=== PATIENT | male | born 1955 | race Caucasian/White ===

== ENCOUNTER → 2017-08-10 09:45 | Outpatient (CLI) | payer BC, SELFPAY ==
[2017-07-10 15:40] VITALS: BP 128/74; BMI 29.9
[2017-08-10 10:30] LABS: Hematocrit 27.5 % (40-54); Hemoglobin 8.9 g/dl (13.0-16.5); Mean Corp Hgb Conc 32.4 g/gl (32-36); Mean Corpuscular Hgb 30.7 pg (27.0-32.0); Mean Corpuscular Volume 94.8 fL (80-94); Mean Platelet Vol. 10.3 fl (6.2-12.0); Platelet Count 256 K/mm3 (150-450); RBC Distribution Width CV 14.3 % (11.6-14.6); RBC Distribution Width SD 46.4 fl (35.1-43.9); White Blood Count 8.4 K/mm3 (4.4-11.0)
[2017-08-10 10:49] LABS: Scan Indicated on CBC? Y/N NO
[2017-08-10 10:56] LABS: Albumin, Serum 3.2 g/dL (3.2-5.0); BUN 73 mg/dL (7-18); BUN/Creat Ratio 10.7 RATIO (10-20); Calcium,Total 8.2 mg/dL (8.5-10.1); Chloride 115 mmol/L (98-107); Creatinine, Serum 6.81 mg/dL (0.70-1.30); EST Glomerular Filtration Rate 9 mL/min (>60); Est Glom Filt Rate - Afr Amer 11 mL/min (>60); Ferritin 62 ng/mL (26-388); Glucose 170 mg/dL (74-106); Iron 33 ug/dL (65-175); Iron Binding Capacity,Total 285 ug/dL (250-450); Phosphorus 4.8 mg/dL (2.5-4.9); Potassium 4.5 mmol/L (3.5-5.1); Sodium Level 145 mmol/L (136-145)
[2017-08-12 09:55] LABS: PTHIN 173.5 pg/mL (18.4-80.1); Vitamin D,25 Hydroxy 30.8 ng/mL (19.95-100.01)
== END ==
PROVIDERS: Family Provider Family Medicine; PCP Family Medicine; Visit Provider Internal Medicine Nephrology
DX: N18.5 Chronic kidney disease, stage 5 (principal); E55.9 Vitamin D deficiency, unspecified; N25.81 Secondary hyperparathyroidism of renal origin; D63.8 Anemia in other chronic diseases classified elsewhere; E87.5 Hyperkalemia
CPT/HCPCS: 36415; 80069; 82306; 82728; 83540; 83550; 83970; 85027

== ENCOUNTER → 2017-08-19 08:47 | Outpatient (CLI) | payer BC, SELFPAY ==
[2017-08-19 08:54] VITALS: BP 178/83; PULSE 67; RESP 16; TEMP 36.7; O2SAT 97; BMI 30.8
== END ==
PROVIDERS: Family Provider Family Medicine; PCP Family Medicine; Visit Provider Internal Medicine Nephrology
DX: N18.5 Chronic kidney disease, stage 5 (principal); D50.9 Iron deficiency anemia, unspecified
CPT/HCPCS: 96365; J1756; J7050; A4216

== ENCOUNTER → 2017-08-26 07:48 | Outpatient (CLI) | payer BC, SELFPAY ==
[2017-08-26 08:04] VITALS: BP 187/85; PULSE 60; RESP 18; TEMP 36.8; O2SAT 97; BMI 31.2
== END ==
PROVIDERS: Family Provider Family Medicine; PCP Family Medicine; Visit Provider Internal Medicine Nephrology
DX: N18.5 Chronic kidney disease, stage 5 (principal); D50.9 Iron deficiency anemia, unspecified; D63.8 Anemia in other chronic diseases classified elsewhere
CPT/HCPCS: 96365; J1756; J7050; A4216

== ENCOUNTER → 2017-09-02 07:53 | Outpatient (CLI) | payer BC, SELFPAY ==
[2017-09-02 08:05] VITALS: BP 194/85; PULSE 59; RESP 18; TEMP 36.4; O2SAT 98; BMI 31.1
== END ==
PROVIDERS: Family Provider Family Medicine; PCP Family Medicine; Visit Provider Internal Medicine Nephrology
DX: N18.5 Chronic kidney disease, stage 5 (principal); D50.9 Iron deficiency anemia, unspecified; D63.8 Anemia in other chronic diseases classified elsewhere
CPT/HCPCS: 96365; J1756; J7050; A4216

== ENCOUNTER → 2017-09-09 07:52 | Outpatient (CLI) | payer BC, SELFPAY ==
[2017-09-09 08:20] VITALS: BP 153/70; PULSE 62; RESP 18; TEMP 36.6; O2SAT 98
== END ==
PROVIDERS: Family Provider Family Medicine; PCP Family Medicine; Visit Provider Internal Medicine Nephrology
DX: N18.5 Chronic kidney disease, stage 5 (principal); D50.9 Iron deficiency anemia, unspecified; D63.8 Anemia in other chronic diseases classified elsewhere
CPT/HCPCS: 96365; J1756; J7050; A4216

== ENCOUNTER 2017-09-10 05:46 | Outpatient (RCR) | payer BC, SELFPAY ==
[2017-09-10 07:54] LABS: Albumin, Serum 3.3 g/dL (3.2-5.0); BUN 88 mg/dL (7-18); BUN/Creat Ratio 11.7 RATIO (10-20); Calcium,Total 7.8 mg/dL (8.5-10.1); Chloride 112 mmol/L (98-107); Creatinine, Serum 7.54 mg/dL (0.70-1.30); EST Glomerular Filtration Rate 8 mL/min (>60); Est Glom Filt Rate - Afr Amer 10 mL/min (>60); Ferritin 303 ng/mL (26-388); Glucose 138 mg/dL (74-106); Iron 219 ug/dL (65-175); Iron Binding Capacity,Total 273 ug/dL (250-450); Phosphorus 5.9 mg/dL (2.5-4.9); Potassium 3.9 mmol/L (3.5-5.1); Sodium Level 144 mmol/L (136-145)
[2017-09-11 10:12] LABS: PTHIN 261.5 pg/mL (18.4-80.1)
== END 2017-09-10 06:00 | disposition home or self-care (01) ==
LOC: LAB 05:46
PROVIDERS: Family Provider Family Medicine; PCP Family Medicine; Visit Provider Internal Medicine Nephrology
DX: N18.5 Chronic kidney disease, stage 5 (principal); N25.81 Secondary hyperparathyroidism of renal origin; D63.8 Anemia in other chronic diseases classified elsewhere
CPT/HCPCS: 36415; 80069; 82728; 83540; 83550; 83970; J3010

== ENCOUNTER 2017-09-11 09:59 | Day surgery (SDC) | payer BC, SELFPAY ==
--- NOTE | 2017-09-09 13:30 | EKG12_ITS ---
Test Reason : PREOP Blood Pressure : / mmHG Vent. Rate : 068 BPM Atrial Rate : 068 BPM P-R Int : 162 ms QRS Dur : 098 ms QT Int : 464 ms P-R-T Axes : 057 030 056 degrees QTc Int : 493 ms Normal sinus rhythm Nonspecific T wave abnormality Prolonged QT Abnormal ECG Confirmed by LEONARDO LYNCH, AMPARO ([id number]), digital editor LEDY SAMPSON ([id number]) on 09/10/2017 2:23:47 PM Referred By: Benjamín Espino Confirmed By:AMPARO PATTERSON MD
[2017-09-09 15:07] LABS: Hematocrit 27.7 % (40-54); Hemoglobin 9.1 g/dl (13.0-16.5); Mean Corp Hgb Conc 32.9 g/gl (32-36); Mean Corpuscular Hgb 30.6 pg (27.0-32.0); Mean Corpuscular Volume 93.3 fL (80-94); Mean Platelet Vol. 10.9 fl (6.2-12.0); Platelet Count 220 K/mm3 (150-450); RBC Distribution Width CV 13.1 % (11.6-14.6); RBC Distribution Width SD 43.8 fl (35.1-43.9); Red Blood Count 2.97 M/mm3 (4.6-6.2); White Blood Count 7.5 K/mm3 (4.4-11.0)
[2017-09-09 15:11] LABS: Scan Indicated on CBC? Y/N NO
[2017-09-09 15:30] LABS: Anion Gap 15 (5-15); BUN 90 mg/dL (7-18); BUN/Creat Ratio 11.9 RATIO (10-20); Calcium,Total 7.8 mg/dL (8.5-10.1); Chloride 111 mmol/L (98-107); Creatinine, Serum 7.55 mg/dL (0.70-1.30); EST Glomerular Filtration Rate 8 mL/min (>60); Est Glom Filt Rate - Afr Amer 9 mL/min (>60); Glucose 147 mg/dL (74-106); Potassium 3.9 mmol/L (3.5-5.1); Sodium Level 145 mmol/L (136-145)
[2017-09-11] VITALS (7 sets, daily range): BP systolic 148–168; BP diastolic 66–80; PULSE 63; RESP 16; TEMP 36.4–37.2; O2SAT 95–100; BMI 30.3
[2017-09-11 10:51] LABS: Bedside Glucose 125 mg/dL (70-110)
--- NOTE | 2017-09-11 11:55 | PCM.DC.FIST ---
Discharge Diet: Renal Diet Discharge Activity: May Not Drive - for 2-3 days or while taking narcotic pain medications., May Shower, May Take a Tub Bath - in 5 days. Lifting Restrictions: 5 pounds Keep extremity elevated above heart level: - - Keep arm elevated above the heart level for 3 days. Additional Activity Instructions:: Exercise hand vigorously with a stress ball. Call your doctor if your incision/area has: Continuous Slow Oozing, Sudden Increased Bleeding - apply pressure and call your doctor., Increased Pain/ Swelling, Increased Redness, Foul Smelling Discharge Call your doctor if you observe: Fever of 101 or Higher Suture Line Care: Avoid Pulling/Pushing, Avoid Pinching/Bending Cleanse incision/area with: Keep Dressing Clean & Dry Additional Dressing/Incision Instructions:: Change or remove dressing in two day. May protect with a gauze bandaid. Allergies/Adverse Reactions: Allergies metformin Allergy (Verified 09/09/17 11:45) Itching Sulfa (Sulfonamide Antibiotics) Allergy (Verified 09/09/17 11:45) Swelling Medications to take at Discharge Insulin Glargine [Lantus SoloStar Pen] 28 units SC DAILY 04/07/13 calcitriol 0.25 mcg capsule 0.25 mcg PO QDAY 07/10/17 finasteride 5 mg tablet 5 mg PO QDAY 07/10/17 furosemide 20 mg tablet 40 mg PO BID 07/10/17 labetalol 100 mg tablet 400 mg PO BID 07/10/17 losartan 50 mg tablet 100 mg PO QDAY 07/10/17 rosuvastatin 10 mg tablet 10 mg PO QDAY 07/10/17 Ergocalciferol [Vitamin D] 50,000 unit PO X1 08/19/17 Insulin Lispro [Humalog] 10 - 12 unit SC BID 08/19/17 Iron Polysaccharide Complex [Ferrex 150] 150 mg PO DAILYCM 08/19/17 Iron Sucrose Complex [Venofer] 100 mg IV X1 09/09/17 Nifedipine [Nifedipine ER] 60 mg PO DAILY 09/09/17 Primary Care Physician: Roman Espino III, MD [Primary Care Provider] - Please Follow Up With: Benjamín Espino MD - [phone] When: Call to make an appointment for suture removal and follow up in 10 days.
[2017-09-11] MEDS: Cefazolin 2 GM in 0.9% Normal Saline 100 ML IV (11:56)
[2017-09-11] MEDS: Bupivacaine Mpf 0.5% 30 ML VIAL (12:21)
--- NOTE | 2017-09-11 13:45 | OP.PCM_ITS ---
Problem List (1) Renal failure Status: Acute Qualifiers: Renal failure chronicity: chronic Chronic kidney disease stage: stage 4 ( severe) Qualified Code(s): N18.4 - Chronic kidney disease, stage 4 (severe) Report of Operation Date of Procedure: 09/11/17 Pre-Operative Diagnosis: Stage IV renal insufficiency Post-Operative Diagnosis: Same Surgery/Procedure Performed:: Left forearm radiocephalic arteriovenous fistula creation Description of Surgical Findings:: Timeout and informed consent was obtained. A 62-year-old gent was taken out from. He was placed on the table. He initially underwent monitored anesthesia care. Due to restlessness that was eventually converted to a general anesthesia. Left upper extremity was sterilely prepped and draped. Ancef 2 g given intravenous preoperatively. 1% lidocaine mixed 50-50 with 0.5% Marcaine was used as local anesthetic. Total 10 cc was used. Ultrasound was used to map the course of the left forearm cephalic vein. Local was instilled. A transverse oblique incision was created. Sharp blunt dissection was used to dissect free the cephalic vein. It was partially mobilized to allow for more superficial elevation. Then sharp and blunt dissection was used to identify the radial artery. Circumferential control was obtained. The patient received also needs of heparin IV. After adequate circling time peripheral vascular clamps are placed on the radial artery and 11 blade was used to make an arteriotomy which was extended with Dugan scissors. The vein was secured distally with a Hemoclip and then it was spatulated to length. A end-to-side anastomosis was created with a running 7-0 Prolene. Prior to completion there appear to be good antegrade and retrograde flow. The anastomosis was completed with good positional lie. There was a good pulse thrill and bruit. Hemostasis was intact. The wound was closed with deep layer of interrupted 4-0 Vicryl. Skin edges approximately running septic or 4-0 Monocryl. Steri-Strips Telfa tape dressings applied. Sponge instrument and needle counts were reported to the surgeon to be correct. Blood loss minimal. No apparent complications. The hand was viable at the completion. He was taken to the recovery area in satisfactory condition without apparent complication. Progress and prognosis are felt to be good. Benjamín Espino M.D., F.A.C.S. Type of Anesthesia:: General Anesthesiologist: Nikolas Morales
[2017-09-11 14:20] LABS: Bedside Glucose 109 mg/dL (70-110)
== END 2017-09-11 15:44 | disposition home or self-care (01) ==
LOC: SDC 09:59 → AC 10:00
PROVIDERS: Family Provider Family Medicine; PCP Family Medicine; Visit Provider Surgery
PROC: (CPT 36818; principal; 2017-09-11 11:45)
DX: I12.0 Hypertensive chronic kidney disease with stage 5 chronic kidney disease or end stage renal disease (principal); E11.22 Type 2 diabetes mellitus with diabetic chronic kidney disease; N18.6 End stage renal disease; D64.9 Anemia, unspecified; R45.1 Restlessness and agitation; Z99.2 Dependence on renal dialysis; Z79.4 Long term (current) use of insulin; Z79.899 Other long term (current) drug therapy; Z87.891 Personal history of nicotine dependence
CPT/HCPCS: 01780; 36818; 36415; 80048; 82962; 85027; 93005; J7120

== ENCOUNTER → 2017-09-16 07:55 | Outpatient (CLI) | payer BC, SELFPAY ==
[2017-09-16 08:08] VITALS: BP 160/73; PULSE 58; RESP 18; TEMP 36.6; O2SAT 97
== END ==
PROVIDERS: Family Provider Family Medicine; PCP Family Medicine; Visit Provider Internal Medicine Nephrology
DX: N18.5 Chronic kidney disease, stage 5 (principal); D50.9 Iron deficiency anemia, unspecified; D63.8 Anemia in other chronic diseases classified elsewhere
CPT/HCPCS: 96365; J1756; J7050; A4216

== ENCOUNTER 2017-09-30 06:07 | Day surgery (SDC) | payer BC, SELFPAY ==
--- NOTE | 2017-09-30 | COLBX_PTH ---
PATIENT: RODRI HECK LOC: EN U#:[id number] AGE/SX: 62/M ROOM: RE09/30/[address]: Dr. Benjamín Epsino MD : [id number] BED: DIS: 09/30/2017 SPEC #: [id number] RECD: 09/30/17 11:41 STATUS: JOSIE RAYMOND #: [id number] MOE: 09/30/17 00:[address]: Benjamín Espino DEPT: SURGICAL PATHOLOGY RECD BY: Juan Major ENTERED: 09/30/17 11:42 SP TYPE: COLON BX RAFY DR: Dr. Roman Espino III, MD Tissues: A - Transverse colon B - SPLENIC FLEXURE Procedures: Surgery Specimen Level IV HEADER OPERATION: Colonoscopy with biopsy and polypectomy PRE-OP DIAGNOSIS: Screening TISSUE SUBMITTED: A ? Proximal transverse polyp biopsy, B ? Splenic flexure polyp MICROSCOPIC DIAGNOSIS A. Proximal transverse polyp, biopsy: Consistent with inflammatory polyp. B. Splenic flexure polyp, biopsy: Tubular adenoma. BRI:ignacia 10/01/17 MICROSCOPIC DESCRIPTION Slides are reviewed. GROSS DESCRIPTION A - Received in fixative is one container labeled with the patient's name and designated proximal transverse polyp biopsy. The specimen consists of two irregular fragments of light gamble soft tissue that in aggregate measure 0.4 x 0.3 x 0.1 cm. The specimen is totally submitted in one cassette. B - Received in fixative is one container labeled with the patient's name and designated splenic flexure polyp. The specimen consists of two irregular fragments of light gamble soft tissue that in aggregate measure 0.7 x 0.3 x 0.1 cm. The specimen is totally submitted in one cassette. / BRI:ignacia 09/30/17 TC:1 CPT: 24459 x2
[2017-09-30 06:27] VITALS: BP 156/66; PULSE 57; RESP 16; TEMP 36.9; O2SAT 100; BMI 30.7
[2017-09-30 06:35] LABS: Bedside Glucose 111 mg/dL (70-110)
--- NOTE | 2017-09-30 07:57 | PCM.OPRPT ---
Problem List (1) Screening for intestinal cancer Status: Acute Report of Operation Date of Procedure: 09/30/17 Pre-Operative Diagnosis: Screening for intestinal cancer Post-Operative Diagnosis: Small sessile polyp of the proximal transverse colon. 9 mm sessile polyp of the splenic flexure. Scattered sigmoid diverticulosis Surgery/Procedure Performed:: Colonoscopy with cold forcep and hot snare polypectomy Description of Surgical Findings:: Timeout and informed consent was obtained. 62-year-old gent was taken to the endoscopy suite. He has never had a previous colonoscopy. He was placed in left lateral decubitus position. Because of his renal failure monitored anesthesia care was provided. Digital rectal exam demonstrated a moderate grade 2 internal hemorrhoids. 2+ smooth prostate. No mass lesions. Normal anal tone. Flexible colonoscope inserted in the rectum advanced with tortuous sigmoid colon was then advanced through the transverse colon with some transabdominal pressure was advanced to the cecum. Bowel prep was good. The cecum ileocecal valve area was nicely achieved. The scope was carefully withdrawn from the cecum ascending colon. In the proximal transverse colon there is a small 6 mm diameter polyp. This was sampled and eradicated with cold forceps. The scope was advanced and back through the remainder of the transverse colon and what was felt to be the splenic flexure a 9 mm sessile polyp was identified. A hot snare was used to resect this polyp. The base was treated with a hemostatic clip. The scope was further withdrawn. Scattered diverticulosis of the sigmoid colon noted. No evidence of acute pathology. The scope was withdrawn to the rectum retroflex the anorectal verge inspected grade 2 hemorrhoids noted no active bleeding. The scope was placed back in antegrade viewing position and excess fluid and air was aspirated free. The procedure was pleased with patient tolerating it well. Impression Sessile polyp of the proximal transverse colon Sessile polyp of the splenic flexure Scattered sigmoid diverticulosis Grade 2 internal hemorrhoids The patient will be notified of pathology results as they become available.. Follow-up colonoscopy anticipated in 3 years. Cc: Dr. Roman Espino, III The procedure started 0733. The cecum was reached at 0741.51. Procedure was completed at 0752.59 Benjamín Espino M.D., F.A.C.S. Type of Anesthesia:: MAC Anesthesiologist: Sadia Kathleen
[2017-09-30 08:00] VITALS: BP 125/62; BP 156/66; PULSE 61; RESP 16; TEMP 36.9; O2SAT 97
[2017-09-30 08:04] VITALS: BP 130/55; BP 156/66; PULSE 61; RESP 16; O2SAT 98
[2017-09-30 08:10] VITALS: BP 148/72; BP 156/66; PULSE 61; RESP 16; O2SAT 99
[2017-09-30 08:15] VITALS: BP 147/72; BP 156/66; PULSE 61; RESP 16; TEMP 37.3; O2SAT 98
[2017-09-30 08:40] VITALS: BP 156/66
== END 2017-09-30 08:52 | disposition home or self-care (01) ==
LOC: EN 06:08 → AC 06:09
PROVIDERS: Family Provider Family Medicine; PCP Family Medicine; Visit Provider Surgery
PROC: 0DJD8ZZ Inspection of Lower Intestinal Tract, Via Natural or Artificial Opening Endoscopic (ICD-10-PCS; CPT 45378; principal; 2017-09-30 07:10)
DX: Z12.11 Encounter for screening for malignant neoplasm of colon (principal); D12.3 Benign neoplasm of transverse colon; K63.5 Polyp of colon; K57.30 Diverticulosis of large intestine without perforation or abscess without bleeding; K64.1 Second degree hemorrhoids; I12.9 Hypertensive chronic kidney disease with stage 1 through stage 4 chronic kidney disease, or unspecified chronic kidney disease; E10.22 Type 1 diabetes mellitus with diabetic chronic kidney disease; N18.4 Chronic kidney disease, stage 4 (severe); Z99.2 Dependence on renal dialysis; E10.65 Type 1 diabetes mellitus with hyperglycemia; E78.00 Pure hypercholesterolemia, unspecified; Z79.4 Long term (current) use of insulin; Z79.899 Other long term (current) drug therapy
CPT/HCPCS: 45380; 45385; 82962; 88305; J7120

== ENCOUNTER → 2017-10-07 05:48 | Outpatient (CLI) | payer OTHER, SELFPAY ==
[2017-10-07 08:07] LABS: AST(SGOT) 17 U/L (15-37); Alanine Aminotransfer ALT/SGPT 15 U/L (16-61); Albumin, Serum 3.5 g/dL (3.2-5.0); Alkaline Phosphatase 72 U/L (45-117); Anion Gap 11 (5-15); BUN 75 mg/dL (7-18); BUN/Creat Ratio 9.7 RATIO (10-20); Calcium,Total 8.5 mg/dL (8.5-10.1); Chloride 111 mmol/L (98-107); Cholesterol 126 mg/dL (200); Creatinine, Serum 7.77 mg/dL (0.70-1.30); EST Glomerular Filtration Rate 8 mL/min (>60); Est Glom Filt Rate - Afr Amer 9 mL/min (>60); Globulin 3.5 g/dL (2.2-4.2); Glucose 113 mg/dL (74-106); High Density Lipoprotein 41 mg/dL; Potassium 4.6 mmol/L (3.5-5.1); Sodium Level 145 mmol/L (136-145); Triglycerides 84 mg/dL; Very Low Density Lipoprotein 17 mg/dL (5-40)
[2017-10-07 09:00] LABS: Vitamin D,25 Hydroxy 49.4 ng/mL (29.95-100.01)
[2017-10-07 10:02] LABS: Hemoglobin A1c 6.3 % (4.2-6.3)
== END ==
PROVIDERS: Family Provider Family Medicine; PCP Family Medicine; Visit Provider Internal Medicine Endocrinology, Diabetes & Metabolism
DX: E11.39 Type 2 diabetes mellitus with other diabetic ophthalmic complication (principal); E11.65 Type 2 diabetes mellitus with hyperglycemia
CPT/HCPCS: 36415; 80053; 80061; 82306; 83036

== ENCOUNTER 2017-10-30 08:23 | Day surgery (SDC) | payer OTHER, SELFPAY ==
[2017-10-23 07:42] LABS: Hematocrit 29.7 % (40-54); Hemoglobin 9.6 g/dl (13.0-16.5); Mean Corp Hgb Conc 32.3 g/gl (32-36); Mean Corpuscular Hgb 30.2 pg (27.0-32.0); Mean Corpuscular Volume 93.4 fL (80-94); Platelet Count 213 K/mm3 (150-450); RBC Distribution Width CV 13.5 % (11.6-14.6); RBC Distribution Width SD 44.5 fl (35.1-43.9); Red Blood Count 3.18 M/mm3 (4.6-6.2); White Blood Count 8.6 K/mm3 (4.4-11.0)
[2017-10-23 07:45] LABS: Scan Indicated on CBC? Y/N NO
[2017-10-23 08:29] LABS: Albumin, Serum 3.2 g/dL (3.2-5.0); BUN 104 mg/dL (7-18); BUN/Creat Ratio 11.1 RATIO (10-20); Calcium,Total 8.3 mg/dL (8.5-10.1); Chloride 110 mmol/L (98-107); Creatinine, Serum 9.37 mg/dL (0.70-1.30); EST Glomerular Filtration Rate 6 mL/min (>60); Est Glom Filt Rate - Afr Amer 7 mL/min (>60); Glucose 109 mg/dL (74-106); Phosphorus 6.7 mg/dL (2.5-4.9); Potassium 4.5 mmol/L (3.5-5.1); Sodium Level 145 mmol/L (136-145)
[2017-10-23 09:08] LABS: PTHIN 164.7 pg/mL (18.4-80.1)
[2017-10-30 08:36] VITALS: BMI 32.3
--- NOTE | 2017-10-30 10:39 | OP.PCM_ITS ---
Problem List (1) Problem with dialysis access Status: Acute Qualifiers: Encounter type: subsequent encounter Qualified Code(s): T82.898D - Other specified complication of vascular prosthetic devices, implants and grafts, subsequent encounter Report of Operation Date of Procedure: 10/30/17 Pre-Operative Diagnosis: Failure to mature left forearm radiocephalic arteriovenous hemodialysis fistula Post-Operative Diagnosis: Left forearm radiocephalic arteriovenous fistula with proximal fistula venous stenosis Surgery/Procedure Performed:: Left upper extremity fistulogram with 5 x 80 mm drug coated balloon Lutonix proximal fistula venous angioplasty Description of Surgical Findings:: Timeout and informed consent was obtained. 62-year-old gentleman was taken to the special procedures lab placed on the table. The left upper extremity was sterilely prepped and draped. Ultrasound was used to identify the cephalic vein in the proximal forearm. Under ultrasound guidance 2% lidocaine was instilled. Micropuncture needle inserted retrograde with flow. Micropuncture wire inserted. 6 Maltese short sheath was inserted. Then using an 035 angled Glidewire and a 4 Maltese angled glide cath tediously [place] was gained to the radial artery proximal to the fistula. Using carbon dioxide 50 g was obtained. This demonstrated moderate to proximal arterial stenosis at the anastomosis and diffuse diminutive vein in the proximal 3-4 cm of the fistula. So then I replaced the Glidewire and removed the glide cath. I placed a 5 x 80 mm blue tonics drug-coated balloon and perform balloon angioplasty for 3 minutes. Subsequently removed the balloon and replaced a glide cath. Final fistulogram was obtained with carbon dioxide now demonstrated dramatic improvement in the arterial anastomosis and in the proximal portion of the fistula with wide open flow. Using carbon dioxide the fistulogram was pursued for the upper arm and chest area. He tired procedure well catheters wires were removed the sheath was removed and a U suture of 4-0 nylon was placed. Hemostasis was intact there were no apparent complications and he tolerated it well. Images demonstrate a left forearm radiocephalic arteriovenous fistula. There is arterial stenosis and proximal venous diminutive vein. There is good outflow mostly in the upper arm through the basilic vein with good central venous outflow. Subsequent to the angioplasty there is improvement in the arterial anastomosis and diameter of the proximal portion of the cephalic vein/ fistula. Impression Successfully treated left forearm radiocephalic arteriovenous fistula with improved inflow and proximal fistula diameter Benjamín Espino M.D., F.A.C.S. Type of Anesthesia:: IV Sedation
== END 2017-10-30 23:59 | disposition home or self-care (01) ==
LOC: CLSP 08:23
PROVIDERS: Family Provider Family Medicine; PCP Family Medicine; Visit Provider Surgery
DX: T82.898A Other specified complication of vascular prosthetic devices, implants and grafts, initial encounter (principal); Y82.8 Other medical devices associated with adverse incidents; Z79.899 Other long term (current) drug therapy; Z79.4 Long term (current) use of insulin; E78.00 Pure hypercholesterolemia, unspecified; E11.9 Type 2 diabetes mellitus without complications; I10 Essential (primary) hypertension
CPT/HCPCS: 36415; 36902; 76937; 80069; 83970; 85027; 99152; 99153; Q9967; C1725; C1769

== ENCOUNTER → 2017-10-31 09:46 | Outpatient (CLI) | payer OTHER, SELFPAY ==
[2017-11-01 11:29] LABS: HEPATITIS B SURFACE AG Negative (Negative); Hep B Surface Antibodies Non Reactive (.)
== END ==
PROVIDERS: Family Provider Family Medicine; PCP Family Medicine; Visit Provider Internal Medicine Nephrology
DX: N18.6 End stage renal disease (principal)
CPT/HCPCS: 36415; 86706; 87340

== ENCOUNTER 2017-10-31 15:05 | Inpatient (IN) | payer OTHER, SELFPAY ==
[2017-10-31] VITALS (8 sets, daily range): BP systolic 97–155; BP diastolic 45–73; PULSE 41–70; RESP 12–18; TEMP 36.2–36.8; O2SAT 94–97; BMI 32.8; BMI 32.9
--- NOTE | 2017-10-31 15:22 | RAD_ITS ---
STUDY: X-RAY CHEST REASON FOR EXAM: Male, 62 years old. HYPOTENSION, WEAKNESS, STAGE 4 KIDNEY DISEASE, JUST HAD A BALLOON AND FISTULA PLACED YESTERDAY PER TECHNIQUE: Single frontal view of the chest. COMPARISON: 06.06.15 FINDINGS: Chronic appearing increased interstitial lung markings. There is no demonstrated pleural abnormality. Enlarged heart size. Normal mediastinum and nader. Normal visualized pulmonary arteries. There is atherosclerotic calcification of the aortic arch with tortuosity. There are diffuse degenerative changes of the visualized thoracic spine. There is degenerative osteoarthritis of the bilateral shoulders. There is no demonstrated abnormality of the visualized soft tissue structures of the upper abdomen. RAD/Chest 1 View (Portable) IMPRESSION: There are no acute findings. Electronically Signed: Corky Buckley MD at 16:53 EDT , Service support ,
--- NOTE | 2017-10-31 15:22 | EKG12_ITS ---
Test Reason : BRADYCARIDA Blood Pressure : / mmHG Vent. Rate : 039 BPM Atrial Rate : 039 BPM P-R Int : 144 ms QRS Dur : 096 ms QT Int : 534 ms P-R-T Axes : -71 031 024 degrees QTc Int : 429 ms Unusual P axis, possible ectopic atrial bradycardia Abnormal ECG Confirmed by SHARMAINE MENDEZ ([id number]), content editor LEDY SAMPSON ([id number]) on 11/05/2017 2:46:05 PM Referred By: FEDE Confirmed By:SHARMAINE MENDEZ
--- NOTE | 2017-10-31 15:25 | ED.VISSUMM ---
- ER Visit Summary Date of Service: 10/31/17 Chief Complaint: Low blood pressure History of Present Illness: The patient is a 62 M sent as an outpatient from both nephrology and PCP office for low blood pressure. Patient history of chronic kidney disease, and preparations for dialysis. History of diabetes and hypertension, anemia, chronic kidney disease. Fistula left arm placed September 11. Yesterday had a balloon placed by Dr. Espino. Patient states had a referral seen by cardiology, Dr. Nation at 8 days ago for planned clearance for eventual renal transplant. States his blood pressure was systolic 170s. Had his nifedipine increased from 60-90 mg a week ago. Last dose taken this morning. While at the office, blood pressures in the 90s. They did state heart rate was low but unclear what the number was. He complains of lightheaded symptoms. No syncopal episodes. No chest pains. Complains of mild dyspnea. No recent vomiting or diarrhea. Denies any dizzy sensations. Normal urine output per patient. Physical Examination: General: Alert and oriented ?3, no acute distress HEENT: Normocephalic, atraumatic. Moist mucosa membranes. Mild pale conjunctiva Neck: supple, nontender. Cardiovascular: Regular bradycardic rate and rhythm, no murmurs Respiratory: Normal breath sounds, symmetric, no distress Abdomen: Soft, nontender, nondistended Extremities: Nontender, 1+ symmetric lower extremity edema, pulses intact ?4 Neuro: no focal neurological deficits. Test Results: EKG: Sinus rate of 39, no ST changes. T-wave flattening at 3 and aVF. No AV blocks noted. Hemoglobin 9.3. Creatinine 9.39, BUN 104. Hemolyzed potassium 5.6, recheck 5.2. Chest x-ray negative. Emergency Department Course and Treatment: Patient with sinus bradycardia on EKG. Recently placed on the monitor, no interventions, steady increase in heart rate and blood pressure increase on his nifedipine which is renally excreted. Also on labetalol.. Concerns for likely nifedipine. Chronic anemia along with chronic elevation of creatinine and BUN. Symptomatic bradycardia, I do feel the benefit from admission and monitoring. I did speak with his storyboard artist, Dr. Rodriguez, updated, she is more concerned of possible labetalol. She did request I speak with Dr. Espino, the surgeon if you be available to place a Vas-Cath for dialysis with his history and plans. I did speak with him, he will like patient n.p.o. at midnight, he will check surgery scheduled tomorrow for placement if able. This was relayed to hospitalist, Dr. Vail who will evaluate for admission. Treatment Plan: [] Disposition: Admission Impression: 1. Symptomatic bradycardia 2. Chronic anemia 3. Chronic kidney disease This note was generated with Flowboard dictation software. It may contain incorrect words, spelling, and punctuation that were not noted in review of the chart prior to signing ED Disposition - Plan for ED Patient: Disposition: Acute Care Hospital [facility] Chief Complaint: Hypotension Diagnosis: Symptomatic bradycardia, Chronic anemia, Chronic kidney disease
--- NOTE | 2017-10-31 15:28 | ED.DCSUM_ITS ---
- ER Visit Summary Date of Service: 10/31/17 Chief Complaint: Low blood pressure History of Present Illness: The patient is a 62 M sent as an outpatient from both nephrology and PCP office for low blood pressure. Patient history of chronic kidney disease, and preparations for dialysis. History of diabetes and hypertension, anemia, chronic kidney disease. Fistula left arm placed September 11. Yesterday had a balloon placed by Dr. Espino. Patient states had a referral seen by cardiology, Dr. Nation at 8 days ago for planned clearance for eventual renal transplant. States his blood pressure was systolic 170s. Had his nifedipine increased from 60-90 mg a week ago. Last dose taken this morning. While at the office, blood pressures in the 90s. They did state heart rate was low but unclear what the number was. He complains of lightheaded symptoms. No syncopal episodes. No chest pains. Complains of mild dyspnea. No recent vomiting or diarrhea. Denies any dizzy sensations. Normal urine output per patient. Physical Examination: General: Alert and oriented ?3, no acute distress HEENT: Normocephalic, atraumatic. Moist mucosa membranes. Mild pale conjunctiva Neck: supple, nontender. Cardiovascular: Regular bradycardic rate and rhythm, no murmurs Respiratory: Normal breath sounds, symmetric, no distress Abdomen: Soft, nontender, nondistended Extremities: Nontender, 1+ symmetric lower extremity edema, pulses intact ?4 Neuro: no focal neurological deficits. Test Results: EKG: Sinus rate of 39, no ST changes. T-wave flattening at 3 and aVF. No AV blocks noted. Hemoglobin 9.3. Creatinine 9.39, BUN 104. Hemolyzed potassium 5.6, recheck 5.2. Chest x-ray negative. Emergency Department Course and Treatment: Patient with sinus bradycardia on EKG. Recently placed on the monitor, no interventions, steady increase in heart rate and blood pressure increase on his nifedipine which is renally excreted. Also on labetalol.. Concerns for likely nifedipine. Chronic anemia along with chronic elevation of creatinine and BUN. Symptomatic bradycardia, I do feel the benefit from admission and monitoring. I did speak with his electronics lead, Dr. Rodriguez, updated, she is more concerned of possible labetalol. She did request I speak with Dr. Espino, the surgeon if you be available to place a Vas-Cath for dialysis with his history and plans. I did speak with him , he will like patient n.p.o. at midnight, he will check surgery scheduled tomorrow for placement if able. This was relayed to hospitalist, Dr. Vail who will evaluate for admission. Treatment Plan: [] Disposition: Admission Impression: 1. Symptomatic bradycardia 2. Chronic anemia 3. Chronic kidney disease This note was generated with Ed[employer]ourage dictation software. It may contain incorrect words, spelling, and punctuation that were not noted in review of the chart prior to signing ED Disposition - Plan for ED Patient: Disposition: Acute Care Hospital [facility] Chief Complaint: Hypotension Diagnosis: Symptomatic bradycardia, Chronic anemia, Chronic kidney disease
[2017-10-31 15:56] LABS: Hematocrit 30.3 % (40-54); Hemoglobin 9.3 g/dl (13.0-16.5); Mean Corp Hgb Conc 30.7 g/gl (32-36); Mean Corpuscular Hgb 29.4 pg (27.0-32.0); Mean Corpuscular Volume 95.9 fL (80-94); Red Blood Count 3.16 M/mm3 (4.6-6.2); White Blood Count 8.9 K/mm3 (4.4-11.0)
[2017-10-31 15:57] LABS: Mean Platelet Vol. 9.9 fl (6.2-12.0); Platelet Count 222 K/mm3 (150-450); RBC Distribution Width CV 13.9 % (11.6-14.6); RBC Distribution Width SD 48.1 fl (35.1-43.9)
[2017-10-31 15:59] LABS: Basophil% 0.2 % (0-1); Differential Indicated SCAN CRITERIA MET; Eosinophils% 2.4 % (0-5); Lymphocyte % 11.3 % (19-41); Monocyte% 8.4 % (0-10); Neutrophil % 77.5 % (47-70); POSITIVE COUNT NO; POSITIVE DIFFERENTIAL NO; POSITIVE MORPHOLOGY YES
[2017-10-31 16:00] LABS: Absolute Lymphocyte Count 1.01 X10^3/ul (0.83-4.51); Absolute Neutrophil Count 6.9 X10^3/uL (2.0-7.7); Basophil# 0.02 X10^3/uL; Eosinophil# 0.21 X10^3/uL; Lymphocyte # 1.01 X10^3/ul (4.0); Monocyte# 0.75 X10^3/uL; Neutrophil # 6.91 X10^3/uL (2.7-7.7)
[2017-10-31 16:25] LABS: Anisocytosis RARE; Macrocytosis RARE; Platelet Estimate ADEQUATE (ADEQ)
[2017-10-31 16:44] LABS: Anion Gap 12 (5-15); BUN 104 mg/dL (7-18); BUN/Creat Ratio 11.1 RATIO (10-20); Chloride 106 mmol/L (98-107); Creatinine, Serum 9.39 mg/dL (0.70-1.30); EST Glomerular Filtration Rate 6 mL/min (>60); Est Glom Filt Rate - Afr Amer 7 mL/min (>60); Estimated Creatinine Clearance 11.77 ml/min; Glucose 214 mg/dL (74-106); Magnesium 1.8 mg/dL (1.6-2.6); Potassium 5.6 mmol/L (3.5-5.1); Sodium Level 140 mmol/L (136-145)
--- NOTE | 2017-10-31 16:49 | ED.RN ---
notified Dr. Molina of critical labs results.
[2017-10-31 17:13] LABS: Potassium 5.2 mmol/L (3.5-5.1)
--- NOTE | 2017-10-31 17:20 | PCM.HP.STD ---
Problem List (1) Problem with dialysis access Status: Chronic Qualifiers: (2) Screening for intestinal cancer Status: Resolved (3) History of angioplasty of peripheral vessel Status: Chronic (4) Renal failure Status: Chronic Qualifiers: Chronic kidney disease stage: stage 4 (severe) (5) Essential hypertension Status: Chronic (6) Type II diabetes mellitus Status: Chronic (7) Hypercholesterolemia Status: Chronic (8) Anemia Status: Chronic Qualifiers: Anemia type: due to chronic kidney disease (9) Open fracture at right wrist or hand level Status: Resolved History of Present Illness Date of Admission: 10/31/17 Chief Complaint: Hypotension, bradycardia, dizziness, weakness. The patient is a 62 year old M who presents to the emergency room due to low blood pressure which was noted during office visit today with patient's hotel housekeeper, Dr. Rodriguez. Patient states he has not felt well today and complains of dizziness, lightheadedness, generalized weakness. Patient has chronic kidney disease stage IV and is currently undergoing evaluation for renal transplant. Patient had a left forearm AV fistula placed 09/11/[address] Espino. He then had left upper extremity fistulogram with balloon angioplasty again, with Dr. Espino 10/30/17. Patient states his blood pressure is usually elevated and his nifedipine was increased approximately a week ago from 60-90 mg. A waiter/waitress cabin class, Dr. Nation at made this adjustment who patient is seeing for pre-transplant evaluation/clearance. His blood pressure during office visit today was noted to be in the 90s systolically. Patient's other chronic medical history includes hypertension, hyperlipidemia, type 2 diabetes mellitus, anemia of chronic disease, BPH status post TURP. Past Medical History Past Medical History (Chronic Problems): Chronic Problems (Last Reviewed 10/31/17 @ 14:38 by Ira Yusuf) Problem with dialysis access (Chronic) History of angioplasty of peripheral vessel (Chronic) Renal failure (Chronic) Essential hypertension (Chronic) Type II diabetes mellitus (Chronic) Hypercholesterolemia (Chronic) Anemia (Chronic) Allergies metformin Allergy (Verified 10/31/17 14:40) Itching Sulfa (Sulfonamide Antibiotics) Allergy (Verified 10/31/17 14:40) Swelling Home Medications: Ambulatory Orders Medication Instructions Recorded Insulin Glargine [Lantus SoloStar 26 units SC DAILY 04/07/13 Pen] calcitriol 0.25 mcg capsule 0.5 mcg PO DAILY 07/10/17 finasteride 5 mg tablet 5 mg PO DAILY 07/10/17 furosemide 20 mg tablet 40 mg PO BID 07/10/17 labetalol 100 mg tablet 400 mg PO BID 07/10/17 losartan 50 mg tablet 100 mg PO DAILY 07/10/17 rosuvastatin 10 mg tablet 10 mg PO DAILY 07/10/17 Ergocalciferol [Vitamin D] 50,000 unit PO QMONTH 08/19/17 Insulin Lispro [Humalog] 10 - 12 unit SC BID 08/19/17 Iron Polysaccharide Complex 150 mg PO DAILYCM 08/19/17 [Ferrex 150] Nifedipine [Nifedipine ER] 60 mg PO DAILY 09/09/17 Calcium Acetate [Phoslo Gel Cap] 1,334 mg PO TIDCM 09/16/17 Surgical History: - - TURP, ORIF right radius/ulna, 09/11/17 L AV fistula, 10/30/17 LUE fistulagram w/ balloon angioplasty. Psychiatric History: No pertinent psych hx Lives: Spouse/ Significant Other Smoking Status: Never smoker Alcohol: Rare Drugs: None - *Family History Maternal History Items: Cancer - Lung, Diabetes, Heart Disease, Hypertension Paternal History Items: Cancer - Pancreatic, Diabetes Review of Systems Constitutional: Reports: Fatigue. Denies: Chills, Fever, Weight Change HEENT: Denies: Head Aches, Sinus Congestion, Sinus Drainage Cardiovascular: Reports: Edema - BLLE, Light Headedness. Denies: Chest Pain, Palpitations, Syncope Respiratory: Denies: Cough, Shortness of breath at rest, Sputum production Gastrointestinal: Denies: Abdominal Pain, Nausea, Vomiting Genitourinary: Denies: Dysuria Musculoskeletal: Denies: Joint Pain, Joint Tenderness Skin: Denies: Rash, Wounds Neurological: Denies: Numbness, Tingling, Focal weakness Psychiatric: Denies: Anxiety, Depression, Homicidal Ideations, Suicidal Ideations Hematologic/ Lymphatic: Denies: Easy Bruising, Easy Bleeding VTE Information - Inpt Only VTE Present on Admission: No VTE Mechan Device Prophylaxis: None VTE Pharm Prophylaxis ordered?: Yes - Physical Exam General: Alert, Oriented x3, Cooperative, No apparent distress HEENT: Atraumatic, PERRLA, EOMI, Normocephalic Neck: Supple, No JVD, Negative Carotid Bruits Lungs: Clear to auscultation, Diminished Cardiovascular: Regular Rhythm, Normal S1, Normal S2, No murmurs, Bradycardic Abdomen: Bowel Sounds Present, Soft, Non Tender, Non-Distended, Obese Extremities: No clubbing, No cyanosis, Capillary Refill Less than 3 Seconds, Edema - +2 bilateral lower extremities, - - Left forearm AV fistula. Skin: No rashes, No breakdown, - - Left forearm incision with sutures intact. No drainage or redness noted. Musculoskeletal: No Tenderness to Palpation of Joints or Extremities Neurological: Cranial nerves II-XII grossly intact, Neuro grossly intact Psych/Mental Status: Normal Affect, Appropriate Vital Signs Temp Pulse Resp BP Pulse Ox 97.2 F L 53 L 16 143/67 H 97 10/31/17 15:06 10/31/17 17:10 10/31/17 17:10 10/31/17 17:10 10/31/17 17:10 Oxygen Delivery Method Room Air Weight: 102.058 kg Body Mass Index (BMI) 0.2 Finger Stick Blood Glucose 141 Laboratory Tests Past 24 Hrs 10/31/17 10/31/17 10/31/17 15:29 15:29 16:59 WBC 8.9 RBC 3.16 L Hgb 9.3 L Hct 30.3 L MCV 95.9 H MCH 29.4 MCHC 30.7 L RDW 13.9 RDW Differential 48.1 H Plt Count 222 MPV 9.9 Immature Gran % (Auto) 0.200 Neut % (Auto) 77.5 H Lymph % (Auto) 11.3 L Edmunds % (Auto) 8.4 Eos % (Auto) 2.4 Baso % (Auto) 0.2 Absolute Neuts (auto) 6.9 Absolute Lymphs (auto) 1.01 Total Counted Not Reportable Platelet Estimate ADEQUATE Anisocytosis RARE Macrocytosis RARE Sodium 140 Potassium 5.6 H 5.2 H Chloride 106 Carbon Dioxide 22.0 Anion Gap 12 BUN 104 H* Creatinine 9.39 H* Estim Creat Clear Calc 11.77 Est GFR (MDRD) Af Amer 7 L Est GFR (MDRD) Non-Af 6 L BUN/Creatinine Ratio 11.1 Glucose 214 H Calcium 9.0 Magnesium 1.8 Troponin I < 0.02 Assessment/Plan 1. Symptomatic hypotension/bradycardia-suspect secondary to medication regimen. Blood pressure 97/45 on admission. Improved to 149/66. Heart rate 55. Continue to monitor. Home labetalol regimen decreased to 300 mg twice daily. 2. Chronic kidney disease stage IV- Follows with Dr. Rodriguez who is consulted. 09/11/17 L AV fistula, 10/30/17 LUE fistulagram w/ balloon angioplasty, both with Dr. Espino. Dr. Espino consulted for possible temporary dialysis catheter placement tomorrow. N.p.o. after midnight. Continue home calcitriol and calcium acetate regimen. 3. Hyperkalemia-secondary to #2. Monitor BMP. 4. Type 2 diabetes [id number] before meals at bedtime. Continue home insulin regimen. 5. Hypertension-stable. Continue to monitor. Labetalol regimen decreased to 300 mg twice daily as noted above due to hypotension. Continue losartan, nifedipine and Lasix regimen. 6. Hyperlipidemia-continue statin. 7. Anemia of chronic disease-stable. Baseline hemoglobin 8-9. Continue iron supplementation. 8. BPH status post TURP-continue finasteride regimen. DVT prophylaxis-Lovenox subcu. This patient was seen by DEANDRE Chávez under the supervision of Dr. Vail.
[2017-10-31] MEDS: Furosemide 40 MG Tablet PO (18:24)
[2017-10-31] MEDS: Atorvastatin Calcium 20 MG Tablet PO (22:20)
[2017-10-31] MEDS: Heparin Injection 5,000 UNITS/ML Syringe 5000 UNITS SC (22:20)
[2017-10-31] MEDS: Labetalol 100 MG Tablet 300 MG PO (22:23)
[2017-10-31 22:26] LABS: Bedside Glucose 233 mg/dL (70-110)
[2017-11-01] VITALS (20 sets, daily range): BP systolic 160–189; BP diastolic 69–80; PULSE 63–75; RESP 14–18; TEMP 35.9–36.9; O2SAT 95–98; BMI 32.8; BMI 32.9
[2017-11-01 05:30] LABS: Absolute Lymphocyte Count 1.19 X10^3/ul (0.83-4.51); Absolute Neutrophil Count 7.3 X10^3/uL (2.0-7.7); Basophil# 0.02 X10^3/uL; Basophil% 0.2 % (0-1); Eosinophil# 0.23 X10^3/uL; Eosinophils% 2.4 % (0-5); Hematocrit 28.7 % (40-54); Hemoglobin 9.2 g/dl (13.0-16.5); Lymphocyte # 1.19 X10^3/ul (4.0); Lymphocyte % 12.4 % (19-41); Mean Corp Hgb Conc 32.1 g/gl (32-36); Mean Corpuscular Hgb 29.4 pg (27.0-32.0); Mean Corpuscular Volume 91.7 fL (80-94); Mean Platelet Vol. 9.4 fl (6.2-12.0); Monocyte# 0.83 X10^3/uL; Monocyte% 8.7 % (0-10); Neutrophil # 7.31 X10^3/uL (2.7-7.7); Neutrophil % 76.3 % (47-70); POSITIVE COUNT NO; POSITIVE DIFFERENTIAL NO; POSITIVE MORPHOLOGY NO; Platelet Count 235 K/mm3 (150-450); RBC Distribution Width CV 13.9 % (11.6-14.6); Red Blood Count 3.13 M/mm3 (4.6-6.2); White Blood Count 9.6 K/mm3 (4.4-11.0)
[2017-11-01 05:37] LABS: International Normalized Ratio 1.3; Prothrombin Time (Protime)PT. 16.2 SECONDS (11.7-14.9)
[2017-11-01 05:38] LABS: Partial Thromboplast Time 37.9 Seconds (24.1-36.2)
--- NOTE | 2017-11-01 05:45 | PCM.PN.BLA ---
Progress Note 62-year-old gentleman who is 2 days status post balloon maturation angioplasty of the left forearm radiocephalic arteriovenous fistula. That was performed with a 5 x 80 mm drug-coated balloon. On today's evaluation the left forearm AV fistula has a improved pulse, thrill, bruit. It is still rather diminutive in size. I do not believe that it should be utilized immediately at this setting. Requesting physician placed by Dr. Abbie Rodriguez then for placement of tunneled dialysis catheters. With the patient's present I have described the plan for placement of a right internal jugular tunneled dialysis catheter. He has had an opportunity to ask and have questions answered. He is aware of the technique, benefits, risks, alternatives. As the fistula is already established and well progressing toward maturation hopefully these catheters will be in for a much shorter duration. Unfortunately the patient has an EKG pad directly overlying the surgery area placing him at increased risk for operative infection related to the EKG pad skin trauma and adhesives. These will need to be immediately removed. We will proceed as add on surgery scheduling permits today. Benjamín Espino M.D., F.A.C.S.
[2017-11-01] MEDS: 0.9% NaCl Peripheral Flush Adult/Peds IV ×2 (05:49→06:29)
[2017-11-01 05:51] LABS: Anion Gap 10 (5-15); BUN 101 mg/dL (7-18); BUN/Creat Ratio 10.7 RATIO (10-20); Calcium,Total 9.2 mg/dL (8.5-10.1); Chloride 108 mmol/L (98-107); Creatinine, Serum 9.46 mg/dL (0.70-1.30); EST Glomerular Filtration Rate 6 mL/min (>60); Est Glom Filt Rate - Afr Amer 7 mL/min (>60); Estimated Creatinine Clearance 8.36 ml/min; Glucose 116 mg/dL (74-106); Potassium 4.2 mmol/L (3.5-5.1); Sodium Level 144 mmol/L (136-145)
[2017-11-01] MEDS: hydrALAZINE 25 MG Tablet PO ×3 (05:51→23:02)
--- NOTE | 2017-11-01 05:55 | EKG12_ITS ---
Test Reason : AM EKG Blood Pressure : / mmHG Vent. Rate : 069 BPM Atrial Rate : 069 BPM P-R Int : 164 ms QRS Dur : 102 ms QT Int : 452 ms P-R-T Axes : 042 015 031 degrees QTc Int : 484 ms Normal sinus rhythm Prolonged QT Abnormal ECG When compared with ECG of 31-OCT-2017 15:16, MANUAL COMPARISON REQUIRED, DATA IS UNCONFIRMED Confirmed by SHARMAINE MENDEZ ([id number]), medical transcription editor LEDY SAMPSON ([id number]) on 11/06/2017 8:52:39 AM Referred By: HEIKE Confirmed By:SHARMAINE MENDEZ
[2017-11-01 07:01] LABS: Bedside Glucose 130 mg/dL (70-110)
--- NOTE | 2017-11-01 07:02 | NURSING ---
Charting completed by Sarwat Garcia, nursing program director checked by this RN. RN agrees with charting
[2017-11-01 07:21] LABS: Hemoglobin A1c 6.2 % (4.2-6.3)
--- NOTE | 2017-11-01 09:19 | NURSING ---
report given to vera tenorio in surgery
[2017-11-01] MEDS: Losartan Potassium 100 MG Tablet PO (09:28)
[2017-11-01] MEDS: NIFEdipine 60 MG Tablet PO (09:28)
[2017-11-01] MEDS: Finasteride 5 MG Tablet PO (09:29)
[2017-11-01] MEDS: Labetalol 100 MG Tablet 300 MG PO ×2 (09:30→23:04)
[2017-11-01] MEDS: hydrALAZINE 20 MG/ML Vial 10 MG IV (09:30)
[2017-11-01] MEDS: Cefazolin 2 GM in 0.9% Normal Saline 100 ML IV (10:42)
--- NOTE | 2017-11-01 10:44 | PCM.DC.POR ---
Discharge Diet: Renal Diet Discharge Activity: Return to Normal Activity, May Not Shower Additional Activity Instructions:: Please keep your dialysis catheter site clean and dry. The dialysis center will assist with dressing changes Additional Dressing/Incision Instructions:: Leave the bandage on for 2-3 days. When you remove the bandage, leave the steri-strips intact until they fall off. Allergies/Adverse Reactions: Allergies metformin Allergy (Verified 10/31/17 14:40) Itching Sulfa (Sulfonamide Antibiotics) Allergy (Verified 10/31/17 14:40) Swelling Medications to take at Discharge Insulin Glargine [Lantus SoloStar Pen] 26 units SC DAILY 04/07/13 calcitriol 0.25 mcg capsule 0.5 mcg PO DAILY 07/10/17 finasteride 5 mg tablet 5 mg PO DAILY 07/10/17 furosemide 20 mg tablet 40 mg PO BID 07/10/17 labetalol 100 mg tablet 400 mg PO BID 07/10/17 losartan 50 mg tablet 100 mg PO DAILY 07/10/17 rosuvastatin 10 mg tablet 10 mg PO DAILY 07/10/17 Ergocalciferol [Vitamin D] 50,000 unit PO QMONTH 08/19/17 Insulin Lispro [Humalog] 10 - 12 unit SC BID 08/19/17 Iron Polysaccharide Complex [Ferrex 150] 150 mg PO DAILYCM 08/19/17 Nifedipine [Nifedipine ER] 60 mg PO DAILY 09/09/17 Calcium Acetate [Phoslo Gel Cap] 1,334 mg PO TIDCM 09/16/17 Primary Care Physician: Roman Espino III, MD [Primary Care Provider] - Please Follow Up With: Benjamín Espino MD - [phone] When: Please plan to follow up in 7 days in the office.
--- NOTE | 2017-11-01 10:46 | RAD_ITS ---
STUDY: X-RAY CHEST REASON FOR EXAM: Male, 62 years old. Line placement. TECHNIQUE: Single AP portable view of the chest. COMPARISON: October 31, 2017 FINDINGS: Central catheter on the right extending to the mid superior vena cava. The lungs are clear and expanded. There is no demonstrated pleural abnormality. Normal size heart. Normal mediastinum and nader. Normal visualized pulmonary arteries. Normal visualized aortic arch and descending thoracic aorta. Normal visualized thoracic spine. Normal visualized ribs, clavicles, and shoulders. There is no demonstrated abnormality of the visualized soft tissue structures of the upper abdomen. RAD/Chest 1 View (Portable) IMPRESSION: Central catheter placement. No pneumothorax. No focal infiltrate. Electronically Signed: Sarmad Hutton MD at 12:11 EDT , Service support ,
--- NOTE | 2017-11-01 10:55 | CASEMGMT ---
This RN CM to room to complete CM assessment at this time and pt is out of the dept for temp dialysis cath placement at this time. Will attempt again later. Brooklyn ATKINSON CM
[2017-11-01] MEDS: Bupivacaine Mpf 0.5% 30 ML VIAL (11:00)
[2017-11-01] MEDS: Heparin 10,000 UNITS/10 ML Vial 10000 UNITS (11:15)
--- NOTE | 2017-11-01 11:24 | PCM.OPRPT ---
Problem List (1) Chronic kidney disease Status: Acute Qualifiers: Chronic kidney disease stage: stage 5, not on chronic dialysis Qualified Code(s): N18.5 - Chronic kidney disease, stage 5 Report of Operation Date of Procedure: 11/01/17 Pre-Operative Diagnosis: Stage V chronic renal failure in need of urgent hemodialysis Post-Operative Diagnosis: Same Surgery/Procedure Performed:: Right internal jugular tunneled dialysis catheter placement Description of Surgical Findings:: Timeout and informed consent was obtained. 62-year-old gentleman was taken to the operating. He was placed on the table. The right neck and chest were sterilely prepped and draped. Ancef 2 g were given intravenously preoperatively. He underwent monitored anesthesia care. Under ultrasound guidance 1% lidocaine mixed 50-50 with 0.5% Marcaine was used as a local anesthetic. Throughout the procedure total 20 cc was used. Local was instilled. Micropuncture needle was inserted. Micropuncture wire inserted. Local was instilled down upon the chest wall. Small incision was created. The 19 cm pre-curved palindrome catheter was tunneled from the chest to the neck site. Fluoroscopy demonstrated good positioning the micropuncture wire. Micropuncture sheath was placed. No 3 5 J-wire was placed. Serial dilatation was performed. The sheath dilator was inserted. The dilator and wire were removed. The catheter was advanced through the sheath. The sheath was split and the catheter was positioned. Fluoroscopy demonstrated good positioning. The neck site was closed with interrupted 5-0 Vicryl subdermal stitch. The catheter was secured to the skin with interrupted 3-0 nylon. Telfa and OpSite dressing was applied to the neck. Silver impregnated dressing was applied at the exit site. Sponge instrument and needle counts were reported to the surgeon to be correct. Blood loss was minimal. No apparent complication. Specimens none. Drains none. Blood loss minimal. Stat portable chest x-ray is pending in the recovery area. Benjamín Espino M.D., F.A.C.S. Type of Anesthesia:: MAC Anesthesiologist: Alfa Ribera
--- NOTE | 2017-11-01 12:17 | PCM.CONS.R ---
Consultation - Renal 11/01/17 PCP/ Referring MD: Requesting physician: [] Primary care physician: Roman Espino Reason for Consultation:: RENAL FAILURE - History of Present Illness History of Present Illness: The patient is a 62 year old M with end stage renal failure from diabetes, seen in my office yesterday for follow up. He complained of lightheadedness, dizziness with low BP after his nifedipine was increased by cardiology in [place] for elevated BP. Nifedipine was 90mg daily. He was seen in Dr. Espino's office yesterday to schedule TDC placement as an outpt next week but his symptoms worsened needing a wheelchair and went to ER. He was found to be bradycardic with HR in the 40-50 in ER yesterday afternoon. He had an AVF placed with fistulogram 2 days ago to help improve maturation. He has chronic nausea, fatigue. He is on aranesp for anemia managed by DR. Sifuentes. He has been referred to [facility] for kidney transplant evaluation and is scheduled for stress test. His is a potential live donor. Discussed with primary care service to initiate dialysis today after line placement and reduce labetalol dose for bradycardia. Arrangements initiated to continue chronic dialysis at [facility] unit. He will receive JILLIAN, iv iron, calcitriol on dialysis so can discontinue on discharge to home. - Allergies Allergies: Allergies metformin Allergy (Verified 10/31/17 14:40) Itching Sulfa (Sulfonamide Antibiotics) Allergy (Verified 10/31/17 14:40) Swelling - Current Medications Current Medications: Current Medications Hydrocodone Bitart/Acetaminophen ([place] 5mg-325mg) 1 tablet PO Q6H PRN PRN PRN Reason: PAIN Atorvastatin Calcium (Lipitor) 20 mg PO QHS [facility] Last Admin: 10/31/17 22:20 Dose: 20 mg Calcitriol (Rocaltrol) 0.5 mcg PO DAILY [facility] Calcium Acetate (Phoslo Gel Cap) 1,334 mg PO TIDCM [facility] Last Admin: 11/01/17 11:23 Dose: Not Given Dextrose (D50w Syringe) 0 gm IV X1 PRN; Protocol PRN Reason: Hypoglycemia Finasteride (Proscar) 5 mg PO DAILY [facility] Last Admin: 11/01/17 09:29 Dose: 5 mg Furosemide (Lasix) 40 mg PO BIDLX [facility] Last Admin: 10/31/17 18:24 Dose: 40 mg Glucagon () 1 mg IM .X1 PRN PRN Reason: Hypoglycemia Heparin Sodium (Porcine) () 5,000 units SC Q8 [facility] Last Admin: 11/01/17 06:09 Dose: Not Given Hydralazine HCl (Apresoline) 25 mg PO TID [facility] Last Admin: 11/01/17 05:51 Dose: 25 mg Hydralazine HCl (Apresoline Iv) 10 mg IV Q4H PRN PRN PRN Reason: SBP>180 Last Admin: 11/01/17 09:30 Dose: 10 mg Insulin Aspart (Novolog Flexpen (Bkc)) 0 units SC ACHS [facility] PRN Reason: Protocol Last Admin: 11/01/17 07:47 Dose: Not Given Insulin Aspart (Novolog Flexpen (Bkc)) 10 units SC TIDAC [facility] Last Admin: 11/01/17 11:23 Dose: Not Given Insulin Detemir (Levemir (Bkc)) 26 units SC DAILY [facility] Labetalol HCl (Trandate) 300 mg PO BID [facility] Last Admin: 11/01/17 09:30 Dose: 300 mg Losartan Potassium (Cozaar) 100 mg PO DAILY [facility] Last Admin: 11/01/17 09:28 Dose: 100 mg Magnesium Hydroxide (Milk Of Magnesia) 30 ml PO DAILY PRN PRN Reason: Constipation Nifedipine (Procardia Xl) 60 mg PO DAILY [facility] Last Admin: 11/01/17 09:28 Dose: 60 mg Polysaccharide Iron Complex (Ferrex 150) [facility] Sodium Chloride () 5 - 30 ml IV UD PRN PRN Reason: SALINE FLUSH Last Admin: 11/01/17 06:29 Dose: 10 ml - Past Medical History Past Medical History (Chronic Problems): Chronic Problems (Last Reviewed 10/31/17 @ 14:38 by Ira Yusuf) Problem with dialysis access (Chronic) History of angioplasty of peripheral vessel (Chronic) Renal failure (Chronic) Essential hypertension (Chronic) Type II diabetes mellitus (Chronic) Hypercholesterolemia (Chronic) Anemia (Chronic) - Past Surgical History Surgical History: - - TURP, ORIF right radius/ulna, 09/11/17 L AV fistula, 10/30/17 LUE fistulagram w/ balloon angioplasty. - Social History Marital Status: Smoking Status: Former smoker Alcohol: Rare Drugs: None - Family History Maternal Family History: Family History (Last Reviewed 10/31/17 @ 14:38 by Ira Yusuf) Mother Diabetes Hypertension Heart disease Cancer Brother Diabetes Father Diabetes Cancer History Items: Cancer - Lung, Diabetes, Heart Disease, Hypertension Paternal Family History: Family History (Last Reviewed 10/31/17 @ 14:38 by Ira Yusuf) Mother Diabetes Hypertension Heart disease Cancer Brother Diabetes Father Diabetes Cancer History Items: Cancer - Pancreatic, Diabetes Review of Systems Constitutional: Reports: Anorexia, Chills, Weakness, Fatigue. Denies: Fever Eyes: Denies: Vision Change Cardiovascular: Reports: Edema, - - near syncope. Denies: Chest Pain Respiratory: Denies: Shortness of Breath Gastrointestinal: Reports: Nausea. Denies: Abdominal Pain, Vomiting Genitourinary: Denies: Dysuria Musculoskeletal: Reports: - - leg swelling Neurological: Reports: Balance problems, Tremor Psychiatric: Reports: Anxiety, Depression Hematologic/ Lymphatic: Reports: Anemia Patient Problems: Active and Suspected Problems (Last Reviewed 10/31/17 @ 14:38 by Ira Yusuf) Symptomatic bradycardia (Acute) Chronic anemia (Acute) Chronic kidney disease (Acute) - Physical Exam General: Alert, Oriented x3, Cooperative, No apparent distress Neck: Supple Lungs: Clear to auscultation Cardiovascular: Regular rate, Murmur, No rub noted Abdomen: Bowel Sounds Present, Soft, Non Tender, Non-Distended Extremities: Edema - chronic Skin: No rashes Musculoskeletal: No Muscle Wasting, - - AVF left forearm with thrill and bruit. Neurological: - - twitching intermittently Psych/Mental Status: Normal Affect, Alert and oriented to time, place, person, mood and affect Vital Signs Temp Pulse Resp BP Pulse Ox 98.2 F 64 14 175/72 H 95 11/01/17 11:45 11/01/17 11:45 11/01/17 11:45 11/01/17 11:45 11/01/17 11:45 Oxygen Delivery Method Room Air Weight: 104 kg Body Mass Index (BMI) 32.8 Intake and Output for Last 24 Hours 10/30/17 10/31/17 11/01/17 23:59 23:59 23:59 Intake Total 580 / 580 Balance 580 / 580 Laboratory Tests Past 24 Hrs 11/01/17 11/01/1711/01/18 05:10 05:10 05:10 WBC 9.6 RBC 3.13 L Hgb 9.2 L Hct 28.7 L MCV 91.7 MCH 29.4 MCHC 32.1 RDW 13.9 RDW Differential 45.0 H Plt Count 235 MPV 9.4 Immature Gran % (Auto) 0.000 Neut % (Auto) 76.3 H Lymph % (Auto) 12.[address] [place] % (Auto) 8.7 Eos % (Auto) 2.4 Baso % (Auto) 0.2 Absolute Neuts (auto) 7.3 Absolute Lymphs (auto) 1.19 Total Counted Not Reportable PT 16.2 H INR 1.3 APTT 37.9 H Sodium 144 Potassium 4.2 Chloride 108 H Carbon Dioxide 26.0 Anion Gap 10 BUN 101 H* Creatinine 9.46 H* Estim Creat Clear Calc 8.36 Est GFR (MDRD) Af Amer 7 L Est GFR (MDRD) Non-Af 6 L BUN/Creatinine Ratio 10.7 Glucose 116 H Hemoglobin A1c Calcium 9.2 Blood Type Antibody Screen 11/01/17 11/01/17 05:10 05:10 WBC RBC Hgb Hct MCV MCH MCHC RDW RDW Differential Plt Count MPV Immature Gran % (Auto) Neut % (Auto) Lymph % (Auto) [place] % (Auto) Eos % (Auto) Baso % (Auto) Absolute Neuts (auto) Absolute Lymphs (auto) Total Counted PT INR APTT Sodium Potassium Chloride Carbon Dioxide Anion Gap BUN Creatinine Estim Creat Clear Calc Est GFR (MDRD) Af Amer Est GFR (MDRD) Non-Af BUN/Creatinine Ratio Glucose Hemoglobin A1c 6.2 Calcium Blood Type A POSITIVE Antibody Screen NEGATIVE POC Glucose 11/01/17 10/31/17 06:50 22:17 POC Glucose 130 H 233 H Clinical Impression(s) from Imaging Studies Chest X-Ray 10/31/17 15:22 IMPRESSION: There are no acute findings. Electronically Signed: Corky Buckley MD at 16:53 EDT , Service support , Chest X-Ray 11/01/17 10:46 IMPRESSION: Central catheter placement. No pneumothorax. No focal infiltrate. Electronically Signed: Sarmad Hutton MD at 12:11 EDT , Service support , Assessment/Plan Active and Suspected Problems (Last Reviewed 10/31/17 @ 14:38 by Ira Yusuf) Symptomatic bradycardia (Acute) Chronic anemia (Acute) Chronic kidney disease (Acute) 1. ESRD HD today with TDC first tx and repeat tx tomorrow. OK to discharge to home after dialysis tomorrow if medically stable. Hep panel ordered yesterday 2. DM type 2 with low cpeptide, possible type 1. 3. AVF recent fistulogram, not ready for use. TDC catheter today. 4. Bradycardia, labetalol decreased 5. Resistent hypertension continue current regimen 6. LE edema chronic. Fluid removal on dialysis as tolerated 7. Iron def Anemia start iv iron, JILLIAN on dialysis. 8. dizziness, lightheadedness with hypotension improved. Spoke with pt and pt spouse at bedside, CM. Schedule for outpt dialysis TTS 12:10pm.
--- NOTE | 2017-11-01 12:20 | CASEMGMT ---
Referral faxed to [facility] at this time to set up pt dialysis. Per Dr. Rodriguez, pt will have a chair time at the [facility] T, , Sat at 12:10 and she did notify pt. Brooklyn ATKINSON CM
--- NOTE | 2017-11-01 12:28 | CON.PCM_ITS ---
Consultation - Renal 11/01/17 PCP/ Referring MD: Requesting physician: [] Primary care physician: Roman Espino Reason for Consultation:: RENAL FAILURE - History of Present Illness History of Present Illness: The patient is a 62 year old M with end stage renal failure from diabetes, seen in my office yesterday for follow up. He complained of lightheadedness, dizziness with low BP after his nifedipine was increased by cardiology in [place] for elevated BP. Nifedipine was 90mg daily. He was seen in Dr. Espino' s office yesterday to schedule TDC placement as an outpt next week but his symptoms worsened needing a wheelchair and went to ER. He was found to be bradycardic with HR in the 40-50 in ER yesterday afternoon. He had an AVF placed with fistulogram 2 days ago to help improve maturation. He has chronic nausea, fatigue. He is on aranesp for anemia managed by DR. Sifuentes. He has been referred to [facility] for kidney transplant evaluation and is scheduled for stress test. His is a potential live donor. Discussed with primary care service to initiate dialysis today after line placement and reduce labetalol dose for bradycardia. Arrangements initiated to continue chronic dialysis at [facility]. He will receive JILLIAN, iv iron, calcitriol on dialysis so can discontinue on discharge to home. - Allergies Allergies: Allergies metformin Allergy (Verified 10/31/17 14:40) Itching Sulfa (Sulfonamide Antibiotics) Allergy (Verified 10/31/17 14:40) Swelling - Current Medications Current Medications: Current Medications Hydrocodone Bitart/Acetaminophen ([place] 5mg-325mg) 1 tablet PO Q6H PRN PRN PRN Reason: PAIN Atorvastatin Calcium (Lipitor) 20 mg PO QHS [facility] Last Admin: 10/31/17 22:20 Dose: 20 mg Calcitriol (Rocaltrol) 0.5 mcg PO DAILY [facility] Calcium Acetate (Phoslo Gel Cap) 1,334 mg PO TIDCM [facility] Last Admin: 11/01/17 11:23 Dose: Not Given Dextrose (D50w Syringe) 0 gm IV X1 PRN; Protocol PRN Reason: Hypoglycemia Finasteride (Proscar) 5 mg PO DAILY [facility] Last Admin: 11/01/17 09:29 Dose: 5 mg Furosemide (Lasix) 40 mg PO BIDLX [facility] Last Admin: 10/31/17 18:24 Dose: 40 mg Glucagon () 1 mg IM .X1 PRN PRN Reason: Hypoglycemia Heparin Sodium (Porcine) () 5,000 units SC Q8 [facility] Last Admin: 11/01/17 06:09 Dose: Not Given Hydralazine HCl (Apresoline) 25 mg PO TID [facility] Last Admin: 11/01/17 05:51 Dose: 25 mg Hydralazine HCl (Apresoline Iv) 10 mg IV Q4H PRN PRN PRN Reason: SBP>180 Last Admin: 11/01/17 09:30 Dose: 10 mg Insulin Aspart (Novolog Flexpen (Bkc)) 0 units SC ACHS [facility] PRN Reason: Protocol Last Admin: 11/01/17 07:47 Dose: Not Given Insulin Aspart (Novolog Flexpen (Bkc)) 10 units SC TIDAC [facility] Last Admin: 11/01/17 11:23 Dose: Not Given Insulin Detemir (Levemir (Bkc)) 26 units SC DAILY [facility] Labetalol HCl (Trandate) 300 mg PO BID [facility] Last Admin: 11/01/17 09:30 Dose: 300 mg Losartan Potassium (Cozaar) 100 mg PO DAILY [facility] Last Admin: 11/01/17 09:28 Dose: 100 mg Magnesium Hydroxide (Milk Of Magnesia) 30 ml PO DAILY PRN PRN Reason: Constipation Nifedipine (Procardia Xl) 60 mg PO DAILY [facility] Last Admin: 11/01/17 09:28 Dose: 60 mg Polysaccharide Iron [facility] ([facility]rex 150) [facility] Sodium Chloride () 5 - 30 ml IV UD PRN PRN Reason: SALINE FLUSH Last Admin: 11/01/17 06:29 Dose: 10 ml - Past Medical History Past Medical History (Chronic Problems): Chronic Problems (Last Reviewed 10/31/17 @ 14:38 by Ira Yusuf) Problem with dialysis access (Chronic) History of angioplasty of peripheral vessel (Chronic) Renal failure (Chronic) Essential hypertension (Chronic) Type II diabetes mellitus (Chronic) Hypercholesterolemia (Chronic) Anemia (Chronic) - Past Surgical History Surgical History: - - TURP, ORIF right radius/ulna, 09/11/17 L AV fistula, LUE fistulagram w/ balloon angioplasty. - Social History Marital Status: Smoking Status: Former smoker Alcohol: Rare Drugs: None - Family History Maternal Family History: Family History (Last Reviewed 10/31/17 @ 14:38 by Ira Yusuf) Mother Diabetes Hypertension Heart disease Cancer Brother Diabetes Father Diabetes Cancer History Items: Cancer - Lung, Diabetes, Heart Disease, Hypertension Paternal Family History: Family History (Last Reviewed 10/31/17 @ 14:38 by Ira Yusuf) Mother Diabetes Hypertension Heart disease Cancer Brother Diabetes Father Diabetes Cancer History Items: Cancer - Pancreatic, Diabetes Review of Systems Constitutional: Reports: Anorexia, Chills, Weakness, Fatigue. Denies: Fever Eyes: Denies: Vision Change Cardiovascular: Reports: Edema, - - near syncope. Denies: Chest Pain Respiratory: Denies: Shortness of Breath Gastrointestinal: Reports: Nausea. Denies: Abdominal Pain, Vomiting Genitourinary: Denies: Dysuria Musculoskeletal: Reports: - - leg swelling Neurological: Reports: Balance problems, Tremor Psychiatric: Reports: Anxiety, Depression Hematologic/ Lymphatic: Reports: Anemia Patient Problems: Active and Suspected Problems (Last Reviewed 10/31/17 @ 14:38 by Ira Yusuf) Symptomatic bradycardia (Acute) Chronic anemia (Acute) Chronic kidney disease (Acute) - Physical Exam General: Alert, Oriented x3, Cooperative, No apparent distress Neck: Supple Lungs: Clear to auscultation Cardiovascular: Regular rate, Murmur, No rub noted Abdomen: Bowel Sounds Present, Soft, Non Tender, Non-Distended Extremities: Edema - chronic Skin: No rashes Musculoskeletal: No Muscle Wasting, - - AVF left forearm with thrill and bruit. Neurological: - - twitching intermittently Psych/Mental Status: Normal Affect, Alert and oriented to time, place, person, mood and affect Vital Signs Temp Pulse Resp BP Pulse Ox 98.2 F 64 14 175/72 H 95 11/01/17 11:45 11/01/17 11:45 11/01/17 11:45 11/01/17 11:45 11/01/17 11:45 Oxygen Delivery Method Room Air Weight: 104 kg Body Mass Index (BMI) 32.8 Intake and Output for Last 24 Hours 10/30/17 10/31/17 11/01/17 23:59 23:59 23:59 Intake Total 580 / 580 Balance 580 / 580 Laboratory Tests Past 24 Hrs 11/01/17 11/01/1711/01/18 05:10 05:10 05:10 WBC 9.6 RBC 3.13 L Hgb 9.2 L Hct 28.7 L MCV 91.7 MCH 29.4 MCHC 32.1 RDW 13.9 RDW Differential 45.0 H Plt Count 235 MPV 9.4 Immature Gran % (Auto) 0.000 Neut % (Auto) 76.3 H Lymph % (Auto) 12.4 L [place] % (Auto) 8.7 Eos % (Auto) 2.4 Baso % (Auto) 0.2 Absolute Neuts (auto) 7.3 Absolute Lymphs (auto) 1.19 Total Counted Not Reportable PT 16.2 H INR 1.3 APTT 37.9 H Sodium 144 Potassium 4.2 Chloride 108 H Carbon Dioxide 26.0 Anion Gap 10 BUN 101 H* Creatinine 9.46 H* Estim Creat Clear Calc 8.36 Est GFR (MDRD) Af Amer 7 L Est GFR (MDRD) Non-Af 6 L BUN/Creatinine Ratio 10.7 Glucose 116 H Hemoglobin A1c Calcium 9.2 Blood Type Antibody Screen 11/01/17 11/01/17 05:10 05:10 WBC RBC Hgb Hct MCV MCH MCHC RDW RDW Differential Plt Count MPV Immature Gran % (Auto) Neut % (Auto) Lymph % (Auto) [place] % (Auto) Eos % (Auto) Baso % (Auto) Absolute Neuts (auto) Absolute Lymphs (auto) Total Counted PT INR APTT Sodium Potassium Chloride Carbon Dioxide Anion Gap BUN Creatinine Estim Creat Clear Calc Est GFR (MDRD) Af Amer Est GFR (MDRD) Non-Af BUN/Creatinine Ratio Glucose Hemoglobin A1c 6.2 Calcium Blood Type A POSITIVE Antibody Screen NEGATIVE POC Glucose 11/01/17 10/31/17 06:50 22:17 POC Glucose 130 H 233 H Clinical Impression(s) from Imaging Studies Chest X-Ray 10/31/17 15:22 IMPRESSION: There are no acute findings. Electronically Signed: Corky Buckley MD at 16:53 EDT , Service support , Chest X-Ray 11/01/17 10:46 IMPRESSION: Central catheter placement. No pneumothorax. No focal infiltrate. Electronically Signed: Sarmad Hutton MD at 12:11 EDT , Service support , Assessment/Plan Active and Suspected Problems (Last Reviewed 10/31/17 @ 14:38 by Ira Yusuf) Symptomatic bradycardia (Acute) Chronic anemia (Acute) Chronic kidney disease (Acute) 1. ESRD HD today with TDC first tx and repeat tx tomorrow. OK to discharge to home after dialysis tomorrow if medically stable. Hep panel ordered yesterday 2. DM type 2 with low cpeptide, possible type 1. 3. AVF recent fistulogram, not ready for use. TDC catheter today. 4. Bradycardia, labetalol decreased 5. Resistent hypertension continue current regimen 6. LE edema chronic. Fluid removal on dialysis as tolerated 7. Iron def Anemia start iv iron, JILLIAN on dialysis. 8. dizziness, lightheadedness with hypotension improved. Spoke with pt and pt spouse at bedside, CM. Schedule for outpt dialysis TTS 12: 10pm.
--- NOTE | 2017-11-01 12:32 | PN_ITS ---
<Rosio Gamez - Last Filed: 11/01/17 12:32> Patient Problems: Active and Suspected Problems (Last Reviewed 10/31/17 @ 14:38 by Ira Yusuf) Symptomatic bradycardia (Acute) Chronic anemia (Acute) Chronic kidney disease (Acute) Subjective: Patient seen and examined. Denies further dizziness, weakness. No acute events overnight. Patient is scheduled to undergo a temporary dialysis catheter placement later this morning. Denies current complaints. - Physical Exam General: Alert, Oriented x3, Cooperative HEENT: Atraumatic, PERRLA, EOMI, Normocephalic Neck: Supple, No JVD, Negative Carotid Bruits Lungs: Clear to auscultation, Diminished Cardiovascular: Regular rate, Regular Rhythm, Normal S1, Normal S2, No murmurs Abdomen: Bowel Sounds Present, Soft, Non Tender, Non-Distended, Obese Extremities: No clubbing, No cyanosis, Edema - Nonpitting bilateral lower extremities, - - Left forearm AV fistula Skin: No rashes, No breakdown, - - Left forearm incisions with sutures intact. No drainage or redness noted. Musculoskeletal: No Tenderness to Palpation of Joints or Extremities Neurological: Cranial nerves II-XII grossly intact, Neuro grossly intact Psych/Mental Status: Normal Affect, Appropriate Vital Signs Temp Pulse Resp BP Pulse Ox 98.1 F 64 16 160/73 H 95 11/01/17 12:15 11/01/17 12:15 11/01/17 12:15 11/01/17 12:15 11/01/17 12:15 Oxygen Delivery Method Room Air Weight: 104 kg Body Mass Index (BMI) 32.8 Intake and Output for Last 24 Hours 10/30/17 10/31/17 11/01/17 23:59 23:59 23:59 Intake Total 580 / 580 Balance 580 / 580 Laboratory Tests Past 24 Hrs 11/01/17 11/01/17 11/01/17 05:10 05:10 05:10 WBC 9.6 RBC 3.13 L Hgb 9.2 L Hct 28.7 L MCV 91.7 MCH 29.4 MCHC 32.1 RDW 13.9 RDW Differential 45.0 H Plt Count 235 MPV 9.4 Immature Gran % (Auto) 0.000 Neut % (Auto) 76.3 H Lymph % (Auto) 12.4 L [place] % (Auto) 8.7 Eos % (Auto) 2.4 Baso % (Auto) 0.2 Absolute Neuts (auto) 7.3 Absolute Lymphs (auto) 1.19 Total Counted Not Reportable PT 16.2 H INR 1.3 APTT 37.9 H Sodium 144 Potassium 4.2 Chloride 108 H Carbon Dioxide 26.0 Anion Gap 10 BUN 101 H* Creatinine 9.46 H* Estim Creat Clear Calc 8.36 Est GFR (MDRD) Af Amer 7 L Est GFR (MDRD) Non-Af 6 L BUN/Creatinine Ratio 10.7 Glucose 116 H Hemoglobin A1c Calcium 9.2 Blood Type Antibody Screen 11/01/17 11/01/17 05:10 05:10 WBC RBC Hgb Hct MCV MCH MCHC RDW RDW Differential Plt Count MPV Immature Gran % (Auto) Neut % (Auto) Lymph % (Auto) [place] % (Auto) Eos % (Auto) Baso % (Auto) Absolute Neuts (auto) Absolute Lymphs (auto) Total Counted PT INR APTT Sodium Potassium Chloride Carbon Dioxide Anion Gap BUN Creatinine Estim Creat Clear Calc Est GFR (MDRD) Af Amer Est GFR (MDRD) Non-Af BUN/Creatinine Ratio Glucose Hemoglobin A1c 6.2 Calcium Blood Type A POSITIVE Antibody Screen NEGATIVE POC Glucose 11/01/17 10/31/17 06:50 22:17 POC Glucose 130 H 233 H Medical Necessity - Tobacco Use Smoking Status: Former smoker Tobacco Use: Cigarettes Assessment/Plan Active and Suspected Problems (Last Reviewed 10/31/17 @ 14:38 by Ira Yusuf) Symptomatic bradycardia (Acute) Chronic anemia (Acute) Chronic kidney disease (Acute) Patient is a 62-year-old male admitted 10/31/17 due to hypotension, bradycardia, dizziness, weakness. Patient's chronic medical history includes ESRD, hypertension, hyperlipidemia, type 2 diabetes mellitus, anemia of chronic disease, BPH status post TURP. 1. Symptomatic hypotension/bradycardia-Resolved. Suspect secondary to medication regimen. Blood pressure now stable. Heart rate 55. Continue to monitor. Home labetalol regimen decreased to 300 mg twice daily. 2. ESRD- Follows with Dr. Rodriguez who is consulted. 09/11/17 L AV fistula, 10/30/17 LUE fistulagram w/ balloon angioplasty, both with Dr. Espino. Dr. Espion consulted who placed right internal jugular tunneled dialysis catheter 11/01/17. Continue home calcitriol and calcium acetate regimen. Patient to undergo dialysis this afternoon. 3. Hyperkalemia-resolved. Monitor BMP. 4. Type 2 diabetes [id number] before meals at bedtime. Continue home insulin regimen. 5. Hypertension-elevated today, systolically 160-170. Patient to receive dialysis this afternoon. Continue to monitor. Labetalol regimen decreased to 300 mg twice daily as noted above due to hypotension. Continue losartan, nifedipine and Lasix regimen. 6. Hyperlipidemia-continue statin. 7. Anemia of chronic disease-stable. Baseline hemoglobin 8-9. Continue iron supplementation. 8. BPH status post TURP-continue finasteride regimen. DVT prophylaxis-Lovenox subcu. This patient was seen by DEANDRE Chávez under the supervision of Dr. Bundy. <Gin Bundy - Last Filed: 11/01/17 16:06> - Physical Exam Vital Signs Temp Pulse Resp BP Pulse Ox 98.1 F 65 16 160/73 H 95 11/01/17 12:15 11/01/17 15:18 11/01/17 12:15 11/01/17 12:15 11/01/17 12:15 Oxygen Delivery Method Room Air Weight: 104 kg Body Mass Index (BMI) 32.8 Intake and Output for Last 24 Hours 10/30/17 10/31/17 11/01/17 23:59 23:59 23:59 Intake Total 580 / 580 Balance 580 / 580 Laboratory Tests Past 24 Hrs 11/01/17 11/01/17 11/01/17 05:10 05:10 05:10 WBC 9.6 RBC 3.13 L Hgb 9.2 L Hct 28.7 L MCV 91.7 MCH 29.4 MCHC 32.1 RDW 13.9 RDW Differential 45.0 H Plt Count 235 MPV 9.4 Immature Gran % (Auto) 0.000 Neut % (Auto) 76.3 H Lymph % (Auto) 12.4 L [place] % (Auto) 8.7 Eos % (Auto) 2.4 Baso % (Auto) 0.2 Absolute Neuts (auto) 7.3 Absolute Lymphs (auto) 1.19 Total Counted Not Reportable PT 16.2 H INR 1.3 APTT 37.9 H Sodium 144 Potassium 4.2 Chloride 108 H Carbon Dioxide 26.0 Anion Gap 10 BUN 101 H* Creatinine 9.46 H* Estim Creat Clear Calc 8.36 Est GFR (MDRD) Af Amer 7 L Est GFR (MDRD) Non-Af 6 L BUN/Creatinine Ratio 10.7 Glucose 116 H Hemoglobin A1c Calcium 9.2 Blood Type Antibody Screen 11/01/17 11/01/17 05:10 05:10 WBC RBC Hgb Hct MCV MCH MCHC RDW RDW Differential Plt Count MPV Immature Gran % (Auto) Neut % (Auto) Lymph % (Auto) [place] % (Auto) Eos % (Auto) Baso % (Auto) Absolute Neuts (auto) Absolute Lymphs (auto) Total Counted PT INR APTT Sodium Potassium Chloride Carbon Dioxide Anion Gap BUN Creatinine Estim Creat Clear Calc Est GFR (MDRD) Af Amer Est GFR (MDRD) Non-Af BUN/Creatinine Ratio Glucose Hemoglobin A1c 6.2 Calcium Blood Type A POSITIVE Antibody Screen NEGATIVE POC Glucose 11/01/17 11/01/17 10/31/17 12:23 06:50 22:17 POC Glucose 107 130 H 233 H Assessment/Plan Patient was seen and examined independently. Agree with interval history and physical exam as documented by nurse practitioner Rosio Gamez. Patient had surgery this morning for right IJ tunneled dialysis catheter. Patient will be started on dialysis. No new complaints. Vitals reviewed. Stable. Meds reviewed will continue to monitor patient closely. Code Visit Inpatient E&M: 32168 Subs Hosp L3
[2017-11-01 12:35] LABS: Bedside Glucose 107 mg/dL (70-110)
--- NOTE | 2017-11-01 13:10 | CASEMGMT ---
Face to Face with patient for initial transition planning/care coordination assessment. DEMETRIO LEON introduced self and role at [facility], pt voices understanding and consents to assessment at this time. Pt is sitting up in bed in no distress at this time. Pt is A/O x4 at this time and answers all questions appropriately at this time. Care providers, pharmacy, and demographics verified. See attached link. Pt voices no further concerns/needs at this time. Advised pt to ask for CM if any further questions/concerns/needs arise, voices understanding. Awaiting [employer] confirmation of chair time and fax with info for pt. Per Dr. Rodriguez, pt will have dialysis today and tomorrow and then may possibly be discharged. PLAN: Home w/ new dialysis set up [place] DEMETRIO LEON
--- NOTE | 2017-11-01 13:40 | CASEMGMT ---
Call to [facility] to make sure fax received and they state that they are unsure if fax is there yet and request that fax be resent at this time, just in case. Referral re-faxed to [facility] at this time. Brooklyn ATKINSON CM
--- NOTE | 2017-11-01 13:54 | CHAPLAIN ---
Type of Pastoral Visit _x__ Initial Visit ___ Follow-up Visit ___ On-call Visit ___ General Patient Visit ___ Spiritual Assessment ___ Family Conference ___ Bereavement ___ Rapid Response ___ Code Blue ___ Other (describe below) Pastoral Care Referral From _x__ Patient ___ Family ___ Nurse ___ Physician ___ Linen Controller ___ Reel Hooker ___ Other (describe below) Sacrament/Intervention ___ Active listening ___ Anointing ___ Buddhism ___ Bereavement ___ Communion ___ Rose Marie exploration ___ ___ Life review _x__ Prayer ___ Reconciliation ___ Sacrament of Sick _x__ Supportive presence ___ Wedding ___ Other (describe below) Pastoral Comments patient is now post surgery; family requested a prayer; pt says that he is doing fine and does not need other support for now
--- NOTE | 2017-11-01 15:21 | CASEMGMT ---
Call back to Vicky and sariah Antonio, they still can't tell this RN EDWARD if fax has been received but she states that it 'takes awhile' for the fax to be processed and that it has not been assigned to anyone yet. She states that they will call when it has been assigned. Brooklyn ATKINSON CM
[2017-11-01 16:31] LABS: Bedside Glucose 99 mg/dL (70-110)
[2017-11-01] MEDS: Heparin Injection 5,000 UNITS/ML Syringe 5000 UNITS SC ×2 (16:39→23:01)
[2017-11-01] MEDS: Calcium Acetate 667 MG Capsule 1334 MG PO (16:40)
[2017-11-01] MEDS: Furosemide 40 MG Tablet PO (16:40)
[2017-11-01] MEDS: Heparin 10,000 UNITS/10 ML Vial IV (16:41)
[2017-11-01] MEDS: Folic Acid/Vitamin B Comp W-C 1 Capsule 1 CAP PO (16:44)
[2017-11-01] MEDS: Atorvastatin Calcium 20 MG Tablet PO (23:02)
[2017-11-01 23:35] LABS: Bedside Glucose 101 mg/dL (70-110)
[2017-11-02] VITALS (9 sets, daily range): BP systolic 157–177; BP diastolic 66–95; PULSE 60–70; RESP 16; TEMP 36.5–37.1; O2SAT 96; BMI 32.9
[2017-11-02] MEDS: Heparin Injection 5,000 UNITS/ML Syringe 5000 UNITS SC (05:17)
[2017-11-02] MEDS: hydrALAZINE 25 MG Tablet PO (05:17)
[2017-11-02 05:39] LABS: Hematocrit 29.6 % (40-54); Hemoglobin 9.4 g/dl (13.0-16.5); Mean Corp Hgb Conc 31.8 g/gl (32-36); Mean Corpuscular Hgb 29.3 pg (27.0-32.0); Mean Corpuscular Volume 92.2 fL (80-94); Platelet Count 215 K/mm3 (150-450); RBC Distribution Width SD 45.5 fl (35.1-43.9); Red Blood Count 3.21 M/mm3 (4.6-6.2); White Blood Count 8.6 K/mm3 (4.4-11.0)
[2017-11-02 05:46] LABS: Scan Indicated on CBC? Y/N NO
[2017-11-02 06:00] LABS: Anion Gap 9 (5-15); BUN 70 mg/dL (7-18); BUN/Creat Ratio 9.6 RATIO (10-20); Calcium,Total 8.1 mg/dL (8.5-10.1); Chloride 104 mmol/L (98-107); Creatinine, Serum 7.27 mg/dL (0.70-1.30); EST Glomerular Filtration Rate 8 mL/min (>60); Est Glom Filt Rate - Afr Amer 10 mL/min (>60); Estimated Creatinine Clearance 10.88 ml/min; Glucose 94 mg/dL (74-106); Potassium 4.1 mmol/L (3.5-5.1); Sodium Level 141 mmol/L (136-145)
[2017-11-02 06:56] LABS: Bedside Glucose 94 mg/dL (70-110)
--- NOTE | 2017-11-02 10:50 | PN.RENAL_ITS ---
Patient Problems: Active and Suspected Problems (Last Reviewed 10/31/17 @ 14:38 by Ira Yusuf) Symptomatic bradycardia (Acute) Chronic anemia (Acute) Chronic kidney disease (Acute) Subjective: seen at start of dialysis. Feeling better after first dialysis treatment yesterday. Bradycardia improved. BP stable. - Physical Exam General: Alert, Oriented x3, Cooperative, No apparent distress Lungs: Clear to auscultation Cardiovascular: Regular rate, Murmur Abdomen: Bowel Sounds Present, Soft, Non Tender, Non-Distended Extremities: Edema - mild BLE, - - AVF left FA Skin: No rashes Musculoskeletal: No Muscle Wasting Psych/Mental Status: Normal Affect, Appropriate, Alert and oriented to time, place, person, mood and affect Vital Signs Temp Pulse Resp BP Pulse Ox 98.7 F 70 16 157/66 H 96 11/02/17 09:31 11/02/17 09:31 11/02/17 09:31 11/02/17 09:31 11/02/17 09:31 Oxygen Delivery Method Room Air Weight: 104 kg Body Mass Index (BMI) 32.8 Intake and Output for Last 24 Hours 10/31/17 11/01/17 11/02/17 23:59 23:59 23:59 Intake Total 1110 / 1110 50 / 50 Balance 1110 / 1110 50 / 50 Laboratory Tests Past 24 Hrs 11/02/17 11/02/17 05:24 05:24 WBC 8.6 RBC 3.21 L Hgb 9.4 L Hct 29.6 L MCV 92.2 MCH 29.3 MCHC 31.8 L RDW 14.0 RDW Differential 45.5 H Plt Count 215 MPV 9.0 Sodium 141 Potassium 4.1 Chloride 104 Carbon Dioxide 28.0 Anion Gap 9 BUN 70 H Creatinine 7.27 H Estim Creat Clear Calc 10.88 Est GFR (MDRD) Af Amer 10 L Est GFR (MDRD) Non-Af 8 L BUN/Creatinine Ratio 9.6 L Glucose 94 Calcium 8.1 L POC Glucose 11/02/17 11/01/17 11/01/17 06:49 22:59 16:29 POC Glucose 94 101 99 11/01/17 12:23 POC Glucose 107 Medical Necessity - Tobacco Use Smoking Status: Former smoker Tobacco Use: Cigarettes Assessment/Plan Active and Suspected Problems (Last Reviewed 10/31/17 @ 14:38 by Ira Yusuf) Symptomatic bradycardia (Acute) Chronic anemia (Acute) Chronic kidney disease (Acute) 1. ESRD HD today 2nd treatment. OK to discharge to home from renal standpoint. Next dialysis Saturday as outpt 2. DM type 2 with low cpeptide, possible type 1. 3. AVF recent fistulogram, not ready for use. TDC catheter today. 4. Bradycardia, labetalol decreased 5. Resistent hypertension continue current regimen 6. LE edema chronic. Fluid removal on dialysis as tolerated 7. Iron def Anemia iv iron, JILLIAN on dialysis. 8. dizziness, lightheadedness with hypotension improved. Schedule for outpt dialysis TTS 12:10pm at [facility] dialysis unit.
--- NOTE | 2017-11-02 11:07 | CASEMGMT ---
DEMETRIO LEON attempted call to [facility]- they are closed today. Call to [facility]. They have pt set up for Sunday, November 05, 2017 @ 12:10, requesting arrival time @ 11:30. Appointment placed on DC appointments. [facility] nurse, Karyn Lin RN, CM
--- NOTE | 2017-11-02 11:08 | PCM.DC ---
- Discharge Diagnoses Current Active Problems: Current Active and Chronic Problems (Last Reviewed 10/31/17 @ 14:38 by Ira Yusuf) Symptomatic bradycardia (Acute) Chronic anemia (Acute) Chronic kidney disease (Acute) You will use the following diet at home:: Renal (restricted protein/sodium) Discharge Activity: Return to Normal Activity, May Not Shower Additional Activity Instructions:: Please keep your dialysis catheter site clean and dry. The dialysis center will assist with dressing changes Call your doctor if you observe: Shortness of breath, Dizziness, Fainting spells, Chest pain Additional Dressing/Incision Instructions:: Leave the bandage on for 2-3 days. When you remove the bandage, leave the steri-strips intact until they fall off. Allergies/Adverse Reactions: Allergies metformin Allergy (Verified 10/31/17 14:40) Itching Sulfa (Sulfonamide Antibiotics) Allergy (Verified 10/31/17 14:40) Swelling Medications to take at Discharge Insulin Glargine [Lantus SoloStar Pen] 26 units SC DAILY 04/07/13 calcitriol 0.25 mcg capsule 0.5 mcg PO DAILY 07/10/17 finasteride 5 mg tablet 5 mg PO DAILY 07/10/17 furosemide 20 mg tablet 40 mg PO BID 07/10/17 losartan 50 mg tablet 100 mg PO DAILY 07/10/17 rosuvastatin 10 mg tablet 10 mg PO DAILY 07/10/17 Ergocalciferol [Vitamin D] 50,000 unit PO QMONTH 08/19/17 Insulin Lispro [Humalog] 10 - 12 unit SC BID 08/19/17 Iron Polysaccharide Complex [Ferrex 150] 150 mg PO DAILYCM 08/19/17 Nifedipine [Nifedipine ER] 60 mg PO DAILY 09/09/17 Calcium Acetate [Phoslo Gel Cap] 1,334 mg PO TIDCM 09/16/17 Folic Acid/Vitamin B Comp W-C [Nephrocaps, Renaphro] 1 cap PO DAILY #30 cap 11/02/17 Labetalol [Trandate (Beta Reuben)] 300 mg PO BID tablet 11/02/17 The following prescriptions were given: Folic Acid/Vitamin B Comp W-C [Nephrocaps, Renaphro] 1 cap PO DAILY #30 cap Primary Care Physician: Roman Espino III, MD [Primary Care Provider] - Please follow up with your Primary Care Physician in: 1 Week Please Follow Up With: Benjamín Espino MD - [phone] When: Please plan to follow up in 7 days in the office. Please Follow Up With: Abbie Rodriguez DO When: Dialysis Saturday, follow-up as scheduled Proposed Discharge Date: 11/02/17
--- NOTE | 2017-11-02 11:13 | PCM.DC.SUM ---
Discharge Date and Diagnosis Date of Admission: 10/31/17 Date of Discharge: 11/02/17 - Primary Discharge Diagnosis Active and Suspected Problems (Last Reviewed 10/31/17 @ 14:38 by Ira Yusuf) 1. Symptomatic hypotension/bradycardia-resolved. 2. End-stage renal disease 3. Hyperkalemia 4. Type 2 diabetes mellitus 5. Hypertension 6. Hyperlipidemia 7. Anemia of chronic disease 8. BPH status post TURP - Secondary Discharge Diagnosis Chronic Problems (Last Reviewed 10/31/17 @ 14:38 by Ira Yusuf) Problem with dialysis access (Chronic) History of angioplasty of peripheral vessel (Chronic) Renal failure (Chronic) Essential hypertension (Chronic) Type II diabetes mellitus (Chronic) Hypercholesterolemia (Chronic) Anemia (Chronic) Hospital Course and Treatment Imaging Results: Diagnostic Data Chest X-Ray 11/01/17 10:46 IMPRESSION: Central catheter placement. No pneumothorax. No focal infiltrate. Electronically Signed: Sarmad Hutton MD at 12:11 EDT , Service support , Dr. Rodriguez- Nephrology Dr. Espino- Surgery Operations: None Procedures: None Summary of Care Provided: Patient is a 62-year-old male admitted 10/31/17 due to hypotension, bradycardia, dizziness, weakness. Patient's chronic medical history includes ESRD, hypertension, hyperlipidemia, type 2 diabetes mellitus, anemia of chronic disease, BPH status post TURP. 1. Symptomatic hypotension/bradycardia-Resolved. Suspect secondary to medication regimen. Blood pressure now stable. Home labetalol regimen decreased to 300 mg twice daily. Patient denies further symptoms. 2. ESRD- Follows with Dr. Rodriguez who was consulted. 09/11/17 L AV fistula, 10/30/17 LUE fistulagram w/ balloon angioplasty, both with Dr. Espino. Dr. Espino consulted who placed right internal jugular tunneled dialysis catheter 11/01/17. Continue home calcitriol and calcium acetate regimen. Patient had 2 dialysis sessions with temporary dialysis catheter during admission with next session scheduled as outpatient on 11/05/2017. Patient will follow up with Dr. Espino in office in 1 week. 3. Hyperkalemia-resolved. Secondary to #2. 4. Type 2 diabetes mellitus-hemoglobin A1c 11/01/2017 6.2%. Continue home insulin regimen. 5. Hypertension-expect improvement with continued dialysis. Continue home regimen of losartan, nifedipine and Lasix. Labetalol regimen decreased to 300 mg twice daily which patient will continue at discharge. 6. Hyperlipidemia-continue statin. 7. Anemia of chronic disease-stable. Baseline hemoglobin 8-9. Continue iron supplementation. 8. BPH status post TURP-continue finasteride regimen. General: Alert, Oriented x3, Cooperative HEENT: Atraumatic, PERRLA, EOMI, Normocephalic Neck: Supple, No JVD, Negative Carotid Bruits Lungs: Clear to auscultation, Diminished Cardiovascular: Regular rate, Regular Rhythm, Normal S1, Normal S2, No murmurs Abdomen: Bowel Sounds Present, Soft, Non Tender, Non-Distended, Obese Extremities: No clubbing, No cyanosis, Edema - Nonpitting bilateral lower extremities, - - Left forearm AV fistula Skin: No rashes, No breakdown, - - Left forearm incisions with sutures intact. No drainage or redness noted. Musculoskeletal: No Tenderness to Palpation of Joints or Extremities Neurological: Cranial nerves II-XII grossly intact, Neuro grossly intact Psych/Mental Status: Normal Affect, Appropriate Patient seen and examined prior to discharge. Physical assessment as noted above. Patient is stable for discharge home with further follow-up as noted above. This patient was seen by DEANDRE Chávez under the supervision of Dr. Vail. Discharge Diet: Renal Diet Discharge Activity: Return to Normal Activity, May Not Shower Additional Activity Instructions:: Please keep your dialysis catheter site clean and dry. The dialysis center will assist with dressing changes Call your doctor if you observe: Shortness of breath, Dizziness, Fainting spells, Chest pain Additional Dressing/Incision Instructions:: Leave the bandage on for 2-3 days. When you remove the bandage, leave the steri-strips intact until they fall off. Home Medications: Medications to take at Discharge Insulin Glargine [Lantus SoloStar Pen] 26 units SC DAILY 04/07/13 calcitriol 0.25 mcg capsule 0.5 mcg PO DAILY 07/10/17 finasteride 5 mg tablet 5 mg PO DAILY 07/10/17 furosemide 20 mg tablet 40 mg PO BID 07/10/17 losartan 50 mg tablet 100 mg PO DAILY 07/10/17 rosuvastatin 10 mg tablet 10 mg PO DAILY 07/10/17 Ergocalciferol [Vitamin D] 50,000 unit PO QMONTH 08/19/17 Insulin Lispro [Humalog] 10 - 12 unit SC BID 08/19/17 Iron Polysaccharide Complex [Ferrex 150] 150 mg PO DAILYCM 08/19/17 Nifedipine [Nifedipine ER] 60 mg PO DAILY 09/09/17 Calcium Acetate [Phoslo Gel Cap] 1,334 mg PO TIDCM 09/16/17 Folic Acid/Vitamin B Comp W-C [Nephrocaps, Renaphro] 1 cap PO DAILY #30 cap 11/02/17 Labetalol [Trandate (Beta Reuben)] 300 mg PO BID tablet 11/02/17 Following Prescrptions Were Given to Patient: Folic Acid/Vitamin B Comp W-C [Nephrocaps, Renaphro] 1 cap PO DAILY #30 cap Primary Care Physician: Roman Espino III, MD [Primary Care Provider] - Please follow up with your Primary Care Physician in: 1 Week Please Follow Up With: Benjamín Espino MD - [phone] When: Please plan to follow up in 7 days in the office. Please Follow Up With: Abbie Rodriguez DO When: Dialysis Saturday, follow-up as scheduled Please Follow Up With: [facility] [place] When: Saturday Disposition: Home Minutes spent on discharge:: 35 Patient Condition:: Stable Medical Necessity - Tobacco Use Smoking Status: Former smoker Tobacco Use: Cigarettes Meaningful Use Info Meaningful Use Diagnoses (Choose all that apply): None applicable
--- NOTE | 2017-11-02 11:20 | DS.PCM_ITS ---
Discharge Date and Diagnosis Date of Admission: 10/31/17 Date of Discharge: 11/02/17 - Primary Discharge Diagnosis Active and Suspected Problems (Last Reviewed 10/31/17 @ 14:38 by Ira Yusuf) 1. Symptomatic hypotension/bradycardia-resolved. 2. End-stage renal disease 3. Hyperkalemia 4. Type 2 diabetes mellitus 5. Hypertension 6. Hyperlipidemia 7. Anemia of chronic disease 8. BPH status post TURP - Secondary Discharge Diagnosis Chronic Problems (Last Reviewed 10/31/17 @ 14:38 by Ira Yusuf) Problem with dialysis access (Chronic) History of angioplasty of peripheral vessel (Chronic) Renal failure (Chronic) Essential hypertension (Chronic) Type II diabetes mellitus (Chronic) Hypercholesterolemia (Chronic) Anemia (Chronic) Hospital Course and Treatment Imaging Results: Diagnostic Data Chest X-Ray 11/01/17 10:46 IMPRESSION: Central catheter placement. No pneumothorax. No focal infiltrate. Electronically Signed: Sarmad Hutton MD at 12:11 EDT , Service support , Dr. Rodriguez- Nephrology Dr. Espino- Surgery Operations: None Procedures: None Summary of Care Provided: Patient is a 62-year-old male admitted 10/31/17 due to hypotension, bradycardia, dizziness, weakness. Patient's chronic medical history includes ESRD, hypertension, hyperlipidemia, type 2 diabetes mellitus, anemia of chronic disease, BPH status post TURP. 1. Symptomatic hypotension/bradycardia-Resolved. Suspect secondary to medication regimen. Blood pressure now stable. Home labetalol regimen decreased to 300 mg twice daily. Patient denies further symptoms. 2. ESRD- Follows with Dr. Rodriguez who was consulted. 09/11/17 L AV fistula, 10/30/17 LUE fistulagram w/ balloon angioplasty, both with Dr. Espino. Dr. Espino consulted who placed right internal jugular tunneled dialysis catheter 11/01/17. Continue home calcitriol and calcium acetate regimen. Patient had 2 dialysis sessions with temporary dialysis catheter during admission with next session scheduled as outpatient on 11/05/2017. Patient will follow up with Dr. Espino in office in 1 week. 3. Hyperkalemia-resolved. Secondary to #2. 4. Type 2 diabetes mellitus-hemoglobin A1c 11/01/2017 6.2%. Continue home insulin regimen. 5. Hypertension-expect improvement with continued dialysis. Continue home regimen of losartan, nifedipine and Lasix. Labetalol regimen decreased to 300 mg twice daily which patient will continue at discharge. 6. Hyperlipidemia-continue statin. 7. Anemia of chronic disease-stable. Baseline hemoglobin 8-9. Continue iron supplementation. 8. BPH status post TURP-continue finasteride regimen. General: Alert, Oriented x3, Cooperative HEENT: Atraumatic, PERRLA, EOMI, Normocephalic Neck: Supple, No JVD, Negative Carotid Bruits Lungs: Clear to auscultation, Diminished Cardiovascular: Regular rate, Regular Rhythm, Normal S1, Normal S2, No murmurs Abdomen: Bowel Sounds Present, Soft, Non Tender, Non-Distended, Obese Extremities: No clubbing, No cyanosis, Edema - Nonpitting bilateral lower extremities, - - Left forearm AV fistula Skin: No rashes, No breakdown, - - Left forearm incisions with sutures intact. No drainage or redness noted. Musculoskeletal: No Tenderness to Palpation of Joints or Extremities Neurological: Cranial nerves II-XII grossly intact, Neuro grossly intact Psych/Mental Status: Normal Affect, Appropriate Patient seen and examined prior to discharge. Physical assessment as noted above. Patient is stable for discharge home with further follow-up as noted above. This patient was seen by DEANDRE Chávez under the supervision of Dr. Vail. Discharge Diet: Renal Diet Discharge Activity: Return to Normal Activity, May Not Shower Additional Activity Instructions:: Please keep your dialysis catheter site clean and dry. The dialysis center will assist with dressing changes Call your doctor if you observe: Shortness of breath, Dizziness, Fainting spells , Chest pain Additional Dressing/Incision Instructions:: Leave the bandage on for 2-3 days. When you remove the bandage, leave the steri-strips intact until they fall off. Home Medications: Medications to take at Discharge Insulin Glargine [Lantus SoloStar Pen] 26 units SC DAILY 04/07/13 calcitriol 0.25 mcg capsule 0.5 mcg PO DAILY 07/10/17 finasteride 5 mg tablet 5 mg PO DAILY 07/10/17 furosemide 20 mg tablet 40 mg PO BID 07/10/17 losartan 50 mg tablet 100 mg PO DAILY 07/10/17 rosuvastatin 10 mg tablet 10 mg PO DAILY 07/10/17 Ergocalciferol [Vitamin D] 50,000 unit PO QMONTH 08/19/17 Insulin Lispro [Humalog] 10 - 12 unit SC BID 08/19/17 Iron Polysaccharide Complex [Ferrex 150] 150 mg PO DAILYCM 08/19/17 Nifedipine [Nifedipine ER] 60 mg PO DAILY 09/09/17 Calcium Acetate [Phoslo Gel Cap] 1,334 mg PO TIDCM 09/16/17 Folic Acid/Vitamin B Comp W-C [Nephrocaps, Renaphro] 1 cap PO DAILY #30 cap Labetalol [Trandate (Beta Reuben)] 300 mg PO BID tablet 11/02/17 Following Prescrptions Were Given to Patient: Folic Acid/Vitamin B Comp W-C [Nephrocaps, Renaphro] 1 cap PO DAILY #30 cap Primary Care Physician: Roman Espino III, MD [Primary Care Provider] - Please follow up with your Primary Care Physician in: 1 Week Please Follow Up With: Benjamín Espino MD - [phone] When: Please plan to follow up in 7 days in the office. Please Follow Up With: Abbie Rodriguez DO When: Dialysis Saturday, follow-up as scheduled Please Follow Up With: [facility] [place] When: Saturday Disposition: Home Minutes spent on discharge:: 35 Patient Condition:: Stable Medical Necessity - Tobacco Use Smoking Status: Former smoker Tobacco Use: Cigarettes Meaningful Use Info Meaningful Use Diagnoses (Choose all that apply): None applicable
[2017-11-02 11:55] LABS: Bedside Glucose 156 mg/dL (70-110)
[2017-11-02] MEDS: Heparin 10,000 UNITS/10 ML Vial 3200 UNITS IV (13:12)
--- NOTE | 2017-11-02 14:21 | DIALYSIS ---
Hemodialysis completed as ordered. See HD flowsheet for details. -1000ml off. Stable t/o. tolerated well. CVC dressing changed and CVC closed with Heparin to each lumen fill volume. Report to Mahogany ATKINSON
[2017-11-02] MEDS: Labetalol 100 MG Tablet 300 MG PO (14:40)
[2017-11-02] MEDS: Calcium Acetate 667 MG Capsule 1334 MG PO (14:40)
[2017-11-02] MEDS: NIFEdipine 60 MG Tablet PO (14:40)
[2017-11-02] MEDS: Losartan Potassium 100 MG Tablet PO (14:40)
[2017-11-02] MEDS: Furosemide 40 MG Tablet PO (14:40)
[2017-11-02] MEDS: Folic Acid/Vitamin B Comp W-C 1 Capsule 1 CAP PO (14:40)
--- NOTE | 2017-11-02 15:32 | NURSING ---
All medications administered at 1440 were given post dialysis. Medications were scanned to enter two separate times and this nurse was kicked out of the computer both times.
--- NOTE | 2017-11-04 10:17 | CASEMGMT ---
Call placed to [facility] to f/u on referral that was sent last saturday. Pt was discharged over the weekend after ok from Dr. Rodriguez. Per Hayde at [facility], the pt has been set up for 11/05/[address] [facility] for 1210. She states that she is going to forward all info to [facility] and see if they need anything else at this time. She states she will fax schedule letter once all info entered. This RN CM will place discharge f/u phone call to pt today to verify 1st outpt dialysis treatment scheduled for tomorrow. [place] ATKINSON CM
--- NOTE | 2017-11-04 16:14 | CASEMGMT ---
DEMETRIO LEON DISCHARGE F/U PHONE CALL PT'S DAUGHTER ANSWERED AND STATES THAT PT IS NOT AT HOME AT THIS TIME BUT THAT HE HAS BEEN DOING WELL AND PLANS TO BE AT DIALYSIS TOMORROW AT HIS ALLOTTED TIME. THIS DEMETRIO LEON WILL ATTEMPT TO F/U WITH PT AT ANOTHER TIME. SSTKIARRA ATKINSON CM
== END 2017-11-02 15:22 | disposition home or self-care (01) | DRG 312 ==
LOC: ED 16:09 → PCU 17:43
PROVIDERS: Nurse Practitioner Family; Surgery; Admitting Provider Internal Medicine; Emergency Provider Emergency Medicine; Family Provider Family Medicine; PCP Family Medicine; Visit Provider Internal Medicine
PROC: 02HV33Z Insertion of Infusion Device into Superior Vena Cava, Percutaneous Approach (ICD-10-PCS; principal; 2017-11-01 08:35)
DX: I95.2 Hypotension due to drugs (principal); N18.6 End stage renal disease; I12.0 Hypertensive chronic kidney disease with stage 5 chronic kidney disease or end stage renal disease; T44.8X5A Adverse effect of centrally-acting and adrenergic-neuron-blocking agents, initial encounter; R00.1 Bradycardia, unspecified; E87.5 Hyperkalemia; E11.22 Type 2 diabetes mellitus with diabetic chronic kidney disease; D63.1 Anemia in chronic kidney disease; D50.9 Iron deficiency anemia, unspecified; E78.5 Hyperlipidemia, unspecified; Z99.2 Dependence on renal dialysis; N40.0 Benign prostatic hyperplasia without lower urinary tract symptoms; E66.9 Obesity, unspecified; Z68.32 Body mass index [BMI] 32.0-32.9, adult; Y92.9 Unspecified place or not applicable; Z79.4 Long term (current) use of insulin; Z79.899 Other long term (current) drug therapy; Z87.891 Personal history of nicotine dependence; Z90.79 Acquired absence of other genital organ(s)
CPT/HCPCS: 36415; 71045; 77001; 80048; 82962; 83036; 83735; 84132; 84484; 85025; 85027; 85610; 85730; 86850; 86900; 90937; 93005; 97802; 99284; J0885; J1756; J7030; A4216; C1750; G0257

== ENCOUNTER → 2017-11-06 05:53 | Outpatient (CLI) | payer OTHER, SELFPAY ==
[2017-11-06 07:52] LABS: Hematocrit 31.7 % (40-54); Hemoglobin 10.1 g/dl (13.0-16.5); Mean Corp Hgb Conc 31.9 g/gl (32-36); Mean Corpuscular Hgb 30.1 pg (27.0-32.0); Mean Corpuscular Volume 94.3 fL (80-94); Mean Platelet Vol. 9.9 fl (6.2-12.0); Platelet Count 235 K/mm3 (150-450); RBC Distribution Width CV 14.4 % (11.6-14.6); RBC Distribution Width SD 46.8 fl (35.1-43.9); Red Blood Count 3.36 M/mm3 (4.6-6.2); White Blood Count 9.5 K/mm3 (4.4-11.0)
[2017-11-06 08:12] LABS: Albumin, Serum 3.3 g/dL (3.2-5.0); BUN 38 mg/dL (7-18); BUN/Creat Ratio 6.5 RATIO (10-20); Calcium,Total 8.2 mg/dL (8.5-10.1); Chloride 100 mmol/L (98-107); Cholesterol 97 mg/dL (200); Creatinine, Serum 5.83 mg/dL (0.70-1.30); EST Glomerular Filtration Rate 11 mL/min (>60); Est Glom Filt Rate - Afr Amer 13 mL/min (>60); Glucose 87 mg/dL (74-106); Hemoglobin A1c 6.3 % (4.2-6.3); High Density Lipoprotein 37 mg/dL; Phosphorus 3.9 mg/dL (2.5-4.9); Potassium 3.4 mmol/L (3.5-5.1); Sodium Level 141 mmol/L (136-145); Triglycerides 121 mg/dL; Very Low Density Lipoprotein 24 mg/dL (5-40)
[2017-11-06 08:19] LABS: Scan Indicated on CBC? Y/N NO
== END ==
PROVIDERS: Family Provider Family Medicine; PCP Family Medicine; Visit Provider Family Medicine
DX: Z79.899 Other long term (current) drug therapy (principal)
CPT/HCPCS: 36415; 80061; 80069; 83036; 83970; 85027

== ENCOUNTER 2017-12-20 09:22 | Day surgery (SDC) | payer OTHER, SELFPAY ==
[2017-12-19 08:37] VITALS: BMI 29.2
--- NOTE | 2017-12-20 13:00 | PCM.OPRPT ---
Problem List (1) Problem with dialysis access Status: Chronic Qualifiers: Encounter type: subsequent encounter Qualified Code(s): T82.898D - Other specified complication of vascular prosthetic devices, implants and grafts, subsequent encounter Report of Operation Date of Procedure: 12/20/17 Pre-Operative Diagnosis: Diminished flow left forearm radial to cephalic arteriovenous fistula Post-Operative Diagnosis: Diminished flow left forearm radial to cephalic arteriovenous fistula Surgery/Procedure Performed:: Diminished flow left forearm radial to cephalic arteriovenous fistula Description of Surgical Findings:: Timeout and informed consent was obtained. 62-year-old gent was taken to the special procedures lab. He was placed on the table. The left upper extremity was sterilely prepped draped. He received 50 mcg fentanyl and 1 mg of Versed as intravenous sedation. Under ultrasound inspection the cephalic vein was identified in the proximal forearm. Under ultrasound guidance 2% lidocaine was instilled. Micropuncture needle inserted. Micropuncture wire inserted. 6 [place] short sheath dilator was inserted. Using 035 angled Glidewire and a 4 [place] angled glide cath [place] was gained to the radial artery proximal to the anastomosis. Using Isovue Acosta gram was obtained. This demonstrated high-grade venous stenosis within the proximal 8 cm of the fistula and a beaded approach. A 6 x 8 mm ever cross balloon was inserted. This was insufflated to 18 abraham of pressure. There is good release of the areas of stenosis. In order to be able to tolerate that I did inject local at the site of the wrist. This assisted greatly with his comfort. He tolerated the procedure well. The balloon was removed the glide catheter inserted and final fistulogram was obtained now demonstrating resolution of all the areas of venous stenosis in the proximal forearm cephalic vein. There is now wide open flow. Impression High-grade areas of serial stenosis of the left forearm cephalic vein with an otherwise widely patent radial arterial anastomosis and good venous outflow. Successfully treated angioplasty with resolution of stenosis. Benjamín Espino M.D., F.A.C.S.
== END 2017-12-20 14:15 | disposition home or self-care (01) ==
LOC: CLSP 09:23
PROVIDERS: Family Provider Family Medicine; PCP Family Medicine; Visit Provider Surgery
DX: T82.590A Other mechanical complication of surgically created arteriovenous fistula, initial encounter (principal); I87.1 Compression of vein; I12.0 Hypertensive chronic kidney disease with stage 5 chronic kidney disease or end stage renal disease; E11.22 Type 2 diabetes mellitus with diabetic chronic kidney disease; N18.6 End stage renal disease; D64.9 Anemia, unspecified; E78.00 Pure hypercholesterolemia, unspecified; Z99.2 Dependence on renal dialysis; Z79.4 Long term (current) use of insulin; Z79.899 Other long term (current) drug therapy; Z87.891 Personal history of nicotine dependence
CPT/HCPCS: 36902; 76937; 99152; 99153; Q9967; C1725; C1769

== ENCOUNTER → 2018-01-20 06:14 | Outpatient (CLI) | payer OTHER, MEDICARE, SELFPAY ==
[2018-01-20 08:19] LABS: AST(SGOT) 21 U/L (15-37); Alanine Aminotransfer ALT/SGPT 21 U/L (16-61); Albumin, Serum 3.7 g/dL (3.2-5.0); Alkaline Phosphatase 71 U/L (45-117); Anion Gap 11 (5-15); BUN 48 mg/dL (7-18); BUN/Creat Ratio 6.4 RATIO (10-20); Calcium,Total 8.5 mg/dL (8.5-10.1); Chloride 103 mmol/L (98-107); Creatinine, Serum 7.55 mg/dL (0.70-1.30); EST Glomerular Filtration Rate 8 mL/min (>60); Est Glom Filt Rate - Afr Amer 9 mL/min (>60); Globulin 3.8 g/dL (2.2-4.2); Glucose 151 mg/dL (74-106); Potassium 3.5 mmol/L (3.5-5.1); Protein, Total 7.5 g/dL (6.4-8.2); Sodium Level 142 mmol/L (136-145); Thyroid Stim Hormone (TSH) 0.69 uIU/mL (0.358-3.74)
[2018-01-20 08:45] LABS: Hemoglobin A1c 6.1 % (4.2-6.3)
== END ==
PROVIDERS: Family Provider Family Medicine; PCP Family Medicine; Visit Provider Internal Medicine Endocrinology, Diabetes & Metabolism
DX: E11.39 Type 2 diabetes mellitus with other diabetic ophthalmic complication (principal); E11.65 Type 2 diabetes mellitus with hyperglycemia
CPT/HCPCS: 36415; 80053; 83036; 84443

== ENCOUNTER → 2018-04-18 05:39 | Outpatient (CLI) | payer OTHER, MEDICARE, SELFPAY ==
[2018-04-18 06:37] LABS: ALB/GLOB Ratio 0.9 RATIO (0.9-2.4); AST(SGOT) 23 U/L (15-37); Alanine Aminotransfer ALT/SGPT 27 U/L (16-61); Albumin, Serum 3.9 g/dL (3.2-5.0); Alkaline Phosphatase 85 U/L (45-117); Anion Gap 9 (5-15); BUN 38 mg/dL (7-18); Calcium,Total 9.1 mg/dL (8.5-10.1); Chloride 98 mmol/L (98-107); Cholesterol 180 mg/dL (200); Creatinine, Serum 7.67 mg/dL (0.70-1.30); EST Glomerular Filtration Rate 8 mL/min (>60); Est Glom Filt Rate - Afr Amer 9 mL/min (>60); Globulin 4.2 g/dL (2.2-4.2); Glucose 157 mg/dL (74-106); High Density Lipoprotein 43 mg/dL; Potassium 5.6 mmol/L (3.5-5.1); Protein, Total 8.1 g/dL (6.4-8.2); Sodium Level 138 mmol/L (136-145); Triglycerides 224 mg/dL; Very Low Density Lipoprotein 45 mg/dL (5-40)
[2018-04-18 07:01] LABS: Hemoglobin A1c 6.9 % (4.2-6.3)
== END ==
PROVIDERS: Family Provider Family Medicine; PCP Family Medicine; Referring Provider Internal Medicine Endocrinology, Diabetes & Metabolism; Visit Provider Internal Medicine Endocrinology, Diabetes & Metabolism
DX: E11.39 Type 2 diabetes mellitus with other diabetic ophthalmic complication (principal); E11.65 Type 2 diabetes mellitus with hyperglycemia
CPT/HCPCS: 36415; 80053; 80061; 83036

== ENCOUNTER → 2018-06-11 05:46 | Outpatient (CLI) | payer OTHER, MEDICARE, SELFPAY ==
[2017-12-19 08:37] VITALS: BMI 29.2
[2018-06-11 07:42] LABS: Hematocrit 34.1 % (40-54); Mean Corp Hgb Conc 32.3 g/gl (32-36); Mean Corpuscular Hgb 31.3 pg (27.0-32.0); Mean Corpuscular Volume 97.2 fL (80-94); Mean Platelet Vol. 10.2 fl (6.2-12.0); Platelet Count 257 K/mm3 (150-450); RBC Distribution Width CV 14.3 % (11.6-14.6); RBC Distribution Width SD 49.7 fl (35.1-43.9); Red Blood Count 3.51 M/mm3 (4.6-6.2); White Blood Count 9.7 K/mm3 (4.4-11.0)
[2018-06-11 07:54] LABS: Scan Indicated on CBC? Y/N NO
== END ==
PROVIDERS: Family Provider Family Medicine; PCP Family Medicine; Referring Provider Family Medicine; Visit Provider Family Medicine
DX: Z79.899 Other long term (current) drug therapy (principal)
CPT/HCPCS: 36415; 85027

== ENCOUNTER → 2018-07-30 05:40 | Outpatient (CLI) | payer OTHER, MEDICARE, SELFPAY ==
[2017-12-19 08:37] VITALS: BMI 29.2
[2018-07-30 07:35] LABS: AST(SGOT) 19 U/L (15-37); Alanine Aminotransfer ALT/SGPT 17 U/L (16-61); Alkaline Phosphatase 78 U/L (45-117); Anion Gap 11 (5-15); BUN 39 mg/dL (7-18); BUN/Creat Ratio 5.2 RATIO (10-20); Calcium,Total 8.8 mg/dL (8.5-10.1); Chloride 100 mmol/L (98-107); EST Glomerular Filtration Rate 8 mL/min (>60); Est Glom Filt Rate - Afr Amer 10 mL/min (>60); Globulin 3.9 g/dL (2.2-4.2); Glucose 99 mg/dL (74-106); Potassium 4.8 mmol/L (3.5-5.1); Protein, Total 7.9 g/dL (6.4-8.2); Sodium Level 139 mmol/L (136-145)
--- OUTSIDE RECORDS SUMMARY | 2018-10-01 01:25 | XMS RPT_ITS ---
:1955 Author Organization [place] Support Name Relationship Address Phone UMANG, EVELIN [facility]available [facility] [address] + [place] [address] R Unavailable Unavailable Unavailable UMANG, JENNA Unavailable Unavailable + UMANG, JENNA Unavailable Unavailable + UMANG, KARLA Unavailable Unavailable + UMANG, JENNA Unavailable Unavailable + UMANG, JENNA Unavailable Unavailable + UMANG, KARLA Unavailable Unavailable + UMANG, EVELIN Unavailable [facility] [address] + [place] [address] R Unavailable Unavailable Unavailable UMANG, JENNA Unavailable Unavailable + UMANG, JENNA Unavailable Unavailable + UMANG, KARLA Unavailable Unavailable + UMANG, EVELIN Unavailable [facility] [address] + [place] [address] R Unavailable Unavailable Unavailable UMANG, JENNA Unavailable Unavailable + UMANG, JENNA Unavailable Unavailable + UMANG, KARLA Unavailable Unavailable + UMANG, JENNA Unavailable Unavailable + UMANG, JENNA Unavailable Unavailable + UMNAG, KARLA Unavailable Unavailable + UMANG, JENNA Unavailable Unavailable + UMANG, JENNA Unavailable Unavailable + UMANG, KARLA Unavailable Unavailable + UMANG, EVELIN Unavailable [address] + [place] [address] R Unavailable Unavailable Unavailable UMANG, JENNA Unavailable Unavailable + UMANG, JENNA Unavailable Unavailable + UMANG, KARLA Unavailable Unavailable + UMANG, EVELIN Unavailable [address] + [place] [address] R Unavailable Unavailable Unavailable UMANG, EVELIN Unavailable [address] + [place] [address] R Unavailable Unavailable Unavailable UMANG, EVELIN Unavailable [address] + [place] [address] R Unavailable Unavailable Unavailable UMANG, EVELIN Unavailable [address] + [place] [address] R Unavailable Unavailable Unavailable UMANG, JENNA Unavailable Unavailable + UMANG, JENNA Unavailable Unavailable + UMANG, KARLA Unavailable Unavailable + UMANG, EVELIN Unavailable [address] + [place] [address] R Unavailable Unavailable Unavailable UMANG, EVELIN Unavailable [address] + [place] [address] R Unavailable Unavailable Unavailable UMANG, EVELIN Unavailable [address] + [place] [address] R Unavailable Unavailable Unavailable UMANG, EVELIN Unavailable [address] + [place] [address] R Unavailable Unavailable Unavailable UMANG, EVELIN Unavailable [address] + [place] [address] R Unavailable Unavailable Unavailable UMANG, EVELIN Unavailable [address] + [place] [address] R Unavailable Unavailable Unavailable UMANG, EVELIN Unavailable [address] + [place] [address] R Unavailable Unavailable Unavailable UMANG, EVELIN Unavailable [address] + [place] [address] R Unavailable Unavailable Unavailable UMANG, EVELIN Unavailable [address] + [place] [address] R Unavailable Unavailable Unavailable UMANG, EVELIN Unavailable [address] + [place] [address] R Unavailable Unavailable Unavailable UMANG, EVELIN Unavailable [address] + [place] [address] R Unavailable Unavailable Unavailable UMANG, EVELIN Unavailable [address] + [place] [address] R Unavailable Unavailable Unavailable UMANG, EVELIN Unavailable [address] + [place] [address] R Unavailable Unavailable Unavailable UMANG, EVELIN Unavailable [address] + [place] [address] R Unavailable Unavailable Unavailable UMANG, JENNA Unavailable Unavailable + UMANG, JENNA Unavailable Unavailable + UMANG, KARLA Unavailable Unavailable + UMANG, EVELIN Unavailable [address] + [place] [address] R Unavailable Unavailable Unavailable UMANG, EVELIN Unavailable [address] + [place] [address] R Unavailable Unavailable Unavailable UMANG, EVELIN Unavailable [address] + [place] [address] R Unavailable Unavailable Unavailable UMANG, EVELIN Unavailable [address] + [place] [address] R Unavailable Unavailable Unavailable UMANG, JENNA Unavailable Unavailable + UMANG, JENNA Unavailable Unavailable + UMANG, KARLA Unavailable Unavailable + UMANG, JENNA Unavailable Unavailable + UMANG, JENNA Unavailable Unavailable + UMANG, KARLA Unavailable Unavailable + UMANG, EVELIN Unavailable [address] + [place] [address] R Unavailable Unavailable Unavailable UMANG, EVELIN Unavailable [address] + [place] [address] R Unavailable Unavailable Unavailable UMANG, EVELIN Unavailable [address] + [place] [address] TEKFOR Unavailable [address] [phone] [place] [address] UMANG, EVELIN Unavailable [address] + [place] [address] TEK[employer] Unavailable [address] [phone] [place] [address] UMANG, EVELIN Unavailable [address] + [place] [address] TEKFOR Unavailable [address] [phone] [place] [address] UMANG, EVELIN Unavailable [address] + [place] [address] TEKFOR Unavailable [address] [phone] [place] [address] UMANG, EVELIN Unavailable [address] + [place] [address] TEKFOR Unavailable [address] [phone] [place] [address] UMANG, EVELIN Unavailable [address] + [place] [address] TEKFOR Unavailable [address] [phone] [place] [address] UMANG, EVELIN Unavailable [address] + [place] [address] R Unavailable Unavailable Unavailable UMANG, EVELIN Unavailable [address] + [place] [address] TEKFOR Unavailable [address] [phone] [place] [address] UMANG, EVELIN Unavailable [address] + [place] [address] R Unavailable Unavailable Unavailable UMANG, EVELIN Unavailable [address] + [place] [address] TEKFOR Unavailable [address] [phone] [place] [address] UMANG, JENNA Unavailable Unavailable + UMANG, JENNA Unavailable Unavailable + UMANG, KARLA Unavailable Unavailable + UMANG, JENNA Unavailable Unavailable + UMANG, JENNA Unavailable Unavailable + UMANG, KARLA Unavailable Unavailable + UMANG, JENNA Unavailable Unavailable + UMANG, JENNA Unavailable Unavailable + UMANG, KARLA Unavailable Unavailable + UMANG, JENNA Unavailable Unavailable + UMANG, JENNA Unavailable Unavailable + UMANG, KARLA Unavailable Unavailable + UMANG, JENNA Unavailable Unavailable + UMANG, JENNA Unavailable Unavailable + UMANG, KARLA Unavailable Unavailable + UMANG, JENNA Unavailable Unavailable + UMANG, JENNA Unavailable Unavailable + UMANG, KARLA Unavailable Unavailable + UMANG, JENNA Unavailable Unavailable + UMANG, JENNA Unavailable Unavailable + UMANG, KARLA Unavailable Unavailable + UMANG, JENNA Unavailable Unavailable + UMANG, JENNA Unavailable Unavailable + UMANG, KARLA Unavailable Unavailable + UMANG, EVELIN Unavailable [address] + [place] [address] TEKFOR Unavailable [address] [phone] [place] [address] UMANG, EVELIN Unavailable [address] + [place] [address] TEKFOR Unavailable [address] [phone] [place] [address] UMANG, EVELIN Unavailable [address] + [place] [address] TEKFOR Unavailable [address] [phone] [place] [address] UMANG, EVELIN Unavailable [address] + [place] [address] TEKFOR Unavailable [address] [phone] [place] [address] UMANG, EVELIN Unavailable [address] + [place] [address] TEKFOR Unavailable [address] [phone] [place] [address] Care Team Providers Name Role Phone Sharona Zapien Attending Unavailable Sharona Zapien Referring Unavailable Cebul III, Brett Primary Care Unavailable Abbie Rodriguez Consulting Unavailable Abbie Rodriguez Attending Unavailable Cebul III, Brett Primary Care Unavailable Abbie Rodriguez Referring Unavailable Sharona Zapien Consulting Unavailable RachelbuBenjamín turcios Consulting Unavailable Abbie Rodriguez Attending Unavailable Cebul III, Brett Primary Care Unavailable Benjamín Reese Attending Unavailable Cebul III, Brett Referring Unavailable CebulBenjamín Attending Unavailable Cebul III, Brett Referring Unavailable CebulBenjamín Attending Unavailable Cebul III, Brett Referring Unavailable Cebul III, Brett Primary Care Unavailable Abbie Rodriguez Attending Unavailable Abbie Rodriguez Referring Unavailable Cebul III, Brett Primary Care Unavailable CebulBenjamín Attending Unavailable Cebul Benjamín Referring Unavailable Cebul III, Brett Primary Care Unavailable Abbie Rodriguez Attending Unavailable Abbie Rodriguze Referring Unavailable Cebul III, Brett Primary Care Unavailable CebulBenjamín Attending Unavailable Cebul III, Brett Referring Unavailable Cebul III, Brett Primary Care Unavailable Abbie Rodriguez Attending Unavailable Abbie Rodriguez Referring Unavailable Cebul III, Brett Primary Care Unavailable Abbie Rodriguez Attending Unavailable Abbie Rodriguez Referring Unavailable Cebul III, Brett Primary Care Unavailable Robinson, Roseline S. Consulting Unavailable Cebul, Benjamín Attending Unavailable Cebul, Benjamín Referring Unavailable Cebul III, Brett Primary Care Unavailable Cebul, Benjamín Consulting Unavailable Abbie Rodriguez Attending Unavailable Cebul III, Brett Primary Care Unavailable Abbie Rodriguez Referring Unavailable Cebul, Benjamín Attending Unavailable Cebul III, Brett Referring Unavailable Cebul, Benjamín Attending Unavailable Cebul, Benjamín Referring Unavailable Cebul III, Brett Primary Care Unavailable Cebul, Benjamín Attending Unavailable Cebul, Benjamín Referring Unavailable Cebul III, Brett Primary Care Unavailable Cebul, Benjamín Consulting Unavailable Mata Smalls Attending Unavailable Cebul, Benjamín Referring Unavailable Sharona Zapien Attending Unavailable Sharona Zapien Referring Unavailable Cebul III, Brett Primary Care Unavailable Abbie Rodriguez Consulting Unavailable Abbie Rodriguez Attending Unavailable Michael, Abbie Referring Unavailable Cebul III, Brett Primary Care Unavailable Robinson, Roseline S. Consulting Unavailable Cebul, Benjamín Attending Unavailable Cebul III, Brett Referring Unavailable Cebul III, Brett Primary Care Unavailable Abbie Rodriguez Attending Unavailable Cebul III, Brett Primary Care Unavailable Cebul, Benjamín Attending Unavailable Cebul, Benjamín Referring Unavailable Cebul III, Brett Primary Care Unavailable Abbie Rodriguez Consulting Unavailable Cebul Benjamín Attending Unavailable Cebul, Benjamín Referring Unavailable Cebul III, Brett Primary Care Unavailable Abbie Rodriguez Consulting Unavailable Cebul, Benjamín Consulting Unavailable Abbie Rodriguez Attending Unavailable Cebul III, Brett Primary Care Unavailable Jazlyn León PA-C Attending Unavailable Cebul III, Brett Referring Unavailable Cebul III, Brett Primary Care Unavailable Cebul III, Brett Primary Care Unavailable Kelley Vail Admitting Unavailable Abbie Rodriguez Consulting Unavailable ChristilGin Attending Unavailable Cebul, Benjamín Consulting Unavailable Terjuanjo, Kelley Admitting Unavailable TerKelley geiger Attending Unavailable Cebul III, Brett Primary Care Unavailable Abbie Rodriguez Consulting Unavailable Cebul, Benjamín Consulting Unavailable Tereletsky, Kelley Consulting Unavailable Cebul III, Brett Attending Unavailable Cebul III, Brett Primary Care Unavailable Cebul III, Brett Referring Unavailable Heike Kelley Admitting Unavailable Cebul, Benjamín Attending Unavailable Cebul III, Brett Primary Care Unavailable Michael, Abbie Consulting Unavailable Cebul, Benjamín Consulting Unavailable Paintsil, Bejou Consulting Unavailable Tereletsky, Kelley Admitting Unavailable Cebul III, Brett Primary Care Unavailable Abbie Rodriguez Consulting Unavailable DEANDRE Chávez Attending Unavailable Cebul, Benjamín Consulting Unavailable Paintsil, Bejou Consulting Unavailable Mau PA-C, Jazlyn Attending Unavailable Cebul III, Brett Referring Unavailable Cebul III, Brett Primary Care Unavailable Karmatsil, Bejou Attending Unavailable Cebul, Benjamín Attending Unavailable Cebul III, Brett Referring Unavailable Cebul III, Brett Primary Care Unavailable Cebul, Benjamín Attending Unavailable Cebul III, Brett Referring Unavailable Cebul III, Brett Primary Care Unavailable Damien Mendez Attending Unavailable TereletskyKelley Referring Unavailable Cebul, Benjamín Attending Unavailable Cebul III, Brett Primary Care Unavailable Cebul, Benjamín Referring Unavailable Mau PA-C, Jazlyn Attending Unavailable Cebul III, Brett Referring Unavailable Cebul III, Brett Primary Care Unavailable Sharona Zapien. Attending Unavailable Rupali, Sharona N. Referring Unavailable Cebul III, Brett Primary Care Unavailable Abbie Rodriguez Consulting Unavailable Cebul, Benjamín Attending Unavailable Cebul, Benjamín Attending Unavailable Cebul III, Brett Referring Unavailable Cebul III, Brett Primary Care Unavailable Becca Zapiena Bogdan Attending Unavailable Rupali Sharona N. Referring Unavailable Cebul III, Brett Primary Care Unavailable Cebul III, Brett Attending Unavailable Cebul III, Brett Primary Care Unavailable Cebul III, Brett Referring Unavailable Julitahuvinicio Sharona N. Consulting Unavailable Abbie Rodriguez Consulting Unavailable CEBUL III, BRETT A Referring Unavailable CAROLA, LAPMAN Referring Unavailable CAROLA, LAPMAN Referring Unavailable CAROLA, LAPMAN Referring Unavailable CEBUL III, BRETT A Attending Unavailable CAROLA, LAPMAN Referring Unavailable CAROLA, LAPMAN Referring Unavailable CEBUL III, BRETT A Referring Unavailable CEBUL III, BRETT A Referring Unavailable CAROLA, LAPMAN Referring Unavailable CAROLA, LAPMAN Attending Unavailable CAROLA, LAPMAN Referring Unavailable CAROLA, LAPMAN Referring Unavailable CAROLA, LAPMAN Referring Unavailable CAROLA, LAPMAN Referring Unavailable CAROLA, LAPMAN Referring Unavailable CAROLA, LAPMAN Referring Unavailable CEBUL III, BRETT A Attending Unavailable CAROLA, LAPMAN Referring Unavailable CAROLA, LAPMAN Referring Unavailable CEBUL III, BRETT A Attending Unavailable CEBUL III, BRETT A Attending Unavailable CEBUL III, BRETT Wetzel Attending Unavailable CEBUL III, BRETT Wetzel Referring Unavailable Sarabu, Dr. Darby Attending Unavailable Cebul III, Dr. Brett Macdonald Primary Care Unavailable Sarabu, Dr. Darby Attending Unavailable Sarabu, Dr. Darby Referring Unavailable Cebul III, Dr. Brett Macdonald Primary Care Unavailable Padiyar, Dr. Gaspar Attending Unavailable Padiyar, Dr. Gaspar Referring Unavailable Cebul III, Dr. Brett Macdonald Primary Care Unavailable Da, Dr. Tali Restrepo Attending Unavailable UNKNOWN, PCP Referring Unavailable Cebul III, Dr. Brett Macdonald Primary Care Unavailable Padiyar, Dr. Gaspar Attending Unavailable Padiyar, Dr. Gaspar Referring Unavailable Cebul III, Dr. Brett Macdonald Primary Care Unavailable Padiyar, Dr. Gaspar Attending Unavailable UNKNOWN, PCP Referring Unavailable Cebul III, Dr. Brett Macdonald Primary Care Unavailable Padiyar, Dr. Gaspar Attending Unavailable Padiyar, Dr. Gaspar Referring Unavailable Cebul III, Dr. Brett Macdonald Primary Care Unavailable Da, Dr. Tali Restrepo Attending Unavailable Cebul III, Dr. Brett Macdonald Primary Care Unavailable Da, Dr. Tali Restrepo Attending Unavailable Cebul III, Dr. Brett Macdonald Primary Care Unavailable DEBROY, ELIRicardo Attending Unavailable DEBROY, MEELIE Referring Unavailable Cebul III, Dr. Brett Macdonald Primary Care Unavailable CRAFT Admitting Unavailable CRAFT Attending Unavailable DEBROY, MEELIE Referring Unavailable Cebul III, Dr. Brett Macdonald Primary Care Unavailable CRAFT Attending Unavailable Cebul III, Dr. Brett Macdonald Primary Care Unavailable Da, Dr. Tali Restrepo Attending Unavailable Cebul III, Dr. Brett Macdonald Primary Care Unavailable Da, Dr. Tali Restrepo Attending Unavailable Cebul III, Dr. Brett Macdonald Primary Care Unavailable Da, Dr. Tali Restrepo Attending Unavailable Cebul III, Dr. Brett Macdonald Primary Care Unavailable Da, Dr. Tali Restrepo Attending Unavailable Cebul III, Dr. Brett Macdonald Primary Care Unavailable Da, Dr. Tali Restrepo Attending Unavailable Cebul III, Dr. Brett Macdonald Primary Care Unavailable Da, Dr. Tali Restrepo Attending Unavailable Cebul III, Dr. Brett Macdonald Primary Care Unavailable Da, Dr. Tali Restrepo Attending Unavailable Cebul III, . Brett Torres Primary Care Unavailable PROBLEMS PROBLEMS DATE TYPE CONDITION / CODE ATTENDING STATUS SOURCE Unknown E11.39 - Type 2 diabetes Julitagurutoro Active Eduardo 9 mellitus with other Sharona N. [facility] diabetic ophthalmic Hospital complication / Repository E11.39(ICD-10) Unknown E11.65 - Type 2 diabetes Julitagurutoro Active Eduardo 9 mellitus with Sharona N. [facility] hyperglycemia / Hospital E11.65(ICD-10) Repository Admitting End stage renal disease Dr. Da Active Dawn 9 diagnosis / N18.6(ICD-10) [facility] Repository Final End stage renal disease Dr. Da Active Dawn 9 diagnosis / N18.6(ICD-10) [facility] (discharge) Repository Unknown T82.898D - Other Mau PRAJAPATI Active [facility] 8 specified complication Jazlyn [facility] vascular prosthetic Hospital devices, implants and Repository grafts, subsequent encounter / T82.898D(ICD-10) Unknown T82.590A - Other Benjamín Reese Active [facility] 8 mechanical complication Community of surgically created Hospital arteriovenous fistula, Repository initial encounter / T82.590A(ICD-10) Admitting Encounter for other [place] [address] diagnosis preprocedural Hospitals examination / Repository Z01.818(ICD-10) Final Encounter for other [place] [address] diagnosis preprocedural Hospitals (discharge) examination / Repository Z01.818(ICD-10) Final Essential (primary) [place] [address] diagnosis hypertension / Hospitals (discharge) I10(ICD-10) Repository Unknown R94.31 - Abnormal Daimen Mendez Active [facility] 8 electrocardiogram [ECG] Community [EKG] / R94.31(ICD-10) Hospital Repository Unknown R00.1 - Bradycardia, Damien Mendez Active [facility] 8 unspecified / Community R00.1(ICD-10) Hospital Repository Unknown N18.6 - End stage renal Abbie Rodriguez Active [facility] 8 disease / N18.6(ICD-10) [facility] Hospital Repository Unknown T82.898A - Other Benjamín Reese Andres [facility] 8 specified complication Community of vascular prosthetic Hospital devices, implants and Repository grafts, initial encounter / T82.898A(ICD-10) Final Personal history of LUANA [place] [address] diagnosis other diseases of male Hospitals (discharge) genital organs / Repository Z87.438(ICD-10) Final Iron deficiency anemia, CRAFT [place] [address] diagnosis unspecified / Hospitals (discharge) D50.9(ICD-10) Repository Final Type 2 diabetes mellitus [place] [address] diagnosis without complications / Hospitals (discharge) E11.9(ICD-10) Repository Final Hyperlipidemia, [place] [address] diagnosis unspecified / Hospitals (discharge) E78.5(ICD-10) Repository Final Family history of stroke CRAFT [place] [address] diagnosis / Z82.3(ICD-10) Hospitals (discharge) Repository Unknown Z12.10 - Encounter for Benjamín Reese Andres [facility] 8 screening for malignant Community neoplasm of intestinal Hospital tract, unspecified / Repository Z12.10(ICD-10) Unknown N18.5 - Chronic kidney Abbie Rodriguez [facility] 8 disease, stage 5 / Community N18.5(ICD-10) Hospital Repository Unknown N25.81 - Secondary Michael Abbie [facility] 8 hyperparathyroidism of Community renal origin / Hospital N25.81(ICD-10) Repository Unknown D63.8 - Anemia in other Abbie Rodriguez [facility] 8 chronic diseases Community classified elsewhere / Hospital D63.8(ICD-10) Repository Unknown N18.4 - Chronic kidney Benjamín Reese [facility] 8 disease, stage 4 Community (severe) / N18.4(ICD-10) Hospital Repository Final Personal history of Dr. Da [facility] 8 diagnosis endo, nutritional and [place] [facility] (discharge) metabolic disease / Repository Z86.39(ICD-10) Active Chronic kidney disease, NA Active [place] 8 stage 5 / N18.5(ICD-10) [facility] [place] Repository Active Anemia in chronic kidney NA Active [place] 8 disease / D63.1(ICD-10) [facility] [place] Repository PROCEDURES PROCEDURES No Procedure Records FoundRESULTS RESULTS HEMOGLOBIN A1C Collected: 07/30/2018 Status: F Source: [place] 5:58 AM [facility] REPOSITORY TYPE CODE TESTS RESULT OUT OF RANGE REFERENCE UNITS LAB L501.9985 4.2-6.3 % High HGB A1C 7.0 Performed By: #### L501.9985 #### [facility] [place], [address] COMPREHENSIVE METABOLIC Collected: 07/30/2018 Status: F Source: [place] VALENZUELA 5:58 AM [facility] REPOSITORY TYPE CODE TESTS RESULT OUT OF RANGE REFERENCE UNITS LAB L501.0100 74-106 mg/dL Normal GLU 99 Result Comment: Please note revised GLUCOSE reference range effective 2017. LAB L501.1000 7-18 mg/dL High BUN 39 LAB L501.1100 0.70-1.30 mg/dL High alert CREAT,SERUM 7.50 Result Comment: The validity of the calculated GFR AND GFRAA in patients over 70 years has not been determined. Clinical correlation is essential. LAB L501.1110 >60 mL/min Low EST GFR 8 Result Comment: Non- GFR Calc LAB L501.1115 >60 mL/min Low EST GFR - AA 10 Result Comment: GFR Calc LAB L501.1300 10-20 RATIO Low BUN/CRE 5.2 LAB L501.1500 6.4-8.2 g/dL Normal T PROT 7.9 LAB L501.1800 3.2-5.0 g/dL Normal ALB 4.0 LAB L501.1950 2.2-4.2 g/dL Normal GLOB 3.9 LAB L501.2000 0.9-2.4 RATIO Normal A/G 1.0 LAB L501.2200 8.5-10.1 mg/dL Normal CA 8.8 LAB L501.4100 15-37 U/L Normal AST 19 LAB L501.4305 45-117 U/L Normal ALK P 78 LAB L501.4405 16-61 U/L Normal ALT 17 LAB L501.4600 0.20-1.00 mg/dL Normal T BILI 0.40 LAB L501.5300 136-145 mmol/L Normal NA 139 LAB L501.5600 3.5-5.1 mmol/L Normal K 4.8 LAB L501.5900 98-107 mmol/L Normal CL 100 LAB L501.6100 21.0-32.0 mmol/L Normal CO2 28.0 LAB L501.6200 5-15 Normal GAP 11 Performed By: #### L500.4050 #### [facility] [address] [place], [address] HLA CLASS I SP AB Collected: 07/23/2018 Status: F Source: [facility] ID,HD 1:21 PM [facility] REPOSITORY TYPE CODE TESTS RESULT OUT OF REFERENCE UNITS RANGE LAB HL1HD(LOINC ) HLA CLASS SEE COMMENT I SP AB ID,HD Result Comment: HLA-CLASS I SP ANTIBODY IDENTIFICATION, HIGH DEFINITION SEE SEPARATE REPORT. Performed By: #### HL1HD #### [facility] [address] [place] [address] PROGRESS Observed: 06/19/2018 Status: COMPLETED Source: [place] 2:56 PM [facility] [place] REPOSITORY HNO ID: [id number] Author: Brett Reese III Service: (none) Author Type: Physician Type: Progress Notes Filed: 06/19/2018 6:48 PM Note Text: SUBJECTIVE: This is a 62 year old male that is here today for Chronic Medical Conditions. 1. hypertension 2. end stage renal dis. on dialysis. He gets orthostatic hypotension after dialysis. Dr Rodriguez managing him. 3. asks about referral to [facility] for renal transplant PAST MEDICAL HISTORY Diagnosis Date - Adult-onset obesity - Anemia in stage 5 chronic kidney disease, not on chronic dialysis (HCC) 07/12/2017 - BMI 32.0-32.9,adult - BPH (benign prostatic hyperplasia) 03/06/2012 - Diabetes mellitus type 2 with neurological manifestations ([facility]) 02/13/2013 - 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 ([facility]) 08/31/2014 - Encounter for long-term (current) use of insulin ([facility]) - Enlarged prostate - Essential hypertension, benign - Fistula 12/20/2017 left forearm radial to cephalic ateriovenous - Hearing loss 09/10/2012 - Hypocalcemia 07/31/2017 - Hypoglycemia unawareness associated with type 2 diabetes mellitus (HCC) - Kidney disease - Osteoarthritis of left knee 02/16/2011 - Other and unspecified hyperlipidemia - Pedal edema - Personal history of nicotine dependence - Retinopathy, bilateral 03/21/2018 - Tinnitus 09/10/2012 - Type 2 diabetes mellitus with stage 4 chronic kidney disease, with long-term current use of insulin (HCC) 09/20/2016 - Vitamin D deficiency 07/31/2017 - White coat hypertension 02/09/2014 Current Outpatient Prescriptions on File Prior to Visit: blood sugar diagnostic (ONE TOUCH ULTRA TEST) test strip Test blood sugar(s) two times daily. Dx: 250.02. Insulin: No calcitriol (ROCALTROL) 0.5 mcg capsule Take 0.5 mcg by mouth once daily. calcium acetate (CALPHRON) 667 mg tablet Take 667 mg by mouth three times daily with meals. Cholecalciferol, Vitamin D3, 2,000 unit cap Take 1 capsule by mouth once daily. ergocalciferol, vitamin D2, (VITAMIN D) 50,000 unit capsule Take 50,000 Units by mouth q 3 WEEKS. finasteride (PROSCAR) 5 mg tablet Take 1 tablet by mouth once daily. furosemide (LASIX) 40 mg tablet Take 1 tablet by mouth twice daily. insulin glargine (LANTUS SOLOSTAR) 100 unit/mL (3 mL) inpn INJECT 28 (unless active then 21 unit) UNITS UNDER THE SKIN DAILY insulin lispro (HUMALOG KWIKPEN INSULIN) 100 unit/mL inpn Inject 14 Units subcutaneously twice daily with meals. Lancets (ONE TOUCH DELICA) lancets Test blood sugar(s) 4 daily. Dx: 250.02 Insulin: Yes losartan (COZAAR) 100 mg tablet Take 1 tablet by mouth once daily. NIFEdipine ER (PROCARDIA XL) 60 mg 24 hr tablet Take 1 tablet by mouth once daily. rosuvastatin (CRESTOR) 10 mg tablet Take 1 tablet by mouth once daily. triamcinolone acetonide (KENALOG) 0.1 % cream Apply 1 application to affected area once daily. Apply to affected area as needed for itching. Location: lower legs calcitriol (ROCALTROL) 0.25 mcg capsule Take 1 capsule by mouth once daily. Insulin [place], Disposable, (BD ULTRAFINE III MINI PEN) 31 gauge x 3/16 ndle use four times/day iron polysaccharide complex (FERREX-150) 150 mg iron capsule Take 1 capsule by mouth twice daily. labetalol (TRANDATE) 300 mg tablet Take 1 tablet by mouth twice daily. No current facility-administered medications on file prior to visit. FAMILY HISTORY Problem Relation Age of Onset - Diabetes Mother - Hypertension Mother - Heart Mother NM - other (lung cancer) Mother bone metastasis - Diabetes Father - other (BPH) Father - other (pancreatic cancer) Father - Diabetes Brother - Diabetes Brother Social History Substance Use Topics - Smoking status: Former Smoker Packs/day: 1.00 Years: 6.00 Types: Cigarettes - Smokeless tobacco: Never Used Comment: quit - Alcohol use Yes Comment: RARE BP 118/70 (BP Site: Right Arm, BP Position: Sitting, BP Cuff Size: Regular Adult) Pulse 75 Resp 16 Wt 92.5 kg (204 lb) BMI 29.06 kg/m? . OBJECTIVE: APPEARANCE Well appearing, alert, in no acute distress, well-hydrated, well nourished. HEART RRR with normal S1 and S2, no murmurs, no gallops, no JVD appreciated LUNG clear to auscultation EXTREMITIES Extremities normal, No deformities, No skin discoloration, No edema, Normal pulses bilaterally. and Feet: Shoes and socks removed, No deformities, ulcers, calluses, normal distal pulses and sensitive to 10 gm monofilament Lab on 06/11/18 Hemoglobin 11.0 hematocrit 34.1 ASSESSMENT: diabetes mellitus with end stage renal disease on dialysis?stable Hypertension?variable especially during/after dialysis PLAN: same medications refer for kidney transplant follow up with senior internal auditor as appointed FLASH Mcleod MD, III MD CNOV Observed: 06/19/2018 Status: COMPLETED Source: [place] 2:40 PM [facility] REPOSITORY Office Visit (FAMPWS) RODRI GALE ([id number]) 1955 M Date Time Provider Department 06/19/18 2:40 PM BRETT REESE IIIPKAROLINA During your visit today, we recorded the following information about you: Pulse Respiration Blood pressure Weight 75/minute 16/minute 118/70 92.5 kg Brett Reese III MD 06/19/2018 6:48 PM Addendum SUBJECTIVE: This is a 62 year old male that is here today for Chronic Medical Conditions. 1. hypertension 2. end stage renal dis. on dialysis. He gets orthostatic hypotension after dialysis. Dr Rodriguez managing him. 3. asks about referral to [facility] for renal transplant PAST MEDICAL HISTORY Diagnosis Date - Adult-onset obesity - Anemia in stage 5 chronic kidney disease, not on chronic dialysis ([facility]) 07/12/2017 - BMI 32.0-32.9,adult - BPH (benign prostatic hyperplasia) 03/06/2012 - Diabetes mellitus type 2 with neurological manifestations ([facility]) 02/13/2013 - 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 ([facility]) 08/31/2014 - Encounter for long-term (current) use of insulin ([facility]) - Enlarged prostate - Essential hypertension, benign - Fistula 12/20/2017 left forearm radial to cephalic ateriovenous - Hearing loss 09/10/2012 - Hypocalcemia 07/31/2017 - Hypoglycemia unawareness associated with type 2 diabetes mellitus ([facility]) - Kidney disease - Osteoarthritis of left knee 02/16/2011 - Other and unspecified hyperlipidemia - Pedal edema - Personal history of nicotine dependence - Retinopathy, bilateral 03/21/2018 - Tinnitus 09/10/2012 - Type 2 diabetes mellitus with stage 4 chronic kidney disease, with long-term current use of insulin ([facility]) 09/20/2016 - Vitamin D deficiency 07/31/2017 - White coat hypertension 02/09/2014 Current Outpatient Prescriptions on File Prior to Visit: blood sugar diagnostic (ONE TOUCH ULTRA TEST) test strip Test blood sugar(s) two times daily. Dx: 250.02. Insulin: No calcitriol (ROCALTROL) 0.5 mcg capsule Take 0.5 mcg by mouth once daily. calcium acetate (CALPHRON) 667 mg tablet Take 667 mg by mouth three times daily with meals. Cholecalciferol, Vitamin D3, 2,000 unit cap Take 1 capsule by mouth once daily. ergocalciferol, vitamin D2, (VITAMIN D) 50,000 unit capsule Take 50,000 Units by mouth q 3 WEEKS. finasteride (PROSCAR) 5 mg tablet Take 1 tablet by mouth once daily. furosemide (LASIX) 40 mg tablet Take 1 tablet by mouth twice daily. insulin glargine (LANTUS SOLOSTAR) 100 unit/mL (3 mL) inpn INJECT 28 (unless active then 21 unit) UNITS UNDER THE SKIN DAILY insulin lispro (HUMALOG KWIKPEN INSULIN) 100 unit/mL inpn Inject 14 Units subcutaneously twice daily with meals. Lancets (ONE TOUCH DELICA) lancets Test blood sugar(s) 4 daily. Dx: 250.02 Insulin: Yes losartan (COZAAR) 100 mg tablet Take 1 tablet by mouth once daily. NIFEdipine ER (PROCARDIA XL) 60 mg 24 hr tablet Take 1 tablet by mouth once daily. rosuvastatin (CRESTOR) 10 mg tablet Take 1 tablet by mouth once daily. triamcinolone acetonide (KENALOG) 0.1 % cream Apply 1 application to affected area once daily. Apply to affected area as needed for itching. Location: lower legs calcitriol (ROCALTROL) 0.25 mcg capsule Take 1 capsule by mouth once daily. Insulin [place], Disposable, (BD ULTRAFINE III MINI PEN) 31 gauge x 3/16 ndle use four times/day iron polysaccharide complex (FERREX-150) 150 mg iron capsule Take 1 capsule by mouth twice daily. labetalol (TRANDATE) 300 mg tablet Take 1 tablet by mouth twice daily. No current facility-administered medications on file prior to visit. FAMILY HISTORY Problem Relation Age of Onset - Diabetes Mother - Hypertension Mother - Heart Mother NM - other (lung cancer) Mother bone metastasis - Diabetes Father - other (BPH) Father - other (pancreatic cancer) Father - Diabetes Brother - Diabetes Brother Social History Substance Use Topics - Smoking status: Former Smoker Packs/day: 1.00 Years: 6.00 Types: Cigarettes - Smokeless tobacco: Never Used Comment: quit - Alcohol use Yes Comment: RARE BP 118/70 (BP Site: Right Arm, BP Position: Sitting, BP Cuff Size: Regular Adult) Pulse 75 Resp 16 Wt 92.5 kg (204 lb) BMI 29.06 kg/m? . OBJECTIVE: APPEARANCE Well appearing, alert, in no acute distress, well- hydrated, well nourished. HEART RRR with normal S1 and S2, no murmurs, no gallops, no JVD appreciated LUNG clear to auscultation EXTREMITIES Extremities normal, No deformities, No skin discoloration, No edema, Normal pulses bilaterally. and Feet: Shoes and socks removed, No deformities, ulcers, calluses, normal distal pulses and sensitive to 10 gm monofilament Lab on 06/11/18 Hemoglobin 11.0 hematocrit 34.1 ASSESSMENT: diabetes mellitus with end stage renal disease on dialysis?stable Hypertension?variable especially during/after dialysis PLAN: same medications refer for kidney transplant follow up with senior internal auditor as appointed FLASH Mcleod MD, III MD Frank A Cebul, III MD 06/19/2018 3:19 PM Signed PLAN: same medications refer for kidney transplant follow up with senior internal auditor as appointed Brett Reese III MD Referring Provider: BRETT REESE III [[id number]] Allergies As of Date: 06/19/2018 Noted Allergy Reaction BACTRIM (SULFAMETHOXAZOLE) 02/13/2013 4 - Hives LIPITOR (ATORVASTATIN CALCIUM) 10/10/2011 14 - Other: See Comments Comments: myalgia METFORMIN 01/02/2008 2 - Rash NORVASC (AMLODIPINE BESYLATE) 08/31/2014 7 - Swelling Date Reviewed: 06/19/2018 Reviewed by: Opal Hector - Fully Assessed Reason for Visit: Recheck [92] Cmt: BP Primary Visit Diagnosis:Chronic 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 ([facility]) [N18.6, Z99.2] Other Visit Diagnoses:Type 2 diabetes mellitus with stage 4 chronic kidney disease, with long-term current use of insulin ([facility]) [E11.22, N18.4, Z79.4] CKD (chronic kidney disease) stage 5, GFR less than 15 ml/min ([facility]) [N18.5] Essential hypertension, benign [I10] Order(s):losartan (COZAAR) 100 mg tabletTake 1 tablet by mouth once daily.Disp: 30 tabletRfl: 11 Cholecalciferol, Vitamin D3, 2,000 unit capTake 1 capsule by mouth once daily.Disp: 30 capsuleRfl: 12 CONSULT TO TRANSPLANT CENTER [[id number]] Order #: [id number]: [id number] Prescriptions as of 06/19/2018 Sig: * BLOOD SUGAR DIAGNOSTIC STRIPS Test blood sugar(s) two times* CALCITRIOL 0.5 MCG CAPSULE Take 0.5 mcg by mouth once da* CALCIUM ACETATE 667 MG TABLET Take 667 mg by mouth three ti* CHOLECALCIFEROL (VITAMIN D3) * Take 1 capsule by mouth once * ERGOCALCIFEROL (VITAMIN D2) 5* Take 50,000 Units by mouth q * FINASTERIDE 5 MG TABLET Take 1 tablet by mouth once d* FUROSEMIDE 40 MG TABLET Take 1 tablet by mouth twice * INSULIN GLARGINE (U-100) 100 * INJECT 28 (unless active then* INSULIN LISPRO (U-100) 100 UN* Inject 14 Units subcutaneousl* LANCETS Test blood sugar(s) 4 daily. * LOSARTAN 100 MG TABLET Take 1 tablet by mouth once d* NIFEDIPINE ER 60 MG TABLET,EX* Take 1 tablet by mouth once d* ROSUVASTATIN 10 MG TABLET Take 1 tablet by mouth once d* TRIAMCINOLONE ACETONIDE 0.1 %* Apply 1 application to affect* CALCITRIOL 0.25 MCG CAPSULE Take 1 capsule by mouth once * PEN NEEDLE, DIABETIC 31 GAUGE* use four times/day POLYSACCHARIDE IRON COMPLEX 1* Take 1 capsule by mouth twice* LABETALOL 300 MG TABLET Take 1 tablet by mouth twice * Medication notes this encounter LOSARTAN 100 MG TABLET >> Opal Hector 06/19/2018 2:30 PM >> OPAL HECTOR Windy Jun 19, 2018 2:30 PM Patient does not take on dialysis days Problem List As Of Date 06/19/2018 Noted Resolved BENIGN HYPERTENSION [I10] Hyperlipidemia LDL goal <100 [E78.5] Sebaceous cyst [L72.3] INVALID FOR*09/20/2016 Erectile Dysfunction [N52.9] INVALID FOR* Osteoarthritis of left knee [M17.12] INVALID FOR* BPH (benign prostatic hyperplasia) [N40.0] INVALID FOR* Tinnitus [H93.19] INVALID FOR* Hearing loss [H91.90] INVALID FOR* 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*INVALID FOR* DM (diabetes mellitus) type II uncontrolled wit*INVALID FOR* Chronic 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 (HCC*INVALID FOR* Fracture of forearm, closed [S52.90XA] INVALID FOR*09/20/2016 Type 2 diabetes mellitus with stage 4 chronic k*INVALID FOR* Essential tremor [G25.0] INVALID FOR* Anemia in stage 5 chronic kidney disease, not o*INVALID FOR* Hypocalcemia [E83.51] INVALID FOR*03/07/2018 Vitamin D deficiency [E55.9] INVALID FOR* End stage kidney disease (HCC) [N18.6] INVALID FOR* More... Other instructions from your clinician: PLAN: same medications refer for kidney transplant follow up with senior internal auditor as appointed Brett Reese III MD Prescriptions ordered this encounter Disp Refills Start End LOSARTAN 100 MG TABLET 30 t* 11 06/19/2018 Route: ORAL Sig: Take 1 tablet by mouth once daily. CHOLECALCIFEROL (VITAMIN D3) 2,000 U* 30 c* 12 06/19/2018 Route: ORAL Sig: Take 1 capsule by mouth once daily. Medications Discontinued During This Encounter losartan (COZAAR) 100 mg tablet 30 t* 11 07/31/2017 06/19/2018 Route: ORAL Sig: Take 1 tablet by mouth once daily. Disc: Reason for discontinue is not on file. Cholecalciferol, Vitamin D3, 2,000 u* 30 c* 12 07/31/2017 06/19/2018 Class: Med Update Route: ORAL Sig: Take 1 capsule by mouth once daily. Disc: Reason for discontinue is not on file. Encounter Status:Closed by BRETT REESE III, MD on 06/19/18 HLA CLASS II AB Collected: 06/13/2018 Status: F Source: UNIVERSITY SCREEN, 12:08 PM [facility] REPOSITORY TYPE CODE TESTS RESULT OUT OF REFERENCE UNITS RANGE LAB HLA2S(LOINC ) HLA CLASS SEE COMMENT II AB SCREEN,FC Result Comment: HLA CLASS II AB SCREEN,FLOW CYTOMETRY SEE SEPARATE REPORT. Performed By: #### HLAS2 #### [facility] [address] [place] [address] CBC-COMPLETE BLOOD CNT Collected: 06/11/2018 Status: F Source: [place] NO DIFF 6:01 AM [facility] REPOSITORY TYPE CODE TESTS RESULT OUT OF RANGE REFERENCE UNITS LAB L100.1000 4.4-11.0 K/mm3 Normal WBC 9.7 LAB L100.1200 4.6-6.2 M/mm3 Low RBC 3.51 LAB L100.1300 13.0-16.5 g/dl Low HGB 11.0 LAB L100.1400 40-54 % Low HCT 34.1 LAB L100.1500 80-94 fL High MCV 97.2 LAB L100.1600 27.0-32.0 pg Normal MCH 31.3 LAB L100.1700 32-36 g/gl Normal MCHC 32.3 LAB L100.1810 11.6-14.6 % Normal RDW CV 14.3 LAB L100.1820 35.1-43.9 fl High RDW SD 49.7 LAB L100.1900 150-450 K/mm3 Normal PLT 257 LAB L100.2000 6.2-12.0 fl Normal MPV 10.2 Performed By: #### L100.0500 #### [facility] [place], [address] CNPTOUTREACH Observed: 06/03/2018 Status: COMPLETED Source: [place] 12:00 AM [facility] REPOSITORY Patient Outreach (FAMPST) RODRI GALE ([id number]) 1955 M Date Time Provider Department 06/03/18 [facility] During your visit today, we recorded the following information about you: Allergies As of Date: 06/03/2018 Noted Allergy Reaction BACTRIM (SULFAMETHOXAZOLE) 02/13/2013 4 - Hives LIPITOR (ATORVASTATIN CALCIUM) 10/10/2011 14 - Other: See Comments Comments: myalgia METFORMIN 01/02/2008 2 - Rash NORVASC (AMLODIPINE BESYLATE) 08/31/2014 7 - Swelling Date Reviewed: 03/07/2018 Reviewed by: Linda Foster Ma - Fully Assessed Visit Diagnosis:Medication management [Z79.899] Order(s):CBC [SQCBC] Order #: [id number] FUTURE Prescriptions as of 06/03/2018 Sig: * BLOOD SUGAR DIAGNOSTIC STRIPS Test blood sugar(s) two times* CALCITRIOL 0.25 MCG CAPSULE Take 1 capsule by mouth once * CALCITRIOL 0.5 MCG CAPSULE Take 0.5 mcg by mouth once da* CALCIUM ACETATE 667 MG TABLET Take 667 mg by mouth three ti* ERGOCALCIFEROL (VITAMIN D2) 5* Take 50,000 Units by mouth q * FUROSEMIDE 40 MG TABLET Take 1 tablet by mouth twice * INSULIN GLARGINE (U-100) 100 * INJECT 28 (unless active then* INSULIN LISPRO (U-100) 100 UN* Inject 14 Units subcutaneousl* PEN NEEDLE, DIABETIC 31 GAUGE* use four times/day POLYSACCHARIDE IRON COMPLEX 1* Take 1 capsule by mouth twice* LABETALOL 300 MG TABLET Take 1 tablet by mouth twice * LANCETS Test blood sugar(s) 4 daily. * NIFEDIPINE ER 60 MG TABLET,EX* Take 1 tablet by mouth once d* ROSUVASTATIN 10 MG TABLET Take 1 tablet by mouth once d* X CHOLECALCIFEROL (VITAMIN D3) * Take 1 capsule by mouth once * X FINASTERIDE 5 MG TABLET Take 1 tablet by mouth once d* X LOSARTAN 100 MG TABLET Take 1 tablet by mouth once d* X TRIAMCINOLONE ACETONIDE 0.1 %* Apply 1 application to affect* Problem List As Of Date 06/03/2018 Noted Resolved BENIGN HYPERTENSION [I10] Hyperlipidemia LDL goal <100 [E78.5] Sebaceous cyst [L72.3] INVALID FOR*09/20/2016 Erectile Dysfunction [N52.9] INVALID FOR* Osteoarthritis of left knee [M17.12] INVALID FOR* BPH (benign prostatic hyperplasia) [N40.0] INVALID FOR* Tinnitus [H93.19] INVALID FOR* Hearing loss [H91.90] INVALID FOR* 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*INVALID FOR* DM (diabetes mellitus) type II uncontrolled wit*INVALID FOR* Chronic kidney disease, stage IV (severe) (HCC)*INVALID FOR* Fracture of forearm, closed [S52.90XA] INVALID FOR*09/20/2016 Type 2 diabetes mellitus with stage 4 chronic k*INVALID FOR* Essential tremor [G25.0] INVALID FOR* Anemia in stage 5 chronic kidney disease, not o*INVALID FOR* Hypocalcemia [E83.51] INVALID FOR*03/07/2018 Vitamin D deficiency [E55.9] INVALID FOR* End stage kidney disease (HCC) [N18.6] INVALID FOR* More... Encounter Status:Closed by NOAM, PRODUSER on 07/03/18 CROSSMATCH, FREEZE Collected: 04/30/2018 Status: F [facility] [place] [facility] TYPE CODE TESTS RESULT OUT OF REFERENCE UNITS RANGE LAB HLFXM(LOINC ) CROSSMATCH, COMMENT FREEZE Result Comment: SEE SEPARATE REPORT. Performed By: #### HLFXM #### [facility] [address] [place] [address] COMPREHENSIVE METABOLIC Collected: 04/18/2018 Status: F Source: [place] 5:46 AM [facility] REPOSITORY Order Comment: PT REQUEST DR BRETT REESE IS TO RECEIVE COPIES WELL ON LABS. TYPE CODE TESTS RESULT OUT OF RANGE REFERENCE UNITS LAB L501.0100 74-106 mg/dL High GLU 157 Result Comment: Fasting Glucose result greater than or equal to 126 mg/dL suggests DIABETES MELLITUS per A.D.A. criteria. Please note revised GLUCOSE reference range effective 2017. LAB L501.1000 7-18 mg/dL High BUN 38 LAB L501.1100 0.70-1.30 mg/dL High alert CREAT,SERUM 7.67 Result Comment: The validity of the calculated GFR AND GFRAA in patients over 70 years has not been determined. Clinical correlation is essential. LAB L501.1110 >60 mL/min Low EST GFR 8 Result Comment: Non- GFR Calc LAB L501.1115 >60 mL/min Low EST GFR - AA 9 Result Comment: GFR Calc LAB L501.1300 10-20 RATIO Low BUN/CRE 5.0 LAB L501.1500 6.4-8.2 g/dL Normal T PROT 8.1 LAB L501.1800 3.2-5.0 g/dL Normal ALB 3.9 LAB L501.1950 2.2-4.2 g/dL Normal GLOB 4.2 LAB L501.2000 0.9-2.4 RATIO Normal A/G 0.9 LAB L501.2200 8.5-10.1 mg/dL Normal CA 9.1 LAB L501.4100 15-37 U/L Normal AST 23 LAB L501.4305 45-117 U/L Normal ALK P 85 LAB L501.4405 16-61 U/L Normal ALT 27 LAB L501.4600 0.20-1.00 mg/dL Normal T BILI 0.50 LAB L501.5300 136-145 mmol/L Normal NA 138 LAB L501.5600 3.5-5.1 mmol/L High K 5.6 LAB L501.5900 98-107 mmol/L Normal CL 98 LAB L501.6100 21.0-32.0 mmol/L Normal CO2 31.0 LAB L501.6200 5-15 Normal GAP 9 Performed By: #### L500.4050, L500.4100 #### [facility] [address] [place], [place], [address] LIPID PROFILE Collected: 04/18/2018 Status: F Source: [place] 5:46 AM [facility] REPOSITORY Order Comment: PT REQUEST DR BRETT REESE IS TO RECEIVE COPIES WELL ON LABS. TYPE CODE TESTS RESULT OUT OF RANGE REFERENCE UNITS LAB L501.4900 200 mg/dL Normal CHOL 180 Result Comment: <200 mg/dL Desirable 200-240 mg/dL Borderline >240 mg/dL High Risk LAB L501.5000 mg/dL High TRIG 224 Result Comment: The drugs N-Acetylcysteine and Metamizole may falsely depress this assay. Serum Triglycerides Reference Interval Normal <150 mg/dL Borderline high 150 - 199 mg/dL High 200 - 499 mg/dL Very High > or = 500 mg/dL LAB L501.6400 mg/dL Normal HDL 43 Result Comment: The drugs N-Acetylcysteine and Metamizole may falsely depress this assay. Reference Range HDL <40 mg/dL Low HDL Cholesterol HDL >or= 60 mg/dL High HDL Cholesterol LAB L501.6500 0-130 mg/dL Normal LDL 92 LAB L501.6600 5-40 mg/dL High VLDL 45 Performed By: #### L500.4050, L500.4100 #### [facility] [address] [place], [place], [id number] HEMOGLOBIN A1C Collected: 04/18/2018 Status: F Source: [place] 5:46 AM [facility] REPOSITORY Order Comment: PT REQUEST DR BRETT REESE IS TO RECEIVE COPIES WELL ON LABS. TYPE CODE TESTS RESULT OUT OF RANGE REFERENCE UNITS LAB L501.9985 4.2-6.3 % High HGB A1C 6.9 Performed By: #### L501.9985 #### [facility] [address] [place], [address] CROSSMATCH, FREEZE Collected: 04/04/2018 Status: F Source: [place] 11:38 AM [facility] REPOSITORY TYPE CODE TESTS RESULT OUT OF REFERENCE UNITS RANGE LAB HLFXM(LOINC ) CROSSMATCH, COMMENT FREEZE Result Comment: SEE SEPARATE REPORT. Performed By: #### HLFXM #### [facility] [address] [place] [address] PROGRESS Observed: 03/07/2018 Status: COMPLETED Source: [place] 10:11 AM [facility] REPOSIT[facility] HNO ID: [id number] Author: Brett Reese III Service: (none) Author Type: Physician Type: Progress Notes Filed: 03/07/2018 6:07 PM Note Text: SUBJECTIVE: This is a 62 year old male that is here today for Chronic Medical Conditions. 1. 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 HbA1c 6.1 Rare hypoglycemia. 2. hypertension 3. hyperlipidemia. PAST MEDICAL HISTORY Diagnosis Date - Adult-onset obesity - Anemia in stage 5 chronic kidney disease, not on chronic dialysis ([facility]) 07/12/2017 - BMI 32.0-32.9,adult - BPH (benign prostatic hyperplasia) 03/06/2012 - Diabetes mellitus type 2 with neurological manifestations ([facility]) 02/13/2013 - 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 ([facility]) 08/31/2014 - Encounter for long-term (current) use of insulin ([facility]) - Enlarged prostate - Essential hypertension, benign - Fistula 12/20/2017 left forearm radial to cephalic ateriovenous - Hearing loss 09/10/2012 - Hypocalcemia 07/31/2017 - Hypoglycemia unawareness associated with type 2 diabetes mellitus (HCC) - Kidney disease - Osteoarthritis of left knee 02/16/2011 - Other and unspecified hyperlipidemia - Pedal edema - Personal history of nicotine dependence - Tinnitus 09/10/2012 - Type 2 diabetes mellitus with stage 4 chronic kidney disease, with long-term current use of insulin ([facility]) 09/20/2016 - Vitamin D deficiency 07/31/2017 - White coat hypertension 02/09/2014 Current Outpatient Prescriptions on File Prior to Visit: furosemide (LASIX) 40 mg tablet Take 1 tablet by mouth twice daily. rosuvastatin (CRESTOR) 10 mg tablet Take 1 tablet by mouth once daily. finasteride (PROSCAR) 5 mg tablet Take 1 tablet by mouth once daily. labetalol (TRANDATE) 300 mg tablet Take 1 tablet by mouth twice daily. NIFEdipine ER (PROCARDIA XL) 60 mg 24 hr tablet Take 1 tablet by mouth once daily. metOLAzone (ZAROXOLYN) 5 mg tablet Take 1 tablet by mouth once daily. UNIFINE PENTIPS 31 gauge x 5/16 ndle USE 3 NEEDLES PER DAY INSTRUCTED calcitriol (ROCALTROL) 0.5 mcg capsule Take 0.5 mcg by mouth once daily. calcium acetate (CALPHRON) 667 mg tablet Take 667 mg by mouth three times daily with meals. ergocalciferol, vitamin D2, (VITAMIN D) 50,000 unit capsule Take 50,000 Units by mouth q 3 WEEKS. losartan (COZAAR) 100 mg tablet Take 1 tablet by mouth once daily. insulin glargine (LANTUS SOLOSTAR) 100 unit/mL (3 mL) inpn INJECT 28 (unless active then 21 unit) UNITS UNDER THE SKIN DAILY insulin lispro (HUMALOG KWIKPEN) 100 unit/mL inpn Inject 14 Units subcutaneously twice daily with meals. iron polysaccharide complex (FERREX-150) 150 mg iron capsule Take 1 capsule by mouth twice daily. triamcinolone acetonide (KENALOG) 0.1 % cream Apply 1 application to affected area once daily. Apply to affected area as needed for itching. Location: lower legs BD ULTRAFINE III MINI PEN 31 gauge x 3/16 ndle USE ONCE DAILY Lancets (ONE TOUCH DELICA) lancets Test blood sugar(s) 4 daily. Dx: 250.02 Insulin: Yes blood sugar diagnostic (ONE TOUCH ULTRA TEST) test strip Test blood sugar(s) two times daily. Dx: 250.02. Insulin: No calcitriol (ROCALTROL) 0.25 mcg capsule Take 1 capsule by mouth once daily. Cholecalciferol, Vitamin D3, 2,000 unit cap Take 1 capsule by mouth once daily. No current facility-administered medications on file prior to visit. FAMILY HISTORY Problem Relation Age of Onset - Diabetes Mother - Hypertension Mother - Heart Mother NM - other (lung cancer) Mother bone metastasis - Diabetes Father - other (BPH) Father - other (pancreatic cancer) Father - Diabetes Brother - Diabetes Brother Social History Substance Use Topics - Smoking status: Former Smoker Packs/day: 1.00 Years: 6.00 Types: Cigarettes - Smokeless tobacco: Never Used Comment: quit 1969's - Alcohol use Yes Comment: RARE BP 110/56 Pulse 64 Resp 16 Wt 93.8 kg (206 lb 12.8 oz) SpO2 98% BMI 29.46 kg/m? OBJECTIVE: APPEARANCE Well appearing, alert, in no acute distress, well-hydrated, well nourished. NECK Supple, no adenopathy; thyroid symmetric, normal size, no bruits HEART RRR with normal S1 and S2, no murmurs, no gallops, no JVD appreciated LUNG clear to auscultation EXTREMITIES , No deformities, No skin discoloration, No edema, trace DP pulses bilaterally, 3 sec cap filling. and Feet: Shoes and socks removed, No deformities, ulcers, calluses, trace DP distal pulses and decreased monofilament sensitivity distal 1/3 of the foot/toes Lab Results for RODRI GALE ( ) as of 03/07/2018 10:13 Ref. Range 01/20/2018 00:00 NA Latest Ref Range: 136 - 145 mmol/L 142 K Latest Ref Range: 3.5 - 5.1 mmol/L 3.5 Chloride Latest Ref Range: 98 - 107 MEQ/L 103 CO2 Latest Ref Range: 21 - 32 MEQ/L 28.0 BUN Latest Ref Range: 7 - 18 MG/DL 48 (A) Creatinine Latest Ref Range: 0.6 - 1.3 MG/DL 7.55 (A) Glucose Latest Ref Range: 74 - 106 MG/DL 151 (A) Albumin Latest Ref Range: 3.2 - 4.6 gm/dL 3.7 AST Latest Ref Range: 8 - 37 U/L 21 Hemoglobin A1C Latest Ref Range: 4.8 - 5.9 % 6.1 (A) Alk Phos Total Latest Ref Range: 45 - 117 U/L 71 ALT (SGPT) Latest Ref Range: 12 - 78 U/L 21 Bili Total Latest Ref Range: 0.2 - 1 mg/dL 0.50 Calcium Latest Ref Range: 8.5 - 10.1 mg/dL 8.5 GFR Latest Units: mL/MIN 8 GFR AFR AMER Latest Units: mL/MIN 9 Total Protein Latest Ref Range: 6.4 - 8.2 gm/dL 7.5 ASSESSMENT: 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 ?If sugar in the morning before breakfast is below 100, drop the Lantus by 2 units. ?If sugars go below 100 any time during the day, drop all Humalog doses by 1 unit. ?The HbA1c is not a good measure of sugar control in renal failure or with anemia, and he has both. ?The krishnamurthy to this approach is that he needs to check sugars 4 times a day for now, and make the insulin adjustments as the sugars demand it. EMILEE Observed: 03/07/2018 Status: COMPLETED Source: [place]ON[place]D 9:20 AM [facility] REPOSITORY [facility] RODRI GALE ([id number]) 1955 M Date Time Provider Department 03/07/18 9:20 AM BRETT REESE III During your visit today, we recorded the following information about you: Pulse Respiration Blood pressure Weight 64/minute 16/minute 110/56 93.8 kg Brett Reese III MD 03/07/2018 6:07 PM Signed SUBJECTIVE: This is a 62 year old male that is here today for Chronic Medical Conditions. 1. 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 HbA1c 6.1 Rare hypoglycemia. 2. hypertension 3. hyperlipidemia. PAST MEDICAL HISTORY Diagnosis Date - Adult-onset obesity - Anemia in stage 5 chronic kidney disease, not on chronic dialysis (HCC) 07/12/2017 - BMI 32.0-32.9,adult - BPH (benign prostatic hyperplasia) 03/06/2012 - Diabetes mellitus type 2 with neurological manifestations ([facility]) 02/13/2013 - 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 ([facility]) 08/31/2014 - Encounter for long-term (current) use of insulin ([facility]) - Enlarged prostate - Essential hypertension, benign - Fistula 12/20/2017 left forearm radial to cephalic ateriovenous - Hearing loss 09/10/2012 - Hypocalcemia 07/31/2017 - Hypoglycemia unawareness associated with type 2 diabetes mellitus ([facility]) - Kidney disease - Osteoarthritis of left knee 02/16/2011 - Other and unspecified hyperlipidemia - Pedal edema - Personal history of nicotine dependence - Tinnitus 09/10/2012 - Type 2 diabetes mellitus with stage 4 chronic kidney disease, with long-term current use of insulin ([facility]) 09/20/2016 - Vitamin D deficiency 07/31/2017 - White coat hypertension 02/09/2014 Current Outpatient Prescriptions on File Prior to Visit: furosemide (LASIX) 40 mg tablet Take 1 tablet by mouth twice daily. rosuvastatin (CRESTOR) 10 mg tablet Take 1 tablet by mouth once daily. finasteride (PROSCAR) 5 mg tablet Take 1 tablet by mouth once daily. labetalol (TRANDATE) 300 mg tablet Take 1 tablet by mouth twice daily. NIFEdipine ER (PROCARDIA XL) 60 mg 24 hr tablet Take 1 tablet by mouth once daily. metOLAzone (ZAROXOLYN) 5 mg tablet Take 1 tablet by mouth once daily. UNIFINE PENTIPS 31 gauge x 16 ndle USE 3 NEEDLES PER DAY INSTRUCTED calcitriol (ROCALTROL) 0.5 mcg capsule Take 0.5 mcg by mouth once daily. calcium acetate (CALPHRON) 667 mg tablet Take 667 mg by mouth three times daily with meals. ergocalciferol, vitamin D2, (VITAMIN D) 50,000 unit capsule Take 50,000 Units by mouth q 3 WEEKS. losartan (COZAAR) 100 mg tablet Take 1 tablet by mouth once daily. insulin glargine (LANTUS SOLOSTAR) 100 unit/mL (3 mL) inpn INJECT 28 (unless active then 21 unit) UNITS UNDER THE SKIN DAILY insulin lispro (HUMALOG KWIKPEN) 100 unit/mL inpn Inject 14 Units subcutaneously twice daily with meals. iron polysaccharide complex (FERREX-150) 150 mg iron capsule Take 1 capsule by mouth twice daily. triamcinolone acetonide (KENALOG) 0.1 % cream Apply 1 application to affected area once daily. Apply to affected area as needed for itching. Location: lower legs BD ULTRAFINE III MINI PEN 31 gauge x 3/16 ndle USE ONCE DAILY Lancets (ONE TOUCH DELICA) lancets Test blood sugar(s) 4 daily. Dx: 250.02 Insulin: Yes blood sugar diagnostic (ONE TOUCH ULTRA TEST) test strip Test blood sugar(s) two times daily. Dx: 250.02. Insulin: No calcitriol (ROCALTROL) 0.25 mcg capsule Take 1 capsule by mouth once daily. Cholecalciferol, Vitamin D3, 2,000 unit cap Take 1 capsule by mouth once daily. No current facility-administered medications on file prior to visit. FAMILY HISTORY Problem Relation Age of Onset - Diabetes Mother - Hypertension Mother - Heart Mother NM - other (lung cancer) Mother bone metastasis - Diabetes Father - other (BPH) Father - other (pancreatic cancer) Father - Diabetes Brother - Diabetes Brother Social History Substance Use Topics - Smoking status: Former Smoker Packs/day: 1.00 Years: 6.00 Types: Cigarettes - Smokeless tobacco: Never Used Comment: quit - Alcohol use Yes Comment: RARE BP 110/56 Pulse 64 Resp 16 Wt 93.8 kg (206 lb 12.8 oz) SpO2 98% BMI 29.46 kg/m? OBJECTIVE: APPEARANCE Well appearing, alert, in no acute distress, well- hydrated, well nourished. NECK Supple, no adenopathy; thyroid symmetric, normal size, no bruits HEART RRR with normal S1 and S2, no murmurs, no gallops, no JVD appreciated LUNG clear to auscultation EXTREMITIES , No deformities, No skin discoloration, No edema, trace DP pulses bilaterally, 3 sec cap filling. and Feet: Shoes and socks removed, No deformities, ulcers, calluses, trace DP distal pulses and decreased monofilament sensitivity distal 1/3 of the foot/toes Lab Results for RODRI GALE ( ) as of 03/07/2018 10:13 Ref. Range 01/20/2018 00:00 NA Latest Ref Range: 136 - 145 mmol/L 142 K Latest Ref Range: 3.5 - 5.1 mmol/L 3.5 Chloride Latest Ref Range: 98 - 107 MEQ/L 103 CO2 Latest Ref Range: 21 - 32 MEQ/L 28.0 BUN Latest Ref Range: 7 - 18 MG/DL 48 (A) Creatinine Latest Ref Range: 0.6 - 1.3 MG/DL 7.55 (A) Glucose Latest Ref Range: 74 - 106 MG/DL 151 (A) Albumin Latest Ref Range: 3.2 - 4.6 gm/dL 3.7 AST Latest Ref Range: 8 - 37 U/L 21 Hemoglobin A1C Latest Ref Range: 4.8 - 5.9 % 6.1 (A) Alk Phos Total Latest Ref Range: 45 - 117 U/L 71 ALT (SGPT) Latest Ref Range: 12 - 78 U/L 21 Bili Total Latest Ref Range: 0.2 - 1 mg/dL 0.50 Calcium Latest Ref Range: 8.5 - 10.1 mg/dL 8.5 GFR Latest Units: mL/MIN 8 GFR AFR AMER Latest Units: mL/MIN 9 Total Protein Latest Ref Range: 6.4 - 8.2 gm/dL 7.5 ASSESSMENT: 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 ?If sugar in the morning before breakfast is below 100, drop the Lantus by 2 units. ?If sugars go below 100 any time during the day, drop all Humalog doses by 1 unit. ?The HbA1c is not a good measure of sugar control in renal failure or with anemia, and he has both. ?The krishnamurthy to this approach is that he needs to check sugars 4 times a day for now, and make the insulin adjustments as the sugars demand it. Brett Reese III MD 03/07/2018 10:33 AM Signed PLAN: healthy diet and exercise as able same medications Brett Reese III MD Referring Provider: SELF [[id number]] Allergies As of Date: 03/07/2018 Noted Allergy Reaction BACTRIM (SULFAMETHOXAZOLE) 02/13/2013 4 - Hives LIPITOR (ATORVASTATIN CALCIUM) 10/10/2011 14 - Other: See Comments Comments: myalgia METFORMIN 01/02/2008 2 - Rash NORVASC (AMLODIPINE BESYLATE) 08/31/2014 7 - Swelling Date Reviewed: 03/07/2018 Reviewed by: Linda Foster Ma - Fully Assessed Reason for Visit: F/U 3 Month [443] Primary Visit Diagnosis:Essential hypertension, benign [I10] Other Visit Diagnoses:Hyperlipidemia LDL goal <100 [E78.5] Diabetes mellitus type 2 with neurological manifestations (HCC) [E11.49] 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 (HCC) [E11.39, E11.65] Type 2 diabetes mellitus with stage 4 chronic kidney disease, with long-term current use of insulin (HCC) [E11.22, N18.4, Z79.4] Chronic kidney disease, stage IV (severe) (HCC) [N18.4] End stage kidney disease (HCC) [N18.6] Order(s):Insulin [place], Disposable, (BD ULTRAFINE III MINI PEN) 31 gauge x 3/16 ndleuse four times/dayDisp: 100 EachRfl: 11 insulin lispro (HUMALOG KWIKPEN INSULIN) 100 unit/mL inpnInject 14 Units subcutaneously twice daily with meals.Disp: 45 mLRfl: 3 Prescriptions as of 03/07/2018 Sig: PEN NEEDLE, DIABETIC 31 GAUGE* use four times/day INSULIN LISPRO (U-100) 100 UN* Inject 14 Units subcutaneousl* FUROSEMIDE 40 MG TABLET Take 1 tablet by mouth twice * ROSUVASTATIN 10 MG TABLET Take 1 tablet by mouth once d* FINASTERIDE 5 MG TABLET Take 1 tablet by mouth once d* LABETALOL 300 MG TABLET Take 1 tablet by mouth twice * NIFEDIPINE ER 60 MG TABLET,EX* Take 1 tablet by mouth once d* CALCITRIOL 0.5 MCG CAPSULE Take 0.5 mcg by mouth once da* CALCIUM ACETATE 667 MG TABLET Take 667 mg by mouth three ti* ERGOCALCIFEROL (VITAMIN D2) 5* Take 50,000 Units by mouth q * LOSARTAN 100 MG TABLET Take 1 tablet by mouth once d* INSULIN GLARGINE (U-100) 100 * INJECT 28 (unless active then* POLYSACCHARIDE IRON COMPLEX 1* Take 1 capsule by mouth twice* TRIAMCINOLONE ACETONIDE 0.1 %* Apply 1 application to affect* LANCETS Test blood sugar(s) 4 daily. * * BLOOD SUGAR DIAGNOSTIC STRIPS Test blood sugar(s) two times* CALCITRIOL 0.25 MCG CAPSULE Take 1 capsule by mouth once * CHOLECALCIFEROL (VITAMIN D3) * Take 1 capsule by mouth once * Problem List As Of Date 03/07/2018 Noted Resolved BENIGN HYPERTENSION [I10] Hyperlipidemia LDL goal <100 [E78.5] Sebaceous cyst [L72.3] INVALID FOR*09/20/2016 Erectile Dysfunction [N52.9] INVALID FOR* Osteoarthritis of left knee [M17.12] INVALID FOR* BPH (benign prostatic hyperplasia) [N40.0] INVALID FOR* Tinnitus [H93.19] INVALID FOR* Hearing loss [H91.90] INVALID FOR* 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*INVALID FOR* DM (diabetes mellitus) type II uncontrolled wit*INVALID FOR* Chronic kidney disease, stage IV (severe) (HCC)*INVALID FOR* Fracture of forearm, closed [S52.90XA] INVALID FOR*09/20/2016 Type 2 diabetes mellitus with stage 4 chronic k*INVALID FOR* Essential tremor [G25.0] INVALID FOR* Anemia in stage 5 chronic kidney disease, not o*INVALID FOR* Hypocalcemia [E83.51] INVALID FOR*03/07/2018 Vitamin D deficiency [E55.9] INVALID FOR* End stage kidney disease (HCC) [N18.6] INVALID FOR* More... Other instructions from your clinician: PLAN: healthy diet and exercise as able same medications Brett Reese III MD Prescriptions ordered this encounter Disp Refills Start End PEN NEEDLE, DIABETIC 31 GAUGE X 09/20 100 * 11 03/07/2018 Sig: use four times/day INSULIN LISPRO (U-100) 100 UNIT/ML S* 45 mL 3 03/07/2018 Route: SUBCUTANEOUS Sig: Inject 14 Units subcutaneously twice daily with meals. Medications Discontinued During This Encounter metOLAzone (ZAROXOLYN) 5 mg tablet 30 t* 11 10/16/2017 03/07/2018 Route: ORAL Sig: Take 1 tablet by mouth once daily. Disc: Course of therapy completed UNIFINE PENTIPS 31 gauge x 16 ndle 300 * 3 09/19/2017 03/07/2018 Sig: USE 3 NEEDLES PER DAY INSTRUCTED Disc: Patient chooses alternative therapy BD ULTRAFINE III MINI PEN 31 gauge x* 100 * 3 09/03/2016 03/07/2018 Sig: USE ONCE DAILY Disc: Patient chooses alternative therapy insulin lispro (HUMALOG KWIKPEN) 100* 45 mL 3 07/12/2017 03/07/2018 Class: Med Update Route: SUBCUTANEOUS Sig: Inject 14 Units subcutaneously twice daily with meals. Disc: Reason for discontinue is not on file. Encounter Status:Closed by BRETT REESE III, MD on 03/07/18 HLA CLASS II AB Collected: 02/28/2018 Status: F Source: [facility] SCREEN,FC 3:[facility] TYPE CODE TESTS RESULT OUT OF REFERENCE UNITS RANGE LAB HLA2S(LOINC ) HLA CLASS SEE COMMENT II AB SCREEN,FC Result Comment: HLA CLASS II AB SCREEN,FLOW CYTOMETRY SEE SEPARATE REPORT. Performed By: #### HLAS2 #### [facility] [address] [place] [address] SURGERY VISIT REPORT Observed: 02/05/2018 Status: F Source: [place] 8:12 AM [facility] REPOSITORY [facility] [address] [place] [address] OFFICE VISIT Date of Service: 02/05/18 MR#: [id number] Acct: [id number] Name: RODRI GALE Rep #: [id number] : 1955 Provider: Benjamín Reese MD Age/Sex: 62/M Location: [facility] Status: Signed Intake Intake Visit Reasons: dialysis cath removal Chief Complaint: dialysis cath removal and branch ligation Missionary Coordinator Required: No Is patient in pain?: No Allergies metformin Allergy (Verified 02/05/18 07:28) Itching Sulfa (Sulfonamide Antibiotics) Allergy (Verified 02/05/18 07:28) Swelling Medications Insulin Glargine [Lantus SoloStar Pen] 26 units SC DAILY 04/07/13 [History Confirmed 02/05/18] calcitriol 0.25 mcg capsule 0.5 mcg PO DAILY 07/10/17 [History Confirmed 02/05/18] finasteride 5 mg tablet 5 mg PO DAILY 07/10/17 [History Confirmed 02/05/18] furosemide 20 mg tablet 40 mg PO BID 07/10/17 [History Confirmed 02/05/18] losartan 50 mg tablet 100 mg PO DAILY 07/10/17 [History Confirmed 02/05/18] rosuvastatin 10 mg tablet 10 mg PO DAILY 07/10/17 [History Confirmed 02/05/18] Ergocalciferol [Vitamin D] 50,000 unit PO QMONTH 08/19/17 [History Confirmed 02/05/18] Insulin Lispro [Humalog] 10 - 12 unit SC BID 08/19/17 [History Confirmed 02/05/18] Iron Polysaccharide Complex [Ferrex 150] 150 mg PO DAILYCM 08/19/17 [History Confirmed 02/05/18] Nifedipine [Nifedipine ER] 60 mg PO DAILY 09/09/17 [History Confirmed 02/05/18] Calcium Acetate [Phoslo Gel Cap] 1,334 mg PO TIDCM 09/16/17 [History Confirmed 02/05/18] Folic Acid/Vitamin B Comp W-C [Nephrocaps, Renaphro] 1 cap PO DAILY #30 cap 11/02/17 [Rx Confirmed 02/05/18] Labetalol [Trandate (Beta Reuben)] 300 mg PO BID tab 11/02/17 [Rx Confirmed 02/05/18] [facility] Medical History Renal failure (Chronic) Essential hypertension (Chronic) Type II diabetes mellitus (Chronic) Hypercholesterolemia (Chronic) Anemia (Chronic) Presence of surgically created primary arteriovenous shunt for hemodialysis (Acute) Open fracture at right wrist or hand level (Resolved) Screening for intestinal cancer (Resolved) Surgical History Presence of surgically created arteriovenous shunt for hemodialysis (Acute) S/P colonoscopy (Acute) Family History Mother Diabetes Hypertension Heart disease Cancer lung Brother Diabetes Father Diabetes Cancer pancreas Social History Smoking Status: Former smoker HPI HPI HPI: RODRI GALE, is a 62 M who presents to the office today for surgical removal of his right internal jugular tunneled dialysis catheter. Exam Extrem Other: Left forearm radiocephalic arteriovenous fistula has a strong pulse, thrill, bruit. Office Procedures [facility] Procedure Procedure Performed By: Procedure performed by: bernarda reese Details Removal of right internal jugular tunneled dialysis catheter Timeout and informed consent was obtained. 62-year-old gentleman was taken to procedure room placed on the table. The right neck and chest were sterilely prepped and draped. 1% lidocaine mixed 50-50 with 0.5% Marcaine was used as local anesthetic. A total of 3 cc was used. A transverse incision was created directly over the cuff. Sharp blunt dissection was used to remove the cuff. The catheter was removed to continuous direct pressure held upon the tunnel site. The counterincision was closed with interrupted 3-0 chromic subdermal stitches. Steri-Strips Telfa OpSite dressings applied. He was given activity and wound care instructions. There were no apparent complications. No blood loss. He tolerated the procedure well. Benjamín Reese M.D., CharCuArelioS. Assessment AND Plan Problems 1. Problem with dialysis access, subsequent encounter T82.898D Plan The patient is been effectively dialyzed via his left forearm radiocephalic arteriovenous fistula. There successful removal of a right internal jugular dialysis catheters. Further surgical follow-up can be as needed. Benjamín Reese M.D., F.A.C.S. Orders Orders: Coding Level of Care Code No Charge Diagnoses Problem with dialysis access, subsequent encounter T82.898D Encounter type: subsequent encounter Comment [id number] 02/05/18 0812 <Electronically signed by Benjamín Reese MD> Date Benjamín Reese MD Cosigner Signature: Date (if applicable) CC: Brett Reese III, MD HLA CLASS II AB Collected: 02/03/2018 Status: F Source: UNIVERSITY SCREEN,FC 11:01 [facility] REPOSITORY TYPE CODE TESTS RESULT OUT OF REFERENCE UNITS RANGE LAB HLA2S(LOINC ) HLA CLASS SEE COMMENT II AB SCREEN,FC Result Comment: HLA CLASS II AB SCREEN,FLOW CYTOMETRY SEE SEPARATE REPORT. Performed By: #### HLAS2 #### [facility] [address] [place] [address] HLA CLASS I SP AB Collected: 02/03/2018 Status: F Source: [facility]ERSITY ID,HD 11:01 [facility] TYPE CODE TESTS RESULT OUT OF REFERENCE UNITS RANGE LAB HL1HD(LOINC ) HLA CLASS SEE COMMENT I SP AB ID,HD Result Comment: HLA-CLASS I SP ANTIBODY IDENTIFICATION, HIGH DEFINITION SEE SEPARATE REPORT. Performed By: #### HL1HD #### [facility] [address] [place] [address] COMPREHENSIVE METABOLIC Collected: 01/20/2018 Status: F Source: [place]UARDO VALENZUELA 6:22 AM [facility] REPOSITORY TYPE CODE TESTS RESULT OUT OF RANGE REFERENCE UNITS LAB L501.0100 74-106 mg/dL High GLU 151 Result Comment: Fasting Glucose result greater than or equal to 126 mg/dL suggests DIABETES MELLITUS per A.D.A. criteria. Please note revised GLUCOSE reference range effective 2017. LAB L501.1000 7-18 mg/dL High BUN 48 LAB L501.1100 0.70-1.30 mg/dL High alert CREAT,SERUM 7.55 Result Comment: Critical Result(s) Called at: 08:18:52 01/20/2018 by: Adrianna Moeller to [facility] The validity of the calculated GFR AND GFRAA in patients over 70 years has not been determined. Clinical correlation is essential. LAB L501.1110 >60 mL/min Low EST GFR 8 Result Comment: Non- GFR Calc LAB L501.1115 >60 mL/min Low EST GFR - AA 9 Result Comment: GFR Calc LAB L501.1300 10-20 RATIO Low BUN/CRE 6.4 LAB L501.1500 6.4-8.2 g/dL Normal T PROT 7.5 LAB L501.1800 3.2-5.0 g/dL Normal ALB 3.7 LAB L501.1950 2.2-4.2 g/dL Normal GLOB 3.8 LAB L501.2000 0.9-2.4 RATIO Normal A/G 1.0 LAB L501.2200 8.5-10.1 mg/dL Normal CA 8.5 LAB L501.4100 15-37 U/L Normal AST 21 LAB L501.4305 45-117 U/L Normal ALK P 71 LAB L501.4405 16-61 U/L Normal ALT 21 LAB L501.4600 0.20-1.00 mg/dL Normal T BILI 0.50 LAB L501.5300 136-145 mmol/L Normal NA 142 LAB L501.5600 3.5-5.1 mmol/L Normal K 3.5 LAB L501.5900 98-107 mmol/L Normal CL 103 LAB L501.6100 21.0-32.0 mmol/L Normal CO2 28.0 LAB L501.6200 5-15 Normal GAP 11 Performed By: #### L500.4050, L501.9520 #### [facility] [address] [place], [address] THYROID STIM HORMONE Collected: 01/20/2018 Status: F Source: EDUARDO (TSH) 6:22 AM [facility] REPOSITORY TYPE CODE TESTS RESULT OUT OF RANGE REFERENCE UNITS LAB L501.9520 0.358-3.74 uIU/mL Normal TSH 0.69 Performed By: #### L500.4050, L501.9520 #### [facility] [address] [place], [address] HEMOGLOBIN A1C Collected: 01/20/2018 Status: F Source: [place] 6:22 AM [facility] REPOSITORY TYPE CODE TESTS RESULT OUT OF RANGE REFERENCE UNITS LAB L501.9985 4.2-6.3 % Normal HGB A1C 6.1 Performed By: #### L501.9985 #### [facility] [address] [place], [address] SURGERY VISIT REPORT Observed: 01/09/2018 Status: F Source: EDU[place]O 12:16 PM [facility] REPOSITORY [facility] [address] [place] [address] OFFICE VISIT Date of Service: 01/07/18 MR#: [id number] Acct: [id number] Name: RODRI GALE Rep #: [id number] : 1955 Provider: Jazlyn León PA-C Age/Sex: 62/M Location: [facility] Status: Signed with Addenda ADDENDUM by Jazlyn León PA-C on 01/09/18 at 1216 Addendum entered and electronically signed by Jazlyn León PA-C 01/09/18 12:16: Dr. Reese does not believe another fistulogram is warranted at this time. Follow-up for catheter removal once fistula has been continuously accessed without any issues. Intake Chief Complaint: dialysis cath removal and branch ligation Allergies metformin Allergy (Verified 01/07/18 14:08) Itching Sulfa (Sulfonamide Antibiotics) Allergy (Verified 01/07/18 14:08) Swelling Medications Insulin Glargine [Lantus SoloStar Pen] 26 units SC DAILY 04/07/13 [History Confirmed 01/07/18] calcitriol 0.25 mcg capsule 0.5 mcg PO DAILY 07/10/17 [History Confirmed 01/07/18] finasteride 5 mg tablet 5 mg PO DAILY 07/10/17 [History Confirmed 01/07/18] furosemide 20 mg tablet 40 mg PO BID 07/10/17 [History Confirmed 01/07/18] losartan 50 mg tablet 100 mg PO DAILY 07/10/17 [History Confirmed 01/07/18] rosuvastatin 10 mg tablet 10 mg PO DAILY 07/10/17 [History Confirmed 01/07/18] Ergocalciferol [Vitamin D] 50,000 unit PO QMONTH 08/19/17 [History Confirmed 01/07/18] Insulin Lispro [Humalog] 10 - 12 unit SC BID 08/19/17 [History Confirmed 01/07/18] Iron Polysaccharide Complex [Ferrex 150] 150 mg PO DAILYCM 08/19/17 [History Confirmed 01/07/18] Nifedipine [Nifedipine ER] 60 mg PO DAILY 09/09/17 [History Confirmed 01/07/18] Calcium Acetate [Phoslo Gel Cap] 1,334 mg PO TIDCM 09/16/17 [History Confirmed 01/07/18] Folic Acid/Vitamin B Comp W-C [Nephrocaps, Renaphro] 1 cap PO DAILY #30 cap 11/02/17 [Rx Confirmed 01/07/18] Labetalol [Trandate (Beta Reuben)] 300 mg PO BID tab 11/02/17 [Rx Confirmed 01/07/18] Assessment AND Plan Problems 1. Problem with dialysis access, subsequent encounter T82.898D Plan - VICTORINA Rob Dr. also evaluated this patient. At this time, we are not recommending a repeat fistulogram. I spoke with Rony from the dialysis center to recommend utilizing the ultrasound machine for access. They will attempt on to use the u/s machine. Patient has had the opportunity to ask and have questions answered. Patient verbally understands and agrees with the plan. 01/09/18 1216 <Electronically signed by Jazlyn León PA-C> Date Jazlyn León PA-C cc: * Signed Intake Intake Visit Reasons: difficulty cannulating Chief Complaint: dialysis cath removal and branch ligation Missionary Coordinator Required: No Is patient in pain?: No Allergies metformin Allergy (Verified 01/07/18 14:08) Itching Sulfa (Sulfonamide Antibiotics) Allergy (Verified 01/07/18 14:08) Swelling Medications Insulin Glargine [Lantus SoloStar Pen] 26 units SC DAILY 04/07/13 [History Confirmed 01/07/18] calcitriol 0.25 mcg capsule 0.5 mcg PO DAILY 07/10/17 [History Confirmed 01/07/18] finasteride 5 mg tablet 5 mg PO DAILY 07/10/17 [History Confirmed 01/07/18] furosemide 20 mg tablet 40 mg PO BID 07/10/17 [History Confirmed 01/07/18] losartan 50 mg tablet 100 mg PO DAILY 07/10/17 [History Confirmed 01/07/18] rosuvastatin 10 mg tablet 10 mg PO DAILY 07/10/17 [History Confirmed 01/07/18] Ergocalciferol [Vitamin D] 50,000 unit PO QMONTH 08/19/17 [History Confirmed 01/07/18] Insulin Lispro [Humalog] 10 - 12 unit SC BID 08/19/17 [History Confirmed 01/07/18] Iron Polysaccharide Complex [Ferrex 150] 150 mg PO DAILYCM 08/19/17 [History Confirmed 01/07/18] Nifedipine [Nifedipine ER] 60 mg PO DAILY 09/09/17 [History Confirmed 01/07/18] Calcium Acetate [Phoslo Gel Cap] 1,334 mg PO TIDCM 09/16/17 [History Confirmed 01/07/18] Folic Acid/Vitamin B Comp W-C [Nephrocaps, Renaphro] 1 cap PO DAILY #30 cap 11/02/17 [Rx Confirmed 01/07/18] Labetalol [Trandate (Beta Reuben)] 300 mg PO BID tab 11/02/17 [Rx Confirmed 01/07/18] PFSH Medical History Renal failure (Chronic) Essential hypertension (Chronic) Type II diabetes mellitus (Chronic) Hypercholesterolemia (Chronic) Anemia (Chronic) Presence of surgically created primary arteriovenous shunt for hemodialysis (Acute) Open fracture at right wrist or hand level (Resolved) Screening for intestinal cancer (Resolved) Surgical History Presence of surgically created arteriovenous shunt for hemodialysis (Acute) S/P colonoscopy (Acute) Family History Mother Diabetes Hypertension Heart disease Cancer lung Brother Diabetes Father Diabetes Cancer pancreas Social History Smoking Status: Former smoker HPI HPI HPI: RODRI GALE, is a 62 M I am following for chronic renal failure. Patient has a left forearm radiocephalic AV fistula. Patient was released in November to have dialysis utilize his fistula. Dialysis has been having difficultly with cannulating at the superior aspect of the fistula. Dr. Reese performed a fistulogram on 12/20/17. Findings included high-grade areas of serial stenosis of the left forearm cephalic vein. This was treated with a 6 x 8 mm ever cross angioplasty. Patient continues to have chest catheters. Patient notes when he dialyzes it is uncomfortable. He notes the second access site near the anastomosis cannulates well. He stated his last dialysis treatment, they tried 4 separate times with the superior access site and was unable to successfully access. He noted they had to use the chest catheters. Dialysis center was contacted and noted they heard a decreased bruit and thrill. They do not have ultrasound in the building at this time. Exam Const General: cooperative, healthy appearing, comfortable, no acute distress Extrem Other: Left forearm AV fistula- good pulse, bruit and thrill. Dr. Reese performed an ultrasound exam in the office which demonstrated good depth from the skin surface. Non-significant narrowing mid forearm approximately 1 cm in length. Assessment AND Plan Problems 1. Problem with dialysis access, subsequent encounter T82.206D Plan Dr. Reese also evaluated this patient. At this time, we are not recommending a repeat fistulogram. I spoke with Rony from the dialysis center to recommend utilizing the ultrasound machine for access. They will attempt on to use the u/s machine. Patient has had the opportunity to ask and have questions answered. Patient verbally understands and agrees with the plan. Coding Level of Care Code Off vis,est,level 3 Diagnoses Problem with dialysis access, subsequent encounter T82.898D Encounter type: subsequent encounter 01/09/18 1214 <Electronically signed by Jazlyn León PA-C> Date Jazlyn León PA-C Cosigner Signature: Date (if applicable) CC: OPERATIVE REPORT Observed: 12/21/2017 Status: F Source: [place] 6:05 [facility] REPOSITORY [facility] Medical Records Department [address] [place] [id number] Operative Report 12/20/17 1300 MR#: [id number] Acct: [id number] Name: RODRI GALE Rep #: [id number] : 1955 62 From: Benjamín Reese MD PCP: Brett Reese III, MD Status: REG [facility] Location: [facility] Problem List (1) Problem with dialysis access Status: Chronic Qualifiers: Encounter type: subsequent encounter Qualified Code(s): T82.898D - Other specified complication of vascular prosthetic devices, implants and grafts, subsequent encounter Report of Operation Date of Procedure: 12/20/17 Pre-Operative Diagnosis: Diminished flow left forearm radial to cephalic arteriovenous fistula Post-Operative Diagnosis: Diminished flow left forearm radial to cephalic arteriovenous fistula Surgery/Procedure Performed:: Diminished flow left forearm radial to cephalic arteriovenous fistula Description of Surgical Findings:: Timeout and informed consent was obtained. 62-year-old gent was taken to the special procedures lab. He was placed on the table. The left upper extremity was sterilely prepped draped. He received 50 mcg fentanyl and 1 mg of Versed as intravenous sedation. Under ultrasound inspection the cephalic vein was identified in the proximal forearm. Under ultrasound guidance 2% lidocaine was instilled. Micropuncture needle inserted. Micropuncture wire inserted. 6 [place] short sheath dilator was inserted. Using 035 angled Glidewire and a 4 [place] angled glide cath [place] was gained to the radial artery proximal to the anastomosis. Using Isovue Acosta gram was obtained. This demonstrated high-grade venous stenosis within the proximal 8 cm of the fistula and a beaded approach. A 6 x 8 mm ever cross balloon was inserted. This was insufflated to 18 abraham of pressure. There is good release of the areas of stenosis. In order to be able to tolerate that I did inject local at the site of the wrist. This assisted greatly with his comfort. He tolerated the procedure well. The balloon was removed the glide catheter inserted and final fistulogram was obtained now demonstrating resolution of all the areas of venous stenosis in the proximal forearm cephalic vein. There is now wide open flow. Impression High-grade areas of serial stenosis of the left forearm cephalic vein with an otherwise widely patent radial arterial anastomosis and good venous outflow. Successfully treated angioplasty with resolution of stenosis. Benjamín Reese M.D., F.A.C.S. 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 He has been refrred for Cardiac risk stratification pre kidney transplantation. He has several potential living donors. He is known pro have ESRD x 17 years and produces normal amounts of urine. He recently had diuretic schedule escalated with the addition of metolazone last week He is NOT ON DIALYSIS but is being planne d for this intervention. He is s/p AVF surgery in September 2017 and is awaiting AVF revision. . 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 He has iron deficiency anaemia s/p EPO injection and iron infusions. He has been HTNsive for 40 years and does not think he has veer had good BP control. No personal history or admissions with heart disease Symptomatically his most pressing symptom is leg swelling with the quynh of kidney disease in spite of diuresis. (See also RoS). Functionally, he limited by anasarca but was recently able to work. 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 His exercise tolerance is described as unlimited . Occasionally he gets SOBOE but he attributes this to hypoglycemia. No exertional chest pain or syncope. He c/o palpitations that occur constantly with - no associated symptoms. No history of falls PSurg Hx: Right wrist surgery SocHx Ex smoker and stopped 1976, prev 1 PPD for 5-7 years ETOH- 1 beer once a week/month. No heavy drinking in past No illicit drug use SFMHX children all healthy, son had collapsed lung x 3 times at age 19 years Sister- 4 CVAs at age 39 years Parents - HTN Mother- NM first at mid 60s Father- DM, HL Father- pancreatic cancer Brother- CABG at 62 years Brother - CABG in his early 50s Ix: TTE 10/03/2017 The left ventricular systolic function is normal. 2. Spectral Doppler shows an abnormal pattern of left ventricular diastolic filling. 3. The left atrium is moderately dilated. QUANTITATIVE DATA SUMMARY: 2D MEASUREMENTS: Normal Ranges: IVSd: 1.50 cm (0.6-1.1cm) LVPWd: 1.20 cm (0.6-1.1cm) LVIDd: 4.60 cm (3.9-5.9cm) LVIDs: 3.40 cm LV Mass Index: 111.3 g/m2 LV % FS 26.1 % Physician portal has been reviewed by me for salient history. All cardiovascular imaging and testing available in Physician portal, and [facility] has been reviewed. ECG done in office today has been reviewed independently by me. Active Problems Anemia, iron deficiency (280.9) (D50.9) Benign essential hypertension (401.1) (I10) Diabetes mellitus (250.00) (E11.9) Hyperlipidemia (272.4) (E78.5) Pre-transplant evaluation for ESRD (end stage renal disease) (V72.83) (Z01.818) Surgical History History of Transurethral Resection Of Prostate (TURP) History of Wrist Surgery Past Medical History History of BPH (V13.89) (Z87.438) Current Meds Calcitriol 0.25 MCG Oral Capsule; TAKE 2 CAPSULE Daily; Therapy: 02Aug2016 to (Evaluate:10Iyd9693) Recorded Rx By: MICHAEL; Dispense: 90 Days ; #: Sufficient Capsule; Refill: 0; GUANAKO = N; Record; Last Updated By: Citlali Lane; 10/24/2017 9:55:00 AM Calcium Acetate (Phos Binder) 667 MG Oral Capsule; TAKE 2 CAPSULES 3 TIMES DAILY WITH MEALS; Therapy: (Recorded:24Oct2017) to Recorded Dispense: 0 Days ; #: Sufficient Capsule; Refill: 0; GUANAKO = N; Record; Last Updated By: Citlali Lane; 10/24/2017 9:55:00 AM Ferrex 150 CAPS; TAKE 1 CAPSULE Daily; Therapy: (Recorded:24Oct2017) to Recorded Dispense: 0 Days ; #: Sufficient Capsule; Refill: 0; GUANAKO = N; Record; Last Updated By: Citlali Lane; 10/24/2017 9:55:00 AM Finasteride 5 MG Oral Tablet; TAKE 1 TABLET DAILY; Therapy: [id number] to Recorded Rx By: LEIDY; Dispense: 0 Days ; #: Sufficient Tablet; Refill: 0; GUANAKO = N; Record; Last Updated By: Citlali Lane; 10/24/2017 9:55:00 AM Furosemide 40 MG Oral Tablet; Take 1 tablet twice daily; Therapy: 15Aug2017 to (Evaluate:53Drg8518) Recorded Rx By: MICHAEL; Dispense: 90 Days ; #:180 Tablet; Refill: 0; GUANAKO = N; Record; Last Updated By: Citlali Lane; 10/24/2017 9:55:00 AM HumaLOG KwikPen 100 UNIT/ML Subcutaneous Solution Pen-injector; Therapy: 20Sep2016 to Recorded Rx By: HUGH; Dispense: 90 Days ; #:30 SOPN; Refill: 0; GUANAKO = N; Record; Last Updated By: Tanika Lenz; 08/23/2017 12:34:20 PM Labetalol HCl - 100 MG Oral Tablet; TAKE 4 TABLET Twice daily; Therapy: 94Ait5024 to (Evaluate:02Jan2017) Recorded Rx By: HUGH; Dispense: 90 Days ; #:720 Tablet; Refill: 0; GUANAKO = N; Record; Last Updated By: Citlali Lane; 10/24/2017 9:55:00 AM Labetalol HCl - 200 MG Oral Tablet; Therapy: 15Aug2017 to Recorded Rx By: MICHAEL; Dispense: 30 Days ; #:90 TABS; Refill: 0; GUANAKO = N; Record; Last Updated By: Misty Silverio; 10/24/2017 9:55:00 AM Lantus SoloStar 100 UNIT/ML Subcutaneous Solution Pen-injector; Therapy: 06Apr2016 to Recorded Rx By: VINICIUS; Dispense: 90 Days ; #:45 SOPN; Refill: 0; GUANAKO = N; Record; Last Updated By: Tanika Lenz; 08/23/2017 12:34:20 PM Losartan Potassium 100 MG Oral Tablet; Take 1 tablet daily; Therapy: 31Jul2017 to (Evaluate:48Rbl1968) Recorded Rx By: HUGH; Dispense: 30 Days ; #:30 Tablet; Refill: 0; GUANAKO = N; Record; Last Updated By: Citlali Lane; 10/24/2017 9:55:00 AM MetOLazone 5 MG Oral Tablet; Take 1 tablet daily; Therapy: (Recorded:24Oct2017) to Recorded Dispense: 0 Days ; #: Sufficient Tablet; Refill: 0; GUANAKO = N; Record; Last Updated By: Citlali Lane; 10/24/2017 9:55:00 AM Rosuvastatin Calcium 10 MG Oral Tablet; TAKE 1 TABLET DAILY; Therapy: 28Jul2016 to Recorded Rx By: HUGH; Dispense: 0 Days ; #: Sufficient Tablet; Refill: 0; GUANAKO = N; Record; Last Updated By: Citlali Lane; 10/24/2017 9:55:00 AM Vitamin D (Ergocalciferol) 12658 UNIT Oral Capsule; 1 csapssule every 3 weeks; Therapy: 46Dmd4052 to Recorded Rx By: RUPALI; Dispense: 90 Days ; #:13 Capsule; Refill: 0; GUANAKO = N; Record; Last Updated By: Citlali Lane; 10/24/2017 9:55:00 AM Allergies No Known Allergies Recorded By: Tali Roberson; 08/23/2017 4:36:23 PM Family History Family history of cerebrovascular accident (CVA) (V17.1) (Z82.3) Family history of diabetes mellitus (V18.0) (Z83.3) Family history of S/P CABG (coronary artery bypass graft) Family history of chronic kidney disease (V18.69) (Z84.1) Family history of chronic kidney disease (V18.69) (Z84.1) Social History Activities of daily living (ADL's), independent Does not use illicit drugs (V49.89) (Z78.9) Does not use tobacco (V49.89) (Z78.9) Ex-smoker for more than 1 year (V15.82) (Z87.891) Lives with family Minimum alcohol consumption Never smoker Retired Review of Systems Constitutional: recent fluid weight lb weight gain, but not feeling poorly, not feeling tired and no recent weight loss. Eyes: eyesight problems. ENT: no hearing loss. Cardiovascular: palpitations and lower extremity edema, but no chest pain, no tightness or heavy pressure, no shortness of breath, the heart rate was not slow and the heart rate was not fast. Respiratory: shortness of breath during exertion, but not coughing up sputum, no shortness of breath, no orthopnea and no postural nocturnal dyspnea. Gastrointestinal: no change in bowel habits and no blood in stools. Genitourinary: no burning sensation during urination and no hematuria. Musculoskeletal: joint swelling. Skin: no skin lesions. Neurological: no headaches and no dizziness. Psychiatric: no confusion. Endocrine: diabetes mellitus. Hematologic/Lymphatic: does not bleed easily and does not bruise easily. Vitals Vital Signs Recorded: 24Oct2017 09:31AMRecorded: 24Oct2017 08:45AM Heart Rate62 Rwslfpax289, HEO816 Qikqzizcv90, RUE77 Height5 ft 10.5 in Czknul967 lb 4.8 oz BMI Fylenlkenx99.29 BSA Calculated2.22 Physical Exam Constitutional: Very pleasant middle aged man in no CP or painful distress. clinically euthyroid. He said he felt his heart thumping during examination but clinically no apical increase in h eart rate and on ECG no e/o tachycardia today. Eyes: no erythema, swelling or discharge from the eye . Neck: no thyromegaly . Pulmonary: no increased work of breathing or signs of respiratory distress , normal percussion of chest , chest palpation normal and lungs clear to auscultation. Cardiovascular: carotid pulses 2+ bilaterally with no bruit , Hs 1,2- prominent S2. No extra cardiac tones, and 2-3+ to the knees bilaterally. Abdomen: Distended with ascites ++, SNT, BS wnl. Musculoskeletal: Grossly normal. Skin: skin warm and dry, normal skin turgor . Neurologic: Grossly normal. Psychiatric judgment and insight is normal , oriented to person, place and time , recent and remote memory intact and normal mood and affect . Left wrist AVF with good thrill Results/Data 10/24/2017: NSR, no ischaemic changes Hqnlleihhikmxt75Mvv2473 07:35AMSTali sanchez [Oct 16, 2017 2:59PM Tali Roberson] need cardiology as part of transplant work up Test NameResultFlagReference Echocardiogram(Report) [id number] [facility] [[email or web address]], [address] [place] [address], [address], [place] [address] and TRANSTHORACIC ECHOCARDIOGRA M REPORT Patient Name: RODRI GALE Reading [address] Beverley Huertas Physician: Study Date: 10/03/2017 Referring Tali Roberson MD Physician: MRN/PID: [id number] PCP: Accession/Order#: [id number] Department [facility] Location: Date of : 1955 Fellow: Gender: M Nurse: Admit Date: S onographer: Lisa Kern [facility] Admission Status: Outpatient Additional Staff: Height: 177.80 cm CC Report to: Weight: 101.15 kg Study Type: Echocardiogram BSA: 2.19 m2 Blood Pressur e: 151 /68 mmHg Diagnosis/ICD: Z01.818 Encounter for other preprocedural examination Indication: Kidney transplant evaluation Procedure/CPT: Echo Complete w/Full Doppler (75826) Patient History: Pertin ent History: Kidney disease. Study Detail: The following Echo studies were performed: 2D, M-Mode, Doppler and color flow. PHYSICIAN INTERPRETATION: Left Ventricle: The left ventricular systolic function is normal. The left ventricular cavity size is normal. There is mild left ventricular hypertrophy. Spectral Doppler shows an abnormal pattern of left ventricular diastolic filling. Left Atrium : The left atrium is moderately dilated. Right Ventricle: The right ventricle is normal in size. There is normal right ventricular global systolic function. Right Atrium: The right atrium is normal in s ize. Aortic Valve: The aortic valve is trileaflet. There is no evidence of aortic valve regurgitation. The peak instantaneous gradient of the aortic valve is 8.1 mmHg. Mitral Valve: The mitral valve is normal in structure. There is mild mitral annular calcification. There is mild mitral valve regurgitation. Tricuspid Valve: The tricuspid valve is structurally normal. No evidence of tricuspid regurgita tion. Pulmonic Valve: The pulmonic valve is structurally normal. There is trace pulmonic valve regurgitation. Pericardium: There is no pericardial effusion noted. Aorta: The aortic root is normal. CON CLUSIONS: 1. The left ventricular systolic function is normal. 2. Spectral Doppler shows an abnormal pattern of left ventricular diastolic filling. 3. The left atrium is moderately dilated. QUANTITAT KELLY DATA SUMMARY: 2D MEASUREMENTS: Normal Ranges: IVSd: 1.50 cm (0.6-1.1cm) LVPWd: 1.20 cm (0.6-1.1cm) LVIDd: 4.60 cm (3.9-5.9cm) LVIDs: 3.40 cm LV Mass Index: 111.3 g/m2 LV % FS 26.1 % LA VOLUME: Normal Ranges: LA Vol A4C: 83.3 ml (22+/-6mL/m2) LA Vol A2C: 87.4 ml LA Vol BP: 86.9 ml LA Vol Index A4C: 38.1ml/m2 LA Vol Index A2C: 40.0 ml/m2 L A Vol Index BP: 39.7 ml/m2 LA Area A4C: 23.0 cm2 LA Area A2C: 24.0 cm2 LA Major [place] A4C: 5.4 cm LA Major [place] A2C: 5.6 cm LA Volume Index: 39.0 ml/m2 M-MODE MEASUREMENTS: Normal Ranges : Ao Root: 3.60 cm (2.0-3.7cm) LAs: 4.80 cm (2.7-4.0cm) AORTA MEASUREMENTS: Normal Ranges: Asc Ao, d: 2.90 cm (2.1-3.4cm) Ao Arch: 3.00 cm (2.0- 3.6cm) LV SYSTOLIC FUNCTION BY 2D PLANIMETRY (MOD): Normal Ranges: EF-A4C View: 57.4 % (>55%) EF-A2C View: 55.3 % EF- Biplane: 57.4 % LV DIASTOLIC FUNCTION: Normal Ranges: MV Peak E: 0.86 m/s (0.7-1.2 m/s) MV Peak A: 0.76 m/s (0.42-0.7 m/s) E/A Ratio: 1.13 (1.0-2.2) MV lateral e' 0.13 m/s MV medial e' 0.07 m/s MV A Dur: 169.00 msec E/e' Ratio: 6.60 (<8.0) PulmV Sys Femi: 68.60 cm/s PulmV Austin Femi: 52.40 cm/s PulmV S/D Femi: 1.30 PulmV A Revs Femi: 22.60 cm/s PulmV A Revs Dur: 137.00 msec MITRAL VALVE: Normal Ranges: MV DT: 261 msec (150- 240msec) AORTIC VALVE: Normal Ranges: AoV Vmax: 1.42 m/s (<1.7m/s) AoV Peak P.1 mmHg (<20mmHg) LVOT Max Femi: 1.02 m/s (<1.1m/s) LVOT VTI: 26.20 cm LVOT Diameter: 2.20 cm (1.8-2.4cm) AoV Area,Vmax: 2.73 cm2 (2.5-4.5 cm2) RIGHT VENTRICLE: TAPSE: 19.0 mm RV s' 0.12 m/s TRICUSPID VALVE/RVSP: Normal Ranges: TV Vmax 2.31 m/s TV Peak P.3 mmHg PULMONIC VALVE: Normal Ranges: PV Accel Time: 201 msec (>120ms) PV Max Femi: 1.0 m/s (0.6-0.9m/s) PV Max P.8 mmHg Pulmonary Veins: PulmV A Revs Dur: 137.00 msec PulmV A Revs Femi: 22.60 cm/s PulmV Austin Femi: 52.40 cm/s PulmV S/D Femi: 1.30 Pul mV Sys Femi: 68.60 cm/s [id number] Beverley Huertas MD Electronically signed on 10/03/2017 at 9:46:13 AM Final Diagnoses/Problems Benign essential hypertension (401.1) (I10) Anemia, iron deficiency (280.9) (D50.9) Diabetes mellitus (250.00) (E11.9) Hyperlipidemia (272.4) (E78.5) Pre-transplant evaluation for ESRD (end stage renal disease) (V72.83) (Z01.818) ESRD (end stage renal disease) (585.6) (N18.6) History of Wrist Surgery History of BPH (V13.89) (Z87.438) Family history of cerebrovascular accident (CVA) (V17.1) (Z82.3) : Mother Family history of S/P CABG (coronary artery bypass graft) : Sibling Activities of daily living (ADL's), independent Does not use illicit drugs (V49.89) (Z78.9) Does not use tobacco (V49.89) (Z78.9) Ex-smoker for more than 1 year (V15.82) (Z87.891) Lives with family Minimum alcohol consumption Retired Impressions 62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 He has been refrred for Cardiac risk stratification pre kidney transplantation. He has several potential living donors. He is known pro have ESRD x 17 years and produces normal amounts of urine. He recently had diuretic schedule escalated with the addition of metolazone last week He is NOT ON DIALYSIS but is being planne d for this intervention. He is s/p AVF surgery in September 2017 and is awaiting AVF revision. . 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 He has iron deficiency anaemia s/p EPO injection and iron infusions. He has been HTNsive for 40 years and does not think he has ever had good BP control. No personal history or admissions with heart disease Plan: - Lipids done recently with PMD and was told that these are wnl. We will get these from Dr Reese. In interim he should continue high potency statin. - He has NOT yet commenced HD and will start with nuclear pharmacological stress testing. We discussed that if the stress test is abnormal, we need to consider getting LHC done despite potential nepohro toxic effects of contras and we will discuss in more detail if needed. - His BP control is suboptimal and we have changed Nifedipine to 90 mg once daily. Continued titration by Alfredito Rodriguez and Hugh His RCRI is ( high risk surgery, SCr > 2, insulin dependent DM) with an 11% risk of cardiac perioperative events. Once his stress test has been reviewed, will plan to append these notes with final cardiac risk stratification and recommendations. I spent 50 minutes with this patient. Greater than 50% of this time was spent in counseling and/or coordination of care. All Qs answered. Fide Padgett, kidney logistics coordinator Addendum, 12/13/2017: Mr Gale has now undergone non-invasive stress testing which did not show any inducible ischaemia. he should be considered a low- intermediate risk for kidney transplantation from a cardiac perspective and I will update the Nephrology team. I will plan to see him in 11/2018 with a stress test and TTE before than appointment. If he is transplanted in the interim, he will need to see us in [facility] 3 months following transplantation.1 1 Amended By: Elinor Nation; Dec 13 2017 1:26 PM EST Orders Benign essential hypertension Start: NIFEdipine ER 90 MG Oral Tablet Extended Release 24 Hour; Take 1 tablet daily Rx By: Elinor Nation; Dispense: 30 Days ; #:30 Tablet Extended Release 24 Hour; Refill: 11;For: Benign essential hypertension; GUANAKO = N; Verified Transmission to [facility]; Last Updated By: Ruslan Conn; 10/24/2017 9:49:47 AM Health Maintenance, Pre-transplant evaluation for ESRD (end stage renal disease) IO EKG Electrocardiogram- 12 Lead; Status:Complete - Retrospective Authorization; Done: 24Oct2017 Perform:In Office; Due:31Eif1203; Last Updated By:Paola Gama; 10/24/2017 8:47:30 AM;Ordered; For:Health Maintenance, Pre-transplant evaluation for ESRD (end stage renal disease); Ordered By:Elinor Nation; Pre-transplant evaluation for ESRD (end stage renal disease) NM Cardiac Stress/Rest Nuclear Med Order Part 1; Status:Hold For - Scheduling,Retrospective Authorization; Requested for:24Oct2017; Perform:[facility]; Due:03Nov2017; Last Updated By:Citlali Lane; 10/24/2017 9:56:08 AM;Ordered; For:Pre- transplant evaluation for ESRD (end stage renal disease); Ordered By:Elinor Nation; Radiologist to Determine Optimal Study : Y What are the patient's signs and symptoms? : pre-kidney transplant evaluation Unlinked Stop: Labetalol HCl - 200 MG Oral Tablet Rx By: MICHAEL; Dispense: 30 Days ; #:90 TABS; Refill: 0; GUANAKO = N; Record; Last Updated By: Citlali Lane; 10/24/2017 9:55:00 AM Patient Instructions 1. Increase Nifedipine to 90 mg daily 2. Radiology will call you with the appointment for the stress test, call [phone] if you dont hear from them to schedule it.1 . 1 Amended By: Citlali Lane; Oct 24 2017 10:07 AM EST End of Encounter Meds Calcitriol 0.25 MCG Oral Capsule; TAKE 2 CAPSULE Daily; Therapy: 02Aug2016 to (Evaluate:72Nnz2354) Recorded Calcium Acetate (Phos Binder) 667 MG Oral Capsule; TAKE 2 CAPSULES 3 TIMES DAILY WITH MEALS; Therapy: (Recorded:24Oct2017) to Recorded Ferrex 150 CAPS; TAKE 1 CAPSULE Daily; Therapy: (Recorded:24Oct2017) to Recorded Finasteride 5 MG Oral Tablet; TAKE 1 TABLET DAILY; Therapy: 28Aug2016 to Recorded Furosemide 40 MG Oral Tablet; Take 1 tablet twice daily; Therapy: 02Nji2947 to (Evaluate:25Nfa0739) Recorded HumaLOG KwikPen 100 UNIT/ML Subcutaneous Solution Pen-injector; Therapy: 20Sep2016 to Recorded Labetalol HCl - 100 MG Oral Tablet; TAKE 4 TABLET Twice daily; Therapy: 60Mkn5437 to (Evaluate:02Jan2017) Recorded Lantus SoloStar 100 UNIT/ML Subcutaneous Solution Pen-injector; Therapy: 48Knk4407 to Recorded Losartan Potassium 100 MG Oral Tablet; Take 1 tablet daily; Therapy: 31Jul2017 to (Evaluate:64Ezx2414) Recorded MetOLazone 5 MG Oral Tablet; Take 1 tablet daily; Therapy: (Recorded:63Ale4357) to Recorded NIFEdipine ER 90 MG Oral Tablet Extended Release 24 Hour; Take 1 tablet daily; Therapy: 24Oct2017 to (Evaluate:61Lad9280) Requested for: 24Oct2017; Last Rx:24Oct2017 Ordered Rosuvastatin Calcium 10 MG Oral Tablet; TAKE 1 TABLET DAILY; Therapy: 28Jul2016 to Recorded Vitamin D (Ergocalciferol) 96084 UNIT Oral Capsule; 1 csapssule every 3 weeks; Therapy: 04Sep2016 to Recorded Signatures Electronically signed by : Elinor Nation MD; Dec 13 2017 1:29PM EST (Author) Reviewed by : Chasity Kelly MD; Dec 15 2017 10:12PM EST CARDIAC STRESS/REST Observed: 12/05/2017 Status: F Source: [facility]06 AM [facility] REPOSITORY Patient Name: RODRI GALE STUDY: CARDIAC STRESS/REST INJECTION; 12/05/2017 11:06 am INDICATION: Signs/Symptoms: pre-kidney transplant evaluation. COMPARISON: None. ACCESSION NUMBER(S): [id number] ORDERING CLINICIAN: ELINOR NATION TECHNIQUE: DIVISION OF NUCLEAR MEDICINE PHARMACOLOGIC STRESS MYOCARDIAL PERFUSION SCAN, ONE DAY PROTOCOL The patient received an intravenous dose of 10.5 mCi of Tc-99m Myoview and resting emission tomographic (SPECT) images of the myocardium were acquired. The patient then received an intravenous infusion of 0.4 mg regadenoson (Lexiscan) followed by an additional dose of 33.1 mCi of Tc-99m Myoview. Stress phase SPECT images of the myocardium were then acquired. These included ECG-gated images to assess and quantify ventricular function. FINDINGS: Stress and rest images both demonstrate a normal distribution of perfusion throughout all LV segments with no sign of ischemia. ECG-gated images demonstrate normal LV size and myocardial contractility with an LV ejection fraction of 57 % (normal above 45 percent). IMPRESSION: 1. Normal stress myocardial perfusion imaging in response to pharmacologic stress. 2. Well-maintained left ventricular function. I personally reviewed the images/study and I agree with the findings as stated. This study was interpreted at [facility], [place], [place]. Electronically signed by: RODRI PLUNKETT MD SYNGO NUCLEAR ORDER Observed: 12/05/2017 Status: F Source: [place] 9:29 AM [facility], [address] [place] [address], [address], [place], [place] [address] and Nuclear Pharmacologic Stress Test Patient Name: RODRI GALE Ordering Physician: Rios Study Date: 12/05/2017 Reading Physician: [id number] Jamarcus Trejo MD MRN/PID: [id number] Referring Physician: Elinor Nation MD Accession/Order#: [id number] PCP: FLASH Reese MD Date of : 1955 Fellow: Gender: M Fellow: Admit Date: 12/05/2017 Patient Location: [facility] Admission Status: Outpatient Welcome Center Attendant: Height: 180.34 cm Nurse: Zoë Mendez RN, CVRN-BC Weight: 91.63 kg Internet Designer: N/A BSA: 2.12 m2 Technologist: Falguni CASTRO BMI: 28.17 kg/m2 Additional Staff: Age: 62 years cc report to: cc report to: Rios Study Type: Syngo Nuclear Order Diagnosis/ICD: I10 Essential (primary) hypertension Indication: Pre-Op Evaluation Procedure/CPT: [id number] REGADENOSON ([id number]);51-34382-7 NUCLEAR PHARMACOLOGIC STRESS TEST (62149) Study Details: Correct procedure and correct patient verified verbally and with ID Band checked. Patient History: Sedentary life style, hypertension, family history of coronary artery disease, renal failure, on dialysis and hyperlipidemia. Allergies: Metformin and Sulfa. Smoker: Former. Diabetes: Yes. Medications: The patient's prescribed medication is Insulin, Lantus, Labetalol, Lasix, Losartan, Nifedipine, and Rosuvastatin. The patient took medications as prescribed. Patient Performance: Patient received a total of 0.4 mg of Regadenoson at 9:55:44 AM. Patient received a total of 33.1 mCi of Myoview at 9:56:27 AM. The patient did not exercise during infusion. The pea k heart rate achieved was 65 bpm, which was 41 % of the age predicted target heart rate of 158 bpm. The resting blood pressure was 134/65 mmHg with a heart rate of 60 bpm. The patient developed no sympt oms during the stress exam. The blood pressure response was normal. The test was terminated due to: completed lab protocol. Patient has met the discharge criteria and is discharged to home. Baseline ECG: Resting ECG showed normal sinus rhythm with normal tracing. Stress ECG: Stress ECG showed normal sinus rhythm, with no abnormal findings. No ST changes. Stress Stage Data: +--+------+-------+ + HRSys BPDias BPComments +--+------+-------+ + 70057 65 +--+------+-------+ + 97082 59 0100 minute +--+------+-------+ + 41154 55 0200 minutes +--+------+-------+ + Recovery ECG: Recovery ECG showed normal sinus rhythm, with no abnormal findings. The heart rate recovery was normal. + +--+------+-------+ + HRSys BPDias BPComments + +--+------+-------+ + Recovery I 48698 53 0100 minute + +--+------+-------+ + [place] [address] 55 0200 minutes + +--+------+-------+ + Recovery [id number] 57 0400 minutes + +--+------+-------+ + [place] [address] 59 0600 minutes + +--+------+-------+ + Summary: 1. No clinical or electrocardiographic evidence for ischemia at a maximal infusion. 2. Normal ECG. 3. Normal Stress Test. 4. Nuclear image results are reported separately. 5. The adequate level of stress was achieved. [id number] Jamarcus rTejo MD Electronically signed on 12/05/2017 at 4:57:54 PM Final ABO/RH GROUP TEST Collected: 12/05/2017 Status: F Source: [place] 7:39 [facility] REPOSITORY TYPE CODE TESTS RESULT OUT OF RANGE REFERENCE UNITS LAB ABORH(LOINC ) ABO TYPE A LAB RH(LOINC) RH TYPE POS Performed By: #### ABORG #### [facility] [address] [place] [address] PATIENT PHENOTYPE Collected: 12/05/2017 Status: F Source: [place] 7:39 [facility] REPOSITORY TYPE CODE TESTS RESULT OUT OF REFERENCE UNITS RANGE LAB PTPHN(LOIN C) PATIENT SEE COMMENT PHENOTYPE Result Comment: A1 NEGATIVE Performed By: #### PTPHN #### [facility] [address] [place] [address] SURGERY VISIT REPORT Observed: 12/04/2017 Status: F Source: [place] 6:10 PM [facility] REPOSITORY [facility] [address] [place] [address] OFFICE VISIT Date of Service: 12/04/17 MR#: [id number] Acct: [id number] Name: RODRI GALE Rep #: [id number] : 1955 Provider: Benjamín Reese MD Age/Sex: 62/M Location: [facility] Status: Signed Intake Intake Visit Reasons: branch ligation L and cath removal Chief Complaint: dialysis cath removal and branch ligation Missionary Coordinator Required: No Is patient in pain?: No Allergies metformin Allergy (Verified 12/04/17 15:06) Itching Sulfa (Sulfonamide Antibiotics) Allergy (Verified 12/04/17 15:06) Swelling Medications Insulin Glargine [Lantus SoloStar Pen] 26 units SC DAILY 04/07/13 [History Confirmed 11/07/17] calcitriol 0.25 mcg capsule 0.5 mcg PO DAILY 07/10/17 [History Confirmed 11/07/17] finasteride 5 mg tablet 5 mg PO DAILY 07/10/17 [History Confirmed 11/07/17] furosemide 20 mg tablet 40 mg PO BID 07/10/17 [History Confirmed 11/07/17] losartan 50 mg tablet 100 mg PO DAILY 07/10/17 [History Confirmed 11/07/17] rosuvastatin 10 mg tablet 10 mg PO DAILY 07/10/17 [History Confirmed 11/07/17] Ergocalciferol [Vitamin D] 50,000 unit PO QMONTH 08/19/17 [History Confirmed 11/07/17] Insulin Lispro [Humalog] 10 - 12 unit SC BID 08/19/17 [History Confirmed 11/07/17] Iron Polysaccharide Complex [Ferrex 150] 150 mg PO DAILYCM 08/19/17 [History Confirmed 11/07/17] Nifedipine [Nifedipine ER] 60 mg PO DAILY 09/09/17 [History Confirmed 11/07/17] Calcium Acetate [Phoslo Gel Cap] 1,334 mg PO TIDCM 09/16/17 [History Confirmed 11/07/17] Folic Acid/Vitamin B Comp W-C [Nephrocaps, Renaphro] 1 cap PO DAILY #30 cap 11/02/17 [Rx Confirmed 11/07/17] Labetalol [Trandate (Beta Reuben)] 300 mg PO BID tab 11/02/17 [Rx Confirmed 11/07/17] PFSH Medical History Renal failure (Chronic) Essential hypertension (Chronic) Type II diabetes mellitus (Chronic) Hypercholesterolemia (Chronic) Anemia (Chronic) Presence of surgically created primary arteriovenous shunt for hemodialysis (Acute) Open fracture at right wrist or hand level (Resolved) Screening for intestinal cancer (Resolved) Surgical History Presence of surgically created arteriovenous shunt for hemodialysis (Acute) S/P colonoscopy (Acute) Family History Mother Diabetes Hypertension Heart disease Cancer lung Brother Diabetes Father Diabetes Cancer pancreas Social History Smoking Status: Former smoker HPI HPI HPI: RODRI HALLPPS, is a 62 M who presents to the office today for RODRI GALE, is a 62 M who presents to the office today for surgical follow-up regarding a left forearm radiocephalic arteriovenous fistula I created for him on September 11, 2017. Most recently on October 30, 2017 I performed a left upper extremity fistulogram. He had failed to mature left forearm radiocephalic AV fistula. There is moderate proximal left facial venous stenosis. I placed a 5 x 80 mm Lutonix drug-coated balloon. The patient still has tunneled right internal jugular dialysis catheters. He was scheduled today to return to have a side branch ligated for his left forearm fistula and removal of his dialysis catheters. Only for the first time this week he did have an attempt made at dialysis fistula. Apparently after 10 minutes it filled the support flow. Exam Const General: cooperative, healthy appearing Nutritional Appearance: average body habitus [facility] Head: normal to inspection Eyes General: appearance normal, both eyes and all related structures Neck Neck: normal visual inspection Chest Chest palpation AND inspection: normal inspection of the chest Resp Effort AND Inspection: normal respiratory effort Cardio Rate: regular rate Rhythm: regular rhythm GI Inspection: normal to inspection Palpation: soft, no hepatosplenomegaly Neuro General: CN's II-XI intact bilaterally Extrem General: no calf tenderness Other: Left forearm radiocephalic AV fistula with a pulse, thrill, bruit. Slightly deeper in position. Ultrasound inspection detects 2 small side branches. The fistula otherwise appears generally patent though small Office Procedures Procedure Time Out Time Out Informed consent given: Yes Consent signed: Yes Time out checklist: patient, procedure, site marked/identified, positioning of patient, supplies available, allergies confirmed, team agrees on procedure Time out staff in room: Yes Time out verified: Yes Time out date: 12/04/17 Time out time: 15:11 Vein Procedure Provider Documentation Details:: Left forearm radiocephalic arteriovenous hemodialysis fistula side branch ligation 2 Timeout and informed consent was obtained. The patient was taken to the procedure room placed on the table. The left forearm was inspected with ultrasound. 2 side branches were identified and marked. Subsequently left forearm was sterilely prepped and draped. 1% lidocaine mixed 50-50 with 0.5% Marcaine was used as a local anesthetic. Small transverse incisions were created. Blunt dissection was used to identify the side branches. The more distal forearm side branch was slightly larger. It was doubly ligated with 3-0 chromic and then divided. In the more proximal left forearm the branch was quite diminutive and fragile and I simply ligated it with the chromic. The wound edges were then approximated with interrupted 3-0 chromic subdermal stitches. Steri-Strips Telfa OpSite dressings applied. He will continue his arm exercises. Because the fistula is not ready support flow the hemodialysis catheters could not be removed today. Benjamín Reese M.D., F.A.C.S. Assessment AND Plan 1. Problem with dialysis access, subsequent encounter T82.898D Plan At this point we will need to leave the tunneled hemodialysis catheters in the right neck. The patient will resume attempts of hemodialysis through his left forearm radiocephalic arteriovenous fistula. If that is not successful then we will proceed with a repeat left upper extremity fistulogram. Again I would anticipate accessing closer to the antecubital space retrograde with flow. I would anticipate likely a balloon maturation angioplasty. The patient previously tolerated 5 mm and I would likely anticipate utilizing a 6 mm device. If the left forearm fistula supports flow then further intervention will not be required and the patient can return to the office for removal of his tunneled dialysis catheters. Benjamín Reese M.D., F.A.C.S. Plan Detail Other Orders Orders: Coding Level of Care Code No Charge Diagnoses Problem with dialysis access, subsequent encounter T82.898D Encounter type: subsequent encounter 12/04/171809 <Electronically signed by Benjamín Reese MD> Date Benjamín Reese MD [facility] Signature: Date (if applicable) CC: Abbie Rodriguez DO; Brett Reese III, MD SURGERY VISIT REPORT Observed: 11/12/2017 Status: F Source: [place] 8:10 AM [facility] REPOSITORY [facility] [address] [place] [address] OFFICE VISIT Date of Service: 11/12/17 MR#: [id number] Acct: [id number] Name: RODRI GALE Rep #: [id number] : 1955 Provider: Benjamín Reese MD Age/Sex: 62/M Location: [facility] Status: Signed Intake Intake Visit Reasons: f/u fistula rc Chief Complaint: recheck fistula Allergies metformin Allergy (Verified 11/07/17 08:24) Itching Sulfa (Sulfonamide Antibiotics) Allergy (Verified 11/07/17 08:24) Swelling Medications Insulin Glargine [Lantus SoloStar Pen] 26 units SC DAILY 04/07/13 [History Confirmed 11/07/17] calcitriol 0.25 mcg capsule 0.5 mcg PO DAILY 07/10/17 [History Confirmed 11/07/17] finasteride 5 mg tablet 5 mg PO DAILY 07/10/17 [History Confirmed 11/07/17] furosemide 20 mg tablet 40 mg PO BID 07/10/17 [History Confirmed 11/07/17] losartan 50 mg tablet 100 mg PO DAILY 07/10/17 [History Confirmed 11/07/17] rosuvastatin 10 mg tablet 10 mg PO DAILY 07/10/17 [History Confirmed 11/07/17] Ergocalciferol [Vitamin D] 50,000 unit PO QMONTH 08/19/17 [History Confirmed 11/07/17] Insulin Lispro [Humalog] 10 - 12 unit SC BID 08/19/17 [History Confirmed 11/07/17] Iron Polysaccharide Complex [Ferrex 150] 150 mg PO DAILYCM 08/19/17 [History Confirmed 11/07/17] Nifedipine [Nifedipine ER] 60 mg PO DAILY 09/09/17 [History Confirmed 11/07/17] Calcium Acetate [Phoslo Gel Cap] 1,334 mg PO TIDCM 09/16/17 [History Confirmed 11/07/17] Folic Acid/Vitamin B Comp W-C [Nephrocaps, Renaphro] 1 cap PO DAILY #30 cap 11/02/17 [Rx Confirmed 11/07/17] Labetalol [Trandate (Beta Reuben)] 300 mg PO BID tab 11/02/17 [Rx Confirmed 11/07/17] PFSH Medical History Renal failure (Chronic) Essential hypertension (Chronic) Type II diabetes mellitus (Chronic) Hypercholesterolemia (Chronic) Anemia (Chronic) Presence of surgically created primary arteriovenous shunt for hemodialysis (Acute) Open fracture at right wrist or hand level (Resolved) Screening for intestinal cancer (Resolved) Surgical History Presence of surgically created arteriovenous shunt for hemodialysis (Acute) S/P colonoscopy (Acute) Family History Mother Diabetes Hypertension Heart disease Cancer lung Brother Diabetes Father Diabetes Cancer pancreas Social History Smoking Status: Former smoker HPI HPI HPI: RODRI GALE, is a 62 M who presents to the office today for surgical follow-up status post left forearm radiocephalic arteriovenous fistula creation which occurred on September 11, 2017. I felt that the image fistula was not maturing well. On October 30, 2017 I performed a left upper extremity fistulogram with 5 x 80 mm drug-coated balloon angioplasty. He returns today now for follow-up. On his most recent visit he was hypotensive. That was 1 week ago and he was sent to the emergency room. It was revealed that his antihypertensive medication changes had caused that problem. The patient is feeling much improved today. He has no specific complaints. Exam Extrem Other: Left forearm radiocephalic arteriovenous fistula has a strong pulse, thrill, bruit. I inspected the area with ultrasound. Close to the anastomosis the fistula measures approximately between 4 and 6 mm in diameter. It otherwise appears to be nicely patent. Approximately 10 cm from the arterial anastomosis there appears to be a side branch exiting medially. The remainder of the fistula looks good Assessment AND Plan 1. Problem with dialysis access, subsequent encounter T82.898D Plan I am recommending the patient that he may initiate hemodialysis via his fistula next week. He still has indwelling dialysis catheters. I am recommending a future sidebranch ligation attempt. It might be reasonable at that setting to hopefully be able to combine a catheter removal and sidebranch ligation in an office procedure. We will schedule and proceed pending his ongoing progress. Benjamín Reese M.D., F.A.C.S. Coding Level of Care Code Global Post Op Diagnoses Problem with dialysis access, subsequent encounter T82.898D Encounter type: subsequent encounter 11/12/17 08 <Electronically signed by Benjamín Reese MD> Date Benjamín Reese MD Cosigner Signature: Date (if applicable) CC: SURGERY VISIT REPORT Observed: 11/07/2017 Status: F Source: [place] 10:17 AM [facility] REPOSITORY [facility] [address] [place] [address]. [address] [place] [address] OFFICE VISIT Date of Service: 11/07/17 MR#: [id number] Acct: [id number] Name: RODRI GALE Rep #: [id number] : 1955 Provider: Jazlyn León PA-C Age/Sex: 62/M Location: [facility] Status: Signed Intake Vital Signs11/07/17 Blood Pressure 146/60 Intake Visit Reasons: Fistula/ Suture Removal Chief Complaint: recheck fistula Missionary Coordinator Required: No Is patient in pain?: No Allergies metformin Allergy (Verified 11/07/17 08:24) Itching Sulfa (Sulfonamide Antibiotics) Allergy (Verified 11/07/17 08:24) Swelling Medications Insulin Glargine [Lantus SoloStar Pen] 26 units SC DAILY 04/07/13 [History Confirmed 11/07/17] calcitriol 0.25 mcg capsule 0.5 mcg PO DAILY 07/10/17 [History Confirmed 11/07/17] finasteride 5 mg tablet 5 mg PO DAILY 07/10/17 [History Confirmed 11/07/17] furosemide 20 mg tablet 40 mg PO BID 07/10/17 [History Confirmed 11/07/17] losartan 50 mg tablet 100 mg PO DAILY 07/10/17 [History Confirmed 11/07/17] rosuvastatin 10 mg tablet 10 mg PO DAILY 07/10/17 [History Confirmed 11/07/17] Ergocalciferol [Vitamin D] 50,000 unit PO QMONTH 08/19/17 [History Confirmed 11/07/17] Insulin Lispro [Humalog] 10 - 12 unit SC BID 08/19/17 [History Confirmed 11/07/17] Iron Polysaccharide Complex [Ferrex 150] 150 mg PO DAILYCM 08/19/17 [History Confirmed 11/07/17] Nifedipine [Nifedipine ER] 60 mg PO DAILY 09/09/17 [History Confirmed 11/07/17] Calcium Acetate [Phoslo Gel Cap] 1,334 mg PO TIDCM 09/16/17 [History Confirmed 11/07/17] Folic Acid/Vitamin B Comp W-C [Nephrocaps, Renaphro] 1 cap PO DAILY #30 cap 11/02/17 [Rx Confirmed 11/07/17] Labetalol [Trandate (Beta Reuben)] 300 mg PO BID tab 11/02/17 [Rx Confirmed 11/07/17] PFSH Medical History Renal failure (Chronic) Essential hypertension (Chronic) Type II diabetes mellitus (Chronic) Hypercholesterolemia (Chronic) Anemia (Chronic) Presence of surgically created primary arteriovenous shunt for hemodialysis (Acute) Open fracture at right wrist or hand level (Resolved) Screening for intestinal cancer (Resolved) Surgical History Presence of surgically created arteriovenous shunt for hemodialysis (Acute) S/P colonoscopy (Acute) Family History Mother Diabetes Hypertension Heart disease Cancer lung Brother Diabetes Father Diabetes Cancer pancreas Social History Smoking Status: Former smoker HPI HPI HPI: RODRI GALE, is a 62 M I am following for chronic renal failure. Patient recently was hospitalized with urgent tunneled dialysis catheters placement by Dr. Reese on 11/01/2017. Patient tolerated the procedure well. Patient is now on dialysis T, Th, Sat. Patient recently had a fistulogram on 10/30/2017 which demonstrated moderate proximal arterial stenosis at the anastomosis and diffuse diminutive vein in the proximal 3- 4 cm of the fistula. A 5 x 80 mm drug coated balloon Lutonix angioplasty was performed. Patient originally had his fistula created on September 11, 2017. Patient denies complications with tunneled dialysis catheters. He denies fistula pain/discomfort. He denies numbness/tingling. He notes his blood pressure is better controlled. Exam Const General: cooperative, healthy appearing, comfortable, no acute distress Chest Other: Right chest catheters- site c/d/i. No active drainage. Extrem Other: Left forearm AV fistula- good pulse, bruit and thrill. Incision nicely healed. Single suture removed and two steri-strips placed. Assessment AND Plan Problems 1. Stage 5 chronic 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 N18.6; Z99.2 Plan - Follow-up in 1 week for re-evaluation with Dr. Reese - Possible Release of fistula Coding Level of Care Code Global Post Op Diagnoses Stage 5 chronic 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 N18.6; Z99.2 Renal failure chronicity: chronic Chronic kidney disease stage: on chronic dialysis 11/07/17 1017 <Electronically signed by Jazlyn León PA-C> Date Jazlyn León PA-C Cosigner Signature: Date (if applicable) CC: Brett Reese III, MD 12 LEAD ELECTROCARDIOGRAM Observed: 11/06/2017 Status: F Source: [place] 6:10 PM [facility] REPOSITORY [facility] Cardiovascular Services [address] [place] [address] 12 Lead EKG 11/01/17 0505 MR#: [id number] Acct: [id number] Name: UMANGRODRI Stafford Rashard Rep #: [id number] : 1955 62 From: Damien Mendez MD Attending Dr: Gin Bundy MD Status: DIS IN Ordering Dr: Kelley Vail DO Date: 11/01/17 Location: U Sex: M C Admitted: 10/31/17 Test Reason : AM EKG Blood Pressure : / mmHG Vent. Rate : 069 BPM Atrial Rate : 069 BPM P-R Int : 164 ms QRS Dur : 102 ms QT Int : 452 ms P-R-T Axes : 042 015 031 degrees QTc Int : 484 ms Normal sinus rhythm Prolonged QT Abnormal ECG When compared with ECG of 31-OCT-2017 15:16, MANUAL COMPARISON REQUIRED, DATA IS UNCONFIRMED Confirmed by DAMIEN MENDEZ ([id number]), manuscript editor LEDY SAMPSON ([id number]) on 11/06/2017 8:52:39 AM Referred By: HEIKE Confirmed By:DAMIEN MENDEZ 11/06/17 0852 Date Damien Mendez MD CC: Gin Bundy MD; Brett Reese III, MD; Kelley Vail DO Signed 12 LEAD ELECTROCARDIOGRAM Observed: 11/06/2017 Status: F Source: [place] 6:09 PM [facility] REPOSITORY [facility] Cardiovascular Services [address] [place] [id number] 12 Lead EKG 10/31/17 1516 MR#: [id number] Acct: [id number] Name: RODRI GALE Rep #: [id number] : 1955 62 From: Damien Mendez MD Attending Dr: Gin Bundy MD Status: DIS IN Ordering Dr: Dave Molina DO Date: 10/31/17 Location: U Sex: M C Admitted: 10/31/17 Test Reason : BRADYCARIDA Blood Pressure : / mmHG Vent. Rate : 039 BPM Atrial Rate : 039 BPM P-R Int : 144 ms QRS Dur : 096 ms QT Int : 534 ms P-R-T Axes : -71 031 024 degrees QTc Int : 429 ms Unusual P axis, possible ectopic atrial bradycardia Abnormal ECG Confirmed by DAMIEN MENDEZ ([id number]), manuscript editor LEDY SAMPSON ([id number]) on 11/05/2017 2:46:05 PM Referred By: MICHAEL Confirmed By:DAMIEN MENDEZ 11/05/17 1446 Date Damien Mendez MD CC: Gin Bundy MD; Brett Reese III, MD; Dave Molina Signed PROGRESS Observed: 11/06/2017 Status: COMPLETED Source: [place] 11:19 AM [facility] REPOSITORY HNO ID: [id number] Author: Brett Reese III Service: (none) Author Type: Physician Type: Progress Notes Filed: 11/06/2017 12:45 PM Note Text: SUBJECTIVE: This is a 62 year old male that is here today for Hospital Discharge Follow up. Formerly [facility] hosp 10/24-. Reports reviewed. 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 3 sibs have ASHD. Pt has not had angina. he has had 3 dialyses with 20 lb wt loss. He feels much better with less KOHLI. Notes bilat knee pain . ---- 11/06/17: Hemoglobin A1c 6.3 Cholesterol 97 TG 97 HDL 37 LDL 36 WBC 9.5 hemoglobin 10.1 creatinine 5.83 GFR 11 phosphorus 3.9 Calcium 8.2 glucose 87 PAST MEDICAL HISTORY Diagnosis Date - Adult-onset obesity - Anemia in stage 5 chronic kidney disease, not on chronic dialysis ([facility]) 07/12/2017 - BMI 32.0-32.9,adult - BPH (benign prostatic hyperplasia) 03/06/2012 - Diabetes mellitus type 2 with neurological manifestations ([facility]) 02/13/2013 - 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 ([facility]) 08/31/2014 - Encounter for long-term (current) use of insulin ([facility]) - Enlarged prostate - Essential hypertension, benign - Hearing loss 09/10/2012 - Hypocalcemia 07/31/2017 - Hypoglycemia unawareness associated with type 2 diabetes mellitus ([facility]) - Kidney disease - Osteoarthritis of left knee 02/16/2011 - Other and unspecified hyperlipidemia - Pedal edema - Personal history of nicotine dependence - Tinnitus 09/10/2012 - Type 2 diabetes mellitus with stage 4 chronic kidney disease, with long-term current use of insulin ([facility]) 09/20/2016 - Vitamin D deficiency 07/31/2017 - White coat hypertension 02/09/2014 Current Outpatient Prescriptions on File Prior to Visit: labetalol (TRANDATE) 100 mg tablet Take 4 tablets by mouth twice daily. furosemide (LASIX) 40 mg tablet Take 1 tablet by mouth twice daily. UNIFINE PENTIPS 31 gauge x 5/16 ndle USE 3 NEEDLES PER DAY INSTRUCTED calcitriol (ROCALTROL) 0.5 mcg capsule Take 0.5 mcg by mouth once daily. calcium acetate (CALPHRON) 667 mg tablet Take 667 mg by mouth three times daily with meals. ergocalciferol, vitamin D2, (VITAMIN D) 50,000 unit capsule Take 50,000 Units by mouth q 3 WEEKS. losartan (COZAAR) 100 mg tablet Take 1 tablet by mouth once daily. insulin glargine (LANTUS SOLOSTAR) 100 unit/mL (3 mL) inpn INJECT 28 (unless active then 21 unit) UNITS UNDER THE SKIN DAILY insulin lispro (HUMALOG KWIKPEN) 100 unit/mL inpn Inject 14 Units subcutaneously twice daily with meals. iron polysaccharide complex (FERREX-150) 150 mg iron capsule Take 1 capsule by mouth twice daily. rosuvastatin (CRESTOR) 10 mg tablet TAKE 1 TABLET DAILY triamcinolone acetonide (KENALOG) 0.1 % cream Apply 1 application to affected area once daily. Apply to affected area as needed for itching. Location: lower legs BD ULTRAFINE III MINI PEN 31 gauge x 3/16 ndle USE ONCE DAILY finasteride (PROSCAR) 5 mg tablet Take 5 mg by mouth once daily. Lancets (ONE TOUCH DELICA) lancets Test blood sugar(s) 4 daily. Dx: 250.02 Insulin: Yes blood sugar diagnostic (ONE TOUCH ULTRA TEST) test strip Test blood sugar(s) two times daily. Dx: 250.02. Insulin: No metOLAzone (ZAROXOLYN) 5 mg tablet Take 1 tablet by mouth once daily. NIFEdipine ER (PROCARDIA XL) 90 mg 24 hr tablet Take 1 tablet by mouth once daily. calcitriol (ROCALTROL) 0.25 mcg capsule Take 1 capsule by mouth once daily. Cholecalciferol, Vitamin D3, 2,000 unit cap Take 1 capsule by mouth once daily. No current facility-administered medications on file prior to visit. FAMILY HISTORY Problem Relation Age of Onset - Diabetes Mother - Hypertension Mother - Heart Mother NM - lung cancer [OTHER] Mother bone metastasis - Diabetes Father - BPH [OTHER] Father - pancreatic cancer [OTHER] Father - Diabetes Brother - Diabetes Brother Social History Substance Use Topics - Smoking status: Former Smoker Packs/day: 1.00 Years: 6.00 Types: Cigarettes - Smokeless tobacco: Never Used Comment: quit - Alcohol use Yes Comment: RARE BP 144/62 Pulse 62 Resp 20 Wt 95.3 kg (210 lb) BMI 29.92 kg/m? . OBJECTIVE: APPEARANCE Well appearing, alert, in no acute distress, well-hydrated, well nourished., pale NECK Supple, no adenopathy; thyroid symmetric, normal size, no bruits HEART RRR with normal S1 and S2, no murmurs, no gallops, no JVD appreciated LUNG clear to auscultation EXTREMITIES Extremities normal, No deformities, No skin discoloration, No edema, Normal pulses bilaterally. and much less lower leg edema with no calf tenderness. 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?at goal Hypertension?acceptable Hyperlipidemia?at goal Recent hospitalization for symptomatic hypotension/bradycardia?resolved PLAN: same medications follow up with roll machine operator and senior internal auditor as appointed 40 minute visit?answering all questions and reviewing reports FLASH Mcleod MD, III MD CNOV Observed: 11/06/2017 Status: COMPLETED Source: [place] 10:40 AM [facility] REPOSITORY [facility] UMANGRODRI Stafford ([id number]) 1955 M Date Time Provider Department 11/06/17 10:40 AM BRETT REESE III During your visit today, we recorded the following information about you: Pulse Respiration Blood pressure Weight 62/minute 20/minute 144/62 95.3 kg Brett Reese III MD 11/06/2017 12:45 PM Signed SUBJECTIVE: This is a 62 year old male that is here today for Hospital Discharge Follow up. Formerly [facility] hosp 10/24-. Reports reviewed. 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 3 sibs have ASHD. Pt has not had angina. he has had 3 dialyses with 20 lb wt loss. He feels much better with less KOHLI. Notes bilat knee pain . 11/06/17: Hemoglobin A1c 6.3 Cholesterol 97 TG 97 HDL 37 LDL 36 WBC 9.5 hemoglobin 10.1 creatinine 5.83 GFR 11 phosphorus 3.9 Calcium 8.2 glucose 87 PAST MEDICAL HISTORY Diagnosis Date - Adult-onset obesity - Anemia in stage 5 chronic kidney disease, not on chronic dialysis (HCC) 07/12/2017 - BMI 32.0-32.9,adult - BPH (benign prostatic hyperplasia) 03/06/2012 - Diabetes mellitus type 2 with neurological manifestations ([facility]) 02/13/2013 - 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 ([facility]) 08/31/2014 - Encounter for long-term (current) use of insulin ([facility]) - Enlarged prostate - Essential hypertension, benign - Hearing loss 09/10/2012 - Hypocalcemia 07/31/2017 - Hypoglycemia unawareness associated with type 2 diabetes mellitus ([facility]) - Kidney disease - Osteoarthritis of left knee 02/16/2011 - Other and unspecified hyperlipidemia - Pedal edema - Personal history of nicotine dependence - Tinnitus 09/10/2012 - Type 2 diabetes mellitus with stage 4 chronic kidney disease, with long-term current use of insulin (HCC) 09/20/2016 - Vitamin D deficiency 07/31/2017 - White coat hypertension 02/09/2014 Current Outpatient Prescriptions on File Prior to Visit: labetalol (TRANDATE) 100 mg tablet Take 4 tablets by mouth twice daily. furosemide (LASIX) 40 mg tablet Take 1 tablet by mouth twice daily. UNIFINE PENTIPS 31 gauge x 11/20 ndle USE 3 NEEDLES PER DAY INSTRUCTED calcitriol (ROCALTROL) 0.5 mcg capsule Take 0.5 mcg by mouth once daily. calcium acetate (CALPHRON) 667 mg tablet Take 667 mg by mouth three times daily with meals. ergocalciferol, vitamin D2, (VITAMIN D) 50,000 unit capsule Take 50,000 Units by mouth q 3 WEEKS. losartan (COZAAR) 100 mg tablet Take 1 tablet by mouth once daily. insulin glargine (LANTUS SOLOSTAR) 100 unit/mL (3 mL) inpn INJECT 28 (unless active then 21 unit) UNITS UNDER THE SKIN DAILY insulin lispro (HUMALOG KWIKPEN) 100 unit/mL inpn Inject 14 Units subcutaneously twice daily with meals. iron polysaccharide complex (FERREX-150) 150 mg iron capsule Take 1 capsule by mouth twice daily. rosuvastatin (CRESTOR) 10 mg tablet TAKE 1 TABLET DAILY triamcinolone acetonide (KENALOG) 0.1 % cream Apply 1 application to affected area once daily. Apply to affected area as needed for itching. Location: lower legs BD ULTRAFINE III MINI PEN 31 gauge x 316 ndle USE ONCE DAILY finasteride (PROSCAR) 5 mg tablet Take 5 mg by mouth once daily. Lancets (ONE TOUCH DELICA) lancets Test blood sugar(s) 4 daily. Dx: 250.02 Insulin: Yes blood sugar diagnostic (ONE TOUCH ULTRA TEST) test strip Test blood sugar(s) two times daily. Dx: 250.02. Insulin: No metOLAzone (ZAROXOLYN) 5 mg tablet Take 1 tablet by mouth once daily. NIFEdipine ER (PROCARDIA XL) 90 mg 24 hr tablet Take 1 tablet by mouth once daily. calcitriol (ROCALTROL) 0.25 mcg capsule Take 1 capsule by mouth once daily. Cholecalciferol, Vitamin D3, 2,000 unit cap Take 1 capsule by mouth once daily. No current facility-administered medications on file prior to visit. FAMILY HISTORY Problem Relation Age of Onset - Diabetes Mother - Hypertension Mother - Heart Mother NM - lung cancer [OTHER] Mother bone metastasis - Diabetes Father - BPH [OTHER] Father - pancreatic cancer [OTHER] Father - Diabetes Brother - Diabetes Brother Social History Substance Use Topics - Smoking status: Former Smoker Packs/day: 1.00 Years: 6.00 Types: Cigarettes - Smokeless tobacco: Never Used Comment: quit - Alcohol use Yes Comment: RARE BP 144/62 Pulse 62 Resp 20 Wt 95.3 kg (210 lb) BMI 29.92 kg/m? . OBJECTIVE: APPEARANCE Well appearing, alert, in no acute distress, well- hydrated, well nourished., pale NECK Supple, no adenopathy; thyroid symmetric, normal size, no bruits HEART RRR with normal S1 and S2, no murmurs, no gallops, no JVD appreciated LUNG clear to auscultation EXTREMITIES Extremities normal, No deformities, No skin discoloration, No edema, Normal pulses bilaterally. and much less lower leg edema with no calf tenderness. 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?at goal Hypertension?acceptable Hyperlipidemia?at goal Recent hospitalization for symptomatic hypotension/bradycardia?resolved PLAN: same medications follow up with roll machine operator and senior internal auditor as appointed 40 minute visit?answering all questions and reviewing reports FLASH Mcleod MD, III MD Frank A Cebul, III MD 11/06/2017 11:37 AM Signed PLAN: same medications follow up with roll machine operator and senior internal auditor as appointed Brett Reese III MD Referring Provider: SELF [[id number]] Allergies As of Date: 11/06/2017 Noted Allergy Reaction BACTRIM (SULFAMETHOXAZOLE) 02/13/2013 4 - Hives LIPITOR (ATORVASTATIN CALCIUM) 10/10/2011 14 - Other: See Comments Comments: myalgia METFORMIN 01/02/2008 2 - Rash NORVASC (AMLODIPINE BESYLATE) 08/31/2014 7 - Swelling Date Reviewed: 11/06/2017 Reviewed by: Shari Yu LPN - Fully Assessed Reason for Visit: Recheck [92] Hospital Follow Up [177] Primary Visit Diagnosis:Essential hypertension, benign [I10] Other Visit Diagnoses:Hyperlipidemia LDL goal <100 [E78.5] Hypocalcemia [E83.51] Hospital discharge follow-up [Z09] End stage kidney disease (HCC) [N18.6] Order(s):LIPID PANEL (OUTSIDE) [3116976] Order #: [id number] HBA1C (OUTSIDE) [7004092] Order #: [id number] Prescriptions as of 11/06/2017 Sig: FUROSEMIDE 40 MG TABLET Take 1 tablet by mouth twice * UNIFINE PENTIPS 31 GAUGE X 5/* USE 3 NEEDLES PER DAY INST* CALCITRIOL 0.5 MCG CAPSULE Take 0.5 mcg by mouth once da* CALCIUM ACETATE 667 MG TABLET Take 667 mg by mouth three ti* ERGOCALCIFEROL (VITAMIN D2) 5* Take 50,000 Units by mouth q * LOSARTAN 100 MG TABLET Take 1 tablet by mouth once d* INSULIN GLARGINE (U-100) 100 * INJECT 28 (unless active then* INSULIN LISPRO (U-100) 100 UN* Inject 14 Units subcutaneousl* POLYSACCHARIDE IRON COMPLEX 1* Take 1 capsule by mouth twice* ROSUVASTATIN 10 MG TABLET TAKE 1 TABLET DAILY TRIAMCINOLONE ACETONIDE 0.1 %* Apply 1 application to affect* BD ULTRA-FINE MINI PEN NEEDLE* USE ONCE DAILY FINASTERIDE 5 MG TABLET Take 5 mg by mouth once daily. LANCETS Test blood sugar(s) 4 daily. * * BLOOD SUGAR DIAGNOSTIC STRIPS Test blood sugar(s) two times* LABETALOL 300 MG TABLET Take 1 tablet by mouth twice * NIFEDIPINE ER 60 MG TABLET,EX* Take 1 tablet by mouth once d* METOLAZONE 5 MG TABLET Take 1 tablet by mouth once d* CALCITRIOL 0.25 MCG CAPSULE Take 1 capsule by mouth once * CHOLECALCIFEROL (VITAMIN D3) * Take 1 capsule by mouth once * Problem List As Of Date 11/06/2017 Noted Resolved BENIGN HYPERTENSION [I10] Hyperlipidemia LDL goal <100 [E78.5] Sebaceous cyst [L72.3] INVALID FOR*09/20/2016 Erectile Dysfunction [N52.9] INVALID FOR* Osteoarthritis of left knee [M17.12] INVALID FOR* BPH (benign prostatic hyperplasia) [N40.0] INVALID FOR* Tinnitus [H93.19] INVALID FOR* Hearing loss [H91.90] INVALID FOR* 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*INVALID FOR* DM (diabetes mellitus) type II uncontrolled wit*INVALID FOR* Chronic kidney disease, stage IV (severe) (HCC)*INVALID FOR* Fracture of forearm, closed [S52.90XA] INVALID FOR*09/20/2016 Type 2 diabetes mellitus with stage 4 chronic k*INVALID FOR* Essential tremor [G25.0] INVALID FOR* Anemia in stage 5 chronic kidney disease, not o*INVALID FOR* Hypocalcemia [E83.51] INVALID FOR* Vitamin D deficiency [E55.9] INVALID FOR* End stage kidney disease (HCC) [N18.6] INVALID FOR* Other instructions from your clinician: PLAN: same medications follow up with roll machine operator and senior internal auditor as appointed Brett Reese III MD Medications Discontinued During This Encounter labetalol (TRANDATE) 100 mg tablet 10/16/2017 11/06/2017 Class: Med Update Route: ORAL Sig: Take 4 tablets by mouth twice daily. Disc: Reason for discontinue is not on file. NIFEdipine ER (PROCARDIA XL) 90 mg 2* 90 t* 0 10/11/2017 11/06/2017 Route: ORAL Sig: Take 1 tablet by mouth once daily. Disc: Reason for discontinue is not on file. Encounter Status:Closed by BRETT REESE III, MD on 11/06/17 RENAL PROFILE Collected: 11/06/2017 Status: F Source: [place] 6:02 AM [facility] REPOSITORY Order Comment: RENAL,CBC,PTH FOR DR RODRIGUEZ LIPID,A1C,BMP FOR DR REESE TYPE CODE TESTS RESULT OUT OF RANGE REFERENCE UNITS LAB L501.0100 74-106 mg/dL Normal GLU 87 Result Comment: Please note revised GLUCOSE reference range effective 2017. LAB L501.1000 7-18 mg/dL High BUN 38 LAB L501.1100 0.70-1.30 mg/dL High CREAT,SERUM 5.83 Result Comment: The validity of the calculated GFR AND GFRAA in patients over 70 years has not been determined. Clinical correlation is essential. LAB L501.1110 >60 mL/min Low EST GFR 11 Result Comment: Non- GFR Calc LAB L501.1115 >60 mL/min Low EST GFR - AA 13 Result Comment: GFR Calc LAB L501.1300 10-20 RATIO Low BUN/CRE 6.5 LAB L501.1800 3.2-5.0 g/dL Normal ALB 3.3 LAB L501.2200 8.5-10.1 mg/dL Low CA 8.2 LAB L501.2300 2.5-4.9 mg/dL Normal PHOS 3.9 LAB L501.5300 136-145 mmol/L Normal NA 141 LAB L501.5600 3.5-5.1 mmol/L Low K 3.4 LAB L501.5900 98-107 mmol/L Normal CL 100 LAB L501.6100 21.0-32.0 mmol/L Normal CO2 32.0 Performed By: #### L500.3600, L500.4100 #### [facility] [address] [place], [address] LIPID PROFILE Collected: 11/06/2017 Status: F Source: [place] 6:02 AM [facility] REPOSITORY Order Comment: RENAL,CBC,PTH FOR DR RODRIGUEZ LIPID,A1C,BMP FOR DR REESE TYPE CODE TESTS RESULT OUT OF RANGE REFERENCE UNITS LAB L501.4900 200 mg/dL Normal CHOL 97 Result Comment: <200 mg/dL Desirable 200-240 mg/dL Borderline >240 mg/dL High Risk LAB L501.5000 mg/dL Normal TRIG 121 Result Comment: The drugs N-Acetylcysteine and Metamizole may falsely depress this assay. Serum Triglycerides Reference Interval Normal <150 mg/dL Borderline high 150 - 199 mg/dL High 200 - 499 mg/dL Very High > or = 500 mg/dL LAB L501.6400 mg/dL Low HDL 37 Result Comment: The drugs N-Acetylcysteine and Metamizole may falsely depress this assay. Reference Range HDL <40 mg/dL Low HDL Cholesterol HDL >or= 60 mg/dL High HDL Cholesterol LAB L501.6500 0-130 mg/dL Normal LDL 36 LAB L501.6600 5-40 mg/dL Normal VLDL 24 Performed By: #### L500.3600, L500.4100 #### [facility] [address] [place], [place], [address] HEMOGLOBIN A1C Collected: 11/06/2017 Status: F Source: [place] 6:02 AM [facility] REPOSITORY Order Comment: RENAL,CBC,PTH FOR DR RODRIGUEZ LIPID,A1C,BMP FOR DR REESE TYPE CODE TESTS RESULT OUT OF RANGE REFERENCE UNITS LAB L501.9985 4.2-6.3 % Normal HGB A1C 6.3 Performed By: #### L501.9985 #### [facility] [address] [place], [place], [address] CBC-COMPLETE BLOOD CNT Collected: 11/06/2017 Status: F Source: EDU[place]O NO DIFF 6:02 [facility] REPOSITORY Order Comment: RENAL,CBC,PTH FOR DR RODRIGUEZ LIPID,A1C,BMP FOR DR REESE TYPE CODE TESTS RESULT OUT OF RANGE REFERENCE UNITS LAB L100.1000 4.4-11.0 K/mm3 Normal WBC 9.5 LAB L100.1200 4.6-6.2 M/mm3 Low RBC 3.36 LAB L100.1300 13.0-16.5 g/dl Low HGB 10.1 LAB L100.1400 40-54 % Low HCT 31.7 LAB L100.1500 80-94 fL High MCV 94.3 LAB L100.1600 27.0-32.0 pg Normal MCH 30.1 LAB L100.1700 32-36 g/gl Low MCHC 31.9 LAB L100.1810 11.6-14.6 % Normal RDW CV 14.4 LAB L100.1820 35.1-43.9 fl High RDW SD 46.8 LAB L100.1900 150-450 K/mm3 Normal PLT 235 LAB L100.2000 6.2-12.0 fl Normal MPV 9.9 Performed By: #### L100.0500 #### [facility] [address] [place], [place], [address] PTHIN Collected: 11/06/2017 Status: F Source: [place] 6:02 [facility] REPOSITORY Order Comment: RENAL,CBC,PTH FOR DR RODRIGUEZ LIPID,A1C,BMP FOR DR REESE TYPE CODE TESTS RESULT OUT OF RANGE REFERENCE UNITS LAB L509.1000 18.4-80.1 pg/mL High PTHIN 119.0 Result Comment: Please Note: PTH INTACT METHOD AND REFERENCE RANGE CHANGE Effective 06/26/2017. Performed By: #### L509.1000 #### [facility] [address] [place], [address] CONSULTATION Observed: 11/05/2017 Status: F Source: [place] 1:13 PM [facility] REPOSITORY [facility] Medical Records Department [address] [address] Consultation 11/01/17 1217 MR#: [id number] Acct: [id number] Name: RODRI GALE Rep #: [id number] : 1955 62 From: Abbie Rodriguez DO PCP: Brett Reese III, MD Status: DIS IN Y Location: [place] [address] Consultation - Renal 11/01/17 PCP/ Referring MD: Requesting physician: [] Primary care physician: Brett Reese Reason for Consultation:: RENAL FAILURE - History of Present Illness History of Present Illness: The patient is a 62 year old M with end stage renal failure from diabetes, seen in my office yesterday for follow up. He complained of lightheadedness, dizziness with low BP after his nifedipine was increased by cardiology in [place] for elevated BP. Nifedipine was 90mg daily. He was seen in Dr. Reese's office yesterday to schedule TDC placement as an outpt next week but his symptoms worsened needing a wheelchair and went to ER. He was found to be bradycardic with HR in the 40-50 in ER yesterday afternoon. He had an AVF placed with fistulogram 2 days ago to help improve maturation. He has chronic nausea, fatigue. He is on aranesp for anemia managed by DR. Srivastava. He has been referred to [facility] for kidney transplant evaluation and is scheduled for stress test. His is a potential live donor. Discussed with primary care service to initiate dialysis today after line placement and reduce labetalol dose for bradycardia. Arrangements initiated to continue chronic dialysis at [facility]. He will receive JILLIAN, iv iron, calcitriol on dialysis so can discontinue on discharge to home. - Allergies Allergies: Allergies metformin Allergy (Verified 10/31/17 14:40) Itching Sulfa (Sulfonamide Antibiotics) Allergy (Verified 10/31/17 14:40) Swelling - Current Medications Current Medications: Current Medications Hydrocodone Bitart/Acetaminophen ([place]rock 5mg-325mg) 1 tablet PO Q6H PRN PRN PRN Reason: PAIN Atorvastatin Calcium (Lipitor) 20 mg PO QHS [facility] Last Admin: 10/31/17 22:20 Dose: 20 mg Calcitriol (Rocaltrol) 0.5 mcg PO DAILY [facility] Calcium Acetate (Phoslo Gel Cap) 1,334 mg PO TIDCM [facility] Last Admin: 11/01/17 11:23 Dose: Not Given Dextrose (D50w Syringe) 0 gm IV X1 PRN; Protocol PRN Reason: Hypoglycemia Finasteride (Proscar) 5 mg PO DAILY [facility] Last Admin: 11/01/17 09:29 Dose: 5 mg Furosemide (Lasix) 40 mg PO BIDLX [facility] Last Admin: 10/31/17 18:24 Dose: 40 mg Glucagon () 1 mg IM .X1 PRN PRN Reason: Hypoglycemia Heparin Sodium (Porcine) () 5,000 units SC Q8 [facility] Last Admin: 11/01/17 06:09 Dose: Not Given Hydralazine HCl (Apresoline) 25 mg PO TID [facility] Last Admin: 11/01/17 05:51 Dose: 25 mg Hydralazine HCl (Apresoline Iv) 10 mg IV Q4H PRN PRN PRN Reason: SBP>180 Last Admin: 11/01/17 09:30 Dose: 10 mg Insulin Aspart (Novolog Flexpen (Bkc)) 0 units SC ACHS [facility] PRN Reason: Protocol Last Admin: 11/01/17 07:47 Dose: Not Given Insulin Aspart (Novolog Flexpen (Bkc)) 10 units SC TIDAC [facility] Last Admin: 11/01/17 11:23 Dose: Not Given Insulin Detemir (Levemir (Bkc)) 26 units SC DAILY [facility] Labetalol HCl (Trandate) 300 mg PO BID [facility] Last Admin: 11/01/17 09:30 Dose: 300 mg Losartan Potassium (Cozaar) 100 mg PO DAILY [facility] Last Admin: 11/01/17 09:28 Dose: 100 mg Magnesium Hydroxide (Milk Of Magnesia) 30 ml PO DAILY PRN PRN Reason: Constipation Nifedipine (Procardia Xl) 60 mg PO DAILY [facility] Last Admin: 11/01/17 09:28 Dose: 60 mg Polysaccharide Iron Complex ([facility]rex 150) [facility] Sodium Chloride () 5 - 30 ml IV UD PRN PRN Reason: SALINE FLUSH Last Admin: 11/01/17 06:29 Dose: 10 ml - Past Medical History Past Medical History (Chronic Problems): Chronic Problems (Last Reviewed 10/31/17 @ 14:38 by Ira Yusuf) Problem with dialysis access (Chronic) History of angioplasty of peripheral vessel (Chronic) Renal failure (Chronic) Essential hypertension (Chronic) Type II diabetes mellitus (Chronic) Hypercholesterolemia (Chronic) Anemia (Chronic) - Past Surgical History Surgical History: - - TURP, ORIF right radius/ulna, 09/11/17 L AV fistula, 10/30/17 LUE fistulagram w/ balloon angioplasty. - Social History Marital Status: Smoking Status: Former smoker Alcohol: Rare Drugs: None - Family History Maternal Family History: Family History (Last Reviewed 10/31/17 @ 14:38 by Ira Yusuf) Mother Diabetes Hypertension Heart disease Cancer Brother Diabetes Father Diabetes Cancer History Items: Cancer - Lung, Diabetes, Heart Disease, Hypertension Paternal Family History: Family History (Last Reviewed 10/31/17 @ 14:38 by Ira Yusuf) Mother Diabetes Hypertension Heart disease Cancer Brother Diabetes Father Diabetes Cancer History Items: Cancer - Pancreatic, Diabetes Review of Systems Constitutional: Reports: Anorexia, Chills, Weakness, Fatigue. Denies: Fever Eyes: Denies: Vision Change Cardiovascular: Reports: Edema, - - near syncope. Denies: Chest Pain Respiratory: Denies: Shortness of Breath Gastrointestinal: Reports: Nausea. Denies: Abdominal Pain, Vomiting Genitourinary: Denies: Dysuria Musculoskeletal: Reports: - - leg swelling Neurological: Reports: Balance problems, Tremor Psychiatric: Reports: Anxiety, Depression Hematologic/ Lymphatic: Reports: Anemia Patient Problems: Active and Suspected Problems (Last Reviewed 10/31/17 @ 14:38 by Ira Yusuf) Symptomatic bradycardia (Acute) Chronic anemia (Acute) Chronic kidney disease (Acute) - Physical Exam General: Alert, Oriented x3, Cooperative, No apparent distress Neck: Supple Lungs: Clear to auscultation Cardiovascular: Regular rate, Murmur, No rub noted Abdomen: Bowel Sounds Present, Soft, Non Tender, Non-Distended Extremities: Edema - chronic Skin: No rashes Musculoskeletal: No Muscle Wasting, - - AVF left forearm with thrill and bruit. Neurological: - - twitching intermittently Psych/Mental Status: Normal Affect, Alert and oriented to time, place, person, mood and affect Vital Signs Temp Pulse Resp BP Pulse Ox 98.2 F 64 14 175/72 H 95 11/01/17 11:45 11/01/17 11:45 11/01/17 11:45 11/01/17 11:45 11/01/17 11:45 Oxygen Delivery Method Room Air Weight: 104 kg Body Mass Index (BMI) 32.8 Intake and Output for Last 24 Hours Intake Total 580 / 580 Balance 580 / 580 Laboratory Tests Past 24 Hrs WBC 9.6 RBC 3.13 L Hgb 9.2 L WBC RBC Hgb POC Glucose POC Glucose 130 H 233 H Clinical Impression(s) from Imaging Studies Chest X-Ray 10/31/17 15:22 IMPRESSION: There are no acute findings. Electronically Signed: Corky Buckley MD at 16:53 EDT , Service support , Chest X-Ray 11/01/17 10:46 IMPRESSION: Central catheter placement. No pneumothorax. No focal infiltrate. Electronically Signed: Sarmad Hutton MD at 12:11 EDT , Service support , Assessment/Plan Active and Suspected Problems (Last Reviewed 10/31/17 @ 14:38 by Ira Yusuf) Symptomatic bradycardia (Acute) Chronic anemia (Acute) Chronic kidney disease (Acute) 1. ESRD HD today with TDC first tx and repeat tx tomorrow. OK to discharge to home after dialysis tomorrow if medically stable. Hep panel ordered yesterday 2. DM type 2 with low cpeptide, possible type 1. 3. AVF recent fistulogram, not ready for use. TDC catheter today. 4. Bradycardia, labetalol decreased 5. Resistent hypertension continue current regimen 6. LE edema chronic. Fluid removal on dialysis as tolerated 7. Iron def Anemia start iv iron, JILLIAN on dialysis. 8. dizziness, lightheadedness with hypotension improved. Spoke with pt and pt spouse at bedside, CM. Schedule for outpt dialysis TTS 12:10pm. 11/05/17 1313 <Electronically signed by Abbie Rodriguez DO> Date Abbie Rodriguez DO Cosigner Signature (if applicable): Date CC: Abbie Rodriguez DO; Brett Reese III, MD; Benjamín Reese MD Signed DISCHARGE INSTRUCTION Observed: 11/04/2017 Status: F Source: [place] 7:08 AM [facility] REPOSITORY [facility] Medical Records Department [address] [place] [address] Instructions for Home/Discharge Instructions 11/01/17 1044 MR#: [id number] Acct: [id number] Name: RODRI GALE Rep #: [id number] : 1955 62 From: Benjamín Reese MD PCP: Brett Reese III, MD Status: DIS IN Discharge Diet: Renal Diet Discharge Activity: Return to Normal Activity, May Not Shower Additional Activity Instructions:: Please keep your dialysis catheter site clean and dry. The dialysis center will assist with dressing changes Additional Dressing/Incision Instructions:: Leave the bandage on for 2-3 days. When you remove the bandage, leave the steri-strips intact until they fall off. Allergies/Adverse Reactions: Allergies metformin Allergy (Verified 10/31/17 14:40) Itching Sulfa (Sulfonamide Antibiotics) Allergy (Verified 10/31/17 14:40) Swelling Medications to take at Discharge Insulin Glargine [Lantus SoloStar Pen] 26 units SC DAILY 04/07/13 calcitriol 0.25 mcg capsule 0.5 mcg PO DAILY 07/10/17 finasteride 5 mg tablet 5 mg PO DAILY 07/10/17 furosemide 20 mg tablet 40 mg PO BID 07/10/17 labetalol 100 mg tablet 400 mg PO BID 07/10/17 losartan 50 mg tablet 100 mg PO DAILY 07/10/17 rosuvastatin 10 mg tablet 10 mg PO DAILY 07/10/17 Ergocalciferol [Vitamin D] 50,000 unit PO QMONTH 08/19/17 Insulin Lispro [Humalog] 10 - 12 unit SC BID 08/19/17 Iron Polysaccharide Complex [Ferrex 150] 150 mg PO DAILYCM 08/19/17 Nifedipine [Nifedipine ER] 60 mg PO DAILY 09/09/17 Calcium Acetate [Phoslo Gel Cap] 1,334 mg PO TIDCM 09/16/17 Primary Care Physician: Brett Reese III, MD [Primary Care Provider] - Please Follow Up With: Benjamín Reese MD - [phone] When: Please plan to follow up in 7 days in the office. 11/04/17 0708 <Electronically signed by Benjamín Reese MD> Date Benjamín Reese MD CC: Abbie Rodriguez DO; Brett Reese III, MD; Benjamín Reese MD DISCHARGE SUMMARY Observed: 11/03/2017 Status: F Source: [place] 7:41 AM [facility]POS[facility]ORY [facility] Medical Records Department [address] [place] [address] Discharge Summary 11/02/17 1113 MR#: [id number] Acct: [id number] Name: RODRI GALE Rep #: [id number] : 1955 62 From: Rosio Gamez NP-C PCP: Brett Reese III, MD Status: DIS IN Y Location: [place] [id number] ADDENDUM by Kelley Vail DO on 11/03/17 at 0741 Code Visit Inpatient E AND M: [id number] Disch Hosp 11/03/17 0741 <Electronically signed by Kelley Vail DO> Date Kelley Vail DO cc: DEANDRE Gamez; Brett Reese III, MD; Kelley Vail DO * Signed Discharge Date and Diagnosis Date of Admission: 10/31/17 Date of Discharge: 11/02/17 - Primary Discharge Diagnosis Active and Suspected Problems (Last Reviewed 10/31/17 @ 14:38 by Ira Yusuf) 1. Symptomatic hypotension/bradycardia-resolved. 2. End-stage renal disease 3. Hyperkalemia 4. Type 2 diabetes mellitus 5. Hypertension 6. Hyperlipidemia 7. Anemia of chronic disease 8. BPH status post TURP - Secondary Discharge Diagnosis Chronic Problems (Last Reviewed 10/31/17 @ 14:38 by Ira Yusuf) Problem with dialysis access (Chronic) History of angioplasty of peripheral vessel (Chronic) Renal failure (Chronic) Essential hypertension (Chronic) Type II diabetes mellitus (Chronic) Hypercholesterolemia (Chronic) Anemia (Chronic) Hospital Course and Treatment Imaging Results: Diagnostic Data Chest X-Ray 11/01/17 10:46 IMPRESSION: Central catheter placement. No pneumothorax. No focal infiltrate. Electronically Signed: Sarmad Hutton MD at 12:11 EDT , Service support , Dr. Rodriguez- Nephrology Dr. Reese- Surgery Operations: None Procedures: None Summary of Care Provided: Patient is a 62-year-old male admitted 10/31/17 due to hypotension, bradycardia, dizziness, weakness. Patient's chronic medical history includes ESRD, hypertension, hyperlipidemia, type 2 diabetes mellitus, anemia of chronic disease, BPH status post TURP. 1. Symptomatic hypotension/bradycardia-Resolved. Suspect secondary to medication regimen. Blood pressure now stable. Home labetalol regimen decreased to 300 mg twice daily. Patient denies further symptoms. 2. ESRD- Follows with Dr. Rodriguez who was consulted. 09/11/17 L AV fistula, 10/30/17 LUE fistulagram w/ balloon angioplasty, both with Dr. Reese. Dr. Reese consulted who placed right internal jugular tunneled dialysis catheter 11/01/17. Continue home calcitriol and calcium acetate regimen. Patient had 2 dialysis sessions with temporary dialysis catheter during admission with next session scheduled as outpatient on 11/05/2017. Patient will follow up with Dr. Reese in office in 1 week. 3. Hyperkalemia-resolved. Secondary to #2. 4. Type 2 diabetes mellitus-hemoglobin A1c 11/01/2017 6.2%. Continue home insulin regimen. 5. Hypertension-expect improvement with continued dialysis. Continue home regimen of losartan, nifedipine and Lasix. Labetalol regimen decreased to 300 mg twice daily which patient will continue at discharge. 6. Hyperlipidemia-continue statin. 7. Anemia of chronic disease-stable. Baseline hemoglobin 8-9. Continue iron supplementation. 8. BPH status post TURP-continue finasteride regimen. General: Alert, Oriented x3, Cooperative HEENT: Atraumatic, PERRLA, EOMI, Normocephalic Neck: Supple, No JVD, Negative Carotid Bruits Lungs: Clear to auscultation, Diminished Cardiovascular: Regular rate, Regular Rhythm, Normal S1, Normal S2, No murmurs Abdomen: Bowel Sounds Present, Soft, Non Tender, Non-Distended, Obese Extremities: No clubbing, No cyanosis, Edema - Nonpitting bilateral lower extremities, - - Left forearm AV fistula Skin: No rashes, No breakdown, - - Left forearm incisions with sutures intact. No drainage or redness noted. Musculoskeletal: No Tenderness to Palpation of Joints or Extremities Neurological: Cranial nerves II-XII grossly intact, Neuro grossly intact Psych/Mental Status: Normal Affect, Appropriate Patient seen and examined prior to discharge. Physical assessment as noted above. Patient is stable for discharge home with further follow-up as noted above. This patient was seen by DEANDRE Chávez under the supervision of Dr. Vail. Discharge Diet: Renal Diet Discharge Activity: Return to Normal Activity, May Not Shower Additional Activity Instructions:: Please keep your dialysis catheter site clean and dry. The dialysis center will assist with dressing changes Call your doctor if you observe: Shortness of breath, Dizziness, Fainting spells, Chest pain Additional Dressing/Incision Instructions:: Leave the bandage on for 2-3 days. When you remove the bandage, leave the steri-strips intact until they fall off. Home Medications: Medications to take at Discharge Insulin Glargine [Lantus SoloStar Pen] 26 units SC DAILY 04/07/13 calcitriol 0.25 mcg capsule 0.5 mcg PO DAILY 07/10/17 finasteride 5 mg tablet 5 mg PO DAILY 07/10/17 furosemide 20 mg tablet 40 mg PO BID 07/10/17 losartan 50 mg tablet 100 mg PO DAILY 07/10/17 rosuvastatin 10 mg tablet 10 mg PO DAILY 07/10/17 Ergocalciferol [Vitamin D] 50,000 unit PO QMONTH 08/19/17 Insulin Lispro [Humalog] 10 - 12 unit SC BID 08/19/17 Iron Polysaccharide Complex [Ferrex 150] 150 mg PO DAILYCM 08/19/17 Nifedipine [Nifedipine ER] 60 mg PO DAILY 09/09/17 Calcium Acetate [Phoslo Gel Cap] 1,334 mg PO TIDCM 09/16/17 Folic Acid/Vitamin B Comp W-C [Nephrocaps, Renaphro] 1 cap PO DAILY #30 cap 11/02/17 Labetalol [Trandate (Beta Reuben)] 300 mg PO BID tablet 11/02/17 Following Prescrptions Were Given to Patient: Folic Acid/Vitamin B Comp W-C [Nephrocaps, Renaphro] 1 cap PO DAILY #30 cap Primary Care Physician: Brett Reese III, MD [Primary Care Provider] - Please follow up with your Primary Care Physician in: 1 Week Please Follow Up With: Benjamín Reese MD - [phone] When: Please plan to follow up in 7 days in the office. Please Follow Up With: Abbie Rodriguez DO When: Dialysis Saturday, follow-up as scheduled Please Follow Up With: [facility] When: Saturday Disposition: Home Minutes spent on discharge:: 35 Patient Condition:: Stable Medical Necessity - Tobacco Use Smoking Status: Former smoker Tobacco Use: Cigarettes Meaningful Use Info Meaningful Use Diagnoses (Choose all that apply): None applicable 11/02/17 1121 <Electronically signed by Rosio VELIZC> Date Rosio CARRERA 11/03/17 0740<Electronically signed by Kelley Vail DO> Cosigner Signature (if applicable): Date Kelley Vail DO CC: KERENC Rosio aGmez; Brett Reese III, MD; Kelley Vail DO Signed BEDSIDE GLUCOSE Collected: 11/02/2017 Status: F Source: [place] 11:50 AM [facility] REPOSITORY TYPE CODE TESTS RESULT OUT OF REFERENCE UNITS RANGE LAB L501.080 70-110 mg/dL High BEDSIDE GLU 156 Result Comment: MANAGEMENT OF PATIENT CARE PER NURSING PROTOCOL Performed By: #### L501.080 #### [facility] Point of Care [address] [place] [address] DISCHARGE INSTRUCTION Observed: 11/02/2017 Status: F Source: [place] 11:13 AM [facility] REPOSITORY [facility] Medical Records Department [address] [place] [address] Instructions for Home/Discharge Instructions 11/02/17 1108 MR#: [id number] Acct: [id number] Name: RODRI GALE Rep #: [id number] : 1955 62 From: Rosio CARRERA PCP: Brett Reese III, MD Status: ADM IN - Discharge Diagnoses Current Active Problems: Current Active and Chronic Problems (Last Reviewed 10/31/17 @ 14:38 by Ira Yusuf) Symptomatic bradycardia (Acute) Chronic anemia (Acute) Chronic kidney disease (Acute) You will use the following diet at home:: Renal (restricted protein/sodium) Discharge Activity: Return to Normal Activity, May Not Shower Additional Activity Instructions:: Please keep your dialysis catheter site clean and dry. The dialysis center will assist with dressing changes Call your doctor if you observe: Shortness of breath, Dizziness, Fainting spells, Chest pain Additional Dressing/Incision Instructions:: Leave the bandage on for 2-3 days. When you remove the bandage, leave the steri-strips intact until they fall off. Allergies/Adverse Reactions: Allergies metformin Allergy (Verified 10/31/17 14:40) Itching Sulfa (Sulfonamide Antibiotics) Allergy (Verified 10/31/17 14:40) Swelling Medications to take at Discharge Insulin Glargine [Lantus SoloStar Pen] 26 units SC DAILY 04/07/13 calcitriol 0.25 mcg capsule 0.5 mcg PO DAILY 07/10/17 finasteride 5 mg tablet 5 mg PO DAILY 07/10/17 furosemide 20 mg tablet 40 mg PO BID 07/10/17 losartan 50 mg tablet 100 mg PO DAILY 07/10/17 rosuvastatin 10 mg tablet 10 mg PO DAILY 07/10/17 Ergocalciferol [Vitamin D] 50,000 unit PO QMONTH 08/19/17 Insulin Lispro [Humalog] 10 - 12 unit SC BID 08/19/17 Iron Polysaccharide Complex [Ferrex 150] 150 mg PO DAILYCM 08/19/17 Nifedipine [Nifedipine ER] 60 mg PO DAILY 09/09/17 Calcium Acetate [Phoslo Gel Cap] 1,334 mg PO TIDCM 09/16/17 Folic Acid/Vitamin B Comp W-C [Nephrocaps, Renaphro] 1 cap PO DAILY #30 cap 11/02/17 Labetalol [Trandate (Beta Reuben)] 300 mg PO BID tablet 11/02/17 The following prescriptions were given: Folic Acid/Vitamin B Comp W-C [Nephrocaps, Renaphro] 1 cap PO DAILY #30 cap Primary Care Physician: Brett Reese III, MD [Primary Care Provider] - Please follow up with your Primary Care Physician in: 1 Week Please Follow Up With: Benjamín Reese MD - [phone] When: Please plan to follow up in 7 days in the office. Please Follow Up With: Abbie Rodriguez DO When: Dialysis Saturday, follow-up as scheduled Proposed Discharge Date: 11/02/17 11/02/17 1113 <Electronically signed by Rosio CARRERA> Date Rosio CARRERA CC: Abbie Rodriguez DO; Brett Reese III, MD; Benjamín Reese MD BEDSIDE GLUCOSE Collected: 11/02/2017 Status: F Source: [place] 6:49 AM [facility] REPOSITORY TYPE CODE TESTS RESULT OUT OF RANGE REFERENCE UNITS LAB L501.080 70-110 mg/dL Normal BEDSIDE GLU 94 Result Comment: MANAGEMENT OF PATIENT CARE PER NURSING PROTOCOL Performed By: #### L501.080 #### [facility] Point of Care [address] [place] [address] CBC-COMPLETE BLOOD CNT Collected: 11/02/2017 Status: F Source: [place] NO DIFF 5:24 AM [facility] REPOSITORY TYPE CODE TESTS RESULT OUT OF RANGE REFERENCE UNITS LAB L100.1000 4.4-11.0 K/mm3 Normal WBC 8.6 LAB L100.1200 4.6-6.2 M/mm3 Low RBC 3.21 LAB L100.1300 13.0-16.5 g/dl Low HGB 9.4 LAB L100.1400 40-54 % Low HCT 29.6 LAB L100.1500 80-94 fL Normal MCV 92.2 LAB L100.1600 27.0-32.0 pg Normal MCH 29.3 LAB L100.1700 32-36 g/gl Low MCHC 31.8 LAB L100.1810 11.6-14.6 % Normal RDW CV 14.0 LAB L100.1820 35.1-43.9 fl High RDW SD 45.5 LAB L100.1900 150-450 K/mm3 Normal PLT 215 LAB L100.2000 6.2-12.0 fl Normal MPV 9.0 Performed By: #### L100.0500 #### [facility] [address] [place], [place], [address] BASIC METABOLIC Collected: 11/02/2017 Status: F Source: [place] PROFILE (BMP) 5:24 AM [facility] REPOSITORY TYPE CODE TESTS RESULT OUT OF RANGE REFERENCE UNITS LAB L501.0100 74-106 mg/dL Normal GLU 94 Result Comment: Please note revised GLUCOSE reference range effective 2017. LAB L501.1000 7-18 mg/dL High BUN 70 LAB L501.1100 0.70-1.30 mg/dL High CREAT,SERUM 7.27 Result Comment: The validity of the calculated GFR AND GFRAA in patients over 70 years has not been determined. Clinical correlation is essential. LAB L501.1110 >60 mL/min Low EST GFR 8 Result Comment: Non- GFR Calc LAB L501.1115 >60 mL/min Low EST GFR - AA 10 Result Comment: GFR Calc LAB L501.1255 ml/min Normal Estimated CRCL 10.88 LAB L501.1300 10-20 RATIO Low BUN/CRE 9.6 LAB L501.2200 8.5-10 mg/dL Low .1 CA 8.1 LAB L501.5300 136-14 mmol/L Normal 5 NA 141 LAB L501.5600 3.5-5. mmol/L Normal 1 K 4.1 LAB L501.5900 98-107 mmol/L Normal CL 104 LAB L501.6100 21.0-3 mmol/L Normal 2.0 CO2 28.0 LAB L501.6200 5-15 Normal GAP 9 Performed By: #### L500.2500 #### [facility] [address] [facility] [address] BEDSIDE GLUCOSE Collected: 11/01/2017 Status: F Source: [place] 10:59 PM [facility] REPOSITORY TYPE CODE TESTS RESULT OUT OF RANGE REFERENCE UNITS LAB L501.080 70-110 mg/dL Normal BEDSIDE GLU 101 Result Comment: MANAGEMENT OF PATIENT CARE PER NURSING PROTOCOL Performed By: #### L501.080 #### [facility] Point of Care [address] [place] [address] BEDSIDE GLUCOSE Collected: 11/01/2017 Status: F Source: [place] 4:29 PM [facility] REPOSITORY TYPE CODE TESTS RESULT OUT OF RANGE REFERENCE UNITS LAB L501.080 70-110 mg/dL Normal BEDSIDE GLU 99 Result Comment: MANAGEMENT OF PATIENT CARE PER NURSING PROTOCOL Performed By: #### L501.080 #### [facility] Point of Care [address] [place] [address] BEDSIDE GLUCOSE Collected: 11/01/2017 Status: F Source: [place] 12:23 PM [facility] REPOSITORY TYPE CODE TESTS RESULT OUT OF RANGE REFERENCE UNITS LAB L501.080 70-110 mg/dL Normal BEDSIDE GLU 107 Result Comment: MANAGEMENT OF PATIENT CARE PER NURSING PROTOCOL Performed By: #### L501.080 #### [facility] Point of Care [address] [place] [address] OPERATIVE REPORT Observed: 11/01/2017 Status: F Source: [place] 11:27 AM [facility] REPOSITORY [facility] Medical Records Department [address] [place] [address] Operative Report 11/01/17 1124 MR#: [id number] Acct: [id number] Name: RODRI GALE Rep #: [id number] : 1955 62 From: Benjamín Reese MD PCP: Brett Reese III, MD Status: ADM IN Y Location: [place] [address] Problem List (1) Chronic kidney disease Status: Acute Qualifiers: Chronic kidney disease stage: stage 5, not on chronic dialysis Qualified Code(s): N18.5 - Chronic kidney disease, stage 5 Report of Operation Date of Procedure: 11/01/17 Pre-Operative Diagnosis: Stage V chronic renal failure in need of urgent hemodialysis Post-Operative Diagnosis: Same Surgery/Procedure Performed:: Right internal jugular tunneled dialysis catheter placement Description of Surgical Findings:: Timeout and informed consent was obtained. 62-year-old gentleman was taken to the operating. He was placed on the table. The right neck and chest were sterilely prepped and draped. Ancef 2 g were given intravenously preoperatively. He underwent monitored anesthesia care. Under ultrasound guidance 1% lidocaine mixed 50-50 with 0.5% Marcaine was used as a local anesthetic. Throughout the procedure total 20 cc was used. Local was instilled. Micropuncture needle was inserted. Micropuncture wire inserted. Local was instilled down upon the chest wall. Small incision was created. The 19 cm pre-curved palindrome catheter was tunneled from the chest to the neck site. Fluoroscopy demonstrated good positioning the micropuncture wire. Micropuncture sheath was placed. No 3 5 J-wire was placed. Serial dilatation was performed. The sheath dilator was inserted. The dilator and wire were removed. The catheter was advanced through the sheath. The sheath was split and the catheter was positioned. Fluoroscopy demonstrated good positioning. The neck site was closed with interrupted 5-0 Vicryl subdermal stitch. The catheter was secured to the skin with interrupted 3-0 nylon. Telfa and OpSite dressing was applied to the neck. Silver impregnated dressing was applied at the exit site. Sponge instrument and needle counts were reported to the surgeon to be correct. Blood loss was minimal. No apparent complication. Specimens none. Drains none. Blood loss minimal. Stat portable chest x-ray is pending in the recovery area. Benjamín Reese M.D., F.A.C.S. Type of Anesthesia:: MAC Anesthesiologist: Alfa Ribera 11/01/17 1127 <Electronically signed by Benjamín Reese MD> Date Benjamín Reese MD CC: Abbie Rodriguez DO; Brett Reese III, MD; Benjamín Reese MD Signed CHEST 1 VIEW Observed: 11/01/2017 Status: F Source: [place] (PORTABLE) 10:46 AM [facility] REPOSITORY [facility] Imaging Services [address] [place] [address] Chest 1 View (Portable) MR#: [id number] Acct: [id number] Name: RODRI GALE Rep #: [id number] : 1955 62 From: Sarmad Hutton MD PCP: Brett Reese III, MD Status: ADM IN Study: Chest 1 View (Portable) Date of Exam: 11/01/17 Exam# [id number] Ordering Dr: Benjamín Reese MD STUDY: X-RAY CHEST REASON FOR EXAM: Male, 62 years old. Line placement. TECHNIQUE: Single AP portable view of the chest. COMPARISON: October 31, 2017 FINDINGS: Central catheter on the right extending to the mid superior vena cava. The lungs are clear and expanded. There is no demonstrated pleural abnormality. Normal size heart. Normal mediastinum and nader. Normal visualized pulmonary arteries. Normal visualized aortic arch and descending thoracic aorta. Normal visualized thoracic spine. Normal visualized ribs, clavicles, and shoulders. There is no demonstrated abnormality of the visualized soft tissue structures of the upper abdomen. RAD/Chest 1 View (Portable) IMPRESSION: Central catheter placement. No pneumothorax. No focal infiltrate. Electronically Signed: Sarmad Hutton MD at 12:11 EDT , Service support , CC: Brett Reese III, MD; Benjamín Reese MD Talent Buyer: Signed BEDSIDE GLUCOSE Collected: 11/01/2017 Status: F Source: [place] 6:50 AM [facility] REPOSITORY TYPE CODE TESTS RESULT OUT OF REFERENCE UNITS RANGE LAB L501.080 70-110 mg/dL High BEDSIDE GLU 130 Result Comment: MANAGEMENT OF PATIENT CARE PER NURSING PROTOCOL Performed By: #### L501.080 #### [facility] Point [place] [address] CBC W/DIFF, AUTOMATED Collected: 11/01/2017 Status: F Source: [place] 5:10 AM [facility] REPOSITORY TYPE CODE TESTS RESULT OUT OF RANGE REFERENCE UNITS LAB L100.1000 4.4-11.0 K/mm3 Normal WBC 9.6 LAB L100.1200 4.6-6.2 M/mm3 Low RBC 3.13 LAB L100.1300 13.0-16.5 g/dl Low HGB 9.2 LAB L100.1400 40-54 % Low HCT 28.7 LAB L100.1500 80-94 fL Normal MCV 91.7 LAB L100.1600 27.0-32.0 pg Normal MCH 29.4 LAB L100.1700 32-36 g/gl Normal MCHC 32.1 LAB L100.1810 11.6-14.6 % Normal RDW CV 13.9 LAB L100.1820 35.1-43.9 fl High RDW SD 45.0 LAB L100.1900 150-450 K/mm3 Normal PLT 235 LAB L100.2000 6.2-12.0 fl Normal MPV 9.4 LAB L100.2100 47-70 % High NEUT% 76.3 LAB L100.2200 19-41 % Low LY% 12.4 LAB L100.2300 0-10 % Normal MONO% 8.7 LAB L100.2400 0-5 % Normal EO% 2.4 LAB L100.2500 0-1 % Normal BASO% 0.2 LAB L100.2550 0.0-0.9 % Normal IM GRAN % 0.000 Result Comment: IG% - Immature Granulocytes (promyelocytes, myelocytes and metamyelocytes) > 1% indicates that a LEFT SHIFT is Present. LAB L100.2620 2.0-7.7 X10 3/uL Normal Absolute Neut 7.3 LAB L100.2720 0.83-4.51 X10 3/ul Normal Absolute Lymph 1.19 Performed By: #### L100.0100 #### [facility] Laboratory [address] [place], [address] PROTHROMBIN TIME W/INR Collected: 11/01/2017 Status: F Source: [place] 5:10 AM [facility] REPOSITORY TYPE CODE TESTS RESULT OUT OF RANGE REFERENCE UNITS LAB L300.4150 11.7-14.9 SECONDS High PROTIME 16.2 LAB L300.4200 Normal INR 1.3 Performed By: #### L300.3900, L300.4310 #### [facility] [address] [facility] [address] PARTIAL THROMBOPLAST Collected: 11/01/2017 Status: F Source: [place] TIME 5:10 AM [facility] REPOSITORY TYPE CODE TESTS RESULT OUT OF REFERENCE UNITS RANGE LAB L300.4310 24.1-36.2 Seconds High PTT 37.9 Performed By: #### L300.3900, L300.4310 #### [facility] [address] [place], [address] BASIC METABOLIC Collected: 11/01/2017 Status: F Source: [place] PROFILE (BMP) 5:10 AM [facility] REPOSITORY TYPE CODE TESTS RESULT OUT OF RANGE REFERENCE UNITS LAB L501.0100 74-106 mg/dL High GLU 116 Result Comment: Fasting Glucose result from 100 to 125 mg/dL suggests IMPAIRED HOMEOSTASIS per A.D.A. criteria. Please note revised GLUCOSE reference range effective 2017. LAB L501.1000 7-18 mg/dL High alert BUN 101 Result Comment: Critical Result(s) Called at: 05:49:51 11/01/2017 by: SABRINA Gomez LAB L501.1100 0.70-1.30 mg/dL CREAT,SERUM High alert 9.46 Result Comment: Critical Result(s) Called at: 05:49:51 11/01/2017 by: SABRINA Gomez The validity of the calculated GFR AND GFRAA in patients over 70 years has not been determined. Clinical correlation is essential. LAB L501.1110 >60 mL/min Low EST GFR 6 Result Comment: Non- GFR Calc LAB L501.1115 >60 mL/min Low EST GFR - AA 7 Result Comment: GFR Calc LAB L501.1255 ml/min Normal Estimated CRCL 8.36 LAB L501.1300 10-20 RATIO Normal BUN/CRE 10.7 LAB L501.2200 8.5-10. mg/dL Normal 1 CA 9.2 LAB L501.5300 136-145 mmol/L Normal NA 144 LAB L501.5600 3.5-5.1 mmol/L Normal K 4.2 LAB L501.5900 98-107 mmol/L High CL 108 LAB L501.6100 21.0-32 mmol/L Normal .0 CO2 26.0 LAB L501.6200 5-15 Normal GAP 10 Performed By: #### L500.2500 #### [facility] [address] [place], [place], [id number] TYPE AND SCREEN Collected: 11/01/2017 Status: F Source: [place] 5:10 AM [facility] REPOSITORY Order Comment: Reason for Type AND Screen/Red Cells: SURGERY TYPE CODE TESTS RESULT OUT OF RANGE REFERENCE UNITS LAB B10.0800 A Normal BLOOD TYPE GEL POSITIVE LAB B100.4000 Normal Antibody NEGATIVE Screen Performed By: #### B101.7450 #### [facility] [address] [place], [place], [id number] HEMOGLOBIN A1C Collected: 11/01/2017 Status: F Source: [place] 5:10 AM [facility] REPOSITORY TYPE CODE TESTS RESULT OUT OF RANGE REFERENCE UNITS LAB L501.9985 4.2-6.3 % Normal HGB A1C 6.2 Performed By: #### L501.9985 #### [facility] [address] [place], [address] EMERGENCY DEPARTMENT Observed: 11/01/2017 Status: F Source: [place] SUMMARY 12:19 AM [facility] REPOSITORY [facility] Medical Records Department [address] [place] [address] Emergency Department Summary 10/31/17 1525 MR#: [id number] Acct: [id number] Name: RODRI GALE Rep #: [id number] : 1955 62 From: Dave Castro PCP: Brett Reese III, MD Status: ADM IN - ER Visit Summary Date of Service: 10/31/17 Chief Complaint: Low blood pressure History of Present Illness: The patient is a 62 M sent as an outpatient from both nephrology and PCP office for low blood pressure. Patient history of chronic kidney disease, and preparations for dialysis. History of diabetes and hypertension, anemia, chronic kidney disease. Fistula left arm placed September 11. Yesterday had a balloon placed by Dr. Reese. Patient states had a referral seen by cardiology, Dr. Nation at 8 days ago for planned clearance for eventual renal transplant. States his blood pressure was systolic 170s. Had his nifedipine increased from 60-90 mg a week ago. Last dose taken this morning. While at the office, blood pressures in the 90s. They did state heart rate was low but unclear what the number was. He complains of lightheaded symptoms. No syncopal episodes. No chest pains. Complains of mild dyspnea. No recent vomiting or diarrhea. Denies any dizzy sensations. Normal urine output per patient. Physical Examination: General: Alert and oriented 3, no acute distress HEENT: Normocephalic, atraumatic. Moist mucosa membranes. Mild pale conjunctiva Neck: supple, nontender. Cardiovascular: Regular bradycardic rate and rhythm, no murmurs Respiratory: Normal breath sounds, symmetric, no distress Abdomen: Soft, nontender, nondistended Extremities: Nontender, 1+ symmetric lower extremity edema, pulses intact 4 Neuro: no focal neurological deficits. Test Results: EKG: Sinus rate of 39, no ST changes. T-wave flattening at 3 and aVF. No AV blocks noted. Hemoglobin 9.3. Creatinine 9.39, BUN 104. Hemolyzed potassium 5.6, recheck 5.2. Chest x-ray negative. Emergency Department Course and Treatment: Patient with sinus bradycardia on EKG. Recently placed on the monitor, no interventions, steady increase in heart rate and blood pressure increase on his nifedipine which is renally excreted. Also on labetalol.. Concerns for likely nifedipine. Chronic anemia along with chronic elevation of creatinine and BUN. Symptomatic bradycardia, I do feel the benefit from admission and monitoring. I did speak with his senior internal auditor, Dr. Rodriguez, updated, she is more concerned of possible labetalol. She did request I speak with Dr. Reese, the surgeon if you be available to place a Vas-Cath for dialysis with his history and plans. I did speak with him, he will like patient n.p.o. at midnight, he will check surgery scheduled tomorrow for placement if able. This was relayed to hospitalist, Dr. Vail who will evaluate for admission. Treatment Plan: [] Disposition: Admission Impression: 1. Symptomatic bradycardia 2. Chronic anemia 3. Chronic kidney disease This note was generated with [employer] dictation software. It may contain incorrect words, spelling, and punctuation that were not noted in review of the chart prior to signing ED Disposition - Plan for ED Patient: Disposition: Acute Care Hospital [facility] Chief Complaint: Hypotension Diagnosis: Symptomatic bradycardia, Chronic anemia, Chronic kidney disease What to do if you have Problems For any increased pain, shortness of breath, bleeding, nausea or vomiting, chest pain, or any unexpected problems, contact your Primary Care Provider. Call [facility] ([phone]) or report to the closest Emergency Room. Call 911 if necessary. 11/01/17 0019 <Electronically signed by Dave Castro> Date Dave Castro Cosigner Signature (If Indicated): Date CC: Brett Reese III, MD BEDSIDE GLUCOSE Collected: 10/31/2017 Status: F Source: [place] 10:17 PM [facility] REPOSITORY TYPE CODE TESTS RESULT OUT OF REFERENCE UNITS RANGE LAB L501.080 70-110 mg/dL High BEDSIDE GLU 233 Result Comment: MANAGEMENT OF PATIENT CARE PER NURSING PROTOCOL Performed By: #### L501.080 #### [facility] Point of Care [address] [place] [address] HISTORY AND PHYSICAL Observed: 10/31/2017 Status: F Source: [place] EXAM 8:08 PM [facility] REPOSITORY [facility] Medical Records Department [address] [place] [address] History and Physical 10/31/17 1720 MR#: [id number] Acct: [id number] Name: RODRI GALE Rep #: [id number] : 1955 62 From: Rosio Gamez COLLATERAL CLERKFidelinaC PCP: Brett Reese III, MD Status: ADM IN Y Location: [place] [address] ADDENDUM by Kelley Vail DO on 10/31/17 at 2006 Code Visit Patient was seen and examined independently today of Rosio Gamez, he was sent to the emergency room for evaluation of low blood pressure, patient was found to be bradycardic with a systolic blood pressure in the upper 90s. Patient has a history of chronic kidney disease and a fistula was recently put on the patient but he will not be ready for dialysis for several weeks. Patient had a creatinine drawn last week, the creatinine today in the emergency room was not much different than the one last week. While in the ER, patient was observed and his heart rate initially was in the 30s, after a time it corrected and went into the 50s with recovery of his blood pressure from a systolic of 97 to a systolic of 147. General surgery Dr. Billy Reese) was contacted by the emergency room physician regarding placement of a tunneled dialysis catheter possibly tomorrow, it could not be determined whether this could be arranged but it was felt that the patient should be admitted for his hypotension and bradycardia and perhaps the tunneled dialysis catheter could be placed either tomorrow or Saturday. I contacted nephrology went over this plan with them and they were okay with it, they suggested that the patient's Trandate be reduced because of his bradycardia. Patient was admitted for hypotension, bradycardia, and renal failure. Patient was slightly hyperkalemic, labs will be rechecked tomorrow. On examination, patient was alert, he was in no acute distress, heart rate and rhythm was regular with occasional PVCs noted on the monitor, heart rate was 58, systolic blood pressure was 147. I have reviewed Rosio Gamez's history and physical and medical plan of care and endorse both Inpatient E AND M: 80992 Init Hosp L3 10/31/172007 <Electronically signed by Kelley Vail DO> Date Kelley Vail DO cc: COLLATERAL CLERK-C Rosio Gamez; Brett Reese III, MD; Kelley Vail DO * Signed Problem List (1) Problem with dialysis access Status: Chronic Qualifiers: (2) Screening for intestinal cancer Status: Resolved (3) History of angioplasty of peripheral vessel Status: Chronic (4) Renal failure Status: Chronic Qualifiers: Chronic kidney disease stage: stage 4 (severe) (5) Essential hypertension Status: Chronic (6) Type II diabetes mellitus Status: Chronic (7) Hypercholesterolemia Status: Chronic (8) Anemia Status: Chronic Qualifiers: Anemia type: due to chronic kidney disease (9) Open fracture at right wrist or hand level Status: Resolved History of Present Illness Date of Admission: 10/31/17 Chief Complaint: Hypotension, bradycardia, dizziness, weakness. The patient is a 62 year old M who presents to the emergency room due to low blood pressure which was noted during office visit today with patient's senior internal auditor, Dr. Rodriguez. Patient states he has not felt well today and complains of dizziness, lightheadedness, generalized weakness. Patient has chronic kidney disease stage IV and is currently undergoing evaluation for renal transplant. Patient had a left forearm AV fistula placed 09/11/[address] Reese. He then had left upper extremity fistulogram with balloon angioplasty again, with Dr. Reese 10/30/17. Patient states his blood pressure is usually elevated and his nifedipine was increased approximately a week ago from 60-90 mg. A roll machine operator, Dr. Nation at made this adjustment who patient is seeing for pre-transplant evaluation/clearance. His blood pressure during office visit today was noted to be in the 90s systolically. Patient's other chronic medical history includes hypertension, hyperlipidemia, type 2 diabetes mellitus, anemia of chronic disease, BPH status post TURP. Past Medical History Past Medical History (Chronic Problems): Chronic Problems (Last Reviewed 10/31/17 @ 14:38 by Ira Yusuf) Problem with dialysis access (Chronic) History of angioplasty of peripheral vessel (Chronic) Renal failure (Chronic) Essential hypertension (Chronic) Type II diabetes mellitus (Chronic) Hypercholesterolemia (Chronic) Anemia (Chronic) Allergies metformin Allergy (Verified 10/31/17 14:40) Itching Sulfa (Sulfonamide Antibiotics) Allergy (Verified 10/31/17 14:40) Swelling Home Medications: Ambulatory Orders Medication Instructions Recorded Insulin Glargine [Lantus SoloStar 26 units SC DAILY 04/07/13 Pen] calcitriol 0.25 mcg capsule 0.5 mcg PO DAILY 07/10/17 Surgical History: - - TURP, ORIF right radius/ulna, 09/11/17 L AV fistula, 10/30/17 LUE fistulagram w/ balloon angioplasty. Psychiatric History: No pertinent psych hx Lives: Spouse/ Significant Other Smoking Status: Never smoker Alcohol: Rare Drugs: None - *Family History Maternal History Items: Cancer - Lung, Diabetes, Heart Disease, Hypertension Paternal History Items: Cancer - Pancreatic, Diabetes Review of Systems Constitutional: Reports: Fatigue. Denies: Chills, Fever, Weight Change HEENT: Denies: Head Aches, Sinus Congestion, Sinus Drainage Cardiovascular: Reports: Edema - BLLE, Light Headedness. Denies: Chest Pain, Palpitations, Syncope Respiratory: Denies: Cough, Shortness of breath at rest, Sputum production Gastrointestinal: Denies: Abdominal Pain, Nausea, Vomiting Genitourinary: Denies: Dysuria Musculoskeletal: Denies: Joint Pain, Joint Tenderness Skin: Denies: Rash, Wounds Neurological: Denies: Numbness, Tingling, Focal weakness Psychiatric: Denies: Anxiety, Depression, Homicidal Ideations, Suicidal Ideations Hematologic/ Lymphatic: Denies: Easy Bruising, Easy Bleeding VTE Information - Inpt Only VTE Present on Admission: No VTE Mechan Device Prophylaxis: None VTE Pharm Prophylaxis ordered?: Yes - Physical Exam General: Alert, Oriented x3, Cooperative, No apparent distress HEENT: Atraumatic, PERRLA, EOMI, Normocephalic Neck: Supple, No JVD, Negative Carotid Bruits Lungs: Clear to auscultation, Diminished Cardiovascular: Regular Rhythm, Normal S1, Normal S2, No murmurs, Bradycardic Abdomen: Bowel Sounds Present, Soft, Non Tender, Non-Distended, Obese Extremities: No clubbing, No cyanosis, Capillary Refill Less than 3 Seconds, Edema - +2 bilateral lower extremities, - - Left forearm AV fistula. Skin: No rashes, No breakdown, - - Left forearm incision with sutures intact. No drainage or redness noted. Musculoskeletal: No Tenderness to Palpation of Joints or Extremities Neurological: Cranial nerves II-XII grossly intact, Neuro grossly intact Psych/Mental Status: Normal Affect, Appropriate Vital Signs Temp Pulse Resp BP Pulse Ox 97.2 F L 53 L 16 143/67 H 97 10/31/17 15:06 10/31/17 17:10 10/31/17 17:10 10/31/17 17:10 10/31/17 17:10 Oxygen Delivery Method Room Air Weight: 102.058 kg Body Mass Index (BMI) 0.2 Finger Stick Blood Glucose 141 Laboratory Tests Past 24 Hrs WBC 8.9 RBC 3.16 L Hgb 9.3 L Hct 30.3 L MCV 95.9 H Assessment/Plan 1. Symptomatic hypotension/bradycardia-suspect secondary to medication regimen. Blood pressure 97/45 on admission. Improved to 149/66. Heart rate 55. Continue to monitor. Home labetalol regimen decreased to 300 mg twice daily. 2. Chronic kidney disease stage IV- Follows with Dr. Rodriguez who is consulted. 09/11/17 L AV fistula, 10/30/17 LUE fistulagram w/ balloon angioplasty, both with Dr. Reese. Dr. Reese consulted for possible temporary dialysis catheter placement tomorrow. N.p.o. after midnight. Continue home calcitriol and calcium acetate regimen. 3. Hyperkalemia-secondary to #2. Monitor BMP. 4. Type 2 diabetes dqttbvee-Qeia-Tmlvo before meals at bedtime. Continue home insulin regimen. 5. Hypertension-stable. Continue to monitor. Labetalol regimen decreased to 300 mg twice daily as noted above due to hypotension. Continue losartan, nifedipine and Lasix regimen. 6. Hyperlipidemia-continue statin. 7. Anemia of chronic disease-stable. Baseline hemoglobin 8-9. Continue iron supplementation. 8. BPH status post TURP-continue finasteride regimen. DVT prophylaxis-Lovenox subcu. This patient was seen by DEANDRE Chávez under the supervision of Dr. Vail. 10/31/17 1800 <Electronically signed by Rosio CARRERA> Date Rosio CARRERA 10/31/172002<Electronically signed by Kelley Vail DO> Cosigner Signature: Date (if applicable) Kelley Vail DO CC: KERENC Rosio Gamez; Brett Reese III, MD; Kelley Vail DO Signed POTASSIUM Collected: 10/31/2017 Status: F Source: [place] 4:59 PM [facility] REPOSITORY TYPE CODE TESTS RESULT OUT OF RANGE REFERENCE UNITS LAB L501.5600 3.5-5.1 mmol/L High K 5.2 Performed By: #### L501.5600 #### [facility] [address] [place] [address], [address] SURGERY VISIT REPORT Observed: 10/31/2017 Status: F Source: [place] 4:15 PM [facility] REPOSITORY [facility] [address] [place] [address]. [address] [place] [address] OFFICE VISIT Date of Service: 10/31/17 MR#: [id number] Acct: [id number] Name: RODRI GALE Rep #: [id number] : 1955 Provider: Jazlyn León PA-C Age/Sex: 62/M Location: [facility] Status: Signed Intake Vital Signs10/31/17 Height 5 ft 10 in 10/31/17 Weight: 225 lb 10/31/17 Body Mass Index (BMI) 32.3 10/31/17 Blood Pressure 93/53 10/31/17 Blood Pressure Location Rt brachial Intake Visit Reasons: F/U FISTULA 09/11/2017 Chief Complaint: recheck fistula Missionary Coordinator Required: No Is patient in pain?: No Allergies metformin Allergy (Verified 10/31/17 14:40) Itching Sulfa (Sulfonamide Antibiotics) Allergy (Verified 10/31/17 14:40) Swelling Medications Insulin Glargine [Lantus SoloStar Pen] 28 units SC DAILY 04/07/13 [History Confirmed 10/31/17] calcitriol 0.25 mcg capsule 0.25 mcg PO QDAY 07/10/17 [History Confirmed 10/31/17] finasteride 5 mg tablet 5 mg PO QDAY 07/10/17 [History Confirmed 10/31/17] furosemide 20 mg tablet 40 mg PO BID 07/10/17 [History Confirmed 10/31/17] labetalol 100 mg tablet 400 mg PO BID 07/10/17 [History Confirmed 10/31/17] losartan 50 mg tablet 100 mg PO QDAY 07/10/17 [History Confirmed 10/31/17] rosuvastatin 10 mg tablet 10 mg PO QDAY 07/10/17 [History Confirmed 10/31/17] Ergocalciferol [Vitamin D] 50,000 unit PO X1 08/19/17 [History Confirmed 10/31/17] Insulin Lispro [Humalog] 10 - 12 unit SC BID 08/19/17 [History Confirmed 10/31/17] Iron Polysaccharide Complex [Ferrex 150] 150 mg PO DAILYCM 08/19/17 [History Confirmed 10/31/17] Iron Sucrose Complex [Venofer] 100 mg IV X1 09/09/17 [History Confirmed 10/31/17] Nifedipine [Nifedipine ER] 60 mg PO DAILY 09/09/17 [History Confirmed 10/31/17] Calcium Acetate [Phoslo Gel Cap] 1,334 mg PO TIDCM 09/16/17 [History Confirmed 10/31/17] [facility] Medical History Screening for intestinal cancer (Acute) Renal failure (Acute) Essential hypertension (Acute) Type II diabetes mellitus (Acute) Hypercholesterolemia (Acute) Hyperglycemia due to type 1 diabetes mellitus (Acute) Anemia (Acute) Open fracture at right wrist or hand level (Acute) Presence of surgically created primary arteriovenous shunt for hemodialysis (Acute) Surgical History Presence of surgically created arteriovenous shunt for hemodialysis (Acute) S/P colonoscopy (Acute) Family History Mother Diabetes Hypertension Heart disease Cancer lung Brother Diabetes Father Diabetes Cancer pancreas Social History Smoking Status: Never smoker HPI HPI HPI: RODRI GALE, is a 62 M I am following for chronic renal failure. Patient has a left forearm radiocephalic arteriovenous fistula which was placed on 09/11/17. Dr. Reese performed a fistulogram of the left forearm radiocephalic AV fistula on 10/30/17 demonstrating arterial stenosis at the anastomosis and diffuse diminutive vein in the proximal 3-4 cm of the fistula. 5 x 80 mm drug coated angioplasty was performed. Patient tolerated the procedure well. Our office received a phone call from Dr. Rodriguez's office today noting the patient needs tunneled dialysis catheters urgently to start dialysis. Patient presented to our office lethargic, shaking and hypotensive. Per patients , cardiology has been adjusting his blood pressure medication. Patient took the increased dose and patient has felt light headedness and overall ill feeling. Patient is not currently on blood thinners. He denies previous myocardial infarction, stroke. Patient denies being on dialysis previously. He denies central lines. ROS General General: No weight change, appetite, fatigue, colon cancer, breast cancer or weakness HEENT HEENT: No difficulty swallowing, eye injury, eye surgery, swollen glands or hoarseness Endo Endocrine: Yes diabetes mellitus; no thyroid disease, thyroid cancer, Hair loss, heat intolerance or cold intolerance Skin Skin: No rash or changing moles Musc Musculoskeletal: No back problems, rheumatoid arthritis, gout or joint pain Cardio Cardiovascular: Yes high blood pressure; no murmur, pacemaker, heart disease, atrial fibrillation, heart attack, heart stent, palpitations, shortness of breat with exertion or chest pain Psych Psychiatric: No depression, anxiety or hearing voices Resp Respiratory: No shortness of breath, No sleep apnea, No cough, No COPD, No asthma, No emphysema, No wheezing Gastro Gastrointestinal: No abdominal pain, No nausea or vomiting, No diarrhea, Yes constipation, No blood in stool, No acid reflux, No hemorrhoids, No ulcers, No gallbladder problem, No black,tarry stools [place] Hematologic: No blood thinners, No blood disorders, No bleeding, Yes anemia, No blood clots Neuro Neurologic: No system reviewed and no additional complaints, except as docu, No as per HPI, No abnormal walking, No abnormal hearing, No abnormal movements, No abnormal speech, No behavioral changes, No burning sensations, No confusion, No seizure-like activity, No unsteadiness, No dizziness, No localized weakness, No frequent falls, No headache(s), No lack of coordination, No loss of vision, No memory loss, No other visual disturbances, No radiating pain, No restless legs, No sensory deficit, No fainting, No tremor(s), No weakness, No other Exam Const General: ill appearing Limitations: altered mental status HENMT Head: normal to inspection Eyes General: appearance normal, both eyes and all related structures Neck Neck mass: No Resp Effort AND Inspection: decreased respiratory effort Cardio Rate: bradycardic Heart Sounds: no murmurs GI Inspection: normal to inspection Palpation: soft Auscultation: normal bowel sounds Skin General: no rashes or lesions noted Extrem Other: Left forearm AV fistula- notable pulse, bruit and thrill. Radial pulse was thready. Minimal amount of swelling. Psych Affect: normal affect Assessment AND Plan Problems 1. Stage 4 chronic kidney disease N18.4 Plan Patient presented hypotensive and bradycardiac. Patient was evaluated and sent to the ED for further evaluation. Patient's fistula is not ready use at this point. Dr. Reese will plan at some point to place right tunneled dialysis chest catheters. Procedure was explained, risks and benefits. We will need to coordinate with the patient a date to have this completed. Dr. Reese has been updated on patient's condition and Dr. Rodriguez's office was contacted. Coding Level of Care Code Off vis,est,level 4 Diagnoses Stage 4 chronic kidney disease N18.4 Renal failure chronicity: chronic Chronic kidney disease stage: stage 4 (severe) 10/31/17 5375 <Electronically signed by Jazlyn León PA-C> Date Jazlyn León PA-C Cosigner Signature: Date (if applicable) CC: Abbie Rodriguez DO CBC W/DIFF, AUTOMATED Collected: 10/31/2017 Status: F Source: [place] 3:29 PM [facility] REPOSITORY TYPE CODE TESTS RESULT OUT OF RANGE REFERENCE UNITS LAB L100.1000 4.4-11.0 K/mm3 Normal WBC 8.9 LAB L100.1200 4.6-6.2 M/mm3 Low RBC 3.16 LAB L100.1300 13.0-16.5 g/dl Low HGB 9.3 LAB L100.1400 40-54 % Low HCT 30.3 LAB L100.1500 80-94 fL High MCV 95.9 LAB L100.1600 27.0-32.0 pg Normal MCH 29.4 LAB L100.1700 32-36 g/gl Low MCHC 30.7 LAB L100.1810 11.6-14.6 % Normal RDW CV 13.9 LAB L100.1820 35.1-43.9 fl High RDW SD 48.1 LAB L100.1900 150-450 K/mm3 Normal PLT 222 LAB L100.2000 6.2-12.0 fl Normal MPV 9.9 LAB L100.2100 47-70 % High NEUT% 77.5 LAB L100.2200 19-41 % Low LY% 11.3 LAB L100.2300 0-10 % Normal MONO% 8.4 LAB L100.2400 0-5 % Normal EO% 2.4 LAB L100.2500 0-1 % Normal BASO% 0.2 LAB L100.2550 0.0-0.9 % Normal IM GRAN % 0.200 Result Comment: IG% - Immature Granulocytes (promyelocytes, myelocytes and metamyelocytes) > 1% indicates that a LEFT SHIFT is Present. LAB L100.2620 2.0-7.7 X10 3/uL Normal Absolute Neut 6.9 LAB L100.2720 0.83-4.51 X10 3/ul Normal Absolute Lymph 1.01 LAB L100.5500 ADEQ PLT Normal EST ADEQUATE LAB L100.7300 ANISO Normal RARE LAB L100.7800 Normal MACROCYTE RARE Performed By: #### L100.0100 #### [facility] [address] [place], [place], [id number] BASIC METABOLIC Collected: 10/31/2017 Status: F Source: EDU[place]O PROFILE (BMP) 3:29 PM [facility] REPOSITORY Order Comment: 'TROP' Serial specimen #1, #2, #3, or #4: 1 TYPE CODE TESTS RESULT OUT OF RANGE REFERENCE UNITS LAB L501.0100 74-106 mg/dL High GLU 214 Result Comment: Glucose result greater than or equal to 200 mg/dL suggests DIABETES MELLITUS per A.D.A. criteria. Please note revised GLUCOSE reference range effective 2017. LAB L501.1000 7-18 mg/dL High alert BUN 104 Result Comment: Critical Result(s) Called Lars OLSEN at: 16:39:48 10/31/2017 by: DIEGO GODDARD LAB L501.1100 0.70-1.30 mg/dL CREAT,SERUM High alert 9.39 Result Comment: Critical Result(s) Called Lars OLSEN at: 16:39:48 10/31/2017 by: DIEGO GODDARD The validity of the calculated GFR AND GFRAA in patients over 70 years has not been determined. Clinical correlation is essential. LAB L501.1110 >60 mL/min Low EST GFR 6 Result Comment: Non- GFR Calc LAB L501.1115 >60 mL/min Low EST GFR - AA 7 Result Comment: GFR Calc LAB L501.1255 ml/min Normal Estimated CRCL 11.77 LAB L501.1300 10-20 RATIO Normal BUN/CRE 11.1 LAB L501.2200 8.5-10 mg/dL Normal .1 CA 9.0 LAB L501.5300 136-14 mmol/L Normal 5 NA 140 LAB L501.5600 3.5-5. mmol/L High 1 K 5.6 Result Comment: Slight Hemolysis, Result may be falsely increased. LAB L501.5900 98-107 mmol/L Normal CL 106 LAB L501.6100 21.0-32.0 mmol/L Normal CO2 22.0 LAB L501.6200 5-15 Normal GAP 12 Performed By: #### L500.2500, L501.4010, L501.5200 #### [facility] [address] [place], [address] TROPONIN-I Collected: 10/31/2017 Status: F Source: [place] 3:29 PM [facility] REPOSITORY Order Comment: 'TROP' Serial specimen #1, #2, #3, or #4: 1 TYPE CODE TESTS RESULT OUT OF RANGE REFERENCE UNITS LAB L501.4010 <0.06 ng/mL Normal < 0.02 TROPONIN-I Result Comment: TROPONIN-I EXPECTED VALUES <0.05 NEGATIVE 0.06 - 0.59 AT RISK OF NM > OR = 0.60 SUGGEST NM Performed By: #### L500.2500, L501.4010, L501.5200 #### [facility] [address] [place], [address] MAGNESIUM Collected: 10/31/2017 Status: F Source: [place] 3:29 PM [facility] REPOSITORY Order Comment: 'TROP' Serial specimen #1, #2, #3, or #4: 1 TYPE CODE TESTS RESULT OUT OF RANGE REFERENCE UNITS LAB L501.5200 1.6-2.6 mg/dL Normal MG 1.8 Result Comment: Slight Hemolysis, Result may be falsely increased. Performed By: #### L500.2500, L501.4010, L501.5200 #### [facility] [address] [place], [address] CHEST 1 VIEW Observed: 10/31/2017 Status: F Source: [place] (PORTABLE) 3:24 PM [facility] REPOSITORY [facility] Imaging Services [address] [place] [address] Chest 1 View (Portable) MR#: [id number] Acct: [id number] Name: RODRI GALE Rep #: [id number] : 1955 M 62 From: Corky Buckley MD PCP: Brett Reese III, MD Status: REG ER Study: Chest 1 View (Portable) Date of Exam: 10/31/17 Exam# [id number] Ordering Dr: Dave Molina DO STUDY: X-RAY CHEST REASON FOR EXAM: Male, 62 years old. HYPOTENSION, WEAKNESS, STAGE 4 KIDNEY DISEASE, JUST HAD A BALLOON AND FISTULA PLACED YESTERDAY PER TECHNIQUE: Single frontal view of the chest. COMPARISON: 06.06.15 FINDINGS: Chronic appearing increased interstitial lung markings. There is no demonstrated pleural abnormality. Enlarged heart size. Normal mediastinum and nader. Normal visualized pulmonary arteries. There is atherosclerotic calcification of the aortic arch with tortuosity. There are diffuse degenerative changes of the visualized thoracic spine. There is degenerative osteoarthritis of the bilateral shoulders. There is no demonstrated abnormality of the visualized soft tissue structures of the upper abdomen. RAD/Chest 1 View (Portable) IMPRESSION: There are no acute findings. Electronically Signed: Corky Buckley MD at 16:53 EDT , Service support , CC: Brett Reese III, MD; Dave Molina Talent Buyer: Signed HEPATITIS B SURFACE Collected: 10/31/2017 Status: F Source: EDUARDO AG 9:47 AM [facility] REPOSITORY TYPE CODE TESTS RESULT OUT OF RANGE REFERENCE UNITS LAB L3100.0400 Negative Normal HB Negative SURF AG Result Comment: Performed at: [facility] [address] [id number] Supervisor White Sugar: Brad Berkowitz PhD, Phone: [phone] Performed By: #### L3100.0390, L3100.0528 #### [facility] (refer to report for specific site) refer to report for address and phone number HEP B SURFACE Collected: 10/31/2017 Status: F Source: EDU[place]O ANTIBODIES 9:47 AM [facility] REPOSITORY TYPE CODE TESTS RESULT OUT OF RANGE REFERENCE UNITS LAB L3100.0528 . Normal Hep B Non Reactive Rimma AB Result Comment: Non Reactive: Inconsistent with immunity, less than 10 mIU/mL Reactive: Consistent with immunity, greater than 9.9 mIU/mL Performed By: #### L3100.0390, L3100.0528 #### [facility] (refer to report for specific site) refer to report for address and phone number OPERATIVE REPORT Observed: 10/30/2017 Status: F Source: EDUARDO 10:39 AM [facility] REPOSITORY [facility] Medical Records Department [address] [place] [address] Operative Report 10/30/17 1034 MR#: [id number] Acct: [id number] Name: RODRI GALE Rep #: [id number] : 1955 62 From: Benjamín Reese MD PCP: Brett Reese III, MD Status: REG SDC Y Location: [facility] Problem List (1) Problem with dialysis access Status: Acute Qualifiers: Encounter type: subsequent encounter Qualified Code(s): T82.898D - Other specified complication of vascular prosthetic devices, implants and grafts, subsequent encounter Report of Operation Date of Procedure: 10/30/17 Pre-Operative Diagnosis: Failure to mature left forearm radiocephalic arteriovenous hemodialysis fistula Post-Operative Diagnosis: Left forearm radiocephalic arteriovenous fistula with proximal fistula venous stenosis Surgery/Procedure Performed:: Left upper extremity fistulogram with 5 x 80 mm drug coated balloon Lutonix proximal fistula venous angioplasty Description of Surgical Findings:: Timeout and informed consent was obtained. 62-year-old gentleman was taken to the special procedures lab placed on the table. The left upper extremity was sterilely prepped and draped. Ultrasound was used to identify the cephalic vein in the proximal forearm. Under ultrasound guidance 2% lidocaine was instilled. Micropuncture needle inserted retrograde with flow. Micropuncture wire inserted. 6 [place] short sheath was inserted. Then using an 035 angled Glidewire and a 4 [place] angled glide cath tediously [place] was gained to the radial artery proximal to the fistula. Using carbon dioxide 50 g was obtained. This demonstrated moderate to proximal arterial stenosis at the anastomosis and diffuse diminutive vein in the proximal 3-4 cm of the fistula. So then I replaced the Glidewire and removed the glide cath. I placed a 5 x 80 mm blue tonics drug-coated balloon and perform balloon angioplasty for 3 minutes. Subsequently removed the balloon and replaced a glide cath. Final fistulogram was obtained with carbon dioxide now demonstrated dramatic improvement in the arterial anastomosis and in the proximal portion of the fistula with wide open flow. Using carbon dioxide the fistulogram was pursued for the upper arm and chest area. He tired procedure well catheters wires were removed the sheath was removed and a U suture of 4-0 nylon was placed. Hemostasis was intact there were no apparent complications and he tolerated it well. Images demonstrate a left forearm radiocephalic arteriovenous fistula. There is arterial stenosis and proximal venous diminutive vein. There is good outflow mostly in the upper arm through the basilic vein with good central venous outflow. Subsequent to the angioplasty there is improvement in the arterial anastomosis and diameter of the proximal portion of the cephalic vein/fistula. Impression Successfully treated left forearm radiocephalic arteriovenous fistula with improved inflow and proximal fistula diameter Benjamín Reese M.D., F.A.C.S. Type of Anesthesia:: IV Sedation 10/30/17 1039 <Electronically signed by Benjamín Reese MD> Date Benjamín Reese MD CC: Abbie Rodriguez DO; Brett Reese III, MD; Benjamín Reese MD Signed EDUARDO HEMATOCRIT Collected: 10/25/2017 Status: F Source: RON[place]D 8:50 AM [facility] REPOSITORY TYPE CODE TESTS RESULT OUT OF REFERENCE UNITS RANGE LAB WHCT 39.0-51.0 % Low Eduardo Hematocrit 28.8 Result Comment: Test performed at: [facility], [address] [place] [address]., [place] [address]. EDUARDO HEMOGLOBIN Collected: 10/25/2017 Status: F Source: RON[place]D 8:50 AM [facility] REPOSITORY TYPE CODE TESTS RESULT OUT OF REFERENCE UNITS RANGE LAB WHGB 13.0-17.0 g/dL Low [place] Hemoglobin 9.3 Result Comment: Test performed at: [facility], [address] [place] [address]., [place] [address]. CBC-COMPLETE BLOOD CNT Collected: 10/23/2017 Status: F Source: EDUARDO NO DIFF 6:07 AM [facility] REPOSITORY Order Comment: CBC AND BMP FOR [facility] 10/30/17 PTH,CBC,RENAL FOR DR RODRIGUEZ TYPE CODE TESTS RESULT OUT OF RANGE REFERENCE UNITS LAB L100.1000 4.4-11.0 K/mm3 Normal WBC 8.6 LAB L100.1200 4.6-6.2 M/mm3 Low RBC 3.18 LAB L100.1300 13.0-16.5 g/dl Low HGB 9.6 LAB L100.1400 40-54 % Low HCT 29.7 LAB L100.1500 80-94 fL Normal MCV 93.4 LAB L100.1600 27.0-32.0 pg Normal MCH 30.2 LAB L100.1700 32-36 g/gl Normal MCHC 32.3 LAB L100.1810 11.6-14.6 % Normal RDW CV 13.5 LAB L100.1820 35.1-43.9 fl High RDW SD 44.5 LAB L100.1900 150-450 K/mm3 Normal PLT 213 LAB L100.2000 6.2-12.0 fl Normal MPV 11.0 Performed By: #### L100.0500 #### [facility] [address] [place], [address] RENAL PROFILE Collected: 10/23/2017 Status: F Source: [place] 6:07 AM [facility] REPOSITORY Order Comment: CBC AND BMP FOR [facility] 10/30/17 PTH,CBC,RENAL FOR DR RODRIGUEZ TYPE CODE TESTS RESULT OUT OF RANGE REFERENCE UNITS LAB L501.0100 74-106 mg/dL High GLU 109 Result Comment: Fasting Glucose result from 100 to 125 mg/dL suggests IMPAIRED HOMEOSTASIS per A.D.A. criteria. Please note revised GLUCOSE reference range effective 2017. LAB L501.1000 7-18 mg/dL High alert BUN 104 Result Comment: Critical Result(s) Called at: 08:29:33 10/23/2017 by: Adrianna Velasco LAB L501.1100 0.70-1.30 mg/dL CREAT,SERUM High alert 9.37 Result Comment: Critical Result(s) Called at: 08:29:42 10/23/2017 by: Adrianna Velasco The validity of the calculated GFR AND GFRAA in patients over 70 years has not been determined. Clinical correlation is essential. LAB L501.1110 >60 mL/min Low EST GFR 6 Result Comment: Non- GFR Calc LAB L501.1115 >60 mL/min Low EST GFR - AA 7 Result Comment: GFR Calc LAB L501.1300 10-20 RATIO Normal BUN/CRE 11.1 LAB L501.1800 3.2-5.0 g/dL Normal ALB 3.2 LAB L501.2200 8.5-10.1 mg/dL Low CA 8.3 LAB L501.2300 2.5-4.9 mg/dL High PHOS 6.7 LAB L501.5300 136-145 mmol/L NA Normal 145 LAB L501.5600 3.5-5.1 mmol/L K Normal 4.5 LAB L501.5900 98-107 mmol/L High CL 110 LAB L501.6100 21.0-32.0 mmol/L Normal CO2 21.0 Performed By: #### L500.3600 #### [facility] [address] [place], [place], [address] PTHIN Collected: 10/23/2017 Status: F Source: [place] 6:07 AM [facility] REPOSITORY Order Comment: CBC AND BMP FOR [facility] 10/30/17 PTH,CBC,RENAL FOR DR RODRIGUEZ TYPE CODE TESTS RESULT OUT OF RANGE REFERENCE UNITS LAB L509.1000 18.4-80.1 pg/mL High PTHIN 164.7 Result Comment: Please Note: PTH INTACT METHOD AND REFERENCE RANGE CHANGE Effective 06/26/2017. Performed By: #### L509.1000 #### [facility] [address] [place], [place], [address] CNPTOUTREACH Observed: 10/22/2017 Status: COMPLETED Source: MONTE 12:00 AM [facility] REPOSITORY Patient Outreach (FAMPST) RODRI GALE ([id number]) 1955 M Date Time Provider Department 10/22/17 BRETT REESE III FAMPST During your visit today, we recorded the following information about you: Allergies As of Date: 10/22/2017 Noted Allergy Reaction BACTRIM (SULFAMETHOXAZOLE) 02/13/2013 4 - Hives LIPITOR (ATORVASTATIN CALCIUM) 10/10/2011 14 - Other: See Comments Comments: myalgia METFORMIN 01/02/2008 2 - Rash NORVASC (AMLODIPINE BESYLATE) 08/31/2014 7 - Swelling Date Reviewed: 10/16/2017 Reviewed by: Shari Yu LPN - Fully Assessed Visit Diagnosis:Medication management [Z79.899] Order(s):BASIC METABOLIC PNL [SQBMP] Order #: [id number] FUTURE HGB A1C [GKYFV0A] Order #: [id number] FUTURE LIPID PANEL BASIC [SQLIPB] Order #: [id number] FUTURE Prescriptions as of 10/22/2017 Sig: X LABETALOL 100 MG TABLET Take 4 tablets by mouth twice* X METOLAZONE 5 MG TABLET Take 1 tablet by mouth once d* X FUROSEMIDE 40 MG TABLET Take 1 tablet by mouth twice * X NIFEDIPINE ER 90 MG TABLET,EX* Take 1 tablet by mouth once d* X UNIFINE PENTIPS 31 GAUGE X 5/* USE 3 NEEDLES PER DAY INST* CALCITRIOL 0.5 MCG CAPSULE Take 0.5 mcg by mouth once da* CALCIUM ACETATE 667 MG TABLET Take 667 mg by mouth three ti* ERGOCALCIFEROL (VITAMIN D2) 5* Take 50,000 Units by mouth q * LOSARTAN 100 MG TABLET Take 1 tablet by mouth once d* CHOLECALCIFEROL (VITAMIN D3) * Take 1 capsule by mouth once * INSULIN GLARGINE (U-100) 100 * INJECT 28 (unless active then* POLYSACCHARIDE IRON COMPLEX 1* Take 1 capsule by mouth twice* X INSULIN LISPRO (U-100) 100 UN* Inject 14 Units subcutaneousl* X ROSUVASTATIN 10 MG TABLET TAKE 1 TABLET DAILY TRIAMCINOLONE ACETONIDE 0.1 %* Apply 1 application to affect* X BD ULTRA-FINE MINI PEN NEEDLE* USE ONCE DAILY X FINASTERIDE 5 MG TABLET Take 5 mg by mouth once daily. LANCETS Test blood sugar(s) 4 daily. * * BLOOD SUGAR DIAGNOSTIC STRIPS Test blood sugar(s) two times* Problem List As Of Date 10/22/2017 Noted Resolved BENIGN HYPERTENSION [I10] Hyperlipidemia LDL goal <100 [E78.5] Sebaceous cyst [L72.3] INVALID FOR*09/20/2016 Erectile Dysfunction [N52.9] INVALID FOR* Osteoarthritis of left knee [M17.12] INVALID FOR* BPH (benign prostatic hyperplasia) [N40.0] INVALID FOR* Tinnitus [H93.19] INVALID FOR* Hearing loss [H91.90] INVALID FOR* 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*INVALID FOR* DM (diabetes mellitus) type II uncontrolled wit*INVALID FOR* Chronic kidney disease, stage IV (severe) (HCC)*INVALID FOR* Fracture of forearm, closed [S52.90XA] INVALID FOR*09/20/2016 Type 2 diabetes mellitus with stage 4 chronic k*INVALID FOR* Essential tremor [G25.0] INVALID FOR* Anemia in stage 5 chronic kidney disease, not o*INVALID FOR* Hypocalcemia [E83.51] INVALID FOR* Vitamin D deficiency [E55.9] INVALID FOR* Encounter Status:Closed by NOAM PRODUSER on 04/18/18 SURGERY VISIT REPORT Observed: 10/18/2017 Status: F Source: [place] 1:52 PM [facility] REPOSITORY [facility] [address] [place] [address]. [address] [place] [address] OFFICE VISIT Date of Service: 10/18/17 MR#: [id number] Acct: [id number] Name: RODRI GALE Rep #: [id number] : 1955 Provider: Benjamín Reese MD Age/Sex: 62/M Location: [facility] Status: Signed Intake Intake Visit Reasons: f/u fistula 09/11/2017 Chief Complaint: recheck fistula Missionary Coordinator Required: No Is patient in pain?: No Allergies metformin Allergy (Verified 10/18/17 12:59) Itching Sulfa (Sulfonamide Antibiotics) Allergy (Verified 10/18/17 12:59) Swelling Medications Insulin Glargine [Lantus SoloStar Pen] 28 units SC DAILY 04/07/13 [History Confirmed 10/18/17] calcitriol 0.25 mcg capsule 0.25 mcg PO QDAY 07/10/17 [History Confirmed 10/18/17] finasteride 5 mg tablet 5 mg PO QDAY 07/10/17 [History Confirmed 10/18/17] furosemide 20 mg tablet 40 mg PO BID 07/10/17 [History Confirmed 10/18/17] labetalol 100 mg tablet 400 mg PO BID 07/10/17 [History Confirmed 10/18/17] losartan 50 mg tablet 100 mg PO QDAY 07/10/17 [History Confirmed 10/18/17] rosuvastatin 10 mg tablet 10 mg PO QDAY 07/10/17 [History Confirmed 10/18/17] Ergocalciferol [Vitamin D] 50,000 unit PO X1 08/19/17 [History Confirmed 10/18/17] Insulin Lispro [Humalog] 10 - 12 unit SC BID 08/19/17 [History Confirmed 10/18/17] Iron Polysaccharide Complex [Ferrex 150] 150 mg PO DAILYCM 08/19/17 [History Confirmed 10/18/17] Iron Sucrose Complex [Venofer] 100 mg IV X1 09/09/17 [History Confirmed 10/18/17] Nifedipine [Nifedipine ER] 60 mg PO DAILY 09/09/17 [History Confirmed 10/18/17] Calcium Acetate [Phoslo Gel Cap] 1,334 mg PO TIDCM 09/16/17 [History Confirmed 10/18/17] PFSH Medical History Screening for intestinal cancer (Acute) Renal failure (Acute) Essential hypertension (Acute) Type II diabetes mellitus (Acute) Hypercholesterolemia (Acute) Hyperglycemia due to type 1 diabetes mellitus (Acute) Anemia (Acute) Open fracture at right wrist or hand level (Acute) Presence of surgically created primary arteriovenous shunt for hemodialysis (Acute) Surgical History Presence of surgically created arteriovenous shunt for hemodialysis (Acute) S/P colonoscopy (Acute) Family History Mother Diabetes Hypertension Heart disease Cancer lung Brother Diabetes Father Diabetes Cancer pancreas Social History Smoking Status: Never smoker HPI HPI HPI: RODRI GALE, is a 62 M who presents to the office today for surgical follow-up regarding a left forearm radiocephalic arteriovenous fistula I created for him on September 11, 2017. It is of note that the patient also on September 30, 2017 had a screening colonoscopy. That colposcopy detected inflammatory polyp of the proximal transverse colon and a tubular adenoma of the splenic flexure it is recommended to him that he have follow- up colonoscopy at 3 years. The patient complains of intermittent cramping of his left hand. Exam Const General: cooperative Nutritional Appearance: overweight Orientation: alert, awake, oriented x3 HENMT Head: normal to inspection Cardio Rate: regular rate Rhythm: regular rhythm GI Palpation: soft, no hepatosplenomegaly Neuro Cranial Nerves: CN's II-XI intact bilaterally Extrem Other: Left forearm radiocephalic arteriovenous fistula. There is a pulse, thrill, bruit Psych Affect: normal affect Assessment AND Plan 1. Problem with dialysis access, initial encounter T82.898A Plan I am recommending to the patient a carbon dioxide left upper extremity interventional fistulogram with balloon maturation angioplasty. I discussed the technique, benefits, risks, alternatives. I anticipate accessing closer to the antecubital space retrograde with flow. This is a rather small fistula. I would need to track it with ultrasound from the wrist to more proximally in the forearm for accessing. He has had an opportunity to ask and have questions answered and is comfortable Benjamín Reese M.D., F.A.C.S. Coding Level of Care Code Global Post Op Diagnoses Problem with dialysis access, initial encounter T82.898A Encounter type: initial encounter 10/18/17 1352 <Electronically signed by Benjamín Reese MD> Date Benjamín Reese MD Cosigner Signature: Date (if applicable) CC: PROGRESS Observed: 10/16/2017 Status: COMPLETED Source: RON[place]D 3:45 PM [facility] REPOSITORY O ID: [id number] Author: Brett Reese III Service: (none) Author Type: Physician Type: Progress Notes Filed: 10/16/2017 6:03 PM Note Text: SUBJECTIVE: This is a 62 year old male that is here today for 1. SIGNIFICANT swelling both lower legs and feet since colonoscopy prep 3rd wk in September. On lasix 40mg BID. 2. CKD IV: Has fistula L forearm per R Cebul. 10/07: creat 7.7 GFR 8 (unchanged from 09/10/17. Still makes urine. no chest pain, cough, KOHLI PAST MEDICAL HISTORY Diagnosis Date - Anemia in stage 5 chronic kidney disease, not on chronic dialysis ([facility]) 07/12/2017 - BPH (benign prostatic hyperplasia) 03/06/2012 - Diabetes mellitus type 2 with neurological manifestations ([facility]) 02/13/2013 - 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 ([facility]) 08/31/2014 - Enlarged prostate - Essential hypertension, benign - Hearing loss 09/10/2012 - Hypocalcemia 07/31/2017 - Kidney disease - Osteoarthritis of left knee 02/16/2011 - Other and unspecified hyperlipidemia - Tinnitus 09/10/2012 - Type 2 diabetes mellitus with stage 4 chronic kidney disease, with long-term current use of insulin ([facility]) 09/20/2016 - Vitamin D deficiency 07/31/2017 - White coat hypertension 02/09/2014 Current Outpatient Prescriptions on File Prior to Visit: furosemide (LASIX) 40 mg tablet Take 1 tablet by mouth twice daily. NIFEdipine ER (PROCARDIA XL) 90 mg 24 hr tablet Take 1 tablet by mouth once daily. UNIFINE PENTIPS 31 gauge x 5/16 ndle USE 3 NEEDLES PER DAY INSTRUCTED labetalol (TRANDATE) 100 mg tablet Take 2 tablets by mouth twice daily. calcitriol (ROCALTROL) 0.5 mcg capsule Take 0.5 mcg by mouth once daily. calcium acetate (CALPHRON) 667 mg tablet Take 667 mg by mouth three times daily with meals. losartan (COZAAR) 100 mg tablet Take 1 tablet by mouth once daily. insulin glargine (LANTUS SOLOSTAR) 100 unit/mL (3 mL) inpn INJECT 28 (unless active then 21 unit) UNITS UNDER THE SKIN DAILY insulin lispro (HUMALOG KWIKPEN) 100 unit/mL inpn Inject 14 Units subcutaneously twice daily with meals. iron polysaccharide complex (FERREX-150) 150 mg iron capsule Take 1 capsule by mouth twice daily. rosuvastatin (CRESTOR) 10 mg tablet TAKE 1 TABLET DAILY triamcinolone acetonide (KENALOG) 0.1 % cream Apply 1 application to affected area once daily. Apply to affected area as needed for itching. Location: lower legs BD ULTRAFINE III MINI PEN 31 gauge x 3/16 ndle USE ONCE DAILY finasteride (PROSCAR) 5 mg tablet Take 5 mg by mouth once daily. Lancets (ONE TOUCH DELICA) lancets Test blood sugar(s) 4 daily. Dx: 250.02 Insulin: Yes blood sugar diagnostic (ONE TOUCH ULTRA TEST) test strip Test blood sugar(s) two times daily. Dx: 250.02. Insulin: No ergocalciferol, vitamin D2, (VITAMIN D) 50,000 unit capsule Take 50,000 Units by mouth q 3 WEEKS. calcitriol (ROCALTROL) 0.25 mcg capsule Take 1 capsule by mouth once daily. Cholecalciferol, Vitamin D3, 2,000 unit cap Take 1 capsule by mouth once daily. No current facility-administered medications on file prior to visit. FAMILY HISTORY Problem Relation Age of Onset - Diabetes Mother - Hypertension Mother - Heart Mother NM - lung cancer [OTHER] Mother bone metastasis - Diabetes Father - BPH [OTHER] Father - pancreatic cancer [OTHER] Father - Diabetes Brother - Diabetes Brother Social History Substance Use Topics - Smoking status: Former Smoker Packs/day: 1.00 Years: 6.00 Types: Cigarettes - Smokeless tobacco: Never Used Comment: quit 1969's - Alcohol use Yes Comment: RARE BP 158/73 Pulse 66 Resp 20 Wt 103.4 kg (228 lb) BMI 32.48 kg/m2 . OBJECTIVE: APPEARANCE Well appearing, alert, in no acute distress, well-hydrated, well nourished., pale, anxious HEART RRR with normal S1 and S2, no murmurs, no gallops, no JVD appreciated LUNG clear to auscultation EXTREMITIES lower extremities are swollen, firm, shiny without pitting edema or tenderness. Some erythema distal left lower leg NEURO Awake, alert and oriented x 3 and positive findings: hand tremors bilat. ASSESSMENT: CKD V with peripheral edema hypertension-acceptable raise bilaterally calling lab cordially asking about results are PLAN: add zaroxyln 5mg every day continue lasix 40mg twice/day hepatitis B vaccine #1 given follow up with specialists as appointed same other medications FLASH Mcleod MD, III MD CNOV Observed: 10/16/2017 Status: COMPLETED Source: RON[place] 3:00 PM [facility] REPOSITORY Office Visit (FAMPWS) UMANGRODRI Stafford ([id number]) 1955 M Date Time Provider Department 10/16/17 3:00 PM BRETT REESE III During your visit today, we recorded the following information about you: Pulse Respiration Blood pressure Weight 66/minute 20/minute 158/73 103.4 kg Brett Reese III MD 10/16/2017 6:03 PM Signed SUBJECTIVE: This is a 62 year old male that is here today for 1. SIGNIFICANT swelling both lower legs and feet since colonoscopy prep 3rd wk in September. On lasix 40mg BID. 2. CKD IV: Has fistula L forearm per R Hugh. 10/07: creat 7.7 GFR 8 (unchanged from 09/10/17. Still makes urine. no chest pain, cough, KOHLI PAST MEDICAL HISTORY Diagnosis Date - Anemia in stage 5 chronic kidney disease, not on chronic dialysis ([facility]) 07/12/2017 - BPH (benign prostatic hyperplasia) 03/06/2012 - Diabetes mellitus type 2 with neurological manifestations ([facility]) 02/13/2013 - 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 ([facility]) 08/31/2014 - Enlarged prostate - Essential hypertension, benign - Hearing loss 09/10/2012 - Hypocalcemia 07/31/2017 - Kidney disease - Osteoarthritis of left knee 02/16/2011 - Other and unspecified hyperlipidemia - Tinnitus 09/10/2012 - Type 2 diabetes mellitus with stage 4 chronic kidney disease, with long-term current use of insulin ([facility]) 09/20/2016 - Vitamin D deficiency 07/31/2017 - White coat hypertension 02/09/2014 Current Outpatient Prescriptions on File Prior to Visit: furosemide (LASIX) 40 mg tablet Take 1 tablet by mouth twice daily. NIFEdipine ER (PROCARDIA XL) 90 mg 24 hr tablet Take 1 tablet by mouth once daily. UNIFINE PENTIPS 31 gauge x 5/16ANDquot; ndle USE 3 NEEDLES PER DAY INSTRUCTED labetalol (TRANDATE) 100 mg tablet Take 2 tablets by mouth twice daily. calcitriol (ROCALTROL) 0.5 mcg capsule Take 0.5 mcg by mouth once daily. calcium acetate (CALPHRON) 667 mg tablet Take 667 mg by mouth three times daily with meals. losartan (COZAAR) 100 mg tablet Take 1 tablet by mouth once daily. insulin glargine (LANTUS SOLOSTAR) 100 unit/mL (3 mL) inpn INJECT 28 (unless active then 21 unit) UNITS UNDER THE SKIN DAILY insulin lispro (HUMALOG KWIKPEN) 100 unit/mL inpn Inject 14 Units subcutaneously twice daily with meals. iron polysaccharide complex (FERREX-150) 150 mg iron capsule Take 1 capsule by mouth twice daily. rosuvastatin (CRESTOR) 10 mg tablet TAKE 1 TABLET DAILY triamcinolone acetonide (KENALOG) 0.1 % cream Apply 1 application to affected area once daily. Apply to affected area as needed for itching. Location: lower legs BD ULTRAFINE III MINI PEN 31 gauge x 3/16ANDquot; ndle USE ONCE DAILY finasteride (PROSCAR) 5 mg tablet Take 5 mg by mouth once daily. Lancets (ONE TOUCH DELICA) lancets Test blood sugar(s) 4 daily. Dx: 250.02 Insulin: Yes blood sugar diagnostic (ONE TOUCH ULTRA TEST) test strip Test blood sugar(s) two times daily. Dx: 250.02. Insulin: No ergocalciferol, vitamin D2, (VITAMIN D) 50,000 unit capsule Take 50,000 Units by mouth q 3 WEEKS. calcitriol (ROCALTROL) 0.25 mcg capsule Take 1 capsule by mouth once daily. Cholecalciferol, Vitamin D3, 2,000 unit cap Take 1 capsule by mouth once daily. No current facility-administered medications on file prior to visit. FAMILY HISTORY Problem Relation Age of Onset - Diabetes Mother - Hypertension Mother - Heart Mother NM - lung cancer [OTHER] Mother bone metastasis - Diabetes Father - BPH [OTHER] Father - pancreatic cancer [OTHER] Father - Diabetes Brother - Diabetes Brother Social History Substance Use Topics - Smoking status: Former Smoker Packs/day: 1.00 Years: 6.00 Types: Cigarettes - Smokeless tobacco: Never Used Comment: quit - Alcohol use Yes Comment: RARE BP 158/73 Pulse 66 Resp 20 Wt 103.4 kg (228 lb) BMI 32.48 kg/m2 . OBJECTIVE: APPEARANCE Well appearing, alert, in no acute distress, well- hydrated, well nourished., pale, anxious HEART RRR with normal S1 and S2, no murmurs, no gallops, no JVD appreciated LUNG clear to auscultation EXTREMITIES lower extremities are swollen, firm, shiny without pitting edema or tenderness. Some erythema distal left lower leg NEURO Awake, alert and oriented x 3 and positive findings: hand tremors bilat. ASSESSMENT: CKD V with peripheral edema hypertension-acceptable raise bilaterally calling lab cordially asking about results are PLAN: add zaroxyln 5mg every day continue lasix 40mg twice/day hepatitis B vaccine #1 given follow up with specialists as appointed same other medications FLASH Mcleod MD, III MD Frank A Cebul, III MD 10/16/2017 4:13 PM Signed PLAN: add zaroxyln 5mg every day continue lasix 40mg twice/day hepatitis B vaccine #1 given follow up with specialists as appointed return to office 3 wks Brett Reese III MD Referring Provider: SELF [200] Allergies As of Date: 10/16/2017 Noted Allergy Reaction BACTRIM (SULFAMETHOXAZOLE) 02/13/2013 4 - Hives LIPITOR (ATORVASTATIN CALCIUM) 10/10/2011 14 - Other: See Comments Comments: myalgia METFORMIN 01/02/2008 2 - Rash NORVASC (AMLODIPINE BESYLATE) 08/31/2014 7 - Swelling Date Reviewed: 10/16/2017 Reviewed by: Shari Yu LPN - Fully Assessed Reason for Visit: Edema [39] Primary Visit Diagnosis:Essential hypertension, benign [I10] Other Visit Diagnoses:Chronic kidney disease, stage IV (severe) (HCC) [N18.4] Peripheral edema [R60.9] Need for vaccination [Z23] Order(s):labetalol (TRANDATE) 100 mg tabletTake 4 tablets by mouth twice daily.Disp: Rfl: metOLAzone (ZAROXOLYN) 5 mg tabletTake 1 tablet by mouth once daily.Disp: 30 tabletRfl: 11 HEPATITIS B VACC ADULT DOSAGE (3 DOSE SCHED) IM USE [[id number]] Order #: [id number] Prescriptions as of 10/16/2017 Sig: LABETALOL 100 MG TABLET Take 4 tablets by mouth twice* FUROSEMIDE 40 MG TABLET Take 1 tablet by mouth twice * NIFEDIPINE ER 90 MG TABLET,EX* Take 1 tablet by mouth once d* UNIFINE PENTIPS 31 GAUGE X 5/* USE 3 NEEDLES PER DAY INST* CALCITRIOL 0.5 MCG CAPSULE Take 0.5 mcg by mouth once da* CALCIUM ACETATE 667 MG TABLET Take 667 mg by mouth three ti* LOSARTAN 100 MG TABLET Take 1 tablet by mouth once d* INSULIN GLARGINE (U-100) 100 * INJECT 28 (unless active then* INSULIN LISPRO (U-100) 100 UN* Inject 14 Units subcutaneousl* POLYSACCHARIDE IRON COMPLEX 1* Take 1 capsule by mouth twice* ROSUVASTATIN 10 MG TABLET TAKE 1 TABLET DAILY TRIAMCINOLONE ACETONIDE 0.1 %* Apply 1 application to affect* BD INSULIN PEN NEEDLE UF MINI* USE ONCE DAILY FINASTERIDE 5 MG TABLET Take 5 mg by mouth once daily. LANCETS Test blood sugar(s) 4 daily. * * BLOOD SUGAR DIAGNOSTIC STRIPS Test blood sugar(s) two times* METOLAZONE 5 MG TABLET Take 1 tablet by mouth once d* ERGOCALCIFEROL (VITAMIN D2) 5* Take 50,000 Units by mouth q * CALCITRIOL 0.25 MCG CAPSULE Take 1 capsule by mouth once * CHOLECALCIFEROL (VITAMIN D3) * Take 1 capsule by mouth once * Problem List As Of Date 10/16/2017 Noted Resolved BENIGN HYPERTENSION [I10] Hyperlipidemia LDL goal <100 [E78.5] Sebaceous cyst [L72.3] INVALID FOR*09/20/2016 Erectile Dysfunction [N52.9] INVALID FOR* Osteoarthritis of left knee [M17.12] INVALID FOR* BPH (benign prostatic hyperplasia) [N40.0] INVALID FOR* Tinnitus [H93.19] INVALID FOR* Hearing loss [H91.90] INVALID FOR* 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*INVALID FOR* DM (diabetes mellitus) type II uncontrolled wit*INVALID FOR* Chronic kidney disease, stage IV (severe) (HCC)*INVALID FOR* Fracture of forearm, closed [S52.90XA] INVALID FOR*09/20/2016 Type 2 diabetes mellitus with stage 4 chronic k*INVALID FOR* Essential tremor [G25.0] INVALID FOR* Anemia in stage 5 chronic kidney disease, not o*INVALID FOR* Hypocalcemia [E83.51] INVALID FOR* Vitamin D deficiency [E55.9] INVALID FOR* Other instructions from your clinician: PLAN: add zaroxyln 5mg every day continue lasix 40mg twice/day hepatitis B vaccine #1 given follow up with specialists as appointed return to office 3 wks Brett Reese III MD Prescriptions ordered this encounter Disp Refills Start End LABETALOL 100 MG TABLET 10/16/2017 Class: Med Update Route: ORAL Sig: Take 4 tablets by mouth twice daily. METOLAZONE 5 MG TABLET 30 t* 11 10/16/2017 Route: ORAL Sig: Take 1 tablet by mouth once daily. Medications Discontinued During This Encounter labetalol (TRANDATE) 100 mg tablet 09/17/2017 10/16/2017 Class: Med Update Route: ORAL Sig: Take 2 tablets by mouth twice daily. Disc: Reason for discontinue is not on file. Encounter Status:Closed by BRETT REESE III, MD on 10/16/17 EDUARDO HEMATOCRIT Collected: 10/11/2017 Status: F Source: [place] 11:21 AM [facility] REPOSITORY TYPE CODE TESTS RESULT OUT OF REFERENCE UNITS RANGE LAB WHCT 39.0-51.0 % Low [place] Hematocrit 31.6 Result Comment: Test performed at: [address], [place] [address]. EDUARDO HEMOGLOBIN Collected: 10/11/2017 Status: F Source: [place] 11:21 AM [facility] REPOSITORY TYPE CODE TESTS RESULT OUT OF REFERENCE UNITS RANGE LAB WHGB 13.0-17.0 g/dL Low [place] Hemoglobin 10.1 Result Comment: Test performed at: [address] [place] [address]. COMPREHENSIVE METABOLIC Collected: 10/07/2017 Status: F Source: [facility] 6:00 AM [facility] REPOSITORY TYPE CODE TESTS RESULT OUT OF RANGE REFERENCE UNITS LAB L501.0100 74-106 mg/dL High GLU 113 Result Comment: Fasting Glucose result from 100 to 125 mg/dL suggests IMPAIRED HOMEOSTASIS per A.D.A. criteria. Please note revised GLUCOSE reference range effective 2017. LAB L501.1000 7-18 mg/dL High BUN 75 LAB L501.1100 0.70-1.30 mg/dL High alert CREAT,SERUM 7.77 Result Comment: Critical Result(s) Called at: 08:07:37 10/07/2017 by: Adrianna Moeller to Ronald The validity of the calculated GFR AND GFRAA in patients over 70 years has not been determined. Clinical correlation is essential. LAB L501.1110 >60 mL/min Low EST GFR 8 Result Comment: Non- GFR Calc LAB L501.1115 >60 mL/min Low EST GFR - AA 9 Result Comment: GFR Calc LAB L501.1300 10-20 RATIO Low BUN/CRE 9.7 LAB L501.1500 6.4-8.2 g/dL Normal T PROT 7.0 LAB L501.1800 3.2-5.0 g/dL Normal ALB 3.5 LAB L501.1950 2.2-4.2 g/dL Normal GLOB 3.5 LAB L501.2000 0.9-2.4 RATIO Normal A/G 1.0 LAB L501.2200 8.5-10.1 mg/dL Normal CA 8.5 LAB L501.4100 15-37 U/L Normal AST 17 LAB L501.4305 45-117 U/L Normal ALK P 72 LAB L501.4405 16-61 U/L Low ALT 15 Result Comment: Please note revised ALT reference range effective 2017. LAB L501.4600 0.20-1.00 mg/dL Normal T BILI 0.30 LAB L501.5300 136-145 mmol/L Normal NA 145 LAB L501.5600 3.5-5.1 mmol/L Normal K 4.6 LAB L501.5900 98-107 mmol/L High CL 111 LAB L501.6100 21.0-32.0 mmol/L Normal CO2 23.0 LAB L501.6200 5-15 Normal GAP 11 Performed By: #### L500.4050, L500.4100 #### [facility] [address] [place], [address] LIPID PROFILE Collected: 10/07/2017 Status: F Source: [place] 6:00 AM [facility] REPOSITORY TYPE CODE TESTS RESULT OUT OF RANGE REFERENCE UNITS LAB L501.4900 200 mg/dL Normal CHOL 126 Result Comment: <200 mg/dL Desirable 200-240 mg/dL Borderline >240 mg/dL High Risk LAB L501.5000 mg/dL Normal TRIG 84 Result Comment: The drugs N-Acetylcysteine and Metamizole may falsely depress this assay. Serum Triglycerides Reference Interval Normal <150 mg/dL Borderline high 150 - 199 mg/dL High 200 - 499 mg/dL Very High > or = 500 mg/dL LAB L501.6400 mg/dL Normal HDL 41 Result Comment: The drugs N-Acetylcysteine and Metamizole may falsely depress this assay. Reference Range HDL <40 mg/dL Low HDL Cholesterol HDL >or= 60 mg/dL High HDL Cholesterol LAB L501.6500 0-130 mg/dL Normal LDL 68 LAB L501.6600 5-40 mg/dL Normal VLDL 17 Performed By: #### L500.4050, L500.4100 #### [facility] [address] [place], [address] VITAMIN D,25 HYDROXY Collected: 10/07/2017 Status: F Source: [place] 6:00 AM [facility] REPOSITORY TYPE CODE TESTS RESULT OUT OF RANGE REFERENCE UNITS LAB L506.1000 29.95-100.01 ng/mL Normal Vitamin D 49.4 25-OH Result Comment: Vitamin D 25(OH) Status Range Deficiency <20 ng/mL (50nmol/L) Insuffciency 20 - 30 ng/mL (50 - 75 nmol/L) Sufficiency 30 - 100 ng/mL (75 - 250 nmol/L) Toxicity >100 ng/mL (>250 nmol/L) Performed By: #### L506.1000 #### [facility] [address] [place], [address] HEMOGLOBIN A1C Collected: 10/07/2017 Status: F Source: [place] 6:00 AM [facility] REPOSITORY TYPE CODE TESTS RESULT OUT OF RANGE REFERENCE UNITS LAB L501.9985 4.2-6.3 % Normal HGB A1C 6.3 Performed By: #### L501.9985 #### [facility] [address] [place], [address] ECHOCARDIOGRAM Observed: 10/03/2017 Status: F Source: [place] 7:35 AM [facility], [address], [address], [place], [place] [address] and TRANSTHORACIC ECHOCARDIOGRAM REPORT Patient Name: [place]RI [place] [address] [address] Aleksandar Physician: Study Date: 10/03/2017 Referring Tali Roberson MD Physician: MRN/PID: [id number] PCP: Accession/Order#: [id number] Department [facility] Location: Date of : 1955 Fellow: Gender: M Nurse: Admit Date: Internet Designer: Lisa Kern [facility] Admission Status: Outpatient Additional Staff: Height: 177.80 cm CC Report to: Weight: 101.15 kg Study Type: Echocardiogram BSA: 2.19 m2 Blood Pressure: 151 /68 mmHg Diagnosis/ICD: Z01.818 Encounter for other preprocedural examination Indication: Kidney transplant evaluation Procedure/CPT: Echo Complete w/Full Doppler (17056) Patient History: Pertinent History: Kidney disease. Study Detail: The following Echo studies were performed: 2D, M-Mode, Doppler and color flow. PHYSICIAN INTERPRETATION: Left Ventricle: The left ventricular systolic function is normal. The left ventricular cavity size is normal. There is mild left ventricular hypertrophy. Spectral Doppler shows an abnormal pattern of le ft ventricular diastolic filling. Left Atrium: The left atrium is moderately dilated. Right Ventricle: The right ventricle is normal in size. There is normal right ventricular global systolic function. Right Atrium: The right atrium is normal in size. Aortic Valve: The aortic valve is trileaflet. There is no evidence of aortic valve regurgitation. The peak instantaneous gradient of the aortic valve is 8.1 mmHg. Mitral Valve: The mitral valve is normal in structure. There is mild mitral annular calcification. There is mild mitral valve regurgitation. Tricuspid Valve: The tricuspid valve is structurally normal. No evidence of tricuspid regurgitation. Pulmonic Valve: The pulmonic valve is structurally normal. There is trace pulmonic valve regurgitation. Pericardium: There is no pericardial effusion noted. Aorta: The aortic root is normal. CONCLUSIONS: 1. The left ventricular systolic function is normal. 2. Spectral Doppler shows an abnormal pattern of left ventricular diastolic filling. 3. The left atrium is moderately dilated. QUANTITATIVE DATA SUMMARY: 2D MEASUREMENTS: Normal Ranges: IVSd: 1.50 cm (0.6-1.1cm) LVPWd: 1.20 cm (0.6-1.1cm) LVIDd: 4.60 cm (3.9-5.9cm) LVIDs: 3.40 cm LV Mass Index: 111.3 g/m2 LV % FS 26.1 % LA VOLUME: Normal Ranges: LA Vol A4C: 83.3 ml (22+/-6mL/m2) LA Vol A2C: 87.4 ml LA Vol BP: 86.9 ml LA Vol Index A4C: 38.1ml/m2 LA Vol Index A2C: 40.0 ml/m2 LA Vol Index BP: 39.7 ml/m2 LA Area A4C: 23.0 cm2 LA Area A2C: 24.0 cm2 LA Major [place] A4C: 5.4 cm LA [place] A2C: 5.6 cm LA Volume Index: 39.0 ml/m2 M-MODE MEASUREMENTS: Normal Ranges: Ao Root: 3.60 cm (2.0-3.7cm) LAs: 4.80 cm (2.7-4.0cm) AORTA MEASUREMENTS: Normal Ranges: Asc Ao, d: 2.90 cm (2.1-3.4cm) Ao Arch: 3.00 cm (2.0-3.6cm) LV SYSTOLIC FUNCTION BY 2D PLANIMETRY (MOD): Normal Ranges: EF-A4C View: 57.4 % (>55%) EF-A2C View: 55.3 % EF-Biplane: 57.4 % LV DIASTOLIC FUNCTION: Normal Ranges: MV Peak E: 0.86 m/s (0.7-1.2 m/s) MV Peak A: 0.76 m/s (0.42-0.7 m/s) E/A Ratio: 1.13 (1.0-2.2) MV lateral e' 0.13 m/s MV medial e' 0.07 m/s MV A Dur: 169.00 msec E/e' Ratio: 6.60 (<8.0) PulmV Sys Femi: 68.60 cm/s PulmV Austin Femi: 52.40 cm/s PulmV S/D Femi: 1.30 PulmV A Revs Femi: 22.60 cm/s PulmV A Revs Dur: 137.00 msec MITRAL VALVE: Normal Ranges: MV DT: 261 msec (150-240msec) AORTIC VALVE: Normal Ranges: AoV Vmax: 1.42 m/s (<1.7m/s) AoV Peak P.1 mmHg (<20mmHg) LVOT Max Femi: 1.02 m/s (<1.1m/s) LVOT VTI: 26.20 cm LVOT Diameter: 2.20 cm (1.8-2.4cm) AoV Area,Vmax: 2.73 cm2 (2.5-4.5cm2) RIGHT VENTRICLE: TAPSE: 19.0 mm RV s' 0.12 m/s TRICUSPID VALVE/RVSP: Normal Ranges: TV Vmax 2.31 m/s TV Peak P.3 mmHg PULMONIC VALVE: Normal Ranges: PV Accel Time: 201 msec (>120ms) PV Max Femi: 1.0 m/s (0.6-0.9m/s) PV Max P.8 mmHg Pulmonary Veins: PulmV A Revs Dur: 137.00 msec PulmV A Revs Femi: 22.60 cm/s PulmV Austin Femi: 52.40 cm/s PulmV S/D Femi: 1.30 PulmV Sys Femi: 68.60 cm/s [id number] Beverley Huertas MD Electronically signed on 10/03/2017 at 9:46:[address] ABDOMEN AND PELVIS Observed: 10/02/2017 Status: F Source: [place] WO CONTRAST 8:[facility] AM [facility]POS[facility] Patient Name: RODRI GALE STUDY: BD CT ABDOMEN AND PELVIS WO CONTRAST; 10/02/2017 8:35 am INDICATION: Signs/Symptoms: pre-kidney transplant-evaluation for vascular calcifications Z01.818 Encounter for other preprocedural examination. COMPARISON: None. ACCESSION NUMBER(S): [id number] ORDERING CLINICIAN: TALI ROBERSON TECHNIQUE: CT of the abdomen and pelvis from the lung bases through the symphysis pubis without oral or IV contrast FINDINGS: LOWER CHEST: No acute airspace disease. BONES: No acute skeletal findings. VASCULATURE: No abdominal aortic or iliac artery aneurysm Moderate to extensive calcified atherosclerotic plaque throughout the infrarenal abdominal aorta Essentially at and 1 cm distal to the bifurcation of the right common iliac artery, there is a short segment of calcified plaque along the right external iliac artery that faces the iliac fossa. More distally, a longer segment of atherosclerotic plaque faces the iliac fossa throughout the distal intrapelvic portion of the right external iliac artery. The distal left common iliac artery has abundant calcified plaque facing the left iliac fossa. Only the most distal portion of the intrapelvic left iliac artery has calcified plaque facing the left iliac fossa. The vast majority of the intrapelvic left external iliac artery has no calcified plaque. LIVER: Normal. No enlargement or evidence of cirrhosis or fatty change. No gross evidence of a mass, noting low sensitivity and specificity without IV contrast. SPLEEN: Normal. No enlargement. PANCREAS: Normal. No CT evidence of acute or chronic pancreatitis. No obvious duct dilation. No gross evidence of a mass, noting low sensitivity and specificity without IV contrast. GALLBLADDER: Normal CT appearance. No dilation, calcified, or gas-containing stones. Other types of gallstones could be occult on CT and detectable only by ultrasound. BILE DUCTS: Normal. No biliary duct dilation. ADRENAL GLANDS: Normal. No nodule or mass. KIDNEYS AND URETERS: Normal. No hydronephrosis on either side. No radiodense stone. Radiolucent stones could be occult on CT. No gross evidence of a solid mass, noting low sensitivity and specificity without IV contrast. LYMPH NODES: There is mild bilateral inguinal and intrapelvic iliac chain adenopathy. Etiology uncertain. Increased number of nonenlarged retroperitoneal and mesenteric lymph nodes. APPENDIX: Normal. Not dilated, thick walled or in any other way inflamed in appearance. No inflammatory change about the appendix. COLON: Normal. No sign of acute diverticulitis or other colitis. No annular constricting mass. SMALL BOWEL: Normal. No small bowel dilation or any other sign of small bowel obstruction. STOMACH / DUODENUM: Grossly normal by CT which has limited sensitivity and specificity for the stomach and duodenum. RETROPERITONEUM: Normal. No acute hemorrhage or inflammatory change. Lymph nodes in a separate dedicated section. OMENTUM, MESENTERY AND PERITONEAL SPACES: Free intraperitoneal air: Negative Free intraperitoneal fluid: Trace but abnormal free pelvic, far too small for paracentesis. Abscess: Negative Other: n/a. (Lymph nodes in a separate dedicated section.) URINARY BLADDER: Normal. No wall thickening, large diverticula, radiodense stone or surrounding inflammatory change. PELVIS: The prostate is not significantly enlarged. No pelvic mass, adenopathy or free fluid. ABDOMINAL WALL: Hernia: Negative Other: No acute or contributory abnormality. IMPRESSION: FURTHER DETAILS ARE GIVEN ABOVE IN THE VASCULATURE SECTION OF THIS REPORT. BRIEFLY, THE MAJORITY OF THE LEFT EXTERNAL ILIAC ARTERY IS FREE OF ATHEROSCLEROTIC CALCIFICATIONS FACING THE LEFT ILIAC FOSSA. INCIDENTAL AT LEAST MILD BILATERAL ILIAC CHAIN ADENOPATHY, GREATEST IN THE GROIN BUT ALSO ALONG THE INTRAPELVIC EXTERNAL ILIAC CHAINS. INCIDENTAL TRACE ABNORMAL FREE PELVIC FLUID OF UNCERTAIN ETIOLOGY. Electronically signed by: KELLEY LOVE MD OPERATIVE REPORT Observed: 09/30/2017 Status: F Source: [place] 8:01 AM [facility] REPOSITORY [facility] Medical Records Department [address] [place] [address] Operative Report 09/30/17 0757 MR#: [id number] Acct: [id number] Name: RODRI GALE Rep #: [id number] : 1955 62 From: Benjamín Reese MD PCP: Bertt Reese III, MD Status: REG [facility] Y Location: [place] [address] Problem List (1) Screening for intestinal cancer Status: Acute Report of Operation Date of Procedure: 09/30/17 Pre-Operative Diagnosis: Screening for intestinal cancer Post-Operative Diagnosis: Small sessile polyp of the proximal transverse colon. 9 mm sessile polyp of the splenic flexure. Scattered sigmoid diverticulosis Surgery/Procedure Performed:: Colonoscopy with cold forcep and hot snare polypectomy Description of Surgical Findings:: Timeout and informed consent was obtained. 62-year-old gent was taken to the endoscopy suite. He has never had a previous colonoscopy. He was placed in left lateral decubitus position. Because of his renal failure monitored anesthesia care was provided. Digital rectal exam demonstrated a moderate grade 2 internal hemorrhoids. 2+ smooth prostate. No mass lesions. Normal anal tone. Flexible colonoscope inserted in the rectum advanced with tortuous sigmoid colon was then advanced through the transverse colon with some transabdominal pressure was advanced to the cecum. Bowel prep was good. The cecum ileocecal valve area was nicely achieved. The scope was carefully withdrawn from the cecum ascending colon. In the proximal transverse colon there is a small 6 mm diameter polyp. This was sampled and eradicated with cold forceps. The scope was advanced and back through the remainder of the transverse colon and what was felt to be the splenic flexure a 9 mm sessile polyp was identified. A hot snare was used to resect this polyp. The base was treated with a hemostatic clip. The scope was further withdrawn. Scattered diverticulosis of the sigmoid colon noted. No evidence of acute pathology. The scope was withdrawn to the rectum retroflex the anorectal verge inspected grade 2 hemorrhoids noted no active bleeding. The scope was placed back in antegrade viewing position and excess fluid and air was aspirated free. The procedure was pleased with patient tolerating it well. Impression Sessile polyp of the proximal transverse colon Sessile polyp of the splenic flexure Scattered sigmoid diverticulosis Grade 2 internal hemorrhoids The patient will be notified of pathology results as they become available.. Follow-up colonoscopy anticipated in 3 years. Cc: Dr. Brett Reese III The procedure started 0733. The cecum was reached at 0741.51. Procedure was completed at 0752.59 Benjamín Reese M.D., F.A.C.S. Type of Anesthesia:: MAC Anesthesiologist: Sadia Kathleen 09/30/17 0801 <Electronically signed by Benjamín Reese MD> Date Benjamín Reese MD CC: Brett Reese III, MD; Benjamín Reese MD Signed BEDSIDE GLUCOSE Collected: 09/30/2017 Status: F Source: [place] 6:25 AM [facility] REPOSITORY TYPE CODE TESTS RESULT OUT OF REFERENCE UNITS RANGE LAB L501.080 70-110 mg/dL High BEDSIDE GLU 111 Result Comment: MANAGEMENT OF PATIENT CARE PER NURSING PROTOCOL Performed By: #### L501.080 #### [facility] Point of Care [address] [place], [place] [address] COLON BIOPSY (CHOOSE Observed: 09/30/2017 Status: F Source: [place] SITE) 12:00 AM [facility] REPOSITORY Patient: RODRI GALE : 1955 (62/M) Acct Num: [id number] Phys: Hugh LYNCH,Benjamín Unit Num: [id number] Loc: EN Specimen: [id number] Received: 09/30/17 - 1141 Spec Type: COLON BX TISSUES TISSUES: A. Transverse colon B. SPLENIC FLEXURE GROSS DESCRIPTION A - Received in fixative is one container labeled with the patient's name and designated proximal transverse polyp biopsy. The specimen consists of two irregular fragments of light gamble soft tissue that in aggregate measure 0.4 x 0.3 x 0.1 cm. The specimen is totally submitted in one cassette. B - Received in fixative is one container labeled with the patient's name and designated splenic flexure polyp. The specimen consists of two irregular fragments of light gamble soft tissue that in aggregate measure 0.7 x 0.3 x 0.1 cm. The specimen is totally submitted in one cassette. / BRI:ignacia 09/30/17 TC:1 CPT: 40632 x2 HEADER OPERATION: Colonoscopy with biopsy and polypectomy PRE-OP DIAGNOSIS: Screening TISSUE SUBMITTED: A Proximal transverse polyp biopsy, B Splenic flexure polyp MICROSCOPIC DESCRIPTION Slides are reviewed. MICROSCOPIC DIAGNOSIS A. Proximal transverse polyp, biopsy: Consistent with inflammatory polyp. B. Splenic flexure polyp, biopsy: Tubular adenoma. BRI:ignacia 10/01/17 Signed Riley Marshall 10/01/17 <signature on file> Performed By: #### PCOLBX #### [facility] [address] [place], [place] [address], [address] EDUARDO HEMATOCRIT Collected: 09/27/2017 Status: F Source: [place] 8:20 AM [facility] REPOSITORY TYPE CODE TESTS RESULT OUT OF REFERENCE UNITS RANGE LAB WHCT 39.0-51.0 % Low [place] Hematocrit 30.3 Result Comment: Test performed at: [address] [place] [address]. EDUARDO HEMOGLOBIN Collected: 09/27/2017 Status: F Source: [place] 8:20 AM [facility] REPOSITORY TYPE CODE TESTS RESULT OUT OF REFERENCE UNITS RANGE LAB WHGB 13.0-17.0 g/dL Low Mary Alice Hemoglobin 9.7 Result Comment: Test performed at: [address] [place] [address]. SURGERY VISIT REPORT Observed: 09/20/2017 Status: F Source: [place] 2:09 PM [facility] REPOSITORY [facility] [address] [place] [address] OFFICE VISIT Date of Service: 09/20/17 MR#: [id number] Acct: [id number] Name: RODRI GALE Rep #: [id number] : 1955 Provider: Benjamín Reese MD Age/Sex: 62/M Location: [facility] Status: Signed Intake Intake Visit Reasons: Fistula RC 09/11/2017 Chief Complaint: recheck fistula Missionary Coordinator Required: No Is patient in pain?: No Allergies metformin Allergy (Verified 09/20/17 13:56) Itching Sulfa (Sulfonamide Antibiotics) Allergy (Verified 09/20/17 13:56) Swelling Medications Insulin Glargine [Lantus SoloStar Pen] 28 units SC DAILY 04/07/13 [History Confirmed 09/20/17] calcitriol 0.25 mcg capsule 0.25 mcg PO QDAY 07/10/17 [History Confirmed 09/20/17] finasteride 5 mg tablet 5 mg PO QDAY 07/10/17 [History Confirmed 09/20/17] furosemide 20 mg tablet 40 mg PO BID 07/10/17 [History Confirmed 09/20/17] labetalol 100 mg tablet 400 mg PO BID 07/10/17 [History Confirmed 09/20/17] losartan 50 mg tablet 100 mg PO QDAY 07/10/17 [History Confirmed 09/20/17] rosuvastatin 10 mg tablet 10 mg PO QDAY 07/10/17 [History Confirmed 09/20/17] Ergocalciferol [Vitamin D] 50,000 unit PO X1 08/19/17 [History Confirmed 09/20/17] Insulin Lispro [Humalog] 10 - 12 unit SC BID 08/19/17 [History Confirmed 09/20/17] Iron Polysaccharide Complex [Ferrex 150] 150 mg PO DAILYCM 08/19/17 [History Confirmed 09/20/17] Iron Sucrose Complex [Venofer] 100 mg IV X1 09/09/17 [History Confirmed 09/20/17] Nifedipine [Nifedipine ER] 60 mg PO DAILY 09/09/17 [History Confirmed 09/20/17] Calcium Acetate [Phoslo Gel Cap] 1,334 mg PO TIDCM 09/16/17 [History Confirmed 09/20/17] [facility] Medical History Screening for intestinal cancer (Acute) Renal failure (Acute) Essential hypertension (Acute) Type II diabetes mellitus (Acute) Hypercholesterolemia (Acute) Hyperglycemia due to type 1 diabetes mellitus (Acute) Anemia (Acute) Open fracture at right wrist or hand level (Acute) 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 He is status post left forearm radial to cephalic arteriovenous fistula creation on September 11, 2017. He has no particular complaints regarding that. He also is in need of a screening colonoscopy recommended by both his primary care physician Dr. Brett Reese, III and his renal transplant team. He is progressing well from his recent surgery. He is exercising his hand nicely. He has no abdominal complaints. No history of previous colonoscopy. Exam Const Nutritional Appearance: average body habitus Orientation: alert HENGA Head: normal to inspection Eyes General: appearance normal, both eyes and all related structures Neck Neck: normal visual inspection Resp Effort AND Inspection: normal respiratory effort Auscultation: clear to auscultation bilaterally Cardio Rate: regular rate Rhythm: regular rhythm GI Palpation: soft, no hepatosplenomegaly Neuro Cranial Nerves: CN's II-XI intact bilaterally Extrem General: calf tenderness Other: Left forearm has a radiocephalic AV fistula with a newly healing incision. There is a strong pulse, thrill, bruit for 1 week into this procedure. Psych Affect: normal affect Assessment AND Plan 1. Stage 4 chronic kidney disease N18.4 2. Screening for intestinal cancer Z12.10 Plan This patient is doing well status post creation of a left forearm AV fistula. He has been given wound care and activity instructions. He will return to see me in 4 weeks time for ongoing follow-up. A request has been made to proceed with a screening colonoscopy. I have discussed the technique, benefits, risks, alternatives. He has had an opportunity to ask and have questions answered. We will try to schedule that his care. Cc: FLASH Calderon M.D., F.A.C.S. Coding Level of Care Code Global Post Op Diagnoses Stage 4 chronic kidney disease N18.4 Renal failure chronicity: chronic Chronic kidney disease stage: stage 4 (severe) Screening for intestinal cancer Z12.10 09/20/17 1409 <Electronically signed by Benjamín Reese MD> Date Benjamín Reese MD Cosigner Signature: Date (if applicable) CC: Brett Resee III, MD PROGRESS Observed: 09/13/2017 Status: COMPLETED Source: [place] 12:23 PM [facility] [place] REPOSITORY HNO ID: [id number] Author: Opal Zambrano (Sw) Service: (none) Author Type: Commutator Repairer Type: Progress Notes Filed: 09/13/2017 12:23 PM Note Text: SOCIAL WORK Date of Service: September 13, 2017 Rodri Gale is a 62 year old male being seen for initial social work assessment. At this time, social work service is declined/deferred based on: he is not interested. PLAN: Provider assessed patient need and declined SW assessment JANNETH Bah PROGRESS Observed: 09/13/2017 Status: COMPLETED Source: [place] 10:05 AM [facility] [place] REPOSITORY HNO ID: [id number] Author: Kamille Srivastava Service: (none) Author Type: Physician Type: Progress Notes Filed: 09/16/2017 8:28 AM Note Text: PATIENT NAME: Rodri Gale. CLINIC NO: [id number]. ATTENDING PHYSICIAN: Kamille Srivastava MD. DATE OF SERVICE: . ? DIAGNOSIS: Anemia secondary to chronic/ end-stage renal failure. ? HPI: 62-year-old gentleman with history of hypertension and insulin-dependent type 2 diabetic with retinopathy and chronic renal failure, stage V,not on hemodialysis. He has diabetes mellitus with CKD IV on renal transplant list and retinopathy. ?HbA1c 7.7 on 03/01/17 with subsequent increase Lantus 28 u. /day and Humalog 12 units BID at brkt and supper. ??Rare hypoglycemia Essential hypertension--was normal per patient at Dr Rodriguez's office 2 wks ago. ?No missed doses. Hx of hyperkaliemia. -improved since eating less citrus, history of hyperlipidemia. He also has a history of chronic anemia on FeSO4 once/day. ?Some nausea if med not taken with food. he has no nausea, gastritis, or change in her bowel habit. Denied blood per rectum or melena. ? The patient was seen by Dr. Rodriguez last month for follow-up of his chronic renal failure. He complain of increased fatigue and his hemoglobin was 8.5, hematocrit 25.9. he has been feeling more tired for the last 2 months. Increased shortness of breath and dyspnea exertion. He had trouble sleeping especially night because of sinus congestion versus orthopnea. She has no chest pain or palpitation. He has occasional lightheadedness in the morning. No dizziness or headaches. Increased lethargy and cold intolerance noted. He is taking iron once daily for anemia. Patient had an AV fistula for hemodialysis with Dr. Benjamín Reese last week. No history of previous blood transfusion or family history of anemia or bleeding disorder. He gained over 5 -10 lb in the last 2 months with increased edema. current treatment: Aranesp 60mcg every 14 days Interim history: Patient is doing well with Aranesp injection, he had no blood transfusions. His blood pressure was elevated but today is normal. Patient did well after his AV fistula placement for dialysis last week. He has no headache, chest pain, or shortness of breath.his weight is stable. He recently retired and is somewhat worried about his future. Patient denied symptom of depression. All medications AND allergies updated and KP Score reviewed by me. REVIEW OF SYSTEMS: ? CONSTITUTIONAL: No fevers, chills, nightsweats, unintended weight loss HEENT: Denies frequent or severe heaches, nasal congestion/sinus symptoms, problematic allergy problems. EYES: No diplopia or blurry vision. CARDIOVASCULAR: No chest pain, dyspnea, palpitations, orthopnea, PND, ankle edema. PULM: No dyspnea, unexplained cough. GI: No dysphagia/odynophagia, problematic reflux, constipation, diarrhea, changes in stool habits, hematochezia, melena. : No new urinary complaints, including dysuria, gross hematuria or pyuria. NEURO: No new balance problems, peripheral weakness/paresthesias or numbness of concern. MUSC-SKEL: No new joint pain, swelling, or erythema. PSY: No concerns regarding depression, anxiety or panic. INTEGUMENTARY: No new skin changes (rash, new or changing mole, new growth) ? PHYSICAL EXAMINATION: 62-year-old gentleman moderately obese in no acute distress. BP 152/78 Pulse 64 Temp (Src) 98.4 (Oral) Wt 224 lb (101.6kg) SpO2 98% HEENT: Head is normocephalic, atraumatic. Sclerae white, conjunctivae pink. PEERL. EOMs are intact. Oropharynx is benign. Complexion pale. LYMPHATICS: There is no palpable adenopathy in the neck, supraclavicular region, axillae, or groin. LUNGS: Lungs are clear to percussion and auscultation. diminished breath sounds at bases HEART: Heart is normal without murmurs, + S4 gallops, no rubs. ABDOMEN: Soft and nontender without organomegaly. No masses can be palpated. EXTREMITIES: Are +1 edema. NEUROLOGIC: Exam is physiologic ? LABORATORY DATA: Component Latest Ref Rng AND Units 08/16/2017 08/30/2017 09/13/2017 Hemoglobin, Eduardo 13.0 - 17.0 g/dL 8.8 (L) 9.2 (L) 8.7 (L) Hematocrit, Eduardo 39.0 - 51.0 % 27.2 (L) 28.3 (L) 27.2 (L) BUN 70, Cr 5.66; eGFR 11 ? ? ASSESSMENT: 62-year-old gentleman with chronic anemia secondary to stage V renal failure. patient is tolerating Aranesp injection; his anemia and symptom is improvement.? PLAN: - continue FERREX 150mg twice daily for anemia. - increased Aranesp 100mcg sq every 14 days for anemia of chronic stage V renal failure. monitor HANDH every 14 days and give him Aranesp if hemoglobin is less than 10 gm/dl - follow-up with PCP or hypertension in nephrology for dialysis in the near future. - repeat CBC and iron study OV in 3 months. - refer to Social serviceOpal for distress management. Kamille Srivastava MD Cc: Dr. Abbie Rodriguez CNOVSP Observed: 09/13/2017 Status: COMPLETED Source: [place] 9:40 AM [facility] REPOSITORY Visit (SP) Office (FABI) RODRI GALE ([id number]) 1955 M Date Time Provider Department 09/13/17 9:40 AM KAMILLE SRIVASTAVA During your visit today, we recorded the following information about you: Temperature Pulse Blood pressure Weight 98.4 degrees 64/minute 152/78 101.6 kg Kamille Srivastava MD 09/16/2017 8:28 AM Signed PATIENT NAME: Rodri Gale. CLINIC NO: [id number]. ATTENDING PHYSICIAN: Kamille Srivastava MD. DATE OF SERVICE: . ? DIAGNOSIS: Anemia secondary to chronic/ end-stage renal failure. ? HPI: 62-year-old gentleman with history of hypertension and insulin-dependent type 2 diabetic with retinopathy and chronic renal failure, stage V,not on hemodialysis. He has diabetes mellitus with CKD IV on renal transplant list and retinopathy. ?HbA1c 7.7 on 03/01/17 with subsequent increase Lantus 28 u. /day and Humalog 12 units BID at brkt and supper. ??Rare hypoglycemia Essential hypertension--was normal per patient at Dr Rodriguez's office 2 wks ago. ?No missed doses. Hx of hyperkaliemia. -improved since eating less citrus, history of hyperlipidemia. He also has a history of chronic anemia on FeSO4 once/day. ?Some nausea if med not taken with food. he has no nausea, gastritis, or change in her bowel habit. Denied blood per rectum or melena. ? The patient was seen by Dr. Rodriguez last month for follow-up of his chronic renal failure. He complain of increased fatigue and his hemoglobin was 8.5, hematocrit 25.9. he has been feeling more tired for the last 2 months. Increased shortness of breath and dyspnea exertion. He had trouble sleeping especially night because of sinus congestion versus orthopnea. She has no chest pain or palpitation. He has occasional lightheadedness in the morning. No dizziness or headaches. Increased lethargy and cold intolerance noted. He is taking iron once daily for anemia. Patient had an AV fistula for hemodialysis with Dr. Benjamín Reese last week. No history of previous blood transfusion or family history of anemia or bleeding disorder. He gained over 5 -10 lb in the last 2 months with increased edema. current treatment: Aranesp 60mcg every 14 days Interim history: Patient is doing well with Aranesp injection, he had no blood transfusions. His blood pressure was elevated but today is normal. Patient did well after his AV fistula placement for dialysis last week. He has no headache, chest pain, or shortness of breath.his weight is stable. He recently retired and is somewhat worried about his future. Patient denied symptom of depression. All medications ANDamp; allergies updated and KP Score reviewed by me. REVIEW OF SYSTEMS: ? CONSTITUTIONAL: No fevers, chills, nightsweats, unintended weight loss HEENT: Denies frequent or severe heaches, nasal congestion/sinus symptoms, problematic allergy problems. EYES: No diplopia or blurry vision. CARDIOVASCULAR: No chest pain, dyspnea, palpitations, orthopnea, PND, ankle edema. PULM: No dyspnea, unexplained cough. GI: No dysphagia/odynophagia, problematic reflux, constipation, diarrhea, changes in stool habits, hematochezia, melena. : No new urinary complaints, including dysuria, gross hematuria or pyuria. NEURO: No new balance problems, peripheral weakness/paresthesias or numbness of concern. MUSC-SKEL: No new joint pain, swelling, or erythema. PSY: No concerns regarding depression, anxiety or panic. INTEGUMENTARY: No new skin changes (rash, new or changing mole, new growth) ? PHYSICAL EXAMINATION: 62-year-old gentleman moderately obese in no acute distress. BP 152/78 Pulse 64 Temp (Src) 98.4 (Oral) Wt 224 lb (101.6kg) SpO2 98% HEENT: Head is normocephalic, atraumatic. Sclerae white, conjunctivae pink. PEERL. EOMs are intact. Oropharynx is benign. Complexion pale. LYMPHATICS: There is no palpable adenopathy in the neck, supraclavicular region, axillae, or groin. LUNGS: Lungs are clear to percussion and auscultation. diminished breath sounds at bases HEART: Heart is normal without murmurs, + S4 gallops, no rubs. ABDOMEN: Soft and nontender without organomegaly. No masses can be palpated. EXTREMITIES: Are +1 edema. NEUROLOGIC: Exam is physiologic ? LABORATORY DATA: Component Latest Ref Rng ANDamp; Units 08/16/2017 08/30/2017 09/13/2017 Hemoglobin, Eduardo 13.0 - 17.0 g/dL 8.8 (L) 9.2 (L) 8.7 (L) Hematocrit, Mary Alice 39.0 - 51.0 % 27.2 (L) 28.3 (L) 27.2 (L) BUN 70, Cr 5.66; eGFR 11 ? ? ASSESSMENT: 62-year-old gentleman with chronic anemia secondary to stage V renal failure. patient is tolerating Aranesp injection; his anemia and symptom is improvement.? PLAN: - continue FERREX 150mg twice daily for anemia. - increased Aranesp 100mcg sq every 14 days for anemia of chronic stage V renal failure. monitor HANDamp;H every 14 days and give him Aranesp if hemoglobin is less than 10 gm/dl - follow-up with PCP or hypertension in nephrology for dialysis in the near future. - repeat CBC and iron study OV in 3 months. - refer to Social service Opal for distress management. Kamille Srivastava MD Cc: Dr. Abbie Hutton LPN 09/13/2017 10:20 AM Signed Aranesp injection administered right arm, tolerated well, no immediate adverse reactions noted. Monse Hutton LPN Referring Provider: KAMILLE SRIVASTAVA [[id number]] Allergies As of Date: 09/13/2017 Noted Allergy Reaction BACTRIM (SULFAMETHOXAZOLE) 02/13/2013 4 - Hives LIPITOR (ATORVASTATIN CALCIUM) 10/10/2011 14 - Other: See Comments Comments: myalgia METFORMIN 01/02/2008 2 - Rash NORVASC (AMLODIPINE BESYLATE) 08/31/2014 7 - Swelling Date Reviewed: 09/13/2017 Reviewed by: Marisabel Farrell - Fully Assessed Reason for Visit: Established Patient [[id number]] Primary Visit Diagnosis:Anemia in stage 5 chronic kidney disease, not on chronic dialysis (HCC) [N18.5, D63.1] Other Visit Diagnoses:Type 2 diabetes mellitus with stage 4 chronic kidney disease, with long-term current use of insulin (HCC) [E11.22, N18.4, Z79.4] Chronic kidney disease, stage IV (severe) (HCC) [N18.4] Order(s):[] darbepoetin brain in polysorbat 100 mcg injection (ARANESP)Disp: Rfl: TREATMENT PARAMETERS [[id number]] Order #: [id number]: 1 HEMONC NURSING COMMUNICATION [[id number]] Order #: [id number]: 1 STANDING HEMONC NURSING COMMUNICATION [[id number]] Order #: [id number]: 1 STANDING NaCl 0.9% iv infusionDisp: Rfl: diphenhydrAMINE 50 mg injection (BENADRYL)Disp: Rfl: EPINEPHrine 1 mg/mL (1 mL) 0.3 mg injectionDisp: Rfl: hydrocortisone sodium succinate (PF) 100 mg injection (Solu-CORTEF)Disp: Rfl: Level of Service: EST PATIENT VISIT LEVEL 3 [[id number]] Disposition: Return in about 3 months (around 12/14/2017). Follow-up and Disposition History Recorded Prescriptions as of 09/13/2017 Sig: CALCITRIOL 0.5 MCG CAPSULE Take 0.5 mcg by mouth once da* CALCIUM ACETATE 667 MG TABLET Take 667 mg by mouth three ti* LABETALOL 100 MG TABLET Take 4 tablets by mouth twice* NIFEDIPINE ER 60 MG TABLET,EX* Take 1 tablet by mouth once d* FUROSEMIDE 40 MG TABLET Take 1 tablet by mouth twice * ERGOCALCIFEROL (VITAMIN D2) 5* Take 50,000 Units by mouth q * LOSARTAN 100 MG TABLET Take 1 tablet by mouth once d* INSULIN GLARGINE (U-100) 100 * INJECT 28 (unless active then* INSULIN LISPRO (U-100) 100 UN* Inject 14 Units subcutaneousl* POLYSACCHARIDE IRON COMPLEX 1* Take 1 capsule by mouth twice* ROSUVASTATIN 10 MG TABLET TAKE 1 TABLET DAILY TRIAMCINOLONE ACETONIDE 0.1 %* Apply 1 application to affect* PEN NEEDLE, DIABETIC 31 GAUGE* USE 3 NEEDLES PER DAY INST* BD INSULIN PEN NEEDLE UF MINI* USE ONCE DAILY FINASTERIDE 5 MG TABLET Take 5 mg by mouth once daily. LANCETS Test blood sugar(s) 4 daily. * * BLOOD SUGAR DIAGNOSTIC STRIPS Test blood sugar(s) two times* CALCITRIOL 0.25 MCG CAPSULE Take 1 capsule by mouth once * CHOLECALCIFEROL (VITAMIN D3) * Take 1 capsule by mouth once * Medication notes this encounter INSULIN LISPRO (U-100) 100 UNIT/ML SUBCUTANEOUS PEN >> Marisabel Farrell MA 09/13/2017 9:38 AM >> MARISABEL FARRELL MA SatSep 13, 2017 9:38 AM 12-14 units twice daily. CALCITRIOL 0.25 MCG CAPSULE >> Marisabel Farrell MA 09/13/2017 9:38 AM >> MARISABEL FARRELL MA SatSep 13, 2017 9:38 AM No longer taking this strength. Problem List As Of Date 09/13/2017 Noted Resolved BENIGN HYPERTENSION [I10] Hyperlipidemia LDL goal <100 [E78.5] Sebaceous cyst [L72.3] INVALID FOR*09/20/2016 Erectile Dysfunction [N52.9] INVALID FOR* Osteoarthritis of left knee [M17.12] INVALID FOR* BPH (benign prostatic hyperplasia) [N40.0] INVALID FOR* Tinnitus [H93.19] INVALID FOR* Hearing loss [H91.90] INVALID FOR* 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*INVALID FOR* DM (diabetes mellitus) type II uncontrolled wit*INVALID FOR* Chronic kidney disease, stage IV (severe) ([facility])*INVALID FOR* Fracture of forearm, closed [S52.90XA] INVALID FOR*09/20/2016 Type 2 diabetes mellitus with stage 4 chronic k*INVALID FOR* Essential tremor [G25.0] INVALID FOR* Anemia in stage 5 chronic kidney disease, not o*INVALID FOR* Hypocalcemia [E83.51] INVALID FOR* Vitamin D deficiency [E55.9] INVALID FOR* Visit Notes: >> Monse Hutton LPN SatSep 13, 2017 10:12 AM Status: Signed Aranesp injection administered right arm, tolerated well, no immediate adverse reactions noted. Monse Hutton LPN Encounter Status:Closed by KAMILLE SRIVASTAVA MD on 09/16/17 EDUARDO HEMATOCRIT Collected: 09/13/2017 Status: F Source: [place] 9:28 AM [facility] REPOSITORY TYPE CODE TESTS RESULT OUT OF REFERENCE UNITS RANGE LAB WHCT 39.0-51.0 % Low Eduardo Hematocrit 27.2 Result Comment: Test performed at: [facility], [address] [place] [address]. EDUARDO HEMOGLOBIN Collected: 09/13/2017 Status: F Source: [place] 9:28 AM [facility] REPOSITORY TYPE CODE TESTS RESULT OUT OF REFERENCE UNITS RANGE LAB WHGB 13.0-17.0 g/dL Low Mary Alice Hemoglobin 8.7 Result Comment: Test performed at: [facility], [address] [place] [address]. CNSW Observed: 09/13/2017 Status: COMPLETED Source: [place] 12:00 AM [facility] REPOSITORY Social Work (HEMAWS) RODRI GALE ([id number]) 1955 M Date Time Provider Department 09/13/17 OPAL ZAMBRANO (YAMILET) FABI During your visit today, we recorded the following information about you: JANNETH Bah 09/13/2017 12:23 PM Signed SOCIAL WORK Date of Service: September 13, 2017 Rodri Gale is a 62 year old male being seen for initial social work assessment. At this time, social work service is declined/deferred based on: he is not interested. PLAN: Provider assessed patient need and declined assessment JANNETH Bah Allergies As of Date: 09/13/2017 Noted Allergy Reaction BACTRIM (SULFAMETHOXAZOLE) 02/13/2013 4 - Hives LIPITOR (ATORVASTATIN CALCIUM) 10/10/2011 14 - Other: See Comments Comments: myalgia METFORMIN 01/02/2008 2 - Rash NORVASC (AMLODIPINE BESYLATE) 08/31/2014 7 - Swelling Date Reviewed: 09/13/2017 Reviewed by: Marisabel Farrell - Fully Assessed Reason for Visit: Social Work Services [507] Cmt: decline distress assessment Prescriptions as of 09/13/2017 Sig: CALCITRIOL 0.5 MCG CAPSULE Take 0.5 mcg by mouth once da* CALCIUM ACETATE 667 MG TABLET Take 667 mg by mouth three ti* LABETALOL 100 MG TABLET Take 4 tablets by mouth twice* NIFEDIPINE ER 60 MG TABLET,EX* Take 1 tablet by mouth once d* FUROSEMIDE 40 MG TABLET Take 1 tablet by mouth twice * ERGOCALCIFEROL (VITAMIN D2) 5* Take 50,000 Units by mouth q * LOSARTAN 100 MG TABLET Take 1 tablet by mouth once d* CALCITRIOL 0.25 MCG CAPSULE Take 1 capsule by mouth once * CHOLECALCIFEROL (VITAMIN D3) * Take 1 capsule by mouth once * INSULIN GLARGINE (U-100) 100 * INJECT 28 (unless active then* INSULIN LISPRO (U-100) 100 UN* Inject 14 Units subcutaneousl* POLYSACCHARIDE IRON COMPLEX 1* Take 1 capsule by mouth twice* ROSUVASTATIN 10 MG TABLET TAKE 1 TABLET DAILY TRIAMCINOLONE ACETONIDE 0.1 %* Apply 1 application to affect* PEN NEEDLE, DIABETIC 31 GAUGE* USE 3 NEEDLES PER DAY INST* BD INSULIN PEN NEEDLE UF MINI* USE ONCE DAILY FINASTERIDE 5 MG TABLET Take 5 mg by mouth once daily. LANCETS Test blood sugar(s) 4 daily. * * BLOOD SUGAR DIAGNOSTIC STRIPS Test blood sugar(s) two times* Problem List As Of Date 09/13/2017 Noted Resolved BENIGN HYPERTENSION [I10] Hyperlipidemia LDL goal <100 [E78.5] Sebaceous cyst [L72.3] INVALID FOR*09/20/2016 Erectile Dysfunction [N52.9] INVALID FOR* Osteoarthritis of left knee [M17.12] INVALID FOR* BPH (benign prostatic hyperplasia) [N40.0] INVALID FOR* Tinnitus [H93.19] INVALID FOR* Hearing loss [H91.90] INVALID FOR* 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*INVALID FOR* DM (diabetes mellitus) type II uncontrolled wit*INVALID FOR* Chronic kidney disease, stage IV (severe) (HCC)*INVALID FOR* Fracture of forearm, closed [S52.90XA] INVALID FOR*09/20/2016 Type 2 diabetes mellitus with stage 4 chronic k*INVALID FOR* Essential tremor [G25.0] INVALID FOR* Anemia in stage 5 chronic kidney disease, not o*INVALID FOR* Hypocalcemia [E83.51] INVALID FOR* Vitamin D deficiency [E55.9] INVALID FOR* Encounter Status:Closed by OPAL ZAMBRANO on 09/13/17 DISCHARGE INSTRUCTION Observed: 09/12/2017 Status: F Source: [place] 6:10 AM [facility] REPOSITORY [facility] Medical Records Department [address] [place] [address] Instructions for Home/Discharge Instructions 09/11/17 1155 MR#: [id number] Acct: [id number] Name: RODRI GALE Rep #: [id number] : 1955 62 From: Benjamín Reese MD PCP: Brett Reese III, MD Status: DEP [facility] Discharge Diet: Renal Diet Discharge Activity: May Not Drive - for 2-3 days or while taking narcotic pain medications., May Shower, May Take a Tub Bath - in 5 days. Lifting Restrictions: 5 pounds Keep extremity elevated above heart level: - - Keep arm elevated above the heart level for 3 days. Additional Activity Instructions:: Exercise hand vigorously with a stress ball. Call your doctor if your incision/area has: Continuous Slow Oozing, Sudden Increased Bleeding - apply pressure and call your doctor., Increased Pain/ Swelling, Increased Redness, Foul Smelling Discharge Call your doctor if you observe: Fever of 101 or Higher Suture Line Care: Avoid Pulling/Pushing, Avoid Pinching/Bending Cleanse incision/area with: Keep Dressing Clean AND Dry Additional Dressing/Incision Instructions:: Change or remove dressing in two day. May protect with a gauze bandaid. Allergies/Adverse Reactions: Allergies metformin Allergy (Verified 09/09/17 11:45) Itching Sulfa (Sulfonamide Antibiotics) Allergy (Verified 09/09/17 11:45) Swelling Medications to take at Discharge Insulin Glargine [Lantus SoloStar Pen] 28 units SC DAILY 04/07/13 calcitriol 0.25 mcg capsule 0.25 mcg PO QDAY 07/10/17 finasteride 5 mg tablet 5 mg PO QDAY 07/10/17 furosemide 20 mg tablet 40 mg PO BID 07/10/17 labetalol 100 mg tablet 400 mg PO BID 07/10/17 losartan 50 mg tablet 100 mg PO QDAY 07/10/17 rosuvastatin 10 mg tablet 10 mg PO QDAY 07/10/17 Ergocalciferol [Vitamin D] 50,000 unit PO X1 08/19/17 Insulin Lispro [Humalog] 10 - 12 unit SC BID 08/19/17 Iron Polysaccharide Complex [Ferrex 150] 150 mg PO DAILYCM 08/19/17 Iron Sucrose Complex [Venofer] 100 mg IV X1 09/09/17 Nifedipine [Nifedipine ER] 60 mg PO DAILY 09/09/17 Primary Care Physician: Brett Reese III, MD [Primary Care Provider] - Please Follow Up With: Benjamín Reese MD - [phone] When: Call to make an appointment for suture removal and follow up in 10 days. 09/12/17 0610 <Electronically signed by Benjamín Reese MD> Date Benjamín Reese MD CC: Brett Reese III, MD BEDSIDE GLUCOSE Collected: 09/11/2017 Status: F Source: [place] 2:15 PM [facility] REPOSITORY TYPE CODE TESTS RESULT OUT OF RANGE REFERENCE UNITS LAB L501.080 70-110 mg/dL Normal BEDSIDE GLU 109 Result Comment: MANAGEMENT OF PATIENT CARE PER NURSING PROTOCOL Performed By: #### L501.080 #### [facility] Point of Care [address] [place] [address] OPERATIVE REPORT Observed: 09/11/2017 Status: F Source: [place] 1:45 PM [facility] REPOSITORY [facility] Medical Records Department [address] [place] [address] Operative Report 09/11/17 1341 MR#: [id number] Acct: [id number] Name: RODRI GALE Rep #: [id number] : 1955 62 From: Benjamín Reese MD PCP: Brett Reese III, MD Status: REG SDC Y Location: [address] Problem List (1) Renal failure Status: Acute Qualifiers: Renal failure chronicity: chronic Chronic kidney disease stage: stage 4 (severe) Qualified Code(s): N18.4 - Chronic kidney disease, stage 4 (severe) Report of Operation Date of Procedure: 09/11/17 Pre-Operative Diagnosis: Stage IV renal insufficiency Post-Operative Diagnosis: Same Surgery/Procedure Performed:: Left forearm radiocephalic arteriovenous fistula creation Description of Surgical Findings:: Timeout and informed consent was obtained. A 62-year-old gent was taken out from. He was placed on the table. He initially underwent monitored anesthesia care. Due to restlessness that was eventually converted to a general anesthesia. Left upper extremity was sterilely prepped and draped. Ancef 2 g given intravenous preoperatively. 1% lidocaine mixed 50-50 with 0.5% Marcaine was used as local anesthetic. Total 10 cc was used. Ultrasound was used to map the course of the left forearm cephalic vein. Local was instilled. A transverse oblique incision was created. Sharp blunt dissection was used to dissect free the cephalic vein. It was partially mobilized to allow for more superficial elevation. Then sharp and blunt dissection was used to identify the radial artery. Circumferential control was obtained. The patient received also needs of heparin IV. After adequate circling time peripheral vascular clamps are placed on the radial artery and 11 blade was used to make an arteriotomy which was extended with Dugan scissors. The vein was secured distally with a Hemoclip and then it was spatulated to length. A end-to-side anastomosis was created with a running 7-0 Prolene. Prior to completion there appear to be good antegrade and retrograde flow. The anastomosis was completed with good positional lie. There was a good pulse thrill and bruit. Hemostasis was intact. The wound was closed with deep layer of interrupted 4-0 Vicryl. Skin edges approximately running septic or 4-0 Monocryl. Steri-Strips Telfa tape dressings applied. Sponge instrument and needle counts were reported to the surgeon to be correct. Blood loss minimal. No apparent complications. The hand was viable at the completion. He was taken to the recovery area in satisfactory condition without apparent complication. Progress and prognosis are felt to be good. Benjamín Reese M.D., F.A.C.S. Type of Anesthesia:: General Anesthesiologist: Nikolas Morales 09/11/17 3928 <Electronically signed by Benjamín Reese MD> Date Benjamín Reese MD CC: Brett Reese III, MD; Benjamín Reese MD Signed BEDSIDE GLUCOSE Collected: 09/11/2017 Status: F Source: [place] 10:31 AM [facility] REPOSITORY TYPE CODE TESTS RESULT OUT OF REFERENCE UNITS RANGE LAB L501.080 70-110 mg/dL High BEDSIDE GLU 125 Result Comment: MANAGEMENT OF PATIENT CARE PER NURSING PROTOCOL Performed By: #### L501.080 #### [facility] Point of Care [address] [place] [address] 12 LEAD ELECTROCARDIOGRAM Observed: 09/10/2017 Status: F Source: [place] 2:24 PM [facility] REPOSITORY [facility] Cardiovascular Services [address] [place] [address] 12 Lead EKG 09/09/17 1334 MR#: [id number] Acct: [id number] Name: RODRI GALE Rep #: [id number] : 1955 62 From: Mata Smalls MD Attending Dr: Benjamín Reese MD Status: PRE [facility] Ordering Dr: Benjamín Reese MD Date: 09/09/17 Location: [facility] Sex: M C Admitted: Test Reason : PREOP Blood Pressure : / mmHG Vent. Rate : 068 BPM Atrial Rate : 068 BPM P-R Int : 162 ms QRS Dur : 098 ms QT Int : 464 ms P-R-T Axes : 057 030 056 degrees QTc Int : 493 ms Normal sinus rhythm Nonspecific T wave abnormality Prolonged QT Abnormal ECG Confirmed by MATA SMALLS MD ([id number]), manuscript editor LEDY SAMPSON ([id number]) on 09/10/2017 2:23:47 PM Referred By: Benjamín Reese Confirmed By:MATA SMALLS MD 09/10/17 1423 Date Mata Smalls MD CC: Brett Reese III, MD; Benjamín Reese MD Signed RENAL PROFILE Collected: 09/10/2017 Status: F Source: [place] 6:00 AM [facility] REPOSITORY TYPE CODE TESTS RESULT OUT OF RANGE REFERENCE UNITS LAB L501.0100 74-106 mg/dL High GLU 138 Result Comment: Fasting Glucose result greater than or equal to 126 mg/dL suggests DIABETES MELLITUS per A.D.A. criteria. Please note revised GLUCOSE reference range effective 2017. LAB L501.1000 7-18 mg/dL High BUN 88 LAB L501.1100 0.70-1.30 mg/dL High alert CREAT,SERUM 7.54 Result Comment: The validity of the calculated GFR AND GFRAA in patients over 70 years has not been determined. Clinical correlation is essential. LAB L501.1110 >60 mL/min Low EST GFR 8 Result Comment: Non- GFR Calc LAB L501.1115 >60 mL/min Low EST GFR - AA 10 Result Comment: GFR Calc LAB L501.1300 10-20 RATIO Normal BUN/CRE 11.7 LAB L501.1800 3.2-5.0 g/dL Normal ALB 3.3 LAB L501.2200 8.5-10.1 mg/dL Low CA 7.8 LAB L501.2300 2.5-4.9 mg/dL High PHOS 5.9 LAB L501.5300 136-145 mmol/L NA Normal 144 LAB L501.5600 3.5-5.1 mmol/L K Normal 3.9 LAB L501.5900 98-107 mmol/L High CL 112 LAB L501.6100 21.0-32.0 mmol/L Low CO2 19.0 Performed By: #### L500.3600, L503.6075, L503.6150, L503.6550 #### [facility] [address] [place], [place], [id number] IRON BINDING Collected: 09/10/2017 Status: F Source: [place] CAPACITY,TOTAL 6:00 AM [facility] REPOSITORY TYPE CODE TESTS RESULT OUT OF RANGE REFERENCE UNITS LAB L503.6075 250-450 ug/dL Normal TIBC 273 Performed By: #### L500.3600, L503.6075, L503.6150, L503.6550 #### [facility] [address] [place], [address] IRON Collected: 09/10/2017 Status: F Source: [place] 6:00 AM [facility] REPOSITORY TYPE CODE TESTS RESULT OUT OF RANGE REFERENCE UNITS LAB L503.6150 65-175 ug/dL High IRON 219 Performed By: #### L500.3600, L503.6075, L503.6150, L503.6550 #### [facility] [address] [place], [address] FERRITIN Collected: 09/10/2017 Status: F Source: [place] 6:00 AM [facility] REPOSITORY TYPE CODE TESTS RESULT OUT OF RANGE REFERENCE UNITS LAB L503.6550 26-388 ng/mL Normal FERRITIN 303 Performed By: #### L500.3600, L503.6075, L503.6150, L503.6550 #### [facility] [address] [place], [address] PTHIN Collected: 09/10/2017 Status: F Source: [place] 6:00 AM [facility] REPOSITORY TYPE CODE TESTS RESULT OUT OF RANGE REFERENCE UNITS LAB L509.1000 18.4-80.1 pg/mL High PTHIN 261.5 Result Comment: Please Note: PTH INTACT METHOD AND REFERENCE RANGE CHANGE Effective 06/26/2017. Performed By: #### L509.1000 #### [facility] [address] [place], [address] CBC-COMPLETE BLOOD CNT Collected: 09/09/2017 Status: F Source: [place] NO DIFF 1:19 PM [facility] REPOSITORY TYPE CODE TESTS RESULT OUT OF RANGE REFERENCE UNITS LAB L100.1000 4.4-11.0 K/mm3 Normal WBC 7.5 LAB L100.1200 4.6-6.2 M/mm3 Low RBC 2.97 LAB L100.1300 13.0-16.5 g/dl Low HGB 9.1 LAB L100.1400 40-54 % Low HCT 27.7 LAB L100.1500 80-94 fL Normal MCV 93.3 LAB L100.1600 27.0-32.0 pg Normal MCH 30.6 LAB L100.1700 32-36 g/gl Normal MCHC 32.9 LAB L100.1810 11.6-14.6 % Normal RDW CV 13.1 LAB L100.1820 35.1-43.9 fl Normal RDW SD 43.8 LAB L100.1900 150-450 K/mm3 Normal PLT 220 LAB L100.2000 6.2-12.0 fl Normal MPV 10.9 Performed By: #### L100.0500 #### [facility] [address] [place], [address] BASIC METABOLIC Collected: 09/09/2017 Status: F Source: [place] PROFILE (BMP) 1:19 PM [facility] REPOSITORY TYPE CODE TESTS RESULT OUT OF RANGE REFERENCE UNITS LAB L501.0100 74-106 mg/dL High GLU 147 Result Comment: Fasting Glucose result greater than or equal to 126 mg/dL suggests DIABETES MELLITUS per A.D.A. criteria. Please note revised GLUCOSE reference range effective 2017. LAB L501.1000 7-18 mg/dL High BUN 90 LAB L501.1100 0.70-1.30 mg/dL High alert CREAT,SERUM 7.55 Result Comment: Critical Result(s) Called Sarath PALMA at: 15:30:15 09/09/2017 by: DIEGO GODDARD The validity of the calculated GFR AND GFRAA in patients over 70 years has not been determined. Clinical correlation is essential. LAB L501.1110 >60 mL/min Low EST GFR 8 Result Comment: Non- GFR Calc LAB L501.1115 >60 mL/min Low EST GFR - AA 9 Result Comment: GFR Calc LAB L501.1300 10-20 RATIO Normal BUN/CRE 11.9 LAB L501.2200 8.5-10.1 mg/dL Low CA 7.8 LAB L501.5300 136-145 mmol/L NA Normal 145 LAB L501.5600 3.5-5.1 mmol/L K Normal 3.9 LAB L501.5900 98-107 mmol/L High CL 111 LAB L501.6100 21.0-32.0 mmol/L Low CO2 19.0 LAB L501.6200 5-15 Normal GAP 15 Performed By: #### L500.2500 #### [facility] [address] [place], [address] PROGRESS Observed: 09/03/2017 Status: COMPLETED Source: [place] 1:13 PM [facility] REPOSITORY HNO ID: [id number] Author: Lisbet Monk LPN Service: (none) Author Type: (none) Type: Progress Notes Filed: 09/03/2017 1:38 PM Note Text: Manual Readin/86 Pulse: 64 BP Kenrick average: 219/90 P: 60 Reason for blood pressure check - Last BP elevated and Medication adjustment Patient is: Taking medication as prescribed Yes Took medication today Yes If no, date medication last taken N/A Experiencing side effects No BP continued to be elevated at nurse visit 08/30/17. Labetalol was increased to 500mg twice daily. Tolerating medication change well. Denies any chest pain, unusual shortness of breath, or headaches. Has noted dizziness with medication change. Weaning caffeine use; only iced tea now. Past personal history of tobacco use; no current exposure. Alert and oriented. Pt has been identified by name and birthdate: Yes Allergies reviewed: Yes Latex allergy: no. Medication - prescribed and OTC reviewed and updated: Yes Do you need any prescription refills prior to your next visit: No Health Maintenance: Reviewed and not up to date and provider notified Patient advised that he would be contacted after review by PCP. 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: No Is patient in pain?: No Allergies metformin Allergy (Verified 08/30/17 15:45) Itching Sulfa (Sulfonamide Antibiotics) Allergy (Verified 08/30/17 15:45) Swelling Medications Insulin Glargine [Lantus SoloStar Pen] 28 units SC DAILY 04/07/13 [History Confirmed 08/30/17] calcitriol 0.25 mcg capsule 0.25 mcg PO QDAY 07/10/17 [History Confirmed 08/30/17] finasteride 5 mg tablet 5 mg PO QDAY 07/10/17 [History Confirmed 08/30/17] furosemide 20 mg tablet 80 mg PO DAILY 07/10/17 [History Confirmed 08/30/17] labetalol 100 mg tablet 400 mg PO BID 07/10/17 [History Confirmed 08/30/17] losartan 50 mg tablet 100 mg PO QDAY 07/10/17 [History Confirmed 08/30/17] rosuvastatin 10 mg tablet 10 mg PO QDAY 07/10/17 [History Confirmed 08/30/17] Ergocalciferol [Vitamin D] 50,000 unit PO 08/19/17 [History Confirmed 08/30/17] Insulin Lispro [Humalog] 10 - 12 unit SC 08/19/17 [History Confirmed 08/30/17] Iron Polysaccharide Complex [Ferrex 150] 150 mg PO DAILYCM 08/19/17 [History Confirmed 08/30/17] PFSH Medical History Renal failure (Acute) Essential hypertension (Acute) Type II diabetes mellitus (Acute) Hypercholesterolemia (Acute) Hyperglycemia due to type 1 diabetes mellitus (Acute) Anemia (Acute) Open fracture at right wrist or hand level (Acute) Family History Mother Diabetes Hypertension Heart disease Cancer lung Brother Diabetes Father Diabetes Cancer pancreas Social History Smoking Status: Never smoker HPI HPI HPI: RODRI GALE, is a 62 M who presents to the office today for repeat preoperative surgical evaluation. The patient returns at my request. His previous notes are as follows. I was contemplating a transposition left upper extremity basilic vein to brachial artery AV fistula creation. This was based upon preoperative vein mapping suggesting a very diminutive cephalic vein. I did ask the patient to return today so I could further inspect the left forearm cephalic vein. His previous notes are as follows. I anticipate changing the surgical approach Intake Vital Signs 08/21/17 Height 5 ft 10 in 08/21/17 Weight: 224 lb 08/21/17 Body Mass Index (BMI) 32.1 08/21/17 Blood Pressure 218/93 08/21/17 Blood Pressure Location Lt brachial 08/21/17 Blood Pressure Position Sitting 08/21/17 Respiratory Rate 18 08/21/17 Pulse Rate 66 Intake Visit Reasons: F/U VEIN MAPPING Chief Complaint: VENOFER Missionary Coordinator Required: No Is patient in pain?: No Allergies metformin Allergy (Verified 08/21/17 14:46) Itching Sulfa (Sulfonamide Antibiotics) Allergy (Verified 08/21/17 14:46) Swelling Medications Insulin Glargine [Lantus SoloStar Pen] 28 units SC DAILY 04/07/13 [History Confirmed 08/21/17] Nifedipine [Nifedipine ER] 60 mg PO DAILY 06/16/14 [History Confirmed 08/21/17] calcitriol 0.25 mcg capsule 0.25 mcg PO QDAY 07/10/17 [History Confirmed 08/21/17] finasteride 5 mg tablet 5 mg PO QDAY 07/10/17 [History Confirmed 08/21/17] furosemide 20 mg tablet 40 mg PO DAILY 07/10/17 [History Confirmed 08/21/17] labetalol 100 mg tablet 300 mg PO BID 07/10/17 [History Confirmed 08/21/17] losartan 50 mg tablet 100 mg PO QDAY 07/10/17 [History Confirmed 08/21/17] rosuvastatin 10 mg tablet 10 mg PO QDAY 07/10/17 [History Confirmed 08/21/17] Ergocalciferol [Vitamin D] 50,000 unit PO 08/19/17 [History Confirmed 08/21/17] Insulin Lispro [Humalog] 10 - 12 unit SC 08/19/17 [History Confirmed 08/21/17] Iron Polysaccharide Complex [Ferrex 150] 150 mg PO DAILYCM 08/19/17 [History Confirmed 08/21/17] [facility] Medical History Renal failure (Acute) Essential hypertension (Acute) Type II diabetes mellitus (Acute) Hypercholesterolemia (Acute) Hyperglycemia due to type 1 diabetes mellitus (Acute) Anemia (Acute) Open fracture at right wrist or hand level (Acute) Family History Mother Diabetes Hypertension Heart disease Cancer lung Brother Diabetes Father Diabetes Cancer pancreas Social History Smoking Status: Never smoker HPI HPI HPI: RODRI GALE, is a 62 M who presents to the office today for ongoing surgical consultation regarding dialysis access. My previous notes as listed below demonstrated initial request for peritoneal dialysis catheters. 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 That might make him a better future candidate. The patient is going to [facility] soon for initial consultation regarding renal transplant. The patient currently is having troubles with malignant hypertension for which Dr. Abbie Rodriguez and Dr. Brett Reese III are addressing. The patient also is having problems with apparently anemia of undetermined etiology. He has been treated with IV infusion. The patient has had a traumatic injury to his right upper extremity precluding it for AV access. The patient had left upper extremity vein mapping as noted below. He is a candidate for left upper extremity AV fistula creation MR#: [id number]:[id number] Name: RODRI GALE ARep #:[id number] : 1955 62From: Benjamín Reese MD Attending Dr: Hugh LYNCH,[facility]: [place] [address] Ordering Dr: Benjamín Reese MDDate: 07/16/17 [facility]: Reason For Study: N17.9, N18.4 Left Arm Left cephalic vein is compressible. Left Cephalic Vein at the shoulder measures .348 x .355 cm. Left Cephalic Vein at mid bicep measures .190 x .189 cm. Left Cephalic Vein above antecub measures .194 x .179 cm. Left Cephalic Vein below antecub measures .154 x .145 cm. Left Cephalic Vein in the forearm measures .194 x .185 cm. Left Cephalic Vein at the wrist measures .269 x .279 cm. Left basilic vein is compressible. Basilic vein at origin measures .348 x .374 cm. Basilic vein above antecub measures .424 x .448 cm. Basilic vein below antecub measures .235 x .234 cm. Basilic vein in the forearm measures .254 x .235 cm. Basilic vein at the wrist measures .209 x .229 cm. Brachial artery 99.0 cm/s. Brachial artery .459 x .498 cm. Radial artery 105 cm/s. Radial artery .239 x .249 cm. < Interpretation Summary Small left upper extremity cephalic vein. Adequate left upper arm basilic vein. Normal flow left radial and brachial arteries. Ordering Physician: Benjamín Reese Performed By: Chance Damon RVT 07/16/17 1723 Date Benjamín Reese MD Intake Visit Reasons: NEEDS PD CATHETER Chief Complaint: PD cath Missionary Coordinator Required: No Is patient in pain?: No Allergies metformin Allergy (Verified 07/10/17 15:44) Itching Sulfa (Sulfonamide Antibiotics) Allergy (Verified 07/10/17 15:44) Swelling Medications Insulin Glargine [Lantus SoloStar Pen] 54 units SC QHS 04/07/13 [History Confirmed 07/10/17] Insulin Aspart [Novolog Flexpen] 5 units SC BREAKFAST 06/16/14 [History Confirmed 07/10/17] Nifedipine [Nifedipine ER] 60 mg PO DAILY 06/16/14 [History Confirmed 07/10/17] Insulin Aspart [Novolog Flexpen ([facility]KC)] 10 units SC DINNER 06/07/15 [History Confirmed 07/10/17] calcitriol 0.25 mcg capsule 0.25 mcg PO QDAY 07/10/17 [History Confirmed 07/10/17] finasteride 5 mg tablet 5 mg PO QDAY 07/10/17 [History Confirmed 07/10/17] furosemide 20 mg tablet 20 mg PO QDAY 07/10/17 [History Confirmed 07/10/17] labetalol 100 mg tablet 100 mg PO BID 07/10/17 [History Confirmed 07/10/17] losartan 50 mg tablet 50 mg PO QDAY 07/10/17 [History Confirmed 07/10/17] rosuvastatin 10 mg tablet 10 mg PO QDAY 07/10/17 [History Confirmed 07/10/17] PFSH Medical History Renal failure (Acute) Essential hypertension (Acute) Type II diabetes mellitus (Acute) Hypercholesterolemia (Acute) Hyperglycemia due to type 1 diabetes mellitus (Acute) Anemia (Acute) Open fracture at right wrist or hand level (Acute) Family History Mother Diabetes Hypertension Heart disease Cancer lung Brother Diabetes Father Diabetes Cancer pancreas Social History Smoking Status: Never smoker HPI HPI HPI: RODRI AGLE, is a 62 M who presents to the office today for consideration of peritoneal dialysis catheters. He is referred by Dr. Abbie Rodriguez for surgical consultation regarding PD catheters and a written copy of my surgical consult recommendations will be returned to her. The patient's been diabetic for at least 20 years. Current problems include a rather rapidly progressing renal insufficiency. As of June 06, 2017 BUN was 16 creatinine 5.33 with an estimated GFR of 12. It is also of note that he has a hemoglobin of 9.2 hematocrit of 28.3 and a platelet count of 205,000. More recently on June 21 his BUN was 7 and creatinine 5.66 with a estimated GFR of 11 His right arm dominant but he had a significant injury to his right hand requiring 2 separate operations. He has indwelling orthopedic devices. ROS General General: Yes weight change and fatigue; no appetite, colon cancer, breast cancer or weakness HEENT HEENT: No difficulty swallowing, eye injury, eye surgery, swollen glands or hoarseness Endo Endocrine: Yes diabetes mellitus; no thyroid disease, thyroid cancer, Hair loss, heat intolerance or cold intolerance Skin Skin: No rash or changing moles Breast Breast: No left breast lump, right breast lump, nipple discharge, breast pain, abnormal mammogram, abnormal US or breast enlargement Musc Musculoskeletal: Yes back problems and arthritis; no rheumatoid arthritis, gout or joint pain Cardio Cardiovascular: Yes high blood pressure; no murmur, pacemaker, heart disease, atrial fibrillation, heart attack, heart stent, palpitations, shortness of breat with exertion or chest pain Psych Psychiatric: No depression, anxiety or hearing voices Resp Respiratory: No shortness of breath, No sleep apnea, Yes cough, No COPD, No asthma, No emphysema, No wheezing Gastro Gastrointestinal: No abdominal pain, No nausea or vomiting, No diarrhea, No constipation, No blood in stool, No acid reflux, No hemorrhoids, No ulcers, No gallbladder problem, No black,tarry stools Ryder Hematologic: No blood thinners, No blood disorders, No bleeding, Yes anemia, No blood clots Neuro Neurologic: No system reviewed and no additional complaints, except as docu, No as per HPI, No abnormal walking, No abnormal hearing, No abnormal movements, No abnormal speech, No behavioral changes, No burning sensations, No confusion, No seizure-like activity, No unsteadiness, No dizziness, No localized weakness, No frequent falls, No headache(s), No lack of coordination, No loss of vision, No memory loss, No numbness, No other visual disturbances, No radiating pain, No restless legs, No sensory deficit, No fainting, No tingling, No tremor(s), No weakness, No other Exam Const General: cooperative, no acute distress Nutritional Appearance: average body habitus Orientation: alert, awake, oriented x3 HENMT Head: normal to inspection Eyes General: appearance normal, both eyes and all related structures Neck Neck: normal visual inspection Chest Chest palpation AND inspection: normal inspection of the chest Breast Palpation: No nipple discharge Resp Auscultation: clear to auscultation bilaterally Cardio Rate: regular rate Rhythm: regular rhythm Heart Sounds: no murmurs GI Palpation: soft, no hepatosplenomegaly Auscultation: normal bowel sounds Skin General: dry skin Neuro General: CN's II-XI intact bilaterally Extrem Other: 3+ nonpitting edema bilateral lower extremities Vertical incisions right forearm with soft tissue loss 3+ left radial pulse. Psych Affect: normal affect Assessment AND Plan Problems 1. Renal failure N19 Plan 62-year-old gentleman with stage IV renal failure. Unfortunately he still is working in a dirty environment. His shirt and slacks demonstrate evidence of a work environment. He is referred for consideration of peritoneal dialysis catheter placement. The patient is hoping to work still for 2 more months. I do not feel comfortable placing the peritoneal dialysis catheters while he is still working in such an environment. It would appear however that his renal function is to the degree that waiting an additional 2 months prior to placing the peritoneal dialysis catheters may not be in his best interest either. His right arm has had extensive orthopedic intervention and is not a candidate for a fistula. He is right arm dominant. At this point I would recommend obtaining venous duplex imaging of his left upper extremity. If a good cephalic vein and radial arteries identified then I would recommend proceeding directly with a left forearm radial to cephalic arteriovenous fistula creation. That could possibly be used to temporize dialysis needs depending upon his ongoing renal function. If then the patient were to retire we could then in the future consider converting and placing a laparoscopic peritoneal dialysis catheter when he would no longer be exposed to his work environment. He is well aware as is his that he is at risk at any point for requiring more urgent dialysis and for that tunneled dialysis catheters would need to be placed. He and his have had an opportunity to extensively ask and have questions answered. The patient is very much interested if possible in being able to continue to work for the next couple months. With that in mind we will urgently pursue duplex imaging of his left arm and then possible fistula creation if it that seems feasible. In the future we certainly could convert to peritoneal dialysis when appropriate. The patient is very much aware of the critical nature of good hygiene particularly for the peritoneal catheters I very much appreciate the kind opportunity of assisting with his surgical care Patient will be seeing this week yet to address his iron deficiency Cc Dr. Abbie Rodriguez, Dr. Srivastava, Dr. Brett Reese M.D., F.A.C.S. Orders ROS General General: Yes weight change and fatigue; no appetite, colon cancer, breast cancer or weakness HEENT HEENT: No difficulty swallowing, eye injury, eye surgery, swollen glands or hoarseness Endo Endocrine: Yes diabetes mellitus; no thyroid disease, thyroid cancer, Hair loss, heat intolerance or cold intolerance Skin Skin: No rash or changing moles Breast Breast: No left breast lump, right breast lump, nipple discharge, breast pain, abnormal mammogram, abnormal US or breast enlargement Musc Musculoskeletal: Yes back problems and arthritis; no rheumatoid arthritis, gout or joint pain Cardio Cardiovascular: Yes high blood pressure; no murmur, pacemaker, heart disease, atrial fibrillation, heart attack, heart stent, palpitations, shortness of breat with exertion or chest pain Psych Psychiatric: No depression, anxiety or hearing voices Resp Respiratory: No shortness of breath, No sleep apnea, Yes cough, No COPD, No asthma, No emphysema, No wheezing Gastro Gastrointestinal: No abdominal pain, No nausea or vomiting, No diarrhea, No constipation, No blood in stool, No acid reflux, No hemorrhoids, No ulcers, No gallbladder problem, No black,tarry stools Ryder Hematologic: No blood thinners, No blood disorders, No bleeding, Yes anemia, No blood clots Neuro Neurologic: No weakness Exam Chest Breast Palpation: No nipple discharge Cardio Heart Sounds: no murmurs Assessment AND Plan 1. Stage 4 chronic kidney disease N18.4 Plan I am proposing for the patient a transposed left upper extremity basilic vein to brachial artery arteriovenous fistula creation. I have personally performed ultrasound of the left upper extremity and the basilic vein actually remains quite generous past the antecubital crease onto the ulnar for her arm. The patient has quite muscular arms. I believe that a stepwise incision bridging the antecubital space gaining more length from the basilic vein would then allow for a very generous transposed upper arm basilic vein to brachial artery AV fistula creation. I have discussed the technique, benefits, risks, alternatives. The patient is aware that his iron deficiency and hypertension continue to need maximum treatment. We will tentatively schedule his surgical procedure in approximately 3 weeks allowing for improved medical status. He has had an opportunity to ask and have questions answered. I believe that an AV fistula would place him in a good future situation to receive dialysis. Pending his ongoing progress and care could still consider a future peritoneal dialysis catheter placement at his discretion. Due to the complexity of the AV fistula I would prefer not try to combine both these procedures at once. Cc: Dr. Abbie Rodriguez and Dr. Brett Reese, III Benjamín Reese M.D., F.A.C.S. Coding Level of Care Code Off vis,est,level 2 Diagnoses Stage 4 chronic kidney disease N18.4 Renal failure chronicity: chronic Chronic kidney disease stage: stage 4 (severe) 08/21/17 1523<Electronically signed by Benjamín Reese MD> Date Benjamín Hernandezigner Signature:Date (if applicable) CC: Abbie Rodriguez DO; Brett Reese III, MD Assessment AND Plan 1. Stage 4 chronic kidney disease N18.4 Plan On repeat review today I inspected the left forearm cephalic vein. It tends to take a curvature slightly on to the dorsal aspect at the wrist but then it appears to be rather superficial and travel nicely to the antecubital space where it does seem to cross fill to the basilic vein. It appears that the upper arm cephalic vein is more diminutive. As the patient has had previous orthopedic injury to his right forearm is not a excellent candidate for a right upper extremity fistula I am proposing for him initiating attempt creation of the fistula with a left forearm radiocephalic arteriovenous fistula creation. I have discussed with him the technique, benefits, risks, alternatives. He is aware that this is less surgery than previously proposed. He is agreeable to this approach. Also on today's visit the patient discussed future need for colonoscopy secondary to the iron deficiency. The patient is already scheduled for the AV fistula. Once he is sufficiently healed we will proceed with a colonoscopy to assist with the iron deficiency problems. He may also require an upper endoscopy at that same setting. Benjamín Reese M.D., F.A.C.S. Coding Level of Care Code Off vis,est,level 2 Diagnoses Stage 4 chronic kidney disease N18.4 Renal failure chronicity: chronic Chronic kidney disease stage: stage 4 (severe) 08/30/17 1616 <Electronically signed by Benjamín Reese MD> Date Benjamín Reese MD Cosigner Signature: Date (if applicable) CC: PROGRESS Observed: 08/30/2017 Status: COMPLETED Source: [place] 1:39 PM [facility] REPOSITORY HNO ID: [id number] Author: Lisbet Monk LPN Service: (none) Author Type: (none) Type: Progress Notes Filed: 08/30/2017 2:11 PM Note Text: Manual Readin/88 Pulse: 70 BP Kenrick average: 220/85 P: 63 Reason for blood pressure check - Last BP elevated and Medication adjustment Patient is: Taking medication as prescribed Yes Took medication today Yes If no, date medication last taken N/A Experiencing side effects No BP was elevated at last appt 08/22/17. Lasix was increased to 40mg twice daily and Labetalol was increased to 400mg twice daily. Tolerating medication changes well. Swelling has improved per pt. Denies any chest pain, unusual shortness of breath, dizziness, or headaches. Weaning caffeine use. Past personal history of tobacco use; no current exposure. Alert and oriented. Pt has been identified by name and birthdate: Yes Allergies reviewed: Yes Latex allergy: no. Medication - prescribed and OTC reviewed and updated: Yes Do you need any prescription refills prior to your next visit: No Health Maintenance: Reviewed and not up to date and provider notified Spoke with Dr Reese and patient to increase Labetalol to 500mg twice daily. Lisbet Monk LPN EDUARDO HEMATOCRIT Collected: 08/30/2017 Status: F Source: [place] 7:53 AM [facility] REPOSITORY TYPE CODE TESTS RESULT OUT OF REFERENCE UNITS RANGE LAB WHCT 39.0-51.0 % Low Mary Alice Hematocrit 28.3 Result Comment: Test performed at: [address] [place] [address]. EDUARDO HEMOGLOBIN Collected: 08/30/2017 Status: F Source: [place] 7:53 AM [facility] REPOSITORY TYPE CODE TESTS RESULT OUT OF REFERENCE UNITS RANGE LAB WHGB 13.0-17.0 g/dL Low Eduardo Hemoglobin 9.2 Result Comment: Test performed at: [address] [place] [address]. HLA-DRB1/3/4/5 AND DQB1 Collected: 08/23/2017 Status: F Source: [facility] LR TYPING 4:11 PM [facility] REPOSITORY TYPE CODE TESTS RESULT OUT OF REFERENCE UNITS RANGE LAB DN2LR(LOINC ) HLA-DRB1/3/4/ SEE COMMENT 5 & DQB1 LR TYPING Result Comment: HLA-DRB1/3/4/5 AND DQB1 LOW RESOLUTION TYPING SEE SEPARATE REPORT. Performed By: #### DN2LR #### [facility] [address] [place] [address] HLA-DQB1 HR TYPING Collected: 08/23/2017 Status: F Source: [place] [address] [place] [address] REPOSITORY TYPE CODE TESTS RESULT OUT OF REFERENCE UNITS RANGE LAB DQBHR(LOINC ) HLA-DQB1 HR SEE COMMENT TYPING Result Comment: HLA-DQB1 HIGH RESOLUTION TYPING SEE SEPARATE REPORT. Performed By: #### DQBHR #### [facility] [address] [place] [address] HLA-DPB1 HR TYPING Collected: 08/23/2017 Status: F Source: [address] REPOSITORY TYPE CODE TESTS RESULT OUT OF REFERENCE UNITS RANGE LAB DPBHR(LOINC ) HLA-DPB1 HR SEE COMMENT TYPING Result Comment: HLA-DPB1 HIGH RESOLUTION TYPING SEE SEPARATE REPORT. Performed By: #### DPBHR #### [facility] [address] [place] [address] HLA-A,B,C LR Collected: 08/23/2017 Status: F Source: [place] [address]:[id number] [place] [address] REPOSITORY TYPE CODE TESTS RESULT OUT OF REFERENCE UNITS RANGE LAB DN1LA(LOINC ) HLA-A SEE COMMENT LOCUS LR TYPE Result Comment: HLA-A LOCUS, LOW RESOLUTION TYPE SEE SEPARATE REPORT. LAB DN1LB(LOINC) SEE HLA-B LOCUS COMMENT LR TYPE Result Comment: HLA-B LOCUS, LOW RESOLUTION TYPE SEE SEPARATE REPORT. LAB DN1LC(LOINC) SEE HLA-C LOCUS COMMENT LR TYPE Result Comment: HLA-C LOCUS, LOW RESOLUTION TYPE SEE SEPARATE REPORT. Performed By: #### DN1LR #### [facility] [address] [place] [address] AUTOCROSSMATCH, FLOW Collected: 08/23/2017 Status: F Source: [place] [address]:[id number] [place] [address] REPOSITORY TYPE CODE TESTS RESULT OUT OF REFERENCE UNITS RANGE LAB FLAUT(LOINC ) COMMENT AUTOCROSSMAT CH, FLOW Result Comment: SEE SEPARATE REPORT. Performed By: #### FLAUT #### [facility] [address] [place] [address] ABO/RH GROUP TEST Collected: 08/23/2017 Status: CANCELLED Source: [facility] 12:12 PM [facility] Order Comment: TEST ABO/RH GROUP TEST WAS CANCELLED, 08/23/2017 12:47 DUPLICATE ORDER. TYPE CODE TESTS RESULT OUT OF REFERENCE UNITS RANGE LAB ABORH(LOINC ) ABO TYPE Canceled LAB RH(LOINC) RH TYPE Canceled Performed By: #### ABORG #### [facility] [address] [place] [address] HLA-A,B,C LR Collected: 08/23/2017 Status: CANCELLED Source: [facility] [place] 12:12 PM [facility] Order Comment: TEST HLA-A,B,C LR WAS CANCELLED, 08/23/2017 14:29 DUPLICATE ORDER. TYPE CODE TESTS RESULT OUT OF REFERENCE UNITS RANGE LAB DN1LA(LOINC ) HLA-A Canceled LOCUS LR TYPE LAB DN1LB(LOINC ) HLA-B Canceled LOCUS LR TYPE LAB DN1LC(LOINC ) HLA-C Canceled LOCUS LR TYPE Performed By: #### DN1LR #### [facility] [address] [place] [address] HLA-DRB1/3/4/5 AND DQB1 Collected: 08/23/2017 Status: CANCELLED Source: [facility] [place] LR TYPING 12:12 PM [facility]IT[facility] Order Comment: TEST HLA-DRB1/3/4/5 AND DQB1 LR TYPING WAS CANCELLED, 08/23/2017 14:29 DUPLICATE ORDER. TYPE CODE TESTS RESULT OUT OF REFERENCE UNITS RANGE LAB DN2LR(LOINC ) Canceled HLA-DRB1/3/4 /5 & DQB1 LR TYPING Performed By: #### DN2LR #### [facility] [address] [place] [address] HLA CLASS I AB Collected: 08/23/2017 Status: CANCELLED Source: [facility] [place] SCREEN,FC 12:12 PM [facility]POSIT[facility] Order Comment: TEST HLA CLASS I AB SCREEN,FC WAS CANCELLED, 08/23/2017 14:29 DUPLICATE ORDER. TYPE CODE TESTS RESULT OUT OF REFERENCE UNITS RANGE LAB HLA1S(LOINC ) HLA CLASS Canceled I AB SCREEN,FC Performed By: #### HLA1S #### [facility] [address] [place] [address] AUTOCROSSMATCH, FLOW Collected: Status: CANCELLED Source: [facility] [place] 08/23/2017 12:12 PM [facility] REPOSIT[facility] Order Comment: TEST AUTOCROSSMATCH, FLOW WAS CANCELLED, 08/23/2017 14:29 DUPLICATE ORDER. TYPE CODE TESTS RESULT OUT OF REFERENCE UNITS RANGE LAB FLAUT(LOINC ) Canceled AUTOCROSSMAT CH, FLOW Performed By: #### FLAUT #### [facility] [address] [place] [address] HLA CLASS II AB Collected: 08/23/2017 Status: CANCELLED Source: [facility] [place] SCREEN,FC 12:12 PM [facility]POSIT[facility] Order Comment: TEST HLA CLASS II AB SCREEN,FC WAS CANCELLED, 08/23/2017 14:29 DUPLICATE ORDER. TYPE CODE TESTS RESULT OUT OF REFERENCE UNITS RANGE LAB HLA2S(LOINC ) HLA CLASS Canceled II AB SCREEN,FC Performed By: #### HLA2S #### [facility] [address] [place] [address] ALBUMIN Collected: 08/23/2017 Status: F Source: [facility] [place] 12:12 PM [facility] REPOSITORY TYPE CODE TESTS RESULT OUT OF REFERENCE UNITS RANGE LAB ALB(LOINC) 3.4 - 5.0 g/dL ALBUMIN 4.0 Performed By: #### ALB #### [facility] [address] [place] [address] TH CHEST 2 VIEW PA Observed: 08/23/2017 Status: F Source: [facility] 11:15 AM [facility] Patient Name: RODRI GALE STUDY: CHEST 2 VIEW PA AND LAT; 08/23/2017 11:15 am INDICATION: Pre transplant evaluation. COMPARISON: None. ACCESSION NUMBER(S): [id number] ORDERING CLINICIAN: ERIKA DUDLEY FINDINGS: The cardiomediastinal silhouette is borderline enlarged. There is no focal airspace consolidation, pleural effusion, or pneumothorax. There are no acute thoracic osseous abnormalities. IMPRESSION: Unremarkable chest radiographs. I personally reviewed the image(s)/study and resident interpretation. I agree with the findings as stated. Data analyzed and images interpreted at [facility], [place], [place]. Electronically signed by: MAX RUSS MD HLA CLASS II AB Collected: 08/23/2017 Status: F Source: [facility] S[facility], 8:22 AM [facility] REPOSITORY TYPE CODE TESTS RESULT OUT OF REFERENCE UNITS RANGE LAB HLA2S(LOINC ) HLA CLASS SEE COMMENT II AB SCREEN,FC Result Comment: HLA CLASS II AB SCREEN,FLOW CYTOMETRY SEE SEPARATE REPORT. Performed By: #### HLA2S #### [facility] [address] [place] [address] HLA CLASS I AB Collected: 08/23/2017 Status: F Source: [facility] S[facility], 8:22 AM [facility] REPOSITORY TYPE CODE TESTS RESULT OUT OF REFERENCE UNITS RANGE LAB HLA1S(LOINC ) HLA CLASS SEE COMMENT I AB SCREEN,FC Result Comment: HLA CLASS I AB SCREEN,FLOW CYTOMETRY SEE SEPARATE REPORT. Performed By: #### HLA1S #### [facility] [address] [place] [address] HLA CLASS I SP AB Collected: 08/23/2017 Status: F Source: [facility] ID, 8:22 AM [facility] REPOSITORY TYPE CODE TESTS RESULT OUT OF REFERENCE UNITS RANGE LAB HL1HD(LOINC ) HLA CLASS SEE COMMENT I SP AB ID,HD Result Comment: HLA-CLASS I SP ANTIBODY IDENTIFICATION, HIGH DEFINITION SEE SEPARATE REPORT. Performed By: #### HL1HD #### [facility] [address] [place] [address] HLA CLASS II SP AB Collected: 08/23/2017 Status: F Source: [facility] ID, 8:22 AM [facility] REPOSITORY TYPE CODE TESTS RESULT OUT OF REFERENCE UNITS RANGE LAB HL2HD(LOINC ) HLA CLASS SEE COMMENT II SP AB ID,HD Result Comment: HLA-CLASS II SP ANTIBODY IDENTIFICATION, HIGH DEFINITION SEE SEPARATE REPORT. Performed By: #### HL2HD #### [facility] [address] [place] [address] COAGULATION SCREEN Collected: 08/23/2017 Status: F Source: [facility] [place] 8:00 AM [facility] REPOSITORY TYPE CODE TESTS RESULT OUT OF REFERENCE UNITS RANGE LAB PT(LOINC) 9.8 - 12.7 sec PROTHROMBIN TIME 12.0 LAB INR(LOINC) 0.9 - 1.1 PT, INR 1.1 LAB APTT(LOINC 25 - 36 sec ) APTT 28 Result Comment: THE APTT IS NO LONGER USED FOR MONITORING UNFRACTIONATED HEPARIN THERAPY. FOR MONITORING HEPARIN THERAPY, USE THE HEPARIN ASSAY. Performed By: #### COAGS #### [facility] [address] [place] [address] HEPATITIS B SURF AB Collected: 08/23/2017 Status: F Source: [place] 8:00 [facility] REPOSITORY TYPE CODE TESTS RESULT OUT OF RANGE REFERENCE UNITS LAB HABF2(LOINC <10 mIU/mL ) HEP B < 3.1 SURF AB Result Comment: INTERPRETIVE CRITERIA: <10 mIU/mL....NONREACTIVE >=10 mIU/mL...REACTIVE . Patients receiving more than 5 mg/day of biotin may have interference in test results. A sample should be taken no sooner than eight hours after previous dose. Contact [phone] for additional information. LAB SOURCE(LOINC) Lab Specimen Source Performed By: #### HBAB3 #### [place] [id number] [place] [address] CBC Collected: 08/23/2017 Status: F Source: [facility] [address] [place] [address] REPOSITORY TYPE CODE TESTS RESULT OUT OF REFERENCE UNITS RANGE LAB WBCR(LOINC 4.4 - 11.3 x10E9/L ) WBC 9.2 LAB NRBC(LOINC 0.0-0.0 /100 WBC ) NUCLEATED RBC 0.0 LAB RBCCT(LOIN 4.50 - 5.90 x10E12/L C) Low RBC 2.89 LAB HGB(LOINC) 13.5 - 17.5 g/dL Low HGB 9.7 LAB HCT(LOINC) 41.0 - 52.0 % Low HCT 28.3 LAB MCV(LOINC) 80 - 100 fL MCV 98 LAB MCHC2(LOIN 32.0 - 36.0 g/dL C) MCHC 34.3 LAB PLTCT(LOIN 150 - 450 x10E9/L C) PLT 276 LAB RDWCV(LOIN 11.5 - 14.5 % C) RDW-CV 14.5 Performed By: #### CBC #### [facility] [address] [place] [address] HEPATITIS B SURFACE AG Collected: 08/23/2017 Status: F Source: [place] [address] [place] [address] REPOSITORY TYPE CODE TESTS RESULT OUT OF REFERENCE UNITS RANGE LAB HAGFN(LOIN NONREACTIVE C) HEP.B SURFACE NONREACTIVE AG Result Comment: Patients receiving more than 5 mg/day of biotin may have interference in test results. A sample should be taken no sooner than eight hours after previous dose. Contact [phone] for additional information. LAB SOURCE([facility]) Lab Specimen Source Performed By: #### HBSAG #### [facility] [address] [facility] [place] [address] PROSTATE SPECIFIC AG Collected: 08/23/2017 Status: F Source: [place] 8:00 [facility] REPOSITORY TYPE CODE TESTS RESULT OUT OF REFERENCE UNITS RANGE LAB PSA(LOINC) 0.00 - 4.00 ng/mL PROSTATE 2.27 SPECIFIC AG Result Comment: The FDA requires that the method used for PSA assay be reported to the physician. Values obtained with different assay methods must not be used interchangeably. uses the ADVIA Centaur PSA method, which is a sandwich immunoassay using chemiluminescence for quantitation. The assay is approved for measurement of prostate-specific antigen (PSA) in serum and may be used in conjunction with a digital rectal examination in men 50 years and older as an aid in detection of prostate cancer. LAB SOURCE(LOINC) Lab Specimen Source Performed By: #### PSA #### [facility] [address] [facility] [place] [address] AMYLASE Collected: 08/23/2017 Status: F Source: [facility] [address] [place] [address] REPOSITORY TYPE CODE TESTS RESULT OUT OF REFERENCE UNITS RANGE LAB PHUONG(LOINC) 29 - 103 U/L AMYLASE 35 LAB SOURCE(LOIN C) Lab Specimen Source Performed By: #### PHUONG #### [facility] [address] [place] [id number] CREATININE Collected: 08/23/2017 Status: F Source: [place] 8:00 [facility] REPOSITORY TYPE CODE TESTS RESULT OUT OF RANGE REFERENCE UNITS LAB CREA(LOINC 0.50 - 1.30 mg/dL ) High CREATININE 5.98 LAB GFRFN(LOIN >60 mL/min/1.7 C) 3m2 GFR-NON Abnormal AM. 10 LAB GFRAA(LOIN >60 mL/min/1.7 C) 3m2 Abnormal GFR- AM. 12 Result Comment: CALCULATIONS OF ESTIMATED GFR ARE PERFORMED USING THE MDRD STUDY EQUATION FOR THE IDMS-TRACEABLE CREATININE METHODS. CLIN CHEM 2007;53:766-72 LAB SOURCE(LOINC) Lab Specimen Source Performed By: #### CREAT #### [facility] [address] [facility] [address] UREA NITROGEN Collected: 08/23/2017 Status: F Source: [place] 8:00 [facility] REPOSITORY TYPE CODE TESTS RESULT OUT OF REFERENCE UNITS RANGE LAB UREA(LOINC) 6 - 23 mg/dL High UREA NITROGEN 69 LAB SOURCE(LOIN C) Lab Specimen Source Performed By: #### UREA #### [facility] [address] [place] [address] PHOSPHORUS Collected: 08/23/2017 Status: F Source: [place] 8:00 [facility] REPOSITORY TYPE CODE TESTS RESULT OUT OF REFERENCE UNITS RANGE LAB PHOS(LOINC 2.5 - 4.9 mg/dL ) PHOSPHORUS 4.8 Result Comment: The performance characteristics of phosphorus testing in heparinized plasma have been validated by the individual laboratory site where testing is performed. Testing on heparinized plasma is not approved by the FDA; however, such approval is not necessary. LAB SOURCE([facility]) Lab Specimen Source Performed By: #### PHOS #### [facility] [address] [place] [address] HEPATIC FUNCTION Collected: 08/23/2017 Status: F Source: [facility] 8:00 [facility] REPOSITORY TYPE CODE TESTS RESULT OUT OF REFERENCE UNITS RANGE LAB ALB(LOINC) 3.4 - 5.0 g/dL ALBUMIN 3.7 LAB TBILI(LOIN 0.0 - 1.2 mg/dL C) BILIRUBIN,TOTAL 0.4 LAB DBILI(LOIN 0.0 - 0.3 mg/dL C) BILIRUBIN,DIRECT 0.1 LAB AP(LOINC) 33 - 136 U/L ALKALINE PHOSPHATASE 56 LAB ALT(LOINC) 10 - 52 U/L Low ALT 9 Result Comment: Patients treated with Sulfasalazine may generate falsely decreased results for ALT. LAB AST(LOINC) 9 - 39 U/L AST 17 LAB TP(LOINC) 6.4 - 8.2 g/dL Low TOTAL PROTEIN 6.0 LAB SOURCE(LOINC) Lab Specimen Source Performed By: #### HEPFP #### [facility] [address] [place], [place] [address] SYPHILIS IGG Collected: 08/23/2017 Status: F Source: [place] 8:00 [facility] REPOSITORY TYPE CODE TESTS RESULT OUT OF REFERENCE UNITS RANGE LAB SYPHG(LOIN NONREACTIVE C) SYPHILIS IGG NON REACTIVE Result Comment: Patients receiving more than 5 mg/day of biotin may have interference in test results. A sample should be taken no sooner than eight hours after previous dose. Contact [phone] for additional information. LAB SOURCE([facility]) Lab Specimen Source Performed By: #### SYPH #### [facility] [address] [place] [id number] HEPATITIS C AB Collected: 08/23/2017 Status: F Source: [place] 8:00 [facility] REPOSITORY TYPE CODE TESTS RESULT OUT OF REFERENCE UNITS RANGE LAB HCVFN(LOIN NONREACTIVE C) HEPATITIS C AB NON-REACTIVE Result Comment: Patients receiving more than 5 mg/day of biotin may have interference in test results. A sample should be taken no sooner than eight hours after previous dose. Contact [phone] for additional information. LAB SOURCE([facility]) Lab Specimen Source Performed By: #### HCVAB #### [facility] [address] [place] [id number] HEPATITIS B CORE Collected: 08/23/2017 Status: F Source: [place] AB-TOTAL 8:00 [facility] REPOSITORY TYPE CODE TESTS RESULT OUT OF REFERENCE UNITS RANGE LAB HCTFN(LOIN NONREACTIVE C) NONREACTIVE HEP. B CORE AB-TOTAL Result Comment: Patients receiving more than 5 mg/day of biotin may have interference in test results. A sample should be taken no sooner than eight hours after previous dose. Contact [phone] for additional information. LAB SOURCE([facility]) Lab Specimen Source Performed By: #### HBCRT #### [facility] [address] [place] [id number] ABO/RH GROUP TEST Collected: 08/23/2017 Status: F Source: [place] 8:00 [facility] REPOSITORY TYPE CODE TESTS RESULT OUT OF RANGE REFERENCE UNITS LAB ABORH([facility] ) ABO TYPE A LAB RH([facility]) RH TYPE POS Performed By: #### ABORG #### [facility] [address] [place] [id number] EBV PANEL Collected: 08/23/2017 Status: F Source: [place] 8:00 [facility] REPOSITORY TYPE CODE TESTS RESULT OUT OF RANGE REFERENCE UNITS LAB VCAGI(SUSSY NEGATIVE NC) VCA IGG ANTIBODY Abnormal POSITIVE LAB EAGI(LOIN NEGATIVE C) EBV EA-D IGG ANTIBODY Negative LAB JESSICA(LOIN NEGATIVE C) EBV NA-1 IGG Abnormal ANTIBODY POSITIVE LAB VCAMI([place]US[place] NEGATIVE NC) VCA IGM ANTIBODY Negative LAB EBVIN(SUSSY NC) EBV INTERPRETATION SEE BELOW Result Comment: . EBV INTERPRETATION CHART . VCA-IGG VCA-IGM NA-IGG EA-IGG . PRIMARY ACUTE +/- +/- - +/- LATE ACUTE + +/- +/- +/- RECOVERING + - - + PREVIOUS INFECTION + - +/- - Performed By: #### EBVP1 #### [place] [address] [place] [id number] VARICELLA ZOSTER IGG Collected: 08/23/2017 Status: F Source: [facility] 8:00 [facility] REPOSITORY TYPE CODE TESTS RESULT OUT OF REFERENCE UNITS RANGE LAB VARZG(LOIN NEGATIVE C) VARICELLA POSITIVE ZOSTER IGG AB Result Comment: INTERPRETATIVE COMMENT NEGATIVE: No IgG antibodies specific to VZV detected. It is likely that the patient has not had a previous exposure to VZV through infection or vaccination. Alternatively, the patient may have been exposed to VZV but a failure to respond may indicate immunodeficiency. EQUIVOCAL:Equivocal results; obtain additional sample for retesting. POSITIVE: IgG antibody to VZV detected. This may indicate that the patient was exposed to VZV through infection or vaccination. The interpretation of serological tests should take into account the immunological status of the patient. Test results for patients, including immunocompromised patients, neonates, and pediatric patients, reflect their capacity to respond immunologically to the virus as well as their exposure to the pathogen. Patients treated with IVIG may demonstrate altered results in serological assays. Performed By: #### VARZG #### [facility] [address] [place] [address] CMV IGG Collected: 08/23/2017 Status: F Source: [place] 8:00 [facility] REPOSITORY TYPE CODE TESTS RESULT OUT OF RANGE REFERENCE UNITS LAB CMVGF(LOINC INDEX ) Abnormal CMV 15.4 IGG AB Result Comment: RESULTS WERE OBTAINED WITH THE IMMULITE CMV IGG CHEMILUMINESCENT METHOD. THE MAGNITUDE OF THE MEASURED RESULT, ABOVE THE CUT-OFF, IS NOT INDICATIVE OF THE TOTAL AMOUNT OF ANTIBODY PRESENT. NEGATIVE: < 0.9 EQUIVOCAL: 0.9 - 1.0 POSITIVE: >=1.1 Performed By: #### CMVG2 #### [facility] [address] [place] [address] HEMOGLOBIN A1C Collected: 08/23/2017 Status: F Source: [place] 8:00 [facility] REPOSITORY TYPE CODE TESTS RESULT OUT OF RANGE REFERENCE UNITS LAB HBA1C(LOINC % ) HGB A1C 6.3 Result Comment: Diagnosis of Diabetes-Adults Non-Diabetic: < or = 5.6% Increased risk for developing diabetes: 5.7-6.4% Diagnostic of diabetes: > or = 6.5% . Monitoring of Diabetes Age (y) Therapeutic Goal (%) Adults: >18 <7.0 Pediatrics: 13-18 <7.5 7-12 <8.0 0- 6 7.5-8.5 [place] [employer]. Diabetes Care 33(S1), Jul 2009. LAB ESAVG(LOINC) MG/DL EST.AVG.GLUCOSE 134 Performed By: #### HBA1E #### [facility] [address] [facility] [address] C PEPTIDE Collected: 08/23/2017 Status: F Source: [place] 8:00 AM [facility] REPOSITORY TYPE CODE TESTS RESULT OUT OF REFERENCE UNITS RANGE LAB CPEPT(LOINC 1.1 - 5.0 ng/mL ) C High PEPTIDE 6.3 Performed By: #### CPEPT #### [facility] [address] [place] [address] DRUG-PROFILE 9,BLOOD Collected: 08/23/2017 Status: F Source: [place] WITH REFLEX TO 8:00 [facility] REPOSITORY CONFIRMATION TYPE CODE TESTS RESULT OUT OF REFERENCE UNITS RANGE LAB AMPB0([place] Cutoff 30 ng/mL NC) AMPHETAMINES SCREEN Negative LAB MAMB0([place] Cutoff 30 ng/mL NC) METHAMPHETAMINES SCREEN Negative LAB BARC0(SUSSY Cutoff 75 ng/mL NC) BARBITURATES SCREEN Negative LAB BENC0(SUSSY Cutoff 75 ng/mL NC) BENZODIAZEPINES SCREEN Negative LAB BUPB0(SUSSY Cutoff 1 ng/mL NC) BUPRENORPHINE SCREEN Negative LAB CANB0(SUSSY Cutoff 30 ng/mL NC) CANNABINOID SCREEN Negative LAB COCB0(SUSSY Cutoff 30 ng/mL NC) COCAINE SCREEN Negative LAB METB0(SUSSY Cutoff 40 ng/mL NC) METHADONE SCREEN Negative LAB OPIB0(SUSSY Cutoff 30 ng/mL NC) OPIATE SCREEN Negative LAB OXYB0(SUSSY Cutoff 30 ng/mL NC) OXYCODONE SCREEN Negative LAB PCPB0(SUSSY Cutoff 15 ng/mL NC) PCP SCREEN Negative LAB DRBSC(SUSSY NC) DRUG SCREEN COMMENT See Note Result Comment: INTERPRETIVE INFORMATION: Drug Screen 9 Panel, Serum or Plasma - Immunoassay Screen with Reflex to Mass Spectrometry Confirmation/Quantitation 1. Methodology: Qualitative Immunoassay Screen 2. Drugs/Drug classes reported as Positive are automatically reflexed to mass spectrometry confirmation/quantitation testing. An immunoassay unconfirmed positive screen result may be useful for medical purposes but does not meet forensic standards. 3. The absence of expected drug(s) and/or drug metabolite(s) may indicate non-compliance, inappropriate timing of specimen collection relative to drug administration, poor drug absorption, or limitations of testing. The concentration at which the screening test can detect a drug or metabolite varies within a drug class. Specimens for which drugs or drug classes are detected by the screen are automatically reflexed to a second, more specific technology (mass spectrometry). The concentration value must be greater than or equal to the cutoff to be reported as positive. Interpretive questions should be directed to the laboratory. 4. For medical purposes only; not valid for forensic use. Test developed and characteristics determined by [employer] See Compliance Statement B: [employer]form[employer]/ Performed by [employer], [facility] [place] [address] www.[employer]form[employer], Moisés Ness MD - Lab. Director Performed By: #### [id number] #### [employer] [facility] [place] [address] QUANTIFERON TB GOLD Collected: 08/23/2017 Status: F Source: [place] [facility]:00 [facility] REPOSITORY TYPE CODE TESTS RESULT OUT OF REFERENCE UNITS RANGE LAB QUAFE(LOIN Negative C) QUANTIFERON TB GOLD NEGATIVE Result Comment: Negative test result. M. tuberculosis complex infection unlikely. LAB QUNIL(LOINC) IU/mL NIL 0.05 LAB QUMIN(LOINC) IU/mL MITOGEN NIL 8.34 LAB QUTBN(LOINC) IU/mL TB ANTIGEN NIL <0.00 Result Comment: The Nil tube value is used to determine if the patient has a preexisting immune response which could cause a false-positive reading on the test. In order for a test to be valid, the Nil tube must have a value of <=8.0 IU/mL. The Mitogen control tube is used to assure the patient has a healthy immune status and also serves as a control for correct blood handling and incubation. It is used to detect false-negative readings. The mitogen tube must have a gamma interferon value >= 0.5 IU/mL higher than the value of the Nil tube. The TB Antigen tube is coated with the M tuberculosis specific antigens. For a test to be considered positive the TB antigen tube value minus the Nil tube value must be >=0.35 IU/mL. Data on the performance of the test in children younger than 5 years of age are limited, and the CDC advises that caution is warranted when using the assay in children aged <5 years (MMWR 2010; 59 (RR-05):1-25). For additional information, please refer to: http://education.[employer].Flukle/faq/QFT (This link is being provided for informational/ educational purposes only). Performed By: #### [email or web address] #### [facility] [address] [address] PROGRESS Observed: 08/22/2017 Status: COMPLETED Source: [place] 11:19 AM [facility] REPOSITORY [facility] ID: [id number] Author: Brett Reese III Service: (none) Author Type: Physician Type: Progress Notes Filed: 08/22/2017 12:21 PM Note Text: SUBJECTIVE: This is a 62 year old male that is here today for Chronic Medical Conditions. 1. hypertension --labile blood pressure. He states his blood pressure yesterday at Dr. Benjamín Reese's office was 223/96. 2. anemia: 3. Patient has severe stage V renal failure and is scheduled to have a fistula placed in the left upper extremity by Dr. Benjamín Reese on 09/11/17. Prior that time the patient needs to have diagnosis of the etiology of his anemia and also have controlled blood pressure. My impression is that the anemia is secondary to renal failure but GI bleeding has not been ruled out. Recent stool test for blood was negative. His last hemoglobin was 8.8 on 08/16/16. He is getting infusion of iron every week by Dr Srivastava. Patient has recently seen a senior internal auditor, Dr. Rodriguez, without change in medication. PAST MEDICAL HISTORY Diagnosis Date - Anemia in stage 5 chronic kidney disease, not on chronic dialysis ([facility]) 07/12/2017 - BPH (benign prostatic hyperplasia) 03/06/2012 - Diabetes mellitus type 2 with neurological manifestations ([facility]) 02/13/2013 - 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 ([facility]) 08/31/2014 - Enlarged prostate - Essential hypertension, benign - Hearing loss 09/10/2012 - Hypocalcemia 07/31/2017 - Kidney disease - Osteoarthritis of left knee 02/16/2011 - Other and unspecified hyperlipidemia - Tinnitus 09/10/2012 - Type 2 diabetes mellitus with stage 4 chronic kidney disease, with long-term current use of insulin ([facility]) 09/20/2016 - Vitamin D deficiency 07/31/2017 - White coat hypertension 02/09/2014 Current Outpatient Prescriptions on File Prior to Visit: ergocalciferol, vitamin D2, (VITAMIN D) 50,000 unit capsule Take 50,000 Units by mouth q 3 WEEKS. labetalol (TRANDATE) 100 mg tablet Take 3 tablets by mouth twice daily. (Patient taking differently: Take 100 mg by mouth twice daily. ) NIFEdipine ER (PROCARDIA XL) 60 mg 24 hr tablet TAKE 1 TABLET ONCE DAILY losartan (COZAAR) 100 mg tablet Take 1 tablet by mouth once daily. calcitriol (ROCALTROL) 0.25 mcg capsule Take 1 capsule by mouth once daily. Cholecalciferol, Vitamin D3, 2,000 unit cap Take 1 capsule by mouth once daily. insulin glargine (LANTUS SOLOSTAR) 100 unit/mL (3 mL) inpn INJECT 28 (unless active then 21 unit) UNITS UNDER THE SKIN DAILY insulin lispro (HUMALOG KWIKPEN) 100 unit/mL inpn Inject 14 Units subcutaneously twice daily with meals. furosemide (LASIX) 20 mg tablet Take 1 tablet by mouth twice daily. iron polysaccharide complex (FERREX-150) 150 mg iron capsule Take 1 capsule by mouth twice daily. rosuvastatin (CRESTOR) 10 mg tablet TAKE 1 TABLET DAILY triamcinolone acetonide (KENALOG) 0.1 % cream Apply 1 application to affected area once daily. Apply to affected area as needed for itching. Location: lower legs insulin needles, DISPOSABLE, (UNIFINE PENTIPS) 31 gauge x 5/16 ndle USE 3 NEEDLES PER DAY INSTRUCTED BD ULTRAFINE III MINI PEN 31 gauge x 3/16 ndle USE ONCE DAILY finasteride (PROSCAR) 5 mg tablet Take 5 mg by mouth once daily. Lancets (ONE TOUCH DELICA) lancets Test blood sugar(s) 4 daily. Dx: 250.02 Insulin: Yes blood sugar diagnostic (ONE TOUCH ULTRA TEST) test strip Test blood sugar(s) two times daily. Dx: 250.02. Insulin: No No current facility-administered medications on file prior to visit. FAMILY HISTORY Problem Relation Age of Onset - Diabetes Mother - Hypertension Mother - Heart Mother NM - lung cancer [OTHER] Mother bone metastasis - Diabetes Father - BPH [OTHER] Father - pancreatic cancer [OTHER] Father - Diabetes Brother - Diabetes Brother Social History Substance Use Topics - Smoking status: Former Smoker Packs/day: 1.00 Years: 6.00 Types: Cigarettes - Smokeless tobacco: Never Used Comment: quit - Alcohol use Yes Comment: RARE BP 162/74 Pulse 65 Resp 16 Wt 101.6 kg (224 lb) BMI 31.91 kg/m2 . OBJECTIVE: APPEARANCE Well appearing, alert, in no acute distress, well-hydrated, well nourished. EXTREMITIES swelling of lower legs bilaterally ASSESSMENT: Diabetes mellitus with stage V renal failure Hypertension, labile Anemia?in part due to chronic renal failure,? Iron deficiency from GI blood loss PLAN: discontinue nifedipine increase lasix 40mg twice/day increase labetalol 400mg twice/day refer for EGD/colonoscopy to evaluate anemia nurse BP check in 1 wk FLASH Mcleod MD, III MD SURGERY VISIT REPORT Observed: 08/21/2017 Status: F Source: [place] 3:23 PM [facility] REPOSITORY [facility] [address] [facility] [address] [facility] [address] [place] [address] OFFICE VISIT Date of Service: 08/21/17 MR#: [id number] Acct: [id number] Name: RODRI GALE Rep #: [id number] : 1955 Provider: Benjamín Reese MD Age/Sex: 62/M Location: [facility] Status: Signed Intake Vital Signs08/21/17 Height 5 ft 10 in 08/21/17 Weight: 224 lb 08/21/17 Body Mass Index (BMI) 32.1 Intake Visit Reasons: F/U VEIN MAPPING Chief Complaint: VENOFER Missionary Coordinator Required: No Is patient in pain?: No Allergies metformin Allergy (Verified 08/21/17 14:46) Itching Sulfa (Sulfonamide Antibiotics) Allergy (Verified 08/21/17 14:46) Swelling Medications Insulin Glargine [Lantus SoloStar Pen] 28 units SC DAILY 04/07/13 [History Confirmed 08/21/17] Nifedipine [Nifedipine ER] 60 mg PO DAILY 06/16/14 [History Confirmed 08/21/17] calcitriol 0.25 mcg capsule 0.25 mcg PO QDAY 07/10/17 [History Confirmed 08/21/17] finasteride 5 mg tablet 5 mg PO QDAY 07/10/17 [History Confirmed 08/21/17] furosemide 20 mg tablet 40 mg PO DAILY 07/10/17 [History Confirmed 08/21/17] labetalol 100 mg tablet 300 mg PO BID 07/10/17 [History Confirmed 08/21/17] losartan 50 mg tablet 100 mg PO QDAY 07/10/17 [History Confirmed 08/21/17] rosuvastatin 10 mg tablet 10 mg PO QDAY 07/10/17 [History Confirmed 08/21/17] Ergocalciferol [Vitamin D] 50,000 unit PO 08/19/17 [History Confirmed 08/21/17] Insulin Lispro [Humalog] 10 - 12 unit SC 08/19/17 [History Confirmed 08/21/17] Iron Polysaccharide Complex [Ferrex 150] 150 mg PO DAILYCM 08/19/17 [History Confirmed 08/21/17] PFS Medical History Renal failure (Acute) Essential hypertension (Acute) Type II diabetes mellitus (Acute) Hypercholesterolemia (Acute) Hyperglycemia due to type 1 diabetes mellitus (Acute) Anemia (Acute) Open fracture at right wrist or hand level (Acute) Family History Mother Diabetes Hypertension Heart disease Cancer lung Brother Diabetes Father Diabetes Cancer pancreas Social History Smoking Status: Never smoker HPI HPI HPI: RODRI GALE, is a 62 M who presents to the office today for ongoing surgical consultation regarding dialysis access. My previous notes as listed below demonstrated initial request for peritoneal dialysis catheters. 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 That might make him a better future candidate. The patient is going to [facility] soon for initial consultation regarding renal transplant. The patient currently is having troubles with malignant hypertension for which Dr. Abbie Rodriguez and Dr. Brett Reese III are addressing. The patient also is having problems with apparently anemia of undetermined etiology. He has been treated with IV infusion. The patient has had a traumatic injury to his right upper extremity precluding it for AV access. The patient had left upper extremity vein mapping as noted below. He is a candidate for left upper extremity AV fistula creation MR#: [id number]:[id number] Name: RODRI GALE ARep #:[id number] : 1955 62From: Benjamín Reese MD Attending Dr: Hugh LYNCH,[facility]: [facility] Ordering Dr: Benjamín Reese MDDate: 07/16/17 Location:[facility]: Admitted: Reason For Study: N17.9, N18.4 Left Arm Left cephalic vein is compressible. Left Cephalic Vein at the shoulder measures .348 x .355 cm. Left Cephalic Vein at mid bicep measures .190 x .189 cm. Left Cephalic Vein above antecub measures .194 x .179 cm. Left Cephalic Vein below antecub measures .154 x .145 cm. Left Cephalic Vein in the forearm measures .194 x .185 cm. Left Cephalic Vein at the wrist measures .269 x .279 cm. Left basilic vein is compressible. Basilic vein at origin measures .348 x .374 cm. Basilic vein above antecub measures .424 x .448 cm. Basilic vein below antecub measures .235 x .234 cm. Basilic vein in the forearm measures .254 x .235 cm. Basilic vein at the wrist measures .209 x .229 cm. Brachial artery 99.0 cm/s. Brachial artery .459 x .498 cm. Radial artery 105 cm/s. Radial artery .239 x .249 cm. < Interpretation Summary Small left upper extremity cephalic vein. Adequate left upper arm basilic vein. Normal flow left radial and brachial arteries. Ordering Physician: Benjamín Reese Performed By: Chance Damon RVT 07/16/17 1723 Date Benjamín Reese MD Intake Visit Reasons: NEEDS PD CATHETER Chief Complaint: PD cath Missionary Coordinator Required: No Is patient in pain?: No Allergies metformin Allergy (Verified 07/10/17 15:44) Itching Sulfa (Sulfonamide Antibiotics) Allergy (Verified 07/10/17 15:44) Swelling Medications Insulin Glargine [Lantus SoloStar Pen] 54 units SC QHS 04/07/13 [History Confirmed 07/10/17] Insulin Aspart [Novolog Flexpen] 5 units SC BREAKFAST 06/16/14 [History Confirmed 07/10/17] Nifedipine [Nifedipine ER] 60 mg PO DAILY 06/16/14 [History Confirmed 07/10/17] Insulin Aspart [Novolog Flexpen (BKC)] 10 units SC DINNER 06/07/15 [History Confirmed 07/10/17] calcitriol 0.25 mcg capsule 0.25 mcg PO QDAY 07/10/17 [History Confirmed 07/10/17] finasteride 5 mg tablet 5 mg PO QDAY 07/10/17 [History Confirmed 07/10/17] furosemide 20 mg tablet 20 mg PO QDAY 07/10/17 [History Confirmed 07/10/17] labetalol 100 mg tablet 100 mg PO BID 07/10/17 [History Confirmed 07/10/17] losartan 50 mg tablet 50 mg PO QDAY 07/10/17 [History Confirmed 07/10/17] rosuvastatin 10 mg tablet 10 mg PO QDAY 07/10/17 [History Confirmed 07/10/17] PFSH Medical History Renal failure (Acute) Essential hypertension (Acute) Type II diabetes mellitus (Acute) Hypercholesterolemia (Acute) Hyperglycemia due to type 1 diabetes mellitus (Acute) Anemia (Acute) Open fracture at right wrist or hand level (Acute) Family History Mother Diabetes Hypertension Heart disease Cancer lung Brother Diabetes Father Diabetes Cancer pancreas Social History Smoking Status: Never smoker HPI HPI HPI: RODRI GALE, is a 62 M who presents to the office today for consideration of peritoneal dialysis catheters. He is referred by Dr. Abbie Rodriguez for surgical consultation regarding PD catheters and a written copy of my surgical consult recommendations will be returned to her. The patient's been diabetic for at least 20 years. Current problems include a rather rapidly progressing renal insufficiency. As of June 06, 2017 BUN was 16 creatinine 5.33 with an estimated GFR of 12. It is also of note that he has a hemoglobin of 9.2 hematocrit of 28.3 and a platelet count of 205,000. More recently on June 21 his BUN was 7 and creatinine 5.66 with a estimated GFR of 11 His right arm dominant but he had a significant injury to his right hand requiring 2 separate operations. He has indwelling orthopedic devices. ROS General General: Yes weight change and fatigue; no appetite, colon cancer, breast cancer or weakness HEENT HEENT: No difficulty swallowing, eye injury, eye surgery, swollen glands or hoarseness Endo Endocrine: Yes diabetes mellitus; no thyroid disease, thyroid cancer, Hair loss, heat intolerance or cold intolerance Skin Skin: No rash or changing moles Breast Breast: No left breast lump, right breast lump, nipple discharge, breast pain, abnormal mammogram, abnormal US or breast enlargement Musc Musculoskeletal: Yes back problems and arthritis; no rheumatoid arthritis, gout or joint pain Cardio Cardiovascular: Yes high blood pressure; no murmur, pacemaker, heart disease, atrial fibrillation, heart attack, heart stent, palpitations, shortness of breat with exertion or chest pain Psych Psychiatric: No depression, anxiety or hearing voices Resp Respiratory: No shortness of breath, No sleep apnea, Yes cough, No COPD, No asthma, No emphysema, No wheezing Gastro Gastrointestinal: No abdominal pain, No nausea or vomiting, No diarrhea, No constipation, No blood in stool, No acid reflux, No hemorrhoids, No ulcers, No gallbladder problem, No black,tarry stools [place] Hematologic: No blood thinners, No blood disorders, No bleeding, Yes anemia, No blood clots Neuro Neurologic: No system reviewed and no additional complaints, except as docu, No as per HPI, No abnormal walking, No abnormal hearing, No abnormal movements, No abnormal speech, No behavioral changes, No burning sensations, No confusion, No seizure-like activity, No unsteadiness, No dizziness, No localized weakness, No frequent falls, No headache(s), No lack of coordination, No loss of vision, No memory loss, No numbness, No other visual disturbances, No radiating pain, No restless legs, No sensory deficit, No fainting, No tingling, No tremor(s), No weakness, No other Exam Const General: cooperative, no acute distress Nutritional Appearance: average body habitus Orientation: alert, awake, oriented x3 HENMT Head: normal to inspection Eyes General: appearance normal, both eyes and all related structures Neck Neck: normal visual inspection Chest Chest palpation AND inspection: normal inspection of the chest Breast Palpation: No nipple discharge Resp Auscultation: clear to auscultation bilaterally Cardio Rate: regular rate Rhythm: regular rhythm Heart Sounds: no murmurs GI Palpation: soft, no hepatosplenomegaly Auscultation: normal bowel sounds Skin General: dry skin Neuro General: CN's II-XI intact bilaterally Extrem Other: 3+ nonpitting edema bilateral lower extremities Vertical incisions right forearm with soft tissue loss 3+ left radial pulse. Psych Affect: normal affect Assessment AND Plan Problems 1. Renal failure N19 Plan 62-year-old gentleman with stage IV renal failure. Unfortunately he still is working in a dirty environment. His shirt and slacks demonstrate evidence of a work environment. He is referred for consideration of peritoneal dialysis catheter placement. The patient is hoping to work still for 2 more months. I do not feel comfortable placing the peritoneal dialysis catheters while he is still working in such an environment. It would appear however that his renal function is to the degree that waiting an additional 2 months prior to placing the peritoneal dialysis catheters may not be in his best interest either. His right arm has had extensive orthopedic intervention and is not a candidate for a fistula. He is right arm dominant. At this point I would recommend obtaining venous duplex imaging of his left upper extremity. If a good cephalic vein and radial arteries identified then I would recommend proceeding directly with a left forearm radial to cephalic arteriovenous fistula creation. That could possibly be used to temporize dialysis needs depending upon his ongoing renal function. If then the patient were to retire we could then in the future consider converting and placing a laparoscopic peritoneal dialysis catheter when he would no longer be exposed to his work environment. He is well aware as is his that he is at risk at any point for requiring more urgent dialysis and for that tunneled dialysis catheters would need to be placed. He and his have had an opportunity to extensively ask and have questions answered. The patient is very much interested if possible in being able to continue to work for the next couple months. With that in mind we will urgently pursue duplex imaging of his left arm and then possible fistula creation if it that seems feasible. In the future we certainly could convert to peritoneal dialysis when appropriate. The patient is very much aware of the critical nature of good hygiene particularly for the peritoneal catheters I very much appreciate the kind opportunity of assisting with his surgical care Patient will be seeing this week yet to address his iron deficiency Cc Dr. Abbie Rodriguez, Dr. Srivastava, Dr. Brett Reese M.D., F.A.C.S. Orders ROS General General: Yes weight change and fatigue; no appetite, colon cancer, breast cancer or weakness HEENT HEENT: No difficulty swallowing, eye injury, eye surgery, swollen glands or hoarseness Endo Endocrine: Yes diabetes mellitus; no thyroid disease, thyroid cancer, Hair loss, heat intolerance or cold intolerance Skin Skin: No rash or changing moles Breast Breast: No left breast lump, right breast lump, nipple discharge, breast pain, abnormal mammogram, abnormal US or breast enlargement Musc Musculoskeletal: Yes back problems and arthritis; no rheumatoid arthritis, gout or joint pain Cardio Cardiovascular: Yes high blood pressure; no murmur, pacemaker, heart disease, atrial fibrillation, heart attack, heart stent, palpitations, shortness of breat with exertion or chest pain Psych Psychiatric: No depression, anxiety or hearing voices Resp Respiratory: No shortness of breath, No sleep apnea, Yes cough, No COPD, No asthma, No emphysema, No wheezing Gastro Gastrointestinal: No abdominal pain, No nausea or vomiting, No diarrhea, No constipation, No blood in stool, No acid reflux, No hemorrhoids, No ulcers, No gallbladder problem, No black,tarry stools Ryder Hematologic: No blood thinners, No blood disorders, No bleeding, Yes anemia, No blood clots Neuro Neurologic: No weakness Exam Chest Breast Palpation: No nipple discharge Cardio Heart Sounds: no murmurs Assessment AND Plan 1. Stage 4 chronic kidney disease N18.4 Plan I am proposing for the patient a transposed left upper extremity basilic vein to brachial artery arteriovenous fistula creation. I have personally performed ultrasound of the left upper extremity and the basilic vein actually remains quite generous past the antecubital crease onto the ulnar for her arm. The patient has quite muscular arms. I believe that a stepwise incision bridging the antecubital space gaining more length from the basilic vein would then allow for a very generous transposed upper arm basilic vein to brachial artery AV fistula creation. I have discussed the technique, benefits, risks, alternatives. The patient is aware that his iron deficiency and hypertension continue to need maximum treatment. We will tentatively schedule his surgical procedure in approximately 3 weeks allowing for improved medical status. He has had an opportunity to ask and have questions answered. I believe that an AV fistula would place him in a good future situation to receive dialysis. Pending his ongoing progress and care could still consider a future peritoneal dialysis catheter placement at his discretion. Due to the complexity of the AV fistula I would prefer not try to combine both these procedures at once. Cc: Dr. Abbie Rodriguez and Dr. Brett Reese, III Benjamín Reese M.D., F.A.C.S. Coding Level of Care Code Off vis,est,level 2 Diagnoses Stage 4 chronic kidney disease N18.4 Renal failure chronicity: chronic Chronic kidney disease stage: stage 4 (severe) 08/21/17 1523 <Electronically signed by Benjamín Reese MD> Date Benjamín Reese MD [facility] Signature: Date (if applicable) CC: Abbie Rodriguez DO; Brett Reese III, MD [place] HEMATOCRIT Collected: 08/16/2017 Status: F Source: RONALD 8:13 AM [facility] REPOSITORY TYPE CODE TESTS RESULT OUT OF REFERENCE UNITS RANGE LAB WHCT 39.0-51.0 % Low [place] Hematocrit 27.2 Result Comment: Test performed at: [facility], [address] [place] [address]., [place] [address]. [place] HEMOGLOBIN Collected: 08/16/2017 Status: F Source: RONALD 8:13 AM [facility] REPOSITORY TYPE CODE TESTS RESULT OUT OF REFERENCE UNITS RANGE LAB WHGB 13.0-17.0 g/dL Low [place] Hemoglobin 8.8 Result Comment: Test performed at: [facility], [address] [place] [address]., [place] [address]. CBC-COMPLETE BLOOD CNT Collected: 08/10/2017 Status: F Source: EDUARDO NO DIFF 9:52 AM [facility] REPOSITORY TYPE CODE TESTS RESULT OUT OF RANGE REFERENCE UNITS LAB L100.1000 4.4-11.0 K/mm3 Normal WBC 8.4 LAB L100.1200 4.6-6.2 M/mm3 Low RBC 2.90 LAB L100.1300 13.0-16.5 g/dl Low HGB 8.9 LAB L100.1400 40-54 % Low HCT 27.5 LAB L100.1500 80-94 fL High MCV 94.8 LAB L100.1600 27.0-32.0 pg Normal MCH 30.7 LAB L100.1700 32-36 g/gl Normal MCHC 32.4 LAB L100.1810 11.6-14.6 % Normal RDW CV 14.3 LAB L100.1820 35.1-43.9 fl High RDW SD 46.4 LAB L100.1900 150-450 K/mm3 Normal PLT 256 LAB L100.2000 6.2-12.0 fl Normal MPV 10.3 Performed By: #### L100.0500 #### [facility] [address], [address] RENAL PROFILE Collected: 08/10/2017 Status: F Source: EDUARDO 9:52 AM [facility] REPOSITORY TYPE CODE TESTS RESULT OUT OF RANGE REFERENCE UNITS LAB L501.0100 74-106 mg/dL High GLU 170 Result Comment: Fasting Glucose result greater than or equal to 126 mg/dL suggests DIABETES MELLITUS per A.D.A. criteria. LAB L501.1000 7-18 mg/dL High BUN 73 LAB L501.1100 0.70-1.30 mg/dL High CREAT,SERUM 6.81 Result Comment: The validity of the calculated GFR AND GFRAA in patients over 70 years has not been determined. Clinical correlation is essential. LAB L501.1110 >60 mL/min Low EST GFR 9 Result Comment: Non- GFR Calc LAB L501.1115 >60 mL/min Low EST GFR - AA 11 Result Comment: GFR Calc LAB L501.1300 10-20 RATIO Normal BUN/CRE 10.7 LAB L501.1800 3.2-5.0 g/dL Normal ALB 3.2 LAB L501.2200 8.5-10.1 mg/dL Low CA 8.2 LAB L501.2300 2.5-4.9 mg/dL Normal PHOS 4.8 LAB L501.5300 136-145 mmol/L NA Normal 145 LAB L501.5600 3.5-5.1 mmol/L K Normal 4.5 LAB L501.5900 98-107 mmol/L High CL 115 LAB L501.6100 21.0-32.0 mmol/L Low CO2 20.0 Performed By: #### L500.3600, L503.6075, L503.6150, L503.6550 #### [facility] [address] [place], [place], [address] IRON BINDING Collected: 08/10/2017 Status: F Source: EDUARDO FOFANA,TOTAL 9:52 AM [facility] REPOSITORY TYPE CODE TESTS RESULT OUT OF RANGE REFERENCE UNITS LAB L503.6075 250-450 ug/dL Normal TIBC 285 Performed By: #### L500.3600, L503.6075, L503.6150, L503.6550 #### [facility] [address] [place], [address] IRON Collected: 08/10/2017 Status: F Source: MONT[place]O 9:52 AM [facility] REPOSITORY TYPE CODE TESTS RESULT OUT OF RANGE REFERENCE UNITS LAB L503.6150 65-175 ug/dL Low IRON 33 Performed By: #### L500.3600, L503.6075, L503.6150, L503.6550 #### [facility] [address] [place], [address] FERRITIN Collected: 08/10/2017 Status: F Source: [place] 9:52 AM [facility] REPOSITORY TYPE CODE TESTS RESULT OUT OF RANGE REFERENCE UNITS LAB L503.6550 26-388 ng/mL Normal FERRITIN 62 Performed By: #### L500.3600, L503.6075, L503.6150, L503.6550 #### [facility] [address] [place], [address] VITAMIN D,25 HYDROXY Collected: 08/10/2017 Status: F Source: MONT[place]O 9:52 AM [facility] REPOSITORY TYPE CODE TESTS RESULT OUT OF RANGE REFERENCE UNITS LAB L506.1000 19.95-100.01 ng/mL Normal Vitamin D 30.8 25-OH Result Comment: Vitamin D 25(OH) Status Range Deficiency <20 ng/mL (50nmol/L) Insuffciency 20 - 30 ng/mL (50 - 75 nmol/L) Sufficiency 30 - 100 ng/mL (75 - 250 nmol/L) Toxicity >100 ng/mL (>250 nmol/L) Performed By: #### L506.1000 #### [facility] [address] [place], [address] PTHIN Collected: 08/10/2017 Status: F Source: MONT[place]O 9:52 AM [facility] REPOSITORY TYPE CODE TESTS RESULT OUT OF RANGE REFERENCE UNITS LAB L509.1000 18.4-80.1 pg/mL High PTHIN 173.5 Result Comment: Please Note: PTH INTACT METHOD AND REFERENCE RANGE CHANGE Effective 06/26/2017. Performed By: #### L509.1000 #### [facility] [address] [place], [address] PROGRESS Observed: 08/07/2017 Status: COMPLETED Source: RONALD 9:25 AM [facility] REPOSITORY HNO ID: [id number] Author: Lisbet Monk LPN Service: (none) Author Type: (none) Type: Progress Notes Filed: 08/09/2017 2:35 PM Note Text: Manual Readin/68 Pulse: 68 Reason for blood pressure check - Last BP elevated and Medication adjustment Patient is: Taking medication as prescribed Yes Took medication today Yes If no, date medication last taken N/A Experiencing side effects No BP was elevated at last appt 07/31/17. Losartan was increased to 100mg daily and Labetalol was increased to 300mg twice daily. Tolerating medication changes well. Denies any chest pain, unusual shortness of breath, or headaches. Does report some dizziness with position changes. No caffeine use. Past personal history of tobacco use; no current exposure. Alert and oriented. Pt has been identified by name and birthdate: Yes Allergies reviewed: Yes Latex allergy: no. Medication - prescribed and OTC reviewed and updated: Yes Do you need any prescription refills prior to your next visit: No Health Maintenance: Reviewed and not up to date and provider notified Patient advised to continue with current medications and would be contacted with any further instructions after review by PCP. Lisbet Monk LPN ALLERGIES ALLERGIES DATE TYPE / NAME / CODE REACTION SEVERITY SOURCE CODE 02/05/2018 Drug Sulfa (Sulfonamide Swelling Unknown [place] Allergy/41 Antibiotics)/[id number] [facility] [id number]( 1(RXNORM) [facility]) Repository 02/05/2018 Drug metformin/[id number](R Itching Unknown [place] Allergy/41 XNORM) Community [id number]([facility]) Repository 08/31/2014 DRUG AMLODIPINE BESYLATE SWELLING [facility]/[address] [place] [address] Main [id number]([facility]) Repository 02/13/2013 DRUG SULFAMETHOXAZOLE HIVES [address] Main [id number]([facility]) Repository 10/10/2011 DRUG ATORVASTATIN CALCIUM OTHER: SEE C [address] Main [id number](SN [place] OMED CT) Repository 01/02/2008 DRUG METFORMIN RASH [place] INGREDI/41 Clinic Main [id number]([facility] OMED [facility]) Repository ENCOUNTERS ENCOUNTERS ADMIT/DISCHARGE ACCOUNT ADMITTING ENCOUNTER LOCATION SOURCE NUMBER CLASS 07/30/2018 [id number] Ambulatory [facility] Hospital ing:LAB Repository 07/23/2018 [id number] Ambulatory [facility] Repository 06/19/2018/06/20/20 [id number] Ambulatory [address] [place] Repository 06/13/2018 [id number] Ambulatory [facility] Repository 06/11/2018 [id number] Ambulatory [facility] Hospital ing:LAB.FUTUR Repository E 04/30/2018 [id number] Ambulatory [facility] Repository 04/18/2018 [id number] Ambulatory [facility] Hospital ing:LAB Repository 04/04/2018 [id number] Ambulatory [facility] Repository 03/07/2018/03/11/20 [id number] Ambulatory [address] Repository 02/28/2018 [id number] Ambulatory [facility] Repository 02/26/2018 [id number] Ambulatory [facility] Repository 02/05/2018/02/06/20 [id number] Ambulatory BMSBuilding:B [place] 18 MS.[facility] Repository 02/03/2018 [id number] Ambulatory [facility] Repository 01/20/2018 [id number] Ambulatory [facility] Hospital ing:LAB Repository 01/07/2018/01/08/20 [id number] Ambulatory BMSBuilding:B [place] 18 MS.[facility] Repository 12/20/2017/12/21/19 [id number] Ambulatory [address] Hospital ing:CLSP Repository 12/20/2017 [id number] Ambulatory BMSBuilding:B [place] MS.CF.[facility] Repository 12/05/2017 [id number] Ambulatory [facility] Repository 12/04/2017/12/05/19 [id number] Ambulatory BMSBuilding:B [place] 18 MS.[facility] Repository 11/12/2017/11/13/19 [id number] Ambulatory BMSBuilding:B [place] 18 MS.[facility] Repository 11/07/2017/11/08/19 [id number] Ambulatory BMSBuilding:B [place] 18 [facility] Repository 11/06/2017/11/08/19 [id number] Ambulatory [address] Repository 11/06/2017 [id number] Ambulatory [facility] Hospital ing:LAB.VITA Repository E 11/01/2017/11/03/19 [id number] Ambulatory BMSBuilding:W [place] 18 [facility] Repository 10/31/2017/11/03/19 [id number] Heike, Inpatient [place] 18 [facility] ing:PCURoom: Repository [id number]: 1 10/31/2017 [id number] Gerardoeletsjohn, Ambulatory BMSBuilding:Chang Crain MS.[facility] Repository 10/31/2017 [id number] Gerardoeletsjohn, Ambulatory BMSBuilding:Chang Crain MS.CF.[facility] Repository 10/31/2017 [id number] Gerardoeletsky, Ambulatory BMSBuilding:Chang Crain MS.[facility] Repository 10/31/2017/11/03/19 [id number] Ambulatory BMSBuilding:W [place] 18 [facility] Repository 10/31/2017/11/01/19 [id number] Ambulatory BMSBuilding:Chang Smalls MS.[facility] Repository 10/31/2017 [id number] Ambulatory [facility] Hospital ing:POLAB3 Repository 10/30/2017/10/31/19 [id number] Ambulatory [address] Hospital ing:CLSP Repository 10/30/2017 [id number] Ambulatory BMSBuilding:Chang Clark MS.CF.[facility] Repository 10/25/2017/10/29/19 [id number] Ambulatory [address] Repository 10/25/2017/10/26/19 [id number] Ambulatory [address] Repository 10/24/2017 [id number] [facility] Repository 10/21/2017 [id number] Ambulatory [facility] ing:LAB.FUTUR Repository E 10/18/2017/10/19/19 [id number] Ambulatory BMSBuilding:B [place] 18 [facility] Repository 10/16/2017/10/18/19 [id number] Ambulatory [address] Repository 10/11/2017/10/12/19 [id number] Ambulatory [address] Repository 10/11/2017/10/12/19 [id number] Ambulatory [address] Repository 10/07/2017 [id number] Ambulatory [facility] Hospital ing:LAB Repository 10/07/2017 [id number] Ambulatory [facility] Hospital ing:LAB Repository 10/03/2017 [id number] Ambulatory [facility] Repository 10/02/2017 [id number] Ambulatory [facility] Repository 09/30/2017/10/01/19 [id number] Ambulatory [address] Hospital ing:EN Repository 09/30/2017 [id number] Ambulatory BMSBuilding:Chang Clark MS.CF.[facility] Repository 09/27/2017/10/01/19 [id number] Ambulatory [address] Repository 09/27/2017/09/28/19 [id number] Ambulatory [address] Repository 09/20/2017/09/21/19 [id number] Ambulatory BMSBuilding:B [place] [address] [facility] Repository 09/16/2017 [id number] [facility]P Repository 09/13/2017/09/14/19 [id number] Ambulatory [address] Repository 09/13/2017/09/14/19 [id number] Ambulatory [address] Repository 09/13/2017/09/17/19 [id number] Ambulatory [address] Repository 09/11/2017/09/12/19 [id number] Ambulatory [address] Hospital ing:SDC Repository 09/11/2017 [id number] Ambulatory BMSBuilding:B [place] MS.CF.[facility] Repository 09/10/2017/09/11/19 [id number] Ambulatory [address] HospitalBuild Hospital ing:LAB Repository 09/09/2017 [id number] [facility]ulatory [facility] Hospital ing:MEDOUTP Repository 09/09/2017 [id number] [facility] 09/03/2017/09/04/19 [id number] Ambulatory [address] Repository 09/02/2017 [id number] Ambulatory [facility] Hospital ing:MEDOUTP Repository 08/30/2017/08/30/19 [id number] Ambulatory BMSBuilding:B [place] 18 MS.[facility] Repository 08/30/2017/09/03/19 [id number] Ambulatory [address] Repository 08/30/2017/08/30/19 [id number] Ambulatory [address] Repository 08/30/2017/08/30/19 [id number] Ambulatory [address] Repository 08/26/2017 [id number] Ambulatory [facility] Hospital ing:MEDOUTP Repository 08/23/2017 [id number] Ambulatory [facility] Repository 08/23/2017 [id number] Ambulatory [facility] Repository 08/23/2017 [id number] Ambulatory [facility] Repository 08/23/2017 [id number] Ambulatory [facility] Repository 08/23/2017 [id number] Ambulatory [facility] Repository 08/23/2017 [id number] Ambulatory [facility] Repository 08/23/2017 [id number] Ambulatory [facility] Repository 08/23/2017 [id number] Ambulatory [facility] Repository 08/22/2017/08/22/19 [id number] Ambulatory [address] Repository 08/21/2017/08/21/19 [id number] Ambulatory BMSBuilding:B [place] 18 [facility] Repository 08/20/2017 [id number] Ambulatory BMSBuilding:B [place] MS.[facility] Repository 08/20/2017 [id number] Ambulatory BMSBuilding:B [place] MS.[facility] Repository 08/19/2017 [id number] [facility] [place] [facility] Repository 08/16/2017/08/19/19 [id number] Ambulatory [address] Repository 08/16/2017/08/16/19 [id number] Ambulatory [address] Repository 08/16/2017/08/16/19 [id number] Ambulatory [address] Repository 08/10/2017 [id number] [facility] [place] [facility]ITA Repository E 08/07/2017/08/07/19 [id number] Ambulatory [address] Repository PAYERS PAYERS ENCOUNTER GUARANTOR PAYER SUBSCRIBER SOURCE 07/30/2018 RODRI Wetzel Primary Insurance:[facility] Rashard [place] [id number] [facility] PHIPPSDOB: [facility] [id number] Number: Repository [address]Qpz: [phone]) [id number] [phone] () Date:1056-73-26[address], [place] [address]EE: CHECK WEBSITE 07/30/2018 Secondary RODRI Rashard [place] Insurance:MEDICARE PHIPPSDOB: [facility] PART A [facility] [id number] [facility] Number: Repository [id number] Date:2018-07-30 07/30/2018 Tertiary NOT GIVENUNK [place] Insurance:SELF PAY [facility] Number: Effective Repository Date:2018-07-30 07/23/2018 RODRI PHIPPSDOB: Primary RODRI PHIPPSDOB: Dawn [id number] Insurance:[facility] [id number] [place] [address] [address] [place], [place] Number: [place], [place] [address]Vvx: [phone]) [id number]: () Date:Plan Name:[facility] [phone] () 07/23/2018 Secondary RODRI PHIPPSDOB: University Insurance:MedicarePol [id number] Hospitals icy Number: 2 [facility] [id number] [place] Date:Plan Name:[facility] [id number]: [phone]) A [phone] () 07/23/2018 Tertiary RODRI PHIPPSDOB: Dawn Insurance:MedicarePol [id number] Hospitals icy Number: [address] [place] Repository [id number] [facility], [place] Date:Plan Name:[facility] [id number]: [phone] () 06/13/2018 RODRI PHIPPSDOB: Primary RODRI PHIPPSDOB: Dawn Insurance:[facility] [id number] [place] Repository [facility], [place] Number: [place], [place] [address]Mlj: 330 [id number] [phone]: () Date:Plan Name:[place] [phone] () 06/13/2018 Secondary RODRI PHIPPSDOB: Dawn Insurance:MedicarePol [id number] Hospitals icy Number: [address] [place] Repository [id number] [facility], [place] Date:Plan Name:[facility] [id number]: [phone] () 06/13/2018 Tertiary RODRI PHIPPSDOB: Dawn Insurance:MedicarePol [id number] Hospitals icy Number: [address] [place] Repository [id number] [facility], [place] Date:Plan Name:[facility] [address]Qpf: [phone] () 06/11/2018 RODRI [place] Primary Insurance:[facility] A [place] [id number] [facility] PHIPPSDOB: [facility] [id number] Number: Repository [address]Mgu: 330 [id number] [phone] () Date:6168-35-77DZ [address], [place] [address]TF: CHECK WEBSITE 06/11/2018 Secondary RODRI [place] Insurance:MEDICARE PHIPPSDOB: [facility] PART A [facility] [id number] Hospital Number: Repository [id number] Date:2018-06-09 06/11/2018 Tertiary NOT GIVENUNK [place] Insurance:SELF PAY [facility] Number: Effective Repository Date:2018-06-09 04/30/2018 RODRI PHIPPSDOB: Primary [facility] [id number] Insurance:Medical phippsDOB: [facility] [id number] Repository [place] Number: [address] [id number]: [phone]) [id number] [place], [place] [id number] () Date:Plan Name:Health [id number] 04/30/2018 Secondary RODRI PHIPPSDOB: University Insurance:[facility] [id number] [place] [address] Repository Number: [place], [place] [id number]: ([phone]) Date:Plan Name:[place] [phone] () 04/30/2018 Tertiary RODRI PHIPPSDOB: University Insurance:MedicarePol [id number] Hospitals icy Number: [address] [place] Repository [id number] [place] Date:Plan Name:[facility] 60100Rta: [phone] () 04/30/2018 Tertiary RODRI PHIPPSDOB: [place] Insurance:MedicarePol [id number] Hospitals icy Number: [address] [place] Repository [id number] Date:Plan Name:[facility] [address]Ubu: [phone] () 04/18/2018 RODRI [place] Primary Insurance:[facility] Jenna [place] [id number] [facility] PhippsDOB: [facility] 9601-74-40[place] Number: Repository [address]Wqb: 330 [id number] [phone] () Date:9028-00-26[address] [address]UYOVBMKVU, [place] [address]NE: CHECK WEBSITE 04/18/2018 Secondary RODRI Wetzel Mary Alice Insurance:MEDICARE PHIPPSDOB: [facility] PART A [facility] [id number] Hospital Number: Repository [id number] Date:2018-04-18 04/18/2018 Tertiary NOT GIVENUNK Eduardo Insurance:SELF PAY [facility] Number: Effective Repository Date:2018-04-18 04/04/2018 RODRI PHIPPSDOB: Primary [facility] [id number] Insurance:Medical phippsDOB: [facility] [id number] [address] [place] Number: [address] [address]Ycw: (330) [id number] [place], [place] [phone] (HP) Date:Plan Name:[facility] [address] 04/04/2018 Secondary RODRI PHIPPSDOB: University Insurance:Transplants [id number] [facility] [address] Repository Number: [place], [place] [id number] [address]Cjr: (330) Date:Plan Name:[address]7396 () 04/04/2018 Tertiary RODRI PHIPPSDOB: University Insurance:MedicarePol [id number] Hospitals icy Number: [id number] Date:Plan Name:[facility] 13984Blv: (330) A [phone] () 04/04/2018 Tertiary RODRI PHIPPSDOB: University Insurance:MedicarePol [id number] [facility] icy Number: [id number] [place] Date:Plan Name:[facility] 11119Ccg: (330) B [phone] () 02/28/2018 RODRI PHIPPSDOB: Primary [facility] [id number] Insurance:Medical phippsDOB: [facility] [id number] [address] Number: [address] [address]Nmt: [id number], [place] [phone] () Date:Plan Name:[facility] [address] 02/28/2018 Secondary RODRI PHIPPSDOB: University Insurance:Transplants [id number] [facility] RecipientPolicy [address] Repository Number: [place] [id number] [address]13[address]Lmm: (330) Date:Plan Name:[address]7396 () 02/28/2018 Tertiary RODRI PHIPPSDOB: Dawn Insurance:MedicarePol [id number] Hospitals icy Number: [address] Repository [id number] [facility], [place] Date:Plan Name:[facility] 696[address]Slj: (330) A [phone] () 02/28/2018 Tertiary RODRI PHIPPSDOB: Dawn Insurance:MedicarePol [id number] Hospitals icy Number: [address] Repository [id number] [facility], [place] Date:Plan Name:[facility] 16861Vya: (330) B [phone] () 02/26/2018 RODRI PHIPPSDOB: Primary RODRI PHIPPSDOB: Dawn Insurance:[facility] [id number] [place] [address], [place] Number: [place] [address]Bsd: 330 [id number] [address]Nzk: () Date:Plan Name:[address]396 () 02/26/2018 Secondary [facility] Insurance:Medical phippsDOB: [facility] [id number] Repository Number: [address] [id number] [facility], [place] Date:Plan Name:[facility] [address] 02/05/2018 RODRI Wetzel Primary Insurance:[facility] Jenna Clark [id number] [facility] PhippsDOB: [facility] 1840-76-15[place]NG[place] Number: Repository [address]Mfl: 330 [id number] [phone] () Date:1269-57-53HQ [address] [address]IMDHROOQI, [place] [address]NK: CHECK WEBSITE 02/05/2018 Secondary RODRI Clark Insurance:MEDICARE PHIPPSDOB: [facility] PART A [facility] [id number] Hospital Number: Repository [id number] Date:2018-01-28 02/05/2018 Tertiary NOT GIVENUNK Mary Alice Insurance:SELF PAY [facility] Number: Effective Repository Date:2018-02-04 02/03/2018 RODRI PHIPPSDOB: Primary [facility] [id number] Insurance:Medical phippsDOB: [facility] [id number] Repository [place], [place] Number: [address] [address]Aua: 330 [id number] [place], [place] [phone] () Date:Plan Name:[facility] [address] 02/03/2018 Secondary RODRI PHIPPSDOB: University Insurance:[facility] [id number] [place] [address] Repository Number: [place], [place] [id number] 932[address]Ndl: (330) Date:Plan Name:[place] [address] () 01/20/2018 RODRI A Primary Insurance:[facility] Jenna Mary Alice [id number] [facility] PhippsDOB: [facility] 5758-42-90SJQ[place] Number: Repository [address]Qke: 330 [id number] [phone] () Date:6730-43-78VH [address] [address]KMPZSIQKF, [place] [address]IG: CHECK WEBSITE 01/20/2018 Secondary RODRI A Mary Alice Insurance:MEDICARE PHIPPSDOB: Community PART A [facility] [id number] Hospital Number: Repository [id number] Date:2018-01-20 01/20/2018 Tertiary NOT GIVENUNK Mary Alice Insurance:SELF PAY [facility] Number: Effective Repository Date:2018-01-20 01/07/2018 RODRI A Primary Insurance:[facility] Jenna Eduardo [id number] [facility] PhippsDOB: [facility] 3507-29-33ULPGold [place], [place] Number: Repository [address]Oao: 330 [id number] [phone] (HP) Date:7871-07-88WV [address] [address]LMWA[place], [place] [address]RM: CHECK WEBSITE 01/07/2018 Secondary RODRI Rashard Clark Insurance:MEDICARE PHIPPSDOB: [facility] PART A [facility] [id number] Hospital Number: Repository [id number] Date:2018-01-07 01/07/2018 Tertiary NOT GIVENUNK Eduardo Insurance:SELF PAY [facility] Number: Effective Repository Date:2018-01-07 12/20/2017 RODRI A Primary Insurance:[facility] Jenna Mary Alice [id number] [facility] PhippsDOB: [facility] 3502-41-58EQX[place] Number: Repository [address]Wgq: 330 [id number] [phone] () Date:7431-67-60JB [address] [address], [place] [address]DB: CHECK WEBSITE 12/20/2017 Secondary NOT GIVENUNK Mary Alice Insurance:SELF PAY [facility] Number: Effective Repository Date:2017-12-06 12/20/2017 RODRI A Primary [facility] [id number] [facility] PhippsDOB: [facility] 5780-56-99CZL[place] Number: Repository [address]Jdo: 330 [id number] [phone] () Date:9530-42-70LS [address] [address]YVCIJJILF, [place] [address]UZ: CHECK WEBSITE 12/20/2017 Secondary NOT GIVENUNK Eduardo Insurance:SELF PAY [facility] Number: Effective Repository Date:2017-12-20 12/05/2017 RODRI PHIPPSDOB: Primary [facility] [id number] Insurance:Medical phippsDOB: [facility] [id number] Number: [address] [address]Lht: 330 [id number] [place], [place] [phone] () Date:Plan Name:[facility] [address] 12/04/2017 RODRI A Primary Insurance:[facility] Jenna Eduardo [id number] [facility] PhippsDOB: [facility] 2217-98-76HBS[place] Number: Repository [address]Ftb: 330 [id number] [phone] () Date:3515-24-01TL [address] [address]UFGSIQQDU, [place] [address]XW: CHECK WEBSITE 12/04/2017 Secondary NOT GIVENUNK Mary Alice Insurance:SELF PAY [facility] Number: Effective Repository Date:2017-12-04 11/12/2017 RODRI A Primary Insurance:[facility] Jenna Mary Alice [id number] [facility] PhippsDOB: [facility] 8118-87-59IRX[place] Number: Repository [address]Zln: 330 [id number] [phone] () Date:2468-70-05MW [address] [address]ITYKHOJNY, [place] [address]AO: CHECK WEBSITE 11/12/2017 Secondary NOT GIVENUNK Eduardo Insurance:SELF PAY [facility] Number: Effective Repository Date:2017-11-12 11/07/2017 RODRI A Primary Insurance:[facility] Jenna Mary Alice [id number] [facility] PhippsDOB: [facility] 8827-58-52DQX[place], [place] Number: Repository 67[address]Oyp: 330 [id number] [phone] () Date:0681-72-85IV [address] [address]AFCKGULCE, [place] [address]XG: CHECK WEBSITE 11/07/2017 Secondary NOT GIVENUNK Mary Alice Insurance:SELF PAY [facility] Number: Effective Repository Date:2017-11-07 11/06/2017 RODRI A Primary Insurance:[facility] Jenna Eduardo [id number] [facility] PhippsDOB: [facility] 9792-45-96YCV[place], [place] Number: Repository [address]Bgf: 330 [id number] [phone] () Date:0033-23-76SA [address] [address]EPWLESXFL, [place] [address]CH: CHECK WEBSITE 11/06/2017 Secondary NOT GIVENUNK Eduardo Insurance:SELF PAY [facility] Number: Effective Repository Date:2017-11-01 11/01/2017 RODRI A Primary Insurance:[facility] Jenna Eduardo [id number] [facility] PhippsDOB: [facility] 5321-58-91NZDGold [place] Number: Repository [address]Myr: 330 [id number] [phone] () Date:5110-94-42CS [address] [address]DHEXPKZWC, [place] [address]II: CHECK WEBSITE 11/01/2017 Secondary NOT GIVENUNK Mary Alice Insurance:SELF PAY [facility] Number: Effective Repository Date:2017-11-01 10/31/2017 RODRI A Primary Insurance:[facility] Jenna Eduardo [id number] [facility] PhippsDOB: [facility] 2980-57-37VQX[place] Number: Repository 179[address]Aqs: 330 [id number] [phone] () Date:8390-00-97ZW [address] [address]QQEXTAVWU, [place] [address]MH: CHECK WEBSITE 10/31/2017 Secondary NOT GIVENUNK Eduardo Insurance:SELF PAY [facility] Number: Effective Repository Date:2017-10-31 10/31/2017 RODRI A Primary Insurance:[facility] Jenna Mary Alice [id number] [facility] PhippsDOB: [facility] 8078-28-32AXY[place] Number: Repository [address]Bhh: 330 [id number] [phone] () Date:9601-17-59GS [address] [address]VJTDZWKSR, [place] [address]KW: CHECK WEBSITE 10/31/2017 Secondary NOT GIVENUNK Eduardo Insurance:SELF PAY [facility] Number: Effective Repository Date:2017-10-31 10/31/2017 RODRI A Primary Insurance:[facility] Jenna Eduardo [id number] [facility] PhippsDOB: [facility] 3830-01-49OXNGold [place] Number: Repository [address]Hvc: 330 [id number] [phone] (HP) Date:3245-37-58BB [address] [address]ZLCOBNAHD, [place] [address]JK: CHECK WEBSITE 10/31/2017 Secondary NOT GIVENUNK Eduardo Insurance:SELF PAY [facility] Number: Effective Repository Date:2017-10-31 10/31/2017 RODRI A Primary Insurance:[facility] Jenna Eduardo [id number] [facility] PhippsDOB: [facility] 7962-07-66DEAGold [place] Number: Repository [address]25[address]Bkv: 330 [id number] [phone] () Date:3450-39-90CJ [address] [address]ZDPBRFUGM, [place] [address]ZU: CHECK WEBSITE 10/31/2017 Secondary NOT GIVENUNK Eduardo Insurance:SELF PAY [facility] Number: Effective Repository Date:2017-10-31 10/31/2017 RODRI A Primary Insurance:[facility] Jenna Eduardo [id number] [facility] PhippsDOB: [facility] 6328-93-83HSVGold [place] Number: Repository 118[address]Fot: 330 [id number] [phone] () Date:5446-82-57KD [address] [address]MCLWXOJCA, [place] [address]KN: CHECK WEBSITE 10/31/2017 Secondary NOT GIVENUNK Mary Alice Insurance:SELF PAY [facility] Number: Effective Repository Date:2017-10-31 10/31/2017 RODRI A Primary Insurance:[facility] Jenna Eduardo [id number] [facility] PhippsDOB: [facility] 3213-84-76VLL[place] Number: Repository 04[address]Pbx: 330 [id number] [phone] () Date:5867-44-43LM [address] [address]VTZOTOHHR, [place] [address]SI: CHECK WEBSITE 10/31/2017 Secondary NOT GIVENUNK Mary Alice Insurance:SELF PAY [facility] Number: Effective Repository Date:2017-10-31 10/31/2017 RODRI Rashard Primary Insurance:[facility] Jenna Eduardo [id number] [facility] PhippsDOB: [facility] 1713-33-34VONGold [place] Number: Repository 75[address]Kmg: 330 [id number] [phone] () Date:7616-41-90EX [address] [address]YHCPLQXMO, [place] [address]HN: CHECK WEBSITE 10/31/2017 Secondary NOT GIVENUNK Mary Alice Insurance:SELF PAY [facility] Number: Effective Repository Date:2017-10-31 10/30/2017 RODRI Wetzel Primary Insurance:[facility] Jenna Eduardo [id number] [facility] PhippsDOB: [facility] 7928-48-16MFS[place] Number: Repository 86[address]Vzi: 330 [id number] [phone] () Date:8645-41-98WC [address] [address]JJZHKGAXX, [place] [address]KX: CHECK WEBSITE 10/30/2017 Secondary NOT GIVENUNK Eduardo Insurance:SELF PAY [facility] Number: Effective Repository Date:2017-10-18 10/30/2017 RODRI Wetzel Primary Insurance:[facility] Jenna Eduardo [id number] [facility] PhippsDOB: [facility] 4881-51-08CDY[place] Number: Repository 64[address]Xdi: 330 [id number] [phone] () Date:7365-10-30KR [address] [address]LBVTHDZLE, [place] [address]SV: CHECK WEBSITE 10/30/2017 Secondary NOT GIVENUNK Mary Alice Insurance:SELF PAY [facility] Number: Effective Repository Date:2017-10-30 10/24/2017 RODRI PHIPPSDOB: Primary RODRI PHIPPSDOB: Dawn [id number] Insurance:Medical [id number] [place] [address] Number: [place], [place] [address]Yfk: (422) [id number] [address]Biq: () Date:Plan Name:[address]7396 () 10/21/2017 RODRI A Primary Insurance:[facility] Jenna Mary Alice [id number] [facility] PhippsDOB: [facility] 5425-56-87CAGGold [place] Number: Repository [address]Voq: 330 [id number] [phone] () Date:9007-99-41XN [address] [address]SKYPYEKUR, [place] [address]XE: CHECK WEBSITE 10/21/2017 Secondary NOT GIVENUNK Eduardo Insurance:SELF PAY [facility] Number: Effective Repository Date:2017-10-21 10/18/2017 RODRI A Primary Insurance:[facility] Jenna Mary Alice [id number] [facility] PhippsDOB: [facility] 2125-33-40SSDGold [place] Number: Repository 89[address]Vak: 330 [id number] [phone] () Date:5620-53-29IK [address] [address]LAOXITFRW, [place] [address]OO: CHECK WEBSITE 10/18/2017 Secondary NOT GIVENUNK Eduardo Insurance:SELF PAY [facility] Number: Effective Repository Date:2017-10-18 10/07/2017 RODRI A Primary Insurance:[facility] Jenna Eduardo [id number] [facility] PhippsDOB: [facility] 6705-55-77CDD[place] Number: Repository 45[address]Vzi: 330 [id number] [phone] () Date:5821-50-46PM [address] [address]LQJIGJHFF, [place] [address]LI: CHECK WEBSITE 10/07/2017 Secondary NOT GIVENUNK Eduardo Insurance:SELF PAY [facility] Number: Effective Repository Date:2017-10-07 10/07/2017 RODRI A Primary Insurance:[facility] Jenna Mary Alice [id number] [facility] PhippsDOB: [address]11-26[place], [place] Number: Repository [address]Lqn: ([phone]) [id number] [phone] () Date:9981-05-97BF [address] [address]URTIIZPLF, [place] [address]GA: CHECK WEBSITE 10/07/2017 Secondary NOT GIVENUNK Eduardo Insurance:SELF PAY [facility] Number: Effective Repository Date:2017-10-07 10/03/2017 RODRI PHIPPSDOB: Primary RODRI PHIPPSDOB: Dawn Insurance:AnthemPolic [id number] y Number: [address] [place], [place] [id number] [place], [place] [address]Kvb: (330) Date:Plan Name:Health [address]Ise: () [phone] () 10/02/2017 RODRI PHIPPSDOB: Primary RODRI PHIPPSDOB: Dawn [facility] [id number] y Number: [address] [place], [place] [id number] [place], [place] [address]Xny: (008) Date:Plan Name:[place] [address]Tel: () [phone] () 09/30/2017 RODRI A Primary RODRI A Eduardo [id number] Insurance:ANTHEMPolic PHIPPSDOB: [facility] y Number: [id number] [place], [place] [id number] [facility] [address]Rot: (064) Date:2005-83-37FM [phone] () 955115IJMPJUG, [place] [address]ZJ: 09/30/2017 Secondary NOT GIVENUNK Mary Alice Insurance:SELF PAY [facility] Number: Effective Repository Date:2017-09-20 09/30/2017 RODRI A Primary RODRI A Mary Alice [id number] Insurance:ANTHEMPolic PHIPPSDOB: [facility] y Number: [id number] [place], [place] [id number] Repository [address]Rbc: (330) Date:1642-40-71SG [phone] () 324696EBDCOOO, [place] [address]OT: 09/30/2017 Secondary NOT GIVENUNK Eduardo Insurance:SELF PAY [facility] Number: Effective Repository Date:2017-09-30 09/20/2017 RODRI A Primary RODRI A Mary Alice [id number] Insurance:ANTHEMPolic PHIPPSDOB: Community [place] y Number: [id number] [place], [place] [id number] Repository [address]Qha: (330) Date:2228-00-82HE [phone] () 779294AKSATDF, [place] [address]AU: 09/20/2017 Secondary NOT GIVENUNK Mary Alice Insurance:SELF PAY [facility] Number: Effective Repository Date:2017-09-12 09/16/2017 RODRI A Primary RODRI A Mary Alice [id number] Insurance:ANTHEMPolic PHIPPSDOB: Community [place] y Number: [id number] [place], [place] [id number] Repository [address]Lud: (330) Date:6709-78-65DK [phone] () 644288WGFSHDI, [place] [address]TR: 09/16/2017 Secondary NOT GIVENUNK Mary Alice Insurance:SELF PAY [facility] Number: Effective Repository Date:2017-08-19 09/11/2017 RODRI A Primary RODRI A Mary Alice [id number] Insurance:ANTHEMPolic PHIPPSDOB: Community [place] y Number: [id number] [place], [place] [id number] Repository [address]Mtq: (330) Date:0918-78-41AL [phone] () 131003NQODJKY, [place] [address]RK: 09/11/2017 Secondary NOT GIVENUNK Mary Alice Insurance:SELF PAY [facility] Number: Effective Repository Date:2017-08-27 09/11/2017 RODRI A Primary RODRI A Mary Alice [id number] Insurance:ANTHEMPolic PHIPPSDOB: Community [place] y Number: [id number] [place], [place] [id number] Repository [address]Gry: (330) Date:0734-14-76UT [phone] () 999455NCIGNAO [place] [address]LG: 09/11/2017 Secondary NOT GIVENUNK Mary Alice Insurance:SELF PAY [facility] Number: Effective Repository Date:2017-09-11 09/10/2017 RODRI A Primary RODRI A Mary Alice [id number] Insurance:ANTHEMPolic PHIPPSDOB: [facility] SANTA y Number: [id number] [place] [id number] Repository [address]Wyw: (330) Date:7183-71-08CW [phone] () 868255GBXKYRC [place] [address]EV: 09/10/2017 Secondary NOT GIVENUNK Mary Alice Insurance:SELF PAY [facility] Number: Effective Repository Date:2017-09-10 09/09/2017 RODRI A Primary RODRI A Eduardo [id number] Insurance:ANTHEMPolic PHIPPSDOB: Community [place] y Number: [id number] [place], [place] [id number] Repository [address]16[address]Zid: (330) Date:3783-36-95PX [phone] () 400075ZDDQQUP [place] [address]LF: 09/09/2017 Secondary NOT GIVENUNK Eduardo Insurance:SELF PAY [facility] Number: Effective Repository Date:2017-08-19 09/09/2017 RODRI A Primary RODRI A Mary Alice [id number] Insurance:ANTHEMPolic PHIPPSDOB: Community [place] y Number: [id number] [place], [place] [id number] Repository 114[address]Iac: (330) Date:8995-87-55UK [phone] () 594390MUZXDQDCHINYERE VANESSA [address]KZ: 09/09/2017 Secondary NOT GIVENUNK Eduardo Insurance:SELF PAY [facility] Number: Effective Repository Date:2017-09-09 09/02/2017 RODRI A Primary RODRI A Eduardo [id number] Insurance:ANTHEMPolic PHIPPSDOB: [facility] SANTA y Number: [id number] [place], [place] [id number] Repository 826[address]Mgc: (330) Date:7086-48-08UO [phone] () 575120SBONQMH, [place] [address]GV: 09/02/2017 Secondary NOT GIVENUNK Eduardo Insurance:SELF PAY [facility] Number: Effective Repository Date:2017-08-19 08/30/2017 RODRI A Primary RODRI A Mary Alice [id number] Insurance:ANTHEMPolic PHIPPSDOB: [facility] SANTA y Number: [id number] [place], [place] [id number] Repository 80[address]Qvf: (330) Date:8000-05-54TD [phone] () 883017SMKJBPV, [place] [address]RA: 08/30/2017 Secondary NOT GIVENUNK Eduardo Insurance:SELF PAY [facility] Number: Effective Repository Date:2017-08-30 08/26/2017 RODRI A Primary RODRI A Eduardo [id number] Insurance:ANTHEMPolic PHIPPSDOB: [facility] SANTA y Number: [id number] [place], [place] [id number] Repository 43517Qol: (330) Date:9595-70-40TT [phone] () 406358KTMABLU, [place] [address]RQ: 08/26/2017 Secondary NOT GIVENUNK Deuardo Insurance:SELF PAY [facility] Number: Effective Repository Date:2017-08-16 08/23/2017 RODRI PHIPPSDOB: Primary RODRI PHIPPSDOB: University Insurance:AnthemPolic [id number] [place] [address] y Number: [address], [place] [id number] [address], [place] [address]Imt: (330) Date:Plan Name:[place] [id number]: (HP) [phone] (HP) 08/23/2017 RODRI PHIPPSDOB: Primary RODRI PHIPPSDOB: Dawn Insurance:[facility] [id number] [place] [address] y Number: [address], [place] [id number] [place], [place] [address]Ysy: (330) Date:Plan Name:[place] [id number]: (HP) [phone] (HP) 08/23/2017 RODRI PHIPPSDOB: Primary RODRI PHIPPSDOB: Dawn Insurance:[facility] [id number] [place] [address] [facility] [address], [place] Number: 195[address], [place] [address]Fpx: (330) Date:Plan Name:[place] [id number]: (HP) [phone] (HP) 08/23/2017 RODRI PHIPPSDOB: Primary RODRI PHIPPSDOB: Dawn Insurance:[facility] [id number] [place] [address] Number: [address] Effective Date:[facility] [address]Suf: (330) Name:Health [address]Wsb: (HP) [phone] (HP) 08/23/2017 RODRI PHIPPSDOB: Primary RODRI PHIPPSDOB: Dawn Insurance:[facility] [id number] [place] [address] y Number: [address], [place] [id number] [address], [place] [address]Hta: (330) Date:Plan Name:Health [address]35[address]Yib: (HP) [phone] (HP) 08/23/2017 RODRI PHIPPSDOB: Primary RODRI PHIPPSDOB: Dawn Insurance:[facility] [id number] [place] [address] y Number: 2 [place] Repository [facility], [place] [id number] [facility], [place] [address]Glp: (330) Date:Plan Name:Health [address]Byy: (HP) [phone] (HP) 08/23/2017 RODRI PHIPPSDOB: Primary RODRI PHIPPSDOB: Dawn Insurance:Self [id number] [facility] Number: 2 [place] Repository [facility], [place] Effective Date:Plan [place], [place] [address]Bas: ([phone]) Name:Health [id number]: (HP) [phone] () 08/23/2017 RODRI PHIPPSDOB: Primary RODRI PHIPPSDOB: Dawn Insurance:[facility] [id number] [place] [address] y Number: 2 [facility], [place] [id number] [facility], [place] [address]Xnm: (330) Date:Plan Name:Health [id number]: (HP) [phone] (HP) 08/21/2017 RODRI A Primary RODRI A Eduardo [id number] Insurance:ANTHEMPolic PHIPPSDOB: [facility] [place]: [id number] [id number] Repository [address]Jky: (330) Date:[phone] (HP) [id number] [id number]: 08/21/2017 Secondary NOT GIVENUNK Mary Alice Insurance:SELF PAY [facility] Number: Effective Repository Date:2017-08-19 08/20/2017 RODRI A Primary RODRI A Mary Alice [id number] Insurance:ANTHEMPolic PHIPPSDOB: Community [place] y Number: [id number] [id number] Repository [address]Vlr: (330) Date:[phone] () [id number], [place] [address]WD: 08/20/2017 Secondary NOT GIVENUNK Eduardo Insurance:SELF PAY [facility] Hospital Number: Effective Repository Date:2017-08-19 08/20/2017 RODRI A Primary RODRI A Eduardo [id number] Insurance:ANTHEMPolic PHIPPSDOB: Community [place] [id number] [id number] Repository [address]Vae: [phone]) Date:7649-01-15[phone] () [id number], [place] [address]JB: 08/20/2017 Secondary NOT GIVENUNK Mary Alice Insurance:SELF PAY [facility] Number: Effective Repository Date:2017-08-19 08/19/2017 RODRI A Primary RODRI A Eduardo [id number] Insurance:ANTHEMPolic PHIPPSDOB: Community [place] Number: [id number] [id number] Repository [address]Hji: [phone]) Date:7356-06-45[phone] () [id number], [place] [address]VR: 08/19/2017 Secondary NOT GIVENUNK Eduardo Insurance:SELF PAY [facility] Number: Effective Repository Date:2017-08-16 08/10/2017 RODRI A Primary RODRI A Eduardo [id number] Insurance:ANTHEMPolic PHIPPSDOB: Community [place] Number: [id number] [id number] Repository [address]Zac: [phone]) Date:0001-73-55[phone] () [id number], [place] [address]FE: 08/10/2017 Secondary NOT GIVENUNK Eduardo Insurance[facility]LF [facility] Effective Repository Date:2017-06-13
== END ==
PROVIDERS: Family Provider Family Medicine; PCP Family Medicine; Referring Provider Internal Medicine Endocrinology, Diabetes & Metabolism; Visit Provider Internal Medicine Endocrinology, Diabetes & Metabolism
DX: E11.39 Type 2 diabetes mellitus with other diabetic ophthalmic complication (principal); E11.65 Type 2 diabetes mellitus with hyperglycemia
CPT/HCPCS: 36415; 80053; 83036

== ENCOUNTER → 2018-09-12 05:39 | Outpatient (CLI) | payer OTHER, MEDICARE, SELFPAY ==
[2017-12-19 08:37] VITALS: BMI 29.2
[2018-09-12 07:28] LABS: Hematocrit 33.4 % (40-54); Hemoglobin 10.8 g/dl (13.0-16.5); Mean Corp Hgb Conc 32.3 g/gl (32-36); Mean Corpuscular Hgb 31.7 pg (27.0-32.0); Mean Corpuscular Volume 97.9 fL (80-94); Mean Platelet Vol. 9.9 fl (6.2-12.0); Platelet Count 236 K/mm3 (150-450); RBC Distribution Width CV 13.9 % (11.6-14.6); RBC Distribution Width SD 49.4 fl (35.1-43.9); Red Blood Count 3.41 M/mm3 (4.6-6.2); White Blood Count 7.5 K/mm3 (4.4-11.0)
[2018-09-12 07:30] LABS: Scan Indicated on CBC? Y/N NO
[2018-09-12 07:42] LABS: AST(SGOT) 23 U/L (15-37); Alanine Aminotransfer ALT/SGPT 19 U/L (16-61); Albumin, Serum 3.7 g/dL (3.2-5.0); Alkaline Phosphatase 85 U/L (45-117); Anion Gap 8 (5-15); BUN 26 mg/dL (7-18); BUN/Creat Ratio 4.5 RATIO (10-20); Calcium,Total 8.4 mg/dL (8.5-10.1); Chloride 102 mmol/L (98-107); Creatinine, Serum 5.77 mg/dL (0.70-1.30); EST Glomerular Filtration Rate 11 mL/min (>60); Est Glom Filt Rate - Afr Amer 13 mL/min (>60); Globulin 3.8 g/dL (2.2-4.2); Glucose 103 mg/dL (74-106); Potassium 4.1 mmol/L (3.5-5.1); Protein, Total 7.5 g/dL (6.4-8.2); Sodium Level 140 mmol/L (136-145)
== END ==
PROVIDERS: Family Provider Family Medicine; PCP Family Medicine; Referring Provider Family Medicine; Visit Provider Family Medicine
DX: E11.22 Type 2 diabetes mellitus with diabetic chronic kidney disease (principal); I12.9 Hypertensive chronic kidney disease with stage 1 through stage 4 chronic kidney disease, or unspecified chronic kidney disease; N18.4 Chronic kidney disease, stage 4 (severe); E78.5 Hyperlipidemia, unspecified
CPT/HCPCS: 36415; 80053; 85027

== ENCOUNTER 2018-10-15 06:38 | Day surgery (SDC) | payer OTHER, MEDICARE, SELFPAY ==
[2018-09-16 14:18] VITALS: BMI 28.9
[2018-10-08 06:18] LABS: Hematocrit 37.1 % (40-54); Hemoglobin 11.9 g/dl (13.0-16.5); Mean Corp Hgb Conc 32.1 g/gl (32-36); Mean Corpuscular Hgb 31.6 pg (27.0-32.0); Mean Corpuscular Volume 98.7 fL (80-94); Mean Platelet Vol. 9.8 fl (6.2-12.0); Platelet Count 218 K/mm3 (150-450); RBC Distribution Width CV 14.9 % (11.6-14.6); RBC Distribution Width SD 53.3 fl (35.1-43.9); Red Blood Count 3.76 M/mm3 (4.6-6.2); White Blood Count 8.6 K/mm3 (4.4-11.0)
[2018-10-08 06:35] LABS: Anion Gap 9 (5-15); BUN 41 mg/dL (7-18); BUN/Creat Ratio 5.5 RATIO (10-20); Calcium,Total 9.3 mg/dL (8.5-10.1); Chloride 102 mmol/L (98-107); Creatinine, Serum 7.48 mg/dL (0.70-1.30); EST Glomerular Filtration Rate 8 mL/min (>60); Est Glom Filt Rate - Afr Amer 10 mL/min (>60); Glucose 124 mg/dL (74-106); Potassium 5.1 mmol/L (3.5-5.1); Scan Indicated on CBC? Y/N NO; Sodium Level 141 mmol/L (136-145)
[2018-10-14 10:28] VITALS: BMI 28.8
[2018-10-14 10:44] VITALS: BMI 28.8
--- NOTE | 2018-10-15 08:42 | PCM.OPRPT ---
Problem List (1) Problem with dialysis access Status: Chronic Qualifiers: Encounter type: initial encounter Qualified Code(s): T82.898A - Other specified complication of vascular prosthetic devices, implants and grafts, initial encounter Report of Operation Date of Procedure: 10/15/18 Pre-Operative Diagnosis: Diminished flow left forearm radiocephalic arteriovenous hemodialysis fistula Post-Operative Diagnosis: 2 areas of proximal to mid fistula high-grade venous stenosis Surgery/Procedure Performed:: Left upper extremity fistulogram with 6 x 40 mm conquest angioplasty Description of Surgical Findings:: Timeout and informed consent was obtained. 63-year-old gent was taken to the special procedures lab placed on the table. He received 50 mcg fentanyl 1 mg of Versed as intravenous sedation. The left arm was sterilely prepped draped. Ultrasound was used to identify the cephalic vein in the more proximal forearm volar surface. 2% lidocaine was instilled under ultrasound guidance. Micropuncture needle inserted into the cephalic vein retrograde with flow. Micropuncture wire inserted. 6 Serbian short sheath dilator was inserted. Using 035 angled Glidewire a 4 Serbian angled glide cath was advanced into the radial artery proximal to the anastomosis. Using a total of 30 cc of Isovue contrast a fistulogram was obtained. This demonstrated 2 areas of a high-grade venous stenosis 1 with an approximately 3 cm from the fistula origin and one approximately 7 cm. These were treated with a 6 x 40 mm conquest balloon. The balloon was insufflated several times all the way up to 30 abraham of pressure. Then exchanged out over a Glidewire 4 Serbian glide cath was reinserted completion views now demonstrated dramatic improvement and resolution of the areas of venous stenosis. Fistulogram was proceeded for the remainder of the upper arm. This demonstrated good left upper arm basilic vein outflow and good central venous outflow. The sheath was removed and a U suture of 4 gallons placed. There is a strong pulse thrill and bruit at the completion Histogram demonstrates a left forearm radiocephalic arterial venous fistula. There are 2 areas within the proximal 10 cm of the fistula that have high-grade 90% venous stenosis. Adjacent to these areas of there are 2 areas of relative aneurysmal change. There is some spasm of the cephalic vein of the proximal forearm. There is good basilic vein outflow. There is no cephalic vein outflow seen of the upper arm. There is good central venous outflow. Impression Successfully treated fistula proximal stenosis with 6 x 40 mm conquest balloon. Benjamín Espino M.D., F.A.C.S. Type of Anesthesia:: IV Sedation, Local
--- NOTE | 2018-10-15 08:48 | OP.PCM_ITS ---
Problem List (1) Problem with dialysis access Status: Chronic Qualifiers: Encounter type: initial encounter Qualified Code(s): T82.898A - Other specified complication of vascular prosthetic devices, implants and grafts, initial encounter Report of Operation Date of Procedure: 10/15/18 Pre-Operative Diagnosis: Diminished flow left forearm radiocephalic arteriovenous hemodialysis fistula Post-Operative Diagnosis: 2 areas of proximal to mid fistula high-grade venous stenosis Surgery/Procedure Performed:: Left upper extremity fistulogram with 6 x 40 mm co nquest angioplasty Description of Surgical Findings:: Timeout and informed consent was obtained. 63-year-old gent was taken to the special procedures lab placed on the table. He received 50 mcg fentanyl 1 mg of Versed as intravenous sedation. The left arm was sterilely prepped draped. Ultrasound was used to identify the cephalic vein in the more proximal forearm volar surface. 2% lidocaine was instilled under ultrasound guidance. Micropuncture needle inserted into the cephalic vein retrograde with flow. Micropuncture wire inserted. 6 [place] short sheath dilator was inserted. Using 035 angled Glidewire a 4 [place] angled glide cath was advanced into the radial artery proximal to the anastomosis. Using a total of 30 cc of Isovue contrast a fistulogram was obtained. This demonstrated 2 areas of a high-grade venous stenosis 1 with an approximately 3 cm from the fistula origin and one approximately 7 cm. These were treated with a 6 x 40 mm conquest balloon. The balloon was insufflated several times all the way up to 30 abraham of pressure. Then exchanged out over a Glidewire 4 [place] glide cath was reinserted completion views now demonstrated dramatic improvement and resolution of the areas of venous stenosis. Fistulogram was proceeded for the remainder of the upper arm. This demonstrated good left upper arm basilic vein outflow and good central venous outflow. The sheath was removed and a U suture of 4 gallons placed. There is a strong pulse thrill and bruit at the completion Histogram demonstrates a left forearm radiocephalic arterial venous fistula. There are 2 areas within the proximal 10 cm of the fistula that have high-grade 90% venous stenosis. Adjacent to these areas of there are 2 areas of relative aneurysmal change. There is some spasm of the cephalic vein of the proximal forearm. There is good basilic vein outflow. There is no cephalic vein outflow seen of the upper arm. There is good central venous outflow. Impression Successfully treated fistula proximal stenosis with 6 x 40 mm conquest balloon. Benjamín Espino M.D., F.A.C.S. Type of Anesthesia:: IV Sedation, Local
== END 2018-10-15 09:50 | disposition home or self-care (01) ==
PROVIDERS: Family Provider Family Medicine; PCP Family Medicine; Referring Provider Surgery; Visit Provider Surgery
DX: T82.858A Stenosis of other vascular prosthetic devices, implants and grafts, initial encounter (principal); I12.0 Hypertensive chronic kidney disease with stage 5 chronic kidney disease or end stage renal disease; E11.22 Type 2 diabetes mellitus with diabetic chronic kidney disease; N18.6 End stage renal disease; Z99.2 Dependence on renal dialysis; D64.9 Anemia, unspecified; E78.00 Pure hypercholesterolemia, unspecified; Z79.4 Long term (current) use of insulin; Z79.899 Other long term (current) drug therapy; Z87.891 Personal history of nicotine dependence
CPT/HCPCS: 36415; 36902; 76937; 80048; 85027; 99152; 99153; Q9967; C1725; C1769

== ENCOUNTER → 2018-10-24 05:52 | Outpatient (CLI) | payer OTHER, MEDICARE, SELFPAY ==
[2018-10-14 10:44] VITALS: BMI 28.8
[2018-10-24 07:50] LABS: AST(SGOT) 22 U/L (15-37); Alanine Aminotransfer ALT/SGPT 18 U/L (16-61); Albumin, Serum 3.9 g/dL (3.2-5.0); Alkaline Phosphatase 78 U/L (45-117); Anion Gap 7 (5-15); BUN 35 mg/dL (7-18); BUN/Creat Ratio 5.3 RATIO (10-20); Calcium,Total 9.1 mg/dL (8.5-10.1); Chloride 102 mmol/L (98-107); Cholesterol 156 mg/dL (200); Creatinine, Serum 6.57 mg/dL (0.70-1.30); EST Glomerular Filtration Rate 9 mL/min (>60); Est Glom Filt Rate - Afr Amer 11 mL/min (>60); Globulin 3.8 g/dL (2.2-4.2); Glucose 97 mg/dL (74-106); High Density Lipoprotein 44 mg/dL; Potassium 4.1 mmol/L (3.5-5.1); Protein, Total 7.7 g/dL (6.4-8.2); Sodium Level 141 mmol/L (136-145); Triglycerides 166 mg/dL; Very Low Density Lipoprotein 33 mg/dL (5-40)
== END ==
PROVIDERS: Family Provider Family Medicine; PCP Family Medicine; Referring Provider Internal Medicine Endocrinology, Diabetes & Metabolism; Visit Provider Internal Medicine Endocrinology, Diabetes & Metabolism
DX: E11.39 Type 2 diabetes mellitus with other diabetic ophthalmic complication (principal); E11.65 Type 2 diabetes mellitus with hyperglycemia
CPT/HCPCS: 36415; 80053; 80061; 83036

== ENCOUNTER → 2018-12-05 17:03 | Outpatient (CLI) | payer OTHER, MEDICARE, SELFPAY ==
[2018-10-14 10:44] VITALS: BMI 28.8
--- NOTE | 2018-12-05 17:10 | RAD_ITS ---
HISTORY:Knee pain for past year. Knee pain for past year. COMPARISON: None FINDINGS: # of images incl. paperwork: 4 XR Knee Complete 4 Views or More: Right BONE AND JOINTS: No acute fracture or subluxation. Borderline patella nury SOFT TISSUES: Unremarkable. No radiopaque foreign body. RAD/Knee 4 or More Views IMPRESSION: No acute pathology at 2229 Reported and signed by: Mechelle Marsh DO Electronically Signed: Mechelle Marsh DO at 22:28 EDT Tel , Service support ,
== END ==
PROVIDERS: Family Provider Family Medicine; PCP Family Medicine; Referring Provider Family Medicine; Visit Provider Family Medicine
DX: M25.561 Pain in right knee (principal)
CPT/HCPCS: 73564

== ENCOUNTER → 2018-12-10 05:56 | Outpatient (CLI) | payer OTHER, MEDICARE, SELFPAY ==
[2018-10-14 10:44] VITALS: BMI 28.8
[2018-12-10 07:36] LABS: Hematocrit 31.5 % (40-54); Hemoglobin 10.2 g/dl (13.0-16.5); Mean Corp Hgb Conc 32.4 g/gl (32-36); Mean Corpuscular Hgb 31.3 pg (27.0-32.0); Mean Corpuscular Volume 96.6 fL (80-94); Mean Platelet Vol. 9.8 fl (6.2-12.0); Platelet Count 307 K/mm3 (150-450); RBC Distribution Width CV 13.7 % (11.6-14.6); RBC Distribution Width SD 46.1 fl (35.1-43.9); Red Blood Count 3.26 M/mm3 (4.6-6.2); White Blood Count 10.1 K/mm3 (4.4-11.0)
[2018-12-10 07:46] LABS: ALB/GLOB Ratio 0.9 RATIO (0.9-2.4); AST(SGOT) 16 U/L (15-37); Alanine Aminotransfer ALT/SGPT 15 U/L (16-61); Albumin, Serum 3.6 g/dL (3.2-5.0); Alkaline Phosphatase 68 U/L (45-117); Anion Gap 10 (5-15); BUN 37 mg/dL (7-18); BUN/Creat Ratio 5.1 RATIO (10-20); Calcium,Total 8.7 mg/dL (8.5-10.1); Chloride 101 mmol/L (98-107); EST Glomerular Filtration Rate 8 mL/min (>60); Est Glom Filt Rate - Afr Amer 10 mL/min (>60); Glucose 112 mg/dL (74-106); Potassium 3.9 mmol/L (3.5-5.1); Protein, Total 7.6 g/dL (6.4-8.2); Sodium Level 140 mmol/L (136-145)
[2018-12-10 07:47] LABS: Scan Indicated on CBC? Y/N NO
[2018-12-10 09:16] LABS: Hemoglobin A1c 6.9 % (4.2-6.3)
== END ==
PROVIDERS: Family Provider Family Medicine; PCP Family Medicine; Referring Provider Family Medicine; Visit Provider Family Medicine
DX: E11.22 Type 2 diabetes mellitus with diabetic chronic kidney disease (principal); N18.6 End stage renal disease
CPT/HCPCS: 36415; 80053; 83036; 85027

== ENCOUNTER → 2018-12-22 09:12 | Outpatient (CLI) | payer OTHER, MEDICARE, SELFPAY ==
[2018-12-19 08:29] VITALS: BMI 30.1
[2018-12-22 11:13] LABS: Rubella IgG < 0.2 IU/mL
[2018-12-24 15:09] LABS: Mumps Antibody,IgG > 300.0 AU/mL (Immune >10.9); Rubeola IgG Ab > 300.0 AU/mL (Immune >29.9)
== END ==
PROVIDERS: Family Provider Family Medicine; PCP Family Medicine; Referring Provider Family Medicine; Visit Provider Family Medicine
DX: Z01.84 Encounter for antibody response examination (principal)
CPT/HCPCS: 36415; 86735; 86762; 86765

== ENCOUNTER 2019-01-02 08:30 | Outpatient (RCR) | payer OTHER, MEDICARE, SELFPAY ==
[2018-10-14 10:44] VITALS: BMI 28.8
[2018-12-12 12:19] VITALS: BP 150/70; PULSE 76; RESP 18; TEMP 36.6; BMI 30.1
--- NOTE | 2018-12-12 13:45 | PCM.WC.HP ---
(1) Blister (nonthermal), right great toe, initial encounter Status: Acute Current Visit: Yes Code(s): S90.421A - Blister (nonthermal), right great toe, initial encounter (2) Chronic kidney disease Status: Acute Current Visit: No Qualifiers: Code(s): N18.9 - Chronic kidney disease, unspecified (3) Renal failure Status: Chronic Current Visit: No Qualifiers: Code(s): N19 - Unspecified kidney failure (4) Type II diabetes mellitus Status: Chronic Current Visit: No Code(s): E11.9 - Type 2 diabetes mellitus without complications (5) Diabetic foot ulcer associated with type 2 diabetes mellitus Status: Acute Current Visit: Yes Code(s): E11.621 - Type 2 diabetes mellitus with foot ulcer; L97.509 - Non-pressure chronic ulcer of other part of unspecified foot with unspecified severity (6) Pressure ulcer, stage II Status: Acute Current Visit: Yes Code(s): L89.92 - Pressure ulcer of unspecified site, stage 2 History of Present Illness Date of Service: 12/12/18 Chief Complaint: Follow-up recurrent right great toe ulcer History of Wound: This is a 63-year-old white male diabetic with recurrent decubitus ulcer of the right great toe from blistering from his shoes then opens. 2 weeks ago this started was seen by his family doctor Dr. Bowie and was debrided started on antibiotics and given Bactroban to put on it. Patient was referred to us by his family doctor for the wound center Past Medical History Past Medical History: Chronic Problems (Last Reviewed 02/05/18 @ 07:28 by Argelia Cody) Problem with dialysis access (Chronic) History of angioplasty of peripheral vessel (Chronic) Renal failure (Chronic) Essential hypertension (Chronic) Type II diabetes mellitus (Chronic) Hypercholesterolemia (Chronic) Anemia (Chronic) Past Medical History: Diabetic foot ulcer of the right great toe stage II. Renal failure on dialysis Surgical History: - - TURP, ORIF right radius/ulna, 09/11/17 L AV fistula, 10/30/17 LUE fistulagram w/ balloon angioplasty. Allergies/Adverse Reactions: Allergies metformin Allergy (Verified 02/05/18 07:28) Itching Sulfa (Sulfonamide Antibiotics) Allergy (Verified 02/05/18 07:28) Swelling Home Medications: Ambulatory Orders Medication Instructions Recorded Insulin Glargine [Lantus SoloStar 26 units SC DAILY 04/07/13 Pen] calcitriol 0.25 mcg capsule 0.5 mcg PO DAILY 07/10/17 finasteride 5 mg tablet 5 mg PO DAILY 07/10/17 furosemide 20 mg tablet 40 mg PO BID 07/10/17 losartan 50 mg tablet 100 mg PO DAILY 07/10/17 rosuvastatin 10 mg tablet 10 mg PO DAILY 07/10/17 Ergocalciferol [Vitamin D] 50,000 unit PO QMONTH 08/19/17 Insulin Lispro [Humalog] 10 - 12 unit SC BID 08/19/17 Iron Polysaccharide Complex 150 mg PO DAILYCM 08/19/17 [Ferrex 150] Nifedipine [Nifedipine ER] 60 mg PO DAILY 09/09/17 Calcium Acetate [Phoslo Gel Cap] 1,334 mg PO TIDCM 09/16/17 Folic Acid/Vitamin B Comp W-C 1 cap PO DAILY #30 cap 11/02/17 [Nephrocaps, Renaphro] Labetalol [Trandate (Beta Reuben)] 300 mg PO BID tab 11/02/17 - Family History Maternal Family History: Family History (Last Reviewed 02/05/18 @ 07:28 by Argelia Cody) Mother Diabetes Hypertension Heart disease Cancer Brother Diabetes Father Diabetes Cancer Cancer - Lung, Diabetes, Heart Disease, Hypertension Paternal Family History: Family History (Last Reviewed 02/05/18 @ 07:28 by Argelia Cody) Mother Diabetes Hypertension Heart disease Cancer Brother Diabetes Father Diabetes Cancer Cancer - Pancreatic, Diabetes Smoking Status: Former smoker Review of Systems Constitutional: Denies: Chills, Fever Eyes: Denies: Blurred vision, Drainage, Pain HEENT: Denies: Difficulty Hearing, Difficulty Swallowing, Sore Throat, Visual Changes Cardiovascular: Denies: Chest Pain, Palpitations, Syncope Respiratory: Denies: Cough, Shortness of Breath Gastrointestinal: Denies: Abdominal Pain, Nausea, Vomiting Genitourinary: Denies: Dysuria, Frequency Musculoskeletal: Denies: Joint Pain, Muscle pain Skin: Reports: - - Right great toe ulcer. Denies: Jaundice, Rash Neurological: Denies: Balance problems, Change in Speech, Difficulty swallowing, Focal weakness Psychiatric: Denies: Anxiety, Depression Endocrine: Denies: Change in Body Habitus Hematologic/ Lymphatic: Denies: Adenopathy - Physical Exam Vital Signs Temp Pulse Resp BP 97.8 F 76 18 150/70 H 12/12/18 12:19 12/12/18 12:19 12/12/18 12:19 12/12/18 12:19 General: Oriented x3, Cooperative, Well developed HEENT: Atraumatic, PERRLA Oral: Moist Mucosa Neck: Supple, No JVD Lungs: Clear to auscultation, Normal air movement Cardiovascular: Regular rate, Regular Rhythm Abdomen: Bowel Sounds Present, Soft, Non Tender, No Hepato-splenomegaly Extremities: No clubbing, No edema, - - Great toe ulcer stage II Wound Measurements and Assessment WC - Nurse 1 - General Ulcer Measurement Start: 12/12/18 12:19 Freq: Status: Active Protocol: Activity Type Activity Date Activity User E-Sign Co-Sign Detail Recorded Client Recorded Date Recorded By Document 12/12/18 12:19 AN [id number] 12/12/18 12:58 AN 12/12/18 12:19 Wound Center Nurse 1 [Ulcer Assessment] #3 right great toe -Current Size (cm) - Length 14.5 -Current Size (cm) - Width 1.5 -Current Size (cm) - Depth 0.1 -Total Square Cm 21.75 -Classification - Thickness Full Thickness without Exposed Support Structure -Exudate Amt Medium -Exudate Type Serosanguineous -Wound Margin Distinct, Outline Attached -Granulation Amt Large (67-100%) -Granulation Quality Red -Slough/Fibrin Yes -Necrosis Amt Small (1-33%) -Necrotic Tissue Type Adherent Slough -Structure Exposed None/Limited to Skin Breakdown -Texture (Mila-wound Skin Appearance) Assessed Callus -Moisture (Mila-wound Skin Appearance Assessed ) -Color (Mila-wound Skin Appearance) Assessed -Temperature (Mila-wound Skin No Abnormality Appearance) (Pt Warm) -Tenderness on Palpation (Mila-wound No Skin Appearance) -Ulcer Cleansing Rinsed/ Irrigated with Saline -Foul Odor after Cleansing No -Anesthetic Used 4% Lidocaine Solution [Edema Assessment] -Right Calf (cm) 38 -Right Ankle (cm) 22.7 -Left Calf (cm) 39.8 -Left Ankle (cm) 23.2 Musculoskeletal: No Tenderness to Palpation of Joints or Extremities Lymphatic: No Cervical, Supraclavicular, or Inguinal Adenopathy Neurological: Cranial nerves II-XII grossly intact, Neuro grossly intact Psych/Mental Status: Normal Affect, Appropriate Debridement Note Wound debrided: Right great lateral toe Type of Debridement: Excisional debridement Anesthesia Used: 5% Lidocaine Gel Depth: Down to and including healthy tissue Percentage of wound debrided: 100 Instrument Used: 7mm curette, - - Nippers iris scissors Tissue Removed: Callus devitalized tissue and fibrin Severity: Limited To Skin Breakdown Amount of bleeding with debridement: Moderate Bleeding Controlled with: Compression and gauze Patient tolerated procedure well Assessment/Plan Active Problems (Last Reviewed 02/05/18 @ 07:28 by Argelia Cody) Blister (nonthermal), right great toe, initial encounter (Acute) Diabetic foot ulcer associated with type 2 diabetes mellitus (Acute) Pressure ulcer, stage II (Acute) Assessment: Right great toe ulcer from diabetes stage II. Renal failure dialysis Plan: Wash foot with Hibiclens or antibacterial soap apply Promogran to the wound base cover with Adaptic gauze tape. Follow-up in 1 week
[2018-12-19 08:29] VITALS: BP 136/64; PULSE 78; RESP 18; TEMP 36.3; BMI 30.1
--- NOTE | 2018-12-19 09:16 | PN.PCM_ITS ---
(1) Blister (nonthermal), right great toe, initial encounter Status: Acute Current Visit: Yes Code(s): S90.421A - Blister (nonthermal), right great toe, initial encounter (2) Chronic kidney disease Status: Acute Current Visit: Yes Qualifiers: Code(s): N18.9 - Chronic kidney disease, unspecified (3) Renal failure Status: Chronic Current Visit: Yes Qualifiers: Code(s): N19 - Unspecified kidney failure (4) Type II diabetes mellitus Status: Chronic Current Visit: Yes Code(s): E11.9 - Type 2 diabetes mellitus without complications (5) Diabetic foot ulcer associated with type 2 diabetes mellitus Status: Acute Current Visit: Yes Code(s): E11.621 - Type 2 diabetes mellitus with foot ulcer; L97.509 - Non-pressure chronic ulcer of other part of unspecified foot with unspecified severity (6) Pressure ulcer, stage II Status: Acute Current Visit: Yes Code(s): L89.92 - Pressure ulcer of unspecified site, stage 2 (7) Type 2 diabetes mellitus with stage 2 decubitus ulcer of toe Status: Acute Current Visit: Yes Code(s): E11.621 - Type 2 diabetes mellitus with foot ulcer; L89.892 - Pressure ulcer of other site, stage 2 Type of Wound Chief Complaint: Follow-up recurrent right great toe ulcer History of Wound: This is a 63-year-old white male diabetic with recurrent decubitus ulcer of the right great toe from blistering from his shoes then opens. 2 weeks ago this started was seen by his family doctor Dr. Bowie and was debrided started on antibiotics and given Bactroban to put on it. Patient was referred to us by his family doctor for the wound center Progress of Wound: Today the right great toe is smaller extremely flat just needs to get new skin on top debrided a lot of callus around the edge. Tolerated treatment well. Doing well on Promogran. Applying for skin subs. - Physical Exam Vital Signs Temp Pulse Resp BP 97.4 F L 78 18 136/64 H 12/19/18 08:29 12/19/18 08:29 12/19/18 08:29 12/19/18 08:29 General: Oriented x3, Cooperative, Well developed HEENT: Atraumatic, PERRLA Oral: Moist Mucosa Neck: Supple, No JVD Lungs: Clear to auscultation, Normal air movement Cardiovascular: Regular rate, Regular Rhythm Abdomen: Bowel Sounds Present, Soft, Non Tender, No Hepato-splenomegaly Extremities: No clubbing, No edema Skin: Ulcer/ Wound - Right great lateral toe Wound Measurements and Assessment WC - Nurse 1 - General Ulcer Measurement Start: 12/12/18 12:19 Freq: Status: Active Protocol: Activity Type Activity Date Activity User E-Sign Co-Sign Detail Recorded Client Recorded Date Recorded By Document 12/19/18 08:29 [id number] 12/19/18 08:30 JF 12/19/18 08:29 Wound Center Nurse 1 [Ulcer Assessment] #3 right great toe -Combined with other wound No -Current Size (cm) - Length 1.5 -Current Size (cm) - Width 1.6 -Current Size (cm) - Depth 0.1 -Total Square Cm 2.40 -Photo Taken No -Epithelialization Small 1-33% -Tunneling No -Undermining/Tunneling No -Circular Undermining No -Exudate Amt Small -Exudate Type Serosanguineous -Wound Margin Flat & Intact -Granulation Amt Large (67-100%) -Granulation Quality [place] -Slough/Fibrin Yes -Necrosis Amt Small (1-33%) -Necrotic Tissue Type Adherent Slough -Structure Exposed N/A -Texture (Mila-wound Skin Appearance) Assessed Callus -Moisture (Mila-wound Skin Appearance Assessed ) Dry/Scaly -Color (Mila-wound Skin Appearance) Assessed -Temperature (Mila-wound Skin No Abnormality Appearance) (Pt Warm) -Tenderness on Palpation (Mila-wound No Skin Appearance) -Ulcer Cleansing Rinsed/ Irrigated with Saline -Foul Odor after Cleansing No -Anesthetic Used 4% Lidocaine Solution [Edema Assessment] -Lower Limb Edema Present NA WC - Nurse 2 - General Ulcer CM Notes Start: 12/12/18 12:19 Freq: Status: Active Protocol: Activity Type Activity Date Activity User E-Sign Co-Sign Detail Recorded Client Recorded Date Recorded By Document 12/19/18 08:50 MW [id number] 12/19/18 08:55 MW 12/19/18 08:50 Wound Center Nurse 2 [Procedure/Treatment] #3 right great toe -Time 08:51 -Correct Patient Yes -Correct Side, Site, Position Yes -Correct Procedure Yes -Procedure Performed Yes -Type of Procedure Debridement -Clinical Debridement Subcutaneous -Post Debridement Size (cm) - Length 1.5 -Post Debridement Size (cm) - Width 1.7 -Post Debridement Size (cm) - Depth 0.2 -Total Square Cm 2.55 -Wound/Ulcer Outcome Not Healed -Ulcer Cleansing Rinsed/ Irrigated with Saline -Foul Odor after Cleansing No -Bioengineered Tissue No -Bleeding Controlled with Pressure -Offloading No -Treatment Response Procedure Tolerated Well [See Physician Procedure note for Specifics] Pain Scale: 0-10 Numeric [Pain] -Is Patient Pain Free? Yes Musculoskeletal: No Tenderness to Palpation of Joints or Extremities Lymphatic: No Cervical, Supraclavicular, or Inguinal Adenopathy Neurological: Cranial nerves II-XII grossly intact, Neuro grossly intact Psych/Mental Status: Normal Affect, Appropriate Debridement Note Post-Debridement Measurements/Treatment WC - Nurse 2 - General Ulcer CM Notes Start: 12/12/18 12:19 Freq: Status: Active Protocol: Activity Type Activity Date Activity User E-Sign Co-Sign Detail Recorded Client Recorded Date Recorded By Document 12/12/18 13:34 MW [id number] 12/12/18 13:47 MW Document 12/19/18 08:50 MW [id number] 12/19/18 08:55 MW 12/12/18 12/19/18 13:34 08:50 Wound Center Nurse 2 #3 right great toe -Time 13:34 08:51 -Correct Patient Yes Yes -Correct Side, Site, Position Yes Yes -Correct Procedure Yes Yes -Procedure Performed Yes Yes -Type of Procedure Debridement Debridement -Clinical Debridement Subcutaneous Subcutaneous -Post Debridement Size (cm) - Length 2.0 1.5 -Post Debridement Size (cm) - Width 2.0 1.7 -Post Debridement Size (cm) - Depth 0.2 0.2 -Total Square Cm 4.00 2.55 -Wound/Ulcer Outcome Not Healed Not Healed -Ulcer Cleansing Rinsed/ Rinsed/ Irrigated with Irrigated with Saline Saline -Foul Odor after Cleansing No No -Bioengineered Tissue No No -Bleeding Controlled with Pressure Pressure -Offloading No No -Treatment Response Procedure Procedure Tolerated Well Tolerated Well Pain Scale: 0-10 Numeric Is Patient Pain Free? Yes Yes Wound debrided: Right great lateral toe Wound Grade/Stage: Decubitus ulcer stage II Type of Debridement: Excisional debridement Anesthesia Used: 5% Lidocaine Gel Depth: Down to and including healthy tissue, in the subcutaneous layer Percentage of wound debrided: 100 Instrument Used: 5mm curette Tissue Removed: Fibrin and callus Severity: Limited To Skin Breakdown Amount of bleeding with debridement: Mild Bleeding Controlled with: Compression and gauze Patient tolerated procedure well Assessment/Plan Active Problems (Last Reviewed 02/05/18 @ 07:28 by Argelia Cody) Blister (nonthermal), right great toe, initial encounter (Acute) Diabetic foot ulcer associated with type 2 diabetes mellitus (Acute) Pressure ulcer, stage II (Acute) Type 2 diabetes mellitus with stage 2 decubitus ulcer of toe (Acute) Chronic kidney disease (Acute) Renal failure (Chronic) Type II diabetes mellitus (Chronic) Assessment: Right great toe ulcer from diabetes stage II. Renal failure dialysis. Diabetes type 2 Plan: Wash foot with Hibiclens or antibacterial soap apply Promogran to the wound base cover with Adaptic gauze tape. Follow-up in 2 week
[2019-01-02 08:38] VITALS: BP 156/69; PULSE 79; RESP 18; TEMP 36.6; BMI 30.1
--- NOTE | 2019-01-02 10:02 | PN.PCM_ITS ---
(1) Chronic kidney disease Status: Acute Current Visit: Yes Qualifiers: Chronic kidney disease stage: on chronic dialysis Qualified Code(s): N18.6 - End stage renal disease; Z99.2 - Dependence on renal dialysis Code(s): N18.9 - Chronic kidney disease, unspecified (2) Renal failure Status: Chronic Current Visit: Yes Qualifiers: Code(s): N19 - Unspecified kidney failure (3) Type II diabetes mellitus Status: Chronic Current Visit: Yes Code(s): E11.9 - Type 2 diabetes mellitus without complications (4) Diabetic foot ulcer associated with type 2 diabetes mellitus Status: Acute Current Visit: Yes Code(s): E11.621 - Type 2 diabetes mellitus with foot ulcer; L97.509 - Non-pressure chronic ulcer of other part of unspecified foot with unspecified severity (5) Pressure ulcer, stage II Status: Acute Current Visit: Yes Code(s): L89.92 - Pressure ulcer of unspecified site, stage 2 (6) Type 2 diabetes mellitus with stage 2 decubitus ulcer of toe Status: Acute Current Visit: Yes Code(s): E11.621 - Type 2 diabetes mellitus with foot ulcer; L89.892 - Pressure ulcer of other site, stage 2 Type of Wound Date of Service: 01/02/19 Chief Complaint: Follow-up recurrent right great toe ulcer History of Wound: This is a 63-year-old white male diabetic with recurrent decubitus ulcer of the right great toe from blistering from his shoes then opens. 2 weeks ago this started was seen by his family doctor Dr. Bowie and was debrided started on antibiotics and given Bactroban to put on it. Patient was referred to us by his family doctor for the wound center Progress of Wound: Today the right great toe is smaller extremely flat just nee ds to get new skin on top debrided a lot of callus around the edge. Use nippers to debride the tight band around the wound itself also tolerated treatment well. Will use puraply #1 to the toe follow-up in 1 week - Physical Exam Vital Signs Temp Pulse Resp BP 97.8 F 79 18 156/69 H 01/02/19 08:38 01/02/19 08:38 01/02/19 08:38 01/02/19 08:38 General: Oriented x3, Cooperative, Well developed HEENT: Atraumatic, PERRLA Oral: Moist Mucosa Neck: Supple, No JVD Lungs: Clear to auscultation, Normal air movement Cardiovascular: Regular rate, Regular Rhythm Abdomen: Bowel Sounds Present, Soft, Non Tender, No Hepato-splenomegaly Extremities: No clubbing, No edema, - - Right great toe DFU stage II Wound Measurements and Assessment WC - Nurse 1 - General Ulcer Measurement Start: 12/12/18 12:19 Freq: Status: Active Protocol: Activity Type Activity Date Activity User E-Sign Co-Sign Detail Recorded Client Recorded Date Recorded By Document 01/02/19 08:38 RB [id number] 01/02/19 08:45 RB 01/02/19 08:38 Wound Center Nurse 1 [Ulcer Assessment] #3 right great toe -Combined with other wound No -Current Size (cm) - Length 1.2 -Current Size (cm) - Width 1.5 -Current Size (cm) - Depth 0.1 -Total Square Cm 1.80 -Tunneling No -Undermining/Tunneling No -Circular Undermining No -Exudate Amt Small -Exudate Type Serosanguineous -Wound Margin Distinct, Outline Attached -Granulation Amt Large (67-100%) -Granulation Quality Red -Slough/Fibrin Yes -Necrosis Amt Small (1-33%) -Necrotic Tissue Type Adherent Slough -Structure Exposed N/A -Texture (Mila-wound Skin Appearance) Callus -Moisture (Mila-wound Skin Appearance Assessed ) -Color (Mila-wound Skin Appearance) Assessed -Temperature (Mila-wound Skin No Abnormality Appearance) (Pt Warm) -Tenderness on Palpation (Mila-wound No Skin Appearance) -Ulcer Cleansing Rinsed/ Irrigated with Saline -Foul Odor after Cleansing No -Anesthetic Used 5% Lidocaine Gel WC - Nurse 2 - General Ulcer CM Notes Start: 12/12/18 12:19 Freq: Status: Active Protocol: Activity Type Activity Date Activity User E-Sign Co-Sign Detail Recorded Client Recorded Date Recorded By Document 01/02/19 08:57 MW [id number] 01/02/19 09:10 MW 01/02/19 08:57 Wound Center Nurse 2 [Procedure/Treatment] -Time 08:57 -Correct Patient Yes -Correct Side, Site, Position Yes -Correct Procedure Yes -Procedure Performed Yes -Type of Procedure Debridement -Clinical Debridement Subcutaneous -Post Debridement Size (cm) - Length 1.5 -Post Debridement Size (cm) - Width 1.7 -Post Debridement Size (cm) - Depth 0.1 -Total Square Cm 2.55 -Wound/Ulcer Outcome Not Healed -Ulcer Cleansing Rinsed/ Irrigated with Saline -Foul Odor after Cleansing No -Bioengineered Tissue Yes -Type of bioengineered Tissue [id number] -Expiration Date 02/16/21 -Product Lot Number [id number] -Percent Used 100 -Saline Lot Number [id number] -Bleeding Controlled with Pressure -Offloading No -Treatment Response Procedure Tolerated Well [See Physician Procedure note for Specifics] Pain Scale: 0-10 Numeric [Pain] -Is Patient Pain Free? Yes Musculoskeletal: No Tenderness to Palpation of Joints or Extremities Lymphatic: No Cervical, Supraclavicular, or Inguinal Adenopathy Neurological: Cranial nerves II-XII grossly intact, Neuro grossly intact Psych/Mental Status: Normal Affect, Appropriate Debridement Note Post-Debridement Measurements/Treatment WC - Nurse 2 - General Ulcer CM Notes Start: 12/12/18 12:19 Freq: Status: Active Protocol: Activity Type Activity Date Activity User E-Sign Co-Sign Detail Recorded Client Recorded Date Recorded By Document 12/12/18 13:34 MW [id number] 12/12/18 13:47 MW Document 12/19/18 08:50 MW [id number] 12/19/18 08:55 MW Document 01/02/19 08:57 MW [id number] 01/02/19 09:10 MW 12/12/18 12/19/18 01/02/19 13:34 08:50 08:57 Wound Center Nurse 2 #3 right great toe -Time 13:34 08:51 08:57 -Correct Patient Yes Yes Yes -Correct Side, Site, Position Yes Yes Yes -Correct Procedure Yes Yes Yes -Procedure Performed Yes Yes Yes -Type of Procedure Debridement Debridement Debridement -Clinical Debridement Subcutaneous Subcutaneous Subcutaneous -Post Debridement Size (cm) - Length 2.0 1.5 1.5 -Post Debridement Size (cm) - Width 2.0 1.7 1.7 -Post Debridement Size (cm) - Depth 0.2 0.2 0.1 -Total Square Cm 4.00 2.55 2.55 -Wound/Ulcer Outcome Not Healed Not Healed Not Healed -Ulcer Cleansing Rinsed/ Rinsed/ Rinsed/ Irrigated with Irrigated with Irrigated with Saline Saline Saline -Foul Odor after Cleansing No No No -Bioengineered Tissue No No Yes -Type of bioengineered Tissue [id number] -Expiration Date 02/16/21 -Product Lot Number [id number] -Percent Used 100 -Saline Lot Number [id number] -Bleeding Controlled with Pressure Pressure Pressure -Offloading No No No -Treatment Response Procedure Procedure Procedure Tolerated Well Tolerated Well Tolerated Well Pain Scale: 0-10 Numeric Is Patient Pain Free? Yes Yes Yes Wound debrided: Great toe Laterality: Right Wound Grade/Stage: Stage II Type of Debridement: Excisional debridement Anesthesia Used: 5% Lidocaine Gel Depth: Down to and including healthy tissue, in the subcutaneous layer Percentage of wound debrided: 100 Instrument Used: 7mm curette, - - nippers Tissue Removed: Devitalized tissue callus fibrin Amount of bleeding with debridement: Mild Bleeding Controlled with: Compression and gauze Patient tolerated procedure well Assessment/Plan Active Problems (Last Reviewed 02/05/18 @ 07:28 by Argelia Cody) Blister (nonthermal), right great toe, initial encounter (Acute) Diabetic foot ulcer associated with type 2 diabetes mellitus (Acute) Pressure ulcer, stage II (Acute) Type 2 diabetes mellitus with stage 2 decubitus ulcer of toe (Acute) Chronic kidney disease (Acute) Renal failure (Chronic) Type II diabetes mellitus (Chronic) Assessment: Right great toe ulcer from diabetes stage II. Renal failure dialysis. Diabetes type 2 Plan: Applied puraply #1 to right great toe keep it covered only change the outside dressing if necessary. Wear the postop shoe to keep it nonpressurized. Follow-up in 1 week
== END 2019-01-04 23:59 ==
LOC: WC 08:30
PROVIDERS: Family Provider Family Medicine; PCP Family Medicine; Visit Provider Nurse Practitioner
DX: E11.621 Type 2 diabetes mellitus with foot ulcer (principal); L89.892 Pressure ulcer of other site, stage 2; E11.22 Type 2 diabetes mellitus with diabetic chronic kidney disease; N18.9 Chronic kidney disease, unspecified; I12.9 Hypertensive chronic kidney disease with stage 1 through stage 4 chronic kidney disease, or unspecified chronic kidney disease; E78.00 Pure hypercholesterolemia, unspecified; Z79.899 Other long term (current) drug therapy; Z79.4 Long term (current) use of insulin; Z87.891 Personal history of nicotine dependence
CPT/HCPCS: 11042; 15275; 99213; Q4196; G0463

== ENCOUNTER 2019-01-30 08:00 | Outpatient (RCR) | payer OTHER, MEDICARE, SELFPAY ==
[2019-01-05 01:04] VITALS: BP 156/69; PULSE 79; RESP 18; TEMP 36.6
[2019-01-09 08:57] VITALS: BP 125/82; PULSE 74; RESP 18; TEMP 36.3; BMI 30.1
--- NOTE | 2019-01-09 09:45 | PN.PCM_ITS ---
(1) Diabetic foot ulcer associated with type 2 diabetes mellitus Status: Acute Current Visit: Yes Qualifiers: Diabetic foot ulcer location: toe Code(s): E11.621 - Type 2 diabetes mellitus with foot ulcer; L97.509 - Non- pressure chronic ulcer of other part of unspecified foot with unspecified severity (2) Type 2 diabetes mellitus with stage 2 decubitus ulcer of toe Status: Acute Current Visit: Yes Code(s): E11.621 - Type 2 diabetes mellitus with foot ulcer; L89.892 - Pressure ulcer of other site, stage 2 (3) Blister (nonthermal), right great toe, subsequent encounter Status: Acute Current Visit: Yes Code(s): S90.421D - Blister (nonthermal), right great toe, subsequent encounter Type of Wound Date of Service: 01/09/19 Chief Complaint: Follow-up recurrent right great toe ulcer History of Wound: This is a 63-year-old white male diabetic with recurrent decubitus ulcer of the right great toe from blistering from his shoes then opens. 2 weeks ago this started was seen by his family doctor Dr. Bowie and was debrided started on antibiotics and given Bactroban to put on it. Patient was referred to us by his family doctor for the wound center Progress of Wound: Today the right great toe is smaller extremely flat just needs to get new skin on top debrided a lot of callus around the edge. Use nippers to debride the tight band around the wound itself also tolerated treatment well. Will use puraply #2 to the toe follow-up in 1 week - Physical Exam Vital Signs Temp Pulse Resp BP 97.3 F L 74 18 125/82 H 01/09/19 08:57 01/09/19 08:57 01/09/19 08:57 01/09/19 08:57 General: Oriented x3, Cooperative, Well developed HEENT: Atraumatic, PERRLA Oral: Moist Mucosa Neck: Supple, No JVD Lungs: Clear to auscultation, Normal air movement Cardiovascular: Regular rate, Regular Rhythm Abdomen: Bowel Sounds Present, Soft, Non Tender, No Hepato-splenomegaly Extremities: No clubbing, No edema, - - Right great toe diabetic foot ulcer Wound Measurements and Assessment WC - Nurse 1 - General Ulcer Measurement Start: 01/09/19 08:57 Freq: Status: Active Protocol: Activity Type Activity Date Activity User E-Sign Co-Sign Detail Recorded Client Recorded Date Recorded By Document 01/09/19 08:57 RB [id number] 01/09/19 09:00 RB 01/09/19 08:57 Wound Center Nurse 1 [Ulcer Assessment] #3 right great toe -Combined with other wound No -Current Size (cm) - Length 1.1 -Current Size (cm) - Width 1.7 -Current Size (cm) - Depth 0.1 -Total Square Cm 1.87 -Tunneling No -Undermining/Tunneling No -Circular Undermining No -Exudate Amt Medium -Exudate Type Serosanguineous -Wound Margin Thickened -Granulation Amt Medium (34-66%) -Granulation Quality [place] -Slough/Fibrin Yes -Necrosis Amt Small (1-33%) -Necrotic Tissue Type Adherent Slough -Structure Exposed N/A -Texture (Mila-wound Skin Appearance) Assessed,Callus -Moisture (Mila-wound Skin Appearance Assessed ) -Color (Mila-wound Skin Appearance) Assessed -Temperature (Mila-wound Skin No Abnormality Appearance) (Pt Warm) -Tenderness on Palpation (Mila-wound No Skin Appearance) -Ulcer Cleansing Wound Cleanser -Anesthetic Used 5% Lidocaine Gel WC - Nurse 2 - General Ulcer CM Notes Start: 01/09/19 08:57 Freq: Status: Active Protocol: Activity Type Activity Date Activity User E-Sign Co-Sign Detail Recorded Client Recorded Date Recorded By Document 01/09/19 09:11 MW [id number] 01/09/19 09:21 MW 01/09/19 09:11 Wound Center Nurse 2 [Procedure/Treatment] -Time 09:12 -Correct Patient Yes -Correct Side, Site, Position Yes -Correct Procedure Yes -Procedure Performed Yes -Type of Procedure Debridement -Clinical Debridement Subcutaneous -Post Debridement Size (cm) - Length 1.1 -Post Debridement Size (cm) - Width 1.5 -Post Debridement Size (cm) - Depth 0.1 -Total Square Cm 1.65 -Wound/Ulcer Outcome Not Healed -Ulcer Cleansing Rinsed/ Irrigated with Saline -Foul Odor after Cleansing No -Bioengineered Tissue Yes -Type of bioengineered Tissue [id number] -Expiration Date 04/24/21 -Product Lot Number [id number] -Percent Used 100 -Saline Lot Number [id number] -Bleeding Controlled with Pressure -Offloading No -Treatment Response Procedure Tolerated Well [See Physician Procedure note for Specifics] Pain Scale: 0-10 Numeric [Pain] -Is Patient Pain Free? Yes Musculoskeletal: No Tenderness to Palpation of Joints or Extremities Lymphatic: No Cervical, Supraclavicular, or Inguinal Adenopathy Neurological: Cranial nerves II-XII grossly intact, Neuro grossly intact Psych/Mental Status: Normal Affect, Appropriate Debridement Note Post-Debridement Measurements/Treatment WC - Nurse 2 - General Ulcer CM Notes Start: 01/09/19 08:57 Freq: Status: Active Protocol: Activity Type Activity Date Activity User E-Sign Co-Sign Detail Recorded Client Recorded Date Recorded By Document 01/09/19 09:11 MW [id number] 01/09/19 09:21 MW 01/09/19 09:11 Wound Center Nurse 2 #3 right great toe -Time 09:12 -Correct Patient Yes -Correct Side, Site, Position Yes -Correct Procedure Yes -Procedure Performed Yes -Type of Procedure Debridement -Clinical Debridement Subcutaneous -Post Debridement Size (cm) - Length 1.1 -Post Debridement Size (cm) - Width 1.5 -Post Debridement Size (cm) - Depth 0.1 -Total Square Cm 1.65 -Wound/Ulcer Outcome Not Healed -Ulcer Cleansing Rinsed/ Irrigated with Saline -Foul Odor after Cleansing No -Bioengineered Tissue Yes -Type of bioengineered Tissue [id number] -Expiration Date 04/24/21 -Product Lot Number [id number] -Percent Used 100 -Saline Lot Number [id number] -Bleeding Controlled with Pressure -Offloading No -Treatment Response Procedure Tolerated Well Pain Scale: 0-10 Numeric Is Patient Pain Free? Yes Wound debrided: Right great toe Type of Debridement: Excisional debridement Anesthesia Used: 5% Lidocaine Gel Depth: Down to and including healthy tissue, in the subcutaneous layer Percentage of wound debrided: 100 Instrument Used: 7mm curette, - - Nippers Tissue Removed: Callus and fibrin Severity: Limited To Skin Breakdown Amount of bleeding with debridement: Mild Bleeding Controlled with: Compression and gauze Patient tolerated procedure well Assessment/Plan Active Problems (Last Reviewed 02/05/18 @ 07:28 by Argelia Cody) Diabetic foot ulcer associated with type 2 diabetes mellitus (Acute) Type 2 diabetes mellitus with stage 2 decubitus ulcer of toe (Acute) Blister (nonthermal), right great toe, subsequent encounter (Acute) Assessment: Right great toe ulcer from diabetes stage II. Renal failure dialysis. Diabetes type 2 Plan: Applied puraply #2 to right great toe keep it covered only change the outside dressing if necessary. Wear the postop shoe to keep it nonpressurized. Follow-up in 1 week
[2019-01-16 08:22] VITALS: BP 138/74; PULSE 80; RESP 18; TEMP 36.6; BMI 30.1
--- NOTE | 2019-01-16 09:49 | PCM.WC.PN ---
(1) Diabetic foot ulcer associated with type 2 diabetes mellitus Status: Acute Current Visit: Yes Qualifiers: Diabetic foot ulcer location: toe Code(s): E11.621 - Type 2 diabetes mellitus with foot ulcer; L97.509 - Non-pressure chronic ulcer of other part of unspecified foot with unspecified severity (2) Type 2 diabetes mellitus with stage 2 decubitus ulcer of toe Status: Acute Current Visit: Yes Code(s): E11.621 - Type 2 diabetes mellitus with foot ulcer; L89.892 - Pressure ulcer of other site, stage 2 (3) Blister (nonthermal), right great toe, subsequent encounter Status: Acute Current Visit: Yes Code(s): S90.421D - Blister (nonthermal), right great toe, subsequent encounter Type of Wound Date of Service: 01/16/19 Chief Complaint: Follow-up recurrent right great toe ulcer History of Wound: This is a 63-year-old white male diabetic with recurrent decubitus ulcer of the right great toe from blistering from his shoes then opens. 2 weeks ago this started was seen by his family doctor Dr. Bowie and was debrided started on antibiotics and given Bactroban to put on it. Patient was referred to us by his family doctor for the wound center Progress of Wound: Today the right great toe is smaller extremely flat starting to develop new skin on the lateral side of the wound still gets a band around the perimeter that has to be nipped and debrided. Will use new shield today to the toe follow-up in 1 week another provider - Physical Exam Vital Signs Temp Pulse Resp BP 97.8 F 80 18 138/74 H 01/16/19 08:22 01/16/19 08:22 01/16/19 08:22 01/16/19 08:22 General: Oriented x3, Cooperative, Well developed HEENT: Atraumatic, PERRLA Oral: Moist Mucosa Neck: Supple, No JVD Lungs: Clear to auscultation, Normal air movement Cardiovascular: Regular rate, Regular Rhythm Abdomen: Bowel Sounds Present, Soft, Non Tender, No Hepato-splenomegaly Extremities: No clubbing, No edema Wound Measurements and Assessment WC - Nurse 1 - General Ulcer Measurement Start: 01/09/19 08:57 Freq: Status: Active Protocol: Activity Type Activity Date Activity User E-Sign Co-Sign Detail Recorded Client Recorded Date Recorded By Document 01/16/19 08:22 [id number] 01/16/19 08:31 01/16/19 08:22 Wound Center Nurse 1 [Ulcer Assessment] #3 right great toe -Combined with other wound No -Current Size (cm) - Length 1 -Current Size (cm) - Width 1.3 -Current Size (cm) - Depth 0.1 -Total Square Cm 1.3 -Tunneling No -Undermining/Tunneling No -Circular Undermining No -Exudate Amt Small -Exudate Type Serosanguineous -Wound Margin Distinct, Outline Attached -Granulation Amt Large (67-100%) -Granulation Quality [place],Red -Slough/Fibrin Yes -Necrosis Amt Small (1-33%) -Necrotic Tissue Type Adherent Slough -Structure Exposed N/A -Texture (Mila-wound Skin Appearance) Assessed,Callus -Moisture (Mila-wound Skin Appearance Assessed ) -Color (Mila-wound Skin Appearance) Assessed -Temperature (Mila-wound Skin No Abnormality Appearance) (Pt Warm) -Tenderness on Palpation (Mila-wound No Skin Appearance) -Ulcer Cleansing Wound Cleanser -Foul Odor after Cleansing No -Anesthetic Used 5% Lidocaine Gel WC - Nurse 2 - General Ulcer CM Notes Start: 01/09/19 08:57 Freq: Status: Active Protocol: Activity Type Activity Date Activity User E-Sign Co-Sign Detail Recorded Client Recorded Date Recorded By Document 01/16/19 08:51 MW [id number] 01/16/19 08:59 MW 01/16/19 08:51 Wound Center Nurse 2 [Procedure/Treatment] -Time 08:52 -Correct Patient Yes -Correct Side, Site, Position Yes -Correct Procedure Yes -Procedure Performed Yes -Type of Procedure Debridement -Clinical Debridement Subcutaneous -Post Debridement Size (cm) - Length 1.1 -Post Debridement Size (cm) - Width 1.5 -Post Debridement Size (cm) - Depth 0.1 -Total Square Cm 1.65 -Wound/Ulcer Outcome Not Healed -Ulcer Cleansing Rinsed/ Irrigated with Saline -Foul Odor after Cleansing No -Bioengineered Tissue Yes -Type of bioengineered Tissue [id number] -Expiration Date 11/14/23 -Product Lot Number [id number] -Percent Used 100 -Saline Lot Number [id number] -Bleeding Controlled with Pressure -Other DONOR #[id number] -Offloading No -Treatment Response Procedure Tolerated Well [See Physician Procedure note for Specifics] Pain Scale: 0-10 Numeric [Pain] -Is Patient Pain Free? Yes Musculoskeletal: No Tenderness to Palpation of Joints or Extremities Lymphatic: No Cervical, Supraclavicular, or Inguinal Adenopathy Neurological: Cranial nerves II-XII grossly intact, Neuro grossly intact Psych/Mental Status: Normal Affect, Appropriate, Alert and oriented to time, place, person, mood and affect Debridement Note Post-Debridement Measurements/Treatment WC - Nurse 2 - General Ulcer CM Notes Start: 01/09/19 08:57 Freq: Status: Active Protocol: Activity Type Activity Date Activity User E-Sign Co-Sign Detail Recorded Client Recorded Date Recorded By Document 01/09/19 09:11 MW [id number] 01/09/19 09:21 MW Document 01/16/19 08:51 MW [id number] 01/16/19 08:59 MW 01/09/19 01/16/19 09:11 08:51 Wound Center Nurse 2 #3 right great toe -Time 09:12 08:52 -Correct Patient Yes Yes -Correct Side, Site, Position Yes Yes -Correct Procedure Yes Yes -Procedure Performed Yes Yes -Type of Procedure Debridement Debridement -Clinical Debridement Subcutaneous Subcutaneous -Post Debridement Size (cm) - Length 1.1 1.1 -Post Debridement Size (cm) - Width 1.5 1.5 -Post Debridement Size (cm) - Depth 0.1 0.1 -Total Square Cm 1.65 1.65 -Wound/Ulcer Outcome Not Healed Not Healed -Ulcer Cleansing Rinsed/ Rinsed/ Irrigated with Irrigated with Saline Saline -Foul Odor after Cleansing No No -Bioengineered Tissue Yes Yes -Type of bioengineered Tissue [id number] NU-SHIELD -Expiration Date 04/24/21 11/14/23 -Product Lot Number [id number] -Percent Used 100 100 -Saline Lot Number [id number] -Bleeding Controlled with Pressure Pressure -Other DONOR #[id number] -Offloading No No -Treatment Response Procedure Procedure Tolerated Well Tolerated Well Pain Scale: 0-10 Numeric Is Patient Pain Free? Yes Yes Wound debrided: Right great toe Type of Debridement: Excisional debridement Anesthesia Used: 5% Lidocaine Gel Depth: Down to and including healthy tissue Instrument Used: 5mm curette, 7mm curette, - - Nippers Tissue Removed: Fibrin and devitalized tissue Severity: Limited To Skin Breakdown Amount of bleeding with debridement: Mild Bleeding Controlled with: Compression and gauze Patient tolerated procedure well Assessment/Plan Active Problems (Last Reviewed 02/05/18 @ 07:28 by Argelia Cody) Diabetic foot ulcer associated with type 2 diabetes mellitus (Acute) Type 2 diabetes mellitus with stage 2 decubitus ulcer of toe (Acute) Blister (nonthermal), right great toe, subsequent encounter (Acute) Assessment: Right great toe ulcer from diabetes stage II. Renal failure dialysis. Diabetes type 2 Plan: Applied #3 nu- shield to right great toe keep it covered only change the outside dressing if necessary. To new wearing diabetic tennis shoes. Wear the postop shoe to keep it nonpressurized. Follow-up in 1 week
[2019-01-21 08:20] VITALS: BP 136/62; PULSE 98; RESP 18; TEMP 36.6; BMI 30.1
--- NOTE | 2019-01-21 08:58 | PN.PCM_ITS ---
(1) Ulcer of right second toe with fat layer exposed Status: Chronic Code(s): L97.512 - Non-pressure chronic ulcer of other part of right foot with fat layer exposed (2) Type 2 diabetes mellitus with diabetic polyneuropathy Status: Chronic Code(s): E11.42 - Type 2 diabetes mellitus with diabetic polyneuropathy (3) Hallux limitus of right foot Status: Chronic Code(s): M20.5X1 - Other deformities of toe(s) (acquired), right foot (4) Malnutrition Status: Chronic Code(s): E46 - Unspecified protein-calorie malnutrition Type of Wound Date of Service: 01/21/19 Chief Complaint: Follow-up recurrent right great toe ulcer History of Wound: This is a 63-year-old white male diabetic with recurrent decubitus ulcer of the right great toe from blistering from his shoes then opens.He completed antibiotics. He denies fever, chill, nausea, vomiting. He wears a diabetic shoe. He has a surgical shoe at home and wears this occasionally. He relates he walks around barefoot in a sock most of the time at home. Progress of Wound: Stable - Physical Exam Vital Signs Temp Pulse Resp BP 98 F 98 18 136/62 H 01/21/19 08:20 01/21/19 08:20 01/21/19 08:20 01/21/19 08:20 General: Alert, Oriented x3, Cooperative, No apparent distress Extremities: No cyanosis, No edema, Capillary Refill Less than 3 Seconds, No Calf Tenderness, Diminished Peripheral Pulses Skin: Ulcer/ Wound - No purulence, erythema hamstring, odor, infection. Skin discontinuity is noted with peripherally atrophic and hairless skin. No deep tissue exposure noted Wound Measurements and Assessment WC - Nurse 1 - General Ulcer Measurement Start: 01/09/19 08:57 Freq: Status: Active Protocol: Activity Type Activity Date Activity User E-Sign Co-Sign Detail Recorded Client Recorded Date Recorded By Document 01/21/19 08:20 [id number] 01/21/19 08:23 01/21/19 08:20 Wound Center Nurse 1 [Ulcer Assessment] #3 right great toe -Combined with other wound No -Photo Taken No [Edema Assessment] -Lower Limb Edema Present No WC - Nurse 2 - General Ulcer CM Notes Start: 01/09/19 08:57 Freq: Status: Active Protocol: Activity Type Activity Date Activity User E-Sign Co-Sign Detail Recorded Client Recorded Date Recorded By Document 01/21/19 08:47 AN [id number] 01/21/19 08:57 AN 01/21/19 08:47 Wound Center Nurse 2 [Procedure/Treatment] #3 right great toe -Time 08:51 -Correct Patient Yes -Correct Side, Site, Position Yes -Correct Procedure Yes -Procedure Performed Yes -Type of Procedure Debridement -Clinical Debridement Subcutaneous -Post Debridement Size (cm) - Length 1.1 -Post Debridement Size (cm) - Width 1.4 -Post Debridement Size (cm) - Depth 0.1 -Total Square Cm 1.54 -Wound/Ulcer Outcome Not Healed -Ulcer Cleansing Rinsed/ Irrigated with Saline -Foul Odor after Cleansing No -Bioengineered Tissue No -Type of bioengineered Tissue NU-SHIELD -Expiration Date 12/04/23 -Product Lot Number [id number] -Percent Used 100 -Offloading Yes -Type of Offloading Surgical Shoe -Treatment Response Procedure Tolerated Well [See Physician Procedure note for Specifics] Pain Scale: 0-10 Numeric [Pain] -Is Patient Pain Free? Yes Musculoskeletal: No Tenderness to Palpation of Joints or Extremities, Muscle Wasting, - - Decrease noted first metatarsophalangeal joint range of motion consistent with hallux limitus Neurological: - - Lack of epicritic sensation light touch consistent with neuropathy Psych/Mental Status: Normal Affect, Appropriate Debridement Note Post-Debridement Measurements/Treatment WC - Nurse 2 - General Ulcer CM Notes Start: 01/09/19 08:57 Freq: Status: Active Protocol: Activity Type Activity Date Activity User E-Sign Co-Sign Detail Recorded Client Recorded Date Recorded By Document 01/09/19 09:11 MW [id number] 01/09/19 09:21 MW Document 01/16/19 08:51 MW [id number] 01/16/19 08:59 MW Document 01/21/19 08:47 AN [id number] 01/21/19 08:57 AN 01/09/19 01/16/19 01/21/19 09:11 08:51 08:47 Wound Center Nurse 2 #3 right great toe -Time 09:12 08:52 08:51 -Correct Patient Yes Yes Yes -Correct Side, Site, Position Yes Yes Yes -Correct Procedure Yes Yes Yes -Procedure Performed Yes Yes Yes -Type of Procedure Debridement Debridement Debridement -Clinical Debridement Subcutaneous Subcutaneous Subcutaneous -Post Debridement Size (cm) - Length 1.1 1.1 1.1 -Post Debridement Size (cm) - Width 1.5 1.5 1.4 -Post Debridement Size (cm) - Depth 0.1 0.1 0.1 -Total Square Cm 1.65 1.65 1.54 -Wound/Ulcer Outcome Not Healed Not Healed Not Healed -Ulcer Cleansing Rinsed/ Rinsed/ Rinsed/ Irrigated with Irrigated with Irrigated with Saline Saline Saline -Foul Odor after Cleansing No No No -Bioengineered Tissue Yes Yes No -Type of bioengineered Tissue [id number] NU-SHIELD NU-SHIELD -Expiration Date 04/24/21 11/14/23 12/04/23 -Product Lot Number [id number] -Percent Used 100 100 100 -Saline Lot Number [id number] -Bleeding Controlled with Pressure Pressure -Other DONOR #[id number] -Offloading No No Yes -Type of Offloading Surgical Shoe -Treatment Response Procedure Procedure Procedure Tolerated Well Tolerated Well Tolerated Well Pain Scale: 0-10 Numeric Is Patient Pain Free? Yes Yes Yes Wound debrided: Plantar medial hallux Laterality: Right Wound Grade/Stage: Grade 1 Type of Debridement: Excisional debridement Anesthesia Used: 5% Lidocaine Gel Depth: in the subcutaneous layer Percentage of wound debrided: 100 Instrument Used: #15 blade Tissue Removed: Fibrous, devitalized subcutaneous, biofilm, slough Severity: Fat Layer Exposed Amount of bleeding with debridement: Mild Bleeding Controlled with: Pressure Patient tolerated procedure well Assessment/Plan Active Problems (Last Reviewed 02/05/18 @ 07:28 by Argelia Cody) Diabetic foot ulcer associated with type 2 diabetes mellitus (Acute) Type 2 diabetes mellitus with stage 2 decubitus ulcer of toe (Acute) Blister (nonthermal), right great toe, subsequent encounter (Acute) Type 2 diabetes mellitus with diabetic polyneuropathy (Chronic) Ulcer of right second toe with fat layer exposed (Chronic) Hallux limitus of right foot (Chronic) Malnutrition (Chronic) Assessment: Right great toe ulcer with fat layer exposed today, rodgers grade 1. Renal failure dialysis. Diabetes type 2 diabetes with neuropathy. Hallux limitus right. Malnutrition. Healing delayed Plan: I performed a chart review and discuss this case. I applied #4 nu- shield to right great toe keep it covered only change the outside dressing if nece ssary. Verbal consent was obtained and this was applied according to standard protocol. He tolerated this well. This was secured in place of the wound veil and Steri-Strips. This is medically necessary for limb salvage. The ulcer was debrided with a 15 blade scalpel as noted in the nursing panel prior to application of this advanced wound healing chronic. Wear the postop shoe to keep it nonpressurized. Provided an order to schedule density Plastizote liners and to the surgical shoe with offloading pocket to reduce additional pressure from the site. To avoid walking on it at home. To optimize healing by taking a nutritional supplement and controlling blood sugars. A prescription for tubing was provided. He was reassured no signs of infection noted today; to monitor. Follow-up in 1 week
[2019-01-30 08:17] VITALS: BP 145/62; PULSE 78; RESP 18; TEMP 36.8; BMI 30.1
--- NOTE | 2019-01-30 09:19 | PN.PCM_ITS ---
(1) Diabetic foot ulcer associated with type 2 diabetes mellitus Status: Acute Current Visit: Yes Qualifiers: Diabetic foot ulcer location: toe Code(s): E11.621 - Type 2 diabetes mellitus with foot ulcer; L97.509 - Non- pressure chronic ulcer of other part of unspecified foot with unspecified severity (2) Type 2 diabetes mellitus with stage 2 decubitus ulcer of toe Status: Acute Current Visit: Yes Code(s): E11.621 - Type 2 diabetes mellitus with foot ulcer; L89.892 - Pressure ulcer of other site, stage 2 (3) Blister (nonthermal), right great toe, subsequent encounter Status: Acute Current Visit: Yes Code(s): S90.421D - Blister (nonthermal), right great toe, subsequent encounter Type of Wound Date of Service: 01/30/19 Chief Complaint: Follow-up recurrent right great toe ulcer History of Wound: This is a 63-year-old white male diabetic with recurrent decubitus ulcer of the right great toe from blistering from his shoes then opens.He completed antibiotics. He denies fever, chill, nausea, vomiting. He wears a diabetic shoe. He has a surgical shoe at home and wears this occasionally. He relates he walks around barefoot in a sock most of the time at home. Progress of Wound: The wound on the right great toe from a blister to opening is still slightly smaller than it was he is currently on new shield #5 applied today. No signs of infection or redness or swelling. Patient does develop a band of callus that needs to be nipped every week. The wound is stable just needs to close - Physical Exam Vital Signs Temp Pulse Resp BP 98.2 F 78 18 145/62 H 01/30/19 08:17 01/30/19 08:17 01/30/19 08:17 01/30/19 08:17 General: Oriented x3, Cooperative, Well developed HEENT: Atraumatic, PERRLA Oral: Moist Mucosa Neck: Supple, No JVD Lungs: Clear to auscultation, Normal air movement Cardiovascular: Regular rate, Regular Rhythm Abdomen: Bowel Sounds Present, Soft, Non Tender, No Hepato-splenomegaly Extremities: No clubbing, No edema, - - Right great toe diabetic ulcer Skin: Ulcer/ Wound Wound Measurements and Assessment WC - Nurse 1 - General Ulcer Measurement Start: 01/09/19 08:57 Freq: Status: Active Protocol: Activity Type Activity Date Activity User E-Sign Co-Sign Detail Recorded Client Recorded Date Recorded By Document 01/30/19 08:17 DL [id number] 01/30/19 08:23 DL 01/30/19 08:17 Wound Center Nurse 1 [Ulcer Assessment] #3 right great toe -Current Size (cm) - Length 0.6 -Current Size (cm) - Width 0.8 -Current Size (cm) - Depth 0.1 -Total Square Cm 0.48 -Photo Taken No -Exudate Amt Small -Exudate Type Serosanguineous -Wound Margin Distinct, Outline Attached -Granulation Amt Large (67-100%) -Granulation Quality [place] -Necrosis Amt Small (1-33%) -Necrotic Tissue Type Adherent Slough -Structure Exposed N/A -Texture (Mila-wound Skin Appearance) Scarring -Moisture (Mila-wound Skin Appearance Maceration ) -Color (Mila-wound Skin Appearance) No Abnormality -Temperature (Mila-wound Skin No Abnormality Appearance) (Pt Warm) -Tenderness on Palpation (Mila-wound No Skin Appearance) -Ulcer Cleansing Wound Cleanser -Foul Odor after Cleansing No -Anesthetic Used 5% Lidocaine Gel WC - Nurse 2 - General Ulcer CM Notes Start: 01/09/19 08:57 Freq: Status: Active Protocol: Activity Type Activity Date Activity User E-Sign Co-Sign Detail Recorded Client Recorded Date Recorded By Document 01/30/19 08:47 MW [id number] 01/30/19 08:55 MW 01/30/19 08:47 Wound Center Nurse 2 [Procedure/Treatment] -Time 08:47 -Correct Patient Yes -Correct Side, Site, Position Yes -Correct Procedure Yes -Procedure Performed Yes -Type of Procedure Debridement -Clinical Debridement Subcutaneous -Post Debridement Size (cm) - Length 0.8 -Post Debridement Size (cm) - Width 1.5 -Post Debridement Size (cm) - Depth 0.1 -Total Square Cm 1.20 -Wound/Ulcer Outcome Not Healed -Ulcer Cleansing Rinsed/ Irrigated with Saline -Bioengineered Tissue No -Type of bioengineered Tissue NU-SHIELD -Expiration Date 11/20/23 -Product Lot Number [id number] -Percent Used 100 -Saline Lot Number [id number] -Bleeding Controlled with Pressure -Offloading No -Treatment Response Procedure Tolerated Well [See Physician Procedure note for Specifics] Pain Scale: 0-10 Numeric [Pain] -Is Patient Pain Free? Yes Musculoskeletal: No Tenderness to Palpation of Joints or Extremities Lymphatic: No Cervical, Supraclavicular, or Inguinal Adenopathy Neurological: Cranial nerves II-XII grossly intact, Neuro grossly intact Psych/Mental Status: Normal Affect, Appropriate, Alert and oriented to time, place, person, mood and affect Debridement Note Post-Debridement Measurements/Treatment WC - Nurse 2 - General Ulcer CM Notes Start: 01/09/19 08:57 Freq: Status: Active Protocol: Activity Type Activity Date Activity User E-Sign Co-Sign Detail Recorded Client Recorded Date Recorded By Document 01/09/19 09:11 MW [id number] 01/09/19 09:21 MW Document 01/16/19 08:51 MW [id number] 01/16/19 08:59 MW Document 01/21/19 08:47 AN [id number] 01/21/19 08:57 AN Document 01/30/19 08:47 MW [id number] 01/30/19 08:55 MW 01/09/19 01/16/19 01/21/19 09:11 08:51 08:47 Wound Center Nurse 2 #3 right great toe -Time 09:12 08:52 08:51 -Correct Patient Yes Yes Yes -Correct Side, Site, Position Yes Yes Yes -Correct Procedure Yes Yes Yes -Procedure Performed Yes Yes Yes -Type of Procedure Debridement Debridement Debridement -Clinical Debridement Subcutaneous Subcutaneous Subcutaneous -Post Debridement Size (cm) - Length 1.1 1.1 1.1 -Post Debridement Size (cm) - Width 1.5 1.5 1.4 -Post Debridement Size (cm) - Depth 0.1 0.1 0.1 -Total Square Cm 1.65 1.65 1.54 -Wound/Ulcer Outcome Not Healed Not Healed Not Healed -Ulcer Cleansing Rinsed/ Rinsed/ Rinsed/ Irrigated with Irrigated with Irrigated with Saline Saline Saline -Foul Odor after Cleansing No No No -Bioengineered Tissue Yes Yes No -Type of bioengineered Tissue [id number] NU-SHIELD NU-SHIELD -Expiration Date 04/24/21 11/14/23 12/04/23 -Product Lot Number [id number] -Percent Used 100 100 100 -Saline Lot Number [id number] -Bleeding Controlled with Pressure Pressure -Other DONOR #[id number] -Offloading No No Yes -Type of Offloading Surgical Shoe -Treatment Response Procedure Procedure Procedure Tolerated Well Tolerated Well Tolerated Well Pain Scale: 0-10 Numeric Is Patient Pain Free? Yes Yes Yes 01/30/19 08:47 Wound Center Nurse 2 #3 right great toe -Time 08:47 -Correct Patient Yes -Correct Side, Site, Position Yes -Correct Procedure Yes -Procedure Performed Yes -Type of Procedure Debridement -Clinical Debridement Subcutaneous -Post Debridement Size (cm) - Length 0.8 -Post Debridement Size (cm) - Width 1.5 -Post Debridement Size (cm) - Depth 0.1 -Total Square Cm 1.20 -Wound/Ulcer Outcome Not Healed -Ulcer Cleansing Rinsed/ Irrigated with Saline -Foul Odor after Cleansing -Bioengineered Tissue No -Type of bioengineered Tissue NU-SHIELD -Expiration Date 11/20/23 -Product Lot Number [id number] -Percent Used 100 -Saline Lot Number [id number] -Bleeding Controlled with Pressure -Other -Offloading No -Type of Offloading -Treatment Response Procedure Tolerated Well Pain Scale: 0-10 Numeric Is Patient Pain Free? Yes Wound debrided: Right great toe ulcer Type of Debridement: Excisional debridement Anesthesia Used: 5% Lidocaine Gel Depth: in the subcutaneous layer Percentage of wound debrided: 100 Instrument Used: 7mm curette, - - Nippers Tissue Removed: Fibrin Severity: Limited To Skin Breakdown Amount of bleeding with debridement: Mild Bleeding Controlled with: Compression and gauze Assessment/Plan Active Problems (Last Reviewed 02/05/18 @ 07:28 by Argelia Cody) Diabetic foot ulcer associated with type 2 diabetes mellitus (Acute) Type 2 diabetes mellitus with stage 2 decubitus ulcer of toe (Acute) Blister (nonthermal), right great toe, subsequent encounter (Acute) Type 2 diabetes mellitus with diabetic polyneuropathy (Chronic) Ulcer of right second toe with fat layer exposed (Chronic) Hallux limitus of right foot (Chronic) Malnutrition (Chronic) Assessment: Right great toe ulcer with fat layer exposed today, rodgers grade 1. Renal failure dialysis. Diabetes type 2 diabetes with neuropathy. Hallux limitus right. Malnutrition. Healing delayed Plan: I performed a chart review and discuss this case. I applied #5 nu- shield to right great toe keep it covered only change the outside dressing if necessary. Verbal consent was obtained and this was applied according to standard protocol. He tolerated this well. This was secured in place of the wound veil and Steri-Strips. This is medically necessary for limb salvage. The ulcer was debrided with a nippers and #7 curette as noted in the nursing panel prior to application of this advanced wound healing chronic. Wear the postop shoe to keep it nonpressurized. Provided an order to schedule density Plastizote liners and to the surgical shoe with offloading pocket to reduce additional pressure from the site. To avoid walking on it at home. To optimize healing by taking a nutritional supplement and controlling blood sugars. A prescription for tubing was provided. He was reassured no signs of infection noted today; to monitor. Follow-up in 1 week
[2019-02-06 08:12] VITALS: BP 140/64; PULSE 76; RESP 16; TEMP 35.5; BMI 30.1
== END 2019-02-04 23:59 ==
LOC: WC 08:00
PROVIDERS: Family Provider Family Medicine; PCP Family Medicine; Visit Provider Nurse Practitioner
DX: E11.621 Type 2 diabetes mellitus with foot ulcer (principal); L89.892 Pressure ulcer of other site, stage 2; S90.421D Blister (nonthermal), right great toe, subsequent encounter; X58.XXXD Exposure to other specified factors, subsequent encounter; M20.5X1 Other deformities of toe(s) (acquired), right foot
CPT/HCPCS: 15275; Q4160; Q4196

== ENCOUNTER 2019-02-13 08:00 | Outpatient (RCR) | payer OTHER, MEDICARE, SELFPAY ==
[2019-02-05 00:59] VITALS: BP 145/62; PULSE 78; RESP 18; TEMP 36.8
--- NOTE | 2019-02-06 09:04 | PN.PCM_ITS ---
(1) Blister (nonthermal), right great toe, subsequent encounter Status: Acute Current Visit: Yes Code(s): S90.421D - Blister (nonthermal), right great toe, subsequent encounter (2) Chronic anemia Status: Chronic Current Visit: Yes Code(s): D64.9 - Anemia, unspecified (3) Chronic kidney disease Status: Chronic Current Visit: Yes Qualifiers: Code(s): N18.9 - Chronic kidney disease, unspecified (4) Diabetic foot ulcer associated with type 2 diabetes mellitus Status: Acute Current Visit: Yes Qualifiers: Diabetic foot ulcer location: toe Code(s): E11.621 - Type 2 diabetes mellitus with foot ulcer; L97.509 - Non- pressure chronic ulcer of other part of unspecified foot with unspecified severity (5) Pressure ulcer, stage II Status: Acute Current Visit: Yes Qualifiers: Pressure injury location: toe Laterality: right Qualified Code(s): L89.892 - Pressure ulcer of other site, stage 2 Code(s): L89.92 - Pressure ulcer of unspecified site, stage 2 (6) Type 2 diabetes mellitus with stage 2 decubitus ulcer of toe Status: Acute Current Visit: Yes Code(s): E11.621 - Type 2 diabetes mellitus with foot ulcer; L89.892 - Pressure ulcer of other site, stage 2 Type of Wound Date of Service: 02/06/19 Chief Complaint: Follow-up recurrent right great toe ulcer History of Wound: This is a 63-year-old white male diabetic with recurrent decubitus ulcer of the right great toe from blistering from his shoes then opens.He completed antibiotics. He denies fever, chill, nausea, vomiting. He wears a diabetic shoe. He has a surgical shoe at home and wears this occasionally. He relates he walks around barefoot in a sock most of the time at home. Progress of Wound: The wound on the right great toe from a blister to opening is one half the size it was last week with a thin layer of new tissue over top. Not quite healed one more week with new shield #6 applying should do it. Still no signs of infection swelling redness pus or pain. Patient does develop a band of callus that needs to be nipped every week. Week the band of callus was very small and thin. The wound is stable just needs to close - Physical Exam Vital Signs Temp Pulse Resp BP 98.2 F 78 18 145/62 H 02/05/19 00:59 02/05/19 00:59 02/05/19 00:59 02/05/19 00:59 General: Oriented x3, Cooperative, Well developed HEENT: Atraumatic, PERRLA Oral: Moist Mucosa Neck: Supple, No JVD Lungs: Clear to auscultation, Normal air movement Cardiovascular: Regular rate, Regular Rhythm Abdomen: Bowel Sounds Present, Soft, Non Tender, No Hepato-splenomegaly Extremities: No clubbing, No edema, - - Right great toe ulcer Skin: Ulcer/ Wound Wound Measurements and Assessment WC - Nurse 2 - General Ulcer CM Notes Start: 02/06/19 08:33 Freq: Status: Active Protocol: Activity Type Activity Date Activity User E-Sign Co-Sign Detail Recorded Client Recorded Date Recorded By Document 02/06/19 08:34 MW [id number] 02/06/19 08:38 MW 02/06/19 08:34 Wound Center Nurse 2 [Procedure/Treatment] #3 right great toe -Time 08:37 -Correct Patient Yes -Correct Side, Site, Position Yes -Correct Procedure Yes -Procedure Performed Yes -Type of Procedure Debridement -Clinical Debridement Subcutaneous -Post Debridement Size (cm) - Length 0.4 -Post Debridement Size (cm) - Width 0.7 -Post Debridement Size (cm) - Depth 0.1 -Total Square Cm 0.28 -Wound/Ulcer Outcome Not Healed -Ulcer Cleansing Rinsed/ Irrigated with Saline -Foul Odor after Cleansing No -Bioengineered Tissue Yes -Type of bioengineered Tissue NU-SHIELD -Expiration Date 11/26/23 -Product Lot Number [id number] -Percent Used 100 -Saline Lot Number [id number] -Bleeding Controlled with Pressure -Other donor #[id number] -Offloading No -Treatment Response Procedure Tolerated Well [See Physician Procedure note for Specifics] Pain Scale: 0-10 Numeric [Pain] -Is Patient Pain Free? Yes Musculoskeletal: No Tenderness to Palpation of Joints or Extremities Lymphatic: No Cervical, Supraclavicular, or Inguinal Adenopathy Neurological: Cranial nerves II-XII grossly intact, Neuro grossly intact Psych/Mental Status: Normal Affect, Appropriate, Alert and oriented to time, place, person, mood and affect Debridement Note Post-Debridement Measurements/Treatment WC - Nurse 2 - General Ulcer CM Notes Start: 02/06/19 08:33 Freq: Status: Active Protocol: Activity Type Activity Date Activity User E-Sign Co-Sign Detail Recorded Client Recorded Date Recorded By Document 02/06/19 08:34 MW [id number] 02/06/19 08:38 MW 02/06/19 08:34 Wound Center Nurse 2 #3 right great toe -Time 08:37 -Correct Patient Yes -Correct Side, Site, Position Yes -Correct Procedure Yes -Procedure Performed Yes -Type of Procedure Debridement -Clinical Debridement Subcutaneous -Post Debridement Size (cm) - Length 0.4 -Post Debridement Size (cm) - Width 0.7 -Post Debridement Size (cm) - Depth 0.1 -Total Square Cm 0.28 -Wound/Ulcer Outcome Not Healed -Ulcer Cleansing Rinsed/ Irrigated with Saline -Foul Odor after Cleansing No -Bioengineered Tissue Yes -Type of bioengineered Tissue NU-SHIELD -Expiration Date 11/26/23 -Product Lot Number [id number] -Percent Used 100 -Saline Lot Number [id number] -Bleeding Controlled with Pressure -Other donor #[id number] -Offloading No -Treatment Response Procedure Tolerated Well Pain Scale: 0-10 Numeric Is Patient Pain Free? Yes Wound debrided: Right great toe Type of Debridement: Excisional debridement Anesthesia Used: 5% Lidocaine Gel Depth: Down to and including healthy tissue, in the subcutaneous layer Percentage of wound debrided: 100 Instrument Used: 3mm curette Tissue Removed: Callus and fibrin Severity: Limited To Skin Breakdown Amount of bleeding with debridement: Mild Bleeding Controlled with: Compression and gauze Patient tolerated procedure well Assessment/Plan Active Problems (Last Reviewed 02/05/18 @ 07:28 by Argelia Cody) Diabetic foot ulcer associated with type 2 diabetes mellitus (Acute) Pressure ulcer, stage II (Acute) Type 2 diabetes mellitus with stage 2 decubitus ulcer of toe (Acute) Blister (nonthermal), right great toe, subsequent encounter (Acute) Chronic anemia (Chronic) Chronic kidney disease (Chronic) Assessment: Right great toe ulcer with fat layer exposed today, rodgers grade 1. Renal failure dialysis. Diabetes type 2 diabetes with neuropathy. Hallux limitus right. Malnutrition. Healing delayed Plan: I performed a chart review and discuss this case. I applied #6 nu- shield to right great toe keep it covered only change the outside dressing if necessary. Verbal consent was obtained and this was applied according to standard protocol. He tolerated this well. This was secured in place of the wound veil and Steri-Strips. This is medically necessary for limb salvage. Follow-up in 1 week
[2019-02-13 08:08] VITALS: BP 152/68; PULSE 75; RESP 18; TEMP 36.4; BMI 30.1
--- NOTE | 2019-02-13 08:40 | WC ---
gauze to right great toe healed photo taken
--- NOTE | 2019-02-13 09:05 | PN.PCM_ITS ---
(1) Blister (nonthermal), right great toe, subsequent encounter Status: Acute Current Visit: Yes Code(s): S90.421D - Blister (nonthermal), right great toe, subsequent encounter (2) Chronic anemia Status: Chronic Current Visit: Yes Code(s): D64.9 - Anemia, unspecified (3) Chronic kidney disease Status: Chronic Current Visit: Yes Qualifiers: Code(s): N18.9 - Chronic kidney disease, unspecified (4) Diabetic foot ulcer associated with type 2 diabetes mellitus Status: Acute Current Visit: Yes Qualifiers: Diabetic foot ulcer location: toe Code(s): E11.621 - Type 2 diabetes mellitus with foot ulcer; L97.509 - Non- pressure chronic ulcer of other part of unspecified foot with unspecified severity (5) Pressure ulcer, stage II Status: Acute Current Visit: Yes Qualifiers: Pressure injury location: toe Laterality: right Qualified Code(s): L89.892 - Pressure ulcer of other site, stage 2 Code(s): L89.92 - Pressure ulcer of unspecified site, stage 2 (6) Type 2 diabetes mellitus with stage 2 decubitus ulcer of toe Status: Acute Current Visit: Yes Code(s): E11.621 - Type 2 diabetes mellitus with foot ulcer; L89.892 - Pressure ulcer of other site, stage 2 Type of Wound Date of Service: 02/13/19 Chief Complaint: Follow-up recurrent right great toe ulcer History of Wound: This is a 63-year-old white male diabetic with recurrent decubitus ulcer of the right great toe from blistering from his shoes then opens.He completed antibiotics. He denies fever, chill, nausea, vomiting. He wears a diabetic shoe. He has a surgical shoe at home and wears this occasionally. He relates he walks around barefoot in a sock most of the time at home. Progress of Wound: The ulcer on the right great toe from a blister has resolved. Patient will be discharged from the wound center follow-up as needed - Physical Exam Vital Signs Temp Pulse Resp BP 97.5 F L 75 18 152/68 H 02/13/19 08:08 02/13/19 08:08 02/13/19 08:08 02/13/19 08:08 General: Oriented x3, Cooperative, Well developed HEENT: Atraumatic, PERRLA Oral: Moist Mucosa Neck: Supple, No JVD Lungs: Clear to auscultation, Normal air movement Cardiovascular: Regular rate, Regular Rhythm Abdomen: Bowel Sounds Present, Soft, Non Tender, No Hepato-splenomegaly Extremities: No clubbing, No edema Skin: Ulcer/ Wound - Right great toe ulcer Wound Measurements and Assessment WC - Nurse 1 - General Ulcer Measurement Start: 02/06/19 08:33 Freq: Status: Active Protocol: Activity Type Activity Date Activity User E-Sign Co-Sign Detail Recorded Client Recorded Date Recorded By Document 02/13/19 08:08 DL [id number] 02/13/19 08:15 DL 02/13/19 08:08 Wound Center Nurse 1 [Ulcer Assessment] #3 right great toe -Current Size (cm) - Length 0.2 -Current Size (cm) - Width 0.4 -Current Size (cm) - Depth 0.1 -Total Square Cm 0.08 -Photo Taken No -Exudate Amt None Present -Wound Margin Flat & Intact -Granulation Amt Small (1-33%) -Granulation Quality [place] -Necrosis Amt None Present (0 %) -Structure Exposed N/A -Texture (Mila-wound Skin Appearance) Scarring -Moisture (Mila-wound Skin Appearance No Abnormality ) -Color (Mila-wound Skin Appearance) No Abnormality -Temperature (Mila-wound Skin No Abnormality Appearance) (Pt Warm) -Tenderness on Palpation (Mila-wound No Skin Appearance) -Ulcer Cleansing Rinsed/ Irrigated with Saline -Foul Odor after Cleansing No -Anesthetic Used 5% Lidocaine Gel - Nurse 2 - General Ulcer CM Notes Start: 02/06/19 08:33 Freq: Status: Active Protocol: Activity Type Activity Date Activity User E-Sign Co-Sign Detail Recorded Client Recorded Date Recorded By Document 02/13/19 08:33 MW [id number] 02/13/19 08:34 MW 02/13/19 08:33 Wound Center Nurse 2 [Procedure/Treatment] -Time 08:33 -Correct Patient Yes -Correct Side, Site, Position Yes -Correct Procedure Yes -Procedure Performed No -Post Debridement Size (cm) - Length 0 -Post Debridement Size (cm) - Width 0 -Post Debridement Size (cm) - Depth 0 -Total Square Cm 0 -Wound/Ulcer Outcome Healed- Epithelialized [See Physician Procedure note for Specifics] Pain Scale: 0-10 Numeric [Pain] -Is Patient Pain Free? Yes Musculoskeletal: No Tenderness to Palpation of Joints or Extremities Lymphatic: No Cervical, Supraclavicular, or Inguinal Adenopathy Neurological: Cranial nerves II-XII grossly intact, Neuro grossly intact Psych/Mental Status: Normal Affect, Appropriate Debridement Note Post-Debridement Measurements/Treatment WC - Nurse 2 - General Ulcer CM Notes Start: 02/06/19 08:33 Freq: Status: Active Protocol: Activity Type Activity Date Activity User E-Sign Co-Sign Detail Recorded Client Recorded Date Recorded By Document 02/06/19 08:34 MW [id number] 02/06/19 08:38 MW Document 02/13/19 08:33 MW [id number] 02/13/19 08:34 MW 02/06/19 02/13/19 08:34 08:33 Wound Center Nurse 2 #3 right great toe -Time 08:37 08:33 -Correct Patient Yes Yes -Correct Side, Site, Position Yes Yes -Correct Procedure Yes Yes -Procedure Performed Yes No -Type of Procedure Debridement -Clinical Debridement Subcutaneous -Post Debridement Size (cm) - Length 0.4 0 -Post Debridement Size (cm) - Width 0.7 0 -Post Debridement Size (cm) - Depth 0.1 0 -Total Square Cm 0.28 0 -Wound/Ulcer Outcome Not Healed Healed- Epithelialized -Ulcer Cleansing Rinsed/ Irrigated with Saline -Foul Odor after Cleansing No -Bioengineered Tissue Yes -Type of bioengineered Tissue NU-SHIELD -Expiration Date 11/26/23 -Product Lot Number [id number] -Percent Used 100 -Saline Lot Number [id number] -Bleeding Controlled with Pressure -Other donor #[id number] -Offloading No -Treatment Response Procedure Tolerated Well Pain Scale: 0-10 Numeric Is Patient Pain Free? Yes Yes No debridement was completed today Assessment/Plan Active Problems (Last Reviewed 02/05/18 @ 07:28 by Argelia Cody) Diabetic foot ulcer associated with type 2 diabetes mellitus (Acute) Pressure ulcer, stage II (Acute) Type 2 diabetes mellitus with stage 2 decubitus ulcer of toe (Acute) Blister (nonthermal), right great toe, subsequent encounter (Acute) Chronic anemia (Chronic) Chronic kidney disease (Chronic) Assessment: Right great toe ulcer with fat layer exposed today, rodgers grade 2 resolved. Renal failure dialysis. Diabetes type 2 diabetes with neuropathy. Hallux limitus right. Malnutrition. Healing delayed resolved Plan: Discharge from the wound center follow-up as needed keep right great toe covered for 1 week to protect new skin.
== END 2019-03-07 23:59 ==
LOC: WC 08:00
PROVIDERS: Family Provider Family Medicine; PCP Family Medicine; Visit Provider Nurse Practitioner
DX: E11.621 Type 2 diabetes mellitus with foot ulcer (principal); L89.892 Pressure ulcer of other site, stage 2; E11.22 Type 2 diabetes mellitus with diabetic chronic kidney disease; N18.9 Chronic kidney disease, unspecified; M20.5X1 Other deformities of toe(s) (acquired), right foot; S90.421D Blister (nonthermal), right great toe, subsequent encounter; X58.XXXD Exposure to other specified factors, subsequent encounter; E11.40 Type 2 diabetes mellitus with diabetic neuropathy, unspecified
CPT/HCPCS: 15275; 99212; Q4160; G0463

== ENCOUNTER → 2019-03-05 10:10 | Outpatient (CLI) | payer OTHER, MEDICARE, SELFPAY ==
[2019-02-13 08:08] VITALS: BMI 30.1
[2019-03-05 11:04] LABS: Cholesterol 150 mg/dL (200); High Density Lipoprotein 50 mg/dL; Triglycerides 192 mg/dL; Very Low Density Lipoprotein 38 mg/dL (5-40)
== END ==
PROVIDERS: Family Provider Family Medicine; PCP Family Medicine; Referring Provider Family Medicine; Visit Provider Family Medicine
DX: E78.5 Hyperlipidemia, unspecified (principal)
CPT/HCPCS: 36415; 80061

== ENCOUNTER → 2019-03-30 05:43 | Outpatient (CLI) | payer OTHER, MEDICARE, SELFPAY ==
[2019-03-30 08:03] LABS: ALB/GLOB Ratio 0.9 RATIO (0.9-2.4); AST(SGOT) 33 U/L (15-37); Alanine Aminotransfer ALT/SGPT 26 U/L (16-61); Albumin, Serum 3.7 g/dL (3.2-5.0); Alkaline Phosphatase 64 U/L (45-117); Anion Gap 14 (5-15); BUN 57 mg/dL (7-18); BUN/Creat Ratio 5.7 RATIO (10-20); Chloride 101 mmol/L (98-107); Creatinine, Serum 9.95 mg/dL (0.70-1.30); EST Glomerular Filtration Rate 6 mL/min (>60); Glucose 126 mg/dL (74-106); Potassium 4.7 mmol/L (3.5-5.1); Protein, Total 7.7 g/dL (6.4-8.2); Sodium Level 142 mmol/L (136-145)
[2019-03-30 08:04] LABS: Est Glom Filt Rate - Afr Amer 7 mL/min (>60)
[2019-03-30 09:31] LABS: Hemoglobin A1c 7.5 % (4.2-6.3)
== END ==
PROVIDERS: Family Provider Family Medicine; PCP Family Medicine; Referring Provider Internal Medicine Endocrinology, Diabetes & Metabolism; Visit Provider Internal Medicine Endocrinology, Diabetes & Metabolism
DX: E11.39 Type 2 diabetes mellitus with other diabetic ophthalmic complication (principal); E11.65 Type 2 diabetes mellitus with hyperglycemia
CPT/HCPCS: 36415; 80053; 83036; 84443

== ENCOUNTER 2019-04-22 06:09 | Day surgery (SDC) | payer OTHER, MEDICARE, SELFPAY ==
[2019-04-01 08:05] VITALS: BMI 30.1
--- NOTE | 2019-04-01 09:43 | HP_ITS ---
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 Is patient in pain?: No Allergies metformin Allergy (Verified 04/01/19 08:04) Itching Sulfa (Sulfonamide Antibiotics) Allergy (Verified 04/01/19 08:04) Swelling Medications Insulin Glargine [Lantus SoloStar Pen] 26 units SC DAILY 04/07/13 [History Confirmed 04/01/19] calcitriol 0.25 mcg capsule 0.5 mcg PO DAILY 07/10/17 [History Confirmed 04/01/19] finasteride 5 mg tablet 5 mg PO DAILY 07/10/17 [History Confirmed 04/01/19] furosemide 20 mg tablet 40 mg PO BID 07/10/17 [History Confirmed 04/01/19] losartan 50 mg tablet 100 mg PO DAILY 07/10/17 [History Confirmed 04/01/19] rosuvastatin 10 mg tablet 10 mg PO DAILY 07/10/17 [History Confirmed 04/01/19] Ergocalciferol [Vitamin D] 50,000 unit PO QMONTH 08/19/17 [History Confirmed 04/01/19] Insulin Lispro [Humalog] 10 - 12 unit SC BID 08/19/17 [History Confirmed 04/01/19] Iron Polysaccharide Complex [Ferrex 150] 150 mg PO DAILYCM 08/19/17 [History Confirmed 04/01/19] Nifedipine [Nifedipine ER] 60 mg PO DAILY 09/09/17 [History Confirmed 04/01/19] Calcium Acetate [Phoslo Gel Cap] 1,334 mg PO TIDCM 09/16/17 [History Confirmed 04/01/19] Folic Acid/Vitamin B Comp W-C [Nephrocaps, Renaphro] 1 cap PO DAILY #30 cap 11/02/17 [Rx Confirmed 04/01/19] Labetalol [Trandate (Beta Reuben)] 300 mg PO BID tab 11/02/17 [Rx Confirmed 04/01/19] ropinirole 1 mg tablet 1 mg PO QHS 04/01/19 [History Confirmed 04/01/19] PFSH Medical History Renal failure (Chronic) Essential hypertension (Chronic) Type II diabetes mellitus (Chronic) Hypercholesterolemia (Chronic) Anemia (Chronic) Presence of surgically created primary arteriovenous shunt for hemodialysis (Acute) Open fracture at right wrist or hand level (Resolved) Screening for intestinal cancer (Resolved) Surgical History Presence of surgically created arteriovenous shunt for hemodialysis (Acute) S/P colonoscopy (Acute) Family History Mother Diabetes Hypertension Heart disease Cancer lung Brother Diabetes Father Diabetes Cancer pancreas Social History (Updated 04/01/19 @ 09:43 by Jazlyn León PA-C) Smoking Status: Former smoker HPI HPI HPI: RODRI HECK, is a 63 M who presents to the office today for HPI HPI Surgical H&P: Yes HPI: RODRI HECK, is a 63 M who presents to the office today for decrease flow rate. Patient has a left forearm AV fistula. Patient's last intervention was on 10/15/18 which demonstrated 2 areas of proximal to mid fistula high-grade venous stenosis. A 6 x 40 mm conquest angioplasty was performed. Patient notes intermittent prolonged bleeding. Patient denies pain at the fistula site. He dialyzes on T, Th and Sat. He is on the transplant list at and also at [facility]. Patient is interested in a kidney and pancreas transplant. ROS General General: No weight change, appetite, fatigue, colon cancer, breast cancer or weakness HEENT HEENT: No difficulty swallowing, eye injury, eye surgery, swollen glands or hoarseness Endo Endocrine: Yes diabetes mellitus; no thyroid disease, thyroid cancer, Hair loss, heat intolerance or cold intolerance Skin Skin: No rash or changing moles Musc Musculoskeletal: No back problems, rheumatoid arthritis, gout or joint pain Cardio Cardiovascular: Yes high blood pressure; no murmur, pacemaker, heart disease, atrial fibrillation, heart attack, heart stent, palpitations, shortness of breat with exertion or chest pain Psych Psychiatric: No depression, anxiety or hearing voices Resp Respiratory: No shortness of breath, No sleep apnea, No cough, No COPD, No asthma, No emphysema, No wheezing Gastro Gastrointestinal: No abdominal pain, No nausea or vomiting, No diarrhea, Yes constipation, No blood in stool, No acid reflux, No hemorrhoids, No ulcers, No gallbladder problem, No black,tarry stools Ryder Hematologic: No blood thinners, No blood disorders, No bleeding, Yes anemia, No blood clots Neuro Neurologic: No weakness Exam Const General: cooperative, healthy appearing, comfortable, no acute distress [facility] Head: normal to inspection Eyes General: appearance normal, both eyes and all related structures Neck Neck: normal visual inspection Neck mass: No Resp Effort & Inspection: normal respiratory effort Auscultation: clear to auscultation bilaterally Cardio Rate: regular rate Rhythm: regular rhythm Heart Sounds: no murmurs GI Inspection: normal to inspection Palpation: soft Auscultation: normal bowel sounds Skin General: no rashes or lesions noted Neuro General: no focal motor deficits, CN's II-XI intact bilaterally Extrem Other: Left forearm AV fistula- good pulse, diminished bruit and thrill Psych Appearance: grossly normal Affect: normal affect Assessment & Plan Problems 1. Problem with dialysis access, initial encounter T82.841A Plan Dr. Espino will plan to perform a left forearm fistulogram. Procedure details, risks and benefits have been explained to the patient and his . Patient has had the opportunity to ask and have questions answered. Patient verbally understands and agrees with the plan. Coding Level of Care Code Off vis,est,level 3 Diagnoses Problem with dialysis access, initial encounter T82.462M ??Encounter type: initial encounter 04/01/19 0943 <Electronically signed by Jazlyn manley PA-C> Date _ Jazlyn León PA-C
[2019-04-15 08:50] LABS: Absolute Lymphocyte Count 1.61 X10^3/uL (0.83-4.51); Basophil# 0.05 X10^3/uL; Basophil% 0.5 % (0-1); Eosinophils% 2.1 % (0-5); Hematocrit 35.2 % (40-54); Hemoglobin 11.4 g/dL (13.0-16.5); Lymphocyte # 1.61 X10^3/ul (4.0); Lymphocyte % 16.6 % (19-41); Mean Corp Hgb Conc 32.4 g/dL (32-36); Mean Corpuscular Hgb 32.8 pg (27.0-32.0); Mean Corpuscular Volume 101.1 fL (80-94); Mean Platelet Vol. 9.9 fl (6.2-12.0); Monocyte# 0.78 X10^3/uL; NRBC Flagged by Analyzer 0 % (0-5); Neutrophil # 7.01 X10^3/uL (2.7-7.7); Neutrophil % 72.2 % (47-70); Platelet Count 222 K/mm3 (150-450); RBC Distribution Width CV 15.7 % (11.6-14.6); Red Blood Count 3.48 M/mm3 (4.6-6.2); White Blood Count 9.7 K/mm3 (4.4-11.0)
[2019-04-15 09:35] LABS: Anion Gap 12 (5-15); BUN 39 mg/dL (7-18); BUN/Creat Ratio 4.9 RATIO (10-20); Calcium,Total 9.1 mg/dL (8.5-10.1); Chloride 100 mmol/L (98-107); Creatinine, Serum 7.94 mg/dL (0.70-1.30); EST Glomerular Filtration Rate 7 mL/min (>60); Est Glom Filt Rate - Afr Amer 9 mL/min (>60); Glucose 105 mg/dL (74-106); Potassium 4.8 mmol/L (3.5-5.1); Sodium Level 142 mmol/L (136-145)
[2019-04-21 08:40] VITALS: BMI 29.5
[2019-04-22 07:10] LABS: Bedside Glucose 149 mg/dL (70-110)
--- NOTE | 2019-04-22 07:19 | HP.PCM_ITS ---
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 Required: No Is patient in pain?: No Allergies metformin Allergy (Verified 04/01/19 08:04) Itching Sulfa (Sulfonamide Antibiotics) Allergy (Verified 04/01/19 08:04) Swelling Medications Insulin Glargine [Lantus SoloStar Pen] 26 units SC DAILY 04/07/13 [History Confirmed 04/01/19] calcitriol 0.25 mcg capsule 0.5 mcg PO DAILY 07/10/17 [History Confirmed 04/01/19] finasteride 5 mg tablet 5 mg PO DAILY 07/10/17 [History Confirmed 04/01/19] furosemide 20 mg tablet 40 mg PO BID 07/10/17 [History Confirmed 04/01/19] losartan 50 mg tablet 100 mg PO DAILY 07/10/17 [History Confirmed 04/01/19] rosuvastatin 10 mg tablet 10 mg PO DAILY 07/10/17 [History Confirmed 04/01/19] Ergocalciferol [Vitamin D] 50,000 unit PO QMONTH 08/19/17 [History Confirmed 04/01/19] Insulin Lispro [Humalog] 10 - 12 unit SC BID 08/19/17 [History Confirmed 04/01/19] Iron Polysaccharide Complex [Ferrex 150] 150 mg PO DAILYCM 08/19/17 [History Confirmed 04/01/19] Nifedipine [Nifedipine ER] 60 mg PO DAILY 09/09/17 [History Confirmed 04/01/19] Calcium Acetate [Phoslo Gel Cap] 1,334 mg PO TIDCM 09/16/17 [History Confirmed 04/01/19] Folic Acid/Vitamin B Comp W-C [Nephrocaps, Renaphro] 1 cap PO DAILY #30 cap 11/02/17 [Rx Confirmed 04/01/19] Labetalol [Trandate (Beta Reuben)] 300 mg PO BID tab 11/02/17 [Rx Confirmed 04/01/19] ropinirole 1 mg tablet 1 mg PO QHS 04/01/19 [History Confirmed 04/01/19] PFSH Medical History Renal failure (Chronic) Essential hypertension (Chronic) Type II diabetes mellitus (Chronic) Hypercholesterolemia (Chronic) Anemia (Chronic) Presence of surgically created primary arteriovenous shunt for hemodialysis (Acute) Open fracture at right wrist or hand level (Resolved) Screening for intestinal cancer (Resolved) Surgical History Presence of surgically created arteriovenous shunt for hemodialysis (Acute) S/P colonoscopy (Acute) Family History Mother Diabetes Hypertension Heart disease Cancer lung Brother Diabetes Father Diabetes Cancer pancreas Social History (Updated 04/01/19 @ 09:43 by Jazlyn León PA-C) Smoking Status: Former smoker HPI HPI HPI: RODRI HECK, is a 63 M who presents to the office today for HPI HPI Surgical H&P: Yes HPI: RODRI HECK, is a 63 M who presents to the office today for decrease flow rate. Patient has a left forearm AV fistula. Patient's last intervention was on 10/15/18 which demonstrated 2 areas of proximal to mid fistula high-grade venous stenosis. A 6 x 40 mm conquest angioplasty was performed. Patient notes intermittent prolonged bleeding. Patient denies pain at the fistula site. He dialyzes on T, Th and Sat. He is on the transplant list at and also at [facility]. Patient is interested in a kidney and pancreas transplant. ROS General General: No weight change, appetite, fatigue, colon cancer, breast cancer or weakness HEENT HEENT: No difficulty swallowing, eye injury, eye surgery, swollen glands or hoarseness Endo Endocrine: Yes diabetes mellitus; no thyroid disease, thyroid cancer, Hair loss, heat intolerance or cold intolerance Skin Skin: No rash or changing moles Musc Musculoskeletal: No back problems, rheumatoid arthritis, gout or joint pain Cardio Cardiovascular: Yes high blood pressure; no murmur, pacemaker, heart disease, atrial fibrillation, heart attack, heart stent, palpitations, shortness of breat with exertion or chest pain Psych Psychiatric: No depression, anxiety or hearing voices Resp Respiratory: No shortness of breath, No sleep apnea, No cough, No COPD, No asthma, No emphysema, No wheezing Gastro Gastrointestinal: No abdominal pain, No nausea or vomiting, No diarrhea, Yes constipation, No blood in stool, No acid reflux, No hemorrhoids, No ulcers, No gallbladder problem, No black,tarry stools Ryder Hematologic: No blood thinners, No blood disorders, No bleeding, Yes anemia, No blood clots Neuro Neurologic: No weakness Exam Const General: cooperative, healthy appearing, comfortable, no acute distress HENOR Head: normal to inspection Eyes General: appearance normal, both eyes and all related structures Neck Neck: normal visual inspection Neck mass: No Resp Effort & Inspection: normal respiratory effort Auscultation: clear to auscultation bilaterally Cardio Rate: regular rate Rhythm: regular rhythm Heart Sounds: no murmurs GI Inspection: normal to inspection Palpation: soft Auscultation: normal bowel sounds Skin General: no rashes or lesions noted Neuro General: no focal motor deficits, CN's II-XI intact bilaterally Extrem Other: Left forearm AV fistula- good pulse, diminished bruit and thrill Psych Appearance: grossly normal Affect: normal affect Assessment & Plan Problems 1. Problem with dialysis access, initial encounter T82.575Z Plan Dr. Espino will plan to perform a left forearm fistulogram. Procedure details, risks and benefits have been explained to the patient and his . Patient has had the opportunity to ask and have questions answered. Patient verbally understands and agrees with the plan. Coding Level of Care Code Off vis,est,level 3 Diagnoses Problem with dialysis access, initial encounter T82.501R ??Encounter type: initial encounter 04/01/19 0943 <Electronically signed by Jazlyn manley PA-C> Date _ Jazlyn León PA-C Cosigner Signature: Date (if applicable) CC: Benjamín Espino MD ~ I have re-examined the patient. There are no clinical changes since date of exam.
--- NOTE | 2019-04-22 08:47 | OP.PCM_ITS ---
Problem List (1) Problem with dialysis access Status: Chronic Qualifiers: Encounter type: initial encounter Report of Operation Date of Procedure: 04/22/19 Pre-Operative Diagnosis: Increased bleeding left forearm radial to cephalic jos riovenous hemodialysis fistula Post-Operative Diagnosis: Proximal fistula venous inflow stenosis. Antecubital space venous outflow stenosis and venous spasm Surgery/Procedure Performed:: Left upper extremity fistulogram double access with 6 x 40 mm ConQuest angioplasty of the proximal portion of the fistula in the antecubital portion of the basilic vein outflow Description of Surgical Findings:: Timeout and informed consent was obtained. 63-year-old gentleman was taken to suite special procedures lab placed upon the table. The left upper extremity sterilely prepped and draped. Under ultrasound guidance 2% lidocaine was instilled close to the antecubital space retrograde with flow into the cephalic vein. Micropuncture wire inserted 6 Iranian short sheath was inserted. Using an 035 angled Glidewire and a 4 Iranian glide cath access was gained to the radial artery proximal to the arterial anastomosis. Isovue was used as a contrast material. Images that demonstrated erratic change of the very proximal 3 cm of the fistula with some stenosis up to 60%. I then placed a Glidewire and performed 6 x 40 mm ConQuest angioplasty up to 20 abraham of pressure. Completion view now demonstrated significant improvement in that area of stenosis. There appeared to be a combination of venous outflow spasm at the antecubital space. The majority outflow was provided via the basilic vein. So then I utilized ultrasound again closer to the wrist antegrade with flow 2% lidocaine was instilled. Micropuncture needle inserted antegrade with flow micropuncture wire inserted 6 Iranian short sheath guide was inserted. I then placed an angled Glidewire was able to get into the basilic vein outflow and performed 6 x 40 mm angioplasty of the basilic vein outflow. This appeared to be a combination of stenosis and spasm. Completion views were obtained of the upper arm and chest area demonstrating no additional central venous issues. He tolerated the procedure well. The sheaths were removed. U sutures of 4-0 nylon was placed. Hemostasis was intact. Blood loss was minimal. There is no apparent complication and he was taken to the recovery area in satisfactory condition. Images demonstrate a left forearm radial to cephalic arteriovenous fistula. There is aneurysmal change with stenosis in the proximal 3 cm of the fistula. There are then 2 additional areas of aneurysmal change in the proximal portion of the fistula in the midportion of the fistula. As the fistula approaches the antecubital space at the area of aneurysmal change and at the site of clinical suspicion of access is where the vein branches. It may be that that access point is placing the access needle up against a branching portion of the outflow basilic vein. The patient also has a degree of venous spasm. He will be able to re-utilized to use the fistula. Specimens none. Drains none. Blood loss minimal. Benjamín Espino M.D., F.A.C.S. Type of Anesthesia:: Local
== END 2019-04-22 09:55 | disposition home or self-care (01) ==
LOC: CLSP 06:10
PROVIDERS: Family Provider Family Medicine; PCP Family Medicine; Referring Provider Surgery; Visit Provider Surgery
DX: T82.858A Stenosis of other vascular prosthetic devices, implants and grafts, initial encounter (principal); T82.838A Hemorrhage due to vascular prosthetic devices, implants and grafts, initial encounter; I87.1 Compression of vein; I12.0 Hypertensive chronic kidney disease with stage 5 chronic kidney disease or end stage renal disease; E11.22 Type 2 diabetes mellitus with diabetic chronic kidney disease; N18.6 End stage renal disease; Z99.2 Dependence on renal dialysis; E78.00 Pure hypercholesterolemia, unspecified; D64.9 Anemia, unspecified; Z79.4 Long term (current) use of insulin; Z79.899 Other long term (current) drug therapy; Z88.2 Allergy status to sulfonamides; Z87.891 Personal history of nicotine dependence
CPT/HCPCS: 36415; 36902; 76937; 80048; 82962; 85025; Q9967; C1725; C1769

== ENCOUNTER → 2019-04-29 11:25 | Outpatient (CLI) | payer OTHER, MEDICARE, SELFPAY ==
[2019-04-29 08:09] VITALS: BMI 30.8
--- NOTE | 2019-04-29 11:35 | RAD_ITS ---
HISTORY: NO CHEST COMPLAINTS PER PT- HAVING HEART CATH DONE ON SATURDAY. NEEDS CXR TO GET ON TRANSPLANT WAITING LIST FOR NEW KIDNEY EXAM: XR Chest 2 Views: COMPARISON: November 01, 2017 FINDINGS: # of images incl. paperwork: 2 Lungs are clear. Heart is not enlarged. Bones are normal. Pulmonary vascularity is distinct. No effusions. RAD/Chest PA and Lateral IMPRESSION: Normal. at 0342 Reported and signed by: Bairon Pereyra MD Electronically Signed: Bairon Pereyra MD at 3:40 EDT Tel , Service support ,
[2019-04-29 12:15] LABS: Absolute Lymphocyte Count 1.84 X10^3/uL (0.83-4.51); Absolute Neutrophil Count 6.4 X10^3/uL (2.0-7.7); Basophil# 0.05 X10^3/uL; Basophil% 0.5 % (0-1); Eosinophil# 0.21 X10^3/uL; Eosinophils% 2.2 % (0-5); Hematocrit 32.1 % (40-54); Hemoglobin 10.3 g/dL (13.0-16.5); Lymphocyte # 1.84 X10^3/ul (4.0); Lymphocyte % 19.6 % (19-41); Mean Corp Hgb Conc 32.1 g/dL (32-36); Mean Corpuscular Hgb 32.2 pg (27.0-32.0); Mean Corpuscular Volume 100.3 fL (80-94); Mean Platelet Vol. 10.2 fl (6.2-12.0); Monocyte# 0.85 X10^3/uL; Monocyte% 9.1 % (0-10); NRBC Flagged by Analyzer 0 % (0-5); Neutrophil # 6.38 X10^3/uL (2.7-7.7); Neutrophil % 68.2 % (47-70); Platelet Count 239 K/mm3 (150-450); RBC Distribution Width CV 14.7 % (11.6-14.6); RBC Distribution Width SD 54.8 fl (35.1-43.9); White Blood Count 9.4 K/mm3 (4.4-11.0)
[2019-04-29 13:26] LABS: Anion Gap 7 (5-15); BUN 51 mg/dL (7-18); BUN/Creat Ratio 5.9 RATIO (10-20); Calcium,Total 9.4 mg/dL (8.5-10.1); Chloride 103 mmol/L (98-107); Creatinine, Serum 8.58 mg/dL (0.70-1.30); EST Glomerular Filtration Rate 7 mL/min (>60); Est Glom Filt Rate - Afr Amer 8 mL/min (>60); Glucose 119 mg/dL (74-106); Potassium 4.4 mmol/L (3.5-5.1); Sodium Level 139 mmol/L (136-145)
== END ==
PROVIDERS: Family Provider Family Medicine; PCP Family Medicine; Referring Provider Internal Medicine Cardiovascular Disease; Visit Provider Internal Medicine Cardiovascular Disease
DX: Z01.818 Encounter for other preprocedural examination (principal); Z76.82 Awaiting organ transplant status; I12.0 Hypertensive chronic kidney disease with stage 5 chronic kidney disease or end stage renal disease; N18.6 End stage renal disease; E78.00 Pure hypercholesterolemia, unspecified; R00.1 Bradycardia, unspecified; R06.02 Shortness of breath; D64.9 Anemia, unspecified; Z94.0 Kidney transplant status; Z99.2 Dependence on renal dialysis
CPT/HCPCS: 71046; 80048; 85025

== ENCOUNTER 2019-05-01 08:08 | Day surgery (SDC) | payer OTHER, MEDICARE, SELFPAY ==
[2019-04-29 08:09] VITALS: BMI 30.8
[2019-04-30 09:04] VITALS: BMI 30.8
--- NOTE | 2019-05-01 09:37 | CL.D_ITS ---
Patient Name: RODRI HECK Study Date: 05/01/2019 Performing: Mata Smalls MD Ht: 70.86 inches 180 cm : 1955 Wt: 220.46 lbs 100 kg Age: 63 Gender: male BSA: 2.2 PROCEDURE(S) PERFORMED FT19-[id number]/COR CLINICAL PROFILE AND INDICATIONS Indications: Suspected CAD Heart Failure: None Stress/Imaging Stress/Image Study Performed: No CAD Presentations: No Sxs, no angina. CONCLUSIONS MILD CAD with No high grade stenosis RECOMMENDATIONS Medical therapy Dialysis in am. 45cc contrast only DESCRIPTION OF PROCEDURE The patient arrived to the procedure lab. The risks and benefits of the procedure as well as a full d escription of our services here and current unavailability of surgical backup were fully explained to the patient and/or their significant other prior to the catheterization. The Timeout was completed, verifying the correct patient and procedure. The patient's procedural site was prepped and draped in the usual fashion. Local anesthetic was given subcutaneously to right groin region with Lidocaine 2%. Using a modified Seldinger technique, arterial access was obtained via the right femoral artery, a 5 Fr sheath was inserted. Left Coronary Artery selective angiography was performed in multiple views u sing a 5 Fr. JL4 catheter. Right Coronary Artery selective angiography was then performed in multiple views using a 5 Fr. 3DRC (Sony) catheter.Contrast was injected through the sheath and the Right Iliac and Femoral artery were assessed for possible closure device.The arterial sheath was pulled and a Mynx closure device was deployed for hemostasis CORONARY ANGIOGRAPHY DOMINANCE: Right Dominant LEFT HEART ASSESSMENT Left Ventricular Ejection Fraction: by Echo 60 % Normal LV wall motion Normal Left Ventricular systolic function LEFT MAIN: Mild calcification LEFT ANTERIOR DESCENDING ARTERY: Mild luminal irregularities CIRCUMFLEX ARTERY: Mild luminal irregularities RIGHT CORONARY ARTERY: Mild luminal irregularities less than 30% COMPLICATIONS No Complications PROCEDURE MEDICATIONS Versed 1 mg IV Oxygen: 2 L/min via nasal cannula SUMMARY OF HEMODYNAMIC DATA Time AIR REST ECG 08:34:28 AO 144/61 (95) SA 09:15:33 AO 155/57 (91) 09:21:53 Signed By Mata Smalls MD On 05/01/2019 9:57:13 AM Signed By Mata Smalls MD On 05/01/2019 9:36:23 AM Mata Smalls MD
== END 2019-05-01 12:10 | disposition home or self-care (01) ==
LOC: CLSP 08:08
PROVIDERS: Family Provider Family Medicine; PCP Family Medicine; Referring Provider Internal Medicine Cardiovascular Disease; Visit Provider Internal Medicine Cardiovascular Disease
DX: I25.10 Atherosclerotic heart disease of native coronary artery without angina pectoris (principal); I12.0 Hypertensive chronic kidney disease with stage 5 chronic kidney disease or end stage renal disease; E11.22 Type 2 diabetes mellitus with diabetic chronic kidney disease; N18.6 End stage renal disease; Z99.2 Dependence on renal dialysis; D64.9 Anemia, unspecified; E78.00 Pure hypercholesterolemia, unspecified; N40.0 Benign prostatic hyperplasia without lower urinary tract symptoms; Z79.4 Long term (current) use of insulin; Z79.899 Other long term (current) drug therapy; Z87.891 Personal history of nicotine dependence
CPT/HCPCS: 93454; 99152; 99153; C1760; J7040; C1769; Q9967

== ENCOUNTER → 2019-06-17 05:47 | Outpatient (CLI) | payer OTHER, MEDICARE, SELFPAY ==
[2019-04-30 09:04] VITALS: BMI 30.8
[2019-06-17 08:08] LABS: AST(SGOT) 31 U/L (15-37); Alanine Aminotransfer ALT/SGPT 25 U/L (16-61); Albumin, Serum 4.2 g/dL (3.2-5.0); Alkaline Phosphatase 74 U/L (45-117); Anion Gap 7 (5-15); BUN 38 mg/dL (7-18); Calcium,Total 9.4 mg/dL (8.5-10.1); Chloride 101 mmol/L (98-107); Creatinine, Serum 7.61 mg/dL (0.70-1.30); EST Glomerular Filtration Rate 8 mL/min (>60); Est Glom Filt Rate - Afr Amer 9 mL/min (>60); Glucose 125 mg/dL (74-106); Potassium 5.6 mmol/L (3.5-5.1); Protein, Total 8.2 g/dL (6.4-8.2); Sodium Level 139 mmol/L (136-145)
[2019-06-17 08:27] LABS: Hemoglobin A1c 6.7 % (4.2-6.3)
== END ==
PROVIDERS: Family Provider Family Medicine; PCP Family Medicine; Referring Provider Family Medicine; Visit Provider Family Medicine
DX: I12.0 Hypertensive chronic kidney disease with stage 5 chronic kidney disease or end stage renal disease (principal); E11.22 Type 2 diabetes mellitus with diabetic chronic kidney disease; N18.6 End stage renal disease; E11.49 Type 2 diabetes mellitus with other diabetic neurological complication
CPT/HCPCS: 36415; 80053; 83036

== ENCOUNTER → 2019-07-15 05:45 | Outpatient (CLI) | payer OTHER, MEDICARE, SELFPAY ==
[2019-04-30 09:04] VITALS: BMI 30.8
[2019-07-15 08:25] LABS: ALB/GLOB Ratio 0.9 RATIO (0.9-2.4); AST(SGOT) 23 U/L (15-37); Alanine Aminotransfer ALT/SGPT 26 U/L (16-61); Albumin, Serum 3.8 g/dL (3.2-5.0); Alkaline Phosphatase 73 U/L (45-117); Anion Gap 8 (5-15); BUN 48 mg/dL (7-18); Chloride 100 mmol/L (98-107); Creatinine, Serum 8.06 mg/dL (0.70-1.30); EST Glomerular Filtration Rate 7 mL/min (>60); Est Glom Filt Rate - Afr Amer 9 mL/min (>60); Globulin 4.1 g/dL (2.2-4.2); Glucose 127 mg/dL (74-106); Potassium 4.6 mmol/L (3.5-5.1); Protein, Total 7.9 g/dL (6.4-8.2); Sodium Level 139 mmol/L (136-145)
[2019-07-15 08:49] LABS: Vitamin D,25 Hydroxy 39.6 ng/mL (29.95-100.01)
== END ==
PROVIDERS: Family Provider Family Medicine; PCP Family Medicine; Referring Provider Internal Medicine Endocrinology, Diabetes & Metabolism; Visit Provider Internal Medicine Endocrinology, Diabetes & Metabolism
DX: E11.39 Type 2 diabetes mellitus with other diabetic ophthalmic complication (principal); E11.65 Type 2 diabetes mellitus with hyperglycemia
CPT/HCPCS: 36415; 80053; 82306; 83036

== ENCOUNTER → 2019-09-18 05:50 | Outpatient (CLI) | payer OTHER, MEDICARE, SELFPAY ==
[2019-09-03 10:12] VITALS: BMI 30.8
[2019-09-18 07:41] LABS: ALB/GLOB Ratio 0.9 RATIO (0.9-2.4); AST(SGOT) 26 U/L (15-37); Alanine Aminotransfer ALT/SGPT 26 U/L (16-61); Albumin, Serum 3.9 g/dL (3.2-5.0); Alkaline Phosphatase 65 U/L (45-117); Anion Gap 10 (5-15); BUN 43 mg/dL (7-18); Chloride 98 mmol/L (98-107); Cholesterol 174 mg/dL (200); Creatinine, Serum 7.15 mg/dL (0.70-1.30); EST Glomerular Filtration Rate 8 mL/min (>60); Est Glom Filt Rate - Afr Amer 10 mL/min (>60); Globulin 4.3 g/dL (2.2-4.2); Glucose 103 mg/dL (74-106); High Density Lipoprotein 46 mg/dL; Potassium 4.5 mmol/L (3.5-5.1); Protein, Total 8.2 g/dL (6.4-8.2); Sodium Level 138 mmol/L (136-145); Triglycerides 179 mg/dL; Very Low Density Lipoprotein 36 mg/dL (5-40)
== END ==
PROVIDERS: PCP Family Medicine; Referring Provider Family Medicine; Visit Provider Family Medicine
DX: E11.22 Type 2 diabetes mellitus with diabetic chronic kidney disease (principal); N18.6 End stage renal disease; E78.5 Hyperlipidemia, unspecified
CPT/HCPCS: 36415; 80053; 80061; 83036

== ENCOUNTER 2019-11-05 07:51 | Outpatient (RCR) | payer OTHER, MEDICARE, SELFPAY ==
[2019-09-03 10:12] VITALS: BMI 30.8
[2019-10-29 08:53] LABS: Absolute Lymphocyte Count 1.21 X10^3/uL (0.83-4.51); Absolute Neutrophil Count 8.8 X10^3/uL (2.0-7.7); Basophil# 0.04 X10^3/uL; Basophil% 0.3 % (0-1); Eosinophil# 0.39 X10^3/uL; Eosinophils% 3.3 % (0-5); Hematocrit 28.1 % (40-54); Hemoglobin 9.2 g/dL (13.0-16.5); Lymphocyte # 1.21 X10^3/ul (4.0); Lymphocyte % 10.4 % (19-41); Mean Corp Hgb Conc 32.7 g/dL (32-36); Mean Corpuscular Volume 100.7 fL (80-94); Mean Platelet Vol. 9.6 fl (6.2-12.0); Monocyte# 1.01 X10^3/uL; Monocyte% 8.6 % (0-10); NRBC Flagged by Analyzer 0 % (0-5); Neutrophil # 8.81 X10^3/uL (2.7-7.7); Neutrophil % 75.4 % (47-70); Platelet Count 236 K/mm3 (150-450); RBC Distribution Width CV 16.4 % (11.6-14.6); RBC Distribution Width SD 60.4 fl (35.1-43.9); Red Blood Count 2.79 M/mm3 (4.6-6.2); White Blood Count 11.7 K/mm3 (4.4-11.0)
[2019-10-29 09:21] LABS: AST(SGOT) 23 U/L (15-37); Alanine Aminotransfer ALT/SGPT 27 U/L (16-61); Albumin, Serum 3.3 g/dL (3.2-5.0); Alkaline Phosphatase 54 U/L (45-117); Anion Gap 6 (5-15); BUN 48 mg/dL (7-18); BUN/Creat Ratio 27.3 RATIO (10-20); Calcium,Total 8.7 mg/dL (8.5-10.1); Chloride 106 mmol/L (98-107); Cholesterol 145 mg/dL (200); Creatinine, Serum 1.76 mg/dL (0.70-1.30); EST Glomerular Filtration Rate 42 mL/min (>60); Est Glom Filt Rate - Afr Amer 50 mL/min (>60); Glucose 137 mg/dL (74-106); High Density Lipoprotein 39 mg/dL; Iron 42 ug/dL (65-175); Iron Binding Capacity,Total 196 ug/dL (250-450); Magnesium 2.6 mg/dL (1.6-2.6); PERCENT IRON SATURATION 21.4 % (15.0-55.0); Phosphorus 2.2 mg/dL (2.5-4.9); Sodium Level 139 mmol/L (136-145); Triglycerides 227 mg/dL; Uric Acid 9.2 mg/dL (3.5-7.2); Very Low Density Lipoprotein 45 mg/dL (5-40)
[2019-10-30 08:26] LABS: Ferritin 1042 ng/mL (26-388)
[2019-11-02 08:16] LABS: Absolute Lymphocyte Count 1.15 X10^3/uL (0.83-4.51); Absolute Neutrophil Count 6.6 X10^3/uL (2.0-7.7); Basophil# 0.06 X10^3/uL; Basophil% 0.7 % (0-1); Eosinophils% 2.2 % (0-5); Hematocrit 27.5 % (40-54); Hemoglobin 8.9 g/dL (13.0-16.5); Lymphocyte # 1.15 X10^3/ul (4.0); Lymphocyte % 12.8 % (19-41); Mean Corp Hgb Conc 32.4 g/dL (32-36); Mean Corpuscular Hgb 32.1 pg (27.0-32.0); Mean Corpuscular Volume 99.3 fL (80-94); Mean Platelet Vol. 9.6 fl (6.2-12.0); Monocyte# 0.87 X10^3/uL; Monocyte% 9.7 % (0-10); NRBC Flagged by Analyzer 0 % (0-5); Neutrophil # 6.57 X10^3/uL (2.7-7.7); Neutrophil % 73.5 % (47-70); Platelet Count 292 K/mm3 (150-450); RBC Distribution Width CV 16.1 % (11.6-14.6); RBC Distribution Width SD 58.7 fl (35.1-43.9); Red Blood Count 2.77 M/mm3 (4.6-6.2)
[2019-11-02 08:18] LABS: Albumin, Serum 3.3 g/dL (3.2-5.0); Anion Gap 6 (5-15); BUN 20 mg/dL (7-18); Calcium,Total 8.9 mg/dL (8.5-10.1); Chloride 112 mmol/L (98-107); Creatinine, Serum 1.27 mg/dL (0.70-1.30); EST Glomerular Filtration Rate 61 mL/min (>60); Est Glom Filt Rate - Afr Amer 73 mL/min (>60); Glucose 127 mg/dL (74-106); Magnesium 1.9 mg/dL (1.6-2.6); Phosphorus 2.1 mg/dL (2.5-4.9); Potassium 4.4 mmol/L (3.5-5.1); Sodium Level 142 mmol/L (136-145)
[2019-11-03 05:56] LABS: CMV by PCR Negative (Negative); Tacrolimus (FK506) 6.4 ng/mL (2.0-20.0); Transferrin 150 mg/dL (177-329)
[2019-11-05 08:22] LABS: Absolute Lymphocyte Count 1.17 X10^3/uL (0.83-4.51); Absolute Neutrophil Count 10.1 X10^3/uL (2.0-7.7); Basophil# 0.09 X10^3/uL; Basophil% 0.7 % (0-1); Eosinophil# 0.19 X10^3/uL; Eosinophils% 1.5 % (0-5); Hematocrit 26.6 % (40-54); Hemoglobin 8.7 g/dL (13.0-16.5); Lymphocyte # 1.17 X10^3/ul (4.0); Lymphocyte % 9.3 % (19-41); Mean Corp Hgb Conc 32.7 g/dL (32-36); Mean Corpuscular Hgb 32.3 pg (27.0-32.0); Mean Corpuscular Volume 98.9 fL (80-94); Mean Platelet Vol. 9.5 fl (6.2-12.0); Monocyte# 0.96 X10^3/uL; Monocyte% 7.6 % (0-10); NRBC Flagged by Analyzer 0 % (0-5); Neutrophil # 10.07 X10^3/uL (2.7-7.7); Neutrophil % 80.3 % (47-70); Platelet Count 311 K/mm3 (150-450); RBC Distribution Width CV 15.9 % (11.6-14.6); RBC Distribution Width SD 57.5 fl (35.1-43.9); Red Blood Count 2.69 M/mm3 (4.6-6.2); White Blood Count 12.6 K/mm3 (4.4-11.0)
[2019-11-05 08:45] LABS: Anion Gap 7 (5-15); BUN 20 mg/dL (7-18); Chloride 111 mmol/L (98-107); Creatinine, Serum 1.32 mg/dL (0.70-1.30); EST Glomerular Filtration Rate 58 mL/min (>60); Est Glom Filt Rate - Afr Amer 70 mL/min (>60); Glucose 134 mg/dL (74-106); Potassium 4.5 mmol/L (3.5-5.1); Sodium Level 140 mmol/L (136-145)
[2019-11-05 17:01] LABS: CMV by PCR Negative (Negative); Tacrolimus (FK506) 6.6 ng/mL (2.0-20.0)
[2019-11-08 14:07] LABS: Tacrolimus (FK506) 6.7 ng/mL (2.0-20.0)
== END 2019-11-05 18:00 | disposition home or self-care (01) ==
LOC: LAB 07:51
PROVIDERS: PCP Family Medicine
DX: Z94.0 Kidney transplant status (principal); R79.9 Abnormal finding of blood chemistry, unspecified; Z48.298 Encounter for aftercare following other organ transplant; D89.9 Disorder involving the immune mechanism, unspecified; Z79.899 Other long term (current) drug therapy; D50.8 Other iron deficiency anemias
CPT/HCPCS: 36415; 80048; 80051; 80061; 80197; 82040; 82247; 82310; 82565; 82728; 82947; 83540; 83550; 83735; 84075; 84100; 84450; 84460; 84466; 84520; 84550; 85025; 87496

== ENCOUNTER 2019-12-03 07:45 | Outpatient (RCR) | payer OTHER, MEDICARE, SELFPAY ==
[2019-09-03 10:12] VITALS: BMI 30.8
[2019-11-09 08:19] LABS: Absolute Neutrophil Count 5.1 X10^3/uL (2.0-7.7); Basophil# 0.09 X10^3/uL; Basophil% 1.2 % (0-1); Eosinophil# 0.17 X10^3/uL; Eosinophils% 2.3 % (0-5); Hematocrit 29.2 % (40-54); Hemoglobin 9.1 g/dL (13.0-16.5); Lymphocyte % 15.2 % (19-41); Mean Corp Hgb Conc 31.2 g/dL (32-36); Mean Corpuscular Hgb 31.4 pg (27.0-32.0); Mean Corpuscular Volume 100.7 fL (80-94); Mean Platelet Vol. 9.5 fl (6.2-12.0); Monocyte# 0.79 X10^3/uL; Monocyte% 10.9 % (0-10); NRBC Flagged by Analyzer 0 % (0-5); Neutrophil # 5.08 X10^3/uL (2.7-7.7); Neutrophil % 70.1 % (47-70); Platelet Count 288 K/mm3 (150-450); RBC Distribution Width CV 15.2 % (11.6-14.6); RBC Distribution Width SD 56.4 fl (35.1-43.9); White Blood Count 7.3 K/mm3 (4.4-11.0)
[2019-11-09 08:44] LABS: Albumin, Serum 3.4 g/dL (3.2-5.0); Anion Gap 5 (5-15); BUN 21 mg/dL (7-18); Calcium,Total 9.1 mg/dL (8.5-10.1); Chloride 112 mmol/L (98-107); EST Glomerular Filtration Rate 54 mL/min (>60); Est Glom Filt Rate - Afr Amer 66 mL/min (>60); Glucose 127 mg/dL (74-106); Phosphorus 2.5 mg/dL (2.5-4.9); Potassium 4.8 mmol/L (3.5-5.1); Sodium Level 139 mmol/L (136-145)
[2019-11-12 08:06] LABS: Absolute Lymphocyte Count 1.15 X10^3/uL (0.83-4.51); Absolute Neutrophil Count 5.3 X10^3/uL (2.0-7.7); Basophil# 0.09 X10^3/uL; Basophil% 1.2 % (0-1); Eosinophil# 0.17 X10^3/uL; Eosinophils% 2.3 % (0-5); Hemoglobin 9.1 g/dL (13.0-16.5); Lymphocyte # 1.15 X10^3/ul (4.0); Lymphocyte % 15.5 % (19-41); Mean Corp Hgb Conc 32.5 g/dL (32-36); Mean Corpuscular Hgb 31.7 pg (27.0-32.0); Mean Corpuscular Volume 97.6 fL (80-94); Mean Platelet Vol. 9.3 fl (6.2-12.0); Monocyte# 0.68 X10^3/uL; Monocyte% 9.2 % (0-10); NRBC Flagged by Analyzer 0 % (0-5); Neutrophil % 71.5 % (47-70); Platelet Count 274 K/mm3 (150-450); RBC Distribution Width CV 14.6 % (11.6-14.6); Red Blood Count 2.87 M/mm3 (4.6-6.2); White Blood Count 7.4 K/mm3 (4.4-11.0)
[2019-11-12 08:46] LABS: AST(SGOT) 13 U/L (15-37); Alanine Aminotransfer ALT/SGPT 20 U/L (16-61); Albumin, Serum 3.4 g/dL (3.2-5.0); Alkaline Phosphatase 99 U/L (45-117); Anion Gap 7 (5-15); BUN 17 mg/dL (7-18); Bilirubin, Direct 0.11 mg/dL (0.00-0.30); Chloride 109 mmol/L (98-107); Creatinine, Serum 1.22 mg/dL (0.70-1.30); EST Glomerular Filtration Rate 64 mL/min (>60); Est Glom Filt Rate - Afr Amer 77 mL/min (>60); Globulin 3.9 g/dL (2.2-4.2); Glucose 117 mg/dL (74-106); Potassium 4.6 mmol/L (3.5-5.1); Protein, Total 7.3 g/dL (6.4-8.2); Sodium Level 139 mmol/L (136-145)
[2019-11-12 15:22] LABS: CMV by PCR Negative (Negative); Tacrolimus (FK506) 7.2 ng/mL (2.0-20.0)
[2019-11-15 09:22] LABS: Tacrolimus (FK506) 7.4 ng/mL (2.0-20.0)
[2019-11-16 08:15] LABS: Absolute Lymphocyte Count 1.17 X10^3/uL (0.83-4.51); Absolute Neutrophil Count 3.9 X10^3/uL (2.0-7.7); Basophil# 0.06 X10^3/uL; Eosinophil# 0.15 X10^3/uL; Eosinophils% 2.5 % (0-5); Hemoglobin 9.2 g/dL (13.0-16.5); Lymphocyte # 1.17 X10^3/ul (4.0); Lymphocyte % 19.6 % (19-41); Mean Corp Hgb Conc 32.9 g/dL (32-36); Mean Corpuscular Hgb 32.3 pg (27.0-32.0); Mean Corpuscular Volume 98.2 fL (80-94); Mean Platelet Vol. 9.6 fl (6.2-12.0); Monocyte# 0.65 X10^3/uL; Monocyte% 10.9 % (0-10); NRBC Flagged by Analyzer 0 % (0-5); Neutrophil # 3.92 X10^3/uL (2.7-7.7); Neutrophil % 65.8 % (47-70); Platelet Count 304 K/mm3 (150-450); RBC Distribution Width CV 14.2 % (11.6-14.6); RBC Distribution Width SD 51.1 fl (35.1-43.9); Red Blood Count 2.85 M/mm3 (4.6-6.2)
[2019-11-16 08:46] LABS: Albumin, Serum 3.7 g/dL (3.2-5.0); Anion Gap 6 (5-15); BUN 22 mg/dL (7-18); Calcium,Total 9.4 mg/dL (8.5-10.1); Chloride 112 mmol/L (98-107); EST Glomerular Filtration Rate 59 mL/min (>60); Est Glom Filt Rate - Afr Amer 71 mL/min (>60); Glucose 147 mg/dL (74-106); Magnesium 1.9 mg/dL (1.6-2.6); Phosphorus 2.5 mg/dL (2.5-4.9); Potassium 4.7 mmol/L (3.5-5.1); Sodium Level 140 mmol/L (136-145)
[2019-11-19 08:38] LABS: Absolute Lymphocyte Count 1.43 X10^3/uL (0.83-4.51); Absolute Neutrophil Count 4.6 X10^3/uL (2.0-7.7); Basophil# 0.08 X10^3/uL; Basophil% 1.1 % (0-1); Eosinophils% 2.8 % (0-5); Hematocrit 28.9 % (40-54); Hemoglobin 9.3 g/dL (13.0-16.5); Lymphocyte # 1.43 X10^3/ul (4.0); Lymphocyte % 19.9 % (19-41); Mean Corp Hgb Conc 32.2 g/dL (32-36); Mean Corpuscular Hgb 31.7 pg (27.0-32.0); Mean Corpuscular Volume 98.6 fL (80-94); Mean Platelet Vol. 9.8 fl (6.2-12.0); Monocyte# 0.82 X10^3/uL; Monocyte% 11.4 % (0-10); NRBC Flagged by Analyzer 0 % (0-5); Neutrophil # 4.61 X10^3/uL (2.7-7.7); Neutrophil % 64.2 % (47-70); Platelet Count 343 K/mm3 (150-450); RBC Distribution Width CV 14.1 % (11.6-14.6); RBC Distribution Width SD 50.4 fl (35.1-43.9); Red Blood Count 2.93 M/mm3 (4.6-6.2); White Blood Count 7.2 K/mm3 (4.4-11.0)
[2019-11-19 09:18] LABS: Anion Gap 9 (5-15); BUN 25 mg/dL (7-18); Chloride 110 mmol/L (98-107); Creatinine, Serum 1.51 mg/dL (0.70-1.30); EST Glomerular Filtration Rate 50 mL/min (>60); Est Glom Filt Rate - Afr Amer 60 mL/min (>60); Glucose 120 mg/dL (74-106); Potassium 4.9 mmol/L (3.5-5.1); Sodium Level 141 mmol/L (136-145)
[2019-11-21 14:59] LABS: Tacrolimus (FK506) 10.5 ng/mL (2.0-20.0)
[2019-11-23 08:55] LABS: Basophil# 0.07 X10^3/uL; Basophil% 0.8 % (0-1); Eosinophil# 0.26 X10^3/uL; Hematocrit 27.1 % (40-54); Hemoglobin 8.7 g/dL (13.0-16.5); Mean Corp Hgb Conc 32.1 g/dL (32-36); Mean Corpuscular Hgb 31.4 pg (27.0-32.0); Mean Corpuscular Volume 97.8 fL (80-94); Mean Platelet Vol. 9.9 fl (6.2-12.0); Monocyte# 0.97 X10^3/uL; Monocyte% 11.1 % (0-10); NRBC Flagged by Analyzer 0 % (0-5); Neutrophil # 5.97 X10^3/uL (2.7-7.7); Neutrophil % 68.3 % (47-70); Platelet Count 318 K/mm3 (150-450); RBC Distribution Width CV 13.6 % (11.6-14.6); RBC Distribution Width SD 48.6 fl (35.1-43.9); Red Blood Count 2.77 M/mm3 (4.6-6.2); White Blood Count 8.7 K/mm3 (4.4-11.0)
[2019-11-23 09:29] LABS: AST(SGOT) 18 U/L (15-37); Alanine Aminotransfer ALT/SGPT 20 U/L (16-61); Anion Gap 7 (5-15); BUN 29 mg/dL (7-18); Chloride 109 mmol/L (98-107); Cholesterol 178 mg/dL (200); Creatinine, Serum 1.52 mg/dL (0.70-1.30); EST Glomerular Filtration Rate 49 mL/min (>60); Est Glom Filt Rate - Afr Amer 60 mL/min (>60); Ferritin 1187 ng/mL (26-388); Glucose 164 mg/dL (74-106); High Density Lipoprotein 42 mg/dL; Iron Binding Capacity,Total 228 ug/dL (250-450); Potassium 4.9 mmol/L (3.5-5.1); Sodium Level 138 mmol/L (136-145); Triglycerides 248 mg/dL; Uric Acid 8.6 mg/dL (3.5-7.2); Very Low Density Lipoprotein 50 mg/dL (5-40)
[2019-11-24 16:45] LABS: CMV by PCR Negative (Negative); Tacrolimus (FK506) 10.4 ng/mL (2.0-20.0)
[2019-11-30 08:48] LABS: Absolute Lymphocyte Count 1.08 X10^3/uL (0.83-4.51); Absolute Neutrophil Count 5.9 X10^3/uL (2.0-7.7); Basophil# 0.03 X10^3/uL; Basophil% 0.4 % (0-1); Eosinophil# 0.08 X10^3/uL; Hematocrit 28.2 % (40-54); Hemoglobin 8.8 g/dL (13.0-16.5); Lymphocyte # 1.08 X10^3/ul (4.0); Lymphocyte % 13.4 % (19-41); Mean Corp Hgb Conc 31.2 g/dL (32-36); Mean Corpuscular Hgb 31.1 pg (27.0-32.0); Mean Corpuscular Volume 99.6 fL (80-94); Mean Platelet Vol. 9.8 fl (6.2-12.0); Monocyte# 0.96 X10^3/uL; Monocyte% 11.9 % (0-10); NRBC Flagged by Analyzer 0 % (0-5); Neutrophil # 5.86 X10^3/uL (2.7-7.7); Neutrophil % 72.8 % (47-70); Platelet Count 286 K/mm3 (150-450); RBC Distribution Width CV 13.3 % (11.6-14.6); RBC Distribution Width SD 48.3 fl (35.1-43.9); Red Blood Count 2.83 M/mm3 (4.6-6.2); White Blood Count 8.1 K/mm3 (4.4-11.0)
[2019-11-30 09:12] LABS: AST(SGOT) 19 U/L (15-37); Alanine Aminotransfer ALT/SGPT 22 U/L (16-61); Albumin, Serum 3.7 g/dL (3.2-5.0); Alkaline Phosphatase 97 U/L (45-117); Anion Gap 5 (5-15); BUN 23 mg/dL (7-18); BUN/Creat Ratio 16.2 RATIO (10-20); Calcium,Total 9.1 mg/dL (8.5-10.1); Chloride 114 mmol/L (98-107); Creatinine, Serum 1.42 mg/dL (0.70-1.30); EST Glomerular Filtration Rate 53 mL/min (>60); Est Glom Filt Rate - Afr Amer 65 mL/min (>60); Globulin 3.7 g/dL (2.2-4.2); Glucose 148 mg/dL (74-106); Magnesium 1.9 mg/dL (1.6-2.6); Phosphorus 2.7 mg/dL (2.5-4.9); Potassium 4.9 mmol/L (3.5-5.1); Protein, Total 7.4 g/dL (6.4-8.2); Sodium Level 141 mmol/L (136-145)
[2019-12-02 06:51] LABS: CMV by PCR Negative (Negative); Tacrolimus (FK506) 13.7 ng/mL (2.0-20.0); Transferrin 169 mg/dL (177-329)
[2019-12-02 16:50] LABS: Tacrolimus (FK506) 9.4 ng/mL (2.0-20.0)
[2019-12-03 08:13] LABS: Absolute Lymphocyte Count 1.13 X10^3/uL (0.83-4.51); Absolute Neutrophil Count 5.5 X10^3/uL (2.0-7.7); Basophil# 0.04 X10^3/uL; Basophil% 0.5 % (0-1); Eosinophil# 0.11 X10^3/uL; Eosinophils% 1.5 % (0-5); Hematocrit 28.1 % (40-54); Hemoglobin 8.8 g/dL (13.0-16.5); Lymphocyte # 1.13 X10^3/ul (4.0); Mean Corp Hgb Conc 31.3 g/dL (32-36); Mean Corpuscular Hgb 31.1 pg (27.0-32.0); Mean Corpuscular Volume 99.3 fL (80-94); Mean Platelet Vol. 10.2 fl (6.2-12.0); Monocyte# 0.74 X10^3/uL; Monocyte% 9.8 % (0-10); NRBC Flagged by Analyzer 0 % (0-5); Neutrophil # 5.48 X10^3/uL (2.7-7.7); Neutrophil % 72.8 % (47-70); Platelet Count 273 K/mm3 (150-450); RBC Distribution Width CV 13.2 % (11.6-14.6); RBC Distribution Width SD 47.8 fl (35.1-43.9); Red Blood Count 2.83 M/mm3 (4.6-6.2); White Blood Count 7.5 K/mm3 (4.4-11.0)
[2019-12-03 08:39] LABS: Anion Gap 5 (5-15); BUN 22 mg/dL (7-18); Chloride 114 mmol/L (98-107); EST Glomerular Filtration Rate 54 mL/min (>60); Est Glom Filt Rate - Afr Amer 66 mL/min (>60); Glucose 167 mg/dL (74-106); Potassium 4.9 mmol/L (3.5-5.1); Sodium Level 142 mmol/L (136-145)
[2019-12-12 13:11] LABS: CMV by PCR Negative (Negative); Tacrolimus (FK506) 12.1 ng/mL (2.0-20.0)
== END 2019-12-03 18:00 | disposition home or self-care (01) ==
LOC: LAB 07:45
PROVIDERS: PCP Family Medicine
DX: Z94.0 Kidney transplant status (principal); R79.9 Abnormal finding of blood chemistry, unspecified; Z48.298 Encounter for aftercare following other organ transplant; D89.9 Disorder involving the immune mechanism, unspecified; Z79.899 Other long term (current) drug therapy; D50.8 Other iron deficiency anemias
CPT/HCPCS: 36415; 80051; 80053; 80061; 80076; 80197; 82040; 82247; 82310; 82565; 82728; 82947; 83550; 83735; 84100; 84450; 84460; 84466; 84520; 84550; 85025; 87496

== ENCOUNTER 2020-01-04 07:14 | Outpatient (RCR) | payer OTHER, MEDICARE, SELFPAY ==
[2019-09-03 10:12] VITALS: BMI 30.8
[2019-12-07 08:32] LABS: Absolute Lymphocyte Count 0.91 X10^3/uL (0.83-4.51); Basophil# 0.04 X10^3/uL; Basophil% 0.6 % (0-1); Eosinophils% 1.5 % (0-5); Hematocrit 30.1 % (40-54); Hemoglobin 9.2 g/dL (13.0-16.5); Lymphocyte # 0.91 X10^3/ul (4.0); Lymphocyte % 13.4 % (19-41); Mean Corp Hgb Conc 30.6 g/dL (32-36); Mean Corpuscular Hgb 30.4 pg (27.0-32.0); Mean Corpuscular Volume 99.3 fL (80-94); Mean Platelet Vol. 10.2 fl (6.2-12.0); Monocyte# 0.73 X10^3/uL; Monocyte% 10.8 % (0-10); NRBC Flagged by Analyzer 0 % (0-5); Neutrophil # 4.98 X10^3/uL (2.7-7.7); Neutrophil % 73.3 % (47-70); Platelet Count 281 K/mm3 (150-450); RBC Distribution Width CV 13.5 % (11.6-14.6); RBC Distribution Width SD 48.8 fl (35.1-43.9); Red Blood Count 3.03 M/mm3 (4.6-6.2); White Blood Count 6.8 K/mm3 (4.4-11.0)
[2019-12-07 09:14] LABS: Albumin, Serum 3.9 g/dL (3.2-5.0); Anion Gap 7 (5-15); BUN 22 mg/dL (7-18); Calcium,Total 9.5 mg/dL (8.5-10.1); Chloride 110 mmol/L (98-107); Creatinine, Serum 1.42 mg/dL (0.70-1.30); EST Glomerular Filtration Rate 53 mL/min (>60); Est Glom Filt Rate - Afr Amer 65 mL/min (>60); Glucose 167 mg/dL (74-106); Magnesium 1.9 mg/dL (1.6-2.6); Phosphorus 2.6 mg/dL (2.5-4.9); Potassium 4.7 mmol/L (3.5-5.1); Sodium Level 139 mmol/L (136-145)
[2019-12-10 08:11] LABS: Absolute Lymphocyte Count 1.02 X10^3/uL (0.83-4.51); Absolute Neutrophil Count 4.3 X10^3/uL (2.0-7.7); Basophil# 0.03 X10^3/uL; Basophil% 0.5 % (0-1); Eosinophil# 0.14 X10^3/uL; Eosinophils% 2.3 % (0-5); Hematocrit 30.1 % (40-54); Hemoglobin 9.4 g/dL (13.0-16.5); Lymphocyte # 1.02 X10^3/ul (4.0); Lymphocyte % 16.5 % (19-41); Mean Corp Hgb Conc 31.2 g/dL (32-36); Mean Corpuscular Hgb 31.3 pg (27.0-32.0); Mean Corpuscular Volume 100.3 fL (80-94); Monocyte# 0.67 X10^3/uL; Monocyte% 10.9 % (0-10); NRBC Flagged by Analyzer 0 % (0-5); Neutrophil # 4.28 X10^3/uL (2.7-7.7); Neutrophil % 69.3 % (47-70); Platelet Count 261 K/mm3 (150-450); RBC Distribution Width CV 13.4 % (11.6-14.6); White Blood Count 6.2 K/mm3 (4.4-11.0)
[2019-12-10 08:29] LABS: AST(SGOT) 17 U/L (15-37); Alanine Aminotransfer ALT/SGPT 26 U/L (16-61); Anion Gap 7 (5-15); BUN 20 mg/dL (7-18); Chloride 111 mmol/L (98-107); Cholesterol 172 mg/dL (200); EST Glomerular Filtration Rate 50 mL/min (>60); Est Glom Filt Rate - Afr Amer 61 mL/min (>60); Glucose 125 mg/dL (74-106); Potassium 4.7 mmol/L (3.5-5.1); Sodium Level 141 mmol/L (136-145); Triglycerides 242 mg/dL
[2019-12-12 14:27] LABS: Tacrolimus (FK506) 10.5 ng/mL (2.0-20.0)
[2019-12-14 07:50] LABS: Absolute Lymphocyte Count 0.86 X10^3/uL (0.83-4.51); Absolute Neutrophil Count 4.1 X10^3/uL (2.0-7.7); Basophil# 0.04 X10^3/uL; Basophil% 0.7 % (0-1); Eosinophil# 0.13 X10^3/uL; Eosinophils% 2.3 % (0-5); Hematocrit 30.5 % (40-54); Hemoglobin 9.3 g/dL (13.0-16.5); Lymphocyte # 0.86 X10^3/ul (4.0); Lymphocyte % 14.9 % (19-41); Mean Corp Hgb Conc 30.5 g/dL (32-36); Mean Corpuscular Hgb 30.4 pg (27.0-32.0); Mean Corpuscular Volume 99.7 fL (80-94); Monocyte# 0.63 X10^3/uL; Monocyte% 10.9 % (0-10); NRBC Flagged by Analyzer 0 % (0-5); Neutrophil # 4.09 X10^3/uL (2.7-7.7); Neutrophil % 70.9 % (47-70); Platelet Count 258 K/mm3 (150-450); RBC Distribution Width CV 13.4 % (11.6-14.6); RBC Distribution Width SD 49.1 fl (35.1-43.9); Red Blood Count 3.06 M/mm3 (4.6-6.2); White Blood Count 5.8 K/mm3 (4.4-11.0)
[2019-12-14 08:10] LABS: Anion Gap 8 (5-15); BUN 21 mg/dL (7-18); Chloride 111 mmol/L (98-107); Creatinine, Serum 1.48 mg/dL (0.70-1.30); EST Glomerular Filtration Rate 51 mL/min (>60); Est Glom Filt Rate - Afr Amer 62 mL/min (>60); Glucose 206 mg/dL (74-106); Phosphorus 2.2 mg/dL (2.5-4.9); Potassium 4.6 mmol/L (3.5-5.1); Sodium Level 142 mmol/L (136-145)
[2019-12-15 12:29] LABS: CMV by PCR Positive (Negative); Tacrolimus (FK506) 8.3 ng/mL (2.0-20.0)
[2019-12-17 07:32] LABS: Absolute Neutrophil Count 4.1 X10^3/uL (2.0-7.7); Basophil# 0.03 X10^3/uL; Basophil% 0.5 % (0-1); Eosinophil# 0.16 X10^3/uL; Eosinophils% 2.6 % (0-5); Hematocrit 29.5 % (40-54); Hemoglobin 9.1 g/dL (13.0-16.5); Lymphocyte % 16.5 % (19-41); Mean Corp Hgb Conc 30.8 g/dL (32-36); Mean Corpuscular Hgb 30.5 pg (27.0-32.0); Mean Platelet Vol. 9.8 fl (6.2-12.0); Monocyte# 0.73 X10^3/uL; Monocyte% 12.1 % (0-10); NRBC Flagged by Analyzer 0 % (0-5); Neutrophil # 4.12 X10^3/uL (2.7-7.7); Neutrophil % 68.1 % (47-70); Platelet Count 252 K/mm3 (150-450); RBC Distribution Width CV 13.4 % (11.6-14.6); RBC Distribution Width SD 47.6 fl (35.1-43.9); Red Blood Count 2.98 M/mm3 (4.6-6.2); White Blood Count 6.1 K/mm3 (4.4-11.0)
[2019-12-17 07:52] LABS: Anion Gap 8 (5-15); BUN 26 mg/dL (7-18); Chloride 109 mmol/L (98-107); Creatinine, Serum 1.52 mg/dL (0.70-1.30); EST Glomerular Filtration Rate 49 mL/min (>60); Est Glom Filt Rate - Afr Amer 60 mL/min (>60); Glucose 246 mg/dL (74-106); Potassium 4.5 mmol/L (3.5-5.1); Sodium Level 139 mmol/L (136-145)
[2019-12-21 07:44] LABS: Absolute Lymphocyte Count 0.94 X10^3/uL (0.83-4.51); Absolute Neutrophil Count 4.2 X10^3/uL (2.0-7.7); Basophil# 0.03 X10^3/uL; Basophil% 0.5 % (0-1); Eosinophil# 0.16 X10^3/uL; Eosinophils% 2.7 % (0-5); Hematocrit 29.6 % (40-54); Hemoglobin 9.1 g/dL (13.0-16.5); Lymphocyte # 0.94 X10^3/ul (4.0); Mean Corp Hgb Conc 30.7 g/dL (32-36); Mean Corpuscular Hgb 30.3 pg (27.0-32.0); Mean Corpuscular Volume 98.7 fL (80-94); Monocyte# 0.54 X10^3/uL; Monocyte% 9.2 % (0-10); NRBC Flagged by Analyzer 0 % (0-5); Neutrophil # 4.18 X10^3/uL (2.7-7.7); Neutrophil % 71.3 % (47-70); Platelet Count 258 K/mm3 (150-450); RBC Distribution Width CV 13.3 % (11.6-14.6); RBC Distribution Width SD 47.6 fl (35.1-43.9); White Blood Count 5.9 K/mm3 (4.4-11.0)
[2019-12-21 07:53] LABS: Albumin, Serum 3.9 g/dL (3.2-5.0)
[2019-12-22 09:51] LABS: CMV by PCR Positive (Negative); Tacrolimus (FK506) 9.4 ng/mL (2.0-20.0)
[2019-12-24 08:01] LABS: Absolute Lymphocyte Count 0.86 X10^3/uL (0.83-4.51); Absolute Neutrophil Count 3.9 X10^3/uL (2.0-7.7); Basophil# 0.04 X10^3/uL; Basophil% 0.7 % (0-1); Eosinophil# 0.19 X10^3/uL; Eosinophils% 3.4 % (0-5); Hematocrit 30.5 % (40-54); Hemoglobin 8.9 g/dL (13.0-16.5); Lymphocyte # 0.86 X10^3/ul (4.0); Lymphocyte % 15.3 % (19-41); Mean Corp Hgb Conc 29.2 g/dL (32-36); Mean Corpuscular Hgb 28.9 pg (27.0-32.0); Monocyte# 0.64 X10^3/uL; Monocyte% 11.4 % (0-10); NRBC Flagged by Analyzer 0 % (0-5); Neutrophil # 3.88 X10^3/uL (2.7-7.7); Neutrophil % 68.8 % (47-70); Platelet Count 252 K/mm3 (150-450); RBC Distribution Width CV 13.5 % (11.6-14.6); RBC Distribution Width SD 48.5 fl (35.1-43.9); Red Blood Count 3.08 M/mm3 (4.6-6.2); White Blood Count 5.6 K/mm3 (4.4-11.0)
[2019-12-24 08:38] LABS: AST(SGOT) 15 U/L (15-37); Alanine Aminotransfer ALT/SGPT 23 U/L (16-61); Alkaline Phosphatase 89 U/L (45-117); Anion Gap 9 (5-15); BUN 22 mg/dL (7-18); Chloride 111 mmol/L (98-107); Cholesterol 163 mg/dL (200); Creatinine, Serum 1.41 mg/dL (0.70-1.30); EST Glomerular Filtration Rate 54 mL/min (>60); Est Glom Filt Rate - Afr Amer 65 mL/min (>60); Ferritin 1238 ng/mL (26-388); Glucose 235 mg/dL (74-106); High Density Lipoprotein 33 mg/dL; Iron 91 ug/dL (65-175); Iron Binding Capacity,Total 222 ug/dL (250-450); Potassium 4.2 mmol/L (3.5-5.1); Sodium Level 141 mmol/L (136-145); Triglycerides 267 mg/dL; Uric Acid 9.2 mg/dL (3.5-7.2); Very Low Density Lipoprotein 53 mg/dL (5-40)
[2019-12-28 05:18] LABS: Tacrolimus (FK506) 11.3 ng/mL (2.0-20.0); Transferrin 175 mg/dL (177-329)
[2019-12-28 07:49] LABS: Absolute Lymphocyte Count 0.94 X10^3/uL (0.83-4.51); Absolute Neutrophil Count 4.4 X10^3/uL (2.0-7.7); Basophil# 0.03 X10^3/uL; Basophil% 0.5 % (0-1); Eosinophil# 0.19 X10^3/uL; Eosinophils% 3.1 % (0-5); Hematocrit 31.5 % (40-54); Hemoglobin 9.7 g/dL (13.0-16.5); Lymphocyte # 0.94 X10^3/ul (4.0); Lymphocyte % 15.2 % (19-41); Mean Corp Hgb Conc 30.8 g/dL (32-36); Mean Corpuscular Volume 97.5 fL (80-94); Mean Platelet Vol. 9.9 fl (6.2-12.0); Monocyte# 0.62 X10^3/uL; NRBC Flagged by Analyzer 0 % (0-5); Neutrophil % 70.9 % (47-70); Platelet Count 232 K/mm3 (150-450); RBC Distribution Width CV 13.2 % (11.6-14.6); RBC Distribution Width SD 47.5 fl (35.1-43.9); Red Blood Count 3.23 M/mm3 (4.6-6.2); White Blood Count 6.2 K/mm3 (4.4-11.0)
[2019-12-28 08:20] LABS: Albumin, Serum 3.7 g/dL (3.2-5.0); Anion Gap 8 (5-15); BUN 26 mg/dL (7-18); Chloride 110 mmol/L (98-107); Creatinine, Serum 1.63 mg/dL (0.70-1.30); EST Glomerular Filtration Rate 45 mL/min (>60); Est Glom Filt Rate - Afr Amer 55 mL/min (>60); Glucose 265 mg/dL (74-106); Magnesium 1.8 mg/dL (1.6-2.6); Phosphorus 2.7 mg/dL (2.5-4.9); Potassium 4.2 mmol/L (3.5-5.1); Sodium Level 138 mmol/L (136-145)
[2019-12-30 03:19] LABS: CMV by PCR Positive (Negative)
[2019-12-31 08:34] LABS: Absolute Lymphocyte Count 0.86 X10^3/uL (0.83-4.51); Absolute Neutrophil Count 4.2 X10^3/uL (2.0-7.7); Basophil# 0.04 X10^3/uL; Basophil% 0.7 % (0-1); Eosinophil# 0.19 X10^3/uL; Eosinophils% 3.1 % (0-5); Hematocrit 31.6 % (40-54); Hemoglobin 9.5 g/dL (13.0-16.5); Lymphocyte # 0.86 X10^3/ul (4.0); Lymphocyte % 14.2 % (19-41); Mean Corp Hgb Conc 30.1 g/dL (32-36); Mean Corpuscular Hgb 29.5 pg (27.0-32.0); Mean Corpuscular Volume 98.1 fL (80-94); Mean Platelet Vol. 10.3 fl (6.2-12.0); Monocyte# 0.72 X10^3/uL; Monocyte% 11.9 % (0-10); NRBC Flagged by Analyzer 0 % (0-5); Neutrophil # 4.24 X10^3/uL (2.7-7.7); Neutrophil % 69.8 % (47-70); Platelet Count 232 K/mm3 (150-450); RBC Distribution Width CV 13.3 % (11.6-14.6); RBC Distribution Width SD 47.7 fl (35.1-43.9); Red Blood Count 3.22 M/mm3 (4.6-6.2); White Blood Count 6.1 K/mm3 (4.4-11.0)
[2019-12-31 08:41] LABS: Anion Gap 7 (5-15); BUN 19 mg/dL (7-18); Chloride 108 mmol/L (98-107); Creatinine, Serum 1.45 mg/dL (0.70-1.30); EST Glomerular Filtration Rate 52 mL/min (>60); Est Glom Filt Rate - Afr Amer 63 mL/min (>60); Glucose 286 mg/dL (74-106); Potassium 4.3 mmol/L (3.5-5.1); Sodium Level 138 mmol/L (136-145)
[2020-01-03 11:38] LABS: Tacrolimus (FK506) 11.2 ng/mL (2.0-20.0)
[2020-01-04 07:57] LABS: Absolute Lymphocyte Count 0.97 X10^3/uL (0.83-4.51); Absolute Neutrophil Count 3.6 X10^3/uL (2.0-7.7); Basophil# 0.04 X10^3/uL; Basophil% 0.7 % (0-1); Eosinophil# 0.19 X10^3/uL; Eosinophils% 3.5 % (0-5); Hemoglobin 9.2 g/dL (13.0-16.5); Lymphocyte # 0.97 X10^3/ul (4.0); Lymphocyte % 17.7 % (19-41); Mean Corp Hgb Conc 29.7 g/dL (32-36); Mean Corpuscular Hgb 28.8 pg (27.0-32.0); Mean Corpuscular Volume 97.2 fL (80-94); Mean Platelet Vol. 10.3 fl (6.2-12.0); Monocyte# 0.66 X10^3/uL; Monocyte% 12.1 % (0-10); NRBC Flagged by Analyzer 0 % (0-5); Neutrophil # 3.59 X10^3/uL (2.7-7.7); Neutrophil % 65.6 % (47-70); Platelet Count 250 K/mm3 (150-450); RBC Distribution Width CV 13.2 % (11.6-14.6); RBC Distribution Width SD 46.5 fl (35.1-43.9); Red Blood Count 3.19 M/mm3 (4.6-6.2); White Blood Count 5.5 K/mm3 (4.4-11.0)
[2020-01-04 08:27] LABS: Albumin, Serum 3.7 g/dL (3.2-5.0); Anion Gap 7 (5-15); Calcium,Total 8.8 mg/dL (8.5-10.1); Chloride 109 mmol/L (98-107); Magnesium 1.9 mg/dL (1.6-2.6); Potassium 4.2 mmol/L (3.5-5.1); Sodium Level 137 mmol/L (136-145)
[2020-01-09 07:58] LABS: CMV by PCR Positive (Negative); Tacrolimus (FK506) 14.2 ng/mL (2.0-20.0)
[2020-01-10 05:19] LABS: CMV by PCR Positive (Negative)
== END 2020-01-04 18:00 | disposition home or self-care (01) ==
LOC: LAB 07:14
PROVIDERS: PCP Family Medicine; Referring Provider Nurse Practitioner Acute Care; Visit Provider Nurse Practitioner Acute Care
DX: Z94.0 Kidney transplant status (principal); Z48.298 Encounter for aftercare following other organ transplant; R79.9 Abnormal finding of blood chemistry, unspecified; D89.9 Disorder involving the immune mechanism, unspecified; D50.8 Other iron deficiency anemias; Z79.899 Other long term (current) drug therapy
CPT/HCPCS: 36415; 80051; 80061; 80197; 82040; 82247; 82310; 82465; 82565; 82728; 82947; 83540; 83550; 83735; 84075; 84100; 84450; 84460; 84466; 84478; 84520; 84550; 85025; 87496

== ENCOUNTER 2020-01-21 07:12 | Outpatient (RCR) | payer OTHER, MEDICARE, SELFPAY ==
[2019-09-03 10:12] VITALS: BMI 30.8
[2020-01-07 08:20] LABS: Absolute Lymphocyte Count 1.03 X10^3/uL (0.83-4.51); Absolute Neutrophil Count 3.5 X10^3/uL (2.0-7.7); Basophil# 0.03 X10^3/uL; Basophil% 0.6 % (0-1); Eosinophil# 0.18 X10^3/uL; Eosinophils% 3.3 % (0-5); Hematocrit 31.1 % (40-54); Hemoglobin 9.3 g/dL (13.0-16.5); Lymphocyte # 1.03 X10^3/ul (4.0); Lymphocyte % 18.9 % (19-41); Mean Corp Hgb Conc 29.9 g/dL (32-36); Mean Corpuscular Volume 96.9 fL (80-94); Mean Platelet Vol. 10.4 fl (6.2-12.0); Monocyte# 0.69 X10^3/uL; Monocyte% 12.7 % (0-10); NRBC Flagged by Analyzer 0 % (0-5); Neutrophil # 3.49 X10^3/uL (2.7-7.7); Neutrophil % 63.9 % (47-70); Platelet Count 246 K/mm3 (150-450); RBC Distribution Width CV 13.2 % (11.6-14.6); RBC Distribution Width SD 47.4 fl (35.1-43.9); Red Blood Count 3.21 M/mm3 (4.6-6.2); White Blood Count 5.5 K/mm3 (4.4-11.0)
[2020-01-07 09:08] LABS: AST(SGOT) 20 U/L (15-37); Alanine Aminotransfer ALT/SGPT 22 U/L (16-61); Alkaline Phosphatase 86 U/L (45-117); Anion Gap 9 (5-15); BUN 26 mg/dL (7-18); Chloride 110 mmol/L (98-107); EST Glomerular Filtration Rate 54 mL/min (>60); Est Glom Filt Rate - Afr Amer 66 mL/min (>60); Glucose 254 mg/dL (74-106); Potassium 4.3 mmol/L (3.5-5.1); Sodium Level 139 mmol/L (136-145)
[2020-01-11 07:49] LABS: Absolute Neutrophil Count 3.9 X10^3/uL (2.0-7.7); Basophil# 0.03 X10^3/uL; Basophil% 0.5 % (0-1); Eosinophil# 0.21 X10^3/uL; Eosinophils% 3.7 % (0-5); Hematocrit 31.5 % (40-54); Hemoglobin 9.4 g/dL (13.0-16.5); Lymphocyte % 15.7 % (19-41); Mean Corp Hgb Conc 29.8 g/dL (32-36); Mean Corpuscular Volume 97.2 fL (80-94); Mean Platelet Vol. 10.1 fl (6.2-12.0); Monocyte# 0.67 X10^3/uL; Monocyte% 11.7 % (0-10); NRBC Flagged by Analyzer 0 % (0-5); Neutrophil # 3.92 X10^3/uL (2.7-7.7); Neutrophil % 68.1 % (47-70); Platelet Count 247 K/mm3 (150-450); RBC Distribution Width CV 13.3 % (11.6-14.6); RBC Distribution Width SD 47.1 fl (35.1-43.9); Red Blood Count 3.24 M/mm3 (4.6-6.2); White Blood Count 5.8 K/mm3 (4.4-11.0)
[2020-01-11 08:00] LABS: Albumin, Serum 3.5 g/dL (3.2-5.0); Anion Gap 8 (5-15); BUN 17 mg/dL (7-18); Calcium,Total 8.5 mg/dL (8.5-10.1); Chloride 111 mmol/L (98-107); Creatinine, Serum 1.54 mg/dL (0.70-1.30); EST Glomerular Filtration Rate 49 mL/min (>60); Est Glom Filt Rate - Afr Amer 59 mL/min (>60); Glucose 274 mg/dL (74-106); Magnesium 1.9 mg/dL (1.6-2.6); Phosphorus 1.8 mg/dL (2.5-4.9); Potassium 4.3 mmol/L (3.5-5.1); Sodium Level 139 mmol/L (136-145)
[2020-01-14 07:51] LABS: Absolute Lymphocyte Count 1.03 X10^3/uL (0.83-4.51); Absolute Neutrophil Count 3.9 X10^3/uL (2.0-7.7); Basophil# 0.04 X10^3/uL; Basophil% 0.7 % (0-1); Eosinophils% 3.5 % (0-5); Hematocrit 30.8 % (40-54); Hemoglobin 9.2 g/dL (13.0-16.5); Lymphocyte # 1.03 X10^3/ul (4.0); Lymphocyte % 17.9 % (19-41); Mean Corp Hgb Conc 29.9 g/dL (32-36); Mean Corpuscular Hgb 29.2 pg (27.0-32.0); Mean Corpuscular Volume 97.8 fL (80-94); Mean Platelet Vol. 10.2 fl (6.2-12.0); Monocyte# 0.62 X10^3/uL; Monocyte% 10.7 % (0-10); NRBC Flagged by Analyzer 0 % (0-5); Neutrophil # 3.86 X10^3/uL (2.7-7.7); Neutrophil % 66.9 % (47-70); Platelet Count 255 K/mm3 (150-450); RBC Distribution Width CV 13.2 % (11.6-14.6); Red Blood Count 3.15 M/mm3 (4.6-6.2); White Blood Count 5.8 K/mm3 (4.4-11.0)
[2020-01-14 08:17] LABS: Anion Gap 6 (5-15); BUN 22 mg/dL (7-18); Chloride 110 mmol/L (98-107); Creatinine, Serum 1.42 mg/dL (0.70-1.30); EST Glomerular Filtration Rate 53 mL/min (>60); Est Glom Filt Rate - Afr Amer 64 mL/min (>60); Glucose 288 mg/dL (74-106); Potassium 4.6 mmol/L (3.5-5.1); Sodium Level 138 mmol/L (136-145)
[2020-01-17 08:46] LABS: Tacrolimus (FK506) 13.4 ng/mL (2.0-20.0)
[2020-01-18 07:37] LABS: Absolute Lymphocyte Count 0.84 X10^3/uL (0.83-4.51); Absolute Neutrophil Count 3.8 X10^3/uL (2.0-7.7); Basophil# 0.03 X10^3/uL; Basophil% 0.5 % (0-1); Eosinophil# 0.22 X10^3/uL; Eosinophils% 3.9 % (0-5); Hemoglobin 9.6 g/dL (13.0-16.5); Lymphocyte # 0.84 X10^3/ul (4.0); Lymphocyte % 14.9 % (19-41); Mean Corpuscular Hgb 28.9 pg (27.0-32.0); Mean Corpuscular Volume 96.4 fL (80-94); Monocyte% 12.4 % (0-10); NRBC Flagged by Analyzer 0 % (0-5); Neutrophil # 3.84 X10^3/uL (2.7-7.7); Neutrophil % 67.9 % (47-70); Platelet Count 240 K/mm3 (150-450); RBC Distribution Width CV 13.1 % (11.6-14.6); RBC Distribution Width SD 45.5 fl (35.1-43.9); Red Blood Count 3.32 M/mm3 (4.6-6.2); White Blood Count 5.7 K/mm3 (4.4-11.0)
[2020-01-18 08:09] LABS: Albumin, Serum 3.6 g/dL (3.2-5.0); Anion Gap 8 (5-15); BUN 17 mg/dL (7-18); Calcium,Total 8.3 mg/dL (8.5-10.1); Chloride 109 mmol/L (98-107); Creatinine, Serum 1.37 mg/dL (0.70-1.30); EST Glomerular Filtration Rate 56 mL/min (>60); Est Glom Filt Rate - Afr Amer 67 mL/min (>60); Glucose 163 mg/dL (74-106); Magnesium 1.9 mg/dL (1.6-2.6); Phosphorus 2.7 mg/dL (2.5-4.9); Potassium 4.4 mmol/L (3.5-5.1); Sodium Level 138 mmol/L (136-145)
[2020-01-21 04:17] LABS: CMV by PCR Positive (Negative); Tacrolimus (FK506) 10.2 ng/mL (2.0-20.0)
[2020-01-21 07:32] LABS: Absolute Lymphocyte Count 0.86 X10^3/uL (0.83-4.51); Absolute Neutrophil Count 3.6 X10^3/uL (2.0-7.7); Basophil# 0.04 X10^3/uL; Basophil% 0.7 % (0-1); Eosinophil# 0.21 X10^3/uL; Eosinophils% 3.9 % (0-5); Hematocrit 31.5 % (40-54); Hemoglobin 9.7 g/dL (13.0-16.5); Lymphocyte # 0.86 X10^3/ul (4.0); Lymphocyte % 15.9 % (19-41); Mean Corp Hgb Conc 30.8 g/dL (32-36); Mean Corpuscular Hgb 29.1 pg (27.0-32.0); Mean Corpuscular Volume 94.6 fL (80-94); Mean Platelet Vol. 9.9 fl (6.2-12.0); Monocyte# 0.69 X10^3/uL; Monocyte% 12.8 % (0-10); NRBC Flagged by Analyzer 0 % (0-5); Neutrophil # 3.57 X10^3/uL (2.7-7.7); Neutrophil % 66.1 % (47-70); Platelet Count 244 K/mm3 (150-450); RBC Distribution Width SD 44.2 fl (35.1-43.9); Red Blood Count 3.33 M/mm3 (4.6-6.2); White Blood Count 5.4 K/mm3 (4.4-11.0)
[2020-01-21 08:12] LABS: AST(SGOT) 18 U/L (15-37); Alanine Aminotransfer ALT/SGPT 20 U/L (16-61); Alkaline Phosphatase 89 U/L (45-117); Anion Gap 6 (5-15); BUN 14 mg/dL (7-18); Chloride 111 mmol/L (98-107); Cholesterol 145 mg/dL (200); Creatinine, Serum 1.26 mg/dL (0.70-1.30); EST Glomerular Filtration Rate 61 mL/min (>60); Est Glom Filt Rate - Afr Amer 74 mL/min (>60); Ferritin 1178 ng/mL (26-388); Glucose 197 mg/dL (74-106); High Density Lipoprotein 27 mg/dL; Iron 67 ug/dL (65-175); Iron Binding Capacity,Total 222 ug/dL (250-450); Potassium 4.4 mmol/L (3.5-5.1); Sodium Level 141 mmol/L (136-145); Triglycerides 290 mg/dL; Uric Acid 8.6 mg/dL (3.5-7.2); Very Low Density Lipoprotein 58 mg/dL (5-40)
[2020-01-23 12:13] LABS: Tacrolimus (FK506) 11.2 ng/mL (2.0-20.0); Transferrin 179 mg/dL (177-329)
[2020-02-01 20:42] LABS: CMV by PCR Positive (Negative); Tacrolimus (FK506) 9.9 ng/mL (2.0-20.0)
== END 2020-01-21 18:00 | disposition home or self-care (01) ==
LOC: LAB 07:12
PROVIDERS: PCP Family Medicine; Referring Provider Nurse Practitioner Acute Care; Visit Provider Nurse Practitioner Acute Care
DX: Z94.0 Kidney transplant status (principal); Z48.298 Encounter for aftercare following other organ transplant; R79.9 Abnormal finding of blood chemistry, unspecified; D89.9 Disorder involving the immune mechanism, unspecified; D50.8 Other iron deficiency anemias; Z79.899 Other long term (current) drug therapy
CPT/HCPCS: 36415; 80051; 80061; 80197; 82040; 82247; 82310; 82565; 82728; 82947; 83540; 83550; 83735; 84075; 84100; 84450; 84460; 84466; 84520; 84550; 85025; 87496

== ENCOUNTER 2020-02-04 07:10 | Outpatient (RCR) | payer OTHER, MEDICARE, SELFPAY ==
[2019-09-03 10:12] VITALS: BMI 30.8
[2020-01-25 08:22] LABS: Absolute Lymphocyte Count 1.06 X10^3/uL (0.83-4.51); Absolute Neutrophil Count 4.3 X10^3/uL (2.0-7.7); Basophil# 0.05 X10^3/uL; Basophil% 0.8 % (0-1); Eosinophil# 0.21 X10^3/uL; Eosinophils% 3.3 % (0-5); Hematocrit 31.9 % (40-54); Hemoglobin 9.7 g/dL (13.0-16.5); Lymphocyte # 1.06 X10^3/ul (4.0); Lymphocyte % 16.6 % (19-41); Mean Corp Hgb Conc 30.4 g/dL (32-36); Mean Corpuscular Hgb 28.9 pg (27.0-32.0); Mean Corpuscular Volume 94.9 fL (80-94); Mean Platelet Vol. 10.4 fl (6.2-12.0); Monocyte# 0.73 X10^3/uL; Monocyte% 11.4 % (0-10); NRBC Flagged by Analyzer 0 % (0-5); Neutrophil % 67.3 % (47-70); Platelet Count 247 K/mm3 (150-450); RBC Distribution Width CV 12.7 % (11.6-14.6); RBC Distribution Width SD 43.6 fl (35.1-43.9); Red Blood Count 3.36 M/mm3 (4.6-6.2); White Blood Count 6.4 K/mm3 (4.4-11.0)
[2020-01-25 08:54] LABS: Anion Gap 7 (5-15); BUN 23 mg/dL (7-18); Chloride 109 mmol/L (98-107); Creatinine, Serum 1.47 mg/dL (0.70-1.30); EST Glomerular Filtration Rate 51 mL/min (>60); Est Glom Filt Rate - Afr Amer 62 mL/min (>60); Glucose 173 mg/dL (74-106); Potassium 4.4 mmol/L (3.5-5.1); Sodium Level 138 mmol/L (136-145)
[2020-01-29 12:56] LABS: CMV by PCR Positive (Negative)
[2020-02-04 07:48] LABS: Absolute Lymphocyte Count 0.94 X10^3/uL (0.83-4.51); Absolute Neutrophil Count 3.5 X10^3/uL (2.0-7.7); Basophil# 0.03 X10^3/uL; Basophil% 0.5 % (0-1); Eosinophil# 0.29 X10^3/uL; Eosinophils% 5.2 % (0-5); Hematocrit 32.4 % (40-54); Hemoglobin 9.7 g/dL (13.0-16.5); Lymphocyte # 0.94 X10^3/ul (4.0); Mean Corp Hgb Conc 29.9 g/dL (32-36); Mean Corpuscular Hgb 28.4 pg (27.0-32.0); Mean Corpuscular Volume 94.7 fL (80-94); Mean Platelet Vol. 9.9 fl (6.2-12.0); Monocyte# 0.68 X10^3/uL; Monocyte% 12.3 % (0-10); NRBC Flagged by Analyzer 0 % (0-5); Neutrophil # 3.53 X10^3/uL (2.7-7.7); Neutrophil % 63.9 % (47-70); Platelet Count 244 K/mm3 (150-450); RBC Distribution Width CV 12.8 % (11.6-14.6); RBC Distribution Width SD 44.1 fl (35.1-43.9); Red Blood Count 3.42 M/mm3 (4.6-6.2); White Blood Count 5.5 K/mm3 (4.4-11.0)
[2020-02-04 08:30] LABS: Anion Gap 5 (5-15); BUN 17 mg/dL (7-18); Chloride 109 mmol/L (98-107); Creatinine, Serum 1.37 mg/dL (0.70-1.30); EST Glomerular Filtration Rate 56 mL/min (>60); Est Glom Filt Rate - Afr Amer 67 mL/min (>60); Glucose 166 mg/dL (74-106); Potassium 4.4 mmol/L (3.5-5.1); Sodium Level 137 mmol/L (136-145)
[2020-02-13 17:36] LABS: CMV by PCR Positive (Negative); Tacrolimus (FK506) 7.9 ng/mL (2.0-20.0)
== END 2020-02-04 18:00 | disposition home or self-care (01) ==
LOC: LAB 07:10
PROVIDERS: PCP Family Medicine; Referring Provider Internal Medicine Nephrology; Visit Provider Internal Medicine Nephrology
DX: Z94.0 Kidney transplant status (principal); D89.9 Disorder involving the immune mechanism, unspecified; Z79.899 Other long term (current) drug therapy; D50.9 Iron deficiency anemia, unspecified
CPT/HCPCS: 36415; 80051; 80197; 82565; 82947; 84520; 85025; 87496

== ENCOUNTER 2020-02-08 08:13 | Outpatient (RCR) | payer OTHER, MEDICARE, SELFPAY ==
[2019-09-03 10:12] VITALS: BMI 30.8
== END 2020-02-08 08:14 | disposition home or self-care (01) ==
LOC: LAB 08:13
PROVIDERS: PCP Family Medicine; Referring Provider Nurse Practitioner Acute Care; Visit Provider Nurse Practitioner Acute Care
DX: Z94.0 Kidney transplant status (principal); Z48.298 Encounter for aftercare following other organ transplant; R79.9 Abnormal finding of blood chemistry, unspecified; D89.9 Disorder involving the immune mechanism, unspecified; D50.8 Other iron deficiency anemias; Z79.899 Other long term (current) drug therapy

== ENCOUNTER 2020-03-07 07:09 | Outpatient (RCR) | payer OTHER, MEDICARE, SELFPAY ==
[2019-09-03 10:12] VITALS: BMI 30.8
[2020-02-08 08:12] LABS: Absolute Lymphocyte Count 1.05 X10^3/uL (0.83-4.51); Absolute Neutrophil Count 3.4 X10^3/uL (2.0-7.7); Basophil# 0.04 X10^3/uL; Basophil% 0.7 % (0-1); Eosinophil# 0.32 X10^3/uL; Eosinophils% 5.8 % (0-5); Hematocrit 33.8 % (40-54); Hemoglobin 10.1 g/dL (13.0-16.5); Lymphocyte # 1.05 X10^3/ul (4.0); Lymphocyte % 19.1 % (19-41); Mean Corp Hgb Conc 29.9 g/dL (32-36); Mean Corpuscular Hgb 28.1 pg (27.0-32.0); Mean Corpuscular Volume 94.2 fL (80-94); Mean Platelet Vol. 10.1 fl (6.2-12.0); Monocyte# 0.67 X10^3/uL; Monocyte% 12.2 % (0-10); NRBC Flagged by Analyzer 0 % (0-5); Neutrophil # 3.38 X10^3/uL (2.7-7.7); Neutrophil % 61.3 % (47-70); Platelet Count 259 K/mm3 (150-450); RBC Distribution Width CV 12.8 % (11.6-14.6); RBC Distribution Width SD 44.2 fl (35.1-43.9); Red Blood Count 3.59 M/mm3 (4.6-6.2); White Blood Count 5.5 K/mm3 (4.4-11.0)
[2020-02-08 08:38] LABS: AST(SGOT) 24 U/L (15-37); Alanine Aminotransfer ALT/SGPT 30 U/L (16-61); Albumin, Serum 3.4 g/dL (3.2-5.0); Alkaline Phosphatase 103 U/L (45-117); Anion Gap 6 (5-15); BUN 14 mg/dL (7-18); Chloride 110 mmol/L (98-107); Creatinine, Serum 1.24 mg/dL (0.70-1.30); EST Glomerular Filtration Rate 62 mL/min (>60); Est Glom Filt Rate - Afr Amer 75 mL/min (>60); Glucose 192 mg/dL (74-106); Potassium 4.2 mmol/L (3.5-5.1); Sodium Level 139 mmol/L (136-145)
[2020-02-15 07:21] LABS: Absolute Lymphocyte Count 1.22 X10^3/uL (0.83-4.51); Absolute Neutrophil Count 3.7 X10^3/uL (2.0-7.7); Basophil# 0.06 X10^3/uL; Eosinophil# 0.37 X10^3/uL; Eosinophils% 6.1 % (0-5); Hematocrit 34.3 % (40-54); Hemoglobin 10.4 g/dL (13.0-16.5); Lymphocyte # 1.22 X10^3/ul (4.0); Lymphocyte % 20.2 % (19-41); Mean Corp Hgb Conc 30.3 g/dL (32-36); Mean Corpuscular Hgb 28.5 pg (27.0-32.0); Mean Platelet Vol. 9.6 fl (6.2-12.0); Monocyte# 0.69 X10^3/uL; Monocyte% 11.4 % (0-10); NRBC Flagged by Analyzer 0 % (0-5); Neutrophil # 3.67 X10^3/uL (2.7-7.7); Neutrophil % 60.8 % (47-70); Platelet Count 253 K/mm3 (150-450); RBC Distribution Width CV 13.2 % (11.6-14.6); RBC Distribution Width SD 45.1 fl (35.1-43.9); Red Blood Count 3.65 M/mm3 (4.6-6.2)
[2020-02-15 07:34] LABS: Anion Gap 10 (5-15); BUN 15 mg/dL (7-18); Chloride 108 mmol/L (98-107); Creatinine, Serum 1.44 mg/dL (0.70-1.30); EST Glomerular Filtration Rate 52 mL/min (>60); Est Glom Filt Rate - Afr Amer 63 mL/min (>60); Glucose 173 mg/dL (74-106); Potassium 4.3 mmol/L (3.5-5.1); Sodium Level 141 mmol/L (136-145)
[2020-02-16 14:47] LABS: CMV by PCR Positive (Negative); Tacrolimus (FK506) 8.3 ng/mL (2.0-20.0)
[2020-02-22 07:53] LABS: Absolute Lymphocyte Count 1.13 X10^3/uL (0.83-4.51); Absolute Neutrophil Count 3.4 X10^3/uL (2.0-7.7); Basophil# 0.06 X10^3/uL; Eosinophil# 0.45 X10^3/uL; Eosinophils% 7.8 % (0-5); Hematocrit 34.8 % (40-54); Hemoglobin 10.6 g/dL (13.0-16.5); Lymphocyte # 1.13 X10^3/ul (4.0); Lymphocyte % 19.6 % (19-41); Mean Corp Hgb Conc 30.5 g/dL (32-36); Mean Corpuscular Hgb 28.3 pg (27.0-32.0); Mean Platelet Vol. 10.1 fl (6.2-12.0); Monocyte# 0.69 X10^3/uL; Monocyte% 11.9 % (0-10); NRBC Flagged by Analyzer 0 % (0-5); Neutrophil # 3.44 X10^3/uL (2.7-7.7); Neutrophil % 59.5 % (47-70); Platelet Count 260 K/mm3 (150-450); RBC Distribution Width SD 44.5 fl (35.1-43.9); Red Blood Count 3.74 M/mm3 (4.6-6.2); White Blood Count 5.8 K/mm3 (4.4-11.0)
[2020-02-22 08:10] LABS: Microalbumin,Random Urine 16.5 mg/L (NO RANGE EST.); Microalbumin:Creatinine Ratio 14.6 mg/g CRE (<30 mg/g CRE)
[2020-02-22 08:29] LABS: ALB/GLOB Ratio 1.2 RATIO (0.9-2.4); AST(SGOT) 29 U/L (15-37); Alanine Aminotransfer ALT/SGPT 33 U/L (16-61); Albumin, Serum 3.8 g/dL (3.2-5.0); Alkaline Phosphatase 110 U/L (45-117); Anion Gap 9 (5-15); BUN 19 mg/dL (7-18); Bilirubin, Direct 0.16 mg/dL (0.00-0.30); Calcium,Total 8.6 mg/dL (8.5-10.1); Chloride 106 mmol/L (98-107); Cholesterol 150 mg/dL (200); Creatinine, Serum 1.27 mg/dL (0.70-1.30); EST Glomerular Filtration Rate 61 mL/min (>60); Est Glom Filt Rate - Afr Amer 73 mL/min (>60); Globulin 3.1 g/dL (2.2-4.2); Glucose 146 mg/dL (74-106); High Density Lipoprotein 30 mg/dL; Magnesium 1.9 mg/dL (1.6-2.6); Potassium 4.4 mmol/L (3.5-5.1); Protein, Total 6.9 g/dL (6.4-8.2); Sodium Level 137 mmol/L (136-145); Triglycerides 232 mg/dL; Uric Acid 8.9 mg/dL (3.5-7.2); Very Low Density Lipoprotein 46 mg/dL (5-40)
[2020-02-23 20:54] LABS: CMV by PCR Positive (Negative); Tacrolimus (FK506) 10.5 ng/mL (2.0-20.0)
[2020-02-27 14:22] LABS: CMV by PCR Positive (Negative); Tacrolimus (FK506) 10.6 ng/mL (2.0-20.0)
[2020-02-29 08:15] LABS: Absolute Neutrophil Count 3.3 X10^3/uL (2.0-7.7); Basophil# 0.05 X10^3/uL; Basophil% 0.8 % (0-1); Eosinophil# 0.56 X10^3/uL; Eosinophils% 9.2 % (0-5); Hematocrit 34.8 % (40-54); Hemoglobin 10.8 g/dL (13.0-16.5); Lymphocyte % 21.4 % (19-41); Mean Corpuscular Hgb 29.3 pg (27.0-32.0); Mean Corpuscular Volume 94.3 fL (80-94); Mean Platelet Vol. 10.3 fl (6.2-12.0); Monocyte% 13.2 % (0-10); NRBC Flagged by Analyzer 0 % (0-5); Neutrophil # 3.34 X10^3/uL (2.7-7.7); Neutrophil % 54.9 % (47-70); Platelet Count 238 K/mm3 (150-450); RBC Distribution Width CV 13.2 % (11.6-14.6); RBC Distribution Width SD 45.2 fl (35.1-43.9); Red Blood Count 3.69 M/mm3 (4.6-6.2); White Blood Count 6.1 K/mm3 (4.4-11.0)
[2020-02-29 08:46] LABS: Anion Gap 8 (5-15); BUN 20 mg/dL (7-18); Chloride 109 mmol/L (98-107); Creatinine, Serum 1.26 mg/dL (0.70-1.30); EST Glomerular Filtration Rate 61 mL/min (>60); Est Glom Filt Rate - Afr Amer 74 mL/min (>60); Glucose 175 mg/dL (74-106); Potassium 4.4 mmol/L (3.5-5.1); Sodium Level 140 mmol/L (136-145)
[2020-03-05 14:47] LABS: CMV by PCR Positive (Negative)
[2020-03-07 08:14] LABS: Absolute Lymphocyte Count 1.23 X10^3/uL (0.83-4.51); Basophil# 0.05 X10^3/uL; Basophil% 0.9 % (0-1); Eosinophil# 0.55 X10^3/uL; Hemoglobin 10.7 g/dL (13.0-16.5); Lymphocyte # 1.23 X10^3/ul (4.0); Lymphocyte % 22.4 % (19-41); Mean Corp Hgb Conc 30.6 g/dL (32-36); Mean Corpuscular Hgb 28.2 pg (27.0-32.0); Mean Corpuscular Volume 92.3 fL (80-94); Mean Platelet Vol. 10.1 fl (6.2-12.0); Monocyte# 0.66 X10^3/uL; NRBC Flagged by Analyzer 0 % (0-5); Neutrophil # 2.99 X10^3/uL (2.7-7.7); Neutrophil % 54.3 % (47-70); Platelet Count 232 K/mm3 (150-450); RBC Distribution Width CV 13.2 % (11.6-14.6); Red Blood Count 3.79 M/mm3 (4.6-6.2); White Blood Count 5.5 K/mm3 (4.4-11.0)
[2020-03-07 08:43] LABS: ALB/GLOB Ratio 1.2 RATIO (0.9-2.4); AST(SGOT) 27 U/L (15-37); Alanine Aminotransfer ALT/SGPT 34 U/L (16-61); Albumin, Serum 3.6 g/dL (3.2-5.0); Alkaline Phosphatase 111 U/L (45-117); Anion Gap 6 (5-15); BUN 16 mg/dL (7-18); BUN/Creat Ratio 13.3 RATIO (10-20); Calcium,Total 8.7 mg/dL (8.5-10.1); Chloride 111 mmol/L (98-107); EST Glomerular Filtration Rate 65 mL/min (>60); Est Glom Filt Rate - Afr Amer 78 mL/min (>60); Globulin 3.1 g/dL (2.2-4.2); Glucose 150 mg/dL (74-106); Potassium 3.9 mmol/L (3.5-5.1); Protein, Total 6.7 g/dL (6.4-8.2); Sodium Level 140 mmol/L (136-145)
[2020-03-15 18:16] LABS: CMV by PCR Positive (Negative); Tacrolimus (FK506) 8.8 ng/mL (2.0-20.0)
== END 2020-03-07 18:00 | disposition home or self-care (01) ==
LOC: LAB 07:09
PROVIDERS: PCP Family Medicine; Referring Provider Internal Medicine Nephrology; Visit Provider Internal Medicine Nephrology
DX: Z94.0 Kidney transplant status (principal); D89.9 Disorder involving the immune mechanism, unspecified; Z79.899 Other long term (current) drug therapy; D50.9 Iron deficiency anemia, unspecified
CPT/HCPCS: 36415; 80051; 80053; 80061; 80197; 82040; 82043; 82247; 82248; 82565; 82570; 82947; 83036; 83735; 84075; 84450; 84460; 84520; 84550; 85025; 87496

== ENCOUNTER 2020-04-04 07:10 | Outpatient (RCR) | payer OTHER, MEDICARE, SELFPAY ==
[2019-09-03 10:12] VITALS: BMI 30.8
[2020-03-15 08:15] LABS: Absolute Lymphocyte Count 1.47 X10^3/uL (0.83-4.51); Absolute Neutrophil Count 2.9 X10^3/uL (2.0-7.7); Basophil# 0.04 X10^3/uL; Basophil% 0.7 % (0-1); Eosinophil# 0.46 X10^3/uL; Eosinophils% 8.3 % (0-5); Hematocrit 35.3 % (40-54); Hemoglobin 10.7 g/dL (13.0-16.5); Lymphocyte # 1.47 X10^3/ul (4.0); Lymphocyte % 26.7 % (19-41); Mean Corp Hgb Conc 30.3 g/dL (32-36); Mean Corpuscular Hgb 28.2 pg (27.0-32.0); Mean Corpuscular Volume 92.9 fL (80-94); Mean Platelet Vol. 10.1 fl (6.2-12.0); Monocyte# 0.66 X10^3/uL; NRBC Flagged by Analyzer 0 % (0-5); Neutrophil # 2.86 X10^3/uL (2.7-7.7); Neutrophil % 51.9 % (47-70); Platelet Count 237 K/mm3 (150-450); RBC Distribution Width CV 13.6 % (11.6-14.6); RBC Distribution Width SD 46.4 fl (35.1-43.9); White Blood Count 5.5 K/mm3 (4.4-11.0)
[2020-03-15 08:58] LABS: Anion Gap 8 (5-15); BUN 15 mg/dL (7-18); Chloride 113 mmol/L (98-107); Creatinine, Serum 1.11 mg/dL (0.70-1.30); EST Glomerular Filtration Rate 71 mL/min (>60); Est Glom Filt Rate - Afr Amer 86 mL/min (>60); Glucose 146 mg/dL (74-106); Potassium 4.1 mmol/L (3.5-5.1); Sodium Level 143 mmol/L (136-145)
[2020-03-20 07:41] LABS: CMV by PCR Negative (Negative); Tacrolimus (FK506) 10.4 ng/mL (2.0-20.0)
[2020-03-21 08:26] LABS: ALB/GLOB Ratio 1.3 RATIO (0.9-2.4); AST(SGOT) 29 U/L (15-37); Alanine Aminotransfer ALT/SGPT 35 U/L (16-61); Albumin, Serum 3.9 g/dL (3.2-5.0); Alkaline Phosphatase 107 U/L (45-117); Anion Gap 7 (5-15); BUN 23 mg/dL (7-18); BUN/Creat Ratio 17.4 RATIO (10-20); Bilirubin, Direct 0.13 mg/dL (0.00-0.30); Calcium,Total 8.9 mg/dL (8.5-10.1); Chloride 112 mmol/L (98-107); Cholesterol 162 mg/dL (200); Creatinine, Serum 1.32 mg/dL (0.70-1.30); EST Glomerular Filtration Rate 58 mL/min (>60); Est Glom Filt Rate - Afr Amer 70 mL/min (>60); Globulin 2.9 g/dL (2.2-4.2); Glucose 131 mg/dL (74-106); Phosphorus 2.5 mg/dL (2.5-4.9); Potassium 4.1 mmol/L (3.5-5.1); Protein, Total 6.8 g/dL (6.4-8.2); Sodium Level 141 mmol/L (136-145); Triglycerides 164 mg/dL
[2020-03-21 08:50] LABS: Absolute Lymphocyte Count 1.54 X10^3/uL (0.83-4.51); Absolute Neutrophil Count 2.7 X10^3/uL (2.0-7.7); Basophil# 0.05 X10^3/uL; Basophil% 0.9 % (0-1); Eosinophil# 0.36 X10^3/uL; Eosinophils% 6.8 % (0-5); Hematocrit 36.2 % (40-54); Lymphocyte # 1.54 X10^3/ul (4.0); Lymphocyte % 28.9 % (19-41); Mean Corp Hgb Conc 30.4 g/dL (32-36); Mean Corpuscular Hgb 28.2 pg (27.0-32.0); Mean Corpuscular Volume 92.8 fL (80-94); Mean Platelet Vol. 10.1 fl (6.2-12.0); Monocyte# 0.63 X10^3/uL; Monocyte% 11.8 % (0-10); NRBC Flagged by Analyzer 0 % (0-5); Neutrophil # 2.72 X10^3/uL (2.7-7.7); Neutrophil % 51.2 % (47-70); Platelet Count 244 K/mm3 (150-450); RBC Distribution Width CV 13.7 % (11.6-14.6); RBC Distribution Width SD 46.3 fl (35.1-43.9); White Blood Count 5.3 K/mm3 (4.4-11.0)
[2020-03-25 12:54] LABS: CMV by PCR Negative (Negative); Tacrolimus (FK506) 7.7 ng/mL (2.0-20.0)
[2020-03-28 08:31] LABS: Anion Gap 5 (5-15); BUN 14 mg/dL (7-18); Chloride 110 mmol/L (98-107); Creatinine, Serum 1.23 mg/dL (0.70-1.30); EST Glomerular Filtration Rate 63 mL/min (>60); Est Glom Filt Rate - Afr Amer 76 mL/min (>60); Glucose 155 mg/dL (74-106); Potassium 4.3 mmol/L (3.5-5.1); Sodium Level 139 mmol/L (136-145)
[2020-03-30 05:13] LABS: Tacrolimus (FK506) 5.1 ng/mL (2.0-20.0)
[2020-04-04 07:30] LABS: Absolute Lymphocyte Count 1.29 X10^3/uL (0.83-4.51); Absolute Neutrophil Count 2.5 X10^3/uL (2.0-7.7); Basophil# 0.05 X10^3/uL; Basophil% 1.1 % (0-1); Eosinophil# 0.22 X10^3/uL; Eosinophils% 4.7 % (0-5); Hematocrit 35.8 % (40-54); Hemoglobin 10.9 g/dL (13.0-16.5); Lymphocyte # 1.29 X10^3/ul (4.0); Lymphocyte % 27.6 % (19-41); Mean Corp Hgb Conc 30.4 g/dL (32-36); Mean Corpuscular Hgb 27.9 pg (27.0-32.0); Mean Corpuscular Volume 91.6 fL (80-94); Mean Platelet Vol. 9.3 fl (6.2-12.0); Monocyte# 0.62 X10^3/uL; Monocyte% 13.2 % (0-10); NRBC Flagged by Analyzer 0 % (0-5); Neutrophil # 2.49 X10^3/uL (2.7-7.7); Neutrophil % 53.2 % (47-70); Platelet Count 220 K/mm3 (150-450); RBC Distribution Width CV 13.6 % (11.6-14.6); RBC Distribution Width SD 46.2 fl (35.1-43.9); Red Blood Count 3.91 M/mm3 (4.6-6.2); White Blood Count 4.7 K/mm3 (4.4-11.0)
[2020-04-04 07:46] LABS: AST(SGOT) 29 U/L (15-37); Alanine Aminotransfer ALT/SGPT 34 U/L (16-61); Albumin, Serum 3.8 g/dL (3.2-5.0); Alkaline Phosphatase 99 U/L (45-117); Anion Gap 5 (5-15); BUN 13 mg/dL (7-18); Chloride 111 mmol/L (98-107); Creatinine, Serum 1.18 mg/dL (0.70-1.30); EST Glomerular Filtration Rate 66 mL/min (>60); Est Glom Filt Rate - Afr Amer 80 mL/min (>60); Glucose 128 mg/dL (74-106); Potassium 4.2 mmol/L (3.5-5.1); Sodium Level 140 mmol/L (136-145)
[2020-04-06 09:36] LABS: CMV by PCR Negative (Negative); Tacrolimus (FK506) 6.7 ng/mL (2.0-20.0)
== END 2020-04-04 18:00 | disposition home or self-care (01) ==
LOC: LAB 07:10
PROVIDERS: PCP Family Medicine; Referring Provider Internal Medicine Nephrology; Visit Provider Internal Medicine Nephrology
DX: Z94.0 Kidney transplant status (principal); D89.9 Disorder involving the immune mechanism, unspecified; D50.9 Iron deficiency anemia, unspecified; Z79.899 Other long term (current) drug therapy
CPT/HCPCS: 36415; 80051; 80053; 80197; 82040; 82247; 82248; 82465; 82565; 82947; 83735; 84075; 84100; 84450; 84460; 84478; 84520; 84550; 85025; 87496

== ENCOUNTER 2020-04-27 07:08 | Outpatient (RCR) | payer OTHER, MEDICARE, SELFPAY ==
[2019-09-03 10:12] VITALS: BMI 30.8
[2020-04-12 07:45] LABS: Absolute Lymphocyte Count 1.41 X10^3/uL (0.83-4.51); Absolute Neutrophil Count 2.9 X10^3/uL (2.0-7.7); Basophil# 0.04 X10^3/uL; Basophil% 0.8 % (0-1); Eosinophil# 0.18 X10^3/uL; Eosinophils% 3.4 % (0-5); Hematocrit 35.5 % (40-54); Hemoglobin 10.8 g/dL (13.0-16.5); Lymphocyte # 1.41 X10^3/ul (4.0); Mean Corp Hgb Conc 30.4 g/dL (32-36); Mean Corpuscular Hgb 28.2 pg (27.0-32.0); Mean Corpuscular Volume 92.7 fL (80-94); Mean Platelet Vol. 9.7 fl (6.2-12.0); Monocyte# 0.65 X10^3/uL; Monocyte% 12.4 % (0-10); NRBC Flagged by Analyzer 0 % (0-5); Neutrophil # 2.94 X10^3/uL (2.7-7.7); Neutrophil % 56.2 % (47-70); Platelet Count 234 K/mm3 (150-450); RBC Distribution Width CV 13.7 % (11.6-14.6); RBC Distribution Width SD 46.1 fl (35.1-43.9); Red Blood Count 3.83 M/mm3 (4.6-6.2); White Blood Count 5.2 K/mm3 (4.4-11.0)
[2020-04-12 07:59] LABS: Hemoglobin A1c 5.6 % (3.8-5.6)
[2020-04-12 08:26] LABS: ALB/GLOB Ratio 1.4 RATIO (0.9-2.4); AST(SGOT) 31 U/L (15-37); Alanine Aminotransfer ALT/SGPT 35 U/L (16-61); Alkaline Phosphatase 90 U/L (45-117); Anion Gap 6 (5-15); BUN 15 mg/dL (7-18); Bilirubin, Direct 0.14 mg/dL (0.00-0.30); Calcium,Total 8.7 mg/dL (8.5-10.1); Chloride 108 mmol/L (98-107); Cholesterol 160 mg/dL (200); Creatinine, Serum 1.25 mg/dL (0.70-1.30); EST Glomerular Filtration Rate 62 mL/min (>60); Est Glom Filt Rate - Afr Amer 75 mL/min (>60); Ferritin 1166 ng/mL (26-388); Globulin 2.9 g/dL (2.2-4.2); Glucose 134 mg/dL (74-106); High Density Lipoprotein 41 mg/dL; Iron 86 ug/dL (65-175); Iron Binding Capacity,Total 252 ug/dL (250-450); Phosphorus 2.6 mg/dL (2.5-4.9); Potassium 4.4 mmol/L (3.5-5.1); Protein, Total 6.9 g/dL (6.4-8.2); Sodium Level 138 mmol/L (136-145); Triglycerides 204 mg/dL; Uric Acid 8.4 mg/dL (3.5-7.2); Very Low Density Lipoprotein 41 mg/dL (5-40)
[2020-04-15 13:52] LABS: CMV by PCR Negative (Negative); Transferrin 191 mg/dL (177-329)
[2020-04-27 08:15] LABS: Absolute Lymphocyte Count 1.32 X10^3/uL (0.83-4.51); Absolute Neutrophil Count 3.2 X10^3/uL (2.0-7.7); Basophil# 0.05 X10^3/uL; Basophil% 0.9 % (0-1); Eosinophil# 0.26 X10^3/uL; Eosinophils% 4.7 % (0-5); Hematocrit 37.9 % (40-54); Hemoglobin 11.5 g/dL (13.0-16.5); Lymphocyte # 1.32 X10^3/ul (4.0); Lymphocyte % 24.1 % (19-41); Mean Corp Hgb Conc 30.3 g/dL (32-36); Mean Corpuscular Hgb 28.4 pg (27.0-32.0); Mean Corpuscular Volume 93.6 fL (80-94); Mean Platelet Vol. 9.8 fl (6.2-12.0); Monocyte# 0.63 X10^3/uL; Monocyte% 11.5 % (0-10); NRBC Flagged by Analyzer 0 % (0-5); Neutrophil # 3.21 X10^3/uL (2.7-7.7); Neutrophil % 58.6 % (47-70); Platelet Count 252 K/mm3 (150-450); RBC Distribution Width CV 13.5 % (11.6-14.6); Red Blood Count 4.05 M/mm3 (4.6-6.2); White Blood Count 5.5 K/mm3 (4.4-11.0)
[2020-04-27 08:43] LABS: Anion Gap 6 (5-15); BUN 14 mg/dL (7-18); Chloride 112 mmol/L (98-107); Creatinine, Serum 1.13 mg/dL (0.70-1.30); EST Glomerular Filtration Rate 69 mL/min (>60); Est Glom Filt Rate - Afr Amer 84 mL/min (>60); Glucose 118 mg/dL (74-106); Potassium 4.1 mmol/L (3.5-5.1); Sodium Level 141 mmol/L (136-145)
[2020-04-29 15:45] LABS: Tacrolimus (FK506) 6.2 ng/mL (2.0-20.0)
== END 2020-04-27 18:00 | disposition home or self-care (01) ==
LOC: LAB 07:08
PROVIDERS: PCP Family Medicine; Referring Provider Internal Medicine Nephrology; Visit Provider Internal Medicine Nephrology
DX: Z94.0 Kidney transplant status (principal); D89.9 Disorder involving the immune mechanism, unspecified; D50.9 Iron deficiency anemia, unspecified; Z79.899 Other long term (current) drug therapy
CPT/HCPCS: 36415; 80051; 80053; 80061; 80197; 82248; 82565; 82728; 82947; 83036; 83540; 83550; 83735; 84100; 84466; 84520; 84550; 85025; 87496

== ENCOUNTER 2020-05-25 07:09 | Outpatient (RCR) | payer OTHER, MEDICARE, SELFPAY ==
[2019-09-03 10:12] VITALS: BMI 30.8
[2020-05-11 08:28] LABS: Absolute Neutrophil Count 3.5 X10^3/uL (2.0-7.7); Basophil# 0.05 X10^3/uL; Basophil% 0.8 % (0-1); Eosinophil# 0.25 X10^3/uL; Eosinophils% 4.1 % (0-5); Hematocrit 36.4 % (40-54); Lymphocyte % 24.5 % (19-41); Mean Corp Hgb Conc 30.2 g/dL (32-36); Mean Corpuscular Hgb 28.2 pg (27.0-32.0); Mean Corpuscular Volume 93.3 fL (80-94); Mean Platelet Vol. 9.9 fl (6.2-12.0); Monocyte# 0.75 X10^3/uL; Monocyte% 12.3 % (0-10); NRBC Flagged by Analyzer 0 % (0-5); Neutrophil # 3.54 X10^3/uL (2.7-7.7); Platelet Count 231 K/mm3 (150-450); RBC Distribution Width CV 13.2 % (11.6-14.6); RBC Distribution Width SD 45.2 fl (35.1-43.9); White Blood Count 6.1 K/mm3 (4.4-11.0)
[2020-05-11 09:17] LABS: ALB/GLOB Ratio 1.4 RATIO (0.9-2.4); AST(SGOT) 23 U/L (15-37); Alanine Aminotransfer ALT/SGPT 32 U/L (16-61); Alkaline Phosphatase 93 U/L (45-117); Anion Gap 5 (5-15); BUN 20 mg/dL (7-18); BUN/Creat Ratio 15.9 RATIO (10-20); Calcium,Total 8.9 mg/dL (8.5-10.1); Chloride 111 mmol/L (98-107); Creatinine, Serum 1.26 mg/dL (0.70-1.30); EST Glomerular Filtration Rate 61 mL/min (>60); Est Glom Filt Rate - Afr Amer 74 mL/min (>60); Globulin 2.9 g/dL (2.2-4.2); Glucose 147 mg/dL (74-106); Magnesium 1.9 mg/dL (1.6-2.6); Phosphorus 2.8 mg/dL (2.5-4.9); Potassium 4.3 mmol/L (3.5-5.1); Protein, Total 6.9 g/dL (6.4-8.2); Sodium Level 140 mmol/L (136-145); Uric Acid 8.1 mg/dL (3.5-7.2)
[2020-05-15 07:54] LABS: CMV by PCR Negative (Negative); Tacrolimus (FK506) 7.6 ng/mL (2.0-20.0)
[2020-05-25 07:54] LABS: Absolute Lymphocyte Count 1.53 X10^3/uL (0.83-4.51); Absolute Neutrophil Count 3.2 X10^3/uL (2.0-7.7); Basophil# 0.04 X10^3/uL; Basophil% 0.7 % (0-1); Eosinophil# 0.22 X10^3/uL; Eosinophils% 3.9 % (0-5); Hematocrit 36.6 % (40-54); Hemoglobin 11.1 g/dL (13.0-16.5); Lymphocyte # 1.53 X10^3/ul (4.0); Mean Corp Hgb Conc 30.3 g/dL (32-36); Mean Corpuscular Hgb 28.5 pg (27.0-32.0); Mean Corpuscular Volume 93.8 fL (80-94); Mean Platelet Vol. 9.7 fl (6.2-12.0); Monocyte# 0.65 X10^3/uL; Monocyte% 11.5 % (0-10); NRBC Flagged by Analyzer 0 % (0-5); Neutrophil # 3.19 X10^3/uL (2.7-7.7); Neutrophil % 56.4 % (47-70); Platelet Count 245 K/mm3 (150-450); RBC Distribution Width CV 13.5 % (11.6-14.6); RBC Distribution Width SD 46.4 fl (35.1-43.9); White Blood Count 5.7 K/mm3 (4.4-11.0)
[2020-05-25 08:12] LABS: Hemoglobin A1c 5.6 % (3.8-5.6)
[2020-05-25 08:27] LABS: ALB/GLOB Ratio 1.4 RATIO (0.9-2.4); AST(SGOT) 22 U/L (15-37); Alanine Aminotransfer ALT/SGPT 31 U/L (16-61); Albumin, Serum 4.1 g/dL (3.2-5.0); Alkaline Phosphatase 91 U/L (45-117); Anion Gap 4 (5-15); BUN 15 mg/dL (7-18); BUN/Creat Ratio 12.3 RATIO (10-20); Calcium,Total 8.9 mg/dL (8.5-10.1); Chloride 113 mmol/L (98-107); Creatinine, Serum 1.22 mg/dL (0.70-1.30); EST Glomerular Filtration Rate 63 mL/min (>60); Est Glom Filt Rate - Afr Amer 77 mL/min (>60); Glucose 126 mg/dL (74-106); Potassium 4.1 mmol/L (3.5-5.1); Protein, Total 7.1 g/dL (6.4-8.2); Sodium Level 140 mmol/L (136-145)
[2020-05-27 16:45] LABS: Tacrolimus (FK506) 6.5 ng/mL (2.0-20.0)
== END 2020-05-25 18:00 | disposition home or self-care (01) ==
LOC: LAB 07:09
PROVIDERS: PCP Family Medicine; Referring Provider Internal Medicine Nephrology; Visit Provider Internal Medicine Nephrology
DX: Z94.0 Kidney transplant status (principal); D89.9 Disorder involving the immune mechanism, unspecified; D50.9 Iron deficiency anemia, unspecified; Z79.899 Other long term (current) drug therapy
CPT/HCPCS: 36415; 80053; 80197; 83036; 83735; 84100; 84550; 85025; 87496

== ENCOUNTER 2020-07-06 07:08 | Outpatient (RCR) | payer OTHER, MEDICARE, SELFPAY ==
[2019-09-03 10:12] VITALS: BMI 30.8
[2020-06-08 07:27] LABS: Absolute Lymphocyte Count 1.44 X10^3/uL (0.83-4.51); Absolute Neutrophil Count 2.3 X10^3/uL (2.0-7.7); Basophil# 0.02 X10^3/uL; Basophil% 0.4 % (0-1); Eosinophil# 0.16 X10^3/uL; Eosinophils% 3.5 % (0-5); Hematocrit 36.6 % (40-54); Hemoglobin 11.4 g/dL (13.0-16.5); Lymphocyte # 1.44 X10^3/ul (4.0); Lymphocyte % 31.5 % (19-41); Mean Corp Hgb Conc 31.1 g/dL (32-36); Mean Corpuscular Hgb 29.1 pg (27.0-32.0); Mean Corpuscular Volume 93.4 fL (80-94); Mean Platelet Vol. 9.3 fl (6.2-12.0); Monocyte% 13.1 % (0-10); NRBC Flagged by Analyzer 0 % (0-5); Neutrophil # 2.34 X10^3/uL (2.7-7.7); Neutrophil % 51.3 % (47-70); Platelet Count 232 K/mm3 (150-450); RBC Distribution Width CV 13.2 % (11.6-14.6); RBC Distribution Width SD 44.8 fl (35.1-43.9); Red Blood Count 3.92 M/mm3 (4.6-6.2); White Blood Count 4.6 K/mm3 (4.4-11.0)
[2020-06-08 08:05] LABS: ALB/GLOB Ratio 1.4 RATIO (0.9-2.4); AST(SGOT) 21 U/L (15-37); Alanine Aminotransfer ALT/SGPT 28 U/L (16-61); Albumin, Serum 4.1 g/dL (3.2-5.0); Alkaline Phosphatase 86 U/L (45-117); Anion Gap 4 (5-15); BUN 14 mg/dL (7-18); Calcium,Total 8.8 mg/dL (8.5-10.1); Chloride 112 mmol/L (98-107); Creatinine, Serum 1.08 mg/dL (0.70-1.30); EST Glomerular Filtration Rate 73 mL/min (>60); Est Glom Filt Rate - Afr Amer 88 mL/min (>60); Globulin 2.9 g/dL (2.2-4.2); Glucose 50 mg/dL (74-106); Magnesium 2.3 mg/dL (1.6-2.6); Phosphorus 2.2 mg/dL (2.5-4.9); Potassium 3.9 mmol/L (3.5-5.1); Sodium Level 142 mmol/L (136-145); Uric Acid 7.4 mg/dL (3.5-7.2)
[2020-06-17 10:29] LABS: CMV by PCR Negative (Negative); Tacrolimus (FK506) 6.2 ng/mL (2.0-20.0)
[2020-06-22 07:50] LABS: Absolute Lymphocyte Count 1.29 X10^3/uL (0.83-4.51); Absolute Neutrophil Count 3.2 X10^3/uL (2.0-7.7); Basophil# 0.04 X10^3/uL; Basophil% 0.8 % (0-1); Eosinophil# 0.14 X10^3/uL; Eosinophils% 2.7 % (0-5); Hemoglobin 11.2 g/dL (13.0-16.5); Lymphocyte # 1.29 X10^3/ul (4.0); Lymphocyte % 24.6 % (19-41); Mean Corp Hgb Conc 30.3 g/dL (32-36); Mean Corpuscular Volume 92.5 fL (80-94); Monocyte# 0.56 X10^3/uL; Monocyte% 10.7 % (0-10); NRBC Flagged by Analyzer 0 % (0-5); Neutrophil % 60.8 % (47-70); Platelet Count 255 K/mm3 (150-450); RBC Distribution Width CV 13.3 % (11.6-14.6); RBC Distribution Width SD 44.9 fl (35.1-43.9); White Blood Count 5.3 K/mm3 (4.4-11.0)
[2020-06-22 08:06] LABS: Anion Gap 5 (5-15); BUN 14 mg/dL (7-18); BUN/Creat Ratio 11.2 RATIO (10-20); Chloride 111 mmol/L (98-107); Creatinine, Serum 1.25 mg/dL (0.70-1.30); EST Glomerular Filtration Rate 62 mL/min (>60); Est Glom Filt Rate - Afr Amer 75 mL/min (>60); Glucose 120 mg/dL (74-106); Potassium 4.3 mmol/L (3.5-5.1); Sodium Level 141 mmol/L (136-145)
[2020-07-06 07:30] LABS: Absolute Lymphocyte Count 1.55 X10^3/uL (0.83-4.51); Absolute Neutrophil Count 3.6 X10^3/uL (2.0-7.7); Basophil# 0.04 X10^3/uL; Basophil% 0.7 % (0-1); Eosinophils% 3.3 % (0-5); Hematocrit 37.3 % (40-54); Hemoglobin 11.3 g/dL (13.0-16.5); Lymphocyte # 1.55 X10^3/ul (4.0); Lymphocyte % 25.5 % (19-41); Mean Corp Hgb Conc 30.3 g/dL (32-36); Mean Corpuscular Hgb 28.4 pg (27.0-32.0); Mean Corpuscular Volume 93.7 fL (80-94); Mean Platelet Vol. 9.9 fl (6.2-12.0); Monocyte% 11.5 % (0-10); NRBC Flagged by Analyzer 0 % (0-5); Neutrophil # 3.58 X10^3/uL (2.7-7.7); Neutrophil % 58.7 % (47-70); Platelet Count 250 K/mm3 (150-450); RBC Distribution Width CV 13.6 % (11.6-14.6); RBC Distribution Width SD 45.9 fl (35.1-43.9); Red Blood Count 3.98 M/mm3 (4.6-6.2); White Blood Count 6.1 K/mm3 (4.4-11.0)
[2020-07-06 07:54] LABS: ALB/GLOB Ratio 1.5 RATIO (0.9-2.4); AST(SGOT) 22 U/L (15-37); Alanine Aminotransfer ALT/SGPT 28 U/L (16-61); Albumin, Serum 4.1 g/dL (3.2-5.0); Alkaline Phosphatase 82 U/L (45-117); Anion Gap 5 (5-15); BUN 11 mg/dL (7-18); BUN/Creat Ratio 9.9 RATIO (10-20); Calcium,Total 8.6 mg/dL (8.5-10.1); Chloride 112 mmol/L (98-107); Creatinine, Serum 1.11 mg/dL (0.70-1.30); EST Glomerular Filtration Rate 71 mL/min (>60); Est Glom Filt Rate - Afr Amer 86 mL/min (>60); Globulin 2.7 g/dL (2.2-4.2); Glucose 53 mg/dL (74-106); Magnesium 2.2 mg/dL (1.6-2.6); Potassium 3.8 mmol/L (3.5-5.1); Protein, Total 6.8 g/dL (6.4-8.2); Sodium Level 143 mmol/L (136-145); Uric Acid 7.5 mg/dL (3.5-7.2)
[2020-07-12 14:03] LABS: CMV by PCR Negative (Negative); Tacrolimus (FK506) 5.4 ng/mL (2.0-20.0)
== END 2020-07-06 18:00 | disposition home or self-care (01) ==
LOC: LAB 07:08
PROVIDERS: PCP Family Medicine; Referring Provider Internal Medicine Nephrology; Visit Provider Internal Medicine Nephrology
DX: D89.9 Disorder involving the immune mechanism, unspecified (principal); Z94.0 Kidney transplant status; D50.9 Iron deficiency anemia, unspecified; Z79.899 Other long term (current) drug therapy
CPT/HCPCS: 36415; 80048; 80053; 80197; 83735; 84100; 84550; 85025; 87496

== ENCOUNTER 2020-08-03 07:12 | Outpatient (RCR) | payer MEDICARE, OTHER, SELFPAY ==
[2019-09-03 10:12] VITALS: BMI 30.8
[2020-07-20 08:28] LABS: Absolute Lymphocyte Count 1.39 X10^3/uL (0.83-4.51); Absolute Neutrophil Count 4.2 X10^3/uL (2.0-7.7); Basophil# 0.04 X10^3/uL; Basophil% 0.6 % (0-1); Eosinophil# 0.17 X10^3/uL; Eosinophils% 2.6 % (0-5); Hematocrit 37.1 % (40-54); Hemoglobin 11.4 g/dL (13.0-16.5); Lymphocyte # 1.39 X10^3/ul (4.0); Lymphocyte % 21.7 % (19-41); Mean Corp Hgb Conc 30.7 g/dL (32-36); Mean Corpuscular Hgb 28.5 pg (27.0-32.0); Mean Corpuscular Volume 92.8 fL (80-94); Monocyte# 0.57 X10^3/uL; Monocyte% 8.9 % (0-10); NRBC Flagged by Analyzer 0 % (0-5); Neutrophil # 4.23 X10^3/uL (2.7-7.7); Neutrophil % 65.9 % (47-70); Platelet Count 267 K/mm3 (150-450); RBC Distribution Width CV 13.5 % (11.6-14.6); White Blood Count 6.4 K/mm3 (4.4-11.0)
[2020-07-20 08:57] LABS: Anion Gap 7 (5-15); BUN 14 mg/dL (7-18); Chloride 110 mmol/L (98-107); Creatinine, Serum 1.28 mg/dL (0.70-1.30); EST Glomerular Filtration Rate 60 mL/min (>60); Est Glom Filt Rate - Afr Amer 73 mL/min (>60); Glucose 151 mg/dL (74-106); Potassium 4.2 mmol/L (3.5-5.1); Sodium Level 141 mmol/L (136-145)
[2020-07-24 07:22] LABS: Tacrolimus (FK506) 6.7 ng/mL (2.0-20.0)
[2020-08-03 07:47] LABS: Absolute Lymphocyte Count 1.34 X10^3/uL (0.83-4.51); Absolute Neutrophil Count 3.3 X10^3/uL (2.0-7.7); Basophil# 0.04 X10^3/uL; Basophil% 0.7 % (0-1); Eosinophil# 0.16 X10^3/uL; Eosinophils% 2.9 % (0-5); Hematocrit 37.8 % (40-54); Hemoglobin 11.9 g/dL (13.0-16.5); Lymphocyte # 1.34 X10^3/ul (4.0); Lymphocyte % 24.2 % (19-41); Mean Corp Hgb Conc 31.5 g/dL (32-36); Mean Platelet Vol. 9.9 fl (6.2-12.0); Monocyte# 0.62 X10^3/uL; Monocyte% 11.2 % (0-10); NRBC Flagged by Analyzer 0 % (0-5); Neutrophil # 3.34 X10^3/uL (2.7-7.7); Neutrophil % 60.5 % (47-70); Platelet Count 227 K/mm3 (150-450); RBC Distribution Width CV 13.2 % (11.6-14.6); RBC Distribution Width SD 45.1 fl (35.1-43.9); Red Blood Count 4.11 M/mm3 (4.6-6.2); White Blood Count 5.5 K/mm3 (4.4-11.0)
[2020-08-03 08:11] LABS: Hemoglobin A1c 5.7 % (3.8-5.6)
[2020-08-03 08:29] LABS: ALB/GLOB Ratio 1.4 RATIO (0.9-2.4); AST(SGOT) 23 U/L (15-37); Alanine Aminotransfer ALT/SGPT 28 U/L (16-61); Alkaline Phosphatase 77 U/L (45-117); Anion Gap 6 (5-15); BUN 14 mg/dL (7-18); BUN/Creat Ratio 12.1 RATIO (10-20); Calcium,Total 8.7 mg/dL (8.5-10.1); Chloride 111 mmol/L (98-107); Cholesterol 161 mg/dL (200); Creatinine, Serum 1.16 mg/dL (0.70-1.30); EST Glomerular Filtration Rate 67 mL/min (>60); Est Glom Filt Rate - Afr Amer 81 mL/min (>60); Ferritin 848 ng/mL (26-388); Globulin 2.8 g/dL (2.2-4.2); Glucose 97 mg/dL (74-106); High Density Lipoprotein 41 mg/dL; Iron 90 ug/dL (65-175); Iron Binding Capacity,Total 251 ug/dL (250-450); Protein, Total 6.8 g/dL (6.4-8.2); Sodium Level 141 mmol/L (136-145); Triglycerides 176 mg/dL; Uric Acid 7.2 mg/dL (3.5-7.2); Very Low Density Lipoprotein 35 mg/dL (5-40)
[2020-08-08 13:20] LABS: CMV by PCR Negative (Negative); Tacrolimus (FK506) 6.9 ng/mL (2.0-20.0); Transferrin 186 mg/dL (177-329)
== END 2020-08-03 18:00 | disposition home or self-care (01) ==
LOC: LAB 07:12
PROVIDERS: PCP Family Medicine; Referring Provider Internal Medicine Nephrology; Visit Provider Internal Medicine Nephrology
DX: Z79.899 Other long term (current) drug therapy (principal); D89.9 Disorder involving the immune mechanism, unspecified; D50.9 Iron deficiency anemia, unspecified; Z94.0 Kidney transplant status
CPT/HCPCS: 36415; 80051; 80053; 80061; 80197; 82565; 82728; 82947; 83036; 83540; 83550; 83735; 84100; 84466; 84520; 84550; 85025; 87496

== ENCOUNTER 2020-08-31 07:01 | Outpatient (RCR) | payer MEDICARE, OTHER, SELFPAY ==
[2019-09-03 10:12] VITALS: BMI 30.8
[2020-08-17 07:20] LABS: Absolute Lymphocyte Count 1.52 X10^3/uL (0.83-4.51); Absolute Neutrophil Count 3.5 X10^3/uL (2.0-7.7); Basophil# 0.05 X10^3/uL; Basophil% 0.8 % (0-1); Eosinophil# 0.18 X10^3/uL; Hemoglobin 11.7 g/dL (13.0-16.5); Lymphocyte # 1.52 X10^3/ul (4.0); Lymphocyte % 25.5 % (19-41); Mean Corp Hgb Conc 30.8 g/dL (32-36); Mean Corpuscular Hgb 28.5 pg (27.0-32.0); Mean Corpuscular Volume 92.5 fL (80-94); Mean Platelet Vol. 9.7 fl (6.2-12.0); Monocyte# 0.64 X10^3/uL; Monocyte% 10.8 % (0-10); NRBC Flagged by Analyzer 0 % (0-5); Neutrophil # 3.54 X10^3/uL (2.7-7.7); Neutrophil % 59.6 % (47-70); Platelet Count 242 K/mm3 (150-450); RBC Distribution Width CV 13.2 % (11.6-14.6); RBC Distribution Width SD 44.8 fl (35.1-43.9); Red Blood Count 4.11 M/mm3 (4.6-6.2)
[2020-08-17 07:45] LABS: Anion Gap 3 (5-15); BUN 18 mg/dL (7-18); Chloride 115 mmol/L (98-107); EST Glomerular Filtration Rate 65 mL/min (>60); Est Glom Filt Rate - Afr Amer 78 mL/min (>60); Glucose 79 mg/dL (74-106); Potassium 3.9 mmol/L (3.5-5.1); Sodium Level 144 mmol/L (136-145)
[2020-08-20 21:09] LABS: Tacrolimus (FK506) 6.1 ng/mL (2.0-20.0)
[2020-08-31 07:31] LABS: Absolute Lymphocyte Count 1.42 X10^3/uL (0.83-4.51); Absolute Neutrophil Count 3.4 X10^3/uL (2.0-7.7); Basophil# 0.04 X10^3/uL; Basophil% 0.7 % (0-1); Eosinophil# 0.15 X10^3/uL; Eosinophils% 2.7 % (0-5); Hematocrit 37.1 % (40-54); Hemoglobin 11.6 g/dL (13.0-16.5); Lymphocyte # 1.42 X10^3/ul (4.0); Lymphocyte % 25.4 % (19-41); Mean Corp Hgb Conc 31.3 g/dL (32-36); Mean Corpuscular Volume 92.8 fL (80-94); Mean Platelet Vol. 10.1 fl (6.2-12.0); Monocyte# 0.59 X10^3/uL; Monocyte% 10.6 % (0-10); NRBC Flagged by Analyzer 0 % (0-5); Neutrophil # 3.35 X10^3/uL (2.7-7.7); Neutrophil % 60.1 % (47-70); Platelet Count 244 K/mm3 (150-450); RBC Distribution Width CV 13.3 % (11.6-14.6); RBC Distribution Width SD 45.3 fl (35.1-43.9); White Blood Count 5.6 K/mm3 (4.4-11.0)
[2020-08-31 08:03] LABS: ALB/GLOB Ratio 1.5 RATIO (0.9-2.4); AST(SGOT) 20 U/L (15-37); Alanine Aminotransfer ALT/SGPT 25 U/L (16-61); Albumin, Serum 4.1 g/dL (3.2-5.0); Alkaline Phosphatase 79 U/L (45-117); Anion Gap 8 (5-15); BUN 18 mg/dL (7-18); BUN/Creat Ratio 16.7 RATIO (10-20); Chloride 110 mmol/L (98-107); Creatinine, Serum 1.08 mg/dL (0.70-1.30); EST Glomerular Filtration Rate 73 mL/min (>60); Est Glom Filt Rate - Afr Amer 88 mL/min (>60); Globulin 2.8 g/dL (2.2-4.2); Glucose 96 mg/dL (74-106); Phosphorus 2.6 mg/dL (2.5-4.9); Potassium 3.9 mmol/L (3.5-5.1); Protein, Total 6.9 g/dL (6.4-8.2); Sodium Level 142 mmol/L (136-145); Uric Acid 6.5 mg/dL (3.5-7.2)
[2020-09-03 09:19] LABS: Tacrolimus (FK506) 5.5 ng/mL (2.0-20.0)
== END 2020-08-31 18:00 | disposition home or self-care (01) ==
LOC: LAB 07:01
PROVIDERS: PCP Family Medicine; Referring Provider Internal Medicine Nephrology; Visit Provider Internal Medicine Nephrology
DX: Z94.0 Kidney transplant status (principal); D89.9 Disorder involving the immune mechanism, unspecified; D50.9 Iron deficiency anemia, unspecified; Z79.899 Other long term (current) drug therapy
CPT/HCPCS: 36415; 80051; 80053; 80197; 82565; 82947; 83735; 84100; 84520; 84550; 85025

== ENCOUNTER 2020-09-12 16:40 | Outpatient (RCR) | payer MEDICARE, OTHER, SELFPAY ==
[2019-09-03 10:12] VITALS: BMI 30.8
[2020-09-12] MEDS: COVID-19 VACC, MRNA(PFIZER)/PF 30 MCG/0.3 ML SYRINGE IM (12:55)
[2020-10-04] MEDS: COVID-19 VACC, MRNA(PFIZER)/PF 30 MCG/0.3 ML SYRINGE IM (10:18)
== END 2020-12-13 23:59 ==
LOC: IMMUN 16:40
PROVIDERS: PCP Family Medicine; Referring Provider Family Medicine; Visit Provider Family Medicine
DX: Z23 Encounter for immunization (principal)
CPT/HCPCS: 0001A; 0002A; 91300

== ENCOUNTER 2020-09-28 07:03 | Outpatient (RCR) | payer MEDICARE, OTHER, SELFPAY ==
[2019-09-03 10:12] VITALS: BMI 30.8
[2020-09-14 07:23] LABS: Absolute Lymphocyte Count 1.39 X10^3/uL (0.83-4.51); Absolute Neutrophil Count 3.4 X10^3/uL (2.0-7.7); Basophil# 0.03 X10^3/uL; Basophil% 0.5 % (0-1); Eosinophil# 0.14 X10^3/uL; Eosinophils% 2.5 % (0-5); Hematocrit 37.4 % (40-54); Hemoglobin 11.2 g/dL (13.0-16.5); Lymphocyte # 1.39 X10^3/ul (4.0); Mean Corp Hgb Conc 29.9 g/dL (32-36); Mean Corpuscular Hgb 28.4 pg (27.0-32.0); Mean Corpuscular Volume 94.7 fL (80-94); Mean Platelet Vol. 9.9 fl (6.2-12.0); Monocyte# 0.59 X10^3/uL; Monocyte% 10.6 % (0-10); NRBC Flagged by Analyzer 0 % (0-5); Neutrophil # 3.39 X10^3/uL (2.7-7.7); Platelet Count 241 K/mm3 (150-450); RBC Distribution Width CV 13.4 % (11.6-14.6); RBC Distribution Width SD 46.9 fl (35.1-43.9); Red Blood Count 3.95 M/mm3 (4.6-6.2); White Blood Count 5.6 K/mm3 (4.4-11.0)
[2020-09-14 08:15] LABS: Anion Gap 6 (5-15); BUN 15 mg/dL (7-18); Chloride 110 mmol/L (98-107); Creatinine, Serum 1.18 mg/dL (0.70-1.30); EST Glomerular Filtration Rate 66 mL/min (>60); Est Glom Filt Rate - Afr Amer 80 mL/min (>60); Glucose 154 mg/dL (74-106); Potassium 4.1 mmol/L (3.5-5.1); Sodium Level 142 mmol/L (136-145)
[2020-09-28 07:29] LABS: Absolute Lymphocyte Count 1.56 X10^3/uL (0.83-4.51); Absolute Neutrophil Count 3.8 X10^3/uL (2.0-7.7); Basophil# 0.04 X10^3/uL; Basophil% 0.6 % (0-1); Eosinophil# 0.15 X10^3/uL; Eosinophils% 2.4 % (0-5); Hematocrit 35.6 % (40-54); Hemoglobin 11.3 g/dL (13.0-16.5); Lymphocyte # 1.56 X10^3/ul (4.0); Lymphocyte % 25.1 % (19-41); Mean Corp Hgb Conc 31.7 g/dL (32-36); Mean Corpuscular Volume 94.4 fL (80-94); Monocyte# 0.62 X10^3/uL; NRBC Flagged by Analyzer 0 % (0-5); Neutrophil # 3.83 X10^3/uL (2.7-7.7); Neutrophil % 61.6 % (47-70); Platelet Count 234 K/mm3 (150-450); RBC Distribution Width CV 13.5 % (11.6-14.6); RBC Distribution Width SD 46.3 fl (35.1-43.9); Red Blood Count 3.77 M/mm3 (4.6-6.2); White Blood Count 6.2 K/mm3 (4.4-11.0)
[2020-09-28 08:10] LABS: Anion Gap 6 (5-15); BUN 19 mg/dL (7-18); Chloride 109 mmol/L (98-107); Creatinine, Serum 1.23 mg/dL (0.70-1.30); EST Glomerular Filtration Rate 63 mL/min (>60); Est Glom Filt Rate - Afr Amer 76 mL/min (>60); Glucose 166 mg/dL (74-106); Potassium 4.1 mmol/L (3.5-5.1); Sodium Level 138 mmol/L (136-145)
[2020-09-30 20:36] LABS: Tacrolimus (FK506) 6.8 ng/mL (2.0-20.0)
== END 2020-09-28 18:00 | disposition home or self-care (01) ==
LOC: LAB 07:03
PROVIDERS: PCP Family Medicine; Referring Provider Internal Medicine Nephrology; Visit Provider Internal Medicine Nephrology
DX: D89.9 Disorder involving the immune mechanism, unspecified (principal); D50.9 Iron deficiency anemia, unspecified; Z94.0 Kidney transplant status; Z79.899 Other long term (current) drug therapy
CPT/HCPCS: 36415; 80051; 80197; 82565; 82947; 84520; 85025

== ENCOUNTER 2020-10-12 07:01 | Outpatient (RCR) | payer MEDICARE, OTHER, SELFPAY ==
[2019-09-03 10:12] VITALS: BMI 30.8
[2020-10-12 08:04] LABS: Absolute Lymphocyte Count 1.64 X10^3/uL (0.83-4.51); Absolute Neutrophil Count 4.7 X10^3/uL (2.0-7.7); Basophil# 0.04 X10^3/uL; Basophil% 0.6 % (0-1); Eosinophil# 0.15 X10^3/uL; Eosinophils% 2.1 % (0-5); Hematocrit 38.4 % (40-54); Hemoglobin 11.7 g/dL (13.0-16.5); Lymphocyte # 1.64 X10^3/ul (4.0); Lymphocyte % 22.6 % (19-41); Mean Corp Hgb Conc 30.5 g/dL (32-36); Mean Corpuscular Hgb 29.1 pg (27.0-32.0); Mean Corpuscular Volume 95.5 fL (80-94); Mean Platelet Vol. 10.3 fl (6.2-12.0); Monocyte# 0.68 X10^3/uL; Monocyte% 9.4 % (0-10); NRBC Flagged by Analyzer 0 % (0-5); Neutrophil # 4.74 X10^3/uL (2.7-7.7); Platelet Count 255 K/mm3 (150-450); RBC Distribution Width CV 13.2 % (11.6-14.6); RBC Distribution Width SD 46.5 fl (35.1-43.9); Red Blood Count 4.02 M/mm3 (4.6-6.2); White Blood Count 7.3 K/mm3 (4.4-11.0)
[2020-10-12 08:22] LABS: Anion Gap 5 (5-15); BUN 15 mg/dL (7-18); Chloride 110 mmol/L (98-107); Creatinine, Serum 1.13 mg/dL (0.70-1.30); EST Glomerular Filtration Rate 69 mL/min (>60); Est Glom Filt Rate - Afr Amer 84 mL/min (>60); Glucose 98 mg/dL (74-106); Potassium 3.9 mmol/L (3.5-5.1); Sodium Level 141 mmol/L (136-145)
[2020-10-15 13:27] LABS: Tacrolimus (FK506) 6.4 ng/mL (2.0-20.0)
== END 2020-10-12 18:00 | disposition home or self-care (01) ==
LOC: LAB 07:01
PROVIDERS: PCP Family Medicine; Referring Provider Internal Medicine Nephrology; Visit Provider Internal Medicine Nephrology
DX: D89.9 Disorder involving the immune mechanism, unspecified (principal); D50.9 Iron deficiency anemia, unspecified; Z94.0 Kidney transplant status; Z79.899 Other long term (current) drug therapy
CPT/HCPCS: 36415; 80051; 80197; 82565; 82947; 84520; 85025

== ENCOUNTER → 2020-11-01 07:10 | Outpatient (CLI) | payer MEDICARE, OTHER, SELFPAY ==
[2019-09-03 10:12] VITALS: BMI 30.8
[2020-11-01 08:15] LABS: Hematocrit 37.9 % (40-54); Hemoglobin 11.7 g/dL (13.0-16.5); Mean Corp Hgb Conc 30.9 g/dL (32-36); Mean Corpuscular Hgb 29.3 pg (27.0-32.0); Mean Platelet Vol. 9.8 fl (6.2-12.0); Platelet Count 245 K/mm3 (150-450); RBC Distribution Width CV 13.2 % (11.6-14.6); RBC Distribution Width SD 45.9 fl (35.1-43.9); Red Blood Count 3.99 M/mm3 (4.6-6.2); White Blood Count 6.3 K/mm3 (4.4-11.0)
[2020-11-01 08:40] LABS: Microalbumin,Random Urine 43.2 mg/L (NO RANGE EST.); Microalbumin:Creatinine Ratio 31.5 mg/g CRE (<30 mg/g CRE)
[2020-11-01 08:47] LABS: ALB/GLOB Ratio 1.4 RATIO (0.9-2.4); AST(SGOT) 24 U/L (15-37); Alanine Aminotransfer ALT/SGPT 24 U/L (16-61); Albumin, Serum 4.2 g/dL (3.2-5.0); Alkaline Phosphatase 75 U/L (45-117); Anion Gap 6 (5-15); BUN 15 mg/dL (7-18); Chloride 110 mmol/L (98-107); Cholesterol 163 mg/dL (200); Creatinine, Serum 1.15 mg/dL (0.70-1.30); EST Glomerular Filtration Rate 68 mL/min (>60); Est Glom Filt Rate - Afr Amer 82 mL/min (>60); Glucose 119 mg/dL (74-106); High Density Lipoprotein 41 mg/dL; Potassium 4.1 mmol/L (3.5-5.1); Protein, Total 7.2 g/dL (6.4-8.2); Sodium Level 141 mmol/L (136-145); Triglycerides 154 mg/dL; Very Low Density Lipoprotein 31 mg/dL (5-40)
[2020-11-01 09:48] LABS: Hemoglobin A1c 5.5 % (3.8-5.6)
== END ==
PROVIDERS: PCP Family Medicine; Referring Provider Family Medicine; Visit Provider Family Medicine
DX: E11.22 Type 2 diabetes mellitus with diabetic chronic kidney disease (principal); N18.6 End stage renal disease; E78.5 Hyperlipidemia, unspecified; Z94.0 Kidney transplant status
CPT/HCPCS: 36415; 80053; 80061; 82043; 82570; 83036; 85027

== ENCOUNTER 2020-11-09 07:00 | Outpatient (RCR) | payer MEDICARE, OTHER, SELFPAY ==
[2019-09-03 10:12] VITALS: BMI 30.8
[2020-11-09 07:55] LABS: Absolute Neutrophil Count 3.9 X10^3/uL (2.0-7.7); Basophil# 0.05 X10^3/uL; Basophil% 0.8 % (0-1); Eosinophil# 0.13 X10^3/uL; Eosinophils% 2.1 % (0-5); Hematocrit 37.4 % (40-54); Hemoglobin 11.2 g/dL (13.0-16.5); Lymphocyte % 22.8 % (19-41); Mean Corp Hgb Conc 29.9 g/dL (32-36); Mean Corpuscular Hgb 28.2 pg (27.0-32.0); Mean Corpuscular Volume 94.2 fL (80-94); Monocyte# 0.61 X10^3/uL; Monocyte% 9.9 % (0-10); NRBC Flagged by Analyzer 0 % (0-5); Neutrophil # 3.94 X10^3/uL (2.7-7.7); Neutrophil % 64.1 % (47-70); Platelet Count 253 K/mm3 (150-450); RBC Distribution Width CV 13.1 % (11.6-14.6); RBC Distribution Width SD 44.9 fl (35.1-43.9); Red Blood Count 3.97 M/mm3 (4.6-6.2); White Blood Count 6.2 K/mm3 (4.4-11.0)
[2020-11-09 08:04] LABS: Protein:Creat Ratio 121 mg/g CRE (0-200)
[2020-11-09 08:37] LABS: ALB/GLOB Ratio 1.5 RATIO (0.9-2.4); AST(SGOT) 19 U/L (15-37); Alanine Aminotransfer ALT/SGPT 21 U/L (16-61); Albumin, Serum 4.1 g/dL (3.2-5.0); Alkaline Phosphatase 76 U/L (45-117); Anion Gap 9 (5-15); BUN 15 mg/dL (7-18); BUN/Creat Ratio 12.7 RATIO (10-20); Calcium,Total 8.7 mg/dL (8.5-10.1); Chloride 108 mmol/L (98-107); Cholesterol 158 mg/dL (200); Creatinine, Serum 1.18 mg/dL (0.70-1.30); EST Glomerular Filtration Rate 66 mL/min (>60); Est Glom Filt Rate - Afr Amer 80 mL/min (>60); Ferritin 869 ng/mL (26-388); Globulin 2.7 g/dL (2.2-4.2); Glucose 148 mg/dL (74-106); High Density Lipoprotein 38 mg/dL; Iron 96 ug/dL (65-175); Iron Binding Capacity,Total 248 ug/dL (250-450); Phosphorus 2.5 mg/dL (2.5-4.9); Potassium 4.2 mmol/L (3.5-5.1); Protein, Total 6.8 g/dL (6.4-8.2); Sodium Level 140 mmol/L (136-145); Triglycerides 145 mg/dL; Uric Acid 7.3 mg/dL (3.5-7.2); Very Low Density Lipoprotein 29 mg/dL (5-40)
[2020-11-12 10:56] LABS: Transferrin 195 mg/dL (177-329)
== END 2020-11-09 18:00 | disposition home or self-care (01) ==
LOC: LAB 07:00
PROVIDERS: PCP Family Medicine; Referring Provider Internal Medicine Nephrology; Visit Provider Internal Medicine Nephrology
DX: D84.9 Immunodeficiency, unspecified (principal); D50.9 Iron deficiency anemia, unspecified; Z94.0 Kidney transplant status; Z79.899 Other long term (current) drug therapy
CPT/HCPCS: 36415; 80053; 80061; 80197; 82570; 82728; 83540; 83550; 83735; 84100; 84156; 84466; 84550; 85025

== ENCOUNTER 2020-12-07 06:59 | Outpatient (RCR) | payer MEDICARE, OTHER, SELFPAY ==
[2019-09-03 10:12] VITALS: BMI 30.8
[2020-12-07 07:33] LABS: Absolute Lymphocyte Count 1.31 X10^3/uL (0.83-4.51); Absolute Neutrophil Count 3.8 X10^3/uL (2.0-7.7); Basophil# 0.05 X10^3/uL; Basophil% 0.8 % (0-1); Eosinophil# 0.16 X10^3/uL; Eosinophils% 2.7 % (0-5); Hematocrit 40.4 % (40-54); Hemoglobin 12.9 g/dL (13.0-16.5); Lymphocyte # 1.31 X10^3/ul (0.83-4.51); Mean Corp Hgb Conc 31.9 g/dL (32-36); Mean Corpuscular Volume 90.8 fL (80-94); Monocyte# 0.65 X10^3/uL; Monocyte% 10.9 % (0-10); NRBC Flagged by Analyzer 0 % (0-5); Neutrophil # 3.77 X10^3/uL (2.7-7.7); Neutrophil % 63.4 % (47-70); Platelet Count 233 K/mm3 (150-450); RBC Distribution Width CV 12.4 % (11.6-14.6); Red Blood Count 4.45 M/mm3 (4.6-6.2)
[2020-12-07 07:42] LABS: Anion Gap 3 (5-15); BUN 16 mg/dL (7-18); Chloride 112 mmol/L (98-107); Creatinine, Serum 1.11 mg/dL (0.70-1.30); EST Glomerular Filtration Rate 71 mL/min (>60); Est Glom Filt Rate - Afr Amer 85 mL/min (>60); Glucose 133 mg/dL (74-106); Potassium 3.9 mmol/L (3.5-5.1); Sodium Level 141 mmol/L (136-145)
[2020-12-09 20:32] LABS: Tacrolimus (FK506) 6.1 ng/mL (2.0-20.0)
== END 2020-12-07 18:00 | disposition home or self-care (01) ==
LOC: LAB 06:59
PROVIDERS: PCP Family Medicine; Referring Provider Internal Medicine Nephrology; Visit Provider Internal Medicine Nephrology
DX: D84.9 Immunodeficiency, unspecified (principal); D50.9 Iron deficiency anemia, unspecified; Z94.0 Kidney transplant status; Z79.899 Other long term (current) drug therapy
CPT/HCPCS: 36415; 80051; 80197; 82565; 82947; 84520; 85025

== ENCOUNTER 2021-01-11 07:07 | Outpatient (RCR) | payer MEDICARE, OTHER, SELFPAY ==
[2019-09-03 10:12] VITALS: BMI 30.8
[2021-01-11 07:56] LABS: Absolute Lymphocyte Count 1.21 X10^3/uL (0.83-4.51); Absolute Neutrophil Count 3.9 X10^3/uL (2.0-7.7); Basophil# 0.04 X10^3/uL; Basophil% 0.7 % (0-1); Eosinophil# 0.15 X10^3/uL; Eosinophils% 2.6 % (0-5); Hematocrit 41.2 % (40-54); Hemoglobin 13.5 g/dL (13.0-16.5); Lymphocyte # 1.21 X10^3/ul (0.83-4.51); Lymphocyte % 20.6 % (19-41); Mean Corp Hgb Conc 32.8 g/dL (32-36); Mean Corpuscular Hgb 28.4 pg (27.0-32.0); Mean Corpuscular Volume 86.7 fL (80-94); Mean Platelet Vol. 9.8 fl (6.2-12.0); Monocyte% 10.2 % (0-10); NRBC Flagged by Analyzer 0 % (0-5); Neutrophil # 3.85 X10^3/uL (2.7-7.7); Neutrophil % 65.6 % (47-70); Platelet Count 238 K/mm3 (150-450); RBC Distribution Width CV 12.3 % (11.6-14.6); RBC Distribution Width SD 39.1 fl (35.1-43.9); Red Blood Count 4.75 M/mm3 (4.6-6.2); White Blood Count 5.9 K/mm3 (4.4-11.0)
[2021-01-11 08:22] LABS: Anion Gap 7 (5-15); BUN 16 mg/dL (7-18); Chloride 111 mmol/L (98-107); Glucose 120 mg/dL (74-106); Sodium Level 142 mmol/L (136-145)
[2021-01-12 08:58] LABS: EST Glomerular Filtration Rate 71 mL/min (>60); Est Glom Filt Rate - Afr Amer 86 mL/min (>60)
[2021-01-16 18:21] LABS: Tacrolimus (FK506) 7.9 ng/mL (2.0-20.0)
== END 2021-01-11 18:00 | disposition home or self-care (01) ==
LOC: LAB 07:07
PROVIDERS: PCP Family Medicine; Referring Provider Internal Medicine Nephrology; Visit Provider Internal Medicine Nephrology
DX: D84.9 Immunodeficiency, unspecified (principal); D50.9 Iron deficiency anemia, unspecified; Z94.0 Kidney transplant status; Z79.899 Other long term (current) drug therapy
CPT/HCPCS: 36415; 80051; 80197; 82565; 82947; 84520; 85025

== ENCOUNTER 2021-02-08 06:58 | Outpatient (RCR) | payer MEDICARE, OTHER, SELFPAY ==
[2019-09-03 10:12] VITALS: BMI 30.8
[2021-02-08 08:01] LABS: Absolute Lymphocyte Count 1.41 X10^3/uL (0.83-4.51); Absolute Neutrophil Count 4.5 X10^3/uL (2.0-7.7); Basophil# 0.04 X10^3/uL; Basophil% 0.6 % (0-1); Eosinophil# 0.19 X10^3/uL; Eosinophils% 2.8 % (0-5); Hematocrit 41.8 % (40-54); Hemoglobin 13.5 g/dL (13.0-16.5); Lymphocyte # 1.41 X10^3/ul (0.83-4.51); Lymphocyte % 20.6 % (19-41); Mean Corp Hgb Conc 32.3 g/dL (32-36); Mean Corpuscular Volume 86.7 fL (80-94); Monocyte# 0.75 X10^3/uL; Monocyte% 10.9 % (0-10); NRBC Flagged by Analyzer 0 % (0-5); Neutrophil # 4.45 X10^3/uL (2.7-7.7); Neutrophil % 64.8 % (47-70); Platelet Count 256 K/mm3 (150-450); RBC Distribution Width CV 12.8 % (11.6-14.6); RBC Distribution Width SD 40.1 fl (35.1-43.9); Red Blood Count 4.82 M/mm3 (4.6-6.2); White Blood Count 6.9 K/mm3 (4.4-11.0)
[2021-02-08 08:21] LABS: ALB/GLOB Ratio 1.3 RATIO (0.9-2.4); AST(SGOT) 20 U/L (15-37); Alanine Aminotransfer ALT/SGPT 27 U/L (16-61); Alkaline Phosphatase 75 U/L (45-117); Anion Gap 6 (5-15); BUN 16 mg/dL (7-18); BUN/Creat Ratio 15.1 RATIO (10-20); Calcium,Total 9.2 mg/dL (8.5-10.1); Chloride 111 mmol/L (98-107); Creatinine, Serum 1.06 mg/dL (0.70-1.30); EST Glomerular Filtration Rate 74 mL/min (>60); Est Glom Filt Rate - Afr Amer 90 mL/min (>60); Globulin 3.1 g/dL (2.2-4.2); Glucose 120 mg/dL (74-106); Magnesium 1.9 mg/dL (1.6-2.6); Phosphorus 1.9 mg/dL (2.5-4.9); Potassium 3.8 mmol/L (3.5-5.1); Protein, Total 7.1 g/dL (6.4-8.2); Sodium Level 143 mmol/L (136-145)
[2021-02-10 20:33] LABS: Tacrolimus (FK506) 7.9 ng/mL (2.0-20.0)
== END 2021-02-08 18:00 | disposition home or self-care (01) ==
LOC: LAB 06:58
PROVIDERS: PCP Family Medicine; Referring Provider Internal Medicine Nephrology; Visit Provider Internal Medicine Nephrology
DX: D84.9 Immunodeficiency, unspecified (principal); D50.9 Iron deficiency anemia, unspecified; Z94.0 Kidney transplant status; Z79.899 Other long term (current) drug therapy
CPT/HCPCS: 36415; 80053; 80197; 83735; 84100; 85025

== ENCOUNTER 2021-03-15 07:01 | Outpatient (RCR) | payer MEDICARE, OTHER, SELFPAY ==
[2021-03-08 00:23] VITALS: BMI 30.8
[2021-03-15 08:13] LABS: Absolute Lymphocyte Count 1.27 X10^3/uL (0.83-4.51); Absolute Neutrophil Count 4.1 X10^3/uL (2.0-7.7); Basophil# 0.03 X10^3/uL; Basophil% 0.5 % (0-1); Eosinophil# 0.14 X10^3/uL; Eosinophils% 2.2 % (0-5); Hematocrit 39.9 % (40-54); Lymphocyte # 1.27 X10^3/ul (0.83-4.51); Lymphocyte % 20.4 % (19-41); Mean Corp Hgb Conc 32.6 g/dL (32-36); Mean Corpuscular Hgb 28.3 pg (27.0-32.0); Mean Corpuscular Volume 86.7 fL (80-94); Mean Platelet Vol. 9.9 fl (6.2-12.0); Monocyte# 0.68 X10^3/uL; Monocyte% 10.9 % (0-10); NRBC Flagged by Analyzer 0 % (0-5); Neutrophil # 4.09 X10^3/uL (2.7-7.7); Neutrophil % 65.7 % (47-70); Platelet Count 254 K/mm3 (150-450); RBC Distribution Width CV 13.2 % (11.6-14.6); RBC Distribution Width SD 41.2 fl (35.1-43.9); White Blood Count 6.2 K/mm3 (4.4-11.0)
[2021-03-15 08:36] LABS: Anion Gap 6 (5-15); BUN 16 mg/dL (7-18); Chloride 111 mmol/L (98-107); Creatinine, Serum 1.01 mg/dL (0.70-1.30); EST Glomerular Filtration Rate 79 mL/min (>60); Est Glom Filt Rate - Afr Amer 95 mL/min (>60); Glucose 107 mg/dL (74-106); Potassium 3.8 mmol/L (3.5-5.1); Sodium Level 141 mmol/L (136-145)
[2021-03-18 16:40] LABS: Tacrolimus (FK506) 4.5 ng/mL (2.0-20.0)
== END 2021-03-15 18:00 | disposition home or self-care (01) ==
LOC: LAB 07:01
PROVIDERS: PCP Family Medicine; Referring Provider Internal Medicine Nephrology; Visit Provider Internal Medicine Nephrology
DX: Z94.0 Kidney transplant status (principal); D84.9 Immunodeficiency, unspecified; D50.9 Iron deficiency anemia, unspecified; Z79.899 Other long term (current) drug therapy
CPT/HCPCS: 36415; 80051; 80197; 82565; 82947; 84520; 85025

== ENCOUNTER 2021-04-12 07:01 | Outpatient (RCR) | payer MEDICARE, OTHER, SELFPAY ==
[2021-04-06 22:04] VITALS: BMI 30.8
[2021-04-12 07:16] LABS: Absolute Neutrophil Count 4.2 X10^3/uL (2.0-7.7); Basophil# 0.04 X10^3/uL; Basophil% 0.6 % (0-1); Eosinophil# 0.18 X10^3/uL; Eosinophils% 2.8 % (0-5); Hemoglobin 13.2 g/dL (13.0-16.5); Lymphocyte % 20.2 % (19-41); Mean Corp Hgb Conc 32.2 g/dL (32-36); Mean Corpuscular Hgb 28.3 pg (27.0-32.0); Mean Platelet Vol. 9.7 fl (6.2-12.0); Monocyte# 0.66 X10^3/uL; Monocyte% 10.2 % (0-10); NRBC Flagged by Analyzer 0 % (0-5); Neutrophil # 4.24 X10^3/uL (2.7-7.7); Neutrophil % 65.9 % (47-70); Platelet Count 255 K/mm3 (150-450); RBC Distribution Width CV 13.2 % (11.6-14.6); RBC Distribution Width SD 42.3 fl (35.1-43.9); Red Blood Count 4.66 M/mm3 (4.6-6.2); White Blood Count 6.4 K/mm3 (4.4-11.0)
[2021-04-12 07:55] LABS: Anion Gap 6 (5-15); BUN 16 mg/dL (7-18); Chloride 109 mmol/L (98-107); Creatinine, Serum 1.29 mg/dL (0.70-1.30); EST Glomerular Filtration Rate 59 mL/min (>60); Est Glom Filt Rate - Afr Amer 72 mL/min (>60); Glucose 135 mg/dL (74-106); Potassium 4.1 mmol/L (3.5-5.1); Sodium Level 140 mmol/L (136-145)
[2021-04-14 21:13] LABS: Tacrolimus (FK506) 2.2 ng/mL (2.0-20.0)
== END 2021-05-07 18:00 | disposition home or self-care (01) ==
LOC: LAB 07:01
PROVIDERS: PCP Family Medicine; Referring Provider Internal Medicine Nephrology; Visit Provider Internal Medicine Nephrology
DX: D84.9 Immunodeficiency, unspecified (principal); Z94.0 Kidney transplant status; D50.9 Iron deficiency anemia, unspecified; Z79.899 Other long term (current) drug therapy
CPT/HCPCS: 36415; 80051; 80197; 82565; 82947; 84520; 85025

== ENCOUNTER → 2021-05-18 07:01 | Outpatient (CLI) | payer MEDICARE, OTHER, SELFPAY ==
[2021-05-18 09:56] LABS: Microalbumin,Random Urine 26.6 mg/L (NO RANGE EST.); Microalbumin:Creatinine Ratio 16.6 mg/g CRE (<30 mg/g CRE)
[2021-05-18 10:07] LABS: Vitamin D,25 Hydroxy 16.7 ng/mL
[2021-05-18 10:09] LABS: Hemoglobin A1c 8.3 % (3.8-5.6)
== END ==
PROVIDERS: PCP Family Medicine; Referring Provider Family Medicine; Visit Provider Family Medicine
DX: E11.49 Type 2 diabetes mellitus with other diabetic neurological complication (principal); E55.9 Vitamin D deficiency, unspecified
CPT/HCPCS: 36415; 82043; 82306; 82570; 83036

== ENCOUNTER 2021-05-22 06:07 | Outpatient (RCR) | payer MEDICARE, OTHER, SELFPAY ==
[2021-05-07 20:20] VITALS: BMI 30.8
[2021-05-10 07:59] LABS: Absolute Lymphocyte Count 1.32 X10^3/uL (0.83-4.51); Absolute Neutrophil Count 4.1 X10^3/uL (2.0-7.7); Basophil# 0.04 X10^3/uL; Basophil% 0.6 % (0-1); Eosinophil# 0.11 X10^3/uL; Eosinophils% 1.8 % (0-5); Hemoglobin 13.6 g/dL (13.0-16.5); Lymphocyte # 1.32 X10^3/ul (0.83-4.51); Lymphocyte % 21.4 % (19-41); Mean Corp Hgb Conc 33.2 g/dL (32-36); Mean Corpuscular Hgb 28.8 pg (27.0-32.0); Mean Corpuscular Volume 86.7 fL (80-94); Monocyte# 0.59 X10^3/uL; Monocyte% 9.6 % (0-10); NRBC Flagged by Analyzer 0 % (0-5); Neutrophil % 66.4 % (47-70); Platelet Count 241 K/mm3 (150-450); RBC Distribution Width CV 12.8 % (11.6-14.6); RBC Distribution Width SD 40.3 fl (35.1-43.9); Red Blood Count 4.73 M/mm3 (4.6-6.2); White Blood Count 6.2 K/mm3 (4.4-11.0)
[2021-05-10 08:03] LABS: Protein, Urine (Random) 23.6 mg/dL (<11.9); Protein:Creat Ratio 124 mg/g CRE (0-200)
[2021-05-10 08:37] LABS: AST(SGOT) 22 U/L (15-37); Alanine Aminotransfer ALT/SGPT 23 U/L (16-61); Albumin, Serum 3.8 g/dL (3.2-5.0); Anion Gap 7 (5-15); BUN 14 mg/dL (7-18); Calcium,Total 9.3 mg/dL (8.5-10.1); Chloride 110 mmol/L (98-107); Cholesterol 175 mg/dL (200); Creatinine, Serum 1.08 mg/dL (0.70-1.30); EST Glomerular Filtration Rate 73 mL/min (>60); Est Glom Filt Rate - Afr Amer 88 mL/min (>60); Ferritin 705 ng/mL (26-388); Glucose 115 mg/dL (74-106); High Density Lipoprotein 42 mg/dL; Iron 95 ug/dL (65-175); Iron Binding Capacity,Total 237 ug/dL (250-450); Potassium 3.8 mmol/L (3.5-5.1); Sodium Level 142 mmol/L (136-145); Triglycerides 172 mg/dL; Uric Acid 6.4 mg/dL (3.5-7.2); Very Low Density Lipoprotein 34 mg/dL (5-40)
[2021-05-11 11:54] LABS: Alkaline Phosphatase 76 U/L (45-117)
[2021-05-12 22:57] LABS: Tacrolimus (FK506) 5.4 ng/mL (2.0-20.0); Transferrin 215 mg/dL (177-329)
[2021-05-22 09:03] LABS: Creatinine, Serum 1.19 mg/dL (0.70-1.30); EST Glomerular Filtration Rate 65 mL/min (>60); Est Glom Filt Rate - Afr Amer 79 mL/min (>60)
[2021-05-22 09:44] LABS: Creat.Clear Total Volume 1775 mL; Creatinine Clearance 110 ml/min (100-200); Creatinine Serum Creat 1.2 mg/dL (0.8-1.3); EST Glomerular Filtration Rate 65 mL/min (>60); Est Glom Filt Rate - Afr Amer 79 mL/min (>60)
[2021-05-22 09:46] LABS: 24 Hour Urine Protein 216.6 mg/24HR (<150 MG/24HR); 24HR. UA Prot. Total Volume 1775 mL; Urine Protein (24 Hour) 12.2 mg/dL (<11.9)
== END 2021-06-06 18:00 | disposition home or self-care (01) ==
LOC: LAB 06:07
PROVIDERS: PCP Family Medicine; Referring Provider Internal Medicine Nephrology; Visit Provider Internal Medicine Nephrology
DX: D50.9 Iron deficiency anemia, unspecified (principal); Z94.0 Kidney transplant status; D84.9 Immunodeficiency, unspecified; Z79.899 Other long term (current) drug therapy
CPT/HCPCS: 36415; 80051; 80061; 80197; 81050; 82040; 82247; 82310; 82565; 82570; 82575; 82728; 82947; 83540; 83550; 83735; 84075; 84156; 84450; 84460; 84466; 84520; 84550; 85025

== ENCOUNTER 2021-06-07 07:00 | Outpatient (RCR) | payer MEDICARE, OTHER, SELFPAY ==
[2021-06-07 03:39] VITALS: BMI 30.8
[2021-06-07 07:50] LABS: Absolute Lymphocyte Count 1.24 X10^3/uL (0.83-4.51); Absolute Neutrophil Count 4.1 X10^3/uL (2.0-7.7); Basophil# 0.05 X10^3/uL; Basophil% 0.8 % (0-1); Eosinophils% 1.6 % (0-5); Hematocrit 41.2 % (40-54); Hemoglobin 13.3 g/dL (13.0-16.5); Lymphocyte # 1.24 X10^3/ul (0.83-4.51); Lymphocyte % 20.4 % (19-41); Mean Corp Hgb Conc 32.3 g/dL (32-36); Mean Corpuscular Volume 86.7 fL (80-94); Mean Platelet Vol. 9.9 fl (6.2-12.0); Monocyte# 0.58 X10^3/uL; Monocyte% 9.5 % (0-10); NRBC Flagged by Analyzer 0 % (0-5); Neutrophil % 67.5 % (47-70); Platelet Count 258 K/mm3 (150-450); RBC Distribution Width CV 12.6 % (11.6-14.6); Red Blood Count 4.75 M/mm3 (4.6-6.2); White Blood Count 6.1 K/mm3 (4.4-11.0)
[2021-06-07 08:11] LABS: Anion Gap 6 (5-15); BUN 16 mg/dL (7-18); Chloride 110 mmol/L (98-107); EST Glomerular Filtration Rate 71 mL/min (>60); Est Glom Filt Rate - Afr Amer 86 mL/min (>60); Glucose 143 mg/dL (74-106); Potassium 4.1 mmol/L (3.5-5.1); Sodium Level 141 mmol/L (136-145)
[2021-06-12 11:24] LABS: Tacrolimus (FK506) 3.9 ng/mL (2.0-20.0)
== END 2021-07-08 18:00 | disposition home or self-care (01) ==
LOC: LAB 07:00
PROVIDERS: PCP Family Medicine; Referring Provider Internal Medicine Nephrology; Visit Provider Internal Medicine Nephrology
DX: D50.9 Iron deficiency anemia, unspecified (principal); Z94.0 Kidney transplant status; D84.9 Immunodeficiency, unspecified; Z79.899 Other long term (current) drug therapy
CPT/HCPCS: 36415; 80051; 80197; 82565; 82947; 84520; 85025

== ENCOUNTER 2021-07-11 06:57 | Outpatient (RCR) | payer MEDICARE, OTHER, SELFPAY ==
[2021-07-09 04:52] VITALS: BMI 30.8
[2021-07-11 07:30] LABS: Absolute Lymphocyte Count 1.23 X10^3/uL (0.83-4.51); Absolute Neutrophil Count 5.2 X10^3/uL (2.0-7.7); Basophil# 0.05 X10^3/uL; Basophil% 0.7 % (0-1); Eosinophil# 0.14 X10^3/uL; Eosinophils% 1.9 % (0-5); Hematocrit 40.5 % (40-54); Hemoglobin 13.1 g/dL (13.0-16.5); Lymphocyte # 1.23 X10^3/ul (0.83-4.51); Lymphocyte % 16.7 % (19-41); Mean Corp Hgb Conc 32.3 g/dL (32-36); Mean Corpuscular Hgb 28.1 pg (27.0-32.0); Mean Corpuscular Volume 86.9 fL (80-94); Mean Platelet Vol. 9.7 fl (6.2-12.0); Monocyte# 0.74 X10^3/uL; Monocyte% 10.1 % (0-10); NRBC Flagged by Analyzer 0 % (0-5); Neutrophil # 5.16 X10^3/uL (2.7-7.7); Neutrophil % 70.2 % (47-70); Platelet Count 237 K/mm3 (150-450); RBC Distribution Width CV 12.8 % (11.6-14.6); RBC Distribution Width SD 40.1 fl (35.1-43.9); Red Blood Count 4.66 M/mm3 (4.6-6.2); White Blood Count 7.4 K/mm3 (4.4-11.0)
[2021-07-11 07:58] LABS: AST(SGOT) 15 U/L (15-37); Alanine Aminotransfer ALT/SGPT 24 U/L (16-61); Albumin, Serum 3.8 g/dL (3.2-5.0); Anion Gap 6 (5-15); BUN 18 mg/dL (7-18); Calcium,Total 9.3 mg/dL (8.5-10.1); Chloride 111 mmol/L (98-107); Creatinine, Serum 1.08 mg/dL (0.70-1.30); EST Glomerular Filtration Rate 73 mL/min (>60); Est Glom Filt Rate - Afr Amer 88 mL/min (>60); Glucose 148 mg/dL (74-106); Potassium 4.1 mmol/L (3.5-5.1); Sodium Level 143 mmol/L (136-145)
[2021-07-14 15:30] LABS: Tacrolimus (FK506) 4.8 ng/mL (2.0-20.0)
== END 2021-08-07 18:00 | disposition home or self-care (01) ==
LOC: LAB 06:57
PROVIDERS: PCP Family Medicine; Referring Provider Internal Medicine Nephrology; Visit Provider Internal Medicine Nephrology
DX: D50.9 Iron deficiency anemia, unspecified (principal); D84.9 Immunodeficiency, unspecified; Z79.4 Long term (current) use of insulin; Z79.899 Other long term (current) drug therapy
CPT/HCPCS: 36415; 80051; 80197; 82040; 82247; 82310; 82565; 82947; 83735; 84450; 84460; 84520; 85025

== ENCOUNTER 2021-08-09 06:56 | Outpatient (RCR) | payer MEDICARE, OTHER, SELFPAY ==
[2021-08-08 01:30] VITALS: BMI 30.8
[2021-08-09 07:21] LABS: Absolute Lymphocyte Count 1.44 X10^3/uL (0.83-4.51); Absolute Neutrophil Count 4.3 X10^3/uL (2.0-7.7); Basophil# 0.04 X10^3/uL; Basophil% 0.6 % (0-1); Eosinophil# 0.12 X10^3/uL; Eosinophils% 1.8 % (0-5); Hematocrit 41.6 % (40-54); Hemoglobin 13.8 g/dL (13.0-16.5); Lymphocyte # 1.44 X10^3/ul (0.83-4.51); Lymphocyte % 21.6 % (19-41); Mean Corp Hgb Conc 33.2 g/dL (32-36); Mean Corpuscular Hgb 28.6 pg (27.0-32.0); Mean Corpuscular Volume 86.1 fL (80-94); Mean Platelet Vol. 10.3 fl (6.2-12.0); Monocyte# 0.72 X10^3/uL; Monocyte% 10.8 % (0-10); NRBC Flagged by Analyzer 0 % (0-5); Neutrophil # 4.32 X10^3/uL (2.7-7.7); Neutrophil % 64.8 % (47-70); Platelet Count 232 K/mm3 (150-450); RBC Distribution Width CV 12.9 % (11.6-14.6); RBC Distribution Width SD 40.3 fl (35.1-43.9); Red Blood Count 4.83 M/mm3 (4.6-6.2); White Blood Count 6.7 K/mm3 (4.4-11.0)
[2021-08-09 07:45] LABS: Anion Gap 8 (5-15); BUN 19 mg/dL (7-18); Chloride 109 mmol/L (98-107); Creatinine, Serum 1.08 mg/dL (0.70-1.30); EST Glomerular Filtration Rate 73 mL/min (>60); Est Glom Filt Rate - Afr Amer 88 mL/min (>60); Glucose 135 mg/dL (74-106); Potassium 4.1 mmol/L (3.5-5.1); Sodium Level 143 mmol/L (136-145)
[2021-08-13 14:32] LABS: Tacrolimus (FK506) 5.6 ng/mL (2.0-20.0)
== END 2021-08-09 23:59 | disposition home or self-care (01) ==
LOC: LAB 06:56
PROVIDERS: PCP Family Medicine; Referring Provider Internal Medicine Nephrology; Visit Provider Internal Medicine Nephrology
DX: D84.9 Immunodeficiency, unspecified (principal); D50.9 Iron deficiency anemia, unspecified; Z94.0 Kidney transplant status; Z79.899 Other long term (current) drug therapy
CPT/HCPCS: 36415; 80051; 80197; 82565; 82947; 84520; 85025

== ENCOUNTER 2021-09-06 06:50 | Outpatient (RCR) | payer MEDICARE, OTHER, SELFPAY ==
[2021-09-05 09:53] VITALS: BMI 30.8
[2021-09-06 07:05] LABS: Absolute Lymphocyte Count 1.33 X10^3/uL (0.83-4.51); Absolute Neutrophil Count 4.4 X10^3/uL (2.0-7.7); Basophil# 0.04 X10^3/uL; Basophil% 0.6 % (0-1); Eosinophil# 0.11 X10^3/uL; Eosinophils% 1.7 % (0-5); Hemoglobin 13.9 g/dL (13.0-16.5); Lymphocyte # 1.33 X10^3/ul (0.83-4.51); Lymphocyte % 20.5 % (19-41); Mean Corp Hgb Conc 33.9 g/dL (32-36); Mean Corpuscular Hgb 28.7 pg (27.0-32.0); Mean Corpuscular Volume 84.5 fL (80-94); Mean Platelet Vol. 9.6 fl (6.2-12.0); Monocyte# 0.64 X10^3/uL; Monocyte% 9.8 % (0-10); NRBC Flagged by Analyzer 0 % (0-5); Neutrophil # 4.35 X10^3/uL (2.7-7.7); Neutrophil % 66.9 % (47-70); Platelet Count 235 K/mm3 (150-450); RBC Distribution Width CV 12.7 % (11.6-14.6); RBC Distribution Width SD 38.7 fl (35.1-43.9); Red Blood Count 4.85 M/mm3 (4.6-6.2); White Blood Count 6.5 K/mm3 (4.4-11.0)
[2021-09-06 07:34] LABS: Anion Gap 5 (5-15); BUN 16 mg/dL (7-18); Chloride 110 mmol/L (98-107); Creatinine, Serum 1.17 mg/dL (0.70-1.30); EST Glomerular Filtration Rate 66 mL/min (>60); Est Glom Filt Rate - Afr Amer 80 mL/min (>60); Glucose 100 mg/dL (74-106); Potassium 3.9 mmol/L (3.5-5.1); Sodium Level 142 mmol/L (136-145)
[2021-09-11 12:10] LABS: Tacrolimus (FK506) 6.2 ng/mL (2.0-20.0)
== END 2021-10-05 18:00 | disposition home or self-care (01) ==
LOC: LAB 06:50
PROVIDERS: PCP Family Medicine; Referring Provider Internal Medicine Nephrology; Visit Provider Internal Medicine Nephrology
DX: Z94.0 Kidney transplant status (principal); D84.9 Immunodeficiency, unspecified; D50.9 Iron deficiency anemia, unspecified; Z79.899 Other long term (current) drug therapy
CPT/HCPCS: 36415; 80051; 80197; 82565; 82947; 84520; 85025

== ENCOUNTER 2021-10-11 06:47 | Outpatient (RCR) | payer MEDICARE, OTHER, SELFPAY ==
[2021-10-06 03:27] VITALS: BMI 30.8
[2021-10-11 07:33] LABS: Absolute Lymphocyte Count 1.27 X10^3/uL (0.83-4.51); Absolute Neutrophil Count 4.7 X10^3/uL (2.0-7.7); Basophil# 0.05 X10^3/uL; Basophil% 0.7 % (0-1); Eosinophil# 0.13 X10^3/uL; Eosinophils% 1.9 % (0-5); Hematocrit 41.1 % (40-54); Hemoglobin 13.7 g/dL (13.0-16.5); Lymphocyte # 1.27 X10^3/ul (0.83-4.51); Lymphocyte % 18.8 % (19-41); Mean Corp Hgb Conc 33.3 g/dL (32-36); Mean Corpuscular Hgb 28.1 pg (27.0-32.0); Mean Corpuscular Volume 84.4 fL (80-94); Mean Platelet Vol. 10.2 fl (6.2-12.0); Monocyte# 0.62 X10^3/uL; Monocyte% 9.2 % (0-10); NRBC Flagged by Analyzer 0 % (0-5); Neutrophil # 4.66 X10^3/uL (2.7-7.7); Platelet Count 242 K/mm3 (150-450); RBC Distribution Width CV 12.8 % (11.6-14.6); RBC Distribution Width SD 38.8 fl (35.1-43.9); Red Blood Count 4.87 M/mm3 (4.6-6.2); White Blood Count 6.8 K/mm3 (4.4-11.0)
[2021-10-11 07:50] LABS: Protein, Urine (Random) 15.8 mg/dL (<11.9); Protein:Creat Ratio 159 mg/g CRE (0-200)
[2021-10-11 08:06] LABS: ALB/GLOB Ratio 1.2 RATIO (0.9-2.4); AST(SGOT) 18 U/L (15-37); Alanine Aminotransfer ALT/SGPT 24 U/L (16-61); Albumin, Serum 3.9 g/dL (3.2-5.0); Alkaline Phosphatase 71 U/L (45-117); Anion Gap 5 (5-15); BUN 16 mg/dL (7-18); BUN/Creat Ratio 14.8 RATIO (10-20); Chloride 109 mmol/L (98-107); Cholesterol 175 mg/dL (200); Creatinine, Serum 1.08 mg/dL (0.70-1.30); EST Glomerular Filtration Rate 73 mL/min (>60); Est Glom Filt Rate - Afr Amer 88 mL/min (>60); Ferritin 597 ng/mL (26-388); Globulin 3.3 g/dL (2.2-4.2); Glucose 176 mg/dL (74-106); High Density Lipoprotein 43 mg/dL; Iron 100 ug/dL (65-175); Iron Binding Capacity,Total 263 ug/dL (250-450); Magnesium 1.7 mg/dL (1.6-2.6); Phosphorus 2.8 mg/dL (2.5-4.9); Protein, Total 7.2 g/dL (6.4-8.2); Sodium Level 139 mmol/L (136-145); Triglycerides 153 mg/dL; Uric Acid 5.9 mg/dL (3.5-7.2); Very Low Density Lipoprotein 31 mg/dL (5-40)
[2021-10-17 16:36] LABS: Tacrolimus (FK506) 5.6 ng/mL (2.0-20.0); Transferrin 200 mg/dL (177-329)
== END 2021-10-11 18:00 | disposition home or self-care (01) ==
LOC: LAB 06:47
PROVIDERS: PCP Family Medicine; Referring Provider Internal Medicine Nephrology; Visit Provider Internal Medicine Nephrology
DX: Z94.0 Kidney transplant status (principal); D84.9 Immunodeficiency, unspecified; R79.9 Abnormal finding of blood chemistry, unspecified; Z79.899 Other long term (current) drug therapy
CPT/HCPCS: 36415; 80053; 80061; 80197; 82570; 82728; 83540; 83550; 83735; 84100; 84156; 84466; 84550; 85025

== ENCOUNTER 2021-11-08 06:54 | Outpatient (RCR) | payer MEDICARE, OTHER, SELFPAY ==
[2021-11-05 03:52] VITALS: BMI 30.8
[2021-11-08 07:03] LABS: Bacteria 0 SEEN /hpf (None Seen); Mucous, Urine 0 SEEN /hpf (<or=2+); Red Blood Cells-Urine 0 SEEN /hpf (0-5); Squamous Epithelial Cells - UA 0 SEEN /hpf (0-5)
[2021-11-08 07:29] LABS: Absolute Neutrophil Count 4.9 X10^3/uL (2.0-7.7); Basophil# 0.05 X10^3/uL; Basophil% 0.7 % (0-1); Eosinophil# 0.16 X10^3/uL; Eosinophils% 2.2 % (0-5); Hematocrit 41.8 % (40-54); Hemoglobin 14.1 g/dL (13.0-16.5); Lymphocyte % 19.4 % (19-41); Mean Corp Hgb Conc 33.7 g/dL (32-36); Mean Corpuscular Hgb 28.8 pg (27.0-32.0); Mean Corpuscular Volume 85.5 fL (80-94); Mean Platelet Vol. 10.2 fl (6.2-12.0); Monocyte# 0.64 X10^3/uL; Monocyte% 8.9 % (0-10); NRBC Flagged by Analyzer 0 % (0-5); Neutrophil # 4.92 X10^3/uL (2.7-7.7); Neutrophil % 68.2 % (47-70); Platelet Count 240 K/mm3 (150-450); RBC Distribution Width CV 12.8 % (11.6-14.6); RBC Distribution Width SD 39.5 fl (35.1-43.9); Red Blood Count 4.89 M/mm3 (4.6-6.2); White Blood Count 7.2 K/mm3 (4.4-11.0)
[2021-11-08 07:51] LABS: Microalbumin,Random Urine 33.3 mg/L (NO RANGE EST.); Microalbumin:Creatinine Ratio 24.1 mg/g CRE (<30 mg/g CRE)
[2021-11-08 08:02] LABS: ALB/GLOB Ratio 1.3 RATIO (0.9-2.4); AST(SGOT) 21 U/L (15-37); Alanine Aminotransfer ALT/SGPT 25 U/L (16-61); Albumin, Serum 3.9 g/dL (3.2-5.0); Alkaline Phosphatase 71 U/L (45-117); Anion Gap 8 (5-15); BUN 14 mg/dL (7-18); BUN/Creat Ratio 12.6 RATIO (10-20); Calcium,Total 8.8 mg/dL (8.5-10.1); Chloride 109 mmol/L (98-107); Cholesterol 197 mg/dL (200); Creatinine, Serum 1.11 mg/dL (0.70-1.30); EST Glomerular Filtration Rate 70 mL/min (>60); Est Glom Filt Rate - Afr Amer 85 mL/min (>60); Glucose 171 mg/dL (74-106); High Density Lipoprotein 43 mg/dL; PSA,Total- Diagnostic 2.01 ng/mL (0.0-4.0); Potassium 4.1 mmol/L (3.5-5.1); Protein, Total 6.9 g/dL (6.4-8.2); Sodium Level 140 mmol/L (136-145); Triglycerides 188 mg/dL; Very Low Density Lipoprotein 38 mg/dL (5-40)
[2021-11-08 08:14] LABS: Color, Urine Yellow (Yellow); Glucose, Dipstick Normal (Normal); Ketone-Dipstick Negative (Negative); Leukocyte Esterase-Dipstick 25 /ul (Negative); Nitrite-Dipstick Negative (Negative); Occult Blood-Urine Negative /ul (Negative); Protein-Dipstick 15 mg/dl (Negative); Specific Gravity, Urine 1.015 (1.002-1.030); Urine Bilirubin Dipstick Negative (Negative); Urine Clarity Clear (Clear); Urine Urobilinogen Normal (Normal); Vitamin D,25 Hydroxy 36.2 ng/mL
[2021-11-08 08:47] LABS: White Blood Cells 0-5 SEEN /hpf (0-5)
[2021-11-13 13:15] LABS: Tacrolimus (FK506) 6.8 ng/mL (2.0-20.0)
== END 2021-11-08 18:00 | disposition home or self-care (01) ==
LOC: LAB 06:54
PROVIDERS: PCP Family Medicine; Referring Provider Internal Medicine Nephrology; Visit Provider Internal Medicine Nephrology
DX: Z94.0 Kidney transplant status (principal); D84.9 Immunodeficiency, unspecified; R79.9 Abnormal finding of blood chemistry, unspecified; Z79.899 Other long term (current) drug therapy; E55.9 Vitamin D deficiency, unspecified; E11.22 Type 2 diabetes mellitus with diabetic chronic kidney disease; N18.2 Chronic kidney disease, stage 2 (mild); Z79.4 Long term (current) use of insulin; E11.3391 Type 2 diabetes mellitus with moderate nonproliferative diabetic retinopathy without macular edema, right eye; E11.3392 Type 2 diabetes mellitus with moderate nonproliferative diabetic retinopathy without macular edema, left eye; I12.9 Hypertensive chronic kidney disease with stage 1 through stage 4 chronic kidney disease, or unspecified chronic kidney disease; E78.2 Mixed hyperlipidemia; E11.49 Type 2 diabetes mellitus with other diabetic neurological complication; N42.9 Disorder of prostate, unspecified; D63.1 Anemia in chronic kidney disease
CPT/HCPCS: 36415; 80053; 80061; 80197; 81001; 82043; 82306; 82570; 83036; 84153; 85025

== ENCOUNTER 2022-01-10 06:34 | Outpatient (RCR) | payer MEDICARE, SELFPAY ==
[2021-12-05 21:09] VITALS: BMI 30.8
[2022-01-10 07:14] LABS: Absolute Lymphocyte Count 1.45 X10^3/uL (0.83-4.51); Absolute Neutrophil Count 6.7 X10^3/uL (2.0-7.7); Basophil# 0.06 X10^3/uL; Basophil% 0.6 % (0-1); Eosinophil# 0.23 X10^3/uL; Eosinophils% 2.5 % (0-5); Hematocrit 40.6 % (40-54); Hemoglobin 13.5 g/dL (13.0-16.5); Lymphocyte # 1.45 X10^3/ul (0.83-4.51); Lymphocyte % 15.7 % (19-41); Mean Corp Hgb Conc 33.3 g/dL (32-36); Mean Corpuscular Hgb 28.6 pg (27.0-32.0); Mean Platelet Vol. 9.8 fl (6.2-12.0); Monocyte# 0.75 X10^3/uL; Monocyte% 8.1 % (0-10); NRBC Flagged by Analyzer 0 % (0-5); Neutrophil # 6.73 X10^3/uL (2.7-7.7); Neutrophil % 72.8 % (47-70); Platelet Count 277 K/mm3 (150-450); RBC Distribution Width CV 12.8 % (11.6-14.6); RBC Distribution Width SD 39.8 fl (35.1-43.9); Red Blood Count 4.72 M/mm3 (4.6-6.2); White Blood Count 9.3 K/mm3 (4.4-11.0)
[2022-01-10 08:07] LABS: Anion Gap 6 (5-15); BUN 13 mg/dL (7-18); Calcium,Total 9.6 mg/dL (8.5-10.1); Chloride 112 mmol/L (98-107); Creatinine, Serum 1.11 mg/dL (0.70-1.30); EST Glomerular Filtration Rate 70 mL/min (>60); Est Glom Filt Rate - Afr Amer 85 mL/min (>60); Glucose 129 mg/dL (74-106); Magnesium 2.1 mg/dL (1.6-2.6); Phosphorus 2.4 mg/dL (2.5-4.9); Potassium 3.8 mmol/L (3.5-5.1); Sodium Level 142 mmol/L (136-145)
== END 2022-02-04 02:51 | disposition home or self-care (01) ==
LOC: LAB 06:34
PROVIDERS: PCP Family Medicine; Referring Provider Internal Medicine Nephrology; Visit Provider Internal Medicine Nephrology
DX: D84.9 Immunodeficiency, unspecified (principal); R79.9 Abnormal finding of blood chemistry, unspecified; Z79.899 Other long term (current) drug therapy; Z94.0 Kidney transplant status; Z48.298 Encounter for aftercare following other organ transplant
CPT/HCPCS: 36415; 80051; 80197; 82310; 82565; 82947; 83735; 84100; 84520; 85025

== ENCOUNTER 2022-03-09 06:01 | Outpatient (RCR) | payer MEDICARE, SELFPAY ==
[2022-02-04 02:52] VITALS: BMI 30.8
[2022-03-09 07:08] LABS: Absolute Lymphocyte Count 1.42 X10^3/uL (0.83-4.51); Absolute Neutrophil Count 4.5 X10^3/uL (2.0-7.7); Basophil# 0.05 X10^3/uL; Basophil% 0.7 % (0-1); Eosinophil# 0.17 X10^3/uL; Eosinophils% 2.5 % (0-5); Hematocrit 40.3 % (40-54); Lymphocyte # 1.42 X10^3/ul (0.83-4.51); Lymphocyte % 20.6 % (19-41); Mean Corp Hgb Conc 32.3 g/dL (32-36); Mean Corpuscular Hgb 28.3 pg (27.0-32.0); Mean Corpuscular Volume 87.8 fL (80-94); Mean Platelet Vol. 10.5 fl (6.2-12.0); Monocyte% 10.2 % (0-10); NRBC Flagged by Analyzer 0 % (0-5); Neutrophil # 4.51 X10^3/uL (2.7-7.7); Neutrophil % 65.6 % (47-70); Platelet Count 259 K/mm3 (150-450); RBC Distribution Width CV 12.9 % (11.6-14.6); RBC Distribution Width SD 41.4 fl (35.1-43.9); Red Blood Count 4.59 M/mm3 (4.6-6.2); White Blood Count 6.9 K/mm3 (4.4-11.0)
[2022-03-09 07:36] LABS: Anion Gap 6 (5-15); BUN 17 mg/dL (7-18); Calcium,Total 9.4 mg/dL (8.5-10.1); Chloride 111 mmol/L (98-107); Creatinine, Serum 1.23 mg/dL (0.70-1.30); EST Glomerular Filtration Rate 62 mL/min (>60); Est Glom Filt Rate - Afr Amer 76 mL/min (>60); Glucose 138 mg/dL (74-106); Phosphorus 3.1 mg/dL (2.5-4.9); Sodium Level 143 mmol/L (136-145)
[2022-03-14 08:21] LABS: Tacrolimus (FK506) 6.7 ng/mL (2.0-20.0)
== END 2022-03-09 18:00 | disposition home or self-care (01) ==
LOC: LAB 06:01
PROVIDERS: PCP Family Medicine; Referring Provider Internal Medicine Nephrology; Visit Provider Internal Medicine Nephrology
DX: D84.9 Immunodeficiency, unspecified (principal); R79.9 Abnormal finding of blood chemistry, unspecified; Z79.899 Other long term (current) drug therapy; Z94.0 Kidney transplant status; Z48.298 Encounter for aftercare following other organ transplant
CPT/HCPCS: 36415; 80051; 80197; 82310; 82565; 82947; 83735; 84100; 84520; 85025

== ENCOUNTER 2022-05-16 05:58 | Outpatient (RCR) | payer MEDICARE, SELFPAY ==
[2022-04-06 22:03] VITALS: BMI 30.8
[2022-05-16 07:28] LABS: Absolute Lymphocyte Count 1.48 X10^3/uL (0.83-4.51); Absolute Neutrophil Count 5.7 X10^3/uL (2.0-7.7); Basophil# 0.05 X10^3/uL; Basophil% 0.6 % (0-1); Eosinophil# 0.13 X10^3/uL; Eosinophils% 1.6 % (0-5); Hematocrit 40.9 % (40-54); Hemoglobin 13.9 g/dL (13.0-16.5); Lymphocyte # 1.48 X10^3/ul (0.83-4.51); Lymphocyte % 18.4 % (19-41); Mean Corpuscular Hgb 28.8 pg (27.0-32.0); Mean Corpuscular Volume 84.7 fL (80-94); Mean Platelet Vol. 10.3 fl (6.2-12.0); Monocyte# 0.71 X10^3/uL; Monocyte% 8.8 % (0-10); NRBC Flagged by Analyzer 0 % (0-5); Neutrophil # 5.65 X10^3/uL (2.7-7.7); Neutrophil % 70.4 % (47-70); Platelet Count 229 K/mm3 (150-450); RBC Distribution Width CV 12.4 % (11.6-14.6); RBC Distribution Width SD 37.5 fl (35.1-43.9); Red Blood Count 4.83 M/mm3 (4.6-6.2)
[2022-05-16 07:56] LABS: Hemoglobin A1c 8.7 % (3.8-5.6)
[2022-05-16 08:01] LABS: Anion Gap 7 (5-15); BUN 14 mg/dL (7-18); Calcium,Total 9.1 mg/dL (8.5-10.1); Chloride 108 mmol/L (98-107); Cholesterol 173 mg/dL (200); Creatinine, Serum 1.02 mg/dL (0.70-1.30); EST Glomerular Filtration Rate 78 mL/min (>60); Est Glom Filt Rate - Afr Amer 94 mL/min (>60); Glucose 115 mg/dL (74-106); High Density Lipoprotein 44 mg/dL; Magnesium 1.7 mg/dL (1.6-2.6); Phosphorus 3.7 mg/dL (2.5-4.9); Potassium 3.7 mmol/L (3.5-5.1); Sodium Level 141 mmol/L (136-145); Triglycerides 142 mg/dL; Very Low Density Lipoprotein 28 mg/dL (5-40)
[2022-05-20 10:28] LABS: Tacrolimus (FK506) 5.9 ng/mL (2.0-20.0)
== END 2022-06-06 18:00 | disposition home or self-care (01) ==
LOC: LAB 05:58
PROVIDERS: PCP Family Medicine; Referring Provider Internal Medicine Nephrology; Visit Provider Internal Medicine Nephrology
DX: D84.9 Immunodeficiency, unspecified (principal); R79.9 Abnormal finding of blood chemistry, unspecified; Z79.899 Other long term (current) drug therapy; Z94.0 Kidney transplant status; Z48.298 Encounter for aftercare following other organ transplant
CPT/HCPCS: 36415; 80051; 80061; 80197; 82310; 82565; 82947; 83036; 83735; 84100; 84520; 85025

== ENCOUNTER 2022-07-18 06:02 | Outpatient (RCR) | payer MEDICARE, SELFPAY ==
[2022-06-07 00:40] VITALS: BMI 30.8
[2022-07-18 06:27] LABS: Absolute Neutrophil Count 5.4 X10^3/uL (2.0-7.7); Basophil# 0.05 X10^3/uL; Basophil% 0.6 % (0-1); Eosinophil# 0.13 X10^3/uL; Eosinophils% 1.6 % (0-5); Hemoglobin 14.2 g/dL (13.0-16.5); Lymphocyte % 19.9 % (19-41); Mean Corpuscular Hgb 28.5 pg (27.0-32.0); Mean Corpuscular Volume 86.2 fL (80-94); Mean Platelet Vol. 9.8 fl (6.2-12.0); Monocyte# 0.79 X10^3/uL; Monocyte% 9.8 % (0-10); NRBC Flagged by Analyzer 0 % (0-5); Neutrophil # 5.42 X10^3/uL (2.7-7.7); Neutrophil % 67.6 % (47-70); Platelet Count 277 K/mm3 (150-450); RBC Distribution Width CV 12.8 % (11.6-14.6); RBC Distribution Width SD 39.6 fl (35.1-43.9); Red Blood Count 4.99 M/mm3 (4.6-6.2)
[2022-07-18 06:50] LABS: Anion Gap 6 (5-15); BUN 20 mg/dL (7-18); Calcium,Total 9.4 mg/dL (8.5-10.1); Chloride 111 mmol/L (98-107); Creatinine, Serum 1.32 mg/dL (0.70-1.30); EST Glomerular Filtration Rate 58 mL/min (>60); Est Glom Filt Rate - Afr Amer 70 mL/min (>60); Glucose 125 mg/dL (74-106); Phosphorus 3.8 mg/dL (2.5-4.9); Potassium 3.9 mmol/L (3.5-5.1); Sodium Level 142 mmol/L (136-145)
[2022-07-22 11:26] LABS: Tacrolimus (FK506) 6.7 ng/mL (2.0-20.0)
== END 2022-07-18 18:00 | disposition home or self-care (01) ==
LOC: LAB 06:02
PROVIDERS: PCP Family Medicine; Referring Provider Internal Medicine Nephrology; Visit Provider Internal Medicine Nephrology
DX: D84.9 Immunodeficiency, unspecified (principal); R79.9 Abnormal finding of blood chemistry, unspecified; Z79.899 Other long term (current) drug therapy; Z94.0 Kidney transplant status; Z48.298 Encounter for aftercare following other organ transplant
CPT/HCPCS: 36415; 80051; 80197; 82310; 82565; 82947; 83735; 84100; 84520; 85025

== ENCOUNTER 2022-09-05 05:57 | Outpatient (RCR) | payer MEDICARE, SELFPAY ==
[2022-08-08 08:39] VITALS: BMI 30.8
[2022-09-05 07:37] LABS: Absolute Lymphocyte Count 1.49 X10^3/uL (0.83-4.51); Basophil# 0.06 X10^3/uL; Basophil% 0.8 % (0-1); Eosinophil# 0.15 X10^3/uL; Hematocrit 41.3 % (40-54); Hemoglobin 13.4 g/dL (13.0-16.5); Lymphocyte # 1.49 X10^3/ul (0.83-4.51); Lymphocyte % 19.9 % (19-41); Mean Corp Hgb Conc 32.4 g/dL (32-36); Mean Corpuscular Volume 86.4 fL (80-94); Mean Platelet Vol. 10.4 fl (6.2-12.0); Monocyte% 10.7 % (0-10); NRBC Flagged by Analyzer 0 % (0-5); Neutrophil # 4.95 X10^3/uL (2.7-7.7); Neutrophil % 66.1 % (47-70); Platelet Count 236 K/mm3 (150-450); RBC Distribution Width CV 12.9 % (11.6-14.6); RBC Distribution Width SD 40.4 fl (35.1-43.9); Red Blood Count 4.78 M/mm3 (4.6-6.2); White Blood Count 7.5 K/mm3 (4.4-11.0)
[2022-09-05 08:31] LABS: Anion Gap 7 (5-15); BUN 17 mg/dL (7-18); Calcium,Total 9.3 mg/dL (8.5-10.1); Chloride 110 mmol/L (98-107); EST Glomerular Filtration Rate 64 mL/min (>60); Est Glom Filt Rate - Afr Amer 78 mL/min (>60); Glucose 138 mg/dL (74-106); Magnesium 1.7 mg/dL (1.6-2.6); Phosphorus 3.7 mg/dL (2.5-4.9); Potassium 3.8 mmol/L (3.5-5.1); Sodium Level 142 mmol/L (136-145)
[2022-09-08 12:21] LABS: Tacrolimus (FK506) 5.6 ng/mL (2.0-20.0)
== END 2022-10-05 23:17 | disposition home or self-care (01) ==
LOC: LAB 05:57
PROVIDERS: PCP Family Medicine; Referring Provider Internal Medicine Nephrology; Visit Provider Internal Medicine Nephrology
DX: D84.9 Immunodeficiency, unspecified (principal); R79.9 Abnormal finding of blood chemistry, unspecified; Z79.899 Other long term (current) drug therapy; Z94.0 Kidney transplant status; Z48.298 Encounter for aftercare following other organ transplant; E11.49 Type 2 diabetes mellitus with other diabetic neurological complication; E11.3391 Type 2 diabetes mellitus with moderate nonproliferative diabetic retinopathy without macular edema, right eye; Z79.4 Long term (current) use of insulin; E78.5 Hyperlipidemia, unspecified; D50.9 Iron deficiency anemia, unspecified
CPT/HCPCS: 36415; 80051; 80197; 82310; 82565; 82947; 83735; 84100; 84520; 85025

== ENCOUNTER 2022-11-02 05:25 | Day surgery (SDC) | payer MEDICARE, SELFPAY ==
[2022-11-02 05:54] VITALS: BP 141/59; PULSE 58; RESP 18; TEMP 36.1; O2SAT 100; BMI 27.2
[2022-11-02] MEDS: Lactated Ringers 1,000 ML 15 ML IV (06:04)
[2022-11-02 06:10] LABS: Bedside Glucose 125 mg/dL (74-106)
--- NOTE | 2022-11-02 06:12 | HP.PCM_ITS ---
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: No Accompanied by: Is patient in pain?: No Allergies metformin Allergy (Verified 09/27/22 14:10) ItchingSulfa (Sulfonamide Antibiotics) Allergy (Verified 09/27/22 14:10) Swelling Medications finasteride 5 mg tablet (Proscar) 5 mg PO DAILY PROSTATE 07/10/17 [History Confirmed 09/27/22] rosuvastatin 10 mg tablet (Crestor) 10 mg PO DAILY CHOLESTEROL 07/10/17 [History Confirmed 09/27/22] ergocalciferol (vitamin D2) 1,250 mcg (50,000 unit) capsule 50,000 unit PO QMONTH VITAMIN 08/19/17 [History Confirmed 09/27/22] aspirin 81 mg tablet,delayed release (Enteric Coated Aspirin) 81 mg PO DAILY 09/27/22 [History Confirmed 09/27/22] insulin glargine 100 unit/mL (3 mL) subcutaneous pen (Lantus Solostar U-100 Insulin) 30 unit subcut QPM 09/27/22 [History Confirmed 09/27/22] insulin lispro 100 unit/mL subcutaneous pen (Humalog KwikPen (U-100) Insulin) 16 unit subcut BID 09/27/22 [History Confirmed 09/27/22] labetalol 100 mg tablet 150 mg PO BID 09/27/22 [History Confirmed 09/27/22] mycophenolate sodium 360 mg tablet,delayed release 720 mg PO Q12H 09/27/22 [History Confirmed 09/27/22] nifedipine 60 mg tablet,extended release 24 hr 30 mg PO DAILY 09/27/22 [History Confirmed 09/27/22] tacrolimus 1 mg tablet,extended release 24 hr (Envarsus XR) 1 mg PO DAILY 09/27/22 [History Confirmed 09/27/22] Current gender identity: male [facility] Medical History?(Updated 09/27/22 @ 14:[address] Benjamín Espino MD) Anemia AV fistula stenosis Blister (nonthermal), right great toe, initial encounter BPH (benign prostatic hyperplasia) Chronic anemia Diabetic foot ulcer associated with type 2 diabetes mellitus End-stage renal disease on hemodialysis Essential hypertension Hallux limitus of right foot Hypercholesterolemia Malnutrition Open fracture at right wrist or hand level Pressure ulcer, stage II Problem with dialysis access Screening for intestinal cancer Symptomatic bradycardia Type 2 diabetes mellitus with diabetic polyneuropathy Ulcer of right second toe with fat layer exposed Surgical History? History of angioplasty of peripheral vessel History of colonoscopy History of left heart catheterization (05/01/19) Presence of surgically created arteriovenous shunt for hemodialysis Family History? Mother Diabetes Hypertension Heart disease Cancer ?? ? lungBrother DiabetesFather Diabetes Cancer ?? ? pancreasOther CAD (coronary artery disease) CVA (cerebral vascular accident) Kidney disease Social History?(Updated 09/03/19 @ 11:15 by Jazlyn REICH PAYash) current gender identity:? male Smoking Status:? Former smoker HPI HPI HPI: 67-year-old gentleman with chronic renal disease who we have helped extensively in the past with fistula creation and maintenance.? He now has a renal transplant.? He presents now because of a recall letter for colonoscopy. September 30, 2017 I performed a colonoscopy for him as screening.? I removed a sessile polyp in the proximal transverse colon.? He also had sigmoid diverticulosis.? Patient did have a tortuous left colon.? In addition had a small polyp at the splenic flexure.? The proximal transverse colon was an inflammatory polyp in the splenic flexure polyp with tubular adenoma. He was on hemodialysis at that time since that time he has had a renal transplant in the right lower quadrant.? He is on rejection medication. He is intentionally lost weight.? No bright red blood per rectum or melena.? He does try to walk routinely ROS General General: No weight change, appetite, fatigue, colon cancer, breast cancer or weakness HEENT HEENT: No difficulty swallowing, eye injury, eye surgery, swollen glands or hoarseness Endo Endocrine: Yes diabetes mellitus; No thyroid disease, thyroid cancer, Hair loss, heat intolerance or cold intoler ance Skin Skin: No rash or changing moles Breast Breast: No left breast lump, right breast lump, nipple discharge, breast pain, abnormal mammogram, abnormal US or breast enlargement Musc Musculoskeletal: Yes arthritis; No back problems, rheumatoid arthritis, gout or joint pain Cardio Cardiovascular: Yes high blood pressure; No murmur, pacemaker, heart disease, atrial fibrillation, heart attack, heart stent, palpitations, shortness of breat with exertion or chest pain Gastro Gastrointestinal: No abdominal pain, No nausea or vomiting, No diarrhea, No constipation, No blood in stool, No acid reflux, No hemorrhoids, No ulcers, No gallbladder problem and No black,tarry stools Ryder Hematologic: No blood thinners, No blood disorders, No bleeding, No anemia and No blood clots Neuro Neurologic: No system reviewed and no additional complaints, except as documented, No as per HPI, No abnormal gait, No abnormal hearing, No abnormal movements, No abnormal speech, No behavioral changes, No burning sensations, No confusion, No convulsions, No disequilibrium, No dizziness, No localized weakness, No frequent falls, No headache(s), No lack of coordination, No loss of vision, No memory loss, No numbness, No other visual disturbances, No radicular pain, No restless legs, No sensory deficit, No syncope, No tingling, No tremor(s), No weakness and No other Exam Const General: cooperative, comfortable and no acute distress Nutritional Appearance: average body habitus Other: Diffuse gross tremors noted [facility] Head: normal to inspection Eyes General: appearance normal, both eyes and all related structures Neck Neck: normal visual inspection Chest Chest palpation & inspection: normal inspection of the chest Resp Effort & Inspection: normal respiratory effort Auscultation: clear to auscultation bilaterally Cardio Rate: regular rate Rhythm: regular rhythm GI Palpation: soft and no hepatosplenomegaly Auscultation: normal bowel sounds Other: Healed oblique incision right lower quadrant with palpable transplanted kidney.? Nontender Musc Cervical Spine: normal cervical lordosis Skin General: no rashes or lesions noted Neuro General: patient alert, patient awake and patient oriented x3 Extrem General: no calf tenderness Psych Appearance: grossly normal Assessment and Plan Assessment and Plan (1) Personal history of colonic polyps: ?Status:?Acute ?Plan: I recommended the patient a colonoscopy with possible biopsy or polypectomy as indicated.? We will arrange this to be first case of the day so he does not miss his rejection medications.? We will be very cautious with abdominal support and palpation and respecting the kidney and the right lower quadrant.? Because of his medical comorbidities we will use monitored anesthesia care. He has had an opportunity to ask and have questions answered.? We will schedule and proceed at his discretion. Copy: Dr. Alo Espino M.D., F.Fide.S \I have examined the patient and the H&P has been reviewed. There are no cl inical changes since date of exam. Benjamín Espino M.D., [email or web address].S.
--- NOTE | 2022-11-02 06:30 | COLBX_PTH ---
PATIENT: RODRI HECK LOC: EN U#:[id number] AGE/SX: 67/M ROOM: RE11/02/[address]: Dr. Benjamín Espino MD : 1955 BED: DIS: 11/02/2022 SPEC #: [id number] RECD: 11/02/22 13:57 STATUS: JOSIE ANDRADE #: [id number] MOE: 11/02/22 06:[address]: Benjamín Espino DEPT: SURGICAL PATHOLOGY RECD BY: Dara Foreman ENTERED: 11/02/22 13:58 SP TYPE: COLON BX OTHR DR: Dr. Alo Goddard MD Tissues: Transverse colon Procedures: Surgery Specimen Level IV HEADER OPERATION: Colonoscopy (MAC) PRE-OP DIAGNOSIS: History of colonic polyps TISSUE SUBMITTED: Biopsy polyp mid transverse MICROSCOPIC DIAGNOSIS Mid transverse colon polyp, biopsy: Polypoid fragment of benign colonic mucosa. See comment. AM:ignacia 11/05/2022 COMMENT Neither hyperplastic nor adenomatous change is identified. Clinical correlation is suggested. MICROSCOPIC DESCRIPTION Slides are reviewed. GROSS DESCRIPTION Received in fixative is one container labeled with the patient's name and designated biopsy polyp mid transverse. The specimen consists of one irregular fragment of light gamble soft tissue that measures 0.4 x 0.3 x 0.1 cm. The specimen is totally submitted in one cassette. / SJ:ignacia 11/02/2022 TC:5 CPT: 54970
[2022-11-02 06:51] VITALS: BP 111/45; BP 145/59; PULSE 52; RESP 16; TEMP 36.2; O2SAT 98
--- NOTE | 2022-11-02 06:53 | OP.COLON_ITS ---
Patient Name: Bola Gale Procedure Date: 11/02/2022 6:20 AM Date of : 1955 Age: 67 Procedure: Colonoscopy Indications: High risk colon cancer surveillance: Personal history of colonic polyps Providers: Benjamín Espino MD Referring MD: Benjamín Espino MD Medicines: See the Anesthesia note for documentation of the administered medications Patient Profile: Last Colonoscopy: September 2017. Complications: No immediate complications. Procedure: Pre-Anesthesia Assessment: - Prior to the procedure, a History and Physical was performed, and patient medications and allergies were reviewed. The patient's tolerance of previous anesthesia was also reviewed. The risks and benefits of the procedure and the sedation options and risks were discussed with the patient. All questions were answered, and informed consent was obtained. Prior Anticoagulants: The patient has taken no previous anticoagulant or antiplatelet agents. ASA Grade Assessment: III - A patient with severe systemic disease. After reviewing the risks and benefits, the patient was deemed in satisfactory condition to undergo the procedure. After I obtained informed consent, the scope was passed under direct vision. Throughout the procedure, the patient's blood pressure, pulse, and oxygen saturations were monitored continuously. The adult colonoscope was introduced through the anus and advanced to the cecum, identified by appendiceal orifice and ileocecal valve. The colonoscopy was performed without difficulty. The patient tolerated the procedure well. The quality of the bowel preparation was adequate to identify polyps 6 mm and larger in size. The ileocecal valve and the appendiceal orifice were photographed. Scope In: 6:29:33 AM Scope Withdrawal Time 0 hours 12 minutes 33 seconds Scope Out: 6:47:34 AM Total Procedure Duration Time 0 hours 18 minutes 1 second Findings: The digital rectal exam findings include non-thrombosed internal hemorrhoids and internal hemorrhoids that prolapse with straining, but spontaneously regress to the resting position (Grade II). Pertinent negatives include normal prostate (size, shape, and consistency). A 3 mm polyp was found in the mid transverse colon. The polyp was sessile. The polyp was removed with a cold biopsy forceps. Resection and retrieval were complete. Scattered diverticula were found in the sigmoid colon. Impression: - Non-thrombosed internal hemorrhoids and internal hemorrhoids that prolapse with straining, but spontaneously regress to the resting position (Grade II) found on digital rectal exam. - One 3 mm polyp in the mid transverse colon, removed with a cold biopsy forceps. Resected and retrieved. - Diverticulosis in the sigmoid colon. Recommendation: - Discharge patient to home. - Resume previous diet. - Continue present medications. - Repeat colonoscopy in 5 years for surveillance based on pathology results. - Telephone my office for pathology results in 1 week. Procedure Code(s): --- Professional --- 59032, Colonoscopy, flexible; with biopsy, single or multiple Diagnosis Code(s): --- Professional --- Z86.010, Personal history of colonic polyps K64.1, Second degree hemorrhoids D12.3, Benign neoplasm of transverse colon (hepatic flexure or splenic flexure) K57.30, Diverticulosis of large intestine without perforation or abscess without bleeding CPT copyright 2017 [employer]. All rights reserved. The codes documented in this report are preliminary and upon recovery rn review may be revised to meet current compliance requirements. Benjamín Espino MD 11/02/2022 6:52:17 AM This report has been signed electronically. Number of Addenda: 0 Note Initiated On: 11/02/2022 6:20 AM
--- NOTE | 2022-11-02 06:53 | OP.CCLET_ITS ---
11/02/2022 Alo Goddard MD Re : Colonoscopy procedure for Bola Gale Dear Dr. Goddard This procedure was performed on Wednesday, November 02, 2022. My impressions and recommendations are as follows: Impressions : - Non-thrombosed internal hemorrhoids and internal hemorrhoids that prolapse with straining, but spontaneously regress to the resting position (Grade II) found on digital rectal exam. - One 3 mm polyp in the mid transverse colon, removed with a cold biopsy forceps. Resected and retrieved. - Diverticulosis in the sigmoid colon. Recommendations : - Discharge patient to home. - Resume previous diet. - Continue present medications. - Repeat colonoscopy in 5 years for surveillance based on pathology results. - Telephone my office for pathology results in 1 week. My findings are described in the full procedure note, which is enclosed. If I can be of further assistance, please feel free to contact me at Doctor phone number(s): Work: . Sincerely, Benjamín Espino MD 11/02/2022 6:52:17 AM This report has been signed electronically.
[2022-11-02 06:55] VITALS: BP 109/46; BP 145/59; PULSE 51; RESP 16; O2SAT 97
[2022-11-02 07:01] VITALS: BP 117/61; BP 145/59; PULSE 64; RESP 16; O2SAT 96
[2022-11-02 07:05] VITALS: BP 120/59; BP 145/59; PULSE 53; RESP 16; TEMP 36.9; O2SAT 99
[2022-11-02 07:07] VITALS: BP 145/59
== END 2022-11-02 07:24 | disposition home or self-care (01) ==
LOC: EN 05:25 → AC 05:26
PROVIDERS: PCP Family Medicine; Referring Provider Surgery; Visit Provider Surgery
PROC: 0DJD8ZZ Inspection of Lower Intestinal Tract, Via Natural or Artificial Opening Endoscopic (ICD-10-PCS; CPT 45378; principal; 2022-11-02 06:25)
DX: Z12.11 Encounter for screening for malignant neoplasm of colon (principal); Z99.2 Dependence on renal dialysis; E11.42 Type 2 diabetes mellitus with diabetic polyneuropathy; E11.22 Type 2 diabetes mellitus with diabetic chronic kidney disease; N18.6 End stage renal disease; I12.0 Hypertensive chronic kidney disease with stage 5 chronic kidney disease or end stage renal disease; K57.30 Diverticulosis of large intestine without perforation or abscess without bleeding; Z86.010 Personal history of colon polyps; Z87.891 Personal history of nicotine dependence; K64.1 Second degree hemorrhoids; E78.00 Pure hypercholesterolemia, unspecified; Z79.899 Other long term (current) drug therapy
CPT/HCPCS: 45380; 82962; 88305; J7120; J2405

== ENCOUNTER 2022-11-07 05:59 | Outpatient (RCR) | payer MEDICARE, SELFPAY ==
[2022-10-05 23:18] VITALS: BMI 30.8
[2022-11-07 07:13] LABS: Absolute Lymphocyte Count 1.47 X10^3/uL (0.83-4.51); Absolute Neutrophil Count 4.6 X10^3/uL (2.0-7.7); Basophil# 0.06 X10^3/uL; Basophil% 0.8 % (0-1); Eosinophil# 0.14 X10^3/uL; Hematocrit 40.3 % (40-54); Hemoglobin 13.1 g/dL (13.0-16.5); Lymphocyte # 1.47 X10^3/ul (0.83-4.51); Lymphocyte % 20.8 % (19-41); Mean Corp Hgb Conc 32.5 g/dL (32-36); Mean Corpuscular Hgb 28.4 pg (27.0-32.0); Mean Corpuscular Volume 87.2 fL (80-94); Mean Platelet Vol. 10.4 fl (6.2-12.0); Monocyte# 0.81 X10^3/uL; Monocyte% 11.5 % (0-10); NRBC Flagged by Analyzer 0 % (0-5); Neutrophil # 4.57 X10^3/uL (2.7-7.7); Neutrophil % 64.6 % (47-70); Platelet Count 248 K/mm3 (150-450); RBC Distribution Width CV 12.8 % (11.6-14.6); RBC Distribution Width SD 40.2 fl (35.1-43.9); Red Blood Count 4.62 M/mm3 (4.6-6.2); White Blood Count 7.1 K/mm3 (4.4-11.0)
[2022-11-07 07:31] LABS: Anion Gap 7 (5-15); BUN 15 mg/dL (7-18); Calcium,Total 9.3 mg/dL (8.5-10.1); Chloride 112 mmol/L (98-107); Creatinine, Serum 1.22 mg/dL (0.70-1.30); EST Glomerular Filtration Rate 63 mL/min (>60); Est Glom Filt Rate - Afr Amer 76 mL/min (>60); Glucose 87 mg/dL (74-106); Magnesium 1.9 mg/dL (1.6-2.6); Phosphorus 3.3 mg/dL (2.5-4.9); Potassium 3.8 mmol/L (3.5-5.1); Sodium Level 143 mmol/L (136-145)
== END 2022-11-07 07:00 | disposition home or self-care (01) ==
LOC: LAB 05:59
PROVIDERS: PCP Family Medicine; Referring Provider Internal Medicine Nephrology; Visit Provider Internal Medicine Nephrology
DX: D84.9 Immunodeficiency, unspecified (principal); R79.9 Abnormal finding of blood chemistry, unspecified; Z79.899 Other long term (current) drug therapy; Z94.0 Kidney transplant status; Z48.298 Encounter for aftercare following other organ transplant; Z79.4 Long term (current) use of insulin; E78.5 Hyperlipidemia, unspecified; D50.9 Iron deficiency anemia, unspecified
CPT/HCPCS: 36415; 80051; 80197; 82310; 82565; 82947; 83735; 84100; 84520; 85025

== ENCOUNTER → 2022-11-28 | Outpatient (CLI) | payer MEDICARE, SELFPAY ==
[2022-11-28 06:14] LABS: Mucous, Urine 0 SEEN /hpf (<or=2+); Red Blood Cells-Urine 0 SEEN /hpf (0-5)
[2022-11-28 07:20] LABS: Color, Urine Yellow (Yellow); Glucose, Dipstick Normal (Normal); Ketone-Dipstick Negative (Negative); Leukocyte Esterase-Dipstick 25 /ul (Negative); Nitrite-Dipstick Negative (Negative); Occult Blood-Urine Negative /ul (Negative); Protein-Dipstick 30 mg/dl (Negative); Specific Gravity, Urine 1.015 (1.002-1.030); Urine Bilirubin Dipstick Negative (Negative); Urine Clarity Clear (Clear); Urine Urobilinogen Normal (Normal)
[2022-11-28 07:21] LABS: Absolute Lymphocyte Count 1.49 X10^3/uL (0.83-4.51); Absolute Neutrophil Count 5.8 X10^3/uL (2.0-7.7); Basophil# 0.06 X10^3/uL; Basophil% 0.7 % (0-1); Eosinophil# 0.12 X10^3/uL; Eosinophils% 1.4 % (0-5); Hematocrit 41.1 % (40-54); Lymphocyte # 1.49 X10^3/ul (0.83-4.51); Lymphocyte % 17.9 % (19-41); Mean Corp Hgb Conc 31.6 g/dL (32-36); Mean Corpuscular Volume 88.4 fL (80-94); Mean Platelet Vol. 10.5 fl (6.2-12.0); Monocyte% 9.6 % (0-10); NRBC Flagged by Analyzer 0 % (0-5); Neutrophil # 5.84 X10^3/uL (2.7-7.7); Neutrophil % 70.2 % (47-70); Platelet Count 272 K/mm3 (150-450); RBC Distribution Width CV 12.8 % (11.6-14.6); RBC Distribution Width SD 41.5 fl (35.1-43.9); Red Blood Count 4.65 M/mm3 (4.6-6.2); White Blood Count 8.3 K/mm3 (4.4-11.0)
[2022-11-28 07:28] LABS: Bacteria 1+ /hpf (None Seen); Squamous Epithelial Cells - UA 0-5 SEEN /hpf (0-5); White Blood Cells 0-5 SEEN /hpf (0-5)
[2022-11-28 07:47] LABS: Microalbumin:Creatinine Ratio 47.8 mg/g CRE (<30 mg/g CRE)
[2022-11-28 08:24] LABS: Vitamin D,25 Hydroxy 48.8 ng/mL
[2022-11-28 08:25] LABS: ALB/GLOB Ratio 1.2 RATIO (0.9-2.4); AST(SGOT) 19 U/L (15-37); Alanine Aminotransfer ALT/SGPT 19 U/L (16-61); Albumin, Serum 3.8 g/dL (3.2-5.0); Alkaline Phosphatase 55 U/L (45-117); Anion Gap 9 (5-15); BUN 14 mg/dL (7-18); BUN/Creat Ratio 13.1 RATIO (10-20); Calcium,Total 8.9 mg/dL (8.5-10.1); Chloride 114 mmol/L (98-107); Cholesterol 174 mg/dL (200); Creatinine, Serum 1.07 mg/dL (0.70-1.30); EST Glomerular Filtration Rate 73 mL/min (>60); Est Glom Filt Rate - Afr Amer 89 mL/min (>60); Globulin 3.2 g/dL (2.2-4.2); Glucose 111 mg/dL (74-106); High Density Lipoprotein 43 mg/dL; PSA,Total - Annual Screen 2.37 ng/mL (0.00-4.00); Potassium 4.1 mmol/L (3.5-5.1); Sodium Level 145 mmol/L (136-145); Triglycerides 116 mg/dL; Very Low Density Lipoprotein 23 mg/dL (5-40)
== END | disposition home or self-care (01) ==
LOC: LAB 05:56
PROVIDERS: Physician Assistant; PCP Family Medicine; Referring Provider Family Medicine; Visit Provider Family Medicine
DX: E11.22 Type 2 diabetes mellitus with diabetic chronic kidney disease (principal); Z79.4 Long term (current) use of insulin; I12.9 Hypertensive chronic kidney disease with stage 1 through stage 4 chronic kidney disease, or unspecified chronic kidney disease; N18.2 Chronic kidney disease, stage 2 (mild); E78.2 Mixed hyperlipidemia; E55.9 Vitamin D deficiency, unspecified; N29 Other disorders of kidney and ureter in diseases classified elsewhere
CPT/HCPCS: 36415; 80053; 80061; 81001; 82043; 82306; 82570; 83036; 84153; 85025; G0103

== ENCOUNTER 2023-01-03 11:01 | Inpatient (IN) | payer MEDICARE, SELFPAY ==
[2023-01-03] VITALS (8 sets, daily range): BP systolic 144–164; BP diastolic 56–105; PULSE 67–75; RESP 16–27; TEMP 36.6–38.2; O2SAT 94–100; BMI 27.8; BMI 27.5
--- NOTE | 2023-01-03 11:19 | EKG12_ITS ---
Test Reason : GENERAL Blood Pressure : / mmHG Vent. Rate : 075 BPM Atrial Rate : 075 BPM P-R Int : 174 ms QRS Dur : 090 ms QT Int : 376 ms P-R-T Axes : 061 025 014 degrees QTc Int : 419 ms Normal sinus rhythm Nonspecific T wave abnormality Abnormal ECG Confirmed by LEONARDO LYNCH, AMPARO ([id number]), makeup editor MARTHA MERAZ ([id number]) on 01/07/2023 12:51:04 PM Referred By: Confirmed By:AMPARO PATTERSON MD
--- NOTE | 2023-01-03 11:19 | RAD_ITS ---
STUDY: X-RAY CHEST REASON FOR EXAM: Male, 67 years old. Cough TECHNIQUE: Single AP portable view of the chest. COMPARISON: Comparison is made with prior study dated April 29, 2019. FINDINGS: EKG electrodes are seen. The lungs are clear and expanded. There is no demonstrated pleural abnormality. There is borderline cardiomegaly. Normal mediastinum and nader. Normal visualized pulmonary arteries. There is atherosclerotic tortuosity of the aortic arch and descending thoracic aorta. There are diffuse degenerative changes of the visualized thoracic spine. Normal visualized ribs, clavicles, and shoulders. There is no demonstrated abnormality of the visualized soft tissue structures of the upper abdomen. RAD/Chest 1 View (Portable) IMPRESSION: Borderline cardiomegaly. The lungs are clear. Electronically Signed: Yamil Hsu MD at 12:27 EDT ,
--- NOTE | 2023-01-03 11:23 | RAD_ITS ---
STUDY: X-RAY - RIGHT FOOT CLINICAL: Male, 67 years old. Wound to the bottom of the fifth toe at the level of the fifth metatarsal joint. TECHNIQUE: 3 view(s) of the foot. COMPARISON: None. FINDINGS: Normal talus, calcaneus, and tarsal bones. Normal visualized subtalar, talonavicular, calcaneocuboid, tarsal and tarsometatarsal articulations. Normal metatarsi. Normal metatarsophalangeal joint of the great toe. There is a bipartite tibial sesamoid. Normal interphalangeal joint of the great toe. Well-defined lytic abnormality at the base of the possible findings of the great toe suggestive of possible gouty arthritis. Normal second through fifth metatarsophalangeal joints. Soft tissue swelling overlying the fifth metatarsophalangeal joint with mild degree of periarticular osteophyte P . Air is seen within the soft tissues suggestive of ulceration. RAD/Foot min 3 Views IMPRESSION: Findings suggestive of possible osteomyelitis of the fifth metatarsophalangeal joint with overlying soft tissue swelling. Small amount of air is seen within the soft tissues. Electronically Signed: Yamil Hsu MD at 12:28 EDT ,
[2023-01-03 11:35] LABS: Absolute Lymphocyte Count 0.89 X10^3/uL (0.83-4.51); Absolute Neutrophil Count 13.8 X10^3/uL (2.0-7.7); Basophil# 0.05 X10^3/uL; Basophil% 0.3 % (0-1); Differential Indicated SCAN CRITERIA MET; Eosinophil# 0.02 X10^3/uL; Eosinophils% 0.1 % (0-5); Hematocrit 35.9 % (40-54); Hemoglobin 11.8 g/dL (13.0-16.5); Lymphocyte # 0.89 X10^3/ul (0.83-4.51); Lymphocyte % 5.3 % (19-41); Mean Corp Hgb Conc 32.9 g/dL (32-36); Mean Corpuscular Hgb 28.4 pg (27.0-32.0); Mean Corpuscular Volume 86.3 fL (80-94); Monocyte# 1.82 X10^3/uL; Monocyte% 10.9 % (0-10); NRBC Flagged by Analyzer 0 % (0-5); Neutrophil # 13.78 X10^3/uL (2.7-7.7); Neutrophil % 82.9 % (47-70); POSITIVE DIFFERENTIAL YES; Platelet Count 251 K/mm3 (150-450); RBC Distribution Width CV 12.6 % (11.6-14.6); RBC Distribution Width SD 39.6 fl (35.1-43.9); Red Blood Count 4.16 M/mm3 (4.6-6.2); White Blood Count 16.7 K/mm3 (4.4-11.0)
[2023-01-03 11:44] LABS: International Normalized Ratio 1.1; Partial Thromboplast Time 27.6 Seconds (24.1-36.2); Prothrombin Time (Protime)PT. 14.1 SECONDS (11.7-14.9)
[2023-01-03 11:51] LABS: ALB/GLOB Ratio 1.1 RATIO (0.9-2.4); AST(SGOT) 13 U/L (15-37); Alanine Aminotransfer ALT/SGPT 14 U/L (16-61); Albumin, Serum 3.8 g/dL (3.2-5.0); Alkaline Phosphatase 58 U/L (45-117); Anion Gap 9 (5-15); BUN 20 mg/dL (7-18); BUN/Creat Ratio 14.6 RATIO (10-20); Calcium,Total 9.1 mg/dL (8.5-10.1); Chloride 104 mmol/L (98-107); Creatinine, Serum 1.37 mg/dL (0.70-1.30); EST Glomerular Filtration Rate 55 mL/min (>60); Est Glom Filt Rate - Afr Amer 67 mL/min (>60); Estimated Creatinine Clearance 54.02 ml/min; Globulin 3.6 g/dL (2.2-4.2); Glucose 185 mg/dL (74-106); Protein, Total 7.4 g/dL (6.4-8.2); Sodium Level 137 mmol/L (136-145)
--- NOTE | 2023-01-03 11:52 | EDS_ITS ---
HPI History of Present Illness Chief Complaint: Lower Extremity Injury [facility] Medical History (Updated 01/03/23 @ 14:48 by Ratna Pena) Alcohol use Anemia Arthritis AV fistula stenosis Back pain Blister (nonthermal), right great toe, initial encounter BPH (benign prostatic hyperplasia) Cardiology follow-up encounter Chronic anemia Diabetes Diabetic foot ulcer associated with type 2 diabetes mellitus Dialysis patient Dietary restriction End-stage renal disease on hemodialysis Essential hypertension Hallux limitus of right foot High cholesterol History of echocardiogram History of edema History of pain when walking History of rheumatic fever History of stress test Hypercholesterolemia Insulin dependent diabetes mellitus Kidney disease Leg cramps Loss of hearing Malnutrition Open fracture at right wrist or hand level Restless legs Rheumatoid arthritis Screening for intestinal cancer Symptomatic bradycardia Type 2 diabetes mellitus with diabetic polyneuropathy Ulcer of right second toe with fat layer exposed Wears glasses Home Medications finasteride 5 mg tablet (Proscar) 5 mg PO DAILY PROSTATE 07/10/17 [History Last Taken 01/03/23] rosuvastatin 10 mg tablet (Crestor) 10 mg PO DAILY CHOLESTEROL 07/10/17 [History Last Taken 01/03/23] aspirin 81 mg tablet,delayed release (Enteric Coated Aspirin) 81 mg PO DAILY 09/27/22 [History Last Taken 01/03/23] insulin glargine 100 unit/mL (3 mL) subcutaneous pen (Lantus Solostar U-100 Insulin) 25 unit subcut QPM 09/27/22 [History Last Taken 01/02/23] labetalol 100 mg tablet 150 mg PO BID 09/27/22 [History Last Taken 01/03/23] mycophenolate sodium 360 mg tablet,delayed release 720 mg PO Q12H 09/27/22 [History Last Taken 01/03/23] tacrolimus 1 mg tablet,extended release 24 hr (Envarsus XR) 1 mg PO DAILY 09/27/22 [History Last Taken 01/03/23] cholecalciferol (vitamin D3) 50 mcg (2,000 unit) tablet (Vitamin D3) 50 mcg PO DAILY 10/29/22 [History Last Taken 01/03/23] insulin aspart U-100 100 unit/mL (3 mL) subcutaneous pen (Novolog FlexPen U-100 Insulin aspart) 8 unit subcut TIDCM DM 10/29/22 [History Last Taken 01/03/23] nifedipine 30 mg tablet,extended release 24 hr 30 mg PO DAILY HEART 01/03/23 [History Last Taken 01/03/23] Allergy/AdvReac Type Severity Reaction Status Date / Time metformin Allergy Itching Verified 01/03/23 14:11 Sulfa (Sulfonamide Allergy Swelling Verified 01/03/23 14:11 Antibiotics) Family History Mother Diabetes Hypertension Heart disease Cancer lung Brother Diabetes Father Diabetes Cancer pancreas Other CAD (coronary artery disease) CVA (cerebral vascular accident) Kidney disease Surgical History (Updated 11/02/22 @ 05:56 by Jeanne León) History of angioplasty of peripheral vessel History of colonoscopy History of left heart catheterization (05/01/19) Hx of kidney transplant Presence of surgically created arteriovenous shunt for hemodialysis Social History (Updated 09/03/19 @ 11:15 by Jazlyn REICH, PA-C) Smoking Status: Former smoker EXAM Physical Exam Const Vital Signs: 01/03/23 11:02 01/03/23 11:14 01/03/23 11:18 Temperature 100.5 F H 100.7 F H Temperature Source Temporal Oral Pulse Rate 73 75 Respiratory Rate 16 17 17 Blood Pressure 154/105 H 164/64 H Blood Pressure Mean 121 97 Pulse Ox 97 99 Oxygen Delivery Method Room Air Room Air Room Air 01/03/23 11:29 01/03/23 12:30 Temperature 99.0 F Temperature Source Oral Pulse Rate 72 Respiratory Rate 27 H Blood Pressure 152/62 H Blood Pressure Mean 92 Pulse Ox Oxygen Delivery Method Room Air Room Air MDM MDM Lab Data Labs: Laboratory Results - last 24 hr 01/03/23 01/03/23 11:26 12:29 WBC 16.7 H RBC 4.16 L Hgb 11.8 L Hct 35.9 L MCV 86.3 MCH 28.4 MCHC 32.9 RDW Std Deviation 39.6 RDW Coeff of Yung 12.6 Plt Count 251 MPV 10.0 Immature Gran % (Auto) 0.500 Neut % (Auto) 82.9 H Lymph % (Auto) 5.3 L Morrill % (Auto) 10.9 H Eos % (Auto) 0.1 Baso % (Auto) 0.3 Absolute Neuts (auto) 13.8 H Absolute Lymphs (auto) 0.89 Nucleated RBC % 0 Differential Comment COMMENT Diff Path Review May foll PT 14.1 INR 1.1 APTT 27.6 Sodium 137 Potassium 4.0 Chloride 104 Carbon Dioxide 24.0 Anion Gap 9 BUN 20 H Creatinine 1.37 H Estim Creat Clear Calc 54.02 Est GFR (MDRD) Af Amer 67 Est GFR (MDRD) Non-Af 55 L BUN/Creatinine Ratio 14.6 Glucose 185 H Lactic Acid 1.3 Calcium 9.1 Total Bilirubin 0.50 AST 13 L ALT 14 L Alkaline Phosphatase 58 Total Protein 7.4 Albumin 3.8 Globulin 3.6 Albumin/Globulin Ratio 1.1 Urine Color Yellow Urine Clarity Clear Urine pH 5.0 Ur Specific [place] 1.020 Urine Protein 30 H Urine Glucose (UA) Normal Urine Ketones 5 H Urine Occult Blood Negative Urine Nitrite Negative Urine Bilirubin Negative Urine Urobilinogen Normal Ur Leukocyte Esterase 25 H Urine RBC 0 SEEN Urine WBC 0-5 SEEN Ur Squamous Epith Cells 0-5 SEEN Urine Bacteria 0 SEEN Urine Mucus 0 SEEN Radiography Diagnostic Testing: Clinical Impression(s) from Imaging Studies Chest X-Ray 01/03/23 11:19 IMPRESSION: Borderline cardiomegaly. The lungs are clear. Electronically Signed: Yamil Hsu MD at 12:27 EDT , Foot X-Ray 01/03/23 11:23 IMPRESSION: Findings suggestive of possible osteomyelitis of the fifth metatarsophalangeal joint with overlying soft tissue swelling. Small amount of air is seen within the soft tissues. Electronically Signed: Yamil Hsu MD at 12:28 EDT , Treatment and Re-Evaluation Narrative: I have personally performed a face to face assessment of the patient and have reviewed the KAROLINA Note. I performed a substantive portion of the visit including all aspects of the following. My krishnamurthy findings include: History: Patient comes in with fevers chills nausea he vomited once and he has redness of his right foot. This is a diabetic is also on immunosuppression due to a kidney transplant. He does not have any sensation in his feet. He did not notice that there is a small open blister on the bottom of the right. He does not know when this started. But he did note that the redness started here over this past day. He has had sense of fevers and malaise. He also may have had so me mild nasal drainage and nonspecific cough. They are not sure if this is the recent [place] wildfire whether or pulmonary issues. Exam: Patient looks tired but not toxic. He is not confused. He does feel warm to the touch consistent with his fever. His lungs sound clear to me. His saturations are normal at 99% on room air showing no hypoxia. Heart is regular. Abdomen is soft and nontender. Pertinent exam of his right lower extremity shows erythema of the distal lateral aspect of the his foot. It is warm red and swollen. It is not tender but that is because he has no sensation of s ignificance. On the lateral aspect near the fifth MTP, there is some swelling but its not fluctuant. On the underside of the foot in the same area is an open area about 1 cm round that looks like a blister that opened. There is no active drainage. Medical Decision Making: This is a complex patient with multiple medical problems including significant immunosuppression. Comprehensive work-up will be pursued including cultures and x-rays of the foot. We will add an x-ray of the chest with a slight cough also. Discharge Plan Dx/Rx/DC Orders Clinical Impression: Cellulitis of foot, right, Osteomyelitis Disposition Disposition: Acute Care Hospital [facility] Discharge Date/Time: 01/03/23 14:24
[2023-01-03 11:55] LABS: Lactic Acid 1.3 mmol/L (0.4-1.9)
[2023-01-03] MEDS: Acetaminophen 325 MG Tablet 650 MG PO (11:56)
--- NOTE | 2023-01-03 12:37 | EX.ED.DYSGE1 ---
HPI History of Present Illness Chief Complaint: Lower Extremity Injury Narrative Narrative: Patient is a 67-year-old male with history of diabetes, hypertension, kidney failure with a kidney transplant in October 2019. Patient presents to the emergency department for fever, chills as well as right foot redness. Patient developed a fever yesterday around 99, he states that is high for him. Today, he noticed some pain and swelling to the right foot with some redness. Patient's fever was greater than 100 today. Patient states he is shaking more than normal. Patient did have 1 episode of nausea and vomiting. Patient also states to feel that he has been having worsening congestion. He is here with his . [facility] Medical History (Updated 01/03/23 @ 13:09 by DEANDRE Carson) Alcohol use Anemia Arthritis AV fistula stenosis Back pain Blister (nonthermal), right great toe, initial encounter BPH (benign prostatic hyperplasia) Cardiology follow-up encounter Chronic anemia Diabetic foot ulcer associated with type 2 diabetes mellitus Dietary restriction End-stage renal disease on hemodialysis Essential hypertension Hallux limitus of right foot High cholesterol History of echocardiogram History of edema History of pain when walking History of rheumatic fever History of stress test Hypercholesterolemia Insulin dependent diabetes mellitus Leg cramps Loss of hearing Malnutrition Open fracture at right wrist or hand level Restless legs Screening for intestinal cancer Symptomatic bradycardia Type 2 diabetes mellitus with diabetic polyneuropathy Ulcer of right second toe with fat layer exposed Wears glasses Home Medications finasteride 5 mg tablet (Proscar) 5 mg PO DAILY PROSTATE 07/10/17 [History Last Taken 05/01/19] rosuvastatin 10 mg tablet (Crestor) 10 mg PO DAILY CHOLESTEROL 07/10/17 [History Last Taken 10/31/17] aspirin 81 mg tablet,delayed release (Enteric Coated Aspirin) 81 mg PO DAILY 09/27/22 [History Last Taken Unknown] insulin glargine 100 unit/mL (3 mL) subcutaneous pen (Lantus Solostar U-100 Insulin) 30 unit subcut QPM 09/27/22 [History Last Taken Unknown] labetalol 100 mg tablet 150 mg PO BID 09/27/22 [History Last Taken 11/02/22 05:00] mycophenolate sodium 360 mg tablet,delayed release 720 mg PO Q12H 09/27/22 [History Last Taken Unknown] nifedipine 60 mg tablet,extended release 24 hr 30 mg PO DAILY 09/27/22 [History Last Taken 11/02/22 05:00] tacrolimus 1 mg tablet,extended release 24 hr (Envarsus XR) 1 mg PO DAILY 09/27/22 [History Last Taken Unknown] cholecalciferol (vitamin D3) 50 mcg (2,000 unit) tablet (Vitamin D3) 50 mcg PO DAILY 10/29/22 [History Last Taken Unknown] insulin aspart U-100 100 unit/mL (3 mL) subcutaneous pen (Novolog FlexPen U-100 Insulin aspart) 16 unit subcut BID 10/29/22 [History Last Taken Unknown] Allergy/AdvReac Type Severity Reaction Status Date / Time metformin Allergy Itching Verified 01/03/23 11:04 Sulfa (Sulfonamide Allergy Swelling Verified 01/03/23 11:04 Antibiotics) Family History Mother Diabetes Hypertension Heart disease Cancer lung Brother Diabetes Father Diabetes Cancer pancreas Other CAD (coronary artery disease) CVA (cerebral vascular accident) Kidney disease Surgical History (Updated 11/02/22 @ 05:56 by Jeanne León) History of angioplasty of peripheral vessel History of colonoscopy History of left heart catheterization (05/01/19) Hx of kidney transplant Presence of surgically created arteriovenous shunt for hemodialysis Social History (Updated 09/03/19 @ 11:15 by Jazlyn REICH, PA-C) Smoking Status: Former smoker ROS ROS ED ROS Narrative Constitutional: Negative for weight loss, weakness. Positive for fever and chills Eyes: Negative for vision loss, vision change, double vision ENT: Negative for any sore throat, ear pain, congestion Cardiovascular: Negative for any chest pain, tightness, palpitations Respiratory: Negative for any cough, sputum production, hemoptysis, dyspnea, dyspnea on exertion, orthopnea Gastrointestinal: Negative for any abdominal pain, nausea, vomiting, diarrhea, constipation, blood in stool, blood in vomit : Negative for any urinary frequency, dysuria, retention, blood in urine Muscle skeletal: Negative for any muscle joint pain, stiffness, myalgias, arthralgias, neck pain, back pain. Positive for right foot redness swelling and pain Neurological: Negative for any headache, syncope, numbness or tingling, dizziness Skin: Negative for any rashes, lumps, itching, abrasions, lacerations Psychiatric: Negative for any depression, anxiety, stress, suicidal ideation, homicidal ideation Hematologic: Negative for any easy bruising, excessive bruising, easy bleeding Allergies: Negative for any eczema, hives, rash EXAM Physical Exam Narrative Exam Narrative: Vital signs reviewed. Patient was febrile here and 100.7, patient is alert and orient x4. HEET: Head normocephalic atraumatic, TMs clear bilaterally. Posterior pharynx is clear, moist mucous membranes. Positive for rhinorrhea Neck: Supple with no lymphadenopathy or tenderness. No signs of meningismus, negative jolt sign. Cardiac: Regular rate and rhythm no murmurs gallops or rubs, equal peripheral pulses bilaterally. Respiratory: Lungs clear to auscultation bilaterally. No chest tenderness. Abdomen: Soft, nontender, nondistended. No abdominal bruit or pulsatile masses. No hepatosplenomegaly Extremities: Patient's dorsal aspect of the right foot from the great toe to the entire top of the foot is bright red, warm to the touch. This is consistent with cellulitis. There is slight edema, +2 pedal pulse. Patient does have discomfort on palpation.. Active full range of motion of all extremities. Neuro: Cranial nerves II through XII intact, no focal neurological deficits. Skin: Clean dry and intact with no rash, purpura, petechiae, vesicles or pustules. Backs/flank: No CVA tenderness, no midline spinal tenderness, no deformity. Psych: Normal mood and affect. No SI, HI or acute psychosis. Const Vital Signs: 01/03/23 11:02 01/03/23 11:14 01/03/23 11:18 Temperature 100.5 F H 100.7 F H Temperature Source Temporal Oral Pulse Rate 73 75 Respiratory Rate 16 17 17 Blood Pressure 154/105 H 164/64 H Blood Pressure Mean 121 97 Pulse Ox 97 99 Oxygen Delivery Method Room Air Room Air Room Air 01/03/23 11:29 01/03/23 12:30 Temperature 99.0 F Temperature Source Oral Pulse Rate 72 Respiratory Rate 27 H Blood Pressure 152/62 H Blood Pressure Mean 92 Pulse Ox Oxygen Delivery Method Room Air Room Air Positive well nourished and well developed General Appearance ED: well developed MDM MDM Lab Data Attestation: I reviewed the patient's lab results. Labs: Laboratory Results - last 24 hr 01/03/23 01/03/23 11:26 12:29 WBC 16.7 H RBC 4.16 L Hgb 11.8 L Hct 35.9 L MCV 86.3 MCH 28.4 MCHC 32.9 RDW Std Deviation 39.6 RDW Coeff of Yung 12.6 Plt Count 251 MPV 10.0 Immature Gran % (Auto) 0.500 Neut % (Auto) 82.9 H Lymph % (Auto) 5.3 L [place] % (Auto) 10.9 H Eos % (Auto) 0.1 Baso % (Auto) 0.3 Absolute Neuts (auto) 13.8 H Absolute Lymphs (auto) 0.89 Nucleated RBC % 0 Differential Comment COMMENT Diff Path Review November foll PT 14.1 INR 1.1 APTT 27.6 Sodium 137 Potassium 4.0 Chloride 104 Carbon Dioxide 24.0 Anion Gap 9 BUN 20 H Creatinine 1.37 H Estim Creat Clear Calc 54.02 Est GFR (MDRD) Af Amer 67 Est GFR (MDRD) Non-Af 55 L BUN/Creatinine Ratio 14.6 Glucose 185 H Lactic Acid 1.3 Calcium 9.1 Total Bilirubin 0.50 AST 13 L ALT 14 L Alkaline Phosphatase 58 Total Protein 7.4 Albumin 3.8 Globulin 3.6 Albumin/Globulin Ratio 1.1 Urine Color Yellow Urine Clarity Clear Urine pH 5.0 Ur Specific [place] 1.020 Urine Protein 30 H Urine Glucose (UA) Normal Urine Ketones 5 H Urine Occult Blood Negative Urine Nitrite Negative Urine Bilirubin Negative Urine Urobilinogen Normal Ur Leukocyte Esterase 25 H Urine RBC 0 SEEN Urine WBC 0-5 SEEN Ur Squamous Epith Cells 0-5 SEEN Urine Bacteria 0 SEEN Urine Mucus 0 SEEN Radiography Diagnostic Testing: Clinical Impression(s) from Imaging Studies Chest X-Ray 01/03/23 11:19 IMPRESSION: Borderline cardiomegaly. The lungs are clear. Electronically Signed: Yamil Hsu MD at 12:27 EDT , Foot X-Ray 01/03/23 11:23 IMPRESSION: Findings suggestive of possible osteomyelitis of the fifth metatarsophalangeal joint with overlying soft tissue swelling. Small amount of air is seen within the soft tissues. Electronically Signed: Yamil Hsu MD at 12:28 EDT , EKG Normal sinus rhythm: Attestation: I personally reviewed and interpreted this EKG as follows: Comments: Normal sinus rhythm with a rate of 75 bpm, TX 174 ms, QRS duration 90 ms, no acute ST elevation, no acute infarct noted Treatment and Re-Evaluation :: All radiologic examinations were read, reviewed by the emergency department attending. From these reads, a plan of care will be put in place. Patient appears ill, patient is febrile, presents to the emergency department for fever, chills, redness to the right foot. Secondary the patient's history of renal failure, kidney transplant, diabetes, patient did receive a full septic work-up with 2 sets of blood cultures. Patient's laboratory values show a leukocytosis with a white blood count of 16.7 patient's creatinine is 1.37, patient is around 1.2-1.3 respectively. Blood glucose is 185. 2 sets of blood cultures taken, IV vancomycin given. Patient's x-ray of the chest showed no acute process. Patient's x-ray of the right foot shows findings suggestive of possible osteomyelitis of the fifth metaphalangeal joint with overlying soft tissue swelling. Small amount of air seen within the tissues. I spoke with the patient at length, the patient will be admitted to the hospital. Patient was started on IV vancomycin. I spoke with hospitalist, he will accept the patient. I will reach out to podiatry regarding this patient. Patient placed on IV vancomycin, admitted to [facility] full Discharge Plan Triage Chief Complaint: Lower Extremity Injury ED Midlevel Provider: Julius Camp ED Provider: Oscar Rodarte Dx/Rx/DC Orders Clinical Impression: Cellulitis of foot, right, Osteomyelitis Prescriptions: No Action rosuvastatin [Crestor] 10 mg tablet 10 mg PO DAILY finasteride [Proscar] 5 mg tablet 5 mg PO DAILY Lantus Solostar U-100 Insulin 100 unit/mL (3 mL) insulin pen 30 unit SC QPM labetalol 100 mg tablet 150 mg PO BID aspirin [Enteric Coated Aspirin] 81 mg tablet,delayed release (DR/EC) 81 mg PO DAILY mycophenolate sodium 360 mg tablet,delayed release (DR/EC) 720 mg PO Q12H Envarsus XR 1 mg tablet extended release 24 hr 1 mg PO DAILY Rx Instructions: must be taken on empty stomach nifedipine 60 mg tablet extended release 24hr 30 mg PO DAILY Patient Comments: was reduced to 60mg today... was on and took 90mg today. insulin aspart U-100 [Novolog FlexPen U-100 Insulin] 100 unit/mL (3 mL) Insulin Pen 16 unit SUBCUT BID cholecalciferol (vitamin D3) [Vitamin D3] 50 mcg (2,000 unit) Tablet 50 mcg PO DAILY Primary Care Provider: Alo Goddard Referrals: Alo Goddard MD [Primary Care Provider] - Disposition Disposition: Acute Care Hospital [facility]
[2023-01-03 12:38] LABS: Bacteria 0 SEEN /hpf (None Seen); Mucous, Urine 0 SEEN /hpf (<or=2+); Red Blood Cells-Urine 0 SEEN /hpf (0-5)
[2023-01-03 12:45] LABS: Color, Urine Yellow (Yellow); Glucose, Dipstick Normal (Normal); Ketone-Dipstick 5 mg/dl (Negative); Leukocyte Esterase-Dipstick 25 /ul (Negative); Nitrite-Dipstick Negative (Negative); Occult Blood-Urine Negative /ul (Negative); Protein-Dipstick 30 mg/dl (Negative); Urine Bilirubin Dipstick Negative (Negative); Urine Clarity Clear (Clear); Urine Urobilinogen Normal (Normal)
[2023-01-03 12:51] LABS: Squamous Epithelial Cells - UA 0-5 SEEN /hpf (0-5); White Blood Cells 0-5 SEEN /hpf (0-5)
--- NOTE | 2023-01-03 13:14 | MRI_ITS ---
INDICATION: Osteomyelitis EXAMINATION: MRI - MR Forefoot W/O Contrast TECHNIQUE: Multiplanar and multisequence MR images were performed of the right forefoot. IV Contrast Dosage and Agent: None. COMPARISON: 08/09/2013 and 01/03/2023 left foot x-rays FINDINGS: JOINTS: No joint effusion. Third and perhaps fourth proximal interphalangeal joint inferior subluxation. MUSCLES: No edema or myositis. BONE: Fifth metatarsal head and questionable second middle phalanx STIR hyperintensity and T1 hypointensity. Multiple tarsal and metatarsal lytic lesions. OTHER SOFT TISSUES: Plantar skin defect at the level of the fifth metatarsal head. MRI/Lower Ext/No Jt/w/o IMPRESSION: 1. Plantar skin defect to the level of the fifth metatarsal head with at the fifth metatarsal head and second middle phalanx suspicious for osteomyelitis. 2. Multiple lytic tarsal and metatarsal bones lesions are new compared to 08/09/2013. Electronically Signed: Julius Hoff MD at 18:53 EDT ,
--- NOTE | 2023-01-03 13:48 | PCM.HP.STD ---
HPI - General General Date of Admission: 01/03/23 HPI Narrative RODRI HECK, is a 67 M who presents to the hospital with right lower extremity redness. He does not have any sensation due to neuropathy but he does have what appears to be a puncture wound at the ball of his foot by his fifth metatarsal. He felt a little bit feverish yesterday but then this morning had a temperature of 101.2 at home. We took his shoes and socks off this morning he saw redness on the top aspect of his foot so he presented to the ER. He does have a history of kidney transplant. In the ER a foot x-ray was obtained that shows possible osteomyelitis of the fifth metatarsal head. White count is elevated but vital signs are otherwise normal. [facility] Medical History (Updated 01/03/23 @ 14:48 by Ratna Pena) Alcohol use Anemia Arthritis AV fistula stenosis Back pain Blister (nonthermal), right great toe, initial encounter BPH (benign prostatic hyperplasia) Cardiology follow-up encounter Chronic anemia Diabetes Diabetic foot ulcer associated with type 2 diabetes mellitus Dialysis patient Dietary restriction End-stage renal disease on hemodialysis Essential hypertension Hallux limitus of right foot High cholesterol History of echocardiogram History of edema History of pain when walking History of rheumatic fever History of stress test Hypercholesterolemia Insulin dependent diabetes mellitus Kidney disease Leg cramps Loss of hearing Malnutrition Open fracture at right wrist or hand level Restless legs Rheumatoid arthritis Screening for intestinal cancer Symptomatic bradycardia Type 2 diabetes mellitus with diabetic polyneuropathy Ulcer of right second toe with fat layer exposed Wears glasses Home Medications finasteride 5 mg tablet (Proscar) 5 mg PO DAILY PROSTATE 07/10/17 [History Last Taken 01/03/23] rosuvastatin 10 mg tablet (Crestor) 10 mg PO DAILY CHOLESTEROL 07/10/17 [History Last Taken 01/03/23] aspirin 81 mg tablet,delayed release (Enteric Coated Aspirin) 81 mg PO DAILY 09/27/22 [History Last Taken 01/03/23] insulin glargine 100 unit/mL (3 mL) subcutaneous pen (Lantus Solostar U-100 Insulin) 25 unit subcut QPM 09/27/22 [History Last Taken 01/02/23] labetalol 100 mg tablet 150 mg PO BID 09/27/22 [History Last Taken 01/03/23] mycophenolate sodium 360 mg tablet,delayed release 720 mg PO Q12H 09/27/22 [History Last Taken 01/03/23] tacrolimus 1 mg tablet,extended release 24 hr (Envarsus XR) 1 mg PO DAILY 09/27/22 [History Last Taken 01/03/23] cholecalciferol (vitamin D3) 50 mcg (2,000 unit) tablet (Vitamin D3) 50 mcg PO DAILY 10/29/22 [History Last Taken 01/03/23] insulin aspart U-100 100 unit/mL (3 mL) subcutaneous pen (Novolog FlexPen U-100 Insulin aspart) 8 unit subcut TIDCM DM 10/29/22 [History Last Taken 01/03/23] nifedipine 30 mg tablet,extended release 24 hr 30 mg PO DAILY HEART 01/03/23 [History Last Taken 01/03/23] Allergy/AdvReac Type Severity Reaction Status Date / Time metformin Allergy Itching Verified 01/03/23 14:11 Sulfa (Sulfonamide Allergy Swelling Verified 01/03/23 14:11 Antibiotics) Family History Mother Diabetes Hypertension Heart disease Cancer lung Brother Diabetes Father Diabetes Cancer pancreas Other CAD (coronary artery disease) CVA (cerebral vascular accident) Kidney disease Surgical History (Updated 11/02/22 @ 05:56 by Jeanne León) History of angioplasty of peripheral vessel History of colonoscopy History of left heart catheterization (05/01/19) Hx of kidney transplant Presence of surgically created arteriovenous shunt for hemodialysis Social History (Updated 09/03/19 @ 11:15 by Jazlyn REICH, PA-C) Smoking Status: Former smoker ROS Constitutional Constitutional: Denies chills, fatigue, fever(s) or malaise Eyes Eyes: Denies blurry vision ENT HEENT: Denies headache(s) or nasal discharge Cardiovascular Cardiovascular: Denies chest pain, dyspnea on exertion or syncope Respiratory/Chest Respiratory/Chest: Denies cough, shortness of breath at rest or shortness of breath with exertion Gastrointestinal Gastrointestinal: Denies constipation, diarrhea, nausea or vomiting Genitourinary Genitourinary: Denies dysuria Integumentary Integumentary: Reports new lesions Neurologic Neurologic: Denies focal weakness, numbness or tremor(s) Psychiatric Psychiatric: Denies anxiety or depression Vital Signs Vital Signs Vital Signs: 01/03/23 11:02 01/03/23 11:14 01/03/23 11:18 Temperature 100.5 F H 100.7 F H Temperature Source Temporal Oral Pulse Rate 73 75 Respiratory Rate 16 17 17 Blood Pressure 154/105 H 164/64 H Blood Pressure Mean 121 97 Pulse Ox 97 99 Oxygen Delivery Method Room Air Room Air Room Air 01/03/23 11:29 01/03/23 12:30 01/03/23 13:32 Temperature 99.0 F 98.6 F Temperature Source Oral Oral Pulse Rate 72 67 Respiratory Rate 27 H 16 Blood Pressure 152/62 H 146/65 H Blood Pressure Mean 92 92 Pulse Ox 94 Oxygen Delivery Method Room Air Room Air Room Air 01/03/23 13:32 Temperature Temperature Source Pulse Rate 67 Respiratory Rate 16 Blood Pressure 146/65 H Blood Pressure Mean 92 Pulse Ox 94 Oxygen Delivery Method Room Air Weight Weight: 194 lb Body Mass Index (BMI) 27.8 Physical Exam Narrative General: Alert, Oriented x3, Cooperative, No apparent distress HEENT: Atraumatic, PERRLA, EOMI, Normocephalic Oral: Moist Mucosa Neck: Supple, No JVD Lungs: Diminished, Normal air movement, No rhonchi, No wheeze, No rales Cardiovascular: Regular rate, Regular Rhythm, Normal S1, Normal S2, No murmurs Abdomen: Soft, Non Tender, Non-Distended, No Hepato-splenomegaly Extremities: No edema, Capillary Refill Less than 3 Seconds Skin: He does have an open wound at the head of his fifth metatarsal on the ball of his foot on the right with redness on the top of his foot Musculoskeletal: No Tenderness to Palpation of Joints or Extremities Neurological: Motor Exam 5/5 strength throughout, diminished sensation in bilateral legs Psych/Mental Status: Normal Affect, Appropriate Results Lab / Micro Data 01/03/23 11:26 01/03/23 11:26 Labs: Laboratory Results - last 24 hr 01/03/23 11:26: WBC 16.7 H, RBC 4.16 L, Hgb 11.8 L, Hct 35.9 L, MCV 86.3, MCH 28.4, MCHC 32.9, RDW Std Deviation 39.6, RDW Coeff of Yung 12.6, Plt Count 251, MPV 10.0, Immature Gran % (Auto) 0.500, Neut % (Auto) 82.9 H, Lymph % (Auto) 5.3 L, [place] % (Auto) 10.9 H, Eos % (Auto) 0.1, Baso % (Auto) 0.3, Absolute Neuts (auto) 13.8 H, Absolute Lymphs (auto) 0.89, Nucleated RBC % 0, Differential Comment COMMENT, Diff Path Review November foll, PT 14.1, INR 1.1, APTT 27.6, Sodium 137, Potassium 4.0, Chloride 104, Carbon Dioxide 24.0, Anion Gap 9, BUN 20 H, Creatinine 1.37 H, Estim Creat Clear Calc 54.02, Est GFR (MDRD) Af Amer 67, Est GFR (MDRD) Non-Af 55 L, BUN/Creatinine Ratio 14.6, Glucose 185 H, Lactic Acid 1.3, Calcium 9.1, Total Bilirubin 0.50, AST 13 L, ALT 14 L, Alkaline Phosphatase 58, Total Protein 7.4, Albumin 3.8, Globulin 3.6, Albumin/Globulin Ratio 1.1 01/03/23 12:29: Urine Color Yellow, Urine Clarity Clear, Urine pH 5.0, Ur Specific [place] 1.020, Urine Protein 30 H, Urine Glucose (UA) Normal, Urine Ketones 5 H, Urine Occult Blood Negative, Urine Nitrite Negative, Urine Bilirubin Negative, Urine Urobilinogen Normal, Ur Leukocyte Esterase 25 H, Urine RBC 0 SEEN, Urine WBC 0-5 SEEN, Ur Squamous Epith Cells 0-5 SEEN, Urine Bacteria 0 SEEN, Urine Mucus 0 SEEN Radiology Impression Chest X-Ray 01/03/23 11:19 IMPRESSION: Borderline cardiomegaly. The lungs are clear. Electronically Signed: Yamil Hsu MD at 12:27 EDT , Foot X-Ray 01/03/23 11:23 IMPRESSION: Findings suggestive of possible osteomyelitis of the fifth metatarsophalangeal joint with overlying soft tissue swelling. Small amount of air is seen within the soft tissues. Electronically Signed: Yamil Hsu MD at 12:28 EDT , Assessment & Plan Assessment/Plan (1) Cellulitis of foot, right: (2) Right foot infection: PLAN: Plan 1. Diabetic foot ulcer with possible osteomyelitis/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/status post renal transplant ? We will continue with his diabetic monitoring and make adjustments as necessary to his insulin ? Continue vancomycin and Zosyn ? We will consult podiatry ? MRI is pending for better characterization of possible osteomyelitis ? We will resume his home antirejection medications ? His creatinine is a little bit elevated to 1.3 today will start him on IV fluids 2. HTN/HLD ? Blood stable ? Can resume his home blood pressure medications ? Resume his home cholesterol medications DVT: Lovenox 75 minutes was spent on direct patient care as well as chart review and collaboration with colleagues Charges/Coding Visit Charges Inpatient E&M: 00870 Init Hosp L3
--- NOTE | 2023-01-03 14:18 | PCM.RX.CS ---
Consult Antibiotic Management Pharmacy has been consulted to manage selected antiobiotic: Vancomycin Type of Intervention Type of Consult: New start Suspected Infection Suspected Infection: Osteomyelitis Labs Labs: Sodium 137 mmol/L (136-145) 01/03/23 11:26 Potassium 4.0 mmol/L (3.5-5.1) 01/03/23 11:26 Chloride 104 mmol/L (98-107) 01/03/23 11:26 Carbon Dioxide 24.0 mmol/L (21.0-32.0) 01/03/23 11:26 Anion Gap 9 (5-15) 01/03/23 11:26 BUN 20 mg/dL (7-18) H 01/03/23 11:26 Creatinine 1.37 mg/dL (0.70-1.30) H 01/03/23 11:26 Est GFR (MDRD) Af Amer 67 mL/min (>60) 01/03/23 11:26 Est GFR (MDRD) Non-Af 55 mL/min (>60) L 01/03/23 11:26 BUN/Creatinine Ratio 14.6 RATIO (10-20) 01/03/23 11:26 Glucose 185 mg/dL (74-106) H 01/03/23 11:26 Goal Trough Goal Trough: 15-20 mcg/mL Pharmacy Plan for Drug Dosing Pharmacy Plan for Drug Dosing: NEW START IV VANCOMYCIN Consulting Physician: Dr. Rahman Indication: Diabetic foot ulcer, possible osteomyelitis Goal Trough: 15-20 SrCr: 1.37 mg/dL CrCl: 58.5 mL/min (AdjBW 79kg) Comments: Vancomycin 1250mg x1 dose given @ 1243 01/03/23 Vancomycin Dose: Vancomycin 750mg Q12H, next dose scheduled for 9901/04/23 Pending Level: Vancomycin trough @ 2901/05/23 Pharmacy Service will continue to monitor and adjust dosing as required. Follow-Up Labs Follow-Up Labs: Trough: Vancomycin Date/Time Labs Ordered Labs to be done on [date and time ordered]: 2901/05/23
[2023-01-03] MEDS: 0.9% Saline Lock 10 ML Syringe IV (15:02)
[2023-01-03] MEDS: 0.9% Normal Saline 1,000 ML 100 ML IV (16:26)
[2023-01-03] MEDS: Insulin Lispro 100 UNIT/ML INSULN.PEN SC ×2 (16:32→20:50)
[2023-01-03 16:33] LABS: Bedside Glucose 214 mg/dL (74-106)
--- NOTE | 2023-01-03 17:36 | PCM.CONS.GEN ---
Assessment & Plan Assessment/Plan (1) Osteomyelitis: (2) Cellulitis of foot, right: (3) Right foot infection: (4) 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 layer exposed: (5) Diabetes mellitus with diabetic polyneuropathy: (6) Type 2 diabetes mellitus with foot ulcer: PLAN: Plan Patient seen and evaluated Right foot: There is erythema of the dorsal lateral foot with some darkened/purplish appearance dorsal lateral fifth metatarsal head. There is an ulceration Sub fifth metatarsal head with surrounding hyperkeratosis. There is some darkened appearing necrotic tissue at the base of the ulcer with some malodor noted. No erythema about the ulcerative site. No purulent drainage, no palpable fluctuance/bogginess noted, no visible abscess formation, no lymphangitic streaking. Ulceration does probe close to bone. Ulceration measures 2 cm x 1.5 cm x 0.4 cm Following verbal permission ulceration did undergo sharp excisional debridement to the level of subcutaneous tissue utilizing forceps and a #15 blade. 100% of the ulcerative site was debrided. Debridement consisted of fibrous, devitalized subcutaneous, biofilm, slough. No local anesthetic required secondary to patient's peripheral diabetic polyneuropathy. During debridement tissue sample was obtained of necrotic tissue and sent to microbiology for culture. Healthy bleeding tissue was noted. Hemostasis was achieved with pressure and gauze. Patient tolerated procedure well. Following debridement site was dressed with Dakin's wet to dry, ABD, Kerlix, [place] wrap rolled onto the foot. Dressing to be changed daily. Wound care nurse to assist in dressing changes. WBC 16.7 upon admission, lactic acid 1.3, glucose 185, albumin 3.8, creatinine 1.3, last hemoglobin A1c 11/28/2022 was 8%. Currently on IV Vanco/Zosyn Imaging: Radiographs obtained of the right foot on 01/03/2023 demonstrate possible osteomyelitis of the fifth metatarsal head with some soft tissue air secondary to ulcer. MRI was obtained 01/03/2023, findings: Fifth metatarsal head and questionable second middle phalanx STIR hyperintensity and T1 hypointensity. Multiple tarsal and metatarsal lytic lesions. Impression: 1. Plantar skin defect to the level of the fifth metatarsal head with at the fifth metatarsal head and second middle phalanx suspicious for osteomyelitis. 2. Multiple lytic tarsal and metatarsal bone lesions are new compared to 08/09/2013. I have independently reviewed radiographic imaging and MRI and do concur with likely diagnosis of osteomyelitis of the fifth metatarsal head. I discussed with the patient the results of the MRI and radiographic imaging that is suggestive of osteomyelitis of the fifth metatarsal head and middle phalanx. I discussed performing a partial fifth ray amputation of the right foot. I discussed with patient and that this is not an elective procedure and this is a limb salvage procedure necessary to prevent spread of further infection of tissue and bone and to prevent further loss of tissue/bone or more proximal amputation. I discussed the procedure in great detail. Discussed the rationale of the procedure in detail. Discussed the risk and complications of the procedure in detail. I discussed the risks include but are not limited to the following: Pain, continued pain, phantom pain, complex regional pain syndrome, neuritis/numbness, poor cosmetic result, scarring, dehiscence, infection, swelling, delayed healing, nonhealing, deformity, continued deformity, difficulty wearing shoe gear, difficulty with ambulation, transfer lesion, digital deformity, hematoma, blood clot, stroke, loss of function, loss of limb, loss of life. Patient was able to voice understanding of these and repeat these back. Patient is in agreement with the surgical plan and intervention. Patient willing to proceed forward with surgical intervention as he understands the necessity of the procedure. Consent to be obtained by nursing for a partial fifth ray amputation of the right foot. All questions were answered to patient and satisfaction Podiatry planning partial fifth ray amputation of the right foot for tomorrow, 01/04/2023. Patient to be n.p.o. overnight. Patient to remain nonweightbearing to the right foot. Medicine team currently following for medical management, they are greatly appreciated Infectious disease will be consulted for antibiotic management Wound care nurse following for assisting dressing changes Podiatry will continue to follow Please do not hesitate to call for any questions or concerns Lane Rojas Jr. Derek.P.M. [facility] [place] [phone] HPI Consult Data Date of Consult: 01/03/23 HPI Narrative Reason for Consultation: Right plantar foot wound HPI Narrative: RODRI HECK, is a 67 M who presents to [facility] ED with right lower extremity redness about the fifth metatarsal of the right foot. He has PMHx of DM type II with peripheral polyneuropathy, HTN, kidney failure with transplant in October 2019. He did present to the ED with fever, chills, as well as right foot erythema. states patient developed a fever yesterday and that today he did have pain with swelling to the right foot with redness which prompted to bring him to the ED. Patient admits to nausea with one episode of vomiting earlier this morning. Work-up initiated in ED demonstrating WBC 16.7, lactic acid 1.3, radiographs which demonstrate possible osteomyelitis of the fifth metatarsal head. Patient does have a history of renal transplant and is on immunosuppressive agent. Patient was consulted to podiatry for evaluation of right foot plantar ulceration Sub fifth metatarsal head. Patient states he is unsure of how long this ulceration has been present as he just noticed the redness this morning after taking socks and shoes off. Patient does admit to ambulating barefoot and socks within the house but states he always wear shoes outdoors. Upon initial evaluation there does appear to be a punched out puncture wound at the ball of the foot Sub fifth metatarsal head with some surrounding hyperkeratosis. [facility] Medical History (Updated 01/03/23 @ 19:[address] Rojas, DPM) Alcohol use Anemia Arthritis AV fistula stenosis Back pain Blister (nonthermal), right great toe, initial encounter BPH (benign prostatic hyperplasia) Cardiology follow-up encounter Chronic anemia Diabetes Diabetic foot ulcer associated with type 2 diabetes mellitus Dialysis patient Dietary restriction End-stage renal disease on hemodialysis Essential hypertension Hallux limitus of right foot High cholesterol History of echocardiogram History of edema History of pain when walking History of rheumatic fever History of stress test Hypercholesterolemia Insulin dependent diabetes mellitus Kidney disease Leg cramps Loss of hearing Malnutrition Open fracture at right wrist or hand level Restless legs Rheumatoid arthritis Screening for intestinal cancer Symptomatic bradycardia Type 2 diabetes mellitus with diabetic polyneuropathy Ulcer of right second toe with fat layer exposed Wears glasses Home Medications finasteride 5 mg tablet (Proscar) 5 mg PO DAILY PROSTATE 07/10/17 [History Last Taken 01/03/23] rosuvastatin 10 mg tablet (Crestor) 10 mg PO DAILY CHOLESTEROL 07/10/17 [History Last Taken 01/03/23] aspirin 81 mg tablet,delayed release (Enteric Coated Aspirin) 81 mg PO DAILY 09/27/22 [History Last Taken 01/03/23] insulin glargine 100 unit/mL (3 mL) subcutaneous pen (Lantus Solostar U-100 Insulin) 25 unit subcut QPM 09/27/22 [History Last Taken 01/02/23] labetalol 100 mg tablet 150 mg PO BID 09/27/22 [History Last Taken 01/03/23] mycophenolate sodium 360 mg tablet,delayed release 720 mg PO Q12H 09/27/22 [History Last Taken 01/03/23] tacrolimus 1 mg tablet,extended release 24 hr (Envarsus XR) 1 mg PO DAILY 09/27/22 [History Last Taken 01/03/23] cholecalciferol (vitamin D3) 50 mcg (2,000 unit) tablet (Vitamin D3) 50 mcg PO DAILY 10/29/22 [History Last Taken 01/03/23] insulin aspart U-100 100 unit/mL (3 mL) subcutaneous pen (Novolog FlexPen U-100 Insulin aspart) 8 unit subcut TIDCM DM 10/29/22 [History Last Taken 01/03/23] nifedipine 30 mg tablet,extended release 24 hr 30 mg PO DAILY HEART 01/03/23 [History Last Taken 01/03/23] Allergy/AdvReac Type Severity Reaction Status Date / Time metformin Allergy Itching Verified 01/03/23 14:11 Sulfa (Sulfonamide Allergy Swelling Verified 01/03/23 14:11 Antibiotics) Family History Mother Diabetes Hypertension Heart disease Cancer lung Brother Diabetes Father Diabetes Cancer pancreas Other CAD (coronary artery disease) CVA (cerebral vascular accident) Kidney disease Surgical History (Updated 11/02/22 @ 05:56 by Jeanne León) History of angioplasty of peripheral vessel History of colonoscopy History of left heart catheterization (05/01/19) Hx of kidney transplant Presence of surgically created arteriovenous shunt for hemodialysis Social History (Updated 09/03/19 @ 11:15 by Jazlyn REICH, PA-C) Smoking Status: Former smoker ROS Constitutional Constitutional: Reports chills and fever(s); Denies malaise or weakness Eyes Eyes: Denies diplopia, eye pain or loss of vision ENT HEENT: Denies dysphagia, mouth pain or sore throat Cardiovascular Cardiovascular: Denies chest pain, claudication or palpitations Respiratory/Chest Respiratory/Chest: Denies cough, dyspnea or shortness of breath at rest Gastrointestinal Gastrointestinal: Denies abdominal pain, constipation, diarrhea, nausea or vomiting Genitourinary Genitourinary: Denies dysuria, urinary frequency, urinary hesitancy, urinary incontinence or urinary urgency Musculoskeletal Musculoskeletal: Denies joint pain, joint stiffness or joint swelling Integumentary Integumentary: Denies jaundice, lesions, pruritus or rash Neurologic Neurologic: Denies dizziness, numbness or seizures Endocrine Endocrinology: Denies cold intolerance or heat intolerance Hematologic/Lymphatic Hematologic/Lymphatic: Denies easy bleeding or easy bruising Allergic/Immunologic Allergic/Immunologic: Denies wheezing Physical Exam Const alert, oriented x3 and no apparent distress General Appearance: cooperative HEENT normocephalic Eyes General Eye: normal appearance of both eyes Neck General: normal visual inspection Lymph Lymphatic: no lymphadenopathy noted and no lymphedema noted Resp normal respiratory effort Cardio regular rate and regular rhythm Extremity normal capillary refill, no joint enlargement, no calf tenderness and no pedal edema Extremity Narrative: DP and PT pulses palpable with adequate capillary fill time to the right foot. Dermatological: There is erythema of the dorsal lateral foot with some darkened/purplish appearance dorsal lateral fifth metatarsal head. There is an ulceration Sub fifth metatarsal head with surrounding hyperkeratosis. There is some darkened appearing necrotic tissue at the base of the ulcer with some malodor noted. No erythema about the ulcerative site. No purulent drainage, no palpable fluctuance/bogginess noted, no visible abscess formation, no lymphangitic streaking. Ulceration does probe close to bone. Musculoskeletal: Muscle strength 5 of 5 age-appropriate. Decreased range of motion of the ankle joint in dorsiflexion with the knee extended without pain or crepitus. There is decreased range of motion of the first metatarsophalangeal joint. Skin no rashes or lesions noted, skin turgor normal and no jaundice Neuro moves all extremities Neuro Narrative: Decreased protective sensation to the plantar aspect of the foot consistent with diabetic peripheral polyneuropathy Decreased light sensation to the foot Lab / Micro Data 01/03/23 11:26 01/03/23 11:26 Labs: Laboratory Results - last 24 hr 01/03/23 11:26: WBC 16.7 H, RBC 4.16 L, Hgb 11.8 L, Hct 35.9 L, MCV 86.3, MCH 28.4, MCHC 32.9, RDW Std Deviation 39.6, RDW Coeff of Yung 12.6, Plt Count 251, MPV 10.0, Immature Gran % (Auto) 0.500, Neut % (Auto) 82.9 H, Lymph % (Auto) 5.3 L, [place] % (Auto) 10.9 H, Eos % (Auto) 0.1, Baso % (Auto) 0.3, Absolute Neuts (auto) 13.8 H, Absolute Lymphs (auto) 0.89, Nucleated RBC % 0, Differential Comment COMMENT, Diff Path Review November, PT 14.1, INR 1.1, APTT 27.6, Sodium 137, Potassium 4.0, Chloride 104, Carbon Dioxide 24.0, Anion Gap 9, BUN 20 H, Creatinine 1.37 H, Estim Creat Clear Calc 54.02, Est GFR (MDRD) Af Amer 67, Est GFR (MDRD) Non-Af 55 L, BUN/Creatinine Ratio 14.6, Glucose 185 H, Lactic Acid 1.3, Calcium 9.1, Total Bilirubin 0.50, AST 13 L, ALT 14 L, Alkaline Phosphatase 58, Total Protein 7.4, Albumin 3.8, Globulin 3.6, Albumin/Globulin Ratio 1.1 01/03/23 12:29: Urine Color Yellow, Urine Clarity Clear, Urine pH 5.0, Ur Specific [place] 1.020, Urine Protein 30 H, Urine Glucose (UA) Normal, Urine Ketones 5 H, Urine Occult Blood Negative, Urine Nitrite Negative, Urine Bilirubin Negative, Urine Urobilinogen Normal, Ur Leukocyte Esterase 25 H, Urine RBC 0 SEEN, Urine WBC 0-5 SEEN, Ur Squamous Epith Cells 0-5 SEEN, Urine Bacteria 0 SEEN, Urine Mucus 0 SEEN 01/03/23 16:15: POC Glucose 214 H Micro: Microbiology 01/03/23 12:05 Mucosa - Nasopharyngeal Respiratory Panel (PCR) - Final Radiology Impression Chest X-Ray 01/03/23 11:19 IMPRESSION: Borderline cardiomegaly. The lungs are clear. Electronically Signed: Yamil Hsu MD at 12:27 EDT , Foot X-Ray 01/03/23 11:23 IMPRESSION: Findings suggestive of possible osteomyelitis of the fifth metatarsophalangeal joint with overlying soft tissue swelling. Small amount of air is seen within the soft tissues. Electronically Signed: Yamil Hsu MD at 12:28 EDT ,
[2023-01-03] MEDS: MYCOPHENOLATE SODIUM 360 MG TABLET.DR 720 MG PO (20:43)
[2023-01-03] MEDS: Insulin Glargine-YFGN 100 UNIT/ML Pen 25 UNIT SC (20:51)
[2023-01-03] MEDS: Labetalol 100 MG Tablet 150 MG PO (20:56)
[2023-01-03 21:18] LABS: Bedside Glucose 186 mg/dL (74-106)
[2023-01-04] VITALS (20 sets, daily range): BP systolic 124–155; BP diastolic 53–68; PULSE 64–77; RESP 16–20; TEMP 36.2–38.4; O2SAT 92–99; BMI 27.5
--- NOTE | 2023-01-04 | BON_PTH ---
PATIENT: RODRI HECK LOC: MS3 U#:[id number] AGE/SX: 67/M ROOM: [facility] [place] RE01/03/[address]: Dr. Lindsay Meza MD : 1955 BED: 1 DIS: 01/07/2023 SPEC #: [id number] RECD: 01/07/23 12:51 STATUS: JOSIE REQ #: [id number] MOE: 01/04/23 00:[address]: Lane Rojas DEPT: SURGICAL PATHOLOGY RECD BY: Juan Major ENTERED: 01/07/23 12:52 SP TYPE: Bone OTHR DR: MD Dr. Lane Leblanc, DPM MD Dr. Lindsay Friend MD Dr. Robert Leininger, MD Tissues: A - Bone of foot, NOS B - Bone of foot, NOS C - Bone of foot, NOS Procedures: Decalcification bone/plaque Surgery Specimen Level III Surgery Specimen Level IV Comments: @ Ordering doctor for DEC edited from to DR.MMARS Gato REDDY at 01/07/23 1505 @ Ordering doctor for SUIII edited from to DR.MMARS Gato REDDY at 01/07/23 1505 @ Submitting doctor edited from to DR.MMARS Gato REDDY at 01/07/23 1505 HEADER OPERATION: Amputation partial right ray foot PRE-OP DIAGNOSIS: Cellulitis of right foot and infection TISSUE SUBMITTED: A - Fifth toe right foot, B - Fifth metatarsal bone right foot, C - Right foot clearance fragment MICROSCOPIC DIAGNOSIS A. Fifth toe, right foot, amputation: Acute osteomyelitis. See comment. B. Fifth metatarsal bone, right foot, excision: Acute osteomyelitis. C. Right foot clearance fragment: Pieces of bone and soft tissue, negative for acute osteomyelitis. SJ:ignacia 01/11/2023 COMMENT A. Acute osteomyelitis is noted at the resection margin of the bone (toe). MICROSCOPIC DESCRIPTION Slides are reviewed. GROSS DESCRIPTION A - Received in fixative is one container labeled with the patient's name and designated fifth toe right foot. The specimen consists of a portion of toe measuring 4.5 x 1.5 x 1.5 cm. No obvious area of ulceration is noted. The nail appears atrophic. [employer] sections are submitted in three cassettes as follows: 1 - skin, 2 - longitudinal section of bone, 3 - resection margin. Cassettes 2 & 3 are submitted after decalcification. B - Received in fixative is one container labeled with the patient's name and designated fifth metatarsal bone right foot. The specimen consists of a piece of bone measuring 1.5 x 1.5 x 1.0 cm. The entire specimen is submitted in two cassettes after decalcification. C - Received in fixative is one container labeled with the patient's name and designated right foot clearance fragment. The specimen consists of three pieces of bone and soft tissue measuring in aggregate 2.5 x 1.5 x 0.3 cm. The entire specimen is submitted in one cassette after decalcification. / SJ:rg 01/07/2023 TC:2 CPT: 09882, 06302 x2, 48040 x3
[2023-01-04] MEDS: 0.9% Normal Saline 1,000 ML 100 ML IV ×3 (01:42→17:02)
--- NOTE | 2023-01-04 05:00 | EKG12_ITS ---
Test Reason : PRE OP Blood Pressure : / mmHG Vent. Rate : 070 BPM Atrial Rate : 070 BPM P-R Int : 168 ms QRS Dur : 090 ms QT Int : 410 ms P-R-T Axes : 050 024 -01 degrees QTc Int : 442 ms Normal sinus rhythm Normal ECG When compared with ECG of 03-JAN-2023 11:36, MANUAL COMPARISON REQUIRED, DATA IS UNCONFIRMED Confirmed by LEONARDO LYNCH, AMPARO ([id number]), technical writer and editor MARTHA MERAZ ([id number]) on 01/07/2023 1:00:01 PM Referred By: AALIYAH Confirmed By:AMPARO PATTERSON MD
[2023-01-04 06:11] LABS: Absolute Lymphocyte Count 1.16 X10^3/uL (0.83-4.51); Absolute Neutrophil Count 9.7 X10^3/uL (2.0-7.7); Basophil# 0.05 X10^3/uL; Basophil% 0.4 % (0-1); Eosinophil# 0.05 X10^3/uL; Eosinophils% 0.4 % (0-5); Hemoglobin 10.7 g/dL (13.0-16.5); Lymphocyte # 1.16 X10^3/ul (0.83-4.51); Lymphocyte % 9.4 % (19-41); Mean Corp Hgb Conc 33.4 g/dL (32-36); Mean Corpuscular Hgb 29.1 pg (27.0-32.0); Mean Platelet Vol. 10.1 fl (6.2-12.0); Monocyte# 1.39 X10^3/uL; Monocyte% 11.3 % (0-10); NRBC Flagged by Analyzer 0 % (0-5); Neutrophil # 9.65 X10^3/uL (2.7-7.7); Neutrophil % 78.2 % (47-70); Platelet Count 230 K/mm3 (150-450); RBC Distribution Width CV 12.7 % (11.6-14.6); RBC Distribution Width SD 40.2 fl (35.1-43.9); Red Blood Count 3.68 M/mm3 (4.6-6.2); White Blood Count 12.3 K/mm3 (4.4-11.0)
[2023-01-04] MEDS: Insulin Lispro 100 UNIT/ML INSULN.PEN SC ×3 (06:28→20:34)
[2023-01-04 06:37] LABS: Anion Gap 6 (5-15); BUN 15 mg/dL (7-18); BUN/Creat Ratio 13.8 RATIO (10-20); Calcium,Total 8.3 mg/dL (8.5-10.1); Chloride 113 mmol/L (98-107); Creatinine, Serum 1.09 mg/dL (0.70-1.30); EST Glomerular Filtration Rate 72 mL/min (>60); Est Glom Filt Rate - Afr Amer 87 mL/min (>60); Glucose 154 mg/dL (74-106); Potassium 3.8 mmol/L (3.5-5.1); Sodium Level 141 mmol/L (136-145)
[2023-01-04 06:51] LABS: Bedside Glucose 165 mg/dL (74-106)
[2023-01-04 07:39] LABS: Hemoglobin A1c 7.6 % (3.8-5.6)
[2023-01-04] MEDS: MYCOPHENOLATE SODIUM 360 MG TABLET.DR 720 MG PO ×2 (08:27→20:36)
[2023-01-04] MEDS: Labetalol 100 MG Tablet 150 MG PO ×2 (08:28→20:37)
[2023-01-04] MEDS: NIFEdipine 30 MG Tablet PO (08:43)
--- NOTE | 2023-01-04 08:50 | WOUNDNOTE ---
wound photo: right foot
--- NOTE | 2023-01-04 08:51 | WOUNDNOTE ---
wound photo: right foot
--- NOTE | 2023-01-04 09:42 | CASEMGMT ---
DEMETRIO LEON Assessment: Face to Face with pt for initial transition planning/care coordination assessment. DEMETRIO LEON introduced self and role at [facility], pt voices understanding and consents to assessment. Pt is A/O x4 and answers all questions appropriately at this time. Pt lying in bed with and dtr at bedside. Pt agreeable to assessment with visitors present. Care providers, pharmacy, and demographics verified/updated. Admitting Dx: cellulitis, right foot, possible osteomyelitis PCP:Rupesh Specialists:Gianna, eye; Elvi, nephro; [place], endo Preferred Pharmacy: [facility] Retail Insurance: [employer] Prescription Benefit: yes LNOK: [place], Living Arrangements: Pt lives with and dtr Ira in a two story home with no steps to enter. Pt has 9 steps to get to the livingroom and 7 steps to get to the bathroom and bedroom. Pt reports he is typically I in ADL's and denies concerns at home. Transportation: Pt drives self and denies concerns with transportation. Pt is able to transport him as needed. DME/HHC/SNF: Pt has a BGM and checks his blood sugars before meals. Pt reports he has sufficient supplies for his BGM and has insulin and needles. Pt does not have AD at home. Pt denies hx of HHC or SNF stays. Pt states no concerns with going home at time of dc. Provided pt with a verbal local in network list of DME companies, pt chose [employer]. Pt to have surgery today. ID is c/s. Pt states no further concerns/needs. CM to follow. Advised pt to ask CM if any further question/concerns/needs arise, voices understanding. Pt Goal: Home Plan: TBD pending surgery, follow for AD and need for atb
[2023-01-04] MEDS: DAKIN'S SOL HALF STRENGTH (=0.25%) 1 APPLIC TOPICAL (10:12)
[2023-01-04 10:19] LABS: Pathologist Review Reviewed
[2023-01-04 11:05] LABS: Bedside Glucose 150 mg/dL (74-106)
--- NOTE | 2023-01-04 11:06 | PCM.PN.HOSP ---
Subjective Subjective Doing well, no issues overnight. Right lower extremity is dressed Objective Data Objective Data Vital Signs: Vital Signs Temp Pulse Resp BP Pulse Ox O2 Del Method 99.4 F H 68 16 135/58 H 95 Room Air 01/04/23 11:02 01/04/23 11:02 01/04/23 11:02 01/04/23 11:02 01/04/23 11:02 01/04/23 11:02 Oxygen Delivery Method Room Air Weight: 192 lb 0.362 oz Body Mass Index (BMI) 27.5 Intake & Output: Intake and Output for Last 24 Hours 01/03/23 01/04/23 01/05/23 03:59 03:59 03:59 Intake Total 2766.67 / 2766.67 900 / 900 Output Total 300 / 300 Balance 2766.67 / 2766.67 600 / 600 Lab / Micro Data 01/04/23 05:30 01/04/23 05:30 Labs: Laboratory Results - last 24 hr 01/03/23 11:26: WBC 16.7 H, RBC 4.16 L, Hgb 11.8 L, Hct 35.9 L, MCV 86.3, MCH 28.4, MCHC 32.9, RDW Std Deviation 39.6, RDW Coeff of Yung 12.6, Plt Count 251, MPV 10.0, Immature Gran % (Auto) 0.500, Neut % (Auto) 82.9 H, Lymph % (Auto) 5.3 L, [place] % (Auto) 10.9 H, Eos % (Auto) 0.1, Baso % (Auto) 0.3, Absolute Neuts (auto) 13.8 H, Absolute Lymphs (auto) 0.89, Nucleated RBC % 0, Differential Comment COMMENT, Diff Path Review Reviewed, PT 14.1, INR 1.1, APTT 27.6, Sodium 137, Potassium 4.0, Chloride 104, Carbon Dioxide 24.0, Anion Gap 9, BUN 20 H, Creatinine 1.37 H, Estim Creat Clear Calc 54.02, Est GFR (MDRD) Af Amer 67, Est GFR (MDRD) Non-Af 55 L, BUN/Creatinine Ratio 14.6, Glucose 185 H, Lactic Acid 1.3, Calcium 9.1, Total Bilirubin 0.50, AST 13 L, ALT 14 L, Alkaline Phosphatase 58, Total Protein 7.4, Albumin 3.8, Globulin 3.6, Albumin/Globulin Ratio 1.1 01/03/23 12:29: Urine Color Yellow, Urine Clarity Clear, Urine pH 5.0, Ur Specific [place] 1.020, Urine Protein 30 H, Urine Glucose (UA) Normal, Urine Ketones 5 H, Urine Occult Blood Negative, Urine Nitrite Negative, Urine Bilirubin Negative, Urine Urobilinogen Normal, Ur Leukocyte Esterase 25 H, Urine RBC 0 SEEN, Urine WBC 0-5 SEEN, Ur Squamous Epith Cells 0-5 SEEN, Urine Bacteria 0 SEEN, Urine Mucus 0 SEEN 01/03/23 16:15: POC Glucose 214 H 01/03/23 20:50: POC Glucose 186 H 01/04/23 05:30: WBC 12.3 H, RBC 3.68 L, Hgb 10.7 L, Hct 32.0 L, MCV 87.0, MCH 29.1, MCHC 33.4, RDW Std Deviation 40.2, RDW Coeff of Yung 12.7, Plt Count 230, MPV 10.1, Immature Gran % (Auto) 0.300, Neut % (Auto) 78.2 H, Lymph % (Auto) 9.4 L, [place] % (Auto) 11.3 H, Eos % (Auto) 0.4, Baso % (Auto) 0.4, Absolute Neuts (auto) 9.7 H, Absolute Lymphs (auto) 1.16, Nucleated RBC % 0, Sodium 141, Potassium 3.8, Chloride 113 H, Carbon Dioxide 22.0, Anion Gap 6, BUN 15, Creatinine 1.09, Estim Creat Clear Calc 67.90, Est GFR (MDRD) Af Amer 87, Est GFR (MDRD) Non-Af 72, BUN/Creatinine Ratio 13.8, Glucose 154 H, Hemoglobin A1c 7.6 H, Calcium 8.3 L 01/04/23 06:26: POC Glucose 165 H 01/04/23 10:47: POC Glucose 150 H Micro: Microbiology 01/03/23 17:10 Tissue Ulcer - Plantar Tissue Culture - Preliminary Mixed Gram Pos & Gram Neg Org 01/03/23 12:29 Urine, Clean Catch Urine Culture - Preliminary Culture exhibits no growth. 01/03/23 12:05 Mucosa - Nasopharyngeal Respiratory Panel (PCR) - Final Radiography Diagnostic Testing: Radiology Impression Chest X-Ray 01/03/23 11:19 IMPRESSION: Borderline cardiomegaly. The lungs are clear. Electronically Signed: Yamil Hsu MD at 12:27 EDT , Foot X-Ray 01/03/23 11:23 IMPRESSION: Findings suggestive of possible osteomyelitis of the fifth metatarsophalangeal joint with overlying soft tissue swelling. Small amount of air is seen within the soft tissues. Electronically Signed: Yamil Hsu MD at 12:28 EDT , Lower Extremity MRI 01/03/23 13:14 IMPRESSION: 1. Plantar skin defect to the level of the fifth metatarsal head with at the fifth metatarsal head and second middle phalanx suspicious for osteomyelitis. 2. Multiple lytic tarsal and metatarsal bones lesions are new compared to 08/09/2013. Electronically Signed: Julius Hoff MD at 18:53 EDT , Physical Exam Narrative General: Alert, Oriented x3, Cooperative, No apparent distress HEENT: Atraumatic, PERRLA, EOMI, Normocephalic Oral: Moist Mucosa Neck: Supple, No JVD Lungs: Diminished, Normal air movement, No rhonchi, No wheeze, No rales Cardiovascular: Regular rate, Regular Rhythm, Normal S1, Normal S2, No murmurs Abdomen: Soft, Non Tender, Non-Distended, No Hepato-splenomegaly Extremities: No edema, Capillary Refill Less than 3 Seconds Skin: He does have an open wound at the head of his fifth metatarsal on the ball of his foot on the right with redness on the top of his foot, currently dressed Musculoskeletal: No Tenderness to Palpation of Joints or Extremities Neurological: Motor Exam 5/5 strength throughout, diminished sensation in bilateral legs Psych/Mental Status: Normal Affect, Appropriate Assessment & Plan Assessment/Plan (1) Cellulitis of foot, right: (2) Right foot infection: PLAN: Plan 1. Diabetic foot ulcer with osteomyelitis/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/status post renal transplant ? We will continue with his diabetic monitoring and make adjustments as necessary to his insulin ? Continue vancomycin and Zosyn ? We will consult podiatry ? MRI with osteomyelitis, will consult ID ? We will resume his home antirejection medications 2. HTN/HLD ? Blood stable ? Can resume his home blood pressure medications ? Resume his home cholesterol medications DVT: Lovenox Charges/Coding Visit Charges Inpatient E&M: 51613 Subs Hosp L2
--- NOTE | 2023-01-04 11:17 | NURSING ---
pt to surgery
--- NOTE | 2023-01-04 12:28 | RAD_ITS ---
STUDY: X-RAY - RIGHT FOOT CLINICAL: Male, 67 years old. PAIN TECHNIQUE: 11 C-arm view(s) of the foot. 13 seconds fluoroscopy time COMPARISON: None. FINDINGS: Several limited [id number] images of the forefoot for fluoroscopic guidance. Correlate with procedure note. Electronically Signed: Tavo Dye MD at 16:10 EDT , RAD/Foot 2 Views IMPRESSION: undefined
--- NOTE | 2023-01-04 13:44 | PCM.PN.ID ---
ID ID: Route of nutrition/ use of supplements: [] Nutritional Intake: [] IV Site: [] Morrissey Catheter: [] Assessment & Plan Assessment/Plan (1) Osteomyelitis: PLAN: Pt in OR, agree with current empiric abx. Reviewed labs, micro, imaging. Full consult to be done next week.
[2023-01-04] MEDS: Vancomycin IV 1,000 MG/20 ML Vial 1000 MG OPERA.SITE (13:50)
[2023-01-04] MEDS: Lidocaine 1% (20 ml mdv) 20 ML Vial (14:07)
[2023-01-04] MEDS: Bupivacaine Mpf 0.5% 30 ML VIAL (14:07)
--- NOTE | 2023-01-04 14:35 | EKG12_ITS ---
Test Reason : BIGEMINAL Blood Pressure : / mmHG Vent. Rate : 065 BPM Atrial Rate : 065 BPM P-R Int : 180 ms QRS Dur : 082 ms QT Int : 442 ms P-R-T Axes : 059 023 007 degrees QTc Int : 459 ms Sinus rhythm with frequent Premature ventricular complexes in a pattern of bigeminy Otherwise normal ECG When compared with ECG of 04-JAN-2023 05:31, MANUAL COMPARISON REQUIRED, DATA IS UNCONFIRMED Confirmed by MARYBETH LYNCH, LESLIE ([id number]), production editor MARTHA MERAZ ([id number]) on 01/09/2023 11:50:45 AM Referred By: CHANEL Confirmed By:JACKLYN RUEDA MD
--- NOTE | 2023-01-04 14:40 | SUR.PHASEI ---
THIS NURSE CONTACTED DR. ENG TO LET HIM KNOW THAT PATIENT WENT INTO VENTRICULAR TRIGEMINY. HE ORDERED EKG, BMP WITH MAGNESIUM AND TROPONIN. PATIENT DOESNT HAVE ANY HEART SX. FAMILY MADE AWARE BY THIS NURSE. AWAITING RESULTS.
[2023-01-04 14:58] LABS: Bedside Glucose 178 mg/dL (74-106)
[2023-01-04 16:18] LABS: Troponin-I HS 14 pg/mL (3.0-78.0)
[2023-01-04 16:24] LABS: ALB/GLOB Ratio 0.9 RATIO (0.9-2.4); AST(SGOT) 11 U/L (15-37); Alanine Aminotransfer ALT/SGPT 11 U/L (16-61); Alkaline Phosphatase 50 U/L (45-117); Anion Gap 8 (5-15); BUN 16 mg/dL (7-18); BUN/Creat Ratio 13.2 RATIO (10-20); Calcium,Total 8.7 mg/dL (8.5-10.1); Chloride 113 mmol/L (98-107); Creatinine, Serum 1.21 mg/dL (0.70-1.30); EST Glomerular Filtration Rate 64 mL/min (>60); Est Glom Filt Rate - Afr Amer 77 mL/min (>60); Estimated Creatinine Clearance 61.17 ml/min; Globulin 3.4 g/dL (2.2-4.2); Glucose 186 mg/dL (74-106); Magnesium 2.2 mg/dL (1.6-2.6); Potassium 4.4 mmol/L (3.5-5.1); Protein, Total 6.4 g/dL (6.4-8.2); Sodium Level 142 mmol/L (136-145)
--- NOTE | 2023-01-04 16:26 | PCM.OPRPT ---
Problems Associated Problem List Diagnoses (1) Type 2 diabetes mellitus with foot ulcer: (2) Diabetes mellitus with diabetic polyneuropathy: (3) 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 layer exposed: (4) Osteomyelitis: (5) Cellulitis of foot, right: Report of Operation Date of Procedure: 01/04/23 Pre-Operative Diagnosis: 1. Osteomyelitis fifth digit and fifth metatarsal head right foot 2. Neuropathic ulceration Sub fifth metatarsal head right foot 3. Cellulitis right foot 4. Diabetes mellitus type 2 with peripheral polyneuropathy Post-Operative Diagnosis: 1. Osteomyelitis fifth digit and fifth metatarsal head right foot 2. Neuropathic ulceration Sub fifth metatarsal head right foot 3. Cellulitis right foot 4. Diabetes mellitus type 2 with peripheral polyneuropathy Surgery/Procedure Performed:: Partial fifth ray amputation of the right foot Description of Surgical Findings:: See operative note for findings Surgeon: Lane Rojas histology tech: Oscar Wing DPM PGY-2 histology tech: Joe Espinal DPM PGY-1 Type of Anesthesia: Local (10 cc one-to-one mixture 1% lidocaine plain 0.5% Marcaine plain) and MAC Specimen's removed: Tissue fifth metatarsal right foot Bone fifth metatarsal right foot Drains: None Estimated Blood Loss (mL): < 15mL Description of Procedure: HPI/indication: This is a 67-year-old male with PMHx of DM type II with peripheral polyneuropathy and immunocompromise secondary to renal transplant. He presented to [facility] on 01/03/2023 with complaint of red swollen right foot. Patient stated he was unaware that there was an ulcer on the bottom of the foot and did not notice the redness on the foot until he took his sock off which prompted him to go to the ED. While in the ED work-up consisted of labs and radiograph of the right foot which was suspicious for osteomyelitis and thus MRI was ordered confirming osteomyelitis of the fifth digit and head of the fifth metatarsal of the right foot. He was empirically started on Vanco/Zosyn and podiatry was consulted for evaluation of right foot ulceration. Upon inspection there was an ulceration noted to the Sub fifth metatarsal head with surrounding hyperkeratosis with areas of darkened. Necrotic tissue at the base of the ulcer with some malodor noted. No erythema to the ulcerative site, no purulent drainage, no palpable fluctuance/bogginess noted, no visible abscess formation, no lymphangitic streaking. There was redness about the dorsum of the foot consistent with cellulitis. The ulceration did probe close to bone and measured 2 cm x 1.5 cm x 0.4 cm. I discussed with patient at this time the results of the MRI and discussed with him that amputation of the fifth digit and partial fifth metatarsal would be required to prevent further spread of infection. I discussed with him that this is a limb salvage procedure and amputation is necessary to prevent spread of infection to surrounding tissues and bone and also to prevent more proximal amputation. He is in agreement with the amputation. I discussed with the patient and the procedure in great detail. Discussed the rationale of the procedure in detail. Discussed the risk and complications procedure in detail. Discussed the risks include but are not limited to the following: Pain, continued pain, phantom pain, complex regional pain syndrome, neuritis/numbness, poor cosmetic result, scarring, dehiscence, infection, swelling, delayed healing/nonhealing, deformity, continue deformity, difficulty wearing shoes, difficulty with ambulation, transfer lesion, digital deformity, hematoma, blood clot, stroke, loss of function, loss of limb, loss of life. Patient was able to voice understanding of these and repeat these back. Patient is in agreement with the surgical plan and intervention. Patient willing to proceed forward with surgical intervention as he understands the necessity of the procedure. Consent was obtained for a partial fifth ray amputation of the right foot. He was scheduled to undergo partial fifth ray amputation at [facility] on 01/04/2023. Procedure: Under mild sedation patient brought to the operating placed on table in supine position. Following induction of IV anesthetic a local anesthetic block was performed about the proximal fifth ray consisting of 10 cc one-to-one mixture of 1% lidocaine plain and 0.5% Marcaine plain. No tourniquet was applied. The foot was then scrubbed, prepped, and draped in the usual aseptic manner. At this time attention was directed to the right foot fifth digit/metatarsal where multiple fluoroscopic views were obtained confirming presence of the fifth digit and fifth metatarsal head. Next, a linear incision was made proximal to at the midshaft of the fifth metatarsal and extended distally to a racquet shaped incision encompassing the fifth digit. The incision was deepened via sharp dissection to bone. The fifth metatarsal phalangeal joint was identified and the digit was sharply transected at this level and passed from the operative field to the table in total. Digit was sent to pathology for analysis. Upon incision and throughout the duration of the case it is noted that no purulent drainage nor malodor was appreciated. The fifth metatarsal head was then exposed and visualized at the operative field and noted to be dusky and crews in color, and bone noted to be soft consistent with osteomyelitis. Tissue lateral to the fifth metatarsal head was noted to be dark and necrotic in color and was sharply excised utilizing a #15 blade to healthy bleeding viable tissue. Necrotic tissue was collected for microbiology analysis. Next, the fifth metatarsal head was transected utilizing a sagittal saw and passed from the field to the table in total. The fifth metatarsal head was transected with a bone cutter with samples going to microbiology and pathology for analysis. Next, the site was irrigated with copious amounts of normal sterile saline. At the level of the midshaft of the fifth metatarsal sagittal saw was used to resect clearance fragment proximal to the confirmed osteomyelitis. During passing of the sagittal saw the bone was noted to be hard, healthy appearing and viable. Next the site was again irrigated with copious amounts of normal sterile saline. Surrounding tissues were inspected and noted to be healthy with viable bleeding. Attention was then directed to the plantar aspect of the right foot where the subfifth metatarsal head ulceration was excised and tissue flushed with copious amounts of normal sterile saline. The site on the plantar foot was then closed with 4-0 Vicryl and 3-0 Prolene in simple interrupted fashion. At this time fluoroscopic images were obtained in multiple views confirming resection of the fifth metatarsal. Next, 1 g of vancomycin powder was placed at the amputation stump and the deep tissue was closed with 4-0 Vicryl. Subcutaneous tissue was closed with 4-0 Monocryl. The skin was then reapproximated with 3-0 Prolene in simple interrupted fashion. Incision sites were then dressed with Betadine soaked Adaptic, 4 x 4 gauze, Kerlix, and 4 inch Lincoln wrap rolled onto the foot. Patient tolerated procedure and anesthesia well and was transported to PACU with vital signs stable and vascular status intact to the right foot. Following anesthesia protocol he will return to floor and continue to receive IV antibiotics. He will remain nonweightbearing to the right foot. He will continue to be followed in the postoperative course. Grafts/Implants Used: None Complications None Admit VTE Documentation VTE Present on Admission: No VTE Mechan Device Prophylaxis: SCD's VTE Pharm Prophylaxis ordered?: No Reason prophylaxis not ordered:: Procedure Not Indicated
[2023-01-04 17:24] LABS: Bedside Glucose 184 mg/dL (74-106)
[2023-01-04] MEDS: Insulin Glargine-YFGN 100 UNIT/ML Pen 25 UNIT SC (20:35)
[2023-01-04 21:02] LABS: Bedside Glucose 207 mg/dL (74-106)
[2023-01-04] MEDS: Acetaminophen 325 MG Tablet 650 MG PO (21:02)
--- NOTE | 2023-01-04 21:45 | RAD_ITS ---
STUDY: X-RAY - RIGHT FOOT CLINICAL: Male, 67 years old. Post-operative Partial 5th Ray Amputation Right TECHNIQUE: 3 view(s) of the foot. COMPARISON: 01/03/2023 FINDINGS: Normal talus, calcaneus, and tarsal bones. Normal visualized subtalar, talonavicular, calcaneocuboid, tarsal and tarsometatarsal articulations. Interval recent transmetatarsal interpretation of the fifth digit with subcutaneous emphysema. Normal metatarsophalangeal joint of the great toe. Normal tibial and fibular sesamoid bones. Normal interphalangeal joint of the great toe. Normal phalanges of the great toe. Normal second through fifth metatarsophalangeal joints. Normal interphalangeal joints and phalanges of the lesser toes. The soft tissue structures are unremarkable. RAD/Foot min 3 Views IMPRESSION: Status post recent transmetatarsal amputation of the fifth digit. Electronically Signed: Marco Yates MD at 22:28 EDT ,
[2023-01-05] VITALS (7 sets, daily range): BP systolic 142–162; BP diastolic 57–63; PULSE 72–78; RESP 16–20; TEMP 36.8–37.5; O2SAT 88–96
[2023-01-05 01:29] LABS: Vancomycin, Trough Level 4.9 ug/mL (5.0-15.0)
--- NOTE | 2023-01-05 02:12 | PCM.RX.CS ---
Consult Antibiotic Management Pharmacy has been consulted to manage selected antiobiotic: Vancomycin Type of Intervention Type of Consult: Follow-up Suspected Infection Suspected Infection: Skin/Soft tissue Labs Labs: Sodium 142 mmol/L (136-145) 01/04/23 15:15 Potassium 4.4 mmol/L (3.5-5.1) 01/04/23 15:15 Chloride 113 mmol/L (98-107) H 01/04/23 15:15 Carbon Dioxide 21.0 mmol/L (21.0-32.0) 01/04/23 15:15 Anion Gap 8 (5-15) 01/04/23 15:15 BUN 16 mg/dL (7-18) 01/04/23 15:15 Creatinine 1.21 mg/dL (0.70-1.30) 01/04/23 15:15 Est GFR (MDRD) Af Amer 77 mL/min (>60) 01/04/23 15:15 Est GFR (MDRD) Non-Af 64 mL/min (>60) 01/04/23 15:15 BUN/Creatinine Ratio 13.2 RATIO (10-20) 01/04/23 15:15 Glucose 186 mg/dL (74-106) H 01/04/23 15:15 Vancomycin Trough 4.9 ug/mL (5.0-15.0) L 01/05/23 00:42 Microbiology Microbiology: Microbiology 01/03/23 17:10 Tissue Ulcer - Plantar Gram Stain - Final 01/03/23 17:10 Tissue Ulcer - Plantar Tissue Culture - Preliminary Mixed Gram Pos & Gram Neg Org 01/03/23 12:29 Urine, Clean Catch Urine Culture - Preliminary Culture exhibits no growth. 01/03/23 12:05 Mucosa - Nasopharyngeal Respiratory Panel (PCR) - Final Goal Trough Goal Trough: 15-20 mcg/mL Pharmacy Plan for Drug Dosing Pharmacy Plan for Drug Dosing: VANCOMYCIN LEVEL RECEIVED Current Vancomycin Dose: Number of Doses Received: 2 (POSSIBLY 3 - SEE BELOW) Vancomycin Level: 4.9 Hours Since Last Dose: ?? Renal Function: 1.21 Renal Function Trend: STABLE Lab/Micro: PENDING Vancomycin Plan/Comments: Patient had a trough drawn which resulted in a value of 4.9 (goal 15-20). Of note; the patient had surgery today and nursing documentation said vancomycin was given in OR, no time noted. When reading the surgical note; it stated vancomycin powder was applied to the site. It is uncertain when the last dose of vancomycin was given, so trough is likely incorrect. Patient's 0100 dose was already hanging once trough resulted. In light of this, will continue current dose and recheck a trough prior to the next level. This should be a more accurate representation of a true trough. Pending Level: 01/05/23 @1230 Pharmacy Service will continue to monitor and adjust dosing as required.
[2023-01-05] MEDS: 0.9% Normal Saline 1,000 ML 100 ML IV (03:03)
[2023-01-05] MEDS: Insulin Lispro 100 UNIT/ML INSULN.PEN SC ×4 (06:18→21:07)
[2023-01-05 06:35] LABS: Absolute Lymphocyte Count 0.85 X10^3/uL (0.83-4.51); Absolute Neutrophil Count 11.2 X10^3/uL (2.0-7.7); Basophil# 0.06 X10^3/uL; Basophil% 0.4 % (0-1); Eosinophil# 0.12 X10^3/uL; Eosinophils% 0.9 % (0-5); Hematocrit 33.7 % (40-54); Hemoglobin 10.8 g/dL (13.0-16.5); Lymphocyte # 0.85 X10^3/ul (0.83-4.51); Lymphocyte % 6.3 % (19-41); Mean Corpuscular Hgb 28.6 pg (27.0-32.0); Mean Corpuscular Volume 89.4 fL (80-94); Mean Platelet Vol. 10.5 fl (6.2-12.0); Monocyte# 1.22 X10^3/uL; NRBC Flagged by Analyzer 0 % (0-5); Neutrophil # 11.24 X10^3/uL (2.7-7.7); Neutrophil % 82.7 % (47-70); Platelet Count 276 K/mm3 (150-450); RBC Distribution Width CV 12.8 % (11.6-14.6); RBC Distribution Width SD 41.6 fl (35.1-43.9); Red Blood Count 3.77 M/mm3 (4.6-6.2); White Blood Count 13.6 K/mm3 (4.4-11.0)
[2023-01-05 06:39] LABS: Bedside Glucose 155 mg/dL (74-106)
[2023-01-05 07:33] LABS: Anion Gap 7 (5-15); BUN 14 mg/dL (7-18); BUN/Creat Ratio 13.1 RATIO (10-20); Calcium,Total 8.9 mg/dL (8.5-10.1); Chloride 116 mmol/L (98-107); Creatinine, Serum 1.07 mg/dL (0.70-1.30); EST Glomerular Filtration Rate 73 mL/min (>60); Est Glom Filt Rate - Afr Amer 89 mL/min (>60); Estimated Creatinine Clearance 69.17 ml/min; Glucose 155 mg/dL (74-106); Potassium 3.7 mmol/L (3.5-5.1); Sodium Level 143 mmol/L (136-145)
--- NOTE | 2023-01-05 07:59 | PCM.PN.HOSP ---
Reason for Visit Reason for Visit: Diagnoses Type 2 diabetes mellitus with diabetic polyneuropathy (01/03/23) Type 2 diabetes mellitus with foot ulcer (01/03/23) Cellulitis of right lower limb (01/03/23) Local infection of the skin and subcutaneous tissue, unspecified (01/03/23) Non-pressure chronic ulcer of other part of unspecified foot with unspecified severity (01/03/23) Non-pressure chronic ulcer of other part of right foot with fat layer exposed (01/03/23) Osteomyelitis, unspecified (01/03/23) Subjective Subjective Patient denies any pain this a.m., feeling fairly well. Was up and able to go to the bathroom. Objective Data Objective Data Vital Signs: Vital Signs Temp Pulse Resp BP Pulse Ox O2 Del Method O2 Flow Rate 99.5 F H 72 18 142/58 H 93 Room Air 2 01/05/23 03:01 01/05/23 03:01 01/05/23 03:01 01/05/23 03:01 01/05/23 03:01 01/05/23 03:01 01/04/23 17:11 Oxygen Flow Rate (L/min) 2 Oxygen Delivery Method Room Air Weight: 87.1 kg Body Mass Index (BMI) 27.5 Intake & Output: Intake and Output for Last 24 Hours 01/03/23 01/04/23 01/05/23 23:59 23:59 23:59 Intake Total 1225 / 1225 3425.00 / 3775.00 2115 / 2115 Output Total 900 / 1400 900 / 900 Balance 1225 / 1225 2525.00 / 2375.00 1215 / 1215 Lab / Micro Data 01/05/23 05:27 01/05/23 05:27 Labs: Laboratory Results - last 24 hr 01/03/23 11:26: Diff Path Review Reviewed 01/04/23 10:47: POC Glucose 150 H 01/04/23 14:40: POC Glucose 178 H 01/04/23 15:15: Sodium 142, Potassium 4.4, Chloride 113 H, Carbon Dioxide 21.0, Anion Gap 8, BUN 16, Creatinine 1.21, Estim Creat Clear Calc 61.17, Est GFR (MDRD) Af Amer 77, Est GFR (MDRD) Non-Af 64, BUN/Creatinine Ratio 13.2, Glucose 186 H, Calcium 8.7, Magnesium 2.2, Total Bilirubin 0.40, AST 11 L, ALT 11 L, Alkaline Phosphatase 50, Troponin I High Sens 14, Total Protein 6.4, Albumin 3.0 L, Globulin 3.4, Albumin/Globulin Ratio 0.9 01/04/23 17:04: POC Glucose 184 H 01/04/23 20:33: POC Glucose 207 H 01/05/23 00:42: Vancomycin Trough 4.9 L 01/05/23 05:27: WBC 13.6 H, RBC 3.77 L, Hgb 10.8 L, Hct 33.7 L, MCV 89.4, MCH 28.6, MCHC 32.0, RDW Std Deviation 41.6, RDW Coeff of Yung 12.8, Plt Count 276, MPV 10.5, Immature Gran % (Auto) 0.700, Neut % (Auto) 82.7 H, Lymph % (Auto) 6.3 L, [place] % (Auto) 9.0, Eos % (Auto) 0.9, Baso % (Auto) 0.4, Absolute Neuts (auto) 11.2 H, Absolute Lymphs (auto) 0.85, Nucleated RBC % 0, Sodium 143, Potassium 3.7, Chloride 116 H, Carbon Dioxide 20.0 L, Anion Gap 7, BUN 14, Creatinine 1.07, Estim Creat Clear Calc 69.17, Est GFR (MDRD) Af Amer 89, Est GFR (MDRD) Non-Af 73, BUN/Creatinine Ratio 13.1, Glucose 155 H, Calcium 8.9 01/05/23 06:16: POC Glucose 155 H Micro: Microbiology 01/03/23 12:29 Urine, Clean Catch Urine Culture - Final Culture exhibits no growth. 01/03/23 17:10 Tissue Ulcer - Plantar Gram Stain - Final 01/03/23 17:10 Tissue Ulcer - Plantar Tissue Culture - Preliminary Mixed Gram Pos & Gram Neg Org 01/03/23 12:05 Mucosa - Nasopharyngeal Respiratory Panel (PCR) - Final Radiography Diagnostic Testing: Radiology Impression Foot X-Ray 01/04/23 12:28 IMPRESSION: undefined Foot X-Ray 01/04/23 21:45 IMPRESSION: Status post recent transmetatarsal amputation of the fifth digit. Electronically Signed: Marco Yates MD at 22:28 EDT , Physical Exam Narrative General: Alert, oriented, no apparent distress HEENT: Atraumatic, normocephalic Eyes: Anicteric, normal conjunctiva, extraocular movements grossly intact Neck: Supple Respiratory: Clear to auscultation bilaterally, normal respiratory effort Cardiovascular: Regular rate and rhythm GI: Soft, nontender, nondistended Extremities: No edema, right foot wrapped Musculoskeletal: Moving all extremities Neuro: No overt focal neurological deficits, has tremor in both hands which he reports is chronic Skin: No rashes appreciated Psych: Cooperative Assessment & Plan Assessment/Plan (1) Cellulitis of foot, right: (2) Right foot infection: PLAN: Plan 1. Diabetic foot ulcer with osteomyelitis/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/status post renal transplant ? We will continue with his diabetic monitoring and make adjustments as necessary to his insulin ? Continue vancomycin and Zosyn ? We will consult podiatry ? MRI with osteomyelitis, will consult ID ? We will resume his home antirejection medications -01/05: Patient went to the OR with Dr. 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 Did spike temperature of 101.2 overnight, blood cultures pending. Preop cultures growing gram-negative howard and gram-positive organisms, Intra-Op cultures prelim with alphahemolytic organism, further speciation and cultures pending. Remains on vancomycin and Zosyn, ID following. Continue tacrolimus for history of kidney transplant. Will obtain tacrolimus level 2. Type 2 diabetes mellitus -Glucose checks and sliding scale insulin -Also on glargine 25 nightly 3. HTN/HLD ? Blood stable ? Can resume his home blood pressure medications ? Resume his home cholesterol medications DVT: Lovenox subq Time spent in the patient's overall evaluation,decision-making process, review of diagnostic data, adjustment of management, discussion with other providers, nursing nursing and ancillary staff involved in patient's care documentation, 37 minutes Charges/Coding Visit Charges Inpatient E&M: [id number] [facility] L3
[2023-01-05] MEDS: Atorvastatin Calcium 20 MG Tablet PO (08:47)
[2023-01-05] MEDS: MYCOPHENOLATE SODIUM 360 MG TABLET.DR 720 MG PO ×2 (08:47→21:07)
[2023-01-05] MEDS: Enoxaparin 40 MG/0.4 ML Syringe SC (08:48)
[2023-01-05] MEDS: NIFEdipine 30 MG Tablet PO (08:48)
[2023-01-05] MEDS: Finasteride 5 MG Tablet PO (08:54)
[2023-01-05] MEDS: Labetalol 100 MG Tablet 150 MG PO ×2 (08:54→21:06)
[2023-01-05 11:35] LABS: Bedside Glucose 213 mg/dL (74-106)
--- NOTE | 2023-01-05 14:47 | PN_ITS ---
Subjective Subjective Patient seen this afternoon resting bedside in chair with feet elevated. is present. Denies any pain. States he was up to go to the bathroom and did remain nonweightbearing to the right foot. Therapy did come into begin working with him to maintain nonweightbearing status of the right lower extremity. Amador reina states he did spike fever overnight, however patient states he feels pretty good currently. He denies further complaints. Objective Data Objective Data Vital Signs: Vital Signs Temp Pulse Resp BP Pulse Ox O2 Del Method O2 Flow Rate 98.3 F 73 18 162/57 H 92 Room Air 2 01/05/23 08:42 01/05/23 08:42 01/05/23 08:42 01/05/23 08:42 01/05/23 08:42 01/05/23 09:00 01/04/23 17:11 Oxygen Flow Rate (L/min) 2 Oxygen Delivery Method Room Air Weight: 87.1 kg Body Mass Index (BMI) 27.5 Intake & Output: Intake and Output for Last 24 Hours 01/03/23 01/04/23 01/05/23 23:59 23:59 23:59 Intake Total 1225 / 1225 3425.00 / 3775.00 2515 / 2515 Output Total 900 / 1400 900 / 900 Balance 1225 / 1225 2525.00 / 2375.00 1615 / 1615 Lab / Micro Data 01/05/23 05:27 01/05/23 05:27 Labs: Laboratory Results - last 24 hr 01/04/23 14:40: POC Glucose 178 H 01/04/23 15:15: Sodium 142, Potassium 4.4, Chloride 113 H, Carbon Dioxide 21.0, Anion Gap 8, BUN 16, Creatinine 1.21, Estim Creat Clear Calc 61.17, Est GFR (MDRD) Af Amer 77, Est GFR (MDRD) Non-Af 64, BUN/Creatinine Ratio 13.2, Glucose 186 H, Calcium 8.7, Magnesium 2.2, Total Bilirubin 0.40, AST 11 L, ALT 11 L, Alkaline Phosphatase 50, Troponin I High Sens 14, Total Protein 6.4, Albumin 3.0 L, Globulin 3.4, Albumin/Globulin Ratio 0.9 01/04/23 17:04: POC Glucose 184 H 01/04/23 20:33: POC Glucose 207 H 01/05/23 00:42: Vancomycin Trough 4.9 L 01/05/23 05:27: WBC 13.6 H, RBC 3.77 L, Hgb 10.8 L, Hct 33.7 L, MCV 89.4, MCH 28.6, MCHC 32.0, RDW Std Deviation 41.6, RDW Coeff of Yung 12.8, Plt Count 276, MPV 10.5, Immature Gran % (Auto) 0.700, Neut % (Auto) 82.7 H, Lymph % (Auto) 6.3 L, [place] % (Auto) 9.0, Eos % (Auto) 0.9, Baso % (Auto) 0.4, Absolute Neuts (auto) 11.2 H, Absolute Lymphs (auto) 0.85, Nucleated RBC % 0, Sodium 143, Potassium 3.7, Chloride 116 H, Carbon Dioxide 20.0 L, Anion Gap 7, BUN 14, Creatinine 1.07, Estim Creat Clear Calc 69.17, Est GFR (MDRD) Af Amer 89, Est GFR (MDRD) Non-Af 73, BUN/Creatinine Ratio 13.1, Glucose 155 H, Calcium 8.9 01/05/23 06:16: POC Glucose 155 H 01/05/23 11:16: POC Glucose 213 H 01/05/23 12:19: Vancomycin Trough 7.0 Micro: Microbiology 01/04/23 13:37 Tissue - 5th Metatarsal Bone Gram Stain - Final 01/04/23 13:37 Tissue - 5th Metatarsal Bone Wound Culture - Preliminary Alpha hemolytic organism 01/04/23 13:39 Tissue - 5th Toe Wound Culture - Preliminary Alpha hemolytic organism 01/04/23 13:34 Tissue - 5th Toe Gram Stain - Final 01/04/23 13:34 Tissue - 5th Toe Wound Culture - Preliminary Alpha hemolytic organism 01/03/23 12:23 Blood Culture (Wb) - Anticubital Right Blood Culture - Preliminary No growth in 48 hours. 01/03/23 11:26 Blood Culture (Wb) - Anticubital Right Blood Culture - Preliminary No growth in 48 hours. 01/03/23 17:10 Tissue Ulcer - Plantar Gram Stain - Final 01/03/23 17:10 Tissue Ulcer - Plantar Tissue Culture - Preliminary Gram negative howard Gram negative howard#2 Gram positive organism 01/03/23 12:29 Urine, Clean Catch Urine Culture - Final Culture exhibits no growth. 01/03/23 12:05 Mucosa - Nasopharyngeal Respiratory Panel (PCR) - Final Radiography Diagnostic Testing: Radiology Impression Foot X-Ray 01/04/23 12:28 IMPRESSION: undefined Foot X-Ray 01/04/23 21:45 IMPRESSION: Status post recent transmetatarsal amputation of the fifth digit. Electronically Signed: Marco Yates MD at 22:28 EDT , Physical Exam Const alert, oriented x3 and no apparent distress General Appearance: cooperative HEENT normocephalic Eyes General Eye: normal appearance of both eyes Neck General: normal visual inspection Lymph Lymphatic: no lymphadenopathy noted and no lymphedema noted Resp normal respiratory effort Cardio regular rate and regular rhythm Extremity normal capillary refill, no joint enlargement, no calf tenderness and no pedal edema Extremity Narrative: DP and PT pulses palpable with adequate capillary fill time to the right foot. Dermatological: There is erythema of the dorsal lateral foot with some darkened/purplish appearance dorsal lateral fifth metatarsal head, which is improving. Sutures intact at plantar fifth metatarsal site, and sutures intact to the dorsal aspect of the fifth metatarsal amputation stump. Erythema is improving. There is some bloody strikethrough to the internal dressings postsurgical intervention. Musculoskeletal: Muscle strength 5 of 5 age-appropriate. Decreased range of motion of the ankle joint in dorsiflexion with the knee extended without pain or crepitus. There is decreased range of motion of the first metatarsophalangeal joint. 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 DOS 01/04/2023. POD #1 Imaging: Radiographs obtained of the right foot on 01/03/2023 demonstrate possible osteomyelitis of the fifth metatarsal head with some soft tissue air secondary to ulcer. MRI was obtained 01/03/2023, findings: Fifth metatarsal head and questionable second middle phalanx STIR hyperintensity and T1 hypointensity. Multiple tarsal and metatarsal lytic lesions. Impression: 1. Plantar skin defect to the level of the fifth metatarsal head with at the fifth metatarsal head and second middle phalanx suspicious for osteomyelitis. 2. Multiple lytic tarsal and metatarsal bone lesions are new compared to 08/09/2013. I have independently reviewed radiographic imaging and MRI and do concur with likely diagnosis of osteomyelitis of the fifth metatarsal head. Right foot: There is erythema of the dorsal lateral foot with some darkened/purplish appearance dorsal lateral fifth metatarsal head, which is improving. Sutures intact at plantar fifth metatarsal site, and sutures intact to the dorsal aspect of the fifth metatarsal amputation stump. Erythema is improving. There is some bloody strikethrough to the internal dressings postsurgical intervention. Incision sites painted with Betadine and dressed with Adaptic, 4 x 4 gauze, ABD, Kerlix, 4 inch Lincoln wrap rolled onto the foot. Dressing to be changed daily. Wound care nurse to assist in dressing changes. WBC 16.7 upon admission, decreased to 13.6 currently; last hemoglobin A1c 11/28/2022 was 8%. Blood cultures currently demonstrate no growth Tissue culture from 01/03/2023 prior to surgical intervention demonstrates gram- negative howard x2 and gram-positive organism Surgical cultures from 01/04/2023: Fifth toe demonstrates alphahemolytic organism, gram-positive cocci; tissue of the fifth metatarsal demonstrates alphahemolytic organism; fifth metatarsal bone demonstrates alphahemolytic organism. 1 g of vancomycin powder was placed about the fifth metatarsal prior to closure. Currently on IV Vanco/Zosyn All questions were answered to patient and satisfaction He is to remain nonweightbearing to the right foot with assistance of walker. He is to continue elevating right foot at all times of rest for postoperative edema control Pain: Currently denies pain secondary to diabetic peripheral polyneuropathy, however may take pain medication as needed. Medicine team currently following for medical management, they are greatly appreciated Infectious disease following for antibiotic management Wound care nurse following for assisting dressing changes Podiatry will continue to follow Please do not hesitate to call for any questions or concerns Jr[facility] Henderson[facility] [phone]
--- NOTE | 2023-01-05 14:48 | PCM.RX.CS ---
Consult Antibiotic Management Pharmacy has been consulted to manage selected antiobiotic: Vancomycin Type of Intervention Type of Consult: Follow-up Suspected Infection Suspected Infection: Osteomyelitis Labs Labs: Sodium 143 mmol/L (136-145) 01/05/23 05:27 Potassium 3.7 mmol/L (3.5-5.1) 01/05/23 05:27 Chloride 116 mmol/L (98-107) H 01/05/23 05:27 Carbon Dioxide 20.0 mmol/L (21.0-32.0) L 01/05/23 05:27 Anion Gap 7 (5-15) 01/05/23 05:27 BUN 14 mg/dL (7-18) 01/05/23 05:27 Creatinine 1.07 mg/dL (0.70-1.30) 01/05/23 05:27 Est GFR (MDRD) Af Amer 89 mL/min (>60) 01/05/23 05:27 Est GFR (MDRD) Non-Af 73 mL/min (>60) 01/05/23 05:27 BUN/Creatinine Ratio 13.1 RATIO (10-20) 01/05/23 05:27 Glucose 155 mg/dL (74-106) H 01/05/23 05:27 Vancomycin Trough 7.0 ug/mL (5.0-15.0) 01/05/23 12:19 Microbiology Microbiology: Microbiology 01/04/23 13:37 Tissue - 5th Metatarsal Bone Gram Stain - Final 01/04/23 13:37 Tissue - 5th Metatarsal Bone Wound Culture - Preliminary Alpha hemolytic organism 01/04/23 13:39 Tissue - 5th Toe Wound Culture - Preliminary Alpha hemolytic organism 01/04/23 13:34 Tissue - 5th Toe Gram Stain - Final 01/04/23 13:34 Tissue - 5th Toe Wound Culture - Preliminary Alpha hemolytic organism 01/03/23 12:23 Blood Culture (Wb) - Anticubital Right Blood Culture - Preliminary No growth in 48 hours. 01/03/23 11:26 Blood Culture (Wb) - Anticubital Right Blood Culture - Preliminary No growth in 48 hours. 01/03/23 17:10 Tissue Ulcer - Plantar Gram Stain - Final 01/03/23 17:10 Tissue Ulcer - Plantar Tissue Culture - Preliminary Gram negative howard Gram negative howard#2 Gram positive organism 01/03/23 12:29 Urine, Clean Catch Urine Culture - Final Culture exhibits no growth. 01/03/23 12:05 Mucosa - Nasopharyngeal Respiratory Panel (PCR) - Final Dosing Weight Weight used for dosin.1 kg Goal Trough Goal Trough: 15-20 mcg/mL Pharmacy Plan for Drug Dosing Pharmacy Plan for Drug Dosing: VANCOMYCIN LEVEL RECEIVED Current Vancomycin Dose: 750mg q12h () Number of Doses Received: x1 1250mg dose, x2 750mg doses (+1 dose missed due to surgery) Vancomycin Level: 7.0 Hours Since Last Dose: 11 hours since last dose Renal Function: SrCr 1.07 Renal Function Trend: SrCr stable Lab/Micro: Vancomycin Plan/Comments: Note: pt is on rejection medications for previous kidney transplant. Resulted trough of is below the ordered goal trough of 15-20. due to previous kidney transplant, recommend a judicious increase in dose to 1000mg q12h. check trough prior to the 4th dose Pending Level: 01/07/23 at 0230 Pharmacy Service will continue to monitor and adjust dosing as required. Follow-Up Labs Follow-Up Labs: Trough: Vancomycin (01/07/23 @ 0230)
[2023-01-05] MEDS: 0.9% Saline Lock 10 ML Syringe IV ×2 (15:26→17:58)
[2023-01-05] MEDS: Vancomycin IV 1,000 MG/200 ML BAG 200 MG IV (15:27)
[2023-01-05] MEDS: DAKIN'S SOL HALF STRENGTH (=0.25%) 1 APPLIC TOPICAL (15:27)
[2023-01-05 16:52] LABS: Bedside Glucose 235 mg/dL (74-106)
[2023-01-05] MEDS: Ondansetron 4 MG/2 ML Vial IV (17:58)
[2023-01-05] MEDS: Insulin Glargine-YFGN 100 UNIT/ML Pen 25 UNIT SC (21:08)
[2023-01-05 21:32] LABS: Bedside Glucose 241 mg/dL (74-106)
[2023-01-06] VITALS (8 sets, daily range): BP systolic 136–156; BP diastolic 56–67; PULSE 64–71; RESP 16–18; TEMP 36.5–37.5; O2SAT 93–96
[2023-01-06] MEDS: Ondansetron 4 MG/2 ML Vial IV (01:59)
[2023-01-06] MEDS: Acetaminophen 325 MG Tablet 650 MG PO ×3 (02:07→18:35)
[2023-01-06] MEDS: Vancomycin IV 1,000 MG/200 ML BAG 200 MG IV ×2 (03:07→18:28)
--- NOTE | 2023-01-06 04:00 | NURSING ---
pt called thinking his sugar was low since he was all cold and sweaty, i did give him tylenol 2 hours ago for a low grade fever. bs was 185. pt c/o nausea and is dry heaving, zofran was given 2 hours ago also. lungs w few crackles to the bases, pt seems to be coughing more. is using the IS well.
[2023-01-06 04:05] LABS: Bedside Glucose 185 mg/dL (74-106)
--- NOTE | 2023-01-06 04:30 | PCM.HOSP.N ---
Hospitalist Note Patient with increased oxygenation requirements, encouraged aggressive IS, will obtain AM CXR.
[2023-01-06] MEDS: proCHLORPERazine 10 MG/2 ML Vial 5 MG IV ×2 (04:55→14:32)
--- NOTE | 2023-01-06 05:45 | RAD_ITS ---
STUDY: X-RAY CHEST REASON FOR EXAM: Male, 67 years old. Hypoxia TECHNIQUE: PA and lateral views of the chest. COMPARISON: 01/03/2023 FINDINGS: The lungs are clear and expanded. There is no demonstrated pleural abnormality. Normal size heart. Normal mediastinum and nader. Normal visualized pulmonary arteries. Normal visualized aortic arch and descending thoracic aorta. Normal visualized thoracic spine. Normal visualized ribs, clavicles, and shoulders. There is no demonstrated abnormality of the visualized soft tissue structures of the upper abdomen. RAD/Chest PA and Lateral IMPRESSION: Normal x-ray examination of the chest. Electronically Signed: Marco Yates MD at 8:31 EDT ,
[2023-01-06 07:04] LABS: Absolute Lymphocyte Count 0.72 X10^3/uL (0.83-4.51); Absolute Neutrophil Count 13.2 X10^3/uL (2.0-7.7); Basophil# 0.06 X10^3/uL; Basophil% 0.4 % (0-1); Eosinophil# 0.03 X10^3/uL; Eosinophils% 0.2 % (0-5); Hemoglobin 10.3 g/dL (13.0-16.5); Lymphocyte # 0.72 X10^3/ul (0.83-4.51); Lymphocyte % 4.7 % (19-41); Mean Corp Hgb Conc 32.2 g/dL (32-36); Mean Corpuscular Hgb 28.4 pg (27.0-32.0); Mean Corpuscular Volume 88.2 fL (80-94); Mean Platelet Vol. 10.5 fl (6.2-12.0); Monocyte# 1.08 X10^3/uL; Monocyte% 7.1 % (0-10); NRBC Flagged by Analyzer 0 % (0-5); Neutrophil # 13.15 X10^3/uL (2.7-7.7); Neutrophil % 86.7 % (47-70); Platelet Count 294 K/mm3 (150-450); RBC Distribution Width CV 12.7 % (11.6-14.6); RBC Distribution Width SD 41.1 fl (35.1-43.9); Red Blood Count 3.63 M/mm3 (4.6-6.2); White Blood Count 15.2 K/mm3 (4.4-11.0)
[2023-01-06] MEDS: Insulin Lispro 100 UNIT/ML INSULN.PEN SC ×4 (07:14→20:42)
[2023-01-06 07:34] LABS: Bedside Glucose 240 mg/dL (74-106)
[2023-01-06 07:35] LABS: ALB/GLOB Ratio 0.7 RATIO (0.9-2.4); AST(SGOT) 16 U/L (15-37); Alanine Aminotransfer ALT/SGPT 12 U/L (16-61); Albumin, Serum 2.6 g/dL (3.2-5.0); Alkaline Phosphatase 49 U/L (45-117); Anion Gap 7 (5-15); BUN 10 mg/dL (7-18); BUN/Creat Ratio 9.7 RATIO (10-20); Calcium,Total 8.7 mg/dL (8.5-10.1); Chloride 110 mmol/L (98-107); Creatinine, Serum 1.03 mg/dL (0.70-1.30); EST Glomerular Filtration Rate 76 mL/min (>60); Est Glom Filt Rate - Afr Amer 93 mL/min (>60); Estimated Creatinine Clearance 71.86 ml/min; Globulin 3.8 g/dL (2.2-4.2); Glucose 235 mg/dL (74-106); Potassium 3.6 mmol/L (3.5-5.1); Protein, Total 6.4 g/dL (6.4-8.2); Sodium Level 137 mmol/L (136-145)
--- NOTE | 2023-01-06 08:02 | PN.HOSP_ITS ---
Reason for Visit Reason for Visit: Diagnoses Type 2 diabetes mellitus with diabetic polyneuropathy (01/03/23) Type 2 diabetes mellitus with foot ulcer (01/03/23) Cellulitis of right lower limb (01/03/23) Local infection of the skin and subcutaneous tissue, unspecified (01/03/23) Non-pressure chronic ulcer of other part of unspecified foot with unspecified severity (01/03/23) Non-pressure chronic ulcer of other part of right foot with fat layer exposed (01/03/23) Osteomyelitis, unspecified (01/03/23) Subjective Subjective Did have some short of breath overnight was put on 2 L nasal cannula, overall is feeling better today than he did yesterday however Objective Data Objective Data Vital Signs: Vital Signs Temp Pulse Resp BP Pulse Ox O2 Del Method O2 Flow Rate 99.5 F H 71 18 136/56 H 94 Nasal Cannula 3 01/06/23 03:11 01/06/23 03:11 01/06/23 03:11 01/06/23 03:11 01/06/23 03:11 01/06/23 03:11 01/06/23 03:11 Oxygen Flow Rate (L/min) 3 Oxygen Delivery Method Nasal Cannula Weight: 87.1 kg Body Mass Index (BMI) 27.5 Intake & Output: Intake and Output for Last 24 Hours 01/04/23 01/05/23 01/06/23 23:59 23:59 23:59 Intake Total 3425.00 / 3775.00 4065 / 4065 250 / 250 Output Total 900 / 1400 900 / 1250 350 / 350 Balance 2525.00 / 2375.00 3165 / 2815 -100 / -100 Lab / Micro Data 01/06/23 05:30 01/06/23 05:30 Labs: Laboratory Results - last 24 hr 01/05/23 11:16: POC Glucose 213 H 01/05/23 12:19: Vancomycin Trough 7.0 01/05/23 16:33: POC Glucose 235 H 01/05/23 21:03: POC Glucose 241 H 01/06/23 03:45: POC Glucose 185 H 01/06/23 05:30: WBC 15.2 H, RBC 3.63 L, Hgb 10.3 L, Hct 32.0 L, MCV 88.2, MCH 28.4, MCHC 32.2, RDW Std Deviation 41.1, RDW Coeff of Yung 12.7, Plt Count 294, MPV 10.5, Immature Gran % (Auto) 0.900, Neut % (Auto) 86.7 H, Lymph % (Auto) 4.7 L, [place] % (Auto) 7.1, Eos % (Auto) 0.2, Baso % (Auto) 0.4, Absolute Neuts (auto) 13.2 H, Absolute Lymphs (auto) 0.72 L, Nucleated RBC % 0, Sodium 137, Potassium 3.6, Chloride 110 H, Carbon Dioxide 20.0 L, Anion Gap 7, BUN 10, Creatinine 1.03, Estim Creat Clear Calc 71.86, Est GFR (MDRD) Af Amer 93, Est GFR (MDRD) Non-Af 76, BUN/Creatinine Ratio 9.7 L, Glucose 235 H, Calcium 8.7, Total B ilirubin 0.50, AST 16, ALT 12 L, Alkaline Phosphatase 49, Total Protein 6.4, Albumin 2.6 L, Globulin 3.8, Albumin/Globulin Ratio 0.7 L 01/06/23 07:12: POC Glucose 240 H Micro: Microbiology 01/03/23 17:10 Tissue Ulcer - Plantar Gram Stain - Final 01/03/23 17:10 Tissue Ulcer - Plantar Tissue Culture - Preliminary Klebsiella oxytoca Pseudomonas aeruginosa Gram positive organism 01/04/23 13:37 Tissue - 5th Metatarsal Bone Gram Stain - Final 01/04/23 13:37 Tissue - 5th Metatarsal Bone Wound Culture - Preliminary Alpha hemolytic organism 01/04/23 13:39 Tissue - 5th Toe Wound Culture - Preliminary Alpha hemolytic organism 01/04/23 13:34 Tissue - 5th Toe Gram Stain - Final 01/04/23 13:34 Tissue - 5th Toe Wound Culture - Preliminary Alpha hemolytic organism 01/03/23 12:23 Blood Culture (Wb) - Anticubital Right Blood Culture - Preliminary No growth in 48 hours. 01/03/23 11:26 Blood Culture (Wb) - Anticubital Right Blood Culture - Preliminary No growth in 48 hours. 01/03/23 12:29 Urine, Clean Catch Urine Culture - Final Culture exhibits no growth. 01/03/23 12:05 Mucosa - Nasopharyngeal Respiratory Panel (PCR) - Final Physical Exam Narrative General: Alert, oriented, no apparent distress HEENT: Atraumatic, normocephalic Eyes: Anicteric, normal conjunctiva, extraocular movements grossly intact Neck: Supple Respiratory: No significant wheezes or rhonchi, normal respiratory effort Cardiovascular: Regular rate and rhythm GI: Soft, nontender, nondistended Extremities: No significant edema, right foot wrapped Musculoskeletal: Moving all extremities Neuro: No overt focal neurological deficits, has tremor in both hands which he reports is chronic Skin: No rashes appreciated Psych: Cooperative Assessment & Plan Assessment/Plan (1) Cellulitis of foot, right: (2) Right foot infection: PLAN: Plan #Diabetic foot ulcer with osteomyelitis/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/status post renal transplant ? We will continue with his diabetic monitoring and make adjustments as necessary to his insulin ? Continue vancomycin and Zosyn ? We will consult podiatry ? MRI with osteomyelitis, will consult ID ? We will resume his home antirejection medications -01/05: Patient went to the OR with Dr. 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 Did spike temperature of 101.2 overnight, blood cultures pending. Preop cultures growing gram-negative howard and gram-positive organisms, Intra-Op cultures prelim with alphahemolytic organism, further speciation and cultures pending. Remains on vancomycin and Zosyn, ID following. Continue tacrolimus for history of kidney transplant. Will obtain tacrolimus level -01/06: Preliminary cultures with alphahemolytic organism intraoperatively, initial wound culture with Klebsiella and Pseudomonas, given patient is improving we will continue current antibiotics, blood cultures no growth to date. Infectious disease to reevaluate this week, continue to follow cultures #Hypoxia -Pt desaturated to 88% on RA last night with no hx of O2 use -Chest x-ray read pending -Patient on 3 L O2 with O2 sat of 94% -Patient has received IVF, is possible he could retain fluid -Hold further IVF, monitor clinically, chest x-ray reports no acute process #Type 2 diabetes mellitus -Glucose checks and sliding scale insulin -Also on glargine 25 nightly #HTN/HLD ? Blood stable ? Can resume his home blood pressure medications ? Resume his home cholesterol medications DVT: Lovenox subq Time spent in the patient's overall evaluation,decision-making process, review of diagnostic data, adjustment of management, discussion with other providers, nursing nursing and ancillary staff involved in patient's care documentation, 37 minutes Charges/Coding Visit Charges Inpatient E&M: 55308 Subs Hosp L3
[2023-01-06] MEDS: MYCOPHENOLATE SODIUM 360 MG TABLET.DR 720 MG PO ×2 (08:56→20:40)
[2023-01-06] MEDS: Labetalol 100 MG Tablet 150 MG PO ×2 (09:05→20:41)
[2023-01-06] MEDS: Enoxaparin 40 MG/0.4 ML Syringe SC (09:05)
[2023-01-06] MEDS: Atorvastatin Calcium 20 MG Tablet PO (09:05)
[2023-01-06] MEDS: NIFEdipine 30 MG Tablet PO (09:06)
[2023-01-06] MEDS: Finasteride 5 MG Tablet PO (09:08)
[2023-01-06 12:09] LABS: Bedside Glucose 229 mg/dL (74-106)
--- NOTE | 2023-01-06 12:09 | NURSING ---
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
[2023-01-06] MEDS: 0.9% Saline Lock 10 ML Syringe IV (14:32)
[2023-01-06 17:34] LABS: Bedside Glucose 272 mg/dL (74-106)
[2023-01-06] MEDS: Insulin Glargine-YFGN 100 UNIT/ML Pen 25 UNIT SC (20:42)
[2023-01-06 23:31] LABS: Bedside Glucose 243 mg/dL (74-106)
[2023-01-07 02:38] VITALS: BP 145/54; PULSE 66; RESP 16; TEMP 37.2; O2SAT 94
[2023-01-07] MEDS: Insulin Lispro 100 UNIT/ML INSULN.PEN SC ×3 (05:56→11:33)
[2023-01-07 06:15] LABS: Bedside Glucose 221 mg/dL (74-106)
[2023-01-07 06:42] LABS: Absolute Neutrophil Count 11.5 X10^3/uL (2.0-7.7); Basophil# 0.06 X10^3/uL; Basophil% 0.4 % (0-1); Eosinophil# 0.17 X10^3/uL; Eosinophils% 1.3 % (0-5); Hematocrit 30.5 % (40-54); Hemoglobin 9.9 g/dL (13.0-16.5); Lymphocyte % 5.9 % (19-41); Mean Corp Hgb Conc 32.5 g/dL (32-36); Mean Corpuscular Hgb 28.4 pg (27.0-32.0); Mean Corpuscular Volume 87.6 fL (80-94); Mean Platelet Vol. 9.9 fl (6.2-12.0); Monocyte# 0.97 X10^3/uL; Monocyte% 7.1 % (0-10); NRBC Flagged by Analyzer 0 % (0-5); Neutrophil # 11.46 X10^3/uL (2.7-7.7); Neutrophil % 84.4 % (47-70); Platelet Count 307 K/mm3 (150-450); RBC Distribution Width CV 12.9 % (11.6-14.6); RBC Distribution Width SD 41.1 fl (35.1-43.9); Red Blood Count 3.48 M/mm3 (4.6-6.2); White Blood Count 13.6 K/mm3 (4.4-11.0)
[2023-01-07 06:55] VITALS: O2SAT 93
[2023-01-07 07:08] LABS: ALB/GLOB Ratio 0.7 RATIO (0.9-2.4); AST(SGOT) 12 U/L (15-37); Alanine Aminotransfer ALT/SGPT 12 U/L (16-61); Albumin, Serum 2.4 g/dL (3.2-5.0); Alkaline Phosphatase 44 U/L (45-117); Anion Gap 6 (5-15); BUN 10 mg/dL (7-18); BUN/Creat Ratio 8.9 RATIO (10-20); Calcium,Total 8.8 mg/dL (8.5-10.1); Chloride 112 mmol/L (98-107); Creatinine, Serum 1.12 mg/dL (0.70-1.30); EST Glomerular Filtration Rate 69 mL/min (>60); Est Glom Filt Rate - Afr Amer 84 mL/min (>60); Estimated Creatinine Clearance 66.08 ml/min; Globulin 3.6 g/dL (2.2-4.2); Glucose 215 mg/dL (74-106); Potassium 3.3 mmol/L (3.5-5.1); Sodium Level 139 mmol/L (136-145)
[2023-01-07 07:10] LABS: Vancomycin, Trough Level 11.7 ug/mL (5.0-15.0)
--- NOTE | 2023-01-07 07:43 | PCM.RX.CS ---
Consult Antibiotic Management Pharmacy has been consulted to manage selected antiobiotic: Vancomycin Type of Intervention Type of Consult: Follow-up Suspected Infection Suspected Infection: Skin/Soft tissue Labs Labs: Sodium 139 mmol/L (136-145) 01/07/23 06:30 Potassium 3.3 mmol/L (3.5-5.1) L 01/07/23 06:30 Chloride 112 mmol/L (98-107) H 01/07/23 06:30 Carbon Dioxide 21.0 mmol/L (21.0-32.0) 01/07/23 06:30 Anion Gap 6 (5-15) 01/07/23 06:30 BUN 10 mg/dL (7-18) 01/07/23 06:30 Creatinine 1.12 mg/dL (0.70-1.30) 01/07/23 06:30 Est GFR (MDRD) Af Amer 84 mL/min (>60) 01/07/23 06:30 Est GFR (MDRD) Non-Af 69 mL/min (>60) 01/07/23 06:30 BUN/Creatinine Ratio 8.9 RATIO (10-20) L 01/07/23 06:30 Glucose 215 mg/dL (74-106) H 01/07/23 06:30 Vancomycin Trough 11.7 ug/mL (5.0-15.0) 01/07/23 06:30 Microbiology Microbiology: Microbiology 01/03/23 17:10 Tissue Ulcer - Plantar Gram Stain - Final 01/03/23 17:10 Tissue Ulcer - Plantar Tissue Culture - Preliminary Klebsiella oxytoca Pseudomonas aeruginosa Staphylococcus species Alpha hemolytic organism 01/03/23 17:10 Tissue Ulcer - Plantar Anaerobic Culture - Preliminary 01/04/23 13:39 Tissue - 5th Toe Gram Stain - Final 01/04/23 13:39 Tissue - 5th Toe Wound Culture - Preliminary Alpha hemolytic organism 01/04/23 13:34 Tissue - 5th Toe Gram Stain - Final 01/04/23 13:34 Tissue - 5th Toe Wound Culture - Final Streptococcus mitis 01/04/23 13:37 Tissue - 5th Metatarsal Bone Gram Stain - Final 01/04/23 13:37 Tissue - 5th Metatarsal Bone Wound Culture - Preliminary Alpha hemolytic organism 01/03/23 12:23 Blood Culture (Wb) - Anticubital Right Blood Culture - Preliminary No growth in 48 hours. 01/03/23 11:26 Blood Culture (Wb) - Anticubital Right Blood Culture - Preliminary No growth in 48 hours. 01/03/23 12:29 Urine, Clean Catch Urine Culture - Final Culture exhibits no growth. 01/03/23 12:05 Mucosa - Nasopharyngeal Respiratory Panel (PCR) - Final Goal Trough Goal Trough: 15-20 mcg/mL Pharmacy Plan for Drug Dosing Pharmacy Plan for Drug Dosing: VANCOMYCIN LEVEL RECEIVED Current Vancomycin Dose: 1000mg Q12H Number of Doses Received: 1000mg x3 Vancomycin Level: 11.7 Hours Since Last Dose: 12 Renal Function: sCr 1.12 / CrCl 71.2 Renal Function Trend: stable Vancomycin Plan/Comments: Adjust Vancomycin dosing regimen to 1250mg Q12H, to start @ 1000 01/07/23 due to only 1 IV line and Zosyn running over 4 hours Pending Level: Vancomycin trough @ 2130 01/08/23 Pharmacy Service will continue to monitor and adjust dosing as required. Follow-Up Labs Follow-Up Labs: Trough: Vancomycin Date/Time Labs Ordered Labs to be done on [date and time ordered]: 21:30 01/08/23
--- NOTE | 2023-01-07 07:55 | WOUNDNOTE ---
wound photo: right foot
--- NOTE | 2023-01-07 07:55 | WOUNDNOTE ---
wound photo: right foot
[2023-01-07] MEDS: Potassium Chloride Oral Tablet 20 MEQ 40 MEQ PO (07:57)
--- NOTE | 2023-01-07 07:58 | WOUNDNOTE ---
wound photo: right foot
--- NOTE | 2023-01-07 07:58 | NURSING ---
0730 Iv infilerated, flds stopped, spoke with Cosme the charge nurse she will assess it and remove sl, and decide what is our next step. Dr. Gomez aware also.
--- NOTE | 2023-01-07 08:10 | PN_ITS ---
Subjective Subjective Patient seen this a.m. resting in bed with feet elevated. States that therapy had him up and walking yesterday utilizing his walker to remain nonweightbearing to the right lower extremity. He states he did well with this. Denies constitutional symptoms currently. Denies further complaints. Objective Data Objective Data Vital Signs: Vital Signs Temp Pulse Resp BP Pulse Ox O2 Del Method O2 Flow Rate 99.0 F 66 16 145/54 H 94 Nasal Cannula 2 01/07/23 02:38 01/07/23 02:38 01/07/23 02:38 01/07/23 02:38 01/07/23 02:38 01/07/23 02:38 01/07/23 02:38 FiO2 2 01/06/23 14:39 Oxygen Flow Rate (L/min) 2 Oxygen Delivery Method Nasal Cannula Weight: 87.1 kg Body Mass Index (BMI) 27.5 Intake & Output: Intake and Output for Last 24 Hours 01/05/23 01/06/23 01/07/23 23:59 23:59 23:59 Intake Total 4065 / 4065 1400 / 1400 876.88 / 876.88 Output Total 900 / 1250 350 / 350 875 / 875 Balance 3165 / 2815 1050 / 1050 1.88 / 1.88 Lab / Micro Data 01/07/23 06:30 01/07/23 06:30 Labs: Laboratory Results - last 24 hr 01/06/23 11:47: POC Glucose 229 H 01/06/23 16:57: POC Glucose 272 H 01/06/23 20:37: POC Glucose 243 H 01/07/23 05:55: POC Glucose 221 H 01/07/23 06:30: WBC 13.6 H, RBC 3.48 L, Hgb 9.9 L, Hct 30.5 L, MCV 87.6, MCH 28.4, MCHC 32.5, RDW Std Deviation 41.1, RDW Coeff of Yung 12.9, Plt Count 307, MPV 9.9, Immature Gran % (Auto) 0.900, Neut % (Auto) 84.4 H, Lymph % (Auto) 5.9 L, [place] % (Auto) 7.1, Eos % (Auto) 1.3, Baso % (Auto) 0.4, Absolute Neuts (auto) 11.5 H, Absolute Lymphs (auto) 0.80 L, Nucleated RBC % 0, Sodium 139, Potassium 3.3 L, Chloride 112 H, Carbon Dioxide 21.0, Anion Gap 6, BUN 10, Creatinine 1.12, Estim Creat Clear Calc 66.08, Est GFR (MDRD) Af Amer 84, Est GFR (MDRD) Non-Af 69, BUN/Creatinine Ratio 8.9 L, Glucose 215 H, Calcium 8.8, Total Bilirubin 0.40, AST 12 L, ALT 12 L, Alkaline Phosphatase 44 L, Total Protein 6.0 L, Albumin 2.4 L, Globulin 3.6, Albumin/Globulin Ratio 0.7 L, Vancomycin Trough 11.7 Micro: Microbiology 01/03/23 17:10 Tissue Ulcer - Plantar Gram Stain - Final 01/03/23 17:10 Tissue Ulcer - Plantar Tissue Culture - Preliminary Klebsiella oxytoca Pseudomonas aeruginosa Staphylococcus cohnii urealyti Alpha hemolytic organism 01/04/23 13:39 Tissue - 5th Toe Gram Stain - Final 01/04/23 13:39 Tissue - 5th Toe Wound Culture - Preliminary Alpha hemolytic organism 01/04/23 13:34 Tissue - 5th Toe Gram Stain - Final 01/04/23 13:34 Tissue - 5th Toe Wound Culture - Final Streptococcus mitis 01/04/23 13:37 Tissue - 5th Metatarsal Bone Gram Stain - Final 01/04/23 13:37 Tissue - 5th Metatarsal Bone Wound Culture - Preliminary Alpha hemolytic organism 01/03/23 12:23 Blood Culture (Wb) - Anticubital Right Blood Culture - Preliminary No growth in 48 hours. 01/03/23 11:26 Blood Culture (Wb) - Anticubital Right Blood Culture - Preliminary No growth in 48 hours. 01/03/23 12:29 Urine, Clean Catch Urine Culture - Final Culture exhibits no growth. 01/03/23 12:05 Mucosa - Nasopharyngeal Respiratory Panel (PCR) - Final Radiography Diagnostic Testing: Radiology Impression Chest X-Ray 01/06/23 05:45 IMPRESSION: Normal x-ray examination of the chest. Electronically Signed: Marco Yates MD at 8:31 EDT , Physical Exam Const alert, oriented x3 and no apparent distress General Appearance: cooperative HEENT normocephalic Eyes General Eye: normal appearance of both eyes Neck General: normal visual inspection Lymph Lymphatic: no lymphadenopathy noted and no lymphedema noted Resp normal respiratory effort Cardio regular rate and regular rhythm Extremity normal capillary refill, no joint enlargement, no calf tenderness and no pedal edema Extremity Narrative: DP and PT pulses palpable with adequate capillary fill time to the right foot. Dermatological: There is erythema of the dorsal lateral foot with some darkened/purplish appearance dorsal lateral fifth metatarsal head, which is improving. Sutures intact at plantar fifth metatarsal site, and sutures intact to the dorsal aspect of the fifth metatarsal amputation stump. Erythema is improving. There is some bloody strikethrough to the internal dressings postsurgical intervention. Musculoskeletal: Muscle strength 5 of 5 age-appropriate. Decreased range of motion of the ankle joint in dorsiflexion with the knee extended without pain or crepitus. There is decreased range of motion of the first metatarsophalangeal joint. 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 DOS 01/04/2023. POD #3 Imaging: Radiographs obtained of the right foot on 01/03/2023 demonstrate possible osteomyelitis of the fifth metatarsal head with some soft tissue air secondary to ulcer. MRI was obtained 01/03/2023, findings: Fifth metatarsal head and questionable second middle phalanx STIR hyperintensity and T1 hypointensity. Multiple tarsal and metatarsal lytic lesions. Impression: 1. Plantar skin defect to the level of the fifth metatarsal head with at the fifth metatarsal head and second middle phalanx suspicious for osteomyelitis. 2. Multiple lytic tarsal and metatarsal bone lesions are new compared to 08/09/2013. I have independently reviewed radiographic imaging and MRI and do concur with likely diagnosis of osteomyelitis of the fifth metatarsal head. Right foot: There is erythema of the dorsal lateral foot with some darkened/purplish appearance dorsal lateral fifth metatarsal head, which is improving. Sutures intact at plantar fifth metatarsal site, and sutures intact to the dorsal aspect of the fifth metatarsal amputation stump. Erythema is improving. There is some bloody strikethrough to the internal dressings postsurgical intervention. Incision sites painted with Betadine and dressed with Adaptic, 4 x 4 gauze, ABD, Kerlix, 4 inch [place] wrap rolled onto the foot. Dressing to be changed daily. Wound care nurse to assist in dressing changes. WBC 16.7 upon admission, decreased to 13.8 currently; last hemoglobin A1c 01/04/2023 was 7.6%. Blood cultures currently demonstrate no growth Tissue culture from 01/03/2023 prior to surgical intervention demonstrates Klebsiella oxytoca (ESBL neg), PsA, Streptococcus mitis Surgical cultures from 01/04/2023: Fifth toe demonstrates Streptococcus mitis, gram-positive cocci; tissue of the fifth metatarsal demonstrates Streptococcus mitis; fifth metatarsal bone demonstrates Streptococcus mitis. 1 g of vancomycin powder was placed about the fifth metatarsal prior to closure. Currently on IV Vanco/Zosyn All questions were answered to patient and satisfaction He is to remain nonweightbearing to the right foot with assistance of walker. He is to continue elevating right foot at all times of rest for postoperative edema control Pain: Currently denies pain secondary to diabetic peripheral polyneuropathy, however may take pain medication as needed. Medicine team currently following for medical management, they are greatly appreciated Infectious disease following for antibiotic management Wound care nurse following for assisting dressing changes Podiatry will continue to follow Please do not hesitate to call for any questions or concerns Jr. Derek Henderson.P.M. [facility] [phone]
[2023-01-07 09:34] VITALS: BP 161/62; PULSE 78; RESP 18; TEMP 37.7; O2SAT 94
[2023-01-07] MEDS: Atorvastatin Calcium 20 MG Tablet PO (09:37)
[2023-01-07] MEDS: MYCOPHENOLATE SODIUM 360 MG TABLET.DR 720 MG PO (09:37)
[2023-01-07] MEDS: NIFEdipine 30 MG Tablet PO (09:38)
[2023-01-07] MEDS: Enoxaparin 40 MG/0.4 ML Syringe SC (09:38)
[2023-01-07] MEDS: Finasteride 5 MG Tablet PO (09:38)
[2023-01-07] MEDS: Labetalol 100 MG Tablet 150 MG PO (09:38)
[2023-01-07] MEDS: Acetaminophen 325 MG Tablet 650 MG PO (09:44)
--- NOTE | 2023-01-07 10:02 | PCM.CONS.GEN ---
Assessment & Plan Assessment/Plan (1) Right foot infection: PLAN: At this time we will treat with Zosyn, will discontinue parenteral vancomycin. Closely follow his postop course and hopefully anticipate home in the next 48 hours. Hopefully we could construct an oral antimicrobial regimen. HPI Consult Data Date of Consult: 01/07/23 HPI Narrative Reason for Consultation: Diabetic right foot infection HPI Narrative: RODRI HECK, is a 67 M who presents with increased erythema of the right foot and shaking chills; patient was taken to the operating room on January 04 and underwent debridement of the right foot and partial amputation of the infected bone. Patient overall clinically stable. Currently on vancomycin plus Zosyn. No further fevers. No cardiopulmonary distress nor any significant gastrointestinal distress. His past medical history is quite complicated including longstanding diabetes mellitus complicated by end-stage renal disease status post renal transplantation in October 2019. His posttransplant course has been stable with normalization of his renal function. Patient is on immunosuppressive therapy. Microbiology data of the right foot cultures reviewed. [facility] Medical History (Updated 01/03/23 @ 19:[address] Rojas, DPM) Alcohol use Anemia Arthritis AV fistula stenosis Back pain Blister (nonthermal), right great toe, initial encounter BPH (benign prostatic hyperplasia) Cardiology follow-up encounter Chronic anemia Diabetes Diabetic foot ulcer associated with type 2 diabetes mellitus Dialysis patient Dietary restriction End-stage renal disease on hemodialysis Essential hypertension Hallux limitus of right foot High cholesterol History of echocardiogram History of edema History of pain when walking History of rheumatic fever History of stress test Hypercholesterolemia Insulin dependent diabetes mellitus Kidney disease Leg cramps Loss of hearing Malnutrition Open fracture at right wrist or hand level Restless legs Rheumatoid arthritis Screening for intestinal cancer Symptomatic bradycardia Type 2 diabetes mellitus with diabetic polyneuropathy Ulcer of right second toe with fat layer exposed Wears glasses Home Medications finasteride 5 mg tablet (Proscar) 5 mg PO DAILY PROSTATE 07/10/17 [History Last Taken 01/03/23] rosuvastatin 10 mg tablet (Crestor) 10 mg PO DAILY CHOLESTEROL 07/10/17 [History Last Taken 01/03/23] aspirin 81 mg tablet,delayed release (Enteric Coated Aspirin) 81 mg PO DAILY 09/27/22 [History Last Taken 01/03/23] insulin glargine 100 unit/mL (3 mL) subcutaneous pen (Lantus Solostar U-100 Insulin) 25 unit subcut QPM 09/27/22 [History Last Taken 01/02/23] labetalol 100 mg tablet 150 mg PO BID 09/27/22 [History Last Taken 01/03/23] mycophenolate sodium 360 mg tablet,delayed release 720 mg PO Q12H 09/27/22 [History Last Taken 01/03/23] tacrolimus 1 mg tablet,extended release 24 hr (Envarsus XR) 1 mg PO DAILY 09/27/22 [History Last Taken 01/03/23] cholecalciferol (vitamin D3) 50 mcg (2,000 unit) tablet (Vitamin D3) 50 mcg PO DAILY 10/29/22 [History Last Taken 01/03/23] insulin aspart U-100 100 unit/mL (3 mL) subcutaneous pen (Novolog FlexPen U-100 Insulin aspart) 8 unit subcut TIDCM DM 10/29/22 [History Last Taken 01/03/23] nifedipine 30 mg tablet,extended release 24 hr 30 mg PO DAILY HEART 01/03/23 [History Last Taken 01/03/23] Allergy/AdvReac Type Severity Reaction Status Date / Time metformin Allergy Itching Verified 01/03/23 14:11 Sulfa (Sulfonamide Allergy Swelling Verified 01/03/23 14:11 Antibiotics) Family History Mother Diabetes Hypertension Heart disease Cancer lung Brother Diabetes Father Diabetes Cancer pancreas Other CAD (coronary artery disease) CVA (cerebral vascular accident) Kidney disease Surgical History (Updated 11/02/22 @ 05:56 by Jeanne León) History of angioplasty of peripheral vessel History of colonoscopy History of left heart catheterization (05/01/19) Hx of kidney transplant Presence of surgically created arteriovenous shunt for hemodialysis Social History (Updated 09/03/19 @ 11:15 by Jazlyn REICH, PA-C) Smoking Status: Former smoker ROS ROS Narrative As stated in the history of present illness others negative Physical Exam Narrative Alert responsive does not appear toxic. Lungs are clear heart exam S1-S2 abdomen soft nontender. Left foot looks benign right foot postop dressings are in place. The patient does show me pictures of his foot before surgery and postop. Lab / Micro Data 01/07/23 06:30 01/07/23 06:30 Labs: Laboratory Results - last 24 hr 01/06/23 11:47: POC Glucose 229 H 01/06/23 16:57: POC Glucose 272 H 01/06/23 20:37: POC Glucose 243 H 01/07/23 05:55: POC Glucose 221 H 01/07/23 06:30: WBC 13.6 H, RBC 3.48 L, Hgb 9.9 L, Hct 30.5 L, MCV 87.6, MCH 28.4, MCHC 32.5, RDW Std Deviation 41.1, RDW Coeff of Yung 12.9, Plt Count 307, MPV 9.9, Immature Gran % (Auto) 0.900, Neut % (Auto) 84.4 H, Lymph % (Auto) 5.9 L, [place] % (Auto) 7.1, Eos % (Auto) 1.3, Baso % (Auto) 0.4, Absolute Neuts (auto) 11.5 H, Absolute Lymphs (auto) 0.80 L, Nucleated RBC % 0, Sodium 139, Potassium 3.3 L, Chloride 112 H, Carbon Dioxide 21.0, Anion Gap 6, BUN 10, Creatinine 1.12, Estim Creat Clear Calc 66.08, Est GFR (MDRD) Af Amer 84, Est GFR (MDRD) Non-Af 69, BUN/Creatinine Ratio 8.9 L, Glucose 215 H, Calcium 8.8, Total Bilirubin 0.40, AST 12 L, ALT 12 L, Alkaline Phosphatase 44 L, Total Protein 6.0 L, Albumin 2.4 L, Globulin 3.6, Albumin/Globulin Ratio 0.7 L, Vancomycin Trough 11.7 Micro: Microbiology 01/04/23 13:34 Tissue - 5th Toe Gram Stain - Final 01/04/23 13:34 Tissue - 5th Toe Wound Culture - Final Streptococcus mitis 01/04/23 13:34 Tissue - 5th Toe Anaerobic Culture - Preliminary Checking for anaerobes, further studies to follow. 01/04/23 13:39 Tissue - 5th Toe Gram Stain - Final 01/04/23 13:39 Tissue - 5th Toe Wound Culture - Preliminary Alpha hemolytic organism 01/04/23 13:39 Tissue - 5th Toe Anaerobic Culture - Preliminary Checking for anaerobes, further studies to follow. 01/04/23 13:37 Tissue - 5th Metatarsal Bone Gram Stain - Final 01/04/23 13:37 Tissue - 5th Metatarsal Bone Wound Culture - Preliminary Alpha hemolytic organism 01/04/23 13:37 Tissue - 5th Metatarsal Bone Anaerobic Culture - Preliminary Checking for anaerobes, further studies to follow. 01/03/23 17:10 Tissue Ulcer - Plantar Gram Stain - Final 01/03/23 17:10 Tissue Ulcer - Plantar Tissue Culture - Preliminary Klebsiella oxytoca Pseudomonas aeruginosa Staphylococcus cohnii urealyti Alpha hemolytic organism Radiology Impression Chest X-Ray 01/06/23 05:45 IMPRESSION: Normal x-ray examination of the chest. Electronically Signed: Marco Yates MD at 8:31 EDT ,
--- NOTE | 2023-01-07 10:15 | PCM.PN.HOSP ---
Reason for Visit Reason for Visit: Diagnoses Type 2 diabetes mellitus with diabetic polyneuropathy (01/03/23) Type 2 diabetes mellitus with foot ulcer (01/03/23) Cellulitis of right lower limb (01/03/23) Local infection of the skin and subcutaneous tissue, unspecified (01/03/23) Non-pressure chronic ulcer of other part of unspecified foot with unspecified severity (01/03/23) Non-pressure chronic ulcer of other part of right foot with fat layer exposed (01/03/23) Osteomyelitis, unspecified (01/03/23) Subjective Subjective Patient feeling better, has some swelling in his right arm from IV so infusion halted Objective Data Objective Data Vital Signs: Vital Signs Temp Pulse Resp BP Pulse Ox O2 Del Method O2 Flow Rate 99.9 F H 78 18 161/62 H 94 Nasal Cannula 2 01/07/23 09:34 01/07/23 09:34 01/07/23 09:34 01/07/23 09:34 01/07/23 09:34 01/07/23 09:34 01/07/23 09:34 FiO2 2 01/06/23 14:39 Oxygen Flow Rate (L/min) 2 Oxygen Delivery Method Nasal Cannula Weight: 87.1 kg Body Mass Index (BMI) 27.5 Intake & Output: Intake and Output for Last 24 Hours 01/05/23 01/06/23 01/07/23 23:59 23:59 23:59 Intake Total 4065 / 4065 1400 / 1400 876.88 / 876.88 Output Total 900 / 1250 350 / 350 875 / 875 Balance 3165 / 2815 1050 / 1050 1.88 / 1.88 Lab / Micro Data 01/07/23 06:30 01/07/23 06:30 Labs: Laboratory Results - last 24 hr 01/06/23 11:47: POC Glucose 229 H 01/06/23 16:57: POC Glucose 272 H 01/06/23 20:37: POC Glucose 243 H 01/07/23 05:55: POC Glucose 221 H 01/07/23 06:30: WBC 13.6 H, RBC 3.48 L, Hgb 9.9 L, Hct 30.5 L, MCV 87.6, MCH 28.4, MCHC 32.5, RDW Std Deviation 41.1, RDW Coeff of Yung 12.9, Plt Count 307, MPV 9.9, Immature Gran % (Auto) 0.900, Neut % (Auto) 84.4 H, Lymph % (Auto) 5.9 L, [place] % (Auto) 7.1, Eos % (Auto) 1.3, Baso % (Auto) 0.4, Absolute Neuts (auto) 11.5 H, Absolute Lymphs (auto) 0.80 L, Nucleated RBC % 0, Sodium 139, Potassium 3.3 L, Chloride 112 H, Carbon Dioxide 21.0, Anion Gap 6, BUN 10, Creatinine 1.12, Estim Creat Clear Calc 66.08, Est GFR (MDRD) Af Amer 84, Est GFR (MDRD) Non-Af 69, BUN/Creatinine Ratio 8.9 L, Glucose 215 H, Calcium 8.8, Total Bilirubin 0.40, AST 12 L, ALT 12 L, Alkaline Phosphatase 44 L, Total Protein 6.0 L, Albumin 2.4 L, Globulin 3.6, Albumin/Globulin Ratio 0.7 L, Vancomycin Trough 11.7 Micro: Microbiology 01/03/23 17:10 Tissue Ulcer - Plantar Gram Stain - Final 01/03/23 17:10 Tissue Ulcer - Plantar Tissue Culture - Preliminary Klebsiella oxytoca Pseudomonas aeruginosa Staphylococcus cohnii urealyti Alpha hemolytic organism 01/04/23 13:34 Tissue - 5th Toe Gram Stain - Final 01/04/23 13:34 Tissue - 5th Toe Wound Culture - Final Streptococcus mitis 01/04/23 13:34 Tissue - 5th Toe Anaerobic Culture - Preliminary Checking for anaerobes, further studies to follow. 01/04/23 13:39 Tissue - 5th Toe Gram Stain - Final 01/04/23 13:39 Tissue - 5th Toe Wound Culture - Preliminary Alpha hemolytic organism 01/04/23 13:39 Tissue - 5th Toe Anaerobic Culture - Preliminary Checking for anaerobes, further studies to follow. 01/04/23 13:37 Tissue - 5th Metatarsal Bone Gram Stain - Final 01/04/23 13:37 Tissue - 5th Metatarsal Bone Wound Culture - Preliminary Alpha hemolytic organism 01/04/23 13:37 Tissue - 5th Metatarsal Bone Anaerobic Culture - Preliminary Checking for anaerobes, further studies to follow. 01/03/23 12:23 Blood Culture (Wb) - Anticubital Right Blood Culture - Preliminary No growth in 48 hours. 01/03/23 11:26 Blood Culture (Wb) - Anticubital Right Blood Culture - Preliminary No growth in 48 hours. 01/03/23 12:29 Urine, Clean Catch Urine Culture - Final Culture exhibits no growth. 01/03/23 12:05 Mucosa - Nasopharyngeal Respiratory Panel (PCR) - Final Radiography Diagnostic Testing: Radiology Impression Chest X-Ray 01/06/23 05:45 IMPRESSION: Normal x-ray examination of the chest. Electronically Signed: Marco Yates MD at 8:31 EDT , Physical Exam Narrative General: Alert, oriented, no apparent distress HEENT: Atraumatic, normocephalic Eyes: Anicteric, normal conjunctiva, extraocular movements grossly intact Neck: Supple Respiratory: No significant wheezes or rhonchi, normal respiratory effort Cardiovascular: Regular rate and rhythm GI: Soft, nontender, nondistended Extremities: No significant edema, right foot wrapped, right arm with mild swelling with no pitting Musculoskeletal: Moving all extremities Neuro: No overt focal neurological deficits, has tremor in both hands which he reports is chronic Skin: No rashes appreciated Psych: Cooperative Assessment & Plan Assessment/Plan (1) Cellulitis of foot, right: (2) Right foot infection: PLAN: Plan #Diabetic foot ulcer with osteomyelitis/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/status post renal transplant ? We will continue with his diabetic monitoring and make adjustments as necessary to his insulin ? Continue vancomycin and Zosyn ? We will consult podiatry ? MRI with osteomyelitis, will consult ID ? We will resume his home antirejection medications -01/05: Patient went to the OR with Dr. 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 Did spike temperature of 101.2 overnight, blood cultures pending. Preop cultures growing gram-negative howard and gram-positive organisms, Intra-Op cultures prelim with alphahemolytic organism, further speciation and cultures pending. Remains on vancomycin and Zosyn, ID following. Continue tacrolimus for history of kidney transplant. Will obtain tacrolimus level -01/06: Preliminary cultures with alphahemolytic organism intraoperatively, initial wound culture with Klebsiella and Pseudomonas, given patient is improving we will continue current antibiotics, blood cultures no growth to date. Infectious disease to reevaluate this week, continue to follow cultures -01/07: ID with DC bank, continuing Zosyn for next 24 to 48 hours and hopeful DC home with oral antibiotics this week #Hypoxia -Pt desaturated to 88% on RA last night with no hx of O2 use -Chest x-ray read pending -Patient on 3 L O2 with O2 sat of 94% -Patient has received IVF, is possible he could retain fluid -Hold further IVF, monitor clinically, chest x-ray reports no acute process -01/07: Stable #Type 2 diabetes mellitus -Glucose checks and sliding scale insulin -Also on glargine 25 nightly -01/07: Premeal added #HTN/HLD ? Blood stable ? Can resume his home blood pressure medications ? Resume his home cholesterol medications DVT: Lovenox subq Time spent in the patient's overall evaluation,decision-making process, review of diagnostic data, adjustment of management, discussion with other providers, nursing nursing and ancillary staff involved in patient's care documentation, 37 minutes Charges/Coding Visit Charges Inpatient E&M: 43647 Subs Hosp L3
--- NOTE | 2023-01-07 11:08 | CASEMGMT ---
Dicharge Planning HH list created and sent to RN EDWARD. Marisabel Saldana, Discharge Planning Asst.
[2023-01-07 11:20] VITALS: BP 141/59; PULSE 65; RESP 18; TEMP 36.8; O2SAT 98
--- NOTE | 2023-01-07 11:20 | CASEMGMT ---
Addendum entered by Chayito Paez 01/07/23 13:56: Received tc back from Mary, they can see pt on . Pt and aware that [facility] will visit on . They deny further needs. Addendum entered by Chayito Paez 01/07/23 12:22: Provided pt with FWW, pt signed consignment form. Uploaded referral to [facility] and sent to [facility] at this time. 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 Original Note: RN CM into pt room, pt at bedside and pt up in chair. Discussed dc planning. Pt and agreeable to [facility]. Patient was provided a list of [facility] providers including quality and resource use data and consistent with the patient?s preferred geographic region, medical needs, and insurance network were provided from the [facility] Guide. Pt chose [facility]. Pt aware that FWW will be obtained prior to dc as well. TC to Mary at [facility], referral made via vm. Will await acceptance.
[2023-01-07 11:21] VITALS: PULSE 70
--- NOTE | 2023-01-07 12:50 | DCINST_ITS ---
Discharge Instructions Diet Discharge Diet: No restrictions Activity Discharge Activity: Use Walker and - (Non weightbearing status for right lower extremity) Follow Up Care Test Results: Test results from this visit will be discussed in further detail at your follow- up appointment, if applicable. Discharge Plan Admission Admit Date/Time: 01/03/23 13:26 Primary Reason for Your Visit: Right foot infection Attending Provider: Lindsay Meza Primary Care Provider: Alo Goddard Consulting Providers: Lane Rojas; Benjamín Jordan; Ryan Rahman Instructions Patient Instructions: Osteomyelitis Dc Additional Instructions / Restrictions: DISCHARGE INSTRUCTIONS PLEASE READ *Please take this with you to your next doctors appointment* -You will be discharged on 10 days of Augmentin 875 mg twice daily and ciprofloxacin 500 mg twice daily, he will take 1 dose of each tonight -Please follow-up with podiatry, Dr. Rojas, upon discharge. Please call their office to schedule hospital follow-up appointment upon discharge. -Please continue your other home medications -Please call your primary care provider's office upon discharge to schedule a hospital follow up within 1 week. -For any concerning signs or symptoms please call 911 or proceed to the nearest emergency department Discharge Orders/Prescriptions Prescriptions: New ciprofloxacin HCl 500 mg tablet 500 mg PO Q12H 10 Days Qty: 20 0RF Rx Instructions: First dose tonight amoxicillin-pot clavulanate 875-125 mg tablet 1 tab PO BID 10 Days Qty: 20 0RF Rx Instructions: First dose tonight Continued rosuvastatin [Crestor] 10 mg tablet 10 mg PO DAILY finasteride [Proscar] 5 mg tablet 5 mg PO DAILY insulin glargine [Lantus Solostar U-100 Insulin] 100 unit/mL (3 mL) insulin pen 25 unit SC QPM labetalol 100 mg tablet 150 mg PO BID aspirin [Enteric Coated Aspirin] 81 mg tablet,delayed release (DR/EC) 81 mg PO DAILY mycophenolate sodium 360 mg tablet,delayed release (DR/EC) 720 mg PO Q12H Envarsus XR 1 mg tablet extended release 24 hr 1 mg PO DAILY Rx Instructions: must be taken on empty stomach insulin aspart U-100 [Novolog FlexPen U-100 Insulin] 100 unit/mL (3 mL) Insulin Pen 8 unit SUBCUT TIDCM Patient Comments: PT IS NOW TAKING 8 UNITS BEFORE MEALS IF BS >150 HAS A SLIDING SCALE FAMILY TO BRING IN SLIDING SCALE. cholecalciferol (vitamin D3) [Vitamin D3] 50 mcg (2,000 unit) Tablet 50 mcg PO DAILY nifedipine 30 mg tablet extended release 24hr 30 mg PO DAILY Referrals / Follow Up: Alo Goddard MD [Primary Care Provider] - Within [address] Rojas DPM [Med Staff - Active Staff] - Within 1 Month ( -Please follow-up with podiatry upon discharge. Please call their office to schedule hospital follow-up appointment upon discharge.) Disposition Disposition (needs filled in before D/C Order can be placed): Home Health Service
--- NOTE | 2023-01-07 12:55 | DS.PCM_ITS ---
Providers Date of Admission: 01/03/23 Date of Discharge: 01/07/23 Primary Care Physician: Dr. 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 Comment: Reason for Consult:: Right foot wound with osteomyelitis Reason For Visit: DM FOOT ULCER Diagnosis Discharge Diagnosis (1) Cellulitis of foot, right: Status: Acute Code(s): L03.115 - Cellulitis of right lower limb (2) Right foot infection: Status: Acute Code(s): L08.9 - Local infection of the skin and subcutaneous tissue, unspecified Plan #Diabetic foot ulcer with osteomyelitis/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/status post renal transplant #Type 2 diabetes mellitus #HTN/HLD Medications at Discharge Home Medications finasteride 5 mg tablet (Proscar) 5 mg PO DAILY PROSTATE 07/10/17 rosuvastatin 10 mg tablet (Crestor) 10 mg PO DAILY CHOLESTEROL 07/10/17 aspirin 81 mg tablet,delayed release (Enteric Coated Aspirin) 81 mg PO DAILY 09/27/22 insulin glargine 100 unit/mL (3 mL) subcutaneous pen (Lantus Solostar U-100 Insulin) 25 unit subcut QPM 09/27/22 labetalol 100 mg tablet 150 mg PO BID 09/27/22 mycophenolate sodium 360 mg tablet,delayed release 720 mg PO Q12H 09/27/22 tacrolimus 1 mg tablet,extended release 24 hr (Envarsus XR) 1 mg PO DAILY 09/27/22 cholecalciferol (vitamin D3) 50 mcg (2,000 unit) tablet (Vitamin D3) 50 mcg PO DAILY 10/29/22 insulin aspart U-100 100 unit/mL (3 mL) subcutaneous pen (Novolog FlexPen U-100 Insulin aspart) 8 unit subcut TIDCM DM 10/29/22 nifedipine 30 mg tablet,extended release 24 hr 30 mg PO DAILY HEART 01/03/23 amoxicillin 875 mg-potassium clavulanate 125 mg tablet 1 tab PO BID 10 days #20 tabs 01/07/23 ciprofloxacin HCl 500 mg tablet 500 mg PO Q12H 10 days #20 tabs 01/07/23 Hospital Course Operations - ( Osteomyelitis fifth digit and fifth metatarsal head right foot and 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 When he took his shoes and socks off patient will redness to the top aspect of foot and x-ray in the ED showed possible osteomyelitis of the fifth metatarsal head. He was on Vanco and Zosyn and podiatry consulted, MRI confirmed osteomyelitis and ID consulted. Patient went to the OR with Dr. 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 Culture taken outside prior to Intra-Op cultures polymicrobial and Intra-Op cultures with strep mitis, patient did improve over the course of his hospitalization. Infectious disease evaluated and initially was going to continue Zosyn for another 1 to 2 days before switching to oral antibiotics however patient lost access and no peripheral IVs were able to be started and after discussing with patient and with ID did not feel midline was necessary for another 24 hours of IV Zosyn and patient was discharged on Augmentin and ciprofloxacin oral twice daily. Hospitalization was complicated by 1 night where patient desaturated to 88% on room air and has no home O2 needs or use, chest x-ray did not reveal any underlying etiology. He had IVF stopped, suspect multifactorial due to receiving a lot of fluids as well as possible component of atelectasis and as this happened at night cannot rule out component of hypoventilation at night. Patient also had infiltration of IV on right arm and had some slight swelling without erythema or significant tenderness. On day of discharge patient feeling much better, discharge instructions as follows: -You will be discharged on 10 days of Augmentin 875 mg twice daily and ciprofloxacin 500 mg twice daily, he will take 1 dose of each tonight -Please follow-up with podiatry, Dr. Rojas, upon discharge. Please call their office to schedule hospital follow-up appointment upon discharge. -Please continue your other home medications -Please call your primary care provider's office upon discharge to schedule a hospital follow up within 1 week. -For any concerning signs or symptoms please call 911 or proceed to the nearest emergency department Physical Exam Narrative General: Alert, oriented, no apparent distress HEENT: Atraumatic, normocephalic Eyes: Anicteric, normal conjunctiva, extraocular movements grossly intact Neck: Supple Respiratory: No significant wheezes or rhonchi, normal respiratory effort Cardiovascular: Regular rate and rhythm GI: Soft, nontender, nondistended Extremities: No significant edema, right foot wrapped, right arm with mild swelling with no pitting Musculoskeletal: Moving all extremities Neuro: No overt focal neurological deficits, has tremor in both hands which he reports is chronic Skin: No rashes appreciated Psych: Cooperative Weight / BMI Weight Weight: 87.1 kg Body Mass Index (BMI) 27.5 ABG / Lab / Microbiology Data 01/07/23 06:30 01/07/23 06:30 Laboratory: Laboratory Results - last 24 hr 01/06/23 16:57: POC Glucose 272 H 01/06/23 20:37: POC Glucose 243 H 01/07/23 05:55: POC Glucose 221 H 01/07/23 06:30: WBC 13.6 H, RBC 3.48 L, Hgb 9.9 L, Hct 30.5 L, MCV 87.6, MCH 28.4, MCHC 32.5, RDW Std Deviation 41.1, RDW Coeff of Yung 12.9, Plt Count 307, MPV 9.9, Immature Gran % (Auto) 0.900, Neut % (Auto) 84.4 H, Lymph % (Auto) 5.9 L, [place] % (Auto) 7.1, Eos % (Auto) 1.3, Baso % (Auto) 0.4, Absolute Neuts (auto) 11.5 H, Absolute Lymphs (auto) 0.80 L, Nucleated RBC % 0, Sodium 139, Potassium 3.3 L, Chloride 112 H, Carbon Dioxide 21.0, Anion Gap 6, BUN 10, Creatinine 1.12, Estim Creat Clear Calc 66.08, Est GFR (MDRD) Af Amer 84, Est GFR (MDRD) Non-Af 69, BUN/Creatinine Ratio 8.9 L, Glucose 215 H, Calcium 8.8, Total Bilirubin 0.40, AST 12 L, ALT 12 L, Alkaline Phosphatase 44 L, Total Protein 6.0 L, Albumin 2.4 L, Globulin 3.6, Albumin/Globulin Ratio 0.7 L, Vancomycin Trough 11.7 Microbiology: Microbiology 01/03/23 17:10 Tissue Ulcer - Plantar Gram Stain - Final 01/03/23 17:10 Tissue Ulcer - Plantar Tissue Culture - Preliminary Klebsiella oxytoca Pseudomonas aeruginosa Staphylococcus cohnii urealyti Alpha hemolytic organism 01/03/23 17:10 Tissue Ulcer - Plantar Anaerobic Culture - Preliminary Anaerobic cocci 01/04/23 13:34 Tissue - 5th Toe Gram Stain - Final 01/04/23 13:34 Tissue - 5th Toe Wound Culture - Final Streptococcus mitis 01/04/23 13:34 Tissue - 5th Toe Anaerobic Culture - Preliminary Checking for anaerobes, further studies to follow. 01/04/23 13:39 Tissue - 5th Toe Gram Stain - Final 01/04/23 13:39 Tissue - 5th Toe Wound Culture - Preliminary Alpha hemolytic organism 01/04/23 13:39 Tissue - 5th Toe Anaerobic Culture - Preliminary Checking for anaerobes, further studies to follow. 01/04/23 13:37 Tissue - 5th Metatarsal Bone Gram Stain - Final 01/04/23 13:37 Tissue - 5th Metatarsal Bone Wound Culture - Preliminary Alpha hemolytic organism 01/04/23 13:37 Tissue - 5th Metatarsal Bone Anaerobic Culture - Preliminary Checking for anaerobes, further studies to follow. 01/03/23 12:23 Blood Culture (Wb) - Anticubital Right Blood Culture - Preliminary No growth in 48 hours. 01/03/23 11:26 Blood Culture (Wb) - Anticubital Right Blood Culture - Preliminary No growth in 48 hours. 01/03/23 12:29 Urine, Clean Catch Urine Culture - Final Culture exhibits no growth. 01/03/23 12:05 Mucosa - Nasopharyngeal Respiratory Panel (PCR) - Final D/C Instructions Discharge Diet: No restrictions Meaningful Use Info Meaningful Use Diagnoses (Choose all that apply): None applicable Discharge Plan Admission Admit Date/Time: 01/03/23 13:26 Primary Reason for Your Visit: Right foot infection Attending Provider: Lindsay Meza Primary Care Provider: Alo Goddard Consulting Providers: Lane Rojas; Benjamín Jordan; Ryan Rahman Instructions Patient Instructions: Osteomyelitis Dc Additional Instructions / Restrictions: DISCHARGE INSTRUCTIONS PLEASE READ *Please take this with you to your next doctors appointment* -You will be discharged on 10 days of Augmentin 875 mg twice daily and ciproflox acin 500 mg twice daily, he will take 1 dose of each tonight -Please follow-up with podiatry, Dr. Rojas, upon discharge. Please call their office to schedule hospital follow-up appointment upon discharge. -Please continue your other home medications -Please call your primary care provider's office upon discharge to schedule a hospital follow up within 1 week. -For any concerning signs or symptoms please call 911 or proceed to the nearest emergency department Discharge Orders/Prescriptions Prescriptions: New ciprofloxacin HCl 500 mg tablet 500 mg PO Q12H 10 Days Qty: 20 0RF Rx Instructions: First dose tonight amoxicillin-pot clavulanate 875-125 mg tablet 1 tab PO BID 10 Days Qty: 20 0RF Rx Instructions: First dose tonight Continued rosuvastatin [Crestor] 10 mg tablet 10 mg PO DAILY finasteride [Proscar] 5 mg tablet 5 mg PO DAILY insulin glargine [Lantus Solostar U-100 Insulin] 100 unit/mL (3 mL) insulin pen 25 unit SC QPM labetalol 100 mg tablet 150 mg PO BID aspirin [Enteric Coated Aspirin] 81 mg tablet,delayed release (DR/EC) 81 mg PO DAILY mycophenolate sodium 360 mg tablet,delayed release (DR/EC) 720 mg PO Q12H Envarsus XR 1 mg tablet extended release 24 hr 1 mg PO DAILY Rx Instructions: must be taken on empty stomach insulin aspart U-100 [Novolog FlexPen U-100 Insulin] 100 unit/mL (3 mL) Insulin Pen 8 unit SUBCUT TIDCM Patient Comments: PT IS NOW TAKING 8 UNITS BEFORE MEALS IF BS >150 HAS A SLIDING SCALE FAMILY TO BRING IN SLIDING SCALE. cholecalciferol (vitamin D3) [Vitamin D3] 50 mcg (2,000 unit) Tablet 50 mcg PO DAILY nifedipine 30 mg tablet extended release 24hr 30 mg PO DAILY Referrals / Follow Up: Alo Goddard MD [Primary Care Provider] - 01/15/23 10:[address] Rojas DPM [Med Staff - Active Staff] - 01/10/23 3:45 pm ( -Please follow-up with podiatry upon discharge. Please call their office to schedule hospital follow-up appointment upon discharge.) Disposition Disposition (needs filled in before D/C Order can be placed): Home Health Service Charges/Coding Visit Charges Inpatient E&M: 19917 Disch Hosp >30min
[2023-01-07 13:41] VITALS: BP 138/61; PULSE 66; RESP 18; TEMP 36.8; O2SAT 90
[2023-01-07 15:26] LABS: Bedside Glucose 230 mg/dL (74-106)
[2023-01-09 17:08] LABS: Tacrolimus (FK506) 5.1 ng/mL (2.0-20.0)
== END 2023-01-07 14:07 | disposition home health service (06) | DRG 570 ==
LOC: ED 13:13 → MS3 13:27
PROVIDERS: Anesthesiology; Nurse Practitioner; Student in an Organized Health Care Education/Training Program; Admitting Provider Family Medicine; Emergency Provider Emergency Medicine; PCP Family Medicine; Visit Provider Internal Medicine
PROC: 0Y6M0ZF Detachment at Right Foot, Partial 5th Ray, Open Approach (ICD-10-PCS; principal; 2023-01-04 07:45)
DX: L03.115 Cellulitis of right lower limb (principal); N18.6 End stage renal disease; M86.171 Other acute osteomyelitis, right ankle and foot; I12.0 Hypertensive chronic kidney disease with stage 5 chronic kidney disease or end stage renal disease; Z94.0 Kidney transplant status; E11.22 Type 2 diabetes mellitus with diabetic chronic kidney disease; L97.512 Non-pressure chronic ulcer of other part of right foot with fat layer exposed; B95.4 Other streptococcus as the cause of diseases classified elsewhere; E11.621 Type 2 diabetes mellitus with foot ulcer; E11.69 Type 2 diabetes mellitus with other specified complication; E11.42 Type 2 diabetes mellitus with diabetic polyneuropathy; Z79.4 Long term (current) use of insulin; Z99.2 Dependence on renal dialysis; E78.00 Pure hypercholesterolemia, unspecified; B96.5 Pseudomonas (aeruginosa) (mallei) (pseudomallei) as the cause of diseases classified elsewhere; B96.1 Klebsiella pneumoniae [K. pneumoniae] as the cause of diseases classified elsewhere; R09.02 Hypoxemia; Z79.69 Long term (current) use of other immunomodulators and immunosuppressants; Z79.82 Long term (current) use of aspirin; Z87.891 Personal history of nicotine dependence
CPT/HCPCS: 36415; 71045; 71046; 73620; 73630; 73718; 76000; 80048; 80053; 80197; 80202; 81001; 82962; 83036; 83605; 83735; 84484; 85025; 85610; 85730; 87015; 87040; 87070; 87075; 87077; 87086; 87102; 87116; 87176; 87184; 87186; 87205; 87206; 87633; 88304; 88305; 88311; 93005; 94668; 97110; 97116; 97162; 97166; 97530; 97535; 99285; J7030; J7040; J7050; A4216; J2405

== ENCOUNTER 2023-02-06 05:54 | Outpatient (RCR) | payer MEDICARE, SELFPAY ==
[2022-12-06 08:17] VITALS: BMI 30.8
[2023-02-06 07:13] LABS: Absolute Lymphocyte Count 1.77 X10^3/uL (0.83-4.51); Absolute Neutrophil Count 4.9 X10^3/uL (2.0-7.7); Basophil# 0.07 X10^3/uL; Basophil% 0.9 % (0-1); Eosinophil# 0.25 X10^3/uL; Eosinophils% 3.2 % (0-5); Hematocrit 40.7 % (40-54); Hemoglobin 12.8 g/dL (13.0-16.5); Lymphocyte # 1.77 X10^3/ul (0.83-4.51); Lymphocyte % 22.9 % (19-41); Mean Corp Hgb Conc 31.4 g/dL (32-36); Mean Corpuscular Hgb 27.8 pg (27.0-32.0); Mean Corpuscular Volume 88.3 fL (80-94); Mean Platelet Vol. 10.2 fl (6.2-12.0); Monocyte# 0.67 X10^3/uL; Monocyte% 8.7 % (0-10); NRBC Flagged by Analyzer 0 % (0-5); Neutrophil # 4.93 X10^3/uL (2.7-7.7); Neutrophil % 63.9 % (47-70); Platelet Count 235 K/mm3 (150-450); RBC Distribution Width CV 13.1 % (11.6-14.6); RBC Distribution Width SD 42.3 fl (35.1-43.9); Red Blood Count 4.61 M/mm3 (4.6-6.2); White Blood Count 7.7 K/mm3 (4.4-11.0)
[2023-02-06 07:54] LABS: Anion Gap 6 (5-15); BUN 16 mg/dL (7-18); BUN/Creat Ratio 12.4 RATIO (10-20); Calcium,Total 9.6 mg/dL (8.5-10.1); Chloride 111 mmol/L (98-107); Creatinine, Serum 1.29 mg/dL (0.70-1.30); EST Glomerular Filtration Rate 59 mL/min (>60); Est Glom Filt Rate - Afr Amer 71 mL/min (>60); Glucose 114 mg/dL (74-106); Magnesium 2.2 mg/dL (1.6-2.6); Phosphorus 3.4 mg/dL (2.5-4.9); Potassium 4.4 mmol/L (3.5-5.1); Sodium Level 141 mmol/L (136-145)
[2023-02-09 13:07] LABS: Tacrolimus (FK506) 6.4 ng/mL (2.0-20.0)
== END 2023-02-06 18:00 | disposition home or self-care (01) ==
LOC: LAB 05:54
PROVIDERS: PCP Family Medicine; Referring Provider Internal Medicine Nephrology; Visit Provider Internal Medicine Nephrology
DX: D84.9 Immunodeficiency, unspecified (principal); R79.9 Abnormal finding of blood chemistry, unspecified; Z79.899 Other long term (current) drug therapy; Z94.0 Kidney transplant status; Z48.298 Encounter for aftercare following other organ transplant; Z79.4 Long term (current) use of insulin; D50.9 Iron deficiency anemia, unspecified
CPT/HCPCS: 36415; 80048; 80197; 83735; 84100; 85025

== ENCOUNTER 2023-05-16 05:48 | Outpatient (RCR) | payer MEDICARE, SELFPAY ==
[2023-03-07 23:17] VITALS: BMI 30.8
[2023-05-16 06:59] LABS: Absolute Lymphocyte Count 1.27 X10^3/uL (0.83-4.51); Absolute Neutrophil Count 4.8 X10^3/uL (2.0-7.7); Basophil# 0.05 X10^3/uL; Basophil% 0.7 % (0-1); Eosinophil# 0.15 X10^3/uL; Eosinophils% 2.2 % (0-5); Hematocrit 39.4 % (40-54); Hemoglobin 12.4 g/dL (13.0-16.5); Lymphocyte # 1.27 X10^3/ul (0.83-4.51); Lymphocyte % 18.3 % (19-41); Mean Corp Hgb Conc 31.5 g/dL (32-36); Mean Corpuscular Hgb 27.3 pg (27.0-32.0); Mean Corpuscular Volume 86.8 fL (80-94); Mean Platelet Vol. 10.3 fl (6.2-12.0); Monocyte% 8.6 % (0-10); NRBC Flagged by Analyzer 0 % (0-5); Neutrophil # 4.84 X10^3/uL (2.7-7.7); Neutrophil % 69.8 % (47-70); Platelet Count 256 K/mm3 (150-450); RBC Distribution Width CV 13.3 % (11.6-14.6); Red Blood Count 4.54 M/mm3 (4.6-6.2); White Blood Count 6.9 K/mm3 (4.4-11.0)
[2023-05-16 07:34] LABS: Microalbumin:Creatinine Ratio 94.3 mg/g CRE (<30 mg/g CRE); Protein, Urine (Random) 28.6 mg/dL (<11.9); Protein:Creat Ratio 234 mg/g CRE (0-200)
[2023-05-16 07:37] LABS: ALB/GLOB Ratio 1.3 RATIO (0.9-2.4); AST(SGOT) 17 U/L (15-37); Alanine Aminotransfer ALT/SGPT 16 U/L (16-61); Albumin, Serum 3.9 g/dL (3.2-5.0); Alkaline Phosphatase 51 U/L (45-117); Anion Gap 4 (5-15); BUN 19 mg/dL (7-18); BUN/Creat Ratio 16.8 RATIO (10-20); Calcium,Total 8.9 mg/dL (8.5-10.1); Chloride 112 mmol/L (98-107); Cholesterol 159 mg/dL (200); Creatinine, Serum 1.13 mg/dL (0.70-1.30); EST Glomerular Filtration Rate 69 mL/min (>60); Est Glom Filt Rate - Afr Amer 83 mL/min (>60); Ferritin 575 ng/mL (26-388); Glucose 116 mg/dL (74-106); High Density Lipoprotein 42 mg/dL; Iron 77 ug/dL (65-175); Iron Binding Capacity,Total 252 ug/dL (250-450); Magnesium 2.1 mg/dL (1.6-2.6); PERCENT IRON SATURATION 30.6 % (15.0-55.0); Phosphorus 3.3 mg/dL (2.5-4.9); Potassium 3.9 mmol/L (3.5-5.1); Protein, Total 6.9 g/dL (6.4-8.2); Sodium Level 141 mmol/L (136-145); Triglycerides 146 mg/dL; Very Low Density Lipoprotein 29 mg/dL (5-40)
[2023-05-16 08:15] LABS: Hemoglobin A1c 6.2 % (3.8-5.6)
[2023-05-19 15:07] LABS: Tacrolimus (FK506) 5.5 ng/mL (2.0-20.0); Transferrin 192 mg/dL (177-329)
== END 2023-06-06 18:00 | disposition home or self-care (01) ==
LOC: LAB 05:48
PROVIDERS: PCP Family Medicine; Referring Provider Internal Medicine Nephrology; Visit Provider Internal Medicine Nephrology
DX: D84.9 Immunodeficiency, unspecified (principal); R79.9 Abnormal finding of blood chemistry, unspecified; Z79.899 Other long term (current) drug therapy; Z94.0 Kidney transplant status; Z48.298 Encounter for aftercare following other organ transplant; D50.9 Iron deficiency anemia, unspecified
CPT/HCPCS: 36415; 80053; 80061; 80197; 82043; 82570; 82728; 83036; 83540; 83550; 83735; 84100; 84156; 84466; 85025

== ENCOUNTER 2023-08-14 05:56 | Outpatient (RCR) | payer MEDICARE, SELFPAY ==
[2023-06-07 03:55] VITALS: BMI 30.8
[2023-08-14 07:21] LABS: Absolute Lymphocyte Count 1.15 X10^3/uL (0.83-4.51); Absolute Neutrophil Count 4.5 X10^3/uL (2.0-7.7); Basophil# 0.06 X10^3/uL; Basophil% 0.9 % (0-1); Eosinophil# 0.19 X10^3/uL; Eosinophils% 2.9 % (0-5); Hematocrit 39.4 % (40-54); Hemoglobin 12.4 g/dL (13.0-16.5); Lymphocyte # 1.15 X10^3/ul (0.83-4.51); Lymphocyte % 17.3 % (19-41); Mean Corp Hgb Conc 31.5 g/dL (32-36); Mean Corpuscular Hgb 27.3 pg (27.0-32.0); Mean Corpuscular Volume 86.6 fL (80-94); Mean Platelet Vol. 10.6 fl (6.2-12.0); Monocyte# 0.74 X10^3/uL; Monocyte% 11.1 % (0-10); NRBC Flagged by Analyzer 0 % (0-5); Neutrophil # 4.48 X10^3/uL (2.7-7.7); Neutrophil % 67.5 % (47-70); Platelet Count 244 K/mm3 (150-450); RBC Distribution Width CV 13.2 % (11.6-14.6); RBC Distribution Width SD 41.3 fl (35.1-43.9); Red Blood Count 4.55 M/mm3 (4.6-6.2); White Blood Count 6.6 K/mm3 (4.4-11.0)
[2023-08-14 07:52] LABS: Anion Gap 4 (5-15); BUN 18 mg/dL (7-18); BUN/Creat Ratio 15.8 RATIO (10-20); Calcium,Total 9.1 mg/dL (8.5-10.1); Chloride 114 mmol/L (98-107); Creatinine, Serum 1.14 mg/dL (0.70-1.30); EST Glomerular Filtration Rate 68 mL/min (>60); Est Glom Filt Rate - Afr Amer 82 mL/min (>60); Glucose 137 mg/dL (74-106); Phosphorus 3.6 mg/dL (2.5-4.9); Potassium 3.9 mmol/L (3.5-5.1); Sodium Level 141 mmol/L (136-145)
[2023-08-17 11:09] LABS: Tacrolimus (FK506) 4.4 ng/mL (2.0-20.0)
== END 2023-09-05 18:00 | disposition home or self-care (01) ==
LOC: LAB 05:56
PROVIDERS: PCP Family Medicine; Referring Provider Internal Medicine Nephrology; Visit Provider Internal Medicine Nephrology
DX: Z94.0 Kidney transplant status (principal); Z79.899 Other long term (current) drug therapy; Z48.298 Encounter for aftercare following other organ transplant; R79.9 Abnormal finding of blood chemistry, unspecified; D84.9 Immunodeficiency, unspecified; D50.9 Iron deficiency anemia, unspecified
CPT/HCPCS: 36415; 80048; 80197; 83735; 84100; 85025

== ENCOUNTER → 2023-09-13 | Outpatient (CLI) | payer MEDICARE, SELFPAY ==
--- OUTSIDE RECORDS SUMMARY | 2023-09-13 06:03 | XMS RPT_ITS | CCD ---
Author Name Unknown Address [address] [place] [address] Organization [facility] Care Team Providers Care Production Supv Name Role Phone Unavailable Primary Care Provider UnavailClair Aparicio Unavailable Unavailable Roman Espino Unavailable Unavailable Abbie Rodriguez I Unavailable Unavailable Lew Roberson Unavailable Unavailable Chasity Kelly Unavailable Unavailable Aarno Wesley Unavailable Unavailable Flor Back Unavailable Unavailable Jose Smith Unavailable Unavailable Alo Avina MD Primary Care Provider [phone] Abbie Rodriguez DO Unavailable Alo Avina MD Primary Care Provider [phone] Alo Avina MD Primary Care Provider Alo Avina MD Primary Care Provider [phone] Abbie Rodriguez DO Unavailable Alo Avina MD Primary Care Provider ALO AVINA Primary Care Unavailable SHARDA LEMONS Referring Unavailable ALO AVINA Primary Care Unavailable SELF, SELF Referring Unavailable CINDY BOLES Attending Unavailable ALO AVINA Primary Care Unavailable TOMMY HERNANDEZ Attending Unavailable SELF, SELF Referring Unavailable Alo Avina MD Primary Care Provider [phone] ALO AVINA Primary Care Unavailable ALO AVINA Referring Unavailable CLARIBEL COPE Attending Unavailable ALO AVINA Primary Care Unavailable ALO AVINA Primary Care Unavailable ALO AVINA Attending Unavailable ALO AVINA Referring Unavailable ALO AVINA Primary Care Unavailable CLARIBEL COPE Attending Unavailable ALO AVINA Attending Unavailable ALO AVINA Primary Care Unavailable ALO AVINA Primary Care Unavailable CLARIBEL COPE Attending Unavailable Allergies Allergy Classification Reported Allergen(s) Allergy Type Date of Onset Reaction(s) Facility (20 sources) metFORMIN; Translations: [METFORMIN] Drug Allergy 01-02-20 08 Itching, Rash [facility] (6 sources) Penicillins Propensity to adverse reactions to drug 10-04-19 16 [facility] (4 sources) Sulfamethoxazole / Trimethoprim Drug Allergy 10-04-19 16 [facility] (6 sources) Sulfonamides (Antibiotic) Propensity to adverse reactions to drug 10-04-19 16 Itching [facility] (20 sources) amLODIPine; Translations: [AMLODIPINE BESYLATE] Drug Allergy 08-31-19 15 Swelling [facility] Work Phone: (20 sources) atorvastatin; Translations: [ATORVASTATIN CALCIUM] Drug Allergy 10-10-19 12 Other: See Comments [facility] Work Phone: (20 sources) Sulfamethoxazole; Translations: [SULFAMETHOXAZOLE] Drug Allergy 02-14-20 13 Hives [facility] Work Phone: Medications Current Medications Medication Drug Class(es) Dates Sig (Normalized) Sig (Original) docusate sodium 100 mg oral capsule (15 sources) Start: 10-25-2015 take 1 capsule by mouth twice daily docusate 100 MG Cap take 1 capsule by mouth 2 times daily. 60 capsule 0 10/25/2015 Active Completed/Discontinued Medications Medication Drug Class(es) Dates Sig (Normalized) Sig (Original) aspirin 81 mg delayed release oral tablet (20 sources) Platelet Aggregation Inhibitor, Nonsteroidal Anti-inflammatory Drug take 1 tablet by mouth once daily aspirin, enteric coated (ASPIRIN, ENTERIC COATED) 81 mg EC tablet Take 81 mg by mouth once daily. 0 Active Problems Active Problems Problem Classification Problem Date Documented Date Episodic/Chronic Chronic kidney disease (20 sources) End-stage renal disease; Translations: [Anemia] Onset: 07-12-2017 Resolved: 11-20-2019 05-17-2021 Chronic Deficiency and other anemia (5 sources) Iron deficiency anemia; Translations: [Anemia, iron deficiency] Episodic Diabetes mellitus with complications (20 sources) Disorder of nervous system due to type 2 diabetes mellitus; Translations: [Type 2 diabetes mellitus with other diabetic neurological complication] Onset: 02-13-2013 05-17-2021 Chronic Diabetes mellitus without complication (5 sources) Diabetes mellitus; Translations: [Diabetes mellitus] Chronic Disorders of lipid metabolism (20 sources) Hyperlipidemia; Translations: [Mixed hyperlipidemia] 05-17-2021 Chronic Essential hypertension (20 sources) Benign essential hypertension; Translations: [Essential (primary) hypertension] 05-17-2021 Chronic Hyperplasia of prostate (20 sources) Nocturia due to benign prostatic hypertrophy; Translations: [Benign prostatic hyperplasia with lower urinary tract symptoms] Onset: 03-06-2012 Chronic Hypertension with complications and secondary hypertension (2 sources) Renal hypertension; Translations: [Hypertension secondary to other renal disorders] Onset: 11-20-2019 11-20-2019 Chronic Immunity disorders (4 sources) Patient immunocompromised; Translations: [Immunodeficiency, unspecified] Onset: 11-03-2019 11-03-2019 Chronic Immunizations and screening for infectious disease (1 source) Encounter for immunization; Translations: [Encounter for immunization] Onset: 06-18-2023 Episodic Nutritional deficiencies (20 sources) Vitamin D deficiency; Translations: [Vitamin D deficiency, unspecified] Onset: 07-31-2017 05-17-2021 Chronic Osteoarthritis (20 sources) Osteoarthritis of left knee joint; Translations: [Unilateral primary osteoarthritis, left knee] Onset: 02-16-2011 05-17-2021 Chronic Other aftercare (2 sources) Encounter for aftercare following other organ transplant; Translations: [Encounter for aftercare following other organ transplant] Onset: 11-17-2021 Chronic Other aftercare (2 sources) Surgical follow-up; Translations: [Encounter for change or removal of surgical wound dressing] 01-24-2023 Episodic Other ear and sense organ disorders (20 sources) Hearing loss; Translations: [Unspecified hearing loss, unspecified ear] Onset: 09-10-2012 05-17-2021 Chronic Other hereditary and degenerative nervous system conditions (20 sources) Essential tremor; Translations: [Essential tremor] Onset: 09-20-2016 05-17-2021 Chronic Other hereditary and degenerative nervous system conditions (20 sources) Restless legs; Translations: [Restless legs syndrome] Onset: 12-05-2018 05-17-2021 Chronic Other male genital disorders (20 sources) Male erectile dysfunction, unspecified; Translations: [Impotence of organic origin] Onset: 02-24-2010 05-17-2021 Chronic Other male genital disorders (5 sources) H/O: male genital disorder; Translations: [History of BPH] Episodic Other nutritional; endocrine; and metabolic disorders (2 sources) Obese class I; Translations: [Obesity, unspecified] Onset: 10-21-2019 10-22-2019 Chronic Past or Other Problems Problem Classification Problem Date Documented Date Episodic/Chronic Administrative/social admission (20 sources) Advance directive discussed with patient; Translations: [Other specified counseling] Onset: 11-16-2021 Episodic Fracture of upper limb (6 sources) Closed fracture of shaft of ulna; Translations: [Unspecified fracture of shaft of left ulna, subsequent encounter for closed fracture with nonunion] Onset: 11-04-2015 Resolved: 11-20-2019 11-04-2015 Episodic Other aftercare (2 sources) Other correction (current) drug therapy; Translations: [Other technician terminal and repeater (current) drug therapy] Onset: 11-17-2021 Episodic Other aftercare (3 sources) termite helper (current) use of insulin; Translations: [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 disease, with long-term current use of insulin (HCC)] Onset: 05-17-2021 Episodic Other connective tissue disease (20 sources) Tear of right rotator cuff; Translations: [Unspecified rotator cuff tear or rupture of right shoulder, not specified as traumatic] Onset: 11-16-2021 Episodic Other lower respiratory disease (20 sources) Apnea; Translations: [Apnea, not elsewhere classified] Onset: 11-23-2019 08-18-2021 Episodic Other lower respiratory disease (20 sources) Snoring; Translations: [Snoring] Onset: 05-17-2021 05-17-2021 Episodic Other male genital disorders (20 sources) Disorder of prostate; Translations: [Disorder of prostate, unspecified] Onset: 11-06-2021 Episodic Other screening for suspected conditions (not mental disorders or infectious disease) (20 sources) Abnormal finding of blood chemistry, unspecified; Translations: [Patient encounter status] Onset: 11-17-2021 Episodic Residual codes; unclassified (2 sources) Awaiting transplantation of kidney; Translations: [Awaiting organ transplant status] Onset: 10-22-2019 Resolved: 11-20-2019 11-20-2019 Chronic Residual codes; unclassified (6 sources) Other specified personal risk factors, not elsewhere classified; Translations: [Other specified personal history presenting hazards to health] Onset: 11-02-2021 Episodic Residual codes; unclassified (20 sources) Active living will ; Translations: [Other specified health status] Onset: 11-16-2021 Episodic Screening and history of mental health and substance abuse codes (20 sources) Ex-smoker; Translations: [Personal history of nicotine dependence] Onset: 05-17-2021 05-17-2021 Episodic Unclassified (5 sources) Patient encounter status; Translations: [Pre-transplant evaluation for ESRD (end stage renal disease)] NEGATED: Highlighted row has not occurred!Residual codes; unclassified (20 sources) Disease Episodic Results Test Name Value Interpretation Reference Range Facil ity Vital Signs Date Time Vital Sign Value Performing Clinician Facility 03-13-2023 08:48-0400 Body height 179.1 cm Claribel Cioce HYDRAULIC LIFT DRIVER.PARACHUTE SUPERVISOR Work Phone: [facility] 03-13-2023 08:48-0400 Body temperature 97.9 [degF] Claribel Cioce HYDRAULIC LIFT DRIVER.PARACHUTE SUPERVISOR Work Phone: [facility] 03-13-2023 08:48-0400 Body weight 84.91 kg Claribel Cioce HYDRAULIC LIFT DRIVER.PARACHUTE SUPERVISOR Work Phone: [facility] 03-13-2023 08:48-0400 Diastolic blood pressure 72 mm[Hg] Claribel Cioce HYDRAULIC LIFT DRIVER.PARACHUTE SUPERVISOR Work Phone: [facility] 03-13-2023 08:48-0400 Heart rate 70 /min Claribel Cioce HYDRAULIC LIFT DRIVER.PARACHUTE SUPERVISOR Work Phone: [facility] 03-13-2023 08:48-0400 SaO2% (BldA) [Mass fraction] 98 % Claribel Cioce HYDRAULIC LIFT DRIVER.PARACHUTE SUPERVISOR Work Phone: [facility] 03-13-2023 08:48-0400 Systolic blood pressure 118 mm[Hg] Claribel Cioce HYDRAULIC LIFT DRIVER.PARACHUTE SUPERVISOR Work Phone: [facility] 12-26-2022 07:50-0400 Body weight 87.54 kg Claribel Krystafernando HYDRAULIC LIFT DRIVER.PARACHUTE SUPERVISOR Work Phone: [facility] 12-06-2022 08:34-0400 Diastolic blood pressure 58 mm[Hg] Alo Avina MD Work Phone: [facility] 12-06-2022 08:34-0400 Systolic blood pressure 138 mm[Hg] Alo Avina MD Work Phone: [facility] 12-06-2022 07:58-0400 Body height 179.1 cm Alo Avina MD Work Phone: [facility] 12-06-2022 07:58-0400 Body weight 87.54 kg Alo Avina MD Work Phone: [facility] 12-06-2022 07:58-0400 Heart rate 60 /min Alo Avina MD Work Phone: [facility] 12-06-2022 07:58-0400 Respiratory rate 14 /min Alo Avina MD Work Phone: [facility] 06-28-2022 08:08-0500 Diastolic blood pressure 78 mm[Hg] Keri Day HYDRAULIC LIFT DRIVER.PARACHUTE SUPERVISOR Work Phone: [facility] 06-28-2022 08:08-0500 Systolic blood pressure 132 mm[Hg] Keri Day HYDRAULIC LIFT DRIVER.PARACHUTE SUPERVISOR Work Phone: [facility] 06-28-2022 07:47-0500 Body weight 88 kg Keri Day HYDRAULIC LIFT DRIVER.PARACHUTE SUPERVISOR Work Phone: [facility] 06-28-2022 07:47-0500 Heart rate 59 /min Keri Day HYDRAULIC LIFT DRIVER.PARACHUTE SUPERVISOR Work Phone: [facility] 06-28-2022 07:47-0500 Respiratory rate 16 /min Keri Day HYDRAULIC LIFT DRIVER.PARACHUTE SUPERVISOR Work Phone: [facility] 05-30-2022 09:13-0500 Body weight 87.09 kg Alo Avina MD Work Phone: [facility] 05-30-2022 09:13-0500 Diastolic blood pressure 70 mm[Hg] Alo Avina MD Work Phone: [facility] 05-30-2022 09:13-0500 Heart rate 64 /min Alo Avina MD Work Phone: [facility] 05-30-2022 09:13-0500 Respiratory rate 16 /min Alo Avina MD Work Phone: [facility] 05-30-2022 09:13-0500 Systolic blood pressure 140 mm[Hg] Alo Avina MD Work Phone: [facility] 05-21-2022 12:31-0500 Body height 177.8 cm [facility] Prep Covid Mab Transplant [facility] 05-21-2022 12:31-0500 Body mass index (BMI) [Ratio] 27.26 kg/m2 [facility] Prep Covid Mab Transplant [facility] 05-21-2022 12:31-0500 Body temperature 97.59 [degF] [facility] Prep Covid Mab Transplant [facility] 05-21-2022 12:31-0500 Body weight 86.18 kg [facility] Prep Covid Mab Transplant [facility] 05-21-2022 12:31-0500 Diastolic blood pressure 66 mm[Hg] [facility] Prep Covid Mab Transplant [facility] 05-21-2022 12:31-0500 Heart rate 58 /min [facility] Prep Covid Mab Transplant [facility] 05-21-2022 12:31-0500 Systolic blood pressure 142 mm[Hg] [facility] Prep Covid Mab Transplant [facility] 11-16-2021 09:12-0400 Body weight 88 kg Alo Avina MD Work Phone: [facility] 11-16-2021 09:12-0400 Diastolic blood pressure 68 mm[Hg] Alo Avina MD Work Phone: [facility] 11-16-2021 09:12-0400 Heart rate 60 /min Alo Avina MD Work Phone: [facility] 11-16-2021 09:12-0400 Respiratory rate 16 /min Alo Avina MD Work Phone: [facility] 11-16-2021 09:12-0400 Systolic blood pressure 116 mm[Hg] Alo Avina MD Work Phone: [facility] 04-08-2019 15:26-0400 BMI (Body Mass Index) 31.12 kg/m2 Flor Wong MG-Transpl ant-Math er Work Phone: 04-08-2019 15:26-0400 Body weight 99.79 kg Flor Wong SZ-Knfwfgnbay-Bm th er Work Phone: 04-08-2019 15:26-0400 BP Diastolic 70 mm[Hg] Flor Wong UJ-Vpmvkfzcyz-Nf th er Work Phone: Encounters Encounter Date Encounter Type Care Provider Facility Start: 08-28-2023 Chart abstracting Alo schneider MD Work Phone: [facility] Eduardo Procedures Date Procedure Procedure Detail Performing Clinician Start: 11-28-2022 CBC W/DIFF/PLT (EXTERNAL LAB FE) [facility] Provider Start: 11-28-2022 Comprehensive metabolic 2000 panel - Serum or Plasma [facility] Provider Start: 11-28-2022 Lipid panel [facility] Start: 11-28-2022 MICROALBUMIN/CREATININE UR W RATIO (EXTERNAL) [facility] Provider Start: 11-28-2022 PSA screening [facility] Start: 11-28-2022 VITAMIN D (OUTSIDE) [facility] Start: 11-02-2022 Colonoscopy Alo Avina MD Work Phone: Start: 05-16-2022 Hemoglobin A1c/Hemoglobin.total in Blood [facility] Start: 11-16-2021 Adult depression screening assessment Alo Avina MD Work Phone: Start: 11-07-2020 Adult depression screening assessment Alo Avina MD Work Phone: Start: 11-23-2019 History of renal transplant Renal transplant recipient Alo Avina MD Work Phone: Start: 10-22-2019 History of renal transplant Kidney replaced by donor transplant 10/22/2019 [facility] Prep Covid Mab Transplant [facility] Start: 04-11-2019 Follow-up visit Start: 04-08-2019 End: 04-08-2019 Follow-up visit Start: 02-25-2019 Echocardiography [facility] Start: 12-26-2018 Antibody hiv-1 [facility] Start: 12-26-2018 Echocardiography [facility] Start: 12-26-2018 Hemoglobin glycosylated a1c [facility] nsangelito Start: 12-26-2018 Hepatitis b core antibody hbcab total [facility] Start: 12-26-2018 Hepatitis b surf antibody hbsab [facility] Start: 12-26-2018 Hepatitis c antibody [facility] Start: 12-26-2018 Iaad ia hepatitis b surface antigen [facility] Start: 12-26-2018 Mycobacterium tuberculosis stimulated gamma interferon [Interpretation] in Blood Qualitative [facility] Start: 12-26-2018 NM Cardiac Stress/Rest Nuclear Med Order [facility] Start: 12-26-2018 Syphilis IGG [facility] Start: 12-26-2018 Xray Chest 2 View PA + Lateral [facility] Start: 09-30-2017 Colonoscopy Alo Avina MD Work Phone: History of renal transplant Ara l transplant recipient Alo Avina MD Work Phone: History of renal transplant Ara l transplant recipient Alo Avina MD Work Phone: History of Transuret hral Resection Of Prostate (TURP) [facility] History of Wrist Surgery [facility] Plan of Treatment Date Care Activity Detail Author Start: 11-29-2027 PROSTATE CANCER SCREENING DISCUSSION PROSTATE CANCER SCREENING DISCUSSION [facility] Start: 11-29-2027 Prostate specific antigen measurement Prostate Cancer Screening Discussion [facility] Start: 11-03-2027 Colonoscopy COLONOSCOPY [facility] Start: 11-03-2027 COLORECTAL CANCER SCREENING COLORECTAL CANCER SCREENING [facility] Start: 11-03-2027 Screening for malignant neoplasm of colon [facility] Start: 01-24-2026 Tetanus vaccination [facility] Start: 01-24-2026 Urine microalbumin profile [facility] Start: 08-19-2024 Glaucoma screening Dilated Retinal Exam [facility] Start: 06-19-2024 BP Controlled (<130/80) BP Controlled (<130/80) [facility] Start: 06-18-2024 Annual PCP Team Chronic Disease Visit Annual PCP Team Chronic Disease Visit [facility] Start: 06-18-2024 Diabetic foot examination Diabetic Foot Exam [facility] Start: 06-10-2024 PROSTATE CANCER SCREENING DISCUSSION PROSTATE CANCER SCREENING DISCUSSION [facility] Start: 05-16-2024 Creatinine measurement Serum Creatinine [facility] Start: 03-13-2024 BP CONTROLLED (<130/80) BP CONTROLLED (<130/80) [facility] Start: 02-26-2024 Hepatitis C antibody, confirmatory test DILATED RETINAL EXAM [facility] Start: 12-27-2023 BP CONTROLLED (<130/80) BP CONTROLLED (<130/80) [facility] Start: 12-07-2023 ANNUAL PCP TEAM CHRONIC DISEASE VISIT ANNUAL PCP TEAM CHRONIC DISEASE VISIT [facility] Start: 11-29-2023 Hepatitis B surface antibody level LDL CHOLESTEROL [facility] Start: 09-06-2023 End: 11-06-2023 ALBUMIN/CREAT RATIO RND UR ALBUMIN/CREAT RATIO RND UR Lab Routine Type II diabetes mellitus with manifestations (HCC) Expected: 09/06/2023, Expires: 11/06/2023 [facility] Work Phone: Immunizations Immunization Date Immunization Notes Care Provider Leena crane 04-21-2023 respiratory syncytia l virus (RSV) vaccine, adjuvanted (AREXVY) Alo Avina MD Work Phone: [facility] 04-07-2023 influenza, high dose seasonal, preservative-free Alo Avina MD Work Phone: [facility] 04-07-2022 influenza, high dose seasonal, preservative-free Alo Avina MD Work Phone: [facility] 04-07-2022 influenza virus vacc ine, unspecified formulation Claribel Cope APRN.CNP Work Phone: [facility] 12-04-2021 zoster vaccine recombinant Alo Avina MD Work Phone: [facility] 05-17-2021 pneumococcal polysaccharide vaccine, 23 valent Alo Avina MD Work Phone: [facility] 05-02-2021 COVID-19 vaccine, MR KAL, Eliud, 0.3 ML [facility] Prep Covid Mab Transplant [facility] 04-15-2021 influenza, high-dose , quadrivalent vaccine (FLUZONE HIGH DOSE QUADRIVALENT) Alo Avina MD Work Phone: [facility] 04-15-2021 influenza virus vacc ine, unspecified formulation [facility] Prep Covid Mab Transplant [facility] 10-04-2020 COVID-19 vaccine, ag e 12+ yr (PFIZER-BIONTECH - PURPLE TOP) Alo Avina MD Work Phone: [facility] 09-12-2020 COVID-19 vaccine, ag e 12+ yr (PFIZER-BIONTECH - PURPLE TOP) Alo Avina MD Work Phone: [facility] 05-13-2020 influenza, injectabl e, quadrivalent, contains preservative Alo Avina MD Work Phone: [facility] Work Phone: 03-30-2019 influenza, seasonal, injectable Alo Avina MD Work Phone: [facility] 03-12-2019 zoster vaccine recombinant Alo Avina MD Work Phone: [facility] 03-11-2019 measles, mumps and rubella virus vaccine Alo Avina MD Work Phone: [facility] 10-16-2017 hepatitis B vaccine, adult dosage Alo Avina MD Work Phone: [facility] 04-17-2017 influenza, injectabl e, quadrivalent, preservative free Alo Avina MD Work Phone: [facility] 04-17-2017 influenza, seasonal, injectable Alo Avina MD Work Phone: [facility] 09-20-2016 pneumococcal conjuga te vaccine, 13 valent Alo Avina MD Work Phone: [facility] 06-06-2016 zoster vaccine, live Alo Avina MD Work Phone: [facility] Work Phone: 01-25-2016 tetanus toxoid, redu martin diphtheria toxoid, and acellular pertussis vaccine, adsorbed Alo Avina MD Work Phone: [facility] 06-06-2015 tetanus and diphther ia toxoids, adsorbed, preservative free, for adult use (2 Lf of tetanus toxoid and 2 Lf of diphtheria toxoid) Alo Avina MD Work Phone: [facility] 06-06-2015 tetanus and diphther ia toxoids, adsorbed, preservative free, for adult use (5 Lf of tetanus toxoid and 2 Lf of diphtheria toxoid) Alo Avina MD Work Phone: [facility] 04-07-2015 influenza, seasonal, injectable Alo Avina MD Work Phone: [facility] 05-05-2014 influenza, seasonal, injectable Alo Avina MD Work Phone: [facility] 04-19-2012 influenza virus vacc ine, unspecified formulation Alo Avina MD Work Phone: [facility] 07-08-2009 pneumococcal conjuga te vaccine, 13 valent Alo Avina MD Work Phone: [facility] 05-11-2009 novel influenza-H1N1 -09, preservative-free, injectable Alo Avina MD Work Phone: [facility] 04-02-2009 influenza virus vacc ine, unspecified formulation Alo Avina MD Work Phone: [facility] 05-05-2007 influenza virus vacc ine, unspecified formulation Alo Avina MD Work Phone: [facility] Work Phone: 02-06-2007 pneumococcal polysaccharide vaccine, 23 valent Alo Avina MD Work Phone: [facility] Work Phone: 05-11-2006 influenza virus vacc ine, unspecified formulation Alo Avina MD Work Phone: [facility] Work Phone: 11-23-2005 tetanus and diphther ia toxoids, adsorbed, preservative free, for adult use (2 Lf of tetanus toxoid and 2 Lf of diphtheria toxoid) Alo Avina MD Work Phone: [facility] Work Phone: 11-23-1991 diphtheria and tetan us toxoids, adsorbed for pediatric use Alo Avina MD Work Phone: [facility] Work Phone: Payers Date Payer Category Payer Medicare [employer] MEDICARE [employer] GOLD PLUS [id number] 2020-Present [phone] [address] [address] [place] [address] O [id number] 2020 Medicare [id number] 2020 Medicare [id number] 2019 Unknown MMO MMO TPA xxxx [id number] 2019-Present [address] [place] [address] PPO [id number] 2019 Unknown [id number] 2019 Unknown [id number] 1955 Unknown [id number] 1955 Unknown [id number] 1955 Unknown [id number] Unknown [employer] xxxxxxxxx Effective for all dates xxxxxxxxx [id number] Unknown ARCHIE[employer] ANTHEM HM O PPO POS xxxxxxxxxxxx Effective for all dates xxxxxxxxxxxx [id number] Social History Date Type Detail Facility Start: 02-10-2019 End: 05-30-2022 Tobacco smoking status NHIS Former smoker [facility] Work Phone: Start: 1955 Sex Assigned At Not on file O [facility] Start: 02-10-2019 Alcohol intake Not Asked [facility] End: 07-08-1976 History of tobacco use Cigarette Smoker [facility] Work Phone: Start: 05-17-2021 End: 06-19-2023 Alcohol intake Current drinker of alcohol (finding) [facility] End: 07-08-1976 History of tobacco use Current smoker [facility] Start: 06-08-2019 End: 03-13-2023 Cigarettes smoked current (pack per day) - Reported 0.5 [facility] Work Phone: Start: 06-08-2019 End: 05-30-2022 Tobacco use and exposure Smokeless tobacco non-user [facility] Start: 06-08-2019 History SDOH Alcohol Frequency 2 [facility] Start: 06-08-2019 History SDOH Alcohol Std Drinks 1 [facility] Start: 11-06-2021 End: 05-30-2022 Exposure to SARS-CoV-2 (event) Not sure [facility] Start: 05-30-2022 Tobacco Comment quit 1969' [facility] Start: 12-06-2022 End: 03-13-2023 Tobacco use panel [facility] Work Phone: Adult Depression Screening Assessment 0 [facility] Work Phone: NEGATED: Highlighted row - - [facility] Work Phone: Medical Equipment Procedure Code Equipment Code Equipment Origin al Text Equipment Identifier Dates Putty Dbx 2.5cc - [id number] Start: 10-25-2015 Screw 2.3x12mm Co-T2312 - [id number] Start: 10-25-2015 Screw Crtx Stp F trd 2.4x18 - [id number] Start: 10-25-2015 Screw Crtx Stp F trd 2.4x14 - [id number] Start: 10-25-2015 Screw 2.3x16mm Co-T2316 - [id number] Start: 10-25-2015 Screw 2.3x20mm Co-T2320 - [id number] Start: 10-25-2015 Screw 2.3x14mm Co-T2314 - [id number] Start: 10-25-2015 Plate Long Right 70-0048 - [id number] Start: 10-25-2015 Screw Hexalobe 3 .5mm X 12mm - [id number] Start: 10-25-2015 Screw Hexalobe 3 .5mm X 14mm - [id number] Start: 10-25-2015 14 Mm Accumed Screw-3.5mm Locking Hexalobe, Ref# [id number], [id number] Start: 10-25-2015 Plate Lc 2.4x52 06h - [id number] Start: 10-25-[address]p Ft rd 2.4x14 - [id number] Start: 10-25-[address] F[address] rd 2.4x16 - [id number] Start: 10-25-2015 Start: 07-02-2014 End: 03-13-2023 Functional Status Date Assessment Result Facility NEGATED: Highlighted row Functional performance Functional status health issues are not documented Disease [facility] Work Phone: Mental Status Date Assessment Result Facility NEGATED: Highlighted row Cognitive function [Interpretation] Cognitive status health issues are not documented Disease [facility] Work Phone: Clinical Notes 12-05-2018 to 08-28-2023 Rj Holcomb LPN - 08/28/2023 8:31 AM ESTWynnLiz LPN - 05/21/2023 11:10 AM ESTTelephone Encounter - Alo Avina MD - 05/08/2023 9:[address] MA - 01/28/2023 3:17 PM EDT Note Date & Type Note Facility 08-28-2023 Note HNO ID: [id number] Author: RJ HOLCOMB LPN Service: ? Author Type: LICENSED NURSE Type: Progress Notes Filed: 08/28/2023 08:44 Note Text: Scan on 08/28/2023 2:43 AM by Irma Alvarado PA-C: Consultation - Ophthalmology [facility] 08-28-2023 History of Presen t illness Narrative Scan on 08/28/2023 2:43 AM by Irma Alvarado PA-C: Consultation - Ophthalmology documented in this encounter [facility] 08-17-2023 Note HNO ID: [id number] Author: RJ HOLCOMB LPN Service: ? Author Type: LICENSED NURSE Type: Progress Notes Filed: 08/17/2023 11:47 Note Text: Scan on 08/17/2023 11:38 AM by Irma Alvarado PA-C: Miscellaneous Lab [facility] 08-14-2023 Note HNO ID: [id number] Author: RJ HOLCOMB LPN Service: ? Author Type: LICENSED NURSE Type: Progress Notes Filed: 08/14/2023 15:01 Note Text: Scan on 08/14/2023 7:35 AM by Irma Alvarado PA-C: Hematology Scan on 08/14/2023 7:59 AM by Irma Alvarado PA-C: Chemistry [facility] 06-19-2023 Note HNO ID: [id number] Author: Claribel Cope APRN.PARACHUTE SUPERVISOR Service: ? Author Type: Nurse Practitioner Type: Progress Notes Filed: 06/19/2023 9:01 AM Note Text: OFFICE VISIT PROGRESS NOTE CC Bola Gale is a 67 year old male who presents today for blood sugar review, insulin dose review, adjust. HPI Diagnosed with diabetes mellitus type II, ~ 1998 Hx of dialysis ~ 2 years Patient sts kidney issues are not secondary to his diabetes [place] it was related to medication overdose (BP meds) Hx of Kidney tx 10/22/2019 Last endocrine OV 03/13/2023 Some elements copied from my note 03/13/2023 which have been updated where appropriate, and all reflect current medical decision making from date of this visit. DEXCOM G7 not covered by patient insurance Has been using true metrix meter 3 times daily Had bone infection - R foot, lost little toe and some bone behind Had home care BID weekly Was discharged yesterday from home care, will see podiatry q 2 weeks HPI 06/18/2023 Doing well Seeing nephro and did all his labs at outside facility A1C is now 6.2% Feels well Checks BG 4 times daily Morning sugars stable 120-130 Intermittent lower sugars throughout day, will drink some juice Using insulins as per below CURRENT DM MEDS NOVOLOG 5-8-8 SS#1 (5-7 BF, 8-11 lunch and dinner) LANTUS 25 units daily Previously on METFORMIN - sts allergic, itching (on allergy list) SMBG Type of Monitor: Other Frequency of Monitoring: times a day BG Values: Breakfast: 89-153 Lunch: 101-156 Dinner:84-152 Bed-time: Values over past week: Highest 227 Lowest 73 Hypoglycemia: no Diet: Counts Carbs Exercise: walking everyday for 4k steps, some days will double steps DM REVIEW OF SYSTEMS Last Eye Exam : 05/2023 q 4 months, injections (retinopathy) L eye Last Podiatry Exam: declined Cardiorespiratory: negative, denies chest pain, pressure Claudication: no Dyslipidemia: Yes, controlled on medication High Blood Pressure: Yes, controlled on medication OUSIDE LABS 6.2% - collected 05/30/2023 PAST MEDICAL HISTORY Diagnosis Date Advance directive discussed with patient 11/16/2021 Discussed 11/2021 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 07/12/2017 BMI 32.0-32.9,adult BPH (benign prostatic hyperplasia) 03/06/2012 Chronic pain of right knee 12/05/2018 Diabetes mellitus type 2 with neurological manifestations (HCC) 02/13/2013 Diabetic eye exam ([facility]) 10/09/2021 Last done 10/09/2021 [facility] Diabetic ulcer of toe of right foot associated with type 2 diabetes mellitus, limited to breakdown of skin ([facility]) 12/05/2018 Erectile dysfunction 02/24/2010 Essential hypertension, benign Essential tremor 09/20/2016 Ex-smoker 05/17/2021 Fistula 12/20/2017 left forearm radial to cephalic ateriovenous Hearing loss 09/10/2012 Hyperlipidemia, mixed Living will in place 11/16/2021 CRISTOPHER; Reginald (son) Medicare annual wellness visit, subsequent 11/16/2021 Medicare Part B: 01/05/2018, Last done: 11/16/2021 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 ([facility]) 05/17/2021 Osteoarthritis of left knee 02/16/2011 Personal history of nicotine dependence Renal transplant recipient 11/23/2019 Restless leg syndrome 12/05/2018 Right rotator cuff tear 11/16/2021 Treated with PHYSICAL THERAPY. 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 Srinivas--Repeat in 3 years-2020 FISTULA Left 09/11/2017 Radiocephalic arteriovenous fistula creation--[facility]--R. Srinivas PAST SURGICAL HISTORY OF 06/07/15 right grade II Open distal radius and ulnar shaft fracture PROSTATE SURGERY HX REM LESION TRUNK,ARM, LEG <0.5 CM 05/07/07 Exc. piero cyst upper mid back FAMILY HISTORY Problem Relation Age of Onset Diabetes Mother Hypertension Mother Heart Mother [place] other (lung cancer) Mother bone metastasis Diabetes Father other (BPH) Father other (pancreatic cancer) Father Diabetes Brother Diabetes Brother Social History Tobacco Use Smoking status: Former Packs/day: 1.00 Years: 6.00 Additional pack years: 0.00 Total pack years: 6.00 Types: Cigarettes Smokeless tobacco: Never Tobacco comments: quit Substance Use Topics Alcohol use: Yes Comment: RARE Drug use: No Current Outpatient Medications Medication Sig NIFEdipine ER (PROCARDIA XL) 30 mg 24 hr table (more content not included)... [facility] 06-18-2023 Note HNO ID: [id number] Author: Alo Avina MD Service: ? Author Type: Physician Type: Progress Notes Filed: 06/18/2023 9:15 PM Note Text: Bola Gale is a 67 year old male here for a Medicare wellness visit. Medicare Health Risk Assessment General Health fair Exercise: Minutes/Day walking Exercise: Days/Week Alcohol: Daily Use none Alcohol: Drinks/Day Alcohol: 6 or more drinks Feel off balance no Concerns: Teeth/Dentures no Concerns: Sexual function Troubled by feelings no Frequency: Eating healthy diet yes ADLs requiring help no Safety precautions in home/vehicle Some loose rugs, has grab bars Smoke, vape, chews tobacco Quit at age 21 Difficulty hearing no Difficulty seeing Seeing optho Current Providers Specialists: I have reviewed specialist-related care of the patient in the medical record. Current care team: Patient Care Team: Alo Avina MD as PCP - General (Family Medicine) Seeing Renal, Endo and optho Medical/Family history review Reviewed and updated problem list, medical/surgical/family/social history, medications, and allergies. Opioid use review Opioid Medications (last 90 days) Some values may be hidden. Unless noted otherwise, only the newest values recorded on each date are displayed. Opioid Medications No data to display. Depression screening Depression Screening PHQ-2 Score 12/06/2022 0 Depression screening tool completed and reviewed. Based on score and interview, patient is not at risk for depression. Screening tool discussed with patient, and I recommended no further intervention at this time. Cognitive screening Cognitive screening reviewed and no further action needed (score 3-5) Functional Observation Was the patient's timed Up AND Go test unsteady or ? 12 seconds? No Advance Care Planning Surrogate decision maker and/or advance care plan documented Measurements BP 126/70 Pulse 56 Resp 16 Ht 5' 10.5 (1.79m) Wt 189 lb (85.7kg) BMI 26.73 kg/(m2). Seeing optho Additional screenings: No results found. Assessment/Plan Medicare annual wellness visit, subsequent (Z00.00) - Counseled on healthy diet and regular exercise - Fall avoidance information provided - Personalized prevention plan provided See below Chief Complaint Patient presents with: Medicare Wellness Exam HPI Bola Gale is a 67 year old male who presents here today for Chronic Medical Conditions. and Medicare Annual Visit. Patient with Hx of diabetes with retinopathy, Neuropathy due to diabetes, Hyperlipidemia, HTN, Anemia, s/p renal transplant, Vit D def, essential tremor, RLS, BPH, ex-smoker as well as those reviewed and addressed below and in ROS. Any new concerns today? none Any recent ER/hospital visits? None since his foot surgery Patient sees endocrinology - [facility] Patient sees ophthalmology - 06/2023 - Dr. Peoples Past medical history, appointments, medications, allergies reviewed. Previous Medical History PAST MEDICAL HISTORY Diagnosis Date Advance directive discussed with patient 11/16/2021 Discussed 11/2021 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 07/12/2017 BMI 32.0-32.9,adult BPH (benign prostatic hyperplasia) 03/06/2012 Chronic pain of right knee 12/05/2018 Diabetes mellitus type 2 with neurological manifestations (HCC) 02/13/2013 Diabetic eye exam (HCC) 10/09/2021 Last done 10/09/2021 [facility] Diabetic ulcer of toe of right foot associated with type 2 diabetes mellitus, limited to breakdown of skin (HCC) 12/05/2018 Erectile dysfunction 02/24/2010 Essential hypertension, benign Essential tremor 09/20/2016 Ex-smoker 05/17/2021 Fistula 12/20/2017 left forearm radial to cephalic ateriovenous Hearing loss 09/10/2012 Hyperlipidemia, mixed Living will in place 11/16/2021 CRISTOPHER; Reginald (son) Medicare annual wellness visit, subsequent 11/16/2021 Medicare Part B: 01/05/2018, Last done: 11/16/2021 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) 05/17/2021 Osteoarthritis of left knee 02/16/2011 Personal history of nicotine dependence Renal transplant recipient 11/23/2019 Restless leg syndrome 12/05/2018 Right rotator cuff tear 11/16/2021 Treated with PHYSICAL THERAPY. 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 (more content not included)... [facility] 06-13-2023 Note HNO ID: [id number] Author: Rj Holcomb LPN Service: ? Author Type: ? Type: Progress Notes Filed: 06/13/2023 8:50 AM Note Text: Scan on 06/12/2023 7:51 PM by Irma Alvarado PA-C: Consultation - Ophthalmology [facility] 05-21-2023 Note HNO ID: [id number] Author: Liz Cuevas LPN Service: ? Author Type: ? Type: Progress Notes Filed: 05/21/2023 11:10 AM Note Text: Scan on 05/19/2023 3:35 PM by Irma Alvarado PA-C: Miscellaneous Lab Scan on 05/19/2023 3:35 PM by Irma Alvarado PA-C: Chemistry [facility] 05-21-2023 History of Presen t illness Narrative Scan on 05/19/2023 3:35 PM by Irma Alvarado PA-C: Miscellaneous Lab Scan on 05/19/2023 3:35 PM by Irma Alvarado PA-C: Chemistry documented in this encounter [facility] 05-08-2023 Miscellaneous Notes The following approved medication requests have been transmitted electronically. Requested Prescriptions Signed Prescriptions Disp Refills NIFEdipine ER (PROCARDIA XL) 30 mg 24 hr tablet 90 tablet 1 Sig: Take 1 tablet by mouth once daily. Authorizing Provider: ALO AVINA MD Patient has been identified by name and date of : Yes Requested Prescriptions Pending Prescriptions Disp Refills NIFEdipine ER (PROCARDIA XL) 30 mg 24 hr tablet 90 tablet 1 Sig: Take 1 tablet by mouth once daily. RX INSTRUCTIONS: Patient aware RX will be sent to pharmacy. No need to notify patient. Soraida Plaza MA Saima 12/2022 Nov: 06/2023 Last refill; 11/2022 Provider was not available on 06/19/2023 patient's original appointment was rescheduled to 08/2022. Contacted patient and rescheduled to 06/18/[address] [facility] for patient to complete before his appointment. Soraida Plaza MA Patient has been identified by name and date of : Yes Requested Prescriptions Pending Prescriptions Disp Refills NIFEdipine ER (PROCARDIA XL) 30 mg 24 hr tablet 90 tablet 1 Sig: Take 1 tablet by mouth once daily. RX INSTRUCTIONS: Patient aware RX will be sent to pharmacy. No need to notify patient. Azeb Duggan documented in this encounter [facility] 04-01-2023 Note HNO ID: [id number] Author: Alo Avina MD Service: ? Author Type: Physician Type: Progress Notes Filed: 04/01/2023 1:15 PM Note Text: Patient's home health 485 form / care plan for certification period 03/10/2023 to 03/12/2023 reviewed and signed. Relevant medical records were reviewed. No changes were indicated [facility] 04-01-2023 History of Presen t illness Narrative Patient's home health 485 form / care plan for certification period 03/10/2023 to 03/12/2023 reviewed and signed. Relevant medical records were reviewed. No changes were indicated documented in this encounter [facility] 03-25-2023 Miscellaneous Notes SAIMA 12/06/22 NOV 06/19/23 Mary Dowell MA Patient has been identified by name and date of : Yes Requested Prescriptions Pending Prescriptions Disp Refills finasteride (PROSCAR) 5 mg tablet 90 tablet 1 Sig: Take 1 tablet by mouth once daily. RX INSTRUCTIONS: Patient aware RX will be sent to pharmacy. No need to notify patient. Mary Duggan documented in this encounter [facility] 03-19-2023 Miscellaneous Notes Patient seen by Alondra Cope on 03/13/2023. Closing TE. Bianca Wahl RN also dropped off results to PCP office. Given to PCP. Soraida Plaza MA Patients dropped of BS readings to office. Will keep for provider to review when she is back in the office. 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 Offered to taking readings/information over the phone and Radha would prefer to bring in to the office. Will also drop copy of BS readings to Dr. Avina's office (she felt more comfortable keeping him in the loop). Per Radha, Dr. Avina aware of hospitalization and no need for hospital follow up with him. Radha reports all current readings are fingerstick. Not currently utilizing the Dexcom Sensor. Bianca Wahl RN documented in this encounter [facility] 03-13-2023 Note HNO ID: [id number] Author: Claribel Cope APRN.PARACHUTE SUPERVISOR Service: ? Author Type: Nurse Practitioner Type: Progress Notes Filed: 03/13/2023 9:07 AM Note Text: OFFICE VISIT PROGRESS NOTE CC Bola Gale is a 67 year old male who presents today for blood sugar review, insulin dose review/adjust. HPI Diagnosed with diabetes mellitus type II, ~ 1997 Hx of dialysis ~ 2 years Patient sts kidney issues are not secondary to his diabetes [place] it was related to medication overdose (BP meds) Hx of Kidney tx 10/22/2019 Last endocrine OV 12/26/2022 Some elements copied from my note 12/26/2022 which have been updated where appropriate, and all reflect current medical decision making from date of this visit. DEXCOM G7 not covered by patient insurance Has been using true metrix meter 3 times daily Had bone infection - R foot, lost little toe and some bone behind Had home care BID weekly Was discharged yesterday from home care, will see podiatry q 2 weeks CURRENT DM MEDS NOVOLOG 8-8-8 SS#1 LANTUS 25 units daily Previously on METFORMIN - sts allergic, itching (on allergy list) SMBG Type of Monitor: Other Frequency of Monitoring: times a day BG Values: Breakfast: 131-163 Lunch: 80-143 Dinner: 69-123 Bed-time: Values over past week: Highest 208; Lowest 69 Hypoglycemia: no Diet: Counts Carbs Exercise: walking DM REVIEW OF SYSTEMS Last Eye Exam : 01/2023 q 4 months, injections (retinopathy) Last Podiatry Exam: declined Cardiorespiratory: negative, denies chest pain, pressure Claudication: no Dyslipidemia: Yes, controlled on medication High Blood Pressure: Yes, controlled on medication CURRENT LABS OUTSIDE LABS, no A1C for review (scanned to [employer]) IN OFFICE A1C PAST MEDICAL HISTORY Diagnosis Date Advance directive discussed with patient 11/16/2021 Discussed 11/2021 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 07/12/2017 BMI 32.0-32.9,adult BPH (benign prostatic hyperplasia) 03/06/2012 Chronic pain of right knee 12/05/2018 Diabetes mellitus type 2 with neurological manifestations ([facility]) 02/13/2013 Diabetic eye exam ([facility]) 10/09/2021 Last done 10/09/2021 [facility] Diabetic ulcer of toe of right foot associated with type 2 diabetes mellitus, limited to breakdown of skin ([facility]) 12/05/2018 Erectile dysfunction 02/24/2010 Essential hypertension, benign Essential tremor 09/20/2016 Ex-smoker 05/17/2021 Fistula 12/20/2017 left forearm radial to cephalic ateriovenous Hearing loss 09/10/2012 Hyperlipidemia, mixed Living will in place 11/16/2021 DPA; Reginald (son) Medicare annual wellness visit, subsequent 11/16/2021 Medicare Part B: 01/05/2018, Last done: 11/16/2021 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 ([facility]) 05/17/2021 Osteoarthritis of left knee 02/16/2011 Personal history of nicotine dependence Renal transplant recipient 11/23/2019 Restless leg syndrome 12/05/2018 Right rotator cuff tear 11/16/2021 Treated with PHYSICAL THERAPY. 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, with long-term current use of insulin ([facility]) 09/20/2016 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 disease, with long-term current use of insulin ([facility]) 08/21/2019 Vitamin D deficiency 07/31/2017 Witnessed episode of apnea 11/23/2019 PAST SURGICAL HISTORY Procedure Laterality Date COLONOSCOPY FLX DX W/COLLJ SPEC WHEN PFRMD 09/30/2017 KIRSTEN Espino--Repeat in 3 years-2020 FISTULA Left 09/11/2017 Radiocephalic arteriovenous fistula creation--[facility] PAST SURGICAL HISTORY OF 06/07/15 right grade II Open distal radius and ulnar shaft fracture PROSTATE SURGERY HX REM LESION TRUNK,ARM, LEG <0.5 CM 05/07/07 Exc. piero cyst upper mid back FAMILY HISTORY Problem Relation Age of Onset Diabetes Mother Hypertension Mother Heart Mother [place] other (lung cancer) Mother bone metastasis Diabetes Father other (BPH) Father other (pancreatic cancer) Father Diabetes Brother Diabetes Brother Social History Tobacco Use Smoking status: Former Packs/day: 1.00 Years: 6.00 Additional pack years: 0.00 Total pack years: 6.00 Types: Cigarettes Smokeless tobacco: Never Tobacco comments: quit Substance Use Topics Alcohol use: Yes Comment: RARE Drug use: No Current Outpatient Medications Medication Sig insulin aspart U-100 (NOVOLOG FLEXPEN U-100 INSULIN) 100 unit/mL (3 mL) 8 units subcutaneously three times daily with meals. PLUS SLIDING SCALE #1 (based on pre meal blood sugar) Blood-Glucose Sensor (DEXCOM G7 SENSOR) william Change sensor every 10 days. USE FOR CONTINUOUS GLUCOSE MONITORING. MULTIPLE INSULIN INJECTIONS E11.9 Blood-Glucose Meter,Continuo (more content not included)... [facility] 03-13-2023 History of Presen t illness Narrative OFFICE VISIT PROGRESS NOTE CC Bola Gale is a 67 year old male who presents today for blood sugar review, insulin dose review/adjust. HPI Diagnosed with diabetes mellitus type II, ~ 1997 Hx of dialysis ~ 2 years Patient sts kidney issues are not secondary to his diabetes [place] it was related to medication overdose (BP meds) Hx of Kidney tx 10/22/2019 Last endocrine OV 12/26/2022 Some elements copied from my note 12/26/2022 which have been updated where appropriate, and all reflect current medical decision making from date of this visit. DEXCOM G7 not covered by patient insurance Has been using true metrix meter 3 times daily Had bone infection - R foot, lost little toe and some bone behind Had home care BID weekly Was discharged yesterday from home care, will see podiatry q 2 weeks CURRENT DM MEDS NOVOLOG 8-8-8 SS#1 LANTUS 25 units daily Previously on METFORMIN - sts allergic, itching (on allergy list) SMBG Type of Monitor: Other Frequency of Monitoring: times a day BG Values: Breakfast: 131-163 Lunch: 80-143 Dinner: 69-123 Bed-time: Values over past week: Highest 208; Lowest 69 Hypoglycemia: no Diet: Counts Carbs Exercise: walking DM REVIEW OF SYSTEMS Last Eye Exam : 01/2023 q 4 months, injections (retinopathy) Last Podiatry Exam: declined Cardiorespiratory: negative, denies chest pain, pressure Claudication: no Dyslipidemia: Yes, controlled on medication High Blood Pressure: Yes, controlled on medication CURRENT LABS OUTSIDE LABS, no A1C for review (scanned to epic) IN OFFICE A1C PAST MEDICAL HISTORY Diagnosis Date Advance directive discussed with patient 11/16/2021 Discussed 11/2021 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 07/12/2017 BMI 32.0-32.9,adult BPH (benign prostatic hyperplasia) 03/06/2012 Chronic pain of right knee 12/05/2018 Diabetes mellitus type 2 with neurological manifestations ([facility]) 02/13/2013 Diabetic eye exam (HCC) 10/09/2021 Last done 10/09/2021 [facility] Diabetic ulcer of toe of right foot associated with type 2 diabetes mellitus, limited to breakdown of skin ([facility]) 12/05/2018 Erectile dysfunction 02/24/2010 Essential hypertension, benign Essential tremor 09/20/2016 Ex-smoker 05/17/2021 Fistula 12/20/2017 left forearm radial to cephalic ateriovenous Hearing loss 09/10/2012 Hyperlipidemia, mixed Living will in place 11/16/2021 JC Reginald (son) Medicare annual wellness visit, subsequent 11/16/2021 Medicare Part B: 01/05/2018, Last done: 11/16/2021 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 ([facility]) 05/17/2021 Osteoarthritis of left knee 02/16/2011 Personal history of nicotine dependence Renal transplant recipient 11/23/2019 Restless leg syndrome 12/05/2018 Right rotator cuff tear 11/16/2021 Treated with PHYSICAL THERAPY. 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-Steph Espino--Repeat in 3 years-2020 FISTULA Left 09/11/2017 Radiocephalic arteriovenous fistula creation--[facility]--Steph Espino PAST SURGICAL HISTORY OF 06/07/15 right grade II Open distal radius and ulnar shaft fracture PROSTATE SURGERY HX REM LESION TRUNK,ARM, LEG <0.5 CM 05/07/07 Exc. piero cyst upper mid back FAMILY HISTORY Problem Relation Age of Onset Diabetes Mother Hypertension Mother Heart Mother [place] other (lung cancer) Mother bone metastasis Diabetes Father other (BPH) Father other (pancreatic cancer) Father Diabetes Brother Diabetes Brother Social History Tobacco Use Smoking status: Former Packs/day: 1.00 Years: 6.00 Additional pack years: 0.00 Total pack years: 6.00 Types: Cigarettes Smokeless tobacco: Never Tobacco comments: quit Substance Use Topics Alcohol use: Yes Comment: RARE Drug use: No Current Outpatient Medications Medication Sig insulin aspart U-100 (NOVOLOG FLEXPEN U-100 INSULIN) 100 unit/mL (3 mL) 8 units subcutaneously three times daily with meals. PLUS SLIDING SCALE #1 (based on pre meal blood sugar) Blood-Glucose Sensor (DEXCOM G7 SENSOR) william Change sensor every 10 days. USE FOR CONTINUOUS GLUCOSE MONITORING. MULTIPLE INSULIN INJECTIONS E11.9 Blood-Glucose Meter,Continuous (DEXCOM G7 PENSION ADVISER) [facility] Dispense one scallop binder kit. E11.9 USE FOR CONTINUOUS GLUCOSE MONITORING. Multiple insulin injections. labetalol (TRANDATE) 100 mg tablet Take 1.5 tablets by mouth twice daily. insulin glargine (LANTUS SOLOSTAR U-100 INSULIN) 100 unit/mL (3 mL) INJECT 25 Units at bedtime Insulin [place], Disposable, (BD ULTRAFINE III MINI PEN) 31 gauge x 3/16 use four times/day NIFEdipine ER (PROCARDIA XL) 30 mg 24 hr tablet Take 1 tablet by mouth once daily. rosuvastatin (CRESTOR) 10 mg tablet Take 1 tablet by mouth once daily. finasteride (PROSCAR) 5 mg tablet Take 1 tablet by mouth once daily. Cholecalciferol, Vitamin D3, 50 mcg (2,000 unit) cap Take by mouth. OTC - take one tablet daily tacrolimus ER (ENVARSUS XR) 1 mg tablet Take 1 tablet by mouth once daily. triamcinolone acetonide (KENALOG) 0.1 % cream Apply 1 application to affected area once daily. Apply to affected area as needed for itching. Location: lower legs mycophenolate sodium DR (MYFORTIC) 360 mg TbEC Take 720 mg by mouth twice daily. aspirin, enteric coated (ASPIRIN, ENTERIC COATED) 81 mg EC tablet Take 81 mg by mouth once daily. blood sugar diagnostic (Drawn to ScaleTOUCH ULTRA TEST) test strip Test blood sugar(s) two times daily. Dx: 250.02. Insulin: No Lancets (ONE TOUCH DELICA) lancets Test blood sugar(s) 4 daily. Dx: 250.02 Insulin: Yes No current facility-administered medications for this visit. ALLERGIES Allergen Reactions Bactrim [Sulfametho* Hives Metformin Rash Lipitor [Atorvastat* Other: See Comments myalgia Norvasc [Amlodipine* Swelling REVIEW OF SYSTEMS - POSITIVES IN BOLD GENERAL:No weight loss, malaise or fevers HEENT:Negative for frequent or significant headaches, No changes in hearing or vision, no nose bleeds or other nasal problems NECK:Negative for lumps, goiter, pain and significant neck swelling RESPIRATORY: Negative for cough, hemoptysis, wheezing, COPD, dyspnea or shortness of breath CARDIOVASCULAR: Negative for chest pain, leg swelling, hypertension, CHF or palpitations PHYSICAL EXAMINATION: BP 118/72 Pulse 70 Temp 36.6 C (97.9 F) (Temporal Artery) Ht 179.1 cm (5' 10.5 ) Wt 84.9 kg (187 lb 3.2 oz) SpO2 98% BMI 26.48 kg/m GENERAL: alert and appropriate, in no distress and well-hydrated, well nourished SKIN: no rash noted HEAD: normocephalic, no abnormality or lesion noted EYES: PERRL NECK: full ROM, no cervical LNs noted ACANTHOSIS: none noted EXTREMITIES: normal NEUROLOGIC: no obvious deficit ASSESSMENT: (E11.8) Type II diabetes mellitus with manifestations (HCC) (primary encounter diagnosis) Comment: RECOMMEND THE FOLLOWING CHANGES: NOVOLOG 5-8-8 SS#1 LANTUS 25 units daily F/U in 3-6 months Recommended diet: Low carbohydrate and Low saturated fat, low simple sugar, high fiber diet Exercise minimally 150 minutes per week, increase as tolerated. Adequate hydration - 1/2 body wgt in oz of water daily, unless fluid restriction applies. I instructed the patient to monitor blood sugars 4 times per day If blood sugars are persistently high or low, to call our office. Patient to continue to follow up with his PCP and with other consultants regarding his other medical problems. Plan: COMP METABOLIC PANEL, LIPID PANEL, NONFASTING, ALBUMIN/CREAT RATIO RND UR, HGB A1C Claribel Cope CNP documented in this encounter [facility] 03-12-2023 Miscellaneous Notes Orders faxed to [facility]. Cover letter sent with message to fax results to [phone]. Lisandra Velásquez MA I don't think we can see [facility] unless they fax us the results. Phoned patient to update the address and remind him of labs and to bring logs/reader to appointment. Patient will get labs at [facility] at 6 am. Are these orders able to be seen for them? Thanks Lisandra Velásquez MA documented in this encounter [facility] 03-12-2023 Miscellaneous Notes Noted. Reina with [facility] calls to report pt was discharged from their services today. Pt saw Dr. Rojas who said the wound looked healed and he could be discharged. Shantelle Osborn LPN documented in this encounter [facility] 03-07-2023 Miscellaneous Notes Nurse Reina notified. Ok to see patient x1 next week. Reina, nurse @ [facility] calling to let PCP know patient was seen by Dr. Rojas, Senior Corporate Strategy Manager yesterday. He removed patient's sutures and instructed patient to keep dressing intact until Saturday. Reina requesting verbal okay to see patient 1 x next week to check wound prior to discharge from [facility]. Her ph# [phone]. Sadia Reina, DEMETRIO documented in this encounter [facility] 03-01-2023 Note HNO ID: [id number] Author: Rj Holcomb LPN Service: ? Author Type: ? Type: Progress Notes Filed: 03/03/2023 9:33 PM Note Text: Scan on 02/28/2023 6:58 PM by Provider, External, PA-C: Consultation - Ophthalmology [facility] 02-25-2023 Miscellaneous Notes Patient notified and faxed info. Soraida Plaza MA Consult order placed. Patient's calling and states pt would like to see a Insole Filler who is closer to [place] than Dr. Boles, the one pt sees in [place] currently. Asking to see Dr. Dey in [place], as recommended by Dr. Boles, if PCP agreeable to place referral. Please fax referral to Office of Dr. Dey Fax #: [phone] Attention: Shama Please call with update. Thank you. documented in this encounter [facility] 02-13-2023 Note HNO ID: [id number] Author: Soraida Plaza MA Service: ? Author Type: Sql Bi Developer Type: Progress Notes Filed: 02/13/2023 8:25 PM Note Text: Scan on 02/09/2023 1:33 PM by ProviderIrma PA-C: Miscellaneous Lab Soraida Plaza MA [facility] 02-13-2023 History of Presen t illness Narrative Scan on 02/09/2023 1:33 PM by ProviderIrma PA-C: Miscellaneous Lab Soraida Plaza MA documented in this encounter [facility] 02-06-2023 Note HNO ID: [id number] Author: Liz Cuevas LPN Service: ? Author Type: ? Type: Progress Notes Filed: 02/06/2023 4:34 PM Note Text: Scan on 02/06/2023 7:34 AM by ProviderIrma PA-C: Miscellaneous Lab [facility] 02-06-2023 Miscellaneous Notes Call placed to Fay and message left on secure voicemail. Fay to call back if any further questions. Bianca Wahl RN I'm ok with extending Fay with [facility] calls to request extension of HH SN orders for SN 1 wk 1 and 2 wk 4 for continued monitoring. Podiatry will continue to give wound care orders for right foot and toe. Please phone Fay back at [phone]. Bianca Wahl RN documented in this encounter [facility] 01-28-2023 Note HNO ID: [id number] Author: Soraida Plaza MA Service: ? Author Type: Sql Bi Developer Type: Progress Notes Filed: 01/30/2023 12:57 PM Note Text: Scan on 01/27/2023 10:07 AM by ProviderIrma PA-C: Miscellaneous Lab Soraida Plaza MA [facility] 01-28-2023 History of Presen t illness Narrative Scan on 01/27/2023 10:07 AM by ProviderIrma PA-C: Miscellaneous Lab Soraida Plaza MA documented in this encounter [facility] 01-24-2023 Note HNO ID: [id number] Author: Alo Avina MD Service: ? Author Type: Physician Type: Progress Notes Filed: 01/24/2023 8:36 AM Note Text: Patient's home health 485 form / care plan for certification period 01/09/2023 to 03/09/2023 reviewed and signed. Relevant medical records were reviewed. No changes were indicated [facility] 01-24-2023 History of Presen t illness Narrative Patient's home health 485 form / care plan for certification period 01/09/2023 to 03/09/2023 reviewed and signed. Relevant medical records were reviewed. No changes were indicated documented in this encounter [facility] 01-07-2023 Miscellaneous Notes Left detailed message. Soraida Plaza MA [phone]. yes [facility] calling will you follow for start of nursing services? Please advise. documented in this encounter [facility] 12-27-2022 Miscellaneous Notes Noted. Soraida Plaza MA Radha returns call and message reviewed. Radha will have patient follow directions from endocrinology appointment yesterday and bring in BS readings to her office in two weeks as instructed. Radha reports she will also drop off a list to Dr. Avina just to have as she feels more comfortable keeping Dr. Avina in the loop. Bianca Wahl RN Left message for patient to contact office. Soraida Plaza MA Advise with seeing Endo I would follow their instructions. I was not aware he would be seeing them so soon. TC Bola Garcia is not snacking in the evening, if anything he is snacking before dinner, will cut out. They are walking the dog in the evening, he maybe has missed very few night. Appt w/Endo tomorrow, 12/26/2022. Radha will bring in blood sugar readings in 2 weeks. Luh Hamm LPN Left message for pt and pt's to contact office. Please see Dr Avina's message below. Rj Holcomb LPN Advise patient he needs to stop his evening snack since no longer going for walks since this is driving up his fasting blood sugars in the morning. Advise he needs to work on this and provide me with another set of blood sugar readings in two weeks with no longer eating a snack at night. If he wants a snack then he needs to get out and walk that evening for 20-30 to help lower his blood sugar from the snack or he should take 5 units of the insulin aspart U-100 (his pre-meal insulin) with the snack. Spoke to patient and he advised that after dinner he does occassionally tend to snack since he does not go out an walk anymore. Aware will send to pcp and be contacted if anything else advised Nimo Fagan Ma Let know his post lunch and post dinner blood sugars are good ( 88-150) but his fasting blood sugars are running high (133-160). See if he tends to eat any snacks after his sugars are checked two hrs after dinner? Patient's dropped off patient's sugar recordings. Please advise. Soraida Plaza MA documented in this encounter [facility] 12-26-2022 Note HNO ID: [id number] Author: Ishaan Fortune RN Service: ? Author Type: Registered Nurse Type: Progress Notes Filed: 12/26/2022 9:05 AM Note Text: DIABETES CARE AND EDUCATION VISIT Location: [place] Type of visit: In person individual PATIENT'S MAIN CONCERN TODAY: Dexcom G7 Support person present for education today: spouse Cognitive ability: Alert and oriented Motivation to learn: Interested Learning barriers identified by educator: none Method of instruction: written, verbal, demonstration, video , and computer The patient started the following personal CGM today: Dexcom G7 Patient-provided sensor expiration date: 02/05/24 Sensor insertion location: back of right upper arm Insertion performed by: nurse with patient and support person following Patient response to insertion: no redness/bleeding noted and patient denies discomfort. Is the sensor at least 2 inches away from any pump infusion sites? n/a (patient does not use an insulin pump) CGM linked to insulin pump: none-patient is not using an insulin pump -Rationale for CGM use -CGM maintenance -Sensor insertion: site selection and rotation, operation of insertion device, and attaching transmitter -Sensor start: pairing transmitter and sensor, starting sensor, and warm-up time -Display screen overview: sensor glucose reading, trend arrows, trend graph , and alert messages -System settings: high alert level set at 250 mg/dL and low alert level set at 70 mg/dL -Use of sensor glucose in treatment decisions: no fingerstick confirmation required -If symptoms do not match sensor glucose: check glucose with fingerstick and treat as needed based on fingerstick result -Calibration fingerstick minimum requirements: none - factory calibrated -Changing sensor every 10 days -Ending a sensor session: sensor/transmitter removal and disposal of sensor -Options for device upload, data review, and data sharing: Dexcom Clarity -Other topics taught: OK to shower/bathe, avoid hot tubs/saunas, remove sensor/transmitter for CT scans/MRIs, do not put system components through airport x-ray or full body scanners, and OK to take system through airport metal detectors and hand-wanding LEARNING RESPONSE: Monitoring glucose: Demonstrated understanding/competency today or at previous visit POSSIBLE FUTURE TOPICS: 1. DIABETES CARE AND EDUCATION PLAN: Individual follow-up Time Spent (Minutes): 30 This visit note will be communicated to the healthcare provider via access to shared medical record. SIGNATURE: Ishaan Fortune RN PATIENT NAME: Bola Gale DATE: December 26, 2022 TIME: 8:30 AM [facility] 12-26-2022 Note HNO ID: [id number] Author: Claribel Cope APRN.ISAIAH Service: ? Author Type: Nurse Practitioner Type: Progress Notes Filed: 12/26/2022 8:31 AM Note Text: NEW CONSULT OFFICE PROGRESS NOTE Reason for Consultation: DM Type 2 Referring Physician: SELF My final recommendations will be communicated back to the requesting physician by way of shared Medical record or letter via [place] mail. HISTORY OF PRESENT ILLNESS; Bola Gale is a 67 year old MALE is presenting as a new patient to me regarding DM Type 2. He was initially diagnosed with diabetes in 1997. Sts PCP recently Hx of dialysis ~ 2 years Patient sts kidney issues are not secondary to his diabetes [place] it was related to medication overdose (BP meds) Hx of Kidney tx 10/22/2019 Insulin recently dose changed Patient is reporting drops after meals, requiring him to eat candy or other to bring sugars up He does have a family history of diabetes mellitus in his Mother, Father, Grandparents, and Siblings. The patient reports the following microvascular complications: retinopathy and peripheral neuropathy. Bola has no know macrovascular complications of diabetes.. DM Education yes Knows how to carb count Yes - pt makes all meals, limits carbs DIETARY HISTORY: Breakfast: yogurt w fruit (1/2 banana) decaf coffee sometimes with some toast 1/2 piece Lunch sandwich w cheese (grilled cheese) w fruit (canned fruit, water) several chips Dinner pork roast OR other meat with vegetable/starch Snacks candy OR pretzels, but seldom snacks Drinks water, decaf coffee, decaf teat Exercise: walking, steps ~ 9000 (tries for) but gets at least 4000 daily CURRENT DM MEDS NOVOLOG 06-18-12 LANTUS 25 units daily Previously on METFORMIN - sts allergic, itching (on allergy list) SMBG Type of Monitor: Other Frequency of Monitoring: times a day BG Values: Breakfast: 130-140 Lunch: didn't check Dinner: 88 Bed-time: 60-97 Values over past week: Highest ; Lowest Hypoglycemia: no Diet: Counts Carbs Exercise: walking DM REVIEW OF SYSTEMS Last Eye Exam : scheduled January, q 4 months, injections (retinopathy) Last Podiatry Exam: declined Cardiorespiratory: negative, denies chest pain, pressure Claudication: no Dyslipidemia: Yes, controlled on medication High Blood Pressure: Yes, controlled on medication CURRENT LABS Component Ref Range AND Units 2 wk ago (11/28/22) 7 mo ago (05/16/22) 7 mo ago (05/16/22) 1 yr ago (05/18/21) 1 yr ago (05/18/21) 2 yr ago (08/03/20) 3 yr ago (06/17/19) Hemoglobin A1C 3.8 - 5.6 % 8.0 Abnormal 8.7 Abnormal R 8.7 Abnormal R 8.3 Abnormal R 8.3 Abnormal R 5.7 Abnormal R PAST MEDICAL HISTORY Diagnosis Date Advance directive discussed with patient 11/16/2021 Discussed 11/2021 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 07/12/2017 BMI 32.0-32.9,adult BPH (benign prostatic hyperplasia) 03/06/2012 Chronic pain of right knee 12/05/2018 Diabetes mellitus type 2 with neurological manifestations (HCC) 02/13/2013 Diabetic eye exam (HCC) 10/09/2021 Last done 10/09/2021 [facility] Diabetic ulcer of toe of right foot associated with type 2 diabetes mellitus, limited to breakdown of skin (HCC) 12/05/2018 Erectile dysfunction 02/24/2010 Essential hypertension, benign Essential tremor 09/20/2016 Ex-smoker 05/17/2021 Fistula 12/20/2017 left forearm radial to cephalic ateriovenous Hearing loss 09/10/2012 Hyperlipidemia, mixed Living will in place 11/16/2021 JC Montelongo (son) Medicare annual wellness visit, subsequent 11/16/2021 Medicare Part B: 01/05/2018, Last done: 11/16/2021 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) 05/17/2021 Osteoarthritis of left knee 02/16/2011 Personal history of nicotine dependence Renal transplant recipient 11/23/2019 Restless leg syndrome 12/05/2018 Right rotator cuff tear 11/16/2021 Treated with PHYSICAL THERAPY. 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-R. Cebul--Repeat in 3 years-2020 FISTULA Left 09/11/2017 Radiocephalic arteriovenous fistula creation--[facility]--R. Cebul PAST SURGICAL HISTORY OF 06/07/15 right grade II Open distal radius and ulnar shaft fracture PROSTATE SURGERY HX REM LESION TRUNK,ARM, LEG <0.5 CM 05/07/07 Exc. piero cyst upper mid back FAMILY HISTORY Problem Relation Age o (more content not included)... [facility] 12-26-2022 History of Presen t illness Narrative DIABETES CARE AND EDUCATION VISIT Location: [place] Type of visit: In person individual PATIENT'S MAIN CONCERN TODAY: Dexcom G7 Support person present for education today: spouse Cognitive ability: Alert and oriented Motivation to learn: Interested Learning barriers identified by educator: none Method of instruction: written, verbal, demonstration, video , and computer The patient started the following personal CGM today: Dexcom G7 Patient-provided sensor expiration date: 02/05/24 Sensor insertion location: back of right upper arm Insertion performed by: nurse with patient and support person following Patient response to insertion: no redness/bleeding noted and patient denies discomfort. Is the sensor at least 2 inches away from any pump infusion sites? n/a (patient does not use an insulin pump) CGM linked to insulin pump: none-patient is not using an insulin pump -Rationale for CGM use -CGM maintenance -Sensor insertion: site selection and rotation, operation of insertion device, and attaching transmitter -Sensor start: pairing transmitter and sensor, starting sensor, and warm-up time -Display screen overview: sensor glucose reading, trend arrows, trend graph , and alert messages -System settings: high alert level set at 250 mg/dL and low alert level set at 70 mg/dL -Use of sensor glucose in treatment decisions: no fingerstick confirmation required -If symptoms do not match sensor glucose: check glucose with fingerstick and treat as needed based on fingerstick result -Calibration fingerstick minimum requirements: none - factory calibrated -Changing sensor every 10 days -Ending a sensor session: sensor/transmitter removal and disposal of sensor -Options for device upload, data review, and data sharing: Dexcom Clarity -Other topics taught: OK to shower/bathe, avoid hot tubs/saunas, remove sensor/transmitter for CT scans/MRIs, do not put system components through airport x-ray or full body scanners, and OK to take system through airport metal detectors and hand-wanding LEARNING RESPONSE: Monitoring glucose: Demonstrated understanding/competency today or at previous visit POSSIBLE FUTURE TOPICS: 1. DIABETES CARE AND EDUCATION PLAN: Individual follow-up Time Spent (Minutes): 30 This visit note will be communicated to the healthcare provider via access to shared medical record. SIGNATURE: Ishaan Fortune RN PATIENT NAME: Bola Gale DATE: December 26, 2022 TIME: 8:30 AM documented in this encounter [facility] 12-26-2022 Instructions Claribel Cope APRN.CNP - 12/26/2022 8:21 AM EDT LANTUS Inject 25 units once daily NOVOLOG Inject 8 units with meals PLUS SLIDING SCALE #1 Sliding Scale Insulin Dosing PRE MEAL BLOOD SUGAR ONLY. Sliding Scale 1 (1 unit for every 50 mg/dL > 150 mg/dL) SUPPLEMENTAL INSULIN If Blood Glucose (mg/dL) is < 150 Give 0 units 151-200 Give 1 unit 201-250 Give 2 units 251-300 Give 3 units 301-350 Give 4 units 351-400 Give 5 units >400 Give 6 units, call physician if blood glucose does not improve. documented in this encounter [facility] 12-26-2022 History of Presen t illness Narrative NEW CONSULT OFFICE PROGRESS NOTE Reason for Consultation: DM Type 2 Referring Physician: SELF My final recommendations will be communicated back to the requesting physician by way of shared Medical record or letter via [place] mail. HISTORY OF PRESENT ILLNESS; Bola Gale is a 67 year old MALE is presenting as a new patient to me regarding DM Type 2. He was initially diagnosed with diabetes in 1997. Sts PCP recently Hx of dialysis ~ 2 years Patient sts kidney issues are not secondary to his diabetes [place] it was related to medication overdose (BP meds) Hx of Kidney tx 10/22/2019 Insulin recently dose changed Patient is reporting drops after meals, requiring him to eat candy or other to bring sugars up He does have a family history of diabetes mellitus in his Mother, Father, Grandparents, and Siblings. The patient reports the following microvascular complications: retinopathy and peripheral neuropathy. Bola has no know macrovascular complications of diabetes.. DM Education yes Knows how to carb count Yes - pt makes all meals, limits carbs DIETARY HISTORY: Breakfast: yogurt w fruit (1/2 banana) decaf coffee sometimes with some toast 1/2 piece Lunch sandwich w cheese (grilled cheese) w fruit (canned fruit, water) several chips Dinner pork roast OR other meat with vegetable/starch Snacks candy OR pretzels, but seldom snacks Drinks water, decaf coffee, decaf teat Exercise: walking, steps ~ 9000 (tries for) but gets at least 4000 daily CURRENT DM MEDS NOVOLOG 12-12-12 LANTUS 25 units daily Previously on METFORMIN - sts allergic, itching (on allergy list) SMBG Type of Monitor: Other Frequency of Monitoring: times a day BG Values: Breakfast: 130-140 Lunch: didn't check Dinner: 88 Bed-time: 60-97 Values over past week: Highest ; Lowest Hypoglycemia: no Diet: Counts Carbs Exercise: walking DM REVIEW OF SYSTEMS Last Eye Exam : scheduled January, q 4 months, injections (retinopathy) Last Podiatry Exam: declined Cardiorespiratory: negative, denies chest pain, pressure Claudication: no Dyslipidemia: Yes, controlled on medication High Blood Pressure: Yes, controlled on medication CURRENT LABS Component Ref Range & Units 2 wk ago (11/28/22) 7 mo ago (05/16/22) 7 mo ago (05/16/22) 1 yr ago (05/18/21) 1 yr ago (05/18/21) 2 yr ago (08/03/20) 3 yr ago (06/17/19) Hemoglobin A1C 3.8 - 5.6 % 8.0 Abnormal 8.7 Abnormal R 8.7 Abnormal R 8.3 Abnormal R 8.3 Abnormal R 5.7 Abnormal R PAST MEDICAL HISTORY Diagnosis Date Advance directive discussed with patient 11/16/2021 Discussed 11/2021 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 07/12/2017 BMI 32.0-32.9,adult BPH (benign prostatic hyperplasia) 03/06/2012 Chronic pain of right knee 12/05/2018 Diabetes mellitus type 2 with neurological manifestations ([facility]) 02/13/2013 Diabetic eye exam ([facility]) 10/09/2021 Last done 10/09/2021 [facility] Diabetic ulcer of toe of right foot associated with type 2 diabetes mellitus, limited to breakdown of skin ([facility]) 12/05/2018 Erectile dysfunction 02/24/2010 Essential hypertension, benign Essential tremor 09/20/2016 Ex-smoker 05/17/2021 Fistula 12/20/2017 left forearm radial to cephalic ateriovenous Hearing loss 09/10/2012 Hyperlipidemia, mixed Living will in place 11/16/2021 DPA; Reginald (son) Medicare annual wellness visit, subsequent 11/16/2021 Medicare Part B: 01/05/2018, Last done: 11/16/2021 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 ([facility]) 05/17/2021 Osteoarthritis of left knee 02/16/2011 Personal history of nicotine dependence Renal transplant recipient 11/23/2019 Restless leg syndrome 12/05/2018 Right rotator cuff tear 11/16/2021 Treated with PHYSICAL THERAPY. 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-Steph Espino--Repeat in 3 years-2020 FISTULA Left 09/11/2017 Radiocephalic arteriovenous fistula creation--[facility]--Steph Espino PAST SURGICAL HISTORY OF 06/07/15 right grade II Open distal radius and ulnar shaft fracture PROSTATE SURGERY HX REM LESION TRUNK,ARM, LEG <0.5 CM 05/07/07 Exc. piero cyst upper mid back FAMILY HISTORY Problem Relation Age of Onset Diabetes Mother Hypertension Mother Heart Mother [place] other (lung cancer) Mother bone metastasis Diabetes Father other (BPH) Father other (pancreatic cancer) Father Diabetes Brother Diabetes Brother Social History Tobacco Use Smoking status: Former Packs/day: 1.00 Years: 6.00 Pack years: 6.00 Types: Cigarettes Smokeless tobacco: Never Tobacco comments: quit 1969' Substance Use Topics Alcohol use: Yes Comment: RARE Drug use: No Current Outpatient Medications Medication Sig insulin aspart U-100 (NOVOLOG FLEXPEN U-100 INSULIN) 100 unit/mL (3 mL) 12 units subcutaneously three times daily with meals. insulin glargine (LANTUS SOLOSTAR U-100 INSULIN) 100 unit/mL (3 mL) INJECT 25 Units at bedtime Insulin Pine Top, Disposable, (BD ULTRAFINE III MINI PEN) 31 gauge x 3/16 use four times/day NIFEdipine ER (PROCARDIA XL) 30 mg 24 hr tablet Take 1 tablet by mouth once daily. rosuvastatin (CRESTOR) 10 mg tablet Take 1 tablet by mouth once daily. finasteride (PROSCAR) 5 mg tablet Take 1 tablet by mouth once daily. Cholecalciferol, Vitamin D3, 50 mcg (2,000 unit) cap Take by mouth. OTC - take one tablet daily labetalol (TRANDATE) 100 mg tablet Take 1.5 tablets by mouth twice daily. tacrolimus ER (ENVARSUS XR) 1 mg tablet Take 1 tablet by mouth once daily. triamcinolone acetonide (KENALOG) 0.1 % cream Apply 1 application to affected area once daily. Apply to affected area as needed for itching. Location: lower legs mycophenolate sodium DR (MYFORTIC) 360 mg TbEC Take 720 mg by mouth twice daily. aspirin, enteric coated (ASPIRIN, ENTERIC COATED) 81 mg EC tablet Take 81 mg by mouth once daily. blood sugar diagnostic (ONETOUCH ULTRA TEST) test strip Test blood sugar(s) two times daily. Dx: 250.02. Insulin: No Lancets (ONE TOUCH DELICA) lancets Test blood sugar(s) 4 daily. Dx: 250.02 Insulin: Yes No current facility-administered medications for this visit. ALLERGIES Allergen Reactions Bactrim [Sulfametho* Hives Metformin Rash Lipitor [Atorvastat* Other: See Comments myalgia Norvasc [Amlodipine* Swelling REVIEW OF SYSTEMS - POSITIVES IN BOLD GENERAL:No weight loss, malaise or fevers HEENT:Negative for frequent or significant headaches, No changes in hearing or vision, no nose bleeds or other nasal problems NECK:Negative for lumps, goiter, pain and significant neck swelling RESPIRATORY: Negative for cough, hemoptysis, wheezing, COPD, dyspnea or shortness of breath CARDIOVASCULAR: Negative for chest pain, leg swelling, hypertension, CHF or palpitations PHYSICAL EXAMINATION: BP (P) 124/62 (BP Site: Right Arm, BP Position: Sitting, BP Cuff Size: Large Adult) Pulse (P) 66 Wt 87.5 kg (193 lb) BMI 27.30 kg/m General appearance: Well appearing, alert, in no acute distress, well-hydrated, well nourished. Skin: Skin color, texture, turgor normal, no suspicious rashes or lesions Head: Normocephalic, no masses, lesions, tenderness or abnormalities Eyes: TIFF Neck: thyroid symmetric to inspection Acanthosis: none noted Extremities: Edema: none Neuro: Negative., Oriented X 3 ASSESSMENT: (E11.8) Type II diabetes mellitus with manifestations (HCC) (primary encounter diagnosis) Comment: RECOMMEND THE FOLLOWING DEXCOM CGM to assist with continuous monitoring, lewis with multiple insulin injections. Will reduce meal base and add SS to resolve issues of dropping BG after meals. CONSULT TO DM EDUCATION LANTUS Inject 25 units once daily NOVOLOG Inject 8 units with meals PLUS SLIDING SCALE #1 Sliding Scale Insulin Dosing PRE MEAL BLOOD SUGAR ONLY. Sliding Scale 1 (1 unit for every 50 mg/dL > 150 mg/dL) SUPPLEMENTAL INSULIN If Blood Glucose (mg/dL) is < 150 Give 0 units 151-200 Give 1 unit 201-250 Give 2 units 251-300 Give 3 units 301-350 Give 4 units 351-400 Give 5 units >400 Give 6 units, call physician if blood glucose does not improve. Recommended diet: Low carbohydrate and Low saturated fat, low simple sugar, high fiber diet Exercise minimally 150 minutes per week, increase as tolerated. Adequate hydration - 1/2 body wgt in oz of water daily, unless fluid restriction applies. I instructed the patient to monitor blood sugars 4 times per day If blood sugars are persistently high or low, to call our office. Patient to continue to follow up with his PCP and with other consultants regarding his other medical problems. Plan: COMP METABOLIC PANEL, LIPID PANEL, NONFASTING, ALBUMIN/CREAT RATIO RND UR, HGB A1C Claribel Cope CNP documented in this encounter [facility] 12-25-2022 Miscellaneous Notes Patient has been identified by name and date of : Yes, Provider Dr. Avina Date 12/25/22 Time 8:20 am Spouse phones for refill(s): Requested Prescriptions Pending Prescriptions Disp Refills labetalol (TRANDATE) 100 mg tablet 270 tablet 1 Sig: Take 1.5 tablets by mouth twice daily. Date of last office visit in primary care: 12/06/22 next apt 06/19/23 Last 2 Encounter Wt Readings: Date: Wt: 12/06/2022 87.5 kg (193 lb) 06/28/2022 88 kg (194 lb) Previous labs/tests for medication: Not applicable Thank you. Heather Clifton LPN documented in this encounter [facility] 12-06-2022 Note HNO ID: [id number] Author: Alo Avina MD Service: ? Author Type: Physician Type: Progress Notes Filed: 12/06/2022 3:51 PM Note Text: Chief Complaint Patient presents with: Follow Up: routine HPI Bola Gale is a 67 year old male who presents here today for Chronic Medical Conditions. Office visit - medicare wellness Last eye exam: november with Dr. Peoples at [facility] Patient with Hx of diabetes with retinopathy, Neuropathy due to diabetes, Hyperlipidemia, HTN, Anemia, s/p renal transplant, Vit D def, essential tremor, RLS, BPH, ex-smoker as well as those reviewed and addressed below and in ROS. Patient has been doing well. No new issues or concerns. Patient has been taking 30 of the lantus daily and 16 units of the Novolog twice a day. FBS's 110-140. Patient has had maybe 2 episodes of a low BS's in the evening before bed. Patient did not have BS checked but was given a glucose tab and his symptom resolved. Walking daily for exercise and typically gets 4,000-8,000 steps a day. Office visit - 6 months 05/2023 Patient with Hx of diabetes with retinopathy, Neuropathy due to diabetes, Hyperlipidemia, HTN, Anemia, s/p renal transplant, Vit D def, essential tremor, RLS, BPH, ex-smoker as well as those reviewed and addressed below and in ROS. Patient has been doing well. No new issues or concerns. He took the Lantus at 30 units a day for a few weeks but then his sugars were running 80's-120 and felt dizzy at times and cut back to the 25 units a day. He is still doing the short acting insulin at 16 units twice a day. Past medical history, appointments, medications, allergies reviewed. Previous Medical History PAST MEDICAL HISTORY Diagnosis Date Advance directive discussed with patient 11/16/2021 Discussed 11/2021 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 07/12/2017 BMI 32.0-32.9,adult BPH (benign prostatic hyperplasia) 03/06/2012 Chronic pain of right knee 12/05/2018 Diabetes mellitus type 2 with neurological manifestations (HCC) 02/13/2013 Diabetic eye exam (HCC) 10/09/2021 Last done 10/09/2021 [facility] Diabetic ulcer of toe of right foot associated with type 2 diabetes mellitus, limited to breakdown of skin (HCC) 12/05/2018 Erectile dysfunction 02/24/2010 Essential hypertension, benign Essential tremor 09/20/2016 Ex-smoker 05/17/2021 Fistula 12/20/2017 left forearm radial to cephalic ateriovenous Hearing loss 09/10/2012 Hyperlipidemia, mixed Living will in place 11/16/2021 DPA; Reginald (son) Medicare annual wellness visit, subsequent 11/16/2021 Medicare Part B: 01/05/2018, Last done: 11/16/2021 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) 05/17/2021 Osteoarthritis of left knee 02/16/2011 Personal history of nicotine dependence Renal transplant recipient 11/23/2019 Restless leg syndrome 12/05/2018 Right rotator cuff tear 11/16/2021 Treated with PHYSICAL THERAPY. 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-Steph Espino--Repeat in 3 years-2020 FISTULA Left 09/11/2017 Radiocephalic arteriovenous fistula creation--[facility]--Steph Espino PAST SURGICAL HISTORY OF 06/07/15 right grade II Open distal radius and ulnar shaft fracture PROSTATE SURGERY HX REM LESION TRUNK,ARM, LEG <0.5 CM 05/07/07 Exc. piero cyst upper mid back Family History FAMILY HISTORY Problem Relation Age of Onset Diabetes Mother Hypertension Mother Heart Mother [place] other (lung cancer) Mother bone metastasis Diabetes Father other (BPH) Father other (pancreatic cancer) Father Diabetes Brother Diabetes Brother Patient Allergies ALLERGIES Allergen Reactions Bactrim [Sulfametho* Hives Metformin Rash Lipitor [Atorvastat* Other: See Comments myalgia Norvasc [Amlodipine* Swelling Current Medications Current Outpatient Medications on File Prior to Visit Medication Sig Insulin Pine Top, Disposable, (BD ULTRAFINE III MINI PEN) 31 gauge x 16 use four times/day NIFEdipine ER (PROCARDIA XL) 30 mg 24 hr tablet Take 1 tablet by mouth once daily. rosuvastatin (CRESTOR) 10 mg tablet Take 1 tablet by mouth once daily. finasteride (PROSCAR) 5 mg tablet Take 1 tablet by mouth once daily. Cholecalciferol, Vitamin D3, (VITAMIN D-3) 50 mcg (2,000 unit) cap Take by mouth. OTC - take one tablet (more content not included)... [facility] 12-06-2022 Instructions Alo Avina MD - 12/06/2022 8:54 AM EDT Decrease his lantus to 25 units a day. Change the Novolog to 12 units before each meal. Check fasting blood sugar daily and alternate two hrs after lunch and dinner every other day. Bring in readings in 2 weeks. Please get labs done on or after 05/24/2023 prior to your next visit. Please bring in copies of your power of employee benefits attorney for health care and living will. documented in this encounter [facility] 12-06-2022 History of Presen t illness Narrative Chief Complaint Patient presents with: Follow Up: routine HPI Bola Gale is a 67 year old male who presents here today for Chronic Medical Conditions. Office visit - medicare wellness Last eye exam: november with Dr. Peoples at [facility] Patient with Hx of diabetes with retinopathy, Neuropathy due to diabetes, Hyperlipidemia, HTN, Anemia, s/p renal transplant, Vit D def, essential tremor, RLS, BPH, ex-smoker as well as those reviewed and addressed below and in ROS. Patient has been doing well. No new issues or concerns. Patient has been taking 30 of the lantus daily and 16 units of the Novolog twice a day. FBS's 110-140. Patient has had maybe 2 episodes of a low BS's in the evening before bed. Patient did not have BS checked but was given a glucose tab and his symptom resolved. Walking daily for exercise and typically gets 4,000-8,000 steps a day. Office visit - 6 months 05/2023 Patient with Hx of diabetes with retinopathy, Neuropathy due to diabetes, Hyperlipidemia, HTN, Anemia, s/p renal transplant, Vit D def, essential tremor, RLS, BPH, ex-smoker as well as those reviewed and addressed below and in ROS. Patient has been doing well. No new issues or concerns. He took the Lantus at 30 units a day for a few weeks but then his sugars were running 80's-120 and felt dizzy at times and cut back to the 25 units a day. He is still doing the short acting insulin at 16 units twice a day. Past medical history, appointments, medications, allergies reviewed. Previous Medical History PAST MEDICAL HISTORY Diagnosis Date Advance directive discussed with patient 11/16/2021 Discussed 11/2021 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 07/12/2017 BMI 32.0-32.9,adult BPH (benign prostatic hyperplasia) 03/06/2012 Chronic pain of right knee 12/05/2018 Diabetes mellitus type 2 with neurological manifestations ([facility]) 02/13/2013 Diabetic eye exam ([facility]) 10/09/2021 Last done 10/09/2021 [facility] Diabetic ulcer of toe of right foot associated with type 2 diabetes mellitus, limited to breakdown of skin ([facility]) 12/05/2018 Erectile dysfunction 02/24/2010 Essential hypertension, benign Essential tremor 09/20/2016 Ex-smoker 05/17/2021 Fistula 12/20/2017 left forearm radial to cephalic ateriovenous Hearing loss 09/10/2012 Hyperlipidemia, mixed Living will in place 11/16/2021 JC Montelongo (son) Medicare annual wellness visit, subsequent 11/16/2021 Medicare Part B: 01/05/2018, Last done: 11/16/2021 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 ([facility]) 05/17/2021 Osteoarthritis of left knee 02/16/2011 Personal history of nicotine dependence Renal transplant recipient 11/23/2019 Restless leg syndrome 12/05/2018 Right rotator cuff tear 11/16/2021 Treated with PHYSICAL THERAPY. 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--Steph Espino PAST SURGICAL HISTORY OF 06/07/15 right grade II Open distal radius and ulnar shaft fracture PROSTATE SURGERY HX REM LESION TRUNK,ARM, LEG <0.5 CM 05/07/07 Exc. piero cyst upper mid back Family History FAMILY HISTORY Problem Relation Age of Onset Diabetes Mother Hypertension Mother Heart Mother [place] other (lung cancer) Mother bone metastasis Diabetes Father other (BPH) Father other (pancreatic cancer) Father Diabetes Brother Diabetes Brother Patient Allergies ALLERGIES Allergen Reactions Bactrim [Sulfametho* Hives Metformin Rash Lipitor [Atorvastat* Other: See Comments myalgia Norvasc [Amlodipine* Swelling Current Medications Current Outpatient Medications on File Prior to Visit Medication Sig Insulin Pine Top, Disposable, (BD ULTRAFINE III MINI PEN) 31 gauge x 3/16 use four times/day NIFEdipine ER (PROCARDIA XL) 30 mg 24 hr tablet Take 1 tablet by mouth once daily. rosuvastatin (CRESTOR) 10 mg tablet Take 1 tablet by mouth once daily. finasteride (PROSCAR) 5 mg tablet Take 1 tablet by mouth once daily. Cholecalciferol, Vitamin D3, (VITAMIN D-3) 50 mcg (2,000 unit) cap Take by mouth. OTC - take one tablet daily insulin aspart U-100 (NOVOLOG FLEXPEN U-100 INSULIN) 100 unit/mL (3 mL) 16 units subcutaneously twice daily with meals. insulin glargine (LANTUS SOLOSTAR U-100 INSULIN) 100 unit/mL (3 mL) INJECT 30 Units at bedtime labetalol (TRANDATE) 100 mg tablet Take 1.5 tablets by mouth twice daily. tacrolimus ER (ENVARSUS XR) 1 mg tablet Take 1 tablet by mouth once daily. triamcinolone acetonide (KENALOG) 0.1 % cream Apply 1 application to affected area once daily. Apply to affected area as needed for itching. Location: lower legs mycophenolate sodium DR (MYFORTIC) 360 mg TbEC Take 720 mg by mouth twice daily. aspirin, enteric coated (ASPIRIN, ENTERIC COATED) 81 mg EC tablet Take 81 mg by mouth once daily. blood sugar diagnostic (Drawn to ScaleTOUCH ULTRA TEST) test strip Test blood sugar(s) two times daily. Dx: 250.02. Insulin: No Lancets (ONE TOUCH DELICA) lancets Test blood sugar(s) 4 daily. Dx: 250.02 Insulin: Yes No current facility-administered medications on file prior to visit. Social History Social History Tobacco Use Smoking status: Former Packs/day: 1.00 Years: 6.00 Pack years: 6.00 Types: Cigarettes Smokeless tobacco: Never Tobacco comments: quit Substance Use Topics Alcohol use: Yes Comment: RARE Drug use: No Review of Symptoms REVIEW OF SYSTEMS GENERAL: No weight loss, malaise or fevers NECK: Negative for lumps, goiter, pain and significant neck swelling RESPIRATORY: Negative for cough, hemoptysis, wheezing, COPD, dyspnea or shortness of breath CARDIOVASCULAR: Negative for chest pain, leg swelling, hypertension, CHF or palpitations GI: No nausea, vomiting, or diarrhea and No heartburn or reflux symptoms : No history of dysuria, frequency , urgency or blood ENDOCRINE: See HPI NEURO: No history of headaches, syncope, paralysis, seizures or tremors EXAM: BP 146/70 (BP Site: Right Arm, BP Position: Sitting, BP Cuff Size: Regular Adult) Pulse 60 Resp 14 Ht 179.1 cm (5' 10.5 ) Wt 87.5 kg (193 lb) BMI 27.30 kg/m BP 138/58 Pulse 60 Resp 14 Ht 179.1 cm (5' 10.5 ) Wt 87.5 kg (193 lb) BMI 27.30 kg/m Last 5 Encounter Wt Readings: Date: Wt: 12/06/2022 87.5 kg (193 lb) 06/28/2022 88 kg (194 lb) 05/30/2022 87.1 kg (192 lb) 11/16/2021 88 kg (194 lb) 05/17/2021 86.6 kg (191 lb) General Appearance: Well appearing, alert, in no acute distress, well-hydrated, well nourished. and Overweight. Eyes: Anicteric sclera. Pupils are equally round and reactive to light. Extraocular movements are intact. . Neck: Supple, no adenopathy; thyroid symmetric, normal size, no bruits. Lungs: Lungs clear to auscultation. No wheezing, rhonchi, rales.. Heart: RRR without murmur, gallop, or rubs. No ectopy. Abdomen: Normal abdominal exam, Abdomen soft, non-tender. Bowel sounds normal. No masses, organomegaly. Extremities: No deformities, edema, skin discoloration, Good capillary refill. . Musculoskeletal: Muscular strength intact. Peripheral Pulses: Normal. Neurologic: Gait normal. Sensation to light touch and crainal nerves 2-12 intact.. Health Maintenance List SERUM CREATININE Never done BP CONTROLLED (<130/80) due on 05/17/2022 ADVANCE DIRECTIVE DISCUSSION due on 07/08/2022 DEPRESSION ASSESSMENT due on 07/08/2022 DILATED RETINAL EXAM due on 10/09/2022 DIABETIC FOOT EXAM due on 11/16/2022 HBA1C due on 02/28/2023 LDL CHOLESTEROL due on 05/16/2023 ANNUAL PCP TEAM CHRONIC DISEASE VISIT due on 06/28/2023 PROSTATE CANCER SCREENING DISCUSSION due on 06/10/2024 DTAP,TDAP,TD(5 - Td or Tdap) due on 01/24/2026 COLORECTAL CANCER SCREENING due on 11/03/2027 ABDOMINAL AORTIC ANEURYSM SCREENING Completed INFLUENZA Completed HEPATITIS C SCREENING Completed SHINGRIX VACCINE Completed COVID-19 VACCINE Completed PNEUMOCOCCAL: 65+ Completed HPV VACCINE Aged Out URINE ALBUMIN:CREATININE RATIO Discontinued Data reviewed Component Latest Ref Rng & Units 05/16/2022 05/16/2022 11/28/2022 12:00 AM 12:00 AM WBC 3.4 - 10.8 K/uL 8.0 8.3 RBC 4.14 - 5.80 M/uL 4.65 Hemoglobin 12.6 - 17.7 g/dL 13.9 13 Hematocrit 37.5 - 51.0 % 40.9 41.1 MCV 79 - 97 fL 88.4 MCH 26.6 - 33 Pg 28 MCHC 31.5 - 35.7 g/dL 31.6 RDW 12.3 - 15.4 % 12.8 Platelet Count 150 - 379 k/uL 229 272 Neutrophil % % 70.2 Lymphocyte % % 17.9 Monocyte % % 9.6 Eosinophil % % 1.4 Basophil % % 0.7 NEUTROPHILS ABSOLUTE 1.4 - 7.0 k/uL 5.8 LYMPHS ABSOLUTE 0.7 - 3.1 k/uL 1.49 NA 136 - 145 mmol/L 145 K 3.5 - 5.1 mmol/L 4.1 Chloride 98 - 107 MEQ/L 108 (A) 114 (A) CO2 21 - 32 MEQ/L 22 Glucose 74 - 106 MG/DL 115 (A) 111 (A) BUN 7 - 18 MG/DL 14 Creatinine 0.6 - 1.3 MG/DL 1.02 1.07 GFR mL/MIN 73 GFR AFR AMER mL/MIN 89 Total Protein 6.4 - 8.2 gm/dL 7.0 Albumin 3.2 - 4.6 gm/dL 3.8 Calcium 8.5 - 10.1 mg/dL 9.1 8.9 Bili Total 0.2 - 1 mg/dL 0.4 AST 8 - 37 U/L 19 ALT (SGPT) 12 - 78 U/L 19 Alk Phos Total 45 - 117 U/L 55 Sodium 136 - 145 MEQ/L 141 Potassium 3.5 - 5.1 MEQ/L 3.7 BICARBONATE 26 Urea Nitrogen 6 - 20 mg/dL 14 Magnesium 1.7 Phosphorus 3.7 Cholesterol, Total 200 173 174 Triglyceride 150 142 116 HDL CHOLESTEROL 40 44 43 LDL CHOLESTEROL 100 101 (A) 108 (A) Microalbumin, Random urine 66 Creatinine Urine 138 Albumin/Creat Ratio 30 47.8 (A) Hemoglobin A1C 3.8 - 5.6 % 8.7 (A) 8.7 (A) 8.0 (A) PSA. 0.0 - 4.0 2.37 VITAMIN D 31 - 80 ng/mL 48.8 A/P ASSESSMENT/PLAN: 1. 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 disease, with long-term current use of insulin ([facility]) - ICD9: 250.40, 585.2, V58.67, ICD10: E11.22, N18.2, Z79.4 (primary diagnosis) - Uncontrolled - Improving control - Continue current medications - Blood glucose monitoring on a twice daily schedule - Referral to Endocrinology for diabetes management - Counseled on healthy diet and regular exercise - Discussed need for and benefit of weight loss. BMI 27.30 kg/(m^2) - will adjust lantus to 25 units a day and his novolog to 12 units three times a day. - CONSULT TO ENDOCRINOLOGY for management of 2. 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 Diabetes mellitus type 2 with neurological manifestations (HCC) - ICD9: 250.60, ICD10: E11.49 As above - CONSULT TO ENDOCRINOLOGY 5. Diabetic eye exam ([facility]) - ICD9: V72.0, 250.00, ICD10: Z01.00, E11.9 Will get up dated report 6. 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) - ICD9: 249.60, 357.2, ICD10: E13.40 - stable no changes. 7. Essential hypertension, benign - ICD9: 401.1, ICD10: I10 - Controlled - Continue current medications - Recommend home blood pressure monitoring, to bring results to next visit - Encouraged sodium restriction, DASH or Mediterranean diet - Recommend regular aerobic exercise 8. Hyperlipidemia, mixed - ICD9: 272.2, ICD10: E78.2 - Controlled - Continue current medications - Counseled on healthy diet and regular exercise 9. 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 - ICD9: 285.21, 585.2, ICD10: N18.2, D63.1 - recent labs were normal. 10. Vitamin D deficiency - ICD9: 268.9, ICD10: E55.9 - controlled with replacement 11. Restless leg syndrome - ICD9: 333.94, ICD10: G25.81 - stable no issues. Will monitor. 12. Benign prostatic hyperplasia, unspecified whether lower urinary tract symptoms present - ICD9: 600.00, ICD10: N40.0 - stable no changes. 13. Advance directive discussed with patient - ICD9: V65.49, ICD10: Z71.89 - patient needs to bring in copies 14. Renal transplant recipient - ICD9: V42.0, ICD10: Z94.0 - management per renal Requested Prescriptions Signed Prescriptions Disp Refills insulin aspart U-100 (NOVOLOG FLEXPEN U-100 INSULIN) 100 unit/mL (3 mL) 5 Each 5 Si units subcutaneously three times daily with meals. insulin glargine (LANTUS SOLOSTAR U-100 INSULIN) 100 unit/mL (3 mL) 5 Each 5 Sig: INJECT 25 Units at bedtime F/u 6 months extensive check Lipid, CMP, CBC, A1c, urine micro albumin I spent a total of 51 minutes on the date of the service which included preparing to see the patient, [id number] patient care, completing clinical documentation, performing a medically appropriate examination, counseling and educating the patient/family/caregiver and ordering medications, tests, or procedures. Alo Avina MD documented in this encounter [facility] 11-28-2022 Note HNO ID: [id number] Author: Rj Holcomb LPN Service: ? Author Type: ? Type: Progress Notes Filed: 11/29/2022 9:38 PM Note Text: Scan on 11/28/2022 9:11 AM by External Provider, PAFidelinaC: Chemistry [facility] 11-20-2022 Miscellaneous Notes Orders faxed and patient was notified Nimo Fagan Ma Orders placed. Pt asking if pcp wants labs prior to appt on 12/06. If ordering labs they will need to be faxed to [facility]. Please call pt and advise documented in this encounter [facility] 11-05-2022 Miscellaneous Notes Patient has been identified by name and date of : Yes Requested Prescriptions Pending Prescriptions Disp Refills NIFEdipine ER (PROCARDIA XL) 30 mg 24 hr tablet 90 tablet 3 Sig: Take 1 tablet by mouth once daily. RX INSTRUCTIONS: Patient aware RX will be sent to pharmacy. No need to notify patient. RACHEL Abreu 06/2022 Nov 12/2022 Last refill; 05/2022 Patient has been identified by name and date of : Yes Requested Prescriptions Pending Prescriptions Disp Refills NIFEdipine ER (PROCARDIA XL) 30 mg 24 hr tablet 90 tablet 3 Sig: Take 1 tablet by mouth once daily. RX INSTRUCTIONS: Patient aware RX will be sent to pharmacy. No need to notify patient. Azeb Duggan documented in this encounter [facility] 11-02-2022 Note HNO ID: [id number] Author: Liz Cuevas LPN Service: ? Author Type: ? Type: Progress Notes Filed: 11/02/2022 12:21 PM Note Text: Scan on 11/02/2022 7:01 AM by External Provider, PA-C: Colonoscopy Scan on 11/02/2022 6:56 AM by External Provider, PA-C: Colonoscopy Scan on 11/02/2022 6:18 AM by External Provider, PA-C [facility] 11-02-2022 History of Presen t illness Narrative Scan on 11/02/2022 7:01 AM by External Provider, PA-C: Colonoscopy Scan on 11/02/2022 6:56 AM by External Provider, PA-C: Colonoscopy Scan on 11/02/2022 6:18 AM by External Provider, PA-C documented in this encounter [facility] 10-01-2022 Miscellaneous Notes Faxed. Soraida Plaza MA Order placed. Patient is calling in for a referral for a colonoscopy; states that he has appointment on 11-02-[address] Benjamín Espino. Azeb Duggan documented in this encounter [facility] 10-01-2022 Miscellaneous Notes Patient has been identified by name and date of : Yes Requested Prescriptions Pending Prescriptions Disp Refills rosuvastatin (CRESTOR) 10 mg tablet 90 tablet 1 Sig: Take 1 tablet by mouth once daily. RX INSTRUCTIONS: Patient aware RX will be sent to pharmacy. No need to notify patient. Soraida Plaza MA Saima: 06/2022 Nov: 12/2022 Last refill; 04/2022 Patient has been identified by name and date of : Yes Requested Prescriptions Pending Prescriptions Disp Refills rosuvastatin (CRESTOR) 10 mg tablet 90 tablet 1 Sig: Take 1 tablet by mouth once daily. RX INSTRUCTIONS: Patient aware RX will be sent to pharmacy. No need to notify patient. Azeb Duggan documented in this encounter [facility] 09-28-2022 Note HNO ID: [id number] Author: Soraida Plaza MA Service: ? Author Type: Sql Bi Developer Type: Progress Notes Filed: 09/29/2022 1:43 PM Note Text: Scan on 09/27/2022 2:38 PM by External Provider: Consultation - General Surgery Soraida Plaza MA [facility] 09-28-2022 History of Presen t illness Narrative Scan on 09/27/2022 2:38 PM by External Provider: Consultation - General Surgery Soraida Plaza MA documented in this encounter [facility] 09-26-2022 Miscellaneous Notes The following approved medication requests have been transmitted electronically. Requested Prescriptions Signed Prescriptions Disp Refills finasteride (PROSCAR) 5 mg tablet 90 tablet 1 Sig: Take 1 tablet by mouth once daily. Authorizing Provider: CRYSTAL NATION PA-C Patient has been identified by name and date of : Yes Requested Prescriptions Pending Prescriptions Disp Refills finasteride (PROSCAR) 5 mg tablet 90 tablet 1 Sig: Take 1 tablet by mouth once daily. RX INSTRUCTIONS: Patient aware RX will be sent to pharmacy. No need to notify patient. Soraida Plaza MA Saima: 06/2022 Nov: 12/2022 Last refill: 03/2022 Patient's called to refill finasteride 5 mg; not on current med list. Uses [facility] pharmacy. documented in this encounter [facility] 09-11-2022 Note HNO ID: [id number] Author: Liz Cuevas LPN Service: ? Author Type: ? Type: Progress Notes Filed: 09/11/2022 3:33 PM Note Text: Please see outside labs: Scan on 09/08/2022 12:34 PM by External Provider: Miscellaneous Lab Abida Cuevas LPN [facility] 09-11-2022 History of Presen t illness Narrative Please see outside labs: Scan on 09/08/2022 12:34 PM by External Provider: Miscellaneous Lab Abida Cuevas LPN documented in this encounter [facility] 08-06-2022 History of Presen t illness Narrative POPULATION HEALTH NAVIGATION OUTREACH Action/FYI Spoke to pt about colonoscopy, diabetic retinal eye exam. Pt declined scheduling. Notes added to upcoming ov to review hcc gaps Patient Identified by Name and : YES, via phone Outreach Outcome/Action Spoke to patient / parent / legal guardian: Patient declined Did you use a PCP flex slot to schedule this appointment? N/A Reason for Outreach Care Gap or Scheduling/Wellness visits Payer: Payor: [employer] MEDICARE / Plan: [employer] PLUS / Product Type: HMO / Care Gap Reviewed:: Colorectal Cancer Screening Diabetic Eye Exam Reminder: Reminder note to check Health Maintenance for items below Health Maintenance items due: SERUM CREATININE Never done BP CONTROLLED (<130/80) due on 05/17/2022 ADVANCE DIRECTIVE DISCUSSION due on 07/08/2022 DEPRESSION ASSESSMENT due on 07/08/2022 COLORECTAL CANCER SCREENING due on 09/30/2022 Navigation Signature: Yen Huang MA August 06, 2022 10:51 AM documented in this encounter [facility] 06-28-2022 Instructions Keri Day APRN.CNP - 06/28/2022 8:10 AM EST Continue all medications Follow up as scheduled documented in this encounter [facility] 06-28-2022 History of Presen t illness Narrative Chief Complaint Patient presents with: Recheck: Blood pressure HPI Bola Gale is a 66 year old male who presents here today for Above Complaints.. Patient presents for BP follow up. Patient reports that overall he is feeling well. Patient reports home BP's of 130-140 with some in the 120's. Denies headaches, chest pain, shortness of breath, palpitations, peripheral edema. Past medical history, appointments, medications, allergies reviewed. Previous Medical History PAST MEDICAL HISTORY Diagnosis Date Advance directive discussed with patient 11/16/2021 Discussed 11/2021 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 07/12/2017 BMI 32.0-32.9,adult BPH (benign prostatic hyperplasia) 03/06/2012 Chronic pain of right knee 12/05/2018 Diabetes mellitus type 2 with neurological manifestations (HCC) 02/13/2013 Diabetic eye exam (HCC) 10/09/2021 Last done 10/09/2021 [facility] Diabetic ulcer of toe of right foot associated with type 2 diabetes mellitus, limited to breakdown of skin (HCC) 12/05/2018 Erectile dysfunction 02/24/2010 Essential hypertension, benign Essential tremor 09/20/2016 Ex-smoker 05/17/2021 Fistula 12/20/2017 left forearm radial to cephalic ateriovenous Hearing loss 09/10/2012 Hyperlipidemia, mixed Living will in place 11/16/2021 DPA; Reginald (son) Medicare annual wellness visit, subsequent 11/16/2021 Medicare Part B: 01/05/2018, Last done: 11/16/2021 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) 05/17/2021 Osteoarthritis of left knee 02/16/2011 Personal history of nicotine dependence Renal transplant recipient 11/23/2019 Restless leg syndrome 12/05/2018 Right rotator cuff tear 11/16/2021 Treated with PHYSICAL THERAPY. 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-Steph Espino--Repeat in 3 years-2020 FISTULA Left 09/11/2017 Radiocephalic arteriovenous fistula creation--[facility]--Steph Espino PAST SURGICAL HISTORY OF 06/07/15 right grade II Open distal radius and ulnar shaft fracture PROSTATE SURGERY HX REM LESION TRUNK,ARM, LEG <0.5 CM 05/07/07 Exc. piero cyst upper mid back Family History FAMILY HISTORY Problem Relation Age of Onset Diabetes Mother Hypertension Mother Heart Mother [place] other (lung cancer) Mother bone metastasis Diabetes Father other (BPH) Father other (pancreatic cancer) Father Diabetes Brother Diabetes Brother Patient Allergies ALLERGIES Allergen Reactions Bactrim [Sulfametho* Hives Metformin Rash Lipitor [Atorvastat* Other: See Comments myalgia Norvasc [Amlodipine* Swelling Current Medications Current Outpatient Medications on File Prior to Visit Medication Sig Cholecalciferol, Vitamin D3, (VITAMIN D-3) 50 mcg (2,000 unit) cap Take by mouth. OTC - take one tablet daily insulin aspart U-100 (NOVOLOG FLEXPEN U-100 INSULIN) 100 unit/mL (3 mL) 16 units subcutaneously twice daily with meals. insulin glargine (LANTUS SOLOSTAR U-100 INSULIN) 100 unit/mL (3 mL) INJECT 30 Units at bedtime labetalol (TRANDATE) 100 mg tablet Take 1.5 tablets by mouth twice daily. NIFEdipine ER (PROCARDIA XL) 30 mg 24 hr tablet Take 1 tablet by mouth once daily. rosuvastatin (CRESTOR) 10 mg tablet Take 1 tablet by mouth once daily. finasteride (PROSCAR) 5 mg tablet Take 1 tablet by mouth once daily. Insulin Pine Top, Disposable, (BD ULTRAFINE III MINI PEN) 31 gauge x 3/16 use four times/day tacrolimus ER (ENVARSUS XR) 1 mg tablet Take 1 tablet by mouth once daily. triamcinolone acetonide (KENALOG) 0.1 % cream Apply 1 application to affected area once daily. Apply to affected area as needed for itching. Location: lower legs mycophenolate sodium DR (MYFORTIC) 360 mg TbEC Take 720 mg by mouth twice daily. aspirin, enteric coated (ASPIRIN, ENTERIC COATED) 81 mg EC tablet Take 81 mg by mouth once daily. blood sugar diagnostic (ONETOUCH ULTRA TEST) test strip Test blood sugar(s) two times daily. Dx: 250.02. Insulin: No Lancets (ONE TOUCH DELICA) lancets Test blood sugar(s) 4 daily. Dx: 250.02 Insulin: Yes No current facility-administered medications on file prior to visit. Social History Social History Tobacco Use Smoking status: Former Packs/day: 1.00 Years: 6.00 Pack years: 6.00 Types: Cigarettes Smokeless tobacco: Never Tobacco comments: quit 1969' Substance Use Topics Alcohol use: Yes Comment: RARE Drug use: No Review of Symptoms REVIEW OF SYSTEMS SEE HPI EXAM: BP 150/88 Pulse (!) 59 Resp 16 Wt 88 kg (194 lb) BMI 27.64 kg/m General Appearance: Well appearing, alert, in no acute distress, well-hydrated, well nourished.. Lungs: Lungs clear to auscultation. No wheezing, rhonchi, rales.. Heart: RRR without murmur, gallop, or rubs. No ectopy. Health Maintenance List SERUM CREATININE Never done BP CONTROLLED (<130/80) due on 05/17/2022 HBA1C due on 08/16/2022 COLORECTAL CANCER SCREENING due on 09/30/2022 DILATED RETINAL EXAM due on 10/09/2022 DIABETIC FOOT EXAM due on 11/16/2022 LDL CHOLESTEROL due on 05/16/2023 ANNUAL PCP TEAM CHRONIC DISEASE VISIT due on 05/30/2023 PROSTATE CANCER SCREENING DISCUSSION due on 06/10/2024 DTAP,TDAP,TD(5 - Td or Tdap) due on 01/24/2026 ABDOMINAL AORTIC ANEURYSM SCREENING Completed INFLUENZA Completed ADVANCE DIRECTIVE DISCUSSION Completed DEPRESSION ASSESSMENT Completed HEPATITIS C SCREENING Completed SHINGRIX VACCINE Completed COVID-19 VACCINE Completed PNEUMOCOCCAL: 65+ Completed HPV VACCINE Aged Out URINE ALBUMIN:CREATININE RATIO Discontinued Last 5 Encounter BP Readings: Date: BP: 06/28/2022 132/78 05/30/2022 140/70 11/16/2021 116/68 05/17/2021 134/66 11/07/2020 131/65 ASSESSMENT/PLAN: 1. Primary hypertension - ICD9: 401.9, ICD10: I10 - good control - Continue current medication(s) - Encouraged dietary sodium restriction/DASH diet - Recommended regular aerobic exercise. - Recommend home blood pressure monitoring, to bring results in on next visit - Discussed need and benefit for weight loss. - Reviewed risks of HTN and principles of treatment - Goal of BP <130/80 - Recommend home or pharmacy blood pressure monitoring Keri Day APRN.ISAIAH documented in this encounter [facility] 05-30-2022 History of Presen t illness Narrative Chief Complaint Patient presents with: F/U 6 months HPI Bola Gale is a 66 year old male who presents here today for 6 month follow up. Patient with Hx of diabetes with retinopathy, Neuropathy due to diabetes, Hyperlipidemia, HTN, Anemia, s/p renal transplant, Vit D def, essential tremor, RLS, BPH, ex-smoker as well as those reviewed and addressed below and in ROS. Patient has been doing well. No new issues or concerns. He took the Lantus at 30 units a day for a few weeks but then his sugars were running 80's-120 and felt dizzy at times and cut back to the 25 units a day. He is still doing the short acting insulin at 16 units twice a day. Past medical history, appointments, medications, allergies reviewed. Previous Medical History PAST MEDICAL HISTORY Diagnosis Date Adult-onset obesity Advance directive discussed with patient 11/16/2021 Discussed 11/2021 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 07/12/2017 Anemia in stage 5 chronic kidney disease, not on chronic dialysis ([facility]) 07/12/2017 BMI 32.0-32.9,adult BPH (benign prostatic hyperplasia) 03/06/2012 Chronic 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 ([facility]) 02/28/2015 Chronic pain of right knee 12/05/2018 Diabetes mellitus type 2 with neurological manifestations ([facility]) 02/13/2013 Diabetic eye exam ([facility]) 10/09/2021 Last done 10/09/2021 [facility] Diabetic ulcer of toe of right foot associated with type 2 diabetes mellitus, limited to breakdown of skin ([facility]) 12/05/2018 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 08/31/2014 Encounter for long-term (current) use of insulin ([facility]) End stage kidney disease ([facility]) 11/06/2017 Has been added to Transplant list-[facility] 12/25/2017 Enlarged prostate Erectile dysfunction 02/24/2010 Essential hypertension, benign Essential tremor 09/20/2016 Ex-smoker 05/17/2021 Fistula 12/20/2017 left forearm radial to cephalic ateriovenous Hearing loss 09/10/2012 Hypocalcemia 07/31/2017 Hypoglycemia unawareness associated with type 2 diabetes mellitus ([facility]) Kidney disease Living will in place 11/16/2021 JC Montelongo (son) Medicare annual wellness visit, subsequent 11/16/2021 Medicare Part B: 01/05/2018, Last done: 11/16/2021 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 ([facility]) 05/17/2021 Osteoarthritis of left knee 02/16/2011 Other and unspecified hyperlipidemia Pedal edema Personal history of nicotine dependence Renal transplant recipient 11/23/2019 Restless leg syndrome 12/05/2018 Retinopathy, bilateral 03/21/2018 Right rotator cuff tear 11/16/2021 Treated with PHYSICAL THERAPY. 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, with long-term current use of insulin ([facility]) 09/20/2016 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 disease, with long-term current use of insulin ([facility]) 08/21/2019 Type 2 diabetes mellitus with stage 4 chronic kidney disease, with long-term current use of insulin ([facility]) 09/20/2016 Vitamin D deficiency 07/31/2017 White coat hypertension 02/09/2014 Witnessed episode of apnea 11/23/2019 Previous Surgical History PAST SURGICAL HISTORY Procedure Laterality Date COLONOSCOPY FLX DX W/COLLJ SPEC WHEN PFRMD 09/30/2017 [facility]-RAurelio Cehillary--Repeat in 3 years-2020 FISTULA Left 09/11/2017 Radiocephalic arteriovenous fistula creation--[facility]--RAurelio Espino PAST SURGICAL HISTORY OF 06/07/15 right grade II Open distal radius and ulnar shaft fracture PROSTATE SURGERY HX REM LESION TRUNK,ARM, LEG <0.5 CM 05/07/07 Exc. piero cyst upper mid back Family History FAMILY HISTORY Problem Relation Age of Onset Diabetes Mother Hypertension Mother Heart Mother [place] other (lung cancer) Mother bone metastasis Diabetes Father other (BPH) Father other (pancreatic cancer) Father Diabetes Brother Diabetes Brother Patient Allergies ALLERGIES Allergen Reactions Bactrim [Sulfametho* Hives Metformin Rash Lipitor [Atorvastat* Other: See Comments myalgia Norvasc [Amlodipine* Swelling Current Medications Current Outpatient Medications on File Prior to Visit Medication Sig NIFEdipine ER (PROCARDIA XL) 30 mg 24 hr tablet Take 1 tablet by mouth once daily. rosuvastatin (CRESTOR) 10 mg tablet Take 1 tablet by mouth once daily. finasteride (PROSCAR) 5 mg tablet Take 1 tablet by mouth once daily. insulin aspart U-100 (NOVOLOG FLEXPEN U-100 INSULIN) 100 unit/mL (3 mL) 16 units subcutaneously twice daily with meals. insulin glargine (LANTUS SOLOSTAR U-100 INSULIN) 100 unit/mL (3 mL) INJECT 30 Units at bedtime labetalol (TRANDATE) 100 mg tablet Take 1 tablet by mouth twice daily. Insulin Pine Top, Disposable, (BD ULTRAFINE III MINI PEN) 31 gauge x / use four times/day tacrolimus ER (ENVARSUS XR) 1 mg tablet Take 1 tablet by mouth once daily. triamcinolone acetonide (KENALOG) 0.1 % cream Apply 1 application to affected area once daily. Apply to affected area as needed for itching. Location: lower legs mycophenolate sodium DR (MYFORTIC) 360 mg TbEC Take 720 mg by mouth twice daily. docusate sodium (COLACE) 100 mg capsule Take 200 mg by mouth twice daily. (Patient not taking: Reported on 11/16/2021 ) aspirin, enteric coated (ASPIRIN, ENTERIC COATED) 81 mg EC tablet Take 81 mg by mouth once daily. DAPSONE ORAL Take by mouth. blood sugar diagnostic (AppsideUCH ULTRA TEST) test strip Test blood sugar(s) two times daily. Dx: 250.02. Insulin: No Lancets (ONE TOUCH DELICA) lancets Test blood sugar(s) 4 daily. Dx: 250.02 Insulin: Yes No current facility-administered medications on file prior to visit. Social History Social History Tobacco Use Smoking status: Former Packs/day: 1.00 Years: 6.00 Pack years: 6.00 Types: Cigarettes Smokeless tobacco: Never Tobacco comments: quit 1969's Substance Use Topics Alcohol use: Yes Comment: RARE Drug use: No Review of Symptoms REVIEW OF SYSTEMS GENERAL: No weight loss, malaise or fevers NECK: Negative for lumps, goiter, pain and significant neck swelling RESPIRATORY: Negative for cough, hemoptysis, wheezing, COPD, dyspnea or shortness of breath CARDIOVASCULAR: Negative for chest pain, leg swelling, hypertension, CHF or palpitations GI: No nausea, vomiting, or diarrhea and No heartburn or reflux symptoms : No history of dysuria, frequency or incontinence ENDOCRINE: see HPI NEURO: No history of headaches, syncope, paralysis, seizures or increase in his tremors EXAM: BP 140/70 (BP Site: Right Arm, BP Position: Sitting, BP Cuff Size: Regular Adult) Pulse 64 Resp 16 Wt 87.1 kg (192 lb) BMI 27.35 kg/m General Appearance: Well appearing, alert, in no acute distress, well-hydrated, well nourished.. Eyes: Anicteric sclera. Pupils are equally round and reactive to light. Extraocular movements are intact. . Neck: Supple, no adenopathy; thyroid symmetric, normal size, no bruits. Lungs: Lungs clear to auscultation. No wheezing, rhonchi, rales.. Heart: RRR without murmur, gallop, or rubs. No ectopy. Abdomen: Normal abdominal exam, Abdomen soft, non-tender. Bowel sounds normal. No masses, organomegaly. Extremities: No deformities, edema, skin discoloration, Good capillary refill. . Musculoskeletal: No joint swelling, deformity, or tenderness. Peripheral Pulses: Normal. Neurologic: Gait normal. Reflexes normal and symmetric. Sensation to light touch and crainal nerves 2-12 intact.. Health Maintenance List SERUM CREATININE Never done DEPRESSION ASSESSMENT Never done COVID-19 VACCINE(5 - Booster for Pfizer series) due on 12/02/2021 INFLUENZA(1) due on 03/08/2022 LDL CHOLESTEROL due on 05/10/2022 URINE ALBUMIN:CREATININE RATIO due on 05/18/2022 HBA1C due on 08/16/2022 COLORECTAL CANCER SCREENING due on 09/30/2022 DILATED RETINAL EXAM due on 10/09/2022 DIABETIC FOOT EXAM due on 11/16/2022 ANNUAL PCP TEAM CHRONIC DISEASE VISIT due on 11/16/2022 BP CONTROLLED (<130/80) due on 11/16/2022 PROSTATE CANCER SCREENING DISCUSSION due on 06/10/2024 DTAP,TDAP,TD(5 - Td or Tdap) due on 01/24/2026 ABDOMINAL AORTIC ANEURYSM SCREENING Completed ADVANCE DIRECTIVE DISCUSSION Completed HEPATITIS C SCREENING Completed SHINGRIX VACCINE Completed PNEUMOCOCCAL: 65+ Completed HPV VACCINE Aged Out Data reviewed A/P ASSESSMENT/PLAN: 1. Diabetes mellitus type 2 with neurological manifestations (HCC) - ICD9: 250.60, ICD10: E11.49 (primary diagnosis) uncontrolled improved control - Continue current medications - Encouraged regular aerobic exercise and weight loss - BP goal of <130/80 - LDL goal of <100 - patient to work on getting Lantus up to 30 units a day. - INSULIN ASPART (U-100) 100 UNIT/ML (3 ML) SUBCUTANEOUS PEN - INSULIN GLARGINE (U-100) 100 UNIT/ML (3 ML) SUBCUTANEOUS PEN 2. 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 disease, with long-term current use of insulin (HCC) - ICD9: 250.40, 585.2, V58.67, ICD10: E11.22, N18.2, Z79.4 - as per #1 3. 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 ([facility]) - ICD9: 249.60, 357.2, ICD10: E13.40 - stable 6. Diabetic eye exam ([facility]) - ICD9: V72.0, 250.00, ICD10: Z01.00, E11.9 - up to date 7. Essential hypertension, benign - ICD9: 401.1, ICD10: I10 - suboptimal control - Continue current medication(s) - Increase labetalol (Trandate) to 150 mg twice a day - f/u HTN med check in 4 weeks. - Recommended regular aerobic exercise. - Recommend home blood pressure monitoring, to bring results in on next visit - Goal of BP <130/80 8. Hyperlipidemia, mixed - ICD9: 272.2, ICD10: E78.2 - good control - Encouraged following a low fat, low cholesterol diet. - Discussed the benefits of regular aerobic exercise and weight loss. - Encouraged following a low carbohydrate, healthy oil intake diet. - Continue current therapy. 9. Renal transplant recipient - ICD9: V42.0, ICD10: Z94.0 - cont f/u with renal 10. 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 - ICD9: 285.21, 585.2, ICD10: N18.2, D63.1 - management per renal. Recent Hg was normal. 11. Vitamin D deficiency - ICD9: 268.9, ICD10: E55.9 - cont replacement 12. Restless leg syndrome - ICD9: 333.94, ICD10: G25.81 - stable 13. Essential tremor - ICD9: 333.1, ICD10: G25.0 - stable Requested Prescriptions Signed Prescriptions Disp Refills insulin aspart U-100 (NOVOLOG FLEXPEN U-100 INSULIN) 100 unit/mL (3 mL) 5 Each 5 Si units subcutaneously twice daily with meals. insulin glargine (LANTUS SOLOSTAR U-100 INSULIN) 100 unit/mL (3 mL) 5 Each 5 Sig: INJECT 30 Units at bedtime labetalol (TRANDATE) 100 mg tablet 270 tablet 1 Sig: Take 1.5 tablets by mouth twice daily. F/u 4 weeks HTN med check F/u 6 months extensive Alo Avina MD documented in this encounter [facility] 05-21-2022 History of Presen t illness Narrative EVUSHELD Nursing Administration Documentation Note Patient is eligible to receive EVUSHELD (tixagevimab with cilgavimab) intramuscular injections per the criteria of the Emergency Use Authorization (EUA) for pre-exposure prophylaxis of COVID-19. I have verified that the patient has not received a COVID-19 immunization in the previous two weeks and does not report any COVID-19 symptoms or acute illness. The following steps were followed during EVUSHELD administration: Patient provided EUA Fact Sheet at time of administration Patient administered both tixagevimab and cilgavimab syringes consecutively in two separate injection sites Patient monitored for 1 hour after administration for common adverse reactions (headache, fatigue, cough) and signs of hypersensitivity Patient educated to get COVID-19 tested if they experience any signs or symptoms of COVID-19 at any time I have answered all of the patient s questions regarding administration. Patient denies any additional questions at this time. documented in this encounter [facility] 05-21-[address] Engel RN - 05/21/2022 1:00 PM EST Received Evusheld injection today. Please call if you have any concerns at [phone] documented in this encounter [facility] 05-14-2022 Miscellaneous Notes Patient has been identified by name and date of : Yes Requested Prescriptions Pending Prescriptions Disp Refills NIFEdipine ER (PROCARDIA XL) 30 mg 24 hr tablet 90 tablet 1 Sig: Take 1 tablet by mouth once daily. RX INSTRUCTIONS: Patient aware RX will be sent to pharmacy. No need to notify patient. Soraida Plaza MA Saima: 11/2021 Nov: 05/2022 Last refill: 11/2021 Patient has been identified by name and date of : Yes Requested Prescriptions Pending Prescriptions Disp Refills NIFEdipine ER (PROCARDIA XL) 30 mg 24 hr tablet 90 tablet 1 Sig: Take 1 tablet by mouth once daily. RX INSTRUCTIONS: Pharmacy initiated this request. No need to notify patient. Nancy Suh Pss documented in this encounter [facility] 04-20-2022 History of Presen t illness Narrative Patient seeing me 05/30/2022 and will address any lab needs at that time. POPULATION HEALTH NAVIGATION OUTREACH Action/FYI Due for Urine Albumin. Order pending and forwarded to PCP Pt identified by name and : NO Outreach Outcome/Action Forwarded to PCP Did you use a PCP flex slot to schedule this appointment? N/A Reason for Outreach Care Gap or Scheduling/Wellness visits Payer: Payor: [employer] MEDICARE / Plan: [employer] PLUS / Product Type: HMO / Care Gap Reviewed:: HBA1C Nephropathy (Albumin/Creatinine) Urine Reminder: Reminder note to check Health Maintenance for items below Health Maintenance items due: SERUM CREATININE Never done DEPRESSION ASSESSMENT Never done HBA1C due on 08/18/2021 COVID-19 VACCINE(5 - Booster for Pfizer series) due on 12/02/2021 INFLUENZA(1) due on 03/08/2022 LDL CHOLESTEROL due on 05/10/2022 URINE ALBUMIN:CREATININE RATIO due on 05/18/2022 Message Sent to Practice: Yes Navigation Signature: Margie Batista Population Health Navigator April 20, 2022 11:21 AM documented in this encounter [facility] 04-11-2022 Miscellaneous Notes Patient has been identified by name and date of : Yes Spouse phones for refill(s): Requested Prescriptions Pending Prescriptions Disp Refills rosuvastatin (CRESTOR) 10 mg tablet 90 tablet 1 Sig: Take 1 tablet by mouth once daily. Date of last office visit in primary care: 11/16/21, NOV: 05/30/22 Last 2 Encounter Wt Readings: Date: Wt: 11/16/2021 88 kg (194 lb) 05/17/2021 86.6 kg (191 lb) Previous labs/tests for medication: Cholesterol: Triglycerides (mg/dL) Date Value 12/24/2019 267 HDL Cholesterol (no units) Date Value 05/10/2021 42 LDL Cholesterol (no units) Date Value 05/10/2021 99 ALT (SGPT) (U/L) Date Value 05/10/2021 23 Please advise. Thank you. Clarita Thompson RN documented in this encounter [facility] 03-05-2022 History of Presen t illness Narrative POPULATION HEALTH NAVIGATION OUTREACH Action/ Camila [facility] Patient due for the following: HGB A1C ordered 11/16/2021 MyChart activation Left voicemail for patient to return call Pt identified by name and : NO Outreach Outcome/Action Unable to reach patient: Left message Did you use a PCP flex slot to schedule this appointment? N/A Reason for Outreach Care Gap or Scheduling/Wellness visits Payer: Payor: [employer] MEDICARE / Plan: [employer] PLUS / Product Type: HMO / Care Gap Reviewed:: HBA1C Reminder: Reminder note to check Health Maintenance for items below Health Maintenance items due: SERUM CREATININE Never done HBA1C due on 08/18/2021 COVID-19 VACCINE(5 - Booster for Pfizer series) due on 02/06/2022 Message Sent to Practice: No Navigation Signature: Hortencia Davenport March 05, 2022 10:48 AM documented in this encounter [facility] 02-06-2022 Miscellaneous Notes No information was entered but I spoke to Benson at [facility] and told her 12/21/21 a prescription was sent; we reviewed all information and Benson found the script; she will call the patient back and notify him or spouse. documented in this encounter [facility] 12-21-2021 Miscellaneous Notes The following approved medication requests have been transmitted electronically. Signed Prescriptions Disp Refills insulin aspart U-100 (NOVOLOG FLEXPEN U-100 INSULIN) 100 unit/mL (3 mL) 5 Pen 5 Si units subcutaneously twice daily with meals. Authorizing Provider: ALO AVINA insulin glargine (LANTUS SOLOSTAR U-100 INSULIN) 100 unit/mL (3 mL) 5 Pen 5 Sig: INJECT 30 Units at bedtime GUANAKO: No Authorizing Provider: ALO AVINA MD reports patient switched to [employer] insurance, who does not cover humalog or glargine insulins, but will cover novolog and lantus. Asking pcp to send new Rx's to [facility]. Pended. Last ov w/pcp: 11-16-21. documented in this encounter [facility] 11-17-2021 History of Presen t illness Narrative EVUSHELD Nursing Administration Documentation Note Patient was deemed eligible by provider for EVUSHELD (tixagevimab with cilgavimab) intramuscular injections per the criteria of the Emergency Use Authorization (EUA) for pre-exposure prophylaxis of COVID-19. The following steps were followed with EVUSHELD administration: Patient has not received COVD-19 immunization in previous two weeks. Patient does not report any COVID-19 symptoms or acute illness. Patient provided EUA Fact Sheet at time of administration. Patient administered both tixagevimab with cilgavimab syringes consecutively in two separate injection sites. Patient monitored for 1 hour after administration for common adverse reactions (headache, fatigue, cough) and signs of hypersensitivity. Educated patient to get COVID-19 tested if they experience any signs or symptoms of COVID-19 at any time. Patient denies concerns/questions at this time. documented in this encounter [facility] 11-16-2021 Instructions Alo Avina MD - 11/16/2021 9:34 AM EDT If you want to get the shingrix vaccine for the prevention of Shingles please check with a local pharmacy. When you can bring in copies of living diamond and power of employee benefits attorney for health care forms. Increase the lantus to 30 units before bed and the humulog to 16 units twice a day. Please get labs done on or after 05/04/2022 prior to your next visit. documented in this encounter [facility] 11-16-2021 History of Presen t illness Narrative Images from the original note were not included. Medicare Yearly Visit Medical B eligibilty date 01/05/2018 Date of last exam NA PAST MEDICAL HISTORY Diagnosis Date Adult-onset obesity Advance directive discussed with patient 11/16/2021 Discussed 11/2021 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 07/12/2017 Anemia in stage 5 chronic kidney disease, not on chronic dialysis (HCC) 07/12/2017 BMI 32.0-32.9,adult BPH (benign prostatic hyperplasia) 03/06/2012 Chronic 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 (HCC) 02/28/2015 Chronic pain of right knee 12/05/2018 Diabetes mellitus type 2 with neurological manifestations ([facility]) 02/13/2013 Diabetic ulcer of toe of right foot associated with type 2 diabetes mellitus, limited to breakdown of skin ([facility]) 12/05/2018 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 08/31/2014 Encounter for long-term (current) use of insulin ([facility]) End stage kidney disease ([facility]) 11/06/2017 Has been added to Transplant list-[facility] 12/25/2017 Enlarged prostate Erectile dysfunction 02/24/2010 Essential hypertension, benign Essential tremor 09/20/2016 Ex-smoker 05/17/2021 Fistula 12/20/2017 left forearm radial to cephalic ateriovenous Hearing loss 09/10/2012 Hypocalcemia 07/31/2017 Hypoglycemia unawareness associated with type 2 diabetes mellitus ([facility]) Kidney disease Living will in place 11/16/2021 JC Montelongo (son) Medicare annual wellness visit, subsequent 11/16/2021 Medicare Part B: 01/05/2018, Last done: 11/16/2021 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 ([facility]) 05/17/2021 Osteoarthritis of left knee 02/16/2011 Other and unspecified hyperlipidemia Pedal edema Personal history of nicotine dependence Renal transplant recipient 11/23/2019 Restless leg syndrome 12/05/2018 Retinopathy, bilateral 03/21/2018 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, with long-term current use of insulin ([facility]) 09/20/2016 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 disease, with long-term current use of insulin ([facility]) 08/21/2019 Type 2 diabetes mellitus with stage 4 chronic kidney disease, with long-term current use of insulin ([facility]) 09/20/2016 Vitamin D deficiency 07/31/2017 White coat hypertension 02/09/2014 Witnessed episode of apnea 11/23/2019 PAST SURGICAL HISTORY Procedure Laterality Date COLONOSCOPY FLX DX W/COLLJ SPEC WHEN PFRMD 09/30/2017 KIRSTEN Espino--Repeat in 3 years-2020 FISTULA Left 09/11/2017 Radiocephalic arteriovenous fistula creation--[facility]--Steph Espino PAST SURGICAL HISTORY OF 06/07/15 right grade II Open distal radius and ulnar shaft fracture PROSTATE SURGERY HX REM LESION TRUNK,ARM, LEG <0.5 CM 05/07/07 Exc. piero cyst upper mid back ALLERGIES: Bactrim [Sulfamethoxazole], Metformin, Lipitor [Atorvastatin Calcium], and Norvasc [Amlodipine Besylate] Medications reviewed: Yes FAMILY HISTORY Problem Relation Age of Onset Diabetes Mother Hypertension Mother Heart Mother [place] other (lung cancer) Mother bone metastasis Diabetes Father other (BPH) Father other (pancreatic cancer) Father Diabetes Brother Diabetes Brother SOCIAL HISTORY: Social History Tobacco Use Smoking status: Former Smoker Packs/day: 1.00 Years: 6.00 Pack years: 6.00 Types: Cigarettes Smokeless tobacco: Never Used Tobacco comment: quit Substance Use Topics Alcohol use: Yes Comment: RARE Drug use: No Bola works out regularly 6-7 times per week with walking. He watches his diet for sodium, low fat and low cholesterol all of the time. List of current specialists seen: Dr. Li (Renal [facility]) Dr. Peoples (optho) Dr. Ktaz (vitro specialist) End of Live Planning discussed including patients advanced directive wishes: Yes I am willing to follow Bola's advanced directives. PHQ-2 / Depression screen Depression Screening 01/25/2016 06/17/2017 06/19/2018 11/16/2021 PHQ-2 Score 0 2 0 0 Depression screening tool completed and reviewed. Based on score and interview, patient is not at risk for depression. Screening tool discussed with patient, and I recommended no further intervention at this time. PHQ-2 Score: 0 Functional Ability/Safety Screen 1. Was the patient's timed Up and Go test unsteady or longer than 30 seconds? No 2. Does the patient need help with the phone, transportation, shopping,preparing meals, housework, laundry, medications or managing money? No 3. Does your home have rugs in the hallway, lack of grab bars in the bathroom (Y), lack of handrails on the stairs or have poor lighting? No Hearing Evaluation: normal PHYSICAL EXAM BP 116/68 (BP Site: Right Arm, BP Position: Sitting, BP Cuff Size: Large Adult) Pulse 60 Resp 16 Wt 88 kg (194 lb) BMI 27.64 kg/m Alert and oriented X 3: YES Body mass index is 27.64 kg/m . Visual acuity: seeing optho See below ASSESSMENT/PLAN: 66 year old male The following prevention plan was discussed during the office visit and provided to the patient: See below Alo Avina MD Chief Complaint Patient presents with: Medicare Wellness Exam HPI Bola Gale is a 66 year old male who presents here today for Medicare Annual Visit. Patient with Hx of diabetes with retinopathy, Neuropathy due to diabetes, Hyperlipidemia, HTN, Anemia, s/p renal transplant, Vit D def, essential tremor, RLS, BPH, ex-smoker as well as those reviewed and addressed below and in ROS. . Concerns; Right/left hip pain off/on. May notice pain with turning certain ways. No pain with laying on them. No grinding or clicking. Past medical history, appointments, medications, allergies reviewed. Previous Medical History PAST MEDICAL HISTORY Diagnosis Date Adult-onset obesity 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 07/12/2017 Anemia in stage 5 chronic kidney disease, not on chronic dialysis ([facility]) 07/12/2017 BMI 32.0-32.9,adult BPH (benign prostatic hyperplasia) 03/06/2012 Chronic 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 ([facility]) 02/28/2015 Chronic pain of right knee 12/05/2018 Diabetes mellitus type 2 with neurological manifestations ([facility]) 02/13/2013 Diabetic ulcer of toe of right foot associated with type 2 diabetes mellitus, limited to breakdown of skin ([facility]) 12/05/2018 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 ([facility]) 08/31/2014 Encounter for long-term (current) use of insulin ([facility]) End stage kidney disease ([facility]) 11/06/2017 Has been added to Transplant list-[facility] 12/25/2017 Enlarged prostate Erectile dysfunction 02/24/2010 Essential hypertension, benign Essential tremor 09/20/2016 Ex-smoker 05/17/2021 Fistula 12/20/2017 left forearm radial to cephalic ateriovenous Hearing loss 09/10/2012 Hypocalcemia 07/31/2017 Hypoglycemia unawareness associated with type 2 diabetes mellitus ([facility]) Kidney disease 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 ([facility]) 05/17/2021 Osteoarthritis of left knee 02/16/2011 Other and unspecified hyperlipidemia Pedal edema Personal history of nicotine dependence Renal transplant recipient 11/23/2019 Restless leg syndrome 12/05/2018 Retinopathy, bilateral 03/21/2018 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, with long-term current use of insulin ([facility]) 09/20/2016 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 disease, with long-term current use of insulin ([facility]) 08/21/2019 Type 2 diabetes mellitus with stage 4 chronic kidney disease, with long-term current use of insulin ([facility]) 09/20/2016 Vitamin D deficiency 07/31/2017 White coat hypertension 02/09/2014 Witnessed episode of apnea 11/23/2019 Previous Surgical History PAST SURGICAL HISTORY Procedure Laterality Date COLONOSCOP W/ OR W/O BRSH SPEC 09/30/2017 [facility]-Steph Espino--Repeat in 3 years-2020 FISTULA Left 09/11/2017 Radiocephalic arteriovenous fistula creation--[facility]--Steph Espino PAST SURGICAL HISTORY OF 06/07/15 right grade II Open distal radius and ulnar shaft fracture PROSTATE SURGERY HX REM LESION TRUNK,ARM, LEG <0.5 CM 05/07/07 Exc. piero cyst upper mid back Family History FAMILY HISTORY Problem Relation Age of Onset Diabetes Mother Hypertension Mother Heart Mother [place] other (lung cancer) Mother bone metastasis Diabetes Father other (BPH) Father other (pancreatic cancer) Father Diabetes Brother Diabetes Brother Patient Allergies ALLERGIES Allergen Reactions Bactrim [Sulfametho* Hives Metformin Rash Lipitor [Atorvastat* Other: See Comments myalgia Norvasc [Amlodipine* Swelling Current Medications Current Outpatient Medications on File Prior to Visit Medication Sig NIFEdipine ER (PROCARDIA XL) 30 mg 24 hr tablet Take 1 tablet by mouth once daily. rosuvastatin (CRESTOR) 10 mg tablet Take 1 tablet by mouth once daily. finasteride (PROSCAR) 5 mg tablet Take 1 tablet by mouth once daily. insulin lispro (HUMALOG KWIKPEN INSULIN) 100 unit/mL Inject 14 Units subcutaneously twice daily with meals. insulin glargine (LANTUS SOLOSTAR U-100 INSULIN) 100 unit/mL (3 mL) INJECT 25 Units at bedtime tacrolimus ER (ENVARSUS XR) 1 mg tablet Take 1 tablet by mouth once daily. labetalol (TRANDATE) 100 mg tablet Take 1 tablet by mouth twice daily. triamcinolone acetonide (KENALOG) 0.1 % cream Apply 1 application to affected area once daily. Apply to affected area as needed for itching. Location: lower legs Insulin Pine Top, Disposable, (BD ULTRAFINE III MINI PEN) 31 gauge x 3/16 use four times/day mycophenolate sodium DR (MYFORTIC) 360 mg TbEC Take 720 mg by mouth twice daily. docusate sodium (COLACE) 100 mg capsule Take 200 mg by mouth twice daily. aspirin, enteric coated (ASPIRIN, ENTERIC COATED) 81 mg EC tablet Take 81 mg by mouth once daily. DAPSONE ORAL Take by mouth. blood sugar diagnostic (AppsideUCH ULTRA TEST) test strip Test blood sugar(s) two times daily. Dx: 250.02. Insulin: No Lancets (ONE TOUCH DELICA) lancets Test blood sugar(s) 4 daily. Dx: 250.02 Insulin: Yes No current facility-administered medications on file prior to visit. Social History Social History Tobacco Use Smoking status: Former Smoker Packs/day: 1.00 Years: 6.00 Pack years: 6.00 Types: Cigarettes Smokeless tobacco: Never Used Tobacco comment: quit 1969's Substance Use Topics Alcohol use: Yes Comment: RARE Drug use: No Review of Symptoms REVIEW OF SYSTEMS GENERAL: No unintentional weight loss, malaise or fevers HEENT: Negative for frequent or significant headaches, No changes in hearing or vision, no nose bleeds or other nasal problems NECK: Negative for lumps, goiter, pain and significant neck swelling RESPIRATORY: Negative for cough, hemoptysis, wheezing, COPD, dyspnea or shortness of breath CARDIOVASCULAR: Negative for chest pain, leg swelling, hypertension, CHF or palpitations GI: No nausea, vomiting, or diarrhea, No heartburn or reflux symptoms and no blood : No history of dysuria, blood MUSCULOSKELETAL: see HPI. Right rotator will bother him if he lays on it. SKIN: Negative for lesions, rash, and itching PSYCH: Negative for sleep disturbance, mood disorder and recent psychosocial stressors HEMATOLOGY/LYMPHOLOGY: Negative for prolonged bleeding, bruising easily or swollen nodes ENDOCRINE: Negative for cold or heat intolerance, symptoms of low BS's NEURO: No history of headaches, syncope, paralysis, seizures. Has essential tremors EXAM: BP 116/68 (BP Site: Right Arm, BP Position: Sitting, BP Cuff Size: Large Adult) Pulse 60 Resp 16 Wt 88 kg (194 lb) BMI 27.64 kg/m Last 5 Encounter Wt Readings: Date: Wt: 11/16/2021 88 kg (194 lb) 05/17/2021 86.6 kg (191 lb) 11/07/2020 89.4 kg (197 lb) 06/06/2020 91.6 kg (202 lb) 03/03/2020 91.6 kg (202 lb) General Appearance: Well appearing, alert, in no acute distress, well-hydrated, well nourished.. Skin: Skin color, texture, turgor normal, no suspicious rashes or lesions. Head: Normocephalic, no masses, lesions, tenderness or abnormalities. Eyes: Anicteric sclera. Pupils are equally round and reactive to light. Extraocular movements are intact. . Ears: External ears, TM's normal, canals clear. Neck: Supple, no adenopathy; thyroid symmetric, normal size, no bruits. Lungs: Lungs clear to auscultation. No wheezing, rhonchi, rales.. Heart: RRR without murmur, gallop, or rubs. No ectopy. Abdomen: Normal abdominal exam, Abdomen soft, non-tender. Bowel sounds normal. No masses, organomegaly. Extremities: No deformities, edema, skin discoloration, clubbing or cyanosis. Musculoskeletal: Muscular strength intact, No joint swelling, deformity, or tenderness. Peripheral Pulses: Normal. Neurologic: Gait normal. Reflexes normal and symmetric. Sensation to light touch and crainal nerves 2-12 intact.. Genitalia: Normal, Penis normal. No urethral discharge. Scrotum normal to palpation. No hernia.. Rectal: Normal exam. Prostate slightly enlarged but smooth firm capsule. Diabetic Foot Exam: Feet: Shoes and socks removed, normal distal pulses, non-sensitive to microfilament in all places but the heels, vibratory exam within normal limits and calluses noted bilaterally Skin: warm and dry Vascular Pulses: Normal SEMMES-MAGDALENA MONOFILAMENT TESTING Left Foot Right Foot Dorsal Surface Absent Dorsal Surface Absent Plantar Surface Absent 4/5 sites Plantar Surface Absent 4/5 sites Health Maintenance List ABDOMINAL AORTIC ANEURYSM SCREENING Never done SERUM CREATININE Never done SHINGRIX VACCINE(3 of 3) due on 05/07/2019 DIABETIC FOOT EXAM due on 06/06/2021 ADVANCE DIRECTIVE DISCUSSION Never done HBA1C due on 08/18/2021 DEPRESSION SCREENING due on 11/07/2021 COVID-19 VACCINE(5 - Booster for Pfizer series) due on 02/06/2022 LDL CHOLESTEROL due on 05/10/2022 ANNUAL PCP TEAM CHRONIC DISEASE VISIT due on 05/17/2022 BP CONTROLLED (<130/80) due on 05/17/2022 URINE ALBUMIN:CREATININE RATIO due on 05/18/2022 COLORECTAL CANCER SCREENING due on 09/30/2022 DILATED RETINAL EXAM due on 10/09/2022 PROSTATE CANCER SCREENING DISCUSSION due on 06/10/2024 DTAP,TDAP,TD(5 - Td or Tdap) due on 01/24/2026 INFLUENZA Completed HEPATITIS C SCREENING Completed PNEUMOVAX AGE 65 AND OVER WITH 5YR LOOKBACK Completed MENINGOCOCCAL CONJUGATE Aged Out Data reviewed A/P ASSESSMENT/PLAN: 1. Medicare annual wellness visit, subsequent - ICD9: V70.0, ICD10: Z00.00 (primary diagnosis) - Counseled on healthy diet and regular exercise - Follow up for annual exam in one year 2. 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 3. 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 disease, with long-term current use of insulin (HCC) - ICD9: 250.40, 585.2, V58.67, ICD10: E11.22, N18.2, Z79.4 As per #2 - Continue current medications - Encouraged regular aerobic exercise and weight loss - BP goal of <130/80 - LDL goal of <100 5. Diabetes mellitus type 2 with neurological manifestations (HCC) - ICD9: 250.60, ICD10: E11.49 - As above 6. 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 7. Essential hypertension, benign - ICD9: 401.1, ICD10: I10 - good control - Continue current medication(s) - Recommended regular aerobic exercise. - Recommend home blood pressure monitoring, to bring results in on next visit - Goal of BP <130/80 8. Hyperlipidemia, mixed - ICD9: 272.2, ICD10: E78.2 - suboptimal control - Encouraged following a low fat, low cholesterol diet. - Discussed the benefits of regular aerobic exercise and weight loss. - Encouraged following a low carbohydrate, healthy oil intake diet. - Continue current therapy. 9. 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 - ICD9: 285.21, 585.2, ICD10: N18.2, D63.1 - Cont f/u with renal 10. Vitamin D deficiency - ICD9: 268.9, ICD10: E55.9 - Good level. No changes. 11. Restless leg syndrome - ICD9: 333.94, ICD10: G25.81 - Stable. 12. Essential tremor - ICD9: 333.1, ICD10: G25.0 - Discussed primidone and wants to monitor for now. 13. Living will in place - ICD9: V49.89, ICD10: Z78.9 - Advised to bring in copies 14. Advance directive discussed with patient - ICD9: V65.49, ICD10: Z71.89 - As per # 13 15. Diabetic eye exam (HCC) - ICD9: V72.0, 250.00, ICD10: Z01.00, E11.9 - Up to date 16. Tear of right rotator cuff, unspecified tear extent, unspecified whether traumatic - ICD9: 840.4, ICD10: M75.101 - Stable. Never had surgical repair. Signed Prescriptions Disp Refills labetalol (TRANDATE) 100 mg tablet 180 tablet 1 Sig: Take 1 tablet by mouth twice daily. GUANAKO: No Insulin Pine Top, Disposable, (BD ULTRAFINE III MINI PEN) 31 gauge x 3/16 400 Each 3 Sig: use four times/day GUANAKO: No F/u 6 months routine I spent a total of 40 minutes on the date of the service which included preparing to see the patient, [id number] patient care, completing clinical documentation, performing a medically appropriate examination, counseling and educating the patient/family/caregiver and ordering medications, tests, or procedures. Alo Avina MD documented in this encounter [facility] 11-06-2021 Miscellaneous Notes Orders printed and faxed to [facility]. Soraida Plaza [place] orders printed and ready to be faxed. Spouse called asking if patient needs lab work for upcoming appointment, to please fax to [facility]. Patient will be having lab work there Sat or this week. documented in this encounter [facility] 10-12-2021 Miscellaneous Notes The following approved medication requests have been transmitted electronically. Signed Prescriptions Disp Refills rosuvastatin (CRESTOR) 10 mg tablet 90 tablet 1 Sig: Take 1 tablet by mouth once daily. GUANAKO: No Authorizing Provider: ALO AVINA MD Patient has been identified by name and date of : Yes Pharmacy phones for refill(s): Pending Prescriptions Disp Refills ROSUVASTATIN 10 MG TABLET 90 tablet 3 Sig: Take 1 tablet by mouth once daily. GUANAKO: No Date of last office visit in primary care: 05/17/2021, has appt 11/16/2021 Last 2 Encounter Wt Readings: Date: Wt: 05/17/2021 86.6 kg (191 lb) 11/07/2020 89.4 kg (197 lb) Previous labs/tests for medication: Cholesterol: Triglycerides (mg/dL) Date Value 12/24/2019 267 HDL Cholesterol (no units) Date Value 05/10/2021 42 LDL Cholesterol (no units) Date Value 05/10/2021 99 ALT (SGPT) (U/L) Date Value 05/10/2021 23 Please advise. Thank you. Zandra Ybarra LPN documented in this encounter [facility] 09-26-2021 Miscellaneous Notes The following approved medication requests have been transmitted electronically. Signed Prescriptions Disp Refills finasteride (PROSCAR) 5 mg tablet 90 tablet 1 Sig: Take 1 tablet by mouth once daily. GUANAKO: No Authorizing Provider: ALO AVINA MD Last office visit: 05/17/21 F/u scheduled: 11/16/21 Esha Pozo Ma Patient has been identified by name and date of : Yes Pending Prescriptions Disp Refills FINASTERIDE 5 MG TABLET 90 tablet 3 Sig: Take 1 tablet by mouth once daily. GUANAKO: No RX INSTRUCTIONS: Pharmacy initiated this request. No need to notify patient. Mary Gama Pss documented in this encounter [facility] documented as of this encounter (statuses as of 09/26/2021) [facility] History of Past illness Narrative* Problem Noted Date Resolved Date Chronic pain of right knee 12/05/201806/06 Diabetic ulcer of toe of rig ht foot associated with type 2 diabetes mellitus, limited to breakdown of skin 12/05/20182019 End stage kidney disease 11/06/2017 020 Overview: Has been added to [facility] 12/25/2017 Hypocalcemia 07/31/2017 03/07/2018 Fracture of forearm, closed 01/25/201609/05 Chronic 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 02/2806/06/2020 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 08/31/2014 08/21/2018 Sebaceous cyst 04/24/2007 09/20/2016 documented as of this encounter (statuses as of 10/12/2021) [facility] History of Past illness Narrative* Problem Noted Date Resolved Date Chronic pain of right knee 12/05/201806/06 Diabetic ulcer of toe of rig ht foot associated with type 2 diabetes mellitus, limited to breakdown of skin 12/05/20182019 End stage kidney disease 11/06/2017 020 Overview: Has been added to [facility] 12/25/2017 Hypocalcemia 07/31/2017 03/07/2018 Fracture of forearm, closed 01/25/201609/05 Chronic 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 02/2806/06/2020 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 08/31/2014 08/21/2018 Sebaceous cyst 04/24/2007 09/20/2016 documented as of this encounter (statuses as of 11/06/2021) [facility] History of Past illness Narrative* Problem Noted Date Resolved Date Chronic pain of right knee 12/05/201806/06 Diabetic ulcer of toe of rig ht foot associated with type 2 diabetes mellitus, limited to breakdown of skin 12/05/20182019 End stage kidney disease 11/06/2017 020 Overview: Has been added to [facility] 12/25/2017 Hypocalcemia 07/31/2017 03/07/2018 Fracture of forearm, closed 01/25/201609/05 Chronic 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 02/2806/06/2020 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 08/31/2014 08/21/2018 Sebaceous cyst 04/24/2007 09/20/2016 documented as of this encounter (statuses as of 11/19/2021) [facility] History of Past illness Narrative* Problem Noted Date Resolved Date Chronic pain of right knee 12/05/201806/06 Diabetic ulcer of toe of rig ht foot associated with type 2 diabetes mellitus, limited to breakdown of skin 12/05/20182019 End stage kidney disease 11/06/2017 020 Overview: Has been added to [facility] 12/25/2017 Hypocalcemia 07/31/2017 03/07/2018 Fracture of forearm, closed 01/25/201609/05 Chronic 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 02/2806/06/2020 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 08/31/2014 08/21/2018 Sebaceous cyst 04/24/2007 09/20/2016 documented as of this encounter (statuses as of 12/21/2021) [facility] History of Past illness Narrative* Problem Noted Date Resolved Date Chronic pain of right knee 12/05/201806/06 Diabetic ulcer of toe of rig ht foot associated with type 2 diabetes mellitus, limited to breakdown of skin 12/05/20182019 End stage kidney disease 11/06/2017 020 Overview: Has been added to [facility] 12/25/2017 Hypocalcemia 07/31/2017 03/07/2018 Fracture of forearm, closed 01/25/201609/05 Chronic 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 02/2806/06/2020 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 08/31/2014 08/21/2018 Sebaceous cyst 04/24/2007 09/20/2016 documented as of this encounter (statuses as of 02/06/2022) [facility] History of Past illness Narrative* Problem Noted Date Resolved Date Chronic pain of right knee 12/05/201806/06 Diabetic ulcer of toe of rig ht foot associated with type 2 diabetes mellitus, limited to breakdown of skin 12/05/20182019 End stage kidney disease 11/06/2017 020 Overview: Has been added to [facility] 12/25/2017 Hypocalcemia 07/31/2017 03/07/2018 Fracture of forearm, closed 01/25/201609/05 Chronic 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 02/2806/06/2020 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 08/31/2014 08/21/2018 Sebaceous cyst 04/24/2007 09/20/2016 documented as of this encounter (statuses as of 03/05/2022) [facility] History of Past illness Narrative* Problem Noted Date Resolved Date Chronic pain of right knee 12/05/201806/06 Diabetic ulcer of toe of rig ht foot associated with type 2 diabetes mellitus, limited to breakdown of skin 12/05/20182019 End stage kidney disease 11/06/2017 020 Overview: Has been added to [facility] 12/25/2017 Hypocalcemia 07/31/2017 03/07/2018 Fracture of forearm, closed 01/25/201609/05 Chronic 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 02/2806/06/2020 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 08/31/2014 08/21/2018 Sebaceous cyst 04/24/2007 09/20/2016 documented as of this encounter (statuses as of 04/11/2022) [facility] History of Past illness Narrative* Problem Noted Date Resolved Date Chronic pain of right knee 12/05/201806/06 Diabetic ulcer of toe of rig ht foot associated with type 2 diabetes mellitus, limited to breakdown of skin 12/05/20182019 End stage kidney disease 11/06/2017 020 Overview: Has been added to [facility] 12/25/2017 Hypocalcemia 07/31/2017 03/07/2018 Fracture of forearm, closed 01/25/201609/05 Chronic 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 02/2806/06/2020 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 08/31/2014 08/21/2018 Sebaceous cyst 04/24/2007 09/20/2016 documented as of this encounter (statuses as of 04/23/2022) [facility] History of Past illness Narrative* Problem Noted Date Resolved Date Chronic pain of right knee 12/05/201806/06 Diabetic ulcer of toe of rig ht foot associated with type 2 diabetes mellitus, limited to breakdown of skin 12/05/20182019 End stage kidney disease 11/06/2017 020 Overview: Has been added to [facility] 12/25/2017 Hypocalcemia 07/31/2017 03/07/2018 Fracture of forearm, closed 01/25/201609/05 Chronic 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 02/2806/06/2020 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 08/31/2014 08/21/2018 Sebaceous cyst 04/24/2007 09/20/2016 documented as of this encounter (statuses as of 05/14/2022) [facility] History of Past illness Narrative* Problem Noted Date Resolved Date Chronic pain of right knee 12/05/201806/06 Diabetic ulcer of toe of rig ht foot associated with type 2 diabetes mellitus, limited to breakdown of skin 12/05/20182019 End stage kidney disease 11/06/2017 020 Overview: Has been added to [facility] 12/25/2017 Hypocalcemia 07/31/2017 03/07/2018 Fracture of forearm, closed 01/25/201609/05 Chronic 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 02/2806/06/2020 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 08/31/2014 08/21/2018 Sebaceous cyst 04/24/2007 09/20/2016 documented as of this encounter (statuses as of 06/03/2022) [facility] History of Past illness Narrative* Problem Noted Date Resolved Date Chronic pain of right knee 12/05/201806/06 Diabetic ulcer of toe of rig ht foot associated with type 2 diabetes mellitus, limited to breakdown of skin 12/05/20182019 End stage kidney disease 11/06/2017 020 Overview: Has been added to [facility] 12/25/2017 Hypocalcemia 07/31/2017 03/07/2018 Fracture of forearm, closed 01/25/201609/05 Chronic 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 02/2806/06/2020 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 08/31/2014 08/21/2018 Sebaceous cyst 04/24/2007 09/20/2016 documented as of this encounter (statuses as of 06/29/2022) [facility] History of Past illness Narrative* Problem Noted Date Resolved Date Chronic pain of right knee 12/05/201806/06 Diabetic ulcer of toe of rig ht foot associated with type 2 diabetes mellitus, limited to breakdown of skin 12/05/20182019 End stage kidney disease 11/06/2017 020 Overview: Has been added to [facility] 12/25/2017 Hypocalcemia 07/31/2017 03/07/2018 Fracture of forearm, closed 01/25/201609/05 Chronic 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 02/2806/06/2020 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 08/31/2014 08/21/2018 Sebaceous cyst 04/24/2007 09/20/2016 documented as of this encounter (statuses as of 08/06/2022) [facility] History of Past illness Narrative* Problem Noted Date Resolved Date Chronic pain of right knee 12/05/201806/06 Diabetic ulcer of toe of rig ht foot associated with type 2 diabetes mellitus, limited to breakdown of skin 12/05/20182019 End stage kidney disease 11/06/2017 020 Overview: Has been added to [facility] 12/25/2017 Hypocalcemia 07/31/2017 03/07/2018 Fracture of forearm, closed 01/25/201609/05 Chronic 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 02/2806/06/2020 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 08/31/2014 08/21/2018 Sebaceous cyst 04/24/2007 09/20/2016 documented as of this encounter (statuses as of 09/12/2022) [facility] History of Past illness Narrative* Problem Noted Date Resolved Date Chronic pain of right knee 12/05/201806/06 Diabetic ulcer of toe of rig ht foot associated with type 2 diabetes mellitus, limited to breakdown of skin 12/05/20182019 End stage kidney disease 11/06/2017 020 Overview: Has been added to [facility] 12/25/2017 Hypocalcemia 07/31/2017 03/07/2018 Fracture of forearm, closed 01/25/201609/05 Chronic 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 02/2806/06/2020 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 08/31/2014 08/21/2018 Sebaceous cyst 04/24/2007 09/20/2016 documented as of this encounter (statuses as of 09/26/2022) [facility] History of Past illness Narrative* Problem Noted Date Resolved Date Chronic pain of right knee 12/05/201806/06 Diabetic ulcer of toe of rig ht foot associated with type 2 diabetes mellitus, limited to breakdown of skin 12/05/20182019 End stage kidney disease 11/06/2017 020 Overview: Has been added to [facility] 12/25/2017 Hypocalcemia 07/31/2017 03/07/2018 Fracture of forearm, closed 01/25/201609/05 Chronic 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 02/2806/06/2020 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 08/31/2014 08/21/2018 Sebaceous cyst 04/24/2007 09/20/2016 documented as of this encounter (statuses as of 09/29/2022) [facility] History of Past illness Narrative* Problem Noted Date Resolved Date Chronic pain of right knee 12/05/201806/06 Diabetic ulcer of toe of rig ht foot associated with type 2 diabetes mellitus, limited to breakdown of skin 12/05/20182019 End stage kidney disease 11/06/2017 020 Overview: Has been added to [facility] 12/25/2017 Hypocalcemia 07/31/2017 03/07/2018 Fracture of forearm, closed 01/25/201609/05 Chronic 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 02/2806/06/2020 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 08/31/2014 08/21/2018 Sebaceous cyst 04/24/2007 09/20/2016 documented as of this encounter (statuses as of 10/01/2022) [facility] History of Past illness Narrative* Problem Noted Date Resolved Date Chronic pain of right knee 12/05/201806/06 Diabetic ulcer of toe of rig ht foot associated with type 2 diabetes mellitus, limited to breakdown of skin 12/05/20182019 End stage kidney disease 11/06/2017 020 Overview: Has been added to [facility] 12/25/2017 Hypocalcemia 07/31/2017 03/07/2018 Fracture of forearm, closed 01/25/201609/05 Chronic 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 02/2806/06/2020 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 08/31/2014 08/21/2018 Sebaceous cyst 04/24/2007 09/20/2016 documented as of this encounter (statuses as of 10/02/2022) [facility] History of Past illness Narrative* Problem Noted Date Resolved Date Chronic pain of right knee 12/05/201806/06 Diabetic ulcer of toe of rig ht foot associated with type 2 diabetes mellitus, limited to breakdown of skin 12/05/20182019 End stage kidney disease 11/06/2017 020 Overview: Has been added to [facility] 12/25/2017 Hypocalcemia 07/31/2017 03/07/2018 Fracture of forearm, closed 01/25/201609/05 Chronic 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 02/2806/06/2020 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 08/31/2014 08/21/2018 Sebaceous cyst 04/24/2007 09/20/2016 documented as of this encounter (statuses as of 11/02/2022) [facility] History of Past illness Narrative* Problem Noted Date Resolved Date Chronic pain of right knee 12/05/201806/06 Diabetic ulcer of toe of rig ht foot associated with type 2 diabetes mellitus, limited to breakdown of skin 12/05/20182019 End stage kidney disease 11/06/2017 020 Overview: Has been added to [facility] 12/25/2017 Hypocalcemia 07/31/2017 03/07/2018 Fracture of forearm, closed 01/25/201609/05 Chronic 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 02/2806/06/2020 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 08/31/2014 08/21/2018 Sebaceous cyst 04/24/2007 09/20/2016 documented as of this encounter (statuses as of 11/05/2022) [facility] History of Past illness Narrative* Problem Noted Date Resolved Date Chronic pain of right knee 12/05/201806/06 Diabetic ulcer of toe of rig ht foot associated with type 2 diabetes mellitus, limited to breakdown of skin 12/05/20182019 End stage kidney disease 11/06/2017 020 Overview: [facility] [facility] Hypocalcemia 07/31/2017 03/07/2018 Fracture of forearm, closed 01/25/201609/05 Chronic 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 02/2806/06/2020 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 08/31/2014 08/21/2018 Sebaceous cyst 04/24/2007 09/20/2016 documented as of this encounter (statuses as of 11/20/2022) [facility] History of Past illness Narrative* Problem Noted Date Resolved Date Chronic pain of right knee 12/05/201806/06 Diabetic ulcer of toe of rig ht foot associated with type 2 diabetes mellitus, limited to breakdown of skin 12/05/20182019 End stage kidney disease 11/06/2017 020 Overview: Has been added to [facility] 12/25/2017 Hypocalcemia 07/31/2017 03/07/2018 Fracture of forearm, closed 01/25/201609/05 Chronic 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 02/2806/06/2020 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 08/31/2014 08/21/2018 Sebaceous cyst 04/24/2007 09/20/2016 documented as of this encounter (statuses as of 12/07/2022) [facility] History of Past illness Narrative* Problem Noted Date Resolved Date Chronic pain of right knee 12/05/201806/06 Diabetic ulcer of toe of rig ht foot associated with type 2 diabetes mellitus, limited to breakdown of skin 12/05/20182019 End stage kidney disease 11/06/2017 020 Overview: Has been added to [facility] 12/25/2017 Hypocalcemia 07/31/2017 03/07/2018 Fracture of forearm, closed 01/25/201609/05 Chronic 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 02/2806/06/2020 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 08/31/2014 08/21/2018 Sebaceous cyst 04/24/2007 09/20/2016 documented as of this encounter (statuses as of 12/25/2022) [facility] History of Past illness Narrative* Problem Noted Date Resolved Date Chronic pain of right knee 12/05/201806/06 Diabetic ulcer of toe of rig ht foot associated with type 2 diabetes mellitus, limited to breakdown of skin 12/05/20182019 End stage kidney disease 11/06/2017 020 Overview: Has been added to [facility] 12/25/2017 Hypocalcemia 07/31/2017 03/07/2018 Fracture of forearm, closed 01/25/201609/05 Chronic 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 02/2806/06/2020 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 08/31/2014 08/21/2018 Sebaceous cyst 04/24/2007 09/20/2016 documented as of this encounter (statuses as of 12/26/2022) [facility] History of Past illness Narrative* Problem Noted Date Resolved Date Chronic pain of right knee 12/05/201806/06 Diabetic ulcer of toe of rig ht foot associated with type 2 diabetes mellitus, limited to breakdown of skin 12/05/20182019 End stage kidney disease 11/06/2017 020 Overview: Has been added to [facility] 12/25/2017 Hypocalcemia 07/31/2017 03/07/2018 Fracture of forearm, closed 01/25/201609/05 Chronic 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 02/2806/06/2020 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 08/31/2014 08/21/2018 Sebaceous cyst 04/24/2007 09/20/2016 documented as of this encounter (statuses as of 12/26/2022) [facility] History of Past illness Narrative* Problem Noted Date Resolved Date Chronic pain of right knee 12/05/201806/06 Diabetic ulcer of toe of rig ht foot associated with type 2 diabetes mellitus, limited to breakdown of skin 12/05/20182019 End stage kidney disease 11/06/2017 020 Overview: Has been added to [facility] 12/25/2017 Hypocalcemia 07/31/2017 03/07/2018 Fracture of forearm, closed 01/25/201609/05 Chronic 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 02/2806/06/2020 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 08/31/2014 08/21/2018 Sebaceous cyst 04/24/2007 09/20/2016 documented as of this encounter (statuses as of 12/27/2022) [facility] History of Past illness Narrative* Problem Noted Date Resolved Date Chronic pain of right knee 12/05/201806/06 Diabetic ulcer of toe of rig ht foot associated with type 2 diabetes mellitus, limited to breakdown of skin 12/05/20182019 End stage kidney disease 11/06/2017 020 Overview: Has been added to [facility] 12/25/2017 Hypocalcemia 07/31/2017 03/07/2018 Fracture of forearm, closed 01/25/201609/05 Chronic 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 02/2806/06/2020 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 08/31/2014 08/21/2018 Sebaceous cyst 04/24/2007 09/20/2016 documented as of this encounter (statuses as of 01/08/2023) [facility] History of Past illness Narrative* Problem Noted Date Diagnosed Date Resolved Date Chronic pain of right knee 12/05/2018 1 08/06/2019 Diabetic ulcer of toe of rig ht foot associated with type 2 diabetes mellitus, limited to breakdown of skin 12/05/2018 06/06/2020 End stage kidney disease 11/06/2017 Overview: Has been added to [facility] 12/25/2017 Hypocalcemia 07/31/2017 03/07/2018 Fracture of forearm, closed 01/25/2016 09/20/2016 Chronic 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 02/28/2015 06/06/2020 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 08/31/2014 08/21/2018 Sebaceous cyst 04/24/2007 09/20/2016 documented as of this encounter (statuses as of 01/24/2023) [facility] History of Past illness Narrative* Problem Noted Date Diagnosed Date Resolved Date Chronic pain of right knee 12/05/2018 1 08/06/2019 Diabetic ulcer of toe of rig ht foot associated with type 2 diabetes mellitus, limited to breakdown of skin 12/05/2018 06/06/2020 End stage kidney disease 11/06/2017 Overview: Has been added to [facility] 12/25/2017 Hypocalcemia 07/31/2017 03/07/2018 Fracture of forearm, closed 01/25/2016 09/20/2016 Chronic 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 02/28/2015 06/06/2020 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 08/31/2014 08/21/2018 Sebaceous cyst 04/24/2007 09/20/2016 documented as of this encounter (statuses as of 01/30/2023) [facility] History of Past illness Narrative* Problem Noted Date Diagnosed Date Resolved Date Chronic pain of right knee 12/05/2018 1 08/06/2019 Diabetic ulcer of toe of rig ht foot associated with type 2 diabetes mellitus, limited to breakdown of skin 12/05/2018 06/06/2020 End stage kidney disease 11/06/2017 Overview: Has been added to [facility] 12/25/2017 Hypocalcemia 07/31/2017 03/07/2018 Fracture of forearm, closed 01/25/2016 09/20/2016 Chronic 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 02/28/2015 06/06/2020 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 08/31/2014 08/21/2018 Sebaceous cyst 04/24/2007 09/20/2016 documented as of this encounter (statuses as of 02/06/2023) [facility] History of Past illness Narrative* Problem Noted Date Diagnosed Date Resolved Date Chronic pain of right knee 12/05/2018 1 08/06/2019 Diabetic ulcer of toe of rig ht foot associated with type 2 diabetes mellitus, limited to breakdown of skin 12/05/2018 06/06/2020 End stage kidney disease 11/06/2017 Overview: Has been added to [facility] 12/25/2017 Hypocalcemia 07/31/2017 03/07/2018 Fracture of forearm, closed 01/25/2016 09/20/2016 Chronic 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 02/28/2015 06/06/2020 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 08/31/2014 08/21/2018 Sebaceous cyst 04/24/2007 09/20/2016 documented as of this encounter (statuses as of 02/14/2023) [facility] History of Past illness Narrative* Problem Noted Date Diagnosed Date Resolved Date Chronic pain of right knee 12/05/2018 1 08/06/2019 Diabetic ulcer of toe of rig ht foot associated with type 2 diabetes mellitus, limited to breakdown of skin 12/05/2018 06/06/2020 End stage kidney disease 11/06/2017 Overview: Has been added to [facility] 12/25/2017 Hypocalcemia 07/31/2017 03/07/2018 Fracture of forearm, closed 01/25/2016 09/20/2016 Chronic 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 02/28/2015 06/06/2020 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 08/31/2014 08/21/2018 Sebaceous cyst 04/24/2007 09/20/2016 documented as of this encounter (statuses as of 02/26/2023) [facility] History of Past illness Narrative* Problem Noted Date Diagnosed Date Resolved Date Chronic pain of right knee 12/05/2018 1 08/06/2019 Diabetic ulcer of toe of rig ht foot associated with type 2 diabetes mellitus, limited to breakdown of skin 12/05/2018 06/06/2020 End stage kidney disease 11/06/2017 Overview: Has been added to [facility] 12/25/2017 Hypocalcemia 07/31/2017 03/07/2018 Fracture of forearm, closed 01/25/2016 09/20/2016 Chronic 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 02/28/2015 06/06/2020 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 08/31/2014 08/21/2018 Sebaceous cyst 04/24/2007 09/20/2016 documented as of this encounter (statuses as of 03/07/2023) [facility] History of Past illness Narrative* Problem Noted Date Diagnosed Date Resolved Date Chronic pain of right knee 12/05/2018 1 08/06/2019 Diabetic ulcer of toe of rig ht foot associated with type 2 diabetes mellitus, limited to breakdown of skin 12/05/2018 06/06/2020 End stage kidney disease 11/06/2017 Overview: Has been added to [facility] 12/25/2017 Hypocalcemia 07/31/2017 03/07/2018 Fracture of forearm, closed 01/25/2016 09/20/2016 Chronic 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 02/28/2015 06/06/2020 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 08/31/2014 08/21/2018 Sebaceous cyst 04/24/2007 09/20/2016 documented as of this encounter (statuses as of 03/13/2023) [facility] History of Past illness Narrative* Problem Noted Date Diagnosed Date Resolved Date Chronic pain of right knee 12/05/2018 1 08/06/2019 Diabetic ulcer of toe of rig ht foot associated with type 2 diabetes mellitus, limited to breakdown of skin 12/05/2018 06/06/2020 End stage kidney disease 11/06/2017 Overview: Has been added to [facility] 12/25/2017 Hypocalcemia 07/31/2017 03/07/2018 Fracture of forearm, closed 01/25/2016 09/20/2016 Chronic 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 02/28/2015 06/06/2020 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 08/31/2014 08/21/2018 Sebaceous cyst 04/24/2007 09/20/2016 documented as of this encounter (statuses as of 03/13/2023) [facility] History of Past illness Narrative* Problem Noted Date Diagnosed Date Resolved Date Chronic pain of right knee 12/05/2018 1 08/06/2019 Diabetic ulcer of toe of rig ht foot associated with type 2 diabetes mellitus, limited to breakdown of skin 12/05/2018 06/06/2020 End stage kidney disease 11/06/2017 Overview: Has been added to [facility] 12/25/2017 Hypocalcemia 07/31/2017 03/07/2018 Fracture of forearm, closed 01/25/2016 09/20/2016 Chronic 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 02/28/2015 06/06/2020 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 08/31/2014 08/21/2018 Sebaceous cyst 04/24/2007 09/20/2016 documented as of this encounter (statuses as of 03/19/2023) [facility] History of Past illness Narrative* Problem Noted Date Diagnosed Date Resolved Date Chronic pain of right knee 12/05/2018 1 08/06/2019 Diabetic ulcer of toe of rig ht foot associated with type 2 diabetes mellitus, limited to breakdown of skin 12/05/2018 06/06/2020 End stage kidney disease 11/06/2017 Overview: Has been added to [facility] 12/25/2017 Hypocalcemia 07/31/2017 03/07/2018 Fracture of forearm, closed 01/25/2016 09/20/2016 Chronic 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 02/28/2015 06/06/2020 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 08/31/2014 08/21/2018 Sebaceous cyst 04/24/2007 09/20/2016 documented as of this encounter (statuses as of 03/25/2023) [facility] History of Past illness Narrative* Problem Noted Date Diagnosed Date Resolved Date Chronic pain of right knee 12/05/2018 1 08/06/2019 Diabetic ulcer of toe of rig ht foot associated with type 2 diabetes mellitus, limited to breakdown of skin 12/05/2018 06/06/2020 End stage kidney disease 11/06/2017 Overview: Has been added to [facility] 12/25/2017 Hypocalcemia 07/31/2017 03/07/2018 Fracture of forearm, closed 01/25/2016 09/20/2016 Chronic 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 02/28/2015 06/06/2020 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 08/31/2014 08/21/2018 Sebaceous cyst 04/24/2007 09/20/2016 documented as of this encounter (statuses as of 04/01/2023) [facility] History of Past illness Narrative* Problem Noted Date Diagnosed Date Resolved Date Chronic pain of right knee 12/05/2018 1 08/06/2019 Diabetic ulcer of toe of rig ht foot associated with type 2 diabetes mellitus, limited to breakdown of skin 12/05/2018 06/06/2020 End stage kidney disease 11/06/2017 Overview: Has been added to [facility] 12/25/2017 Hypocalcemia 07/31/2017 03/07/2018 Fracture of forearm, closed 01/25/2016 09/20/2016 Chronic 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 02/28/2015 06/06/2020 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 08/31/2014 08/21/2018 Sebaceous cyst 04/24/2007 09/20/2016 documented as of this encounter (statuses as of 05/09/2023) [facility] of Past illness Narrative* Problem Noted Date Diagnosed Date Resolved Date Chronic pain of right knee 12/05/2018 1 08/06/2019 Diabetic ulcer of toe of rig ht foot associated with type 2 diabetes mellitus, limited to breakdown of skin 12/05/2018 06/06/2020 End stage kidney disease 11/06/2017 Overview: Has been added to [facility] 12/25/2017 Hypocalcemia 07/31/2017 03/07/2018 Fracture of forearm, closed 01/25/2016 09/20/2016 Chronic 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 02/28/2015 06/06/2020 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 08/31/2014 08/21/2018 Sebaceous cyst 04/24/2007 09/20/2016 documented as of this encounter (statuses as of 05/21/2023) [facility] History of Past illness Narrative* Problem Noted Date Diagnosed Date Resolved Date Chronic pain of right knee 12/05/2018 1 08/06/2019 Diabetic ulcer of toe of rig ht foot associated with type 2 diabetes mellitus, limited to breakdown of skin 12/05/2018 06/06/2020 End stage kidney disease 11/06/2017 Overview: Has been added to [facility] 12/25/2017 Hypocalcemia 07/31/2017 03/07/2018 Fracture of forearm, closed 01/25/2016 09/20/2016 Chronic 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 02/28/2015 06/06/2020 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 08/31/2014 08/21/2018 Sebaceous cyst 04/24/2007 09/20/2016 documented as of this encounter (statuses as of 08/28/2023) [facility] Diagnosis Benign prostatic hyperplasia with nocturia documented in this encounter [facility] note* Diagnosis 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 disease, with long-term current use of insulin (HCC)- Primary 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, with long-term current use of insulin (HCC) 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, with long-term current use of insulin (HCC) Hyperlipidemia, mixed Mixed hyperlipidemia Essential hypertension, benign Diabetes mellitus type 2 with neurological manifestations (HCC) Type II or unspecified type diabetes mellitus with neurological manifestations, not stated as uncontrolled 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 Vitamin D deficiency Unspecified vitamin D deficiency Prostate disorder Unspecified disorder of prostate documented in this encounter [facility] note* Diagnosis At increased risk of exposure to COVID-19 virus- [facility] Diagnosis Medicare annual wellness visit, subsequent- Primary Routine general medical examination at a [facility] care facility 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, 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, with long-term current use of insulin (HCC) 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 disease, with long-term current use of insulin (HCC) Diabetes mellitus type 2 with neurological manifestations (HCC) Type II or unspecified type diabetes mellitus with neurological manifestations, not stated as uncontrolled 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) Secondary diabetes mellitus with neurological manifestations, not stated as uncontrolled, or unspecified Essential hypertension, benign Hyperlipidemia, mixed Mixed hyperlipidemia 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 Vitamin D deficiency Unspecified vitamin D deficiency Restless leg syndrome Restless legs syndrome (RLS) Essential tremor Essential and other specified forms of tremor Living will in place Advance directive discussed with patient Other specified counseling Diabetic eye exam (HCC) Type II or unspecified type diabetes mellitus without mention of complication, not stated as uncontrolled Tear of right rotator cuff, unspecified tear extent, unspecified whether traumatic documented in this encounter [facility] note* Diagnosis Diabetes mellitus type 2 with neurological manifestations (HCC) Type II or unspecified type diabetes mellitus with neurological manifestations, not stated as uncontrolled [facility] 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 disease, with long-term current use of insulin (HCC)- Primary [facility] Diagnosis At increased risk of exposure to COVID-19 virus- [facility] Diabetes mellitus type 2 with neurological manifestations (HCC)- Primary Type II or unspecified type diabetes mellitus with neurological manifestations, not stated as uncontrolled 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 disease, 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, with long-term current use of insulin (HCC) 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, with long-term current use of insulin (HCC) 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) Secondary diabetes mellitus with neurological manifestations, not stated as uncontrolled, or unspecified Diabetic eye exam (HCC) Type II or unspecified type diabetes mellitus without mention of complication, not stated as uncontrolled Essential hypertension, benign Hyperlipidemia, mixed Mixed hyperlipidemia Renal transplant recipient 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 Vitamin D deficiency Unspecified vitamin D deficiency Restless leg syndrome Restless legs syndrome (RLS) Essential tremor Essential and other specified forms of tremor [facility] Diagnosis Primary hypertension- Primary Unspecified essential hypertension [facility] Diagnosis Benign prostatic hyperplasia with nocturia [facility] Diagnosis Screening for colon cancer Special screening for malignant neoplasms, colon [facility] Diagnosis Hyperlipidemia, mixed- Primary Mixed hyperlipidemia Essential hypertension, benign Diabetes mellitus type 2 with neurological manifestations (HCC) Type II or unspecified type diabetes mellitus with neurological manifestations, not stated as uncontrolled 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 disease, with long-term current use of insulin (HCC) Prostate disorder Unspecified disorder of prostate Vitamin D deficiency Unspecified vitamin D deficiency [facility] Diagnosis 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 disease, with long-term current use of insulin (HCC)- Primary 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, 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, with long-term current use of insulin (HCC) Diabetes mellitus type 2 with neurological manifestations (HCC) Type II or unspecified type diabetes mellitus with neurological manifestations, not stated as uncontrolled Diabetic eye exam (HCC) Type II or unspecified type diabetes mellitus without mention of complication, not stated as uncontrolled 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) Secondary diabetes mellitus with neurological manifestations, not stated as uncontrolled, or unspecified Essential hypertension, benign Hyperlipidemia, mixed Mixed hyperlipidemia 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 Vitamin D deficiency Unspecified vitamin D deficiency Restless leg syndrome Restless legs syndrome (RLS) Benign prostatic hyperplasia, unspecified whether lower urinary tract symptoms present Advance directive discussed with patient Other specified counseling Renal transplant recipient [facility] Diagnosis Type II diabetes mellitus with manifestations (HCC)- Primary Type II or unspecified type diabetes mellitus with other specified manifestations, not stated as uncontrolled 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 disease, with long-term current use of insulin (HCC) 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, 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, with long-term current use of insulin (HCC) Diabetes mellitus type 2 with neurological manifestations (HCC) Type II or unspecified type diabetes mellitus with neurological manifestations, not stated as uncontrolled [facility] 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 disease, with long-term current use of insulin ([facility] Primary [facility] Diagnosis Diabetes mellitus type 2 with neurological manifestations (HCC) Type II or unspecified type diabetes mellitus with neurological manifestations, not stated as uncontrolled [facility] Diagnosis Encounter for change or removal of surgical wound dressing- Primary [facility] Diagnosis Chronic kidney disease (CKD), stage IV (severe) ([facility])- Primary Chronic kidney disease, Stage IV (severe) [facility] Diagnosis Type II diabetes mellitus with manifestations (HCC)- Primary Type II or unspecified type diabetes mellitus with other specified manifestations, not stated as uncontrolled [facility] Diagnosis Benign prostatic hyperplasia with nocturia [facility] Diagnosis Aftercare for amputation stump- Primary Other orthopedic aftercare documented in this encounter [facility] Summary Purpose Family History No Family History Records Found natural daughter Name Dates Details Family history of diabetes m ellitus(V18.0, Z83.3) Status:Active Sibling Name Dates Details Family history of S/P CABG ( coronary artery bypass graft)(V45.81, Z95.1) Status:Active aunt Name Dates Details Family history of chronic ki dney disease(V18.69, Z84.1) Status:Active Mother Name Dates Details Family history of cerebrovas cular accident (CVA)(V17.1, Z82.3) Status:Active Sister Name Dates Details Family history of chronic ki dney disease(V18.69, Z84.1) Status:Active natural daughter Name Dates Details Family history of diabetes m ellitus(V18.0, Z83.3) Status:Active Sibling Name Dates Details Family history of S/P CABG ( coronary artery bypass graft)(V45.81, Z95.1) Status:Active aunt Name Dates Details Family history of chronic ki dney disease(V18.69, Z84.1) Status:Active Mother Name Dates Details Family history of cerebrovas cular accident (CVA)(V17.1, Z82.3) Status:Active Sister Name Dates Details Family history of chronic ki dney disease(V18.69, Z84.1) Status:Active natural daughter Name Dates Details Family history of diabetes m ellitus(V18.0, Z83.3) Status:Active Sibling Name Dates Details Family history of S/P CABG ( coronary artery bypass graft)(V45.81, Z95.1) Status:Active aunt Name Dates Details Family history of chronic ki dney disease(V18.69, Z84.1) Status:Active Mother Name Dates Details Family history of cerebrovas cular accident (CVA)(V17.1, Z82.3) Status:Active Sister Name Dates Details Family history of chronic ki dney disease(V18.69, Z84.1) Status:Active natural daughter Name Dates Details Family history of diabetes m ellitus(V18.0, Z83.3) Status:Active Sibling Name Dates Details Family history of S/P CABG ( coronary artery bypass graft)(V45.81, Z95.1) Status:Active aunt Name Dates Details Family history of chronic ki dney disease(V18.69, Z84.1) Status:Active Mother Name Dates Details Family history of cerebrovas cular accident (CVA)(V17.1, Z82.3) Status:Active Sister Name Dates Details Family history of chronic ki dney disease(V18.69, Z84.1) Status:Active natural daughter Name Dates Details Family history of diabetes m ellitus(V18.0, Z83.3) Status:Active Sibling Name Dates Details Family history of S/P CABG ( coronary artery bypass graft)(V45.81, Z95.1) Status:Active aunt Name Dates Details Family history of chronic ki dney disease(V18.69, Z84.1) Status:Active Mother Name Dates Details Family history of cerebrovas cular accident (CVA)(V17.1, Z82.3) Status:Active Sister Name Dates Details Family history of chronic ki dney disease(V18.69, Z84.1) Status:Active Advance Directives No Advanced Directives Records FoundLatest Code Status on File Code Status Date Activated Date Inactivated Comments Full Code 10/22/2019 12:56 PM Full Code 10/21/2019 7:13 PM 10/22/2019 12:56 PM Latest Code Status on File Code Status Date Activated Date Inactivated Comments Full Code 10/22/2019 12:56 PM Code Status History Code Status Date Activated Date Inactivated Comments Full Code 10/21/2019 7:13 PM 10/22/2019 12:56 PM Documents on File Type Date Recorded Patient Used [employer] Expl anation Advance Directive(s) 06/20/2023 9:20 AM Reason for Referral Specialty Diagnoses / Procedures Referred By Hiro t Referred To Contact General Surgery Diagnoses Screening for colon cancer Procedures CONSULT TO GENERAL SURGERY OFFICE/OUTPATIENT [facility] 60-74 MINUTES Alo Avina MD [address] [place] [address] Referral ID Status Reason Start Date Expiration Date Visits Requested Visits Authorized [id number] Pending Review PCP Requested Referral 10/01/2022 10/01/2023 1 1 Specialty Diagnoses / Procedures Referred By Hiro t Referred To Contact Endocrinology Diagnoses 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 disease, with long-term current use of insulin (HCC) 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, 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, with long-term current use of insulin (HCC) Diabetes mellitus type 2 with neurological manifestations (HCC) Procedures CONSULT TO ENDOCRINOLOGY OFFICE/OUTPATIENT [facility] MDM 60-74 MINUTES Alo Avina MD [address] [place] [address] Referral ID Status Reason Start Date Expiration Date Visits Requested Visits Authorized [id number] Pending Review PCP Requested Referral 12/06/2022 12/06/2023 1 1 Specialty Diagnoses / Procedures Referred By Hiro t Referred To Contact Alo Avina MD [address] [place] [address] Referral ID Status Reason Start Date Expiration Date V isits Requested Visits Authorized [id number] Pending Review 1 1 Specialty Diagnoses / Procedures Referred By Hiro t Referred To Contact Diagnoses Type II diabetes mellitus with manifestations (HCC) Procedures CONSULT TO DIABETES EDUCATION DSME/MNT MEDICAL NUTRITION ASSMT&IVNTJ INDIV EACH 15 [place] MEDICAL NUTRITION ASSMT&IVNTJ INDIV EACH 15 [place] MEDICAL NUTRITION ASSMT&IVNTJ INDIV EACH 15 [place] MEDICAL NUTRITION ASSMT&IVNTJ INDIV EACH 15 TN Claribel Cope, [employer]AR.[employer] [address] [place] [address] Referral ID Status Reason Start Date Expiration Date Visits Requested Visits Authorized [id number] Pending Review PCP Requested Referral 12/26/2022 12/26/2023 1 1 Specialty Diagnoses / Procedures Referred By Contac t Referred To Contact Nephrology Diagnoses Chronic kidney disease (CKD), stage IV (severe) (HCC) Procedures CONSULT TO NEPHROLOGY OFFICE/OUTPATIENT [facility] MDM 60-74 MINUTES Alo Avina MD [address] [place] [address] Referral ID Status Reason Start Date Expiration Date Visits Requested Visits Authorized [id number] Pending Review PCP Requested Referral 02/25/2023 02/25/2024 1 1 Additional Source Comments Reason for Visit (unrecogniz ed section and content) Reason Comments Patient Education Reason Comments Appointment Reason Onset Date Comments Refill Request 09/26/2021 Reason Onset Date Comments Refill Request 10/12/2021 Reason Comments Orders Reason Comments Immunization/Injection Specialty Diagnoses / Procedures Referred By Contac t Referred To Contact Infectious Diseases Diagnoses At increased risk of exposure to COVID-19 virus Sharda Lemons MD [address] [place] [address] Referral ID Status Reason Start Date Expiration Date V isits Requested Visits Authorized [id number] New Request 10/12/2021 11/06/2022 1 1 Reason Comments Medicare Wellness Exam Specialty Diagnoses / Procedures Referred By Contac t Referred To Contact Family Practice / FAMILY MEDICINE Diagnoses Follow-up exam medicare 6 months Procedures OFFICE/OUTPATIENT ESTABLISHED MOD MDM 30-39 MIN 4C Crystal Dugan PA-C [address] [place] [address] Alo Avina MD [address] [place] [address] Referral ID Status Reason Start Date Expiration Date V isits Requested Visits Authorized [id number] Authorized 11/06/2021 07/07/2022 10 10 Reason Comments Medication Request Reason Onset Date Comments Refill Request 02/06/2022 Reason Onset Date Comments Population Health Navigation Outreach 03/05/2022 [employer] Medicare Reason Onset Date Comments Refill Request 04/11/2022 Reason Onset Date Comments Population Health Navigation Outreach 04/20/2022 [employer] Care Gaps Reason Onset Date Comments Refill Request 05/14/2022 Reason Comments F/U 6 months Reason Comments Recheck Blood pressure Reason Onset Date Comments Population Health Navigation Outreach 08/06/2022 [employer] care gaps Reason Comments Outside Labs Results Reason Comments Rx refill; not on current med list Reason Comments Consult General Surgery Reason Comments Refill Request Reason Comments Referral Request Reason Comments Colonoscopy Report Reason Comments Allergies Reason Comments Follow Up routine Reason Onset Date Comments Refill Request 12/25/2022 Reason Comments Diabetes Type 2 diabetes Specialty Diagnoses / Procedures Referred By Contac t Referred To Contact Endocrinology Diagnoses 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 disease, with long-term current use of insulin (HCC) 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, 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, with long-term current use of insulin (HCC) Diabetes mellitus type 2 with neurological manifestations ([facility]) Procedures CONSULT TO ENDOCRINOLOGY OFFICE/OUTPATIENT [facility] 60-74 MINUTES Alo Avina MD [address] [place] [address] Referral ID Status Reason Start Date Expiration Date Visits Requested Visits Authorized [id number] Pending Review PCP Requested Referral 12/06/2022 12/06/2023 1 1 Reason Comments Patient Update Reason Comments Results Reason Comments Results, Lab Reason Comments Home Health update Reason Comments diabetes type 2 Not using dexcom as its not covered by insurance Reason Comments Blood Sugar Readings Reason Onset Date Comments Refill Request 03/25/2023 Reason Comments Outside [id number] Ordered Reason Comments Outside Ophthalmology (unrecognized sect ion and content) No Status Records FoundNo Status Records FoundNo Status Records FoundNo Status Records Found INFORMATION SOURCE (unrecogn ized section and content) DATE CREATED AUTHOR AUTHOR'S ORGANIZ ATION 09/03/2020 [facility] DATE CREATED AUTHOR AUTHOR'S ORGANIZ ATION 05/23/2022 [facility] DATE CREATED AUTHOR AUTHOR'S ORGANIZ ATION 09/04/2023 [facility] Source Comments (unrecognize d section and content) In the event this informatio n is protected by the Federal Confidentiality of Alcohol and Drug Abuse Patient Records regulations: The Federal rules restrict any use of the information to criminally investigate or prosecute any alcohol or drug abuse patient.[facility] the event this information is protected by the Federal Confidentiality of Alcohol and Drug Abuse Patient Records regulations: The Federal rules restrict any use of the information to criminally investigate or prosecute any alcohol or drug abuse patient.[facility] HospitalIn the event this information is protected by the Federal Confidentiality of Alcohol and Drug Abuse Patient Records regulations: The Federal rules restrict any use of the information to criminally investigate or prosecute any alcohol or drug abuse patient.[facility] HospitalIn the event this information is protected by the Federal Confidentiality of Alcohol and Drug Abuse Patient Records regulations: The Federal rules restrict any use of the information to criminally investigate or prosecute any alcohol or drug abuse patient.[facility] HospitalIn the event this information is protected by the Federal Confidentiality of Alcohol and Drug Abuse Patient Records regulations: The Federal rules restrict any use of the information to criminally investigate or prosecute any alcohol or drug abuse patient.[facility] HospitalIn the event this information is protected by the Federal Confidentiality of Alcohol and Drug Abuse Patient Records regulations: The Federal rules restrict any use of the information to criminally investigate or prosecute any alcohol or drug abuse patient.[facility] HospitalIn the event this information is protected by the Federal Confidentiality of Alcohol and Drug Abuse Patient Records regulations: The Federal rules restrict any use of the information to criminally investigate or prosecute any alcohol or drug abuse patient.[facility] HospitalIn the event this information is protected by the Federal Confidentiality of Alcohol and Drug Abuse Patient Records regulations: The Federal rules restrict any use of the information to criminally investigate or prosecute any alcohol or drug abuse patient.[facility] HospitalIn the event this information is protected by the Federal Confidentiality of Alcohol and Drug Abuse Patient Records regulations: The Federal rules restrict any use of the information to criminally investigate or prosecute any alcohol or drug abuse patient.[facility] HospitalIn the event this information is protected by the Federal Confidentiality of Alcohol and Drug Abuse Patient Records regulations: The Federal rules restrict any use of the information to criminally investigate or prosecute any alcohol or drug abuse patient.[facility] HospitalIn the event this information is protected by the Federal Confidentiality of Alcohol and Drug Abuse Patient Records regulations: The Federal rules restrict any use of the information to criminally investigate or prosecute any alcohol or drug abuse patient.[facility] HospitalIn the event this information is protected by the Federal Confidentiality of Alcohol and Drug Abuse Patient Records regulations: The Federal rules restrict any use of the information to criminally investigate or prosecute any alcohol or drug abuse patient.[facility] HospitalIn the event this information is protected by the Federal Confidentiality of Alcohol and Drug Abuse Patient Records regulations: The Federal rules restrict any use of the information to criminally investigate or prosecute any alcohol or drug abuse patient.[facility] HospitalIn the event this information is protected by the Federal Confidentiality of Alcohol and Drug Abuse Patient Records regulations: The Federal rules restrict any use of the information to criminally investigate or prosecute any alcohol or drug abuse patient.[facility] HospitalIn the event this information is protected by the Federal Confidentiality of Alcohol and Drug Abuse Patient Records regulations: The Federal rules restrict any use of the information to criminally investigate or prosecute any alcohol or drug abuse patient.[facility] HospitalIn the event this information is protected by the Federal Confidentiality of Alcohol and Drug Abuse Patient Records regulations: The Federal rules restrict any use of the information to criminally investigate or prosecute any alcohol or drug abuse patient.[facility] HospitalIn the event this information is protected by the Federal Confidentiality of Alcohol and Drug Abuse Patient Records regulations: The Federal rules restrict any use of the information to criminally investigate or prosecute any alcohol or drug abuse patient.[facility] HospitalIn the event this information is protected by the Federal Confidentiality of Alcohol and Drug Abuse Patient Records regulations: The Federal rules restrict any use of the information to criminally investigate or prosecute any alcohol or drug abuse patient.[facility] HospitalIn the event this information is protected by the Federal Confidentiality of Alcohol and Drug Abuse Patient Records regulations: The Federal rules restrict any use of the information to criminally investigate or prosecute any alcohol or drug abuse patient.[facility] HospitalIn the event this information is protected by the Federal Confidentiality of Alcohol and Drug Abuse Patient Records regulations: The Federal rules restrict any use of the information to criminally investigate or prosecute any alcohol or drug abuse patient.[facility] HospitalIn the event this information is protected by the Federal Confidentiality of Alcohol and Drug Abuse Patient Records regulations: The Federal rules restrict any use of the information to criminally investigate or prosecute any alcohol or drug abuse patient.[facility] HospitalIn the event this information is protected by the Federal Confidentiality of Alcohol and Drug Abuse Patient Records regulations: The Federal rules restrict any use of the information to criminally investigate or prosecute any alcohol or drug abuse patient.[facility] HospitalIn the event this information is protected by the Federal Confidentiality of Alcohol and Drug Abuse Patient Records regulations: The Federal rules restrict any use of the information to criminally investigate or prosecute any alcohol or drug abuse patient.[facility] HospitalIn the event this information is protected by the Federal Confidentiality of Alcohol and Drug Abuse Patient Records regulations: The Federal rules restrict any use of the information to criminally investigate or prosecute any alcohol or drug abuse patient.[facility] HospitalIn the event this information is protected by the Federal Confidentiality of Alcohol and Drug Abuse Patient Records regulations: The Federal rules restrict any use of the information to criminally investigate or prosecute any alcohol or drug abuse patient.[facility] HospitalIn the event this information is protected by the Federal Confidentiality of Alcohol and Drug Abuse Patient Records regulations: The Federal rules restrict any use of the information to criminally investigate or prosecute any alcohol or drug abuse patient.[facility] HospitalIn the event this information is protected by the Federal Confidentiality of Alcohol and Drug Abuse Patient Records regulations: The Federal rules restrict any use of the information to criminally investigate or prosecute any alcohol or drug abuse patient.[facility] HospitalIn the event this information is protected by the Federal Confidentiality of Alcohol and Drug Abuse Patient Records regulations: The Federal rules restrict any use of the information to criminally investigate or prosecute any alcohol or drug abuse patient.[facility] HospitalIn the event this information is protected by the Federal Confidentiality of Alcohol and Drug Abuse Patient Records regulations: The Federal rules restrict any use of the information to criminally investigate or prosecute any alcohol or drug abuse patient.[facility] HospitalIn the event this information is protected by the Federal Confidentiality of Alcohol and Drug Abuse Patient Records regulations: The Federal rules restrict any use of the information to criminally investigate or prosecute any alcohol or drug abuse patient.[facility] HospitalIn the event this information is protected by the Federal Confidentiality of Alcohol and Drug Abuse Patient Records regulations: The Federal rules restrict any use of the information to criminally investigate or prosecute any alcohol or drug abuse patient.[facility] HospitalIn the event this information is protected by the Federal Confidentiality of Alcohol and Drug Abuse Patient Records regulations: The Federal rules restrict any use of the information to criminally investigate or prosecute any alcohol or drug abuse patient.[facility] HospitalIn the event this information is protected by the Federal Confidentiality of Alcohol and Drug Abuse Patient Records regulations: The Federal rules restrict any use of the information to criminally investigate or prosecute any alcohol or drug abuse patient.[facility] HospitalIn the event this information is protected by the Federal Confidentiality of Alcohol and Drug Abuse Patient Records regulations: The Federal rules restrict any use of the information to criminally investigate or prosecute any alcohol or drug abuse patient.[facility] HospitalIn the event this information is protected by the Federal Confidentiality of Alcohol and Drug Abuse Patient Records regulations: The Federal rules restrict any use of the information to criminally investigate or prosecute any alcohol or drug abuse patient.[facility] HospitalIn the event this information is protected by the Federal Confidentiality of Alcohol and Drug Abuse Patient Records regulations: The Federal rules restrict any use of the information to criminally investigate or prosecute any alcohol or drug abuse patient.[facility] HospitalIn the event this information is protected by the Federal Confidentiality of Alcohol and Drug Abuse Patient Records regulations: The Federal rules restrict any use of the information to criminally investigate or prosecute any alcohol or drug abuse patient.[facility] HospitalIn the event this information is protected by the Federal Confidentiality of Alcohol and Drug Abuse Patient Records regulations: The Federal rules restrict any use of the information to criminally investigate or prosecute any alcohol or drug abuse patient.[facility] HospitalIn the event this information is protected by the Federal Confidentiality of Alcohol and Drug Abuse Patient Records regulations: The Federal rules restrict any use of the information to criminally investigate or prosecute any alcohol or drug abuse patient.[facility] HospitalIn the event this information is protected by the Federal Confidentiality of Alcohol and Drug Abuse Patient Records regulations: The Federal rules restrict any use of the information to criminally investigate or prosecute any alcohol or drug abuse patient.[facility] HospitalIn the event this information is protected by the Federal Confidentiality of Alcohol and Drug Abuse Patient Records regulations: The Federal rules restrict any use of the information to criminally investigate or prosecute any alcohol or drug abuse patient.[facility] HospitalIn the event this information is protected by the Federal Confidentiality of Alcohol and Drug Abuse Patient Records regulations: The Federal rules restrict any use of the information to criminally investigate or prosecute any alcohol or drug abuse patient.[facility] Care Teams (unrecognized sec tion and content) Production Supv Relationship Specialty Start Date End Date Alo Avina MD [address] [place] [address] PCP - General Family Practice 05/17/21 Production Supv Relationship Specialty Start Date End Date Alo Avina MD [address] [place], [place] [id number] PCP - General Family Practice 05/17/21 Production Supv Relationship Specialty Start Date End Date Alo Avina MD [address] [place] [address] PCP - General Family Medicine 05/19/21 Abbie Rodriguez DO [address] [phone] Nephrology 11/20/19 Production Supv Relationship Specialty Start Date End Date Alo Avina MD [address] [place] [address] PCP - General Family Practice 05/17/21 Production Supv Relationship Specialty Start Date End Date Alo Avina MD [address] [place] [address] PCP - General Family Practice 05/17/21 Production Supv Relationship Specialty Start Date End Date Alo Avnia MD [address] [place] [address] PCP - General Family Practice 05/17/21 Production Supv Relationship Specialty Start Date End Date Alo Avina MD [address] [place] [address] PCP - General Family Medicine 05/17/21 Production Supv Relationship Specialty Start Date End Date Alo Avina MD [address] [place] [address] PCP - General Family Medicine 05/17/21 Production Supv Relationship Specialty Start Date End Date Alo Avina MD [address] [place] [address] PCP - General Family Medicine 05/19/21 Abbie Rodriguez DO [address] [phone] Nephrology 11/20/19 Production Supv Relationship Specialty Start Date End Date Alo Avina MD [address] [place] [address] PCP - General Family Medicine 05/17/21 Production Supv Relationship Specialty Start Date End Date Alo Avina MD [address] [facility] [place] [address] PCP - General Family Medicine 05/17/21 Production Supv Relationship Specialty Start Date End Date Alo Avina MD [address] [facility] [place] [address] PCP - General Family Medicine 05/17/21 Production Supv Relationship Specialty Start Date End Date Alo Avina MD [address] [facility] [place] [address] PCP - General Family Medicine 05/17/21 Production Supv Relationship Specialty Start Date End Date Alo Avina MD [address] [facility] [place] [address] PCP - General Family Medicine 05/17/21 Production Supv Relationship Specialty Start Date End Date Alo Avina MD [address] [facility] [place] [address] PCP - General Family Medicine 05/17/21 Production Supv Relationship Specialty Start Date End Date Alo Avina MD [address] [facility] [place] [address] PCP - General Family Medicine 05/17/21 Production Supv Relationship Specialty Start Date End Date Alo Avina MD [address] [facility] [place] [address] PCP - General Family Medicine 05/17/21 Production Supv Relationship Specialty Start Date End Date Alo Avina MD [address] [facility] [place] [address] PCP - General Family Medicine 05/17/21 Production Supv Relationship Specialty Start Date End Date Alo Avina MD [address] [facility] [place] [address] PCP - General Family Medicine 05/17/21 Production Supv Relationship Specialty Start Date End Date Alo Avina MD [address] [facility] [place] [address] PCP - General Family Medicine 05/17/21 Production Supv Relationship Specialty Start Date End Date Alo Avina MD [address] [place] [address] PCP - General Family Medicine 05/17/21 Production Supv Relationship Specialty Start Date End Date Alo Avina MD [address] [facility] [place] [address] PCP - General Family Medicine 05/17/21 Production Supv Relationship Specialty Start Date End Date Alo Avina MD [address] [facility] [place] [address] PCP - General Family Medicine 05/17/21 Production Supv Relationship Specialty Start Date End Date Alo Avina MD [address] [place] [address] PCP - General Family Medicine 05/17/21 Production Supv Relationship Specialty Start Date End Date Alo Avina MD [address] [facility] [place] [address] PCP - General Family Medicine 05/17/21 Production Supv Relationship Specialty Start Date End Date Alo Avina MD [address] [facility] [place] [address] PCP - General Family Medicine 05/17/21 Production Supv Relationship Specialty Start Date End Date Alo Avina MD [address] [place] [address] PCP - General Family Medicine 05/17/21 FOR RECORDS PERTAINING TO PATIENTS WHO ARE OR HAVE BEEN ENROLLED IN A CHEMICAL DEPENDENCY/SUBSTANCEABUSE PROGRAM, SOME INFORMATION MAY BE OMITTED. This clinical summary was aggregated from multiple sources. Caution should be exercised in using it in the provision of clinical care. This summary normalizes information from multiple sources, and as a consequence, information in this document may materially change the coding, format and clinical context of patient data. In addition, data may be omitted in some cases. CLINICAL DECISIONS SHOULD BE BASED ON THE PRIMARY CLINICAL RECORDS. [employer] provides no warranty or guarantee of the accuracy or completeness of information in this document.
[2023-09-13 09:48] LABS: Protein, Urine (Random) 49.5 mg/dL (<11.9); Protein:Creat Ratio 334 mg/g CRE (0-200)
[2023-09-13 10:03] LABS: Anion Gap 5 (5-15); BUN 22 mg/dL (7-18); BUN/Creat Ratio 17.7 RATIO (10-20); Calcium,Total 8.9 mg/dL (8.5-10.1); Chloride 111 mmol/L (98-107); Creatinine, Serum 1.24 mg/dL (0.70-1.30); EST Glomerular Filtration Rate 62 mL/min (>60); Est Glom Filt Rate - Afr Amer 75 mL/min (>60); Glucose 141 mg/dL (74-106); Potassium 4.4 mmol/L (3.5-5.1); Sodium Level 141 mmol/L (136-145)
== END | disposition home or self-care (01) ==
LOC: LAB.FUTURE 08:49 → LAB 08:49
PROVIDERS: PCP Family Medicine; Referring Provider Student in an Organized Health Care Education/Training Program; Visit Provider Student in an Organized Health Care Education/Training Program
DX: N18.31 Chronic kidney disease, stage 3a (principal)
CPT/HCPCS: 36415; 80048; 82570; 84156

== ENCOUNTER 2023-11-07 05:57 | Outpatient (RCR) | payer MEDICARE, SELFPAY ==
[2023-09-05 23:58] VITALS: BMI 30.8
[2023-11-07 07:05] LABS: Absolute Lymphocyte Count 1.25 X10^3/uL (0.83-4.51); Absolute Neutrophil Count 4.9 X10^3/uL (2.0-7.7); Basophil# 0.06 X10^3/uL; Basophil% 0.8 % (0-1); Eosinophil# 0.15 X10^3/uL; Eosinophils% 2.1 % (0-5); Lymphocyte # 1.25 X10^3/ul (0.83-4.51); Lymphocyte % 17.6 % (19-41); Mean Corp Hgb Conc 32.4 g/dL (32-36); Mean Corpuscular Hgb 28.2 pg (27.0-32.0); Mean Corpuscular Volume 86.9 fL (80-94); Mean Platelet Vol. 10.5 fl (6.2-12.0); Monocyte# 0.71 X10^3/uL; NRBC Flagged by Analyzer 0 % (0-5); Neutrophil % 68.9 % (47-70); Platelet Count 216 K/mm3 (150-450); RBC Distribution Width CV 13.2 % (11.6-14.6); RBC Distribution Width SD 41.1 fl (35.1-43.9); Red Blood Count 4.26 M/mm3 (4.6-6.2); White Blood Count 7.1 K/mm3 (4.4-11.0)
[2023-11-07 07:20] LABS: ALB/GLOB Ratio 1.4 RATIO (0.9-2.4); AST(SGOT) 18 U/L (15-37); Alanine Aminotransfer ALT/SGPT 17 U/L (16-61); Alkaline Phosphatase 52 U/L (45-117); Anion Gap 11 (5-15); BUN 26 mg/dL (7-18); BUN/Creat Ratio 19.4 RATIO (10-20); Calcium,Total 8.9 mg/dL (8.5-10.1); Chloride 110 mmol/L (98-107); Creatinine, Serum 1.34 mg/dL (0.70-1.30); EST Glomerular Filtration Rate 56 mL/min (>60); Est Glom Filt Rate - Afr Amer 68 mL/min (>60); Globulin 2.9 g/dL (2.2-4.2); Glucose 130 mg/dL (74-106); Magnesium 2.2 mg/dL (1.6-2.6); Phosphorus 3.4 mg/dL (2.5-4.9); Potassium 4.1 mmol/L (3.5-5.1); Protein, Total 6.9 g/dL (6.4-8.2); Sodium Level 143 mmol/L (136-145)
[2023-11-07 07:25] LABS: Protein, Urine (Random) 36.1 mg/dL (<11.9); Protein:Creat Ratio 371 mg/g CRE (0-200)
[2023-11-10 12:07] LABS: Tacrolimus (FK506) 4.8 ng/mL (2.0-20.0)
== END 2023-12-03 18:00 | disposition home or self-care (01) ==
LOC: LAB 05:57
PROVIDERS: PCP Family Medicine; Referring Provider Internal Medicine Nephrology; Visit Provider Internal Medicine Nephrology
DX: Z94.0 Kidney transplant status (principal); Z79.899 Other long term (current) drug therapy; Z48.298 Encounter for aftercare following other organ transplant; R79.9 Abnormal finding of blood chemistry, unspecified; D84.9 Immunodeficiency, unspecified; Z91.89 Other specified personal risk factors, not elsewhere classified
CPT/HCPCS: 36415; 80053; 80197; 82570; 83735; 84100; 84156; 85025

== ENCOUNTER → 2023-12-04 | Outpatient (CLI) | payer MEDICARE, SELFPAY ==
[2023-12-04 06:40] LABS: Microalbumin:Creatinine Ratio 320.4 mg/g CRE (<30 mg/g CRE)
[2023-12-04 08:27] LABS: ALB/GLOB Ratio 1.2 RATIO (0.9-2.4); AST(SGOT) 26 U/L (15-37); Alanine Aminotransfer ALT/SGPT 20 U/L (16-61); Albumin, Serum 3.7 g/dL (3.2-5.0); Alkaline Phosphatase 54 U/L (45-117); Anion Gap 7 (5-15); BUN 21 mg/dL (7-18); BUN/Creat Ratio 15.6 RATIO (10-20); Chloride 112 mmol/L (98-107); Cholesterol 159 mg/dL (200); Creatinine, Serum 1.35 mg/dL (0.70-1.30); EST Glomerular Filtration Rate 56 mL/min (>60); Est Glom Filt Rate - Afr Amer 68 mL/min (>60); Globulin 3.1 g/dL (2.2-4.2); Glucose 158 mg/dL (74-106); High Density Lipoprotein 40 mg/dL; Potassium 4.6 mmol/L (3.5-5.1); Protein, Total 6.8 g/dL (6.4-8.2); Sodium Level 141 mmol/L (136-145); Triglycerides 182 mg/dL; Very Low Density Lipoprotein 36 mg/dL (5-40)
[2023-12-04 09:44] LABS: Hemoglobin A1c 6.4 % (3.8-5.6)
== END | disposition home or self-care (01) ==
PROVIDERS: PCP Family Medicine
DX: E11.8 Type 2 diabetes mellitus with unspecified complications (principal)
CPT/HCPCS: 36415; 80053; 80061; 82043; 82570; 83036

== ENCOUNTER → 2024-04-20 | Outpatient (CLI) | payer MEDICARE, SELFPAY ==
[2024-04-20 07:46] LABS: Protein, Urine (Random) 196.8 mg/dL (<11.9); Protein:Creat Ratio 2563 mg/g CRE (0-200)
[2024-04-20 08:05] LABS: Anion Gap 10 (5-15); BUN 19 mg/dL (7-18); BUN/Creat Ratio 16.5 RATIO (10-20); Calcium,Total 9.1 mg/dL (8.5-10.1); Chloride 112 mmol/L (98-107); Creatinine, Serum 1.15 mg/dL (0.70-1.30); EST Glomerular Filtration Rate 67 mL/min (>60); Est Glom Filt Rate - Afr Amer 81 mL/min (>60); Glucose 86 mg/dL (74-106); Potassium 4.1 mmol/L (3.5-5.1); Sodium Level 143 mmol/L (136-145)
== END | disposition home or self-care (01) ==
LOC: LAB 05:58
PROVIDERS: PCP Family Medicine; Referring Provider Student in an Organized Health Care Education/Training Program; Visit Provider Student in an Organized Health Care Education/Training Program
DX: I11.0 Hypertensive heart disease with heart failure (principal); N18.31 Chronic kidney disease, stage 3a; Z94.0 Kidney transplant status
CPT/HCPCS: 36415; 80048; 82570; 84156

== ENCOUNTER → 2024-06-16 | Outpatient (CLI) | payer MEDICARE, SELFPAY ==
[2024-06-16 07:36] LABS: ALB/GLOB Ratio 1.3 RATIO (0.9-2.4); AST(SGOT) 20 U/L (15-37); Alanine Aminotransfer ALT/SGPT 18 U/L (16-61); Albumin, Serum 3.9 g/dL (3.2-5.0); Alkaline Phosphatase 57 U/L (45-117); Anion Gap 5 (5-15); BUN 26 mg/dL (7-18); BUN/Creat Ratio 19.5 RATIO (10-20); Calcium,Total 9.3 mg/dL (8.5-10.1); Chloride 115 mmol/L (98-107); Cholesterol 159 mg/dL (200); Creatinine, Serum 1.33 mg/dL (0.70-1.30); EST Glomerular Filtration Rate 57 mL/min (>60); Est Glom Filt Rate - Afr Amer 69 mL/min (>60); Globulin 2.9 g/dL (2.2-4.2); Glucose 130 mg/dL (74-106); High Density Lipoprotein 37 mg/dL; Potassium 4.2 mmol/L (3.5-5.1); Protein, Total 6.8 g/dL (6.4-8.2); Sodium Level 144 mmol/L (136-145); Triglycerides 160 mg/dL; Very Low Density Lipoprotein 32 mg/dL (5-40)
[2024-06-16 09:07] LABS: Hemoglobin A1c 6.4 % (3.8-5.6)
== END | disposition home or self-care (01) ==
PROVIDERS: PCP Family Medicine
DX: E11.9 Type 2 diabetes mellitus without complications (principal); Z79.4 Long term (current) use of insulin
CPT/HCPCS: 36415; 80053; 80061; 82043; 82570; 83036

== ENCOUNTER → 2024-06-24 | Outpatient (CLI) | payer MEDICARE, SELFPAY ==
[2024-06-24 06:52] LABS: Absolute Lymphocyte Count 1.06 X10^3/uL (0.83-4.51); Absolute Neutrophil Count 4.4 X10^3/uL (2.0-7.7); Basophil# 0.06 X10^3/uL; Basophil% 0.9 % (0-1); Eosinophil# 0.18 X10^3/uL; Eosinophils% 2.8 % (0-5); Hematocrit 36.8 % (40-54); Hemoglobin 11.8 g/dL (13.0-16.5); Lymphocyte # 1.06 X10^3/ul (0.83-4.51); Lymphocyte % 16.5 % (19-41); Mean Corp Hgb Conc 32.1 g/dL (32-36); Mean Corpuscular Hgb 27.6 pg (27.0-32.0); Mean Platelet Vol. 10.3 fl (6.2-12.0); Monocyte# 0.76 X10^3/uL; Monocyte% 11.8 % (0-10); NRBC Flagged by Analyzer 0 % (0-5); Neutrophil # 4.35 X10^3/uL (2.7-7.7); Neutrophil % 67.7 % (47-70); Platelet Count 206 K/mm3 (150-450); RBC Distribution Width CV 13.2 % (11.6-14.6); RBC Distribution Width SD 40.9 fl (35.1-43.9); Red Blood Count 4.28 M/mm3 (4.6-6.2); White Blood Count 6.4 K/mm3 (4.4-11.0)
[2024-06-25 07:47] LABS: Vitamin D,25 Hydroxy 24.5 ng/mL
== END | disposition home or self-care (01) ==
LOC: LAB 05:46
PROVIDERS: PCP Family Medicine; Referring Provider Family Medicine; Visit Provider Family Medicine
DX: E11.22 Type 2 diabetes mellitus with diabetic chronic kidney disease (principal); Z79.4 Long term (current) use of insulin; E11.3393 Type 2 diabetes mellitus with moderate nonproliferative diabetic retinopathy without macular edema, bilateral; N18.2 Chronic kidney disease, stage 2 (mild); D63.1 Anemia in chronic kidney disease; E55.9 Vitamin D deficiency, unspecified; N42.9 Disorder of prostate, unspecified
CPT/HCPCS: 36415; 82306; 84153; 85025

== ENCOUNTER → 2024-07-13 | Outpatient (CLI) | payer MEDICARE, SELFPAY ==
[2024-07-13 06:27] LABS: Absolute Lymphocyte Count 1.11 X10^3/uL (0.83-4.51); Absolute Neutrophil Count 4.8 X10^3/uL (2.0-7.7); Basophil# 0.07 X10^3/uL; Eosinophil# 0.18 X10^3/uL; Eosinophils% 2.6 % (0-5); Hematocrit 38.6 % (40-54); Hemoglobin 12.4 g/dL (13.0-16.5); Lymphocyte # 1.11 X10^3/ul (0.83-4.51); Lymphocyte % 16.2 % (19-41); Mean Corp Hgb Conc 32.1 g/dL (32-36); Mean Corpuscular Hgb 27.7 pg (27.0-32.0); Mean Corpuscular Volume 86.2 fL (80-94); Mean Platelet Vol. 10.2 fl (6.2-12.0); Monocyte# 0.65 X10^3/uL; Monocyte% 9.5 % (0-10); NRBC Flagged by Analyzer 0 % (0-5); Neutrophil # 4.81 X10^3/uL (2.7-7.7); Neutrophil % 70.3 % (47-70); Platelet Count 240 K/mm3 (150-450); RBC Distribution Width CV 13.2 % (11.6-14.6); RBC Distribution Width SD 41.2 fl (35.1-43.9); Red Blood Count 4.48 M/mm3 (4.6-6.2); White Blood Count 6.9 K/mm3 (4.4-11.0)
[2024-07-13 06:42] LABS: Protein, Urine (Random) 118.4 mg/dL (<11.9); Protein:Creat Ratio 1030 mg/g CRE (0-200)
[2024-07-13 06:56] LABS: Anion Gap 4 (5-15); BUN 25 mg/dL (7-18); BUN/Creat Ratio 18.4 RATIO (10-20); Calcium,Total 9.2 mg/dL (8.5-10.1); Chloride 116 mmol/L (98-107); Creatinine, Serum 1.36 mg/dL (0.70-1.30); EST Glomerular Filtration Rate 55 mL/min (>60); Est Glom Filt Rate - Afr Amer 67 mL/min (>60); Glucose 138 mg/dL (74-106); Potassium 3.9 mmol/L (3.5-5.1); Sodium Level 143 mmol/L (136-145); Uric Acid 6.4 mg/dL (3.5-7.2)
[2024-07-13 08:11] LABS: PTHIN 94.1 pg/mL (18.4-80.1)
[2024-07-13 08:14] LABS: Vitamin D,25 Hydroxy 29.9 ng/mL
[2024-07-15 11:07] LABS: Tacrolimus (FK506) 5.1 ng/mL (2.0-20.0)
== END | disposition home or self-care (01) ==
PROVIDERS: PCP Family Medicine
DX: N18.31 Chronic kidney disease, stage 3a (principal); D63.1 Anemia in chronic kidney disease; E21.1 Secondary hyperparathyroidism, not elsewhere classified; Z94.0 Kidney transplant status
CPT/HCPCS: 36415; 80048; 80197; 82306; 82570; 83970; 84156; 84550; 85025

== ENCOUNTER → 2024-10-19 | Outpatient (CLI) | payer MEDICARE, SELFPAY ==
[2024-10-19 06:52] LABS: ALB/GLOB Ratio 1.9 RATIO (0.9-2.4); AST(SGOT) 19 U/L (<=37); Alanine Aminotransfer ALT/SGPT 11 U/L (<=46); Albumin, Serum 4.3 g/dL (3.4-4.8); Alkaline Phosphatase 48 U/L (40-129); Anion Gap 10 (5-15); BUN 24 mg/dL (4-19); BUN/Creat Ratio 17.5 RATIO (10-20); Calcium,Total 9.4 mg/dL (7.6-11.0); Carbon Dioxide 21.5 mmol/L (21.0-32.0); Chloride 111 mmol/L (98-108); Creatinine, Serum 1.37 mg/dL (0.70-1.20); EST Glomerular Filtration Rate 56 (>60); Globulin 2.3 g/dL (2.2-4.2); Glucose 111 mg/dL (70-99); Potassium 4.3 mmol/L (3.3-5.1); Protein, Total 6.6 g/dL (5.9-8.4); Sodium Level 143 mmol/L (133-145); Total Bilirubin 0.27 mg/dL (0.00-1.30)
[2024-10-19 07:03] LABS: Microalbumin:Creatinine Ratio 4881.8 mg/g CRE
[2024-10-19 07:10] LABS: Cholesterol 159 mg/dL (<=200); High Density Lipoprotein 41 mg/dL; Low Density Lipoprotein Calc. 91 mg/dL; Triglycerides 132 mg/dL; Very Low Density Lipoprotein 26 mg/dL (5-40); cholesterol:hdl ratio screen 3.85
[2024-10-19 08:08] LABS: Hemoglobin A1c 6.2 % (<=5.6)
== END | disposition home or self-care (01) ==
LOC: LAB.FUTURE 05:57 → LAB 05:58
PROVIDERS: PCP Family Medicine
DX: E11.9 Type 2 diabetes mellitus without complications (principal); Z79.4 Long term (current) use of insulin
CPT/HCPCS: 36415; 80053; 80061; 82043; 82570; 83036

== ENCOUNTER → 2024-11-23 | Outpatient (CLI) | payer MEDICARE, SELFPAY ==
[2024-11-23 06:51] LABS: Absolute Lymphocyte Count 0.91 X10^3/uL (0.83-4.51); Absolute Neutrophil Count 4.4 X10^3/uL (2.0-7.7); Basophil# 0.03 X10^3/uL; Basophil% 0.5 % (0-1); Eosinophil# 0.08 X10^3/uL; Eosinophils% 1.3 % (0-5); Hematocrit 34.1 % (40-54); Hemoglobin 11.1 g/dL (13.0-16.5); Lymphocyte # 0.91 X10^3/ul (0.83-4.51); Mean Corp Hgb Conc 32.6 g/dL (32-36); Mean Corpuscular Volume 85.9 fL (80-94); Mean Platelet Vol. 9.8 fl (6.2-12.0); Monocyte# 0.59 X10^3/uL; Monocyte% 9.7 % (0-10); NRBC Flagged by Analyzer 0 % (0-5); Neutrophil # 4.44 X10^3/uL (2.7-7.7); Neutrophil % 73.2 % (47-70); Platelet Count 217 K/mm3 (150-450); RBC Distribution Width CV 13.1 % (11.6-14.6); RBC Distribution Width SD 40.8 fl (35.1-43.9); Red Blood Count 3.97 M/mm3 (4.6-6.2); White Blood Count 6.1 K/mm3 (4.4-11.0)
[2024-11-23 07:07] LABS: Protein:Creat Ratio 1327 mg/g CRE (0-200)
[2024-11-23 07:16] LABS: PTHIN 94 pg/mL (11-61)
[2024-11-23 07:32] LABS: BUN 22 mg/dL (4-19); Creatinine, Serum 1.27 mg/dL (0.70-1.20); Glucose 113 mg/dL (70-99)
[2024-11-23 07:33] LABS: Anion Gap 12 (5-15); Calcium,Total 8.8 mg/dL (7.6-11.0); Carbon Dioxide 19.5 mmol/L (21.0-32.0); Chloride 110 mmol/L (98-108); EST Glomerular Filtration Rate 61 (>60); Potassium 3.9 mmol/L (3.3-5.1); Sodium Level 141 mmol/L (133-145); Uric Acid 7.4 mg/dL (3.5-7.2)
[2024-11-25 06:07] LABS: Tacrolimus (FK506) 4.8 ng/mL (5.0-20.0)
== END | disposition home or self-care (01) ==
PROVIDERS: PCP Family Medicine; Referring Provider Student in an Organized Health Care Education/Training Program; Visit Provider Student in an Organized Health Care Education/Training Program
DX: E21.1 Secondary hyperparathyroidism, not elsewhere classified (principal); N18.31 Chronic kidney disease, stage 3a; D63.1 Anemia in chronic kidney disease
CPT/HCPCS: 36415; 80048; 80197; 82306; 82570; 83970; 84156; 84550; 85025

== ENCOUNTER 2025-06-07 05:57 | Outpatient (CLI) | payer MEDICARE, SELFPAY ==
--- OUTSIDE RECORDS SUMMARY | 2025-06-07 06:04 | XMS RPT_ITS | CCD ---
Author Organization [facility] Care Team Providers Care Core Composer Feeder Name Role Phone Unavailable Primary Care Provider UnavailClair Aparicio Unavailable Unavailable Roman Espino Unavailable Unavailable Abbie Rodriguez I Unavailable Unavailable Da, Lehighton Q Unavailable Unavailable Chasity Kelly Unavailable Unavailable Aaron Wesley Unavailable Unavailable Flor Back Unavailable Unavailable Jose Smith Unavailable Unavailable Alo Avina MD Primary Care Provider Abbie Rodriguez DO Unavailable Alo Avina MD Primary Care Provider [phone] Alo Avina MD Primary Care Provider Alo Avina MD Primary Care Provider Abbie Rodriguez DO Unavailable Alo Avina MD Primary Care Provider Alo Avina MD Primary Care Provider Dr. Alo Avina Primary Care Provider Dr. Smooth Espino Attending Provider Dr. Smooth Espino Referring Provider [phone] Dr. Smooth Espino Other Provider Dr. Alo Avina Referring Provider DAMIR Dimas Attending Provider Dr. Oscar Rodarte Emergency Provider [phone] Dr. Ryan Rahman Admit Provider Dr. Ryan Rahman Attending Provider Dr. Ryan Rahman Other Provider Dr. Lane Rojas Other Provider Dr. Smooth Jordan Other Provider [phone] Dr. Lindsay Meza Attending Provider Dr. Lindsay Meza Other Provider Dr. Kenya Scott Attending Provider Dr. Alo Avina Primary Care Provider Dr. Mata Smalls Attending Provider Dr. Ryan Rahman Referring Provider Alo Avina MD Primary Care Provider Alo Avina MD Primary Care Provider Abbie Rodriguez DO Unavailable Rupesh LYNCH, Alo Wetzel Primary Care Provider Yissel LYNCH, Bhavnish Unavailable Shay ACCREDITED FARM MANAGER.IMPREGNATOR, Keri Unavailable Crystal Nation PA-C Unavailable Dr. Alo Avina MD Primary Care Provider Dr. Alo Avina MD Attending Provider Dr. Alo Avina MD Referring Provider VALE RAMÍREZ Attending Provider VALE RAMÍREZ Referring Provider CLARIBEL COPE Attending Provider CILUIE CLARIBEL Referring Provider JIM SQUIRES Attending Unavailable SELF, SELF Referring Unavailable ALO AVINA Primary Care Unavailable Shay ACCREDITED FARM MANAGER.IMPREGNATOR, Keri Unavailable Rios PRAJAPATI Crystal Unavailable CHRISTIAN LAZO Referring Unavailab CHRISTIAN Avelar Attending Unavailab Alo Puente Primary Care Unavailable CHRISTIAN LAZO Referring Unavailab Alo Puente Primary Care Unavailable CHRISTIAN LAZO Attending Unavailab CHRISTIAN Avelar Referring Unavailab le Alo Avina Primary Care Unavailable CHRISTIAN LAZO Attending Unavailab le Judd Dey Attending Unavaila ble Yissel, Bhavnish Referring Unavaila ble Alo Avina Primary Care Unavailable CHRISTIAN LAZO Attending Unavailab CHRISTIAN Avelar Referring Unavailab Alo Puente Primary Care Unavailable Alo Avina Primary Care Unavailable Alo Avina Attending Unavailable Alo Avina Referring Unavailable Claribel Cope Attending Unavailable Alo Avina Primary [facility] Unavailable ALO AVINA Primary Care Unavailable ALO AVINA Attending Unavailable ALO AVINA Primary Care Unavailable CLARIBEL COPE Attending Unavailable Allergies Allergy Classification Reported Allergen(s) Allergy Type Date of Onset Reaction(s) Facility (20 sources) metFORMIN; Translations: [METFORMIN] Drug Allergy 01-02-20 08 Itching, Rash [facility] (6 sources) Penicillins Propensity to adverse reactions to drug 10-04-19 16 [facility] (4 sources) Sulfamethoxazole / Trimethoprim Drug Allergy 10-04-19 16 [facility] (6 sources) Sulfonamides (Antibiotic) Propensity to adverse reactions to drug 10-04-19 16 Itching [facility] (20 sources) amLODIPine; Translations: [AMLODIPINE BESYLATE] Drug Allergy 08-31-19 15 Swelling [facility] Work Phone: (20 sources) atorvastatin; Translations: [ATORVASTATIN CALCIUM] Drug Allergy 10-10-19 12 Other: See Comments [facility] Work Phone: (20 sources) Sulfamethoxazole; Translations: [SULFAMETHOXAZOLE] Drug Allergy 02-14-20 13 Hives [facility] Work Phone: (18 sources) Sulfonamides (Antibiotic); Translations: [Sulfa (Sulfonamide Antibiotics)] Allergy to substance 09-03-19 20 Swelling [facility] (1 source) Penicillins Propensity to adverse reactions to drug 10-04-19 16 [facility] (1 source) Sulfonamides (Antibiotic) Propensity to adverse reactions to drug 10-04-19 16 Itching [facility] (1 source) metFORMIN Drug Allergy 01-04-20 23 [facility] Repository Medications Current Medications Medication Drug Class(es) Dates Sig (Normalized) Sig (Original) amoxicillin 875 mg / clavulanate 125 mg oral tablet (6 sources) Penicillin-class Antibacterial Start: 01-07-2023 take 1 tablet by mouth twice daily Amoxicillin-Pot Clavulanate 875-125 mg tablet Active 1 {tbl} PO TWICE A DAY 26 04January 07, 2023 12:00am First dose tonight Start: 01-07-2023 take 1 tablet by roseanna twice daily Amoxicillin-Pot Clavulanate Active 1 TABLET PO TWICE A DAY 26 04January 07, 2023 12:00am First dose tonight aspirin 81 mg delayed release oral tablet (20 sources) Platelet Aggregation Inhibitor, Nonsteroidal Anti-inflammatory Drug Start: 09-27-2022 take 1 tablet by mouth once daily Aspirin (Enteric Coated Aspirin) 81 mg tablet,delayed release (DR/EC) Active 81 mg PO DAILY September 27, 2022 12:00am aspirin 81 MG Ch ew Tab chewable tablet Chew 1 tablet daily. Active Comment on above: Take 81 mg by mouth once daily. B Complex With C 20-Folic Acid (16 sources) Start: 11-02-2017 take 1 capsule by mouth once daily B Complex With C 20-Folic Acid Active 1 CAP PO DAILY November 02, 2017 10:59am Start: 11-02-2017 End: 09-27-2022 take 1 capsule by mouth once daily B Complex With C 20-Folic Acid Discontinued 1 CAP PO DAILY November 01, 2017 11:00pm September 27, 2022 1:16pm Start: 11-02-2017 End: 09-27-2022 take 1 capsule by mouth once daily B Complex With C 20-Folic Acid Discontinued 1 CAP PO DAILY November 02, 2017 12:00am September 27, 2022 2:16pm Start: 11-02-2017 take 1 capsule by mo [facility] once daily B Complex With C 20-Folic Acid Active 1 CAP PO DAILY November 01, 2017 11:00pm Start: 11-02-2017 take 1 capsule by mo [facility] once daily B Complex With C 20-Folic Acid Active 1 CAP PO DAILY November 02, 2017 12:00am cholecalciferol 0.05 mg oral tablet (20 sources) Vitamin D Start: 10-29-2022 take 1 tablet by mouth once daily Cholecalciferol (Vitamin D3) (Vitamin D3) 50 mcg (2,000 unit) Tablet Active 50 ug PO DAILY October 29, 2022 12:00am take 1 tablet by mouth once rashida y Cholecalciferol, Vitamin D3, 50 mcg (2,000 unit) cap Take by mouth. OTC - take one tablet daily Active take 2 tablets by mouth once irish ly cholecalciferol 25 MCG (1000 UNIT) tablet Take 2 tablets by mouth daily. Active take 1 tablet by mouth once rashida y cholecalciferol 25 MCG (1000 UNIT) tablet Take 2,000 Units by mouth daily. 0 Active Comment on above: Take by mouth. OTC - take one tablet daily ciprofloxacin 500 mg oral tablet (6 sources) Quinolone Antimicrobial Start: 01-08-20 take 1 tablet by mouth every twelve hours Ciprofloxacin Hcl 500 mg tablet Active 500 mg PO Q12H 26 04January 07, 2023 12:00am First dose tonight dapagliflozin 10 mg oral tablet (20 sources) Sodium-Glucose Cotransporter 2 Inhibitor Start: 04-28-20 take 1 tablet by mouth once daily FARXIGA 10 mg tablet Take 10 mg by mouth once daily. 04/28/2024 Active ergocalciferol 1.25 mg oral capsule (12 sources) Provitamin D2 Compound Start: 09-04-19 17 take 39347 [IU] by mouth every month Ergocalciferol (Vitamin D2) Active 49480 UNIT PO EVERY MONTH August 19, 2017 1:00am Start: 09-04-2016 Vitamin D (Erg ocalciferol) 73608 UNIT Oral Capsule 1 csapssule every 3 weeks Quantity: 13 Refills: 0 DO Start : 04-Sep-2016 Active finasteride 5 mg oral tablet (20 sources) 5-alpha Reductase Inhibitor Start: 08-28-2016 End: 05-19-2025 take 1 tablet by mouth once daily finasteride (PROSCAR) 5 mg tablet Indications: Benign prostatic hyperplasia with nocturia Take 1 tablet by mouth once daily. 90 tablet 1 11/20/2024 05/19/2025 Active Comment on above: Take 1 tablet by roseanna th once daily. 3 ml insulin glargine 100 unt/ml pen injector (20 sources) Insulin Analog Start: 10-28-2024 insulin glargi ne (LANTUS SOLOSTAR U-100 INSULIN) 100 unit/mL (3 mL) Inject 25 Units subcutaneously daily at bedtime. 21 mL 3 10/28/2024 Active Start: 12-06-2022 End: 10-28-2024 insulin glargine (LANTUS LESLI OSTAR U-100 INSULIN) 100 unit/mL (3 mL) INJECT 25 Units at bedtime 27 mL 3 12/11/2023 10/28/2024 Discontinued Start: 12-06-2022 insulin glargi ne (LANTUS SOLOSTAR U-100 INSULIN) 100 unit/mL (3 mL) INJECT 25 Units at bedtime 5 Each 5 12/06/2022 Active Start: 09-27-2022 Insulin Glargi ne (Lantus Solostar U-100 Insulin) 100 unit/mL (3 mL) insulin pen Active 25 U SC EVERY EVENING September 27, 2022 2:11pm Start: 09-27-2022 Insulin Glargi ne (Lantus Solostar U-100 Insulin) 100 unit/mL (3 mL) insulin pen Active 30 UNIT SC EVERY EVENING September 27, 2022 2:11pm Start: 05-30-2022 End: 12-06-2022 insulin glargine (LANTUS LESLI OSTAR U-100 INSULIN) 100 unit/mL (3 mL) 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) INJECT 30 Units at bedtime 5 Each 5 05/30/2022 12/06/2022 Discontinued Start: 11-16-2021 End: 05-30-2022 insulin glargine (LANTUS LESLI OSTAR U-100 INSULIN) 100 unit/mL (3 mL) 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) INJECT 30 Units at bedtime 5 Each 5 05/30/2022 Active Start: 06-09-2021 End: 11-16-2021 insulin glargine (LANTUS LESLI OSTAR U-100 INSULIN) 100 unit/mL (3 mL) 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) INJECT 25 Units at bedtime 5 Pen 3 06/09/2021 11/16/2021 Discontinued (Adjust Sig - Block E-Cancel) Start: 04-28-2019 End: 09-27-2022 Insulin Glargine (Lantus Lesli ostar U-100 Insulin) 100 unit/mL (3 mL) insulin pen Discontinued 10 U SC DAILY April 28, 2019 12:00am September 27, 2022 2:18pm Start: 04-06-2016 Lantus SoloSta r 100 UNIT/ML Subcutaneous Solution Pen-injector Quantity: 45 Refills: 0 Start : 06-Apr-2016 Active Start: 04-07-2013 End: 04-28-2019 Insulin Glargine 100 UNITS/M L insulin pen Discontinued 26 U SC DAILY April 07, 2013 12:00am April 28, 2019 8:06pm Start: 04-07-2013 End: 04-28-2019 Insulin Glargine Discontinue d 26 UNITS SC DAILY April 07, 2013 12:00am April 28, 2019 8:06pm inject 25 [IU] by [place] bcutaneous injection at bedtime insulin glargine 100 UNIT/ML Solution Pen-injector injection Inject 25 Units under the skin at bedtime. Active inject 30 [IU] by [place] bcutaneous injection at bedtime insulin glargine 100 UNIT/ML Solution Pen-injector injection Inject 30 Units under the skin at bedtime. 0 Active inject 58 [IU] by [place] bcutaneous injection at bedtime insulin glargine 100 UNIT/ML vial 58 Units by Subcutaneous route At bedtime. 0 Active Comment on above: INJECT 25 Units at b edtime INJECT 30 Units at b edtime 3 ml insulin lispro 100 unt/ml pen injector (20 sources) Insulin Analog Start: 09-27-2022 Insulin Lispro (Humalog Kwikpen Insulin) 100 unit/mL insulin pen Active 16 UNIT SC TWICE A DAY September 27, 2022 2:10pm Start: 11-16-2021 End: 12-21-2021 insulin lispro (HUMALOG KWIK PEN INSULIN) 100 unit/mL Inject 16 Units subcutaneously twice daily with meals. 5 Pen 3 11/16/2021 12/21/2021 Discontinued (Not on Formulary) Start: 06-28-2021 End: 11-16-2021 insulin lispro (HUMALOG KWIK PEN INSULIN) 100 unit/mL Inject 14 Units subcutaneously twice daily with meals. 5 Pen 3 06/28/2021 11/16/2021 Discontinued (Adjust Sig - Block E-Cancel) Start: 04-28-2019 End: 09-27-2022 Insulin Lispro (Humalog Kwik pen Insulin) 100 unit/mL insulin pen Discontinued 10 U SC TWICE A DAY April 28, 2019 12:00am September 27, 2022 2:18pm Start: 08-19-2017 End: 04-28-2019 Insulin Lispro 100 UNIT/ML c artridge Discontinued 10 - 12 U SC TWICE A DAY August 19, 2017 1:00am April 28, 2019 8:06pm Start: 08-19-2017 End: 04-28-2019 Insulin Lispro Discontinued 10 - 12 UNIT SC TWICE A DAY August 19, 2017 1:00am April 28, 2019 8:06pm Start: 09-20-2016 HumaLOG KwikPe n 100 UNIT/ML Subcutaneous Solution Pen- injector Quantity: 30 Refills: 0 Start : 20-Sep-2016 Active Comment on above: Inject 14 Units subc utaneously twice daily with meals. Inject 16 Units subc utaneously twice daily with meals. insulin lispro 100 UNIT/ML Solution (2 sources) inject 1 [IU] by subcutaneous injection twice daily insulin lispro 100 UNIT/ML Solution Inject 16 Units under the skin 2 times daily. Patient takes14 units twice daily 0 Active insulin, aspart protamine, human 70 unt/ml / insulin, aspart, human 30 unt/ml injectable suspension (4 sources) Insulin Analog insulin aspart protamine-insulin aspart 70/30 (70-30) 100 UNIT/ML Suspension 10 Units by Subcutaneous route. 0 Active 3 ml insulin aspart, human 100 unt/ml pen injector (20 sources) Insulin Analog Start: 023 End: 025 NOVOLOG FLEXPEN U-100 INSULIN 100 unit/mL (3 mL) Inject 4 units with breakfast, use 6 units with lunch and dinner. PLUS SLIDING SCALE #1 (based on pre meal blood sugar) TDD~40 36 mL 3 10/28/2024 Active Start: 03-13-2023 insulin aspart U-100 (NOVOLOG FLEXPEN U-100 INSULIN) 100 unit/mL (3 mL) Inject 5 units with breakfast, use 8 units with lunch and dinner. PLUS SLIDING SCALE #1 (based on pre meal blood sugar) 5 Each 5 03/13/2023 Active Start: 12-06-2022 End: 03-13-2023 inject 5 doses by subcutaneous injection three times daily at mealtime insulin aspart U-100 (NOVOLOG FLEXPEN U-100 INSULIN) 100 unit/mL (3 mL) 8 units subcutaneously three times daily with meals. 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 5 Each 5 05/30/2022 12/06/2022 Discontinued inject 5 [IU] by sub cutaneous injection once daily in the morning insulin aspart 100 UNIT/ML Solution 5 Units by Subcutaneous route daily every morning. 0 Active inject 10 [IU] by [place] bcutaneous injection once daily at dinner insulin aspart 100 UNIT/ML Solution 10 Units by Subcutaneous route Daily (with dinner). 0 Active Comment on above: 16 units subcutaneou sly twice daily with meals. 12 units subcutaneou sly three times daily with meals. 8 units subcutaneous ly three times daily with meals. PLUS SLIDING SCALE #1 (based on pre meal blood sugar) Inject 5 units with breakfast, use 8 units with lunch and dinner. PLUS SLIDING SCALE #1 (based on pre meal blood sugar) Inject 4 units with breakfast, use 6 units with lunch and dinner. PLUS SLIDING SCALE #1 (based on pre meal blood sugar) labetalol hydrochloride 100 mg oral tablet (20 sources) beta-Adrenergic Reuben Start: 06-18-20 End: 11-21-19 25 take 1.5 tablets by mouth twice daily labetalol (TRANDATE) 100 mg tablet Take 1.5 tablets by mouth two times a day. 270 tablet 1 11/20/2024 Active Start: 09-27-2022 Labetalol 100 mg tablet Active 150 mg PO TWICE A DAY September 27, 2022 2:12pm Start: 09-27-2022 take 150 mg by mouth twice daily Labetalol Active 150 MG PO TWICE A DAY September 27, 2022 2:12pm Start: 05-30-2022 End: 12-25-2022 take 1.5 tablets by mouth twice daily labetalol (TRANDATE) 100 mg tablet Take 1.5 tablets by mouth twice daily. 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 60 tablet 11 01/22/2020 Active Start: 04-29-2019 End: 09-27-2022 take 1 tablet by mouth once daily in the evening Labetalol 100 mg tablet Discontinued 100 mg PO EVERY EVENING April 29, 2019 10:38am September 27, 2022 2:18pm Start: 04-28-2019 End: 04-29-2019 take 4 tablets by mouth twice daily Labetalol 100 mg tablet Discontinued 400 mg PO TWICE A DAY April 28, 2019 12:00am April 29, 2019 10:38am Start: 04-28-2019 End: 04-28-2019 take 1 tablet by mouth twice daily Labetalol 300 mg tablet Discontinued 300 mg PO TWICE A DAY April 28, 2019 12:00am April 28, 2019 8:16pm Start: 04-28-2019 End: 04-29-2019 take 400 mg by mouth twice daily Labetalol Discontinued 400 MG PO TWICE A DAY April 28, 2019 12:00am April 29, 2019 10:38am Start: 11-02-2017 End: 04-28-2019 take 3 tablets by mouth twice daily Labetalol 100 MG tablet Discontinued 300 mg PO TWICE A DAY November 02, 2017 12:00am April 28, 2019 8:15pm Start: 11-02-2017 End: 04-28-2019 take 300 mg by mouth twice daily Labetalol Discontinued 300 MG PO TWICE A DAY November 02, 2017 12:00am April 28, 2019 8:15pm Start: 07-10-2017 End: 11-02-2017 take 400 mg by mouth twice daily Labetalol Discontinued 400 MG PO TWICE A DAY July 10, 2017 1:00am November 02, 2017 11:04am Start: 01-25-2016 End: 11-02-2017 take 4 tablets by mouth twice daily Labetalol 100 mg tablet Discontinued 400 mg PO TWICE A DAY July 10, 2017 1:00am November 02, 2017 11:04am Start: 01-25-2016 take 1 tablet by roseanna th once daily Labetalol HCl - 100 MG Oral Tablet Take 1 tablet daily Quantity: 90 Refills: 0 Start : 25-Jan-2016 Active Comment on above: Take 1 tablet by roseanna th twice daily. Take 1.5 tablets by mouth twice daily. Take 1.5 tablets by mouth two times a day. lisinopril 5 mg oral tablet (20 sources) Angiotensin Converting Enzyme Inhibitor Start: 024 take 1 tablet by mouth once daily lisinopril (ZESTRIL) 5 mg tablet Take 5 mg by mouth once daily. 04/28/2024 Active mycophenolic acid 360 mg delayed release oral tablet (20 sources) Antimetabolite Immunosuppressant Start: 023 take 2 tablets by mouth every twelve hours Mycophenolate sodium (MYFORTIC) [address] tablet Indications: Kidney replaced by transplant , Immunosuppressed status Take 2 tablets by mouth every 12 hours. 360 tablet 3 08/08/2023 Active Start: 09-27-2022 take 720 mg by mouth every twelve hours Mycophenolate Sodium Active 720 MG PO Q12H September 27, 2022 12:00am Start: 09-08-2021 take 2 tablets by mo [facility] every twelve hours mycophenolate sodium (MYFORTIC) [address] tablet Indications: Kidney replaced by transplant , Immunosuppressed status Take 2 tablets by mouth every 12 hours. 120 tablet 11 09/08/2021 Active take 720 mg by mouth twice daily mycophenolate sodium DR (MYFORTIC) 360 mg TbEC Take 720 mg by mouth twice daily. Active Comment on above: Take 720 mg by mouth twice daily. naproxen sodium 220 mg oral capsule (4 sources) Nonsteroidal Anti-inflammatory Drug Naproxen Sodium 220 MG Cap take by mouth as needed. 0 Active NIFEdipine 30 mg osmotic 24 hr extended release oral tablet (20 sources) Dihydropyridine Calcium Channel Reuben Start: End: take 1 tablet by mouth once daily NIFEdipine ER (PROCARDIA XL) 30 mg 24 hr tablet Take 1 tablet by mouth once daily. 90 tablet 1 10/23/2024 Active Start: 09-27-2022 take 30 mg by mouth once daily Nifedipine Active 30 MG PO DAILY September 27, 2022 2:11pm Start: 11-13-2021 End: 04-25-2024 take 1 tablet by mouth once daily NIFEdipine ER (PROCARDIA XL) 30 mg 24 hr tablet Take 1 tablet by mouth once daily. 90 tablet 1 04/27/2024 Active Start: 11-07-2020 take 1 tablet by roseanna th once daily NIFEdipine ER (PROCARDIA XL) 30 mg 24 hr tablet Take 1 tablet by mouth once daily. 90 tablet 3 11/07/2020 Active Start: 02-26-2020 take 1 tablet by roseanna th once daily NIFEdipine 30 MG Tab SR 24 HR Indications: Essential hypertension Take 1 tablet by mouth daily. 90 tablet 3 02/26/2020 Active Start: 10-24-2017 take 1 tablet by roseanna th once daily NIFEdipine ER 90 MG Oral Tablet Extended Release 24 Hour Take 1 tablet daily Quantity: 30 Refills: 11 Clair Nation MD Start : 24-Oct-2017 Active Start: 09-09-2017 End: 09-27-2022 take 1 tablet by mouth once daily Nifedipine 60 MG tablet extended release 24 hr Discontinued 60 mg PO DAILY September 09, 2017 1:00am September 27, 2022 2:18pm take 1 tablet by roseanna th once daily NIFEdipine ER 60 MG Oral Tablet Extended Release 24 Hour TAKE 1 TABLET DAILY. Quantity: 30 Refills: 11 Active Comment on above: Take 1 tablet by roseanna th once daily. prochlorperazine 10 mg oral tablet (4 sources) Phenothiazine Start: 016 take 1 tablet by mouth every six hours as needed prochlorperazine 10 MG Tab take 1 tablet by mouth every 6 hours as needed. 30 tablet 0 10/25/2015 Active rosuvastatin calcium 10 mg oral tablet (20 sources) HMG-CoA Reductase Inhibitor Start: 01-21-2 017 End: 025 take 1 tablet by mouth once daily rosuvastatin (CRESTOR) 10 mg tablet Take 1 tablet by mouth once daily. 90 tablet 1 11/20/2024 Active Start: 04-07-2013 End: 07-10-2017 take 1 tablet by mouth once daily Rosuvastatin 40 MG tablet Discontinued 40 mg PO DAILY April 07, 2013 12:00am July 10, 2017 4:46pm rosuvastatin 40 MG Tab take 20 mg by mouth daily. 0 Active Comment on above: Take 1 tablet by roseanna th once daily. 24 hr tacrolimus 1 mg extended release oral tablet (20 sources) Calcineurin Inhibitor Immunosuppressant Start: 05-17-20 take 1 tablet by mouth once daily tacrolimus ER (ENVARSUS XR) 1 mg tablet Take 1 tablet by mouth once daily. 05/17/2021 Active Start: 12-23-2020 End: 11-22-2023 take 1 tablet by mouth every twenty-four hours Tacrolimus (ENVARSUS XR) 1 MG Tab SR 24 HR Indications: Kidney replaced by transplant Take 1 tablet by mouth daily. 90 tablet 1 11/22/2023 Active Comment on above: Take 1 tablet by roseanna th once daily. Completed/Discontinued Medications Medication Drug Class(es) Dates Sig (Normalized) Sig (Original) acetaminophen 325 mg / oxyCODONE hydrochloride 5 mg oral tablet (17 sources) Opioid Agonist Start: 06-07-2015 End: 07-10-2017 Oxycodone-Acetamino phen 1 TABLET tablet Discontinued 1 - 2 {tbl} PO EVERY 4 HOURS NEEDED as needed for Pain 60 June 07, 2015 1:00am July 10, 2017 4:46pm Start: 06-07-2015 End: 07-10-2017 take 1 tablet by mouth every four hours as needed Oxycodone-Acetaminophen Discontinued 1 - 2 TABLET PO EVERY 4 HOURS NEEDED 60 June 07, 2015 1:00am July 10, 2017 4:46pm B Complex With C 20-Folic Ac id 1 CAPSULE capsule (1 source) Start: 11-02-2017 End: 09-27-2022 B Complex With C 20-Folic Ac id 1 CAPSULE capsule Discontinued 1 NMA PO DAILY November 02, 2017 12:00am September 27, 2022 2:16pm Blood-Glucose Meter,Continuo us (DEXCOM G7 UNPAID INTERN) misc (12 sources) Start: 12-26-2022 End: 03-13-2023 Blood-Glucose Meter,Continuo us (DEXCOM G7 UNPAID INTERN) misc Dispense one ent nurse kit. E11.9 USE FOR CONTINUOUS GLUCOSE MONITORING. Multiple insulin injections. 1 Each 0 12/26/2022 03/13/2023 Discontinued Start: 12-26-2022 Blood-Glucose Meter,Continuous (DEXCOM G7 UNPAID INTERN) misc Dispense one ent nurse kit. E11.9 USE FOR CONTINUOUS GLUCOSE MONITORING. Multiple insulin injections. 1 Each 0 12/26/2022 Active Comment on above: Dispense one receive r kit. E11.9 USE FOR CONTINUOUS GLUCOSE MONITORING. Multiple insulin injections. Blood-Glucose Sensor (DEXCOM G7 SENSOR) william (12 sources) Start: 12-26-2022 End: 03-13-2023 Blood-Glucose Sensor (DEXCOM G7 SENSOR) william Change sensor every 10 days. USE FOR CONTINUOUS GLUCOSE MONITORING. MULTIPLE INSULIN INJECTIONS E11.9 10 Each 3 12/26/2022 03/13/2023 Discontinued Start: 12-26-2022 Blood-Glucose Sensor (DEXCOM G7 SENSOR) william Change sensor every 10 days. USE FOR CONTINUOUS GLUCOSE MONITORING. MULTIPLE INSULIN INJECTIONS E11.9 10 Each 3 12/26/2022 Active Comment on above: Change sensor every 10 days. USE FOR CONTINUOUS GLUCOSE MONITORING. MULTIPLE INSULIN INJECTIONS E11.9 calcitriol 0.11190 mg oral capsule (19 sources) Vitamin D3 Analog Start: 8 End: 0 take 0.5 ug by mouth once daily Calcitriol Discontinued 0.5 MCG PO DAILY July 10, 2017 1:00am September 03, 2019 11:11am Start: 08-02-2016 End: 09-03-2019 take 2 capsules by mouth once daily Calcitriol 0.25 mcg capsule Discontinued 0.5 ug PO DAILY July 10, 2017 1:00am September 03, 2019 11:11am calcium acetate 667 mg oral capsule (20 sources) Start: 04-29-2019 End: 09-27-2022 Calcium Acetate(Phosphat Bin d) 667 mg capsule Discontinued 2001 mg PO THREE TIMES A DAY April 29, 2019 10:36am September 27, 2022 2:15pm Start: 04-29-2019 End: 09-27-2022 take 2001 mg by mouth three times daily Calcium Acetate(Phosphat Bind) Discontinued 2000 MG PO THREE TIMES A DAY April 29, 2019 10:36am September 27, 2022 2:15pm Start: 09-16-2017 End: 04-29-2019 Calcium Acetate(Phosphat Bin d) 667 MG capsule Discontinued 1334 mg PO 3 TIMES DAILY WITH MEALS September 16, 2017 12:00am April 29, 2019 10:39am Start: 09-16-2017 End: 04-29-2019 take 1334 mg by mouth three times daily at mealtime Calcium Acetate(Phosphat Bind) Discontinued 1334 MG PO 3 TIMES DAILY WITH MEALS September 16, 2017 12:00am April 29, 2019 10:39am Calcium Acetate (Phos Binder) 667 MG Oral Capsule Refills: 0 Active cilgavimab injection 300 mg (2 sources) Start: 05-21-2022 End: 05-21-2022 cilgavimab injection 300 mg Start: 11-17-2021 End: 11-17-2021 cilgavimab injection 300 mg clindamycin 150 mg oral capsule (17 sources) Lincosamide Antibacterial Start: 06-07-2015 End: 07-10-2017 take 2 capsules by mouth three times daily Clindamycin Hcl 150 MG capsule Discontinued 300 mg PO THREE TIMES A DAY 60 June 07, 2015 1:00am July 10, 2017 4:46pm Start: 06-07-2015 End: 07-10-2017 take 300 mg by mouth three times daily Clindamycin Hcl Discontinued 300 MG PO THREE TIMES A DAY 60 June 07, 2015 1:00am July 10, 2017 4:46pm Dapsone (11 sources) Sulfone End: 05-30-2022 DAPSONE ORAL Take by mouth. 0 05/30/2022 Discontinued DAPSONE ORAL Geoffrey e by mouth. 0 Active Comment on above: Take by mouth. docusate sodium 100 mg oral capsule (20 sources) Start: 06-07-2015 End: 07-10-2017 take 1 capsule by mouth twice daily as needed for constipation Docusate Sodium 100 MG capsule Discontinued 100 mg PO TWICE DAILY NEEDED as needed for Constipation 10 June 07, 2015 1:00am July 10, 2017 4:46pm End: 05-30-2022 take 2 capsules by mouth twice daily docusate sodium (COLACE) 100 mg capsule Take 200 mg by mouth twice daily. 0 05/30/2022 Discontinued Comment on above: Take 200 mg by mouth twice daily. furosemide 40 mg oral tablet (20 sources) Loop Diuretic Start: 04-28-2019 End: 09-27-2022 take 1 tablet by mouth twice daily Furosemide 40 mg tablet Discontinued 40 mg PO TWICE A DAY April 28, 2019 12:00am September 27, 2022 2:16pm Start: 08-15-2017 take 1 tablet by roseanna th twice daily Furosemide 40 MG Oral Tablet Take 1 tablet twice daily Quantity: 180 Refills: 0 Start : 15-Aug-2017 Active Start: 07-10-2017 End: 04-28-2019 take 2 tablets by mouth twice daily Furosemide (Lasix) 20 mg tablet Discontinued 40 mg PO TWICE A DAY July 10, 2017 1:00am April 28, 2019 8:05pm take 1 tablet by roseanna th twice daily furOSEmide 20 MG Tab take 20 mg by mouth 2 times daily. 0 Active linaclotide 0.145 mg oral capsule (17 sources) Guanylate Cyclase-C Agonist Start: 09-03-2019 End: 09-27-2022 take 1 capsule by mouth once daily Linaclotide (Linzess) 145 mcg capsule Discontinued 145 ug PO DAILY September 03, 2019 1:00am September 27, 2022 2:16pm losartan potassium 100 mg oral tablet (20 sources) Angiotensin 2 Receptor Reuben Start: 04-28-2019 End: 09-27-2022 take 1 tablet by mouth once daily Losartan 100 mg tablet Discontinued 100 mg PO DAILY April 28, 2019 12:00am September 27, 2022 2:16pm Start: 07-31-2017 take 1 tablet by roseanna th once daily Losartan Potassium 100 MG Oral Tablet Take 1 tablet daily on non IHD days Quantity: 30 Refills: 0 Start : 31-Jul-2017 Active Start: 07-10-2017 End: 04-28-2019 take 2 tablets by mouth once daily Losartan 50 mg tablet Discontinued 100 mg PO DAILY July 10, 2017 1:00am April 28, 2019 8:07pm Start: 07-10-2017 End: 04-28-2019 take 100 mg by mouth once daily Losartan Discontinued 100 MG PO DAILY July 10, 2017 1:00am April 28, 2019 8:07pm metOLazone 5 mg oral tablet (2 sources) Thiazide-like Diuretic take 1 tablet by mouth once daily metOLazone 5 MG Oral Tablet Take 1 tablet daily Refills: 0 DO Active polysaccharide iron complex 150 mg oral capsule (19 sources) Start: 018 End: 019 take 1 capsule by mouth once daily at mealtime Polysaccharide Iron Complex 150 MG capsule Discontinued 150 mg PO DAILY WITH MEALS August 19, 2017 1:00am April 29, 2019 10:38am Ferrex 150 CAPS TAKE 1 CAPSULE Daily Refills: 0 DO Active promethazine hydrochloride 25 mg oral tablet (17 sources) Phenothiazine Start: 06-07-2015 End: 07-10-2017 take 1 tablet by mouth every four hours as needed for nausea Promethazine 25 MG tablet Discontinued 25 mg PO EVERY 4 HOURS NEEDED as needed for Nausea June 07, 2015 1:00am July 10, 2017 4:46pm quinapril 40 mg oral tablet (20 sources) Angiotensin Converting Enzyme Inhibitor Start: 04-07-2013 End: 07-10-2017 take 1 tablet by mouth once daily Quinapril 40 MG tablet Discontinued 40 mg PO DAILY April 07, 2013 12:00am July 10, 2017 4:46pm repaglinide 2 mg oral tablet (17 sources) Glinide Start: 04-07-2013 End: 05-27-2013 take 1 tablet by mouth three times daily Repaglinide 2 MG tablet Discontinued 4 mg PO THREE TIMES A DAY April 07, 2013 12:00am May 27, 2013 9:29am Start: 04-07-2013 End: 05-27-2013 take 4 mg by mouth three times daily Repaglinide Discontinued 4 MG PO THREE TIMES A DAY April 07, 2013 12:00am May 27, 2013 9:29am rOPINIRole 1 mg oral tablet (20 sources) Nonergot Dopamine Agonist Start: 04-01-2019 End: 09-03-2019 take 1 tablet by mouth at bedtime Ropinirole 1 mg tablet Discontinued 1 mg PO AT BEDTIME April 01, 2019 12:00am September 03, 2019 11:11am SITagliptin 50 mg oral tablet (17 sources) Dipeptidyl Peptidase 4 Inhibitor Start: 04-07-2013 End: 05-27-2013 take 1 tablet by mouth once daily Sitagliptin Phosphate (Januvia) 50 MG tablet Discontinued 50 mg PO DAILY April 07, 2013 12:00am May 27, 2013 9:29am tixagevimab injection 300 mg (2 sources) Start: 05-21-2022 End: 05-21-2022 tixagevimab injection 300 mg Start: 11-17-2021 End: 11-17-2021 tixagevimab injection 300 mg triamcinolone acetonide 1 mg/ml topical cream (20 sources) Corticosteroid Start: 11-07-2020 triamcinolone acetonide (KENALOG) 0.1 % cream Indications: Stasis dermatitis of both legs Apply 1 application to affected area once daily. Apply to affected area as needed for itching. Location: lower legs 30 g 2 11/07/2020 Active Comment on above: Apply 1 application to affected area once daily. Apply to affected area as needed for itching. Location: lower legs Problems Active Problems Problem Classification Problem Date Documented Date Episodic/Chronic Cardiac dysrhythmias (17 sources) Bradycardia; Translations: [Bradycardia, unspecified] 04-28-2019 Episodic Chronic kidney disease (20 sources) End-stage renal disease; Translations: [Anemia] Onset: 02-28-2015 Resolved: 06-06-2020 05-17-2021 Chronic Chronic kidney disease (2 sources) Chronic kidney disease; Translations: [Chronic kidney disease, stage 3a] Onset: 08-03-2024 Chronic ulcer of skin (7 sources) Non-pressure chronic ulcer of other part of right foot with fat layer exposed; Translations: [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 layer exposed] 01-03-2023 Chronic Deficiency and other anemia (1 source) Anemia in chronic kidney disease; Translations: [Anemia in chronic kidney disease] Onset: 01-27-2025 Chronic Deficiency and other anemia (5 sources) Iron deficiency anemia; Translations: [Anemia, iron deficiency] Episodic Deficiency and other anemia (17 sources) Chronic anemia; Translations: [Anemia, unspecified] 04-28-2019 Episodic Diabetes mellitus with complications (20 sources) Disorder of nervous system due to type 2 diabetes mellitus; Translations: [Type 2 diabetes mellitus with other diabetic neurological complication] Onset: 02-13-2013 Resolved: 06-06-2020 05-17-2021 Chronic Diabetes mellitus without complication (15 sources) Diabetes mellitus; Translations: [Type 2 diabetes mellitus with diabetic polyneuropathy] Onset: 10-20-2024 01-03-2023 Chronic Disorders of lipid metabolism (20 sources) Hyperlipidemia; Translations: [Mixed hyperlipidemia] 05-17-2021 Chronic Essential hypertension (20 sources) Benign essential hypertension; Translations: [Essential (primary) hypertension] 05-17-2021 Chronic Comment on above: CONTROLLED WITH MED Fracture of upper limb (1 source) Open fracture of bone of wrist and/or hand 10-29-2022 Episodic Comment on above: ORIF Hyperplasia of prostate (20 sources) Nocturia due to benign prostatic hypertrophy; Translations: [Benign prostatic hyperplasia with lower urinary tract symptoms] Onset: 03-06-2012 Chronic Hypertension with complications and secondary hypertension (5 sources) Renal hypertension; Translations: [Hypertension secondary to other renal disorders] Onset: 11-20-2019 11-20-2019 Chronic Immunity disorders (4 sources) Patient immunocompromised; Translations: [Immunodeficiency, unspecified] Onset: 11-03-2019 11-03-2019 Chronic Infective arthritis and osteomyelitis (except that caused by tuberculosis or sexually transmitted disease) (9 sources) Osteomyelitis; Translations: [Osteomyelitis, unspecified] 01-03-2023 Chronic Nutritional deficiencies (20 sources) Vitamin D deficiency; Translations: [Vitamin D deficiency, unspecified] Onset: 07-31-2017 05-17-2021 Chronic Osteoarthritis (20 sources) Osteoarthritis of left knee joint; Translations: [Unilateral primary osteoarthritis, left knee] Onset: 02-16-2011 05-17-2021 Chronic Other aftercare (1 source) Transplant follow-up; Translations: [Encounter for aftercare following other organ transplant] 12-18-2023 Chronic Other aftercare (2 sources) Surgical follow-up; Translations: [Encounter for change or removal of surgical wound dressing] 01-24-2023 Episodic Other aftercare (1 source) Taking high risk medication; Translations: [Other ferry terminal agent (current) drug therapy] 12-18-2023 Episodic Other and unspecified benign neoplasm (11 sources) History of polyp of colon; Translations: [Personal history of colonic polyps] 09-27-2022 Episodic Other and unspecified benign neoplasm (6 sources) Personal history of colonic polyps; Translations: [Personal history of colonic polyps] 09-27-2022 Episodic Other ear and sense organ disorders (20 sources) Hearing loss; Translations: [Unspecified hearing loss, unspecified ear] Onset: 09-10-2012 05-17-2021 Chronic Other endocrine disorders (1 source) Secondary hyperparathyroidism, not elsewhere classified; Translations: [Secondary hyperparathyroidism, not elsewhere classified] Onset: 01-27-2025 Chronic Other hereditary and degenerative nervous system [...] Episodic Other nutritional; endocrine; and metabolic disorders (3 sources) Obese class I; Translations: [Obesity, unspecified] Onset: 10-21-2019 10-22-2019 Chronic Residual codes; unclassified (1 source) On waiting list for organ transplant; Translations: [Awaiting organ transplant status] Chronic Residual codes; unclassified (16 sources) Awaiting organ transplant status; Translations: [Patient on waiting list for kidney transplant] 04-28-2019 Chronic Skin and subcutaneous tissue infections (16 sources) Infection of foot; Translations: [Local infection of the skin and subcutaneous tissue, unspecified] 01-03-2023 Episodic Superficial injury; contusion (17 sources) Blister of foot; Translations: [Blister (nonthermal), right great toe, subsequent encounter] 04-28-2019 Episodic Past or Other Problems Problem Classification Problem Date Documented Date Episodic/Chronic Administrative/social admission (20 sources) Advance directive discussed with patient; Translations: [Other specified counseling] Onset: 11-16-2021 Episodic Fracture of upper limb (20 sources) Closed fracture of shaft of ulna; Translations: [Unspecified fracture of shaft of left ulna, subsequent encounter for closed fracture with nonunion] Onset: 11-04-2015 Resolved: 11-20-2019 11-04-2015 Episodic Immunizations and screening for infectious disease (1 source) Encounter for immunization; Translations: [Encounter for immunization] Onset: 06-23-2024 Episodic Other aftercare (1 source) 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; Translations: [Diabetes mellitus treated with insulin (HCC)] Onset: 10-28-2024 Episodic Other connective tissue disease (20 sources) [...] of prostate, unspecified] Onset: 11-06-2021 Episodic Other non-traumatic joint disorders (20 sources) Pain in right knee; Translations: [Pain in joint, lower leg] Onset: 12-05-2018 Resolved: 06-06-2020 06-06-2020 Episodic Other nutritional; endocrine; and metabolic disorders (20 sources) Hypocalcemia; Translations: [Hypocalcemia] Onset: 07-31-2017 Resolved: 03-07-2018 03-07-2018 Chronic Other screening for suspected conditions (not mental disorders or infectious disease) (20 sources) Patient encounter status; Translations: [Encounter for screening for malignant neoplasm of intestinal tract, unspecified] Onset: 10-01-2022 10-01-2022 Episodic Other skin disorders (20 sources) Sebaceous cyst of skin; Translations: [Sebaceous cyst] Onset: 04-24-2007 Resolved: 09-20-2016 09-20-2016 Episodic Residual codes; unclassified (3 sources) Awaiting transplantation of kidney; Translations: [Awaiting organ transplant status] Onset: 10-22-2019 Resolved: 11-20-2019 11-20-2019 Chronic Residual codes; unclassified (5 sources) Other specified personal risk factors, not [...] evaluation for ESRD (end stage renal disease)] Unclassified (16 sources) Open fracture of bone of wrist and/or hand; Translations: [Open fracture of right upper extremity at wrist or hand level] 12-19-2018 NEGATED: Highlighted row has not occurred!Residual codes; unclassified (20 sources) Disease Episodic Results Test Name Value Interpretation Reference Range Facility [facility] 02-19-2025 CNPN Telephone ([facility]) -- RODRI GALE ([id number]) 1955 M Date Time Provider Department 02/19/25 CLARIBEL COPE During your visit today, we recorded the following information about you: Candelaria Burrell LPN 02/19/2025 11:57 AM Signed [facility] called to see if office had received forms to approve diabetic shoes. Jazlyn states that she has sent 3 time. If you have any question please call Jazlyn at [phone] select option 3. ARGENIS Tompkins Jennifer, MA 02/19/2025 1:34 PM Signed Claribel Cope CNP does not complete forms for diabetic shoes. This was forwarded to PCP office. See telephone encounter dated 01/29/25. Lisandra Velásquez MA Allergies As of Date: 02/19/2025 Noted Allergy Reaction BACTRIM (SULFAMETHOXAZOLE) 02/13/2013 4 - Hives METFORMIN 01/02/2008 2 - Rash LIPITOR (ATORVASTATIN CALCIUM) 10/10/2011 14 - Other: See Comments Comments: myalgia NORVASC (AMLODIPINE BESYLATE) 08/31/2014 7 - Swelling Date Reviewed: 10/28/2024 Reviewed by: Shana Bedolla, DEMETRIO - Fully Assessed Prescriptions as of 02/19/2025 - Insulin [place], Disposable, (BD ULTRAFINE III MINI PEN) 31 gauge x /16 use four times/day - labetalol (TRANDATE) 100 mg tablet Take 1.5 tablets by mouth two times a day. - finasteride (PROSCAR) 5 mg tablet Take 1 tablet by mouth once daily. - rosuvastatin (CRESTOR) 10 mg tablet Take 1 tablet by mouth once daily. - blood sugar diagnostic (TRUE METRIX GLUCOSE TEST STRIP) test strip Use as instructed - Test blood sugar three times daily. E11.9 Insulin: yes - insulin glargine (LANTUS SOLOSTAR U-100 INSULIN) 100 unit/mL (3 mL) Inject 25 Units subcutaneously daily at bedtime. - NOVOLOG FLEXPEN U-100 INSULIN 100 unit/mL (3 mL) Inject 4 units with breakfast, use 6 units with lunch and dinner. PLUS SLIDING SCALE #1 (based on pre meal blood sugar) TDD~40 - NIFEdipine ER (PROCARDIA XL) 30 mg 24 hr tablet Take 1 tablet by mouth once daily. - FARXIGA 10 mg tablet Take 10 mg by mouth once daily. - lisinopril (ZESTRIL) 5 mg tablet Take 5 mg by mouth once daily. - Cholecalciferol, Vitamin D3, 50 mcg (2,000 unit) cap Take by mouth. OTC - take one tablet daily - tacrolimus ER (ENVARSUS XR) 1 mg tablet Take 1 tablet by mouth once daily. - mycophenolate sodium DR (MYFORTIC) 360 mg TbEC Take 720 mg by mouth twice daily. - aspirin, enteric coated (ASPIRIN, ENTERIC COATED) 81 mg EC tablet Take 81 mg by mouth once daily. - Lancets (ONE TOUCH DELICA) lancets Test blood sugar(s) 4 daily. Dx: 250.02 Insulin: Yes Problem List As Of Date 02/19/2025 Noted Resolved Essential hypertension, benign [I10] Hyperlipidemia, mixed [E78.2] Sebaceous cyst [L72.3] 04/24/2007 09/20/2016 Erectile dysfunction [N52.9] 02/24/2010 Osteoarthritis of left knee [M17.12] 02/16/2011 BPH (benign prostatic hyperplasia) [N40.0] 03/06/2012 Hearing loss [H91.90] 09/10/2012 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*02/13/2013 DM (diabetes mellitus) type II uncontrolled wit*08/31/2014 08/21/2018 Chronic 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 (HCC*02/28/2015 06/06/2020 Fracture of forearm, closed [S52.90XA] 01/25/2016 09/20/2016 Type 2 diabetes mellitus with right eye affecte*09/20/2016 Essential tremor [G25.0] 09/20/2016 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 [N18.2*07/12/2017 Hypocalcemia [E83.51] 07/31/2017 03/07/2018 Vitamin D deficiency [E55.9] 07/31/2017 End stage kidney disease (HCC) [N18.6] 11/06/2017 06/06/2020 Type 2 diabetes mellitus with left eye affected*08/21/2018 Restless leg syndrome [G25.81] 12/05/2018 Chronic pain of right knee [M25.561, G89.29] 12/05/2018 06/06/2020 Diabetic ulcer of toe of right foot associated *12/05/2018 06/06/2020 Type 2 diabetes mellitus with stage 2 chronic k*08/21/2019 Renal transplant recipient [Z94.0] 11/23/2019 Witnessed episode of apnea [R06.81] 11/23/2019 Ex-smoker [Z87.891] 05/17/2021 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) [E13*05/17/2021 Diabetic eye exam (HCC) [Z01.00, E11.9] 10/09/2021 Prostate disorder [N42.9] 11/06/2021 Medicare annual wellness visit, subsequent [Z00*11/16/[address] [Z78.9] 11/16/2021 Advance directive discussed with patient [Z71.8*11/16/2021 Right rotator cuff tear [M75.101] 11/16/2021 Screening for colon cancer [Z12.11] 10/01/2022 Diabetic foot (HCC) [E11.8] 06/23/2024 Encounter Status:Closed by LISANDRA VELÁSQUEZ on 02/19/25 [facility] 01-29-2025 [facility] BALJINDERRODRI Garza ([id number]) 1955 M Date Time Provider Department 01/29/25 ALO AVINA During your visit today, we recorded the following information about you: Rj Menard LPN 01/29/2025 6:50 AM Signed Received fax from [facility] needing forms completed for Medicare Compliance fro pt's Diabetic shoes/inserts. Forms on PCP's desk. Please fax back to [phone]. ARGENIS Cody Jeffrey A, MD 02/02/2025 9:53 AM Signed Forms ready to be returned. Aurora Jules MA 02/02/2025 11:44 AM Signed Forms completed by PCP and faxed back to number below. Aurora Jules MA Allergies As of Date: 01/29/2025 Noted Allergy Reaction BACTRIM (SULFAMETHOXAZOLE) 02/13/2013 4 - Hives METFORMIN 01/02/2008 2 - Rash LIPITOR (ATORVASTATIN CALCIUM) 10/10/2011 14 - Other: See Comments Comments: myalgia NORVASC (AMLODIPINE BESYLATE) 08/31/2014 7 - Swelling Date Reviewed: 10/28/2024 Reviewed by: Shana Bedolla, RN - Fully Assessed Reason for Visit: Forms [913] Prescriptions as of 02/02/2025 - Insulin [place], Disposable, (BD ULTRAFINE III MINI PEN) 31 gauge x 3/16 use four times/day - labetalol (TRANDATE) 100 mg tablet Take 1.5 tablets by mouth two times a day. - finasteride (PROSCAR) 5 mg tablet Take 1 tablet by mouth once daily. - rosuvastatin (CRESTOR) 10 mg tablet Take 1 tablet by mouth once daily. - blood sugar diagnostic (TRUE METRIX GLUCOSE TEST STRIP) test strip Use as instructed - Test blood sugar three times daily. E11.9 Insulin: yes - insulin glargine (LANTUS SOLOSTAR U-100 INSULIN) 100 unit/mL (3 mL) Inject 25 Units subcutaneously daily at bedtime. - NOVOLOG FLEXPEN U-100 INSULIN 100 unit/mL (3 mL) Inject 4 units with breakfast, use 6 units with lunch and dinner. PLUS SLIDING SCALE #1 (based on pre meal blood sugar) TDD~40 - NIFEdipine ER (PROCARDIA XL) 30 mg 24 hr tablet Take 1 tablet by mouth once daily. - FARXIGA 10 mg tablet Take 10 mg by mouth once daily. - lisinopril (ZESTRIL) 5 mg tablet Take 5 mg by mouth once daily. - Cholecalciferol, Vitamin D3, 50 mcg (2,000 unit) cap Take by mouth. OTC - take one tablet daily - tacrolimus ER (ENVARSUS XR) 1 mg tablet Take 1 tablet by mouth once daily. - mycophenolate sodium DR (MYFORTIC) 360 mg TbEC Take 720 mg by mouth twice daily. - aspirin, enteric coated (ASPIRIN, ENTERIC COATED) 81 mg EC tablet Take 81 mg by mouth once daily. - Lancets (ONE TOUCH DELICA) lancets Test blood sugar(s) 4 daily. Dx: 250.02 Insulin: Yes Problem List As Of Date 01/29/2025 Noted Resolved Essential hypertension, benign [I10] Hyperlipidemia, mixed [E78.2] Sebaceous cyst [L72.3] 04/24/2007 09/20/2016 Erectile dysfunction [N52.9] 02/24/2010 Osteoarthritis of left knee [M17.12] 02/16/2011 BPH (benign prostatic hyperplasia) [N40.0] 03/06/2012 Hearing loss [H91.90] 09/10/2012 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*02/13/2013 DM (diabetes mellitus) type II uncontrolled wit*08/31/2014 08/21/2018 Chronic 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 (HCC*02/28/2015 06/06/2020 Fracture of forearm, closed [S52.90XA] 01/25/2016 09/20/2016 Type 2 diabetes mellitus with right eye affecte*09/20/2016 Essential tremor [G25.0] 09/20/2016 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 [N18.2*07/12/2017 Hypocalcemia [E83.51] 07/31/2017 03/07/2018 Vitamin D deficiency [E55.9] 07/31/2017 End stage kidney disease (HCC) [N18.6] 11/06/2017 06/06/2020 Type 2 diabetes mellitus with left eye affected*08/21/2018 Restless leg syndrome [G25.81] 12/05/2018 Chronic pain of right knee [M25.561, G89.29] 12/05/2018 06/06/2020 Diabetic ulcer of toe of right foot associated *12/05/2018 06/06/2020 Type 2 diabetes mellitus with stage 2 chronic k*08/21/2019 Renal transplant recipient [Z94.0] 11/23/2019 Witnessed episode of apnea [R06.81] 11/23/2019 Ex-smoker [Z87.891] 05/17/2021 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) [E13*05/17/2021 Diabetic eye exam (HCC) [Z01.00, E11.9] 10/09/2021 Prostate disorder [N42.9] 11/06/2021 Medicare annual wellness visit, subsequent [Z00*11/16/[address] [Z78.9] 11/16/2021 Advance directive discussed with patient [Z71.8*11/16/2021 Right rotator cuff tear [M75.101] 11/16/2021 Screening for colon cancer [Z12.11] 10/01/2022 Diabetic foot (HCC) [E11.8] 06/23/2024 Encounter Status:Closed by AURORA JULES on 02/02/25 Normal [facility] Microalb:Creat Ratio,Random URon 12-24-2024 MALB:CREAT 488.2 mg/g CRE Normal [facility] Comment on above: Result Comment: AMENDED REPORT 12/24/24 1223 MALB:CREAT previously reported as: 4881.8 mg/g CRE Performed By: #### L 500.2500, L501.0900 #### [facility] Laboratory [facility] [place], [address] Tacrolimus (Prograf)on 11-25 Tacrolimus (Bld) [Mass/Vol] 4.8 ng/mL Low 5.0-20.0 [facility] Comment on above: Order Comment: Test( s) [id number] ([id number]), Blood was developed and its performance characteristics determined by [employer]. It has not been cleared or approved by the Food and Drug Administration. Result Comment: Targ et steady state trough concentration for Tacrolimus varies based on type of organ transplant immunosuppressive protocol and other patient specific factors. Tacrolimus trough concentrations should be interpreted in conjunction with clinical assessments of rejection and tolerability. Values obtained with different assay methods cannot be used interchangeably due to differences in assay methods and cross-reactivty with metabolites, nor should correction factors be applied. Therefore, consistent use of one assay for individual patients is recommended. Detection Limit = 0.5 ng/mL Performed by LC-MS/MS technology. Performed at: [address] [id number] Brass Pourer: Martínez Orellana MD, Phone: [phone] Performed By: #### L 501.0900, L501.1400, L3380.1000, L500.2500, L509.1000, L506.1001, L100.0100 #### [facility] [facility] [address] [place], [place], [id number] Basic Metabolic Profile (BMP )on 11-23-2024 BUN/CRE 17.0 RATIO Normal 10-20 [facility] Comment on above: Performed By: #### L 501.0900, L501.1400, L3380.1000, L500.2500, L509.1000, L506.1001, L100.0100 #### [facility] [address] [place], [place], [id number] Calcium [Mass/Vol] 8.8 mg/dL Normal 7.6-11.0 [facility] Comment on above: Performed By: #### L 501.0900, L501.1400, L3380.1000, L500.2500, L509.1000, L506.1001, L100.0100 #### [facility] [address] [place], [address] Chloride [Moles/Vol] 110 mmol/L High 98-108 [facility] Comment on above: Performed By: #### L 501.0900, L501.1400, L3380.1000, L500.2500, L509.1000, L506.1001, L100.0100 #### [facility] [address] [place], [address] CO2 [Moles/Vol] 19.5 mmol/L Low 21.0-32.0 [facility] Comment on above: Performed By: #### L 501.0900, L501.1400, L3380.1000, L500.2500, L509.1000, L506.1001, L100.0100 #### [facility] [address] [place], [address] GAP 12 Normal 5-15 [facility] Comment on above: Performed By: #### L 501.0900, L501.1400, L3380.1000, L500.2500, L509.1000, L506.1001, L100.0100 #### [facility] [address] [place], [address] GFR/1.73 sq M.predicted among non-blacks MDRD (S/P/Bld) [Vol rate/Area] 61 mL/min/{1.73_m2} Normal >60 [facility] Comment on above: Result Comment: mL/m in/1.73m2 CKD-EPI Creatinine Equation (2020) Performed By: #### L 501.0900, L501.1400, L3380.1000, L500.2500, L509.1000, L506.1001, L100.0100 #### [facility] [address] [place], [address] Potassium [Moles/Vol] 3.9 mmol/L Normal 3.3-5.1 [facility] Comment on above: Performed By: #### L 501.0900, L501.1400, L3380.1000, L500.2500, L509.1000, L506.1001, L100.0100 #### [facility] [address] [place], [address] Sodium [Moles/Vol] 141 mmol/L Normal 133-145 [facility] Comment on above: Performed By: #### L 501.0900, L501.1400, L3380.1000, L500.2500, L509.1000, L506.1001, L100.0100 #### [facility] [address] [place], [address] Creatinine [Mass/Vol] 1.27 mg/dL High 0.70-1.20 [facility] Comment on above: Performed By: #### L 501.0900, L501.1400, L3380.1000, L500.2500, L509.1000, L506.1001, L100.0100 #### [facility] [address] [place], [address] Glucose [Mass/Vol] 113 mg/dL High 70-99 [facility] Comment on above: Performed By: #### L 501.0900, L501.1400, L3380.1000, L500.2500, L509.1000, L506.1001, L100.0100 #### [facility] [address] [place], [address] Urea nitrogen [Mass/Vol] 22 mg/dL High 4-19 [facility] Comment on above: Performed By: #### L 501.0900, L501.1400, L3380.1000, L500.2500, L509.1000, L506.1001, L100.0100 #### [facility] [address] [place], [address] CBC W/Diff, Automatedon 05-1 Absolute Lymph 0.91 X10 3/uL Normal 0.83-4.51 [facility] Comment on above: Performed By: #### L 501.0900, L501.1400, L3380.1000, L500.2500, L509.1000, L506.1001, L100.0100 #### [facility] [address] [place], [address] Absolute Neut 4.4 X10 3/uL Normal 2.0-7.7 [facility] Comment on above: Performed By: #### L 501.0900, L501.1400, L3380.1000, L500.2500, L509.1000, L506.1001, L100.0100 #### [facility] [address] [place], [address] Basophils/100 WBC (Bld) 0.5 % Normal 0-1 [facility] Comment on above: Performed By: #### L 501.0900, L501.1400, L3380.1000, L500.2500, L509.1000, L506.1001, L100.0100 #### [facility] [address] [place], [address] Eosinophils/100 WBC (Bld) 1.3 % Normal 0-5 [facility] Comment on above: Performed By: #### L 501.0900, L501.1400, L3380.1000, L500.2500, L509.1000, L506.1001, L100.0100 #### [facility] [address] [place], [address] Erythrocyte distribution width (RBC) [Ratio] 13.1 % Normal 11.6-14.6 [facility] Comment on above: Performed By: #### L 501.0900, L501.1400, L3380.1000, L500.2500, L509.1000, L506.1001, L100.0100 #### [facility] [address] [place], [address] Hematocrit (Bld) [Volume fraction] 34.1 % Low 40-54 [facility] Comment on above: Performed By: #### L 501.0900, L501.1400, L3380.1000, L500.2500, L509.1000, L506.1001, L100.0100 #### [facility] [address] [place], [address] Hemoglobin (Bld) [Mass/Vol] 11.1 g/dL Low 13.0-16.5 [facility] Comment on above: Performed By: #### L 501.0900, L501.1400, L3380.1000, L500.2500, L509.1000, L506.1001, L100.0100 #### [facility] [address] [place], [address] IG% 0.300 Normal 0.0-0.9 [facility] Comment on above: Result Comment: IG% - Immature Granulocytes (promyelocytes, myelocytes and metamyelocytes) > 1% indicates that a LEFT SHIFT is Present. Performed By: #### L 501.0900, L501.1400, L3380.1000, L500.2500, L509.1000, L506.1001, L100.0100 #### [facility] [address] [place], [address] Lymphocytes/100 WBC (Bld) 15.0 % Low 19-41 [facility] Comment on above: Performed By: #### L 501.0900, L501.1400, L3380.1000, L500.2500, L509.1000, L506.1001, L100.0100 #### [facility] [address] [place], [address] MCH (RBC) [Entitic mass] 28.0 pg Normal 27.0-32.0 [facility] Comment on above: Performed By: #### L 501.0900, L501.1400, L3380.1000, L500.2500, L509.1000, L506.1001, L100.0100 #### [facility] [address] [place], [address] MCHC (RBC) [Mass/Vol] 32.6 g/dL Normal 32-36 [facility] Comment on above: Performed By: #### L 501.0900, L501.1400, L3380.1000, L500.2500, L509.1000, L506.1001, L100.0100 #### [facility] [address] [place], [address] MCV (RBC) [Entitic vol] 85.9 fL Normal 80-94 [facility] Comment on above: Performed By: #### L 501.0900, L501.1400, L3380.1000, L500.2500, L509.1000, L506.1001, L100.0100 #### [facility] [address] [place], [address] Monocytes/100 WBC (Bld) 9.7 % Normal 0-10 [facility] Comment on above: Performed By: #### L 501.0900, L501.1400, L3380.1000, L500.2500, L509.1000, L506.1001, L100.0100 #### [facility] [address] [place], [address] Neutrophils/100 WBC (Bld) 73.2 % High 47-70 [facility] Comment on above: Performed By: #### L 501.0900, L501.1400, L3380.1000, L500.2500, L509.1000, L506.1001, L100.0100 #### [facility] [address] [place], [address] Nucleated RBC (Bld) [#/Vol] 0 10*3/uL Normal 0-5 [facility] Comment on above: Performed By: #### L 501.0900, L501.1400, L3380.1000, L500.2500, L509.1000, L506.1001, L100.0100 #### [facility] [address] [place], [address] Platelet mean volume (Bld) [Entitic vol] 9.8 fL Normal 6.2-12.0 [facility] Comment on above: Performed By: #### L 501.0900, L501.1400, L3380.1000, L500.2500, L509.1000, L506.1001, L100.0100 #### [facility] [address] [place], [address] Platelets (Bld) [#/Vol] 217 10*3/uL Normal 150-450 [facility] Comment on above: Performed By: #### L 501.0900, L501.1400, L3380.1000, L500.2500, L509.1000, L506.1001, L100.0100 #### [facility] [address] [place], [address] RBC (Bld) [#/Vol] 3.97 10*6/uL Low 4.6-6.2 [facility] Comment on above: Performed By: #### L 501.0900, L501.1400, L3380.1000, L500.2500, L509.1000, L506.1001, L100.0100 #### [facility] [address] [place], [address] RDW SD 40.8 fl Normal 35.1-43.9 [facility] Comment on above: Performed By: #### L 501.0900, L501.1400, L3380.1000, L500.2500, L509.1000, L506.1001, L100.0100 #### [facility] [address] [place], [address] WBC (Bld) [#/Vol] 6.1 10*3/uL Normal 4.4-11.0 [facility] Comment on above: Performed By: #### L 501.0900, L501.1400, L3380.1000, L500.2500, L509.1000, L506.1001, L100.0100 #### [facility] [address] [place], [address] PTHINon 11-23-2024 PTH 94 pg/mL High 11-61 [facility] Comment on above: Performed By: #### L 501.0900, L501.1400, L3380.1000, L500.2500, L509.1000, L506.1001, L100.0100 #### [facility] [address] [place], [address] Protein+Creatinine Ratio,Uri neon 11-23-2024 PROT:CRE RATIO 1327 mg/g CRE High 0-200 [facility] Comment on above: Performed By: #### L 501.0900, L501.1400, L3380.1000, L500.2500, L509.1000, L506.1001, L100.0100 #### [facility] [address] [place], [address] Protein (U) [Mass/Vol] 134.0 mg/dL High 0.0-12.0 [facility] Comment on above: Performed By: #### L 501.0900, L501.1400, L3380.1000, L500.2500, L509.1000, L506.1001, L100.0100 #### [facility] [address] [place], [address] UR CREAT 101.00 mg/dL Normal 39.00-259. 00 [facility] Comment on above: Performed By: #### L 501.0900, L501.1400, L3380.1000, L500.2500, L509.1000, L506.1001, L100.0100 #### [facility] [address] [place], [address] Uric Acidon 11-23-2024 URIC 7.4 mg/dL High 3.5-7.2 [facility] Comment on above: Result Comment: The drugs N-Acetylcysteine and Metamizole may falsely depress this assay. Performed By: #### L 501.0900, L501.1400, L3380.1000, L500.2500, L509.1000, L506.1001, L100.0100 #### [facility] [address] [place], [place], [address] Vitamin D,25 Hydroxyon 11-23 Vitamin D 25-OH 27.0 ng/mL Low 30-100 [facility] Comment on above: Result Comment: Renata min D Status Deficiency: <20 ng/mL (50nmol/L) Insufficiency: 20-30 ng/mL (50-75 nmol/L) Sufficiency: 30-100 ng/mL (75-250 nmol/L) Toxicity: >100 ng/mL (>250 nmol/L) Performed By: #### L 501.0900, L501.1400, L3380.1000, L500.2500, L509.1000, L506.1001, L100.0100 #### [facility] [address] [place], [place], [address] CNOVon 10-28-2024 [facility] Office Visit (ENWSTR ) -- RODRI GALE ([id number]) 1955 M Date Time Provider Department 10/28/24 8:45 AM CLARIBEL COPE ENWSTR During your visit today, we recorded the following information about you: Pulse Respiration Blood pressure Weight 55/minute 20/minute 148/68 86.7 kg Height 1.791 m Claribel Cope, [employer].IMPREGNATOR 10/28/2024 8:57 AM Signed OFFICE VISIT PROGRESS NOTE CC Rodri Orozcos is a 69 year old who presents today for blood sugar review, insulin dose review, adjust. HPI Diagnosed with diabetes mellitus type II, ~ 1997 Hx of dialysis ~ 2 years Patient sts kidney issues are not secondary to his diabetes [place] it was related to medication overdose (BP meds) Hx of Kidney tx 10/22/2019 Last endocrine OV 04/29/2024 Some elements copied from my note 04/29/2024 which have been updated where appropriate, and all reflect current medical decision making from date of this visit. HPI 10/28/2024 Gets eye injections this coming week Sts that the product would no longer cover retinopathy injections ILEA, is no longer covered Patient was switched to different injection medications I wish the government would stay out of the medications' No changes to med/surg hx Follows regularly with nephro and opth Eating healthy, staying active Takes all his meds as per below CURRENT DM MEDS NOVOLOG 4-6-6 plus SS#1 LANTUS 25 units daily FARXIGA 10 mg 1 tab daily (started by nephro 04/28/2024) SMBG Type of Monitor: Other Frequency of Monitoring: times a day BG Values: Breakfast 86-123 Lunch: 102-135 Dinner: 103-144 Bed-time: Values over past week: Highest 150 Lowest 81 Hypoglycemia: no Diet: Counts Carbs Exercise: walking everyday for 4k steps, some days will double steps DM REVIEW OF SYSTEMS Last Eye Exam : 10/26/2024 - injections sees 3-4 times per year Last Podiatry Exam: declined Cardiorespiratory: negative, denies chest pain, pressure Claudication: no Dyslipidemia: Yes, controlled on medication High Blood Pressure: Yes, controlled on medication CURRENT LABS CURRENT OUTSIDE A1C 6.2% Recent Labs 07/12/17 1500 11/06/17 0602 10/29/19 0000 11/02/19 0000 11/05/19 0000 11/26/19 0913 12/03/19 0000 12/24/19 0000 08/03/20 0000 05/10/21 0000 05/18/21 0000 05/18/21 0000 05/16/22 0000 11/28/22 0000 06/16/24 0000 ALT -- < > -- -- -- -- -- -- -- -- 19 18 AST -- < > -- -- -- -- -- 15 -- 22 -- -- -- 19 20 UALBCR -- -- -- -- -- -- -- -- -- -- 16.6 -- -- 47.8* 727 ALB -- < > -- < > -- < > -- -- -- 3.8 -- -- -- 3.8 3.9 CA -- < > 8.7* < > -- -- -- -- -- 9.3 -- -- 9.1 8.9 9.3 ALKPHOS -- < > -- -- -- -- -- 89 -- -- -- -- -- 55 57 GLUC -- < > 137* < > 134* -- 167* 235* -- 115* -- -- 115* 111* 130* BUN -- < > -- < > -- -- -- 22* -- 14 -- -- -- 14 26* CREAT -- < > 1.76* < > 1.32* -- 1.40* 1.41* -- 1.08 -- -- 1.02 1.07 1.33* NA -- < > 139 < > 140 -- 142 141 -- 142 -- -- 141 145 144 K -- < > 4.0 < > 4.5 -- 4.9 4.2 -- 3.8 -- -- 3.7 4.1 4.2 CHLOR -- < > 106 < > 111* -- 114* 111* -- 110* -- -- 108* 114* 115* CO2 -- < > -- < > -- -- -- 21.0 -- 25 -- -- -- 22 24.0 ANION -- < > 6 -- 7 -- 5 -- -- -- -- -- -- -- -- HBA1C -- < > -- -- -- -- -- -- < > -- 8.3* 8.3* < > 8.7* 8.7* 8.0* 6.4* B12 476 -- -- -- -- -- -- -- -- -- -- -- -- -- -- < > = values in this interval not displayed. Recent Labs 11/30/16 0000 07/12/17 1500 11/06/17 0602 04/18/18 0000 10/28/18 0000 12/10/18 0000 08/03/20 0000 05/10/21 0000 05/16/22 0000 11/28/22 0000 06/16/24 0000 TG < > -- 121 -- 227 -- 176 < > 142 116 160* CHOL < > -- 97 -- 145 -- 161 < > 173 174 159 HDL < > -- 37 -- 39 -- 41 < > 44 43 37* VLDL -- -- 24 -- 45 -- 35 -- -- -- -- LDL < > -- 36 < > 61 < > 85 < > 101* 108* 90 TCHDL -- -- 2.62 -- -- -- -- -- -- -- -- LDLHDL -- -- 0.97 -- -- -- -- -- -- -- -- HBA1C -- -- 6.3 < > -- < > 5.7* < > 8.7* 8.7* 8.0* 6.4* B12 -- 476 -- -- -- -- -- -- -- -- -- < > = values in this interval not displayed. PAST MEDICAL HISTORY Diagnosis Date Advance directive discussed with patient 11/16/2021 Discussed 11/2021 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 07/12/2017 BMI 32.0-32.9,adult BPH (benign prostatic hyperplasia) 03/06/2012 Chronic pain of right knee 12/05/2018 Diabetes mellitus type 2 with neurological manifestations ([facility]) 02/13/2013 Diabetic eye exam ([facility]) 10/09/2021 Last done 10/09/2021 [facility] Diabetic foot ([facility]) 06/23/2024 Sees Podiatry: Dr. 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 Normal [facility] Albumin DL <= 20 mg/L (U) [M ass/Vol]on 10-19-2024 Urine Random Microalbumin 475.0 mg/L NO RANGE EST. [facility] Anion gap in Serum or Plasma on 10-19-2024 Anion gap [Moles/Vol] 10 mmol/L - [facility] BUN/creatinine ratioon 10-19 Urea nitrogen/Creatinine [Mass ratio] 17.5 mg/mg 10- [facility] Bilirubin, totalon Bilirubin [Mass/Vol] 0.27 mg/dL 0.00-1.30 [facility] Calculated very low density lipoprotein (VLDL) cholesterol measurementon 10-19-2024 VLDL Cholesterol 26 mg/dL [facility] Carbon dioxide, total [Moles /volume] in Central venous bloodon 10-19-2024 CO2 [Moles/Vol] 21.5 mmol/L 21.0-32.0 [facility] Chloride assayon 10-19-2024 Chloride [Moles/Vol] 111 mmol/L High 98-108 [facility] Comprehensive Metabolic Prof ilon 10-19-2024 Albumin [Mass/Vol] 4.3 g/dL Normal 3.4-4.8 [facility] Comment on above: Performed By: #### L 500.2500, L501.0900 #### [facility] [address] [place], [address] Albumin/Globulin [Mass ratio] 1.9 {ratio} Normal 0.9-2.4 [facility] Comment on above: Performed By: #### L 500.2500, L501.0900 #### [facility] [address] [place], [address] ALK PHOS 48 U/L Normal 40-129 [facility] Comment on above: Performed By: #### L 500.2500, L501.0900 #### [facility] [address] [place], [address] ALT [Catalytic activity/Vol] 11 U/L Normal <=46 [facility] Comment on above: Performed By: #### L 500.2500, L501.0900 #### [facility] [address] [place], [address] AST [Catalytic activity/Vol] 19 U/L Normal <=37 [facility] Comment on above: Performed By: #### L 500.2500, L501.0900 #### [facility] [address] [place], [address] Bilirubin [Mass/Vol] 0.27 mg/dL Normal 0.00-1.30 [facility] Comment on above: Performed By: #### L 500.2500, L501.0900 #### [facility] [address] [place], [address] BUN/CRE 17.5 RATIO Normal 10-20 [facility] Comment on above: Performed By: #### L 500.2500, L501.0900 #### [facility] [address] [place], [address] Calcium [Mass/Vol] 9.4 mg/dL Normal 7.6-11.0 [facility] Comment on above: Performed By: #### L 500.2500, L501.0900 #### [facility] [address] [place], [address] Chloride [Moles/Vol] 111 mmol/L High 98-108 [facility] Comment on above: Performed By: #### L 500.2500, L501.0900 #### [facility] [address] [place], [address] CO2 [Moles/Vol] 21.5 mmol/L Normal 21.0-32.0 [facility] Comment on above: Performed By: #### L 500.2500, L501.0900 #### [facility] [address] [place], [address] Creatinine [Mass/Vol] 1.37 mg/dL High 0.70-1.20 [facility] Comment on above: Performed By: #### L 500.2500, L501.0900 #### [facility] [address] [place], [address] GAP 10 Normal 5-15 [facility] Comment on above: Performed By: #### L 500.2500, L501.0900 #### [facility] [address] [place], [address] GFR/1.73 sq M.predicted among non-blacks MDRD (S/P/Bld) [Vol rate/Area] 56 mL/min/{1.73_m2} Low >60 [facility] Comment on above: Result Comment: mL/m in/1.73m2 CKD-EPI Creatinine Equation (2020) Performed By: #### L 500.2500, L501.0900 #### [facility] [address] [place], [address] Globulin (S) [Mass/Vol] 2.3 g/dL Normal 2.2-4.2 [facility] Comment on above: Performed By: #### L 500.2500, L501.0900 #### [facility] [address] [place], [address] Glucose [Mass/Vol] 111 mg/dL High 70-99 [facility] Comment on above: Performed By: #### L 500.2500, L501.0900 #### [facility] [address] [place], [address] Potassium [Moles/Vol] 4.3 mmol/L Normal 3.3-5.1 [facility] Comment on above: Performed By: #### L 500.2500, L501.0900 #### [facility] [address] [place], [address] Sodium [Moles/Vol] 143 mmol/L Normal 133-145 [facility] Comment on above: Performed By: #### L 500.2500, L501.0900 #### [facility] [address] [place], [address] T PROT 6.6 g/dL Normal 5.9-8.4 [facility] Comment on above: Performed By: #### L 500.2500, L501.0900 #### [facility] [address] [place], [address] Urea nitrogen [Mass/Vol] 24 mg/dL High 4-19 [facility] Comment on above: Performed By: #### L 500.2500, L501.0900 #### [facility] [address] [place], [address] Creatinine Unsp time (U) [Ma ss/Vol]on 10-19-2024 Creatinine (U) [Mass/Vol] 97.30 mg/dL 39.00-259. 00 [facility] GFR/1.73 sq M.predicted dave g non-blacks MDRD (S/P/Bld) [Vol rate/Area]on 10-19-2024 Estimated GFR (MDRD) Non-Af Amer 56 Low >60 [facility] Comment on above: mL/min/1.73m2 CKD-EP I Creatinine Equation (2020) Hemoglobin A1con 10-19-2024 HbA1c (Bld) [Mass fraction] 6.2 % High <=5.6 [facility] Comment on above: Result Comment: Norm al < 5.7 % Prediabetic 5.7 - 6.4 % Diabetic >or= 6.5 % Please note range changes. Performed By: #### L 500.2500, L501.0900 #### [facility] [address] [place], [address] Hemoglobin A1c percentageon 10-19-2024 HbA1c (Bld) [Mass fraction] 6.2 % High <5.7 [facility] Comment on above: Normal < 5.7 % Predi abetic 5.7 - 6.4 % Diabetic >or= 6.5 % Please note range changes. LDL calc ser/plason 10-20-19 25 LDL Cholesterol, Calculated 91 mg/dL [facility] Comment on above: Yazfkqafcq=345-316 m g/dL & Higher Oklg=677 mg/dL or greater Laboratory - Chemistry and C hemistry - challengeon 10-19-2024 AST [Catalytic activity/Vol] 19 U/L <38 [facility] Lipid Profileon 10-19-2024 CHOL:HDL 3.85 Normal [facility] Comment on above: Performed By: #### L 500.2500, L501.0900 #### [facility] [address] [place], [address] Cholesterol [Mass/Vol] 159 mg/dL Normal <=200 [facility] Comment on above: Result Comment: Chol esterol level, Desirable <200 mg/dL Borderline high cholesterol 200-239 mg/dL High cholesterol >=240 mg/dL Recommendations of the NCEP Adult Treatment Panel for the following risk-cutoff thresholds for the [place] population. Performed By: #### L 500.2500, L501.0900 #### [facility] [address] [place], [address] Cholesterol in HDL [Mass/Vol] 41 mg/dL Normal [facility] Comment on above: Result Comment: Flory onal Cholesterol Education Program (NCEP) guidelines: <40 mg/dL: Low HDL-cholesterol (major risk factor for CHD) >= 60 mg/dL: High HDL-cholesterol (negative risk factor for CHD) HDL-cholesterol is affected by a number of factors, e.g. smoking, exercise, hormones, sex and age. Performed By: #### L 500.2500, L501.0900 #### [facility] [address] [place], [address] Cholesterol in LDL [Mass/Vol] 91 mg/dL Normal [facility] Comment on above: Result Comment: Bord igrars=479-050 mg/dL Higher Uzfq=040 mg/dL or greater Performed By: #### L 500.2500, L501.0900 #### [facility] [address] [place], [address] Cholesterol in VLDL [Mass/Vol] 26 mg/dL Normal 5-40 [facility] Comment on above: Performed By: #### L 500.2500, L501.0900 #### [facility] [address] [place], [address] Triglyceride [Mass/Vol] 132 mg/dL Normal [facility] Comment on above: Result Comment: The drugs N-Acetylcysteine and Metamizole may falsely depress this assay. Normal range: <150 mg/dL Borderline High: 150-199 mg/dL High: 200-499 mg/dL Very High: >500 mg/dL Performed By: #### L 500.2500, L501.0900 #### [facility] [address] [place], [address] Microalbumin/creat ratio uro n 10-19-2024 Urine Microalbumin/Creatinine Ratio 4881.8 mg/g CRE [facility] Potassium (Unsp spec) [Mass/ Vol]on 10-19-2024 Potassium [Moles/Vol] 4.3 mmol/L 3.3-5.1 [facility] Screening total cholesterol/ high density lipoprotein (HDL) cholesterol ratioon 10-19-2024 Cholesterol.total/Rachael sterol in HDL [Mass ratio] 3.85 {ratio} [facility] Serum creatinine measurement (mass/volume)on 10-19-2024 Creatinine [Mass/Vol] 1.37 mg/dL High 0.70-1.20 [facility] Serum globulin measurementon 10-19-2024 Globulin (S) [Mass/Vol] 2.3 g/dL 2.2-4.2 [facility] Serum glucose measurement (m ass/volume)on 10-19-2024 Glucose [Mass/Vol] 111 mg/dL High 70-99 [facility] Serum or plasma alanine dorado otransferase (ALT) measurementon 10-19-2024 ALT [Catalytic activity/Vol] 11 U/L <47 [facility] Serum or plasma albumin jenny urement (mass/volume)on 10-19-2024 Albumin [Mass/Vol] 4.3 g/dL 3.4-4.8 [facility] Serum or plasma albumin/glob ulin mass ratioon 10-19-2024 Albumin/Globulin [Mass ratio] 1.9 {ratio} 0.9-2.4 [facility] Serum or plasma alkaline konrad sphatase measurementon 10-19-2024 ALP [Catalytic activity/Vol] 48 U/L 40-129 [facility] Serum or plasma calcium jenny urement (mass/volume)on 10-19-2024 Calcium [Mass/Vol] 9.4 mg/dL 7.6-11.0 [facility] Serum or plasma cholesterol in HDL measurement (mass/volume)on 10-19-2024 Cholesterol in HDL [Mass/Vol] 41 mg/dL >40 [facility] Comment on above: National Cholesterol Education Program (NCEP) guidelines:<40 mg/dL: Low HDL-cholesterol (major risk factor for CHD)>= 60 mg/dL: High HDL-cholesterol (negative risk factor for CHD)HDL-cholesterol is affected by a number of factors, e.g. smoking, exercise, hormones, sex and age. Serum or plasma cholesterol measurement (mass/volume)on 10-19-2024 Cholesterol [Mass/Vol] 159 mg/dL <201 [facility] Comment on above: Cholesterol level, D esirable <200 mg/dLBorderline high cholesterol 200-239 mg/dLHigh cholesterol >=240 mg/dLRecommendations of the NCEP Adult Treatment Panel for the following risk-cutoff thresholds for the [place] population. Serum or plasma urea nitroge n measurement (mass/volume)on 10-19-2024 Urea nitrogen [Mass/Vol] 24 mg/dL High 4-19 [facility] Sodium levelon 10-19-2024 Sodium [Moles/Vol] 143 mmol/L 133-145 [facility] Total proteinon 10-19-2024 Protein [Mass/Vol] 6.6 g/dL 5.9-8.4 [facility] Triglycerides measurementon 10-19-2024 Triglyceride [Mass/Vol] 132 mg/dL <199 [facility] Comment on above: The drugs N-Acetylcy steine and Metamizole may falsely depress this assay. Normal range: <150 mg/dLBorderline High: 150-199 mg/dLHigh: 200-499 mg/dLVery High: >500 mg/dL Lise 08-28-2024 [facility] Telephone ([facility]) -- RODRI GALE ([id number]) 1955 M Date Time Provider Department 08/28/24 [facility] During your visit today, we recorded the following information about you: Rj Menard LPN 08/28/2024 7:03 AM Signed Pt's is requesting to renew pt's handicap placard. Please call Radha when ready for cone picker. ARGENIS Cody Rayanne, PA-C 08/28/2024 7:16 AM Signed done Allergies As of Date: 08/28/2024 Noted Allergy Reaction BACTRIM (SULFAMETHOXAZOLE) 02/13/2013 4 - Hives METFORMIN 01/02/2008 2 - Rash LIPITOR (ATORVASTATIN CALCIUM) 10/10/2011 14 - Other: See Comments Comments: myalgia NORVASC (AMLODIPINE BESYLATE) 08/31/2014 7 - Swelling Date Reviewed: 06/23/2024 Reviewed by: Alo Avina MD - Fully Assessed Reason for Visit: Renew Handicap Placard [Other] Prescriptions as of 08/28/2024 - finasteride (PROSCAR) 5 mg tablet Take 1 tablet by mouth once daily. - rosuvastatin (CRESTOR) 10 mg tablet Take 1 tablet by mouth once daily. - labetalol (TRANDATE) 100 mg tablet Take 1.5 tablets by mouth two times a day. - FARXIGA 10 mg tablet Take 10 mg by mouth once daily. - lisinopril (ZESTRIL) 5 mg tablet Take 5 mg by mouth once daily. - NIFEdipine ER (PROCARDIA XL) 30 mg 24 hr tablet Take 1 tablet by mouth once daily. - Insulin [place], Disposable, (BD ULTRAFINE III MINI PEN) 31 gauge x 09/20 use four times/day - blood sugar diagnostic (TRUE METRIX GLUCOSE TEST STRIP) test strip Use as instructed - Test blood sugar three times daily. E11.9 Insulin: yes - insulin glargine (LANTUS SOLOSTAR U-100 INSULIN) 100 unit/mL (3 mL) INJECT 25 Units at bedtime - insulin aspart U-100 (NOVOLOG FLEXPEN U-100 INSULIN) 100 unit/mL (3 mL) Inject 4 units with breakfast, use 6 units with lunch and dinner. PLUS SLIDING SCALE #1 (based on pre meal blood sugar) TDD~40 - Cholecalciferol, Vitamin D3, 50 mcg (2,000 unit) cap Take by mouth. OTC - take one tablet daily - tacrolimus ER (ENVARSUS XR) 1 mg tablet Take 1 tablet by mouth once daily. - mycophenolate sodium DR (MYFORTIC) 360 mg TbEC Take 720 mg by mouth twice daily. - aspirin, enteric coated (ASPIRIN, ENTERIC COATED) 81 mg EC tablet Take 81 mg by mouth once daily. - Lancets (ONE TOUCH DELICA) lancets Test blood sugar(s) 4 daily. 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 DM (diabetes mellitus) type II uncontrolled wit*08/31/2014 08/21/2018 Chronic 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 (HCC*02/28/2015 06/06/2020 Fracture of forearm, closed [S52.90XA] 01/25/2016 09/20/2016 Type 2 diabetes mellitus with right eye affecte*09/20/2016 Essential tremor [G25.0] 09/20/2016 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 [N18.2*07/12/2017 Hypocalcemia [E83.51] 07/31/2017 03/07/2018 Vitamin D deficiency [E55.9] 07/31/2017 End stage kidney disease (HCC) [N18.6] 11/06/2017 06/06/2020 Type 2 diabetes mellitus with left eye affected*08/21/2018 Restless leg syndrome [G25.81] 12/05/2018 Chronic pain of right knee [M25.561, G89.29] 12/05/2018 06/06/2020 Diabetic ulcer of toe of right foot associated *12/05/2018 06/06/2020 Type 2 diabetes mellitus with stage 2 chronic k*08/21/2019 Renal transplant recipient [Z94.0] 11/23/2019 Witnessed episode of apnea [R06.81] 11/23/2019 Ex-smoker [Z87.891] 05/17/2021 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) [E13*05/17/2021 Diabetic eye exam (HCC) [Z01.00, E11.9] 10/09/2021 Prostate disorder [N42.9] 11/06/2021 Medicare annual wellness visit, subsequent [Z00*11/16/[address] [Z78.9] 11/16/2021 Advance directive discussed with patient [Z71.8*11/16/2021 Right rotator cuff tear [M75.101] 11/16/2021 Screening for colon cancer [Z12.11] 10/01/2022 Diabetic foot (HCC) [E11.8] 06/23/2024 Letter Text Encounter Status:Closed by CRYSTAL DARBY on 08/28/24 Normal [facility] Tacrolimus (Prograf)on 07-15 Tacrolimus (Bld) [Mass/Vol] 5.1 ng/mL Normal 2.0-20.0 [facility] Comment on above: Order Comment: Test( s) 101905-[id number] (FK506), Bloodwas developed and its performance characteristicsdetermined by [facility]. It has not been cleared or approvedby the Food and Drug Administration. Result Comment: Trou gh (immediately following transplant) 15.0 Trough (steady state, 2 weeks or more after transplant): 3.0 - 8.0 Performed by LC-MS/MS technology. Performed at: [address] [id number] Brass Pourer: Martínez Orellana MD, Phone: [phone] Performed By: #### L 501.0900, L501.1400, L3380.1000, L500.2500, L509.1000, L506.1001, L100.0100 #### [facility] [address] [place], [address] 72-SM-Emrjtct Don 07-13-2024 Vitamin D 25-Hydroxy 29.9 ng/mL [facility] Comment on above: Vitamin D 25(OH) Sta tus Range Deficiency <20 ng/mL (50nmol/L) Insufficiency 20 - 30 ng/mL (50 - 75 nmol/L) Sufficiency 30 - 100 ng/mL (75 - 250 nmol/L) Toxicity >100 ng/mL (>250 nmol/L) Absolute neutrophil counton 07-13-2024 Neutrophils (Bld) [#/Vol] 4.8 10*3/uL 2.0-7.7 [facility] Basic Metabolic Profile (BMP )on 07-13-2024 BUN/CRE 18.4 RATIO Normal 10-20 [facility] Comment on above: Performed By: #### L 500.2500, L501.0900 #### [facility] [address] [place], [address] CA,Total 9.2 mg/dL Normal 8.5-10.1 [facility] Comment on above: Performed By: #### L 500.2500, L501.0900 #### [facility] [address] [place], [address] Chloride [Moles/Vol] 116 mmol/L High 98-107 [facility] Comment on above: Performed By: #### L 500.2500, L501.0900 #### [facility] [address] [place], [address] CO2 [Moles/Vol] 24.0 mmol/L Normal 21.0-32.0 [facility] Comment on above: Performed By: #### L 500.2500, L501.0900 #### [facility] [address] [place], [address] Creatinine [Mass/Vol] 1.36 mg/dL High 0.70-1.30 [facility] Comment on above: Result Comment: The validity of the calculated GFR GFRAA in patients over 70 years has not been determined. Clinical correlation is essential. Performed By: #### L 500.2500, L501.0900 #### [facility] [address] [place], [address] EST GFR - AA 67 mL/min Normal >60 [facility] Comment on above: Result Comment: Afri can [place] GFR Calc Performed By: #### L 500.2500, L501.0900 #### [facility] [address] [place], [address] GAP 4 Low 5-15 [facility] Comment on above: Performed By: #### L 500.2500, L501.0900 #### [facility] [address] [place], [address] GFR/1.73 sq M.predicted among non-blacks MDRD (S/P/Bld) [Vol rate/Area] 55 mL/min/{1.73_m2} Low >60 [facility] Comment on above: Result Comment: Non- GFR Calc Performed By: #### L 500.2500, L501.0900 #### [facility] [address] [place], [address] Glucose [Mass/Vol] 138 mg/dL High 74-106 [facility] Comment on above: Result Comment: Fast ing Glucose result greater than or equal to 126 mg/dL suggests DIABETES MELLITUS per A.D.A. criteria. Performed By: #### L 500.2500, L501.0900 #### [facility] [address] [place], [address] Potassium [Moles/Vol] 3.9 mmol/L Normal 3.5-5.1 [facility] Comment on above: Performed By: #### L 500.2500, L501.0900 #### [facility] [address] [place], [address] Sodium [Moles/Vol] 143 mmol/L Normal 136-145 [facility] Comment on above: Performed By: #### L 500.2500, L501.0900 #### [facility] [address] [place], [address] Urea nitrogen [Mass/Vol] 25 mg/dL High 7-18 [facility] Comment on above: Performed By: #### L 500.2500, L501.0900 #### [facility] [address] [place], [address] Basophil percentageon 2024 Basophils/100 WBC (Bld) 1.0 % 0-1 [facility] Blood urea nitrogen (BUN)/cr eatinine ratioon 07-13-2024 Urea nitrogen/Creatinine [Mass ratio] 18.4 mg/mg 10-20 [facility] CBC W/Diff, Automatedon Absolute Lymph 1.11 X10 3/uL Normal 0.83-4.51 [facility] Comment on above: Performed By: #### L 500.2500, L501.0900 #### [facility] [address] [place], [address] Absolute Neut 4.8 X10 3/uL Normal 2.0-7.7 [facility] Comment on above: Performed By: #### L 500.2500, L501.0900 #### [facility] [address] [place], [address] Basophils/100 WBC (Bld) 1.0 % Normal 0-1 [facility] Comment on above: Performed By: #### L 500.2500, L501.0900 #### [facility] [address] [place], [address] Eosinophils/100 WBC (Bld) 2.6 % Normal 0-5 [facility] Comment on above: Performed By: #### L 500.2500, L501.0900 #### [facility] [address] [place], [address] Erythrocyte distribution width (RBC) [Ratio] 13.2 % Normal 11.6-14.6 [facility] Comment on above: Performed By: #### L 500.2500, L501.0900 #### [facility] [address] [place], [address] Hematocrit (Bld) [Volume fraction] 38.6 % Low 40-54 [facility] Comment on above: Performed By: #### L 500.2500, L501.0900 #### [facility] [address] [place], [address] Hemoglobin (Bld) [Mass/Vol] 12.4 g/dL Low 13.0-16.5 [facility] Comment on above: Performed By: #### L 500.2500, L501.0900 #### [facility] [address] [place], [address] IG% 0.400 Normal 0.0-0.9 [facility] Comment on above: Result Comment: IG% - Immature Granulocytes (promyelocytes, myelocytes and metamyelocytes) > 1% indicates that a LEFT SHIFT is Present. Performed By: #### L 500.2500, L501.0900 #### [facility] [address] [place], [address] Lymphocytes/100 WBC (Bld) 16.2 % Low 19-41 [facility] Comment on above: Performed By: #### L 500.2500, L501.0900 #### [facility] [address] [place], [address] MCH (RBC) [Entitic mass] 27.7 pg Normal 27.0-32.0 [facility] Comment on above: Performed By: #### L 500.2500, L501.0900 #### [facility] [address] [place], [address] MCHC (RBC) [Mass/Vol] 32.1 g/dL Normal 32-36 [facility] Comment on above: Performed By: #### L 500.2500, L501.0900 #### [facility] [address] [place], [address] MCV (RBC) [Entitic vol] 86.2 fL Normal 80-94 [facility] Comment on above: Performed By: #### L 500.2500, L501.0900 #### [facility] [address] [place], [address] Monocytes/100 WBC (Bld) 9.5 % Normal 0-10 [facility] Comment on above: Performed By: #### L 500.2500, L501.0900 #### [facility] [address] [place], [address] Neutrophils/100 WBC (Bld) 70.3 % High 47-70 [facility] Comment on above: Performed By: #### L 500.2500, L501.0900 #### [facility] [address] [place], [address] Nucleated RBC (Bld) [#/Vol] 0 10*3/uL Normal 0-5 [facility] Comment on above: Performed By: #### L 500.2500, L501.0900 #### [facility] [address] [place], [address] Platelet mean volume (Bld) [Entitic vol] 10.2 fL Normal 6.2-12.0 [facility] Comment on above: Performed By: #### L 500.2500, L501.0900 #### [facility] [address] [place], [address] Platelets (Bld) [#/Vol] 240 10*3/uL Normal 150-450 [facility] Comment on above: Performed By: #### L 500.2500, L501.0900 #### [facility] [address] [place], [address] RBC (Bld) [#/Vol] 4.48 10*6/uL Low 4.6-6.2 [facility] Comment on above: Performed By: #### L 500.2500, L501.0900 #### [facility] [address] [place], [address] RDW SD 41.2 fl Normal 35.1-43.9 [facility] Comment on above: Performed By: #### L 500.2500, L501.0900 #### [facility] [address] [place], [address] WBC (Bld) [#/Vol] 6.9 10*3/uL Normal 4.4-11.0 [facility] Comment on above: Performed By: #### L 500.2500, L501.0900 #### [facility] [address] [place], [address] Carbon dioxide measurementon 07-13-2024 CO2 [Moles/Vol] 24.0 mmol/L 21.0-32.0 [facility] Chloride measurementon 07-13 Chloride [Moles/Vol] 116 mmol/L High 98-107 [facility] Eosinophil percentageon Eosinophils/100 WBC (Bld) 2.6 % 0-5 [facility] Erythrocyte distribution wid th (RBC) [Ratio]on 07-13-2024 Erythrocyte distribution width (RBC) [Entitic vol] 41.2 fL 35.1-43.9 [facility] Erythrocyte distribution wid th ratioon 07-13-2024 Erythrocyte distribution width (RBC) [Ratio] 13.2 % 11.6-14.6 [facility] Estimated glomerular filtrat ion rate (GFR) Americanon 07-13-2024 Estimated GFR (MDRD) Amer 67 mL/min >60 [facility] Comment on above: GFR Calc Glomerular filtration rate ( GFR) estimationon 07-13-2024 Estimated GFR (MDRD) Non-Af Amer 55 mL/min Low >60 [facility] Comment on above: Non- GFR Calc Glucose measurementon 2024 Glucose [Mass/Vol] 138 mg/dL High 74-106 [facility] Comment on above: Fasting Glucose resu lt greater than or equal to 126 mg/dL suggests DIABETES MELLITUS per A.D.A. criteria. Hematocrit Auto (Bld) [Volum e fraction]on 07-13-2024 Hematocrit (Bld) [Volume fraction] 38.6 % Low 40-54 [facility] Hemoglobin measurementon Hemoglobin (Bld) [Mass/Vol] 12.4 g/dL Low 13.0-16.5 [facility] Immature granulocytes/100 WB C Auto (Bld)on 07-13-2024 Immature granulocytes/100 WBC (Bld) 0.400 % 0.0-0.9 [facility] Comment on above: IG% - Immature Granu locytes (promyelocytes, myelocytes and metamyelocytes) > 1% indicates that a LEFT SHIFT is Present. Intact parathyroid hormone ( iPTH) measurementon 07-13-2024 Parathyroid Hormone (Intact) 94.1 pg/mL High 18.4-80.1 [facility] Lymphocytes Auto (Unsp spec) [#/Vol]on 07-13-2024 Lymphocytes (Bld) [#/Vol] 1.11 10*3/uL 0.83-4.51 [facility] Lymphocytes/100 WBC Auto (Un sp spec)on 07-13-2024 Lymphocytes/100 WBC (Bld) 16.2 % Low 19-41 [facility] MCV (mean corpuscular volume ) determinationon 07-13-2024 MCV (RBC) [Entitic vol] 86.2 fL 80-94 [facility] Mean corpuscular hemoglobin (MCH) determinationon 07-13-2024 MCH (RBC) [Entitic mass] 27.7 pg 27.0-32.0 [facility] Mean corpuscular hemoglobin concentration (MCHC) determinationon 07-13-2024 MCHC (RBC) [Mass/Vol] 32.1 g/dL 32-36 [facility] Mean platelet volume determi nationon 07-13-2024 Platelet mean volume (Bld) [Entitic vol] 10.2 fL 6.2-12.0 [facility] Monocyte percentageon 2024 Monocytes/100 WBC (Bld) 9.5 % 0-10 [facility] Neutrophil percentageon Neutrophils/100 WBC (Bld) 70.3 % High 47-70 [facility] Nucleated red blood cell per centageon 07-13-2024 Nucleated RBC/100 WBC (Bld) [Ratio] 0 % 0-5 [facility] PTHINon 07-13-2024 PTH 94.1 pg/mL High 18.4-80.1 [facility] Comment on above: Performed By: #### L 501.0900, L501.1400, L3380.1000, L500.2500, L509.1000, L506.1001, L100.0100 #### [facility] [address] [place], [address] Platelet counton 07-13-2024 Platelets (Bld) [#/Vol] 240 10*3/uL 150-450 [facility] Potassium measurementon Potassium [Moles/Vol] 3.9 mmol/L 3.5-5.1 [facility] Protein+Creatinine Ratio,Uri neon 07-13-2024 PROT:CRE RATIO 1030 mg/g CRE High 0-200 [facility] Comment on above: Performed By: #### L 500.2500, L501.0900 #### [facility] [address] [place], [address] Protein (U) [Mass/Vol] 118.4 mg/dL High <11.9 [facility] Comment on above: Performed By: #### L 500.2500, L501.0900 #### [facility] [address] [place], [address] UR CREAT 115.00 mg/dL Normal NO RANGE EST. [facility] Comment on above: Performed By: #### L 500.2500, L501.0900 #### [facility] [address] [place], [address] Protein/Creatinine (U) [Mass ratio]on 07-13-2024 Urine Protein/Creatinine Ratio 1030 mg/g CRE High 0-200 [facility] RBC Auto (Bld) [#/Vol]on RBC (Bld) [#/Vol] 4.48 10*6/uL Low 4.6-6.2 [facility] Random urine protein measure menton 07-13-2024 Protein (U) [Mass/Vol] 118.4 mg/dL High 0.0-11.8 [facility] Serum anion gap measuremento n 07-13-2024 Anion gap [Moles/Vol] 4 mmol/L Low 5-15 [facility] Serum or plasma calcium jenny urement (mass/volume)on 07-13-2024 Calcium [Mass/Vol] 9.2 mg/dL 8.5-10.1 [facility] Serum or plasma creatinine m easurement (mass/volume)on 07-13-2024 Creatinine [Mass/Vol] 1.36 mg/dL High 0.70-1.30 [facility] Comment on above: The validity of the calculated GFR & GFRAA in patients over 70 years has not been determined. Clinical correlation is essential. Serum or plasma urea nitroge n measurement (mass/volume)on 07-13-2024 Urea nitrogen [Mass/Vol] 25 mg/dL High 7-18 [facility] Serum or plasma uric acid me asurement (mass/volume)on 07-13-2024 Urate [Mass/Vol] 6.4 mg/dL 3.5-7.2 [facility] Comment on above: The drugs N-Acetylcy steine and Metamizole may falsely depress this assay. Sodium levelon 07-13-2024 Sodium [Moles/Vol] 143 mmol/L 136-145 [facility] Tacrolimus levelon Tacrolimus (Prograf) Level 5.1 ng/mL 2.0-20.0 [facility] Comment on above: Trough (immediately following transplant) 15.0 Trough (steady state, 2 weeks or more after transplant): 3.0 - 8.0 Performed by LC-MS/MS technology.Performed at: [address] [id number] Director: Martínez Orellana MD, Phone: [phone] Uric Acidon 07-13-2024 URIC 6.4 mg/dL Normal 3.5-7.2 [facility] Comment on above: Result Comment: The drugs N-Acetylcysteine and Metamizole may falsely depress this assay. Performed By: #### L 501.0900, L501.1400, L3380.1000, L500.2500, L509.1000, L506.1001, L100.0100 #### [facility] [address] [place], [place], [address] Urine creatinine measurement (mass/volume)on 07-13-2024 Creatinine (U) [Mass/Vol] 115.00 mg/dL NO RANGE EST. [facility] Vitamin D,25 Hydroxyon 07-13 Vitamin D 25-OH 29.9 ng/mL Normal [facility] Comment on above: Result Comment: Renata min D 25(OH) Status Range Deficiency <20 ng/mL (50nmol/L) Insufficiency 20 - 30 ng/mL (50 - 75 nmol/L) Sufficiency 30 - 100 ng/mL (75 - 250 nmol/L) Toxicity >100 ng/mL (>250 nmol/L) Performed By: #### L 501.0900, L501.1400, L3380.1000, L500.2500, L509.1000, L506.1001, L100.0100 #### [facility] [address] [place], [address] White blood cell (WBC) count on 07-13-2024 WBC (Bld) [#/Vol] 6.9 10*3/uL 4.4-11.0 [facility] 07-11-2024 CNPN Telephone (FAMPWS) -- BALJINDERRODRI Garza ([id number]) 1955 M Date Time Provider Department 07/11/24 [facility] During your visit today, we recorded the following information about you: Bianca Wahl RN 07/11/2024 8:16 AM Signed Spouse calls to request an updated referral to podiatry for Dr. Lane [facility] d/t it being a new year. Pended referral as previously ordered. Please fax to [phone]. Spouse (Pat) also requests a call once referral has been placed at [phone]. DEMETRIO Smith Jeffrey A, MD 07/12/2024 3:21 PM Signed Referral ready to be faxed and can be notified. Esha Pozo MA 07/13/2024 10:55 AM Signed Pt notified. Referral, Demo, faxed. Esha Pozo MA Allergies As of Date: 07/11/2024 Noted Allergy Reaction BACTRIM (SULFAMETHOXAZOLE) 02/13/2013 4 - Hives METFORMIN 01/02/2008 2 - Rash LIPITOR (ATORVASTATIN CALCIUM) 10/10/2011 14 - Other: See Comments Comments: myalgia NORVASC (AMLODIPINE BESYLATE) 08/31/2014 7 - Swelling Date Reviewed: 06/23/2024 Reviewed by: Alo Avina MD - Fully Assessed Reason for Visit: Consult [502] Primary Visit Diagnosis:Diabetic foot (HCC) [E11.8] Order(s):CONSULT TO PODIATRY [9034] Order #: [id number]: 1 FUTURE Prescriptions as of 07/13/2024 - finasteride (PROSCAR) 5 mg tablet Take 1 tablet by mouth once daily. - rosuvastatin (CRESTOR) 10 mg tablet Take 1 tablet by mouth once daily. - labetalol (TRANDATE) 100 mg tablet Take 1.5 tablets by mouth two times a day. - FARXIGA 10 mg tablet Take 10 mg by mouth once daily. - lisinopril (ZESTRIL) 5 mg tablet Take 5 mg by mouth once daily. - NIFEdipine ER (PROCARDIA XL) 30 mg 24 hr tablet Take 1 tablet by mouth once daily. - Insulin [place], Disposable, (BD ULTRAFINE III MINI PEN) 31 gauge x 3/16 use four times/day - blood sugar diagnostic (TRUE METRIX GLUCOSE TEST STRIP) test strip Use as instructed - Test blood sugar three times daily. E11.9 Insulin: yes - insulin glargine (LANTUS SOLOSTAR U-100 INSULIN) 100 unit/mL (3 mL) INJECT 25 Units at bedtime - insulin aspart U-100 (NOVOLOG FLEXPEN U-100 INSULIN) 100 unit/mL (3 mL) Inject 4 units with breakfast, use 6 units with lunch and dinner. PLUS SLIDING SCALE #1 (based on pre meal blood sugar) TDD~40 - Cholecalciferol, Vitamin D3, 50 mcg (2,000 unit) cap Take by mouth. OTC - take one tablet daily - tacrolimus ER (ENVARSUS XR) 1 mg tablet Take 1 tablet by mouth once daily. - mycophenolate sodium DR (MYFORTIC) 360 mg TbEC Take 720 mg by mouth twice daily. - aspirin, enteric coated (ASPIRIN, ENTERIC COATED) 81 mg EC tablet Take 81 mg by mouth once daily. - Lancets (ONE TOUCH DELICA) lancets Test blood sugar(s) 4 daily. 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 DM (diabetes mellitus) type II uncontrolled wit*08/31/2014 08/21/2018 Chronic 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 (HCC*02/28/2015 06/06/2020 Fracture of forearm, closed [S52.90XA] 01/25/2016 09/20/2016 Type 2 diabetes mellitus with right eye affecte*09/20/2016 Essential tremor [G25.0] 09/20/2016 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 [N18.2*07/12/2017 Hypocalcemia [E83.51] 07/31/2017 03/07/2018 Vitamin D deficiency [E55.9] 07/31/2017 End stage kidney disease (HCC) [N18.6] 11/06/2017 06/06/2020 Type 2 diabetes mellitus with left eye affected*08/21/2018 Restless leg syndrome [G25.81] 12/05/2018 Chronic pain of right knee [M25.561, G89.29] 12/05/2018 06/06/2020 Diabetic ulcer of toe of right foot associated *12/05/2018 06/06/2020 Type 2 diabetes mellitus with stage 2 chronic k*08/21/2019 Renal transplant recipient [Z94.0] 11/23/2019 Witnessed episode of apnea [R06.81] 11/23/2019 Ex-smoker [Z87.891] 05/17/2021 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) [E13*05/17/2021 Diabetic eye exam (HCC) [Z01.00, E11.9] 10/09/2021 Prostate disorder [N42.9] 11/06/2021 Medicare annual wellness visit, subsequent [Z00*11/16/[address] [Z78.9] 11/16/2021 Advance directive discussed with patient [Z71.8*11/16/2021 Right rotator cuff tear [M75.101] 11/16/2021 Screening for colon cancer [Z12.11] 10/01/2022 Diabetic foot (HCC) [E11.8] 06/23/2024 Encounter Status:Closed by ESHA POZO on 07/13/24 [facility] Lise 06-26-2024 CNPN Telephone (FAMPWS) -- BALJINDERRODRI Wetzel ([id number]) 1955 M Date Time Provider Department 06/26/24 KATRINA MACE [facility] During your visit today, we recorded the following information about you: Katrina Mace MA 06/26/2024 2:56 PM Signed Scan on 06/24/2024 7:36 AM by ProviderIrma PA-C: Chemistry Scan on 06/25/2024 8:14 AM by ProviderIrma PA-C: Chemistry Please review results and advise. RACHEL Abreu Jeffrey A, MD 06/26/2024 4:44 PM Signed Let patient know his Prostate lab was ok. His Vit D is low. See if he is still taking Vit D 2000 international unit(s) 's a day. If not needs to restart. If he is taking it have him increase to 4,000 international unit(s) 's a day Tom Beatty RN 06/27/2024 9:36 AM Signed Left vm for patient to return call to nurse for provider's message. Tom Beatty RN 06/27/2024 11:17 AM Signed Pt returned call and given provider's message below with verbalized understanding. Pt reports he is currently taking 2000 international unit(s) Vit D daily and agreeable to increase to 4000 international unit(s) daily. Allergies As of Date: 06/26/2024 Noted Allergy Reaction BACTRIM (SULFAMETHOXAZOLE) 02/13/2013 4 - Hives METFORMIN 01/02/2008 2 - Rash LIPITOR (ATORVASTATIN CALCIUM) 10/10/2011 14 - Other: See Comments Comments: myalgia NORVASC (AMLODIPINE BESYLATE) 08/31/2014 7 - Swelling Date Reviewed: 06/23/2024 Reviewed by: Alo Avina MD - Fully Assessed Reason for Visit: Results [95] Prescriptions as of 06/29/2024 - finasteride (PROSCAR) 5 mg tablet Take 1 tablet by mouth once daily. - rosuvastatin (CRESTOR) 10 mg tablet Take 1 tablet by mouth once daily. - labetalol (TRANDATE) 100 mg tablet Take 1.5 tablets by mouth two times a day. - FARXIGA 10 mg tablet Take 10 mg by mouth once daily. - lisinopril (ZESTRIL) 5 mg tablet Take 5 mg by mouth once daily. - NIFEdipine ER (PROCARDIA XL) 30 mg 24 hr tablet Take 1 tablet by mouth once daily. - Insulin [place], Disposable, (BD ULTRAFINE III MINI PEN) 31 gauge x 3/16 use four times/day - blood sugar diagnostic (TRUE METRIX GLUCOSE TEST STRIP) test strip Use as instructed - Test blood sugar three times daily. E11.9 Insulin: yes - insulin glargine (LANTUS SOLOSTAR U-100 INSULIN) 100 unit/mL (3 mL) INJECT 25 Units at bedtime - insulin aspart U-100 (NOVOLOG FLEXPEN U-100 INSULIN) 100 unit/mL (3 mL) Inject 4 units with breakfast, use 6 units with lunch and dinner. PLUS SLIDING SCALE #1 (based on pre meal blood sugar) TDD~40 - Cholecalciferol, Vitamin D3, 50 mcg (2,000 unit) cap Take by mouth. OTC - take one tablet daily - tacrolimus ER (ENVARSUS XR) 1 mg tablet Take 1 tablet by mouth once daily. - mycophenolate sodium DR (MYFORTIC) 360 mg TbEC Take 720 mg by mouth twice daily. - aspirin, enteric coated (ASPIRIN, ENTERIC COATED) 81 mg EC tablet Take 81 mg by mouth once daily. - Lancets (ONE TOUCH DELICA) lancets Test blood sugar(s) 4 daily. 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 (HCC*02/28/2015 06/06/2020 Fracture of forearm, closed [S52.90XA] 01/25/2016 09/20/2016 Type 2 diabetes mellitus with right eye affecte*09/20/2016 Essential tremor [G25.0] 09/20/2016 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 [N18.2*07/12/2017 Hypocalcemia [E83.51] 07/31/2017 03/07/2018 Vitamin D deficiency [E55.9] 07/31/2017 End stage kidney disease (HCC) [N18.6] 11/06/2017 06/06/2020 Type 2 diabetes mellitus with left eye affected*08/21/2018 Restless leg syndrome [G25.81] 12/05/2018 Chronic pain of right knee [M25.561, G89.29] 12/05/2018 06/06/2020 Diabetic ulcer of toe of right foot associated *12/05/2018 06/06/2020 Type 2 diabetes mellitus with stage 2 chronic k*08/21/2019 Renal transplant recipient [Z94.0] 11/23/2019 Witnessed episode of apnea [R06.81] 11/23/2019 Ex-smoker [Z87.891] 05/17/2021 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) [E13*05/17/2021 Diabetic eye exam (HCC) [Z01.00, E11.9] 10/09/2021 Prostate disorder [N42.9] 11/06/2021 Medicare annual wellness visit, subsequent [Z00*11/16/[address] [Z78.9] 11/16/2021 Advance directive discussed with patient [Z71.8*11/16/2021 Right rotator cuff tear [M75.101] 11/16/2021 Screening for colon cancer [Z12.11] 10/01/2022 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 Normal [facility] Vitamin D,25 Hydroxyon 06-25 Vitamin D 25-OH 24.5 ng/mL Normal [facility] Comment on above: Result Comment: Renata min D 25(OH) Status Range Deficiency <20 ng/mL (50nmol/L) Insufficiency 20 - 30 ng/mL (50 - 75 nmol/L) Sufficiency 30 - 100 ng/mL (75 - 250 nmol/L) Toxicity >100 ng/mL (>250 nmol/L) Performed By: #### L 501.0900, L501.1400, L3380.1000, L500.2500, L509.1000, L506.1001, L100.0100 #### [facility] [address] [place], [place], [id number] DOrdered By: Ricardo Avina on 06-24-2024 Vitamin D 25-Hydroxy 24.5 ng/mL [facility] Comment on above: Vitamin D 25(OH) Sta tus Range Deficiency <20 ng/mL (50nmol/L) Insufficiency 20 - 30 ng/mL (50 - 75 nmol/L) Sufficiency 30 - 100 ng/mL (75 - 250 nmol/L) Toxicity >100 ng/mL (>250 nmol/L) Absolute neutrophil countOrd ered By: Alo Avina on 06-24-2024 Neutrophils (Bld) [#/Vol] 4.4 10*3/uL 2.0-7.7 [facility] Basophil percentageOrdered B y: Alo Avina on 06-24-2024 Basophils/100 WBC (Bld) 0.9 % 0-1 [facility] CBC W/Diff, Automatedon 06-07 Absolute Lymph 1.06 X10 3/uL Normal 0.83-4.51 [facility] Comment on above: Performed By: #### L 501.0900, L501.1400, L3380.1000, L500.2500, L509.1000, L506.1001, L100.0100 #### [facility] [address] [place], [place], [id number] Absolute Neut 4.4 X10 3/uL Normal 2.0-7.7 [facility] Comment on above: Performed By: #### L 501.0900, L501.1400, L3380.1000, L500.2500, L509.1000, L506.1001, L100.0100 #### [facility] [address] [place], [address] Basophils/100 WBC (Bld) 0.9 % Normal 0-1 [facility] Comment on above: Performed By: #### L 501.0900, L501.1400, L3380.1000, L500.2500, L509.1000, L506.1001, L100.0100 #### [facility] [address] [place], [address] Eosinophils/100 WBC (Bld) 2.8 % Normal 0-5 [facility] Comment on above: Performed By: #### L 501.0900, L501.1400, L3380.1000, L500.2500, L509.1000, L506.1001, L100.0100 #### [facility] [address] [place], [address] Erythrocyte distribution width (RBC) [Ratio] 13.2 % Normal 11.6-14.6 [facility] Comment on above: Performed By: #### L 501.0900, L501.1400, L3380.1000, L500.2500, L509.1000, L506.1001, L100.0100 #### [facility] [address] [place], [address] Hematocrit (Bld) [Volume fraction] 36.8 % Low 40-54 [facility] Comment on above: Performed By: #### L 501.0900, L501.1400, L3380.1000, L500.2500, L509.1000, L506.1001, L100.0100 #### [facility] [address] [place], [address] Hemoglobin (Bld) [Mass/Vol] 11.8 g/dL Low 13.0-16.5 [facility] Comment on above: Performed By: #### L 501.0900, L501.1400, L3380.1000, L500.2500, L509.1000, L506.1001, L100.0100 #### [facility] [address] [place], [address] IG% 0.300 Normal 0.0-0.9 [facility] Comment on above: Result Comment: IG% - Immature Granulocytes (promyelocytes, myelocytes and metamyelocytes) > 1% indicates that a LEFT SHIFT is Present. Performed By: #### L 501.0900, L501.1400, L3380.1000, L500.2500, L509.1000, L506.1001, L100.0100 #### [facility] [address] [place], [address] Lymphocytes/100 WBC (Bld) 16.5 % Low 19-41 [facility] Comment on above: Performed By: #### L 501.0900, L501.1400, L3380.1000, L500.2500, L509.1000, L506.1001, L100.0100 #### [facility] [address] [place], [address] MCH (RBC) [Entitic mass] 27.6 pg Normal 27.0-32.0 [facility] Comment on above: Performed By: #### L 501.0900, L501.1400, L3380.1000, L500.2500, L509.1000, L506.1001, L100.0100 #### [facility] [address] [place], [address] MCHC (RBC) [Mass/Vol] 32.1 g/dL Normal 32-36 [facility] Comment on above: Performed By: #### L 501.0900, L501.1400, L3380.1000, L500.2500, L509.1000, L506.1001, L100.0100 #### [facility] [address] [place], [address] MCV (RBC) [Entitic vol] 86.0 fL Normal 80-94 [facility] Comment on above: Performed By: #### L 501.0900, L501.1400, L3380.1000, L500.2500, L509.1000, L506.1001, L100.0100 #### [facility] [address] [place], [address] Monocytes/100 WBC (Bld) 11.8 % High 0-10 [facility] Comment on above: Performed By: #### L 501.0900, L501.1400, L3380.1000, L500.2500, L509.1000, L506.1001, L100.0100 #### [facility] [address] [place], [address] Neutrophils/100 WBC (Bld) 67.7 % Normal 47-70 [facility] Comment on above: Performed By: #### L 501.0900, L501.1400, L3380.1000, L500.2500, L509.1000, L506.1001, L100.0100 #### [facility] [address] [place], [address] Nucleated RBC (Bld) [#/Vol] 0 10*3/uL Normal 0-5 [facility] Comment on above: Performed By: #### L 501.0900, L501.1400, L3380.1000, L500.2500, L509.1000, L506.1001, L100.0100 #### [facility] [address] [place], [address] Platelet mean volume (Bld) [Entitic vol] 10.3 fL Normal 6.2-12.0 [facility] Comment on above: Performed By: #### L 501.0900, L501.1400, L3380.1000, L500.2500, L509.1000, L506.1001, L100.0100 #### [facility] [address] [place], [address] Platelets (Bld) [#/Vol] 206 10*3/uL Normal 150-450 [facility] Comment on above: Performed By: #### L 501.0900, L501.1400, L3380.1000, L500.2500, L509.1000, L506.1001, L100.0100 #### [facility] [address] [place], [address] RBC (Bld) [#/Vol] 4.28 10*6/uL Low 4.6-6.2 [facility] Comment on above: Performed By: #### L 501.0900, L501.1400, L3380.1000, L500.2500, L509.1000, L506.1001, L100.0100 #### [facility] [address] [place], [address] RDW SD 40.9 fl Normal 35.1-43.9 [facility] Comment on above: Performed By: #### L 501.0900, L501.1400, L3380.1000, L500.2500, L509.1000, L506.1001, L100.0100 #### [facility] [address] [place], [address] WBC (Bld) [#/Vol] 6.4 10*3/uL Normal 4.4-11.0 [facility] Comment on above: Performed By: #### L 501.0900, L501.1400, L3380.1000, L500.2500, L509.1000, L506.1001, L100.0100 #### [facility] [address] [place], [address] Diagnostic total prostate sp ecific antigen (PSA) measurementOrdered By: Alo Avina on 06-24-2024 Prostate Specific Antigen Total 2.00 ng/mL 0.0-4.0 [facility] Comment on above: This test was perfor med using the TPSA assay method for the[employer] chemistry system. Values obtained with differentassay methods cannot be used interchangably.When changing PSA assays in the course of monitoring apatient, additional sequential testing should be carriedout to confirm baseline values. Eosinophil percentageOrdered By: Alo Avina on 06-24-2024 Eosinophils/100 WBC (Bld) 2.8 % 0-5 [facility] Erythrocyte distribution wid th (RBC) [Ratio]Ordered By: Alo Avina on 06-24-2024 Erythrocyte distribution width (RBC) [Entitic vol] 40.9 fL 35.1-43.9 [facility] Erythrocyte distribution wid th ratioOrdered By: Alo Avina on 06-24-2024 Erythrocyte distribution width (RBC) [Ratio] 13.2 % 11.6-14.6 [facility] Hematocrit Auto (Bld) [Volum e fraction]Ordered By: Alo Avina on 06-24-2024 Hematocrit (Bld) [Volume fraction] 36.8 % Low 40-54 [facility] Hemoglobin measurementOrdere d By: Alo Avina on 06-24-2024 Hemoglobin (Bld) [Mass/Vol] 11.8 g/dL Low 13.0-16.5 [facility] Immature granulocytes/100 WB C Auto (Bld)Ordered By: Alo Avina on 06-24-2024 Immature granulocytes/100 WBC (Bld) 0.300 % 0.0-0.9 [facility] Comment on above: IG% - Immature Granu locytes (promyelocytes, myelocytes and metamyelocytes) > 1% indicates that a LEFT SHIFT is Present. Lymphocytes Auto (Unsp spec) [#/Vol]Ordered By: Alo Avina on 06-24-2024 Lymphocytes (Bld) [#/Vol] 1.06 10*3/uL 0.83-4.51 [facility] Lymphocytes/100 WBC Auto (Un sp spec)Ordered By: Alo Avina on 06-24-2024 Lymphocytes/100 WBC (Bld) 16.5 % Low 19-41 [facility] MCV (mean corpuscular volume ) determinationOrdered By: Alo Avina on 06-24-2024 MCV (RBC) [Entitic vol] 86.0 fL 80-94 [facility] Mean corpuscular hemoglobin (MCH) determinationOrdered By: Alo Avina on 06-24-2024 MCH (RBC) [Entitic mass] 27.6 pg 27.0-32.0 [facility] Mean corpuscular hemoglobin concentration (MCHC) determinationOrdered By: Alo Avina on 06-24-2024 MCHC (RBC) [Mass/Vol] 32.1 g/dL 32-36 [facility] Mean platelet volume determi nationOrdered By: Alo Avina on 06-24-2024 Platelet mean volume (Bld) [Entitic vol] 10.3 fL 6.2-12.0 [facility] Monocyte percentageOrdered B y: Alo Avina on 06-24-2024 Monocytes/100 WBC (Bld) 11.8 % High 0-10 [facility] Neutrophil percentageOrdered By: Alo Avina on 06-24-2024 Neutrophils/100 WBC (Bld) 67.7 % 47-70 [facility] Nucleated red blood cell per centageOrdered By: Alo Avina on 06-24-2024 Nucleated RBC/100 WBC (Bld) [Ratio] 0 % 0-5 [facility] PSA,Total- Diagnosticon 06-07 PSA, DIAGNOSTIC 2.00 ng/mL Normal 0.0-4.0 [facility] Comment on above: Result Comment: This test was performed using the TPSA assay method for the [employer] chemistry system. Values obtained with different assay methods cannot be used interchangably. When changing PSA assays in the course of monitoring a patient, additional sequential testing should be carried out to confirm baseline values. Performed By: #### L 501.0900, L501.1400, L3380.1000, L500.2500, L509.1000, L506.1001, L100.0100 #### [facility] [address] [place], [address] Platelet countOrdered By: Mehrdad Avina on 06-24-2024 Platelets (Bld) [#/Vol] 206 10*3/uL 150-450 [facility] RBC Auto (Bld) [#/Vol]Ordere d By: Alo Avina on 06-24-2024 RBC (Bld) [#/Vol] 4.28 10*6/uL Low 4.6-6.2 [facility] White blood cell (WBC) count Ordered By: Alo Avina on 06-24-2024 WBC (Bld) [#/Vol] 6.4 10*3/uL 4.4-11.0 [facility] CNOVon 06-23-2024 CNOV Office Visit (FAMPWS ) -- BALJINDERRODRI Wetzel ([id number]) 1955 M Date Time Provider Department 06/23/24 8:00 AM [facility] visit today, we recorded the following information about you: Pulse Respiration Blood pressure Weight 56/minute 16/minute 120/70 86.2 kg Height 1.791 m Alo Avina MD 06/23/2024 1:49 PM Signed Rodri Rashard Gale is a 68 year old male here for a Medicare wellness visit. Medicare Health Risk Assessment General Health Good Exercise: Minutes/Day 30 min Exercise: Days/Week 5 days Alcohol: Daily Use Never Alcohol: Drinks/Day Patient does not drink Alcohol: 6 or more drinks Never Feel off balance No Concerns: Teeth/Dentures No Concerns: Sexual function No Troubled by feelings None of the above Frequency: Eating healthy diet Nearly every day ADLs requiring help None of the above Safety precautions in home/vehicle No Smoke, vape, chews tobacco No Difficulty hearing No Difficulty seeing No Current Providers Specialists: I have reviewed specialist-related care of the patient in the medical record. Current care team: Patient Care Team: Alo Avina MD as PCP - General (Family Medicine) Judd Dey MD (Internal Medicine) Keri Day APRN.IMPREGNATOR as Crane Ladle Person (Family Medicine) Crystal Nation PA-C as Crane Ladle Person (Family Medicine) Claribel Devi: Endo Optho Dr. Rojas: Podiatry. Dr. Bravo (renal) Medical/Family history review Reviewed and updated problem list, medical/surgical/family/so cial history, medications, and allergies. Opioid use review Opioid Medications (last 90 days) No data to display Anxiety/Depression screening PHQ-2 Score: 0 (Lower risk for depression) Recommendation: no further intervention at this time Cognitive screening Score: 5 Cognitive screening reviewed and No further action needed (score 3-5). Functional Observation Was the patient's Timed Up AND Go test unsteady or >= 12 seconds? No Advance Care Planning Surrogate decision maker documented and/or advance directives scanned in chart Measurements BP 120/70 Pulse (!) 56 Resp 16 Ht 179.1 cm (5' 10.5) Wt 86.2 kg (190 lb) BMI 26.88 kg/m? Vision Screening: Follows with optometry/ophthalmology Assessment/Plan Medicare annual wellness visit, subsequent (Z00.00) - Counseled on healthy diet and regular exercise - Fall avoidance information provided - Personalized prevention plan provided See below Chief Complaint Patient presents with: Medicare Wellness Exam HPI Rodri Gale is a 68 year old male who presents here today for Chronic Medical Conditions. and Medicare Annual Visit. Patient with hx of HTN, DM2, hyperlipidemia, tremor, anemia, renal transplant, BPH, ED and those as below. Patient had COVID 03/30/2024 and flu shot 04/12/2024 Recent A1C - 6.4% - see scanned documents Patient Claribel Cope - Endocrinology last visit 04/2024 Patient sees Ophthalmology - last visit 03/2024 Patient has been doing ok. No new issues or concerns. Past medical history, appointments, medications, allergies reviewed. 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 Normal [facility] CMP (EXTERNAL)on 06-16-2024 Alk Phos Total 57 U/L 45 - 117 U/L [facility] Bili Total 0.30 mg/dL 0.2 - 1 mg/dL [facility] Calcium [Mass/Vol] 9.3 mg/dL 8.5 - 10. 1 mg/dL [facility] GFR 57 mL/MIN [facility] GFR AFR AMER 69 mL/MIN [facility] Protein [Mass/Vol] 6.8 g/dL [facility] Comprehensive Metabolic Prof ilon 06-16-2024 Albumin [Mass/Vol] 3.9 g/dL Normal 3.2-5.0 [facility] Comment on above: Performed By: #### L 500.6090, L501.9985, L502.0250, L500.4050 #### [facility] [address] [place], [address] Albumin/Globulin [Mass ratio] 1.3 {ratio} Normal 0.9-2.4 [facility] Comment on above: Performed By: #### L 500.4100, L501.9985, L502.0250, L500.4050 #### [facility] [address] [place], [address] ALK P 57 U/L Normal 45-117 [facility] Comment on above: Performed By: #### L 500.4100, L501.9985, L502.0250, L500.4050 #### [facility] [address] [place], [address] ALT [Catalytic activity/Vol] 18 U/L Normal 16-61 [facility] Comment on above: Performed By: #### L 500.4100, L501.9985, L502.0250, L500.4050 #### [facility] [address] [place], [address] AST [Catalytic activity/Vol] 20 U/L Normal 15-37 [facility] Comment on above: Performed By: #### L 500.4100, L501.9985, L502.0250, L500.4050 #### [facility] [address] [place], [address] Bilirubin [Mass/Vol] 0.30 mg/dL Normal 0.20-1.00 [facility] Comment on above: Result Comment: For patients on eltrombopag therapy, use of Dimension [place] TBIL is not recommended. Performed By: #### L 500.4100, L501.9985, L502.0250, L500.4050 #### [facility] [address] [place], [address] BUN/CRE 19.5 RATIO Normal 10-20 [facility] Comment on above: Performed By: #### L 500.4100, L501.9985, L502.0250, L500.4050 #### [facility] [address] [place], [address] CA,Total 9.3 mg/dL Normal 8.5-10.1 [facility] Comment on above: Performed By: #### L 500.4100, L501.9985, L502.0250, L500.4050 #### [facility] [address] [place], [address] Chloride [Moles/Vol] 115 mmol/L High 98-107 [facility] Comment on above: Performed By: #### L 500.4100, L501.9985, L502.0250, L500.4050 #### [facility] [address] [place], [address] CO2 [Moles/Vol] 24.0 mmol/L Normal 21.0-32.0 [facility] Comment on above: Performed By: #### L 500.4100, L501.9985, L502.0250, L500.4050 #### [facility] [address] [place], [address] Creatinine [Mass/Vol] 1.33 mg/dL High 0.70-1.30 [facility] Comment on above: Result Comment: The validity of the calculated GFR GFRAA in patients over 70 years has not been determined. Clinical correlation is essential. Performed By: #### L 500.4100, L501.9985, L502.0250, L500.4050 #### [facility] [address] [place], [address] EST GFR - AA 69 mL/min Normal >60 [facility] Comment on above: Result Comment: Afri can Marshallese GFR Calc Performed By: #### L 500.4100, L501.9985, L502.0250, L500.4050 #### [facility] [address] [place], [address] GAP 5 Normal 5-15 [facility] Comment on above: Performed By: #### L 500.4100, L501.9985, L502.0250, L500.4050 #### [facility] [address] [place], [address] GFR/1.73 sq M.predicted among non-blacks MDRD (S/P/Bld) [Vol rate/Area] 57 mL/min/{1.73_m2} Low >60 [facility] Comment on above: Result Comment: Non- GFR Calc Performed By: #### L 500.4100, L501.9985, L502.0250, L500.4050 #### [facility] [address] [place], [address] Globulin (S) [Mass/Vol] 2.9 g/dL Normal 2.2-4.2 [facility] Comment on above: Performed By: #### L 500.4100, L501.9985, L502.0250, L500.4050 #### [facility] [address] [place], [address] Glucose [Mass/Vol] 130 mg/dL High 74-106 [facility] Comment on above: Result Comment: Fast ing Glucose result greater than or equal to 126 mg/dL suggests DIABETES MELLITUS per A.D.A. criteria. Performed By: #### L 500.4100, L501.9985, L502.0250, L500.4050 #### [facility] [address] [place], [address] Potassium [Moles/Vol] 4.2 mmol/L Normal 3.5-5.1 [facility] Comment on above: Performed By: #### L 500.4100, L501.9985, L502.0250, L500.4050 #### [facility] [address] [place], [address] Sodium [Moles/Vol] 144 mmol/L Normal 136-145 [facility] Comment on above: Performed By: #### L 500.4100, L501.9985, L502.0250, L500.4050 #### [facility] [address] [place], [address] T PROT 6.8 g/dL Normal 6.4-8.2 [facility] Comment on above: Performed By: #### L 500.4100, L501.9985, L502.0250, L500.4050 #### [facility] [address] [place], [address] Urea nitrogen [Mass/Vol] 26 mg/dL High 7-18 [facility] Comment on above: Performed By: #### L 500.4100, L501.9985, L502.0250, L500.4050 #### [facility] [address] [place], [address] Hemoglobin A1con 06-16-2024 HbA1c (Bld) [Mass fraction] 6.4 % High 3.8-5.6 [facility] Comment on above: Result Comment: Norm al < 5.7 % Prediabetic 5.7 - 6.4 % Diabetic >or= 6.5 % Please note range changes. Performed By: #### L 500.2500, L501.0900 #### [facility] [address] [place], [address] LIPID PANEL (OUTSIDE)on 06-07 LDL:HDL Ratio [facility] Non-HDL Cholesterol [facility] TC:HDL Ratio [facility] VLDL Cholesterol [facility] Lipid Profileon 06-16-2024 Cholesterol [Mass/Vol] 159 mg/dL Normal [address] [facility] Comment on above: Result Comment: <200 mg/dL Desirable 200-240 mg/dL Borderline >240 mg/dL High Risk Performed By: #### L 500.2500, L501.0900 #### [facility] [address] [place], [address] Cholesterol in HDL [Mass/Vol] 37 mg/dL Low [facility] Comment on above: Result Comment: The drugs N-Acetylcysteine and Metamizole may falsely depress this assay. Reference Range HDL <40 mg/dL Low HDL Cholesterol HDL >or= 60 mg/dL High HDL Cholesterol Performed By: #### L 500.2500, L501.0900 #### [facility] [address] [place], [address] Cholesterol in LDL [Mass/Vol] 90 mg/dL Normal 0-130 [facility] Comment on above: Performed By: #### L 500.2500, L501.0900 #### [facility] [address] [place], [address] Cholesterol in VLDL [Mass/Vol] 32 mg/dL Normal 5-40 [facility] Comment on above: Performed By: #### L 500.2500, L501.0900 #### [facility] [address] [place], [address] Triglyceride [Mass/Vol] 160 mg/dL Normal [facility] Comment on above: Result Comment: The drugs N-Acetylcysteine and Metamizole may falsely depress this assay. Serum Triglycerides Reference Interval Normal <150 mg/dL Borderline high 150 - 199 mg/dL High 200 - 499 mg/dL Very High > or = 500 mg/dL Performed By: #### L 500.2500, L501.0900 #### [facility] [address] [place], [address] MICROALBUMIN/CREATININE UR W RATIO (EXTERNAL)on 06-16-2024 Albumin/Creat Ratio 727 [facility] Creatinine Urine 100 [facility] Microalbumin, Random urine 727 [facility] Microalb:Creat Ratio,Random URon 06-16-2024 Creatinine [Mass/Vol] 100.00 mg/dL Normal NO RAN GE EST. [facility] Comment on above: Performed By: #### L 500.2500, L501.0900 #### [facility] [address] [place], [address] MALB:CRE 727.0 mg/g CRE High <30 mg/g CRE [facility] Comment on above: Performed By: #### L 500.2500, L501.0900 #### [facility] [address] [place], [address] MICROALBUMIN,UR 727.0 mg/L Normal NO RANGE EST. [facility] Comment on above: Performed By: #### L 500.2500, L501.0900 #### [facility] [address] [place], [address] No Panel Informationon 06-16 Interpretation and review of laboratory results Abnormal [facility] RODRI [facility]ALE ([id number]) 1955 M Date Time Provider Department 06/15/24 CLARIBEL COPE ENW[facility] During your visit today, we recorded the following information about you: Lisandra Velásquez MA 06/15/2024 9:34 AM Signed Patients dropped off [employer] non formulary notice she received in mail. She would like provider to to consider switching to Novolog units-100 Insulin Aspart subcutaneous solution or Novolog Flexpen units-100 insulin aspart subcutaneous as per notice. Allergies As of Date: 06/15/2024 Noted Allergy Reaction BACTRIM (SULFAMETHOXAZOLE) 02/13/2013 4 - Hives METFORMIN 01/02/2008 2 - Rash LIPITOR (ATORVASTATIN CALCIUM) 10/10/2011 14 - Other: See Comments Comments: myalgia NORVASC (AMLODIPINE BESYLATE) 08/31/2014 7 - Swelling Date Reviewed: 04/29/2024 Reviewed by: Lisandra Velásquez MA - Fully Assessed Reason for Visit: Patient Update [1234] Cmt: [employer] non formulary notice Prescriptions as of 06/15/2024 - labetalol (TRANDATE) 100 mg tablet Take 1.5 tablets by mouth two times a day. - FARXIGA 10 mg tablet Take 10 mg by mouth once daily. - lisinopril (ZESTRIL) 5 mg tablet Take 5 mg by mouth once daily. - NIFEdipine ER (PROCARDIA XL) 30 mg 24 hr tablet Take 1 tablet by mouth once daily. - rosuvastatin (CRESTOR) 10 mg tablet Take 1 tablet by mouth once daily. - finasteride (PROSCAR) 5 mg tablet Take 1 tablet by mouth once daily. - Insulin [place], Disposable, (BD ULTRAFINE III MINI PEN) 31 gauge x 3/16 use four times/day - blood sugar diagnostic (TRUE METRIX GLUCOSE TEST STRIP) test strip Use as instructed - Test blood sugar three times daily. E11.9 Insulin: yes - insulin glargine (LANTUS SOLOSTAR U-100 INSULIN) 100 unit/mL (3 mL) INJECT 25 Units at bedtime - insulin aspart U-100 (NOVOLOG FLEXPEN U-100 INSULIN) 100 unit/mL (3 mL) Inject 4 units with breakfast, use 6 units with lunch and dinner. PLUS SLIDING SCALE #1 (based on pre meal blood sugar) TDD~40 - Cholecalciferol, Vitamin D3, 50 mcg (2,000 unit) cap Take by mouth. OTC - take one tablet daily - tacrolimus ER (ENVARSUS XR) 1 mg tablet Take 1 tablet by mouth once daily. - mycophenolate sodium DR (MYFORTIC) 360 mg TbEC Take 720 mg by mouth twice daily. - aspirin, enteric coated (ASPIRIN, ENTERIC COATED) 81 mg EC tablet Take 81 mg by mouth once daily. - Lancets (ONE TOUCH DELICA) lancets Test blood sugar(s) 4 daily. Dx: 250.02 Insulin: Yes Problem List As Of Date 06/15/2024 Noted Resolved Essential hypertension, benign [I10] Hyperlipidemia, mixed [E78.2] Sebaceous cyst [L72.3] 04/24/2007 09/20/2016 Erectile dysfunction [N52.9] 02/24/2010 Osteoarthritis of left knee [M17.12] 02/16/2011 BPH (benign prostatic hyperplasia) [N40.0] 03/06/2012 Hearing loss [H91.90] 09/10/2012 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*02/13/2013 DM (diabetes mellitus) type II uncontrolled wit*08/31/2014 08/21/2018 Chronic 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 (HCC*02/28/2015 06/06/2020 Fracture of forearm, closed [S52.90XA] 01/25/2016 09/20/2016 Type 2 diabetes mellitus with right eye affecte*09/20/2016 Essential tremor [G25.0] 09/20/2016 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 [N18.2*07/12/2017 Hypocalcemia [E83.51] 07/31/2017 03/07/2018 Vitamin D deficiency [E55.9] 07/31/2017 End stage kidney disease (HCC) [N18.6] 11/06/2017 06/06/2020 Type 2 diabetes mellitus with left eye affected*08/21/2018 Restless leg syndrome [G25.81] 12/05/2018 Chronic pain of right knee [M25.561, G89.29] 12/05/2018 06/06/2020 Diabetic ulcer of toe of right foot associated *12/05/2018 06/06/2020 Type 2 diabetes mellitus with stage 2 chronic k*08/21/2019 Renal transplant recipient [Z94.0] 11/23/2019 Witnessed episode of apnea [R06.81] 11/23/2019 Ex-smoker [Z87.891] 05/17/2021 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) [E13*05/17/2021 Diabetic eye exam (HCC) [Z01.00, E11.9] 10/09/2021 Prostate disorder [N42.9] 11/06/2021 Medicare annual wellness visit, subsequent [Z00*11/16/[address] [Z78.9] 11/16/2021 Advance directive discussed with patient [Z71.8*11/16/2021 Right rotator cuff tear [M75.101] 11/16/2021 Screening for colon cancer [Z12.11] 10/01/2022 Encounter Status:Closed by LISANDRA [facility] RODRI [facility] ([id number]) 1955 M Date Time Provider Department 06/05/24 [facility] During your visit today, we recorded the following information about you: Clarita Thompson RN 06/05/2024 8:25 AM Signed Patient's calling and requesting patient's active lab orders be faxed to [facility] where patient will have them completed. Faxed as requested. Clarita Thompson RN Allergies As of Date: 06/05/2024 Noted Allergy Reaction BACTRIM (SULFAMETHOXAZOLE) 02/13/2013 4 - Hives METFORMIN 01/02/2008 2 - Rash LIPITOR (ATORVASTATIN CALCIUM) 10/10/2011 14 - Other: See Comments Comments: myalgia NORVASC (AMLODIPINE BESYLATE) 08/31/2014 7 - Swelling Date Reviewed: 04/29/2024 Reviewed by: Lisandra Velásquez MA - Fully Assessed Reason for Visit: Patient Request [[id number]] Prescriptions as of 06/05/2024 - FARXIGA 10 mg tablet Take 10 mg by mouth once daily. - lisinopril (ZESTRIL) 5 mg tablet Take 5 mg by mouth once daily. - NIFEdipine ER (PROCARDIA XL) 30 mg 24 hr tablet Take 1 tablet by mouth once daily. - rosuvastatin (CRESTOR) 10 mg tablet Take 1 tablet by mouth once daily. - finasteride (PROSCAR) 5 mg tablet Take 1 tablet by mouth once daily. - labetalol (TRANDATE) 100 mg tablet Take 1.5 tablets by mouth two times a day. - Insulin [place], Disposable, (BD ULTRAFINE III MINI PEN) 31 gauge x 3/16 use four times/day - blood sugar diagnostic (TRUE METRIX GLUCOSE TEST STRIP) test strip Use as instructed - Test blood sugar three times daily. E11.9 Insulin: yes - insulin glargine (LANTUS SOLOSTAR U-100 INSULIN) 100 unit/mL (3 mL) INJECT 25 Units at bedtime - insulin aspart U-100 (NOVOLOG FLEXPEN U-100 INSULIN) 100 unit/mL (3 mL) Inject 4 units with breakfast, use 6 units with lunch and dinner. PLUS SLIDING SCALE #1 (based on pre meal blood sugar) TDD~40 - Cholecalciferol, Vitamin D3, 50 mcg (2,000 unit) cap Take by mouth. OTC - take one tablet daily - tacrolimus ER (ENVARSUS XR) 1 mg tablet Take 1 tablet by mouth once daily. - mycophenolate sodium DR (MYFORTIC) 360 mg TbEC Take 720 mg by mouth twice daily. - aspirin, enteric coated (ASPIRIN, ENTERIC COATED) 81 mg EC tablet Take 81 mg by mouth once daily. - Lancets (ONE TOUCH DELICA) lancets Test blood sugar(s) 4 daily. 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 DM (diabetes mellitus) type II uncontrolled wit*08/31/2014 08/21/2018 Chronic 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 (HCC*02/28/2015 06/06/2020 Fracture of forearm, closed [S52.90XA] 01/25/2016 09/20/2016 Type 2 diabetes mellitus with right eye affecte*09/20/2016 Essential tremor [G25.0] 09/20/2016 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 [N18.2*07/12/2017 Hypocalcemia [E83.51] 07/31/2017 03/07/2018 Vitamin D deficiency [E55.9] 07/31/2017 End stage kidney disease (HCC) [N18.6] 11/06/2017 06/06/2020 Type 2 diabetes mellitus with left eye affected*08/21/2018 Restless leg syndrome [G25.81] 12/05/2018 Chronic pain of right knee [M25.561, G89.29] 12/05/2018 06/06/2020 Diabetic ulcer of toe of right foot associated *12/05/2018 06/06/2020 Type 2 diabetes mellitus with stage 2 chronic k*08/21/2019 Renal transplant recipient [Z94.0] 11/23/2019 Witnessed episode of apnea [R06.81] 11/23/2019 Ex-smoker [Z87.891] 05/17/2021 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) [E13*05/17/2021 Diabetic eye exam (HCC) [Z01.00, E11.9] 10/09/2021 Prostate disorder [N42.9] 11/06/2021 Medicare annual wellness visit, subsequent [Z00*11/16/[address] [Z78.9] 11/16/2021 Advance directive discussed with patient [Z71.8*11/16/2021 Right rotator cuff tear [M75.101] 11/16/2021 Screening for colon cancer [Z12.11] 10/01/2022 Encounter Status:Closed by CLARITA THOMPSON on 06/05/24 Normal [facility] Basic Metabolic Profile (BMP )on 04-20-2024 BUN/CRE 16.5 RATIO Normal 04-26 [facility] Comment on above: Performed By: #### L 500.2500, L501.0900 #### [facility] [address] [place], [address] CA,Total 9.1 mg/dL Normal 8.5-10.1 [facility] Comment on above: Performed By: #### L 500.2500, L501.0900 #### [facility] [address] [place], [address] Chloride [Moles/Vol] 112 mmol/L High 98-107 [facility] Comment on above: Performed By: #### L 500.2500, L501.0900 #### [facility] [address] [place], [address] CO2 [Moles/Vol] 22.0 mmol/L Normal 21.0-32.0 [facility] Comment on above: Performed By: #### L 500.2500, L501.0900 #### [facility] [address] [place], [address] Creatinine [Mass/Vol] 1.15 mg/dL Normal 0.70-1.30 [facility] Comment on above: Result Comment: The validity of the calculated GFR GFRAA in patients over 70 years has not been determined. Clinical correlation is essential. Performed By: #### L 500.2500, L501.0900 #### [facility] [address] [place], [address] EST GFR - AA 81 mL/min Normal >60 [facility] Comment on above: Result Comment: Afri can Marshallese GFR Calc Performed By: #### L 500.2500, L501.0900 #### [facility] [address] [place], [address] GAP 10 Normal 5-15 [facility] Comment on above: Performed By: #### L 500.2500, L501.0900 #### [facility] [address] [place], [address] GFR/1.73 sq M.predicted among non-blacks MDRD (S/P/Bld) [Vol rate/Area] 67 mL/min/{1.73_m2} Normal >60 [facility] Comment on above: Result Comment: Non- GFR Calc Performed By: #### L 500.2500, L501.0900 #### [facility] [address] [place], [address] Glucose [Mass/Vol] 86 mg/dL Normal 74-106 [facility] Comment on above: Performed By: #### L 500.2500, L501.0900 #### [facility] [address] [place], [address] Potassium [Moles/Vol] 4.1 mmol/L Normal 3.5-5.1 [facility] Comment on above: Performed By: #### L 500.2500, L501.0900 #### [facility] [address] [place], [address] Sodium [Moles/Vol] 143 mmol/L Normal 136-145 [facility] Comment on above: Performed By: #### L 500.2500, L501.0900 #### [facility] [address] [place], [address] Urea nitrogen [Mass/Vol] 19 mg/dL High 7-18 [facility] Comment on above: Performed By: #### L 500.2500, L501.0900 #### [facility] [address] [place], [address] Protein+Creatinine Ratio,Uri neon 04-20-2024 PROT:CRE RATIO 2563 mg/g CRE High 0-200 [facility] Comment on above: Performed By: #### L 500.2500, L501.0900 #### [facility] [address] [place], [address] Protein (U) [Mass/Vol] 196.8 mg/dL High <11.9 [facility] Comment on above: Performed By: #### L 500.2500, L501.0900 #### [facility] [address] [place], [address] UR CREAT 76.80 mg/dL Normal NO RANGE EST. [facility] Comment on above: Performed By: #### L 500.2500, L501.0900 #### [facility] [address] [place], [address] Basophil percentageOrdered B y: Judd Coffeysing on 09-13-2023 Chloride [Moles/Vol] 111 mmol/L 98-107 [facility] Glucose [Mass/Vol] 141 mg/dL 74-106 [facility] Comment on above: Fasting Glucose resu lt greater than or equal to 126 mg/dL suggests DIABETES MELLITUS per A.D.A. criteria. Potassium [Moles/Vol] 4.4 mmol/L 3.5-5.1 [facility] Sodium [Moles/Vol] 141 mmol/L 136-145 [facility] Laboratory - Chemistry and C hemistry - challengeOrdered By: Judd Dey on 09-13-2023 CO2 [Moles/Vol] 25.0 mmol/L 21.0-32.0 [facility] Urea nitrogen/Creatinine [Mass ratio] 17.7 mg/mg 10-20 [facility] No Panel InformationOrdered By: Judd Dey on 09-13-2023 Estimated GFR (MDRD) Amer 75 mL/min >60 [facility] Comment on above: GFR Calc Estimated GFR (MDRD) Non-Af Amer 62 mL/min >60 [facility] Comment on above: Non- GFR Calc Serum or plasma calcium jenny urement (mass/volume)Ordered By: Judd Dey on 09-13-2023 Calcium [Mass/Vol] 8.9 mg/dL 8.5-10.1 [facility] Serum or plasma creatinine m easurement (mass/volume)Ordered By: Judd Dey on 09-13-2023 Creatinine [Mass/Vol] 1.24 mg/dL 0.70-1.30 [facility] Comment on above: The validity of the calculated GFR & GFRAA in patients over 70 years has not been determined. Clinical correlation is essential. Serum or plasma urea nitroge n measurement (mass/volume)Ordered By: Judd Dey on 09-13-2023 Urea nitrogen [Mass/Vol] 22 mg/dL 7-18 [facility] Thin prep Papanicolaou smear with manual screeningOrdered By: Judd Dey on 09-13-2023 Protein (U) [Mass/Vol] 49.5 mg/dL 0.0-11.8 [facility] Thin prep Papanicolaou smear with manual screening 5 5-15 [facility] Urine creatinine measurement (mass/volume)Ordered By: [facility] on 09-13-2023 Creatinine (U) [Mass/Vol] 148.00 mg/dL NO RANGE EST. [facility] Urine protein/creatinine mas s ratioOrdered By: Judd Bravoraymond on 09-13-2023 Protein/Creatinine (U) [Mass ratio] 334 mg/g CRE 0-200 [facility] Absolute lymphocyte countOrd ered By: Jim Squires on 08-14-2023 Lymphocytes Auto (Unsp spec) [#/Vol] 1.15 10*3/uL 0.83-4.51 [facility] Automated lymphocyte count a s percentage of total leukocytesOrdered By: Jim Squires on 08-14-2023 Lymphocytes/100 WBC Auto (Unsp spec) 17.3 % 19-41 [facility] Basophil percentageOrdered B y: Jim Squires on 08-14-2023 Basophil percentage 3.6 mg/dL 2.5-4.9 [facility] Basophils/100 WBC (Bld) 0.9 % 0-1 [facility] Chloride [Moles/Vol] 114 mmol/L 98-107 [facility] Eosinophils/100 WBC (Bld) 2.9 % 0-5 [facility] Glucose [Mass/Vol] 137 mg/dL 74-106 [facility] Comment on above: Fasting Glucose resu lt greater than or equal to 126 mg/dL suggests DIABETES MELLITUS per A.D.A. criteria. Hemoglobin (Bld) [Mass/Vol] 12.4 g/dL 13.0-16.5 [facility] Monocytes/100 WBC (Bld) 11.1 % 0-10 [facility] Neutrophils (Bld) [#/Vol] 4.5 10*3/uL 2.0-7.7 [facility] Neutrophils/100 WBC (Bld) 67.5 % 47-70 [facility] Potassium [Moles/Vol] 3.9 mmol/L 3.5-5.1 [facility] Sodium [Moles/Vol] 141 mmol/L 136-145 [facility] WBC (Bld) [#/Vol] 6.6 10*3/uL 4.4-11.0 [facility] Determination of erythrocyte mean corpuscular volume (MCV)Ordered By: Jim Squires on 08-14-2023 MCV (RBC) [Entitic vol] 86.6 fL 80-94 [facility] Erythrocyte distribution wid th ratioOrdered By: Jim Squires on 08-14-2023 Erythrocyte distribution width (RBC) [Ratio] 13.2 % 11.6-14.6 [facility] Erythrocyte distribution wid th standard deviationOrdered By: Jim Squires on 08-14-2023 Erythrocyte distribution width (RBC) [Entitic vol] 41.3 fL 35.1-43.9 [facility] Hematocrit Auto (Bld) [Volum e fraction]Ordered By: Jim Squires on 08-14-2023 Hematocrit (Bld) [Volume fraction] 39.4 % 40-54 [facility] Immature granulocytes/100 WB C Auto (Bld)Ordered By: Jim Squires on 08-14-2023 Immature granulocytes/100 WBC (Bld) 0.300 % 0.0-0.9 [facility] Comment on above: IG% - Immature Granu locytes (promyelocytes, myelocytes and metamyelocytes) > 1% indicates that a LEFT SHIFT is Present. Laboratory - Chemistry and C hemistry - challengeOrdered By: Jim Squires on 08-14-2023 CO2 [Moles/Vol] 23.0 mmol/L 21.0-32.0 [facility] Magnesium [Mass/Vol] 2.0 mg/dL 1.6-2.6 [facility] Urea nitrogen/Creatinine [Mass ratio] 15.8 mg/mg 10-20 [facility] - Hematology and Cell countsOrdered By: Jim Squires on 08-14-2023 MCH (RBC) [Entitic mass] 27.3 pg 27.0-32.0 [facility] MCHC (RBC) [Mass/Vol] 31.5 g/dL 32-36 [facility] Nucleated RBC/100 WBC (Bld) [Ratio] 0 % 0-5 [facility] Platelet mean volume (Bld) [Entitic vol] 10.6 fL 6.2-12.0 [facility] Platelets (Bld) [#/Vol] 244 10*3/uL 150-450 [facility] No Panel InformationOrdered By: Jim Squires on 08-14-2023 Estimated GFR (MDRD) Amer 82 mL/min >60 [facility] Comment on above: GFR Calc Estimated GFR (MDRD) Non-Af Amer 68 mL/min >60 [facility] Comment on above: Non- GFR Calc Tacrolimus (Prograf) Level 4.4 ng/mL 2.0-20.0 [facility] Comment on above: Trough (immediately following transplant) 15.0 Trough (steady state, 2 weeks or more after transplant): 3.0 - 8.0 Performed by LC-MS/MS technology.Performed at: [facility] [id number] Director: Martínez Orellana MD, Phone: [phone] RBC Auto (Bld) [#/Vol]Ordere d By: Jim Squires on 08-14-2023 RBC (Bld) [#/Vol] 4.55 10*6/uL 4.6-6.2 [facility] Serum or plasma calcium jenny urement (mass/volume)Ordered By: Jim Squires on 08-14-2023 Calcium [Mass/Vol] 9.1 mg/dL 8.5-10.1 [facility] Serum or plasma creatinine m easurement (mass/volume)Ordered By: Jim Squires on 08-14-2023 Creatinine [Mass/Vol] 1.14 mg/dL 0.70-1.30 [facility] Comment on above: The validity of the calculated GFR & GFRAA in patients over 70 years has not been determined. Clinical correlation is essential. Serum or plasma urea nitroge n measurement (mass/volume)Ordered By: Jim Squires on 08-14-2023 Urea nitrogen [Mass/Vol] 18 mg/dL 7-18 [facility] Thin prep Papanicolaou smear with manual screeningOrdered By: Jim Squires on 08-14-2023 Thin prep Papanicolaou smear with manual screening 4 5-15 [facility] Absolute lymphocyte countOrd ered By: Jim Squires on 05-16-2023 Lymphocytes Auto (Unsp spec) [#/Vol] 1.27 10*3/uL 0.83-4.51 [facility] Basophil percentageOrdered B y: Jim Squires on 05-16-2023 Basophil percentage 3.3 mg/dL 2.5-4.9 [facility] Basophils/100 WBC (Bld) 0.7 % 0-1 [facility] Bilirubin [Mass/Vol] 0.40 mg/dL 0.20-1.00 [facility] Comment on above: For patients on eltr ombopag therapy, use of Dimension [place] TBIL is not recommended. Chloride [Moles/Vol] 112 mmol/L 98-107 [facility] Cholesterol [Mass/Vol] 159 mg/dL <200 [facility] Comment on above: <200 mg/dL Desirable 200-240 mg/dL Borderline >240 mg/dL High Risk Eosinophils/100 WBC (Bld) 2.2 % 0-5 [facility] Glucose [Mass/Vol] 116 mg/dL 74-106 [facility] Comment on above: Fasting Glucose resu lt from 100 to 125 mg/dL suggests IMPAIRED HOMEOSTASIS per A.D.A. criteria. Neutrophils (Bld) [#/Vol] 4.8 10*3/uL 2.0-7.7 [facility] Neutrophils/100 WBC (Bld) 69.8 % 47-70 [facility] Potassium [Moles/Vol] 3.9 mmol/L 3.5-5.1 [facility] Protein [Mass/Vol] 6.9 g/dL 6.4-8.2 [facility] Sodium [Moles/Vol] 141 mmol/L 136-145 [facility] Triglyceride [Mass/Vol] 146 mg/dL <199 [facility] Comment on above: The drugs N-Acetylcy steine and Metamizole may falsely depress this assay.Serum Triglycerides Reference Interval Normal <150 mg/dL Borderline high 150 - 199 mg/dL High 200 - 499 mg/dL Very High > or = 500 mg/dL WBC (Bld) [#/Vol] 6.9 10*3/uL 4.4-11.0 [facility] Blood erythrocytes count (nu mber/volume)Ordered By: Jim Squires on 05-16-2023 RBC (Bld) [#/Vol] 4.54 10*6/uL 4.6-6.2 [facility] Blood hemoglobin measurement (mass/volume)Ordered By: Jim Squires on 05-16-2023 Hemoglobin (Bld) [Mass/Vol] 12.4 g/dL 13.0-16.5 [facility] Blood lymphocytes/100 leukoc ytesOrdered By: Jim Squires on 05-16-2023 Lymphocytes/100 WBC (Bld) 18.3 % 19-41 [facility] Blood monocytes/100 leukocyt esOrdered By: Jim Squires on 05-16-2023 Monocytes/100 WBC (Bld) 8.6 % 0-10 [facility] Blood platelet mean volumeOr dered By: Jim Squires on 05-16-2023 Platelet mean volume (Bld) [Entitic vol] 10.3 fL 6.2-12.0 [facility] Determination of erythrocyte mean corpuscular volume (MCV)Ordered By: Jim Squires on 05-16-2023 MCV (RBC) [Entitic vol] 86.8 fL 80-94 [facility] Hematocrit Auto (Bld) [Volum e fraction]Ordered By: Jim Squires on 05-16-2023 Hematocrit (Bld) [Volume fraction] 39.4 % 40-54 [facility] Iron measurement (mass/mass) Ordered By: Jim Squires on 05-16-2023 Iron (Unsp spec) [Mass/Mass] 77 ug/dL 65-175 [facility] - Chemistry and C hemistry - challengeOrdered By: Jim Squires on 05-16-2023 ALP [Catalytic activity/Vol] 51 U/L 45-117 [facility] ALT [Catalytic activity/Vol] 16 U/L 16-61 [facility] CO2 [Moles/Vol] 25.0 mmol/L 21.0-32.0 [facility] Globulin (S) [Mass/Vol] 3.0 g/dL 2.2-4.2 [facility] Magnesium [Mass/Vol] 2.1 mg/dL 1.6-2.6 [facility] Transferrin [Mass/Vol] 192 mg/dL 177-329 [facility] Comment on above: Performed at: [address] [id number] Director: Martínez Orellana MD, Phone: [phone] at: - [facility] [id number] Director: Brad Berkowitz PhD, Phone: [phone] Urea nitrogen/Creatinine [Mass ratio] 16.8 mg/mg 10-20 [facility] - Hematology and Cell countsOrdered By: Jim Squires on 05-16-2023 Erythrocyte distribution width (RBC) [Entitic vol] 42.0 fL 35.1-43.9 [facility] Erythrocyte distribution width (RBC) [Ratio] 13.3 % 11.6-14.6 [facility] Immature granulocytes/100 WBC (Bld) 0.400 % 0.0-0.9 [facility] Comment on above: IG% - Immature Granu locytes (promyelocytes, myelocytes and metamyelocytes) > 1% indicates that a LEFT SHIFT is Present. MCH (RBC) [Entitic mass] 27.3 pg 27.0-32.0 [facility] Nucleated RBC/100 WBC (Bld) [Ratio] 0 % 0-5 [facility] MCHC Auto (RBC) [Mass/Vol]Or dered By: Jim Squires on 05-16-2023 MCHC (RBC) [Mass/Vol] 31.5 g/dL 32-36 [facility] No Panel InformationOrdered By: Jim Squires on 05-16-2023 Estimated GFR (MDRD) Amer 83 mL/min >60 [facility] Comment on above: GFR Calc Estimated GFR (MDRD) Non-Af Amer 69 mL/min >60 [facility] Comment on above: Non- GFR Calc Tacrolimus (Prograf) Level 5.5 ng/mL 2.0-20.0 [facility] Comment on above: Trough (immediately following transplant) 15.0 Trough (steady state, 2 weeks or more after transplant): 3.0 - 8.0 Performed by LC-MS/MS technology. Total Iron Binding Capacity 252 ug/dL 250-450 [facility] Urine Microalbumin/Creatinine Ratio 94.3 mg/g CRE <30 [facility] Platelets bldOrdered By: Adria Squires on 05-16-2023 Platelets (Bld) [#/Vol] 256 10*3/uL 150-450 [facility] Serum or plasma albumin jenny urement (mass/volume)Ordered By: Jim Squires on 05-16-2023 Albumin [Mass/Vol] 3.9 g/dL 3.2-5.0 [facility] Serum or plasma albumin/glob ulin mass ratioOrdered By: Jim Squires on 05-16-2023 Albumin/Globulin [Mass ratio] 1.3 {ratio} 0.9-2.4 [facility] Serum or plasma calcium jenny urement (mass/volume)Ordered By: Jim Squires on 05-16-2023 Calcium [Mass/Vol] 8.9 mg/dL 8.5-10.1 [facility] Serum or plasma cholesterol in HDL measurement (mass/volume)Ordered By: Jim Squires on 05-16-2023 Cholesterol in HDL [Mass/Vol] 42 mg/dL >40 [facility] Comment on above: The drugs N-Acetylcy steine and Metamizole may falsely depress this assay. Reference Range HDL <40 mg/dL Low HDL Cholesterol HDL >or= 60 mg/dL High HDL Cholesterol Serum or plasma cholesterol in VLDL measurement (mass/volume)Ordered By: Jim Squires on 05-16-2023 Cholesterol in VLDL [Mass/Vol] 29 mg/dL 5-40 [facility] Serum or plasma creatinine m easurement (mass/volume)Ordered By: Jim Squires on 05-16-2023 Creatinine [Mass/Vol] 1.13 mg/dL 0.70-1.30 [facility] Comment on above: The validity of the calculated GFR & GFRAA in patients over 70 years has not been determined. Clinical correlation is essential. Serum or plasma ferritin britany surement (mass/volume)Ordered By: Jim Squires on 05-16-2023 Ferritin [Mass/Vol] 575 ng/mL 26-388 [facility] Serum or plasma iron saturat ion measurement (mass fraction)Ordered By: Jim Squires on 05-16-2023 Iron saturation [Mass fraction] 30.6 % 15.0-55.0 [facility] Serum or plasma low density lipoprotein (LDL) cholesterol measurement (mass/volume)Ordered By: Jim Squires on 05-16-2023 Cholesterol in LDL [Mass/Vol] 88 mg/dL 0-130 [facility] Serum or plasma urea nitroge n measurement (mass/volume)Ordered By: Jim Squires on 05-16-2023 Urea nitrogen [Mass/Vol] 19 mg/dL 7-18 [facility] Thin prep Papanicolaou smear with manual screeningOrdered By: Jim Squires on 05-16-2023 Thin prep Papanicolaou smear with manual screening 17 U/L 15-37 [facility] Thin prep Papanicolaou smear with manual screening 4 5-15 [facility] Thin prep Papanicolaou smear with manual screening 115.0 mg/L NO RANGE EST. [facility] Urine creatinine measurement (mass/volume)Ordered By: Jim Squires on 05-16-2023 Creatinine (U) [Mass/Vol] 122.00 mg/dL NO RANGE EST. [facility] Urine protein measurement (m ass/volume)Ordered By: Jim Squires on 05-16-2023 Protein (U) [Mass/Vol] 28.6 mg/dL 0.0-11.8 [facility] Urine protein/creatinine mas s ratioOrdered By: Jim Squires on 05-16-2023 Protein/Creatinine (U) [Mass ratio] 234 mg/g CRE 0-200 [facility] Whole blood hemoglobin A1c/t otal hemoglobin ratio (mass fraction)Ordered By: Jim Squires on 05-16-2023 HbA1c (Bld) [Mass fraction] 6.2 % 3.8-5.6 [facility] Comment on above: Normal < 5.7 % Predi abetic 5.7 - 6.4 % Diabetic >or= 6.5 % Please note range changes. Absolute lymphocyte countOrd ered By: Jim Squires on 02-06-2023 Lymphocytes Auto (Unsp spec) [#/Vol] 1.77 10*3/uL 0.83-4.51 [facility] Basophil percentageOrdered B y: Jim Squires on 02-06-2023 Basophil percentage 3.4 mg/dL 2.5-4.9 [facility] Basophils/100 WBC (Bld) 0.9 % 0-1 [facility] Chloride [Moles/Vol] 111 mmol/L 98-107 [facility] Eosinophils/100 WBC (Bld) 3.2 % 0-5 [facility] Glucose [Mass/Vol] 114 mg/dL 74-106 [facility] Comment on above: Fasting Glucose resu lt from 100 to 125 mg/dL suggests IMPAIRED HOMEOSTASIS per A.D.A. criteria. Neutrophils (Bld) [#/Vol] 4.9 10*3/uL 2.0-7.7 [facility] Neutrophils/100 WBC (Bld) 63.9 % 47-70 [facility] Potassium [Moles/Vol] 4.4 mmol/L 3.5-5.1 [facility] Sodium [Moles/Vol] 141 mmol/L 136-145 [facility] WBC (Bld) [#/Vol] 7.7 10*3/uL 4.4-11.0 [facility] Blood erythrocytes count (nu mber/volume)Ordered By: Jim Squires on 02-06-2023 RBC (Bld) [#/Vol] 4.61 10*6/uL 4.6-6.2 [facility] Blood hemoglobin measurement (mass/volume)Ordered By: Jim Squires on 02-06-2023 Hemoglobin (Bld) [Mass/Vol] 12.8 g/dL 13.0-16.5 [facility] Blood lymphocytes/100 leukoc ytesOrdered By: Jim Squires on 02-06-2023 Lymphocytes/100 WBC (Bld) 22.9 % 19-41 [facility] Blood monocytes/100 leukocyt esOrdered By: Jim Squires on 02-06-2023 Monocytes/100 WBC (Bld) 8.7 % 0-10 [facility] Blood platelet mean volumeOr dered By: Jim Squires on 02-06-2023 Platelet mean volume (Bld) [Entitic vol] 10.2 fL 6.2-12.0 [facility] Determination of erythrocyte mean corpuscular volume (MCV)Ordered By: Jim Squires on 02-06-2023 MCV (RBC) [Entitic vol] 88.3 fL 80-94 [facility] Hematocrit Auto (Bld) [Volum e fraction]Ordered By: Jim Squires on 02-06-2023 Hematocrit (Bld) [Volume fraction] 40.7 % 40-54 [facility] Laboratory - Chemistry and C hemistry - challengeOrdered By: Jim Squires on 02-06-2023 CO2 [Moles/Vol] 24.0 mmol/L 21.0-32.0 [facility] Magnesium [Mass/Vol] 2.2 mg/dL 1.6-2.6 [facility] Urea nitrogen/Creatinine [Mass ratio] 12.4 mg/mg 10-20 [facility] - Hematology and Cell countsOrdered By: Jim Squires on 02-06-2023 Erythrocyte distribution width (RBC) [Entitic vol] 42.3 fL 35.1-43.9 [facility] Erythrocyte distribution width (RBC) [Ratio] 13.1 % 11.6-14.6 [facility] Immature granulocytes/100 WBC (Bld) 0.400 % 0.0-0.9 [facility] Comment on above: IG% - Immature Granu locytes (promyelocytes, myelocytes and metamyelocytes) > 1% indicates that a LEFT SHIFT is Present. MCH (RBC) [Entitic mass] 27.8 pg 27.0-32.0 [facility] Nucleated RBC/100 WBC (Bld) [Ratio] 0 % 0-5 [facility] MCHC Auto (RBC) [Mass/Vol]Or dered By: Jim Squires on 02-06-2023 MCHC (RBC) [Mass/Vol] 31.4 g/dL 32-36 [facility] No Panel InformationOrdered By: Jim Squires on 02-06-2023 Estimated GFR (MDRD) Amer 71 mL/min >60 [facility] Comment on above: GFR Calc Estimated GFR (MDRD) Non-Af Amer 59 mL/min >60 [facility] Comment on above: Non- GFR Calc Tacrolimus (Prograf) Level 6.4 ng/mL 2.0-20.0 [facility] Comment on above: Trough (immediately following transplant) 15.0 Trough (steady state, 2 weeks or more after transplant): 3.0 - 8.0 Performed by LC-MS/MS technology.Performed at: [address] [id number] Director: Martínez Orellana MD, Phone: [phone] Platelets bldOrdered By: Adria Squires on 02-06-2023 Platelets (Bld) [#/Vol] 235 10*3/uL 150-450 [facility] Serum or plasma calcium jenny urement (mass/volume)Ordered By: Jim Squires on 02-06-2023 Calcium [Mass/Vol] 9.6 mg/dL 8.5-10.1 [facility] Serum or plasma creatinine m easurement (mass/volume)Ordered By: Jim Squires on 02-06-2023 Creatinine [Mass/Vol] 1.29 mg/dL 0.70-1.30 [facility] Comment on above: The validity of the calculated GFR & GFRAA in patients over 70 years has not been determined. Clinical correlation is essential. Serum or plasma urea nitroge n measurement (mass/volume)Ordered By: Jim Squires on 02-06-2023 Urea nitrogen [Mass/Vol] 16 mg/dL 7-18 [facility] Thin prep Papanicolaou smear with manual screeningOrdered By: Jim Squires on 02-06-2023 Thin prep Papanicolaou smear with manual screening 6 5-15 [facility] Absolute lymphocyte countOrd ered By: Lindsay Meza on 01-07-2023 Lymphocytes Auto (Unsp spec) [#/Vol] 0.80 10*3/uL 0.83-4.51 [facility] Basophil percentageOrdered B y: Lindsay Meza on 01-07-2023 Basophils/100 WBC (Bld) 0.4 % 0-1 [facility] Bilirubin [Mass/Vol] 0.40 mg/dL 0.20-1.00 [facility] Comment on above: For patients on eltr ombopag therapy, use of Dimension [place] TBIL is not recommended. Chloride [Moles/Vol] 112 mmol/L 98-107 [facility] Eosinophils/100 WBC (Bld) 1.3 % 0-5 [facility] Glucose [Mass/Vol] 215 mg/dL 74-106 [facility] Comment on above: Glucose result great er than or equal to 200 mg/dLsuggests DIABETES MELLITUS per A.D.A. criteria. Neutrophils (Bld) [#/Vol] 11.5 10*3/uL 2.0-7.7 [facility] Neutrophils/100 WBC (Bld) 84.4 % 47-70 [facility] Potassium [Moles/Vol] 3.3 mmol/L 3.5-5.1 [facility] Protein [Mass/Vol] 6.0 g/dL 6.4-8.2 [facility] Sodium [Moles/Vol] 139 mmol/L 136-145 [facility] WBC (Bld) [#/Vol] 13.6 10*3/uL 4.4-11.0 [facility] Blood erythrocytes count (nu mber/volume)Ordered By: Lindsay Meza on 01-07-2023 RBC (Bld) [#/Vol] 3.48 10*6/uL 4.6-6.2 [facility] Blood hemoglobin measurement (mass/volume)Ordered By: Lindsay Meza on 01-07-2023 Hemoglobin (Bld) [Mass/Vol] 9.9 g/dL 13.0-16.5 [facility] Blood lymphocytes/100 leukoc ytesOrdered By: Lindsay Meza on 01-07-2023 Lymphocytes/100 WBC (Bld) 5.9 % 19-41 [facility] Blood monocytes/100 leukocyt esOrdered By: Lindsay Meza on 01-07-2023 Monocytes/100 WBC (Bld) 7.1 % 0-10 [facility] Blood platelet mean volumeOr dered By: Lindsay Meza on 01-07-2023 Platelet mean volume (Bld) [Entitic vol] 9.9 fL 6.2-12.0 [facility] Determination of erythrocyte mean corpuscular volume (MCV)Ordered By: Lindsay Meza on 01-07-2023 MCV (RBC) [Entitic vol] 87.6 fL 80-94 [facility] Glucose Glucometer (BldC) [M ass/Vol]Ordered By: Lindsay Meza on 01-07-2023 Glucose [Mass/Vol] 230 mg/dL 74-106 [facility] Comment on above: MANAGEMENT OF PATIEN T CARE PER NURSING PROTOCOL Glucose [Mass/Vol] 221 mg/dL 74-106 [facility] Comment on above: MANAGEMENT OF PATIEN T CARE PER NURSING PROTOCOL Hematocrit Auto (Bld) [Volum e fraction]Ordered By: Lindsay Meza on 01-07-2023 Hematocrit (Bld) [Volume fraction] 30.5 % 40-54 [facility] Laboratory - Chemistry and C hemistry - challengeOrdered By: Lindsay Meza on 01-07-2023 ALP [Catalytic activity/Vol] 44 U/L 45-117 [facility] ALT [Catalytic activity/Vol] 12 U/L 16-61 [facility] CO2 [Moles/Vol] 21.0 mmol/L 21.0-32.0 [facility] Globulin (S) [Mass/Vol] 3.6 g/dL 2.2-4.2 [facility] Urea nitrogen/Creatinine [Mass ratio] 8.9 mg/mg 10-20 [facility] Laboratory - Hematology and Cell countsOrdered By: Lindsay Meza on 01-07-2023 Erythrocyte distribution width (RBC) [Entitic vol] 41.1 fL 35.1-43.9 [facility] Erythrocyte distribution width (RBC) [Ratio] 12.9 % 11.6-14.6 [facility] Immature granulocytes/100 WBC (Bld) 0.900 % 0.0-0.9 [facility] Comment on above: IG% - Immature Granu locytes (promyelocytes, myelocytes and metamyelocytes) > 1% indicates that a LEFT SHIFT is Present. MCH (RBC) [Entitic mass] 28.4 pg 27.0-32.0 [facility] Nucleated RBC/100 WBC (Bld) [Ratio] 0 % 0-5 [facility] MCHC Auto (RBC) [Mass/Vol]Or dered By: Lindsay Meza on 01-07-2023 MCHC (RBC) [Mass/Vol] 32.5 g/dL 32-36 [facility] No Panel InformationOrdered By: Lindsay Meza on 07-03-2023 Estimated Creatinine Clearance Calc 66.08 ml/min [facility] Estimated GFR (MDRD) Amer 84 mL/min >60 [facility] Comment on above: GFR Calc Estimated GFR (MDRD) Non-Af Amer 69 mL/min >60 [facility] Comment on above: Non- GFR Calc Platelets bldOrdered By: Joaquin Meza on 01-07-2023 Platelets (Bld) [#/Vol] 307 10*3/uL 150-450 [facility] Serum or plasma albumin jenny urement (mass/volume)Ordered By: Lindsay Meza on 01-07-2023 Albumin [Mass/Vol] 2.4 g/dL 3.2-5.0 [facility] Serum or plasma albumin/glob ulin mass ratioOrdered By: Lindsay Meza on 01-07-2023 Albumin/Globulin [Mass ratio] 0.7 {ratio} 0.9-2.4 [facility] Serum or plasma calcium jenny urement (mass/volume)Ordered By: Lindsay Meza on 01-07-2023 Calcium [Mass/Vol] 8.8 mg/dL 8.5-10.1 [facility] Serum or plasma creatinine m easurement (mass/volume)Ordered By: Lindsay Meza on 01-07-2023 Creatinine [Mass/Vol] 1.12 mg/dL 0.70-1.30 [facility] Comment on above: The validity of the calculated GFR & GFRAA in patients over 70 years has not been determined. Clinical correlation is essential. Serum or plasma urea nitroge n measurement (mass/volume)Ordered By: Lindsay Meza on 01-07-2023 Urea nitrogen [Mass/Vol] 10 mg/dL 7-18 [facility] Thin prep Papanicolaou smear with manual screeningOrdered By: Lindsay Meza on 01-07-2023 Thin prep Papanicolaou smear with manual screening 12 U/L 15-37 [facility] Thin prep Papanicolaou smear with manual screening 6 5-15 [facility] Vancomycin troughOrdered By: Lindsay Meza on 01-07-2023 Vancomycin trough [Mass/Vol] 11.7 ug/mL 5.0-15.0 [facility] Comment on above: VANCOMYCIN STANDARED DRUG THERAPY TROUGH LEVEL: 5.0 - 15.0 mg/L VANCOMYCIN HIGH INTENSITY THERAPY TROUGH LEVEL: 15.0 - 20.0 mg/L High Intensity therapy recommended for serious lifethreatening infections include:- Ofnzjbpdpx-Xkoxklpqwkxn-Kvbewakxp (Ventilator/Healtcare Associated)-Sepsis PLEASE CONTACT PHARMACY SERVICES (#7253) FOR INTERPRETATIONOF RESULTS. No Panel InformationOrdered By: Lindsay Meza on 01-06-2023 Tacrolimus (Prograf) Level 5.1 ng/mL 2.0-20.0 [facility] Comment on above: Trough (immediately following transplant) 15.0 Trough (steady state, 2 weeks or more after transplant): 3.0 - 8.0 Performed by LC-MS/MS technology.Performed at: [address] [id number] Director: Martínez Orellana MD, Phone: [phone] Acid fast bacilli (AFB) cult ureOrdered By: Lane Rojas on 01-04-2023 Mycobacterium sp identified Org specific cx Nom (Unsp spec) [facility] Bacteria identified Cx Nom ( Wound)Ordered By: Lane Rojas on 01-04-2023 Wound Culture Streptococcus mitis/ oralis [facility] Fungus cultureOrdered By: Marta Rojas on 01-04-2023 Fungus identified Cx Nom (Unsp spec) [facility] Fungus stainOrdered By: Robin Rojas on 01-04-2023 Fungus identified Fungus stain Nom (Unsp spec) [facility] Gram stain for investigation of transfusion reactionOrdered By: Lane Rojas on 01-04-2023 Microscopic observation Gram stain Nom (Unsp spec) [facility] Laboratory - Chemistry and C hemistry - challengeOrdered By: Amado Hanson on 01-04-2023 Magnesium [Mass/Vol] 2.2 mg/dL 1.6-2.6 [facility] No Panel InformationOrdered By: Amado Hanson on 01-04-2023 Troponin I High Sensitivity 14 pg/mL 3.0-78.0 [facility] Comment on above: Please Note: New Mary Ellen t Units and Gender Specific Reference Ranges. For more information see Policy Stat Procedure [place] High Sensitivity Troponin (TNIH) and attachments. Thin prep Papanicolaou smear with manual screeningOrdered By: Lane Rojas on 01-04-2023 Thin prep Papanicolaou smear with manual screening [facility] Whole blood hemoglobin A1c/t otal hemoglobin ratio (mass fraction)Ordered By: Servando Huber on 01-04-2023 HbA1c (Bld) [Mass fraction] 7.6 % 3.8-5.6 [facility] Comment on above: Normal < 5.7 % Predi abetic 5.7 - 6.4 % Diabetic >or= 6.5 % Please note range changes. Absolute lymphocyte countOrd ered By: Julius Camp on 01-03-2023 Lymphocytes Auto (Unsp spec) [#/Vol] 0.89 10*3/uL 0.83-4.51 [facility] Basophil percentageOrdered B y: Julius Camp on 01-03-2023 Basophil percentage 0-5 SEEN /hpf 0-5 [facility] Basophils/100 WBC (Bld) 0.3 % 0-1 [facility] Bilirubin [Mass/Vol] 0.50 mg/dL 0.20-1.00 [facility] Comment on above: For patients on eltr ombopag therapy, use of Dimension [place] TBIL is not recommended. Chloride [Moles/Vol] 104 mmol/L 98-107 [facility] Eosinophils/100 WBC (Bld) 0.1 % 0-5 [facility] Glucose [Mass/Vol] 185 mg/dL 74-106 [facility] Comment on above: Fasting Glucose resu lt greater than or equal to 126 mg/dL suggests DIABETES MELLITUS per A.D.A. criteria. Lactate [Moles/Vol] 1.3 mmol/L 0.4-2.0 [facility] Neutrophils (Bld) [#/Vol] 13.8 10*3/uL 2.0-7.7 [facility] Neutrophils/100 WBC (Bld) 82.9 % 47-70 [facility] Potassium [Moles/Vol] 4.0 mmol/L 3.5-5.1 [facility] Protein [Mass/Vol] 7.4 g/dL 6.4-8.2 [facility] Sodium [Moles/Vol] 137 mmol/L 136-145 [facility] WBC (Bld) [#/Vol] 16.7 10*3/uL 4.4-11.0 [facility] Bilirubin Test strip Ql (U)O rdered By: Julius Camp on 01-03-2023 Bilirubin Ql (U) Negative Negative [facility] Blood erythrocytes count (nu mber/volume)Ordered By: Julius Camp on 01-03-2023 RBC (Bld) [#/Vol] 4.16 10*6/uL 4.6-6.2 [facility] Blood hemoglobin measurement (mass/volume)Ordered By: Julius Camp on 01-03-2023 Hemoglobin (Bld) [Mass/Vol] 11.8 g/dL 13.0-16.5 [facility] Blood lymphocytes/100 leukoc ytesOrdered By: Julius Camp on 01-03-2023 Lymphocytes/100 WBC (Bld) 5.3 % 19-41 [facility] Blood manual differential co mment interpretation (narrative result)Ordered By: Julius Camp on 01-03-2023 Manual differential comment Sekou (Bld) [Interp] COMMENT [facility] Comment on above: MONOCYTOSIS. Blood monocytes/100 leukocyt esOrdered By: Julius Camp on 01-03-2023 Monocytes/100 WBC (Bld) 10.9 % 0-10 [facility] Blood platelet mean volumeOr dered By: Julius Camp on 01-03-2023 Platelet mean volume (Bld) [Entitic vol] 10.0 fL 6.2-12.0 [facility] Culture, urineOrdered By: Damir Camp on 01-03-2023 Bacteria identified Cx Nom (U) Culture exhibits no growth. [facility] Determination of erythrocyte mean corpuscular volume (MCV)Ordered By: Julius Camp on 01-03-2023 MCV (RBC) [Entitic vol] 86.3 fL 80-94 [facility] Hematocrit Auto (Bld) [Volum e fraction]Ordered By: Julius Camp on 01-03-2023 Hematocrit (Bld) [Volume fraction] 35.9 % 40-54 [facility] INR in Blood by Coagulation assayOrdered By: Julius Camp on 01-03-2023 INR Coag (Bld) [Relative time] 1.1 {INR} [facility] Ketones Test strip Ql (U)Ord ered By: Julius Camp on 01-03-2023 Ketones Ql (U) 5 mg/dl Negative [facility] Laboratory - Chemistry and C hemistry - challengeOrdered By: Julius Camp on 01-03-2023 ALP [Catalytic activity/Vol] 58 U/L 45-117 [facility] ALT [Catalytic activity/Vol] 14 U/L 16-61 [facility] CO2 [Moles/Vol] 24.0 mmol/L 21.0-32.0 [facility] Globulin (S) [Mass/Vol] 3.6 g/dL 2.2-4.2 [facility] Urea nitrogen/Creatinine [Mass ratio] 14.6 mg/mg 10-20 [facility] Laboratory - CoagulationOrde red By: Julius Camp on 01-03-2023 aPTT Coag (Bld) [Time] 27.6 s 24.1-36.2 [facility] PT Coag (PPP) [Time] 14.1 s 11.7-14.9 [facility] Laboratory - Hematology and Cell countsOrdered By: Julius Camp on 01-03-2023 Erythrocyte distribution width (RBC) [Entitic vol] 39.6 fL 35.1-43.9 [facility] Erythrocyte distribution width (RBC) [Ratio] 12.6 % 11.6-14.6 [facility] Immature granulocytes/100 WBC (Bld) 0.500 % 0.0-0.9 [facility] Comment on above: IG% - Immature Granu locytes (promyelocytes, myelocytes and metamyelocytes) > 1% indicates that a LEFT SHIFT is Present. MCH (RBC) [Entitic mass] 28.4 pg 27.0-32.0 [facility] Nucleated RBC/100 WBC (Bld) [Ratio] 0 % 0-5 [facility] Laboratory - Microbiology an d Antimicrobial susceptibilityOrdered By: Julius Camp on 01-03-2023 Bacteria identified Cx Nom (Bld) No growth in 5 days. [facility] MCHC Auto (RBC) [Mass/Vol]Or dered By: Julius Camp on 01-03-2023 MCHC (RBC) [Mass/Vol] 32.9 g/dL 32-36 [facility] Mucus LM Ql (Urine sed)Order ed By: Julius Camp on 01-03-2023 Mucus Ql (Urine sed) 0 SEEN /hpf [facility] Nitrite Test strip Ql (U)Ord ered By: Julius Camp on 01-03-2023 Nitrite Ql (U) Negative Negative [facility] No Panel InformationOrdered By: Julius Camp on 01-03-2023 Estimated Creatinine Clearance Calc 54.02 ml/min [facility] Estimated GFR (MDRD) Amer 67 mL/min >60 [facility] Comment on above: GFR Calc Estimated GFR (MDRD) Non-Af Amer 55 mL/min >60 [facility] Comment on above: Non- GFR Calc Platelets bldOrdered By: Saundra Camp on 01-03-2023 Platelets (Bld) [#/Vol] 251 10*3/uL 150-450 [facility] Protein Test strip Ql (U)Ord ered By: Julius Camp on 01-03-2023 Protein Ql (U) 30 mg/dl Negative [facility] Respiratory pathogens detect ion panel by molecular detection methodOrdered By: Julius Camp on 01-03-2023 Respiratory pathogens DNA and RNA panel JUAN+probe (Resp) [facility] Review by pathologistOrdered By: Julius Camp on 01-03-2023 Pathologist review Sekou (Unsp spec) [Interp] Ayesha sun [facility] Pathologist review Sekou (Unsp spec) [Interp] Reviewed [facility] Comment on above: Previous reported re sult: Ayesha sun Edited by: RGOOD on 01/04/23:1019Neutrophilic leukocytosis.Clinical correlation necessary.Riley Marshall M.D. 01/04/23 AMENDED REPORT 01/04/23 1019 PATH REV previously reported as: Ayesha sun Serum or plasma albumin jenny urement (mass/volume)Ordered By: Julius Camp on 01-03-2023 Albumin [Mass/Vol] 3.8 g/dL 3.2-5.0 [facility] Serum or plasma albumin/glob ulin mass ratioOrdered By: Julius Camp on 01-03-2023 Albumin/Globulin [Mass ratio] 1.1 {ratio} 0.9-2.4 [facility] Serum or plasma calcium jenny urement (mass/volume)Ordered By: Julius Camp on 01-03-2023 Calcium [Mass/Vol] 9.1 mg/dL 8.5-10.1 [facility] Serum or plasma creatinine m easurement (mass/volume)Ordered By: Julius Camp on 01-03-2023 Creatinine [Mass/Vol] 1.37 mg/dL 0.70-1.30 [facility] Comment on above: The validity of the calculated GFR & GFRAA in patients over 70 years has not been determined. Clinical correlation is essential. Serum or plasma urea nitroge n measurement (mass/volume)Ordered By: Julius Camp on 01-03-2023 Urea nitrogen [Mass/Vol] 20 mg/dL 7-18 [facility] Squamous epithelial cells de tection in urine sediment by light microscopyOrdered By: Julius Camp on 01-03-2023 Epithelial cells.squamous LM Ql (Urine sed) 0-5 SEEN /hpf 0-5 [facility] Thin prep Papanicolaou smear with manual screeningOrdered By: Julius Camp on 01-03-2023 Thin prep Papanicolaou smear with manual screening 13 U/L 15-37 [facility] Thin prep Papanicolaou smear with manual screening 9 5-15 [facility] Urine blood detectionOrdered By: Julius Camp on 01-03-2023 RBC Ql (U) Negative Negative [facility] RBC Ql (U) 0 SEEN /hpf 0-5 [facility] Urine clarityOrdered By: Saundra Camp on 01-03-2023 Clarity (U) Clear Clear [facility] Urine color determinationOrd ered By: Julius Camp on 01-03-2023 Color (U) Yellow Yellow [facility] Urine glucose detectionOrder ed By: Julius Camp on 01-03-2023 Glucose Ql (U) Normal mg/dl Normal [facility] Urine leukocyte esterase det ection by dipstickOrdered By: Julius Camp on 01-03-2023 Leukocyte esterase Test strip Ql (U) 25 /ul Negative [facility] Urine pHOrdered By: Julius ayala on 01-03-2023 pH (U) 5.0 [pH] 5.0 - 8.0 [facility] Urine sediment bacteria coun t by microscopy (number/high power field)Ordered By: Julius Camp on 01-03-2023 Bacteria LM.HPF (Urine sed) [#/Area] 0 /[HPF] None Seen [facility] Urine specific gravity measu rementOrdered By: Julius Camp on 01-03-2023 Specific gravity (U) [Rel density] 1.020 1.002-1.03 0 [facility] Urobilinogen Auto test strip Ql (U)Ordered By: Julius Camp on 01-03-2023 Urobilinogen Ql (U) Normal mg/dl Normal [facility] Absolute lymphocyte countOrd ered By: Crystal Nation on 11-28-2022 Lymphocytes Auto (Unsp spec) [#/Vol] 1.49 10*3/uL 0.83-4.51 [facility] Automated blood hematocrit ( percentage)Ordered By: Crystal Nation on 11-28-2022 Hematocrit (Bld) [Volume fraction] 41.1 % 40-54 [facility] Basophil percentageOrdered B y: Crystal Nation on 11-28-2022 Basophil percentage 0-5 SEEN /hpf 0-5 [facility] Basophils/100 WBC (Bld) 0.7 % 0-1 [facility] Bilirubin [Mass/Vol] 0.40 mg/dL 0.20-1.00 [facility] Comment on above: For patients on eltr ombopag therapy, use of Dimension [place] TBIL is not recommended. Chloride [Moles/Vol] 114 mmol/L 98-107 [facility] Cholesterol [Mass/Vol] 174 mg/dL <200 [facility] Comment on above: <200 mg/dL Desirable 200-240 mg/dL Borderline >240 mg/dL High Risk Eosinophils/100 WBC (Bld) 1.4 % 0-5 [facility] Glucose [Mass/Vol] 111 mg/dL 74-106 [facility] Comment on above: Fasting Glucose resu lt from 100 to 125 mg/dL suggests IMPAIRED HOMEOSTASIS per A.D.A. criteria. Neutrophils (Bld) [#/Vol] 5.8 10*3/uL 2.0-7.7 [facility] Neutrophils/100 WBC (Bld) 70.2 % 47-70 [facility] Potassium [Moles/Vol] 4.1 mmol/L 3.5-5.1 [facility] Protein [Mass/Vol] 7.0 g/dL 6.4-8.2 [facility] Sodium [Moles/Vol] 145 mmol/L 136-145 [facility] Triglyceride [Mass/Vol] 116 mg/dL <199 [facility] Comment on above: The drugs N-Acetylcy steine and Metamizole may falsely depress this assay.Serum Triglycerides Reference Interval Normal <150 mg/dL Borderline high 150 - 199 mg/dL High 200 - 499 mg/dL Very High > or = 500 mg/dL WBC (Bld) [#/Vol] 8.3 10*3/uL 4.4-11.0 [facility] Bilirubin Test strip Ql (U)O rdered By: Crystal Nation on 11-28-2022 Bilirubin Ql (U) Negative Negative [facility] Blood erythrocytes count (nu mber/volume)Ordered By: Crystal Nation on 11-28-2022 RBC (Bld) [#/Vol] 4.65 10*6/uL 4.6-6.2 [facility] Blood hemoglobin measurement (mass/volume)Ordered By: Crystal Nation on 11-28-2022 Hemoglobin (Bld) [Mass/Vol] 13.0 g/dL 13.0-16.5 [facility] Blood lymphocytes/100 leukoc ytesOrdered By: Crystal Nation on 11-28-2022 Lymphocytes/100 WBC (Bld) 17.9 % 19-41 [facility] Blood monocytes/100 leukocyt esOrdered By: Crystal Nation on 11-28-2022 Monocytes/100 WBC (Bld) 9.6 % 0-10 [facility] Blood platelet mean volumeOr dered By: Crystal Nation on 11-28-2022 Platelet mean volume (Bld) [Entitic vol] 10.5 fL 6.2-12.0 [facility] CBC W/DIFF/PLT (EXTERNAL LAB FE)on 11-28-2022 BASO ABSOLUTE [facility] EOS ABSOLUTE [facility] Hemoglobin (Bld) [Mass/Vol] 13 g/dL 12.6 - 17.7 g/dL [facility] Immature Gran % [facility] IMMATURE GRANS ABSOLUTE C [facility] Lymphocytes (Bld) [#/Vol] 1.49 10*3/uL 0.7 - 3.1 k/uL [facility] MCH 28 Pg 26.6 - 33 Pg [facility] MONOCYTES ABSOLUTE [facility] NEUTROPHILS ABSOLUTE 5.8 k/uL 1.4 - 7 .0 k/uL [facility] CMP (EXTERNAL)on 11-28-2022 Alk Phos Total 55 U/L 45 - 117 U/L [facility] AST [Catalytic activity/Vol] 19 U/L 8 - 37 U/L [facility] Bili Total 0.4 mg/dL 0.2 - 1 mg/dL [facility] CO2 [Moles/Vol] 22 mmol/L 21 - 32 MEQ/L [facility] GFR AFR AMER 89 mL/MIN [facility] GFR/1.73 sq M.predicted among non-blacks MDRD (S/P/Bld) [Vol rate/Area] 73 mL/min/{1.73_m2} [facility] Determination of erythrocyte mean corpuscular volume (MCV)Ordered By: Crystal Nation on 11-28-2022 MCV (RBC) [Entitic vol] 88.4 fL 80-94 [facility] Ketones Test strip Ql (U)Ord ered By: Crystal Nation on 11-28-2022 Ketones Ql (U) Negative Negative [facility] LIPID PANEL (OUTSIDE)on 11-06 LDL:HDL Ratio [facility] Non-HDL Cholesterol [facility] TC:HDL Ratio [facility] VLDL Cholesterol [facility] Laboratory - Chemistry and C hemistry - challengeOrdered By: Crystal Nation on 11-28-2022 ALP [Catalytic activity/Vol] 55 U/L 45-117 [facility] ALT [Catalytic activity/Vol] 19 U/L 16-61 [facility] CO2 [Moles/Vol] 22.0 mmol/L 21.0-32.0 [facility] Globulin (S) [Mass/Vol] 3.2 g/dL 2.2-4.2 [facility] Urea nitrogen/Creatinine [Mass ratio] 13.1 mg/mg 10-20 [facility] Laboratory - Hematology and Cell countsOrdered By: Crystal Nation on 11-28-2022 Erythrocyte distribution width (RBC) [Entitic vol] 41.5 fL 35.1-43.9 [facility] Erythrocyte distribution width (RBC) [Ratio] 12.8 % 11.6-14.6 [facility] Immature granulocytes/100 WBC (Bld) 0.200 % 0.0-0.9 [facility] Comment on above: IG% - Immature Granu locytes (promyelocytes, myelocytes and metamyelocytes) > 1% indicates that a LEFT SHIFT is Present. MCH (RBC) [Entitic mass] 28.0 pg 27.0-32.0 [facility] Nucleated RBC/100 WBC (Bld) [Ratio] 0 % 0-5 [facility] MCHC [Mass/volume] by Automa jonathan countOrdered By: Crystal Nation on 11-28-2022 MCHC (RBC) [Mass/Vol] 31.6 g/dL 32-36 [facility] MICROALBUMIN/CREATININE UR W RATIO (EXTERNAL)on 11-28-2022 Albumin/Creat Ratio 47.8 Abnormal 30 [facility] Creatinine Urine 138 [facility] Microalbumin, Random urine 66 [facility] Mucus LM Ql (Urine sed)Order ed By: Crystal Nation on 11-28-2022 Mucus Ql (Urine sed) 0 SEEN /hpf [facility] Nitrite Test strip Ql (U)Ord ered By: Crystal Nation on 11-28-2022 Nitrite Ql (U) Negative Negative [facility] No Panel InformationOrdered By: Crystal Nation on 11-28-2022 Estimated GFR (MDRD) Amer 89 mL/min >60 [facility] Comment on above: GFR Calc Estimated GFR (MDRD) Non-Af Amer 73 mL/min >60 [facility] Comment on above: Non- GFR Calc Prostate Specific Antigen Screen 2.37 ng/mL 0.00-4.00 [facility] Comment on above: This test was perfor med using the TPSA assay method for [employer] chemistry system. Values obtained with differentassay methods cannot be used interchangably.When changing PSA assays in the course of monitoring apatient, additional sequential testing should be carriedout to confirm baseline values. Urine Microalbumin/Creatinine Ratio 47.8 mg/g CRE <30 [facility] Vitamin D 25-Hydroxy 48.8 ng/mL [facility] Comment on above: Vitamin D 25(OH) Sta tus Range Deficiency <20 ng/mL (50nmol/L) Insufficiency 20 - 30 ng/mL (50 - 75 nmol/L) Sufficiency 30 - 100 ng/mL (75 - 250 nmol/L) Toxicity >100 ng/mL (>250 nmol/L) Platelets bldOrdered By: Baron Nation on 11-28-2022 Platelets (Bld) [#/Vol] 272 10*3/uL 150-450 [facility] Protein Test strip Ql (U)Ord ered By: Crystal Nation on 11-28-2022 Protein Ql (U) 30 mg/dl Negative [facility] Serum or plasma albumin jenny urement (mass/volume)Ordered By: Crystal Nation on 11-28-2022 Albumin [Mass/Vol] 3.8 g/dL 3.2-5.0 [facility] Serum or plasma albumin/glob ulin mass ratioOrdered By: Crystal Nation on 11-28-2022 Albumin/Globulin [Mass ratio] 1.2 {ratio} 0.9-2.4 [facility] Serum or plasma calcium jenny urement (mass/volume)Ordered By: Crystal Nation on 11-28-2022 Calcium [Mass/Vol] 8.9 mg/dL 8.5-10.1 [facility] Serum or plasma cholesterol in HDL measurement (mass/volume)Ordered By: Crystal Nation on 11-28-2022 Cholesterol in HDL [Mass/Vol] 43 mg/dL >40 [facility] Comment on above: The drugs N-Acetylcy steine and Metamizole may falsely depress this assay. Reference Range HDL <40 mg/dL Low HDL Cholesterol HDL >or= 60 mg/dL High HDL Cholesterol Serum or plasma cholesterol in VLDL measurement (mass/volume)Ordered By: Crystal Nation on 11-28-2022 Cholesterol in VLDL [Mass/Vol] 23 mg/dL 5-40 [facility] Serum or plasma creatinine m easurement (mass/volume)Ordered By: Crystal Nation on 11-28-2022 Creatinine [Mass/Vol] 1.07 mg/dL 0.70-1.30 [facility] Comment on above: The validity of the calculated GFR & GFRAA in patients over 70 years has not been determined. Clinical correlation is essential. Serum or plasma low density lipoprotein (LDL) cholesterol measurement (mass/volume)Ordered By: Crystal Nation on 11-28-2022 Cholesterol in LDL [Mass/Vol] 108 mg/dL 0-130 [facility] Serum or plasma urea nitroge n measurement (mass/volume)Ordered By: Crystal Nation on 11-28-2022 Urea nitrogen [Mass/Vol] 14 mg/dL 7-18 [facility] Squamous epithelial cells de tection in urine sediment by light microscopyOrdered By: Crystal Nation on 11-28-2022 Epithelial cells.squamous LM Ql (Urine sed) 0-5 SEEN /hpf 0-5 [facility] Thin prep Papanicolaou smear with manual screeningOrdered By: Crystal Nation on 11-28-2022 Thin prep Papanicolaou smear with manual screening 19 U/L 15-37 [facility] Thin prep Papanicolaou smear with manual screening 9 5-15 [facility] Thin prep Papanicolaou smear with manual screening 66.0 mg/L NO RANGE EST. [facility] Urine blood detectionOrdered By: Crystal Nation on 11-28-2022 RBC Ql (U) Negative Negative [facility] RBC Ql (U) 0 SEEN /hpf 0-5 [facility] Urine clarityOrdered By: Baron Nation on 11-28-2022 Clarity (U) Clear Clear [facility] Urine color determinationOrd ered By: Crystal Nation on 11-28-2022 Color (U) Yellow Yellow [facility] Urine creatinine measurement (mass/volume)Ordered By: Crystal Nation on 11-28-2022 Creatinine (U) [Mass/Vol] 138.00 mg/dL NO RANGE EST. [facility] Urine glucose detectionOrder ed By: Crystal Nation on 11-28-2022 Glucose Ql (U) Normal mg/dl Normal [facility] Urine leukocyte esterase det ection by dipstickOrdered By: Crystal Nation on 11-28-2022 Leukocyte esterase Test strip Ql (U) 25 /ul Negative [facility] Urine pHOrdered By: Crystal Nation on 11-28-2022 pH (U) 6.0 [pH] 5.0 - 8.0 [facility] Urine sediment bacteria coun t by microscopy (number/high power field)Ordered By: Crystal Nation on 11-28-2022 Bacteria LM.HPF (Urine sed) [#/Area] 1 /[HPF] None Seen [facility] Urine specific gravity measu rementOrdered By: Crystal Nation on 11-28-2022 Specific gravity (U) [Rel density] 1.015 1.002-1.03 0 [facility] Urobilinogen Auto test strip Ql (U)Ordered By: Crystal Nation on 11-28-2022 Urobilinogen Ql (U) Normal mg/dl Normal [facility] VITAMIN D (OUTSIDE)on 2022 VITAMIN D 48.8 ng/mL 31 - 80 ng/mL [facility] Whole blood hemoglobin A1c/t otal hemoglobin ratio (mass fraction)Ordered By: Crystal Nation on 11-28-2022 HbA1c (Bld) [Mass fraction] 8.0 % 3.8-5.6 [facility] Comment on above: Normal < 5.7 % Predi abetic 5.7 - 6.4 % Diabetic >or= 6.5 % Please note range changes. Absolute lymphocyte countOrd ered By: Dr. Squires on 11-07-2022 Lymphocytes Auto (Unsp spec) [#/Vol] 1.47 10*3/uL 0.83-4.51 [facility] Basophil percentageOrdered B y: Dr. Squires on 11-07-2022 Basophil percentage 3.3 mg/dL 2.5-4.[address] [facility] Basophils/100 WBC (Bld) 0.8 % 0-1 [facility] Chloride [Moles/Vol] 112 mmol/L 98-[address] [facility] [address] [facility] Eosinophils/100 WBC (Bld) 2.0 % 0-5 [facility] Glucose [Mass/Vol] 87 mg/dL 74-[facility] Neutrophils (Bld) [#/Vol] 4.6 10*3/uL 2.0-7.7 [facility] Neutrophils/100 WBC (Bld) 64.6 % 47-70 [facility] Potassium [Moles/Vol] 3.8 mmol/L 3.5-5.1 [facility] Sodium [Moles/Vol] 143 mmol/L 136-145 [facility] WBC (Bld) [#/Vol] 7.1 10*3/uL 4.4-11.0 [facility] Blood erythrocytes count (nu mber/volume)Ordered By: Dr. Squires on 11-07-2022 RBC (Bld) [#/Vol] 4.62 10*6/uL 4.6-6.2 [facility] Blood hemoglobin measurement (mass/volume)Ordered By: Dr. Squires on 11-07-2022 Hemoglobin (Bld) [Mass/Vol] 13.1 g/dL 13.0-16.5 [facility] Blood lymphocytes/100 leukoc ytesOrdered By: Dr. Squires on 11-07-2022 Lymphocytes/100 WBC (Bld) 20.8 % 19-41 [facility] Blood monocytes/100 leukocyt esOrdered By: Dr. Squires on 11-07-2022 Monocytes/100 WBC (Bld) 11.5 % 0-10 [facility] Blood platelet mean volumeOr dered By: Dr. Squires on 11-07-2022 Platelet mean volume (Bld) [Entitic vol] 10.4 fL 6.2-12.0 [facility] Determination of erythrocyte mean corpuscular volume (MCV)Ordered By: Dr. Squires on 11-07-2022 MCV (RBC) [Entitic vol] 87.2 fL 80-94 [facility] Hematocrit Auto (Bld) [Volum e fraction]Ordered By: Dr. Squires on 11-07-2022 Hematocrit (Bld) [Volume fraction] 40.3 % 40-54 [facility] Laboratory - Chemistry and C hemistry - challengeOrdered By: Dr. Squires on 11-07-2022 CO2 [Moles/Vol] 24.0 mmol/L 21.0-32.0 [facility] Magnesium [Mass/Vol] 1.9 mg/dL 1.6-2.6 [facility] Laboratory - Hematology and Cell countsOrdered By: Dr. Squires on 11-07-2022 Erythrocyte distribution width (RBC) [Entitic vol] 40.2 fL 35.1-43.9 [facility] Erythrocyte distribution width (RBC) [Ratio] 12.8 % 11.6-14.6 [facility] Immature granulocytes/100 WBC (Bld) 0.300 % 0.0-0.9 [facility] Comment on above: IG% - Immature Granu locytes (promyelocytes, myelocytes and metamyelocytes) > 1% indicates that a LEFT SHIFT is Present. MCH (RBC) [Entitic mass] 28.4 pg 27.0-32.0 [facility] Nucleated RBC/100 WBC (Bld) [Ratio] 0 % 0-5 [facility] MCHC Auto (RBC) [Mass/Vol]Or dered By: Dr. Squires on 11-07-2022 MCHC (RBC) [Mass/Vol] 32.5 g/dL 32-36 [facility] No Panel InformationOrdered By: Dr. Squires on 11-07-2022 Estimated GFR (MDRD) Amer 76 mL/min >60 [facility] Comment on above: GFR Calc Estimated GFR (MDRD) Non-Af Amer 63 mL/min >60 [facility] Comment on above: Non- GFR Calc No Panel InformationOrdered By: Jim Squires on 11-07-2022 Tacrolimus (Prograf) Level See comment [facility] Comment on above: TEST RESULTS LIMITST acrolimus (FK506), Blood A, 5.1 ng/mL 2.0-20.0 Trough (immediately following transplant) 15.0 Trough (steady state, 2 weeks or more after transplant): 3.0 - 8.0 Performed by LC-MS/MS technology. [facility] ORIGINAL REPORT ON FILE IN LAB CONTAINS ADDITIONAL TEST SITE INFORMATION. Platelets bldOrdered By: Dr. Squires on 11-07-2022 Platelets (Bld) [#/Vol] 248 10*3/uL 150-450 [facility] Serum or plasma calcium jenny urement (mass/volume)Ordered By: Dr. Squires on 11-07-2022 Calcium [Mass/Vol] 9.3 mg/dL 8.5-10.1 [facility] Serum or plasma creatinine m easurement (mass/volume)Ordered By: Dr. Squires on 11-07-2022 Creatinine [Mass/Vol] 1.22 mg/dL 0.70-1.30 [facility] Comment on above: The validity of the calculated GFR & GFRAA in patients over 70 years has not been determined. Clinical correlation is essential. Serum or plasma urea nitroge n measurement (mass/volume)Ordered By: Dr. Squires on 11-07-2022 Urea nitrogen [Mass/Vol] 15 mg/dL 7-18 [facility] Thin prep Papanicolaou smear with manual screeningOrdered By: Dr. Squires on 11-07-2022 Thin prep Papanicolaou smear with manual screening 7 5-15 [facility] Glucose Glucometer (BldC) [M ass/Vol]Ordered By: Dr. Espino on 11-02-2022 Glucose [Mass/Vol] 125 mg/dL 74-106 [facility] Comment on above: MANAGEMENT OF PATIEN T CARE PER NURSING PROTOCOL Absolute lymphocyte countOrd ered By: Dr. Squires on 09-05-2022 Lymphocytes Auto (Unsp spec) [#/Vol] 1.49 10*3/uL 0.83-4.51 [facility] Basophil percentageOrdered B y: Dr. Squires on 09-05-2022 Basophil percentage 3.7 mg/dL 2.5-4.9 [facility] Basophils/100 WBC (Bld) 0.8 % 0-1 [facility] Chloride [Moles/Vol] 110 mmol/L 98-107 [facility] Eosinophils/100 WBC (Bld) 2.0 % 0-5 [facility] Glucose [Mass/Vol] 138 mg/dL 74-106 [facility] Comment on above: Fasting Glucose resu lt greater than or equal to 126 mg/dL suggests DIABETES MELLITUS per A.D.A. criteria. Neutrophils (Bld) [#/Vol] 5.0 10*3/uL 2.0-7.7 [facility] Neutrophils/100 WBC (Bld) 66.1 % 47-70 [facility] Potassium [Moles/Vol] 3.8 mmol/L 3.5-5.1 [facility] Sodium [Moles/Vol] 142 mmol/L 136-145 [facility] WBC (Bld) [#/Vol] 7.5 10*3/uL 4.4-11.0 [facility] Blood erythrocytes count (nu mber/volume)Ordered By: Dr. Squires on 09-05-2022 RBC (Bld) [#/Vol] 4.78 10*6/uL 4.6-6.2 [facility] Blood hemoglobin measurement (mass/volume)Ordered By: Dr. Squires on 09-05-2022 Hemoglobin (Bld) [Mass/Vol] 13.4 g/dL 13.0-16.5 [facility] Blood lymphocytes/100 leukoc ytesOrdered By: Dr. Squires on 09-05-2022 Lymphocytes/100 WBC (Bld) 19.9 % 19-41 [facility] Blood monocytes/100 leukocyt esOrdered By: Dr. Squires on 09-05-2022 Monocytes/100 WBC (Bld) 10.7 % 0-10 [facility] Blood platelet mean volumeOr dered By: Dr. Squires on 09-05-2022 Platelet mean volume (Bld) [Entitic vol] 10.4 fL 6.2-12.0 [facility] Determination of erythrocyte mean corpuscular volume (MCV)Ordered By: Dr. Squires on 09-05-2022 MCV (RBC) [Entitic vol] 86.4 fL 80-94 [facility] Hematocrit Auto (Bld) [Volum e fraction]Ordered By: Dr. Squires on 09-05-2022 Hematocrit (Bld) [Volume fraction] 41.3 % 40-54 [facility] Laboratory - Chemistry and C hemistry - challengeOrdered By: Dr. Squires on 09-05-2022 CO2 [Moles/Vol] 25.0 mmol/L 21.0-32.0 [facility] Magnesium [Mass/Vol] 1.7 mg/dL 1.6-2.6 [facility] Laboratory - Hematology and Cell countsOrdered By: Dr. Squires on 09-05-2022 Erythrocyte distribution width (RBC) [Entitic vol] 40.4 fL 35.1-43.9 [facility] Erythrocyte distribution width (RBC) [Ratio] 12.9 % 11.6-14.6 [facility] Immature granulocytes/100 WBC (Bld) 0.500 % 0.0-0.9 [facility] Comment on above: IG% - Immature Granu locytes (promyelocytes, myelocytes and metamyelocytes) > 1% indicates that a LEFT SHIFT is Present. MCH (RBC) [Entitic mass] 28.0 pg 27.0-32.0 [facility] Nucleated RBC/100 WBC (Bld) [Ratio] 0 % 0-5 [facility] MCHC Auto (RBC) [Mass/Vol]Or dered By: Dr. Squires on 09-05-2022 MCHC (RBC) [Mass/Vol] 32.4 g/dL 32-36 [facility] No Panel InformationOrdered By: Dr. Squires on 09-05-2022 Estimated GFR (MDRD) Amer 78 mL/min >60 [facility] Comment on above: GFR Calc Estimated GFR (MDRD) Non-Af Amer 64 mL/min >60 [facility] Comment on above: Non- GFR Calc Tacrolimus (Prograf) Level 5.6 ng/mL 2.0-20.0 [facility] Comment on above: Trough (immediately following transplant) 15.0 Trough (steady state, 2 weeks or more after transplant): 3.0 - 8.0 Performed by LC-MS/MS technology.Performed at: [address] [id number] Director: Martínez Orellana MD, Phone: [phone] Platelets bldOrdered By: Dr. Squires on 09-05-2022 Platelets (Bld) [#/Vol] 236 10*3/uL 150-450 [facility] Serum or plasma calcium jenny urement (mass/volume)Ordered By: Dr. Squires on 09-05-2022 Calcium [Mass/Vol] 9.3 mg/dL 8.5-10.1 [facility] Serum or plasma creatinine m easurement (mass/volume)Ordered By: Dr. Squires on 09-05-2022 Creatinine [Mass/Vol] 1.20 mg/dL 0.70-1.30 [facility] Comment on above: The validity of the calculated GFR & GFRAA in patients over 70 years has not been determined. Clinical correlation is essential. Serum or plasma urea nitroge n measurement (mass/volume)Ordered By: Dr. Squires on 09-05-2022 Urea nitrogen [Mass/Vol] 17 mg/dL 7-18 [facility] Thin prep Papanicolaou smear with manual screeningOrdered By: Dr. Squires on 09-05-2022 Thin prep Papanicolaou smear with manual screening 7 5-15 [facility] Absolute lymphocyte countOrd ered By: Dr. Squires on 07-18-2022 Lymphocytes Auto (Unsp spec) [#/Vol] 1.60 10*3/uL 0.83-4.51 [facility] Basophil percentageOrdered B y: Dr. Squires on 07-18-2022 Basophil percentage 3.8 mg/dL 2.5-4.9 [facility] Basophils/100 WBC (Bld) 0.6 % 0-1 [facility] Chloride [Moles/Vol] 111 mmol/L 98-107 [facility] Eosinophils/100 WBC (Bld) 1.6 % 0-5 [facility] Glucose [Mass/Vol] 125 mg/dL 74-106 [facility] Comment on above: Fasting Glucose resu lt from 100 to 125 mg/dL suggests IMPAIRED HOMEOSTASIS per A.D.A. criteria. Neutrophils (Bld) [#/Vol] 5.4 10*3/uL 2.0-7.7 [facility] Neutrophils/100 WBC (Bld) 67.6 % 47-70 [facility] Potassium [Moles/Vol] 3.9 mmol/L 3.5-5.1 [facility] Sodium [Moles/Vol] 142 mmol/L 136-145 [facility] WBC (Bld) [#/Vol] 8.0 10*3/uL 4.4-11.0 [facility] Blood erythrocytes count (nu mber/volume)Ordered By: Dr. Squires on 07-18-2022 RBC (Bld) [#/Vol] 4.99 10*6/uL 4.6-6.2 [facility] Blood hemoglobin measurement (mass/volume)Ordered By: Dr. Squires on 07-18-2022 Hemoglobin (Bld) [Mass/Vol] 14.2 g/dL 13.0-16.5 [facility] Blood lymphocytes/100 leukoc ytesOrdered By: Dr. Squires on 07-18-2022 Lymphocytes/100 WBC (Bld) 19.9 % 19-41 [facility] Blood monocytes/100 leukocyt esOrdered By: Dr. Squires on 07-18-2022 Monocytes/100 WBC (Bld) 9.8 % 0-10 [facility] Blood platelet mean volumeOr dered By: Dr. Squires on 07-18-2022 Platelet mean volume (Bld) [Entitic vol] 9.8 fL 6.2-12.0 [facility] Determination of erythrocyte mean corpuscular volume (MCV)Ordered By: Dr. Squires on 07-18-2022 MCV (RBC) [Entitic vol] 86.2 fL 80-94 [facility] Hematocrit Auto (Bld) [Volum e fraction]Ordered By: Dr. Squires on 07-18-2022 Hematocrit (Bld) [Volume fraction] 43.0 % 40-54 [facility] Laboratory - Chemistry and C hemistry - challengeOrdered By: Dr. Squires on 07-18-2022 CO2 [Moles/Vol] 25.0 mmol/L 21.0-32.0 [facility] Magnesium [Mass/Vol] 2.0 mg/dL 1.6-2.6 [facility] Laboratory - Hematology and Cell countsOrdered By: Dr. Squires on 07-18-2022 Erythrocyte distribution width (RBC) [Entitic vol] 39.6 fL 35.1-43.9 [facility] Erythrocyte distribution width (RBC) [Ratio] 12.8 % 11.6-14.6 [facility] Immature granulocytes/100 WBC (Bld) 0.500 % 0.0-0.9 [facility] Comment on above: IG% - Immature Granu locytes (promyelocytes, myelocytes and metamyelocytes) > 1% indicates that a LEFT SHIFT is Present. MCH (RBC) [Entitic mass] 28.5 pg 27.0-32.0 [facility] Nucleated RBC/100 WBC (Bld) [Ratio] 0 % 0-5 [facility] MCHC Auto (RBC) [Mass/Vol]Or dered By: Dr. Squires on 07-18-2022 MCHC (RBC) [Mass/Vol] 33.0 g/dL 32-36 [facility] No Panel InformationOrdered By: Dr. Squires on 07-18-2022 Estimated GFR (MDRD) Amer 70 mL/min >60 [facility] Comment on above: GFR Calc Estimated GFR (MDRD) Non-Af Amer 58 mL/min >60 [facility] Comment on above: Non- GFR Calc Tacrolimus (Prograf) Level 6.7 ng/mL 2.0-20.0 [facility] Comment on above: Trough (immediately following transplant) 15.0 Trough (steady state, 2 weeks or more after transplant): 3.0 - 8.0 Performed by LC-MS/MS technology.Performed at: [address] [id number] Director: Martínez Orellana MD, Phone: [phone] Platelets bldOrdered By: Dr. Squires on 07-18-2022 Platelets (Bld) [#/Vol] 277 10*3/uL 150-450 [facility] Serum or plasma calcium jenny urement (mass/volume)Ordered By: Dr. Squires on 07-18-2022 Calcium [Mass/Vol] 9.4 mg/dL 8.5-10.1 [facility] Serum or plasma creatinine m easurement (mass/volume)Ordered By: Dr. Squires on 07-18-2022 Creatinine [Mass/Vol] 1.32 mg/dL 0.70-1.30 [facility] Comment on above: The validity of the calculated GFR & GFRAA in patients over 70 years has not been determined. Clinical correlation is essential. Serum or plasma urea nitroge n measurement (mass/volume)Ordered By: Dr. Squires on 07-18-2022 Urea nitrogen [Mass/Vol] 20 mg/dL 7-18 [facility] Thin prep Papanicolaou smear with manual screeningOrdered By: Dr. Squires on 07-18-2022 Thin prep Papanicolaou smear with manual screening 6 5-15 [facility] Absolute lymphocyte counton 05-16-2022 Lymphocytes Auto (Unsp spec) [#/Vol] 1.48 10*3/uL 0.83-4.51 [facility] Work Phone: Basophil percentageon 2021 Basophil percentage 3.7 mg/dL 2.5-4.9 [facility] Work Phone: Basophils/100 WBC (Bld) 0.6 % 0-1 [facility] Work Phone: Chloride [Moles/Vol] 108 mmol/L 98-107 [facility] Work Phone: Cholesterol [Mass/Vol] 173 mg/dL <200 [facility] Work Phone: Comment on above: <200 mg/dL Desirable 200-240 mg/dL Borderline >240 mg/dL High Risk Eosinophils/100 WBC (Bld) 1.6 % 0-5 [facility] Work Phone: Glucose [Mass/Vol] 115 mg/dL 74-106 [facility] Work Phone: Comment on above: Fasting Glucose resu lt from 100 to 125 mg/dL suggests IMPAIRED HOMEOSTASIS per A.D.A. criteria. Neutrophils (Bld) [#/Vol] 5.7 10*3/uL 2.0-7.7 [facility] Work Phone: Neutrophils/100 WBC (Bld) 70.4 % 47-70 [facility] Work Phone: Potassium [Moles/Vol] 3.7 mmol/L 3.5-5.1 [facility] Work Phone: Sodium [Moles/Vol] 141 mmol/L 136-145 [facility] Work Phone: Triglyceride [Mass/Vol] 142 mg/dL <199 [facility] Work Phone: Comment on above: The drugs N-Acetylcy steine and Metamizole may falsely depress this assay.Serum Triglycerides Reference Interval Normal <150 mg/dL Borderline high 150 - 199 mg/dL High 200 - 499 mg/dL Very High > or = 500 mg/dL WBC (Bld) [#/Vol] 8.0 10*3/uL 4.4-11.0 [facility] Work Phone: Blood erythrocytes count (nu mber/volume)on 05-16-2022 RBC (Bld) [#/Vol] 4.83 10*6/uL 4.6-6.2 [facility] Work Phone: Blood hemoglobin measurement (mass/volume)on 05-16-2022 Hemoglobin (Bld) [Mass/Vol] 13.9 g/dL 13.0-16.5 [facility] Work Phone: Blood lymphocytes/100 leukoc yteson 05-16-2022 Lymphocytes/100 WBC (Bld) 18.4 % 19-41 [facility] Work Phone: Blood monocytes/100 leukocyt eson 05-16-2022 Monocytes/100 WBC (Bld) 8.8 % 0-10 [facility] Work Phone: Blood platelet mean volumeon 05-16-2022 Platelet mean volume (Bld) [Entitic vol] 10.3 fL 6.2-12.0 [facility] Work Phone: Determination of erythrocyte mean corpuscular volume (MCV)on 05-16-2022 MCV (RBC) [Entitic vol] 84.7 fL 80-94 [facility] Work Phone: Hematocrit Auto (Bld) [Volum e fraction]on 05-16-2022 Hematocrit (Bld) [Volume fraction] 40.9 % 40-54 [facility] Work Phone: Laboratory - Chemistry and C hemistry - challengeon 05-16-2022 CO2 [Moles/Vol] 26.0 mmol/L 21.0-32.0 [facility] Work Phone: Magnesium [Mass/Vol] 1.7 mg/dL 1.6-2.6 [facility] Work Phone: Laboratory - Hematology and Cell countson 05-16-2022 Erythrocyte distribution width (RBC) [Entitic vol] 37.5 fL 35.1-43.9 [facility] Work Phone: Erythrocyte distribution width (RBC) [Ratio] 12.4 % 11.6-14.6 [facility] Work Phone: Immature granulocytes/100 WBC (Bld) 0.200 % 0.0-0.9 [facility] Work Phone: Comment on above: IG% - Immature Granu locytes (promyelocytes, myelocytes and metamyelocytes) > 1% indicates that a LEFT SHIFT is Present. MCH (RBC) [Entitic mass] 28.8 pg 27.0-32.0 [facility] Work Phone: Nucleated RBC/100 WBC (Bld) [Ratio] 0 % 0-5 [facility] Work Phone: MCHC Auto (RBC) [Mass/Vol]on 05-16-2022 MCHC (RBC) [Mass/Vol] 34.0 g/dL 32-36 [facility] Work Phone: No Panel Informationon 05-16 Estimated GFR (MDRD) Amer 94 mL/min >60 [facility] Work Phone: Comment on above: GFR Calc Estimated GFR (MDRD) Non-Af Amer 78 mL/min >60 [facility] Work Phone: Comment on above: Non- GFR Calc Tacrolimus (Prograf) Level 5.9 ng/mL 2.0-20.0 [facility] Work Phone: Comment on above: Trough (immediately following transplant) 15.0 Trough (steady state, 2 weeks or more after transplant): 3.0 - 8.0 Performed by LC-MS/MS technology.Performed at: [address] [id number] Director: Martínez Orellana MD, Phone: [phone] Platelets bldon 05-16-2022 Platelets (Bld) [#/Vol] 229 10*3/uL 150-450 [facility] Work Phone: Serum or plasma calcium jenny urement (mass/volume)on 05-16-2022 Calcium [Mass/Vol] 9.1 mg/dL 8.5-10.1 [facility] Work Phone: Serum or plasma cholesterol in HDL measurement (mass/volume)on 05-16-2022 Cholesterol in HDL [Mass/Vol] 44 mg/dL >40 [facility] Work Phone: Comment on above: The drugs N-Acetylcy steine and Metamizole may falsely depress this assay. Reference Range HDL <40 mg/dL Low HDL Cholesterol HDL >or= 60 mg/dL High HDL Cholesterol Serum or plasma cholesterol in VLDL measurement (mass/volume)on 05-16-2022 Cholesterol in VLDL [Mass/Vol] 28 mg/dL 5-40 [facility] Work Phone: Serum or plasma creatinine m easurement (mass/volume)on 05-16-2022 Creatinine [Mass/Vol] 1.02 mg/dL 0.70-1.30 [facility] Work Phone: Comment on above: The validity of the calculated GFR & GFRAA in patients over 70 years has not been determined. Clinical correlation is essential. Serum or plasma low density lipoprotein (LDL) cholesterol measurement (mass/volume)on 05-16-2022 Cholesterol in LDL [Mass/Vol] 101 mg/dL 0-130 [facility] Work Phone: Serum or plasma urea nitroge n measurement (mass/volume)on 05-16-2022 Urea nitrogen [Mass/Vol] 14 mg/dL 7-18 [facility] Work Phone: Thin prep Papanicolaou smear with manual screeningon 05-16-2022 Thin prep Papanicolaou smear with manual screening 7 5-15 [facility] Work Phone: Whole blood hemoglobin A1c/t otal hemoglobin ratio (mass fraction)on 05-16-2022 HbA1c (Bld) [Mass fraction] 8.7 % 3.8-5.6 [facility] Comment on above: Normal < 5.7 % Predi abetic 5.7 - 6.4 % Diabetic >or= 6.5 % Please note range changes. Absolute lymphocyte counton 03-09-2022 Lymphocytes Auto (Unsp spec) [#/Vol] 1.42 10*3/uL 0.83-4.51 [facility] Work Phone: Basophil percentageon 2021 Basophil percentage 3.1 mg/dL 2.5-4.9 [facility] Work Phone: Basophils/100 WBC (Bld) 0.7 % 0-1 [facility] Work Phone: Chloride [Moles/Vol] 111 mmol/L 98-107 [facility] Work Phone: Eosinophils/100 WBC (Bld) 2.5 % 0-5 [facility] Work Phone: Glucose [Mass/Vol] 138 mg/dL 74-106 [facility] Work Phone: Comment on above: Fasting Glucose resu lt greater than or equal to 126 mg/dL suggests DIABETES MELLITUS per A.D.A. criteria. Neutrophils (Bld) [#/Vol] 4.5 10*3/uL 2.0-7.7 [facility] Work Phone: Neutrophils/100 WBC (Bld) 65.6 % 47-70 [facility] Work Phone: Potassium [Moles/Vol] 4.0 mmol/L 3.5-5.1 [facility] Work Phone: [phone] Sodium [Moles/Vol] 143 mmol/L 136-145 [facility] Work Phone: WBC (Bld) [#/Vol] 6.9 10*3/uL 4.4-11.0 [facility] Work Phone: Blood erythrocytes count (nu mber/volume)on 03-09-2022 RBC (Bld) [#/Vol] 4.59 10*6/uL 4.6-6.2 [facility] Work Phone: Blood hemoglobin measurement (mass/volume)on 03-09-2022 Hemoglobin (Bld) [Mass/Vol] 13.0 g/dL 13.0-16.5 [facility] Work Phone: Blood lymphocytes/100 leukoc yteson 03-09-2022 Lymphocytes/100 WBC (Bld) 20.6 % 19-41 [facility] Work Phone: Blood monocytes/100 leukocyt eson 03-09-2022 Monocytes/100 WBC (Bld) 10.2 % 0-10 [facility] Work Phone: Blood platelet mean volumeon 03-09-2022 Platelet mean volume (Bld) [Entitic vol] 10.5 fL 6.2-12.0 [facility] Work Phone: Determination of erythrocyte mean corpuscular volume (MCV)on 03-09-2022 MCV (RBC) [Entitic vol] 87.8 fL 80-94 [facility] Work Phone: Hematocrit Auto (Bld) [Volum e fraction]on 03-09-2022 Hematocrit (Bld) [Volume fraction] 40.3 % 40-54 [facility] Work Phone: Laboratory - Chemistry and C hemistry - challengeon 03-09-2022 CO2 [Moles/Vol] 26.0 mmol/L 21.0-32.0 [facility] Work Phone: Magnesium [Mass/Vol] 2.0 mg/dL 1.6-2.6 [facility] Work Phone: Laboratory - Hematology and Cell countson 03-09-2022 Erythrocyte distribution width (RBC) [Entitic vol] 41.4 fL 35.1-43.9 [facility] Work Phone: Erythrocyte distribution width (RBC) [Ratio] 12.9 % 11.6-14.6 [facility] Work Phone: Immature granulocytes/100 WBC (Bld) 0.400 % 0.0-0.9 [facility] Work Phone: Comment on above: IG% - Immature Granu locytes (promyelocytes, myelocytes and metamyelocytes) > 1% indicates that a LEFT SHIFT is Present. MCH (RBC) [Entitic mass] 28.3 pg 27.0-32.0 [facility] Work Phone: Nucleated RBC/100 WBC (Bld) [Ratio] 0 % 0-5 [facility] Work Phone: MCHC Auto (RBC) [Mass/Vol]on 03-09-2022 MCHC (RBC) [Mass/Vol] 32.3 g/dL 32-36 [facility] Work Phone: No Panel Informationon 03-09 Estimated GFR (MDRD) Amer 76 mL/min >60 [facility] Work Phone: Comment on above: GFR Calc Estimated GFR (MDRD) Non-Af Amer 62 mL/min >60 [facility] Work Phone: Comment on above: Non- GFR Calc Tacrolimus (Prograf) Level 6.7 ng/mL 2.0-20.0 [facility] Work Phone: Comment on above: Trough (immediately following transplant) 15.0 Trough (steady state, 2 weeks or more after transplant): 3.0 - 8.0 Performed by LC-MS/MS technology.Performed at: [address] [id number] Director: Martínez Orellana MD, Phone: [phone] Platelets bldon 03-09-2022 Platelets (Bld) [#/Vol] 259 10*3/uL 150-450 [facility] Work Phone: Serum or plasma calcium jenny urement (mass/volume)on 03-09-2022 Calcium [Mass/Vol] 9.4 mg/dL 8.5-10.1 [facility] Work Phone: Serum or plasma creatinine m easurement (mass/volume)on 03-09-2022 Creatinine [Mass/Vol] 1.23 mg/dL 0.70-1.30 [facility] Work Phone: Comment on above: The validity of the calculated GFR & GFRAA in patients over 70 years has not been determined. Clinical correlation is essential. Serum or plasma urea nitroge n measurement (mass/volume)on 03-09-2022 Urea nitrogen [Mass/Vol] 17 mg/dL 7-18 [facility] Work Phone: Thin prep Papanicolaou smear with manual screeningon 03-09-2022 Thin prep Papanicolaou smear with manual screening 6 5-15 [facility] Work Phone: Absolute lymphocyte counton 01-10-2022 Lymphocytes Auto (Unsp spec) [#/Vol] 1.45 10*3/uL 0.83-4.51 [facility] Work Phone: Basophil percentageon 2021 Basophil percentage 2.4 mg/dL 2.5-4.9 [facility] Work Phone: Basophils/100 WBC (Bld) 0.6 % 0-1 [facility] Work Phone: Chloride [Moles/Vol] 112 mmol/L 98-107 [facility] Work Phone: Eosinophils/100 WBC (Bld) 2.5 % 0-5 [facility] Work Phone: Glucose [Mass/Vol] 129 mg/dL 74-106 [facility] Work Phone: Comment on above: Fasting Glucose resu lt greater than or equal to 126 mg/dL suggests DIABETES MELLITUS per A.D.A. criteria. Neutrophils (Bld) [#/Vol] 6.7 10*3/uL 2.0-7.7 [facility] Work Phone: Neutrophils/100 WBC (Bld) 72.8 % 47-70 [facility] Work Phone: Potassium [Moles/Vol] 3.8 mmol/L 3.5-5.1 [facility] Work Phone: Sodium [Moles/Vol] 142 mmol/L 136-145 [facility] Work Phone: WBC (Bld) [#/Vol] 9.3 10*3/uL 4.4-11.0 [facility] Work Phone: Blood erythrocytes count (nu mber/volume)on 01-10-2022 RBC (Bld) [#/Vol] 4.72 10*6/uL 4.6-6.2 [facility] Work Phone: Blood hemoglobin measurement (mass/volume)on 01-10-2022 Hemoglobin (Bld) [Mass/Vol] 13.5 g/dL 13.0-16.5 [facility] Work Phone: Blood lymphocytes/100 leukoc yteson 01-10-2022 Lymphocytes/100 WBC (Bld) 15.7 % 19-41 [facility] Work Phone: Blood monocytes/100 leukocyt eson 01-10-2022 Monocytes/100 WBC (Bld) 8.1 % 0-10 [facility] Work Phone: Blood platelet mean volumeon 01-10-2022 Platelet mean volume (Bld) [Entitic vol] 9.8 fL 6.2-12.0 [facility] Work Phone: Determination of erythrocyte mean corpuscular volume (MCV)on 01-10-2022 MCV (RBC) [Entitic vol] 86.0 fL 80-94 [facility] Work Phone: Hematocrit Auto (Bld) [Volum e fraction]on 01-10-2022 Hematocrit (Bld) [Volume fraction] 40.6 % 40-54 [facility] Work Phone: Laboratory - Chemistry and C hemistry - challengeon 01-10-2022 CO2 [Moles/Vol] 24.0 mmol/L 21.0-32.0 [facility] Work Phone: Magnesium [Mass/Vol] 2.1 mg/dL 1.6-2.6 [facility] Work Phone: Laboratory - Hematology and Cell countson 01-10-2022 Erythrocyte distribution width (RBC) [Entitic vol] 39.8 fL 35.1-43.9 [facility] Work Phone: Erythrocyte distribution width (RBC) [Ratio] 12.8 % 11.6-14.6 [facility] Work Phone: Immature granulocytes/100 WBC (Bld) 0.300 % 0.0-0.9 [facility] Work Phone: Comment on above: IG% - Immature Granu locytes (promyelocytes, myelocytes and metamyelocytes) > 1% indicates that a LEFT SHIFT is Present. MCH (RBC) [Entitic mass] 28.6 pg 27.0-32.0 [facility] Work Phone: Nucleated RBC/100 WBC (Bld) [Ratio] 0 % 0-5 [facility] Work Phone: MCHC Auto (RBC) [Mass/Vol]on 01-10-2022 MCHC (RBC) [Mass/Vol] 33.3 g/dL 32-36 [facility] Work Phone: No Panel Informationon 01-10 Estimated GFR (MDRD) Amer 85 mL/min >60 [facility] Work Phone: Comment on above: GFR Calc Estimated GFR (MDRD) Non-Af Amer 70 mL/min >60 [facility] Work Phone: Comment on above: Non- GFR Calc Tacrolimus (Prograf) Level 5.0 ng/mL 2.0-20.0 [facility] Work Phone: Comment on above: Trough (immediately following transplant) 15.0 Trough (steady state, 2 weeks or more after transplant): 3.0 - 8.0 Performed by LC-MS/MS technology.Performed at: [address] [id number] Director: Martínez Orellana MD, Phone: [phone] Platelets bldon 01-10-2022 Platelets (Bld) [#/Vol] 277 10*3/uL 150-450 [facility] Work Phone: Serum or plasma calcium jenny urement (mass/volume)on 01-10-2022 Calcium [Mass/Vol] 9.6 mg/dL 8.5-10.[address] [facility] Work Phone: Serum or plasma creatinine m easurement (mass/volume)on 01-10-2022 Creatinine [Mass/Vol] 1.11 mg/dL 0.70-1.30 [facility] Work Phone: Comment on above: The validity of the calculated GFR & GFRAA in patients over 70 years has not been determined. Clinical correlation is essential. Serum or plasma urea nitroge n measurement (mass/volume)on 01-10-2022 Urea nitrogen [Mass/Vol] 13 mg/dL 7-18 [facility] Work Phone: Thin prep Papanicolaou smear with manual screeningon 01-10-2022 Thin prep Papanicolaou smear with manual screening 6 5-15 [facility] Work Phone: Absolute lymphocyte counton 11-08-2021 Lymphocytes Auto (Unsp spec) [#/Vol] 1.40 10*3/uL 0.83-4.51 [facility] Work Phone: Basophil percentageon 2021 Basophil percentage 0-5 SEEN /hpf 0-5 [facility] Work Phone: Basophils/100 WBC (Bld) 0.7 % 0-1 [facility] Work Phone: Bilirubin [Mass/Vol] 0.50 mg/dL 0.20-1.00 [facility] Work Phone: Comment on above: For patients on eltr ombopag therapy, use of Dimension [place] TBIL is not recommended. Chloride [Moles/Vol] 109 mmol/L 98-107 [facility] Work Phone: Cholesterol [Mass/Vol] 197 mg/dL <[address] [facility] Work Phone: Comment on above: <200 mg/dL Desirable 200-240 mg/dL Borderline >240 mg/dL High Risk Eosinophils/100 WBC (Bld) 2.2 % 0-5 [facility] Work Phone: [phone] Glucose [Mass/Vol] 171 mg/dL 74-106 [facility] Work Phone: Comment on above: Fasting Glucose resu lt greater than or equal to 126 mg/dL suggests DIABETES MELLITUS per A.D.A. criteria. Neutrophils (Bld) [#/Vol] 4.9 10*3/uL 2.0-7.7 [facility] Work Phone: Neutrophils/100 WBC (Bld) 68.2 % 47-70 [facility] Work Phone: Potassium [Moles/Vol] 4.1 mmol/L 3.5-5.1 [facility] Work Phone: Protein [Mass/Vol] 6.9 g/dL 6.4-8.2 [facility] Work Phone: Sodium [Moles/Vol] 140 mmol/L 136-145 [facility] Work Phone: Triglyceride [Mass/Vol] 188 mg/dL <199 [facility] Work Phone: Comment on above: The drugs N-Acetylcy steine and Metamizole may falsely depress this assay.Serum Triglycerides Reference Interval Normal <150 mg/dL Borderline high 150 - 199 mg/dL High 200 - 499 mg/dL Very High > or = 500 mg/dL WBC (Bld) [#/Vol] 7.2 10*3/uL 4.4-11.0 [facility] Work Phone: Bilirubin Test strip Ql (U)o n 11-08-2021 Bilirubin Ql (U) Negative Negative [facility] Work Phone: Blood erythrocytes count (nu mber/volume)on 11-08-2021 RBC (Bld) [#/Vol] 4.89 10*6/uL 4.6-6.2 [facility] Work Phone: Blood hemoglobin measurement (mass/volume)on 11-08-2021 Hemoglobin (Bld) [Mass/Vol] 14.1 g/dL 13.0-16.5 [facility] Work Phone: Blood lymphocytes/100 leukoc yteson 11-08-2021 Lymphocytes/100 WBC (Bld) 19.4 % 19-41 [facility] Work Phone: Blood monocytes/100 leukocyt eson 11-08-2021 Monocytes/100 WBC (Bld) 8.9 % 0-10 [facility] Work Phone: Blood platelet mean volumeon 11-08-2021 Platelet mean volume (Bld) [Entitic vol] 10.2 fL 6.2-12.0 [facility] Work Phone: Determination of erythrocyte mean corpuscular volume (MCV)on 11-08-2021 MCV (RBC) [Entitic vol] 85.5 fL 80-94 [facility] Work Phone: Hematocrit Auto (Bld) [Volum e fraction]on 11-08-2021 Hematocrit (Bld) [Volume fraction] 41.8 % 40-54 [facility] Work Phone: Ketones Test strip Ql (U)on 11-08-2021 Ketones Ql (U) Negative Negative [facility] Work Phone: Laboratory - Chemistry and C hemistry - challengeon 11-08-2021 ALP [Catalytic activity/Vol] 71 U/L 45-117 [facility] Work Phone: ALT [Catalytic activity/Vol] 25 U/L 16-61 [facility] Work Phone: CO2 [Moles/Vol] 23.0 mmol/L 21.0-32.0 [facility] Work Phone: Globulin (S) [Mass/Vol] 3.0 g/dL 2.2-4.2 [facility] Work Phone: Urea nitrogen/Creatinine [Mass ratio] 12.6 mg/mg 10-20 [facility] Work Phone: Laboratory - Hematology and Cell countson 11-08-2021 Erythrocyte distribution width (RBC) [Entitic vol] 39.5 fL 35.1-43.9 [facility] Work Phone: Erythrocyte distribution width (RBC) [Ratio] 12.8 % 11.6-14.6 [facility] Work Phone: Immature granulocytes/100 WBC (Bld) 0.600 % 0.0-0.9 [facility] Work Phone: Comment on above: IG% - Immature Granu locytes (promyelocytes, myelocytes and metamyelocytes) > 1% indicates that a LEFT SHIFT is Present. MCH (RBC) [Entitic mass] 28.8 pg 27.0-32.0 [facility] Work Phone: Nucleated RBC/100 WBC (Bld) [Ratio] 0 % 0-5 [facility] Work Phone: MCHC Auto (RBC) [Mass/Vol]on 11-08-2021 MCHC (RBC) [Mass/Vol] 33.7 g/dL 32-36 [facility] Work Phone: Mucus LM Ql (Urine sed)on Mucus Ql (Urine sed) 0 SEEN /hpf [facility] Work Phone: Nitrite Test strip Ql (U)on 11-08-2021 Nitrite Ql (U) Negative Negative [facility] Work Phone: No Panel Informationon 11-08 Estimated GFR (MDRD) Amer 85 mL/min >60 [facility] Work Phone: Comment on above: GFR Calc Estimated GFR (MDRD) Non-Af Amer 70 mL/min >60 [facility] Work Phone: Comment on above: Non- GFR Calc Prostate Specific Antigen Total 2.01 ng/mL 0.0-4.0 [facility] Work Phone: Comment on above: This test was perfor med using the TPSA assay method for [employer] chemistry system. Values obtained with differentassay methods cannot be used interchangably.When changing PSA assays in the course of monitoring apatient, additional sequential testing should be carriedout to confirm baseline values. Tacrolimus (Prograf) Level 6.8 ng/mL 2.0-20.0 [facility] Work Phone: Comment on above: Trough (immediately following transplant) 15.0 Trough (steady state, 2 weeks or more after transplant): 3.0 - 8.0 Performed by LC-MS/MS technology.Performed at: [facility] [address] [id number] Director: Martínez Orellana MD, Phone: [phone] Urine Microalbumin/Creatinine Ratio 24.1 mg/g CRE <30 [facility] Work Phone: Vitamin D 25-Hydroxy 36.2 ng/mL [facility] Work Phone: Comment on above: Vitamin D 25(OH) Sta tus Range Deficiency <20 ng/mL (50nmol/L) Insufficiency 20 - 30 ng/mL (50 - 75 nmol/L) Sufficiency 30 - 100 ng/mL (75 - 250 nmol/L) Toxicity >100 ng/mL (>250 nmol/L) Platelets bldon 11-08-2021 Platelets (Bld) [#/Vol] 240 10*3/uL 150-450 [facility] Work Phone: Protein Test strip Ql (U)on 11-08-2021 Protein Ql (U) 15 mg/dl Negative [facility] Work Phone: Serum or plasma albumin jenny urement (mass/volume)on 11-08-2021 Albumin [Mass/Vol] 3.9 g/dL 3.2-5.0 [facility] Work Phone: Serum or plasma albumin/glob ulin mass ratioon 11-08-2021 Albumin/Globulin [Mass ratio] 1.3 {ratio} 0.9-2.4 [facility] Work Phone: Serum or plasma calcium jenny urement (mass/volume)on 11-08-2021 Calcium [Mass/Vol] 8.8 mg/dL 8.5-10.1 [facility] Work Phone: Serum or plasma cholesterol in HDL measurement (mass/volume)on 11-08-2021 Cholesterol in HDL [Mass/Vol] 43 mg/dL >40 [facility] Work Phone: Comment on above: The drugs N-Acetylcy steine and Metamizole may falsely depress this assay. Reference Range HDL <40 mg/dL Low HDL Cholesterol HDL >or= 60 mg/dL High HDL Cholesterol Serum or plasma cholesterol in VLDL measurement (mass/volume)on 11-08-2021 Cholesterol in VLDL [Mass/Vol] 38 mg/dL 5-40 [facility] Work Phone: Serum or plasma creatinine m easurement (mass/volume)on 11-08-2021 Creatinine [Mass/Vol] 1.11 mg/dL 0.70-1.30 [facility] Work Phone: Comment on above: The validity of the calculated GFR & GFRAA in patients over 70 years has not been determined. Clinical correlation is essential. Serum or plasma low density lipoprotein (LDL) cholesterol measurement (mass/volume)on 11-08-2021 Cholesterol in LDL [Mass/Vol] 116 mg/dL 0-130 [facility] Work Phone: Serum or plasma urea nitroge n measurement (mass/volume)on 11-08-2021 Urea nitrogen [Mass/Vol] 14 mg/dL 7-18 [facility] Work Phone: Squamous epithelial cells de tection in urine sediment by light microscopyon 11-08-2021 Epithelial cells.squamous LM Ql (Urine sed) 0 SEEN /hpf 0-5 [facility] Work Phone: Thin prep Papanicolaou smear with manual screeningon 11-08-2021 Thin prep Papanicolaou smear with manual screening 21 U/L 15-37 [facility] Work Phone: Thin prep Papanicolaou smear with manual screening 8 5-15 [facility] Work Phone: Thin prep Papanicolaou smear with manual screening 33.3 mg/L NO RANGE EST. [facility] Work Phone: Urine blood detectionon 05-0 RBC Ql (U) Negative Negative [facility] Work Phone: RBC Ql (U) 0 SEEN /hpf 0-5 [facility] Work Phone: Urine clarityon 11-08-2021 Clarity (U) Clear Clear [facility] Work Phone: Urine color determinationon 11-08-2021 Color (U) Yellow Yellow [facility] Work Phone: Urine creatinine measurement (mass/volume)on 11-08-2021 Creatinine (U) [Mass/Vol] 138.00 mg/dL NO RANGE EST. [facility] Work Phone: Urine glucose detectionon Glucose Ql (U) Normal mg/dl Normal [facility] Work Phone: Urine leukocyte esterase det ection by dipstickon 11-08-2021 Leukocyte esterase Test strip Ql (U) 25 /ul Negative [facility] Work Phone: Urine pHon 11-08-2021 pH (U) 6.0 [pH] 5.0 - 8.0 [facility] Work Phone: Urine sediment bacteria coun t by microscopy (number/high power field)on 11-08-2021 Bacteria LM.HPF (Urine sed) [#/Area] 0 /[HPF] None Seen [facility] Work Phone: Urine specific gravity measu rementon 11-08-2021 Specific gravity (U) [Rel density] 1.015 1.002-1.03 0 [facility] Work Phone: Urobilinogen Auto test strip Ql (U)on 11-08-2021 Urobilinogen Ql (U) Normal mg/dl Normal [facility] Work Phone: Whole blood hemoglobin A1c/t otal hemoglobin ratio (mass fraction)on 11-08-2021 HbA1c (Bld) [Mass fraction] 9.0 % 3.8-5.6 [facility] Work Phone: Comment on above: Normal < 5.7 % Predi abetic 5.7 - 6.4 % Diabetic >or= 6.5 % Please note range changes. Absolute lymphocyte counton 10-11-2021 Lymphocytes Auto (Unsp spec) [#/Vol] 1.27 10*3/uL 0.83-4.51 [facility] Work Phone: Basophil percentageon 2021 Basophil percentage 2.8 mg/dL 2.5-4.9 [facility] Work Phone: Basophils/100 WBC (Bld) 0.7 % 0-1 [facility] Work Phone: Bilirubin [Mass/Vol] 0.40 mg/dL 0.20-1.00 [facility] Work Phone: Comment on above: For patients on eltr ombopag therapy, use of Dimension [place] TBIL is not recommended. Chloride [Moles/Vol] 109 mmol/L 98-107 [facility] Work Phone: Cholesterol [Mass/Vol] 175 mg/dL <200 [facility] Work Phone: Comment on above: <200 mg/dL Desirable 200-240 mg/dL Borderline >240 mg/dL High Risk Eosinophils/100 WBC (Bld) 1.9 % 0-5 [facility] Work Phone: Glucose [Mass/Vol] 176 mg/dL 74-106 [facility] Work Phone: Comment on above: Fasting Glucose resu lt greater than or equal to 126 mg/dL suggests DIABETES MELLITUS per A.D.A. criteria. Neutrophils (Bld) [#/Vol] 4.7 10*3/uL 2.0-7.7 [facility] Work Phone: Neutrophils/100 WBC (Bld) 69.0 % 47-70 [facility] Work Phone: Potassium [Moles/Vol] 4.0 mmol/L 3.5-5.1 [facility] Work Phone: Protein [Mass/Vol] 7.2 g/dL 6.4-8.2 [facility] Work Phone: Sodium [Moles/Vol] 139 mmol/L 136-145 [facility] Work Phone: Triglyceride [Mass/Vol] 153 mg/dL <199 [facility] Work Phone: Comment on above: The drugs N-Acetylcy steine and Metamizole may falsely depress this assay.Serum Triglycerides Reference Interval Normal <150 mg/dL Borderline high 150 - 199 mg/dL High 200 - 499 mg/dL Very High > or = 500 mg/dL WBC (Bld) [#/Vol] 6.8 10*3/uL 4.4-11.0 [facility] Work Phone: Blood erythrocytes count (nu mber/volume)on 10-11-2021 RBC (Bld) [#/Vol] 4.87 10*6/uL 4.6-6.2 [facility] Work Phone: Blood hemoglobin measurement (mass/volume)on 10-11-2021 Hemoglobin (Bld) [Mass/Vol] 13.7 g/dL 13.0-16.5 [facility] Work Phone: Blood lymphocytes/100 leukoc yteson 10-11-2021 Lymphocytes/100 WBC (Bld) 18.8 % 19-41 [facility] Work Phone: Blood monocytes/100 leukocyt eson 10-11-2021 Monocytes/100 WBC (Bld) 9.2 % 0-10 [facility] Work Phone: Blood platelet mean volumeon 10-11-2021 Platelet mean volume (Bld) [Entitic vol] 10.2 fL 6.2-12.0 [facility] Work Phone: Determination of erythrocyte mean corpuscular volume (MCV)on 10-11-2021 MCV (RBC) [Entitic vol] 84.4 fL 80-94 [facility] Work Phone: Hematocrit Auto (Bld) [Volum e fraction]on 10-11-2021 Hematocrit (Bld) [Volume fraction] 41.1 % 40-54 [facility] Work Phone: Iron measurement (mass/mass) on 10-11-2021 Iron (Unsp spec) [Mass/Mass] 100 ug/dL 65-175 [facility] Work Phone: Laboratory - Chemistry and C hemistry - challengeon 10-11-2021 ALP [Catalytic activity/Vol] 71 U/L 45-117 [facility] Work Phone: ALT [Catalytic activity/Vol] 24 U/L 16-61 [facility] Work Phone: CO2 [Moles/Vol] 25.0 mmol/L 21.0-32.0 [facility] Work Phone: Globulin (S) [Mass/Vol] 3.3 g/dL 2.2-4.2 [facility] Work Phone: Magnesium [Mass/Vol] 1.7 mg/dL 1.6-2.[address] [facility] Work Phone: Transferrin [Mass/Vol] 200 mg/dL 177-[address] [facility] Work Phone: Comment on above: Performed at: [address] [id number] Director: Martínez Orellana MD, Phone: [phone] at: [facility] [address] [id number] Director: Brad Berkowitz PhD, Phone: [phone] Urea nitrogen/Creatinine [Mass ratio] 14.8 mg/mg 10-20 [facility] Work Phone: Laboratory - Hematology and Cell countson 10-11-2021 Erythrocyte distribution width (RBC) [Entitic vol] 38.8 fL 35.1-43.9 [facility] Work Phone: Erythrocyte distribution width (RBC) [Ratio] 12.8 % 11.6-14.6 [facility] Work Phone: Immature granulocytes/100 WBC (Bld) 0.400 % 0.0-0.9 [facility] Work Phone: Comment on above: IG% - Immature Granu locytes (promyelocytes, myelocytes and metamyelocytes) > 1% indicates that a LEFT SHIFT is Present. MCH (RBC) [Entitic mass] 28.1 pg 27.0-32.0 [facility] Work Phone: Nucleated RBC/100 WBC (Bld) [Ratio] 0 % 0-5 [facility] Work Phone: MCHC Auto (RBC) [Mass/Vol]on 10-11-2021 MCHC (RBC) [Mass/Vol] 33.3 g/dL 32-36 [facility] Work Phone: No Panel Informationon 10-11 Estimated GFR (MDRD) Amer 88 mL/min >60 [facility] Work Phone: Comment on above: GFR Calc Estimated GFR (MDRD) Non-Af Amer 73 mL/min >60 [facility] Work Phone: Comment on above: Non- GFR Calc Miscellaneous Test See comment [facility] Work Phone: Comment on above: TEST RESULT LIMITSBK V Quant PCRBKV DNA, Quant PCR, Plasma Negative IU/mL Negative No BK DNA detected. The linear range of the assay is 22 - 100,000,000 IU/mL. _ TESTING PERFORMED AT [facility]. ORIGINAL REPORT ON FILE IN LAB CONTAINS ADDITIONAL TEST SITE INFORMATION. Tacrolimus (Prograf) Level 5.6 ng/mL 2.0-20.0 [facility] Work Phone: Comment on above: Trough (immediately following transplant) 15.0 Trough (steady state, 2 weeks or more after transplant): 3.0 - 8.0 Performed by LC-MS/MS technology. Total Iron Binding Capacity 263 ug/dL 250-450 [facility] Work Phone: Platelets bldon 10-11-2021 Platelets (Bld) [#/Vol] 242 10*3/uL 150-450 [facility] Work Phone: Serum or plasma albumin jenny urement (mass/volume)on 10-11-2021 Albumin [Mass/Vol] 3.9 g/dL 3.2-5.0 [facility] Work Phone: Serum or plasma albumin/glob ulin mass ratioon 10-11-2021 Albumin/Globulin [Mass ratio] 1.2 {ratio} 0.9-2.4 [facility] Work Phone: Serum or plasma calcium jenny urement (mass/volume)on 10-11-2021 Calcium [Mass/Vol] 9.0 mg/dL 8.5-10.1 [facility] Work Phone: Serum or plasma cholesterol in HDL measurement (mass/volume)on 10-11-2021 Cholesterol in HDL [Mass/Vol] 43 mg/dL >40 [facility] Work Phone: Comment on above: The drugs N-Acetylcy steine and Metamizole may falsely depress this assay. Reference Range HDL <40 mg/dL Low HDL Cholesterol HDL >or= 60 mg/dL High HDL Cholesterol Serum or plasma cholesterol in VLDL measurement (mass/volume)on 10-11-2021 Cholesterol in VLDL [Mass/Vol] 31 mg/dL 5-40 [facility] Work Phone: Serum or plasma creatinine m easurement (mass/volume)on 10-11-2021 Creatinine [Mass/Vol] 1.08 mg/dL 0.70-1.30 [facility] Work Phone: Comment on above: The validity of the calculated GFR & GFRAA in patients over 70 years has not been determined. Clinical correlation is essential. Serum or plasma ferritin britany surement (mass/volume)on 10-11-2021 Ferritin [Mass/Vol] 597 ng/mL 26-388 [facility] Work Phone: Serum or plasma low density lipoprotein (LDL) cholesterol measurement (mass/volume)on 10-11-2021 Cholesterol in LDL [Mass/Vol] 101 mg/dL 0-130 [facility] Work Phone: Serum or plasma urea nitroge n measurement (mass/volume)on 10-11-2021 Urea nitrogen [Mass/Vol] 16 mg/dL 7-18 [facility] Work Phone: Serum or plasma uric acid me asurement (mass/volume)on 10-11-2021 Urate [Mass/Vol] 5.9 mg/dL 3.5-7.2 [facility] Work Phone: Comment on above: The drugs N-Acetylcy steine and Metamizole may falsely depress this assay. Thin prep Papanicolaou smear with manual screeningon 10-11-2021 Thin prep Papanicolaou smear with manual screening 18 U/L 15-37 [facility] Work Phone: Thin prep Papanicolaou smear with manual screening 5 5-15 [facility] Work Phone: Urine creatinine measurement (mass/volume)on 10-11-2021 Creatinine (U) [Mass/Vol] 99.10 mg/dL NO RANGE EST. [facility] Work Phone: Urine protein measurement (m ass/volume)on 10-11-2021 Protein (U) [Mass/Vol] 15.8 mg/dL 0.0-11.8 [facility] Work Phone: Urine protein/creatinine mas s ratioon 10-11-2021 Protein/Creatinine (U) [Mass ratio] 159 mg/g CRE 0-200 [facility] Work Phone: [phone] Absolute lymphocyte counton 09-06-2021 Lymphocytes Auto (Unsp spec) [#/Vol] 1.33 10*3/uL 0.83-4.51 [facility] Work Phone: Basophil percentageon 2021 Basophils/100 WBC (Bld) 0.6 % 0-1 [facility] Work Phone: Chloride [Moles/Vol] 110 mmol/L 98-107 [facility] Work Phone: [phone] Eosinophils/100 WBC (Bld) 1.7 % 0-5 [facility] Work Phone: Glucose [Mass/Vol] 100 mg/dL 74-106 [facility] Work Phone: [phone] Comment on above: Fasting Glucose resu lt from 100 to 125 mg/dL suggests IMPAIRED HOMEOSTASIS per A.D.A. criteria. Neutrophils (Bld) [#/Vol] 4.4 10*3/uL 2.0-7.7 [facility] Work Phone: [phone] Neutrophils/100 WBC (Bld) 66.9 % 47-70 [facility] Work Phone: [phone] Potassium [Moles/Vol] 3.9 mmol/L 3.5-5.1 [facility] Work Phone: Sodium [Moles/Vol] 142 mmol/L 136-145 [facility] Work Phone: WBC (Bld) [#/Vol] 6.5 10*3/uL 4.4-11.0 [facility] Work Phone: Blood erythrocytes count (nu mber/volume)on 09-06-2021 RBC (Bld) [#/Vol] 4.85 10*6/uL 4.6-6.2 [facility] Work Phone: Blood hemoglobin measurement (mass/volume)on 09-06-2021 Hemoglobin (Bld) [Mass/Vol] 13.9 g/dL 13.0-16.5 [facility] Work Phone: Blood lymphocytes/100 leukoc yteson 09-06-2021 Lymphocytes/100 WBC (Bld) 20.5 % 19-41 [facility] Work Phone: Blood monocytes/100 leukocyt eson 09-06-2021 Monocytes/100 WBC (Bld) 9.8 % 0-10 [facility] Work Phone: Blood platelet mean volumeon 09-06-2021 Platelet mean volume (Bld) [Entitic vol] 9.6 fL 6.2-12.0 [facility] Work Phone: Determination of erythrocyte mean corpuscular volume (MCV)on 09-06-2021 MCV (RBC) [Entitic vol] 84.5 fL 80-94 [facility] Work Phone: Hematocrit Auto (Bld) [Volum e fraction]on 09-06-2021 Hematocrit (Bld) [Volume fraction] 41.0 % 40-54 [facility] Work Phone: Laboratory - Chemistry and C hemistry - challengeon 09-06-2021 CO2 [Moles/Vol] 27.0 mmol/L 21.0-32.0 [facility] Work Phone: Laboratory - Hematology and Cell countson 09-06-2021 Erythrocyte distribution width (RBC) [Entitic vol] 38.7 fL 35.1-43.9 [facility] Work Phone: Erythrocyte distribution width (RBC) [Ratio] 12.7 % 11.6-14.6 [facility] Work Phone: Immature granulocytes/100 WBC (Bld) 0.500 % 0.0-0.9 [facility] Work Phone: Comment on above: IG% - Immature Granu locytes (promyelocytes, myelocytes and metamyelocytes) > 1% indicates that a LEFT SHIFT is Present. MCH (RBC) [Entitic mass] 28.7 pg 27.0-32.0 [facility] Work Phone: Nucleated RBC/100 WBC (Bld) [Ratio] 0 % 0-5 [facility] Work Phone: MCHC Auto (RBC) [Mass/Vol]on 09-06-2021 MCHC (RBC) [Mass/Vol] 33.9 g/dL 32-36 [facility] Work Phone: No Panel Informationon 09-06 Estimated GFR (MDRD) Amer 80 mL/min >60 [facility] Work Phone: Comment on above: GFR Calc Estimated GFR (MDRD) Non-Af Amer 66 mL/min >60 [facility] Work Phone: Comment on above: Non- GFR Calc Tacrolimus (Prograf) Level 6.2 ng/mL [facility] Work Phone: Comment on above: Trough (immediately following transplant) 15.0 Trough (steady state, 2 weeks or more after transplant): 3.0 - 8.0 Performed by LC-MS/MS technology.Performed at: [address] [id number] Director: Martínez Orellana MD, Phone: [phone] Platelets bldon 09-06-2021 Platelets (Bld) [#/Vol] 235 10*3/uL 150-450 [facility] Work Phone: Serum or plasma creatinine m easurement (mass/volume)on 09-06-2021 Creatinine [Mass/Vol] 1.17 mg/dL 0.70-1.30 [facility] Work Phone: Comment on above: The validity of the calculated GFR & GFRAA in patients over 70 years has not been determined. Clinical correlation is essential. Serum or plasma urea nitroge n measurement (mass/volume)on 09-06-2021 Urea nitrogen [Mass/Vol] 16 mg/dL 7-18 [facility] Work Phone: Thin prep Papanicolaou smear with manual screeningon 09-06-2021 Thin prep Papanicolaou smear with manual screening 5 5-15 [facility] Work Phone: Absolute lymphocyte counton 08-09-2021 Lymphocytes Auto (Unsp spec) [#/Vol] 1.44 10*3/uL 0.83-4.51 [facility] Work Phone: Basophil percentageon 2021 Basophils/100 WBC (Bld) 0.6 % 0-1 [facility] Work Phone: Chloride [Moles/Vol] 109 mmol/L 98-107 [facility] Work Phone: Eosinophils/100 WBC (Bld) 1.8 % 0-5 [facility] Work Phone: Glucose [Mass/Vol] 135 mg/dL 74-106 [facility] Work Phone: Comment on above: Fasting Glucose resu lt greater than or equal to 126 mg/dL suggests DIABETES MELLITUS per A.D.A. criteria. Neutrophils (Bld) [#/Vol] 4.3 10*3/uL 2.0-7.7 [facility] Work Phone: Neutrophils/100 WBC (Bld) 64.8 % 47-70 [facility] Work Phone: Potassium [Moles/Vol] 4.1 mmol/L 3.5-5.1 [facility] Work Phone: [phone] Sodium [Moles/Vol] 143 mmol/L 136-145 [facility] Work Phone: WBC (Bld) [#/Vol] 6.7 10*3/uL 4.4-11.0 [facility] Work Phone: Blood erythrocytes count (nu mber/volume)on 08-09-2021 RBC (Bld) [#/Vol] 4.83 10*6/uL 4.6-6.2 [facility] Work Phone: Blood hemoglobin measurement (mass/volume)on 08-09-2021 Hemoglobin (Bld) [Mass/Vol] 13.8 g/dL 13.0-16.5 [facility] Work Phone: Blood lymphocytes/100 leukoc yteson 08-09-2021 Lymphocytes/100 WBC (Bld) 21.6 % 19-41 [facility] Work Phone: Blood monocytes/100 leukocyt eson 08-09-2021 Monocytes/100 WBC (Bld) 10.8 % 0-10 [facility] Work Phone: Blood platelet mean volumeon 08-09-2021 Platelet mean volume (Bld) [Entitic vol] 10.3 fL 6.2-12.0 [facility] Work Phone: Determination of erythrocyte mean corpuscular volume (MCV)on 08-09-2021 MCV (RBC) [Entitic vol] 86.1 fL 80-94 [facility] Work Phone: Hematocrit Auto (Bld) [Volum e fraction]on 08-09-2021 Hematocrit (Bld) [Volume fraction] 41.6 % 40-54 [facility] Work Phone: Laboratory - Chemistry and C hemistry - challengeon 08-09-2021 CO2 [Moles/Vol] 26.0 mmol/L 21.0-32.0 [facility] Work Phone: Laboratory - Hematology and Cell countson 08-09-2021 Erythrocyte distribution width (RBC) [Entitic vol] 40.3 fL 35.1-43.9 [facility] Work Phone: Erythrocyte distribution width (RBC) [Ratio] 12.9 % 11.6-14.6 [facility] Work Phone: Immature granulocytes/100 WBC (Bld) 0.400 % 0.0-0.9 [facility] Work Phone: Comment on above: IG% - Immature Granu locytes (promyelocytes, myelocytes and metamyelocytes) > 1% indicates that a LEFT SHIFT is Present. MCH (RBC) [Entitic mass] 28.6 pg 27.0-32.0 [facility] Work Phone: Nucleated RBC/100 WBC (Bld) [Ratio] 0 % 0-5 [facility] Work Phone: MCHC Auto (RBC) [Mass/Vol]on 08-09-2021 MCHC (RBC) [Mass/Vol] 33.2 g/dL 32-36 [facility] Work Phone: No Panel Informationon 08-09 Estimated GFR (MDRD) Amer 88 mL/min >60 [facility] Work Phone: Comment on above: GFR Calc Estimated GFR (MDRD) Non-Af Amer 73 mL/min >60 [facility] Work Phone: Comment on above: Non- GFR Calc Tacrolimus (Prograf) Level 5.6 ng/mL [facility] Work Phone: Comment on above: Trough (immediately following transplant) 15.0 Trough (steady state, 2 weeks or more after transplant): 3.0 - 8.0 Performed by LC-MS/MS technology.Performed at: [address] [id number] Director: Martínez Orellana MD, Phone: [phone] Platelets bldon 08-09-2021 Platelets (Bld) [#/Vol] 232 10*3/uL 150-450 [facility] Work Phone: Serum or plasma creatinine m easurement (mass/volume)on 08-09-2021 Creatinine [Mass/Vol] 1.08 mg/dL 0.70-1.30 [facility] Work Phone: Comment on above: The validity of the calculated GFR & GFRAA in patients over 70 years has not been determined. Clinical correlation is essential. Serum or plasma urea nitroge n measurement (mass/volume)on 08-09-2021 Urea nitrogen [Mass/Vol] 19 mg/dL 7-18 [facility] Work Phone: Thin prep Papanicolaou smear with manual screeningon 08-09-2021 Thin prep Papanicolaou smear with manual screening 8 5-15 [facility] Work Phone: Absolute lymphocyte counton 07-11-2021 Lymphocytes Auto (Unsp spec) [#/Vol] 1.23 10*3/uL 0.83-4.51 [facility] Work Phone: Basophil percentageon 2021 Basophils/100 WBC (Bld) 0.7 % 0-1 [facility] Work Phone: Bilirubin [Mass/Vol] 0.40 mg/dL 0.20-1.00 [facility] Work Phone: Comment on above: For patients on eltr ombopag therapy, use of Dimension [place] TBIL is not recommended. Chloride [Moles/Vol] 111 mmol/L 98-107 [facility] Work Phone: Eosinophils/100 WBC (Bld) 1.9 % 0-5 [facility] Work Phone: Glucose [Mass/Vol] 148 mg/dL 74-106 [facility] Work Phone: Comment on above: Fasting Glucose resu lt greater than or equal to 126 mg/dL suggests DIABETES MELLITUS per A.D.A. criteria.Please note revised GLUCOSE reference range effective 2017. Neutrophils (Bld) [#/Vol] 5.2 10*3/uL 2.0-7.7 [facility] Work Phone: Neutrophils/100 WBC (Bld) 70.2 % 47-70 [facility] Work Phone: Potassium [Moles/Vol] 4.1 mmol/L 3.5-5.1 [facility] Work Phone: Sodium [Moles/Vol] 143 mmol/L 136-145 [facility] Work Phone: WBC (Bld) [#/Vol] 7.4 10*3/uL 4.4-11.0 [facility] Work Phone: Blood erythrocytes count (nu mber/volume)on 07-11-2021 RBC (Bld) [#/Vol] 4.66 10*6/uL 4.6-6.2 [facility] Work Phone: Blood hemoglobin measurement (mass/volume)on 07-11-2021 Hemoglobin (Bld) [Mass/Vol] 13.1 g/dL 13.0-16.5 [facility] Work Phone: Blood lymphocytes/100 leukoc yteson 07-11-2021 Lymphocytes/100 WBC (Bld) 16.7 % 19-41 [facility] Work Phone: Blood monocytes/100 leukocyt eson 07-11-2021 Monocytes/100 WBC (Bld) 10.1 % 0-10 [facility] Work Phone: Blood platelet mean volumeon 07-11-2021 Platelet mean volume (Bld) [Entitic vol] 9.7 fL 6.2-12.0 [facility] Work Phone: Determination of erythrocyte mean corpuscular volume (MCV)on 07-11-2021 MCV (RBC) [Entitic vol] 86.9 fL 80-94 [facility] Work Phone: Hematocrit Auto (Bld) [Volum e fraction]on 07-11-2021 Hematocrit (Bld) [Volume fraction] 40.5 % 40-54 [facility] Work Phone: Laboratory - Chemistry and C hemistry - challengeon 07-11-2021 ALT [Catalytic activity/Vol] 24 U/L 16-61 [facility] Work Phone: CO2 [Moles/Vol] 26.0 mmol/L 21.0-32.0 [facility] Work Phone: Magnesium [Mass/Vol] 2.0 mg/dL 1.6-2.6 [facility] Work Phone: Laboratory - Hematology and Cell countson 07-11-2021 Erythrocyte distribution width (RBC) [Entitic vol] 40.1 fL 35.1-43.9 [facility] Work Phone: Erythrocyte distribution width (RBC) [Ratio] 12.8 % 11.6-14.6 [facility] Work Phone: Immature granulocytes/100 WBC (Bld) 0.400 % 0.0-0.9 [facility] Work Phone: Comment on above: IG% - Immature Granu locytes (promyelocytes, myelocytes and metamyelocytes) > 1% indicates that a LEFT SHIFT is Present. MCH (RBC) [Entitic mass] 28.1 pg 27.0-32.0 [facility] Work Phone: Nucleated RBC/100 WBC (Bld) [Ratio] 0 % 0-5 [facility] Work Phone: MCHC Auto (RBC) [Mass/Vol]on 07-11-2021 MCHC (RBC) [Mass/Vol] 32.3 g/dL 32-36 [facility] Work Phone: No Panel Informationon 07-11 Estimated GFR (MDRD) Amer 88 mL/min >60 [facility] Work Phone: Comment on above: GFR Calc Estimated GFR (MDRD) Non-Af Amer 73 mL/min >60 [facility] Work Phone: Comment on above: Non- GFR Calc Tacrolimus (Prograf) Level 4.8 ng/mL [facility] Work Phone: Comment on above: Trough (immediately following transplant) 15.0 Trough (steady state, 2 weeks or more after transplant): 3.0 - 8.0 Performed by LC-MS/MS technology.Performed at: [address] [id number] Director: Martínez Orellana MD, Phone: [phone] Platelets bldon 07-11-2021 Platelets (Bld) [#/Vol] 237 10*3/uL 150-450 [facility] Work Phone: Serum or plasma albumin jenny urement (mass/volume)on 07-11-2021 Albumin [Mass/Vol] 3.8 g/dL 3.2-5.0 [facility] Work Phone: Serum or plasma calcium jenny urement (mass/volume)on 07-11-2021 Calcium [Mass/Vol] 9.3 mg/dL 8.5-10.1 [facility] Work Phone: Serum or plasma creatinine m easurement (mass/volume)on 07-11-2021 Creatinine [Mass/Vol] 1.08 mg/dL 0.70-1.30 [facility] Work Phone: Comment on above: The validity of the calculated GFR & GFRAA in patients over 70 years has not been determined. Clinical correlation is essential. Serum or plasma urea nitroge n measurement (mass/volume)on 07-11-2021 Urea nitrogen [Mass/Vol] 18 mg/dL 7-18 [facility] Work Phone: Thin prep Papanicolaou smear with manual screeningon 07-11-2021 Thin prep Papanicolaou smear with manual screening 15 U/L 15-37 [facility] Work Phone: Thin prep Papanicolaou smear with manual screening 6 5-15 [facility] Work Phone: HLA CLASS II SP AB ID, HDon 11-03-2019 HLA CLASS II SP AB ID,HD SEE COMMENT [facility] Comment on above: Result Comment: HLA- CLASS II SP ANTIBODY IDENTIFICATION, HIGH DEFINITION SEE SEPARATE REPORT. Performed By: #### H LHD2 #### [facility] [id number] [place] [address] HLA CLASS I SP AB ID, HDon 0 10-16-2019 HLA CLASS I SP AB ID,HD SEE COMMENT [facility] Comment on above: Result Comment: HLA- CLASS I SP ANTIBODY IDENTIFICATION, HIGH DEFINITION SEE SEPARATE REPORT. Performed By: #### H LHD1 #### [facility] [id number] [place] [address] HLA CLASS II AB SCREEN,FCon 10-16-2019 HLA CLASS II AB SCREEN,FC SEE COMMENT [facility] Comment on above: Result Comment: HLA CLASS II AB SCREEN,FLOW CYTOMETRY SEE SEPARATE REPORT. Performed By: #### H LAS2 #### [facility] [address] [place] [address] CROSSMATCH, FREEZEon 020 CROSSMATCH, FREEZE COMMENT [facility] Comment on above: Result Comment: SEE SEPARATE REPORT. Performed By: #### H LFXM #### [facility] [address] [place] [address] Otheron 04-09-2019 SEE COMMENT [facility] Work Phone: Comment on above: HLA CLASS II AB SCRE EN,FLOW CYTOMETRY SEE SEPARATE REPORT. Transplant SW Assessment Upd ateon 04-08-2019 Transplant SW Assessment Update Note Body SW met with pt along with spouse and sister for psychosocial update. All were pleasant and engaged. Pt reports dialysis has been rough. He has not been hospitalized over the past year. Pt reports compliance with [facility]. Pt now has Medicare. Medical [place] is primary and Medicare is secondary. Pt identifies his spouse as primary support. HIs sister will be back up support. All supports drive and have reliable vehicles. Pt reports his mood as tired and sometimes down. He has more good days than down days. Pt does not have any donors. SW discussed the inpatient transplant stay and the need for support to be present for education session. SW also discussed the frequency of post op appointments, twice a week in the beginning. SW provided [facility] House brochure as pt [place] 1[place]5 hours away. Pt is low psychosocial risk. SW will see pt yearly. Signatures Electronically signed by : KASHMIR Tapia; Apr 08 2019 2:17PM EST (Author) [employer] Otheron 03-12-2019 COMMENT [facility] Work Phone: Comment on above: SEE SEPARATE REPORT. Otheron 02-17-2019 Interpreted by: GILLES GEORGE02/17/19 15:40MRN: [id number] Name: RODRI GALE STUDY:CARDIAC STRESS/REST INJECTION; PART 2 STRESS OR REST (NO CHARGE);CARDIAC STRESS/REST (MYOCARDIAL PERFUSION/MIBI); 02/17/2019 3:32 pm INDICATION:pre-kidney transplant. COMPARISON:Prior nuclear medicine stress test dated 12/05/2017 [id number]; [id number] ORDERING CLINICIAN:PAOLA SALAZAR TECHNIQUE:DIVISION OF NUCLEAR MEDICINEPHARMACOLOGIC STRESS MYOCARDIAL PERFUSION SCAN, ONE DAY PROTOCOL The patient received an intravenous dose of 10.6 mCi of Tc-99mMyoview and resting emission tomographic (SPECT) images of themyocardium were acquired. The patient then received an intravenousinfusion of 0.4 mg regadenoson (Lexiscan) followed by an additionaldose of 34.1 mCi of Tc-99m Myoview. Stress phase SPECT images of themyocardium were then acquired. These included ECG-gated images toassess and quantify ventricular function. FINDINGS:Stress and rest images both demonstrate a normal distribution ofperfusion throughout all LV segments with no sign of ischemia. ECG-gated images demonstrate normal LV size and myocardialcontractility with an LV ejection fraction of 60 % (normal above 45percent). IMPRESSION:1. Normal stress myocardial perfusion imaging in response topharmacologic stress without evidence of ischemia or infarct.Findings relatively unchanged in comparison to prior study.2. Well-maintained left ventricular function. Images interpreted at [facility].Electronically signed by: SMOOTH GEORGE 02/17/19 15:40 Normal -[facility] [address]100 Work Phone: Comment on above: ORDER REVISED TO A C ARDIAC STRESS/REST INJECTION BY RADIOLOGIST [id number] [address] [place] [address], [address] [place] [address], [address], [place] [address]Ysy [phone] and Raqlgjl Pharmacologic Stress TestPatient Name: Rodri Gale Ordering Physician:Study Date: 02/17/2019 Reading Physician: Kamilla Morocho MDMRN/PID: [id number] Supervising Physician: Kamilla Morocho MDAccession/Order#: [id number] Referring Physician: [id number] Munoz MDDate of : 1955 PCP: FLASH Bra MDGender: M Fellow:Admission Status: Outpatient Scout Leaser: Mary Lozoya: 177.80 cm Nurse: Alondra HarperWeight: 94.35 kg Travel Administrator: LAURASA: 2.12 m2 Technologist:BMI: 29.85 kg/m2 Additional Staff:Age: 63 years cc report to:Patient Location: [facility] cc report to:Stress LabStudy Type: Nuclear Stress Test PharmacologicalDiagnosis/I CD: Z01.818-Encounter for other preprocedural examinationIndication: Pretransplant evaluationProcedure/CPT: Stress Test Interpretation-[id number]; Stress Test Supervision-[id number] Risk: High: Patient has a high risk for sustaining a fall; a falls prevention plan has been implemented.Study Details: Correct procedure and correct patient verified verbally and withID Band checked.Patient History: . 63 yo male for pretransplant evaluation. PMH anemia, hypertension, hyperlipidemia, DM.Medications: The patient's prescribed medication is calcitriol, calcium, ferrex, finasteride, furosemide, hulalog, Lantus, losartan, meolazone, nifedipine, rosuvastatin, Vitamin D., labetalol. The patient took medications as prescribed.Patient Performance: Patient received a total of 0.4 mg of Regadenoson at 2:05:02 PM. Patient received a total of 34.1 mCi of Myoview at 2:05:35 PM. The patient did not exercise during infusion. The peak heart rate achieved was 74 bpm, which was 47 % of the age predicted target heart rate of 156 bpm. The resting blood pressure was 144/76 mmHg with a heart rate of 66 bpm. The patient developed no symptoms during the stress exam. The blood pressure response was normal. The test was terminated due to: completed lab protocol. Patient has met the discharge criteria and is discharged to home.Baseline ECG: Resting ECG showed normal sinus rhythm with incomplete right bundle branch block.Stress ECG: Stress ECG showed normal sinus rhythm, with no abnormal findings. No ST changes. Peak HR 74 Peak BP 139/69.Stress Stage Data:+--+------+-------+-- +\F\ HR\F\Sys BP\F\[place] BP\F\Comments \F\+--+------+-------+---- +\F\66 \F\144 \F\76 \F\ \F\+--+------+-------+---- +\F\70 \F\ \F\ \F\00:10 Lexiscan 0.4mg IVP\F\+--+------+-------+- +\F \74\F\125 \F\64 \F\01:00 \F\+--+------+-------+---- +\F\74 \F\139 \F\69 \F\02:00 \F\+--+------+-------+---- +Recov antonietta ECG: Recovery ECG showed normal sinus rhythm, with no abnormal findings. The heart rate recovery was normal.+ +--+--- ---+-------+--------+\F\ \F\HR\F\Sys BP\F\[place] BP\F\Comments\F\+--------- --+--+------+-------+----- ---+\F\Recovery I \F\74\F\142 \F\70 \F\02:00 \F\+ +--+------+ -------+--------+\F\Recove ry II\F\72\F\144 \F\67 \F\04:00 \F\+ +--+------+ -------+--------+Summary:1 . No clinical or electrocardiographic evidence for ischemia at a maximal infusion.2. Nuclear image results are reported separately.3. The adequate level of stress was achieved.[id number] Jamarcus Trejo MDElectronically signed on 02/17/2019 at 3:11:55 PM Final -Surgery- [facility] 2100 Work Phone: Vital Signs Date Time Vital Sign Value Performing Clinician Facility 10-28-2024 08:37-0400 Body height 179.1 cm Claribel Cioce ACCREDITED FARM MANAGER.IMPREGNATOR Work Phone: [facility] 10-28-2024 08:37-0400 Body mass index (BMI) [Ratio] 27.05 kg/m2 Claribel Cioce ACCREDITED FARM MANAGER.IMPREGNATOR Work Phone: [facility] 10-28-2024 08:37-0400 Body weight 86.73 kg Claribel Cioce ACCREDITED FARM MANAGER.IMPREGNATOR Work Phone: [facility] 10-28-2024 08:37-0400 Diastolic blood pressure 68 mm[Hg] Claribel Cioce ACCREDITED FARM MANAGER.IMPREGNATOR Work Phone: [facility] 10-28-2024 08:37-0400 Heart rate 55 /min Claribel Cioce ACCREDITED FARM MANAGER.IMPREGNATOR Work Phone: [facility] 10-28-2024 08:37-0400 Respiratory rate 20 /min Claribel Cioce ACCREDITED FARM MANAGER.IMPREGNATOR Work Phone: [facility] 10-28-2024 08:37-0400 SaO2% (BldA) [Mass fraction] 97 % Claribel Cioce ACCREDITED FARM MANAGER.IMPREGNATOR Work Phone: [facility] 10-28-2024 08:37-0400 Systolic blood pressure 148 mm[Hg] Claribel Cioce ACCREDITED FARM MANAGER.IMPREGNATOR Work Phone: [facility] 06-23-2024 08:03-0500 Body height 179.1 cm Alo Avina MD Work Phone: [facility] 06-23-2024 08:03-0500 Body mass index (BMI) [Ratio] 26.88 kg/m2 Alo Avina MD Work Phone: [facility] 06-23-2024 08:03-0500 Body weight 86.18 kg Alo Avina MD Work Phone: [facility] 06-23-2024 08:03-0500 Diastolic blood pressure 70 mm[Hg] Alo Avina MD Work Phone: [facility] 06-23-2024 08:03-0500 Heart rate 56 /min Alo Avina MD Work Phone: [facility] 06-23-2024 08:03-0500 Respiratory rate 16 /min Alo Avina MD Work Phone: [facility] 06-23-2024 08:03-0500 Systolic blood pressure 120 mm[Hg] Alo Avina MD Work Phone: [facility] 04-29-2024 09:39-0400 Body height 179.1 cm Claribel Cioce ACCREDITED FARM MANAGER.IMPREGNATOR Work Phone: [facility] 04-29-2024 09:39-0400 Body mass index (BMI) [Ratio] 27.64 kg/m2 Claribel Cioce ACCREDITED FARM MANAGER.IMPREGNATOR Work Phone: [facility] 04-29-2024 09:39-0400 Body temperature 98.29 [degF] Claribel Cioce ACCREDITED FARM MANAGER.IMPREGNATOR Work Phone: [facility] 04-29-2024 09:39-0400 Body weight 88.63 kg Claribel Cioce ACCREDITED FARM MANAGER.IMPREGNATOR Work Phone: [facility] 04-29-2024 09:39-0400 Diastolic blood pressure 76 mm[Hg] Claribel Cioce ACCREDITED FARM MANAGER.IMPREGNATOR Work Phone: [facility] 04-29-2024 09:39-0400 Heart rate 59 /min Claribel Cioce ACCREDITED FARM MANAGER.IMPREGNATOR Work Phone: [facility] 04-29-2024 09:39-0400 SaO2% (BldA) [Mass fraction] 96 % Claribel Cioce ACCREDITED FARM MANAGER.IMPREGNATOR Work Phone: [facility] 04-29-2024 09:39-0400 Systolic blood pressure 130 mm[Hg] Claribel Cioce ACCREDITED FARM MANAGER.IMPREGNATOR Work Phone: [facility] 01-20-2024 09:23-0400 Diastolic blood pressure 71 mm[Hg] Crystal Nation PA-C Work Phone: [facility] 01-20-2024 09:23-0400 Systolic blood pressure 136 mm[Hg] Crystal Nation PA-C Work Phone: [facility] 01-20-2024 07:11-0400 Body mass index (BMI) [Ratio] 27.3 kg/m2 Crystal Nation PA-C Work Phone: [facility] 01-20-2024 07:11-0400 Body temperature 97.7 [degF] Crystal Nation PA-C Work Phone: [facility] 01-20-2024 07:11-0400 Body weight 87.54 kg Crystal Nation PA-C Work Phone: [facility] 01-20-2024 07:11-0400 Heart rate 56 /min Crystal Nation PA-C Work Phone: [facility] 01-20-2024 07:11-0400 Respiratory rate 16 /min Crystal Nation PA-C Work Phone: [facility] 01-20-2024 07:11-0400 SaO2% (BldA) [Mass fraction] 97 % Crystal Nation PA-C Work Phone: [facility] 12-18-2023 07:53-0400 Diastolic blood pressure 66 mm[Hg] Crystal Nation PA-C Work Phone: [facility] Comment on above: [place] BP Average 12-18-2023 07:53-0400 Heart rate 55 /min Crystal Nation PA-C Work Phone: [facility] Comment on above: [place] BP Average 12-18-2023 07:53-0400 Systolic blood pressure 162 mm[Hg] Crystal Nation PA-C Work Phone: [facility] Comment on above: [place] BP Average 12-18-2023 06:56-0400 Body mass index (BMI) [Ratio] 27.73 kg/m2 Crystal Nation PA-C Work Phone: [facility] 12-18-2023 06:56-0400 Body temperature 97.11 [degF] Crystal Nation PA-C Work Phone: [facility] 12-18-2023 06:56-0400 Body weight 88.91 kg Crystal Nation PA-C Work Phone: [facility] 12-18-2023 06:56-0400 Respiratory rate 18 /min Crystal Nation PA-C Work Phone: [facility] 12-18-2023 06:56-0400 SaO2% (BldA) [Mass fraction] 99 % Crystal REICH-C Work Phone: [facility] 12-11-2023 09:05-0400 Body height 179.1 cm Claribel Cioce ACCREDITED FARM MANAGER.IMPREGNATOR Work Phone: [facility] 12-11-2023 09:05-0400 Body mass index (BMI) [Ratio] 27.41 kg/m2 Claribel Cioce ACCREDITED FARM MANAGER.IMPREGNATOR Work Phone: [facility] 12-11-2023 09:05-0400 Body temperature 97.11 [degF] Claribel Cioce ACCREDITED FARM MANAGER.IMPREGNATOR Work Phone: [facility] 12-11-2023 09:05-0400 Body weight 87.91 kg Claribel Cioce ACCREDITED FARM MANAGER.IMPREGNATOR Work Phone: [facility] 12-11-2023 09:05-0400 Diastolic blood pressure 76 mm[Hg] Claribel Cioce ACCREDITED FARM MANAGER.IMPREGNATOR Work Phone: [facility] 12-11-2023 09:05-0400 Heart rate 56 /min Claribel Cioce ACCREDITED FARM MANAGER.IMPREGNATOR Work Phone: [facility] 12-11-2023 09:05-0400 SaO2% (BldA) [Mass fraction] 97 % Claribel Cioce ACCREDITED FARM MANAGER.IMPREGNATOR Work Phone: [facility] 12-11-2023 09:05-0400 Systolic blood pressure 132 mm[Hg] Claribel Cioce ACCREDITED FARM MANAGER.IMPREGNATOR Work Phone: [facility] 11-22-2023 13:01-0400 Body mass index (BMI) [Ratio] 27.74 kg/m2 Jim Shaw MBBS Work Phone: [facility] 11-22-2023 13:01-0400 Body temperature 97.3 [degF] Jim Shaw MBBS Work Phone: [facility] 11-22-2023 13:01-0400 Body weight 87.68 kg Jim Shaw MBBS Work Phone: [facility] 11-22-2023 13:01-0400 Diastolic blood pressure 71 mm[Hg] Jim Shaw MBBS Work Phone: [facility] 11-22-2023 13:01-0400 Heart rate 54 /min Jim Shaw MBBS Work Phone: [facility] 11-22-2023 13:01-0400 Systolic blood pressure 151 mm[Hg] Jim Shaw MBBS Work Phone: [facility] 06-07-2023 03:55-0500 Body mass index (BMI) [Ratio] 30.8 kg/m2 [facility] 03-13-2023 08:48-0400 Body height 179.1 cm Claribel Cioce ACCREDITED FARM MANAGER.IMPREGNATOR Work Phone: [facility] 03-13-2023 08:48-0400 Body temperature 97.9 [degF] Claribel Cioce ACCREDITED FARM MANAGER.IMPREGNATOR Work Phone: [facility] 03-13-2023 08:48-0400 Body weight 84.91 kg Claribel Cioce ACCREDITED FARM MANAGER.IMPREGNATOR Work Phone: [facility] 03-13-2023 08:48-0400 Diastolic blood pressure 72 mm[Hg] Claribel Cioce ACCREDITED FARM MANAGER.IMPREGNATOR Work Phone: [facility] 03-13-2023 08:48-0400 Heart rate 70 /min Claribel Cioce ACCREDITED FARM MANAGER.IMPREGNATOR Work Phone: [facility] 03-13-2023 08:48-0400 SaO2% (BldA) [Mass fraction] 98 % Claribel Cioce ACCREDITED FARM MANAGER.IMPREGNATOR Work Phone: [facility] 03-13-2023 08:48-0400 Systolic blood pressure 118 mm[Hg] Claribel Cioce ACCREDITED FARM MANAGER.IMPREGNATOR Work Phone: [facility] 03-07-2023 23:17-0400 Body mass index (BMI) [Ratio] 30.8 kg/m2 [facility] 01-07-2023 13:41-0400 Body temperature 98.3 [degF] Dr. Aol Avina Work Phone: [facility] 01-07-2023 13:41-0400 Diastolic blood pressure 61 mm[Hg] Dr. Alo Avina Work Phone: [facility] 01-07-2023 13:41-0400 Heart rate 66 /min Dr. Alo Avina Work Phone: [facility] 01-07-2023 13:41-0400 Respiratory rate 18 /min Dr. Alo Avina Work Phone: 3(430)681-747094 [place] [address] 01-07-2023 13:41-0400 SaO2% (BldA) [Mass fraction] 90 % Dr. Alo Avina Work Phone: 2(954)876-513194 [place] [address] 01-07-2023 13:41-0400 Systolic blood pressure 138 mm[Hg] Dr. Alo Avina Work Phone: 3(067)354-320794 [place] [address] 01-07-2023 11:20-0400 Inhaled oxygen flow rate 2 L/min Dr. Alo Avina Work Phone: 3(082)791-612594 [place] [address] 01-06-2023 14:39-0400 Inhaled oxygen concentration 2 % Dr. Alo Avina Work Phone: 4(578)680-573594 [place] [address] 01-04-2023 09:43-0400 Body height 177.[address] Alo Avina Work Phone: 8(186)507-290194 [place] [address] 01-04-2023 09:43-0400 Body mass index (BMI) [Ratio] 27.5 kg/m2 Dr. Alo Avina Work Phone: 5(107)509-128094 [place] [address] 01-04-2023 09:43-0400 Body weight 87.[address] Alo Avina Work Phone: 3(752)423-821294 [place] [address] 01-03-2023 13:32-0400 Body temperature 98.6 [degF] Dr. Alo Avina Work Phone: 7(217)774-098394 [place] [address] 01-03-2023 13:32-0400 Diastolic blood pressure 65 mm[Hg] Dr. Alo Avina Work Phone: 0(573)376-994594 [place] [address] 01-03-2023 13:32-0400 Heart rate 67 /min Dr. Alo Avina Work Phone: 8(361)033-364894 [place] [address] 01-03-2023 13:32-0400 Respiratory rate 16 /min Dr. Alo Avina Work Phone: 3(705)048-228294 [place] [address] 01-03-2023 13:32-0400 SaO2% (BldA) [Mass fraction] 94 % Dr. Alo Avina Work Phone: [facility] 01-03-2023 13:32-0400 Systolic blood pressure 146 mm[Hg] Dr. Alo Avina Work Phone: [facility] 01-03-2023 11:02-0400 Body height 177.[address] Alo Avina Work Phone: [facility] 01-03-2023 11:02-0400 Body mass index (BMI) [Ratio] 27.8 kg/m2 Dr. Alo Avina Work Phone: 5(705)917-595310 [place] [address] 01-03-2023 11:02-0400 Body weight 87.[address] Alo Avina Work Phone: 6(356)591-946010 [place] [address] 01-03-2023 10:52-0400 Body temperature 100.4 [degF] Dr. Alo Avina Work Phone: 7(321)700-404210 [place] [address] 01-03-2023 10:52-0400 Diastolic blood pressure 60 mm[Hg] Dr. Alo Avina Work Phone: 5(170)378-407310 [place] [address] 01-03-2023 10:52-0400 Heart rate 75 /min Dr. Alo Avina Work Phone: [facility] 01-03-2023 10:52-0400 Respiratory rate 16 /min Dr. Alo Avina Work Phone: [facility] 01-03-2023 10:52-0400 SaO2% (BldA) [Mass fraction] 94 % Dr. Alo Avina Work Phone: [facility] 01-03-2023 10:52-0400 Systolic blood pressure 140 mm[Hg] Dr. Alo Avina Work Phone: [facility] 12-26-2022 07:50-0400 Body weight 87.54 kg Claribel Cope APRN.CNP Work Phone: [facility] 12-06-2022 08:34-0400 Diastolic blood pressure 58 mm[Hg] Alo Avina MD Work Phone: [facility] 12-06-2022 08:34-0400 Systolic blood pressure 138 mm[Hg] Alo Avina MD Work Phone: [facility] 12-06-2022 08:17-0400 Body mass index (BMI) [Ratio] 30.8 kg/m2 Dr. Alo Avina Work Phone: [facility] 12-06-2022 07:58-0400 Body height 179.1 cm Alo Avina MD Work Phone: [facility] 12-06-2022 07:58-0400 Body weight 87.54 kg Alo Avina MD Work Phone: 0(152)091-400767 [place] [address] 12-06-2022 07:58-0400 Heart rate 60 /min Alo Avina MD Work Phone: 9(580)633-919167 [place] [address] 12-06-2022 07:58-0400 Respiratory rate 14 /min Alo Avina MD Work Phone: [facility] 11-02-2022 07:05-0400 Body temperature 98.4 [degF] Dr. Alo Avina Work Phone: [facility] 11-02-2022 07:05-0400 Diastolic blood pressure 59 mm[Hg] Dr. Alo Avina Work Phone: [facility] 11-02-2022 07:05-0400 Heart rate 53 /min Dr. Alo Avina Work Phone: [facility] 11-02-2022 07:05-0400 Respiratory rate 16 /min Dr. Alo Avina Work Phone: [facility] 11-02-2022 07:05-0400 SaO2% (BldA) [Mass fraction] 99 % Dr. Alo Avina Work Phone: [facility] 11-02-2022 07:05-0400 Systolic blood pressure 120 mm[Hg] Dr. Alo Avina Work Phone: 6(114)509-949910 [place] [address] 11-02-2022 05:54-0400 Body height 177.[address] Alo Avina Work Phone: 5(578)311-547710 [place] [address] 11-02-2022 05:54-0400 Body mass index (BMI) [Ratio] 27.2 kg/m2 Dr. Alo Avina Work Phone: 0(259)950-925994 [place] [address] 11-02-2022 05:54-0400 Body weight 86.[address] Alo Avina Work Phone: 5(728)317-774094 [place] [address] 10-05-2022 23:18-0400 Body mass index (BMI) [Ratio] 30.8 kg/m2 Dr. Alo Avina Work Phone: 7(752)915-036794 [place] [address] 09-27-2022 14:05-0400 Body height 177.[address] Alo Avina Work Phone: 7(911)607-059994 [place] [address] 09-27-2022 14:05-0400 Body mass index (BMI) [Ratio] 28.5 kg/m2 Dr. Alo Avina Work Phone: 8(748)266-840794 [place] [address] 09-27-2022 14:05-0400 Body temperature 97 [degF] Dr. Alo Avina Work Phone: 8(710)704-415194 [place] [address] 09-27-2022 14:05-0400 Body weight 90.[address] Alo Avina Work Phone: 3(137)823-250694 [place] [address] 09-27-2022 14:05-0400 Diastolic blood pressure 68 mm[Hg] Dr. Alo Avina Work Phone: 7(951)806-508194 [place] [address] 09-27-2022 14:05-0400 Heart rate 65 /min Dr. Alo Avina Work Phone: 9(767)501-303810 [place] [address] 09-27-2022 14:05-0400 Respiratory rate 16 /min Dr. Alo Avina Work Phone: 2(121)126-944894 [place] [address] 09-27-2022 14:05-0400 SaO2% (BldA) [Mass fraction] 99 % Dr. Alo Avina Work Phone: 3(092)335-672610 [place] [address] 09-27-2022 14:05-0400 Systolic blood pressure 160 mm[Hg] Dr. Alo Avina Work Phone: [facility] 08-08-2022 08:39-0500 Body mass index (BMI) [Ratio] 30.8 kg/m2 Dr. Alo Avina Work Phone: [facility] 06-28-2022 08:08-0500 Diastolic blood pressure 78 mm[Hg] Keri Shay ACCREDITED FARM MANAGER.IMPREGNATOR Work Phone: [facility] 06-28-2022 08:08-0500 Systolic blood pressure 132 mm[Hg] Keri Day ACCREDITED FARM MANAGER.IMPREGNATOR Work Phone: [facility] 06-28-2022 07:47-0500 Body weight 88 kg Keri Day ACCREDITED FARM MANAGER.IMPREGNATOR Work Phone: [facility] 06-28-2022 07:47-0500 Heart rate 59 /min Keri Shay ACCREDITED FARM MANAGER.IMPREGNATOR Work Phone: [facility] 06-28-2022 07:47-0500 Respiratory rate 16 /min Keri Day ACCREDITED FARM MANAGER.IMPREGNATOR Work Phone: [facility] 06-07-2022 00:40-0500 Body mass index (BMI) [Ratio] 30.8 kg/m2 Dr. Alo Avina Work Phone: [facility] 05-30-2022 09:13-0500 Body weight 87.09 kg Alo Avina MD Work Phone: [facility] 05-30-2022 09:13-0500 Diastolic blood pressure 70 mm[Hg] Alo Avina MD Work Phone: [facility] 05-30-2022 09:13-0500 Heart rate 64 /min Alo Avina MD Work Phone: [facility] 05-30-2022 09:13-0500 Respiratory rate 16 /min Alo Avina MD Work Phone: [facility] 05-30-2022 09:13-0500 Systolic blood pressure 140 mm[Hg] Alo Avina MD Work Phone: [facility] 05-21-2022 12:31-0500 Body height 177.8 cm [facility] Cov[facility] Trans[facility] 05-21-2022 12:31-0500 Body mass index (BMI) [Ratio] 27.26 kg/m2 [facility] 05-21-2022 12:31-0500 Body temperature 97.59 [degF] [facility] 05-21-2022 12:31-0500 Body weight 86.18 kg [facility] 05-21-2022 12:31-0500 Diastolic blood pressure 66 mm[Hg] [facility] 05-21-2022 12:31-0500 Heart rate 58 /min [facility] Trans[facility] 05-21-2022 12:31-0500 Systolic blood pressure 142 mm[Hg] [facility] Trans[facility] 04-06-2022 22:03-0400 Body mass index (BMI) [Ratio] 30.8 kg/m2 [facility] Work Phone: 02-04-2022 02:52-0400 Body mass index (BMI) [Ratio] 30.8 kg/m2 [facility] Work Phone: 12-05-2021 21:09-0400 Body mass index (BMI) [Ratio] 30.8 kg/m2 [facility] Work Phone: 11-16-2021 09:12-0400 Body weight 88 kg Alo Avina MD Work Phone: [facility] 11-16-2021 09:12-0400 Diastolic blood pressure 68 mm[Hg] Alo Avina MD Work Phone: [facility] 11-16-2021 09:12-0400 Heart rate 60 /min Alo Avina MD Work Phone: [facility] 11-16-2021 09:12-0400 Respiratory rate 16 /min Alo Avina MD Work Phone: [facility] 11-16-2021 09:12-0400 Systolic blood pressure 116 mm[Hg] Alo Avina MD Work Phone: [facility] 11-05-2021 03:52-0400 Body mass index (BMI) [Ratio] 30.8 kg/m2 [facility] Work Phone: 10-06-2021 03:27-0400 Body mass index (BMI) [Ratio] 30.8 kg/m2 [facility] Work Phone: 09-05-2021 08:53-0500 Body mass index (BMI) [Ratio] 30.8 kg/m2 [facility] Work Phone: 08-08-2021 00:30-0500 Body mass index (BMI) [Ratio] 30.8 kg/m2 [facility] Work Phone: 07-09-2021 03:52-0500 Body mass index (BMI) [Ratio] 30.8 kg/m2 [facility] Work Phone: 04-08-2019 15:26-0400 BMI (Body Mass Index) 31.12 kg/m2 Flor Wong [facility] Work Phone: 04-08-2019 15:26-0400 Body weight 99.79 kg Flor Wong [facility] t her Work Phone: 04-08-2019 15:26-0400 BP Diastolic 70 mm[Hg] Flor Wong UT-Aslzfitapq-Dm t her Work Phone: Comment on above: Location: RUE; Position: Sitting 04-08-2019 15:26-0400 BP Systolic 134 mm[Hg] Flor Wong CJ-Wfvrujszfe-Co t her Work Phone: Comment on above: Location: RUE; Position: Sitting 04-08-2019 15:26-0400 BSA (Body Surface Area) 2.18 m2 Flor Wong CB-Mumlkmjkty-Klw her Work Phone: 04-08-2019 15:26-0400 Height 179.07 cm Flor Back BK-Ocbuhemlah-Lg t her Work Phone: 04-08-2019 15:26-0400 Pulse (Heart Rate) 73 /min Flor Back MG-Transplant -Mat her Work Phone: 04-08-2019 15:26-0400 Pulse Oximetry 95 % Flor Back WS-Spmntznpig-Cy t her Work Phone: 04-08-2019 15:26-0400 Respiratory Rate 18 /min Flor Collinsason FI-Yhrpudvxaa-L at her Work Phone: 04-08-2019 12:27-0400 BMI (Body Mass Index) 31.22 kg/m2 Flor Collinsason MG-Transpl ant-Mat her Work Phone: 04-08-2019 12:27-0400 Body Temperature 98.4 [degF] Flor Back VM-Ujomspfdrc-X at her Work Phone: Comment on above: Method: Oral 04-08-2019 12:27-0400 Body weight 100.11 kg Flor Back DY-Ybzabjgdyw-Nm t her Work Phone: 04-08-2019 12:27-0400 BP Diastolic 62 mm[Hg] Flor Back RN-Cqbmclqbek-Zu t her Work Phone: 04-08-2019 12:27-0400 BP Systolic 129 mm[Hg] Flor Collinsason DI-Qetwjaosjg-Ge t her Work Phone: 04-08-2019 12:27-0400 BSA (Body Surface Area) 2.19 m2 Flor Collinsason BM-Ygojworuoh-Oxu her Work Phone: 04-08-2019 12:27-0400 Height 179.07 cm Flor Back DK-Vdnumoldyx-Mo t her Work Phone: 04-08-2019 12:27-0400 Pulse (Heart Rate) 75 /min Flor Collinsason MG-Transplant -Mat her Work Phone: 04-08-2019 12:27-0400 Pulse Oximetry 96 % Flor Back WV-Xlcoiappyw-Ge ron her Work Phone: Comment on above: Source: 04-08-2019 12:270400 0 1 Flor Back MR-Sdgxjetulr-Mu t her Work Phone: Comment on above: Pain Scale Encounters Encounter Date Encounter Type Care Provider Facility Start: 04-07-2025 ambulatory Claribel Cioce Facility:[facility] Start: 03-17-2025 End: 03-17-2025 Chart abstracting Alo Avina MD Work Phone: [facility] Comment on above: Abstract ([employer] [facility]) Start: 02-19-2025 End: 02-19-2025 Telephone encounter Claribel C Cioce ACCREDITED FARM MANAGER.IMPREGNATOR Work Phone: Endocrinology Start: 01-29-2025 End: 02-02-2025 Telephone encounter Alo Avina MD Work Phone: [facility] Comment on above: Forms Start: 01-20-2025 End: 01-20-2025 Chart abstracting Alo Avina MD Work Phone: [facility] Comment on above: Abstract (Ophthalmol ogy OV) Start: 01-09-2025 End: 01-11-2025 Refill Claribel C Cioce ACCREDITED FARM MANAGER.IMPREGNATOR Work Phone: Endocrinology Comment on above: Refill Request Start: 12-11-2024 End: 12-11-2024 Chart abstracting Alo Avina MD Work Phone: [facility] Comment on above: Outside Ophthalmolog y Start: 11-23-2024 ambulatory [facility] acility:[facility] Start: 11-20-2024 End: 11-20-2024 Refill Alo Avina MD Work Phone: [facility] Comment on above: Refill Request Start: 11-06-2024 End: 11-06-2024 Chart abstracting Alo Avina MD Work Phone: [facility] Start: 11-06-2024 End: 11-06-2024 Ophthalmic examination and evaluation Alo Avina MD Work Phone: [facility] Start: 10-28-2024 End: 10-28-2024 Patient encounter procedure Claribel Mejía Anatoliy ACCREDITED FARM MANAGER.IMPREGNATOR Work Phone: Endocrinology Comment on above: Diabetes mellitus tr eated with insulin (HCC) (Primary Dx) Start: 10-28-2024 End: 10-28-2024 ambulatory ALO AVINA Facility:[facility] Start: 10-27-2024 End: 10-27-2024 Chart abstracting Alo Avina MD Work Phone: [facility] Comment on above: Outside Ophthalmolog y Start: 10-23-2024 End: 10-23-2024 Refill Alo Avina MD Work Phone: [facility] Comment on above: Refill Request Start: 10-19-2024 End: 10-19-[address] Alo Avina MD Work Phone: [facility] Work Phone: Start: 10-19-2024 End: 10-19-[address] Alo Avina MD Work Phone: -Laboratory Work Phone: Start: 10-19-2024 End: 10-19-2024 ambulatory [facility] Facility:[facility] Start: 09-24-2024 End: 09-24-2024 ambulatory Rosio Servin RN Work Phone: [employer] Comment on above: Initial enrollment o ana maria for Chronic Disease Management Start: 09-14-2024 End: 09-14-2024 Chart abstracting Katrina Mace MA [facility] Comment on above: Consult Start: 09-10-2024 End: 09-10-2024 ambulatory Maria Luisa Barnett MA [facility] [address] [place] Start: 09-10-2024 End: 09-10-2024 Patient encounter procedure Maria Luisa Barnett MA [facility] Comment on above: Population Health Na vigation Outreach ([employer] High Risk Attempt #1) Start: 08-28-2024 End: 08-28-2024 Telephone encounter Alo Avina MD Work Phone: [facility] Comment on above: [employer] [address] Start: 07-16-2024 End: 07-16-2024 Chart abstracting Alo Avina MD Work Phone: [facility] Comment on above: Outside Ltje-Hbs-CSW Ordered Start: 07-13-2024 End: 07-13-2024 Chart abstracting Alo Avina MD Work Phone: [facility] Comment on above: Outside Pvyy-Yqn-NCT Ordered Results, Lab Start: 07-13-2024 End: 07-13-[address] Alo Avina MD Work Phone: -Laboratory Work Phone: Start: 07-13-2024 End: 07-13-2024 ambulatory [facility] Facility:[facility] Start: 07-11-2024 End: 07-13-2024 Telephone encounter Alo Avina MD Work Phone: [facility] Comment on above: Consult Start: 06-26-2024 End: 06-27-2024 Telephone encounter Katrina Mace MA [facility] Comment on above: Results Start: 06-24-2024 End: 06-24-[address] 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, with long-term current use of insulin (HCC); 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, with long-term current use of insulin (HCC); Diabetes mellitus type 2 with neurological manifestations (HCC); Diabetic eye exam (HCC); Essential hypertension, benign; Hyperlipidemia, mixed; 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); 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; Essential tremor; Restless leg syndrome; Vitamin D deficiency; Benign prostatic hyperplasia with nocturia; Advance directive discussed with patient; Prostate disorder; Diabetic foot (HCC) Start: 06-17-2024 End: 06-17-2024 Chart abstracting Katrina Mace MA [facility] Comment on above: Results (Outside lab s /) Start: 06-16-2024 End: 06-16-2024 ambulatory [facility] Facility:[facility] Start: 06-15-2024 End: 06-15-2024 Telephone encounter Claribel Cope APRN.IMPREGNATOR Work Phone: Endocrinology Comment on above: Patient Update (Khushbu na non formulary notice ) Start: 06-05-2024 End: 06-05-2024 Telephone encounter Alo Avina MD Work Phone: [facility] Comment on above: Patient Request Refill Request Start: 05-20-2024 End: 05-20-2024 Chart abstracting Alo Avina MD Work Phone: [facility] Comment on above: Outside Ophthalmolog y Start: 04-29-2024 End: 04-29-2024 Patient encounter procedure Claribel Cope APRN.IMPREGNATOR Work Phone: Endocrinology Comment on above: Diabetes mellitus tr eated with insulin (HCC) (Primary Dx) Start: 04-25-2024 End: 04-27-2024 Refill [place] [address] Comment on above: Refill Request Start: 04-21-2024 End: 04-21-2024 Chart abstracting Katrina Mace MA [facility] Comment on above: Results (Outside lab s /) Start: 04-20-2024 End: 04-20-2024 ambulatory Judd Dey Facility:[facility] Start: 04-10-2024 End: 04-10-2024 Telephone encounter Alo Avina MD Work Phone: [facility] Comment on above: Orders Start: 03-24-2024 End: 03-24-2024 Chart abstracting Alo Avina MD Work Phone: [facility] Comment on above: Outside Ophthalmolog y Start: 03-02-2024 End: 03-02-2024 Refill Alo Avina MD Work Phone: [facility] Comment on above: Refill Request Start: 01-20-2024 End: 01-20-2024 Patient encounter procedure Crystal Nation PA-C Work Phone: [facility] Comment on above: Essential hypertensi on, benign (Primary Dx) Start: 01-08-2024 Telephone encounter Crystal choi PA-C Work Phone: [facility] Comment on above: Patient Update Start: 12-18-2023 End: 12-18-2023 Patient encounter procedure Crystal Nation PA-C Work Phone: [facility] Comment on above: Essential hypertensi on, benign (Primary Dx); Hyperlipidemia, mixed; Diabetes mellitus type 2 with neurological manifestations (HCC); 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 disease, with long-term current use of insulin (HCC); Renal transplant recipient; 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; 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); Benign prostatic hyperplasia, unspecified whether lower urinary tract symptoms present Start: 12-11-2023 Telephone encounter Claribel lainez ACCREDITED FARM MANAGER.IMPREGNATOR Work Phone: Endocrinology Comment on above: Results Start: 12-11-2023 End: 12-11-2023 Patient encounter procedure Claribel Cope ACCREDITED FARM MANAGER.IMPREGNATOR Work Phone: Endocrinology Comment on above: Diabetes mellitus tr eated with insulin (HCC) (Primary Dx) Start: 12-05-2023 Chart abstracting Alo schneider MD Work Phone: [facility] Comment on above: Outside Vwti-Yqt-LQD Ordered Start: 11-25-2023 Telephone encounter Claribel lainez ACCREDITED FARM MANAGER.IMPREGNATOR Work Phone: Endocrinology Comment on above: Orders (Labs to be d rawn at [facility] lab) Start: 11-22-2023 End: 12-18-2023 Office outpatient visit 25 minutes Jim Squires PACO Work Phone: [facility] Comment on above: Immunosuppressed sta tus (Primary Dx); Kidney replaced by transplant; High risk medication use; Aftercare following organ transplant; Hypertension secondary to other renal disorders Start: 11-22-2023 ambulatory JIM Nyida SHAW Facility:[facility] Start: 11-11-2023 Chart abstracting Alo schneider MD Work Phone: [facility] Comment on above: Outside Qooy-Kzl-TIO Ordered Start: 11-07-2023 Chart abstracting Alo schneider MD Work Phone: [facility] Comment on above: ext document (Labs) Start: 11-06-2023 Refill Alo dobbins MD Work Phone: [facility] Comment on above: Refill Request Start: 10-30-2023 Telephone encounter Claribel lainez ACCREDITED FARM MANAGER.IMPREGNATOR Work Phone: Endocrinology Comment on above: Orders (Formulary ch poncho for insulin) Start: 10-23-2023 Chart abstracting Katrina Mace MA [facility] [place] Comment on above: Consult (Opthalmolog y /) Start: 10-14-2023 Chart abstracting Alo schneider MD Work Phone: [facility] Comment on above: External / Eye exam Start: 09-23-2023 Refill Alo dobbins MD Work Phone: [facility] Comment on above: Refill Request Start: 09-18-2023 Refill Claribel Mejía Anatoliy ACCREDITED FARM MANAGER.IMPREGNATOR Work Phone: Endocrinology Comment on above: Refill Request Start: 09-13-2023 Chart abstracting Alo schneider MD Work Phone: [facility] Comment on above: Outside Pedm-Sqk-SWS Ordered Start: 09-13-2023 End: 09-13-2023 ambulatory [facility] Work Phone: Start: 09-13-2023 End: 09-13-2023 Patient encounter procedure [facility] Work Phone: Start: 08-28-2023 Chart abstracting Alo schneider MD Work Phone: [facility] Comment on above: Outside Ophthalmolog y Start: 08-14-2023 End: 09-05-2023 ambulatory [facility] Work Phone: Start: 08-14-2023 End: 09-05-2023 Discharged Recurring [facility]Laboratory Work Phone: Start: 06-18-2023 Patient encounter procedure Alo Avina MD Work Phone: [facility] Work Phone: Start: 06-13-2023 Ophthalmic examinati on and evaluation Alo Avina MD Work Phone: [facility] Start: 05-21-2023 Chart abstracting Alo schneider MD Work Phone: [facility] Comment on above: Outside Gpci-Rgy-SSL Ordered Start: 05-16-2023 End: 06-06-2023 ambulatory [facility] Work Phone: Start: 05-16-2023 End: 06-06-2023 Discharged Recurring [facility]-Labor[facility] Work Phone: Start: 05-08-2023 Refill Alo dobbins MD Work Phone: [facility] Comment on above: Refill Request Start: 04-01-2023 Home visit Alo dobbins MD Work Phone: [facility] Comment on above: Aftercare for amputa tion stump (Primary Dx) Start: 03-25-2023 Refill Alo dobbins MD Work Phone: [facility] Comment on above: Refill Request Start: 03-13-2023 End: 03-13-2023 Patient encounter procedure Claribel Chaparrooce ACCREDITED FARM MANAGER.IMPREGNATOR Work Phone: Endocrinology Comment on above: Type II diabetes yesica litus with manifestations (HCC) (Primary Dx) Start: 03-12-2023 Telephone encounter Alo Avina MD Work Phone: [facility] Comment on above: Patient Update Orders Start: 03-07-2023 Telephone encounter Alo Avina MD Work Phone: [facility] Comment on above: Home Health update Start: 02-25-2023 Telephone encounter Alo Avina MD Work Phone: [facility] Comment on above: Referral Request Start: 02-13-2023 Chart abstracting Alo schneider MD Work Phone: [facility] Comment on above: Results, Lab Start: 02-06-2023 End: 02-06-[address] Alo Avina Work Phone: [facility] Work Phone: Start: 02-06-2023 End: 02-06-[address] Alo Avina Work Phone: [facility]Laboratory Work Phone: Start: 02-05-2023 Telephone encounter Alo Avina MD Work Phone: [facility] Comment on above: Orders Start: 01-28-2023 Chart abstracting Alo schneider MD Work Phone: [facility] Comment on above: Results Start: 01-24-2023 Home visit Alo dobbins MD Work Phone: [facility] Comment on above: Encounter for change or removal of surgical wound dressing (Primary Dx) Start: 01-09-2023 Telephone encounter Claribel lainez ACCREDITED FARM MANAGER.IMPREGNATOR Work Phone: Endocrinology Comment on above: Blood Sugar Readings Start: 01-07-2023 Telephone encounter Alo Avina MD Work Phone: [facility] Comment on above: Orders Start: 01-07-2023 Non-patient / Non-visit Dr. Mehrdad Avina Work Phone: [facility] Work Phone: Start: 01-06-2023 Non-patient / Non-visit Dr. Mehrdad Avina Work Phone: [facility] Work Phone: Start: 01-05-2023 Non-patient / Non-visit Dr. Mehrdad Avina Work Phone: [facility] Work Phone: Start: 01-04-2023 Non-patient / Non-visit Dr. Mehrdad Avina Work Phone: [facility] Work Phone: Start: 01-04-2023 End: 01-04-2023 Non-patient / Non-visit Dr. Alo Avina Work Phone: [facility] Work Phone: Start: 01-03-2023 Non-patient / Non-visit Dr. Mehrdad Avina Work Phone: [facility] Work Phone: Start: 01-03-2023 End: 01-07-2023 Evaluation and management of inpatient Dr. Alo Avina Work Phone: [facility]-Medical Surgical 3 Work Phone: Start: 01-03-2023 End: 01-03-[address] Alo Avina Work Phone: [facility] Work Phone: Start: 12-26-2022 End: 12-26-2022 Nursing evaluation of patient and report Ishaan Fortune RN Work Phone: Endocrinology Comment on above: Type 2 diabetes bianca itus with stage 2 chronic kidney disease, with long-term current use of insulin (HCC) (Primary Dx) Start: 12-26-2022 End: 12-26-2022 Patient encounter procedure Claribel Cope APRN.IMPREGNATOR Work Phone: Endocrinology Comment on above: Type II diabetes yesica litus with manifestations (HCC) (Primary Dx); 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 disease, with long-term current use of insulin (HCC); 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, with long-term current use of insulin (HCC); 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, with long-term current use of insulin (HCC); Diabetes mellitus type 2 with neurological manifestations (HCC) Start: 12-25-2022 Refill Alo dobbins MD Work Phone: [facility] Comment on above: Refill Request Start: 12-24-2022 Telephone encounter Katrina Mace MA [facility] Comment on above: Patient Update Start: 12-06-2022 End: 12-06-2022 Ophthalmic examination and evaluation Alo Avina MD Work Phone: [facility] Start: 12-06-2022 End: 12-06-2022 Patient encounter procedure Alo Avina MD Work Phone: [facility] Comment on above: Type 2 diabetes bianca itus with stage 2 chronic kidney disease, with long-term current use of insulin (HCC) (Primary Dx); 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, with long-term current use of insulin (HCC); 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 Alo Avina Work Phone: [facility] Work Phone: Start: 11-28-2022 End: 11-28-[address] Alo Avina Work Phone: [facility]-Laboratory Start: 11-19-2022 Telephone encounter Alo Avina MD Work Phone: [facility] Comment on above: Orders Start: 11-07-2022 End: 11-07-[address] Alo Avina Work Phone: [facility] Work Phone: Start: 11-07-2022 End: 11-07-[address] Alo Avina Work Phone: [facility]-Laboratory Start: 11-07-[address] Keila Avina Work Phone: [facility] Start: 11-05-2022 Telephone encounter Alo Avina MD Work Phone: [facility] Comment on above: Allergies Start: 11-02-2022 Chart abstracting Alo schneider MD Work Phone: [facility] Comment on above: Colonoscopy Report Start: 11-02-2022 Non-patient / Non-visit Dr. Mehrdad Avina Work Phone: [facility] Start: 11-02-2022 End: 11-02-2022 Admission to same day surgery center Dr. Alo Avina Work Phone: [facility]-Endoscopy Start: 11-02-2022 End: 11-02-[address] Alo Avina Work Phone: [facility] Work Phone: Start: 10-01-2022 Refill Alo dobbins MD Work Phone: [facility] Comment on above: Refill Request Referral Request Start: 09-28-2022 Chart abstracting Alo schneider MD Work Phone: [facility] Comment on above: Consult (General Rimma shannon ) Start: 09-27-2022 End: 09-27-[address] Alo Avina Work Phone: [facility] Start: 09-26-2022 Telephone encounter Alo Avina MD Work Phone: [facility] Comment on above: Rx refill; not on cu rrent med list Start: 09-11-2022 Chart abstracting Alo schneider MD Work Phone: [facility] Comment on above: Outside Labs Results Start: 09-05-2022 End: 10-05-[address] Alo Avina Work Phone: [facility] Work Phone: Start: 09-05-2022 End: 10-05-[address] Alo Avina Work Phone: [facility]-Laboratory Start: 08-06-2022 ambulatory Yen Huang [facility] [place] Comment on above: Population Health Na vigation Outreach ([employer] care gaps) Start: 07-18-2022 End: 07-18-[address] Alo Avina Work Phone: [facility]Laboratory Start: 06-28-2022 End: 06-28-2022 Patient encounter procedure Keri Day APRN.CNP Work Phone: [facility] Comment on above: Primary hypertension (Primary Dx) Start: 05-30-2022 End: 05-30-2022 Ophthalmic examination and evaluation Alo Avina MD Work Phone: [facility] Start: 05-30-2022 End: 05-30-2022 Patient encounter procedure Alo Avina MD Work Phone: [facility] Comment on above: Diabetes mellitus ty pe 2 with neurological manifestations (HCC) (Primary Dx); 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 disease, with long-term current use of insulin (HCC); 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, with long-term current use of insulin (HCC); 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, with long-term current use of insulin (HCC); 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); Diabetic eye exam (HCC); Essential hypertension, benign; Hyperlipidemia, mixed; Renal transplant recipient; 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; Vitamin D deficiency; Restless leg syndrome; Essential tremor Start: 05-21-2022 End: 05-21-2022 Clinical Support Encounter Sharda Lemons MD Work Phone: [facility] Comment on above: At increased risk of exposure to COVID-19 virus (Primary Dx) Start: 05-16-2022 End: 06-06-2022 [facility] Work Phone: Start: 05-16-2022 End: 06-06-2022 Discharged Recurring [facility] Start: 05-14-2022 Refill Alo dobbins MD Work Phone: [facility] Comment on above: Refill Request Start: 04-20-2022 ambulatory Margie Batista MA [facility] [place] Comment on above: Population Health Na vigation Outreach ([employer] Care Gaps ) Start: 04-11-2022 Refill Alo dobbins MD Work Phone: [facility] Comment on above: Refill Request Start: 03-09-2022 End: 03-09-2022 [facility] Work Phone: Start: 03-09-2022 End: 03-09-2022 Discharged Recurring [facility] Start: 03-05-2022 ambulatory Hortencia Davenport MA [facility] Comment on above: Population Health [facility] ([employer] Medicare/) Start: 02-06-2022 Refill Alo dobbins MD Work Phone: [facility] Comment on above: Refill Request Start: 01-10-2022 End: 02-04-2022 Discharged Recurring [facility] Start: 12-21-2021 Telephone encounter Alo Avina MD Work Phone: [facility] Comment on above: Medication Request Start: 11-17-2021 End: 11-17-2021 ambulatory [facility] Prep Covid Mab Transplant [facility] Comment on above: At increased risk of exposure to COVID-19 virus (Primary Dx) Start: 11-16-2021 End: 11-16-2021 Ophthalmic examination and evaluation Alo Avina MD Work Phone: [facility] Start: 11-16-2021 End: 11-16-2021 Patient encounter procedure Alo Avina MD Work Phone: [facility] Comment on above: Medicare annual well ness visit, subsequent (Primary Dx); 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, with long-term current use of insulin (HCC); 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, with long-term current use of insulin (HCC); 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 disease, with long-term current use of insulin (HCC); Diabetes mellitus type 2 with neurological manifestations (HCC); 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); Essential hypertension, benign; Hyperlipidemia, mixed; 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; Vitamin D deficiency; Restless leg syndrome; Essential tremor; Living will in place; Advance directive discussed with patient; Diabetic eye exam (HCC); Tear of right rotator cuff, unspecified tear extent, unspecified whether traumatic Start: 11-08-2021 End: 11-08-2021 Discharged Recurring [facility] Start: 11-06-2021 Telephone encounter Alo Avina MD Work Phone: [facility] Comment on above: Orders Start: 10-12-2021 Refill Alo dobbins MD Work Phone: [facility] Comment on above: Refill Request Start: 10-11-2021 End: 10-11-2021 Discharged Recurring [facility] Start: 10-09-2021 Ophthalmic examinati on and evaluation Alo Avina MD Work Phone: [facility] Start: 09-26-2021 Refill Alo dobbins MD Work Phone: [facility] Comment on above: Refill Request Start: 09-06-2021 End: 10-05-2021 Discharged Recurring [facility] Start: 08-09-2021 End: 08-09-2021 Discharged Recurring [facility] Start: 07-11-2021 End: 08-07-2021 Discharged Recurring [facility] Start: 04-28-2019 Patient encounter status [facility] Start: 04-08-2019 Patient encounter procedure Aaron Rowleyira MZ-Pemonefdhd-AWT [place] Sharonda Work Phone: Start: 04-08-2019 Patient encounter procedure Flor Back LL-Kwsgvuphut-Wyfves Work Phone: Start: 02-25-2019 Patient encounter procedure Flor Back FM-Dyubpjuhlv-Qbgify Work Phone: Start: 02-17-2019 End: 02-17-2019 Telephone encounter [facility] Comment on above: Patient Education Start: 02-10-2019 End: 02-10-2019 Chart abstracting [facility] Start: 02-10-2019 End: 02-10-2019 Telephone encounter [facility] Comment on above: Appointment Start: 02-07-2019 Notes/Results Only Other Other NOTE S/RESULTS Start: 02-07-2019 End: 02-07-2019 Patient encounter procedure Other Other [facility] Start: 10-24-2017 Patient encounter procedure Clair Nation KY-Fjddelbxzs-Mbfene Work Phone: Start: 10-03-2017 Patient encounter procedure Clair Nation VL-Aardcyborr-Wzaqqu Work Phone: Start: 08-23-2017 Admission to day surgery Clair riley RC-Tqpuwsbvpb-Tnjere Work Phone: Start: 08-23-2017 Patient encounter procedure Clair Nation WE-Xxywgeymhp-Phjuur Work Phone: Start: 08-23-2017 Patient encounter procedure Clair Nation PJ-Khkebkirdt-Jtfvog Work Phone: Start: 08-23-2017 Patient encounter procedure Clair Nation FM-Jnpowcftzj-Vkpfuv Work Phone: Procedures Date Procedure Procedure Detail Performing Clinician Start: 06-16-2024 Comprehensive metabolic 2000 panel - Serum or Plasma [facility] Provider Start: 06-16-2024 Hemoglobin A1c/Hemoglobin.total in Blood [facility] Provider Start: 06-16-2024 Lipid panel [facility] Provider Start: 06-16-2024 MICROALBUMIN/CREATININE UR W RATIO (EXTERNAL) [facility] Provider Start: 01-20-2024 Adult depression screening assessment Alo Avina MD Work Phone: Start: 01-06-2023 Plain chest X-ray Dr. Alo Avina Work Phone: Start: 01-04-2023 X-ray of both feet Dr. Alo Avina Work Phone: Start: 01-04-2023 Acid fast bacilli culture Dr. Alo schneider Work Phone: Start: 01-04-2023 Cytopathology procedure, preparation of smear, genital source Dr. Alo Avina Work Phone: Start: 01-04-[address] Alo Avina Work Phone: Start: 01-04-2023 Investigation of transfusion reaction Dr. Alo Avina Work Phone: Start: 01-04-2023 Microbial culture, routine Dr. Alo lentz Work Phone: Start: 01-04-[address] Alo Avina Work Phone: Start: 01-04-[address] Alo Avina Work Phone: Start: 01-04-[address] Alo Avina Work Phone: Start: 01-04-[address] Alo Avina Work Phone: Start: 01-03-2023 Bacteria identified in Blood by Culture Dr. Alo Avina Work Phone: Start: 01-03-[address] Alo Avina Work Phone: Start: 01-03-[address] Alo Avina Work Phone: Start: 01-03-2023 MRI of lower extremity Dr. Alo fowler Work Phone: Start: 01-03-2023 X-ray of both feet Dr. Alo Avina Work Phone: Start: 01-03-2023 Plain chest X-ray Dr. Alo Avina Work Phone: Start: 11-28-2022 CBC W/DIFF/PLT (EXTERNAL LAB FE) [facility] Provider Start: 11-28-2022 Comprehensive metabolic 2000 panel - Serum or Plasma [facility] Provider Start: 11-28-2022 Lipid panel [facility] Provider Start: 11-28-2022 MICROALBUMIN/CREATININE UR W RATIO (EXTERNAL) [facility] Provider Start: 11-28-2022 PSA screening [facility] Provider Start: 11-28-2022 VITAMIN D (OUTSIDE) [facility] Provider Start: 11-02-2022 End: 11-02-[address] Alo Avina Work Phone: Start: 05-16-2022 Hemoglobin A1c/Hemoglobin.total in Blood [facility] Provider Start: 11-16-2021 Adult depression screening assessment Alo Avina MD Work Phone: Start: 11-07-2020 Adult depression screening assessment Alo Avina MD Work Phone: Start: 11-23-2019 History of renal transplant Renal transplant recipient Alo Avina MD Work Phone: Start: 10-22-2019 History of renal transplant Kidney replaced by donor transplant 10/22/2019 [facility] Prep Covid Mab Transplant [facility] Start: 04-11-2019 Follow-up visit Start: 04-08-2019 End: [...] Chest 2 View PA + Lateral Clair Rios Start: 09-30-2017 Colonoscopy Alo Avina MD Work Phone: History of renal transplant Ara l transplant recipient Alo Avina MD Work Phone: History of renal transplant Ara l transplant recipient Alo Avina MD Work Phone: History of renal transplant Kidn ey replaced by transplant Jim ANTONIO Work Phone: History of renal transplant Ara l transplant recipient Crystal Nation PA-C Work Phone: History of Transuret hral Resection Of Prostate (TURP) Clairlakeshia Nation History of Wrist Surgery Hieu Nation Plan of Treatment Date Care Activity Detail Author Start: 11-29-2027 PROSTATE CANCER SCREENING DISCUSSION PROSTATE CANCER SCREENING DISCUSSION [facility] Start: 11-29-2027 Prostate specific antigen measurement Prostate Cancer Screening Discussion [facility] Start: 11-03-2027 Colonoscopy COLONOSCOPY [facility] Start: 11-03-2027 COLORECTAL CANCER SCREENING COLORECTAL CANCER SCREENING [facility] Start: 11-03-2027 Screening for malign ant neoplasm of colon [facility] Start: 01-24-2026 Tetanus vaccination TETANUS [facility] Start: 01-24-2026 Urine microalbumin profile [facility] Start: 01-18-2026 Glaucoma screening Dilated Retinal E xam [facility] Start: 11-06-2025 Glaucoma screening Dilated Retinal E xam [facility] Start: 10-26-2025 Glaucoma screening Dilated Retinal E xam [facility] Start: 06-23-2025 Annual PCP Team Wage And Salary Specialist noe Disease Visit Annual PCP Team Chronic Disease Visit [facility] Start: 06-23-2025 BP Controlled (<130/80) BP Controlle d (<130/80) [facility] Start: 06-23-2025 End: 06-23-2025 Patient encounter procedure [facility] Comment on above: Medicare wellness 8 MTH F/U DIABETES Start: 06-16-2025 Hepatitis B surface antibody level LDL Cholesterol [facility] Start: 04-07-2025 End: 07-07-2025 Comprehensive metabolic 2000 panel - Serum or Plasma COMPREHENSIVE METABOLIC PANEL Lab Routine Diabetes mellitus treated with insulin (HCC) Expected: 04/07/2025, Expires: 07/07/2025 [facility] Work Phone: Comment on above: Expected: 04/07/2025 , Expires: 07/07/2025 Start: 04-07-2025 End: 07-07-2025 Hemoglobin A1c in Blood HEMOGLOBIN A1C Lab Routine Diabetes mellitus treated with insulin (HCC) Expected: 04/07/2025, Expires: 07/07/2025 [facility] Comment on above: Expected: 04/07/2025 , Expires: 07/07/2025 Start: 04-07-2025 End: 07-07-2025 LIPID PANEL, NONFASTING LIPID PANEL, NONFASTING Lab Routine Diabetes mellitus treated with insulin (HCC) Expected: 04/07/2025, Expires: 07/07/2025 [facility] Comment on above: Expected: 04/07/2025 , Expires: 07/07/2025 Start: 04-07-2025 End: 07-07-2025 Microalbumin/Creatinine [Mass Ratio] in Urine ALBUMIN/CREATININE RATIO, URINE Lab Routine Diabetes mellitus treated with insulin (HCC) Expected: 04/07/2025, Expires: 07/07/2025 [facility] Comment on above: Expected: 04/07/2025 , Expires: 07/07/2025 Start: 03-17-2025 Glaucoma screening Dilated Retinal E xam [facility] Start: 03-08-2025 Influenza vaccination Influenza Vacc ine (#1) [facility] Start: 01-19-2025 Annual PCP Team Wage And Salary Specialist noe Disease Visit Annual PCP Team Chronic Disease Visit [facility] Start: 01-19-2025 Anxiety Screening Anxiety Screening [facility] Start: 01-19-2025 Depression Screening Depression Scre ening [facility] Start: 12-17-2024 Annual PCP Team Wage And Salary Specialist noe Disease Visit Annual PCP Team Chronic Disease Visit [facility] Start: 12-15-2024 Hemoglobin A1c measurement HbA1C [facility] Start: 11-06-2024 Complete blood count Hemoglobin/Ryder tocrit [facility] Start: 11-06-2024 Creatinine measurement Serum Creatin ine [facility] Start: 10-28-2024 End: 10-28-2024 Patient encounter procedure 10/28/2024 8:45 AM EDT Office Visit Endocrinology [address] [place] [address] Claribel Cope, ACCREDITED FARM MANAGER.IMPREGNATOR [address] [place] [address] 6 MTH F/U Endocrinology Comment on above: 6 MTH F/U Start: 10-06-2024 End: 01-05-2025 Comprehensive metabolic 2000 panel - Serum or Plasma COMPREHENSIVE METABOLIC PANEL Lab Routine Diabetes mellitus treated with insulin (HCC) Expected: 10/06/2024, Expires: 01/05/2025 [facility] Work Phone: Comment on above: Expected: 10/06/2024 , Expires: 01/05/2025 Start: 10-06-2024 Glaucoma screening Dilated Retinal E xam [facility] Start: 10-06-2024 End: 01-05-2025 Hemoglobin A1c in Blood HEMOGLOBIN A1C Lab Routine Diabetes mellitus treated with insulin (HCC) Expected: 10/06/2024, Expires: 01/05/2025 [facility] Comment on above: Expected: 10/06/2024 , Expires: 01/05/2025 Start: 10-06-2024 End: 01-05-2025 LIPID PANEL, NONFASTING LIPID PANEL, NONFASTING Lab Routine Diabetes mellitus treated with insulin (HCC) Expected: 10/06/2024, Expires: 01/05/2025 [facility] Comment on above: Expected: 10/06/2024 , Expires: 01/05/2025 Start: 10-06-2024 End: 01-05-2025 Microalbumin/Creatinine [Mass Ratio] in Urine ALBUMIN/CREATININE RATIO, URINE Lab Routine Diabetes mellitus treated with insulin (HCC) Expected: 10/06/2024, Expires: 01/05/2025 [facility] Comment on above: Expected: 10/06/2024 , Expires: 01/05/2025 Start: 09-27-2024 Covid-19 Vaccine (9 - Pfizer risk ) Covid-19 Vaccine (9 - Pfizer risk ) [facility] Start: 08-19-2024 Glaucoma screening Dilated Retinal E xam [facility] Start: 07-08-2024 Advance Directive Discussion Advance Directive Discussion [facility] Start: 07-08-2024 Medicare Advantage Annual Wellness Visit Medicare Advantage Annual Wellness Visit [facility] Start: 06-23-2024 End: 09-22-2024 25-hydroxyvitamin D3 [Mass/volume] in Serum or Plasma VITAMIN D 25 HYDROXY Lab Routine Vitamin D deficiency Expected: 06/23/2024, Expires: 09/22/2024 [facility] Comment on above: Expected: 06/23/2024 , Expires: 09/22/2024 Start: 06-23-2024 End: 09-22-2024 CBC W Auto Differential panel - Blood COMPLETE BLOOD COUNT AND DIFFERENTIAL Lab Routine 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 disease, with long-term current use of insulin (HCC) 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, 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, with long-term current use of insulin (HCC) 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 Expected: 06/23/2024, Expires: 09/22/2024 [facility] Comment on above: Expected: 06/23/2024 , Expires: 09/22/2024 Start: 06-23-2024 End: 09-22-2024 Prostate specific Ag [Mass/volume] in Serum or Plasma PROSTATE-SPECIFIC ANTIGEN DIAGNOSTIC Lab Routine Prostate disorder Expected: 06/23/2024, Expires: 09/22/2024 [facility] Work Phone: Comment on above: Expected: 06/23/2024 , Expires: 09/22/2024 Start: 06-23-2024 End: 06-23-2024 Patient encounter procedure 06/23/2024 8:00 AM EST Office Visit Family Medicine [facility] [address] [place], [place] [id number] Alo Avina MD [address] [place], [place] [id number] Medicare Wellness [facility] [place] Comment on above: Medicare Wellness Start: 06-19-2024 BP Controlled (<130/80) BP Controlle d (<130/80) [facility] Start: 06-18-2024 Annual PCP Team Wage And Salary Specialist noe Disease Visit Annual PCP Team Chronic Disease Visit [facility] Start: 06-18-2024 Diabetic foot examination Diabetic Foot Exam [facility] Start: 06-17-2024 End: 06-17-2024 Patient encounter procedure 06/17/2024 9:15 AM EST Office Visit Endocrinology [address] [place], [place] [address] Claribel Cope APRN.IMPREGNATOR [address] [place] [address] 6 MTH F/U Endocrinology Comment on above: 6 MTH F/U Start: 06-10-2024 PROSTATE CANCER SCREENING DISCUSSION PROSTATE CANCER SCREENING DISCUSSION [facility] Start: 06-07-2024 End: 09-06-2024 Comprehensive metabolic 2000 panel - Serum or Plasma COMPREHENSIVE METABOLIC PANEL Lab Routine Diabetes mellitus treated with insulin (HCC) Expected: 06/07/2024, Expires: 09/06/2024 [facility] Work Phone: Comment on above: Expected: 06/07/2024 , Expires: 09/06/2024 Start: 06-07-2024 End: 09-06-2024 Hemoglobin A1c in Blood HEMOGLOBIN A1C Lab Routine Diabetes mellitus treated with insulin (HCC) Expected: 06/07/2024, Expires: 09/06/2024 [facility] Comment on above: Expected: 06/07/2024 , Expires: 09/06/2024 Start: 06-07-2024 End: 09-06-2024 LIPID PANEL, NONFASTING LIPID PANEL, NONFASTING Lab Routine Diabetes mellitus treated with insulin (HCC) Expected: 06/07/2024, Expires: 09/06/2024 [facility] Comment on above: Expected: 06/07/2024 , Expires: 09/06/2024 Start: 06-07-2024 End: 09-06-2024 Microalbumin/Creatinine [Mass Ratio] in Urine ALBUMIN/CREATININE RATIO, URINE Lab Routine Diabetes mellitus treated with insulin ([facility]) Expected: 06/07/2024, Expires: 09/06/2024 [facility] Comment on above: Expected: 06/07/2024 , Expires: 09/06/2024 Start: 05-25-2024 Covid-19 Vaccine ( season) Covid-19 Vaccine () [facility] Start: 05-16-2024 Creatinine measurement Serum Creatin ine [facility] Start: 03-13-2024 BP CONTROLLED (<130/80) BP CONTROLLE D (<130/80) [facility] Start: 03-08-2024 Covid-19 Vaccine ( season) Covid-19 Vaccine () [facility] Start: 03-08-2024 Covid-19 Vaccine ( season) Covid-19 Vaccine () [facility] Start: 03-08-2024 Influenza vaccination Influenza Vacc ine (#1) [facility] Start: 03-05-2024 Hemoglobin A1c measurement HbA1C [facility] Start: 02-26-2024 Hepatitis C antibody , confirmatory test DILATED RETINAL EXAM [facility] Start: 01-20-2024 End: 01-20-2024 Patient encounter procedure 01/20/2024 7:20 AM EDT Office Visit Family Medicine [facility] [address] [facility] [place] [address] Crystal Nation PA-C [address] [place] [address] BP follow up Family Wilmer Clark Comment on above: BP follow up Start: 12-27-2023 BP CONTROLLED (<130/80) BP CONTROLLE D (<130/80) [facility] Start: 12-18-2023 End: 12-18-2023 Patient encounter procedure 12/18/2023 7:00 AM EDT Office Visit [facility] Wilmer Clark [address] [place] [address] Crystal Nation PA-C [address] [place], [place] [id number] 6 month follow up Family Wilmer Clark Comment on above: 6 month follow up Start: 12-11-2023 End: 12-11-2023 Patient encounter procedure 12/11/2023 9:15 AM EDT Office Visit Endocrinology [address] [place] [address] Claribel Cope, DEMAR.IMPREGNATOR [address] [place] [address] Follow up Endocrinology Comment on above: Follow up Start: 12-07-2023 ANNUAL PCP TEAM MEDICARE SALES REPRESENTATIVE NOE DISEASE VISIT ANNUAL PCP TEAM CHRONIC DISEASE VISIT [facility] Start: 11-29-2023 Hepatitis B surface antibody level LDL CHOLESTEROL [facility] Start: 11-14-2023 Hemoglobin A1c measurement HBA1C TEST [facility] Start: 09-06-2023 End: 11-06-2023 ALBUMIN/CREAT RATIO RND UR ALBUMIN/CREAT RATIO RND UR Lab Routine Type II diabetes mellitus with manifestations (HCC) Expected: 09/06/2023, Expires: 11/06/2023 [facility] Work Phone: Comment on above: Expected: 09/06/2023 , Expires: 11/06/2023 Start: 09-06-2023 End: 11-06-2023 Comprehensive metabolic 2000 panel - Serum or Plasma COMP METABOLIC PANEL Lab Routine Type II diabetes mellitus with manifestations (HCC) Expected: 09/06/2023, Expires: 11/06/2023 [facility] Work Phone: Comment on above: Expected: 09/06/2023 , Expires: 11/06/2023 Start: 09-06-2023 End: 11-06-2023 Hemoglobin A1c in Blood HGB A1C Lab Routine Type II diabetes mellitus with manifestations (HCC) Expected: 09/06/2023, Expires: 11/06/2023 [facility] Work Phone: Comment on above: Expected: 09/06/2023 , Expires: 11/06/2023 Start: 09-06-2023 End: 11-06-2023 LIPID PANEL, NONFASTING LIPID PANEL, NONFASTING Lab Routine Type II diabetes mellitus with manifestations (HCC) Expected: 09/06/2023, Expires: 11/06/2023 [facility] Work Phone: Comment on above: Expected: 09/06/2023 , Expires: 11/06/2023 Start: 08-16-2023 Hemoglobin A1c measurement HbA1C [facility] Start: 07-08-2023 Advance Directive Discussion Advance Directive Discussion [facility] Start: 07-08-2023 Behavioral Health Screening Behavioral Health Screening [facility] Start: 07-08-2023 Depression Assessment Depression Ass essment [facility] Start: 07-02-2023 Covid-19 Vaccine () Covid-19 Vaccine () [facility] Start: 06-28-2023 ANNUAL PCP TEAM MEDICARE SALES REPRESENTATIVE NOE DISEASE VISIT ANNUAL PCP TEAM CHRONIC DISEASE VISIT [facility] Start: 06-07-2023 End: 08-07-2023 ALBUMIN/CREAT RATIO RND UR ALBUMIN/CREAT RATIO RND UR Lab Routine Type II diabetes mellitus with manifestations (HCC) Expected: 06/07/2023, Expires: 08/07/2023 [facility] Work Phone: Comment on above: Expected: 06/07/2023 , Expires: 08/07/2023 Start: 06-07-2023 End: 08-07-2023 Comprehensive metabolic 2000 panel - Serum or Plasma COMP METABOLIC PANEL Lab Routine Type II diabetes mellitus with manifestations (HCC) Expected: 06/07/2023, Expires: 08/07/2023 [facility] Work Phone: Comment on above: Expected: 06/07/2023 , Expires: 08/07/2023 Start: 06-07-2023 End: 08-07-2023 Hemoglobin A1c in Blood HGB A1C Lab Routine Type II diabetes mellitus with manifestations (HCC) Expected: 06/07/2023, Expires: 08/07/2023 [facility] Work Phone: Comment on above: Expected: 06/07/2023 , Expires: 08/07/2023 Start: 06-07-2023 End: 08-07-2023 LIPID PANEL, NONFASTING LIPID PANEL, NONFASTING Lab Routine Type II diabetes mellitus with manifestations (HCC) Expected: 06/07/2023, Expires: 08/07/2023 [facility] Work Phone: Comment on above: Expected: 06/07/2023 , Expires: 08/07/2023 Start: 05-30-2023 ANNUAL PCP TEAM MEDICARE SALES REPRESENTATIVE NOE DISEASE VISIT ANNUAL PCP TEAM CHRONIC DISEASE VISIT [facility] Start: 05-24-2023 End: 07-24-2023 ALBUMIN/CREAT RATIO RND UR ALBUMIN/CREAT RATIO RND UR Lab Routine Type 2 diabetes mellitus with stage 2 [...] mellitus type 2 with neurological manifestations (HCC) Expected: 05/24/2023, Expires: 07/24/2023 [facility] Work Phone: Comment on above: Expected: 05/24/2023 , Expires: 07/24/2023 Start: 05-24-2023 End: 07-24-2023 CBC W Auto Differential panel - Blood CBC + DIFF Lab Routine 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 Expected: 05/24/2023, Expires: 07/24/2023 [facility] Work Phone: Comment on above: Expected: 05/24/2023 , Expires: 07/24/2023 Start: 05-24-2023 End: 07-24-2023 Comprehensive metabolic 2000 panel - Serum or Plasma COMP METABOLIC PANEL Lab Routine Type 2 diabetes mellitus with stage 2 [...] mellitus type 2 with neurological manifestations (HCC) Essential hypertension, benign Hyperlipidemia, mixed Expected: 05/24/2023, Expires: 07/24/2023 [facility] Work Phone: Comment on above: Expected: 05/24/2023 , Expires: 07/24/2023 Start: 05-24-2023 End: 07-24-2023 Hemoglobin A1c in Blood HGB A1C Lab Routine Type 2 diabetes mellitus with stage 2 [...] mellitus type 2 with neurological manifestations (HCC) Expected: 05/24/2023, Expires: 07/24/2023 [facility] Work Phone: Comment on above: Expected: 05/24/2023 , Expires: 07/24/2023 Start: 05-24-2023 End: 07-24-2023 LIPID PANEL, NONFASTING LIPID PANEL, NONFASTING Lab Routine 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, 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, with long-term current use of insulin (HCC) Diabetes mellitus type 2 with neurological manifestations (HCC) Essential hypertension, benign Hyperlipidemia, mixed Expected: 05/24/2023, Expires: 07/24/2023 [facility] Work Phone: Comment on above: Expected: 05/24/2023 , Expires: 07/24/2023 Start: 05-16-2023 Hepatitis B surface antibody level LDL CHOLESTEROL [facility] Start: 03-27-2023 Covid-19 Vaccine () Covid-19 Vaccine () [facility] Start: 03-27-2023 COVID-19 VACCINE (7 - Pfizer risk series) COVID-19 VACCINE (7 - Pfizer risk series) [facility] Start: 03-08-2023 [facility] Start: 02-28-2023 Hemoglobin A1c/Hemoglobin.total in Blood HBA1C [facility] Start: 01-12-2023 [facility] Start: 01-11-2023 [facility] Start: 01-10-2023 [facility] Start: 01-09-2023 [facility] Start: 01-08-2023 [facility] Start: 01-07-2023 Referral to service [facility] Start: 01-07-2023 Patient discharge [facility] Start: 01-07-2023 Wound care [facility] Start: 01-06-2023 Oxygen therapy [facility] Start: 01-04-2023 Referral to occupational therapist [facility] Start: 01-04-2023 Referral to service [facility] Start: 01-04-2023 Anaerobic microbial culture Anaerobic Culture [facility] Start: 01-04-2023 Blood chemistry [facility] Start: 01-03-2023 Consultation [facility] Start: 01-03-2023 Consultation for treatment [facility] Start: 01-03-2023 Following clinical pathway protocol [facility] Start: 01-03-2023 Bacteria identified in Blood by Culture Blood Culture [facility] Start: 01-03-2023 Bacteria identified in Urine by Culture Urine Culture [facility] Start: 01-03-2023 Respiratory Panel (PCR) Respiratory Panel (PCR) [facility] Start: 01-03-2023 Assessment of risk o f venous thromboembolism [facility] Start: 01-03-2023 Care regimes management [facility] Start: 01-03-2023 Insertion of cathete r into peripheral vein [facility] Start: 01-03-2023 Providing care according to standard [facility] Start: 01-03-2023 Referral to equipment operator warehouse [facility] Start: 01-03-2023 [facility] Start: 01-03-2023 Verification routine [facility] Start: 01-03-2023 Admission procedure [facility] Start: 01-03-2023 MRI of lower extremity Lower Ext/No Jt/w/o [facility] Start: 01-03-2023 [facility] Start: 01-03-2023 End: 01-03-2023 Blood culture [facility] Start: 11-19-2022 End: 01-19-2023 25-hydroxyvitamin D3 [Mass/volume] in Serum or Plasma VITAMIN D 25 HYDROXY Lab Routine Vitamin D deficiency Expected: 11/19/2022, Expires: 01/19/2023 [facility] Work Phone: Comment on above: Expected: 11/19/2022 , Expires: 01/19/2023 Start: 11-19-2022 End: 01-19-2023 ALBUMIN/CREAT RATIO RND UR ALBUMIN/CREAT RATIO RND UR Lab Routine 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 disease, with long-term current use of insulin (HCC) Expected: 11/19/2022, Expires: 01/19/2023 [facility] Work Phone: Comment on above: Expected: 11/19/2022 , Expires: 01/19/2023 Start: 11-19-2022 End: 01-19-2023 CBC W Auto Differential panel - Blood CBC + DIFF Lab Routine Essential hypertension, benign 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 disease, with long-term current use of insulin (HCC) Expected: 11/19/2022, Expires: 01/19/2023 [facility] Work Phone: Comment on above: Expected: 11/19/2022 , Expires: 01/19/2023 Start: 11-19-2022 End: 01-19-2023 Comprehensive metabolic 2000 panel - Serum or Plasma COMP METABOLIC PANEL Lab Routine Essential hypertension, benign 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 disease, with long-term current use of insulin (HCC) Expected: 11/19/2022, Expires: 01/19/2023 [facility] Work Phone: Comment on above: Expected: 11/19/2022 , Expires: 01/19/2023 Start: 11-19-2022 End: 01-19-2023 Hemoglobin A1c in Blood HGB A1C Lab Routine 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 disease, with long-term current use of insulin ([facility]) Expected: 11/19/2022, Expires: 01/19/2023 [facility] Work Phone: Comment on above: Expected: 11/19/2022 , Expires: 01/19/2023 Start: 11-19-2022 End: 01-19-2023 LIPID PANEL, NONFASTING LIPID PANEL, NONFASTING Lab Routine Hyperlipidemia, mixed Expected: 11/19/2022, Expires: 01/19/2023 [facility] Work Phone: Comment on above: Expected: 11/19/2022 , Expires: 01/19/2023 Start: 11-19-2022 End: 01-19-2023 Prostate specific Ag [Mass/volume] in Serum or Plasma PSA/PROSTSPECAG DIAG Lab Routine Prostate disorder Expected: 11/19/2022, Expires: 01/19/2023 [facility] Work Phone: Comment on above: Expected: 11/19/2022 , Expires: 01/19/2023 Start: 11-19-2022 End: 01-19-2023 Urinalysis complete panel - Urine URINALYSIS, WITH MICROSCOPIC Lab Routine Essential hypertension, benign 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 disease, with long-term current use of insulin ([facility]) Expected: 11/19/2022, Expires: 01/19/2023 [facility] Work Phone: Comment on above: Expected: 11/19/2022 , Expires: 01/19/2023 Start: 11-16-2022 3 comp foot exam completed DIABETIC FOOT EXAM [facility] Start: 11-16-2022 Adult depression screening assessment DEPRESSION SCREENING [facility] Start: 11-16-2022 ANNUAL PCP TEAM MEDICARE SALES REPRESENTATIVE NOE DISEASE VISIT ANNUAL PCP TEAM CHRONIC DISEASE VISIT [facility] Start: 11-16-2022 BP CONTROLLED (<130/80) BP CONTROLLE D (<130/80) [facility] Start: 11-16-2022 End: 11-16-2022 Patient encounter procedure 11/16/2022 Office Visit Transplant Surgery Jim Squires MBBS [address] [place] [address] [facility] Start: 11-16-2022 SHINGRIX VACCINE (3 of 3) SHINGRIX VACCINE (3 of 3) [facility] Comment on above: Postponed from 05/07 (Insurance Coverage) Start: 11-13-2022 Hemoglobin A1c measurement HBA1C TEST [facility] Start: 11-08-2022 Microalbumin measurement, urine, quantitative URINE MICROALBUMIN TEST [facility] Start: 11-08-2022 Prostate specific antigen measurement PROSTATE CANCER SCREENING DISCUSSION [facility] Start: 11-08-2022 Urine screening for protein URINE MICROALBUMIN TEST [facility] Start: 11-02-2022 Colonoscopy w/biopsy single/multiple COLONOSCOPY AND BIOPSY [facility] Start: 11-02-2022 Patient discharge [facility] Start: 10-09-2022 Hepatitis C antibody , confirmatory test DILATED RETINAL EXAM [facility] Start: 09-30-2022 Colonoscopy COLONOSCOPY [facility] Start: 09-30-2022 COLORECTAL CANCER SCREENING COLORECTAL CANCER SCREENING [facility] Start: 08-16-2022 Hemoglobin A1c/Hemoglobin.total in Blood HBA1C [facility] Start: 08-07-2022 Hepatitis C antibody , confirmatory test DILATED RETINAL EXAM [facility] Start: 07-08-2022 ADVANCE DIRECTIVE DISCUSSION ADVANCE DIRECTIVE DISCUSSION [facility] Start: 07-08-2022 DEPRESSION ASSESSMENT DEPRESSION ASS ESSMENT [facility] Start: 05-18-2022 Hepatitis B screening URINE ALBUMIN:CREATININE RATIO [facility] Start: 05-17-2022 ANNUAL PCP TEAM MEDICARE SALES REPRESENTATIVE NOE DISEASE VISIT ANNUAL PCP TEAM CHRONIC DISEASE VISIT [facility] Start: 05-17-2022 BP CONTROLLED (<130/80) BP CONTROLLE D (<130/80) [facility] Start: 05-17-2022 COVID-19 VACCINE (6 - Pfizer risk series) COVID-19 VACCINE (6 - Pfizer risk series) [facility] Start: 05-17-2022 Pneumococcal vaccination PNEUMOCOCCAL VACCINE SERIES (2 - PCV) [facility] Start: 05-11-2022 Hemoglobin A1c measurement HBA1C TEST [facility] Start: 05-10-2022 Hepatitis B surface antibody level LDL CHOLESTEROL [facility] Start: 05-04-2022 End: 2022 Hemoglobin A1c/Hemoglobin.total in Blood HGB A1C Lab Routine 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, 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, with long-term current use of insulin (HCC) 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 disease, with long-term current use of insulin (HCC) Expected: 05/04/2022, Expires: 2022 [facility] Work Phone: Comment on above: Expected: 05/04/2022 , Expires: 2022 Start: 05-04-2022 End: 2022 LIPID PANEL, NONFASTING LIPID PANEL, NONFASTING Lab Routine 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, 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, with long-term current use of insulin (HCC) 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 disease, with long-term current use of insulin (HCC) Essential hypertension, benign Hyperlipidemia, mixed Expected: 05/04/2022, Expires: 2022 [facility] Work Phone: Comment on above: Expected: 05/04/2022 , Expires: 2022 Start: 03-08-2022 Influenza vaccination C [facility] Start: 02-06-2022 COVID-19 VACCINE (5 - Booster for Pfizer series) COVID-19 VACCINE (5 - Booster for Pfizer series) [facility] Start: 12-02-2021 COVID-19 VACCINE (5 - Booster for Pfizer series) COVID-19 VACCINE (5 - Booster for Pfizer series) [facility] Start: 11-07-2021 Adult depression screening assessment DEPRESSION SCREENING [facility] Start: 11-06-2021 End: 01-06-2022 ALBUMIN/CREAT RATIO RND UR ALBUMIN/CREAT RATIO RND UR Lab Routine Type 2 diabetes mellitus with stage 2 [...] mellitus type 2 with neurological manifestations (HCC) Expected: 11/06/2021, Expires: 01/06/2022 [facility] Work Phone: Comment on above: Expected: 11/06/2021 , Expires: 01/06/2022 Start: 11-06-2021 End: 01-06-2022 CBC W Auto Differential panel - Blood CBC + DIFF Lab Routine 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 disease, 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, with long-term current use of insulin (HCC) 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, with long-term current use of insulin (HCC) Hyperlipidemia, mixed 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 Expected: 11/06/2021, Expires: 01/06/2022 [facility] Work Phone: Comment on above: Expected: 11/06/2021 , Expires: 01/06/2022 Start: 11-06-2021 End: 01-06-2022 Comprehensive metabolic 2000 panel - Serum or Plasma COMP METABOLIC PANEL Lab Routine 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 disease, 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, with long-term current use of insulin (HCC) 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, with long-term current use of insulin (HCC) Hyperlipidemia, mixed Essential hypertension, benign Diabetes mellitus type 2 with neurological manifestations (HCC) Expected: 11/06/2021, Expires: 01/06/2022 [facility] Work Phone: Comment on above: Expected: 11/06/2021 , Expires: 01/06/2022 Start: 11-06-2021 End: 01-06-2022 Hemoglobin A1c/Hemoglobin.total in Blood HGB A1C Lab Routine Type 2 diabetes mellitus with stage 2 [...] mellitus type 2 with neurological manifestations (HCC) Expected: 11/06/2021, Expires: 01/06/2022 [facility] Work Phone: Comment on above: Expected: 11/06/2021 , Expires: 01/06/2022 Start: 11-06-2021 End: 01-06-2022 LIPID PANEL, NONFASTING LIPID PANEL, NONFASTING Lab Routine 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 disease, 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, with long-term current use of insulin (HCC) 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, with long-term current use of insulin (HCC) Hyperlipidemia, mixed Essential hypertension, benign Expected: 11/06/2021, Expires: 01/06/2022 [facility] Work Phone: Comment on above: Expected: 11/06/2021 , Expires: 01/06/2022 Start: 11-06-2021 End: 01-06-2022 Prostate specific Ag [Mass/volume] in Serum or Plasma PSA/PROSTSPECAG DIAG Lab Routine Prostate disorder Expected: 11/06/2021, Expires: 01/06/2022 [facility] Work Phone: Comment on above: Expected: 11/06/2021 , Expires: 01/06/2022 Start: 11-06-2021 End: 01-06-2022 Urinalysis complete panel - Urine URINALYSIS, WITH MICROSCOPIC Lab Routine 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 disease, 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, with long-term current use of insulin (HCC) 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, with long-term current use of insulin ([facility]) Hyperlipidemia, mixed Essential hypertension, benign Diabetes mellitus type 2 with neurological manifestations ([facility]) Expected: 11/06/2021, Expires: 01/06/2022 [facility] Work Phone: Comment on above: Expected: 11/06/2021 , Expires: 01/06/2022 Start: 11-06-2021 End: 01-06-2022 VITAMIN D 25 HYDROXY VITAMIN D 25 HYDROXY Lab Routine Vitamin D deficiency Expected: 11/06/2021, Expires: 01/06/2022 [facility] Work Phone: Comment on above: Expected: 11/06/2021 , Expires: 01/06/2022 Start: 08-18-2021 Hemoglobin A1c/Hemoglobin.total in Blood HBA1C [facility] Start: 08-02-2021 COVID-19 VACCINE (4 - Booster for Pfizer series) COVID-19 VACCINE (4 - Booster for Pfizer series) [facility] Start: 07-08-2021 ADVANCE DIRECTIVE DISCUSSION ADVANCE DIRECTIVE DISCUSSION [facility] Start: 07-08-2021 DEPRESSION ASSESSMENT DEPRESSION ASS ESSMENT [facility] Start: 06-06-2021 3 comp foot exam completed DIABETIC FOOT EXAM [facility] Start: 05-12-2021 Lipid panel LIPIDS [facility] Start: 05-12-2021 LIPIDS LIPIDS [facility] Start: 2020 Abdominal aortic aneurysm screening ABDOMINAL AORTIC ANEURYSM HIGH RISK SCREEN [facility] Start: 10-31-2019 SHINGRIX VACCINE (3 of 3) SHINGRIX VACCINE (3 of 3) [facility] Start: 03-25-2019 End: 03-25-2019 Clinical Support Encounter 03/25/2019 Clinical Support Encounter [facility] Start: 03-08-2019 Influenza vaccination INFLUENZA VACC INE (#1) [facility] Start: 02-11-[address]/Rest Nuclear Med Order [id number] Work Phone: Start: 12-26-2018 Echocardiography [facility] Work Phone: Start: 09-30-2018 Colonoscopy COLORECTAL CAN CER SCREENING DISCUSSION [facility] Start: 09-30-2018 Screening for malign ant neoplasm of colon COLORECTAL CANCER SCREENING DISCUSSION [facility] Start: 11-13-2017 Hepatitis B Vaccine (2 of 3 - Risk 3-dose series) Hepatitis B Vaccine (2 of 3 - Risk 3-dose series) [facility] Start: 05-09-2017 FECAL OCCULT BLOOD FECAL OCCULT BLOO D [facility] Start: 05-09-2017 Screening for malign ant neoplasm of colon Fecal Occult Blood [facility] Start: 2015 RSV Vaccine (1 - 1-d ose 60+ series) RSV Vaccine (1 - 1-dose 60+ series) [facility] Start: 2005 Colonoscopy COLON CANCER S CREENING DISCUSSION [facility] Start: 2005 Prostate specific antigen measurement PROSTATE CANCER SCREENING DISCUSSION [facility] Start: 2005 Zoster vaccine hzv l ze for subcutaneous use ZOSTER (SHINGLES) VACCINE (1 of 2) [facility] Start: 2000 COLOGUARD (FIT-DNA) COLOGUARD (FIT-D NA) [facility] Start: [address] COLONOGRAPHY [facility] Start: 2000 Screening for malign ant neoplasm of colon [facility] Start: 2000 SIGMOIDOSCOPY SIGMOIDOSCOPY [facility] Start: 1995 Fasting lipid profile LIPID SCREENIN G [facility] Start: 1974 Third diphtheria, tetanus and acellular pertussis (DTaP) vaccination TDAP (ADULT) [facility] Start: 1973 SERUM CREATININE SERUM CREATININE [facility] Start: 1973 Tetanus vaccination TETANUS [facility] Start: 1968 HIV screening HIV SCREENING DISCUSSION [facility] Start: 1955 ABDOMINAL AORTIC ANEURYSM SCREENING ABDOMINAL AORTIC ANEURYSM SCREENING [facility] Start: 1955 Diabetic foot examination DIABETIC FOOT EXAM [facility] Start: 1955 Diabetic retinal eye exam EYE EXAM [facility] Start: 1955 Glaucoma screening EYE EXAM [facility] Start: 1955 Hepatitis C antibody , confirmatory test [facility] Acid fast bacilli culture [facility] Anion gap measurement [facility] BUN/Creatinine ratio [facility] Calcium [Mass/volume ] in Serum or Plasma [facility] Carbon dioxide, tota l [Moles/volume] in Serum or Plasma [facility] Chloride [Moles/volu me] in Serum or Plasma [facility] Creatinine [Moles/volume] in Serum or Plasma [facility] Glucose [Mass/volume ] in Serum or Plasma [facility] Hematocrit [Volume Fraction] of Blood [facility] Hemoglobin [Mass/volume] in Blood [facility] Hemoglobin A1c/Hemoglobin.total in Blood HEMOGLOBIN A1C (POC) Lab Routine Type II diabetes mellitus with manifestations (HCC) Ordered: 03/13/2023 [facility] Work Phone: Comment on above: Ordered: 03/13/2023 Leukocytes [#/volume ] in Blood [facility] Mean corpuscular hemoglobin concentration determination [facility] Mean corpuscular hemoglobin determination [facility] Measurement of renal function [facility] Mycobacterium sp identified in Unspecified specimen by Organism specific culture [facility] Neutrophil count [facility] Neutrophil percent differential count [facility] Patient Education Osteomyelitis Dc [facility] Work Phone: Patient referral [facility] Work Phone: Platelets [#/volume] in Blood [facility] Potassium [Moles/volume] in Serum or Plasma [facility] Red blood cell count [facility] Red cell distributio n width determination [facility] Respiratory pathogen s DNA and RNA panel - Respiratory specimen by JUAN with probe detection [facility] Sodium [Moles/volume ] in Serum or Plasma [facility] Tacrolimus [Mass/volume] in Blood [facility] Tacrolimus [Mass/volume] in Blood [facility] Urea nitrogen [Mass/volume] in Serum or Plasma [facility] Vancomycin [Mass/volume] in Serum or Plasma --trough [facility] NEGATED: Highlighted row has been ruled out! Planned Goals not documented [id number] Work Phone: Immunizations Immunization Date Immunization Notes Care Provider [facility] 04-12-2024 influenza, high dose seasonal, preservative-free Alo Avina MD Work Phone: [facility] 04-12-2024 influenza virus vacc ine, unspecified formulation Claribel Cioce ACCREDITED FARM MANAGER.IMPREGNATOR Work Phone: [facility] 04-21-2023 respiratory syncytia l virus (RSV) vaccine, adjuvanted (AREXVY) Alo Avina MD Work Phone: [facility] 04-07-2023 influenza, high dose seasonal, preservative-free Alo Avina MD Work Phone: [facility] 04-07-2023 influenza virus vacc ine, unspecified formulation Crystal Nation PA-C Work Phone: [facility] 04-07-2022 influenza, high dose seasonal, preservative-free Alo Avina MD Work Phone: [facility] 04-07-2022 influenza virus vacc ine, unspecified formulation Claribel Cioce ACCREDITED FARM MANAGER.IMPREGNATOR Work Phone: [facility] 12-04-2021 zoster vaccine recombinant Alo Avina MD Work Phone: [facility] 11-10-2021 pneumococcal polysaccharide vaccine, 23 valent Alo Avina MD Work Phone: [facility] 05-02-2021 COVID-19 vaccine, MR KAL, Pfizer, 0.3 ML [facility] Prep Covid Mab Transplant [facility] 04-15-2021 influenza, high-dose , quadrivalent vaccine (FLUZONE HIGH DOSE QUADRIVALENT) Alo Avina MD Work Phone: [facility] 04-15-2021 influenza virus vacc ine, unspecified formulation [facility] Prep Covid Mab Transplant [facility] 10-04-2020 COVID-19 vaccine, ag e 12+ yr (PFIZER-BIONTECH - PURPLE TOP) Alo Avina MD Work Phone: [facility] 09-12-2020 COVID-19 vaccine, ag e 12+ yr (PFIZER-BIONTECH - PURPLE TOP) Alo Avina MD Work Phone: [facility] 05-13-2020 influenza, injectabl e, quadrivalent, contains preservative Alo Avina MD Work Phone: [facility] Work Phone: 09-22-2019 pneumococcal polysaccharide vaccine, 23 valent Crystal Nation PA-C Work Phone: [facility] 08-20-2019 hepatitis B vaccine, adult dosage Crystal Nation PA-C Work Phone: [facility] 04-23-2019 hepatitis B vaccine, adult dosage Crystal Nation PA-C Work Phone: [facility] 03-30-2019 influenza, seasonal, injectable Alo Avina MD Work Phone: [facility] 03-17-2019 hepatitis B vaccine, adult dosage Crystal Nation PA-C Work Phone: [facility] 03-12-2019 zoster vaccine recombinant Alo Avina MD Work Phone: [facility] 03-11-2019 measles, mumps and rubella virus vaccine Alo Avina MD Work Phone: [facility] 02-17-2019 hepatitis B vaccine, adult dosage Crystal Nation PA-C Work Phone: [facility] 04-15-2018 hepatitis B vaccine, adult dosage Crystal Nation PA-C Work Phone: [facility] 01-14-2018 hepatitis B vaccine, adult dosage Cyrstal Nation PA-C Work Phone: [facility] 12-19-2017 hepatitis B vaccine, adult dosage Crystal Nation PA-C Work Phone: [facility] 11-19-2017 hepatitis B vaccine, adult dosage Crystal Nation PA-C Work Phone: [facility] 10-16-2017 hepatitis B vaccine, adult dosage Alo Avina MD Work Phone: [facility] 04-17-2017 influenza, injectabl e, quadrivalent, preservative free Alo Avina MD Work Phone: [facility] 04-17-2017 influenza, seasonal, injectable Alo Avina MD Work Phone: [facility] 09-20-2016 pneumococcal conjuga te vaccine, 13 valent Alo Avina MD Work Phone: [facility] 06-06-2016 zoster vaccine, live Alo Avina MD Work Phone: [facility] Work Phone: 01-25-2016 tetanus toxoid, redu martin diphtheria toxoid, and acellular pertussis vaccine, adsorbed Alo Avina MD Work Phone: [facility] 06-06-2015 tetanus and diphther ia toxoids, adsorbed, preservative free, for adult use (2 Lf of tetanus toxoid and 2 Lf of diphtheria toxoid) Alo Avina MD Work Phone: [facility] 06-06-2015 tetanus and diphther ia toxoids, adsorbed, preservative free, for adult use (5 Lf of tetanus toxoid and 2 Lf of diphtheria toxoid) Alo Avina MD Work Phone: [facility] 04-07-2015 influenza, injectabl e, quadrivalent, preservative free [facility] 04-07-2015 influenza, seasonal, injectable Alo Avina MD Work Phone: [facility] 05-05-2014 influenza, seasonal, injectable Alo Avina MD Work Phone: [facility] 04-19-2012 influenza virus vacc ine, unspecified formulation Alo Avina MD Work Phone: [facility] 07-08-2009 pneumococcal conjuga te vaccine, 13 valent Alo Avina MD Work Phone: [facility] 05-11-2009 novel influenza-H1N1 -09, preservative-free, injectable Alo Avina MD Work Phone: [facility] 04-02-2009 influenza virus vacc ine, unspecified formulation Alo Avina MD Work Phone: [facility] 05-05-2007 influenza virus vacc ine, unspecified formulation Alo Avina MD Work Phone: [facility] Work Phone: 02-06-2007 pneumococcal polysaccharide vaccine, 23 valent Alo Avina MD Work Phone: [facility] Work Phone: 05-11-2006 influenza virus vacc ine, unspecified formulation Alo Avina MD Work Phone: [facility] Work Phone: 11-23-2005 tetanus and diphther ia toxoids, adsorbed, preservative free, for adult use (2 Lf of tetanus toxoid and 2 Lf of diphtheria toxoid) Alo Avina MD Work Phone: [facility] Work Phone: 11-23-1991 diphtheria and tetan us toxoids, adsorbed for pediatric use Alo Avina MD Work Phone: [facility] Work Phone: Payers Date Payer Category Payer Self-pay [id number] 07-08-2020 Medicare HUMANA MEDICARE HUMANA GOLD PLUS [id number] 07/08/2020-Present [phone] [address] [address] [place] [address] O [id number] 07-08-2020 Medicare [id number] 07-08-2020 Medicare (Managed Care) HUMANA GOLD PLUS [id number] 07-08-2020 Private Health Insurance [id number] 07-08-2019 Unknown MMO MMO TPA [id number] 07/08/2019-Present [address] [place] [address] PPO [id number] 07-08-2019 Unknown [id number] 07-08-2016 Unknown [id number] 1955 Unknown [id number] Medicare [id number] Unknown [facility] COMPMANAGEME NT [facility] COMPMANAGEMENT xxxxxxxxx Effective for all dates xxxxxxxxx [id number] Unknown JODY VERA HM O PPO POS xxxxxxxxxxxx Effective for all dates xxxxxxxxxxxx [id number] Unknown [id number] Unknown [id number] Unknown [id number] Unknown [id number] Unknown [id number] Unknown [id number] Unknown [id number] Unknown [id number] Social History Date Type Detail Facility Start: 02-10-2019 End: 10-28-2024 Tobacco smoking status NHIS Former smoker [facility] Work Phone: Start: 1955 Sex Assigned At Not on file O [facility] Start: 02-10-2019 Alcohol intake Not Asked [facility] Start: 07-08-1971 End: 07-08-1976 History of tobacco use Cigarette Smoker [facility] Work Phone: Start: 05-17-2021 End: 11-16-2022 Alcohol intake Current drinker of alcohol (finding) [facility] Start: 09-03-2019 End: 01-03-2023 Tobacco smoking status MAIS Unknown if ever smoked [facility] Start: 11-01-2017 [facility] Start: 11-01-2017 None [facility] Start: 10-31-2017 Spouse/ Signif icant Other [facility] Start: 11-02-2017 Cigarettes [facility] Start: 1955 Sex Assigned At Male W [facility] Start: 07-08-1971 End: 07-08-1976 History of tobacco use Current smoker [facility] Start: 06-08-2019 End: 03-13-2023 Cigarettes smoked current (pack per day) - Reported 0.5 [facility] Work Phone: Start: 06-08-2019 End: 10-28-2024 Tobacco use and exposure Smokeless tobacco non-user [facility] Start: 06-08-2019 History SDOH Alcohol Frequency 2 [facility] Start: 06-08-2019 History SDOH Alcohol Std Drinks 1 [facility] Start: 11-06-2021 End: 05-30-2022 Exposure to SARS-CoV-2 (event) Not sure [facility] Start: 05-30-2022 Tobacco Comment quit [facility] Start: 12-06-2022 End: 03-13-2023 Tobacco use panel [facility] Work Phone: Start: 06-08-2012 Adult Depression Screening Assessment 0 [facility] Work Phone: Start: 12-18-2023 End: 10-28-2024 Alcohol intake Ex-drinker (finding) [facility] How often to you hav e a drink containing alcohol? Never [facility] Start: 10-20-2024 Sex Male (finding) [facility] History of tobacco use Passive smoker [facility] NEGATED: Highlighted row - - XO-Vwgfssgaqr-Issjme Work Phone: Medical Equipment Procedure Code Equipment Code Equipment Original Text Equipment Identifier Dates Putty Dbx 2.5cc - [id number] Start: 10-25-2015 Screw 2.3x12mm Co-T2312 - [id number] Start: 10-25-2015 Screw Crtx Stp Ftrd 2.4x18 - [id number] Start: 10-25-2015 Screw Crtx Stp Ftrd 2.4x14 - [id number] Start: 10-25-2015 Screw 2.3x16mm Co-T2316 - [id number] Start: 10-25-2015 Screw 2.3x20mm Co-T2320 - [id number] Start: 10-25-2015 Screw 2.3x14mm Co-T2314 - [id number] Start: 10-25-2015 Plate Long Right 70-0048 - [id number] Start: 10-25-2015 Screw Hexalobe 3.5mm X 12mm - [id number] Start: 10-25-2015 Screw Hexalobe 3.5mm X 14mm - [id number] Start: 10-25-2015 14 Mm Accumed Screw-3.5mm Locking Hexalobe, Ref# [id number], [id number] Start: 10-25-2015 Plate Lc 2.4x52 06h - [id number] Start: 10-25-2015 Screw Lck Stp Ftrd 2.4x14 - [id number] Start: 10-25-2015 Screw Lck Stp Ftrd 2.4x16 - [id number] Start: 10-25-2015 [id number], [id number], [id number], [id number], [id number], [id number], [id number] Start: 07-02-2014 End: 01-09-2025 Comment on above: Test blood sugar(s) two times daily. Dx: 250.02. Insulin: No use four times/day Test blood sugar(s) 4 daily. Dx: 250.02 Insulin: Yes Use as instructed - Test blood sugar three times daily. E11.9 Insulin: yes SUTURE,LIGA CLIP MED LT200 FDA Start: 09-11-2017 SUTURE,LIGA CLIP MED LT200 FDA Start: 09-11-2017 SUTURE,LIGA CLIP SM LT-100 FDA Start: 09-11-2017 SUTURE,LIGA CLIP SM LT-100 FDA Start: 09-11-2017 SUTURE,LIGA CLIP SM LT-100 FDA Start: 09-11-2017 SUTURE,LIGA CLIP SM LT-100 FDA Start: 09-11-2017 CATHETER, CVD PLNDRME 19CM FDA Start: 11-01-2017 SUTURE,LIGA CLIP MED LT200 FDA Start: 09-11-2017 SUTURE,LIGA CLIP MED LT200 FDA Start: 09-11-2017 SUTURE,LIGA CLIP SM LT-100 FDA Start: 09-11-2017 SUTURE,LIGA CLIP SM LT-100 FDA Start: 09-11-2017 SUTURE,LIGA CLIP SM LT-100 FDA Start: 09-11-2017 SUTURE,LIGA CLIP SM LT-100 FDA Start: 09-11-2017 CATHETER, CVD PLNDRME 19CM FDA Start: 11-01-2017 Stent Ureteral Dbl J 6 X 12 - [id number] Start: 10-22-2019 Comment on above: Description: Transpl ant kidney ureter SUTURE,LIGA CLIP MED LT200 FDA Start: 09-11-2017 SUTURE,LIGA CLIP MED LT200 FDA Start: 09-11-2017 SUTURE,LIGA CLIP SM LT-100 FDA Start: 09-11-2017 SUTURE,LIGA CLIP SM LT-100 FDA Start: 09-11-2017 SUTURE,LIGA CLIP SM LT-100 FDA Start: 09-11-2017 SUTURE,LIGA CLIP SM LT-100 FDA Start: 09-11-2017 CATHETER, CVD PLNDRME 19CM FDA Start: 11-01-2017 SUTURE,LIGA CLIP MED LT200 FDA Start: 09-11-2017 SUTURE,LIGA CLIP MED LT200 FDA Start: 09-11-2017 SUTURE,LIGA CLIP SM LT-100 FDA Start: 09-11-2017 SUTURE,LIGA CLIP SM LT-100 FDA Start: 09-11-2017 SUTURE,LIGA CLIP SM LT-100 FDA Start: 09-11-2017 SUTURE,LIGA CLIP SM LT-100 FDA Start: 09-11-2017 CATHETER, CVD PLNDRME 19CM FDA Start: 11-01-2017 SUTURE,LIGA CLIP MED LT200 FDA Start: 09-11-2017 SUTURE,LIGA CLIP MED LT200 FDA Start: 09-11-2017 SUTURE,LIGA CLIP SM LT-100 FDA Start: 09-11-2017 SUTURE,LIGA CLIP SM LT-100 FDA Start: 09-11-2017 SUTURE,LIGA CLIP SM LT-100 FDA Start: 09-11-2017 SUTURE,LIGA CLIP SM LT-100 FDA Start: 09-11-2017 CATHETER, CVD PLNDRME 19CM FDA Start: 11-01-2017 SUTURE,LIGA CLIP MED LT200 FDA Start: 09-11-2017 SUTURE,LIGA CLIP MED LT200 FDA Start: 09-11-2017 SUTURE,LIGA CLIP SM LT-100 FDA Start: 09-11-2017 SUTURE,LIGA CLIP SM LT-100 FDA Start: 09-11-2017 SUTURE,LIGA CLIP SM LT-100 FDA Start: 09-11-2017 SUTURE,LIGA CLIP SM LT-100 FDA Start: 09-11-2017 CATHETER, CVD PLNDRME 19CM FDA Start: 11-01-2017 SUTURE,LIGA CLIP MED LT200 FDA Start: 09-11-2017 SUTURE,LIGA CLIP MED LT200 FDA Start: 09-11-2017 SUTURE,LIGA CLIP SM LT-100 FDA Start: 09-11-2017 SUTURE,LIGA CLIP SM LT-100 FDA Start: 09-11-2017 SUTURE,LIGA CLIP SM LT-100 FDA Start: 09-11-2017 SUTURE,LIGA CLIP SM LT-100 FDA Start: 09-11-2017 CATHETER, CVD PLNDRME 19CM FDA Start: 11-01-2017 SUTURE,LIGA CLIP MED LT200 FDA Start: 09-11-2017 SUTURE,LIGA CLIP MED LT200 FDA Start: 09-11-2017 SUTURE,LIGA CLIP SM LT-100 FDA Start: 09-11-2017 SUTURE,LIGA CLIP SM LT-100 FDA Start: 09-11-2017 SUTURE,LIGA CLIP SM LT-100 FDA Start: 09-11-2017 SUTURE,LIGA CLIP SM LT-100 FDA Start: 09-11-2017 CATHETER, CVD PLNDRME 19CM FDA Start: 11-01-2017 SUTURE,LIGA CLIP MED LT200 FDA Start: 09-11-2017 SUTURE,LIGA CLIP MED LT200 FDA Start: 09-11-2017 SUTURE,LIGA CLIP SM LT-100 FDA Start: 09-11-2017 SUTURE,LIGA CLIP SM LT-100 FDA Start: 09-11-2017 SUTURE,LIGA CLIP SM LT-100 FDA Start: 09-11-2017 SUTURE,LIGA CLIP SM LT-100 FDA Start: 09-11-2017 CATHETER, CVD PLNDRME 19CM FDA Start: 11-01-2017 SUTURE,LIGA CLIP MED LT200 FDA Start: 09-11-2017 SUTURE,LIGA CLIP MED LT200 FDA Start: 09-11-2017 SUTURE,LIGA CLIP SM LT-100 FDA Start: 09-11-2017 SUTURE,LIGA CLIP SM LT-100 FDA Start: 09-11-2017 SUTURE,LIGA CLIP SM LT-100 FDA Start: 09-11-2017 SUTURE,LIGA CLIP SM LT-100 FDA Start: 09-11-2017 CATHETER, CVD PLNDRME 19CM FDA Start: 11-01-2017 SUTURE,LIGA CLIP MED LT200 FDA Start: 09-11-2017 SUTURE,LIGA CLIP MED LT200 FDA Start: 09-11-2017 SUTURE,LIGA CLIP SM LT-100 FDA Start: 09-11-2017 SUTURE,LIGA CLIP SM LT-100 FDA Start: 09-11-2017 SUTURE,LIGA CLIP SM LT-100 FDA Start: 09-11-2017 SUTURE,LIGA CLIP SM LT-100 FDA Start: 09-11-2017 CATHETER, CVD PLNDRME 19CM FDA Start: 11-01-2017 SUTURE,LIGA CLIP MED LT200 FDA Start: 09-11-2017 SUTURE,LIGA CLIP MED LT200 FDA Start: 09-11-2017 SUTURE,LIGA CLIP SM LT-100 FDA Start: 09-11-2017 SUTURE,LIGA CLIP SM LT-100 FDA Start: 09-11-2017 SUTURE,LIGA CLIP SM LT-100 FDA Start: 09-11-2017 SUTURE,LIGA CLIP SM LT-100 FDA Start: 09-11-2017 CATHETER, CVD PLNDRME 19CM FDA Start: 11-01-2017 SUTURE,LIGA CLIP MED LT200 FDA Start: 09-11-2017 SUTURE,LIGA CLIP MED LT200 FDA Start: 09-11-2017 SUTURE,LIGA CLIP SM LT-100 FDA Start: 09-11-2017 SUTURE,LIGA CLIP SM LT-100 FDA Start: 09-11-2017 SUTURE,LIGA CLIP SM LT-100 FDA Start: 09-11-2017 SUTURE,LIGA CLIP SM LT-100 FDA Start: 09-11-2017 CATHETER, CVD PLNDRME 19CM FDA Start: 11-01-2017 SUTURE,LIGA CLIP MED LT200 FDA Start: 09-11-2017 SUTURE,LIGA CLIP MED LT200 FDA Start: 09-11-2017 SUTURE,LIGA CLIP SM LT-100 FDA Start: 09-11-2017 SUTURE,LIGA CLIP SM LT-100 FDA Start: 09-11-2017 SUTURE,LIGA CLIP SM LT-100 FDA Start: 09-11-2017 SUTURE,LIGA CLIP SM LT-100 FDA Start: 09-11-2017 CATHETER, CVD PLNDRME 19CM FDA Start: 11-01-2017 SUTURE,LIGA CLIP MED LT200 FDA Start: 09-11-2017 SUTURE,LIGA CLIP MED LT200 FDA Start: 09-11-2017 SUTURE,LIGA CLIP SM LT-100 FDA Start: 09-11-2017 SUTURE,LIGA CLIP SM LT-100 FDA Start: 09-11-2017 SUTURE,LIGA CLIP SM LT-100 FDA Start: 09-11-2017 SUTURE,LIGA CLIP SM LT-100 FDA Start: 09-11-2017 CATHETER, CVD PLNDRME 19CM FDA Start: 11-01-2017 SUTURE,LIGA CLIP MED LT200 FDA Start: 09-11-2017 SUTURE,LIGA CLIP MED LT200 FDA Start: 09-11-2017 SUTURE,LIGA CLIP SM LT-100 FDA Start: 09-11-2017 SUTURE,LIGA CLIP SM LT-100 FDA Start: 09-11-2017 SUTURE,LIGA CLIP SM LT-100 FDA Start: 09-11-2017 SUTURE,LIGA CLIP SM LT-100 FDA Start: 09-11-2017 CATHETER, CVD PLNDRME 19CM FDA Start: 11-01-2017 SUTURE,LIGA CLIP MED LT200 FDA Start: 09-11-2017 SUTURE,LIGA CLIP MED LT200 FDA Start: 09-11-2017 SUTURE,LIGA CLIP SM LT-100 FDA Start: 09-11-2017 SUTURE,LIGA CLIP SM LT-100 FDA Start: 09-11-2017 SUTURE,LIGA CLIP SM LT-100 FDA Start: 09-11-2017 SUTURE,LIGA CLIP SM LT-100 FDA Start: 09-11-2017 CATHETER, CVD PLNDRME 19CM FDA Start: 11-01-2017 Goals Date Patient Goal Desired Activity /State Functional Status Date Assessment Result Facility 01-07-2023 Functional status Chair [facility] Work Phone: 04-09-2019 Are you deaf, or do you have serious difficulty hearing No 04/09/2019 1:59 PM EDT Roman Espino III, MD No [facility] 04-09-2019 Are you blind, or do you have serious difficulty seeing, even when wearing glasses No 04/09/2019 1:59 PM EDT Roman Espino III, MD No [facility] 04-09-2019 Do you have serious difficulty walking or climbing stairs No 04/09/2019 1:59 PM EDT Roman Espino III, MD No [facility] 04-09-2019 Do you have difficul ty dressing or bathing No 04/09/2019 1:59 PM EDT Roman Espino III, MD [facility] 04-09-2019 Because of a physica l, mental, or emotional condition, do you have difficulty doing errands alone such as visiting a physician's office or shopping No 04/09/2019 1:59 PM EDT Roman Espino III, MD [facility] NEGATED: Highlighted row Functional performance Functional status health issues are not documented Disease [facility] Work Phone: Mental Status Date Assessment Result Facility 01-07-2023 Cognitive function Voice/Name [facility] Work Phone: 11-02-2022 Cognitive function Level Of Cons ciousness Sedated [facility] Work Phone: 11-02-2022 Cognitive function Patient Jacqueline elias Person;Place;Time [facility] Work Phone: 04-09-2019 Because of a physical, mental, or emotional condition, do you have serious difficulty concentrating, remembering, or making decisions No 04/09/2019 1:59 PM EDT Roman Espino III, MD [facility] NEGATED: Highlighted row Cognitive function [Interpretation] Cognitive status health issues are not documented Disease [facility] Work Phone: Clinical Notes 12-05-2018 to 04-28-2025 Aurora Jules MA - 03/17/2025 12:03 PM EDTTelephone Encounter - Lisandra Velásquez MA - 02/19/2025 1:32 PM EDTTelephone Encounter - ChristenLisandra MA - 02/19/2025 1:32 PM EDT Note Date & Type Note Facility 04-28-2025 Note HNO ID: [id number] Author: ?, ?, ? Service: ? Author Type: ? Type: Progress Notes Filed: 04/28/2025 09:44 Note Text: POPULATION HEALTH NAVIGATION OUTREACH Action/FYI Patient outreach for HCCs HM due; A1c, flu Spoke with he had Flu and Covid 04/13 and 04/26. A1c orders in there has labs done at [facility] before appointment in Jun. Reason for Outreach Care Gap/HCC or Scheduling Wellness Visits Care Gaps due: HBA1C Flu Vaccine Patient Contacted: Spoke to patient/parent/or legal guardian Patient identified by name and : Yes Care Gap/HCC/Scheduling Wellness actions taken: HCC related Patient will walk in for labs Navigation Signature: Lisandra Duggan April 28, 2025 9:35 AM [facility] 04-28-2025 Note Patient Outreach (NE TNAV) RODRI GALE ([id number]) 1955 M Date Time Provider Department 04/28/25 ALO AVINA During your visit today, we recorded the following information about you: Lisandra Barahona 04/28/2025 9:44 AM Signed POPULATION HEALTH NAVIGATION OUTREACH Action/FYI Patient outreach for HCCs HM due; A1c, flu Spoke with he had Flu and Covid 04/13 and 04/26. A1c orders in there has labs done at [facility] before appointment in Jun. Reason for Outreach Care Gap/HCC or Scheduling Wellness Visits Care Gaps due: HBA1C Flu Vaccine Patient Contacted: Spoke to patient/parent/or legal guardian Patient identified by name and : Yes Care Gap/HCC/Scheduling Wellness actions taken: HCC related Patient will walk in for labs Navigation Signature: Lisandra Sanders Pss April 28, 2025 9:35 AM Allergies As of Date: 04/28/2025 Noted Allergy Reaction BACTRIM (SULFAMETHOXAZOLE) 02/13/2013 4 - Hives METFORMIN 01/02/2008 2 - Rash LIPITOR (ATORVASTATIN CALCIUM) 10/10/2011 14 - Other: See Comments Comments: myalgia NORVASC (AMLODIPINE BESYLATE) 08/31/2014 7 - Swelling Date Reviewed: 10/28/2024 Reviewed by: Shana Bedolla, RN - Fully Assessed Reason for Visit: Population Health Navigation Outreach [3910] Cmt: Camila Clark Prescriptions as of 04/28/2025 - NIFEdipine ER (PROCARDIA XL) 30 mg 24 hr tablet Take 1 tablet by mouth once daily. - Insulin [place], Disposable, (BD ULTRAFINE III MINI PEN) 31 gauge x 3/16 use four times/day - labetalol (TRANDATE) 100 mg tablet Take 1.5 tablets by mouth two times a day. - finasteride (PROSCAR) 5 mg tablet Take 1 tablet by mouth once daily. - rosuvastatin (CRESTOR) 10 mg tablet Take 1 tablet by mouth once daily. - blood sugar diagnostic (TRUE METRIX GLUCOSE TEST STRIP) test strip Use as instructed - Test blood sugar three times daily. E11.9 Insulin: yes - insulin glargine (LANTUS SOLOSTAR U-100 INSULIN) 100 unit/mL (3 mL) Inject 25 Units subcutaneously daily at bedtime. - NOVOLOG FLEXPEN U-100 INSULIN 100 unit/mL (3 mL) Inject 4 units with breakfast, use 6 units with lunch and dinner. PLUS SLIDING SCALE #1 (based on pre meal blood sugar) TDD~40 - FARXIGA 10 mg tablet Take 10 mg by mouth once daily. - lisinopril (ZESTRIL) 5 mg tablet Take 5 mg by mouth once daily. - Cholecalciferol, Vitamin D3, 50 mcg (2,000 unit) cap Take by mouth. OTC - take one tablet daily - tacrolimus ER (ENVARSUS XR) 1 mg tablet Take 1 tablet by mouth once daily. - mycophenolate sodium DR (MYFORTIC) 360 mg TbEC Take 720 mg by mouth twice daily. - aspirin, enteric coated (ASPIRIN, ENTERIC COATED) 81 mg EC tablet Take 81 mg by mouth once daily. - Lancets (ONE TOUCH DELICA) lancets Test blood sugar(s) 4 daily. 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 DM (diabetes mellitus) type II uncontrolled wit*08/31/2014 08/21/2018 Chronic 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 (HCC*02/28/2015 06/06/2020 Fracture of forearm, closed [S52.90XA] 01/25/2016 09/20/2016 Type 2 diabetes mellitus with right eye affecte*09/20/2016 Essential tremor [G25.0] 09/20/2016 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 [N18.2*07/12/2017 Hypocalcemia [E83.51] 07/31/2017 03/07/2018 Vitamin D deficiency [E55.9] 07/31/2017 End stage kidney disease (HCC) [N18.6] 11/06/2017 06/06/2020 Type 2 diabetes mellitus with left eye affected*08/21/2018 Restless leg syndrome [G25.81] 12/05/2018 Chronic pain of right knee [M25.561, G89.29] 12/05/2018 06/06/2020 Diabetic ulcer of toe of right foot associated *12/05/2018 06/06/2020 Type 2 diabetes mellitus with stage 2 chronic k*08/21/2019 Renal transplant recipient [Z94.0] 11/23/2019 Witnessed episode of apnea [R06.81] 11/23/2019 Ex-smoker [Z87.891] 05/17/2021 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) [E13*05/17/2021 Diabetic eye exam (HCC) [Z01.00, E11.9] 10/09/2021 Prostate disorder [N42.9] 11/06/2021 Medicare annual wellness visit, subsequent [Z00*11/16/[address] [Z78.9] 11/16/2021 Advance directive discussed with patient [Z71.8*11/16/2021 Right rotator cuff tear [M75.101] 11/16/2021 Screening for colon cancer [Z12.11] 10/01/2022 Diabetic foot (HCC) [E11.8] 06/23/2024 Vitreous hemorrhage of left eye (HCC) [H43.12] 04/25/2025 Iritis of left eye [H20.9] 04/25/2025 Encounter Status:Closed by LISANDRA BARAHONA on 04/28/25 [facility] 04-23-2025 Note HNO ID: [id number] Author: RJ MENARD LPN Service: ? Author Type: Licensed Nurse Type: Progress Notes Filed: 04/23/2025 07:31 Note Text: Scan on 04/22/2025 3:26 PM by Provider, Irma PAFidelinaC: Consultation - Ophthalmology [facility] 03-29-2025 Note HNO ID: [id number] Author: ?, ?, ? Service: ? Author Type: ? Type: Progress Notes Filed: 03/29/2025 11:38 Note Text: POPULATION HEALTH NAVIGATION OUTREACH Action/ Patient outreach for HCCs HM due; A1C, flu Lvm to schedule Reason for Outreach Care Gap/HCC or Scheduling Wellness Visits Care Gaps due: HBA1C Flu Vaccine Patient Contacted: Unable or unnecessary to reach patient: Left message HCC related Updated appointment notes Navigation Signature: Lisandra Duggan March 29, 2025 11:35 AM [facility] 03-29-2025 Note Patient Outreach (KELTON BRIGGSAV) RODRI GALE ([id number]) 1955 M Date Time Provider Department 03/29/25 ALO AVINA During your visit today, we recorded the following information about you: Marilyn DugganLisandra 03/29/2025 11:38 AM Signed POPULATION HEALTH NAVIGATION OUTREACH Action/FYI Patient outreach for HCCs HM due; A1C, flu Lvm to schedule Reason for Outreach Care Gap/HCC or Scheduling Wellness Visits Care Gaps due: HBA1C Flu Vaccine Patient Contacted: Unable or unnecessary to reach patient: Left message HCC related Updated appointment notes Navigation Signature: Lisandra Marilyn Duggan March 29, 2025 11:35 AM Allergies As of Date: 03/29/2025 Noted Allergy Reaction BACTRIM (SULFAMETHOXAZOLE) 02/13/2013 4 - Hives METFORMIN 01/02/2008 2 - Rash LIPITOR (ATORVASTATIN CALCIUM) 10/10/2011 14 - Other: See Comments Comments: myalgia NORVASC (AMLODIPINE BESYLATE) 08/31/2014 7 - Swelling Date Reviewed: 10/28/2024 Reviewed by: Shana Bedolla RN - Fully Assessed Reason for Visit: Population Health Navigation Outreach [3910] Cmt: Camila Clark Prescriptions as of 03/29/2025 - Insulin [place], Disposable, (BD ULTRAFINE III MINI PEN) 31 gauge x 3/16 use four times/day - labetalol (TRANDATE) 100 mg tablet Take 1.5 tablets by mouth two times a day. - finasteride (PROSCAR) 5 mg tablet Take 1 tablet by mouth once daily. - rosuvastatin (CRESTOR) 10 mg tablet Take 1 tablet by mouth once daily. - blood sugar diagnostic (TRUE METRIX GLUCOSE TEST STRIP) test strip Use as instructed - Test blood sugar three times daily. E11.9 Insulin: yes - insulin glargine (LANTUS SOLOSTAR U-100 INSULIN) 100 unit/mL (3 mL) Inject 25 Units subcutaneously daily at bedtime. - NOVOLOG FLEXPEN U-100 INSULIN 100 unit/mL (3 mL) Inject 4 units with breakfast, use 6 units with lunch and dinner. PLUS SLIDING SCALE #1 (based on pre meal blood sugar) TDD~40 - NIFEdipine ER (PROCARDIA XL) 30 mg 24 hr tablet Take 1 tablet by mouth once daily. - FARXIGA 10 mg tablet Take 10 mg by mouth once daily. - lisinopril (ZESTRIL) 5 mg tablet Take 5 mg by mouth once daily. - Cholecalciferol, Vitamin D3, 50 mcg (2,000 unit) cap Take by mouth. OTC - take one tablet daily - tacrolimus ER (ENVARSUS XR) 1 mg tablet Take 1 tablet by mouth once daily. - mycophenolate sodium DR (MYFORTIC) 360 mg TbEC Take 720 mg by mouth twice daily. - aspirin, enteric coated (ASPIRIN, ENTERIC COATED) 81 mg EC tablet Take 81 mg by mouth once daily. - Lancets (ONE TOUCH DELICA) lancets Test blood sugar(s) 4 daily. 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 DM (diabetes mellitus) type II uncontrolled wit*08/31/2014 08/21/2018 Chronic 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 (HCC*02/28/2015 06/06/2020 Fracture of forearm, closed [S52.90XA] 01/25/2016 09/20/2016 Type 2 diabetes mellitus with right eye affecte*09/20/2016 Essential tremor [G25.0] 09/20/2016 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 [N18.2*07/12/2017 Hypocalcemia [E83.51] 07/31/2017 03/07/2018 Vitamin D deficiency [E55.9] 07/31/2017 End stage kidney disease (HCC) [N18.6] 11/06/2017 06/06/2020 Type 2 diabetes mellitus with left eye affected*08/21/2018 Restless leg syndrome [G25.81] 12/05/2018 Chronic pain of right knee [M25.561, G89.29] 12/05/2018 06/06/2020 Diabetic ulcer of toe of right foot associated *12/05/2018 06/06/2020 Type 2 diabetes mellitus with stage 2 chronic k*08/21/2019 Renal transplant recipient [Z94.0] 11/23/2019 Witnessed episode of apnea [R06.81] 11/23/2019 Ex-smoker [Z87.891] 05/17/2021 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) [E13*05/17/2021 Diabetic eye exam (HCC) [Z01.00, E11.9] 10/09/2021 Prostate disorder [N42.9] 11/06/2021 Medicare annual wellness visit, subsequent [Z00*11/16/[address] [Z78.9] 11/16/2021 Advance directive discussed with patient [Z71.8*11/16/2021 Right rotator cuff tear [M75.101] 11/16/2021 Screening for colon cancer [Z12.11] 10/01/2022 Diabetic foot (HCC) [E11.8] 06/23/2024 Encounter Status:Closed by LISANDRA BARAHONA on 03/29/25 [facility] 03-17-2025 Note HNO ID: [id number] Author: AURORA JULES MA Service: ? Author Type: Tube Wrapper Type: Progress Notes Filed: 03/17/2025 12:04 Note Text: Scan on 03/17/2025 10:50 AM by ProviderIrma PA-C: [facility] 03-17-2025 History of Presen t illness Narrative Scan on 03/17/2025 10:50 AM by ProviderIrma PAFidelinaC: [facility] documented in this encounter [facility] 02-19-2025 Telephone encounter Note Claribel Chaparroluiricardo ISAIAH does not complete forms for diabetic shoes. This was forwarded to PCP office. See telephone encounter dated 01/29/25. Lisandra Velásquez MA [facility] 02-19-2025 Miscellaneous Notes Claribel Cope ISAIAH does not complete forms for diabetic shoes. This was forwarded to PCP office. See telephone encounter dated 01/29/25. Lisandra Velásquez MA Jazlyn from [facility] [place] called to see if office had received forms to approve diabetic shoes. Jazlyn states that she has sent 3 time. If you have any question please call Jazlyn at [phone] select option 3. Candelaria Burrell LPN documented in this encounter [facility] 02-19-2025 Telephone encounter Note Jazlyn from [facility] [place] called to see if office had received forms to approve diabetic shoes. Jazlyn states that she has sent 3 time. If you have any question please call Jazlyn at [phone] select option 3. Candelaria Burrell LPN [facility] Work Phone: 02-02-2025 Telephone encounter Note Forms completed by PCP and faxed back to number below. Aurora Jules MA [facility] 02-02-2025 Miscellaneous Notes Forms completed by PCP and faxed back to number below. Aurora Jules MA Forms ready to be returned. Received fax from [facility] needing forms completed for Medicare Compliance fro pt's Diabetic shoes/inserts. Forms on PCP's desk. Please fax back to [phone]. Rj Menard LPN documented in this encounter [facility] 02-02-2025 Telephone encounter Note Forms ready to be returned. [facility] 01-29-2025 Telephone encounter Note Received fax from [facility] needing forms completed for Medicare Compliance fro pt's Diabetic shoes/inserts. Forms on PCP's desk. Please fax back to [phone]. Rj Menard LPN [facility] 01-20-2025 Note HNO ID: [id number] Author: AURORA JULES MA Service: ? Author Type: Tube Wrapper Type: Progress Notes Filed: 01/20/2025 08:38 Note Text: Ophthalmology OV, HM updated. Aurora Jules MA Scan on 01/19/2025 5:01 PM by ProviderIrma PAFidelinaC: Consultation - Ophthalmology [facility] 01-20-2025 History of Presen t illness Narrative Ophthalmology OV, HM updated. Aurora Jules MA Scan on 01/19/2025 5:01 PM by ProviderIrma PAFidelinaC: Consultation - Ophthalmology documented in this encounter [facility] 01-09-2025 Telephone encounter Note Prescription Refill Information The patient has been identified by name and date of : Yes Caregiver verified no other encounters exist for this prescription request: Yes Caregiver confirmed with patient/requestor that no other refills are due, in the near future, with this provider at this time: Yes The last office visit in the department: 10/28/24 Does the patient have a future office visit with this provider/department: Yes 06/23/25 Requested Prescriptions Pending Prescriptions Disp Refills Insulin [place], Disposable, (BD ULTRAFINE III MINI PEN) 31 gauge x 3/16 400 each 3 Sig: use four times/day Opal Dawn January 09, 2025 9:24 AM [facility] 01-09-2025 Miscellaneous Notes Prescription Refill Information The patient has been identified by name and date of : Yes Caregiver verified no other encounters exist for this prescription request: Yes Caregiver confirmed with patient/requestor that no other refills are due, in the near future, with this provider at this time: Yes The last office visit in the department: 10/28/24 Does the patient have a future office visit with this provider/department: Yes 06/23/25 Requested Prescriptions Pending Prescriptions Disp Refills Insulin [place], Disposable, (BD ULTRAFINE III MINI PEN) 31 gauge x 3/16 400 each 3 Sig: use four times/day Opal Dawn January 09, 2025 9:24 AM documented in this encounter [facility] 12-29-2024 Note HNO ID: [id number] Author: AURORA JULES MA Service: ? Author Type: Tube Wrapper Type: Progress Notes Filed: 12/29/2024 13:59 Note Text: New outside labs. View External Labs - Ur Creat MicroAlb Crea Ur [ID [id number]] [facility] 12-11-2024 Note HNO ID: [id number] Author: RJ MENARD LPN Service: ? Author Type: LICENSED NURSE Type: Progress Notes Filed: 12/11/2024 08:06 Note Text: Scan on 12/11/2024 3:09 AM by Provider, External, PA-C: Consultation - Ophthalmology [facility] 12-11-2024 History of Presen t illness Narrative Scan on 12/11/2024 3:09 AM by Irma Alvarado PA-C: Consultation - Ophthalmology documented in this encounter [facility] 11-25-2024 Note HNO ID: [id number] Author: RJ MENARD LPN Service: ? Author Type: LICENSED NURSE Type: Progress Notes Filed: 11/25/2024 07:36 Note Text: Scan on 11/25/2024 6:36 AM by ProviderIrma PA-C: Chemistry [facility] 11-20-2024 Telephone encounter Note Pt's next appt is 06/23/25 [facility] 11-20-2024 Miscellaneous Notes Pt's next appt is 06/23/25 Prescription Refill Information The patient has been identified by name and date of : Yes Caregiver verified no other encounters exist for this prescription request: Yes Caregiver confirmed with patient/requestor that no other refills are due, in the near future, with this provider at this time: Yes The last office visit in the department: 06-08-2024 Does the patient have a future office visit with this provider/department: Yes Requested Prescriptions Pending Prescriptions Disp Refills labetalol (TRANDATE) 100 mg tablet 270 tablet 1 Sig: Take 1.5 tablets by mouth two times a day. Marisabel Duggan November 20, 2024 8:13 AM documented in this encounter [facility] 11-20-2024 Telephone encounter Note Prescription Refill Information The patient has been identified by name and date of : Yes Caregiver verified no other encounters exist for this prescription request: Yes Caregiver confirmed with patient/requestor that no other refills are due, in the near future, with this provider at this time: Yes The last office visit in the department: 06-08-2024 Does the patient have a future office visit with this provider/department: Yes Requested Prescriptions Pending Prescriptions Disp Refills labetalol (TRANDATE) 100 mg tablet 270 tablet 1 Sig: Take 1.5 tablets by mouth two times a day. Marisabel Duggan November 20, 2024 8:13 AM [facility] Work Phone: 11-06-2024 Note HNO ID: [id number] Author: RJ MENARD LPN Service: ? Author Type: LICENSED NURSE Type: Progress Notes Filed: 11/06/2024 11:29 Note Text: Scan on 11/06/2024 9:26 AM by ProviderIrma PA-C: Consultation - Ophthalmology [facility] 11-06-2024 History of Presen t illness Narrative Scan on 11/06/2024 9:26 AM by ProviderIrma PA-C: Consultation - Ophthalmology documented in this encounter [facility] 10-28-2024 History of Presen t illness Narrative OFFICE VISIT PROGRESS NOTE CC Rodri Gale is a 69 year old who presents today for blood sugar review, insulin dose review, adjust. HPI Diagnosed with diabetes mellitus type II, ~ 1997 Hx of dialysis ~ 2 years Patient sts kidney issues are not secondary to his diabetes [place] it was related to medication overdose (BP meds) Hx of Kidney tx 10/22/2019 Last endocrine OV 04/29/2024 Some elements copied from my note 04/29/2024 which have been updated where appropriate, and all reflect current medical decision making from date of this visit. HPI 10/28/2024 Gets eye injections this coming week Sts that the product would no longer cover retinopathy injections ILEA, is no longer covered Patient was switched to different injection medications I wish the government would stay out of the medications' No changes to med/surg hx Follows regularly with nephro and opth Eating healthy, staying active Takes all his meds as per below CURRENT DM MEDS NOVOLOG 4-6-6 plus SS#1 LANTUS 25 units daily FARXIGA 10 mg 1 tab daily (started by nephlyssa 04/28/2024) SMBG Type of Monitor: Other Frequency of Monitoring: times a day BG Values: Breakfast 86-123 Lunch: 102-135 Dinner: 103-144 Bed-time: Values over past week: Highest 150 Lowest 81 Hypoglycemia: no Diet: Counts Carbs Exercise: walking everyday for 4k steps, some days will double steps DM REVIEW OF SYSTEMS Last Eye Exam : 10/26/2024 - injections sees 3-4 times per year Last Podiatry Exam: declined Cardiorespiratory: negative, denies chest pain, pressure Claudication: no Dyslipidemia: Yes, controlled on medication High Blood Pressure: Yes, controlled on medication CURRENT LABS CURRENT OUTSIDE A1C 6.2% Recent Labs 07/12/17 1500 11/06/17 0602 10/29/19 0000 11/02/19 0000 11/05/19 0000 11/26/19 0913 12/03/19 0000 12/24/19 0000 08/03/20 0000 05/10/21 0000 05/18/21 0000 05/18/21 0000 05/16/22 0000 11/28/22 0000 06/16/24 0000 ALT -- < > -- -- -- -- -- 23 -- 23 -- -- -- 19 18 AST -- < > -- -- -- -- -- 15 -- 22 -- -- -- 19 20 UALBCR -- -- -- -- -- -- -- -- -- -- 16.6 -- -- 47.8* 727 ALB -- < > -- < > -- < > -- -- -- 3.8 -- -- -- 3.8 3.9 CA -- < > 8.7* < > -- -- -- -- -- 9.3 -- -- 9.1 8.9 9.3 ALKPHOS -- < > -- -- -- -- -- 89 -- -- -- -- -- 55 57 GLUC -- < > 137* < > 134* -- 167* 235* -- 115* -- -- 115* 111* 130* BUN -- < > -- < > -- -- -- 22* -- 14 -- -- -- 14 26* CREAT -- < > 1.76* < > 1.32* -- 1.40* 1.41* -- 1.08 -- -- 1.02 1.07 1.33* NA -- < > 139 < > 140 -- 142 141 -- 142 -- -- 141 145 144 K -- < > 4.0 < > 4.5 -- 4.9 4.2 -- 3.8 -- -- 3.7 4.1 4.2 CHLOR -- < > 106 < > 111* -- 114* 111* -- 110* -- -- 108* 114* 115* CO2 -- < > -- < > -- -- -- 21.0 -- 25 -- -- -- 22 24.0 ANION -- < > 6 -- 7 -- 5 -- -- -- -- -- -- -- -- HBA1C -- < > -- -- -- -- -- -- < > -- 8.3* 8.3* < > 8.7* 8.7* 8.0* 6.4* B12 476 -- -- -- -- -- -- -- -- -- -- -- -- -- -- < > = values in this interval not displayed. Recent Labs 11/30/16 0000 07/12/17 1500 11/06/17 0602 04/18/18 0000 10/28/18 0000 12/10/18 0000 08/03/20 0000 05/10/21 0000 05/16/22 0000 11/28/22 0000 06/16/24 0000 TG < > -- 121 -- 227 -- 176 < > 142 116 160* CHOL < > -- 97 -- 145 -- 161 < > 173 174 159 HDL < > -- 37 -- 39 -- 41 < > 44 43 37* VLDL -- -- 24 -- 45 -- 35 -- -- -- -- LDL < > -- 36 < > 61 < > 85 < > 101* 108* 90 TCHDL -- -- 2.62 -- -- -- -- -- -- -- -- LDLHDL -- -- 0.97 -- -- -- -- -- -- -- -- HBA1C -- -- 6.3 < > -- < > 5.7* < > 8.7* 8.7* 8.0* 6.4* B12 -- 476 -- -- -- -- -- -- -- -- -- < > = values in this interval not displayed. PAST MEDICAL HISTORY Diagnosis Date Advance directive discussed with patient 11/16/2021 Discussed 11/2021 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 07/12/2017 BMI 32.0-32.9,adult BPH (benign prostatic hyperplasia) 03/06/2012 Chronic pain of right knee 12/05/2018 Diabetes mellitus type 2 with neurological manifestations ([facility]) 02/13/2013 Diabetic eye exam ([facility]) 10/09/2021 Last done 10/09/2021 [facility] Diabetic foot ([facility]) 06/23/2024 Sees Podiatry: Dr. Rojas Diabetic ulcer of toe of right foot associated with type 2 diabetes mellitus, limited to breakdown of skin ([facility]) 12/05/2018 Erectile dysfunction 02/24/2010 Essential hypertension, benign Essential tremor 09/20/2016 Ex-smoker 05/17/2021 Fistula 12/20/2017 left forearm radial to cephalic ateriovenous Hearing loss 09/10/2012 Hyperlipidemia, mixed Living will in place 11/16/2021 DPA; Reginald (son) Medicare annual wellness visit, subsequent 11/16/2021 Medicare Part B: 01/05/2018, Last done: 11/16/2021 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 ([facility]) 05/17/2021 Osteoarthritis of left knee 02/16/2011 Personal history of nicotine dependence Renal transplant recipient 11/23/2019 Restless leg syndrome 12/05/2018 Right rotator cuff tear 11/16/2021 Treated with PHYSICAL THERAPY. 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, with long-term current use of insulin ([facility]) 09/20/2016 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 disease, with long-term current use of insulin ([facility]) 08/21/2019 Vitamin D deficiency 07/31/2017 Witnessed episode of apnea 11/23/2019 PAST SURGICAL HISTORY Procedure Laterality Date COLONOSCOPY FLX DX W/COLLJ SPEC WHEN PFRMD 09/30/2017 [facility]Steph Espino--Repeat in 3 years-2020 FISTULA Left 09/11/2017 Radiocephalic arteriovenous fistula creation--[facility]--Steph Espino PAST SURGICAL HISTORY OF 06/07/2015 right grade II Open distal radius and ulnar shaft fracture PAST SURGICAL HISTORY OF Left 12/2022 right partial 5th metatarsal removal and 5th digit. PROSTATE SURGERY HX REM LESION TRUNK,ARM, LEG <0.5 CM 05/07/2007 Exc. piero cyst upper mid back FAMILY HISTORY Problem Relation Age of Onset Diabetes Mother Hypertension Mother Heart Mother CT other (lung cancer) Mother bone metastasis Diabetes Father other (BPH) Father other (pancreatic cancer) Father Diabetes Sister Diabetes Sister Diabetes Brother Diabetes Brother Diabetes Brother Social History Tobacco Use Smoking status: Former Current packs/day: 1.00 Average packs/day: 1 pack/day for 6.0 years (6.0 ttl pk-yrs) Types: Cigarettes Smokeless tobacco: Never Tobacco comments: quit 1969's Vaping Use Vaping status: Never Used Substance Use Topics Alcohol use: Not Currently Comment: RARE Drug use: No Current Outpatient Medications Medication Sig finasteride (PROSCAR) 5 mg tablet Take 1 tablet by mouth once daily. rosuvastatin (CRESTOR) 10 mg tablet Take 1 tablet by mouth once daily. labetalol (TRANDATE) 100 mg tablet Take 1.5 tablets by mouth two times a day. FARXIGA 10 mg tablet Take 10 mg by mouth once daily. lisinopril (ZESTRIL) 5 mg tablet Take 5 mg by mouth once daily. NIFEdipine ER (PROCARDIA XL) 30 mg 24 hr tablet Take 1 tablet by mouth once daily. Insulin [place], Disposable, (BD ULTRAFINE III MINI PEN) 31 gauge x 3/16 use four times/day blood sugar diagnostic (TRUE METRIX GLUCOSE TEST STRIP) test strip Use as instructed - Test blood sugar three times daily. E11.9 Insulin: yes insulin glargine (LANTUS SOLOSTAR U-100 INSULIN) 100 unit/mL (3 mL) INJECT 25 Units at bedtime insulin aspart U-100 (NOVOLOG FLEXPEN U-100 INSULIN) 100 unit/mL (3 mL) Inject 4 units with breakfast, use 6 units with lunch and dinner. PLUS SLIDING SCALE #1 (based on pre meal blood sugar) TDD~40 Cholecalciferol, Vitamin D3, 50 mcg (2,000 unit) cap Take by mouth. OTC - take one tablet daily tacrolimus ER (ENVARSUS XR) 1 mg tablet Take 1 tablet by mouth once daily. mycophenolate sodium DR (MYFORTIC) 360 mg TbEC Take 720 mg by mouth twice daily. aspirin, enteric coated (ASPIRIN, ENTERIC COATED) 81 mg EC tablet Take 81 mg by mouth once daily. Lancets (ONE [...] hypertension, CHF or palpitations PHYSICAL EXAMINATION: BP 148/68 (BP Site: Right Arm, BP Position: Sitting, BP Cuff Size: Regular Adult) Pulse (!) 55 Resp 20 Ht 179.1 cm (5' 10.5) Wt 86.7 kg (191 lb 3.2 oz) SpO2 97% BMI 27.05 kg/m GENERAL: alert and appropriate, in no distress, well-hydrated, well nourished, and happy, smiling, interactive SKIN: no rash noted HEAD: normocephalic, no abnormality or lesion noted EYES: PERRL NECK: full ROM, no cervical LNs noted ACANTHOSIS: none noted EXTREMITIES: normal NEUROLOGIC: no obvious deficit ASSESSMENT/PLAN (E11.9, Z79.4) Diabetes mellitus treated with insulin (HCC) (primary encounter diagnosis) Comment: EXCELLENT CONTROL, no changes today CAN follow up one year Recommended diet: Low carbohydrate and Low saturated [...] consultants regarding his other medical problems. Plan: COMPREHENSIVE METABOLIC PANEL, LIPID PANEL, NONFASTING, ALBUMIN/CREATININE RATIO, URINE, HEMOGLOBIN A1C Claribel Cope CNP documented in this encounter [facility] 10-28-2024 Note HNO ID: [id number] Author: CLARIBEL COPE APRN.ISAIAH Service: ? Author Type: Nurse Practitioner Type: Progress Notes Filed: 10/28/2024 08:57 Note Text: OFFICE VISIT PROGRESS NOTE CC Rodri Gale is a 69 year old who presents today for blood sugar review, insulin dose review, adjust. HPI Diagnosed with diabetes mellitus type II, ~ 1997 Hx of dialysis ~ 2 years Patient sts kidney issues are not secondary to his diabetes [place] it was related to medication overdose (BP meds) Hx of Kidney tx 10/22/2019 Last endocrine OV 04/29/2024 Some elements copied from my note 04/29/2024 which have been updated where appropriate, and all reflect current medical decision making from date of this visit. HPI 10/28/2024 Gets eye injections this coming week Sts that the product would no longer cover retinopathy injections ILEA, is no longer covered Patient was switched to different injection medications I wish the government would stay out of the medications' No changes to med/surg hx Follows regularly with nephro and opth Eating healthy, staying active Takes all his meds as per below CURRENT DM MEDS NOVOLOG 4-6-6 plus SS#1 LANTUS 25 units daily FARXIGA 10 mg 1 tab daily (started by nephro 04/28/2024) SMBG Type of Monitor: Other Frequency of Monitoring: times a day BG Values: Breakfast 86-123 Lunch: 102-135 Dinner: 103-144 Bed-time: Values over past week: Highest 150 Lowest 81 Hypoglycemia: no Diet: Counts Carbs Exercise: walking everyday for 4k steps, some days will double steps DM REVIEW OF SYSTEMS Last Eye Exam : 10/26/2024 - injections sees 3-4 times per year Last Podiatry Exam: declined Cardiorespiratory: negative, denies chest pain, pressure Claudication: no Dyslipidemia: Yes, controlled on medication High Blood Pressure: Yes, controlled on medication CURRENT LABS CURRENT OUTSIDE A1C 6.2% Recent Labs 07/12/17 1500 11/06/17 0602 10/29/19 0000 11/02/19 0000 11/05/19 0000 11/26/19 0913 12/03/19 0000 12/24/19 0000 08/03/20 0000 05/10/21 0000 05/18/21 0000 05/18/21 0000 05/16/22 0000 11/28/22 0000 06/16/24 0000 ALT -- < > -- -- -- -- -- -- 23 -- -- -- 19 18 AST -- < > -- -- -- -- -- 15 -- 22 -- -- -- 19 20 UALBCR -- -- -- -- -- -- -- -- -- -- 16.6 -- -- 47.8* 727 ALB -- < > -- < > -- < > -- -- -- 3.8 -- -- -- 3.8 3.9 CA -- < > 8.7* < > -- -- -- -- -- 9.3 -- -- 9.1 8.9 9.3 ALKPHOS -- < > -- -- -- -- -- 89 -- -- -- -- -- 55 57 GLUC -- < > 137* < > 134* -- 167* 235* -- 115* -- -- 115* 111* 130* BUN -- < > -- < > -- -- -- 22* -- 14 -- -- -- 14 26* CREAT -- < > 1.76* < > 1.32* -- 1.40* 1.41* -- 1.08 -- -- 1.02 1.07 1.33* NA -- < > 139 < > 140 -- 142 141 -- 142 -- -- 141 145 144 K -- < > 4.0 < > 4.5 -- 4.9 4.2 -- 3.8 -- -- 3.7 4.1 4.2 CHLOR -- < > 106 < > 111* -- 114* 111* -- 110* -- -- 108* 114* 115* CO2 -- < > -- < > -- -- -- 21.0 -- 25 -- -- -- 22 24.0 ANION -- < > 6 -- 7 -- 5 -- -- -- -- -- -- -- -- HBA1C -- < > -- -- -- -- -- -- < > -- 8.3* 8.3* < > 8.7* 8.7* 8.0* 6.4* B12 476 -- -- -- -- -- -- -- -- -- -- -- -- -- -- < > = values in this interval not displayed. Recent Labs 11/30/16 0000 07/12/17 1500 11/06/17 0602 04/18/18 0000 10/28/18 0000 12/10/18 0000 08/03/20 0000 05/10/21 0000 05/16/22 0000 11/28/22 0000 06/16/24 0000 TG < > -- 121 -- 227 -- 176 < > 142 116 160* CHOL < > -- 97 -- 145 -- 161 < > 173 174 159 HDL < > -- 37 -- 39 -- 41 < > 44 43 37* VLDL -- -- 24 -- 45 -- 35 -- -- -- -- LDL < > -- 36 < > 61 < > 85 < > 101* 108* 90 TCHDL -- -- 2.62 -- -- -- -- -- -- -- -- LDLHDL -- -- 0.97 -- -- -- -- -- -- -- -- HBA1C -- -- 6.3 < > -- < > 5.7* < > 8.7* 8.7* 8.0* 6.4* B12 -- 476 -- -- -- -- -- -- -- -- -- < > = values in this interval not displayed. PAST MEDICAL HISTORY Diagnosis Date Advance directive discussed with patient 11/16/2021 Discussed 11/2021 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 07/12/2017 BMI 32.0-32.9,adult BPH (benign prostatic hyperplasia) 03/06/2012 Chronic pain of right knee 12/05/2018 Diabetes mellitus type 2 with neurological manifestations ([facility]) 02/13/2013 Diabetic eye exam ([facility]) 10/09/2021 Last done 10/09/2021 [facility] Diabetic foot ([facility]) 06/23/2024 Sees Podiatry: Dr. Rojas Diabetic ulcer of toe of right foot associated with type 2 diabetes mellitus, limited to breakdown of skin ([facility]) 12/05/2018 Erectile dysfunction 02/24/2010 Essential hypertension, benign Essential tremor 09/20/2016 Ex-smoker 05/17/2021 Fistula 12/20/2017 left forearm radial to cephalic ateriovenous Hearing loss 09/10/2012 Hyperlipidemia, mixed Living will in place 11/16/2021 DPA; Reginald (son) Medicare annual wellness visit, subsequent 11/16/2021 Medicare Part B: 01/05/2018, Last done: 11/16/2021 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 ([facility]) 05/17/2021 Osteoarthritis of left knee 02/16/2011 Personal history of nicotine dependence [place] (more content not included)... [facility] 10-27-2024 Note HNO ID: [id number] Author: RJ MENARD LPN Service: ? Author Type: LICENSED NURSE Type: Progress Notes Filed: 10/27/2024 07:11 Note Text: Scan on 10/26/2024 10:54 PM by ProviderIrma PA-C: Consultation - Ophthalmology [facility] 10-27-2024 History of Presen t illness Narrative Scan on 10/26/2024 10:54 PM by ProviderIrma PA-C: Consultation - Ophthalmology documented in this encounter [facility] 10-23-2024 Telephone encounter Note The following approved medication requests have been transmitted electronically. Requested Prescriptions Signed Prescriptions Disp Refills NIFEdipine ER (PROCARDIA XL) 30 mg 24 hr tablet 90 tablet 1 Sig: Take 1 tablet by mouth once daily. Authorizing Provider: ALO AVINA MD [facility] 10-23-2024 Miscellaneous Notes The following approved medication requests have been transmitted electronically. Requested Prescriptions Signed Prescriptions Disp Refills NIFEdipine ER (PROCARDIA XL) 30 mg 24 hr tablet 90 tablet 1 Sig: Take 1 tablet by mouth once daily. Authorizing Provider: ALO AVINA MD The patient has been identified by name and date of : Yes Caregiver verified no other encounters exist for this prescription request: Yes Caregiver confirmed with patient/requestor that no other refills are due, in the near future, with this provider at this time: Yes The last office visit in the department: 06/23/2024 Does the patient have a future office visit with this provider/department: Yes 06/23/2025 Requested Prescriptions Pending Prescriptions Disp Refills NIFEdipine ER (PROCARDIA XL) 30 mg 24 hr tablet 90 tablet 1 Sig: Take 1 tablet by mouth once daily. Zandra Ybarra LPN October 23, 2024 8:17 AM documented in this encounter [facility] 10-23-2024 Telephone encounter Note The patient has been identified by name and date of : Yes Caregiver verified no other encounters exist for this prescription request: Yes Caregiver confirmed with patient/requestor that no other refills are due, in the near future, with this provider at this time: Yes The last office visit in the department: 06/23/2024 Does the patient have a future office visit with this provider/department: Yes 06/23/2025 Requested Prescriptions Pending Prescriptions Disp Refills NIFEdipine ER (PROCARDIA XL) 30 mg 24 hr tablet 90 tablet 1 Sig: Take 1 tablet by mouth once daily. Zandra Ybarra LPN October 23, 2024 8:17 AM [facility] 09-24-2024 Note HNO ID: [id number] Author: ROSIO SERVIN RN Service: ? Author Type: Registered Nurse Type: Progress Notes Filed: 09/24/2024 12:17 Note Text: CDM ENROLLMENT Provider Action / FYI: Patient identified by name and date of . Discussed care with patient. Program Details Chronic Disease Management Status: Declined Patient Declined - After Starting Program Effective Dates: unknown - 09/24/2024 Responsible Staff: Rosio Servin RN Support and Services: None active Assessments CDM Assessment Medications: Do you have any questions about taking your medications or which medications you should be taking?: No Do you need any medication refills at this time, including any of the medication you might take only when needed?: No Symptoms: Are you experiencing any new or worsening symptoms that you need to talk about today?: No ADLs No documentation this encounter Fall Risk No documentation this encounter SDOH No documentation this encounter Interventions No episode Rosio Servin RN September 24, 2024 12:09 PM [facility] 09-24-2024 History of Presen t illness Narrative CDM ENROLLMENT Provider Action / FYI: Patient identified by name and date of . Discussed care with patient. Program Details Chronic Disease Management Status: Declined Patient Declined - After Starting Program Effective Dates: unknown - 09/24/2024 Responsible Staff: Rosio Servin RN Support and Services: None active Assessments CDM Assessment Medications: Do you have any questions about taking your medications or which medications you should be taking?: No Do you need any medication refills at this time, including any of the medication you might take only when needed?: No Symptoms: Are you experiencing any new or worsening symptoms that you need to talk about today?: No ADLs No documentation this encounter Fall Risk No documentation this encounter SDOH No documentation this encounter Interventions No episode Rosio Servin RN September 24, 2024 12:09 PM documented in this encounter [facility] 09-24-2024 Note Patient Outreach (AM BC) BALJINDERRODRI Wetzel ([id number]) 1955 M Date Time Provider Department 09/24/24 ROSIO SERVING During your visit today, we recorded the following information about you: Rosio Servin RN 09/24/2024 12:17 PM Signed CDM ENROLLMENT Provider Action / FYI: Patient identified by name and date of . Discussed care with patient. Program Details Chronic Disease Management Status: Declined Patient Declined - After Starting Program Effective Dates: unknown - 09/24/2024 Responsible Staff: Rosio Servin RN Support and Services: None active Assessments CDM Assessment Medications: Do you have any questions about taking your medications or which medications you should be taking?: No Do you need any medication refills at this time, including any of the medication you might take only when needed?: No Symptoms: Are you experiencing any new or worsening symptoms that you need to talk about today?: No ADLs No documentation this encounter Fall Risk No documentation this encounter SDOH No documentation this encounter Interventions No episode Rosio Servin RN September 24, 2024 12:09 PM Allergies As of Date: 09/24/2024 Noted Allergy Reaction BACTRIM (SULFAMETHOXAZOLE) 02/13/2013 4 - Hives METFORMIN 01/02/2008 2 - Rash LIPITOR (ATORVASTATIN CALCIUM) 10/10/2011 14 - Other: See Comments Comments: myalgia NORVASC (AMLODIPINE BESYLATE) 08/31/2014 7 - Swelling Date Reviewed: 06/23/2024 Reviewed by: Alo Avina MD - Fully Assessed Prescriptions as of 09/24/2024 - finasteride (PROSCAR) 5 mg tablet Take 1 tablet by mouth once daily. - rosuvastatin (CRESTOR) 10 mg tablet Take 1 tablet by mouth once daily. - labetalol (TRANDATE) 100 mg tablet Take 1.5 tablets by mouth two times a day. - FARXIGA 10 mg tablet Take 10 mg by mouth once daily. - lisinopril (ZESTRIL) 5 mg tablet Take 5 mg by mouth once daily. - NIFEdipine ER (PROCARDIA XL) 30 mg 24 hr tablet Take 1 tablet by mouth once daily. - Insulin [place], Disposable, (BD ULTRAFINE III MINI PEN) 31 gauge x 3/16 use four times/day - blood sugar diagnostic (TRUE METRIX GLUCOSE TEST STRIP) test strip Use as instructed - Test blood sugar three times daily. E11.9 Insulin: yes - insulin glargine (LANTUS SOLOSTAR U-100 INSULIN) 100 unit/mL (3 mL) INJECT 25 Units at bedtime - insulin aspart U-100 (NOVOLOG FLEXPEN U-100 INSULIN) 100 unit/mL (3 mL) Inject 4 units with breakfast, use 6 units with lunch and dinner. PLUS SLIDING SCALE #1 (based on pre meal blood sugar) TDD~40 - Cholecalciferol, Vitamin D3, 50 mcg (2,000 unit) cap Take by mouth. OTC - take one tablet daily - tacrolimus ER (ENVARSUS XR) 1 mg tablet Take 1 tablet by mouth once daily. - mycophenolate sodium DR (MYFORTIC) 360 mg TbEC Take 720 mg by mouth twice daily. - aspirin, enteric coated (ASPIRIN, ENTERIC COATED) 81 mg EC tablet Take 81 mg by mouth once daily. - Lancets (ONE TOUCH DELICA) lancets Test blood sugar(s) 4 daily. Dx: 250.02 Insulin: Yes Problem List As Of Date 09/24/2024 Noted Resolved Essential hypertension, benign [I10] Hyperlipidemia, mixed [E78.2] Sebaceous cyst [L72.3] 04/24/2007 09/20/2016 Erectile dysfunction [N52.9] 02/24/2010 Osteoarthritis of left knee [M17.12] 02/16/2011 BPH (benign prostatic hyperplasia) [N40.0] 03/06/2012 Hearing loss [H91.90] 09/10/2012 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*02/13/2013 DM (diabetes mellitus) type II uncontrolled wit*08/31/2014 08/21/2018 Chronic 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 (HCC*02/28/2015 06/06/2020 Fracture of forearm, closed [S52.90XA] 01/25/2016 09/20/2016 Type 2 diabetes mellitus with right eye affecte*09/20/2016 Essential tremor [G25.0] 09/20/2016 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 [N18.2*07/12/2017 Hypocalcemia [E83.51] 07/31/2017 03/07/2018 Vitamin D deficiency [E55.9] 07/31/2017 End stage kidney disease (HCC) [N18.6] 11/06/2017 06/06/2020 Type 2 diabetes mellitus with left eye affected*08/21/2018 Restless leg syndrome [G25.81] 12/05/2018 Chronic pain of right knee [M25.561, G89.29] 12/05/2018 06/06/2020 Diabetic ulcer of toe of right foot associated *12/05/2018 06/06/2020 Type 2 diabetes mellitus with stage 2 chronic k*08/21/2019 Renal transplant recipient [Z94.0] 11/23/2019 Witnessed episode of apnea [R06.81] 11/23/2019 Ex-smoker [Z87.891] 05/17/2021 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) [E13*05/17/2021 Diabetic eye exam (HCC) [Z01.00, E11.9] 10/09/2021 Prostate disorder [N42.9] 11/06/2021 Medicare annual wellness visit, subsequent [Z00*11/16/[address] [Z78.9] 11/16/2021 Advance directive discussed with patient [Z71.8*11/16/2021 Right rotator cuff tear [M75.101] 11/16/2021 Screening for colon cancer [Z12.11] 10/01/2022 Diabetic foot (HCC) [E11.8] 06/23/2024 Encounter Numbe (more content not included)... [facility] 09-14-2024 Note HNO ID: [id number] Author: KATRINA MACE MA Service: ? Author Type: Tube Wrapper Type: Progress Notes Filed: 09/14/2024 15:24 Note Text: Scan on 09/10/2024 10:17 PM by Provider, External, PA-C: Consultation - Ophthalmology Katrina Mace MA [facility] 09-14-2024 History of Presen t illness Narrative Scan on 09/10/2024 10:17 PM by ProviderIrma PA-C: Consultation - Ophthalmology Katrina Mace MA documented in this encounter [facility] 09-10-2024 Note HNO ID: [id number] Author: MARIA LUISA BARNETT MA Service: ? Author Type: Tube Wrapper Type: Progress Notes Filed: 09/10/2024 13:12 Note Text: POPULATION HEALTH NAVIGATION OUTREACH Action/FYI [employer] High Risk Outreach - Attempt # 1 Last PCP Visit: 06/23/2024 - has AVW scheduled for 06/23/2025 Outreach to Schedule: 6 Month Follow Up around December Health Maintenance Topics Due: A1C - due 12/15/2024 as well as other labs Outcomes: Patient declined - was told by provider he only need to be seen once a year. Reason for Outreach Care Gap/HCC or Scheduling Wellness Visits Care Gaps due: Follow-up Appointment HBA1C Patient Contacted: Spoke to patient/parent/or legal guardian Patient identified by name and : Yes Care Gap/HCC/Scheduling Wellness actions taken: Patient declined: Doesn't feel it's necessary Navigation Signature: Maria Luisa Barnett MA September 10, 2024 8:45 AM [facility] 09-10-2024 History of Presen t illness Narrative POPULATION HEALTH NAVIGATION OUTREACH Action/FYI [employer] High Risk Outreach - Attempt # 1 Last PCP Visit: 06/23/2024 - has AVW scheduled for 06/23/2025 Outreach to Schedule: 6 Month Follow Up around December Health Maintenance Topics Due: A1C - due 12/15/2024 as well as other labs Outcomes: Patient declined - was told by provider he only need to be seen once a year. Reason for Outreach Care Gap/HCC or Scheduling Wellness Visits Care Gaps due: Follow-up Appointment HBA1C Patient Contacted: Spoke to patient/parent/or legal guardian Patient identified by name and : Yes Care Gap/HCC/Scheduling Wellness actions taken: Patient declined: Doesn't feel it's necessary Navigation Signature: Maria Luisa Barnett MA September 10, 2024 8:45 AM documented in this encounter [facility] 09-10-2024 Note Patient Outreach (KELTON TNAV) RODRI GALE ([id number]) 1955 M Date Time Provider Department 09/10/24 MARIA LUISA BARNETT During your visit today, we recorded the following information about you: Maria Luisa Barnett MA 09/10/2024 1:12 PM Signed POPULATION HEALTH NAVIGATION OUTREACH Action/FYI [employer] High Risk Outreach - Attempt # 1 Last PCP Visit: 06/23/2024 - has AVW scheduled for 06/23/2025 Outreach to Schedule: 6 Month Follow Up around December Health Maintenance Topics Due: A1C - due 12/15/2024 as well as other labs Outcomes: Patient declined - was told by provider he only need to be seen once a year. Reason for Outreach Care Gap/HCC or Scheduling Wellness Visits Care Gaps due: Follow-up Appointment HBA1C Patient Contacted: Spoke to patient/parent/or legal guardian Patient identified by name and : Yes Care Gap/HCC/Scheduling Wellness actions taken: Patient declined: Doesn't feel it's necessary Navigation Signature: Maria Luisa Barnett MA September 10, 2024 8:45 AM Allergies As of Date: 09/10/2024 Noted Allergy Reaction BACTRIM (SULFAMETHOXAZOLE) 02/13/2013 4 - Hives METFORMIN 01/02/2008 2 - Rash LIPITOR (ATORVASTATIN CALCIUM) 10/10/2011 14 - Other: See Comments Comments: myalgia NORVASC (AMLODIPINE BESYLATE) 08/31/2014 7 - Swelling Date Reviewed: 06/23/2024 Reviewed by: Alo Avina MD - Fully Assessed Reason for Visit: Population Health Navigation Outreach [3910] Cmt: [employer] High Risk Attempt #1 Prescriptions as of 09/10/2024 - finasteride (PROSCAR) 5 mg tablet Take 1 tablet by mouth once daily. - rosuvastatin (CRESTOR) 10 mg tablet Take 1 tablet by mouth once daily. - labetalol (TRANDATE) 100 mg tablet Take 1.5 tablets by mouth two times a day. - FARXIGA 10 mg tablet Take 10 mg by mouth once daily. - lisinopril (ZESTRIL) 5 mg tablet Take 5 mg by mouth once daily. - NIFEdipine ER (PROCARDIA XL) 30 mg 24 hr tablet Take 1 tablet by mouth once daily. - Insulin [place], Disposable, (BD ULTRAFINE III MINI PEN) 31 gauge x 3/16 use four times/day - blood sugar diagnostic (TRUE METRIX GLUCOSE TEST STRIP) test strip Use as instructed - Test blood sugar three times daily. E11.9 Insulin: yes - insulin glargine (LANTUS SOLOSTAR U-100 INSULIN) 100 unit/mL (3 mL) INJECT 25 Units at bedtime - insulin aspart U-100 (NOVOLOG FLEXPEN U-100 INSULIN) 100 unit/mL (3 mL) Inject 4 units with breakfast, use 6 units with lunch and dinner. PLUS SLIDING SCALE #1 (based on pre meal blood sugar) TDD~40 - Cholecalciferol, Vitamin D3, 50 mcg (2,000 unit) cap Take by mouth. OTC - take one tablet daily - tacrolimus ER (ENVARSUS XR) 1 mg tablet Take 1 tablet by mouth once daily. - mycophenolate sodium DR (MYFORTIC) 360 mg TbEC Take 720 mg by mouth twice daily. - aspirin, enteric coated (ASPIRIN, ENTERIC COATED) 81 mg EC tablet Take 81 mg by mouth once daily. - Lancets (ONE TOUCH DELICA) lancets Test blood sugar(s) 4 daily. 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*02/13/2013 DM (diabetes mellitus) type II uncontrolled wit*08/31/2014 08/21/2018 Chronic 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 (HCC*02/28/2015 06/06/2020 Fracture of forearm, closed [S52.90XA] 01/25/2016 09/20/2016 Type 2 diabetes mellitus with right eye affecte*09/20/2016 Essential tremor [G25.0] 09/20/2016 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 [N18.2*07/12/2017 Hypocalcemia [E83.51] 07/31/2017 03/07/2018 Vitamin D deficiency [E55.9] 07/31/2017 End stage kidney disease (HCC) [N18.6] 11/06/2017 06/06/2020 Type 2 diabetes mellitus with left eye affected*08/21/2018 Restless leg syndrome [G25.81] 12/05/2018 Chronic pain of right knee [M25.561, G89.29] 12/05/2018 06/06/2020 Diabetic ulcer of toe of right foot associated *12/05/2018 06/06/2020 Type 2 diabetes mellitus with stage 2 chronic k*08/21/2019 Renal transplant recipient [Z94.0] 11/23/2019 Witnessed episode of apnea [R06.81] 11/23/2019 Ex-smoker [Z87.891] 05/17/2021 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) [E13*05/17/2021 Diabetic eye exam (HCC) [Z01.00, E11.9] 10/09/2021 Prostate disorder [N42.9] 11/06/2021 Medicare annual wellness visit, subsequent [Z00*11/16/[address] [Z78.9] 11/16/2021 Advance directive discussed with patient [Z71.8*11/16/2021 Right rotator cuff tear [M75.101] 11/16/2021 Screening for colon cancer [Z12.11] 10/01/2022 Diabetic foot (HCC) [E11.8] 06/23/2024 Encounter Status:Closed by MARIA LUISA BARNETT on 09/10/24 [facility] 08-28-2024 Telephone encounter Note done [facility] 08-28-2024 Miscellaneous Notes done Pt's is requesting to renew pt's handicap placard. Please call Radha when ready for cone picker. Rj Menard LPN documented in this encounter [facility] 08-28-2024 Telephone encounter Note Pt's is requesting to renew pt's handicap placard. Please call Radha when ready for cone picker. Rj Menard LPN [facility] 07-16-2024 Note HNO ID: [id number] Author: RJ MENARD LPN Service: ? Author Type: LICENSED NURSE Type: Progress Notes Filed: 07/16/2024 07:37 Note Text: Scan on 07/15/2024 11:41 AM by Irma Alvarado PA-C: Chemistry [facility] 07-16-2024 History of Presen t illness Narrative Scan on 07/15/2024 11:41 AM by Irma Alvarado PA-C: Chemistry documented in this encounter [facility] 07-13-2024 Note HNO ID: [id number] Author: KATRINA MACE MA Service: ? Author Type: Tube Wrapper Type: Progress Notes Filed: 07/13/2024 16:16 Note Text: Scan on 07/13/2024 8:37 AM by Irma Alvarado PA-C: Miguel Mace MA [facility] 07-13-2024 History of Presen t illness Narrative Scan on 07/13/2024 8:37 AM by ProviderIrma PA-C: Chemistry Katrina Mace MA documented in this encounter [facility] 07-13-2024 Telephone encounter Note Pt notified. Referral, Demo, faxed. Esha Pozo MA [facility] 07-13-2024 Miscellaneous Notes Pt notified. Referral, Demo, faxed. Esha Pozo MA Referral ready to be faxed and can be notified. Spouse calls to request an updated referral to podiatry for Dr. Lane Rojas with [facility] d/t it being a new year. Pended referral as previously ordered. Please fax to [phone]. Spouse (Pat) also requests a call once referral has been placed at [phone]. Bianca Wahl RN documented in this encounter [facility] 07-13-2024 Note HNO ID: [id number] Author: RJ MENARD LPN Service: ? Author Type: LICENSED NURSE Type: Progress Notes Filed: 07/13/2024 07:27 Note Text: Scan on 07/13/2024 7:11 AM by ProviderIrma PA-C: Chemistry Scan on 07/13/2024 6:36 AM by ProviderIrma PAFidelinaC: Hematology [facility] 07-13-2024 History of Presen t illness Narrative Scan on 07/13/2024 7:11 AM by ProviderIrma PA-C: Chemistry Scan on 07/13/2024 6:36 AM by Provider, VICTORINA Solis: Hematology documented in this encounter [facility] 07-12-2024 Telephone encounter Note Referral ready to be faxed and can be notified. [facility] 07-11-2024 Telephone encounter Note Spouse calls to request an updated referral to podiatry for Dr. [facility] Rojas with [facility] d/t it being a new year. Pended referral as previously ordered. Please fax to [phone]. Spouse (Pat) also requests a call once referral has been placed at [phone]. Bianca Wahl RN [facility] 06-27-2024 Telephone encounter Note Pt returned call and given provider's message below with verbalized understanding. Pt reports he is currently taking 2000 international unit(s) Vit D daily and agreeable to increase to 4000 international unit(s) daily. [facility] 06-27-2024 Miscellaneous Notes Pt returned call and given provider's message below with verbalized understanding. Pt reports he is currently taking 2000 international unit(s) Vit D daily and agreeable to increase to 4000 international unit(s) daily. Left vm for patient to return call to nurse for provider's message. Let patient know his Prostate lab was ok. His Vit D is low. See if he is still taking Vit D 2000 international unit(s) 's a day. If not needs to restart. If he is taking it have him increase to 4,000 international unit(s) 's a day Scan on 06/24/2024 7:36 AM by ProviderIrma PA-C: Chemistry Scan on 06/25/2024 8:14 AM by ProviderIrma PA-C: Chemistry Please review results and advise. Katrina Mace MA documented in this encounter [facility] 06-27-2024 Telephone encounter Note Left vm for patient to return call to nurse for provider's message. [facility] 06-26-2024 Telephone encounter Note Let patient know his Prostate lab was ok. His Vit D is low. See if he is still taking Vit D 2000 international unit(s) 's a day. If not needs to restart. If he is taking it have him increase to 4,000 international unit(s) 's a day [facility] 06-26-2024 Telephone encounter Note Scan on 06/24/2024 7:36 AM by ProviderIrma PA-C: Chemistry Scan on 06/25/2024 8:14 AM by ProviderIrma PA-C: Chemistry Please review results and advise. Katrina Mace MA [facility] 06-23-2024 Instructions Alo Avina MD - 06/23/2024 8:09 AM EST Screening schedule The following prevention plan is recommended: BP Controlled (<130/80) due on 05/17/2022 Advance Directive Discussion due on 07/08/2023 LDL Cholesterol due on 11/29/2023 HbA1C due on 03/05/2024 Covid-19 Vaccine() due on 05/25/2024 Diabetic Foot Exam due on 06/18/2024 WHAT YOU CAN DO TO PREVENT FALLS Many falls can be prevented. By making some changes, you can lower your chances of falling. Four things YOU can do to prevent falls for you* and your caregiver 1. Begin a regular exercise program Exercise is one of the most important ways to lower your chances of falling. It makes you stronger and helps you feel better. Exercises that improve balance and coordination (like Rell Chi) are the most helpful. Lack of exercise leads to weakness and increases your chances of falling. Ask your doctor or health care provider about the best type of exercise program for you. 2. Have your health care provider review your medicines Have your doctor or pharmacist review all the medicines you take, even [id number] medicines. As you get older, the way medicines work in your body can change. Some medicines, or combinations of medicines, can make you sleepy or dizzy and can cause you to fall. 3. Have your vision checked Have your eyes checked by an eye doctor at least once a year. You may be wearing the wrong glasses or have a condition like glaucoma or cataracts that limits your vision. Poor vision can increase your chances of falling. 4. Make your home safer About half of all falls happen at home. To make your home safer: Remove things you can trip over (like papers, books, clothes, and shoes) from stairs and places where you walk. Remove small throw rugs or use double-sided tape to keep the rugs from slipping. Keep items you use often in cabinets you can reach easily without using a step stool. Have grab bars put in next to your toilet and in the tub or shower. Use non-slip mats in the bathtub and on shower floors. Improve the lighting in your home. As you get older, you need brighter lights to see well. Hang light-weight curtains or shades to reduce glare. Have handrails and lights put in on all staircases. Wear shoes both inside and outside the house. Avoid going barefoot or wearing slippers. For more information, contact: Centers for Disease Control and Prevention www.cdc.gov/injury * This information may not apply if you have certain medical conditions. documented in this encounter [facility] 06-23-2024 History of Presen t illness Narrative Images from the original note were not included. Rodri Gale is a 68 year old male here for a Medicare wellness visit. Medicare Health Risk Assessment General Health Good Exercise: Minutes/Day 30 min Exercise: Days/Week 5 days Alcohol: Daily Use Never Alcohol: Drinks/Day Patient does not drink Alcohol: 6 or more drinks Never Feel off balance No Concerns: Teeth/Dentures No Concerns: Sexual function No Troubled by feelings None of the above Frequency: Eating healthy diet Nearly every day ADLs requiring help None of the above Safety precautions in home/vehicle No Smoke, vape, chews tobacco No Difficulty hearing No Difficulty seeing No Current Providers Specialists: I have reviewed specialist-related care of the patient in the medical record. Current care team: Patient Care Team: Alo Avina MD as PCP - General (Family Medicine) Judd Dey MD (Internal Medicine) Keri Day APRN.IMPREGNATOR as Crane Ladle Person (Family Medicine) Crystal Nation PA-C as Crane Ladle Person (Family Medicine) Claribel Devi: Endo Optho Dr. Rojas: Podiatry. Dr. Bravo (renal) Medical/Family history review Reviewed and updated problem list, medical/surgical/family/social history, medications, and allergies. Opioid use review Opioid Medications (last 90 days) No data to display Anxiety/Depression screening PHQ-2 Score: 0 (Lower risk for depression) Recommendation: no further intervention at this time Cognitive screening Score: 5 Cognitive screening reviewed and No further action needed (score 3-5). Functional Observation Was the patient's Timed Up & Go test unsteady or >= 12 seconds? No Advance Care Planning Surrogate decision maker documented and/or advance directives scanned in chart Measurements BP 120/70 Pulse (!) 56 Resp 16 Ht 179.1 cm (5' 10.5) Wt 86.2 kg (190 lb) BMI 26.88 kg/m Vision Screening: Follows with optometry/ophthalmology Assessment/Plan Medicare annual wellness visit, subsequent (Z00.00) - Counseled on healthy diet and regular exercise - Fall avoidance information provided - Personalized prevention plan provided See below Chief Complaint Patient presents with: Medicare Wellness Exam HPI Rodri Gale is a 68 year old male who presents here today for Chronic Medical Conditions. and Medicare Annual Visit. Patient with hx of HTN, DM2, hyperlipidemia, tremor, anemia, renal transplant, BPH, ED and those as below. Patient had COVID 03/30/2024 and flu shot 04/12/2024 Recent A1C - 6.4% - see scanned documents Patient Claribel Anatoliy - Endocrinology last visit 04/2024 Patient sees Ophthalmology - last visit 03/2024 Patient has been doing ok. No new issues or concerns. Past medical history, appointments, medications, allergies reviewed. 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, with long-term current use of insulin ([facility]) 09/20/2016 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 disease, with long-term current use of insulin ([facility]) 08/21/2019 Vitamin D deficiency 07/31/2017 Witnessed episode of apnea 11/23/2019 Previous Surgical History PAST SURGICAL HISTORY Procedure Laterality Date COLONOSCOPY FLX DX W/COLLJ SPEC WHEN PFRMD 09/30/2017 [facility]-Steph Espino--Repeat in 3 years-2020 FISTULA Left 09/11/2017 Radiocephalic arteriovenous fistula creation--[facility]--Steph Espino PAST SURGICAL HISTORY OF 06/07/2015 right grade II Open distal radius and ulnar shaft fracture PAST SURGICAL HISTORY OF Left 12/2022 right partial 5th metatarsal removal and 5th digit. PROSTATE SURGERY HX REM LESION TRUNK,ARM, LEG <0.5 CM 05/07/2007 Exc. piero cyst upper mid back Family History FAMILY HISTORY Problem Relation Age of Onset Diabetes Mother Hypertension Mother Heart Mother CT other (lung cancer) Mother bone metastasis Diabetes Father other (BPH) Father other (pancreatic cancer) Father Diabetes Brother Diabetes Brother Patient Allergies ALLERGIES Allergen Reactions Bactrim [Sulfametho* Hives Metformin Rash Lipitor [Atorvastat* Other: See Comments myalgia Norvasc [Amlodipine* Swelling Current Medications Current Outpatient Medications on File Prior to Visit Medication Sig labetalol (TRANDATE) 100 mg tablet Take 1.5 tablets by mouth two times a day. FARXIGA 10 mg tablet Take 10 mg by mouth once daily. lisinopril (ZESTRIL) 5 mg tablet Take 5 mg by mouth once daily. NIFEdipine ER (PROCARDIA XL) 30 mg 24 hr tablet Take 1 tablet by mouth once daily. rosuvastatin (CRESTOR) 10 mg tablet Take 1 tablet by mouth once daily. finasteride (PROSCAR) 5 mg tablet Take 1 tablet by mouth once daily. Insulin [place], Disposable, (BD ULTRAFINE III MINI PEN) 31 gauge x 3/16 use four times/day blood sugar diagnostic (TRUE METRIX GLUCOSE TEST STRIP) test strip Use as instructed - Test blood sugar three times daily. E11.9 Insulin: yes insulin glargine (LANTUS SOLOSTAR U-100 INSULIN) 100 unit/mL (3 mL) INJECT 25 Units at bedtime insulin aspart U-100 (NOVOLOG FLEXPEN U-100 INSULIN) 100 unit/mL (3 mL) Inject 4 units with breakfast, use 6 units with lunch and dinner. PLUS SLIDING SCALE #1 (based on pre meal blood sugar) TDD~40 Cholecalciferol, Vitamin D3, 50 mcg (2,000 unit) cap Take by mouth. OTC - take one tablet daily tacrolimus ER (ENVARSUS XR) 1 mg tablet Take 1 tablet by mouth once daily. mycophenolate sodium DR (MYFORTIC) 360 mg TbEC Take 720 mg by mouth twice daily. aspirin, enteric coated (ASPIRIN, ENTERIC COATED) 81 mg EC tablet Take 81 mg by mouth once daily. Lancets (ONE TOUCH DELICA) lancets Test blood sugar(s) 4 daily. Dx: 250.02 Insulin: Yes No current facility-administered medications on file prior to visit. Social History Social History Tobacco Use Smoking status: Former Current packs/day: 1.00 Average packs/day: 1 pack/day for 6.0 years (6.0 ttl pk-yrs) Types: Cigarettes Smokeless tobacco: Never Tobacco comments: quit 1969's Vaping Use Vaping status: Never Used Substance Use Topics Alcohol use: Not Currently Comment: RARE Drug use: No Review of [...] of breath CARDIOVASCULAR: Negative for chest pain, increased leg swelling, hypertension, CHF or palpitations GI: No nausea, vomiting, or diarrhea, No heartburn or reflux symptoms, and no blood : No history of dysuria, frequency or incontinence MUSCULOSKELETAL: Negative for new or changes in his typical joint pain or swelling, back pain or muscle pain SKIN: Negative for lesions, rash, and itching PSYCH: Negative for sleep disturbance, mood disorder and recent psychosocial stressors HEMATOLOGY/LYMPHOLOGY: Negative for prolonged bleeding, bruising easily or swollen nodes ENDOCRINE: Negative for cold or heat intolerance. On occasional will have symptoms of low BS's NEURO: No history of headaches, syncope, paralysis, seizures or increased tremors EXAM: BP 120/70 Pulse (!) 56 Resp 16 Ht 179.1 cm (5' 10.5) Wt 86.2 kg (190 lb) BMI 26.88 kg/m Last 5 Encounter Wt Readings: Date: Wt: 06/23/2024 86.2 kg (190 lb) 04/29/2024 88.6 kg (195 lb 6.4 oz) 01/20/2024 87.5 kg (193 lb) 12/18/2023 88.9 kg (196 lb) 12/11/2023 87.9 kg (193 lb 12.8 oz) General Appearance: Well appearing, alert, in no acute distress, well-hydrated, well nourished.. Skin: Skin color, texture, turgor normal, no suspicious rashes or lesions. Head: Normocephalic, no masses, lesions, tenderness or abnormalities. Eyes: Anicteric sclera. Pupils are equally round and reactive to light. Extraocular movements are intact. . Ears: External ears, TM's normal, canals clear. Nose/Sinuses: Nares normal, septum midline, mucosa normal, no drainage or sinus tenderness. Oropharynx: Lips, mucosa, and tongue normal, teeth and gums normal, oropharynx normal. Neck: Supple, no adenopathy; thyroid symmetric, normal size, no bruits. Lungs: Lungs clear to auscultation. No wheezing, rhonchi, rales.. Heart: RRR without murmur, gallop, or rubs. No ectopy. Abdomen: Normal abdominal exam, Abdomen soft, non-tender. Bowel sounds normal. No masses, organomegaly. Extremities: No deformities, edema, skin discoloration, Good capillary refill. . Musculoskeletal: Muscular strength intact, No joint swelling, deformity, or tenderness. Peripheral Pulses: Normal. Neurologic: Gait normal. Reflexes normal and symmetric. Sensation to light touch and crainal nerves 2-12 intact.. Genitalia: Normal, Penis normal. No urethral discharge. Scrotum normal to palpation. No hernia.. Rectal: Normal exam. Prostate enlarged with smooth firm capsule. Health Maintenance List BP Controlled (<130/80) due on 05/17/2022 Advance Directive Discussion due on 07/08/2023 LDL Cholesterol due on 11/29/2023 HbA1C due on 03/05/2024 Covid-19 Vaccine() due on 05/25/2024 Diabetic Foot Exam due on 06/18/2024 Serum Creatinine due on 11/06/2024 Depression Screening due on 01/19/2025 Anxiety Screening due on 01/19/2025 Dilated Retinal Exam due on 03/17/2025 Annual PCP Team Chronic Disease Visit due on 06/23/2025 DTaP,Tdap,Td Vaccine(6 - Td or Tdap) due on 01/24/2026 Colorectal Cancer Screening due on 11/03/2027 Prostate Cancer Screening Discussion due on 11/29/2027 Abdominal Aortic Aneurysm Screening Completed Influenza Vaccine Completed RSV Vaccine Completed Hepatitis C Screening Completed Shingrix Vaccine Completed Pneumococcal Vaccine: 50+ Completed HPV Vaccine Aged Out Urine Albumin:Creatinine Ratio Discontinued Data reviewed Latest Ref Rng 06/16/2024 NA 136 - 145 mmol/L 144 (E) K 3.5 - 5.1 mmol/L 4.2 (E) Chloride 98 - 107 MEQ/L 115 ! (E) CO2 21 - 32 MEQ/L 24.0 (E) Glucose 74 - 106 MG/DL 130 ! (E) BUN 7 - 18 MG/DL 26 ! (E) Creatinine 0.6 - 1.3 MG/DL 1.33 ! (E) GFR mL/MIN 57 (E) GFR AFR AMER mL/MIN 69 (E) Total Protein 6.4 - 8.2 gm/dL 6.8 (E) Albumin 3.2 - 4.6 gm/dL 3.9 (E) Calcium 8.5 - 10.1 mg/dL 9.3 (E) Bili Total 0.2 - 1 mg/dL 0.30 (E) AST 8 - 37 U/L 20 (E) ALT (SGPT) 12 - 78 U/L 18 (E) Alk Phos Total 45 - 117 U/L 57 (E) Cholesterol, Total 200 159 (E) Triglyceride 150 160 ! (E) HDL CHOLESTEROL 40 37 ! (E) LDL CHOLESTEROL 100 90 (E) Microalbumin, Random urine 727 (E) Creatinine Urine 100 (E) Albumin/Creat Ratio 727 (E) Hemoglobin A1C 0 - 5.7 % 6.4 ! (E) Legend: ! Abnormal (E) External lab result A/P ASSESSMENT/PLAN: 1. Medicare annual wellness visit, subsequent - ICD9: V70.0, ICD10: Z00.00 (primary diagnosis) - Counseled on healthy diet and regular exercise - Discussed need for and benefit of weight loss. BMI 26.88 kg/(m^2) - Follow up for annual exam in one year 2. 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 disease, with long-term current use of insulin (HCC) - ICD9: 250.40, 585.2, V58.67, ICD10: E11.22, N18.2, Z79.4 - Controlled - Continue current medications - Counseled on healthy diet and regular exercise - Discussed need for and benefit of weight loss. BMI 26.88 kg/(m^2) - cont management through Endo Check - COMPLETE BLOOD COUNT AND DIFFERENTIAL 3. 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 Diabetes mellitus type 2 with neurological manifestations (HCC) - ICD9: 250.60, ICD10: E11.49 - stable no changes. 6. Diabetic eye exam (HCC) - ICD9: V72.0, 250.00, ICD10: Z01.00, E11.9 - up to date and follows with optho. 7. Essential hypertension, benign - ICD9: 401.1, ICD10: I10 - Controlled - Continue current medications - Recommend home blood pressure monitoring, to bring results to next visit - Encouraged sodium restriction, DASH or Mediterranean diet - Recommend regular aerobic exercise - Discussed need for and benefit of weight loss. BMI 26.88 kg/(m^2) 8. Hyperlipidemia, mixed - ICD9: 272.2, ICD10: E78.2 - Controlled - Continue current medications - Counseled on healthy diet and regular exercise - Discussed need for and benefit of weight loss. BMI 26.88 kg/(m^2) 9. 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) - ICD9: 249.60, 357.2, ICD10: E13.40 - stable no changes. 10. 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 - ICD9: 285.21, 585.2, ICD10: N18.2, D63.1 Check - COMPLETE BLOOD COUNT AND DIFFERENTIAL - follows with renal. 11. Essential tremor - ICD9: 333.1, ICD10: G25.0 - stable 12. Restless leg syndrome - ICD9: 333.94, ICD10: G25.81 - stable 13. Vitamin D deficiency - ICD9: 268.9, ICD10: E55.9 Check - VITAMIN D 25 HYDROXY 14. Benign prostatic hyperplasia with nocturia - ICD9: 600.01, 788.43, ICD10: N40.1, R35.1 Cont - FINASTERIDE 5 MG TABLET 15. Advance directive discussed with patient - ICD9: V65.49, ICD10: Z71.89 - up to date 16. Prostate disorder - ICD9: 602.9, ICD10: N42.9 Check - PROSTATE-SPECIFIC ANTIGEN DIAGNOSTIC 17. Diabetic foot (HCC) - ICD9: 250.80, ICD10: E11.8 - sees podiatry. Requested Prescriptions Signed Prescriptions Disp Refills finasteride (PROSCAR) 5 mg tablet 90 tablet 1 Sig: Take 1 tablet by mouth once daily. rosuvastatin (CRESTOR) 10 mg tablet 90 tablet 1 Sig: Take 1 tablet by mouth once daily. F/u in a year or sooner if needed. I spent a total of 40 minutes on the date of the service which included preparing to see the patient, [id number] patient care, completing clinical documentation, performing a medically appropriate examination, counseling and educating the patient/family/caregiver and ordering medications, tests, or procedures. Alo Avina MD The sensitive examination was discussed with the Patient or Patient's Authorized Human Resource Adviser. As applicable, any other physician, advance practice provider, medical student, or other health professional student that will be observing or involved in the sensitive examination for educational or training purposes was discussed with the Patient or Authorized Human Resource Adviser. The Patient or Authorized Human Resource Adviser has agreed to proceed with the sensitive examination. (Sensitive examination includes inspection and/or palpation of the breasts, pelvis, prostate and anorectal regions) documented in this encounter [facility] 06-23-2024 Note HNO ID: [id number] Author: ALO AVINA MD Service: ? Author Type: Physician Type: Progress Notes Filed: 06/23/2024 13:49 Note Text: Rodri Gale is a 68 year old male here for a Medicare wellness visit. Medicare Health Risk Assessment General Health Good Exercise: Minutes/Day 30 min Exercise: Days/Week 5 days Alcohol: Daily Use Never Alcohol: Drinks/Day Patient does not drink Alcohol: 6 or more drinks Never Feel off balance No Concerns: Teeth/Dentures No Concerns: Sexual function No Troubled by feelings None of the above Frequency: Eating healthy diet Nearly every day ADLs requiring help None of the above Safety precautions in home/vehicle No Smoke, vape, chews tobacco No Difficulty hearing No Difficulty seeing No Current Providers Specialists: I have reviewed specialist-related care of the patient in the medical record. Current care team: Patient Care Team: Alo Avina MD as PCP - General (Family Medicine) Judd Dey MD (Internal Medicine) Keri Day APRN.CNP as [employer] Ladle Person (Family Medicine) Crystal Nation PA-C as [employer] Lad[employer] Person (Family Medicine) Claribel Devi: Endo Optho Dr. Rojas: Podiatry. Dr. Bravo (renal) Medical/Family history review Reviewed and updated problem list, medical/surgical/family/social history, medications, and allergies. Opioid use review Opioid Medications (last 90 days) No data to display Anxiety/Depression screening PHQ-2 Score: 0 (Lower risk for depression) Recommendation: no further intervention at this time Cognitive screening Score: 5 Cognitive screening reviewed and No further action needed (score 3-5). Functional Observation Was the patient's Timed Up AND Go test unsteady or >= 12 seconds? No Advance Care Planning Surrogate decision maker documented and/or advance directives scanned in chart Measurements BP 120/70 Pulse (!) 56 Resp 16 Ht 179.1 cm (5' 10.5) Wt 86.2 kg (190 lb) BMI 26.88 kg/m? Vision Screening: Follows with optometry/ophthalmology Assessment/Plan Medicare annual wellness visit, subsequent (Z00.00) - Counseled on healthy diet and regular exercise - Fall avoidance information provided - Personalized prevention plan provided See below Chief Complaint Patient presents with: Medicare Wellness Exam HPI Rodri Gale is a 68 year old male who presents here today for Chronic Medical Conditions. and Medicare Annual Visit. Patient with hx of HTN, DM2, hyperlipidemia, tremor, anemia, renal transplant, BPH, ED and those as below. Patient had COVID 03/30/2024 and flu shot 04/12/2024 Recent A1C - 6.4% - see scanned documents Patient Claribel Anatoliy - Endocrinology last visit 04/2024 Patient sees Ophthalmology - last visit 03/2024 Patient has been doing ok. No new issues or concerns. Past medical history, appointments, medications, allergies reviewed. 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 [facility] 06-17-2024 Note HNO ID: [id number] Author: KATRINA MACE MA Service: ? Author Type: Tube Wrapper Type: Progress Notes Filed: 06/17/2024 13:39 Note Text: Scan on 06/16/2024 8:15 AM by Irma Alvarado PA-C: Chemistry Scan on 06/16/2024 9:17 AM by Irma Alvarado PA-C: Chemistry Scan on 06/16/2024 8:09 PM by Irma Alvarado PA-C: Miguel Mace MA [facility] 06-17-2024 History of Presen t illness Narrative Scan on 06/16/2024 8:15 AM by Irma Alvarado PA-C: Chemistry Scan on 06/16/2024 9:17 AM by Irma Alvarado PA-C: Chemistry Scan on 06/16/2024 8:09 PM by Irma Alvarado PA-C: Miguel Mace MA documented in this encounter [facility] 06-15-2024 Telephone encounter Note Patients dropped off [employer] non formulary notice she received in mail. She would like provider to to consider switching to Novolog units-100 Insulin Aspart subcutaneous solution or Novolog Flexpen units-100 insulin aspart subcutaneous as per notice. [facility] 06-15-2024 Miscellaneous Notes Patients dropped off [employer] non formulary notice she received in mail. She would like provider to to consider switching to Novolog units-100 Insulin Aspart subcutaneous solution or Novolog Flexpen units-100 insulin aspart subcutaneous as per notice. documented in this encounter [facility] 06-05-2024 Telephone encounter Note Patient's calling and requesting patient's active lab orders be faxed to [facility] where patient will have them completed. Faxed as requested. Clarita Thompson RN [facility] 06-05-2024 Miscellaneous Notes Patient's calling and requesting patient's active lab orders be faxed to [facility] where patient will have them completed. Faxed as requested. Clarita Thompson RN documented in this encounter [facility] 06-05-2024 Telephone encounter Note The patient has been identified by name and date of : Yes Caregiver verified no other encounters exist for this prescription request: Yes Caregiver confirmed with patient/requestor that no other refills are due, in the near future, with this provider at this time: Yes The last office visit in the department: 01/20/2024 Does the patient have a future office visit with this provider/department: Yes 06/23/2024 Requested Prescriptions Pending Prescriptions Disp Refills labetalol (TRANDATE) 100 mg tablet 270 tablet 1 Sig: Take 1.5 tablets by mouth two times a day. Clarita Thompson RN [facility] 06-05-2024 Miscellaneous Notes The patient has been identified by name and date of : Yes Caregiver verified no other encounters exist for this prescription request: Yes Caregiver confirmed with patient/requestor that no other refills are due, in the near future, with this provider at this time: Yes The last office visit in the department: 01/20/2024 Does the patient have a future office visit with this provider/department: Yes 06/23/2024 Requested Prescriptions Pending Prescriptions Disp Refills labetalol (TRANDATE) 100 mg tablet 270 tablet 1 Sig: Take 1.5 tablets by mouth two times a day. Clarita Thompson RN documented in this encounter [facility] 05-20-2024 Note HNO ID: [id number] Author: RJ MENARD LPN Service: ? Author Type: LICENSED NURSE Type: Progress Notes Filed: 05/20/2024 09:04 Note Text: Scan on 05/19/2024 8:42 PM by ProviderIrma PA-C: Consultation - Ophthalmology [facility] 05-20-2024 History of Presen t illness Narrative Scan on 05/19/2024 8:42 PM by ProviderIrma PA-C: Consultation - Ophthalmology documented in this encounter [facility] 04-29-2024 History of Presen t illness Narrative OFFICE VISIT PROGRESS NOTE RACHELE Gale is a 68 year old male who presents today for blood sugar review. HPI Diagnosed with diabetes mellitus type II, ~ 1997 Hx of dialysis ~ 2 years Patient sts kidney issues are not secondary to his diabetes [place] it was related to medication overdose (BP meds) Hx of Kidney tx 10/22/2019 Last endocrine OV 12/11/2023 Some elements copied from my note 12/11/2023 which have been updated where appropriate, and [...] some juice Using insulins as per below HPI 12/11/2023 Pt reports doing well Sugars have been well controlled HPI 04/29/2024 Patient was due for ENDO f/u in Jun with labs, but outside provider started him on FARXIGA, they had questions regarding blood sugars with new medication from another provider. Nephrology started patient on Farxiga 10 mg and lisinopril 5 mg CURRENT DM MEDS NOVOLOG 4-6-6 plus SS#1 LANTUS 25 units daily FARXIGA 10 mg 1 tab daily (started by nephro 04/28/2024) Previously on METFORMIN - sts allergic, itching (on allergy list) SMBG Type of Monitor: Other Frequency of Monitoring: times a day BG Values: Breakfast 103-134 Lunch: 86-147 Dinner: 106-168 Bed-time: Values over past week: Highest 168 Lowest 86 Hypoglycemia: no Diet: Counts Carbs Exercise: walking everyday for 4k steps, some days will double steps DM REVIEW OF SYSTEMS Last Eye Exam : 12/2023 q 4 months, injections (retinopathy) L eye scheduled again May 2024 w retinal providers Last Podiatry Exam: declined Cardiorespiratory: negative, denies chest pain, pressure Claudication: no Dyslipidemia: Yes, controlled on medication High Blood Pressure: Yes, controlled on medication CURRENT LABS OUTSIDE LABS, completed in OCT, however, NO A1C information on labs. Ordered by another outside provider PAST MEDICAL HISTORY Diagnosis Date Advance directive discussed with patient 11/16/2021 Discussed 11/2021 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 07/12/2017 BMI 32.0-32.9,adult BPH (benign prostatic hyperplasia) 03/06/2012 Chronic pain of right knee 12/05/2018 Diabetes mellitus type 2 with neurological manifestations ([facility]) 02/13/2013 Diabetic eye exam ([facility]) 10/09/2021 Last done 10/09/2021 [facility] Diabetic ulcer of toe of right foot associated with type 2 diabetes mellitus, limited to breakdown of skin ([facility]) 12/05/2018 Erectile dysfunction 02/24/2010 Essential hypertension, benign Essential tremor 09/20/2016 Ex-smoker 05/17/2021 Fistula 12/20/2017 left forearm radial to cephalic ateriovenous Hearing loss 09/10/2012 Hyperlipidemia, mixed Living will in place 11/16/2021 DPA; Reginald (son) Medicare annual wellness visit, subsequent 11/16/2021 Medicare Part B: 01/05/2018, Last done: 11/16/2021 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 ([facility]) 05/17/2021 Osteoarthritis of left knee 02/16/2011 Personal history of nicotine dependence Renal transplant recipient 11/23/2019 Restless leg syndrome 12/05/2018 Right rotator cuff tear 11/16/2021 Treated with PHYSICAL THERAPY. 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, with long-term current use of insulin ([facility]) 09/20/2016 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 disease, with long-term current use of insulin ([facility]) 08/21/2019 Vitamin D deficiency 07/31/2017 Witnessed episode of apnea 11/23/2019 PAST SURGICAL HISTORY Procedure Laterality Date COLONOSCOPY FLX DX W/COLLJ SPEC WHEN PFRMD 09/30/2017 [facility] Espino--Repeat in 3 years-2020 FISTULA Left 09/11/2017 Radiocephalic arteriovenous fistula creation--[facility]--Steph Espino PAST SURGICAL HISTORY OF 06/07/2015 right grade II Open distal radius and ulnar shaft fracture PAST SURGICAL HISTORY OF Left 12/2022 right partial 5th metatarsal removal and 5th digit. PROSTATE SURGERY HX REM LESION TRUNK,ARM, LEG <0.5 CM 05/07/2007 Exc. piero cyst upper mid back FAMILY HISTORY Problem Relation Age of Onset Diabetes Mother Hypertension Mother Heart Mother CT other (lung cancer) Mother bone metastasis Diabetes Father other (BPH) Father other (pancreatic cancer) Father Diabetes Brother Diabetes Brother Social History Tobacco Use Smoking status: Former Current packs/day: 1.00 Average packs/day: 1 pack/day for 6.0 years (6.0 ttl pk-yrs) Types: Cigarettes Smokeless tobacco: Never Tobacco comments: quit 1970's Vaping Use Vaping status: Never Used Substance Use Topics Alcohol use: Not Currently Comment: RARE Drug use: No Current Outpatient Medications Medication Sig NIFEdipine ER (PROCARDIA XL) 30 mg 24 hr tablet Take 1 tablet by mouth once daily. rosuvastatin (CRESTOR) 10 mg tablet Take 1 tablet by mouth once daily. finasteride (PROSCAR) 5 mg tablet Take 1 tablet by mouth once daily. labetalol (TRANDATE) 100 mg tablet Take 1.5 tablets by mouth two times a day. Insulin [place], Disposable, (BD ULTRAFINE III MINI PEN) 31 gauge x 3/16 use four times/day blood sugar diagnostic (TRUE METRIX GLUCOSE TEST STRIP) test strip Use as instructed - Test blood sugar three times daily. E11.9 Insulin: yes insulin glargine (LANTUS SOLOSTAR U-100 INSULIN) 100 unit/mL (3 mL) INJECT 25 Units at bedtime insulin aspart U-100 (NOVOLOG FLEXPEN U-100 INSULIN) 100 unit/mL (3 mL) Inject 4 units with breakfast, use 6 units with lunch and dinner. PLUS SLIDING SCALE #1 (based on pre meal blood sugar) TDD~40 Cholecalciferol, Vitamin D3, 50 mcg (2,000 unit) cap Take by mouth. OTC - take one tablet daily tacrolimus ER (ENVARSUS XR) 1 mg tablet Take 1 tablet by mouth once daily. mycophenolate sodium DR (MYFORTIC) 360 mg TbEC Take 720 mg by mouth twice daily. aspirin, enteric coated (ASPIRIN, ENTERIC COATED) 81 mg EC tablet Take 81 mg by mouth once daily. Lancets (ONE [...] hypertension, CHF or palpitations PHYSICAL EXAMINATION: BP 130/76 Pulse (!) 59 Temp 36.8 C (98.3 F) (Temporal Artery) Ht 179.1 cm (5' 10.5) Wt 88.6 kg (195 lb 6.4 oz) SpO2 96% BMI 27.64 kg/m GENERAL: alert and appropriate, in no distress and well-hydrated, well nourished SKIN: no rash noted HEAD: normocephalic, no abnormality or lesion noted EYES: PERRL NECK: full ROM, no cervical LNs noted ACANTHOSIS: none noted EXTREMITIES: normal = no edema NEUROLOGIC: no obvious deficit ASSESSMENT: (E11.9, Z79.4) Diabetes mellitus treated with insulin (HCC) (primary encounter diagnosis) Comment: FARXIGA 10 mg started by nephro Patient and are anxious and concerned re: blood sugars and new med No changes at this time Patient is well controlled IF blood sugars well controlled, cont per current If lower in morning waking, reduce basal, if lower during the day, reduce prandial dosing F/U in October 2023 w labs Recommended diet: Low carbohydrate and Low saturated [...] consultants regarding his other medical problems. Plan: COMPREHENSIVE METABOLIC PANEL, LIPID PANEL, NONFASTING, ALBUMIN/CREATININE RATIO, URINE, HEMOGLOBIN A1C Claribel Cope CNP documented in this encounter [facility] 04-27-2024 Telephone encounter Note Prescription Refill Information The patient has been identified by name and date of : Yes Caregiver verified no other encounters exist for this prescription request: Yes Caregiver confirmed with patient/requestor that no other refills are due, in the near future, with this provider at this time: Yes The last office visit in the department: 12/2023 Does the patient have a future office visit with this provider/department: Yes 06/2024 Requested Prescriptions Pending Prescriptions Disp Refills NIFEdipine ER (PROCARDIA XL) 30 mg 24 hr tablet 90 tablet 1 Sig: Take 1 tablet by mouth once daily. Katrina Mace MA April 27, 2024 8:48 AM [facility] 04-27-2024 Miscellaneous Notes Prescription Refill Information The patient has been identified by name and date of : Yes Caregiver verified no other encounters exist for this prescription request: Yes Caregiver confirmed with patient/requestor that no other refills are due, in the near future, with this provider at this time: Yes The last office visit in the department: 12/2023 Does the patient have a future office visit with this provider/department: Yes 06/2024 Requested Prescriptions Pending Prescriptions Disp Refills NIFEdipine ER (PROCARDIA XL) 30 mg 24 hr tablet 90 tablet 1 Sig: Take 1 tablet by mouth once daily. Katrina Mace MA April 27, 2024 8:48 AM Prescription Refill Information The patient has been identified by name and date of : Yes Caregiver verified no other encounters exist for this prescription request: Yes Caregiver confirmed with patient/requestor that no other refills are due, in the near future, with this provider at this time: Yes The last office visit in the department: 01/20/2024 Does the patient have a future office visit with this provider/department: Yes Requested Prescriptions Pending Prescriptions Disp Refills NIFEdipine ER (PROCARDIA XL) 30 mg 24 hr tablet 90 tablet 1 Sig: Take 1 tablet by mouth once daily. MACO Saxena April 25, 2024 8:05 AM documented in this encounter [facility] 04-25-2024 Telephone encounter Note Prescription Refill Information The patient has been identified by name and date of : Yes Caregiver verified no other encounters exist for this prescription request: Yes Caregiver confirmed with patient/requestor that no other refills are due, in the near future, with this provider at this time: Yes The last office visit in the department: 01/20/2024 Does the patient have a future office visit with this provider/department: Yes Requested Prescriptions Pending Prescriptions Disp Refills NIFEdipine ER (PROCARDIA XL) 30 mg 24 hr tablet 90 tablet 1 Sig: Take 1 tablet by mouth once daily. MACO Saxena April 25, 2024 8:05 AM [facility] 04-21-2024 History of Presen t illness Narrative Scan on 04/20/2024 8:16 AM by ProviderIrma PA-C: Chemistry Scan on 04/20/2024 8:22 AM by ProviderIrma PA-C: Chemistry Katrina Mace MA documented in this encounter [facility] 04-10-2024 Telephone encounter Note Faxed. Katrina Mace MA [facility] 04-10-2024 Miscellaneous Notes Faxed. Katrina Mace MA Forms ready to be faxed. Received via fax orders for pt's diabetic shoes. Form placed on pcp's desk for review. Copy of ov with Crystal from 12/18/23 attached as well. Fax back to [facility] [place] [phone]. Rj Menard LPN documented in this encounter [facility] 04-10-2024 Telephone encounter Note Forms ready to be faxed. [facility] 04-10-2024 Telephone encounter Note Received via fax orders for pt's diabetic shoes. Form placed on pcp's desk for review. Copy of ov with Crystal from 12/18/23 attached as well. Fax back to [facility] [place] [phone]. Rj Menard LPN [facility] 03-24-2024 History of Presen t illness Narrative Scan on 03/23/2024 8:57 PM by Provider, VICTORINA Solis: Consultation - Ophthalmology documented in this encounter [facility] 03-02-2024 Telephone encounter Note Prescription Refill Information The patient has been identified by name and date of : Yes Caregiver verified no other encounters exist for this prescription request: Yes Caregiver confirmed with patient/requestor that no other refills are due, in the near future, with this provider at this time: Yes The last office visit in the department: 01/2024 Does the patient have a future office visit with this provider/department: Yes 06/2024 Requested Prescriptions Pending Prescriptions Disp Refills rosuvastatin (CRESTOR) 10 mg tablet 90 tablet 1 Sig: Take 1 tablet by mouth once daily. finasteride (PROSCAR) 5 mg tablet 90 tablet 1 Sig: Take 1 tablet by mouth once daily. Katrina Mace MA March 02, 2024 3:24 PM [facility] 03-02-2024 Miscellaneous Notes Prescription Refill Information The patient has been identified by name and date of : Yes Caregiver verified no other encounters exist for this prescription request: Yes Caregiver confirmed with patient/requestor that no other refills are due, in the near future, with this provider at this time: Yes The last office visit in the department: 01/2024 Does the patient have a future office visit with this provider/department: Yes 06/2024 Requested Prescriptions Pending Prescriptions Disp Refills rosuvastatin (CRESTOR) 10 mg tablet 90 tablet 1 Sig: Take 1 tablet by mouth once daily. finasteride (PROSCAR) 5 mg tablet 90 tablet 1 Sig: Take 1 tablet by mouth once daily. Katrina Mace MA March 02, 2024 3:24 PM Prescription Refill Information The patient has been identified by name and date of : Yes Caregiver verified no other encounters exist for this prescription request: Yes Caregiver confirmed with patient/requestor that no other refills are due, in the near future, with this provider at this time: Yes The last office visit in the department: 01/20/24 Does the patient have a future office visit with this provider/department: Yes Requested Prescriptions Pending Prescriptions Disp Refills rosuvastatin (CRESTOR) 10 mg tablet 90 tablet 1 Sig: Take 1 tablet by mouth once daily. finasteride (PROSCAR) 5 mg tablet 90 tablet 1 Sig: Take 1 tablet by mouth once daily. Mary Duggan March 02, 2024 2:49 PM documented in this encounter [facility] 03-02-2024 Telephone encounter Note Prescription Refill Information The patient has been identified by name and date of : Yes Caregiver verified no other encounters exist for this prescription request: Yes Caregiver confirmed with patient/requestor that no other refills are due, in the near future, with this provider at this time: Yes The last office visit in the department: 01/20/24 Does the patient have a future office visit with this provider/department: Yes Requested Prescriptions Pending Prescriptions Disp Refills rosuvastatin (CRESTOR) 10 mg tablet 90 tablet 1 Sig: Take 1 tablet by mouth once daily. finasteride (PROSCAR) 5 mg tablet 90 tablet 1 Sig: Take 1 tablet by mouth once daily. Mary Duggan March 02, 2024 2:49 PM [facility] 01-20-2024 History of Presen t illness Narrative Chief Complaint Patient presents with: Recheck: Blood pressure HPI Rodri Gale is a 68 year old male who presents here today for Above Complaints.. Home BP readings anywhere from 130-140s/60-70s. Patient states in mornings he typically has a 150/?. He has hx of DM2, CKD and kidney transplant, anemia, HTN and those as below. Past medical history, appointments, medications, allergies reviewed. 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, with long-term current use of insulin ([facility]) 09/20/2016 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 disease, with long-term current use of insulin ([facility]) 08/21/2019 Vitamin D deficiency 07/31/2017 Witnessed episode of apnea 11/23/2019 Previous Surgical History PAST SURGICAL HISTORY Procedure Laterality Date COLONOSCOPY FLX DX W/COLLJ SPEC WHEN PFRMD 09/30/2017 [facility]Steph Espino--Repeat in 3 years-2020 FISTULA Left 09/11/2017 Radiocephalic arteriovenous fistula creation--[facility]Steph Espino PAST SURGICAL HISTORY OF 06/07/2015 right grade II Open distal radius and ulnar shaft fracture PAST SURGICAL HISTORY OF Left 12/2022 right partial 5th metatarsal removal and 5th digit. PROSTATE SURGERY HX REM LESION TRUNK,ARM, LEG <0.5 CM 05/07/2007 Exc. piero cyst upper mid back Family History FAMILY HISTORY Problem Relation Age of Onset Diabetes Mother Hypertension Mother Heart Mother CT other (lung cancer) Mother bone metastasis Diabetes Father other (BPH) Father other (pancreatic cancer) Father Diabetes Brother Diabetes Brother Patient Allergies ALLERGIES Allergen Reactions Bactrim [Sulfametho* Hives Metformin Rash Lipitor [Atorvastat* Other: See Comments myalgia Norvasc [Amlodipine* Swelling Current Medications Current Outpatient Medications on File Prior to Visit Medication Sig labetalol (TRANDATE) 100 mg tablet Take 1.5 tablets by mouth two times a day. Insulin [place], Disposable, (BD ULTRAFINE III MINI PEN) 31 gauge x 3/16 use four times/day blood sugar diagnostic (TRUE METRIX GLUCOSE TEST STRIP) test strip Use as instructed - Test blood sugar three times daily. E11.9 Insulin: yes insulin glargine (LANTUS SOLOSTAR U-100 INSULIN) 100 unit/mL (3 mL) INJECT 25 Units at bedtime insulin aspart U-100 (NOVOLOG FLEXPEN U-100 INSULIN) 100 unit/mL (3 mL) Inject 4 units with breakfast, use 6 units with lunch and dinner. PLUS SLIDING SCALE #1 (based on pre meal blood sugar) TDD~40 NIFEdipine ER (PROCARDIA XL) 30 mg 24 [...] Take 1 tablet by mouth once daily. mycophenolate sodium DR (MYFORTIC) 360 mg TbEC Take 720 mg by mouth twice daily. aspirin, enteric coated (ASPIRIN, ENTERIC COATED) 81 mg EC tablet Take 81 mg by mouth once daily. Lancets (ONE TOUCH DELICA) lancets Test blood sugar(s) 4 daily. Dx: 250.02 Insulin: Yes No current facility-administered medications on file prior to visit. Social History Social History Tobacco Use Smoking status: Former Packs/day: 1.00 Years: 6.00 Additional pack years: 0.00 Total pack years: 6.00 Types: Cigarettes Smokeless tobacco: Never Tobacco comments: quit 1969' Vaping Use Vaping Use: Never used Substance Use Topics Alcohol use: Not Currently Comment: RARE Drug use: No Review of Symptoms REVIEW OF SYSTEMS GENERAL: No weight loss, malaise or fevers See above EXAM: BP 165/71 (BP Site: Right Arm, BP Position: Sitting, BP Cuff Size: Regular Adult) Pulse (!) 56 Temp 36.5 C (97.7 F) Resp 16 Wt 87.5 kg (193 lb) SpO2 97% BMI 27.30 kg/m General Appearance: Well appearing, alert, in no acute distress, well-hydrated, well nourished.. Health Maintenance List BP Controlled (<130/80) due on 05/17/2022 Covid-19 Vaccine( season) due on 07/02/2023 Advance Directive Discussion due on 07/08/2023 Behavioral Health Screening Never done LDL Cholesterol due on 11/29/2023 HbA1C due on 03/05/2024 Influenza Vaccine(1) due on 03/08/2024 Diabetic Foot Exam due on 06/18/2024 Dilated Retinal Exam due on 10/06/2024 Serum Creatinine due on 11/06/2024 Annual PCP Team Chronic Disease Visit due on 01/19/2025 DTaP,Tdap,Td Vaccine(6 - Td or Tdap) due on 01/24/2026 Colorectal Cancer Screening due on 11/03/2027 Prostate Cancer Screening Discussion due on 11/29/2027 Abdominal Aortic Aneurysm Screening Completed RSV Vaccine Completed Hepatitis C Screening Completed Shingrix Vaccine Completed Pneumococcal Vaccine: 65+ Completed HPV Vaccine Aged Out Urine Albumin:Creatinine Ratio Discontinued Data reviewed ASSESSMENT/PLAN: 1. Essential hypertension, benign - ICD9: 401.1, ICD10: I10 BPs have been borderline range. Given other health history, I would like to see a more consistently well controlled BP. Will have him continue to monitor and document home readings. Will get an opinion from his new traffic and transport planner on whether an Mio-I/ARB would be a good addition. Hesitant to increase labetalol due to pulse in 50s already. Patient and agreeable to plan as above. Discussed possible red flags and when to seek medical attention. Crystal Nation PA-C documented in this encounter [facility] 01-20-2024 Instructions Crystal Nation PA-C - 01/20/2024 7:54 AM EDT Blood pressure readings are borderline high. Continue to monitor at home. Document any high readings as well. See what the traffic and transport planner's opinion is when you see them. Would an MIO-inhibitor or ARB be a option for better blood pressure control? documented in this encounter [facility] 01-16-2024 Telephone encounter Note Spoke with and apt booked for 01-20-24. Heather Clifton LPN [facility] 01-16-2024 Miscellaneous Notes Spoke with and apt booked for 01-20-24. Heather Clifton LPN Left message for pt to contact office. Rj Menard LPN Home systolic Bp readings are slightly elevated. I would like a follow up visit scheduled so we can discuss options. Have them bring home cuff to visit. Thanks. Crystal Nation PA-C Pt's drops off pt's home bp readings. Rj Menard LPN 148/67 141/68 p 61 135/58 p 58 148/58 p 57 140/60 p 57 137/62 p 65 139/62 p 61 133/61 p 59 133/63 p 66 144/65 p 61 137/65 p 63 140/68 p 62 137/63 p 61 140/64 p 58 139/63 p 58 Left additional message for patient to contact office. Katrina Mace MA Left message for patient to contact office. Katrina Mace MA Called and left a detailed voicemail notifying patient of providers message. Clinic phone number was left for the patient to call back and answer the providers questions. Jazlyn rFeire, DEMETRIO Please ask for patient's home bp readings. documented in this encounter [facility] 01-16-2024 Telephone encounter Note Left message for pt to contact office. Rj Menard LPN [facility] 01-16-2024 Telephone encounter Note Home systolic Bp readings are slightly elevated. I would like a follow up visit scheduled so we can discuss options. Have them bring home cuff to visit. Thanks. Crystal Nation PA-C [facility] 01-16-2024 Telephone encounter Note Pt's drops off pt's home bp readings. Rj Menard LPN 148/67 141/68 p 61 135/58 p 58 148/58 p 57 140/60 p 57 137/62 p 65 139/62 p 61 133/61 p 59 133/63 p 66 144/65 p 61 137/65 p 63 140/68 p 62 137/63 p 61 140/64 p 58 139/63 p 58 [facility] 01-15-2024 Telephone encounter Note Left additional message for patient to contact office. Katrina Mace MA [facility] 01-10-2024 Telephone encounter Note Left message for patient to contact office. Katrina Mace MA [facility] 01-08-2024 Telephone encounter Note Called and left a detailed voicemail notifying patient of providers message. Clinic phone number was left for the patient to call back and answer the providers questions. Jazlyn Freire, RN [facility] 01-08-2024 Telephone encounter Note Please ask for patient's home bp readings. [facility] 12-18-2023 History of Presen t illness Narrative Chief Complaint Patient presents with: 6 Month Exam HPI Rodri Gale is a 68 year old male who presents here today for Chronic Medical Conditions.. Patient with hx of HTN, DM2, hyperlipidemia, tremor, anemia, renal transplant, BPH, ED and those as below. No specific concerns today Has had URI symptoms but improving. Past medical history, appointments, medications, allergies reviewed. 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, with long-term current use of insulin ([facility]) 09/20/2016 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 disease, with long-term current use of insulin ([facility]) 08/21/2019 Vitamin D deficiency 07/31/2017 Witnessed episode of apnea 11/23/2019 Previous Surgical History PAST SURGICAL HISTORY Procedure Laterality Date COLONOSCOPY FLX DX W/COLLJ SPEC WHEN PFRMD 09/30/2017 [facility]Steph Espino--Repeat in 3 years-2020 FISTULA Left 09/11/2017 Radiocephalic arteriovenous fistula creation--[facility]Steph Espino PAST SURGICAL HISTORY OF 06/07/2015 right grade II Open distal radius and ulnar shaft fracture PAST SURGICAL HISTORY OF Left 12/2022 right partial 5th metatarsal removal and 5th digit. PROSTATE SURGERY HX REM LESION TRUNK,ARM, LEG <0.5 CM 05/07/2007 Exc. piero cyst upper mid back Family History FAMILY HISTORY Problem Relation Age of Onset Diabetes Mother Hypertension Mother Heart Mother CT other (lung cancer) Mother bone metastasis Diabetes Father other (BPH) Father other (pancreatic cancer) Father Diabetes Brother Diabetes Brother Patient Allergies ALLERGIES Allergen Reactions Bactrim [Sulfametho* Hives Metformin Rash Lipitor [Atorvastat* Other: See Comments myalgia Norvasc [Amlodipine* Swelling Current Medications Current Outpatient Medications on File Prior to Visit Medication Sig Insulin [place], Disposable, (BD ULTRAFINE III MINI PEN) 31 gauge x 3/16 use four times/day blood sugar diagnostic (TRUE METRIX GLUCOSE TEST STRIP) test strip Use as instructed - Test blood sugar three times daily. E11.9 Insulin: yes insulin glargine (LANTUS SOLOSTAR U-100 INSULIN) 100 unit/mL (3 mL) INJECT 25 Units at bedtime insulin aspart U-100 (NOVOLOG FLEXPEN U-100 INSULIN) 100 unit/mL (3 mL) Inject 4 units with breakfast, use 6 units with lunch and dinner. PLUS SLIDING SCALE #1 (based on pre meal blood sugar) TDD~40 NIFEdipine ER (PROCARDIA XL) 30 mg 24 hr tablet Take 1 tablet by mouth once daily. rosuvastatin (CRESTOR) 10 mg tablet Take 1 tablet by mouth once daily. finasteride (PROSCAR) 5 mg tablet Take 1 tablet by mouth once daily. labetalol (TRANDATE) 100 mg tablet Take 1.5 tablets by mouth two times a day. Cholecalciferol, Vitamin D3, 50 mcg (2,000 unit) cap Take by mouth. OTC - take one tablet daily tacrolimus ER (ENVARSUS XR) 1 mg tablet Take 1 tablet by mouth once daily. mycophenolate sodium DR (MYFORTIC) 360 mg TbEC Take 720 mg by mouth twice daily. aspirin, enteric coated (ASPIRIN, ENTERIC COATED) 81 mg EC tablet Take 81 mg by mouth once daily. Lancets (ONE [...] pain, leg swelling, hypertension, CHF or palpitations NEURO: No history of headaches, syncope, paralysis, seizures or worsening tremors EXAM: BP 156/56 (BP Site: Right Arm, BP Position: Sitting, BP Cuff Size: Regular Adult) Pulse (!) 57 Temp 36.2 C (97.1 F) (Tympanic) Resp 18 Wt 88.9 kg (196 lb) SpO2 99% BMI 27.73 kg/m BP 162/66 Pulse (!) 55 Temp 36.2 C (97.1 F) (Tympanic) Resp 18 Wt 88.9 kg (196 lb) SpO2 99% BMI 27.73 kg/m General Appearance: Well appearing, alert, in no acute distress, well-hydrated, well nourished.. Neck: Supple, no adenopathy; thyroid symmetric, normal size, no bruits. Lungs: Lungs clear to auscultation. No wheezing, rhonchi, rales.. Heart: RRR without murmur, gallop, or rubs. No ectopy. Extremities: No deformities, edema, skin discoloration, clubbing or cyanosis. Good capillary refill. . Peripheral Pulses: Normal. Health Maintenance List BP Controlled (<130/80) due on 05/17/2022 Covid-19 Vaccine() due on 07/02/2023 Advance Directive Discussion due on 07/08/2023 Behavioral Health Screening Never done LDL Cholesterol due on 11/29/2023 HbA1C due on 03/05/2024 Diabetic Foot Exam due on 06/18/2024 Dilated Retinal Exam due on 10/06/2024 Serum Creatinine due on 11/06/2024 Annual PCP Team Chronic Disease Visit due on 12/17/2024 DTaP,Tdap,Td Vaccine(6 - Td or Tdap) due on 01/24/2026 Colorectal Cancer Screening due on 11/03/2027 Prostate Cancer Screening Discussion due on 11/29/2027 Abdominal Aortic Aneurysm Screening Completed Influenza Vaccine Completed RSV Vaccine Completed Hepatitis C Screening Completed Shingrix Vaccine Completed Pneumococcal Vaccine: 65+ Completed HPV Vaccine Aged Out Urine Albumin:Creatinine Ratio Discontinued Data reviewed ASSESSMENT/PLAN: 1. Essential hypertension, benign - ICD9: 401.1, ICD10: I10 (primary diagnosis) - Uncontrolled - Home blood pressure readings controlled - Continue current medications - Recommend home blood pressure monitoring, to bring results to next visit - Encouraged sodium restriction, DASH or Mediterranean diet - Recommend regular aerobic exercise - patient will update me in 2 weeks with home BP readings. 2. Hyperlipidemia, mixed - ICD9: 272.2, ICD10: E78.2 - Controlled - Continue current medications - Counseled on healthy diet and regular exercise 3. Diabetes mellitus type 2 with neurological manifestations (HCC) - ICD9: 250.60, ICD10: E11.49 - Controlled Cont with endo 4. 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 disease, with long-term current use of insulin (HCC) - ICD9: 250.40, 585.2, V58.67, ICD10: E11.22, N18.2, Z79.4 - eGFR: Stable - Counseled on avoiding NSAIDs, adequate hydration - cont with specialists 5. Renal transplant recipient - ICD9: V42.0, ICD10: Z94.0 Cont with specialists 6. 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 - ICD9: 285.21, 585.2, ICD10: N18.2, D63.1 - eGFR: Stable - Counseled on avoiding NSAIDs, adequate hydration 7. 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 Benign prostatic hyperplasia, unspecified whether lower urinary tract symptoms present - ICD9: 600.00, ICD10: N40.0 Stable. 6 months for medicare wellness. Labs prior. Crystal Nation PA-C documented in this encounter [facility] 12-11-2023 Telephone encounter Note Updated labs from (location)[facility] Date labs collected 12-04-23 Date scanned in chart 12-11-23. Sofía Nevarez Power Transformer Inspector II Endocrinology & Metabolism [place] F20-X [facility] 12-11-2023 Miscellaneous Notes Updated labs from (location)[facility] Date labs collected 12-04-23 Date scanned in chart 12-11-23. Sofía Nevarez Power Transformer Inspector II Endocrinology & Metabolism [place] F20-X documented in this encounter [facility] 12-11-2023 History of Presen t illness Narrative OFFICE VISIT PROGRESS NOTE RACHELE Gale is a 68 year old male who presents today for blood sugar review. HPI Diagnosed with diabetes mellitus type II, ~ 1997 Hx of dialysis ~ 2 years Patient sts kidney issues are not secondary to his diabetes [place] it was related to medication overdose (BP meds) Hx of Kidney tx 10/22/2019 Last endocrine OV 06/19/2023 Some elements copied from my note 06/19/2023 which have been updated where appropriate, and [...] some juice Using insulins as per below HPI 12/11/2023 Pt reports doing well Sugars have been well controlled CURRENT DM MEDS NOVOLOG 5-8-8 SS#1 (5-7 BF, 8-11 lunch and dinner) LANTUS 25 units daily Previously on METFORMIN - sts allergic, itching (on allergy list) SMBG Type of Monitor: Other Frequency of Monitoring: times a day BG Values: Breakfast:130-160 Lunch: 90-143 Dinner: 80-160 Bed-time: Values over past week: Highest 227 Lowest 67 Hypoglycemia: no Diet: Counts Carbs Exercise: walking everyday for 4k steps, some days will double steps DM REVIEW OF SYSTEMS Last Eye Exam : 05/2023 q 4 months, injections (retinopathy) L eye Last Podiatry Exam: declined Cardiorespiratory: negative, denies chest pain, pressure Claudication: no Dyslipidemia: Yes, controlled on medication High Blood Pressure: Yes, controlled on medication CURRENT LABS OUTSIDE LABS, completed PAST MEDICAL HISTORY Diagnosis Date Advance directive discussed with patient 11/16/2021 Discussed 11/2021 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 07/12/2017 BMI 32.0-32.9,adult BPH (benign prostatic hyperplasia) 03/06/2012 Chronic pain of right knee 12/05/2018 Diabetes mellitus type 2 with neurological manifestations (HCC) 02/13/2013 Diabetic eye exam (HCC) 10/09/2021 Last done 10/09/2021 [facility] Diabetic ulcer of toe of right [...] done: 11/16/2021 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 ([facility]) 05/17/2021 Osteoarthritis of left knee 02/16/2011 Personal history of nicotine dependence Renal transplant recipient 11/23/2019 Restless leg syndrome 12/05/2018 Right rotator cuff tear 11/16/2021 Treated with PHYSICAL THERAPY. 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, with long-term current use of insulin ([facility]) 09/20/2016 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 disease, with long-term current use of insulin ([facility]) 08/21/2019 Vitamin D deficiency 07/31/2017 Witnessed episode of apnea 11/23/2019 PAST SURGICAL HISTORY Procedure Laterality Date COLONOSCOPY FLX DX W/COLLJ SPEC [facility] FISTULA Left 09/11/2017 Radiocephalic arteriovenous fistula creation--[facility]Steph Espino PAST SURGICAL HISTORY OF 06/07/2015 right grade II Open distal radius and ulnar shaft fracture PAST SURGICAL HISTORY OF Left 12/2022 right partial 5th metatarsal removal and 5th digit. PROSTATE SURGERY HX REM LESION TRUNK,ARM, LEG <0.5 CM 05/07/2007 Exc. piero cyst upper mid back FAMILY HISTORY Problem Relation Age of Onset Diabetes Mother Hypertension Mother Heart Mother CT other (lung cancer) Mother bone metastasis Diabetes [...] FLEXPEN U-100 INSULIN) 100 unit/mL (3 mL) Inject 4 units with breakfast, use 6 units with lunch and dinner. PLUS SLIDING SCALE #1 (based on pre meal blood sugar) labetalol (TRANDATE) 100 mg tablet Take 1.5 tablets by mouth two times a day. blood sugar diagnostic (TRUE METRIX GLUCOSE TEST STRIP) test strip Use as instructed - Test blood sugar three times daily. E11.9 Insulin: yes insulin glargine (LANTUS SOLOSTAR U-100 INSULIN) 100 unit/mL (3 mL) INJECT 25 Units at bedtime Insulin [place], Disposable, (BD ULTRAFINE III MINI PEN) 31 gauge x 3/16 use four times/day Cholecalciferol, Vitamin D3, 50 mcg (2,000 unit) cap Take by mouth. OTC - take one tablet daily tacrolimus ER (ENVARSUS XR) 1 mg tablet Take 1 tablet by mouth once daily. mycophenolate sodium DR (MYFORTIC) 360 mg TbEC Take 720 mg by mouth twice daily. aspirin, enteric coated (ASPIRIN, ENTERIC COATED) 81 mg EC tablet Take 81 mg by mouth once daily. Lancets (ONE [...] hypertension, CHF or palpitations PHYSICAL EXAMINATION: BP 132/76 Pulse (!) 56 Temp 36.2 C (97.1 F) (Temporal Artery) Ht 179.1 cm (5' 10.5) Wt 87.9 kg (193 lb 12.8 oz) SpO2 97% BMI 27.41 kg/m GENERAL: alert and appropriate, in no distress and well-hydrated, well nourished SKIN: no rash noted HEAD: normocephalic, no abnormality or lesion noted EYES: PERRL NECK: full ROM, no cervical LNs noted ACANTHOSIS: none noted EXTREMITIES: normal = no edema NEUROLOGIC: no obvious deficit ASSESSMENT: (E11.9, Z79.4) Diabetes mellitus treated with insulin (HCC) (primary encounter diagnosis) Comment: excellent control for DM2. Will continue per current, no changes to insulin dosing at this time F/u in 6 mos ENDO Recommended diet: Low carbohydrate and Low saturated [...] consultants regarding his other medical problems. Plan: COMPREHENSIVE METABOLIC PANEL, LIPID PANEL, NONFASTING, ALBUMIN/CREATININE RATIO, URINE, HEMOGLOBIN A1C Claribel Cope CNP documented in this encounter [facility] 12-05-2023 History of Presen t illness Narrative Scan on 12/04/2023 10:10 AM by ProviderIrma PA-C: Chemistry Scan on 12/04/2023 8:33 AM by Irma Alvarado PA-C: Chemistry Scan on 12/04/2023 7:07 AM by ProviderIrma PA-C: Miscellaneous Lab documented in this encounter [facility] 11-25-2023 Telephone encounter Note Patients spouse phoned to request lab orders faxed to [facility] lab. The number she provided was [phone]. Completed through [employer]. Lisandra Velásquez MA [facility] 11-25-2023 Miscellaneous Notes Patients spouse phoned to request lab orders faxed to [facility] lab. The number she provided was [phone]. Completed through [employer]. Lisandra Velásquez MA documented in this encounter [facility] 11-22-2023 History of Presen t illness Narrative Images from the original note were not included. PREP SHEET FOR NEPHROLOGY CLINIC Patient Name: Rodri Gale Assistant Manager Airside Operations: Monse Andrade Date of Kidney Transplant: 10/22/2019 4y Primary Disease: Diabetes Mellitus - Type II Transplant Customer Solutions Teammate: Jim Squires Primary Care physician: Alo Avina Last Transplant Appointment: 11/17/2022 Encounter Date: 10/01/2023 Kidney Txp #1: 10/22/2019 (3y 11m) Patient set to transfer to primary traffic and transport planner, Dr. Bravo after appt with Dr. Squires 11/21. Dr. Lazar office ordered two Allosure lab draws. Allosure on 09/12 was 3.9%, Allosure on 09/26 was 3.7%. Per Dr. Lzaar office, patient to touch base with transplant clinic for follow-up regarding allosure test. IMMUNOSUPPRESSION AND LABS: Current Immunosuppressive Medication(s) Immunosuppressive Agents Mycophenolate sodium (MYFORTIC) [address] tablet DR Take 2 tablets by mouth every 12 hours. Tacrolimus (ENVARSUS XR) 1 MG Tab SR 24 HR Take 1 tablet by mouth daily. I/S levels: No results found for: CYCLOSPORIN, CYCLOSPORIN2, [id number], CYCLORAND No components found for: CYCLOSPORINE, 2HR POST No results found for: SIROLIMUS, RAPAMUNE, RAPAMYCIN No results found for: EVEROLIMUS, EVRLMSTRGH, EVERTRGHMANE, EVRLMSRND Lab Results Component Value Date TACROLIMUS 11.3 11/26/2019 TACROLIMUS 14.2 (H) 10/26/2019 TACROLIMUS 10.0 10/25/2019 TACROTRGHMAN 4.8 11/07/2023 TACROTRGHMAN 4.4 08/14/2023 TACROTRGHMAN 5.5 05/16/2023 CHEMISTRY: Lab Results Component Value Date CREATSERUM 1.34 11/07/2023 CREATSERUM 1.14 08/14/2023 CREATSERUM 1.13 05/16/2023 HEMATOLOGY: Lab Results Component Value Date WBC 7.1 11/07/2023 WBC 6.6 08/14/2023 WBC 6.9 05/16/2023 Lab Results Component Value Date HGB 12.0 11/07/2023 HGB 12.4 08/14/2023 HGB 12.4 05/16/2023 IMMUNOLOGY: Lab Results Component Value Date CMVPCR negative 08/31/2020 CMVPCR negative 08/03/2020 CMVPCR negative 07/06/2020 BKVIRALP <500 11/16/2022 BKVIRALP <500 11/11/2020 BKVIRALP <500 05/12/2020 CURRENT MEDICATIONS: Finasteride, Insulin lispro, Labetalol, Mycophenolate sodium, NIFEdipine, Rosuvastatin, Tacrolimus, aspirin, cholecalciferol, and insulin glargine [facility] [address] [facility] [facility] [place] [address] [facility] [place] [phone] Change in lab frequency / new order today: Labs needed in clinic today? COORDINATOR NOTES: Images from the original note were not included. Nursing Assessment In Clinic Patient is accompanied to clinic today by: family Did patient require a wheelchair or medical transport for appointment: no Is patient employed: no (Needed for [employer] forms) VITALS BP Readings from Last 3 Encounters: 11/22/23 151/71 11/16/22 138/65 05/21/22 142/66 Pulse Readings from Last 3 Encounters: 11/22/23 54 11/16/22 58 05/21/22 58 Wt Readings from Last 6 Encounters: 11/22/23 87.7 kg (193 lb 4.8 oz) 11/16/22 87.5 kg (193 lb) 05/21/22 86.2 kg (190 lb) 11/17/21 87.1 kg (192 lb) 05/19/21 83.9 kg (184 lb 14.4 oz) 11/11/20 87.9 kg (193 lb 12.8 oz) Body mass index is 27.74 kg/m . Lab Results Component Value Date GLUCOSE 130 11/07/2023 Lab Results Component Value Date HGBA1C 6.2 05/16/2023 IMMUNOSUPPRESSION Current Immunosuppressive Medication(s) Immunosuppressive Agents Mycophenolate sodium (MYFORTIC) [address] tablet DR Take 2 tablets by mouth every 12 hours. Tacrolimus (ENVARSUS XR) 1 MG Tab SR 24 HR Take 1 tablet by mouth daily. PREFERRED LAB AND PHARMACY: [facility] - [address] [facility] [place] [address] [facility] [address] [facility] [id number] [facility] [place] [id number] [address] [facility] [id number] ROS and SCREEN: Chest Pain: negative Cough: negative SOB: negative Abd Pain: negative Nausea: negative Vomiting: negative Diarrhea: negative Constipation: negative Dysuria: negative Edema: negative Tremors: positive - mild Headaches: negative Wound issues: negative Any diagnosis of cancer/malignancy (any type) in the last year: no Do you follow with a Ballistics Tester? no Do you have a Primary Care provider? yes Have you been seen in the last 12 months? yes (If not seen within the last year please advise patient to schedule a follow up appointment to remain current) Alcohol consumption: no Cigarette smoking, smokeless tobacco or vaping/e-cigarette use: no Marijuana (any form), CBD oil or street drug use: no QUESTIONS OR CONCERNS TO ADDRESS WITH PHYSICIAN: - refill of envarsus I saw Rodri Gale at the [facility] on 11/21/2022. Patient is a 68 y.o. 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 His [place] kidney disease was noted to be diabetic nephropathy. His post-transplant course was noteworthy for good allograft function. He reports no interval health issues such as hospitalizations, infections or ED visits. He does not report any active physical symptoms or health issues today. He lives in [place] with his . Wants to transfer care to Dr. Dey in [place] henceforth. Transplant Details: HLA mismatch was A1, B2, DR 1. CMV D+/R+, EBV R+, KDPI 60%. Pre-transplant cPRA 0%. For induction immunosuppression, he received Basiliximab x2 and a rapid prednisone taper. He was then started on mycophenolate and tacrolimus for maintenance immunosuppression. Review of Systems done by the RN; see separate note Current Outpatient Medications Medication Sig aspirin 81 MG Chew Tab chewable tablet Chew 1 tablet daily. cholecalciferol 25 MCG (1000 UNIT) tablet Take 2 tablets by mouth daily. finasteride 5 MG Tab Take 1 tablet by mouth daily. insulin glargine 100 UNIT/ML Solution Pen-injector injection Inject 25 Units under the skin at bedtime. insulin lispro 100 UNIT/ML Solution Inject 16 Units under the skin 2 times daily. 5-7 at lunch, 6-10 lunch, 8-12 supper labetalol 100 MG tablet Take 1 tablet by mouth 2 times daily. (Patient taking differently: Take 1.5 tablets by mouth 2 times daily.) Mycophenolate sodium (MYFORTIC) [address] tablet DR Take 2 tablets by mouth every 12 hours. NIFEdipine 30 MG Tab SR 24 HR Take 1 tablet by mouth daily. rosuvastatin 10 MG tablet Take 1 tablet by mouth daily. Tacrolimus (ENVARSUS XR) 1 MG Tab SR 24 HR Take 1 tablet by mouth daily. 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 Diabetes mellitus Diabetic retinopathy Essential hypertension, benign Hyperlipidemia Renal disease Tinnitus Past Surgical History: Past Surgical History: Procedure Laterality Date KIDNEY TRANSPLANT W/O SENECA-CAYUGA NEPHRECTOMY N/A 10/22/2019 Laterality: N/A; Surgeon: Angelo Tomlin MD, PhD; Location: U MAIN OR REPAIR MALUNION NONUNION RADIUS ULNA W/ AUTOGRAFT Right 10/25/2015 Laterality: Right; Surgeon: Barb Chan MD; Location: PERIOP OSC ANGIOPLASTY OF BRACHIOCEPHALIC TRUNK OR BRANCH WITH TRANSLUMINAL BALLOON PERCUTANEOUS FOR AVF OR GRA ORIF WRIST PROSTATECTOMY TURP Family History: family history includes Cancer- Other in his father and mother; Lung Cancer in his mother; Myocardial Infarction in his brother, brother, and sister; No known problems in his brother and sister. Social History: reports that he quit smoking about 47 years ago. His smoking use included cigarettes. He started smoking about 52 years ago. He has a 2.5 pack-year smoking history. He has never used smokeless tobacco. He reports current alcohol use. He reports that he does not use drugs. Physical Exam: Blood pressure 151/71, pulse 54, temperature 97.3 F (36.3 C), temperature source Temporal, weight 87.7 kg (193 lb 4.8 oz). Constitutional: Well developed, well nourished, in no physical distress. HEENT: PERRL, no scleral icterus, moist pharynx Neck: Supple, no JVD, no carotid bruits Lungs: Clear to auscultation bilaterally, no labored breathing, no W/R/R Cardiovascular: S1 & S2 with regular rhythm and normal rate, no pericardial rub Abdominal: soft, NTTTP, ND, NABS; Extremities: No edema, no cyanosis or clubbing, equal distal pulses Neurological: AA/Ox3, moves all four extremities Skin: No rashes or bruises : No CVA tenderness to palpation Laboratory Findings: WBC, MANUAL ENTER Date Value Ref Range Status 11/07/2023 7.1 Final Hemoglobin (HGB), MANUAL ENTER Date Value Ref Range Status 11/07/2023 12.0 Final HEMATOCRIT (HCT), MANUAL ENTER Date Value Ref Range Status 11/07/2023 37.0 Final PLATELETS, MANUAL ENTER Date Value Ref Range Status 11/07/2023 216 Final SODIUM (NA), MANUAL ENTER Date Value Ref Range Status 11/07/2023 143 mmol/L Final Chloride (CL), MANUAL ENTER Date Value Ref Range Status 11/07/2023 110 Final Blood Urea Nitrogen (BUN), MANUAL ENTER Date Value Ref Range Status 11/07/2023 26 Final POTASSIUM (K+), MANUAL ENTER Date Value Ref Range Status 11/07/2023 4.1 Final CREATININE, SERUM, MANUAL ENTER Date Value Ref Range Status 11/07/2023 1.34 Final GLUCOSE, MANUAL ENTER Date Value Ref Range Status 11/07/2023 130 Final PT Date Value Ref Range Status 10/26/2019 14.4 (H) 11.9 - 14.2 sec Final PTT Date Value Ref Range Status 10/26/2019 30.3 24.0 - 34.3 sec Final Total Protein Date Value Ref Range Status 01/22/2020 6.7 6.4 - 8.3 g/dL Final ALBUMIN, MANUAL ENTER Date Value Ref Range Status 11/07/2023 4.0 Final AST, MANUAL ENTER Date Value Ref Range Status 11/07/2023 18 Final ALT, MANUAL ENTER Date Value Ref Range Status 11/07/2023 17 Final GGT Date Value Ref Range Status 06/10/2019 15 8 - 64 U/L Final Bilirubin, Total, MANUAL ENTER Date Value Ref Range Status 11/07/2023 0.3 Final CALCIUM (CA), MANUAL ENTER Date Value Ref Range Status 11/07/2023 8.9 Final Phosphate (PO4), Manual Enter Date Value Ref Range Status 11/07/2023 3.4 Final MAGNESIUM (MG), MANUAL ENTER Date Value Ref Range Status 11/07/2023 2.2 Final TOTAL CHOLESTERL, MANUAL ENTER Date Value Ref Range Status 05/16/2023 159 Final HDL, MANUAL ENTER Date Value Ref Range Status 05/16/2023 42 Final LDL, MANUAL ENTER Date Value Ref Range Status 05/16/2023 88 Final TRIGLYCERIDES, MANUAL ENTER Date Value Ref Range Status 05/16/2023 146 Final Assessment and Plan: Patient is a 68 y.o. male, s/p donor kidney transplant. 1. Immunosuppression: Rodri Gale is currently taking tacrolimus and mycophenolate for immunosuppression management and is tolerating it well. No changes made today with this regimen. 2. Allograft function: Is stable, based on the serum creatinine trends. 3. Hypertension: Also stable based on the home BP recordings. No changes made with the current anti-hypertensive regimen. Continue to monitor BP frequently and record. 4. Anemia: Hemoglobin and iron studies are within normal limits. Patient is being transferred to Dr. Judd Dey in [place], [place]. Please do not hesitate to contact me if you have any questions. Jim Squires MD photogravure press operator Division of Nephrology [facility] documented in this encounter [facility] 11-22-2023 Instructions Leah Dwyer RN - 11/22/2023 2:00 PM EDT - No medication changes- 6 month refill sent in on Envarsus. Follow up with Dr. Bravo for future refills on immunosuppression medication. - Transfer of care to Dr. Bravo - no follow up needed with Dr. Squires documented in this encounter [facility] 11-11-2023 History of Presen t illness Narrative Scan on 11/10/2023 12:35 PM by Provider, External, PAFidelinaC: Miscellaneous Lab documented in this encounter [facility] 11-07-2023 History of Presen t illness Narrative View External Labs - Chemistry [ID [id number]] documented in this encounter [facility] 11-06-2023 Telephone encounter Note The following approved medication requests have been transmitted electronically. Requested Prescriptions Signed Prescriptions Disp Refills NIFEdipine ER (PROCARDIA XL) 30 mg 24 hr tablet 90 tablet 1 Sig: Take 1 tablet by mouth once daily. Authorizing Provider: ALO AVINA MD [facility] 11-06-2023 Miscellaneous Notes The following approved medication requests have been transmitted electronically. Requested Prescriptions Signed Prescriptions Disp Refills NIFEdipine ER (PROCARDIA XL) 30 mg 24 hr tablet 90 tablet 1 Sig: Take 1 tablet by mouth once daily. Authorizing Provider: ALO AVINA MD Patient has been identified by name and date of : Yes, Provider Rupesh Spouse phones for refill(s): Requested Prescriptions Pending Prescriptions Disp Refills NIFEdipine ER (PROCARDIA XL) 30 mg 24 hr tablet 90 tablet 1 Sig: Take 1 tablet by mouth once daily. Date of last office visit in primary care: 06/18/2023 Date of next office visit in primary care: 12/18/2023 Please advise. Thank you. Rebekah Duggan. documented in this encounter [facility] 11-06-2023 Telephone encounter Note Patient has been identified by name and date of : Yes, Provider Rupesh Spouse phones for refill(s): Requested Prescriptions Pending Prescriptions Disp Refills NIFEdipine ER (PROCARDIA XL) 30 mg 24 hr tablet 90 tablet 1 Sig: Take 1 tablet by mouth once daily. Date of last office visit in primary care: 06/18/2023 Date of next office visit in primary care: 12/18/2023 Please advise. Thank you. Rebekah Duggan. [facility] 10-30-2023 Telephone encounter Note Fax received formulary change for insulin. He has received a transition supply. New prescriptions need to be Novolog aspart 100u/mL solution, novolog Flexpen U-100 Lisandra Velásquez MA [facility] 10-30-2023 Miscellaneous Notes Fax received formulary change for insulin. He has received a transition supply. New prescriptions need to be Novolog aspart 100u/mL solution, novolog Flexpen U-100 Lisandra Velásquez MA documented in this encounter [facility] 10-23-2023 History of Presen t illness Narrative Scan on 10/23/2023 9:17 AM by ProviderIrma PA-C: Consultation - Ophthalmology Katrina Mace MA documented in this encounter [facility] 10-14-2023 History of Presen t illness Narrative Scan on 10/11/2023 6:02 PM by ProviderIrma PA-C: Consultation - Ophthalmology Marisabel Yepez LPN documented in this encounter [facility] 09-23-2023 Miscellaneous Notes Patient has been identified by name and date of : Yes, Provider Dr Avina Date 09/23/2023 Time 10:53 am Requested Prescriptions Pending Prescriptions Disp Refills rosuvastatin (CRESTOR) 10 mg tablet 90 tablet 1 Sig: Take 1 tablet by mouth once daily. finasteride (PROSCAR) 5 mg tablet 90 tablet 1 Sig: Take 1 tablet by mouth once daily. RX INSTRUCTIONS: Patient aware RX will be sent to pharmacy. No need to notify patient. Katrina Mace MA Saima Nov 12/2023 Last refill: 03/2023 Pharmacy verified in [facility] Patient has been identified by name and date of : Yes Patient aware RX will be sent to pharmacy. No need to notify patient. Spouse phones for refill(s): finasteride (PROSCAR) 5 mg tablet (Discontinued) 90 tablet 1 09/26/2022 03/25/2023 Sig: Take 1 tablet by mouth once daily. Sent to pharmacy as: finasteride (PROSCAR) 5 mg tablet Class: Normal Date of last office visit : 06/18/2023 Date of next office visit : 12/18/2023 Last 2 Encounter Wt Readings: Date: Wt: 06/19/2023 83.3 kg (183 lb 9.6 oz) 06/18/2023 85.7 kg (189 lb) Not applicable Please advise. Lisandra Duron [facility] Pharmacy verified in [facility] Patient has been identified by name and date of : Yes Patient aware RX will be sent to pharmacy. No need to notify patient. Spouse phones for refill(s): Requested Prescriptions Pending Prescriptions Disp Refills rosuvastatin (CRESTOR) 10 mg tablet 90 tablet 1 Sig: Take 1 tablet by mouth once daily. Date of last office visit : 06/18/2023 Date of next office visit : 12/18/2023 Last 2 Encounter Wt Readings: Date: Wt: 06/19/2023 83.3 kg (183 lb 9.6 oz) 06/18/2023 85.7 kg (189 lb) Not applicable Please advise. Lisandra Duron Pss documented in this encounter [facility] 09-18-2023 Miscellaneous Notes Patient has been identified by name and date of : Spouse phones for refill(s): Requested Prescriptions Pending Prescriptions Disp Refills insulin aspart U-100 (NOVOLOG FLEXPEN U-100 INSULIN) 100 unit/mL (3 mL) 5 Each 5 Sig: Inject 4 units with breakfast, use 6 units with lunch and dinner. PLUS SLIDING SCALE #1 (based on pre meal blood sugar) Date of last office visit in primary care: 06/19/2023 Date of next office visit in primary care: 12/11/2023 Please advise. Thank you. Zandra Ybarra LPN. documented in this encounter [facility] 09-13-2023 History of Presen t illness Narrative Scan on 09/13/2023 10:25 AM by Irma Alvarado PA-C: Chemistry Scan on 09/13/2023 9:52 AM by Irma Alvarado PA-C: Chemistry documented in this encounter [facility] 08-28-2023 History of Presen t illness Narrative Scan on 08/28/2023 2:43 AM by Irma Alvarado PA-C: Consultation - Ophthalmology documented in this encounter [facility] 05-21-2023 History of Presen t illness Narrative Scan on 05/19/2023 3:35 PM by Irma Alvarado PA-C: Miscellaneous Lab Scan on 05/19/2023 3:35 PM by Irma Alvarado PA-C: Chemistry documented in this encounter [facility] 05-08-2023 Miscellaneous Notes The following approved [...] to pharmacy. No need to notify patient. Katrina Mace MA Saima 12/2022 Nov: 06/2023 Last refill; 11/2022 Provider was not available on 06/19/2023 patient's original appointment was rescheduled to 08/2022. Contacted patient and rescheduled to 06/18/2023 and faxed orders to [facility] for patient to complete before his appointment. Katrina Mace MA Patient has been identified by name and date of : Yes Requested Prescriptions Pending Prescriptions Disp Refills NIFEdipine ER (PROCARDIA XL) 30 mg 24 hr tablet 90 tablet 1 Sig: Take 1 tablet by mouth once daily. RX INSTRUCTIONS: Patient aware RX will be sent to pharmacy. No need to notify patient. Azeb Duggan documented in this encounter [facility] 04-01-2023 History of Presen t illness Narrative Patient's home health 485 form / care plan for certification period 03/10/2023 to 03/12/2023 reviewed and signed. Relevant medical records were reviewed. No changes were indicated documented in this encounter [facility] 03-25-2023 Miscellaneous Notes SAIMA 12/06/22 NOV 06/19/23 [...] patient. Mary Duggan documented in this encounter [facility] 03-19-2023 Miscellaneous Notes Patient seen by Alondra Cope on 03/13/2023. Closing TE. Bianca Wahl RN also dropped off results to PCP office. Given to PCP. Katrina Mace MA Patients dropped of BS readings to [...] Bianca Wahl RN documented in this encounter [facility] 03-13-2023 History of Presen t illness Narrative OFFICE VISIT PROGRESS NOTE RACHELE Gale is a 67 year old male who presents today for blood sugar review, insulin dose review/adjust. HPI Diagnosed with diabetes mellitus type II, ~ 1997 Hx of dialysis ~ 2 years Patient sts kidney issues are not secondary to his diabetes [place] it was related to medication overdose (BP [...] LABS, no A1C for review (scanned to eMeter) IN OFFICE A1C PAST MEDICAL HISTORY Diagnosis Date Advance directive discussed with patient 11/16/2021 Discussed 11/2021 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 07/12/2017 BMI 32.0-32.9,adult BPH (benign prostatic hyperplasia) 03/06/2012 Chronic pain of right knee 12/05/2018 Diabetes mellitus type 2 with neurological manifestations (HCC) 02/13/2013 Diabetic eye exam ([facility]) 10/09/2021 Last done 10/09/2021 [facility] Diabetic ulcer of toe of right foot associated with type 2 diabetes mellitus, limited to breakdown of skin ([facility]) 12/05/2018 Erectile dysfunction 02/24/2010 Essential hypertension, benign Essential tremor 09/20/2016 Ex-smoker 05/17/2021 Fistula 12/20/2017 left forearm radial to cephalic ateriovenous Hearing loss 09/10/2012 Hyperlipidemia, mixed Living will in place 11/16/2021 JC Montelongo (son) Medicare annual wellness visit, subsequent 11/16/2021 Medicare Part B: 01/05/2018, Last done: 11/16/2021 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 ([facility]) 05/17/2021 Osteoarthritis of left knee 02/16/2011 Personal history of nicotine dependence Renal transplant recipient 11/23/2019 Restless leg syndrome 12/05/2018 Right rotator cuff tear 11/16/2021 Treated with PHYSICAL THERAPY. 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, with long-term current use of insulin ([facility]) 09/20/2016 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 disease, with long-term current use of insulin ([facility]) 08/21/2019 Vitamin D deficiency 07/31/2017 Witnessed episode of apnea 11/23/2019 PAST SURGICAL HISTORY Procedure Laterality Date COLONOSCOPY FLX DX W/COLLJ SPEC WHEN PFRMD 09/30/2017 [facility]--Repeat in 3 years-2020 FISTULA Left 09/11/2017 Radiocephalic arteriovenous fistula creation--[facility]--[facility] PAST SURGICAL HISTORY OF 06/07/15 right grade II Open distal radius and ulnar shaft fracture PROSTATE SURGERY HX REM LESION TRUNK,ARM, LEG <0.5 CM 05/07/07 Exc. piero cyst upper mid back FAMILY HISTORY Problem Relation Age of Onset Diabetes Mother Hypertension Mother Heart Mother CT other (lung cancer) Mother bone metastasis Diabetes [...] INSULIN INJECTIONS E11.9 Blood-Glucose Meter,Continuous (DEXCOM G7 UNPAID INTERN) [facility] Dispense one ent nurse kit. E11.9 USE FOR CONTINUOUS GLUCOSE MONITORING. Multiple insulin injections. labetalol (TRANDATE) 100 mg tablet Take 1.5 tablets by mouth twice daily. insulin glargine (LANTUS SOLOSTAR U-100 INSULIN) 100 unit/mL (3 mL) INJECT 25 Units at bedtime Insulin [place], Disposable, (BD ULTRAFINE III MINI PEN) 31 [...] F) (Temporal Artery) Ht 179.1 cm (5' 10.5) Wt 84.9 kg (187 lb 3.2 oz) [...] diagnosis) Comment: RECOMMEND THE FOLLOWING CHANGES: NOVOLOG 11-12-8 SS#1 LANTUS 25 units daily F/U in [...] Claribel Cope CNP documented in this encounter [facility] 03-12-2023 Miscellaneous Notes Orders faxed to [facility]. Cover letter sent with message to fax results to [phone]. Lisandra Velásquez MA I don't think we can see [facility] unless they fax us the results. Phoned patient to update the address and remind him of labs and to bring logs/reader to appointment. Patient will get labs at [facility] at 6 am. Are these orders able to be seen for them? Thanks Lisandra Velásquez MA documented in this encounter [facility] 03-12-2023 Miscellaneous Notes Noted. Reina with [facility] calls to report pt was discharged from their services today. Pt saw Dr. Rojas who said the wound looked healed and he could be discharged. Shantelle Osborn LPN documented in this encounter [facility] 03-07-2023 Miscellaneous Notes Nurse Reina notified. Ok to see patient x1 next week. nurse Reina @ [facility] calling to let PCP know patient was seen by Dr. Rojas, Heel Cove[employer] Machine Operator yesterday. He removed patient's sutures and instructed patient to keep dressing intact until Saturday. Reina requesting verbal okay to see patient 1 x next week to check wound prior to discharge from [facility]. Her ph# [phone]. Sadia Reina RN documented in this encounter [facility] 02-25-2023 Miscellaneous Notes Patient notified and faxed info. Katrina Mace MA Consult order placed. Patient's calling and states pt would like to see a [employer] Teammate who is closer to [place] than Dr. Squires, the one pt sees in [place] currently. Asking to see Dr. Dey in [place], as recommended by Dr. Squires, if PCP agreeable to place referral. Please fax referral to Office of Dr. Dey Fax #: [phone] Attention: Shama Please call with update. Thank you. documented in this encounter [facility] 02-13-2023 History of Presen t illness Narrative Scan on 02/09/2023 1:33 PM by Provider, External, PAFidelinaC: Miscellaneous Lab Katrina Mace MA documented in this encounter [facility] 02-06-2023 Miscellaneous Notes Call placed to Fay and message left on secure voicemail. Crystal to call back if any further questions. Bianca Wahl RN I'm ok with extending Fay with [facility] HH calls to request extension of HH SN orders for SN 1 wk 1 and 2 wk 4 for continued monitoring. Podiatry will continue to give wound care orders for right foot and toe. Please phone Fay back at [phone]. Bianca Wahl RN documented in this encounter [facility] 01-28-2023 History of Presen t illness Narrative Scan on 01/27/2023 10:07 AM by Provider, External, VICTORINA: Miscellaneous Lab Katrina Mace MA documented in this encounter [facility] 01-24-2023 History of Presen t illness Narrative Patient's home health 485 form / care plan for certification period 01/09/2023 to 03/09/2023 reviewed and signed. Relevant medical records were reviewed. No changes were indicated documented in this encounter [facility] 01-07-2023 Miscellaneous Notes Left detailed message. Katrina Mace MA [phone]. yes [facility] calling will you follow for start of nursing services? Please advise. documented in this encounter [facility] 01-07-2023 Progress note Note Date/Time January 07, 2023 10:17am [facility] Medical Records Department [address] [place] [address] Progress Note - Hospitalist 01/07/23 1015 MR#: [id number] Acct: [id number] Name: RODRI GALE Rep #:[id number] : 1955 67 From: Lindsay Meza MD PCP: Dr. Alo Avina MD Status:ADM IN [id number] Reason for Visit Reason for Visit: Diagnoses Type 2 diabetes mellitus with diabetic polyneuropathy (01/03/23) Type 2 diabetes mellitus with foot ulcer (01/03/23) Cellulitis of right lower limb (01/03/23) Local infection of the skin and subcutaneous tissue, unspecified (01/03/23) Non-pressure chronic ulcer of other part of unspecified foot with unspecified severity (01/03/23) Non-pressure chronic ulcer of other part of right foot with fat layer exposed (01/03/23) Osteomyelitis, unspecified (01/03/23) Subjective Subjective Patient feeling better, has some swelling in his right arm from IV so infusion halted Objective Data Objective Data Vital Signs: Vital Signs Temp Pulse Resp BP Pulse Ox O2 Del Method O2 Flow Rate 99.9 F H 78 18 161/62 H 94 Nasal Cannula 2 01/07/23 09:34 01/07/23 09:34 01/07/23 09:34 01/07/23 09:34 01/07/23 09:34 01/07/23 09:34 01/07/23 09:34 FiO2 2 01/06/23 14:39 Oxygen Flow Rate (L/min) 2 Oxygen Delivery Method Nasal Cannula Weight: 87.1 kg Body Mass Index (BMI) 27.5 Intake & Output: Intake and Output for Last 24 Hours 01/05/23 01/06/23 01/07/23 23:59 23:59 23:59 Intake Total 4065 / 4065 1400 / 1400 876.88 / 876.88 Output Total 900 / 1250 350 / 350 875 / 875 Balance 3165 / 2815 1050 / 1050 1.88 / 1.88 Lab / Micro Data 01/07/23 06:30 01/07/23 06:30 Labs: Laboratory Results - last 24 hr 01/06/23 11:47: POC Glucose 229 H 01/06/23 16:57: POC Glucose 272 H 01/06/23 20:37: POC Glucose 243 H 01/07/23 05:55: POC Glucose 221 H 01/07/23 06:30: WBC 13.6 H, RBC 3.48 L, Hgb 9.9 L, Hct 30.5 L, MCV 87.6, MCH 28.4, MCHC 32.5, RDW Std Deviation 41.1, RDW Coeff of Yung 12.9, Plt Count 307, MPV 9.9, Immature Gran % (Auto) 0.900, Neut % (Auto) 84.4 H, Lymph % (Auto) 5.9 L, [place] % (Auto) 7.1, Eos % (Auto) 1.3, Baso % (Auto) 0.4, Absolute Neuts (auto)11.5 H, Absolute Lymphs (auto) 0.80 L, Nucleated RBC % 0, Sodium 139, Potassium 3.3 L, Chloride 112 H, Carbon Dioxide 21.0, Anion Gap 6, BUN 10, Creatinine 1.12, Estim Creat Clear Calc 66.08, Est GFR (MDRD) Af Amer 84, Est GFR (MDRD) Non-Af 69, BUN/Creatinine Ratio 8.9 L, Glucose 215 H, Calcium 8.8, Total Bilirubin 0.40, AST 12 L, ALT 12 L, Alkaline Phosphatase 44 L, Total Protein 6.0L, Albumin 2.4 L, Globulin 3.6, Albumin/Globulin Ratio 0.7 L, Vancomycin Trough 11.7 Micro: Microbiology 01/03/23 17:10 Tissue Ulcer - Plantar Gram Stain - Final 01/03/23 17:10 Tissue Ulcer - Plantar Tissue Culture - Preliminary Klebsiella oxytoca Pseudomonas aeruginosa Staphylococcus cohnii urealyti Alpha hemolytic organism 01/04/23 13:34 Tissue - 5th Toe Gram Stain - Final 01/04/23 13:34 Tissue - 5th Toe Wound Culture - Final Streptococcus mitis 01/04/23 13:34 Tissue - 5th Toe Anaerobic Culture - Preliminary Checking for anaerobes, further studies to follow. 01/04/23 13:39 Tissue - 5th Toe Gram Stain - Final 01/04/23 13:39 Tissue - 5th Toe Wound Culture - Preliminary Alpha hemolytic organism 01/04/23 13:39 Tissue - 5th Toe Anaerobic Culture - Preliminary Checking for anaerobes, further studies to follow. 01/04/23 13:37 Tissue - 5th Metatarsal Bone Gram Stain - Final 01/04/23 13:37 Tissue - 5th Metatarsal Bone Wound Culture - Preliminary Alpha hemolytic organism 01/04/23 13:37 Tissue - 5th Metatarsal Bone Anaerobic Culture - Preliminary Checking for anaerobes, further studies to follow. 01/03/23 12:23 Blood Culture (Wb) - Anticubital Right Blood Culture - Preliminary No growth in 48 hours. 01/03/23 11:26 Blood Culture (Wb) - Anticubital Right Blood Culture - Preliminary No growth in 48 hours. 01/03/23 12:29 Urine, Clean Catch Urine Culture - Final Culture exhibits no growth. 01/03/23 12:05 Mucosa - Nasopharyngeal Respiratory Panel (PCR) - Final Radiography Diagnostic Testing: Radiology Impression Chest X-Ray 01/06/23 05:45 IMPRESSION: Normal x-ray examination of the chest. Electronically Signed: Marco Yates MD at 8:31 EDT , Physical Exam Narrative General: Alert, oriented, no apparent distress HEENT: Atraumatic, normocephalic Eyes: Anicteric, normal conjunctiva, extraocular movements grossly intact Neck: Supple Respiratory: No significant wheezes or rhonchi, normal respiratory effort Cardiovascular: Regular rate and rhythm GI: Soft, nontender, nondistended Extremities: No significant edema, right foot wrapped, right arm with mild swelling with no pitting Musculoskeletal: Moving all extremities Neuro: No overt focal neurological deficits, has tremor in both hands which he reports is chronic Skin: No rashes appreciated Psych: Cooperative Assessment & Plan Assessment/Plan (1) Cellulitis of foot, right: (2) Right foot infection: PLAN: Plan #Diabetic foot ulcer with osteomyelitis/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/status post renal transplant ? We will continue with his diabetic monitoring and make adjustments as necessary to his insulin ? Continue vancomycin and Zosyn ? We will consult podiatry ? MRI with osteomyelitis, will consult ID ? We will resume his home antirejection medications -01/05: Patient went to the OR with Dr. 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 Did spike temperature of 101.2 overnight, blood cultures pending. Preop cultures growing gram-negative howard and gram-positive organisms, Intra-Op cultures prelim with alphahemolytic organism, further speciation and cultures pending. Remains on vancomycin and Zosyn, ID following. Continue tacrolimus for history of kidney transplant. Will obtain tacrolimus level -01/06: Preliminary cultures with alphahemolytic organism intraoperatively, initial wound culture with Klebsiella and Pseudomonas, given patient is improving we will continue current antibiotics, blood cultures no growth to date. Infectious disease to reevaluate this week, continue to follow cultures -01/07: ID with DC bank, continuing Zosyn for next 24 to 48 hours and hopeful DC home with oral antibiotics this week #Hypoxia -Pt desaturated to 88% on RA last night with no hx of O2 use -Chest x-ray read pending -Patient on 3 L O2 with O2 sat of 94% -Patient has received IVF, is possible he could retain fluid -Hold further IVF, monitor clinically, chest x-ray reports no acute process -01/07: Stable #Type 2 diabetes mellitus -Glucose checks and sliding scale insulin -Also on glargine 25 nightly -01/07: Premeal added #HTN/HLD ? Blood stable ? Can resume his home blood pressure medications ? Resume his home cholesterol medications DVT: Lovenox subq Time spent in the patient's overall evaluation,decision-making process, review of diagnostic data, adjustment of management, discussion with other providers, nursing nursing and ancillary staff involved in patient's care documentation, 37minutes Charges/Coding Visit Charges Inpatient E&M: 68641 Subs Hosp L3 01/07/23 1018 <Electronically signed by Lindsay Meza MD> Cosigner Signature (if applicable): CC: ~ Signed [facility] Work Phone: 1(212) 345-844807-03-2023 Consult note Author Jaxson Mahmood [facility] January 07, 2023 10:06am Note Date/Time January 07, 2023 10:06 am [facility] Medical Records Department [address] [place] [address] Consultation - Infectious Dx 01/07/23 1002 MR#: [id number] Acct: [id number] Name: RODRI GALE Rep #:[id number] : 1955 67 From: Jaxson Mahmood MD PCP: Dr. Alo Avina MD Status:ADM IN Location: [facility] [id number] Assessment & Plan Assessment/Plan (1) Right foot infection: PLAN: At this time we will treat with Zosyn, will discontinue parenteral vancomycin. Closely follow his postop course and hopefully anticipate home in the next 48 hours. Hopefully we could construct an oral antimicrobial regimen. HPI Consult Data Date of Consult: 01/07/23 HPI Narrative Reason for Consultation: Diabetic right foot infection HPI Narrative: RODRI GALE, is a 67 M who presents with increased erythema of the right foot and shaking chills; patient was taken to the operating room on January 04 and underwent debridement of the right foot and partial amputation of the infected bone. Patient overall clinically stable. Currently on vancomycin plus Zosyn. No further fevers. No cardiopulmonary distress nor any significant gastrointestinal distress. His past medical history is quite complicated including longstanding diabetes mellitus complicated by end-stage renal disease status post renal transplantation in October 2019. His posttransplant course has been stable with normalization of his renal function. Patient is on immunosuppressive therapy. Microbiology data of the right foot cultures reviewed. [facility] Medical History (Updated 01/03/23 @ 19:[address] Rojas, DPM) Alcohol use Anemia Arthritis AV fistula stenosis Back pain Blister (nonthermal), right great toe, initial encounter BPH (benign prostatic hyperplasia) Cardiology follow-up encounter Chronic anemia Diabetes Diabetic foot ulcer associated with type 2 diabetes mellitus Dialysis patient Dietary restriction End-stage renal disease on hemodialysis Essential hypertension Hallux limitus of right foot High cholesterol History of echocardiogram History of edema History of pain when walking History of rheumatic fever History of stress test Hypercholesterolemia Insulin dependent diabetes mellitus Kidney disease Leg cramps Loss of hearing Malnutrition Open fracture at right wrist or hand level Restless legs Rheumatoid arthritis Screening for intestinal cancer Symptomatic bradycardia Type 2 diabetes mellitus with diabetic polyneuropathy Ulcer of right second toe with fat layer exposed Wears glasses Home Medications finasteride 5 mg tablet (Proscar) 5 mg PO DAILY PROSTATE 07/10/17 [History Last Taken 01/03/23] rosuvastatin 10 mg tablet (Crestor) 10 mg PO DAILY CHOLESTEROL 07/10/17 [History Last Taken 01/03/23] aspirin 81 mg tablet,delayed release (Enteric Coated Aspirin) 81 mg PO DAILY 09/27/22 [History Last Taken 01/03/23] insulin glargine 100 unit/mL (3 mL) subcutaneous pen (Lantus Solostar U-100 Insulin) 25 unit subcut QPM 09/27/22 [History Last Taken 01/02/23] labetalol 100 mg tablet 150 mg PO BID 09/27/22 [History Last Taken 01/03/23] mycophenolate sodium 360 mg tablet,delayed release 720 mg PO Q12H 09/27/22 [History Last Taken 01/03/23] tacrolimus 1 mg tablet,extended release 24 hr (Envarsus XR) 1 mg PO DAILY 09/27/22 [History Last Taken 01/03/23] cholecalciferol (vitamin D3) 50 mcg (2,000 unit) tablet (Vitamin D3) 50 mcg PO DAILY 10/29/22 [History Last Taken 01/03/23] insulin aspart U-100 100 unit/mL (3 mL) subcutaneous pen (Novolog FlexPen U-100 Insulin aspart) 8 unit subcut TIDCM DM 10/29/22 [History Last Taken 01/03/23] nifedipine 30 mg tablet,extended release 24 hr 30 mg PO DAILY HEART 01/03/23 [History Last Taken 01/03/23] Allergy/AdvReac Type Severity Reaction Status Date / Time metformin Allergy Itching Verified 01/03/23 14:11 Sulfa (Sulfonamide Allergy Swelling Verified 01/03/23 14:11 Antibiotics) Family History Mother Diabetes Hypertension Heart disease Cancer lung Brother Diabetes Father Diabetes Cancer pancreas Other CAD (coronary artery disease) CVA (cerebral vascular accident) Kidney disease Surgical History (Updated 11/02/22 @ 05:56 by Jeanne León) History of angioplasty of peripheral vessel History of colonoscopy History of left heart catheterization (05/01/19) Hx of kidney transplant Presence of surgically created arteriovenous shunt for hemodialysis Social History (Updated 09/03/19 @ 11:15 by Jazlyn REICH, PA-C) Smoking Status: Former smoker ROS ROS Narrative As stated in the history of present illness others negative Physical Exam Narrative Alert responsive does not appear toxic. Lungs are clear heart exam S1-S2 abdomen soft nontender. Left foot looks benign right foot postop dressings are in place. The patient does show me pictures of his foot before surgery and postop. Lab / Micro Data 01/07/23 06:30 01/07/23 06:30 Labs: Laboratory Results - last 24 hr 01/06/23 11:47: POC Glucose 229 H 01/06/23 16:57: POC Glucose 272 H 01/06/23 20:37: POC Glucose 243 H 01/07/23 05:55: POC Glucose 221 H 01/07/23 06:30: WBC 13.6 H, RBC 3.48 L, Hgb 9.9 L, Hct 30.5 L, MCV 87.6, MCH 28.4, MCHC 32.5, RDW Std Deviation 41.1, RDW Coeff of Yung 12.9, Plt Count 307, MPV 9.9, Immature Gran % (Auto) 0.900, Neut % (Auto) 84.4 H, Lymph % (Auto) 5.9 L, [place] % (Auto) 7.1, Eos % (Auto) 1.3, Baso % (Auto) 0.4, Absolute Neuts (auto)11.5 H, Absolute Lymphs (auto) 0.80 L, Nucleated RBC % 0, Sodium 139, Potassium 3.3 L, Chloride 112 H, Carbon Dioxide 21.0, Anion Gap 6, BUN 10, Creatinine 1.12, Estim Creat Clear Calc 66.08, Est GFR (MDRD) Af Amer 84, Est GFR (MDRD) Non-Af 69, BUN/Creatinine Ratio 8.9 L, Glucose 215 H, Calcium 8.8, Total Bilirubin 0.40, AST 12 L, ALT 12 L, Alkaline Phosphatase 44 L, Total Protein 6.0L, Albumin 2.4 L, Globulin 3.6, Albumin/Globulin Ratio 0.7 L, Vancomycin Trough 11.7 Micro: Microbiology 01/04/23 13:34 Tissue - 5th Toe Gram Stain - Final 01/04/23 13:34 Tissue - 5th Toe Wound Culture - Final Streptococcus mitis 01/04/23 13:34 Tissue - 5th Toe Anaerobic Culture - Preliminary Checking for anaerobes, further studies to follow. 01/04/23 13:39 Tissue - 5th Toe Gram Stain - Final 01/04/23 13:39 Tissue - 5th Toe Wound Culture - Preliminary Alpha hemolytic organism 01/04/23 13:39 Tissue - 5th Toe Anaerobic Culture - Preliminary Checking for anaerobes, further studies to follow. 01/04/23 13:37 Tissue - 5th Metatarsal Bone Gram Stain - Final 01/04/23 13:37 Tissue - 5th Metatarsal Bone Wound Culture - Preliminary Alpha hemolytic organism 01/04/23 13:37 Tissue - 5th Metatarsal Bone Anaerobic Culture - Preliminary Checking for anaerobes, further studies to follow. 01/03/23 17:10 Tissue Ulcer - Plantar Gram Stain - Final 01/03/23 17:10 Tissue Ulcer - Plantar Tissue Culture - Preliminary Klebsiella oxytoca Pseudomonas aeruginosa Staphylococcus cohnii urealyti Alpha hemolytic organism Radiology Impression Chest X-Ray 01/06/23 05:45 IMPRESSION: Normal x-ray examination of the chest. Electronically Signed: Marco Yates MD at 8:31 EDT , 01/07/23 1006 <Electronically signed by Jaxson Mahmood MD> Cosigner Signature (if applicable): CC: ANNE Rojas; Dr. Alo Avina MD; Dr. Ryan Rahman MD;Dr. Smooth Jordan MD~ Signed [facility] Work Phone: 1(947) 637-124507-03-[address]jas [facility] January 07, 2023 8:13am Note Date/Time January 07, 2023 8:13a m [facility] Medical Records Department [address] [place] [address] Progress Note 01/07/23 0810 MR#: [id number] Acct: [id number] Name: RODRI GALE Rep #:[id number] : 1955 67 From: Lane turcios DPM PCP: Dr. Alo Avina MD Status:ADM IN Location: [place] WT193-6 Subjective Subjective Patient seen this a.m. resting in bed with feet elevated. States that therapy had him up and walking yesterday utilizing his walker to remain nonweightbearingto the right lower extremity. He states he did well with this. Denies constitutional symptoms currently. Denies further complaints. Objective Data Objective Data Vital Signs: Vital Signs Temp Pulse Resp BP Pulse Ox O2 Del Method O2 Flow Rate 99.0 F 66 16 145/54 H 94 Nasal Cannula 2 01/07/23 02:38 01/07/23 02:38 01/07/23 02:38 01/07/23 02:38 01/07/23 02:38 01/07/23 02:38 01/07/23 02:38 FiO2 2 01/06/23 14:39 Oxygen Flow Rate (L/min) 2 Oxygen Delivery Method Nasal Cannula Weight: 87.1 kg Body Mass Index (BMI) 27.5 Intake & Output: Intake and Output for Last 24 Hours 01/05/23 01/06/23 01/07/23 23:59 23:59 23:59 Intake Total 4065 / 4065 1400 / 1400 876.88 / 876.88 Output Total 900 / 1250 350 / 350 875 / 875 Balance 3165 / 2815 1050 / 1050 1.88 / 1.88 Lab / Micro Data 01/07/23 06:30 01/07/23 06:30 Labs: Laboratory Results - last 24 hr 01/06/23 11:47: POC Glucose 229 H 01/06/23 16:57: POC Glucose 272 H 01/06/23 20:37: POC Glucose 243 H 01/07/23 05:55: POC Glucose 221 H 01/07/23 06:30: WBC 13.6 H, RBC 3.48 L, Hgb 9.9 L, Hct 30.5 L, MCV 87.6, MCH 28.4, MCHC 32.5, RDW Std Deviation 41.1, RDW Coeff of Yung 12.9, Plt Count 307, MPV 9.9, Immature Gran % (Auto) 0.900, Neut % (Auto) 84.4 H, Lymph % (Auto) 5.9 L, [place] % (Auto) 7.1, Eos % (Auto) 1.3, Baso % (Auto) 0.4, Absolute Neuts (auto)11.5 H, Absolute Lymphs (auto) 0.80 L, Nucleated RBC % 0, Sodium 139, Potassium 3.3 L, Chloride 112 H, Carbon Dioxide 21.0, Anion Gap 6, BUN 10, Creatinine 1.12, Estim Creat Clear Calc 66.08, Est GFR (MDRD) Af Amer 84, Est GFR (MDRD) Non-Af 69, BUN/Creatinine Ratio 8.9 L, Glucose 215 H, Calcium 8.8, Total Bilirubin 0.40, AST 12 L, ALT 12 L, Alkaline Phosphatase 44 L, Total Protein 6.0L, Albumin 2.4 L, Globulin 3.6, Albumin/Globulin Ratio 0.7 L, Vancomycin Trough 11.7 Micro: Microbiology 01/03/23 17:10 Tissue Ulcer - Plantar Gram Stain - Final 01/03/23 17:10 Tissue Ulcer - Plantar Tissue Culture - Preliminary Klebsiella oxytoca Pseudomonas aeruginosa Staphylococcus cohnii urealyti Alpha hemolytic organism 01/04/23 13:39 Tissue - 5th Toe Gram Stain - Final 01/04/23 13:39 Tissue - 5th Toe Wound Culture - Preliminary Alpha hemolytic organism 01/04/23 13:34 Tissue - 5th Toe Gram Stain - Final 01/04/23 13:34 Tissue - 5th Toe Wound Culture - Final Streptococcus mitis 01/04/23 13:37 Tissue - 5th Metatarsal Bone Gram Stain - Final 01/04/23 13:37 Tissue - 5th Metatarsal Bone Wound Culture - Preliminary Alpha hemolytic organism 01/03/23 12:23 Blood Culture (Wb) - Anticubital Right Blood Culture - Preliminary No growth in 48 hours. 01/03/23 11:26 Blood Culture (Wb) - Anticubital Right Blood Culture - Preliminary No growth in 48 hours. 01/03/23 12:29 Urine, Clean Catch Urine Culture - Final Culture exhibits no growth. 01/03/23 12:05 Mucosa - Nasopharyngeal Respiratory Panel (PCR) - Final Radiography Diagnostic Testing: Radiology Impression Chest X-Ray 01/06/23 05:45 IMPRESSION: Normal x-ray examination of the chest. Electronically Signed: Marco Yates MD at 8:31 EDT , Physical Exam Const alert, oriented x3 and no apparent distress General Appearance: cooperative HEENT normocephalic Eyes General Eye: normal appearance of both eyes Neck General: normal visual inspection Lymph Lymphatic: no lymphadenopathy noted and no lymphedema noted Resp normal respiratory effort Cardio regular rate and regular rhythm Extremity normal capillary refill, no joint enlargement, no calf tenderness and no pedal edema Extremity Narrative: DP and PT pulses palpable with adequate capillary fill time to the right foot. Dermatological: There is erythema of the dorsal lateral foot with some darkened/purplish appearance dorsal lateral fifth metatarsal head, which is improving. Sutures intact at plantar fifth metatarsal site, and sutures intact to the dorsal aspect of the fifth metatarsal amputation stump. Erythema is improving. There is some bloody strikethrough to the internal dressings postsurgical intervention. Musculoskeletal: Muscle strength 5 of 5 age-appropriate. Decreased range of motion of the ankle joint in dorsiflexion with the knee extended without pain orcrepitus. There is decreased range of motion of the first metatarsophalangeal joint. Skin no rashes or lesions noted, skin turgor normal and no jaundice Neuro moves all extremities Neuro Narrative: Decreased protective sensation to the plantar aspect of the foot consistent withdiabetic peripheral polyneuropathy Decreased light sensation to the foot Assessment & Plan Assessment/Plan (1) Type 2 diabetes mellitus with foot ulcer: (2) Diabetes mellitus with diabetic polyneuropathy: (3) 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 layer exposed: (4) Osteomyelitis: (5) Cellulitis of foot, right: PLAN: Plan Patient seen and evaluated He is s/p partial fifth ray amputation of the right foot. DOS 01/04/2023. POD #3 Imaging: Radiographs obtained of the right foot on 01/03/2023 demonstrate possible osteomyelitis of the fifth metatarsal head with some soft tissue air secondary to ulcer. MRI was obtained 01/03/2023, findings: Fifth metatarsal head and questionable second middle phalanx STIR hyperintensity and T1 hypointensity. Multiple tarsal and metatarsal lytic lesions. Impression: 1. Plantar skin defect to the level of the fifth metatarsal head with at the fifth metatarsal head and second middle phalanx suspicious for osteomyelitis. 2. Multiple lytic tarsal and metatarsal bone lesions are new compared to 08/09/2013. I have independently reviewed radiographic imaging and MRI and do concur with likely diagnosis of osteomyelitis of the fifth metatarsal head. Right foot: There is erythema of the dorsal lateral foot with some darkened/purplish appearance dorsal lateral fifth metatarsal head, which is improving. Sutures intact at plantar fifth metatarsal site, and sutures intact to the dorsal aspect of the fifth metatarsal amputation stump. Erythema is improving. There is some bloody strikethrough to the internal dressings postsurgical intervention. Incision sites painted with Betadine and dressed with Adaptic, 4 x 4 gauze, ABD,Kerlix, 4 inch Mio wrap rolled onto the foot. Dressing to be changed daily. Wound care nurse to assist in dressing changes. WBC 16.7 upon admission, decreased to 13.8 currently; last hemoglobin A1c 01/04/2023 was 7.6%. Blood cultures currently demonstrate no growth Tissue culture from 01/03/2023 prior to surgical intervention demonstrates Klebsiella oxytoca (ESBL neg), PsA, Streptococcus mitis Surgical cultures from 01/04/2023: Fifth toe demonstrates Streptococcus mitis, gram-positive cocci; tissue of the fifth metatarsal demonstrates Streptococcus mitis; fifth metatarsal bone demonstrates Streptococcus mitis. 1 g of vancomycin powder was placed about the fifth metatarsal prior to closure. Currently on IV Vanco/Zosyn All questions were answered to patient and satisfaction He is to remain nonweightbearing to the right foot with assistance of walker. He is to continue elevating right foot at all times of rest for postoperative edema control Pain: Currently denies pain secondary to diabetic peripheral polyneuropathy, however may take pain medication as needed. Medicine team currently following for medical management, they are greatly appreciated Infectious disease following for antibiotic management Wound care nurse following for assisting dressing changes Podiatry will continue to follow Please do not hesitate to call for any questions or concerns Jr[facility] [phone] 01/07/23812 <Electronically signed by Lane Rojas DPM> Lane Lobo Cosigner Signature (if applicable): CC: ~ Signed [facility] Work Phone: 1(113) 929-961307-02-2023 Progress note Author Lindsay Meza [facility] January 06, 2023 12:10pm Note Date/Time January 06, 2023 8:08a m [facility] Medical Records Department [address] [place] [address] Progress Note - Hospitalist 01/06/23801 MR#: [id number] Acct: [id number] Name: RODRI GALE Rep #:[id number] : 1955 67 From: Lindsay Meza MD PCP: Dr. Alo Avina MD Status:ADM IN [facility] Reason for Visit Reason for Visit: Diagnoses Type 2 diabetes mellitus with diabetic polyneuropathy (01/03/23) Type 2 diabetes mellitus with foot ulcer (01/03/23) Cellulitis of right lower limb (01/03/23) Local infection of the skin and subcutaneous tissue, unspecified (01/03/23) Non-pressure chronic ulcer of other part of unspecified foot with unspecified severity (01/03/23) Non-pressure chronic ulcer of other part of right foot with fat layer exposed (01/03/23) Osteomyelitis, unspecified (01/03/23) Subjective Subjective Did have some short of breath overnight was put on 2 L nasal cannula, overall isfeeling better today than he did yesterday however Objective Data Objective Data Vital Signs: Vital Signs Temp Pulse Resp BP Pulse Ox O2 Del Method O2 Flow Rate 99.5 F H 71 18 136/56 H 94 Nasal Cannula 3 01/06/23 03:11 01/06/23 03:11 01/06/23 03:11 01/06/23 03:11 01/06/23 03:11 01/06/23 03:11 01/06/23 03:11 Oxygen Flow Rate (L/min) 3 Oxygen Delivery Method Nasal Cannula Weight: 87.1 kg Body Mass Index (BMI) 27.5 Intake & Output: Intake and Output for Last 24 Hours 01/04/23 01/05/23 01/06/23 23:59 23:59 23:59 Intake Total 3425.00 / 3775.00 4065 / 4065 250 / 250 Output Total 900 / 1400 900 / 1250 350 / 350 Balance 2525.00 / 2375.00 3165 / 2815 -100 / -100 Lab / Micro Data 01/06/23 05:30 01/06/23 05:30 Labs: Laboratory Results - last 24 hr 01/05/23 11:16: POC Glucose 213 H 01/05/23 12:19: Vancomycin Trough 7.0 01/05/23 16:33: POC Glucose 235 H 01/05/23 21:03: POC Glucose 241 H 01/06/23 03:45: POC Glucose 185 H 01/06/23 05:30: WBC 15.2 H, RBC 3.63 L, Hgb 10.3 L, Hct 32.0 L, MCV 88.2, MCH 28.4, MCHC 32.2, RDW Std Deviation 41.1, RDW Coeff of Yung 12.7, Plt Count 294, MPV 10.5, Immature Gran % (Auto) 0.900, Neut % (Auto) 86.7 H, Lymph % (Auto) 4.7L, [place] % (Auto) 7.1, Eos % (Auto) 0.2, Baso % (Auto) 0.4, Absolute Neuts (auto)13.2 H, Absolute Lymphs (auto) 0.72 L, Nucleated RBC % 0, Sodium 137, Potassium 3.6, Chloride 110 H, Carbon Dioxide 20.0 L, Anion Gap 7, BUN 10, Creatinine 1.03, Estim Creat Clear Calc 71.86, Est GFR (MDRD) Af Amer 93, Est GFR (MDRD) Non-Af 76, BUN/Creatinine Ratio 9.7 L, Glucose 235 H, Calcium 8.7, Total Bilirubin 0.50, AST 16, ALT 12 L, Alkaline Phosphatase 49, Total Protein 6.4, Albumin 2.6 L, Globulin 3.8, Albumin/Globulin Ratio 0.7 L 01/06/23 07:12: POC Glucose 240 H Micro: Microbiology 01/03/23 17:10 Tissue Ulcer - Plantar Gram Stain - Final 01/03/23 17:10 Tissue Ulcer - Plantar Tissue Culture - Preliminary Klebsiella oxytoca Pseudomonas aeruginosa Gram positive organism 01/04/23 13:37 Tissue - 5th Metatarsal Bone Gram Stain - Final 01/04/23 13:37 Tissue - 5th Metatarsal Bone Wound Culture - Preliminary Alpha hemolytic organism 01/04/23 13:39 Tissue - 5th Toe Wound Culture - Preliminary Alpha hemolytic organism 01/04/23 13:34 Tissue - 5th Toe Gram Stain - Final 01/04/23 13:34 Tissue - 5th Toe Wound Culture - Preliminary Alpha hemolytic organism 01/03/23 12:23 Blood Culture (Wb) - Anticubital Right Blood Culture - Preliminary No growth in 48 hours. 01/03/23 11:26 Blood Culture (Wb) - Anticubital Right Blood Culture - Preliminary No growth in 48 hours. 01/03/23 12:29 Urine, Clean Catch Urine Culture - Final Culture exhibits no growth. 01/03/23 12:05 Mucosa - Nasopharyngeal Respiratory Panel (PCR) - Final Physical Exam Narrative General: Alert, oriented, no apparent distress HEENT: Atraumatic, normocephalic Eyes: Anicteric, normal conjunctiva, extraocular movements grossly intact Neck: Supple Respiratory: No significant wheezes or rhonchi, normal respiratory effort Cardiovascular: Regular rate and rhythm GI: Soft, nontender, nondistended Extremities: No significant edema, right foot wrapped Musculoskeletal: Moving all extremities Neuro: No overt focal neurological deficits, has tremor in both hands which he reports is chronic Skin: No rashes appreciated Psych: Cooperative Assessment & Plan Assessment/Plan (1) Cellulitis of foot, right: (2) Right foot infection: PLAN: Plan #Diabetic foot ulcer with osteomyelitis/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/status post renal transplant ? We will continue with his diabetic monitoring and make adjustments as necessary to his insulin ? Continue vancomycin and Zosyn ? We will consult podiatry ? MRI with osteomyelitis, will consult ID ? We will resume his home antirejection medications -01/05: Patient went to the OR with Dr. 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 Did spike temperature of 101.2 overnight, blood cultures pending. Preop cultures growing gram-negative howard and gram-positive organisms, Intra-Op cultures prelim with alphahemolytic organism, further speciation and cultures pending. Remains on vancomycin and Zosyn, ID following. Continue tacrolimus for history of kidney transplant. Will obtain tacrolimus level -01/06: Preliminary cultures with alphahemolytic organism intraoperatively, initial wound culture with Klebsiella and Pseudomonas, given patient is improving we will continue current antibiotics, blood cultures no growth to date. Infectious disease to reevaluate this week, continue to follow cultures #Hypoxia -Pt desaturated to 88% on RA last night with no hx of O2 use -Chest x-ray read pending -Patient on 3 L O2 with O2 sat of 94% -Patient has received IVF, is possible he could retain fluid -Hold further IVF, monitor clinically, chest x-ray reports no acute process #Type 2 diabetes mellitus -Glucose checks and sliding scale insulin -Also on glargine 25 nightly #HTN/HLD ? Blood stable ? Can resume his home blood pressure medications ? Resume his home cholesterol medications DVT: Lovenox subq Time spent in the patient's overall evaluation,decision-making process, review of diagnostic data, adjustment of management, discussion with other providers, nursing nursing and ancillary staff involved in patient's care documentation, 37minutes Charges/Coding Visit Charges Inpatient E&M: 35522 Subs Hosp L3 01/06/23 1210 <Electronically signed by Lindsay Meza MD> Cosigner Signature (if applicable): CC: ~ Signed [facility] Work Phone: 1(112) 625-598207-02-2023 Progress note Author [facility] January 06, 2023 4:31am Note Date/Time January 06, 2023 4:31a [facility] Medical Records Department [address] [place] [address] Progress Note - Hospitalist 01/06/23 043 MR#: [id number] Acct: [id number] Name: RODRI GALE Rep #:[id number] : 1955 67 From: Kenya Scott MD PCP: Dr. Alo Avina MD Status:ADM IN Location: [place] [address] Hospitalist Note Patient with increased oxygenation requirements, encouraged aggressive IS, will obtain AM CXR. 01/06/23430 <Electronically signed by Kenya Scott MD> Cosigner Signature (if applicable): CC: ~ Signed [facility] Work Phone: 1(206) 145-431607-01-[address] [facility] January 05, 2023 3:01pm Note Date/Time January 05, 2023 2:58p [facility] Medical Records Department [address] [place] [address] Progress Note 01/05/23 1447 MR#: [id number] Acct: [id number] Name: RODRI GALE Rep #:[id number] : 1955 67 From: Lane turcios DPM PCP: Dr. Alo Avina MD Status:ADM IN Location: [place] [address] Subjective Subjective Patient seen this afternoon resting bedside in chair with feet elevated. is present. Denies any pain. States he was up to go to the bathroom and did remain nonweightbearing to the right foot. Therapy did come into begin working with him to maintain nonweightbearing status of the right lower extremity. Nursing states he did spike fever overnight, however patient states he feels pretty good currently. He denies further complaints. Objective Data Objective Data Vital Signs: Vital Signs Temp Pulse Resp BP Pulse Ox O2 Del Method O2 Flow Rate 98.3 F 73 18 162/57 H 92 Room Air 2 01/05/23 08:42 01/05/23 08:42 01/05/23 08:42 01/05/23 08:42 01/05/23 08:42 01/05/23 09:00 01/04/23 17:11 Oxygen Flow Rate (L/min) 2 Oxygen Delivery Method Room Air Weight: 87.1 kg Body Mass Index (BMI) 27.5 Intake & Output: Intake and Output for Last 24 Hours 01/03/23 01/04/23 01/05/23 23:59 23:59 23:59 Intake Total 1225 / 1225 3425.00 / 3775.00 2515 / 2515 Output Total 900 / 1400 900 / 900 Balance 1225 / 1225 2525.00 / 2375.00 1615 / 1615 Lab / Micro Data 01/05/23 05:27 01/05/23 05:27 Labs: Laboratory Results - last 24 hr 01/04/23 14:40: POC Glucose 178 H 01/04/23 15:15: Sodium 142, Potassium 4.4, Chloride 113 H, Carbon Dioxide 21.0, Anion Gap 8, BUN 16, Creatinine 1.21, Estim Creat Clear Calc 61.17, Est GFR (MDRD) Af Amer 77, Est GFR (MDRD) Non-Af 64, BUN/Creatinine Ratio 13.2, Glucose 186 H, Calcium 8.7, Magnesium 2.2, Total Bilirubin 0.40, AST 11 L, ALT 11 L, Alkaline Phosphatase 50, Troponin I High Sens 14, Total Protein 6.4, Albumin 3.0L, Globulin 3.4, Albumin/Globulin Ratio 0.9 01/04/23 17:04: POC Glucose 184 H 01/04/23 20:33: POC Glucose 207 H 01/05/23 00:42: Vancomycin Trough 4.9 L 01/05/23 05:27: WBC 13.6 H, RBC 3.77 L, Hgb 10.8 L, Hct 33.7 L, MCV 89.4, MCH 28.6, MCHC 32.0, RDW Std Deviation 41.6, RDW Coeff of Yung 12.8, Plt Count 276, MPV 10.5, Immature Gran % (Auto) 0.700, Neut % (Auto) 82.7 H, Lymph % (Auto) 6.3L, [place] % (Auto) 9.0, Eos % (Auto) 0.9, Baso % (Auto) 0.4, Absolute Neuts (auto)11.2 H, Absolute Lymphs (auto) 0.85, Nucleated RBC % 0, Sodium 143, Potassium 3.7, Chloride 116 H, Carbon Dioxide 20.0 L, Anion Gap 7, BUN 14, Creatinine 1.07, Estim Creat Clear Calc 69.17, Est GFR (MDRD) Af Amer 89, Est GFR (MDRD) Non-Af 73, BUN/Creatinine Ratio 13.1, Glucose 155 H, Calcium 8.9 01/05/23 06:16: POC Glucose 155 H 01/05/23 11:16: POC Glucose 213 H 01/05/23 12:19: Vancomycin Trough 7.0 Micro: Microbiology 01/04/23 13:37 Tissue - 5th Metatarsal Bone Gram Stain - Final 01/04/23 13:37 Tissue - 5th Metatarsal Bone Wound Culture - Preliminary Alpha hemolytic organism 01/04/23 13:39 Tissue - 5th Toe Wound Culture - Preliminary Alpha hemolytic organism 01/04/23 13:34 Tissue - 5th Toe Gram Stain - Final 01/04/23 13:34 Tissue - 5th Toe Wound Culture - Preliminary Alpha hemolytic organism 01/03/23 12:23 Blood Culture (Wb) - Anticubital Right Blood Culture - Preliminary No growth in 48 hours. 01/03/23 11:26 Blood Culture (Wb) - Anticubital Right Blood Culture - Preliminary No growth in 48 hours. 01/03/23 17:10 Tissue Ulcer - Plantar Gram Stain - Final 01/03/23 17:10 Tissue Ulcer - Plantar Tissue Culture - Preliminary Gram negative howard Gram negative howard#2 Gram positive organism 01/03/23 12:29 Urine, Clean Catch Urine Culture - Final Culture exhibits no growth. 01/03/23 12:05 Mucosa - Nasopharyngeal Respiratory Panel (PCR) - Final Radiography Diagnostic Testing: Radiology Impression Foot X-Ray 01/04/23 12:28 IMPRESSION: undefined Foot X-Ray 01/04/23 21:45 IMPRESSION: Status post recent transmetatarsal amputation of the fifth digit. Electronically Signed: Marco Yates MD at 22:28 EDT , Physical Exam Const alert, oriented x3 and no apparent distress General Appearance: cooperative HEENT normocephalic Eyes General Eye: normal appearance of both eyes Neck General: normal visual inspection Lymph Lymphatic: no lymphadenopathy noted and no lymphedema noted Resp normal respiratory effort Cardio regular rate and regular rhythm Extremity normal capillary refill, no joint enlargement, no calf tenderness and no pedal edema Extremity Narrative: DP and PT pulses palpable with adequate capillary fill time to the right foot. Dermatological: There is erythema of the dorsal lateral foot with some darkened/purplish appearance dorsal lateral fifth metatarsal head, which is improving. Sutures intact at plantar fifth metatarsal site, and sutures intact to the dorsal aspect of the fifth metatarsal amputation stump. Erythema is improving. There is some bloody strikethrough to the internal dressings postsurgical intervention. Musculoskeletal: Muscle strength 5 of 5 age-appropriate. Decreased range of motion of the ankle joint in dorsiflexion with the knee extended without pain orcrepitus. There is decreased range of motion of the first metatarsophalangeal joint. Skin no rashes or lesions noted, skin turgor normal and no jaundice Neuro moves all extremities Neuro Narrative: Decreased protective sensation to the plantar aspect of the foot consistent withdiabetic peripheral polyneuropathy Decreased light sensation to the foot Assessment & Plan Assessment/Plan (1) Type 2 diabetes mellitus with foot ulcer: (2) Diabetes mellitus with diabetic polyneuropathy: (3) 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 layer exposed: (4) Osteomyelitis: (5) Cellulitis of foot, right: PLAN: Plan Patient seen and evaluated He is s/p partial fifth ray amputation of the right foot. DOS 01/04/2023. POD #1 Imaging: Radiographs obtained of the right foot on 01/03/2023 demonstrate possible osteomyelitis of the fifth metatarsal head with some soft tissue air secondary to ulcer. MRI was obtained 01/03/2023, findings: Fifth metatarsal head and questionable second middle phalanx STIR hyperintensity and T1 hypointensity. Multiple tarsal and metatarsal lytic lesions. Impression: 1. Plantar skin defect to the level of the fifth metatarsal head with at the fifth metatarsal head and second middle phalanx suspicious for osteomyelitis. 2. Multiple lytic tarsal and metatarsal bone lesions are new compared to 08/09/2013. I have independently reviewed radiographic imaging and MRI and do concur with likely diagnosis of osteomyelitis of the fifth metatarsal head. Right foot: There is erythema of the dorsal lateral foot with some darkened/purplish appearance dorsal lateral fifth metatarsal head, which is improving. Sutures intact at plantar fifth metatarsal site, and sutures intact to the dorsal aspect of the fifth metatarsal amputation stump. Erythema is improving. There is some bloody strikethrough to the internal dressings postsurgical intervention. Incision sites painted with Betadine and dressed with Adaptic, 4 x 4 gauze, ABD,Kerlix, 4 inch Mio wrap rolled onto the foot. Dressing to be changed daily. Wound care nurse to assist in dressing changes. WBC 16.7 upon admission, decreased to 13.6 currently; last hemoglobin A1c 11/28/2022 was 8%. Blood cultures currently demonstrate no growth Tissue culture from 01/03/2023 prior to surgical intervention demonstrates gram-negative howard x2 and gram-positive organism Surgical cultures from 01/04/2023: Fifth toe demonstrates alphahemolytic organism, gram-positive cocci; tissue of the fifth metatarsal demonstrates alphahemolytic organism; fifth metatarsal bone demonstrates alphahemolytic organism. 1 g of vancomycin powder was placed about the fifth metatarsal prior to closure. Currently on IV Vanco/Zosyn All questions were answered to patient and satisfaction He is to remain nonweightbearing to the right foot with assistance of walker. He is to continue elevating right foot at all times of rest for postoperative edema control Pain: Currently denies pain secondary to diabetic peripheral polyneuropathy, however may take pain medication as needed. Medicine team currently following for medical management, they are greatly appreciated Infectious disease following for antibiotic management Wound care nurse following for assisting dressing changes Podiatry will continue to follow Please do not hesitate to call for any questions or concerns Lane Rojas Jr. D.P.M. [facility] [phone] 01/05/23 1501 <Electronically signed by Lane Rojas DPM> Lane Lobo Cosigner Signature (if applicable): CC: ~ Signed [facility] Work Phone: [phone]) 158-717407-01-2023 Consult note Author Ryan Vázquez [facility] January 05, 2023 2:53pm Note Date/Time January 05, 2023 2:54p m [facility] Medical Records Department [address] [place] [address] Pharmacokinetic/Renal -Consult 01/05/23 1448 MR#: [id number] Acct: [id number] Name: RODRI GALE Rep #:[id number] : 1955 67 From: Ryan Lance [facility] PCP: Dr. Alo Avina MD Status:ADM IN Location: [facility] [id number] Consult Antibiotic Management Pharmacy has been consulted to manage selected antiobiotic: Vancomycin Type of Intervention Type of Consult: Follow-up Suspected Infection Suspected Infection: Osteomyelitis Labs Labs: Sodium 143 mmol/L (136-145) 01/05/23 05:27 Potassium 3.7 mmol/L (3.5-5.1) 01/05/23 05:27 Chloride 116 mmol/L (98-107) H 01/05/23 05:27 Carbon Dioxide 20.0 mmol/L (21.0-32.0) L 01/05/23 05:27 Anion Gap 7 (5-15) 01/05/23 05:27 BUN 14 mg/dL (7-18) 01/05/23 05:27 Creatinine 1.07 mg/dL (0.70-1.30) 01/05/23 05:27 Est GFR (MDRD) Af Amer 89 mL/min (>60) 01/05/23 05:27 Est GFR (MDRD) Non-Af 73 mL/min (>60) 01/05/23 05:27 BUN/Creatinine Ratio 13.1 RATIO (10-20) 01/05/23 05:27 Glucose 155 mg/dL (74-106) H 01/05/23 05:27 Vancomycin Trough 7.0 ug/mL (5.0-15.0) 01/05/23 12:19 Microbiology Microbiology: Microbiology 01/04/23 13:37 Tissue - 5th Metatarsal Bone Gram Stain - Final 01/04/23 13:37 Tissue - 5th Metatarsal Bone Wound Culture - Preliminary Alpha hemolytic organism 01/04/23 13:39 Tissue - 5th Toe Wound Culture - Preliminary Alpha hemolytic organism 01/04/23 13:34 Tissue - 5th Toe Gram Stain - Final 01/04/23 13:34 Tissue - 5th Toe Wound Culture - Preliminary Alpha hemolytic organism 01/03/23 12:23 Blood Culture (Wb) - Anticubital Right Blood Culture - Preliminary No growth in 48 hours. 01/03/23 11:26 Blood Culture (Wb) - Anticubital Right Blood Culture - Preliminary No growth in 48 hours. 01/03/23 17:10 Tissue Ulcer - Plantar Gram Stain - Final 01/03/23 17:10 Tissue Ulcer - Plantar Tissue Culture - Preliminary Gram negative howard Gram negative howard#2 Gram positive organism 01/03/23 12:29 Urine, Clean Catch Urine Culture - Final Culture exhibits no growth. 01/03/23 12:05 Mucosa - Nasopharyngeal Respiratory Panel (PCR) - Final Dosing Weight Weight used for dosin.1 kg Goal Trough Goal Trough: 15-20 mcg/mL Pharmacy Plan for Drug Dosing Pharmacy Plan for Drug Dosing: VANCOMYCIN LEVEL RECEIVED Current Vancomycin Dose: 750mg q12h () Number of Doses Received: x1 1250mg dose, x2 750mg doses (+1 dose missed due to surgery) Vancomycin Level: 7.0 Hours Since Last Dose: 11 hours since last dose Renal Function: SrCr 1.07 Renal Function Trend: SrCr stable Lab/Micro: Vancomycin Plan/Comments: Note: pt is on rejection medications for previous kidney transplant. Resulted trough of is below the ordered goal trough of 15-20.due to previous kidney transplant, recommend a judicious increase in dose to 1000mg q12h. check trough prior to the 4th dose Pending Level: 01/07/23 at 0230 Pharmacy Service will continue to monitor and adjust dosing as required. Follow-Up Labs Follow-Up Labs: Trough: Vancomycin (01/07/23 @ 0230) 01/05/23 2813 <Electronically signed by Ryan Garcia [facility]> Date _ Ryan Mejía Gurpreet RP Cosigner Signature (if applicable): Date CC: ~ Signed [facility] Work Phone: [phone]) 507-367807-01-2023 Progress note Author Lindsay Meza [facility] January 05, 2023 11:34am Note Date/Time January 05, 2023 8:04a m [facility] Medical Records Department [address] [place] [address] Progress Note - Hospitalist 01/05/23 0759 MR#: [id number] Acct: [id number] Name: RODRI GALE Rep #:[id number] : 1955 67 From: Lindsay Meza MD PCP: Dr. Alo Avina MD Status:ADM IN Location: [place] [id number] Reason for Visit Reason for Visit: Diagnoses Type 2 diabetes mellitus with diabetic polyneuropathy (01/03/23) Type 2 diabetes mellitus with foot ulcer (01/03/23) Cellulitis of right lower limb (01/03/23) Local infection of the skin and subcutaneous tissue, unspecified (01/03/23) Non-pressure chronic ulcer of other part of unspecified foot with unspecified severity (01/03/23) Non-pressure chronic ulcer of other part of right foot with fat layer exposed (01/03/23) Osteomyelitis, unspecified (01/03/23) Subjective Subjective Patient denies any pain this a.m., feeling fairly well. Was up and able to go to the bathroom. Objective Data Objective Data Vital Signs: Vital Signs Temp Pulse Resp BP Pulse Ox O2 Del Method O2 Flow Rate 99.5 F H 72 18 142/58 H 93 Room Air 2 01/05/23 03:01 01/05/23 03:01 01/05/23 03:01 01/05/23 03:01 01/05/23 03:01 01/05/23 03:01 01/04/23 17:11 Oxygen Flow Rate (L/min) 2 Oxygen Delivery Method Room Air Weight: 87.1 kg Body Mass Index (BMI) 27.5 Intake & Output: Intake and Output for Last 24 Hours 01/03/23 01/04/23 01/05/23 23:59 23:59 23:59 Intake Total 1225 / 1225 3425.00 / 3775.00 2115 / 2115 Output Total 900 / 1400 900 / 900 Balance 1225 / 1225 2525.00 / 2375.00 1215 / 1215 Lab / Micro Data 01/05/23 05:27 01/05/23 05:27 Labs: Laboratory Results - last 24 hr 01/03/23 11:26: Diff Path Review Reviewed 01/04/23 10:47: POC Glucose 150 H 01/04/23 14:40: POC Glucose 178 H 01/04/23 15:15: Sodium 142, Potassium 4.4, Chloride 113 H, Carbon Dioxide 21.0, Anion Gap 8, BUN 16, Creatinine 1.21, Estim Creat Clear Calc 61.17, Est GFR (MDRD) Af Amer 77, Est GFR (MDRD) Non-Af 64, BUN/Creatinine Ratio 13.2, Glucose 186 H, Calcium 8.7, Magnesium 2.2, Total Bilirubin 0.40, AST 11 L, ALT 11 L, Alkaline Phosphatase 50, Troponin I High Sens 14, Total Protein 6.4, Albumin 3.0L, Globulin 3.4, Albumin/Globulin Ratio 0.9 01/04/23 17:04: POC Glucose 184 H 01/04/23 20:33: POC Glucose 207 H 01/05/23 00:42: Vancomycin Trough 4.9 L 01/05/23 05:27: WBC 13.6 H, RBC 3.77 L, Hgb 10.8 L, Hct 33.7 L, MCV 89.4, MCH 28.6, MCHC 32.0, RDW Std Deviation 41.6, RDW Coeff of Yung 12.8, Plt Count 276, MPV 10.5, Immature Gran % (Auto) 0.700, Neut % (Auto) 82.7 H, Lymph % (Auto) 6.3L, [place] % (Auto) 9.0, Eos % (Auto) 0.9, Baso % (Auto) 0.4, Absolute Neuts (auto)11.2 H, Absolute Lymphs (auto) 0.85, Nucleated RBC % 0, Sodium 143, Potassium 3.7, Chloride 116 H, Carbon Dioxide 20.0 L, Anion Gap 7, BUN 14, Creatinine 1.07, Estim Creat Clear Calc 69.17, Est GFR (MDRD) Af Amer 89, Est GFR (MDRD) Non-Af 73, BUN/Creatinine Ratio 13.1, Glucose 155 H, Calcium 8.9 01/05/23 06:16: POC Glucose 155 H Micro: Microbiology 01/03/23 12:29 Urine, Clean Catch Urine Culture - Final Culture exhibits no growth. 01/03/23 17:10 Tissue Ulcer - Plantar Gram Stain - Final 01/03/23 17:10 Tissue Ulcer - Plantar Tissue Culture - Preliminary Mixed Gram Pos & Gram Neg Org 01/03/23 12:05 Mucosa - Nasopharyngeal Respiratory Panel (PCR) - Final Radiography Diagnostic Testing: Radiology Impression Foot X-Ray 01/04/23 12:28 IMPRESSION: undefined Foot X-Ray 01/04/23 21:45 IMPRESSION: Status post recent transmetatarsal amputation of the fifth digit. Electronically Signed: Marco Yates MD at 22:28 EDT , Physical Exam Narrative General: Alert, oriented, no apparent distress HEENT: Atraumatic, normocephalic Eyes: Anicteric, normal conjunctiva, extraocular movements grossly intact Neck: Supple Respiratory: Clear to auscultation bilaterally, normal respiratory effort Cardiovascular: Regular rate and rhythm GI: Soft, nontender, nondistended Extremities: No edema, right foot wrapped Musculoskeletal: Moving all extremities Neuro: No overt focal neurological deficits, has tremor in both hands which he reports is chronic Skin: No rashes appreciated Psych: Cooperative Assessment & Plan Assessment/Plan (1) Cellulitis of foot, right: (2) Right foot infection: PLAN: Plan 1. Diabetic foot ulcer with osteomyelitis/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/status post renal transplant ? We will continue with his diabetic monitoring and make adjustments as necessary to his insulin ? Continue vancomycin and Zosyn ? We will consult podiatry ? MRI with osteomyelitis, will consult ID ? We will resume his home antirejection medications -01/05: Patient went to the OR with Dr. 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 Did spike temperature of 101.2 overnight, blood cultures pending. Preop cultures growing gram-negative howard and gram-positive organisms, Intra-Op cultures prelim with alphahemolytic organism, further speciation and cultures pending. Remains on vancomycin and Zosyn, ID following. Continue tacrolimus for history of kidney transplant. Will obtain tacrolimus level 2. Type 2 diabetes mellitus -Glucose checks and sliding scale insulin -Also on glargine 25 nightly 3. HTN/HLD ? Blood stable ? Can resume his home blood pressure medications ? Resume his home cholesterol medications DVT: Lovenox subq Time spent in the patient's overall evaluation,decision-making process, review of diagnostic data, adjustment of management, discussion with other providers, nursing nursing and ancillary staff involved in patient's care documentation, 37minutes Charges/Coding Visit Charges Inpatient E&M: 15772 Subs Hosp L3 01/05/23 1134 <Electronically signed by Lindsay Meza MD> Cosigner Signature (if applicable): CC: ~ Signed [facility] Work Phone: 1(863) 824-459307-01-2023 Consult note Author Mary Catherine [facility] January 05, 2023 2:13am Note Date/Time January 05, 2023 2:13a m [facility] Medical Records Department [address] [place] [address] Pharmacokinetic/Renal -Consult 01/05/23 0212 MR#: [id number] Acct: [id number] Name: RODRI GALE Rep #:[id number] : 1955 67 From: Mary Catherine PCP: Dr. Alo Avina MD Status:ADM IN Y [id number] Antibiotic Management Pharmacy has been consulted to manage selected antiobiotic: Vancomycin Type of Intervention Type of Consult: Follow-up Suspected Infection Suspected Infection: Skin/Soft tissue Labs Labs: Sodium 142 mmol/L (136-145) 01/04/23 15:15 Potassium 4.4 mmol/L (3.5-5.1) 01/04/23 15:15 Chloride 113 mmol/L (98-107) H 01/04/23 15:15 Carbon Dioxide 21.0 mmol/L (21.0-32.0) 01/04/23 15:15 Anion Gap 8 (5-15) 01/04/23 15:15 BUN 16 mg/dL (7-18) 01/04/23 15:15 Creatinine 1.21 mg/dL (0.70-1.30) 01/04/23 15:15 Est GFR (MDRD) Af Amer 77 mL/min (>60) 01/04/23 15:15 Est GFR (MDRD) Non-Af 64 mL/min (>60) 01/04/23 15:15 BUN/Creatinine Ratio 13.2 RATIO (10-20) 01/04/23 15:15 Glucose 186 mg/dL (74-106) H 01/04/23 15:15 Vancomycin Trough 4.9 ug/mL (5.0-15.0) L 01/05/23 00:42 Microbiology Microbiology: Microbiology 01/03/23 17:10 Tissue Ulcer - Plantar Gram Stain - Final 01/03/23 17:10 Tissue Ulcer - Plantar Tissue Culture - Preliminary Mixed Gram Pos & Gram Neg Org 01/03/23 12:29 Urine, Clean Catch Urine Culture - Preliminary Culture exhibits no growth. 01/03/23 12:05 Mucosa - Nasopharyngeal Respiratory Panel (PCR) - Final Goal Trough Goal Trough: 15-20 mcg/mL Pharmacy Plan for Drug Dosing Pharmacy Plan for Drug Dosing: VANCOMYCIN LEVEL RECEIVED Current Vancomycin Dose: Number of Doses Received: 2 (POSSIBLY 3 - SEE BELOW) Vancomycin Level: 4.9 Hours Since Last Dose: ?? Renal Function: 1.21 Renal Function Trend: STABLE Lab/Micro: PENDING Vancomycin Plan/Comments: Patient had a trough drawn which resulted in a value of 4.9 (goal 15-20). Of note; the patient had surgery today and nursing documentation said vancomycin was given in OR, no time noted. When reading the surgical note; it stated vancomycin powder was applied to the site. It is uncertain when the last dose of vancomycin was given, so trough is likely incorrect. Patient's 0100 dose was already hanging once trough resulted. In light of this, will continue current dose and recheck a trough prior to the nextlevel. This should be a more accurate representation of a true trough. Pending Level: 01/05/23 @1230 Pharmacy Service will continue to monitor and adjust dosing as required. 01/05/23 021 <Electronically signed by Mary Catherine > Date _ Mary Catherine Cosigner Signature (if applicable): Date CC: ~ Signed [facility] Work Phone: 1(532) 124-616906-30-2023 Procedure [facility] 01-04-2023 Progress note Author Smooth Jordan [facility] January 04, 2023 1:45pm Note Date/Time January 04, 2023 1:45 pm [facility] Medical Records Department [address] [place] [address] Progress Note - Infect Disease 01/04/23 1344 MR#: [id number] Acct: [id number] Name: RODRI GALE Rep #:[id number] : 1955 67 From: Smooth menchaca MD PCP: Dr. Alo Avina MD Status:ADM IN Location: [place] [address] ID ID: Route of nutrition/ use of supplements: [] Nutritional Intake: [] IV Site: [] Morrissey Catheter: [] Assessment & Plan Assessment/Plan (1) Osteomyelitis: PLAN: Pt in OR, agree with current empiric abx. Reviewed labs, micro, imaging. Full consult to be done next week. 01/04/235 <Electronically signed by Smooth Jordan MD> Cosigner Signature (if applicable): CC: ~ Signed [facility] Work Phone: [phone]) 573-918506-30-2023 Progress note Author Ryan Rahman [facility] January 04, 2023 11:07am Note Date/Time January 04, 2023 11:0 7am [facility] Medical Records Department [address] [place] [address] Progress Note - Hospitalist 01/04/23 1106 MR#: [id number] Acct: [id number] Name: RODRI GALE Rep #:[id number] : 1955 67 From: Ryan roper MD PCP: Dr. Alo Avina MD Status:ADM IN Location: [facility] [id number] Subjective Subjective Doing well, no issues overnight. Right lower extremity is dressed Objective Data Objective Data Vital Signs: Vital Signs Temp Pulse Resp BP Pulse Ox O2 Del Method 99.4 F H 68 16 135/58 H 95 Room Air 01/04/23 11:02 01/04/23 11:02 01/04/23 11:02 01/04/23 11:02 01/04/23 11:02 01/04/23 11:02 Oxygen Delivery Method Room Air Weight: 192 lb 0.362 oz Body Mass Index (BMI) 27.5 Intake & Output: Intake and Output for Last 24 Hours 01/03/23 01/04/23 01/05/23 03:59 03:59 03:59 Intake Total 2766.67 / 2766.67 900 / 900 Output Total 300 / 300 Balance 2766.67 / 2766.67 600 / 600 Lab / Micro Data 01/04/23 05:30 01/04/23 05:30 Labs: Laboratory Results - last 24 hr 01/03/23 11:26: WBC 16.7 H, RBC 4.16 L, Hgb 11.8 L, Hct 35.9 L, MCV 86.3, MCH 28.4, MCHC 32.9, RDW Std Deviation 39.6, RDW Coeff of Yung 12.6, Plt Count 251, MPV 10.0, Immature Gran % (Auto) 0.500, Neut % (Auto) 82.9 H, Lymph % (Auto) 5.3L, [place] % (Auto) 10.9 H, Eos % (Auto) 0.1, Baso % (Auto) 0.3, Absolute Neuts (auto) 13.8 H, Absolute Lymphs (auto) 0.89, Nucleated RBC % 0, Differential Comment COMMENT, Diff Path Review Reviewed, PT 14.1, INR 1.1, APTT 27.6, Sodium 137, Potassium 4.0, Chloride 104, Carbon Dioxide 24.0, Anion Gap 9, BUN 20 H, Creatinine 1.37 H, Estim Creat Clear Calc 54.02, Est GFR (MDRD) Af Amer 67, Est GFR (MDRD) Non-Af 55 L, BUN/Creatinine Ratio 14.6, Glucose 185 H, Lactic Acid 1.3, Calcium 9.1, Total Bilirubin 0.50, AST 13 L, ALT 14 L, Alkaline [id number], Total Protein 7.4, Albumin 3.8, Globulin 3.6, Albumin/Globulin Ratio 1.1 01/03/23 12:29: Urine Color Yellow, Urine Clarity Clear, Urine pH 5.0, Ur Specific [place] 1.020, Urine Protein 30 H, Urine Glucose (UA) Normal, Urine Ketones 5 H, Urine Occult Blood Negative, Urine Nitrite Negative, Urine Bilirubin Negative, Urine Urobilinogen Normal, Ur Leukocyte Esterase 25 H, UrineRBC 0 SEEN, Urine WBC 0-5 SEEN, Ur Squamous Epith Cells 0-5 SEEN, Urine Bacteria0 SEEN, Urine Mucus 0 SEEN 01/03/23 16:15: POC Glucose 214 H 01/03/23 20:50: POC Glucose 186 H 01/04/23 05:30: WBC 12.3 H, RBC 3.68 L, Hgb 10.7 L, Hct 32.0 L, MCV 87.0, MCH 29.1, MCHC 33.4, RDW Std Deviation 40.2, RDW Coeff of Yung 12.7, Plt Count 230, MPV 10.1, Immature Gran % (Auto) 0.300, Neut % (Auto) 78.2 H, Lymph % (Auto) 9.4L, [place] % (Auto) 11.3 H, Eos % (Auto) 0.4, Baso % (Auto) 0.4, Absolute Neuts (auto) 9.7 H, Absolute Lymphs (auto) 1.16, Nucleated RBC % 0, Sodium 141, Potassium 3.8, Chloride 113 H, Carbon Dioxide 22.0, Anion Gap 6, BUN 15, Creatinine 1.09, Estim Creat Clear Calc 67.90, Est GFR (MDRD) Af Amer 87, Est GFR (MDRD) Non-Af 72, BUN/Creatinine Ratio 13.8, Glucose 154 H, Hemoglobin A1c 7.6 H, Calcium 8.3 L 01/04/23 06:26: POC Glucose 165 H 01/04/23 10:47: POC Glucose 150 H Micro: Microbiology 01/03/23 17:10 Tissue Ulcer - Plantar Tissue Culture - Preliminary Mixed Gram Pos & Gram Neg Org 01/03/23 12:29 Urine, Clean Catch Urine Culture - Preliminary Culture exhibits no growth. 01/03/23 12:05 Mucosa - Nasopharyngeal Respiratory Panel (PCR) - Final Radiography Diagnostic Testing: Radiology Impression Chest X-Ray 01/03/23 11:19 IMPRESSION: Borderline cardiomegaly. The lungs are clear. Electronically Signed: Yamil Hsu MD at 12:27 EDT , Foot X-Ray 01/03/23 11:23 IMPRESSION: Findings suggestive of possible osteomyelitis of the fifth metatarsophalangeal joint with overlying soft tissue swelling. Small amount of air is seen within the soft tissues. Electronically Signed: Yamil Hsu MD at 12:28 EDT , Lower Extremity MRI 01/03/23 13:14 IMPRESSION: 1. Plantar skin defect to the level of the fifth metatarsal head with at the fifth metatarsal head and second middle phalanx suspicious for osteomyelitis. 2. Multiple lytic tarsal and metatarsal bones lesions are new compared to 08/09/2013. Electronically Signed: Julius Hoff MD at 18:53 EDT , Physical Exam Narrative General: Alert, Oriented x3, Cooperative, No apparent distress HEENT: Atraumatic, PERRLA, EOMI, Normocephalic Oral: Moist Mucosa Neck: Supple, No JVD Lungs: Diminished, Normal air movement, No rhonchi, No wheeze, No rales Cardiovascular: Regular rate, Regular Rhythm, Normal S1, Normal S2, No murmurs Abdomen: Soft, Non Tender, Non-Distended, No Hepato-splenomegaly Extremities: No edema, Capillary Refill Less than 3 Seconds Skin: He does have an open wound at the head of his fifth metatarsal on the ballof his foot on the right with redness on the top of his foot, currently dressed Musculoskeletal: No Tenderness to Palpation of Joints or Extremities Neurological: Motor Exam 5/5 strength throughout, diminished sensation in bilateral legs Psych/Mental Status: Normal Affect, Appropriate Assessment & Plan Assessment/Plan (1) Cellulitis of foot, right: (2) Right foot infection: PLAN: Plan 1. Diabetic foot ulcer with osteomyelitis/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/status post renal transplant ? We will continue with his diabetic monitoring and make adjustments as necessary to his insulin ? Continue vancomycin and Zosyn ? We will consult podiatry ? MRI with osteomyelitis, will consult ID ? We will resume his home antirejection medications 2. HTN/HLD ? Blood stable ? Can resume his home blood pressure medications ? Resume his home cholesterol medications DVT: Lovenox Charges/Coding Visit Charges Inpatient E&M: 39488 Subs Hosp L2 01/04/23 1107 <Electronically signed by Ryan Rahman MD> Cosigner Signature (if applicable): CC: ~ Signed [facility] Work Phone: [phone]) 300-396806-29-20[address] note [address] Rojas [facility] January 03, 2023 8:40pm Note Date/Time January 03, 2023 5:36 pm [facility] Medical Records Department [address] [place] [address] Consultation 01/03/23 1736 MR#: [id number] Acct: [id number] Name: RODRI GALE Rep #:[id number] : 1955 67 From: Lane turcios DPM PCP: Dr. Alo Avina MD Status:ADM IN Location: [facility] [id number] Assessment & Plan Assessment/Plan (1) Osteomyelitis: (2) Cellulitis of foot, right: (3) Right foot infection: (4) 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 layer exposed: (5) Diabetes mellitus with diabetic polyneuropathy: (6) Type 2 diabetes mellitus with foot ulcer: PLAN: Plan Patient seen and evaluated Right foot: There is erythema of the dorsal lateral foot with some darkened/purplish appearance dorsal lateral fifth metatarsal head. There is an ulceration Sub fifth metatarsal head with surrounding hyperkeratosis. There is some darkened appearing necrotic tissue at the base of the ulcer with some malodor noted. No erythema about the ulcerative site. No purulent drainage, no palpable fluctuance/bogginess noted, no visible abscess formation, no lymphangitic streaking. Ulceration does probe close to bone. Ulceration measures 2 cm x 1.5 cm x 0.4 cm Following verbal permission ulceration did undergo sharp excisional debridement to the level of subcutaneous tissue utilizing forceps and a #15 blade. 100% of the ulcerative site was debrided. Debridement consisted of fibrous, devitalizedsubcutaneous, biofilm, slough. No local anesthetic required secondary to patient's peripheral diabetic polyneuropathy. During debridement tissue sample was obtained of necrotic tissue and sent to microbiology for culture. Healthy bleeding tissue was noted. Hemostasis was achieved with pressure and gauze. Patient tolerated procedure well. Following debridement site was dressed with Dakin's wet to dry, ABD, Kerlix, Acewrap rolled onto the foot. Dressing to be changed daily. Wound care nurse to assist in dressing changes. WBC 16.7 upon admission, lactic acid 1.3, glucose 185, albumin 3.8, creatinine 1.3, last hemoglobin A1c 11/28/2022 was 8%. Currently on IV Vanco/Zosyn Imaging: Radiographs obtained of the right foot on 01/03/2023 demonstrate possible osteomyelitis of the fifth metatarsal head with some soft tissue air secondary to ulcer. MRI was obtained 01/03/2023, findings: Fifth metatarsal head and questionable second middle phalanx STIR hyperintensity and T1 hypointensity. Multiple tarsal and metatarsal lytic lesions. Impression: 1. Plantar skin defect to the level of the fifth metatarsal head with at the fifth metatarsal head and second middle phalanx suspicious for osteomyelitis. 2. Multiple lytic tarsal and metatarsal bone lesions are new compared to 08/09/2013. I have independently reviewed radiographic imaging and MRI and do concur with likely diagnosis of osteomyelitis of the fifth metatarsal head. I discussed with the patient the results of the MRI and radiographic imaging that is suggestive of osteomyelitis of the fifth metatarsal head and middle phalanx. I discussed performing a partial fifth ray amputation of the right foot. I discussed with patient and that this is not an elective procedure and this is a limb salvage procedure necessary to prevent spread of further infection of tissue and bone and to prevent further loss of tissue/bone or more proximal amputation. I discussed the procedure in great detail. Discussed the rationale of the procedure in detail. Discussed the risk and complications of the procedure in detail. I discussed the risks include but are not limited to the following: Pain, continued pain, phantom pain, complex regional pain syndrome, neuritis/numbness, poor cosmetic result, scarring, dehiscence, infection, swelling, delayed healing, nonhealing, deformity, continued deformity, difficulty wearing shoe gear, difficulty with ambulation, transfer lesion, digital deformity, hematoma, blood clot, stroke, loss of function, loss of limb, loss of life. Patient was able to voice understanding of these and repeat these back. Patient is in agreement with the surgical plan and intervention. Patient willing to proceed forward with surgical intervention as he understands the necessity of the procedure. Consent to be obtained by nursing for a partial fifth ray amputation of the right foot. All questions were answered to patient and satisfaction Podiatry planning partial fifth ray amputation of the right foot for tomorrow, 01/04/2023. Patient to be n.p.o. overnight. Patient to remain nonweightbearing to the right foot. Medicine team currently following for medical management, they are greatly appreciated Infectious disease will be consulted for antibiotic management Wound care nurse following for assisting dressing changes Podiatry will continue to follow Please do not hesitate to call for any questions or concerns Jr. Derek Henderson.P.M. [facility] [phone] HPI Consult Data Date of Consult: 01/03/23 HPI Narrative Reason for Consultation: Right plantar foot wound HPI Narrative: RODRI GALE, is a 67 M who presents to [facility] ED with rightlower extremity redness about the fifth metatarsal of the right foot. He has PMHx of DM type II with peripheral polyneuropathy, HTN, kidney failure with transplant in October 2019. He did present to the ED with fever, chills, as well as right foot erythema. states patient developed a fever yesterday and that today he did have pain with swelling to the right foot with redness which prompted to bring him to the ED. Patient admits to nausea with one episodeof vomiting earlier this morning. Work- up initiated in ED demonstrating WBC 16.7, lactic acid 1.3, radiographs which demonstrate possible osteomyelitis of the fifth metatarsal head. Patient does have a history of renal transplant and is on immunosuppressive agent. Patient was consulted to podiatry for evaluationof right foot plantar ulceration Sub fifth metatarsal head. Patient states he is unsure of how long this ulceration has been present as he just noticed the redness this morning after taking socks and shoes off. Patient does admit to ambulating barefoot and socks within the house but states he always wear shoes outdoors. Upon initial evaluation there does appear to be a punched out puncture wound at the ball of the foot Sub fifth metatarsal head with some surrounding hyperkeratosis. [facility] Medical History (Updated 01/03/23 @ 19:[address] Rojas, DPTom) Alcohol use Anemia Arthritis AV fistula stenosis Back pain Blister (nonthermal), right great toe, initial encounter BPH (benign prostatic hyperplasia) Cardiology follow-up encounter Chronic anemia Diabetes Diabetic foot ulcer associated with type 2 diabetes mellitus Dialysis patient Dietary restriction End-stage renal disease on hemodialysis Essential hypertension Hallux limitus of right foot High cholesterol History of echocardiogram History of edema History of pain when walking History of rheumatic fever History of stress test Hypercholesterolemia Insulin dependent diabetes mellitus Kidney disease Leg cramps Loss of hearing Malnutrition Open fracture at right wrist or hand level Restless legs Rheumatoid arthritis Screening for intestinal cancer Symptomatic bradycardia Type 2 diabetes mellitus with diabetic polyneuropathy Ulcer of right second toe with fat layer exposed Wears glasses Home Medications finasteride 5 mg tablet (Proscar) 5 mg PO DAILY PROSTATE 07/10/17 [History Last Taken 01/03/23] rosuvastatin 10 mg tablet (Crestor) 10 mg PO DAILY CHOLESTEROL 07/10/17 [History Last Taken 01/03/23] aspirin 81 mg tablet,delayed release (Enteric Coated Aspirin) 81 mg PO DAILY 09/27/22 [History Last Taken 01/03/23] insulin glargine 100 unit/mL (3 mL) subcutaneous pen (Lantus Solostar U-100 Insulin) 25 unit subcut QPM 09/27/22 [History Last Taken 01/02/23] labetalol 100 mg tablet 150 mg PO BID 09/27/22 [History Last Taken 01/03/23] mycophenolate sodium 360 mg tablet,delayed release 720 mg PO Q12H 09/27/22 [History Last Taken 01/03/23] tacrolimus 1 mg tablet,extended release 24 hr (Envarsus XR) 1 mg PO DAILY 09/27/22 [History Last Taken 01/03/23] cholecalciferol (vitamin D3) 50 mcg (2,000 unit) tablet (Vitamin D3) 50 mcg PO DAILY 10/29/22 [History Last Taken 01/03/23] insulin aspart U-100 100 unit/mL (3 mL) subcutaneous pen (Novolog FlexPen U-100 Insulin aspart) 8 unit subcut TIDCM DM 10/29/22 [History Last Taken 01/03/23] nifedipine 30 mg tablet,extended release 24 hr 30 mg PO DAILY HEART 01/03/23 [History Last Taken 01/03/23] Allergy/AdvReac Type Severity Reaction Status Date / Time metformin Allergy Itching Verified 01/03/23 14:11 Sulfa (Sulfonamide Allergy Swelling Verified 01/03/23 14:11 Antibiotics) Family History Mother Diabetes Hypertension Heart disease Cancer lung Brother Diabetes Father Diabetes Cancer pancreas Other CAD (coronary artery disease) CVA (cerebral vascular accident) Kidney disease Surgical History (Updated 11/02/22 @ 05:56 by Jeanne León) History of angioplasty of peripheral vessel History of colonoscopy History of left heart catheterization (05/01/19) Hx of kidney transplant Presence of surgically created arteriovenous shunt for hemodialysis Social History (Updated 09/03/19 @ 11:15 by Jazlyn REICH, PA-C) Smoking Status: Former smoker ROS Constitutional Constitutional: Reports chills and fever(s); Denies malaise or weakness Eyes Eyes: Denies diplopia, eye pain or loss of vision ENT HEENT: Denies dysphagia, mouth pain or sore throat Cardiovascular Cardiovascular: Denies chest pain, claudication or palpitations Respiratory/Chest Respiratory/Chest: Denies cough, dyspnea or shortness of breath at rest Gastrointestinal Gastrointestinal: Denies abdominal pain, constipation, diarrhea, nausea or vomiting Genitourinary Genitourinary: Denies dysuria, urinary frequency, urinary hesitancy, urinary incontinence or urinary urgency Musculoskeletal Musculoskeletal: Denies joint pain, joint stiffness or joint swelling Integumentary Integumentary: Denies jaundice, lesions, pruritus or rash Neurologic Neurologic: Denies dizziness, numbness or seizures Endocrine Endocrinology: Denies cold intolerance or heat intolerance Hematologic/Lymphatic Hematologic/Lymphatic: Denies easy bleeding or easy bruising Allergic/Immunologic Allergic/Immunologic: Denies wheezing Physical Exam Const alert, oriented x3 and no apparent distress General Appearance: cooperative HEENT normocephalic Eyes General Eye: normal appearance of both eyes Neck General: normal visual inspection Lymph Lymphatic: no lymphadenopathy noted and no lymphedema noted Resp normal respiratory effort Cardio regular rate and regular rhythm Extremity normal capillary refill, no joint enlargement, no calf tenderness and no pedal edema Extremity Narrative: DP and PT pulses palpable with adequate capillary fill time to the right foot. Dermatological: There is erythema of the dorsal lateral foot with some darkened/purplish appearance dorsal lateral fifth metatarsal head. There is an ulceration Sub fifth metatarsal head with surrounding hyperkeratosis. There is some darkened appearing necrotic tissue at the base of the ulcer with some malodor noted. No erythema about the ulcerative site. No purulent drainage, nopalpable fluctuance/bogginess noted, no visible abscess formation, no lymphangitic streaking. Ulceration does probe close to bone. Musculoskeletal: Muscle strength 5 of 5 age-appropriate. Decreased range of motion of the ankle joint in dorsiflexion with the knee extended without pain orcrepitus. There is decreased range of motion of the first metatarsophalangeal joint. Skin no rashes or lesions noted, skin turgor normal and no jaundice Neuro moves all extremities Neuro Narrative: Decreased protective sensation to the plantar aspect of the foot consistent withdiabetic peripheral polyneuropathy Decreased light sensation to the foot Lab / Micro Data 01/03/23 11:26 01/03/23 11:26 Labs: Laboratory Results - last 24 hr 01/03/23 11:26: WBC 16.7 H, RBC 4.16 L, Hgb 11.8 L, Hct 35.9 L, MCV 86.3, MCH 28.4, MCHC 32.9, RDW Std Deviation 39.6, RDW Coeff of Yung 12.6, Plt Count 251, MPV 10.0, Immature Gran % (Auto) 0.500, Neut % (Auto) 82.9 H, Lymph % (Auto) 5.3L, [place] % (Auto) 10.9 H, Eos % (Auto) 0.1, Baso % (Auto) 0.3, Absolute Neuts (auto) 13.8 H, Absolute Lymphs (auto) 0.89, Nucleated RBC % 0, Differential Comment COMMENT, Diff Path Review November foll, PT 14.1, INR 1.1, APTT 27.6, Sodium 137, Potassium 4.0, Chloride 104, Carbon Dioxide 24.0, Anion Gap 9, BUN 20 H, Creatinine 1.37 H, Estim Creat Clear Calc 54.02, Est GFR (MDRD) Af Amer 67, Est GFR (MDRD) Non-Af 55 L, BUN/Creatinine Ratio 14.6, Glucose 185 H, Lactic Acid 1.3, Calcium 9.1, Total Bilirubin 0.50, AST 13 L, ALT 14 L, Alkaline [id number], Total Protein 7.4, Albumin 3.8, Globulin 3.6, Albumin/Globulin Ratio 1.1 01/03/23 12:29: Urine Color Yellow, Urine Clarity Clear, Urine pH 5.0, Ur Specific [place] 1.020, Urine Protein 30 H, Urine Glucose (UA) Normal, Urine Ketones 5 H, Urine Occult Blood Negative, Urine Nitrite Negative, Urine Bilirubin Negative, Urine Urobilinogen Normal, Ur Leukocyte Esterase 25 H, UrineRBC 0 SEEN, Urine WBC 0-5 SEEN, Ur Squamous Epith Cells 0-5 SEEN, Urine Bacteria0 SEEN, Urine Mucus 0 SEEN 01/03/23 16:15: POC Glucose 214 H Micro: Microbiology 01/03/23 12:05 Mucosa - Nasopharyngeal Respiratory Panel (PCR) - Final Radiology Impression Chest X-Ray 01/03/23 11:19 IMPRESSION: Borderline cardiomegaly. The lungs are clear. Electronically Signed: Yamil Hsu MD at 12:27 EDT , Foot X-Ray 01/03/23 11:23 IMPRESSION: Findings suggestive of possible osteomyelitis of the fifth metatarsophalangeal joint with overlying soft tissue swelling. Small amount of air is seen within the soft tissues. Electronically Signed: Yamil Hsu MD at 12:28 EDT , 01/03/232039 <Electronically signed by Lane Rojas DPM> Cosigner Signature (if applicable): CC: ANNE Rojas; Dr. Alo Avina MD~ Signed [facility] Work Phone: 1(437) 148-248806-29-2023 Discharge summary Author Oscar Rodarte [facility] January 03, 2023 5:54pm Note Date/Time January 03, 2023 12:4 3pm [facility] Medical Records Department [address] [place] [address] Emergency Department Summary 01/03/23 MR#: [id number] Acct: [id number] Name: RODRI GALE Rep #:[id number] : 1955 67 From: Oscar Rodarte MD PCP: Dr. Alo Avina MD Status:ADM IN Location: [place] [address] HPI History of Present Illness Chief Complaint: Lower Extremity Injury Narrative Narrative: Patient is a 67-year-old male with history of diabetes, hypertension, kidney failure with a kidney transplant in October 2019. Patient presents to the emergency department for fever, chills as well as right foot redness. Patient developed a fever yesterday around 99, he states that is high for him. Today, he noticed some pain and swelling to the right foot with some redness. Patient's fever was greater than 100 today. Patient states he is shaking more than normal. Patient did have 1 episode of nausea and vomiting. Patient also states to feel that he has been having worsening congestion. He is here with his . [facility] Medical History (Updated 01/03/23 @ 13:09 by DEANDRE Carson) Alcohol use Anemia Arthritis AV fistula stenosis Back pain Blister (nonthermal), right great toe, initial encounter BPH (benign prostatic hyperplasia) Cardiology follow-up encounter Chronic anemia Diabetic foot ulcer associated with type 2 diabetes mellitus Dietary restriction End-stage renal disease on hemodialysis Essential hypertension Hallux limitus of right foot High cholesterol History of echocardiogram History of edema History of pain when walking History of rheumatic fever History of stress test Hypercholesterolemia Insulin dependent diabetes mellitus Leg cramps Loss of hearing Malnutrition Open fracture at right wrist or hand level Restless legs Screening for intestinal cancer Symptomatic bradycardia Type 2 diabetes mellitus with diabetic polyneuropathy Ulcer of right second toe with fat layer exposed Wears glasses Home Medications finasteride 5 mg tablet (Proscar) 5 mg PO DAILY PROSTATE 07/10/17 [History Last Taken 05/01/19] rosuvastatin 10 mg tablet (Crestor) 10 mg PO DAILY CHOLESTEROL 07/10/17 [History Last Taken 10/31/17] aspirin 81 mg tablet,delayed release (Enteric Coated Aspirin) 81 mg PO DAILY 09/27/22 [History Last Taken Unknown] insulin glargine 100 unit/mL (3 mL) subcutaneous pen (Lantus Solostar U-100 Insulin) 30 unit subcut QPM 09/27/22 [History Last Taken Unknown] labetalol 100 mg tablet 150 mg PO BID 09/27/22 [History Last Taken 11/02/22 05:00] mycophenolate sodium 360 mg tablet,delayed release 720 mg PO Q12H 09/27/22 [History Last Taken Unknown] nifedipine 60 mg tablet,extended release 24 hr 30 mg PO DAILY 09/27/22 [History Last Taken 11/02/22 05:00] tacrolimus 1 mg tablet,extended release 24 hr (Envarsus XR) 1 mg PO DAILY 09/27/22 [History Last Taken Unknown] cholecalciferol (vitamin D3) 50 mcg (2,000 unit) tablet (Vitamin D3) 50 mcg PO DAILY 10/29/22 [History Last Taken Unknown] insulin aspart U-100 100 unit/mL (3 mL) subcutaneous pen (Novolog FlexPen U-100 Insulin aspart) 16 unit subcut BID 10/29/22 [History Last Taken Unknown] Allergy/AdvReac Type Severity Reaction Status Date / Time metformin Allergy Itching Verified 01/03/23 11:04 Sulfa (Sulfonamide Allergy Swelling Verified 01/03/23 11:04 Antibiotics) Family History Mother Diabetes Hypertension Heart disease Cancer lung Brother Diabetes Father Diabetes Cancer pancreas Other CAD (coronary artery disease) CVA (cerebral vascular accident) Kidney disease Surgical History (Updated 11/02/22 @ 05:56 by Jeanne León) History of angioplasty of peripheral vessel History of colonoscopy History of left heart catheterization (05/01/19) Hx of kidney transplant Presence of surgically created arteriovenous shunt for hemodialysis Social History (Updated 09/03/19 @ 11:15 by Jazlyn León PA, PA-C) Smoking Status: Former smoker ROS ROS ED ROS Narrative Constitutional: Negative for weight loss, weakness. Positive for fever and chills Eyes: Negative for vision loss, vision change, double vision ENT: Negative for any sore throat, ear pain, congestion Cardiovascular: Negative for any chest pain, tightness, palpitations Respiratory: Negative for any cough, sputum production, hemoptysis, dyspnea, dyspnea on exertion, orthopnea Gastrointestinal: Negative for any abdominal pain, nausea, vomiting, diarrhea, constipation, blood in stool, blood in vomit : Negative for any urinary frequency, dysuria, retention, blood in urine Muscle skeletal: Negative for any muscle joint pain, stiffness, myalgias, arthralgias, neck pain, back pain. Positive for right foot redness swelling andpain Neurological: Negative for any headache, syncope, numbness or tingling, dizziness Skin: Negative for any rashes, lumps, itching, abrasions, lacerations Psychiatric: Negative for any depression, anxiety, stress, suicidal ideation, homicidal ideation Hematologic: Negative for any easy bruising, excessive bruising, easy bleeding Allergies: Negative for any eczema, hives, rash EXAM Physical Exam Narrative Exam Narrative: Vital signs reviewed. Patient was febrile here and 100.7, patient is alert and orient x4. HEET: Head normocephalic atraumatic, TMs clear bilaterally. Posterior pharynx is clear, moist mucous membranes. Positive for rhinorrhea Neck: Supple with no lymphadenopathy or tenderness. No signs of meningismus, negative jolt sign. Cardiac: Regular rate and rhythm no murmurs gallops or rubs, equal peripheral pulses bilaterally. Respiratory: Lungs clear to auscultation bilaterally. No chest tenderness. Abdomen: Soft, nontender, nondistended. No abdominal bruit or pulsatile masses. No hepatosplenomegaly Extremities: Patient's dorsal aspect of the right foot from the great toe to theentire top of the foot is bright red, warm to the touch. This is consistent with cellulitis. There is slight edema, +2 pedal pulse. Patient does have discomfort on palpation.. Active full range of motion of all extremities. Neuro: Cranial nerves II through XII intact, no focal neurological deficits. Skin: Clean dry and intact with no rash, purpura, petechiae, vesicles or pustules. Backs/flank: No CVA tenderness, no midline spinal tenderness, no deformity. Psych: Normal mood and affect. No SI, HI or acute psychosis. Const Vital Signs: 01/03/23 11:02 01/03/23 11:14 01/03/23 11:18 Temperature 100.5 F H 100.7 F H Temperature Source Temporal Oral Pulse Rate 73 75 Respiratory Rate 16 17 17 Blood Pressure 154/105 H 164/64 H Blood Pressure Mean 121 97 Pulse Ox 97 99 Oxygen Delivery Method Room Air Room Air Room Air 01/03/23 11:29 01/03/23 12:30 Temperature 99.0 F Temperature Source Oral Pulse Rate 72 Respiratory Rate 27 H Blood Pressure 152/62 H Blood Pressure Mean 92 Pulse Ox Oxygen Delivery Method Room Air Room Air Positive well nourished and well developed General Appearance ED: well developed MDM MDM Lab Data Attestation: I reviewed the patient's lab results. Labs: Laboratory Results - last 24 hr 01/03/23 01/03/23 11:26 12:29 WBC 16.7 H RBC 4.16 L Hgb 11.8 L Hct 35.9 L MCV 86.3 MCH 28.4 MCHC 32.9 RDW Std Deviation 39.6 RDW Coeff of Yung 12.6 Plt Count 251 MPV 10.0 Immature Gran % (Auto) 0.500 Neut % (Auto) 82.9 H Lymph % (Auto) 5.3 L [place] % (Auto) 10.9 H Eos % (Auto) 0.1 Baso % (Auto) 0.3 Absolute Neuts (auto) 13.8 H Absolute Lymphs (auto) 0.89 Nucleated RBC % 0 Differential Comment COMMENT Diff Path Review November foll PT 14.1 INR 1.1 APTT 27.6 Sodium 137 Potassium 4.0 Chloride 104 Carbon Dioxide 24.0 Anion Gap 9 BUN 20 H Creatinine 1.37 H Estim Creat Clear Calc 54.02 Est GFR (MDRD) Af Amer 67 Est GFR (MDRD) Non-Af 55 L BUN/Creatinine Ratio 14.6 Glucose 185 H Lactic Acid 1.3 Calcium 9.1 Total Bilirubin 0.50 AST 13 L ALT 14 L Alkaline Phosphatase 58 Total Protein 7.4 Albumin 3.8 Globulin 3.6 Albumin/Globulin Ratio 1.1 Urine Color Yellow Urine Clarity Clear Urine pH 5.0 Ur Specific [place] 1.020 Urine Protein 30 H Urine Glucose (UA) Normal Urine Ketones 5 H Urine Occult Blood Negative Urine Nitrite Negative Urine Bilirubin Negative Urine Urobilinogen Normal Ur Leukocyte Esterase 25 H Urine RBC 0 SEEN Urine WBC 0-5 SEEN Ur Squamous Epith Cells 0-5 SEEN Urine Bacteria 0 SEEN Urine Mucus 0 SEEN Radiography Diagnostic Testing: Clinical Impression(s) from Imaging Studies Chest X-Ray 01/03/23 11:19 IMPRESSION: Borderline cardiomegaly. The lungs are clear. Electronically Signed: Yamil Hsu MD at 12:27 EDT , Foot X-Ray 01/03/23 11:23 IMPRESSION: Findings suggestive of possible osteomyelitis of the fifth metatarsophalangeal joint with overlying soft tissue swelling. Small amount of air is seen within the soft tissues. Electronically Signed: Yamil Hsu MD at 12:28 EDT , EKG Normal sinus rhythm: Attestation: I personally reviewed and interpreted this EKG as follows: Comments: Normal sinus rhythm with a rate of 75 bpm, KS 174 ms, QRS duration 90 ms, no acute ST elevation, no acute infarct noted Treatment and Re-Evaluation :: All radiologic examinations were read, reviewed by the emergency department attending. From these reads, a plan of care will be put in place. Patient appears ill, patient is febrile, presents to the emergency department for fever, chills, redness to the right foot. Secondary the patient's history of renal failure, kidney transplant, diabetes, patient did receive a full septicwork-up with 2 sets of blood cultures. Patient's laboratory values show a leukocytosis with a white blood count of 16.7 patient's creatinine is 1.37, patient is around 1.2-1.3 respectively. Blood glucose is 185. 2 sets of blood cultures taken, IV vancomycin given. Patient's x-ray of the chest showed no acute process. Patient's x-ray of the right foot shows findings suggestive of possible osteomyelitis of the fifth metaphalangeal joint with overlying soft tissue swelling. Small amount of air seen within the tissues. I spoke with thepatient at length, the patient will be admitted to the hospital. Patient was started on IV vancomycin. I spoke with hospitalist, he will accept the patient. I will reach out to podiatry regarding this patient. Patient placed on IV vancomycin, admitted to [facility] full Discharge Plan Triage Chief Complaint: Lower Extremity Injury ED Midlevel Provider: Julius Camp ED Provider: Oscar Rodarte Dx/Rx/DC Orders Clinical Impression: Cellulitis of foot, right, Osteomyelitis Prescriptions: No Action rosuvastatin [Crestor] 10 mg tablet 10 mg PO DAILY finasteride [Proscar] 5 mg tablet 5 mg PO DAILY Lantus Solostar U-100 Insulin 100 unit/mL (3 mL) insulin pen 30 unit SC QPM labetalol 100 mg tablet 150 mg PO BID aspirin [Enteric Coated Aspirin] 81 mg tablet,delayed release (DR/EC) 81 mg PO DAILY mycophenolate sodium 360 mg tablet,delayed release (DR/EC) 720 mg PO Q12H Envarsus XR 1 mg tablet extended release 24 hr 1 mg PO DAILY Rx Instructions: must be taken on empty stomach nifedipine 60 mg tablet extended release 24hr 30 mg PO DAILY Patient Comments: was reduced to 60mg today... was on and took 90mg today. insulin aspart U-100 [Novolog FlexPen U-100 Insulin] 100 unit/mL (3 mL) Insulin Pen 16 unit SUBCUT BID cholecalciferol (vitamin D3) [Vitamin D3] 50 mcg (2,000 unit) Tablet 50 mcg PO DAILY Primary Care Provider: Alo Avina Referrals: Alo Avina MD [Primary Care Provider] - Disposition Disposition: Acute Care Hospital [facility] What to do if you have Problems For any increased pain, shortness of breath, bleeding, nausea or vomiting, chestpain, or any unexpected problems, contact your Primary Care Provider. Call [employer] [facility] ([phone]) or report to the closest Emergency Room. Call 911 if necessary. 01/03/23 1754 <Electronically signed by Oscar Rodarte MD> Cosigner Signature (if applicable): 01/03/23 1309 <Electronically signed by Julius CARRERA> CC: Dr. Alo Avina MD ~ Signed [facility] Work Phone: 1(503) 906-256306-29-2023 History and physical note Author Ryan Rahman [facility] January 03, 2023 5:42pm Note Date/Time January 03, 2023 1:55 pm [facility] Medical Records Department [address] [place] [address] H&P Exam - Hospitalist 01/03/23 1348 MR#: [id number] Acct: [id number] Name: RODRI GALE Rep #:[id number] : 1955 67 From: Ryan roper MD PCP: Dr. Alo Avina MD Status:ADM IN Location: [facility] QU108-6 HPI - General General Date of Admission: 01/03/23 HPI Narrative RODRI GALE, is a 67 M who presents to the hospital with right lower extremity redness. He does not have any sensation due to neuropathy but he does have whatappears to be a puncture wound at the ball of his foot by his fifth metatarsal. He felt a little bit feverish yesterday but then this morning had a temperature of 101.2 at home. We took his shoes and socks off this morning he saw redness on the top aspect of his foot so he presented to the ER. He does have a historyof kidney transplant. In the ER a foot x-ray was obtained that shows possible osteomyelitis of the fifth metatarsal head. White count is elevated but vital signs are otherwise normal. [facility] Medical History (Updated 01/03/23 @ 14:48 by Ratna Pena) Alcohol use Anemia Arthritis AV fistula stenosis Back pain Blister (nonthermal), right great toe, initial encounter BPH (benign prostatic hyperplasia) Cardiology follow-up encounter Chronic anemia Diabetes Diabetic foot ulcer associated with type 2 diabetes mellitus Dialysis patient Dietary restriction End-stage renal disease on hemodialysis Essential hypertension Hallux limitus of right foot High cholesterol History of echocardiogram History of edema History of pain when walking History of rheumatic fever History of stress test Hypercholesterolemia Insulin dependent diabetes mellitus Kidney disease Leg cramps Loss of hearing Malnutrition Open fracture at right wrist or hand level Restless legs Rheumatoid arthritis Screening for intestinal cancer Symptomatic bradycardia Type 2 diabetes mellitus with diabetic polyneuropathy Ulcer of right second toe with fat layer exposed Wears glasses Home Medications finasteride 5 mg tablet (Proscar) 5 mg PO DAILY PROSTATE 07/10/17 [History Last Taken 01/03/23] rosuvastatin 10 mg tablet (Crestor) 10 mg PO DAILY CHOLESTEROL 07/10/17 [History Last Taken 01/03/23] aspirin 81 mg tablet,delayed release (Enteric Coated Aspirin) 81 mg PO DAILY 09/27/22 [History Last Taken 01/03/23] insulin glargine 100 unit/mL (3 mL) subcutaneous pen (Lantus Solostar U-100 Insulin) 25 unit subcut QPM 09/27/22 [History Last Taken 01/02/23] labetalol 100 mg tablet 150 mg PO BID 09/27/22 [History Last Taken 01/03/23] mycophenolate sodium 360 mg tablet,delayed release 720 mg PO Q12H 09/27/22 [History Last Taken 01/03/23] tacrolimus 1 mg tablet,extended release 24 hr (Envarsus XR) 1 mg PO DAILY 09/27/22 [History Last Taken 01/03/23] cholecalciferol (vitamin D3) 50 mcg (2,000 unit) tablet (Vitamin D3) 50 mcg PO DAILY 10/29/22 [History Last Taken 01/03/23] insulin aspart U-100 100 unit/mL (3 mL) subcutaneous pen (Novolog FlexPen U-100 Insulin aspart) 8 unit subcut TIDCM DM 10/29/22 [History Last Taken 01/03/23] nifedipine 30 mg tablet,extended release 24 hr 30 mg PO DAILY HEART 01/03/23 [History Last Taken 01/03/23] Allergy/AdvReac Type Severity Reaction Status Date / Time metformin Allergy Itching Verified 01/03/23 14:11 Sulfa (Sulfonamide Allergy Swelling Verified 01/03/23 14:11 Antibiotics) Family History Mother Diabetes Hypertension Heart disease Cancer lung Brother Diabetes Father Diabetes Cancer pancreas Other CAD (coronary artery disease) CVA (cerebral vascular accident) Kidney disease Surgical History (Updated 11/02/22 @ 05:56 by Jeanne León) History of angioplasty of peripheral vessel History of colonoscopy History of left heart catheterization (05/01/19) Hx of kidney transplant Presence of surgically created arteriovenous shunt for hemodialysis Social History (Updated 09/03/19 @ 11:15 by Jazlyn REICH, PA-C) Smoking Status: Former smoker ROS Constitutional Constitutional: Denies chills, fatigue, fever(s) or malaise Eyes Eyes: Denies blurry vision ENT HEENT: Denies headache(s) or nasal discharge Cardiovascular Cardiovascular: Denies chest pain, dyspnea on exertion or syncope Respiratory/Chest Respiratory/Chest: Denies cough, shortness of breath at rest or shortness of breath with exertion Gastrointestinal Gastrointestinal: Denies constipation, diarrhea, nausea or vomiting Genitourinary Genitourinary: Denies dysuria Integumentary Integumentary: Reports new lesions Neurologic Neurologic: Denies focal weakness, numbness or tremor(s) Psychiatric Psychiatric: Denies anxiety or depression Vital Signs Vital Signs Vital Signs: 01/03/23 11:02 01/03/23 11:14 01/03/23 11:18 Temperature 100.5 F H 100.7 F H Temperature Source Temporal Oral Pulse Rate 73 75 Respiratory Rate 16 17 17 Blood Pressure 154/105 H 164/64 H Blood Pressure Mean 121 97 Pulse Ox 97 99 Oxygen Delivery Method Room Air Room Air Room Air 01/03/23 11:29 01/03/23 12:30 01/03/23 13:32 Temperature 99.0 F 98.6 F Temperature Source Oral Oral Pulse Rate 72 67 Respiratory Rate 27 H 16 Blood Pressure 152/62 H 146/65 H Blood Pressure Mean 92 92 Pulse Ox 94 Oxygen Delivery Method Room Air Room Air Room Air 01/03/23 13:32 Temperature Temperature Source Pulse Rate 67 Respiratory Rate 16 Blood Pressure 146/65 H Blood Pressure Mean 92 Pulse Ox 94 Oxygen Delivery Method Room Air Weight Weight: 194 lb Body Mass Index (BMI) 27.8 Physical Exam Narrative General: Alert, Oriented x3, Cooperative, No apparent distress HEENT: Atraumatic, PERRLA, EOMI, Normocephalic Oral: Moist Mucosa Neck: Supple, No JVD Lungs: Diminished, Normal air movement, No rhonchi, No wheeze, No rales Cardiovascular: Regular rate, Regular Rhythm, Normal S1, Normal S2, No murmurs Abdomen: Soft, Non Tender, Non-Distended, No Hepato-splenomegaly Extremities: No edema, Capillary Refill Less than 3 Seconds Skin: He does have an open wound at the head of his fifth metatarsal on the ballof his foot on the right with redness on the top of his foot Musculoskeletal: No Tenderness to Palpation of Joints or Extremities Neurological: Motor Exam 5/5 strength throughout, diminished sensation in bilateral legs Psych/Mental Status: Normal Affect, Appropriate Results Lab / Micro Data 01/03/23 11:26 01/03/23 11:26 Labs: Laboratory Results - last 24 hr 01/03/23 11:26: WBC 16.7 H, RBC 4.16 L, Hgb 11.8 L, Hct 35.9 L, MCV 86.3, MCH 28.4, MCHC 32.9, RDW Std Deviation 39.6, RDW Coeff of Yung 12.6, Plt Count 251, MPV 10.0, Immature Gran % (Auto) 0.500, Neut % (Auto) 82.9 H, Lymph % (Auto) 5.3L, [place] % (Auto) 10.9 H, Eos % (Auto) 0.1, Baso % (Auto) 0.3, Absolute Neuts (auto) 13.8 H, Absolute Lymphs (auto) 0.89, Nucleated RBC % 0, Differential Comment COMMENT, Diff Path Review November, PT 14.1, INR 1.1, APTT 27.6, Sodium 137, Potassium 4.0, Chloride 104, Carbon Dioxide 24.0, Anion Gap 9, BUN 20 H, Creatinine 1.37 H, Estim Creat Clear Calc 54.02, Est GFR (MDRD) Af Amer 67, Est GFR (MDRD) Non-Af 55 L, BUN/Creatinine Ratio 14.6, Glucose 185 H, Lactic Acid 1.3, Calcium 9.1, Total Bilirubin 0.50, AST 13 L, ALT 14 L, Alkaline [id number], Total Protein 7.4, Albumin 3.8, Globulin 3.6, Albumin/Globulin Ratio 1.1 01/03/23 12:29: Urine Color Yellow, Urine Clarity Clear, Urine pH 5.0, Ur Specific [place] 1.020, Urine Protein 30 H, Urine Glucose (UA) Normal, Urine Ketones 5 H, Urine Occult Blood Negative, Urine Nitrite Negative, Urine Bilirubin Negative, Urine Urobilinogen Normal, Ur Leukocyte Esterase 25 H, Urine RBC 0 SEEN, Urine WBC 0-5 SEEN, Ur Squamous Epith Cells 0-5 SEEN, Urine Bacteria 0 SEEN, Urine Mucus 0 SEEN Radiology Impression Chest X-Ray 01/03/23 11:19 IMPRESSION: Borderline cardiomegaly. The lungs are clear. Electronically Signed: Yamil Hsu MD at 12:27 EDT , Foot X-Ray 01/03/23 11:23 IMPRESSION: Findings suggestive of possible osteomyelitis of the fifth metatarsophalangeal joint with overlying soft tissue swelling. Small amount of air is seen within the soft tissues. Electronically Signed: Yamil Hsu MD at 12:28 EDT , Assessment & Plan Assessment/Plan (1) Cellulitis of foot, right: (2) Right foot infection: PLAN: Plan 1. Diabetic foot ulcer with possible osteomyelitis/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/status post renal transplant ? We will continue with his diabetic monitoring and make adjustments as necessary to his insulin ? Continue vancomycin and Zosyn ? We will consult podiatry ? MRI is pending for better characterization of possible osteomyelitis ? We will resume his home antirejection medications ? His creatinine is a little bit elevated to 1.3 today will start him on IV fluids 2. HTN/HLD ? Blood stable ? Can resume his home blood pressure medications ? Resume his home cholesterol medications DVT: Lovenox 75 minutes was spent on direct patient care as well as chart review and collaboration with colleagues Charges/Coding Visit Charges Inpatient E&M: 74284 Init Hosp L3 01/03/23 0182 <Electronically signed by Ryan Rahman MD> Cosigner Signature (if applicable): CC: Dr. Alo Avina MD; Dr. Ryan Rahman MD~ Signed [facility] Work Phone: 1(728) 501-767606-29-2023 Consult note Author Ryan Rahman [facility] January 03, 2023 5:41pm Note Date/Time January 03, 2023 2:20 pm [facility] Medical Records Department [address] [place], [place] [address] [address] Pharmacokinetic/Renal -Consult 01/03/23 1418 MR#: [id number] Acct: [id number] Name: RODRI GALE Rep #:[id number] : 1955 67 From: Fannie Unger PCP: Dr. Alo Avina MD Status:ADM IN Y Location: [place] [id number] Consult Antibiotic Management Pharmacy has been consulted to manage selected antiobiotic: Vancomycin Type of Intervention Type of Consult: New start Suspected Infection Suspected Infection: Osteomyelitis Labs Labs: Sodium 137 mmol/L (136-145) 01/03/23 11:26 Potassium 4.0 mmol/L (3.5-5.1) 01/03/23 11:26 Chloride 104 mmol/L (98-107) 01/03/23 11:26 Carbon Dioxide 24.0 mmol/L (21.0-32.0) 01/03/23 11:26 Anion Gap 9 (5-15) 01/03/23 11:26 BUN 20 mg/dL (7-18) H 01/03/23 11:26 Creatinine 1.37 mg/dL (0.70-1.30) H 01/03/23 11:26 Est GFR (MDRD) Af Amer 67 mL/min (>60) 01/03/23 11:26 Est GFR (MDRD) Non-Af 55 mL/min (>60) L 01/03/23 11:26 BUN/Creatinine Ratio 14.6 RATIO (10-20) 01/03/23 11:26 Glucose 185 mg/dL (74-106) H 01/03/23 11:26 Goal Trough Goal Trough: 15-20 mcg/mL Pharmacy Plan for Drug Dosing Pharmacy Plan for Drug Dosing: NEW START IV VANCOMYCIN Consulting Physician: Dr. Rahman Indication: Diabetic foot ulcer, possible osteomyelitis Goal Trough: 15-20 SrCr: 1.37 mg/dL CrCl: 58.5 mL/min (AdjBW 79kg) Comments: Vancomycin 1250mg x1 dose given @ 1243 01/03/23 Vancomycin Dose: Vancomycin 750mg Q12H, next dose scheduled for 9901/04/23 Pending Level: Vancomycin trough @ 2901/05/23 Pharmacy Service will continue to monitor and adjust dosing as required. Follow-Up Labs Follow-Up Labs: Trough: Vancomycin Date/Time Labs Ordered Labs to be done on [date and time ordered]: 2901/05/23 01/03/23 1421 <Electronically signed by Fannie Unger> Date _ Fannie Unger 01/03/23 1741 <Electronically signed by Ryan richardson MD> Cosigner Signature (if applicable): Date Ryan Rahman MD CC: ~ Signed [facility] Work Phone: [phone]) 868-639306-29-2023 Discharge summary Author Oscar Rodarte [facility] January 03, 2023 3:48pm Note Date/Time January 03, 2023 11:5 5am [facility] Medical Records Department [address] [place] [id number] Emergency Department Summary 01/03/23 MR#: [id number] Acct: [id number] Name: RODRI GALE Rep #:[id number] : 1955 67 From: Oscar Rodarte MD PCP: Dr. Alo Avina MD Status:ADM IN [facility] H[facility] History of Present Illness Chief Complaint: Lower Extremity Injury [facility] Medical History (Updated 01/03/23 @ 14:48 by Ratna Pena) Alcohol use Anemia Arthritis AV fistula stenosis Back pain Blister (nonthermal), right great toe, initial encounter BPH (benign prostatic hyperplasia) Cardiology follow-up encounter Chronic anemia Diabetes Diabetic foot ulcer associated with type 2 diabetes mellitus Dialysis patient Dietary restriction End-stage renal disease on hemodialysis Essential hypertension Hallux limitus of right foot High cholesterol History of echocardiogram History of edema History of pain when walking History of rheumatic fever History of stress test Hypercholesterolemia Insulin dependent diabetes mellitus Kidney disease Leg cramps Loss of hearing Malnutrition Open fracture at right wrist or hand level Restless legs Rheumatoid arthritis Screening for intestinal cancer Symptomatic bradycardia Type 2 diabetes mellitus with diabetic polyneuropathy Ulcer of right second toe with fat layer exposed Wears glasses Home Medications finasteride 5 mg tablet (Proscar) 5 mg PO DAILY PROSTATE 07/10/17 [History Last Taken 01/03/23] rosuvastatin 10 mg tablet (Crestor) 10 mg PO DAILY CHOLESTEROL 07/10/17 [History Last Taken 01/03/23] aspirin 81 mg tablet,delayed release (Enteric Coated Aspirin) 81 mg PO DAILY 09/27/22 [History Last Taken 01/03/23] insulin glargine 100 unit/mL (3 mL) subcutaneous pen (Lantus Solostar U-100 Insulin) 25 unit subcut QPM 09/27/22 [History Last Taken 01/02/23] labetalol 100 mg tablet 150 mg PO BID 09/27/22 [History Last Taken 01/03/23] mycophenolate sodium 360 mg tablet,delayed release 720 mg PO Q12H 09/27/22 [History Last Taken 01/03/23] tacrolimus 1 mg tablet,extended release 24 hr (Envarsus XR) 1 mg PO DAILY 09/27/22 [History Last Taken 01/03/23] cholecalciferol (vitamin D3) 50 mcg (2,000 unit) tablet (Vitamin D3) 50 mcg PO DAILY 10/29/22 [History Last Taken 01/03/23] insulin aspart U-100 100 unit/mL (3 mL) subcutaneous pen (Novolog FlexPen U-100 Insulin aspart) 8 unit subcut TIDCM DM 10/29/22 [History Last Taken 01/03/23] nifedipine 30 mg tablet,extended release 24 hr 30 mg PO DAILY HEART 01/03/23 [History Last Taken 01/03/23] Allergy/AdvReac Type Severity Reaction Status Date / Time metformin Allergy Itching Verified 01/03/23 14:11 Sulfa (Sulfonamide Allergy Swelling Verified 01/03/23 14:11 Antibiotics) Family History Mother Diabetes Hypertension Heart disease Cancer lung Brother Diabetes Father Diabetes Cancer pancreas Other CAD (coronary artery disease) CVA (cerebral vascular accident) Kidney disease Surgical History (Updated 11/02/22 @ 05:56 by Jeanne León) History of angioplasty of peripheral vessel History of colonoscopy History of left heart catheterization (05/01/19) Hx of kidney transplant Presence of surgically created arteriovenous shunt for hemodialysis Social History (Updated 09/03/19 @ 11:15 by Jazlyn León PA, PA-C) Smoking Status: Former smoker EXAM Physical Exam Const Vital Signs: 01/03/23 11:02 01/03/23 11:14 01/03/23 11:18 Temperature 100.5 F H 100.7 F H Temperature Source Temporal Oral Pulse Rate 73 75 Respiratory Rate 16 17 17 Blood Pressure 154/105 H 164/64 H Blood Pressure Mean 121 97 Pulse Ox 97 99 Oxygen Delivery Method Room Air Room Air Room Air 01/03/23 11:29 01/03/23 12:30 Temperature 99.0 F Temperature Source Oral Pulse Rate 72 Respiratory Rate 27 H Blood Pressure 152/62 H Blood Pressure Mean 92 Pulse Ox Oxygen Delivery Method Room Air Room Air MDM MDM Lab Data Labs: Laboratory Results - last 24 hr 01/03/23 01/03/23 11:26 12:29 WBC 16.7 H RBC 4.16 L Hgb 11.8 L Hct 35.9 L MCV 86.3 MCH 28.4 MCHC 32.9 RDW Std Deviation 39.6 RDW Coeff of Yung 12.6 Plt Count 251 MPV 10.0 Immature Gran % (Auto) 0.500 Neut % (Auto) 82.9 H Lymph % (Auto) 5.3 L [place] % (Auto) 10.9 H Eos % (Auto) 0.1 Baso % (Auto) 0.3 Absolute Neuts (auto) 13.8 H Absolute Lymphs (auto) 0.89 Nucleated RBC % 0 Differential Comment COMMENT Diff Path Review November foll PT 14.1 INR 1.1 APTT 27.6 Sodium 137 Potassium 4.0 Chloride 104 Carbon Dioxide 24.0 Anion Gap 9 BUN 20 H Creatinine 1.37 H Estim Creat Clear Calc 54.02 Est GFR (MDRD) Af Amer 67 Est GFR (MDRD) Non-Af 55 L BUN/Creatinine Ratio 14.6 Glucose 185 H Lactic Acid 1.3 Calcium 9.1 Total Bilirubin 0.50 AST 13 L ALT 14 L Alkaline Phosphatase 58 Total Protein 7.4 Albumin 3.8 Globulin 3.6 Albumin/Globulin Ratio 1.1 Urine Color Yellow Urine Clarity Clear Urine pH 5.0 Ur Specific [place] 1.020 Urine Protein 30 H Urine Glucose (UA) Normal Urine Ketones 5 H Urine Occult Blood Negative Urine Nitrite Negative Urine Bilirubin Negative Urine Urobilinogen Normal Ur Leukocyte Esterase 25 H Urine RBC 0 SEEN Urine WBC 0-5 SEEN Ur Squamous Epith Cells 0-5 SEEN Urine Bacteria 0 SEEN Urine Mucus 0 SEEN Radiography Diagnostic Testing: Clinical Impression(s) from Imaging Studies Chest X-Ray 01/03/23 11:19 IMPRESSION: Borderline cardiomegaly. The lungs are clear. Electronically Signed: Yamil Hsu MD at 12:27 EDT , Foot X-Ray 01/03/23 11:23 IMPRESSION: Findings suggestive of possible osteomyelitis of the fifth metatarsophalangeal joint with overlying soft tissue swelling. Small amount of air is seen within the soft tissues. Electronically Signed: Yamil Hsu MD at 12:28 EDT , Treatment and Re-Evaluation Narrative: I have personally performed a face to face assessment of the patient and have reviewed the KAROLINA Note. I performed a substantive portion of the visit including all aspects of the following. My krishnamurthy findings include: History: Patient comes in with fevers chills nausea he vomited once and he has redness of his right foot. This is a diabetic is also on immunosuppression due to a kidney transplant. He does not have any sensation in his feet. He did notnotice that there is a small open blister on the bottom of the right. He does not know when this started. But he did note that the redness started here over this past day. He has had sense of fevers and malaise. He also may have had some mild nasal drainage and nonspecific cough. They are not sure if this is the recent [place] wildfire whether or pulmonary issues. Exam: Patient looks tired but not toxic. He is not confused. He does feel warmto the touch consistent with his fever. His lungs sound clear to me. His saturations are normal at 99% on room air showing no hypoxia. Heart is regular. Abdomen is soft and nontender. Pertinent exam of his right lower extremity shows erythema of the distal lateral aspect of the his foot. It is warm red andswollen. It is not tender but that is because he has no sensation of significance. On the lateral aspect near the fifth MTP, there is some swelling but its not fluctuant. On the underside of the foot in the same area is an openarea about 1 cm round that looks like a blister that opened. There is no activedrainage. Medical Decision Making: This is a complex patient with multiple medical problems including significant immunosuppression. Comprehensive work-up will bepursued including cultures and x-rays of the foot. We will add an x-ray of the chest with a slight cough also. Discharge Plan Dx/Rx/DC Orders Clinical Impression: Cellulitis of foot, right, Osteomyelitis Disposition Disposition: Acute Care Hospital [facility] Discharge Date/Time: 01/03/23 14:24 What to do if you have Problems For any increased pain, shortness of breath, bleeding, nausea or vomiting, chestpain, or any unexpected problems, contact your Primary Care Provider. Call [facility] ([phone]) or report to the closest Emergency Room. Call 911 if necessary. 01/03/23 1548 <Electronically signed by Oscar Rodarte MD> Cosigner Signature (if applicable): 01/03/23 1547 <Electronically signed by Julius CARRERA> CC: Dr. Alo Avina MD ~ Signed [facility] Work Phone: 1(649) 146-213506-22-2023 Miscellaneous Notes* Telephone Encounter - Katrina Mace MA - 12/27/2022 10:48 AM EDT Noted. Katrina Mace MA * Telephone Encounter - Bianca Wahl RN - 12/27/2022 10:20 AM EDT Radha returns call and message reviewed. Radha will have patient follow directions from endocrinology appointment yesterday and bring in BS readings to her office in two weeks as instructed. Radha reports she will also drop off a list to Dr. Avina just to have as she feels more comfortable keeping Dr. Avina in the loop. Bianca Wahl RN * Telephone Encounter - Katrina Mace MA - 12/27/2022 9:14 AM EDT Left message for patient to contact office. Katrina Mace MA * Telephone Encounter - Alo Avina MD - 12/26/2022 9:25 PM EDT Advise with seeing Endo I would follow their instructions. I was not aware he would be seeing them so soon. * Telephone Encounter - Luh Hamm LPN - 12/25/2022 4:01 PM EDT Rodri Shaffer is not snacking in the evening, if anything he is snacking before dinner, will cut out. They are walking the dog in the evening, he maybe has missed very few night. Appt w/Endo tomorrow, 12/26/2022. Radha will bring in blood sugar readings in 2 weeks. Luh Hamm LPN * Telephone Encounter - Rj Menard LPN - 12/25/2022 10:43 AM EDT Left message for pt and pt's to contact office. Please see Dr Avina's message below. Rj Menard LPN * Telephone Encounter - Alo Avina MD - 12/25/2022 10:31 AM EDT Advise patient he needs to stop his evening snack since no longer going for walks since this is driving up his fasting blood sugars in the morning. Advise he needs to work on this and provide me with another set of blood sugar readings in twoweeks with no longer eating a snack at night. If he wants a snack then he needs to get out and walkthat evening for 20-30 to help lower his blood sugar from the snack or he should take 5 units of the insulin aspart U-100 (his pre-meal insulin) with the snack. * Telephone Encounter - Nimo Fagan Ma - 12/25/2022 8:35 AM EDT Spoke to patient and he advised that after dinner he does occassionally tend to snack since he doesnot go out an walk anymore. Aware will send to pcp and be contacted if anything else advised Nimo Fagan Ma * Telephone Encounter - Alo Avina MD - 12/24/2022 5:02 PM EDT Let know his post lunch and post dinner blood sugars are good ( 88-150) but his fasting blood sugars are running high (133-160). See if he tends to eat any snacks after his sugars are checked two hrs after dinner? * Telephone Encounter - Katrina Mace MA - 12/24/2022 11:53 AM EDT Patient's dropped off patient's sugar recordings. Please advise. Katrina Mace MA [facility] History of Present illness Narrative* Ishaan Fortune RN - 12/26/2022 8:30 AM EDT DIABETES CARE AND EDUCATION VISIT Location: [place] Type of visit: In person individual PATIENT'S [...] record. SIGNATURE: Ishaan Fortune RN PATIENT NAME: Rodri Gale DATE: December 26, 2022 TIME: 8:30 AM documented in this encounterP[facility]06-21-[facility]23 Instructions* Patient Instructions* Claribel Cope APRN.CNP - 12/26/2022 8:21 AM [...] glucose does not improve. documented in this encounterPome[facility]06-[facility] History of Present illness Narrative* Claribel Coep APRN.CNP - 12/26/2022 8:00 AM EDT NEW CONSULT OFFICE PROGRESS NOTE Reason for Consultation: DM Type 2 Referring Physician: SELF My final recommendations will be communicated back to the requesting physician by way of shared Medical record or letter via US mail. HISTORY OF PRESENT ILLNESS; Rodri Gale is a 67 year old MALE is presenting as a new patient to me regarding DM Type 2. He was initially diagnosed with diabetes in 1997. Sts PCP recently Hx of dialysis ~ 2 years Patient sts kidney issues are not secondary to his diabetes [place] it was related to medication overdose (BP meds) Hx of Kidney tx 10/22/2019 Insulin recently dose changed Patient is reporting drops after meals, requiring him to eat candy or other to bring sugars up He does have a family history of diabetes mellitus in his Mother, Father, Grandparents, and Siblings. The patient reports the following microvascular complications: retinopathy and peripheral neuropathy. Rodri has no know macrovascular complications of diabetes.. [...] neurological manifestations (HCC) 02/13/2013 Diabetic eye exam ([facility]) 10/09/2021 Last done 10/09/2021 [facility] Diabetic ulcer of toe of right foot associated with type 2 diabetes mellitus, limited to breakdown of skin ([facility]) 12/05/2018 Erectile dysfunction 02/24/2010 Essential hypertension, benign Essential tremor 09/20/2016 Ex-smoker 05/17/2021 Fistula 12/20/2017 left forearm radial to cephalic ateriovenous Hearing loss 09/10/2012 Hyperlipidemia, mixed Living will in place 11/16/2021 CRISTOPHER; Reginald (son) Medicare annual wellness visit, subsequent 11/16/2021 Medicare Part B: 01/05/2018, Last done: 11/16/2021 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 ([facility]) 05/17/2021 Osteoarthritis of left knee 02/16/2011 Personal history of nicotine dependence Renal transplant recipient 11/23/2019 Restless leg syndrome 12/05/2018 Right rotator cuff tear 11/16/2021 Treated with PHYSICAL THERAPY. 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 Srinivas--Repeat in 3 years-2020 FISTULA Left 09/11/2017 Radiocephalic arteriovenous fistula creation--[facility]--R. Srinivas PAST SURGICAL HISTORY OF 06/07/15 right grade II Open distal radius and ulnar shaft fracture PROSTATE SURGERY HX REM LESION TRUNK,ARM, LEG <0.5 CM 05/07/07 Exc. piero cyst upper mid back FAMILY HISTORY Problem Relation Age of Onset Diabetes Mother Hypertension Mother Heart Mother CT other (lung cancer) Mother bone metastasis Diabetes [...] mL) INJECT 25 Units at bedtime Insulin Brown[place], Disposable, (BD ULTRAFINE III MINI PEN) 31 [...] A1C Claribel Cope CNP documented in this encounterPomerene Hospital06-20-2023 Miscellaneous Notes* Telephone Encounter - Heather Clifton LPN - 12/25/2022 8:19 AM EDT Patient has been identified by name and [...] you. Heather Clifton LPN documented in this encounterPomerene Hospital06-01-2023 Instructions* Patient Instructions* Alo Avina MD - 12/06/2022 8:54 AM EDT Decrease his lantus to 25 units a day. Change the Novolog to 12 units before each meal. Check fasting blood sugar daily and alternate two hrs after lunch and dinner every other day. Bringin readings in 2 weeks. Please get labs done on or after 05/24/2023 prior to your next visit. Please bring in copies of your power of erisa attorney for health care and living will. documented in this encounterPomerene Hospital06-01-2023 History of Present illness Narrative* Alo Avina MD - 12/06/2022 7:43 AM EDT Chief Complaint Patient presents with: Follow Up: routine HPI Rodri Gale is a 67 year old male who presents here today for Chronic Medical Conditions. Office visit - medicare wellness Last eye exam: november with Dr. Peoples at [facility] Patient with Hx of diabetes with retinopathy, Neuropathy due to diabetes, Hyperlipidemia, HTN, Anemia, s/p renal transplant, Vit D def, essential tremor, RLS, BPH, ex-smoker as well as those reviewedand addressed below and in ROS. Patient has [...] RLS, BPH, ex-smoker as well as those reviewedand addressed below and in ROS. 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 C[facility]--Repeat in 3 years-2020 FISTULA Left 09/11/2017 Radiocephalic arteriovenous fistula creation--[facility]--R. C[facility] PAST SURGICAL HISTORY OF 06/07/15 right grade II Open distal radius and ulnar shaft fracture PROSTATE SURGERY HX REM LESION TRUNK,ARM, LEG <0.5 CM 05/07/07 Exc. piero cyst upper mid back Family History FAMILY HISTORY Problem Relation Age of Onset Diabetes Mother Hypertension Mother Heart Mother CT other (lung cancer) Mother bone metastasis Diabetes Father other (BPH) Father other (pancreatic cancer) Father Diabetes Brother Diabetes Brother Patient Allergies ALLERGIES Allergen Reactions Bactrim [Sulfametho* Hives Metformin Rash Lipitor [Atorvastat* Other: See Comments myalgia Norvasc [Amlodipine* Swelling Current Medications Current Outpatient Medications on File Prior to Visit Medication Sig Insulin Brown[place], Disposable, (BD ULTRAFINE III MINI PEN) 31 [...] by mouth once daily. blood sugar diagnostic (niiuTOUCH ULTRA TEST) test strip Test blood sugar(s) [...] BP Cuff Size: Regular Adult) Pulse 60 Resp14 Ht 179.1 cm (5' 10.5) Wt 87.5 kg (193 lb) BMI 27.30 kg/m BP 138/58 Pulse 60 Resp 14 Ht 179.1 cm (5' 10.5) Wt 87.5 kg (193 lb) BMI 27.30 kg/m Last 5 Encounter Wt Readings: Date: Wt: 12/06/2022 87.5 kg (193 lb) 06/28/2022 88 kg (194 lb) 05/30/2022 87.1 kg (192 lb) 11/16/2021 88 kg (194 lb) 05/17/2021 86.6 kg (191 lb) General Appearance: Well appearing, alert, in no acute distress, well-hydrated, well nourished. andOverweight. Eyes: Anicteric sclera. Pupils are equally round [...] left eye affected by moderate nonproliferative retinopathy withoutmacular edema, with long-term current use of insulin ([facility]) - ICD9: 250.50, 362.05, V58.67, ICD10: E11.3392, Z79.4 As above - CONSULT TO ENDOCRINOLOGY 3. 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 Diabetes mellitus type 2 with neurological manifestations ([facility]) - ICD9: 250.60, ICD10: E11.49 As above - CONSULT TO ENDOCRINOLOGY 5. Diabetic eye exam ([facility]) - ICD9: V72.0, 250.00, ICD10: Z01.00, E11.9 Will get up dated report 6. 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 ([facility]) - ICD9: 249.60, 357.2, ICD10: E13.40 [...] which included preparing to see the patient, [id number] patient care, completing clinical documentation, performing a medically appropriate examination, counseling and educating the patient/family/caregiver and ordering medications, tests, or procedures. Alo Avina MD documented in this encounterPomerene Hospital05-16-2023 Miscellaneous Notes* Telephone Encounter - Nimo Fagan Ma - 11/20/2022 9:15 AM EDT Orders faxed and patient was notified Nimo Fagan Ma * Telephone Encounter - Crystal Nation PA-C - 11/19/2022 12:13 PM EDT Orders placed. * Telephone Encounter - Elizabeth Howard - 11/19/2022 8:12 AM EDT Pt asking if pcp wants labs prior to appt on 12/06. If ordering labs they will need to be faxed to [facility]. Please call pt and advise documented in this encounterPomerene Hospital05-01-2023 Miscellaneous Notes* Telephone Encounter - Katrina Mace MA - 11/05/2022 12:12 PM EDT Patient has been identified by name and date of : Yes Requested Prescriptions Pending Prescriptions Disp Refills NIFEdipine ER (PROCARDIA XL) 30 mg 24 hr tablet 90 tablet 3 Sig: Take 1 tablet by mouth once daily. RX INSTRUCTIONS: Patient aware RX will be sent to pharmacy. No need to notify patient. Katrina Mace MA Saima 06/2022 Nov 12/2022 Last refill; 05/2022 * Telephone Encounter - Azeb Clifton Pss - 11/05/2022 12:05 PM EDT Patient has been identified by name and date of : Yes Requested Prescriptions Pending Prescriptions Disp Refills NIFEdipine ER (PROCARDIA XL) 30 mg 24 hr tablet 90 tablet 3 Sig: Take 1 tablet by mouth once daily. RX INSTRUCTIONS: Patient aware RX will be sent to pharmacy. No need to notify patient. Azeb Clifton Pss documented in this encounterPomerene Hospital04-28-2023 History of Present illness Narrative* Liz Cuevas LPN - 11/02/2022 12:09 PM EDT Scan on 11/02/2022 7:01 AM by External Provider, VICTORINA: Colonoscopy Scan on 11/02/2022 6:56 AM by External Provider, VICTORINA: Colonoscopy Scan on 11/02/2022 6:18 AM by External Provider, VICTORINA documented in this encounterPomerene Hospital04-28-2023 Procedure [facility]04-28-2023 [facility]03-27-2023 Miscellaneous Notes* Telephone Encounter - Katrina Mace MA - 10/01/2022 3:46 PM EDT Faxed. Katrina Mace MA * Telephone Encounter - Alo Avina MD - 10/01/2022 11:54 AM EDT Order placed. * Telephone Encounter - Azeb Duggan - 10/01/2022 9:24 AM EDT Patient is calling in for a referral for a colonoscopy; states that he has appointment on 11-02-[address] Smooth Espino. Azeb uDggan documented in this encounterPomerene Hospital03-27-2023 Miscellaneous Notes* Telephone Encounter - Katrina Mace MA - 10/01/2022 10:03 AM EDT Patient has been identified by name and date of : Yes Requested Prescriptions Pending Prescriptions Disp Refills rosuvastatin (CRESTOR) 10 mg tablet 90 tablet 1 Sig: Take 1 tablet by mouth once daily. RX INSTRUCTIONS: Patient aware RX will be sent to pharmacy. No need to notify patient. Katrina Mace MA Saima: 06/2022 Nov: 12/2022 Last refill; 04/2022 * Telephone Encounter - Azeb Duggan - 10/01/2022 9:22 AM EDT Patient has been identified by name and date of : Yes Requested Prescriptions Pending Prescriptions Disp Refills rosuvastatin (CRESTOR) 10 mg tablet 90 tablet 1 Sig: Take 1 tablet by mouth once daily. RX INSTRUCTIONS: Patient aware RX will be sent to pharmacy. No need to notify patient. Azeb Duggan documented in this encounterPomerene Hospital03-24-2023 History of Present illness Narrative* Katrina Mace MA - 09/28/2022 1:31 PM EDT Scan on 09/27/2022 2:38 PM by External Provider: Consultation - General Surgery Katrina Mace MA documented in this encounterPomerene Hospital03-22-2023 Miscellaneous Notes* Telephone Encounter - Crystal Nation PA-C - 09/26/2022 10:12 AM EDT The following approved medication requests have been transmitted electronically. Requested Prescriptions Signed Prescriptions Disp Refills finasteride (PROSCAR) 5 mg tablet 90 tablet 1 Sig: Take 1 tablet by mouth once daily. Authorizing Provider: CRYSTAL NATION PA-C * Telephone Encounter - Katrina Mace MA - 09/26/2022 9:04 AM EDT Patient has been identified by name and date of : Yes Requested Prescriptions Pending Prescriptions Disp Refills finasteride (PROSCAR) 5 mg tablet 90 tablet 1 Sig: Take 1 tablet by mouth once daily. RX INSTRUCTIONS: Patient aware RX will be sent to pharmacy. No need to notify patient. Katrina Mace MA Saima: 06/2022 Nov: 12/2022 Last refill: 03/2022 * Telephone Encounter - Rebekah Bassett Pss - 09/26/2022 8:25 AM EDT Patient's called to refill finasteride 5 mg; not on current med list. Uses [facility] pharmacy. documented in this encounterPomerene Hospital03-07-2023 History of Present illness Narrative* Lzi Cuevas LPN - 09/11/2022 3:29 PM EST Please see outside labs: Scan on 09/08/2022 12:34 PM by External Provider: Miscellaneous Lab Abida Cuevas LPN documented in this encounterPomerene Hospital01-30-2023 History of Present illness Narrative* Yen Huang MA - 08/06/2022 10:49 AM EST POPULATION HEALTH NAVIGATION OUTREACH Action/FYI Spoke to [...] visits Payer: Payor: [employer] MEDICARE / Plan: [employer] / Product Type: HMO / Care Gap [...] 06, 2022 10:51 AM documented in this encounterPomerene Hospital12-22-2022 Instructions* Patient Instructions* Keri Day APRN.[facility] - 06/28/2022 8:10 AM EST Continue all medications Follow up as scheduled documented in this encounterPomerene Hospital12-22-2022 History of Present illness Narrative* Keri Day APRN.CNP - 06/28/2022 8:02 AM EST Chief Complaint Patient presents with: Recheck: Blood pressure HPI Rodri Gale is a 66 year old male who presents here today for Above Complaints.. Patient presents for BP follow up. Patient reports that overall he is feeling well. 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, with long-term current use of insulin ([facility]) 09/20/2016 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 disease, with long-term current use of insulin([facility]) 08/21/2019 Vitamin D deficiency 07/31/2017 Witnessed episode of apnea 11/23/2019 Previous Surgical History PAST SURGICAL HISTORY Procedure Laterality Date COLONOSCOPY FLX DX W/COLLJ SPEC WHEN PFRMD 09/30/2017 [facility]-Steph Espino--Repeat in 3 years-2020 FISTULA Left 09/11/2017 Radiocephalic arteriovenous fistula creation--[facility]--Steph Espino PAST SURGICAL HISTORY OF 06/07/15 right grade II Open distal radius and ulnar shaft fracture PROSTATE SURGERY HX REM LESION TRUNK,ARM, LEG <0.5 CM 05/07/07 Exc. piero cyst upper mid back Family History FAMILY HISTORY Problem Relation Age of Onset Diabetes Mother Hypertension Mother Heart Mother CT other (lung cancer) Mother bone metastasis Diabetes [...] 1 tablet by mouth once daily. Insulin Brown[place], Disposable, (BD ULTRAFINE III MINI PEN) 31 [...] or pharmacy blood pressure monitoring Keri Day APRN.IMPREGNATOR documented in this encounterPomerene Hospital11-23-2022 History of Present illness Narrative* Alo Avina MD - 05/30/2022 9:00 AM EST Chief Complaint Patient presents with: F/U 6 months HPI Rodri Gale is a 66 year old male who presents here today for 6 month follow up. Patient with Hx of diabetes with retinopathy, Neuropathy due to diabetes, Hyperlipidemia, HTN, Anemia, s/p renal transplant, Vit D def, essential tremor, RLS, BPH, ex-smoker as well as those reviewedand addressed below and in ROS. Patient has [...] neurological manifestations (HCC) 02/13/2013 Diabetic eye exam ([facility]) 10/09/2021 Last done 10/09/2021 [facility] Diabetic ulcer of toe of right foot associated with type 2 diabetes mellitus, limited to breakdown of skin (HCC) 12/05/2018 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 08/31/2014 Encounter for long-term (current) use of insulin ([facility]) End stage kidney disease ([facility]) 11/06/2017 Has been added to Transplant list-[facility] 12/25/2017 Enlarged prostate Erectile dysfunction 02/24/2010 Essential hypertension, benign Essential tremor 09/20/2016 Ex-smoker 05/17/2021 Fistula 12/20/2017 left forearm radial to cephalic ateriovenous Hearing loss 09/10/2012 Hypocalcemia 07/31/2017 Hypoglycemia unawareness associated with type 2 diabetes mellitus ([facility]) Kidney disease Living will in place 11/16/2021 JC Montelongo (son) Medicare annual wellness visit, subsequent 11/16/2021 Medicare Part B: 01/05/2018, Last done: 11/16/2021 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 ([facility]) 05/17/2021 Osteoarthritis of left knee 02/16/2011 Other and unspecified hyperlipidemia Pedal edema Personal history of nicotine dependence Renal transplant recipient 11/23/2019 Restless leg syndrome 12/05/2018 Retinopathy, bilateral 03/21/2018 Right rotator cuff tear 11/16/2021 Treated with PHYSICAL THERAPY. 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, with long-term current use of insulin ([facility]) 09/20/2016 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 disease, with long-term current use of insulin([facility]) 08/21/2019 Type 2 diabetes mellitus with stage 4 chronic kidney disease, with long-term current use of insulin([facility]) 09/20/2016 Vitamin D deficiency 07/31/2017 White coat hypertension 02/09/2014 Witnessed episode of apnea 11/23/2019 Previous Surgical History PAST SURGICAL HISTORY Procedure Laterality Date COLONOSCOPY FLX DX W/COLLJ SPEC WHEN PFRMD 09/30/2017 [facility]-Steph Espino--Repeat in 3 years-2020 FISTULA Left 09/11/2017 Radiocephalic arteriovenous fistula creation--[facility]--Steph Espino PAST SURGICAL HISTORY OF 06/07/15 right grade II Open distal radius and ulnar shaft fracture PROSTATE SURGERY HX REM LESION TRUNK,ARM, LEG <0.5 CM 05/07/07 Exc. piero cyst upper mid back Family History FAMILY HISTORY Problem Relation Age of Onset Diabetes Mother Hypertension Mother Heart Mother CT other (lung cancer) Mother bone metastasis Diabetes [...] 1 tablet by mouth twice daily. Insulin Brown[place], Disposable, (BD ULTRAFINE III MINI PEN) 31 [...] ORAL Take by mouth. blood sugar diagnostic (ONETOUCH ULTRA TEST) test [...] BP Cuff Size: Regular Adult) Pulse 64 Resp16 Wt 87.1 kg (192 lb) BMI 27.35 [...] symmetric. Sensation to light touch and crainal nerves2-12 intact.. Health Maintenance List SERUM CREATININE Never [...] Diabetes mellitus type 2 with neurological manifestations ([facility]) - ICD9: 250.60, ICD10: E11.49 (primary diagnosis) [...] disease, with long-term current use of insulin ([facility]) - ICD9: 250.40, 585.2, V58.67, ICD10: E11.22, N18.2, Z79.4 - as per #1 3. 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, with long-term current use of insulin ([facility]) - ICD9: 250.50, 362.05, V58.67, ICD10: E11.3391, Z79.4 - as per #1 4. Type 2 diabetes mellitus with left eye affected by moderate nonproliferative retinopathy withoutmacular edema, with long-term current use of insulin ([facility]) - ICD9: 250.50, 362.05, V58.67, ICD10: E11.3392, Z79.4 - as per #1 5. 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) - ICD9: 249.60, 357.2, ICD10: E13.40 - stable 6. Diabetic eye exam (HCC) - ICD9: V72.0, [...] extensive Alo Avina MD documented in this encounterPomerene Hospital11-14-2022 History of Present illness Narrative* Lane Engel RN - 05/21/2022 1:00 PM EST [facility] Nursing Administration Documentation Note Patient is [...] any signs or symptoms of COVID-19 at anytime I have answered all of the patient s questions regarding administration. Patient denies any additional questions at this time. documented in this encounterAdena [facility]11-14-[facility] Instructions* Patient Instructions* Lane Engel RN - 05/21/2022 1:00 PM EST Received Evusheld injection today. Please call if you have any concerns at [phone] documented in this encounterAdena [facility]11-07-2022 Miscellaneous Notes* Telephone Encounter - Katrina Mace MA - 05/14/2022 2:46 PM EST Patient has been identified by name and date of : Yes Requested Prescriptions Pending Prescriptions Disp Refills NIFEdipine ER (PROCARDIA XL) 30 mg 24 hr tablet 90 tablet 1 Sig: Take 1 tablet by mouth once daily. RX INSTRUCTIONS: Patient aware RX will be sent to pharmacy. No need to notify patient. Katrina Mace MA Saima: 11/2021 Nov: 05/2022 Last refill: 11/2021 * Telephone Encounter - Nancy Suh Pss - 05/14/2022 11:41 AM EST Patient has been identified by name and date of : Yes Requested Prescriptions Pending Prescriptions Disp Refills NIFEdipine ER (PROCARDIA XL) 30 mg 24 hr tablet 90 tablet 1 Sig: Take 1 tablet by mouth once daily. RX INSTRUCTIONS: Pharmacy initiated this request. No need to notify patient. Nancy Suh Pss documented in this encounterPomerene Hospital10-14-2022 History of Present illness Narrative* Alo Avina MD - 04/20/2022 5:16 PM EDT Patient seeing me 05/30/2022 and will address any lab needs at that time. * Margie Batista MA - 04/20/2022 11:21 AM EDT POPULATION HEALTH NAVIGATION OUTREACH Action/FYI Due for Urine Albumin. Order pending and forwarded to PCP Pt identified by name and : NO Outreach Outcome/Action Forwarded to PCP Did you use a PCP flex slot to schedule this appointment? N/A Reason for Outreach Care Gap or Scheduling/Wellness visits Payer: Payor: [employer] MEDICARE / Plan: [employer] / Product Type: HMO / Care [...] 20, 2022 11:21 AM documented in this encounterPomerene Hospital10-05-2022 Miscellaneous Notes* Telephone Encounter - Clarita Thompson RN - 04/11/2022 8:04 AM EDT Patient has been identified by name and [...] you. Clarita Thompson RN documented in this encounterPomerene Hospital08-29-2022 History of Present illness Narrative* Hortencia Davenport - 03/05/2022 10:48 AM EDT POPULATION HEALTH NAVIGATION OUTREACH Action/ [facility] Patient due for the following: HGB A1C ordered 11/16/2021 MyChart activation Left voicemail for patient to return call Pt identified by name and : NO Outreach Outcome/Action Unable to reach patient: Left message Did you use a PCP flex slot to schedule this appointment? N/A Reason for Outreach Care Gap or Scheduling/Wellness visits Payer: Payor: [employer] MEDICARE / Plan: [employer] / Product Type: HMO / Care Gap Reviewed:: HBA1C Reminder: Reminder note to check Health Maintenance for items below Health Maintenance items due: SERUM CREATININE Never done HBA1C due on 08/18/2021 COVID-19 VACCINE(5 - Booster for Pfizer series) due on 02/06/2022 Message Sent to Practice: No Navigation Signature: Hortencia Davenport March 05, 2022 10:48 AM documented in this encounterPomerene Hospital08-02-2022 Miscellaneous Notes* Telephone Encounter - Nancy Suh Pss - 02/06/2022 8:58 AM EDT No information was entered but I spoke to Benson at [facility] and told her 12/21/21 a prescription was sent; we reviewed all information and Benson found the script; she will call the patient back and notify him or spouse. documented in this encounterPomerene Hospital06-16-2022 Miscellaneous Notes* Telephone Encounter - Alo Avina MD - 12/21/2021 4:10 PM EDT The following approved medication requests have been [...] GUANAKO: No Authorizing Provider: ALO AVINA MD * Telephone Encounter - Tom Beatty RN - 12/21/2021 11:54 AM EDT reports patient switched to [employer] insurance, who does not cover humalog or glargine insulins,but will cover novolog and lantus. Asking pcp to send new Rx's to [facility]. Pended. Last ov w/pcp: 11-16-21. documented in this encounterPomerene Hospital05-13-2022 History of Present illness Narrative* Mark Hughes RN - 11/17/2021 3:00 PM EDT [facility] Nursing Administration Documentation Note Patient was [...] any signs or symptoms of COVID-19 at anytime. Patient denies concerns/questions at this time. documented in this encounterAdena [facility]05-12-2022 Instructions* Patient Instructions* Alo Avina MD - 11/16/2021 9:34 AM EDT If you want to get the shingrix vaccine for the prevention of Shingles please check with a local pharmacy. When you can bring in copies of living diamond and power of erisa attorney for health care forms. Increase the lantus to 30 units before bed and the humulog to 16 units twice a day. Please get labs done on or after 05/04/2022 prior to your next visit. documented in this encounterPomerene Hospital05-12-2022 History of Present illness Narrative* Alo Avina MD - 11/16/2021 9:07 AM EDT Images from the original note were not included. Medicare Yearly Visit Medical B eligibilty date 01/05/2018 Date of last exam NA PAST MEDICAL HISTORY Diagnosis Date Adult-onset obesity Advance directive discussed with patient 11/16/2021 Discussed 11/2021 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 07/12/2017 Anemia in stage 5 chronic kidney disease, not on chronic dialysis ([facility]) 07/12/2017 BMI 32.0-32.9,adult BPH (benign prostatic hyperplasia) 03/06/2012 Chronic 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 ([facility]) 02/28/2015 Chronic pain of right knee 12/05/2018 Diabetes mellitus type 2 with neurological manifestations ([facility]) 02/13/2013 Diabetic ulcer of toe of right foot associated with type 2 diabetes mellitus, limited to breakdown of skin ([facility]) 12/05/2018 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 08/31/2014 Encounter for long-term (current) use of insulin ([facility]) End stage kidney disease ([facility]) 11/06/2017 Has been added to Transplant list-[facility] 12/25/2017 Enlarged prostate Erectile dysfunction 02/24/2010 Essential hypertension, benign Essential tremor 09/20/2016 Ex-smoker 05/17/2021 Fistula 12/20/2017 left forearm radial to cephalic ateriovenous Hearing loss 09/10/2012 Hypocalcemia 07/31/2017 Hypoglycemia unawareness associated with type 2 diabetes mellitus ([facility]) Kidney disease Living will in place 11/16/2021 JC Montelongo (son) Medicare annual wellness visit, subsequent 11/16/2021 Medicare Part B: 01/05/2018, Last done: 11/16/2021 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 ([facility]) 05/17/2021 Osteoarthritis of left knee 02/16/2011 Other and unspecified hyperlipidemia Pedal edema Personal history of nicotine dependence Renal transplant recipient 11/23/2019 Restless leg syndrome 12/05/2018 Retinopathy, bilateral 03/21/2018 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, with long-term current use of insulin ([facility]) 09/20/2016 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 disease, with long-term current use of insulin([facility]) 08/21/2019 Type 2 diabetes mellitus with stage 4 chronic kidney disease, with long-term current use of insulin([facility]) 09/20/2016 Vitamin D deficiency 07/31/2017 White coat hypertension 02/09/2014 Witnessed episode of apnea 11/23/2019 PAST SURGICAL HISTORY Procedure Laterality Date COLONOSCOPY FLX DX W/COLLJ SPEC WHEN PFRMD 09/30/2017 [facility]-Steph Espino--Repeat in 3 years-2020 FISTULA Left 09/11/2017 Radiocephalic arteriovenous fistula creation--[facility]--Steph Espino PAST SURGICAL HISTORY OF 06/07/15 right grade II Open distal radius and ulnar shaft fracture PROSTATE SURGERY HX REM LESION TRUNK,ARM, LEG <0.5 CM 05/07/07 Exc. piero cyst upper mid back ALLERGIES: Bactrim [Sulfamethoxazole], Metformin, Lipitor [Atorvastatin Calcium], and Norvasc [Amlodipine Besylate] Medications reviewed: Yes FAMILY HISTORY Problem Relation Age of Onset Diabetes Mother Hypertension Mother Heart Mother CT other (lung cancer) Mother bone metastasis Diabetes Father other (BPH) Father other (pancreatic cancer) Father Diabetes Brother Diabetes Brother SOCIAL HISTORY: Social History Tobacco Use Smoking status: Former Smoker Packs/day: 1.00 Years: 6.00 Pack years: 6.00 Types: Cigarettes Smokeless tobacco: Never Used Tobacco comment: quit 1969's Substance Use Topics Alcohol use: Yes Comment: RARE Drug use: No Rodri works out regularly 6-7 times per week with walking. He watches his diet for sodium, low fat and low cholesterol all of the time. List of current specialists seen: Dr. Li (Renal [facility]) Dr. Peoples (optho) Dr. Katz (vitro specialist) End of Live Planning discussed including patients advanced directive wishes: Yes I am willing to follow Rodri's advanced directives. PHQ-2 / Depression screen Depression Screening 01/25/2016 06/17/2017 06/19/2018 11/16/2021 PHQ-2 Score 0 2 0 0 Depression screening tool completed and reviewed. Based on score and interview, patient is not at risk for depression. Screening tool discussed with patient, and I recommended no further interventionat this time. PHQ-2 Score: 0 Functional Ability/Safety [...] Patient presents with: Medicare Wellness Exam HPI Rodri Gale is a 66 year old male who presents here today for Medicare Annual Visit. Patient with Hx of diabetes with retinopathy, Neuropathy due to diabetes, Hyperlipidemia, HTN, Anemia, s/p renal transplant, Vit D def, essential tremor, RLS, BPH, ex-smoker as well as those reviewedand addressed below and in ROS. . Concerns; [...] chronic kidney disease, not on chronic dialysis ([facility]) 07/12/2017 BMI 32.0-32.9,adult BPH (benign prostatic hyperplasia) 03/06/2012 Chronic 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 ([facility]) 02/28/2015 Chronic pain of right knee 12/05/2018 Diabetes mellitus type 2 with neurological manifestations ([facility]) 02/13/2013 Diabetic ulcer of toe of right foot associated with type 2 diabetes mellitus, limited to breakdown of skin ([facility]) 12/05/2018 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 ([facility]) 08/31/2014 Encounter for long-term (current) use of insulin ([facility]) End stage kidney disease ([facility]) 11/06/2017 Has been added to Transplant list-[facility] 12/25/2017 Enlarged prostate Erectile dysfunction 02/24/2010 Essential hypertension, benign Essential tremor 09/20/2016 Ex-smoker 05/17/2021 Fistula 12/20/2017 left forearm radial to cephalic ateriovenous Hearing loss 09/10/2012 Hypocalcemia 07/31/2017 Hypoglycemia unawareness associated with type 2 diabetes mellitus ([facility]) Kidney disease 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 ([facility]) 05/17/2021 Osteoarthritis of left knee 02/16/2011 Other and unspecified hyperlipidemia Pedal edema Personal history of nicotine dependence Renal transplant recipient 11/23/2019 Restless leg syndrome 12/05/2018 Retinopathy, bilateral 03/21/2018 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, with long-term current use of insulin ([facility]) 09/20/2016 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 disease, with long-term current use of insulin([facility]) 08/21/2019 Type 2 diabetes mellitus with stage 4 chronic kidney disease, with long-term current use of insulin([facility]) 09/20/2016 Vitamin D deficiency 07/31/2017 White coat hypertension 02/09/2014 Witnessed episode of apnea 11/23/2019 Previous Surgical History PAST SURGICAL HISTORY Procedure Laterality Date COLONOSCOP W/ OR W/O [facility] SPEC 09/30/2017 [facility]-Steph Espino--Repeat in 3 years-2020 FISTULA Left 09/11/2017 Radiocephalic arteriovenous fistula creation--[facility]--Steph Espino PAST SURGICAL HISTORY OF 06/07/15 right grade II Open distal radius and ulnar shaft fracture PROSTATE SURGERY HX REM LESION TRUNK,ARM, LEG <0.5 CM 05/07/07 Exc. piero cyst upper mid back Family History FAMILY HISTORY Problem Relation Age of Onset Diabetes Mother Hypertension Mother Heart Mother CT other (lung cancer) Mother bone metastasis Diabetes [...] needed for itching. Location: lower legs Insulin [place], Disposable, (BD ULTRAFINE III MINI PEN) 31 [...] ORAL Take by mouth. blood sugar diagnostic (ONETOUCH ULTRA TEST) test [...] symmetric. Sensation to light touch and crainal nerves2-12 intact.. Genitalia: Normal, Penis normal. No urethral [...] left eye affected by moderate nonproliferative retinopathy withoutmacular edema, with long-term current use of insulin [...] Diabetes mellitus type 2 with neurological manifestations ([facility]) - ICD9: 250.60, ICD10: E11.49 - As above 6. 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 ([facility]) - ICD9: 249.60, 357.2, ICD10: E13.40 [...] by mouth twice daily. GUANAKO: No Insulin [place], Disposable, (BD ULTRAFINE III MINI PEN) 31 gauge x 3/16 400 Each 3 Sig: use four times/day GUANAKO: No F/u 6 months routine I spent a total of 40 minutes on the date of the service which included preparing to see the patient, [id number] patient care, completing clinical documentation, performing a medically appropriate examination, counseling and educating the patient/family/caregiver and ordering medications, tests, or procedures. Alo Avina MD documented in this encounterP[facility]05-[facility]22 Miscellaneous Notes* Telephone Encounter - Katrina Mace MA - 11/06/2021 1:08 PM EDT Orders printed and faxed to [facility]. Katrina Mace MA * Telephone Encounter - Alo Avina MD - 11/06/2021 1:02 PM EDT orders printed and ready to be faxed. * Telephone Encounter - Zoë Strong Pss - 11/06/2021 12:29 PM EDT Spouse called asking if patient needs lab work for upcoming appointment, to please fax to [facility]. Patient will be having lab work there Sat or this week. documented in this encounterPomerene Hospital04-07-2022 Miscellaneous Notes* Telephone Encounter - Alo Avina MD - 10/12/2021 4:29 PM EDT The following approved medication requests have been transmitted electronically. Signed Prescriptions Disp Refills rosuvastatin (CRESTOR) 10 mg tablet 90 tablet 1 Sig: Take 1 tablet by mouth once daily. GUANAKO: No Authorizing Provider: ALO AVINA MD * Telephone Encounter - Zandra Ybarra LPN - 10/12/2021 3:47 PM EDT Patient has been identified by name and [...] you. Zandra Ybarra LPN documented in this encounterPomerene Hospital03-22-2022 Miscellaneous Notes* Telephone Encounter - Alo Avina MD - 09/26/2021 11:40 AM EDT The following approved medication requests have been transmitted electronically. Signed Prescriptions Disp Refills finasteride (PROSCAR) 5 mg tablet 90 tablet 1 Sig: Take 1 tablet by mouth once daily. GUANAKO: No Authorizing Provider: ALO AVINA MD * Telephone Encounter - Esha Pozo Ma - 09/26/2021 11:32 AM EDT Last office visit: 05/17/21 F/u scheduled: 11/16/21 Esha Pozo Ma * Telephone Encounter - Mary Gama Pss - 09/26/2021 10:59 AM EDT Patient has been identified by name and date of : Yes Pending Prescriptions Disp Refills FINASTERIDE 5 MG TABLET 90 tablet 3 Sig: Take 1 tablet by mouth once daily. GUANAKO: No RX INSTRUCTIONS: Pharmacy initiated this request. No need to notify patient. Mary Gama Pss documented in this encounterPomerene Hospital05-31-2019 History of Past illness Narrative* Problem Noted Date Resolved Date Chronic pain of right knee 12/05/201806/06 Diabetic ulcer of toe of rig ht foot associated with type 2 diabetes mellitus, limited to breakdown of skin 12/05/20182019 End stage kidney disease 11/06/2017 020 Overview: Has been added to Transplant [facility] 12/25/2017 Hypocalcemia 07/31/2017 03/07/2018 Fracture of forearm, closed 01/25/201609/05 Chronic 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 02/2806/06/2020 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 08/31/2014 08/21/2018 Sebaceous cyst 04/24/2007 09/20/2016 documented as of this encounter (statuses as of 09/26/2021) [facility] of Past illness Narrative* Problem Noted Date Resolved Date Chronic pain of right knee 12/05/201806/06 Diabetic ulcer of toe of rig ht foot associated with type 2 diabetes mellitus, limited to breakdown of skin 12/05/20182019 End stage kidney disease 11/06/2017 020 Overview: Has been added to Transplant [facility] 12/25/2017 Hypocalcemia 07/31/2017 03/07/2018 Fracture of forearm, closed 01/25/201609/05 Chronic 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 02/2806/06/2020 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 08/31/2014 08/21/2018 Sebaceous cyst 04/24/2007 09/20/2016 documented as of this encounter (statuses as of 10/12/2021) [facility] of Past illness Narrative* Problem Noted Date Resolved Date Chronic pain of right knee 12/05/201806/06 Diabetic ulcer of toe of rig ht foot associated with type 2 diabetes mellitus, limited to breakdown of skin 12/05/20182019 End stage kidney disease 11/06/2017 020 Overview: Has been added to [facility] 12/25/2017 Hypocalcemia 07/31/2017 03/07/2018 Fracture of forearm, closed 01/25/201609/05 Chronic 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 02/2806/06/2020 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 08/31/2014 08/21/2018 Sebaceous cyst 04/24/2007 09/20/2016 documented as of this encounter (statuses as of 11/06/2021) [facility] illness Narrative* Problem Noted Date Resolved Date Chronic pain of right knee 12/05/201806/06 Diabetic ulcer of toe of rig ht foot associated with type 2 diabetes mellitus, limited to breakdown of skin 12/05/20182019 End stage kidney disease 11/06/2017 020 Overview: Has been added to [facility] 12/25/2017 Hypocalcemia 07/31/2017 03/07/2018 Fracture of forearm, closed 01/25/201609/05 Chronic 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 02/2806/06/2020 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 08/31/2014 08/21/2018 Sebaceous cyst 04/24/2007 09/20/2016 documented as of this encounter (statuses as of 11/19/2021) [facility] Narrative* Problem Noted Date Resolved Date Chronic pain of right knee 12/05/201806/06 Diabetic ulcer of toe of rig ht foot associated with type 2 diabetes mellitus, limited to breakdown of skin 12/05/20182019 End stage kidney disease 11/06/2017 020 Overview: Has been added to [facility] 12/25/2017 Hypocalcemia 07/31/2017 03/07/2018 Fracture of forearm, closed 01/25/201609/05 Chronic 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 02/2806/06/2020 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 08/31/2014 08/21/2018 Sebaceous cyst 04/24/2007 09/20/2016 documented as of this encounter (statuses as of 12/21/2021) [facility] Narrative* Problem Noted Date Resolved Date Chronic pain of right knee 12/05/201806/06 Diabetic ulcer of toe of rig ht foot associated with type 2 diabetes mellitus, limited to breakdown of skin 12/05/20182019 End stage kidney disease 11/06/2017 020 Overview: Has been added to [facility] 12/25/2017 Hypocalcemia 07/31/2017 03/07/2018 Fracture of forearm, closed 01/25/201609/05 Chronic 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 02/2806/06/2020 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 08/31/2014 08/21/2018 Sebaceous cyst 04/24/2007 09/20/2016 documented as of this encounter (statuses as of 02/06/2022) [facility] Narrative* Problem Noted Date Resolved Date Chronic pain of right knee 12/05/201806/06 Diabetic ulcer of toe of rig ht foot associated with type 2 diabetes mellitus, limited to breakdown of skin 12/05/20182019 End stage kidney disease 11/06/2017 020 Overview: Has been added to [facility] 12/25/2017 Hypocalcemia 07/31/2017 03/07/2018 Fracture of forearm, closed 01/25/201609/05 Chronic 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 02/2806/06/2020 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 08/31/2014 08/21/2018 Sebaceous cyst 04/24/2007 09/20/2016 documented as of this encounter (statuses as of 03/05/2022) [facility] Narrative* Problem Noted Date Resolved Date Chronic pain of right knee 12/05/201806/06 Diabetic ulcer of toe of rig ht foot associated with type 2 diabetes mellitus, limited to breakdown of skin 12/05/20182019 End stage kidney disease 11/06/2017 020 Overview: Has been added to [facility] 12/25/2017 Hypocalcemia 07/31/2017 03/07/2018 Fracture of forearm, closed 01/25/201609/05 Chronic 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 02/2806/06/2020 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 08/31/2014 08/21/2018 Sebaceous cyst 04/24/2007 09/20/2016 documented as of this encounter (statuses as of 04/11/2022) [facility] Narrative* Problem Noted Date Resolved Date Chronic pain of right knee 12/05/201806/06 Diabetic ulcer of toe of rig ht foot associated with type 2 diabetes mellitus, limited to breakdown of skin 12/05/20182019 End stage kidney disease 11/06/2017 020 Overview: Has been added to [facility] 12/25/2017 Hypocalcemia 07/31/2017 03/07/2018 Fracture of forearm, closed 01/25/201609/05 Chronic 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 02/2806/06/2020 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 08/31/2014 08/21/2018 Sebaceous cyst 04/24/2007 09/20/2016 documented as of this encounter (statuses as of 04/23/2022) [facility] Narrative* Problem Noted Date Resolved Date Chronic pain of right knee 12/05/201806/06 Diabetic ulcer of toe of rig ht foot associated with type 2 diabetes mellitus, limited to breakdown of skin 12/05/20182019 End stage kidney disease 11/06/2017 020 Overview: Has been added to Transplant [facility] 12/25/2017 Hypocalcemia 07/31/2017 03/07/2018 Fracture of forearm, closed 01/25/201609/05 Chronic 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 02/2806/06/2020 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 08/31/2014 08/21/2018 Sebaceous cyst 04/24/2007 09/20/2016 documented as of this encounter (statuses as of 05/14/2022) [facility]arr[facility]* Problem Noted Date Resolved Date Chronic pain of right knee 12/05/201806/06 Diabetic ulcer of toe of rig ht foot associated with type 2 diabetes mellitus, limited to breakdown of skin 12/05/20182019 End stage kidney disease 11/06/2017 020 Overview: Has been added to [facility] 12/25/2017 Hypocalcemia 07/31/2017 03/07/2018 Fracture of forearm, closed 01/25/201609/05 Chronic 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 02/2806/06/2020 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 08/31/2014 08/21/2018 Sebaceous cyst 04/24/2007 09/20/2016 documented as of this encounter (statuses as of 06/03/2022) [facility] Narrative* Problem Noted Date Resolved Date Chronic pain of right knee 12/05/201806/06 Diabetic ulcer of toe of rig ht foot associated with type 2 diabetes mellitus, limited to breakdown of skin 12/05/20182019 End stage kidney disease 11/06/2017 020 Overview: Has been added to Transplant [facility] 12/25/2017 Hypocalcemia 07/31/2017 03/07/2018 Fracture of forearm, closed 01/25/201609/05 Chronic 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 02/2806/06/2020 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 08/31/2014 08/21/2018 Sebaceous cyst 04/24/2007 09/20/2016 documented as of this encounter (statuses as of 06/29/2022) [facility]* Problem Noted Date Resolved Date Chronic pain of right knee 12/05/201806/06 Diabetic ulcer of toe of rig ht foot associated with type 2 diabetes mellitus, limited to breakdown of skin 12/05/20182019 End stage kidney disease 11/06/2017 020 Overview: Has been added to [facility] 12/25/2017 Hypocalcemia 07/31/2017 03/07/2018 Fracture of forearm, closed 01/25/201609/05 Chronic 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 02/2806/06/2020 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 08/31/2014 08/21/2018 Sebaceous cyst 04/24/2007 09/20/2016 documented as of this encounter (statuses as of 08/06/2022) [facility]arr[facility]* Problem Noted Date Resolved Date Chronic pain of right knee 12/05/201806/06 Diabetic ulcer of toe of rig ht foot associated with type 2 diabetes mellitus, limited to breakdown of skin 12/05/20182019 End stage kidney disease 11/06/2017 020 Overview: Has been added to [facility] 12/25/2017 Hypocalcemia 07/31/2017 03/07/2018 Fracture of forearm, closed 01/25/201609/05 Chronic 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 02/2806/06/2020 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 08/31/2014 08/21/2018 Sebaceous cyst 04/24/2007 09/20/2016 documented as of this encounter (statuses as of 09/12/2022) [facility]* Problem Noted Date Resolved Date Chronic pain of right knee 12/05/201806/06 Diabetic ulcer of toe of rig ht foot associated with type 2 diabetes mellitus, limited to breakdown of skin 12/05/20182019 End stage kidney disease 11/06/2017 020 Overview: Has been added to Transplant [facility] 12/25/2017 Hypocalcemia 07/31/2017 03/07/2018 Fracture of forearm, closed 01/25/201609/05 Chronic 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 02/2806/06/2020 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 08/31/2014 08/21/2018 Sebaceous cyst 04/24/2007 09/20/2016 documented as of this encounter (statuses as of 09/26/2022) [facility]arr[facility]* Problem Noted Date Resolved Date Chronic pain of right knee 12/05/201806/06 Diabetic ulcer of toe of rig ht foot associated with type 2 diabetes mellitus, limited to breakdown of skin 12/05/20182019 End stage kidney disease 11/06/2017 020 Overview: Has been added to [facility] 12/25/2017 Hypocalcemia 07/31/2017 03/07/2018 Fracture of forearm, closed 01/25/201609/05 Chronic 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 02/2806/06/2020 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 08/31/2014 08/21/2018 Sebaceous cyst 04/24/2007 09/20/2016 documented as of this encounter (statuses as of 09/29/2022) [facility]* Problem Noted Date Resolved Date Chronic pain of right knee 12/05/201806/06 Diabetic ulcer of toe of rig ht foot associated with type 2 diabetes mellitus, limited to breakdown of skin 12/05/20182019 End stage kidney disease 11/06/2017 020 Overview: Has been added to [facility] 12/25/2017 Hypocalcemia 07/31/2017 03/07/2018 Fracture of forearm, closed 01/25/201609/05 Chronic 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 02/2806/06/2020 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 08/31/2014 08/21/2018 Sebaceous cyst 04/24/2007 09/20/2016 documented as of this encounter (statuses as of 10/01/2022) [facility]* Problem Noted Date Resolved Date Chronic pain of right knee 12/05/201806/06 Diabetic ulcer of toe of rig ht foot associated with type 2 diabetes mellitus, limited to breakdown of skin 12/05/20182019 End stage kidney disease 11/06/2017 020 Overview: Has been added to [facility] 12/25/2017 Hypocalcemia 07/31/2017 03/07/2018 Fracture of forearm, closed 01/25/201609/05 Chronic 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 02/2806/06/2020 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 08/31/2014 08/21/2018 Sebaceous cyst 04/24/2007 09/20/2016 documented as of this encounter (statuses as of 10/02/2022) [facility]* Problem Noted Date Resolved Date Chronic pain of right knee 12/05/201806/06 Diabetic ulcer of toe of rig ht foot associated with type 2 diabetes mellitus, limited to breakdown of skin 12/05/20182019 End stage kidney disease 11/06/2017 020 Overview: Has been added to [facility] 12/25/2017 Hypocalcemia 07/31/2017 03/07/2018 Fracture of forearm, closed 01/25/201609/05 Chronic 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 02/2806/06/2020 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 08/31/2014 08/21/2018 Sebaceous cyst 04/24/2007 09/20/2016 documented as of this encounter (statuses as of 11/02/2022) [facility]* Problem Noted Date Resolved Date Chronic pain of right knee 12/05/201806/06 Diabetic ulcer of toe of rig ht foot associated with type 2 diabetes mellitus, limited to breakdown of skin 12/05/20182019 End stage kidney disease 11/06/2017 020 Overview: Has been added to Transplant [facility] 12/25/2017 Hypocalcemia 07/31/2017 03/07/2018 Fracture of forearm, closed 01/25/201609/05 Chronic 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 02/2806/06/2020 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 08/31/2014 08/21/2018 Sebaceous cyst 04/24/2007 09/20/2016 documented as of this encounter (statuses as of 11/05/2022) [facility]* Problem Noted Date Resolved Date Chronic pain of right knee 12/05/201806/06 Diabetic ulcer of toe of rig ht foot associated with type 2 diabetes mellitus, limited to breakdown of skin 12/05/20182019 End stage kidney disease 11/06/2017 020 Overview: Has been added to [facility] 12/25/2017 Hypocalcemia 07/31/2017 03/07/2018 Fracture of forearm, closed 01/25/201609/05 Chronic 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 02/2806/06/2020 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 08/31/2014 08/21/2018 Sebaceous cyst 04/24/2007 09/20/2016 documented as of this encounter (statuses as of 11/20/2022) [facility] History of Past illness Narrative* Problem Noted Date Resolved Date Chronic pain of right knee 12/05/201806/06 Diabetic ulcer of toe of rig ht foot associated with type 2 diabetes mellitus, limited to breakdown of skin 12/05/20182019 End stage kidney disease 11/06/2017 020 Overview: Has been added to Transplant [facility] 12/25/2017 Hypocalcemia 07/31/2017 03/07/2018 Fracture of forearm, closed 01/25/201609/05 Chronic 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 02/2806/06/2020 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 08/31/2014 08/21/2018 Sebaceous cyst 04/24/2007 09/20/2016 documented as of this encounter (statuses as of 12/07/2022) [facility] History of Past illness Narrative* Problem Noted Date Resolved Date Chronic pain of right knee 12/05/201806/06 Diabetic ulcer of toe of rig ht foot associated with type 2 diabetes mellitus, limited to breakdown of skin 12/05/20182019 End stage kidney disease 11/06/2017 020 Overview: Has been added to [facility] 12/25/2017 Hypocalcemia 07/31/2017 03/07/2018 Fracture of forearm, closed 01/25/201609/05 Chronic 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 02/2806/06/2020 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 08/31/2014 08/21/2018 Sebaceous cyst 04/24/2007 09/20/2016 documented as of this encounter (statuses as of 12/25/2022) [facility] History of Past illness Narrative* Problem Noted Date Resolved Date Chronic pain of right knee 12/05/201806/06 Diabetic ulcer of toe of rig ht foot associated with type 2 diabetes mellitus, limited to breakdown of skin 12/05/20182019 End stage kidney disease 11/06/2017 020 Overview: Has been added to [facility] 12/25/2017 Hypocalcemia 07/31/2017 03/07/2018 Fracture of forearm, closed 01/25/201609/05 Chronic 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 02/2806/06/2020 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 08/31/2014 08/21/2018 Sebaceous cyst 04/24/2007 09/20/2016 documented as of this encounter (statuses as of 12/26/2022) [facility] History of Past illness Narrative* Problem Noted Date Resolved Date Chronic pain of right knee 12/05/201806/06 Diabetic ulcer of toe of rig ht foot associated with type 2 diabetes mellitus, limited to breakdown of skin 12/05/20182019 End stage kidney disease 11/06/2017 020 Overview: Has been added to [facility] 12/25/2017 Hypocalcemia 07/31/2017 03/07/2018 Fracture of forearm, closed 01/25/201609/05 Chronic 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 02/2806/06/2020 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 08/31/2014 08/21/2018 Sebaceous cyst 04/24/2007 09/20/2016 documented as of this encounter (statuses as of 12/26/2022) [facility] History of Past illness Narrative* Problem Noted Date Resolved Date Chronic pain of right knee 12/05/201806/06 Diabetic ulcer of toe of rig ht foot associated with type 2 diabetes mellitus, limited to breakdown of skin 12/05/20182019 End stage kidney disease 11/06/2017 020 Overview: Has been added to [facility] 12/25/2017 Hypocalcemia 07/31/2017 03/07/2018 Fracture of forearm, closed 01/25/201609/05 Chronic 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 02/2806/06/2020 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 08/31/2014 08/21/2018 Sebaceous cyst 04/24/2007 09/20/2016 documented as of this encounter (statuses as of 12/27/2022) [facility] History of Past illness Narrative* Problem Noted Date Resolved Date Chronic pain of right knee 12/05/201806/06 Diabetic ulcer of toe of rig ht foot associated with type 2 diabetes mellitus, limited to breakdown of skin 12/05/20182019 End stage kidney disease 11/06/2017 020 Overview: Has been added to [facility] 12/25/2017 Hypocalcemia 07/31/2017 03/07/2018 Fracture of forearm, closed 01/25/201609/05 Chronic 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 02/2806/06/2020 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 08/31/2014 08/21/2018 Sebaceous cyst 04/24/2007 09/20/2016 documented as of this encounter (statuses as of 01/08/2023) [facility] of Past illness Narrative* Problem Noted Date Diagnosed Date Resolved Date Chronic pain of right knee 12/05/201808/06/2019 Diabetic ulcer of toe of rig ht foot associated with type 2 diabetes mellitus, limited to breakdown of skin 12/05/2018 06/06/2020 End stage kidney disease 11/06/2017 Overview: Has been added to [facility] 12/25/2017 Hypocalcemia 07/31/2017 03/07/2018 Fracture of forearm, closed 01/25/2016 09/20/2016 Chronic 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 02/28/2015 06/06/2020 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 08/31/2014 08/21/2018 Sebaceous cyst 04/24/2007 09/20/2016 documented as of this encounter (statuses as of 01/24/2023) [facility] History of Past illness Narrative* Problem Noted Date Diagnosed Date Resolved Date Chronic pain of right knee 12/05/201808/06/2019 Diabetic ulcer of toe of rig ht foot associated with type 2 diabetes mellitus, limited to breakdown of skin 12/05/2018 06/06/2020 End stage kidney disease 11/06/2017 Overview: Has been added to [facility] 12/25/2017 Hypocalcemia 07/31/2017 03/07/2018 Fracture of forearm, closed 01/25/2016 09/20/2016 Chronic 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 02/28/2015 06/06/2020 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 08/31/2014 08/21/2018 Sebaceous cyst 04/24/2007 09/20/2016 documented as of this encounter (statuses as of 01/30/2023) [facility] of Past illness Narrative* Problem Noted Date Diagnosed Date Resolved Date Chronic pain of right knee 12/05/2018 1 08/06/2019 Diabetic ulcer of toe of rig ht foot associated with type 2 diabetes mellitus, limited to breakdown of skin 12/05/2018 06/06/2020 End stage kidney disease 11/06/2017 Overview: Has been added to [facility] 12/25/2017 Hypocalcemia 07/31/2017 03/07/2018 Fracture of forearm, closed 01/25/2016 09/20/2016 Chronic 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 02/28/2015 06/06/2020 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 08/31/2014 08/21/2018 Sebaceous cyst 04/24/2007 09/20/2016 documented as of this encounter (statuses as of 02/06/2023) [facility] History of Past illness Narrative* Problem Noted Date Diagnosed Date Resolved Date Chronic pain of right knee 12/05/2018 1 08/06/2019 Diabetic ulcer of toe of rig ht foot associated with type 2 diabetes mellitus, limited to breakdown of skin 12/05/2018 06/06/2020 End stage kidney disease 11/06/2017 Overview: Has been added to [facility] 12/25/2017 Hypocalcemia 07/31/2017 03/07/2018 Fracture of forearm, closed 01/25/2016 09/20/2016 Chronic 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 02/28/2015 06/06/2020 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 08/31/2014 08/21/2018 Sebaceous cyst 04/24/2007 09/20/2016 documented as of this encounter (statuses as of 02/14/2023) [facility] History of Past illness Narrative* Problem Noted Date Diagnosed Date Resolved Date Chronic pain of right knee 12/05/2018 1 08/06/2019 Diabetic ulcer of toe of rig ht foot associated with type 2 diabetes mellitus, limited to breakdown of skin 12/05/2018 06/06/2020 End stage kidney disease 11/06/2017 Overview: Has been added to Transplant [facility] 12/25/2017 Hypocalcemia 07/31/2017 03/07/2018 Fracture of forearm, closed 01/25/2016 09/20/2016 Chronic 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 02/28/2015 06/06/2020 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 08/31/2014 08/21/2018 Sebaceous cyst 04/24/2007 09/20/2016 documented as of this encounter (statuses as of 02/26/2023) [facility] History of Past illness Narrative* Problem Noted Date Diagnosed Date Resolved Date Chronic pain of right knee 12/05/201808/06/2019 Diabetic ulcer of toe of rig ht foot associated with type 2 diabetes mellitus, limited to breakdown of skin 12/05/2018 06/06/2020 End stage kidney disease 11/06/2017 Overview: Has been added to [facility] 12/25/2017 Hypocalcemia 07/31/2017 03/07/2018 Fracture of forearm, closed 01/25/2016 09/20/2016 Chronic 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 02/28/2015 06/06/2020 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 08/31/2014 08/21/2018 Sebaceous cyst 04/24/2007 09/20/2016 documented as of this encounter (statuses as of 03/07/2023) [facility] History of Past illness Narrative* Problem Noted Date Diagnosed Date Resolved Date Chronic pain of right knee 12/05/2018 1 08/06/2019 Diabetic ulcer of toe of rig ht foot associated with type 2 diabetes mellitus, limited to breakdown of skin 12/05/2018 06/06/2020 End stage kidney disease 11/06/2017 Overview: Has been added to Transplant [facility] 12/25/2017 Hypocalcemia 07/31/2017 03/07/2018 Fracture of forearm, closed 01/25/2016 09/20/2016 Chronic 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 02/28/2015 06/06/2020 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 08/31/2014 08/21/2018 Sebaceous cyst 04/24/2007 09/20/2016 documented as of this encounter (statuses as of 03/13/2023) [facility] History of Past illness Narrative* Problem Noted Date Diagnosed Date Resolved Date Chronic pain of right knee 12/05/2018 1 08/06/2019 Diabetic ulcer of toe of rig ht foot associated with type 2 diabetes mellitus, limited to breakdown of skin 12/05/2018 06/06/2020 End stage kidney disease 11/06/2017 Overview: Has been added to Transplant [facility] 12/25/2017 Hypocalcemia 07/31/2017 03/07/2018 Fracture of forearm, closed 01/25/2016 09/20/2016 Chronic 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 02/28/2015 06/06/2020 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 08/31/2014 08/21/2018 Sebaceous cyst 04/24/2007 09/20/2016 documented as of this encounter (statuses as of 03/13/2023) [facility] History of Past illness Narrative* Problem Noted Date Diagnosed Date Resolved Date Chronic pain of right knee 12/05/2018 1 08/06/2019 Diabetic ulcer of toe of rig ht foot associated with type 2 diabetes mellitus, limited to breakdown of skin 12/05/2018 06/06/2020 End stage kidney disease 11/06/2017 Overview: Has been added to Transplant [facility] 12/25/2017 Hypocalcemia 07/31/2017 03/07/2018 Fracture of forearm, closed 01/25/2016 09/20/2016 Chronic 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 02/28/2015 06/06/2020 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 08/31/2014 08/21/2018 Sebaceous cyst 04/24/2007 09/20/2016 documented as of this encounter (statuses as of 03/19/2023) [facility] History of Past illness Narrative* Problem Noted Date Diagnosed Date Resolved Date Chronic pain of right knee 12/05/2018 1 08/06/2019 Diabetic ulcer of toe of rig ht foot associated with type 2 diabetes mellitus, limited to breakdown of skin 12/05/2018 06/06/2020 End stage kidney disease 11/06/2017 Overview: Has been added to [facility] 12/25/2017 Hypocalcemia 07/31/2017 03/07/2018 Fracture of forearm, closed 01/25/2016 09/20/2016 Chronic 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 02/28/2015 06/06/2020 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 08/31/2014 08/21/2018 Sebaceous cyst 04/24/2007 09/20/2016 documented as of this encounter (statuses as of 03/25/2023) [facility] History of Past illness Narrative* Problem Noted Date Diagnosed Date Resolved Date Chronic pain of right knee 12/05/2018 1 08/06/2019 Diabetic ulcer of toe of rig ht foot associated with type 2 diabetes mellitus, limited to breakdown of skin 12/05/2018 06/06/2020 End stage kidney disease 11/06/2017 Overview: Has been added to [facility] 12/25/2017 Hypocalcemia 07/31/2017 03/07/2018 Fracture of forearm, closed 01/25/2016 09/20/2016 Chronic 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 02/28/2015 06/06/2020 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 08/31/2014 08/21/2018 Sebaceous cyst 04/24/2007 09/20/2016 documented as of this encounter (statuses as of 04/01/2023) [facility] of Past illness Narrative* Problem Noted Date Diagnosed Date Resolved Date Chronic pain of right knee 12/05/2018 1 08/06/2019 Diabetic ulcer of toe of rig ht foot associated with type 2 diabetes mellitus, limited to breakdown of skin 12/05/2018 06/06/2020 End stage kidney disease 11/06/2017 Overview: Has been added to [facility] 12/25/2017 Hypocalcemia 07/31/2017 03/07/2018 Fracture of forearm, closed 01/25/2016 09/20/2016 Chronic 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 02/28/2015 06/06/2020 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 08/31/2014 08/21/2018 Sebaceous cyst 04/24/2007 09/20/2016 documented as of this encounter (statuses as of 05/09/2023) [facility] History of Past illness Narrative* Problem Noted Date Diagnosed Date Resolved Date Chronic pain of right knee 12/05/2018 1 08/06/2019 Diabetic ulcer of toe of rig ht foot associated with type 2 diabetes mellitus, limited to breakdown of skin 12/05/2018 06/06/2020 End stage kidney disease 11/06/2017 Overview: Has been added to Transplant [facility] 12/25/2017 Hypocalcemia 07/31/2017 03/07/2018 Fracture of forearm, closed 01/25/2016 09/20/2016 Chronic 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 02/28/2015 06/06/2020 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 08/31/2014 08/21/2018 Sebaceous cyst 04/24/2007 09/20/2016 documented as of this encounter (statuses as of 05/21/2023) [facility] History of Past illness Narrative* Problem Noted Date Diagnosed Date Resolved Date Chronic pain of right knee 12/05/2018 1 08/06/2019 Diabetic ulcer of toe of rig ht foot associated with type 2 diabetes mellitus, limited to breakdown of skin 12/05/2018 06/06/2020 End stage kidney disease 11/06/2017 Overview: Has been added to Transplant [facility] 12/25/2017 Hypocalcemia 07/31/2017 03/07/2018 Fracture of forearm, closed 01/25/2016 09/20/2016 Chronic 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 02/28/2015 06/06/2020 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 08/31/2014 08/21/2018 Sebaceous cyst 04/24/2007 09/20/2016 documented as of this encounter (statuses as of 08/28/2023) [facility] History of Past illness Narrative* Problem Noted Date Diagnosed Date Resolved Date Chronic pain of right knee 12/05/2018 1 08/06/2019 Diabetic ulcer of toe of rig ht foot associated with type 2 diabetes mellitus, limited to breakdown of skin 12/05/2018 06/06/2020 End stage kidney disease 11/06/2017 Overview: Has been added to Transplant [facility] 12/25/2017 Hypocalcemia 07/31/2017 03/07/2018 Fracture of forearm, closed 01/25/2016 09/20/2016 Chronic 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 02/28/2015 06/06/2020 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 08/31/2014 08/21/2018 Sebaceous cyst 04/24/2007 09/20/2016 documented as of this encounter (statuses as of 09/13/2023) [facility] History of Past illness Narrative* Problem Noted Date Diagnosed Date Resolved Date Chronic pain of right knee 12/05/2018 1 08/06/2019 Diabetic ulcer of toe of rig ht foot associated with type 2 diabetes mellitus, limited to breakdown of skin 12/05/2018 06/06/2020 End stage kidney disease 11/06/2017 Overview: Has been added to [facility] 12/25/2017 Hypocalcemia 07/31/2017 03/07/2018 Fracture of forearm, closed 01/25/2016 09/20/2016 Chronic 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 02/28/2015 06/06/2020 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 08/31/2014 08/21/2018 Sebaceous cyst 04/24/2007 09/20/2016 documented as of this encounter (statuses as of 09/18/2023) [facility] of Past illness Narrative* Problem Noted Date Diagnosed Date Resolved Date Chronic pain of right knee 12/05/2018 1 08/06/2019 Diabetic ulcer of toe of rig ht foot associated with type 2 diabetes mellitus, limited to breakdown of skin 12/05/2018 06/06/2020 End stage kidney disease 11/06/2017 Overview: Has been added to [facility] 12/25/2017 Hypocalcemia 07/31/2017 03/07/2018 Fracture of forearm, closed 01/25/2016 09/20/2016 Chronic 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 02/28/2015 06/06/2020 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 08/31/2014 08/21/2018 Sebaceous cyst 04/24/2007 09/20/2016 documented as of this encounter (statuses as of 09/23/2023) [facility] of Past illness Narrative* Problem Noted Date Diagnosed Date Resolved Date Chronic pain of right knee 12/05/2018 1 08/06/2019 Diabetic ulcer of toe of rig ht foot associated with type 2 diabetes mellitus, limited to breakdown of skin 12/05/2018 06/06/2020 End stage kidney disease 11/06/2017 Overview: Has been added to [facility] 12/25/2017 Hypocalcemia 07/31/2017 03/07/2018 Fracture of forearm, closed 01/25/2016 09/20/2016 Chronic 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 02/28/2015 06/06/2020 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 08/31/2014 08/21/2018 Sebaceous cyst 04/24/2007 09/20/2016 documented as of this encounter (statuses as of 10/14/2023) [facility] Narrative* Problem Noted Date Diagnosed Date Resolved Date Chronic pain of right knee 12/05/2018 1 08/06/2019 Diabetic ulcer of toe of rig ht foot associated with type 2 diabetes mellitus, limited to breakdown of skin 12/05/2018 06/06/2020 End stage kidney disease 11/06/2017 Overview: Has been added to [facility] 12/25/2017 Hypocalcemia 07/31/2017 03/07/2018 Fracture of forearm, closed 01/25/2016 09/20/2016 Chronic 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 02/28/2015 06/06/2020 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 08/31/2014 08/21/2018 Sebaceous cyst 04/24/2007 09/20/2016 documented as of this encounter (statuses as of 10/24/2023) [facility] Lindsay Meza [facility] January 07, 2023 12:55pm Note Date/Time January 07, 2023 12:51 pm [facility] Medical Records Department [address] [place] [address] Instructions for Home/Discharge Instructions 01/07/23 1250 MR#: [id number] Acct: [id number] Name: RODRI GALE Rep #:[id number] : [id number] 67 From: Lindsay Meza MD PCP: Dr. Alo Avina MD Status:ADM IN Discharge Instructions Diet Discharge Diet: No restrictions Activity Discharge Activity: Use Walker and - (Non weightbearing status for right lower extremity) Follow Up Care Test Results: Test results from this visit will be discussed in further detail at your follow- up appointment, if applicable. Discharge Plan Admission Admit Date/Time: 01/03/23 13:26 Primary Reason for Your Visit: Right foot infection Attending Provider: Lindsay Meza Primary Care Provider: Alo Avina Consulting Providers: Lane Rojas; Smooth Jordan; Ryan Rahman Instructions Patient Instructions: Osteomyelitis Dc Additional Instructions / Restrictions: DISCHARGE INSTRUCTIONS PLEASE READ *Please take this with you to your next doctors appointment* -You will be discharged on 10 days of Augmentin 875 mg twice daily and ciprofloxacin 500 mg twice daily, he will take 1 dose of each tonight -Please follow-up with podiatry, Dr. Rojas, upon discharge. Please call their office to schedule hospital follow-up appointment upon discharge. -Please continue your other home medications -Please call your primary care provider's office upon discharge to schedule a hospital follow up within 1 week. -For any concerning signs or symptoms please call 911 or proceed to the nearest emergency department Discharge Orders/Prescriptions Prescriptions: New ciprofloxacin HCl 500 mg tablet 500 mg PO Q12H 10 Days Qty: 20 0RF Rx Instructions: First dose tonight amoxicillin-pot clavulanate 875-125 mg tablet 1 tab PO BID 10 Days Qty: 20 0RF Rx Instructions: First dose tonight Continued rosuvastatin [Crestor] 10 mg tablet 10 mg PO DAILY finasteride [Proscar] 5 mg tablet 5 mg PO DAILY insulin glargine [Lantus Solostar U-100 Insulin] 100 unit/mL (3 mL) insulin pen 25 unit SC QPM labetalol 100 mg tablet 150 mg PO BID aspirin [Enteric Coated Aspirin] 81 mg tablet,delayed release (DR/EC) 81 mg PO DAILY mycophenolate sodium 360 mg tablet,delayed release (DR/EC) 720 mg PO Q12H Envarsus XR 1 mg tablet extended release 24 hr 1 mg PO DAILY Rx Instructions: must be taken on empty stomach insulin aspart U-100 [Novolog FlexPen U-100 Insulin] 100 unit/mL (3 mL) Insulin Pen 8 unit SUBCUT TIDCM Patient Comments: PT IS NOW TAKING 8 UNITS BEFORE MEALS IF BS >150 HAS A SLIDING SCALE FAMILY TO BRING IN SLIDING SCALE. cholecalciferol (vitamin D3) [Vitamin D3] 50 mcg (2,000 unit) Tablet 50 mcg PO DAILY nifedipine 30 mg tablet extended release 24hr 30 mg PO DAILY Referrals / Follow Up: Alo Avina MD [Primary Care Provider] - Within [address] Rojas DPM [Med Staff - Active Staff] - Within 1 Month ( -Please follow-up with podiatry upon discharge. Please call their office to schedule hospital follow-up appointment upon discharge.) Disposition Disposition (needs filled in before D/C Order can be placed): Home Health Service 01/07/23 1255<Electronically signed by Lindsay Meza MD>Lindsay Meza MD CC: ANNE Rojas; Dr. Alo Avina MD; Dr. Ryan Rahman MD;Dr. 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, with long-term current use of insulin ([facility]) 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, with long-term current use of insulin ([facility]) Hyperlipidemia, mixed Mixed hyperlipidemia Essential hypertension, benign Diabetes mellitus type 2 with neurological manifestations ([facility]) Type II or unspecified type diabetes mellitus with neurological manifestations, not stated as uncontrolled 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 Vitamin D deficiency Unspecified vitamin D deficiency Prostate disorder Unspecified disorder of prostate [facility] Diagnosis At increased risk of exposure to COVID-19 virus- Primary [facility] Diagnosis Medicare annual wellness visit, subsequent- Primary Routine general medical examination at a [facility] 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 note* Diagnosis Diabetes mellitus type 2 with neurological manifestations (HCC) Type II or unspecified type diabetes mellitus with neurological manifestations, not stated as uncontrolled documented in this encounter [facility] note* Diagnosis 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 disease, with long-term current use of insulin ([facility])- Primary documented in this encounter [facility] note* Diagnosis At increased risk of exposure to COVID-19 virus- Primary [facility] Diagnosis Diabetes mellitus type 2 with [...] forms of tremor [facility] Diagnosis Primary hypertension- Primary Unspecified essential hypertension [facility] Diagnosis Benign prostatic hyperplasia with nocturia [facility]* Diagnosis Screening for colon cancer Special screening for malignant neoplasms, colon documented in this encounter [facility] note* Diagnosis Onset Date Resolution Status Personal history of colonic polyps acute [facility] Work Phone: Evaluation note* Diagnosis Hyperlipidemia, mixed- Primary Mixed hyperlipidemia [...] deficiency documented in this encounter [facility] note* Diagnosis Type 2 diabetes mellitus [...] Renal transplant recipient [facility] Diagnosis Type II diabetes mellitus with [...] edema, with long-term current use of insulin ([facility]) Diabetes mellitus type 2 with neurological manifestations (HCC) Type II or unspecified type diabetes mellitus with neurological manifestations, not stated as uncontrolled [facility] Diagnosis 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 disease, with long-term current use of insulin ([facility])- Primary [facility]* Diagnosis Diabetes mellitus type 2 with neurological manifestations (HCC) Type II or unspecified type diabetes mellitus with neurological manifestations, not stated as uncontrolled [facility] Diagnosis Onset Date Resolution Status Personal history of colonic polyps acute Right foot infection acute Cellulitis of foot, right ac [place] Osteomyelitis acute [facility] Work Phone: Evaluation note* Diagnosis Onset Date Resolution Status Personal history of colonic polyps acute Right foot infection acute Cellulitis of foot, right ac [place] Diabetes mellitus with diabetic polyneuropathy acute 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 layer exposed acute Osteomyelitis acute Right foot infection acute Type 2 diabetes mellitus with foot ulcer acute [facility] Work Phone: Evaluation note* Diagnosis Encounter for change or removal of surgical wound dressing- Primary documented in this encounter [facility] note* Diagnosis Chronic kidney disease (CKD), stage IV (severe) ([facility])- Primary Chronic kidney disease, Stage IV (severe) documented in this encounter [facility] note* Diagnosis Onset Date Resolution Status Right foot infection acute Diabetes mellitus with diabetic polyneuropathy acute Right foot infection acute Type 2 diabetes mellitus with foot ulcer acute [facility] Work Phone: Evaluation note* Diagnosis Type II diabetes mellitus with manifestations (HCC)- Primary Type II or unspecified type diabetes mellitus with other specified manifestations, not stated as uncontrolled [facility]* Diagnosis Benign prostatic hyperplasia with nocturia [facility]* Diagnosis Aftercare for amputation stump- Primary Other orthopedic aftercare documented in this [facility]* Diagnosis Benign prostatic hyperplasia with nocturia [facility]* Diagnosis Diabetes mellitus treated with insulin (HCC)- Primary [facility]* Diagnosis Immunosuppressed status- Primary Unspecified disorder of immune mechanism Kidney replaced by transplant High risk medication use Encounter for long-term (current) use of other medications Aftercare following organ transplant Hypertension secondary to other renal disorders [facility] Essential hypertension, benign- Primary Hyperlipidemia, mixed Mixed hyperlipidemia Diabetes mellitus type 2 with neurological manifestations (HCC) Type II or unspecified type diabetes mellitus with neurological manifestations, not stated as uncontrolled 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 disease, with long-term current use of insulin (HCC) Renal transplant recipient 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) Secondary diabetes mellitus with neurological manifestations, not stated as uncontrolled, or unspecified Benign prostatic hyperplasia, unspecified whether lower urinary tract symptoms present documented [facility]* Diagnosis Essential hypertension, benign- Primary documented in this [facility]* Diagnosis Benign prostatic hyperplasia with nocturia documented in this [facility]* Diagnosis Diabetes mellitus treated with insulin (HCC)- Primary [facility]* Diagnosis Medicare annual wellness visit, subsequent- Primary Routine general medical examination at a health care facility Type 2 diabetes mellitus with stage 2 [...] Essential hypertension, benign Hyperlipidemia, mixed Mixed hyperlipidemia 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) Secondary diabetes mellitus with neurological manifestations, not stated as uncontrolled, or unspecified 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 Essential tremor Essential and other specified forms of tremor Restless leg syndrome Restless legs syndrome (RLS) Vitamin D deficiency Unspecified vitamin D deficiency Benign prostatic hyperplasia with nocturia Advance directive discussed with patient Other specified counseling Prostate disorder Unspecified disorder of prostate Diabetic foot (HCC) Type II or unspecified type diabetes mellitus with other specified manifestations, not stated as uncontrolled [facility] Diagnosis Diabetic foot (HCC)- Primary Type II or unspecified type diabetes mellitus with other specified manifestations, not stated as uncontrolled [facility] Diagnosis Diabetes mellitus treated with insulin (HCC)- Primary [facility]* Diagnosis Diabetic eye exam (HCC)- Primary Type II or unspecified type diabetes mellitus without mention of complication, not stated as uncontrolled [facility] Diagnosis Benign prostatic hyperplasia with nocturia [facility] Espino [facility] November 02, 2022 6:13am Note Date/Time November 02, 2022 6:1 3am [facility] Medical Records Department [address] [place] [address] History & Physical Exam 11/02/2212 MR#: [id number] Acct: [id number] Name: RODRI GALE Rep #:[id number] : 1955 67 From: Smooth Espino MD PCP: Dr. Alo Avina MD Status:[facility] Location: [place] [address] History and Physical Date of Admission: 11/02/22 Chief Complaint: c scope Commercial Producer Required: No Accompanied by: Is patient in pain?: No Allergies metformin Allergy (Verified 09/27/22 14:10) ItchingSulfa (Sulfonamide Antibiotics) Allergy (Verified 09/27/22 14:10) Swelling Medications finasteride 5 mg tablet (Proscar) 5 mg PO DAILY PROSTATE 07/10/17 [History Confirmed 09/27/22] rosuvastatin 10 mg tablet (Crestor) 10 mg PO DAILY CHOLESTEROL 07/10/17 [History Confirmed 09/27/22] ergocalciferol (vitamin D2) 1,250 mcg (50,000 unit) capsule 50,000 unit PO QMONTH VITAMIN 08/19/17 [History Confirmed 09/27/22] aspirin 81 mg tablet,delayed release (Enteric Coated Aspirin) 81 mg PO DAILY 09/27/22 [History Confirmed 09/27/22] insulin glargine 100 unit/mL (3 mL) subcutaneous pen (Lantus Solostar U-100 Insulin) 30 unit subcut QPM 09/27/22 [History Confirmed 09/27/22] insulin lispro 100 unit/mL subcutaneous pen (Humalog KwikPen (U-100) Insulin) 16unit subcut BID 09/27/22 [History Confirmed 09/27/22] labetalol 100 mg tablet 150 mg PO BID 09/27/22 [History Confirmed 09/27/22] mycophenolate sodium 360 mg tablet,delayed release 720 mg PO Q12H 09/27/22 [History Confirmed 09/27/22] nifedipine 60 mg tablet,extended release 24 hr 30 mg PO DAILY 09/27/22 [History Confirmed 09/27/22] tacrolimus 1 mg tablet,extended release 24 hr (Envarsus XR) 1 mg PO DAILY 09/27/22 [History Confirmed 09/27/22] Current gender identity: male [facility] Medical History?(Updated 09/27/22 @ 14:[address] Smooth Espino MD) Anemia AV fistula stenosis Blister (nonthermal), right great toe, initial encounter BPH (benign prostatic hyperplasia) Chronic anemia Diabetic foot ulcer associated with type 2 diabetes mellitus End-stage renal disease on hemodialysis Essential hypertension Hallux limitus of right foot Hypercholesterolemia Malnutrition Open fracture at right wrist or hand level Pressure ulcer, stage II Problem with dialysis access Screening for intestinal cancer Symptomatic bradycardia Type 2 diabetes mellitus with diabetic polyneuropathy Ulcer of right second toe with fat layer exposed Surgical History? History of angioplasty of peripheral vessel History of colonoscopy History of left heart catheterization (05/01/19) Presence of surgically created arteriovenous shunt for hemodialysis Family History? Mother Diabetes Hypertension Heart disease Cancer ?? ? lungBrother DiabetesFather Diabetes Cancer ?? ? pancreasOther CAD (coronary artery disease) CVA (cerebral vascular accident) Kidney disease Social History?(Updated 09/03/19 @ 11:15 by Jazlyn REICH, PA-C) current gender identity:? male Smoking Status:? Former smoker HPI HPI HPI: 67-year-old gentleman with chronic renal disease who we have helped extensively in the past with fistula creation and maintenance.? He now has a renal transplant.? He presents now because of a recall letter for colonoscopy. September 30, 2017 I performed a colonoscopy for him as screening.? I removed a sessile polyp in the proximal transverse colon.? He also had sigmoid diverticulosis.? Patient did have a tortuous left colon.? In addition had a small polyp at the splenic flexure.? The proximal transverse colon was an inflammatory polyp in the splenic flexure polyp with tubular adenoma. He was on hemodialysis at that time since that time he has had a renal transplant in the right lower quadrant.? He is on rejection medication. He is intentionally lost weight.? No bright red blood per rectum or melena.? He does try to walk routinely ROS General General: No weight change, appetite, fatigue, colon cancer, breast cancer or weakness HEENT HEENT: No difficulty swallowing, eye injury, eye surgery, swollen glands or hoarseness Endo Endocrine: Yes diabetes mellitus; No thyroid disease, thyroid cancer, Hair loss, heat intolerance or cold intolerance Skin Skin: No rash or changing moles Breast Breast: No left breast lump, right breast lump, nipple discharge, breast pain, abnormal mammogram, abnormal US or breast enlargement Musc Musculoskeletal: Yes arthritis; No back problems, rheumatoid arthritis, gout or joint pain Cardio Cardiovascular: Yes high blood pressure; No murmur, pacemaker, heart disease, atrial fibrillation, heart attack, heart stent, palpitations, shortness of breat with exertion or chest pain Gastro Gastrointestinal: No abdominal pain, No nausea or vomiting, No diarrhea, No constipation, No blood in stool, No acid reflux, No hemorrhoids, No ulcers, No gallbladder problem and No black,tarry stools [place] Hematologic: No blood thinners, No blood disorders, No bleeding, No anemia and No blood clots Neuro Neurologic: No system reviewed and no additional complaints, except as documented, No as per HPI, No abnormal gait, No abnormal hearing, No abnormal movements, No abnormal speech, No behavioral changes, No burning sensations, No confusion, No convulsions, No disequilibrium, No dizziness, No localized weakness, No frequent falls, No headache(s), No lack of coordination, No loss ofvision, No memory loss, No numbness, No other visual disturbances, No radicular pain, No restless legs, No sensory deficit, No syncope, No tingling, No tremor(s), No weakness and No other Exam Const General: cooperative, comfortable and no acute distress Nutritional Appearance: average body habitus Other: Diffuse gross tremors noted HENNH Head: normal to inspection Eyes General: appearance normal, both eyes and all related structures Neck Neck: normal visual inspection Chest Chest palpation & inspection: normal inspection of the chest Resp Effort & Inspection: normal respiratory effort Auscultation: clear to auscultation bilaterally Cardio Rate: regular rate Rhythm: regular rhythm GI Palpation: soft and no hepatosplenomegaly Auscultation: normal bowel sounds Other: Healed oblique incision right lower quadrant with palpable transplanted kidney.?Nontender Musc Cervical Spine: normal cervical lordosis Skin General: no rashes or lesions noted Neuro General: patient alert, patient awake and patient oriented x3 Extrem General: no calf tenderness Psych Appearance: grossly normal Assessment and Plan Assessment and Plan (1) Personal history of colonic polyps: ?Status:?Acute ?Plan: I recommended the patient a colonoscopy with possible biopsy or polypectomy as indicated.? We will arrange this to be first case of the day so he does not misshis rejection medications.? We will be very cautious with abdominal support and palpation and respecting the kidney and the right lower quadrant.? Because of his medical comorbidities we will use monitored anesthesia care. He has had an opportunity to ask and have questions answered.? We will schedule and proceed at his discretion. Copy: Dr. Alo Espino M.D., F.A.C.S \I have examined the patient and the H&P has been reviewed. There are no clinical changes since date of exam. Smooth Espino M.D., F.A.C.S. 11/02/22 0613 <Electronically signed by Smooth Espino MD> Cosigner Signature (if applicable): CC: Dr. Alo Avina MD; Dr. Smooth Espino MD~ Signed [facility] Work Phone: Reason for referral (narrative)No reason for referral information availableWKet[facility] Work Phone: Summary Purpose Family History No Family History [...] of chronic ki dney disease(V18.69, Z84.1) Status:Active Relationship Condition Age at Onset Recorded Date/T [place] Not Specified Coronary artery disease Unknown Kidney disorder Unknown Cerebrovascular accident (CVA) Unknown mother Diabetes mellitus Unknown Hypertension Unknown Cardiac disease Unknown Malignant neoplasm Unknown brother Diabetes mellitus Unknown father Diabetes mellitus Unknown Advance Directives No Advanced Directives Records Found Advance Directive Response Recorded Date/ Time Advance Directives No May 01, 2019 8:31am Living Will No May 01 8:31am Power of Accountant Supervisor No May 01, 2019 8:31am Latest Code Status on File Code Status Date Activated Date Inactivated Comments Full Code 10/22/2019 12:56 PM Full Code 10/21/2019 7:13 PM 10/22/2019 12:56 PM Latest Code Status on File Code Status Date Activated Date Inactivated Comments Full Code 10/22/2019 12:56 PM Code Status History Code Status Date Activated Date Inactivated Comments Full Code 10/21/2019 7:13 PM 10/22/2019 12:56 PM Advance Directive Response Recorded Date/ Time Advance Directives No May 01, 2019 7:31am Living Will No May 01 7:31am Power of Accountant Supervisor No May 01, 2019 7:31am Advance Directive Response Recorded Date/ Time Advance Directives No May 01, 2019 8:31am Living Will No October 29, 2022 3:40pm Power of Accountant Supervisor No October 29 3:40pm Advance Directive Response Recorded Date/ Time Advance Directives No May 01, 2019 8:31am Living Will No January 03, 2023 11:12am Power of Accountant Supervisor No January 03 11:12am Advance Directive Response Recorded Date/ Time Advance Directives No May 01, 2019 8:31am Living Will No January 03, 2023 2:39pm Power of Accountant Supervisor No January 03 2:39pm Advance Directive Response Recorded Date/ Time Advance Directives No May 01, 2019 7:31am Living Will No January 03, 2023 1:39pm Power of Accountant Supervisor No January 03 1:39pm Documents on File Type Date Recorded Patient Human Resource Adviser Expl anation Advance Directive(s) 06/20/2023 9:20 AM Documents on File Type Date Recorded Patient Human Resource Adviser Expl anation Advance Directive(s) 06/20/2023 9:20 AM Date Activated Date Inactivated Comments 10/22/2019 12:56 PM Date Activated Date Inactivated Comments 10/21/2019 7:13 PM 10/22/2019 12:56 PM Advance Directive Response Recorded Date/ Time Advance Directives No May 01, 2019 8:31am Chief Complaint and Reason for Visit Chief Complaint S/O S/O S/O Chief Complaint S/O S/O S/O S/O Chief Complaint S/O S/O Chief Complaint S/O S/O C-Scope/Recall Letter Reason for Visit Personal history of colonic polyps Chief Complaint S/O C-Scope/Recall Letter S/O Reason for Visit Personal history of colonic polyps Chief Complaint S/O C-Scope/Recall Letter S/O SLIGHT FEVER/ SWOLLEN RT FOOT CELLULITIS, RIGHT FOOT, POSSIBLE OSTEOMYELITIS Reason for Visit Personal history of colonic polyps Right foot infection Cellulitis of foot, right Osteomyelitis Chief Complaint C-Scope/Recall Lette r S/O SLIGHT FEVER/ SWOLLEN RT FOOT DM FOOT ULCER CELLULITIS, RIGHT FOOT, POSSIBLE OSTEOMYELITIS DM FOOT ULCER DM FOOT ULCER DM FOOT ULCER DM FOOT ULCER Reason for Visit Personal history of colonic polyps Right foot infection Cellulitis of foot, right Diabetes mellitus with diabetic polyneuropathy 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 layer exposed Osteomyelitis Right foot infection Type 2 diabetes mellitus with foot ulcer Chief Complaint S/O SLIGHT FEVER/ SWOLLEN RT FOOT DM FOOT ULCER CELLULITIS, RIGHT FOOT, POSSIBLE OSTEOMYELITIS PREOP DM FOOT ULCER DM FOOT ULCER DM FOOT ULCER DM FOOT ULCER S/O Reason for Visit Right foot infection Diabetes mellitus with diabetic polyneuropathy Right foot infection Type 2 diabetes mellitus with foot ulcer Chief Complaint S/O Reason for Referral Specialty Diagnoses / Procedures Referred By Hiro velasquez Referred To Contact General Surgery Diagnoses Screening for colon cancer Procedures CONSULT TO GENERAL SURGERY OFFICE/OUTPATIENT [facility] 60-74 MINUTES Alo Avina MD [address] [place] [address] Referral ID Status Reason Start Date Expiration Date Visits Requested Visits Authorized [id number] Pending Review PCP Requested Referral 10/01/2022 10/01/2023 1 1 Specialty Diagnoses / Procedures Referred By Hiro velasquez Referred To Contact Endocrinology Diagnoses Type 2 [...] manifestations (HCC) Procedures CONSULT TO ENDOCRINOLOGY OFFICE/OUTPATIENT [facility] 60-[place] [address] [place] [id number] Referral ID Status Reason Start Date Expiration Date Visits Requested Visits Authorized [id number] Pending Review PCP Requested Referral 12/06/2022 12/06/2023 1 1 Specialty Diagnoses / Procedures Referred By Hiro velasquez Referred To Contact Alo Avina MD [address] [place] [address] Referral ID Status Reason Start Date Expiration Date V isits Requested Visits Authorized [id number] Pending Review 1 1 Specialty Diagnoses / Procedures Referred By Hiro velasquez Referred To Contact Diagnoses Type II diabetes mellitus with manifestations (HCC) Procedures CONSULT TO DIABETES EDUCATION DSME/MNT MEDICAL NUTRITION ASSMT&IVNTJ INDIV EACH 15 CT MEDICAL NUTRITION ASSMT&IVNTJ INDIV EACH 15 CT MEDICAL NUTRITION ASSMT&IVNTJ INDIV EACH 15 CT MEDICAL NUTRITION ASSMT&IVNTJ INDIV EACH 15 CT Claribel Cope APRN.IMPREGNATOR [address] [place] [address] Referral ID Status Reason Start Date Expiration Date Visits Requested Visits Authorized [id number] Pending Review PCP Requested Referral 12/26/2022 12/26/2023 1 1 Specialty Diagnoses / Procedures Referred By Contac t Referred To Contact Nephrology Diagnoses Chronic kidney disease (CKD), stage IV (severe) (HCC) Procedures CONSULT TO NEPHROLOGY OFFICE/OUTPATIENT [facility] 60-74 MINUTES Alo Avina MD [address] [place] [address] Referral ID Status Reason Start Date Expiration Date Visits Requested Visits Authorized [id number] Pending Review PCP Requested Referral 02/25/2023 02/25/2024 1 1 Specialty Diagnoses / Procedures Referred By Contac t Referred To Contact Claribel Cope APRN.IMPREGNATOR [id number] [place] [id number] Referral ID Status Reason Start Date Expiration Date V isits Requested Visits Authorized [id number] Authorized 07/08/2023 07/07/2024 1 1 Specialty Diagnoses / Procedures Referred By Contac t Referred To Contact Podiatry Diagnoses Diabetic foot (HCC) Procedures CONSULT TO PODIATRY OFFICE/OUTPATIENT [facility] 60 MINUTES Alo Avina MD [address] [place] [address] Referral ID Status Reason Start Date Expiration Date Visits Requested Visits Authorized [id number] Authorized PCP Requested Referral 07/12/2024 07/11/2025 1 1 Additional Source Comments Reason for Visit (unrecogniz ed section and content) Reason Comments Kidney Recipient Referral Reason Comments Patient Education Reason Comments Appointment Reason Onset Date Comments Refill Request 09/26/2021 Reason Onset Date Comments Refill Request 10/12/2021 Reason Comments Orders Reason Comments Immunization/Injection Specialty Diagnoses / Procedures Referred By Contac t Referred To Contact Infectious Diseases Diagnoses At increased risk of exposure to COVID-19 virus Sharda Lemons MD [address] [place] [address] Referral ID Status Reason Start Date Expiration Date V isits Requested Visits Authorized [id number] New Request 10/12/2021 11/06/2022 1 1 Reason Comments Medicare Wellness Exam Specialty Diagnoses / Procedures Referred By Contac t Referred To Contact Family Practice / FAMILY MEDICINE Diagnoses Follow-up exam medicare 6 months Procedures OFFICE/OUTPATIENT ESTABLISHED MOD [facility] 30-39 MIN 4C [facility] [employer] PA-C [address] [place] [address] Alo Avina MD [address] [place] [address] Referral ID Status Reason Start Date Expiration Date V isits Requested Visits Authorized [id number] Authorized 11/06/2021 07/07/2022 10 10 Reason Comments Medication Request Reason Onset Date Comments Refill Request 02/06/2022 Reason Onset Date Comments [facility] Outreach 03/05/2022 [employer] Medicare Reason Onset Date Comments Refill Request 04/11/2022 Reason Onset Date Comments [facility] Outreach 04/20/2022 [employer] Care Gaps Reason Onset [...] (HCC) Procedures CONSULT TO ENDOCRINOLOGY OFFICE/OUTPATIENT NEW HIGH MDM [id number] MINUTES Alo Avina MD [address] [place] [address] Referral ID Status Reason Start Date Expiration Date Visits Requested Visits Authorized [id number] Pending Review PCP Requested Referral 12/06/2022 12/06/2023 1 1 Reason Comments Patient Update Reason Comments Results Reason Comments Results, Lab Reason Comments Home Health update Reason Comments diabetes type 2 Not using dexcom as its not covered by insurance Reason Comments Blood Sugar Readings Reason Onset Date Comments Refill Request 03/25/2023 Reason Comments Outside [id number] Ordered Reason Comments Outside Ophthalmology Reason Onset Date Comments Refill Request 09/18/2023 Reason Onset Date Comments Refill Request 09/23/2023 Reason Comments External / Eye exam Reason Comments Consult Opthalmology Reason Comments Orders Formulary change for insulin Reason Onset Date Comments Refill Request 11/06/2023 Reason Comments ext document Labs Reason Comments Orders Labs to be drawn at [facility] lab Reason Comments type 2 Diabetes Reason Comments Kidney Recipient Follow-up Reason Comments 6 Month Exam Reason Comments Recheck Blood pressure Reason Onset Date Comments Refill Request 03/02/2024 Reason Comments Results Outside labs Reason Onset Date Comments Refill Request 04/25/2024 Reason Comments type 2 diabetes New medication Reason Comments Patient Request Reason Onset Date Comments Refill Request 06/05/2024 Reason Comments Patient Update [employer] non formulary notice Reason Comments Consult Reason Comments Renew Handicap Placard Reason Onset Date Comments Population Health Navigation Outreach 09/10/2024 [employer] High Risk Attempt #1 Reason Comments Consult Reason Onset Date Comments Refill Request 10/23/2024 Reason Comments Type 2 Diabetes Reason Onset Date Comments Refill Request 11/20/2024 Reason Onset Date Comments Refill Request 01/09/2025 Reason Comments Abstract Ophthalmology OV Reason Comments Forms Reason Comments Abstract Vitreo Retinal Consu ltants (unrecognized sect ion and content) No Status Records FoundNo Status Records FoundNo Status Records FoundNo Status Records FoundNo Status Records Found INFORMATION SOURCE (unrecogn ized section and content) DATE CREATED AUTHOR 04/11/2019 [employer] DATE CREATED AUTHOR AUTHOR'S ORGANIZ ATION 09/03/2020 [facility] DATE CREATED AUTHOR AUTHOR'S ORGANIZ ATION 11/15/2024 [facility] DATE CREATED AUTHOR AUTHOR'S ORGANIZ ATION 03/31/2025 [facility] DATE CREATED AUTHOR AUTHOR'S ORGANIZ ATION 04/29/2025 [facility] Source Comments (unrecognize d section and content) In the event this informatio n is protected by the Federal Confidentiality of Alcohol and Drug Abuse Patient Records regulations: The Federal rules restrict any use of the information to criminally investigate or prosecute any alcohol or drug abuse patient.[facility] the event this information is protected by the Federal Confidentiality of Alcohol and Drug Abuse Patient Records regulations: The Federal rules restrict any use of the information to criminally investigate or prosecute any alcohol or drug abuse patient.[facility] HospitalIn the event this information is protected by the Federal Confidentiality of Alcohol and Drug Abuse Patient Records regulations: The Federal rules restrict any use of the information to criminally investigate or prosecute any alcohol or drug abuse patient.[facility] HospitalIn the event this information is protected by the Federal Confidentiality of Alcohol and Drug Abuse Patient Records regulations: The Federal rules restrict any use of the information to criminally investigate or prosecute any alcohol or drug abuse patient.[facility] HospitalIn the event this information is protected by the Federal Confidentiality of Alcohol and Drug Abuse Patient Records regulations: The Federal rules restrict any use of the information to criminally investigate or prosecute any alcohol or drug abuse patient.[facility] HospitalIn the event this information is protected by the Federal Confidentiality of Alcohol and Drug Abuse Patient Records regulations: The Federal rules restrict any use of the information to criminally investigate or prosecute any alcohol or drug abuse patient.[facility] HospitalIn the event this information is protected by the Federal Confidentiality of Alcohol and Drug Abuse Patient Records regulations: The Federal rules restrict any use of the information to criminally investigate or prosecute any alcohol or drug abuse patient.[facility] HospitalIn the event this information is protected by the Federal Confidentiality of Alcohol and Drug Abuse Patient Records regulations: The Federal rules restrict any use of the information to criminally investigate or prosecute any alcohol or drug abuse patient.[facility] HospitalIn the event this information is protected by the Federal Confidentiality of Alcohol and Drug Abuse Patient Records regulations: The Federal rules restrict any use of the information to criminally investigate or prosecute any alcohol or drug abuse patient.[facility] HospitalIn the event this information is protected by the Federal Confidentiality of Alcohol and Drug Abuse Patient Records regulations: The Federal rules restrict any use of the information to criminally investigate or prosecute any alcohol or drug abuse patient.[facility] HospitalIn the event this information is protected by the Federal Confidentiality of Alcohol and Drug Abuse Patient Records regulations: The Federal rules restrict any use of the information to criminally investigate or prosecute any alcohol or drug abuse patient.[facility] HospitalIn the event this information is protected by the Federal Confidentiality of Alcohol and Drug Abuse Patient Records regulations: The Federal rules restrict any use of the information to criminally investigate or prosecute any alcohol or drug abuse patient.[facility] HospitalIn the event this information is protected by the Federal Confidentiality of Alcohol and Drug Abuse Patient Records regulations: The Federal rules restrict any use of the information to criminally investigate or prosecute any alcohol or drug abuse patient.[facility] HospitalIn the event this information is protected by the Federal Confidentiality of Alcohol and Drug Abuse Patient Records regulations: The Federal rules restrict any use of the information to criminally investigate or prosecute any alcohol or drug abuse patient.[facility] HospitalIn the event this information is protected by the Federal Confidentiality of Alcohol and Drug Abuse Patient Records regulations: The Federal rules restrict any use of the information to criminally investigate or prosecute any alcohol or drug abuse patient.[facility] HospitalIn the event this information is protected by the Federal Confidentiality of Alcohol and Drug Abuse Patient Records regulations: The Federal rules restrict any use of the information to criminally investigate or prosecute any alcohol or drug abuse patient.[facility] HospitalIn the event this information is protected by the Federal Confidentiality of Alcohol and Drug Abuse Patient Records regulations: The Federal rules restrict any use of the information to criminally investigate or prosecute any alcohol or drug abuse patient.[facility] HospitalIn the event this information is protected by the Federal Confidentiality of Alcohol and Drug Abuse Patient Records regulations: The Federal rules restrict any use of the information to criminally investigate or prosecute any alcohol or drug abuse patient.[facility] HospitalIn the event this information is protected by the Federal Confidentiality of Alcohol and Drug Abuse Patient Records regulations: The Federal rules restrict any use of the information to criminally investigate or prosecute any alcohol or drug abuse patient.[facility] HospitalIn the event this information is protected by the Federal Confidentiality of Alcohol and Drug Abuse Patient Records regulations: The Federal rules restrict any use of the information to criminally investigate or prosecute any alcohol or drug abuse patient.[facility] HospitalIn the event this information is protected by the Federal Confidentiality of Alcohol and Drug Abuse Patient Records regulations: The Federal rules restrict any use of the information to criminally investigate or prosecute any alcohol or drug abuse patient.[facility] HospitalIn the event this information is protected by the Federal Confidentiality of Alcohol and Drug Abuse Patient Records regulations: The Federal rules restrict any use of the information to criminally investigate or prosecute any alcohol or drug abuse patient.[facility] HospitalIn the event this information is protected by the Federal Confidentiality of Alcohol and Drug Abuse Patient Records regulations: The Federal rules restrict any use of the information to criminally investigate or prosecute any alcohol or drug abuse patient.[facility] HospitalIn the event this information is protected by the Federal Confidentiality of Alcohol and Drug Abuse Patient Records regulations: The Federal rules restrict any use of the information to criminally investigate or prosecute any alcohol or drug abuse patient.[facility] HospitalIn the event this information is protected by the Federal Confidentiality of Alcohol and Drug Abuse Patient Records regulations: The Federal rules restrict any use of the information to criminally investigate or prosecute any alcohol or drug abuse patient.[facility] HospitalIn the event this information is protected by the Federal Confidentiality of Alcohol and Drug Abuse Patient Records regulations: The Federal rules restrict any use of the information to criminally investigate or prosecute any alcohol or drug abuse patient.[facility] HospitalIn the event this information is protected by the Federal Confidentiality of Alcohol and Drug Abuse Patient Records regulations: The Federal rules restrict any use of the information to criminally investigate or prosecute any alcohol or drug abuse patient.[facility] HospitalIn the event this information is protected by the Federal Confidentiality of Alcohol and Drug Abuse Patient Records regulations: The Federal rules restrict any use of the information to criminally investigate or prosecute any alcohol or drug abuse patient.[facility] HospitalIn the event this information is protected by the Federal Confidentiality of Alcohol and Drug Abuse Patient Records regulations: The Federal rules restrict any use of the information to criminally investigate or prosecute any alcohol or drug abuse patient.[facility] HospitalIn the event this information is protected by the Federal Confidentiality of Alcohol and Drug Abuse Patient Records regulations: The Federal rules restrict any use of the information to criminally investigate or prosecute any alcohol or drug abuse patient.[facility] HospitalIn the event this information is protected by the Federal Confidentiality of Alcohol and Drug Abuse Patient Records regulations: The Federal rules restrict any use of the information to criminally investigate or prosecute any alcohol or drug abuse patient.[facility] HospitalIn the event this information is protected by the Federal Confidentiality of Alcohol and Drug Abuse Patient Records regulations: The Federal rules restrict any use of the information to criminally investigate or prosecute any alcohol or drug abuse patient.[facility] HospitalIn the event this information is protected by the Federal Confidentiality of Alcohol and Drug Abuse Patient Records regulations: The Federal rules restrict any use of the information to criminally investigate or prosecute any alcohol or drug abuse patient.[facility] HospitalIn the event this information is protected by the Federal Confidentiality of Alcohol and Drug Abuse Patient Records regulations: The Federal rules restrict any use of the information to criminally investigate or prosecute any alcohol or drug abuse patient.[facility] HospitalIn the event this information is protected by the Federal Confidentiality of Alcohol and Drug Abuse Patient Records regulations: The Federal rules restrict any use of the information to criminally investigate or prosecute any alcohol or drug abuse patient.[facility] HospitalIn the event this information is protected by the Federal Confidentiality of Alcohol and Drug Abuse Patient Records regulations: The Federal rules restrict any use of the information to criminally investigate or prosecute any alcohol or drug abuse patient.[facility] HospitalIn the event this information is protected by the Federal Confidentiality of Alcohol and Drug Abuse Patient Records regulations: The Federal rules restrict any use of the information to criminally investigate or prosecute any alcohol or drug abuse patient.[facility] HospitalIn the event this information is protected by the Federal Confidentiality of Alcohol and Drug Abuse Patient Records regulations: The Federal rules restrict any use of the information to criminally investigate or prosecute any alcohol or drug abuse patient.[facility] HospitalIn the event this information is protected by the Federal Confidentiality of Alcohol and Drug Abuse Patient Records regulations: The Federal rules restrict any use of the information to criminally investigate or prosecute any alcohol or drug abuse patient.[facility] HospitalIn the event this information is protected by the Federal Confidentiality of Alcohol and Drug Abuse Patient Records regulations: The Federal rules restrict any use of the information to criminally investigate or prosecute any alcohol or drug abuse patient.[facility] HospitalIn the event this information is protected by the Federal Confidentiality of Alcohol and Drug Abuse Patient Records regulations: The Federal rules restrict any use of the information to criminally investigate or prosecute any alcohol or drug abuse patient.[facility] HospitalIn the event this information is protected by the Federal Confidentiality of Alcohol and Drug Abuse Patient Records regulations: The Federal rules restrict any use of the information to criminally investigate or prosecute any alcohol or drug abuse patient.[facility] HospitalIn the event this information is protected by the Federal Confidentiality of Alcohol and Drug Abuse Patient Records regulations: The Federal rules restrict any use of the information to criminally investigate or prosecute any alcohol or drug abuse patient.[facility] HospitalIn the event this information is protected by the Federal Confidentiality of Alcohol and Drug Abuse Patient Records regulations: The Federal rules restrict any use of the information to criminally investigate or prosecute any alcohol or drug abuse patient.[facility] HospitalIn the event this information is protected by the Federal Confidentiality of Alcohol and Drug Abuse Patient Records regulations: The Federal rules restrict any use of the information to criminally investigate or prosecute any alcohol or drug abuse patient.[facility] HospitalIn the event this information is protected by the Federal Confidentiality of Alcohol and Drug Abuse Patient Records regulations: The Federal rules restrict any use of the information to criminally investigate or prosecute any alcohol or drug abuse patient.[facility] HospitalIn the event this information is protected by the Federal Confidentiality of Alcohol and Drug Abuse Patient Records regulations: The Federal rules restrict any use of the information to criminally investigate or prosecute any alcohol or drug abuse patient.[facility] HospitalIn the event this information is protected by the Federal Confidentiality of Alcohol and Drug Abuse Patient Records regulations: The Federal rules restrict any use of the information to criminally investigate or prosecute any alcohol or drug abuse patient.[facility] HospitalIn the event this information is protected by the Federal Confidentiality of Alcohol and Drug Abuse Patient Records regulations: The Federal rules restrict any use of the information to criminally investigate or prosecute any alcohol or drug abuse patient.[facility] HospitalIn the event this information is protected by the Federal Confidentiality of Alcohol and Drug Abuse Patient Records regulations: The Federal rules restrict any use of the information to criminally investigate or prosecute any alcohol or drug abuse patient.[facility] HospitalIn the event this information is protected by the Federal Confidentiality of Alcohol and Drug Abuse Patient Records regulations: The Federal rules restrict any use of the information to criminally investigate or prosecute any alcohol or drug abuse patient.[facility] HospitalIn the event this information is protected by the Federal Confidentiality of Alcohol and Drug Abuse Patient Records regulations: The Federal rules restrict any use of the information to criminally investigate or prosecute any alcohol or drug abuse patient.[facility] HospitalIn the event this information is protected by the Federal Confidentiality of Alcohol and Drug Abuse Patient Records regulations: The Federal rules restrict any use of the information to criminally investigate or prosecute any alcohol or drug abuse patient.[facility] HospitalIn the event this information is protected by the Federal Confidentiality of Alcohol and Drug Abuse Patient Records regulations: The Federal rules restrict any use of the information to criminally investigate or prosecute any alcohol or drug abuse patient.[facility] HospitalIn the event this information is protected by the Federal Confidentiality of Alcohol and Drug Abuse Patient Records regulations: The Federal rules restrict any use of the information to criminally investigate or prosecute any alcohol or drug abuse patient.[facility] HospitalIn the event this information is protected by the Federal Confidentiality of Alcohol and Drug Abuse Patient Records regulations: The Federal rules restrict any use of the information to criminally investigate or prosecute any alcohol or drug abuse patient.[facility] HospitalIn the event this information is protected by the Federal Confidentiality of Alcohol and Drug Abuse Patient Records regulations: The Federal rules restrict any use of the information to criminally investigate or prosecute any alcohol or drug abuse patient.[facility] HospitalIn the event this information is protected by the Federal Confidentiality of Alcohol and Drug Abuse Patient Records regulations: The Federal rules restrict any use of the information to criminally investigate or prosecute any alcohol or drug abuse patient.[facility] HospitalIn the event this information is protected by the Federal Confidentiality of Alcohol and Drug Abuse Patient Records regulations: The Federal rules restrict any use of the information to criminally investigate or prosecute any alcohol or drug abuse patient.[facility] HospitalIn the event this information is protected by the Federal Confidentiality of Alcohol and Drug Abuse Patient Records regulations: The Federal rules restrict any use of the information to criminally investigate or prosecute any alcohol or drug abuse patient.[facility] HospitalIn the event this information is protected by the Federal Confidentiality of Alcohol and Drug Abuse Patient Records regulations: The Federal rules restrict any use of the information to criminally investigate or prosecute any alcohol or drug abuse patient.[facility] HospitalIn the event this information is protected by the Federal Confidentiality of Alcohol and Drug Abuse Patient Records regulations: The Federal rules restrict any use of the information to criminally investigate or prosecute any alcohol or drug abuse patient.[facility] HospitalIn the event this information is protected by the Federal Confidentiality of Alcohol and Drug Abuse Patient Records regulations: The Federal rules restrict any use of the information to criminally investigate or prosecute any alcohol or drug abuse patient.[facility] HospitalIn the event this information is protected by the Federal Confidentiality of Alcohol and Drug Abuse Patient Records regulations: The Federal rules restrict any use of the information to criminally investigate or prosecute any alcohol or drug abuse patient.[facility] HospitalIn the event this information is protected by the Federal Confidentiality of Alcohol and Drug Abuse Patient Records regulations: The Federal rules restrict any use of the information to criminally investigate or prosecute any alcohol or drug abuse patient.[facility] HospitalIn the event this information is protected by the Federal Confidentiality of Alcohol and Drug Abuse Patient Records regulations: The Federal rules restrict any use of the information to criminally investigate or prosecute any alcohol or drug abuse patient.[facility] HospitalIn the event this information is protected by the Federal Confidentiality of Alcohol and Drug Abuse Patient Records regulations: The Federal rules restrict any use of the information to criminally investigate or prosecute any alcohol or drug abuse patient.[facility] HospitalIn the event this information is protected by the Federal Confidentiality of Alcohol and Drug Abuse Patient Records regulations: The Federal rules restrict any use of the information to criminally investigate or prosecute any alcohol or drug abuse patient.[facility] HospitalIn the event this information is protected by the Federal Confidentiality of Alcohol and Drug Abuse Patient Records regulations: The Federal rules restrict any use of the information to criminally investigate or prosecute any alcohol or drug abuse patient.[facility] HospitalIn the event this information is protected by the Federal Confidentiality of Alcohol and Drug Abuse Patient Records regulations: The Federal rules restrict any use of the information to criminally investigate or prosecute any alcohol or drug abuse patient.[facility] HospitalIn the event this information is protected by the Federal Confidentiality of Alcohol and Drug Abuse Patient Records regulations: The Federal rules restrict any use of the information to criminally investigate or prosecute any alcohol or drug abuse patient.[facility] HospitalIn the event this information is protected by the Federal Confidentiality of Alcohol and Drug Abuse Patient Records regulations: The Federal rules restrict any use of the information to criminally investigate or prosecute any alcohol or drug abuse patient.[facility] HospitalIn the event this information is protected by the Federal Confidentiality of Alcohol and Drug Abuse Patient Records regulations: The Federal rules restrict any use of the information to criminally investigate or prosecute any alcohol or drug abuse patient.[facility] HospitalIn the event this information is protected by the Federal Confidentiality of Alcohol and Drug Abuse Patient Records regulations: The Federal rules restrict any use of the information to criminally investigate or prosecute any alcohol or drug abuse patient.[facility] HospitalIn the event this information is protected by the Federal Confidentiality of Alcohol and Drug Abuse Patient Records regulations: The Federal rules restrict any use of the information to criminally investigate or prosecute any alcohol or drug abuse patient.[facility] HospitalIn the event this information is protected by the Federal Confidentiality of Alcohol and Drug Abuse Patient Records regulations: The Federal rules restrict any use of the information to criminally investigate or prosecute any alcohol or drug abuse patient.[facility] HospitalIn the event this information is protected by the Federal Confidentiality of Alcohol and Drug Abuse Patient Records regulations: The Federal rules restrict any use of the information to criminally investigate or prosecute any alcohol or drug abuse patient.[facility] HospitalIn the event this information is protected by the Federal Confidentiality of Alcohol and Drug Abuse Patient Records regulations: The Federal rules restrict any use of the information to criminally investigate or prosecute any alcohol or drug abuse patient.[facility] HospitalIn the event this information is protected by the Federal Confidentiality of Alcohol and Drug Abuse Patient Records regulations: The Federal rules restrict any use of the information to criminally investigate or prosecute any alcohol or drug abuse patient.[facility] HospitalIn the event this information is protected by the Federal Confidentiality of Alcohol and Drug Abuse Patient Records regulations: The Federal rules restrict any use of the information to criminally investigate or prosecute any alcohol or drug abuse patient.[facility] HospitalIn the event this information is protected by the Federal Confidentiality of Alcohol and Drug Abuse Patient Records regulations: The Federal rules restrict any use of the information to criminally investigate or prosecute any alcohol or drug abuse patient.[facility] HospitalIn the event this information is protected by the Federal Confidentiality of Alcohol and Drug Abuse Patient Records regulations: The Federal rules restrict any use of the information to criminally investigate or prosecute any alcohol or drug abuse patient.[facility] HospitalIn the event this information is protected by the Federal Confidentiality of Alcohol and Drug Abuse Patient Records regulations: The Federal rules restrict any use of the information to criminally investigate or prosecute any alcohol or drug abuse patient.[facility] HospitalIn the event this information is protected by the Federal Confidentiality of Alcohol and Drug Abuse Patient Records regulations: The Federal rules restrict any use of the information to criminally investigate or prosecute any alcohol or drug abuse patient.[facility] HospitalIn the event this information is protected by the Federal Confidentiality of Alcohol and Drug Abuse Patient Records regulations: The Federal rules restrict any use of the information to criminally investigate or prosecute any alcohol or drug abuse patient.[facility] HospitalIn the event this information is protected by the Federal Confidentiality of Alcohol and Drug Abuse Patient Records regulations: The Federal rules restrict any use of the information to criminally investigate or prosecute any alcohol or drug abuse patient.[facility] HospitalIn the event this information is protected by the Federal Confidentiality of Alcohol and Drug Abuse Patient Records regulations: The Federal rules restrict any use of the information to criminally investigate or prosecute any alcohol or drug abuse patient.[facility] HospitalIn the event this information is protected by the Federal Confidentiality of Alcohol and Drug Abuse Patient Records regulations: The Federal rules restrict any use of the information to criminally investigate or prosecute any alcohol or drug abuse patient.[facility] HospitalIn the event this information is protected by the Federal Confidentiality of Alcohol and Drug Abuse Patient Records regulations: The Federal rules restrict any use of the information to criminally investigate or prosecute any alcohol or drug abuse patient.[facility] HospitalIn the event this information is protected by the Federal Confidentiality of Alcohol and Drug Abuse Patient Records regulations: The Federal rules restrict any use of the information to criminally investigate or prosecute any alcohol or drug abuse patient.[facility] HospitalIn the event this information is protected by the Federal Confidentiality of Alcohol and Drug Abuse Patient Records regulations: The Federal rules restrict any use of the information to criminally investigate or prosecute any alcohol or drug abuse patient.[facility] HospitalIn the event this information is protected by the Federal Confidentiality of Alcohol and Drug Abuse Patient Records regulations: The Federal rules restrict any use of the information to criminally investigate or prosecute any alcohol or drug abuse patient.[facility] Care Teams (unrecognized sec tion and content) Core Composer Feeder Relationship Specialty Start Date End Date Alo Avina MD [address] [place] [address] PCP - General Family Practice 05/17/21 Core Composer Feeder Relationship Specialty Start Date End Date Alo Avina MD [address] [place] [address] PCP - General Family Practice 05/17/21 Core Composer Feeder Relationship Specialty Start Date End Date Alo Avina MD [address] [place] [address] PCP - General Family Practice 05/17/21 Core Composer Feeder Relationship Specialty Start Date End Date Alo Avina MD [address] [place] [address] PCP - General Family Medicine 05/19/21 Abbie Rodriguez DO [address] [phone] Nephrology 11/20/19 Core Composer Feeder Relationship Specialty Start Date End Date Alo Avina MD [address] [place] [address] [place] [address] PCP - General Family Practice 05/17/21 Core Composer Feeder Relationship Specialty Start Date End Date Alo Avina MD [address] [place] [address] PCP - General Family Practice 05/17/21 Core Composer Feeder Relationship Specialty Start Date End Date Alo Avina MD [address] [facility] [place] [address] PCP - General Family Practice 05/17/21 Core Composer Feeder Relationship Specialty Start Date End Date Alo Avina MD [address] [facility] [place] [address] PCP - General Family Medicine 05/17/21 Core Composer Feeder Relationship Specialty [place] [address] [place] [address], [place] [address] PCP - General Family Medicine 05/17/21 Core Composer Feeder Relationship Specialty Start Date End Date Alo Avina MD [address] [place] [address] PCP - General Family Medicine 05/19/21 [place] [address] [place] [address] [phone] Nephrology 11/20/19 Core Composer Feeder Relationship Specialty Start Date End Date Alo Avina MD [address] [place] [address] PCP - General Family Medicine 05/17/21 Core Composer Feeder Relationship Specialty Start Date End Date Alo Avina MD [address] [place] [address] PCP - General Family Medicine 05/17/21 Core Composer Feeder Relationship Specialty [place] [address] [place] [address], [place] [address] PCP - General Family Medicine 05/17/21 Core Composer Feeder Relationship Specialty Start Date End Date Alo Avina MD [address] [place] [address] [place] [address] PCP - General Family Medicine 05/17/21 Team Status: Active Member Role Status Dates Dr. Roman Espino III, MD Family Provider Active Dr. Alo Avina MD Primary Care Provider Active Team Status: Inactive Member Role Status Dates Dr. Alo Avina MD Primary Care Provider Active Dr. Smooth Espino MD Attending Provider, Referring Provider Active Team Status: Inactive Member Role Status Dates Dr. Jim Squires MD Attending Provider, Referring Provi gustavo Active Dr. Alo Avina MD Primary Care Provider Active Team Status: Active Member Role Status Dates Dr. Alo Avina MD Primary Care Provider Active Dr. Smooth Espino MD Attending Provid er, Referring Provider, Other Provider Active Core Composer Feeder Relationship Specialty Start Date End Date Alo Avina MD [address] [place] [address] PCP - General Family Medicine 05/17/21 Core Composer Feeder Relationship Specialty Start Date End Date Alo Avina MD [address] [place] [address] PCP - General Family Medicine 05/17/21 Team Status: Active Member Role Status Dates Dr. Jim Squires MD Attending Provider, Referring Provi gustavo Active Dr. Alo Avina MD Primary Care Provider Active Team Status: Inactive Member Role Status Dates Dr. Alo Avina MD Primary Care Provider, Attendi ng Provider Active Alo RIVERA MD Referring Provider Active Core Composer Feeder Relationship Specialty Start Date End Date Alo Avina MD [address] [place] [address] PCP - General Family Medicine 05/17/21 Core Composer Feeder Relationship Specialty Start Date End Date Alo Avina MD [address] [facility] [place] [address] PCP - General Family Medicine 05/17/21 Core Composer Feeder Relationship Specialty Start Date End Date Alo Avina MD [address] [facility] [place] [address] PCP - General Family Medicine 05/17/21 Core Composer Feeder Relationship Specialty Start Date End Date Alo Avina MD [address] [place] [address] PCP - General Family Medicine 05/17/21 Team Status: Inactive Member Role Status Dates Dr. Alo Avina MD Primary Care Provider, Referri ng Provider Active Avery Perez PA, PA Attending Provider Active Team Status: Active Member Role Status Dates Dr. Alo Avina MD Primary Care Provider Active Dr. Oscar Rodarte MD Emergency Provider Active Dr. Ryan Rahman MD Admit Provider, Attending Provider Active Dr. Lane Rojas DPM Other Provider Active Team Status: Active Member Role Status Dates Dr. Alo Avina MD Primary Care Provider Active Dr. Oscar Rodarte MD Emergency Provider Active Dr. Ryan Rahman MD Admit Provi gustavo, Attending Provider, Other Provider Active Dr. Lane Rojas DPM Other Provider Active Team Status: Active Member Role Status Dates Dr. Alo Avina MD Primary Care Provider Active Dr. Oscar Rodarte MD Emergency Provider Active Dr. Ryan Rahman MD Admit Provi gustavo, Attending Provider, Other Provider Active Dr. Lane Rojas DPM Other Provider Active Dr. Smooth Jordan MD Other Provider Active Team Status: Active Member Role Status Dates Dr. Alo Avina MD Primary Care Provider Active Dr. Oscar Rodarte MD Emergency Provider Active Dr. Ryan Rahman MD Admit Provider, Other Pro vider Active Dr. Lane Rojas DPM Other Provider Active Dr. Smooth Jordan MD Other Provider Active Dr. Lindsay Meza MD Attending Provider, Other Provid er Active Team Status: Active Member Role Status Dates Dr. Alo Avina MD Primary Care Provider Active Dr. Oscar Rodarte MD Emergency Provider Active Dr. Ryan Rahman MD Admit Provider, Other Pro vider Active Dr. Lane Rojas DPM Other Provider Active Dr. Smooth Jordan MD Other Provider Active Dr. Lindsay Meza MD Other Provider Active Dr. Kenya Scott MD Attending Provider Active Team Status: Inactive Member Role Status Dates Dr. Alo Avina MD Primary Care Provider Active Dr. Oscar Rodarte MD Emergency Provider Active Dr. Ryan Rahman MD Admit Provider, Other Pro vider Active Dr. Lane Rojas DPM Other Provider Active Dr. Smooth Jordan MD Other Provider Active Dr. Lindsay Meza MD Attending Provider Active Core Composer Feeder Relationship Specialty Start Date End Date Alo Avina MD [address] [place] [address] PCP - General Family Medicine 05/17/21 Core Composer Feeder Relationship Specialty Start Date End Date Alo Avina MD [address] [place] [address] PCP - [facility] Medicine 05/17/21 Core Composer Feeder Relationship Specialty Start Date End Date Alo Avina MD [address] [place] [address] PCP - [facility] Medicine 05/17/21 Core Composer Feeder Relationship Specialty Start Date End Date Alo Avina MD [address] [place] [address] PCP - [facility] Medicine 05/17/21 Core Composer Feeder Relationship Specialty Start Date End Date Alo Avina MD [address] [place] [address] PCP - General Family Medicine 05/17/21 Team Status: Active Member Role Status Dates Dr. Alo Avina MD Primary Care Provider Active Dr. Oscar Rodarte MD Emergency Provider Active Dr. Ryan Rahman MD Admit Provider, Other Pro vider Active Dr. Lane Rojas DPM Other Provider Active Dr. Smooth Jordan MD Other Provider Active Dr. Lindsay Meza MD Attending Provider, Other Provid er Active Dr. Kenya Scott MD Active Team Status: Active Member Role Status Dates Dr. Alo Avina MD Primary Care Provider Active Dr. Mata Smalls MD Attending Provider Active Dr. Ryan Rahman MD Referring Provider Active Core Composer Feeder Relationship Specialty Start Date End Date Alo Avina MD [address] [place] [address] PCP - General Family Medicine 05/17/21 Core Composer Feeder Relationship Specialty Start Date End Date Aol Avina MD [address] [place] [address] PCP - General Family Medicine 05/17/21 Core Composer Feeder Relationship Specialty Start Date End Date Alo Avina MD [address] [place] [address] PCP - General Family Medicine 05/17/21 Team Status: Inactive Member Role Status Dates Dr. Jim Squires MD Attending Provider, [facility] Alo Avina MD Primary Care Provider Active Dr. Judd Dey MD Other Provider Active Core Composer Feeder Relationship Specialty Start Date End Date Alo Avina MD [address] [place] [address] PCP - General Family Medicine 05/17/21 Team Status: Inactive Member Role Status Dates Dr. Alo Avina MD Primary Care Provider Active Dr. Judd Dey MD Attending Provider, Re [facility] Active Core Composer Feeder Relationship Specialty Start Date End Date Alo Avina MD [address] [place] [address] PCP - General Family Medicine 05/17/21 Core Composer Feeder Relationship Specialty Start Date End Date Alo Avina MD [address] [place] [address] PCP - General Family Medicine 05/17/21 Core Composer Feeder Relationship Specialty Start Date End Date Alo Aivna MD [address] [place] [address] PCP - General Family Medicine 05/17/21 Core Composer Feeder Relationship Specialty Start Date End Date Alo Avina MD [address] [place] [address] PCP - General Family Medicine 05/19/21 Abbie Rodriguez DO [address] [phone] Nephrology 11/20/19 Core Composer Feeder Relationship Specialty Start Date End Date Alo Avina MD [address] [place] [address] PCP - General Family Medicine 05/17/21 Core Composer Feeder Relationship Specialty Start Date End Date Alo Avina MD [address] [place] [address] PCP - General Family Medicine 05/17/21 Core Composer Feeder Relationship Specialty Start Date End Date Alo Avina MD [address] [place] [address] PCP - General Family Medicine 05/17/21 Core Composer Feeder Relationship Specialty Start Date End Date Alo Avina MD [address] [place] [address] PCP - General Family Medicine 05/17/21 Core Composer Feeder Relationship Specialty Start Date End Date Alo Avina MD [address] [place] [address] PCP - General Family Medicine 05/17/21 Core Composer Feeder Relationship Specialty Start Date End Date Alo Avina MD [address] [place] [address] PCP - General Family Medicine 05/17/21 Judd Dey MD [address] [phone] Internal Medicine 04/29/24 Core Composer Feeder Relationship Specialty Start Date End Date Alo Avina MD [address] [place], [place] 2139[phone] PCP - General Family Medicine 05/17/21 Judd Dey MD [address] [place] [address] [phone] Internal Medicine 04/29/24 Core Composer Feeder Relationship Specialty Start Date End Date Alo Avina MD [address] [place] [address] PCP - General Family Medicine 05/17/21 Judd Dey MD [address] [phone] Internal Medicine 04/29/24 Core Composer Feeder Relationship Specialty Start Date End Date Alo Avina MD [address] [place] [address] PCP - General Family Medicine 05/17/21 Judd Dey MD [address] [phone] Internal Medicine 04/29/24 Keri Day APRN.IMPREGNATOR [address] [place], [place] 914741 [facility] 06/13/24 Crystal Nation PA-C [address] [place] [address] [facility] 06/13/24 Core Composer Feeder Relationship Specialty Start Date End Date Alo Avina MD [address] [place] [address] PCP - General Family Medicine 05/17/21 Judd Dey MD [facility] [address] [phone] Internal Medicine 04/29/24 Keri Day APRN.IMPREGNATOR [address] [place] [address] 451011 [facility] 06/13/24 Crystal Nation PA-C [address] [place], [place] 726521 [facility] 06/13/24 Core Composer Feeder Relationship Specialty Start Date End Date Alo Avina MD [address] [place] [address] PCP - General Family Medicine 05/17/21 Judd Dey MD [facility] [address] [phone] Internal Medicine 04/29/24 Keri Day APRN.IMPREGNATOR [address] [place] [address] [facility] [facility] 06/13/24 Crystal Nation PA-C [address] [place] [address] [facility] [facility] 06/13/24 Core Composer Feeder Relationship Specialty Start Date End Date Alo Avina MD [facility] [place] [address] PCP - General Family Medicine 05/17/21 Judd Dey MD [facility] [address] [phone] Internal Medicine 04/29/24 Keri Day, ACCREDITED FARM MANAGER.IMPREGNATOR [address] [place] [address] [facility] [facility] 06/13/24 Crystal Nation PA-C [address] [place] [address] Crane Ladle Person [facility] 06/13/24 Core Composer Feeder Relationship Specialty Start Date End Date Alo Avina MD [address] [place] [address] PCP - General Family Medicine 05/17/21 Judd Dey MD [facility] [address] [phone] Internal Medicine 04/29/24 Keri Day, ACCREDITED FARM MANAGER.IMPREGNATOR [address] [place] [address] [place] [address] [facility] 06/13/24 Crystal Nation PA-C [address] [place] [address] [facility] [employer] Family [facility] 06/13/24 Core Composer Feeder Relationship Specialty Start Date End Date Alo Avina MD [address] [place] [address] PCP - General Family Medicine 05/17/21 Judd Dey MD [facility] [address] [phone] Internal Medicine 04/29/24 Keri Day APRN.IMPREGNATOR [address] [place] [address] [facility] [facility] 06/13/24 Crystal Nation PA-C [address] [place] [address] [facility] Family [facility] 06/13/24 Core Composer Feeder Relationship Specialty Start Date End Date Alo Avina MD [address] [place] [address] PCP - General Family Medicine 05/17/21 Judd Dey MD [facility] [address] [phone] Internal Medicine 04/29/24 Keri Day APRN.IMPREGNATOR [address] [place] [address] [facility] 06/13/24 Crystal Nation PA-C [address] [place], [place] 211371 [facility] 06/13/24 Core Composer Feeder Relationship Specialty Start Date End Date Alo Avina MD [address] [place], [place] [id number] PCP - General Family Medicine 05/17/21 Judd Dey MD [facility] [place] [facility] [address] [phone] Internal Medicine 04/29/24 Keri Day APRN.[facility] [address] [place] [address] 956751 [facility] 06/13/24 Crystal Nation PA-C [address] [place], [place] [id number] [facility] 06/13/24 Team Status: Active Member Role Status Dates Dr. Alo Avina MD Primary Care Provider Active Team Status: Inactive Member Role Status Dates Dr. Alo Avina MD Primary Care Provider Active Start: June 24, 2024 End: June 24, 2024 Dr. Alo Aivna MD Attending Provider Active Start: June 24, 2024 End: June 24, 2024 Dr. Alo Avina MD Referring Provider Active Start: June 24, 2024 End: June 24, 2024 Team Status: Inactive Member Role Status Dates DESIREE COLLAZO Attending Provider Active Start: J anuary 2024 End: July 13, 2024 DESIREE COLLAZO Referring Provider Active Start: J anuary 2024 End: July 13, 2024 Dr. Alo Avina MD Primary Care Provider Active Start: July 13, 2024 End: July 13, 2024 Team Status: Inactive Member Role Status Dates Dr. Alo Avina MD Primary Care Provider Active Start: October 19, 2024 End: October 19, 2024 ANATOLIY RAMIREZ Attending Provider Active Start: A pri 2024 End: October 19, 2024 ANATOLIY RAMIREZ Referring Provider Active Start: A pril 2024 End: October 19, 2024 Core Composer Feeder Relationship Specialty Start Date End Date Alo Avina MD [address] [place] [address] PCP - General Family Medicine 05/17/21 Judd Dey MD [facility] [address] [phone] Internal Medicine 04/29/24 Keri Day, DEMAR.IMPREGNATOR [address] [place] [address] [facility] 06/13/24 Crystal Nation PA-C [address] [place] [address] [facility] 06/13/24 Core Composer Feeder Relationship Specialty Start Date End Date Alo Avina MD [facility] [place] [address] PCP - General Family Medicine 05/17/21 Judd Dey MD [address] [phone] Internal Medicine 04/29/24 Keri Day, ACCREDITED FARM MANAGER.IMPREGNATOR [address] [place] [address] [facility] 06/13/24 Crystal Nation PA-C [address] [place] [address] [facility] 06/13/24 Core Composer Feeder Relationship Specialty Start Date End Date Alo Avina MD [address] [place] [address] PCP - General Family Medicine 05/17/21 Judd Dey MD [facility] [address] [phone] Internal Medicine 04/29/24 Keri Day, DEMAR.IMPREGNATOR [address] [place] [address] [facility] 12/07/24 Crystal Nation PA-C [address] [place] [address] [facility] [employer] Family [facility] 12/07/24 Core Composer Feeder Relationship Specialty [place] [address] [place] [address] PCP - General Family Medicine 05/17/21 Judd Dey MD [facility] [address] [phone] Internal Medicine 04/29/24 Keri Day, DEMAR.IMPREGNATOR [address] [place] [address] [facility] 12/07/24 Crystal Nation PA-C [address] [place] [address] [facility] [employer] [facility] Family 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 Specialty Start Date End Date Alo Avina MD [address] [place] [address] PCP - General Family Medicine 05/17/21 Judd Dey MD [address] [phone] Internal Medicine 04/29/24 Keri Day APRN.IMPREGNATOR [address] [place] [address] [facility] 12/07/24 Crystal Nation PA-C [address] [place] [address] [facility] 12/07/24 Goals (unrecognized section and content) Goals may be documented in a n alternate sectionGoals may be documented in an alternate sectionGoals may be documented in an alternate sectionGoals may be documented in an alternate sectionGoals may be documented in an alternate sectionGoals may be documented in an alternate sectionGoals may be documented in an alternate sectionGoals may be documented in an alternate sectionGoals may be documented in an alternate sectionGoals may be documented in an alternate sectionGoals may be documented in an alternate section FOR RECORDS PERTAINING TO PATIENTS WHO ARE [...] BE BASED ON THE PRIMARY CLINICAL RECORDS. [facility] [employer] [facility]. provides no warranty or guarantee of the accuracy or completeness of information in this document.
[2025-06-07 06:28] LABS: Hematocrit 35.1 % (40-54); Hemoglobin 11.1 g/dL (13.0-16.5); Immature Granulocytes Count 0.030 X10^3/uL (0.0-0.0); Mean Corp Hgb Conc 31.6 g/dL (32-36); Mean Corpuscular Volume 87.1 fL (80-94); Mean Platelet Vol. 10.0 fl (6.2-12.0); NRBC Flagged by Analyzer 0 % (0-5); Platelet Count 211 K/mm3 (150-450); RBC Distribution Width CV 12.8 % (11.6-14.6); RBC Distribution Width SD 40.5 fl (35.1-43.9); Red Blood Count 4.03 M/mm3 (4.6-6.2); White Blood Count 6.6 K/mm3 (4.4-11.0)
[2025-06-07 06:43] LABS: Creatinine, Urine (random) 104.00 mg/dL (39.00-259.00); Protein, Urine (Random) 41.0 mg/dL (0.0-12.0); Protein:Creat Ratio 394 mg/g CRE (0-200)
[2025-06-07 06:48] LABS: AST(SGOT) 19 U/L (<=37); Alanine Aminotransfer ALT/SGPT 11 U/L (<=46); Albumin, Serum 4.1 g/dL (3.4-4.8); Alkaline Phosphatase 50 U/L (40-129); Anion Gap 11 (5-15); BUN 31 mg/dL (4-19); BUN/Creat Ratio 19.4 RATIO (10-20); Calcium,Total 9.2 mg/dL (7.6-11.0); Carbon Dioxide 22.0 mmol/L (21.0-32.0); Chloride 109 mmol/L (98-108); Cholesterol 167 mg/dL (<=200); Globulin 2.3 g/dL (2.2-4.2); Glucose 122 mg/dL (70-99); Low Density Lipoprotein Calc. 99 mg/dL; Potassium 4.3 mmol/L (3.3-5.1); Triglycerides 177 mg/dL; Very Low Density Lipoprotein 35 mg/dL (5-40); cholesterol:hdl ratio screen 4.55
[2025-06-07 06:50] LABS: PTHIN 101 pg/mL (11-61)
[2025-06-07 07:05] LABS: Uric Acid 7.7 mg/dL (3.5-7.2); Vitamin D,25 Hydroxy 28.9 ng/mL (30-100)
[2025-06-07 14:14] LABS: Creatinine, Urine (random) 104.00 mg/dL (39.00-259.00); Microalbumin,Random Urine 202.0 mg/L (<20 mg/L)
== END 2025-06-07 23:59 | disposition home or self-care (01) ==
PROVIDERS: Student in an Organized Health Care Education/Training Program; PCP Family Medicine; Referring Provider Nurse Practitioner; Visit Provider Nurse Practitioner
DX: E11.22 Type 2 diabetes mellitus with diabetic chronic kidney disease (principal); Z79.4 Long term (current) use of insulin; N18.31 Chronic kidney disease, stage 3a; Z94.0 Kidney transplant status
CPT/HCPCS: 36415; 80053; 80061; 80197; 82043; 82306; 82570; 83036; 83970; 84156; 84550; 85025

== ENCOUNTER → 2025-06-24 | Outpatient (CLI) | payer MEDICARE, SELFPAY ==
--- OUTSIDE RECORDS SUMMARY | 2025-06-24 05:57 | XMS RPT_ITS | CCD ---
Author Organization [facility] Care Team Providers Care Mattress Filling Machine Tender Name Role Phone Unavailable Primary Care Provider UnavailClair Aparicio Unavailable Unavailable Roman Espino Unavailable Unavailable Abbie Rodriguez I Unavailable Unavailable Da, Lew Q Unavailable Unavailable Chasity Kelly Unavailable Unavailable Aaron Wesley Unavailable Unavailable Flor Back Unavailable Unavailable Jose Smith Unavailable Unavailable Alo Avina MD Primary Care Provider Abbie Rordiguez DO Unavailable Alo Avina MD Primary Care Provider Alo Avina MD Primary Care Provider Alo Avina MD Primary Care Provider Abbie Rodriguez DO Unavailable Alo Avina MD Primary Care Provider Alo Avina MD Primary Care Provider Dr. Alo Avina Primary Care Provider Dr. Smooth Espino Attending Provider Dr. Smooth Espino Referring Provider Dr. Smooth Espino Other Provider Dr. Alo vAina Referring Provider DAMIR Dimas Attending Provider Dr. Oscar Rodarte Emergency Provider [phone] Dr. Ryan Rahman Admit Provider Dr. Ryan Rahman Attending Provider Dr. Ryan Rahman Other Provider Dr. Lane Rojas Other Provider Dr. Smooth Jordan Other Provider Dr. Lindsay Meza Attending Provider Dr. Lindsay Meza Other Provider Dr. Kenya Scott Attending Provider Dr. Alo Avina Primary Care Provider Dr. Mata Smalls Attending Provider Dr. Ryan Rahman Referring Provider Alo Avina MD Primary Care Provider Alo Avina MD Primary Care Provider Abbie Rodriguez DO Unavailable Rupesh LYNCH, Alo Wetzel Primary Care Provider [phone] Yissel LYNCH, Bhavnish Unavailable Shay RECOVERY ROOM RN.FILM PROCESSOR, Keri Unavailable Crystal Nation PA-C Unavailable Dr. Alo Avina MD Primary Care Provider Dr. Alo Avina MD Attending Provider Dr. Alo Avina MD Referring Provider VALE RAMÍREZ Attending Provider VALE RAMÍREZ Referring Provider CLARIBEL COPE Attending Provider CILUIE CLARIBEL Referring Provider JIM SQUIRES Attending Unavailable SELF, SELF Referring Unavailable ALO AVINA Primary Care Unavailable Shay RECOVERY ROOM RN.FILM PROCESSOR, Keri Unavailable Rios PRAJAPATI Crystal Unavailable CHRISTIAN [...] Claribel Cope Attending Unavailable Alo Avina Primary [facility] Unavailable ALO AVINA Primary Care Unavailable ALO AVINA Attending Unavailable ALO AVINA Primary Care Unavailable CLARIBEL COPE Attending Unavailable Allergies Allergy Classification Reported Allergen(s) Allergy Type Date of Onset Reaction(s) Facility (20 sources) metFORMIN; Translations: [METFORMIN] Drug Allergy 01-02-20 08 Itching, Rash [facility] (6 sources) Penicillins Propensity to adverse reactions to drug 10-04-19 16 [facility] (4 sources) Sulfamethoxazole / Trimethoprim Drug Allergy 10-04-19 16 [facility] (6 sources) Sulfonamides (Antibiotic) Propensity to adverse reactions to drug 10-04-19 16 Itching [facility] (20 sources) amLODIPine; Translations: [AMLODIPINE BESYLATE] Drug Allergy 08-31-19 15 Swelling [facility] Work Phone: (20 sources) atorvastatin; Translations: [ATORVASTATIN CALCIUM] Drug Allergy 10-10-19 12 Other: See Comments [facility] Work Phone: (20 sources) Sulfamethoxazole; Translations: [SULFAMETHOXAZOLE] Drug Allergy 02-14-20 13 Hives [facility] Work Phone: (18 sources) Sulfonamides (Antibiotic); Translations: [Sulfa (Sulfonamide Antibiotics)] Allergy to substance 09-03-19 20 Swelling [facility] (1 source) Penicillins Propensity to adverse reactions to drug 10-04-19 16 [facility] (1 source) Sulfonamides (Antibiotic) Propensity to adverse reactions to drug 10-04-19 16 Itching [facility] (1 source) metFORMIN Drug Allergy 01-04-20 23 [facility] Repository Medications Current Medications Medication Drug Class(es) [...] Start: 11-02-2017 take 1 capsule by mo [facility] once daily B Complex With C 20-Folic Acid Active 1 CAP PO DAILY November 01, 2017 11:00pm Start: 11-02-2017 take 1 capsule by mo [facility] once daily B Complex With C 20-Folic [...] Provitamin D2 Compound Start: 09-04-19 17 take 47881 [IU] by mouth every month Ergocalciferol (Vitamin D2) Active 68509 UNIT PO EVERY MONTH August 19, 2017 1:00am Start: 09-04-2016 Vitamin D (Erg ocalciferol) 79476 UNIT Oral Capsule 1 csapssule every 3 [...] Start: 09-08-2021 take 2 tablets by mo [facility] every twelve hours mycophenolate sodium (MYFORTIC) 360 [...] oral tablet (20 sources) Dihydropyridine Calcium Channel Rueben Start: End: take 1 tablet by mouth [...] 2022 2:16pm Blood-Glucose Meter,Continuo us (DEXCOM G7 [employer]) misc (12 sources) Start: 12-26-2022 End: 03-13-2023 Blood-Glucose Meter,Continuo us (DEXCOM G7 [employer]) misc Dispense one corduroy cutting supervisor kit. E11.9 USE FOR CONTINUOUS GLUCOSE MONITORING. Multiple insulin injections. 1 Each 0 12/26/2022 03/13/2023 Discontinued Start: 12-26-2022 Blood-Glucose Meter,Continuous (DEXCOM G7 [employer]) misc Dispense one corduroy cutting supervisor kit. E11.9 USE FOR CONTINUOUS GLUCOSE MONITORING. [...] GLUCOSE MONITORING. MULTIPLE INSULIN INJECTIONS E11.9 calcitriol 0.21292 mg oral capsule (19 sources) Vitamin D3 [...] source) Taking high risk medication; Translations: [Other mcfp (current) drug therapy] 12-18-2023 Episodic Other and [...] Onset: 06-23-2024 Episodic Other aftercare (1 source) intermediate frame tender (current) use of insulin; Translations: [Diabetes mellitus [...] Test Name Value Interpretation Reference Range Facility [facility] 02-19-2025 CNPN Telephone (ENDWST) -- RODRI GALE ([id number]) 1955 M Date Time Provider Department 02/19/25 CLARIBEL COPE During your visit today, we recorded the following information about you: Candelaria Burrell LPN 02/19/2025 11:57 AM Signed [facility] called to see if office had received forms to approve diabetic shoes. Jazlyn states that she has sent 3 time. If you have any question please call Jazlyn at [phone] select option 3. ARGENIS Tompkins Jennifer, MA [...] Assessed Prescriptions as of 02/19/2025 - Insulin [place], Disposable, (BD ULTRAFINE III MINI PEN) 31 [...] Encounter Status:Closed by LISANDRA VELÁSQUEZ on 02/19/25 [facility] 01-29-2025 [facility] -- BALJINDERRODRI Garza ([id number]) 1955 M Date Time Provider Department 01/29/25 ALO AVINA During your visit today, we recorded the following information about you: Rj Menard LPN 01/29/2025 6:50 AM Signed Received fax from [facility] needing forms completed for Medicare Compliance fro pt's Diabetic shoes/inserts. Forms on PCP's desk. Please fax back to [phone]. ARGENIS Cody Jeffrey A, MD 02/02/2025 9:53 [...] [913] Prescriptions as of 02/02/2025 - Insulin [place], Disposable, (BD ULTRAFINE III MINI PEN) 31 [...] Status:Closed by AURORA JULES on 02/02/25 Normal [facility] Microalb:Creat Ratio,Random URon 12-24-2024 MALB:CREAT 488.2 mg/g CRE Normal [facility] Comment on above: Result Comment: AMENDED REPORT 12/24/24 1223 MALB:CREAT previously reported as: 4881.8 mg/g CRE Performed By: #### L 500.2500, L501.0900 #### [facility] [place], [address] Tacrolimus (Prograf)on 11-25 Tacrolimus (Bld) [Mass/Vol] 4.8 ng/mL Low 5.0-20.0 [facility] Comment on above: Order Comment: Test( s) 323618-[id number] (FK506), Blood was developed and its performance characteristics determined by [employer]. It has not been cleared or approved [...] ng/mL Performed by LC-MS/MS technology. Performed at: [address] [id number] Lift Team Technician: Martínez Orellana MD, Phone: [phone] Performed By: #### L 501.0900, L501.1400, L3380.1000, L500.2500, L509.1000, L506.1001, L100.0100 #### [facility] [address] [place], [place], [id number] Basic Metabolic Profile (BMP )on 11-23-2024 BUN/CRE 17.0 RATIO Normal 10-20 [facility] Comment on above: Performed By: #### L 501.0900, L501.1400, L3380.1000, L500.2500, L509.1000, L506.1001, L100.0100 #### [facility] [address] [place], [place], [id number] Calcium [Mass/Vol] 8.8 mg/dL Normal 7.6-11.0 [facility] Comment on above: Performed By: #### L 501.0900, L501.1400, L3380.1000, L500.2500, L509.1000, L506.1001, L100.0100 #### [facility] [address] [place], [address] Chloride [Moles/Vol] 110 mmol/L High 98-108 [facility] Comment on above: Performed By: #### L 501.0900, L501.1400, L3380.1000, L500.2500, L509.1000, L506.1001, L100.0100 #### [facility] [address] [place], [address] CO2 [Moles/Vol] 19.5 mmol/L Low 21.0-32.0 [facility] Comment on above: Performed By: #### L 501.0900, L501.1400, L3380.1000, L500.2500, L509.1000, L506.1001, L100.0100 #### [facility] [address] [place], [address] GAP 12 Normal 5-15 [facility] Comment on above: Performed By: #### L 501.0900, L501.1400, L3380.1000, L500.2500, L509.1000, L506.1001, L100.0100 #### [facility] [address] [place], [address] GFR/1.73 sq M.predicted among non-blacks MDRD (S/P/Bld) [Vol rate/Area] 61 mL/min/{1.73_m2} Normal >60 [facility] Comment on above: Result Comment: mL/m in/1.73m2 CKD-EPI Creatinine Equation (2020) Performed By: #### L 501.0900, L501.1400, L3380.1000, L500.2500, L509.1000, L506.1001, L100.0100 #### [facility] [address] [place], [address] Potassium [Moles/Vol] 3.9 mmol/L Normal 3.3-5.1 [facility] Comment on above: Performed By: #### L 501.0900, L501.1400, L3380.1000, L500.2500, L509.1000, L506.1001, L100.0100 #### [facility] [address], [address] Sodium [Moles/Vol] 141 mmol/L Normal 133-145 [facility] Comment on above: Performed By: #### L 501.0900, L501.1400, L3380.1000, L500.2500, L509.1000, L506.1001, L100.0100 #### [facility] [address] [place], [address] Creatinine [Mass/Vol] 1.27 mg/dL High 0.70-1.20 [facility] Comment on above: Performed By: #### L 501.0900, L501.1400, L3380.1000, L500.2500, L509.1000, L506.1001, L100.0100 #### [facility] [address] [place], [address] Glucose [Mass/Vol] 113 mg/dL High 70-99 [facility] Comment on above: Performed By: #### L 501.0900, L501.1400, L3380.1000, L500.2500, L509.1000, L506.1001, L100.0100 #### [facility] [address] [place], [address] Urea nitrogen [Mass/Vol] 22 mg/dL High 4-19 [facility] Comment on above: Performed By: #### L 501.0900, L501.1400, L3380.1000, L500.2500, L509.1000, L506.1001, L100.0100 #### [facility] [address] [place], [address] CBC W/Diff, Automatedon 05-1 Absolute Lymph 0.91 X10 3/uL Normal 0.83-4.51 [facility] Comment on above: Performed By: #### L 501.0900, L501.1400, L3380.1000, L500.2500, L509.1000, L506.1001, L100.0100 #### [facility] [address] [place], [address] Absolute Neut 4.4 X10 3/uL Normal 2.0-7.7 [facility] Comment on above: Performed By: #### L 501.0900, L501.1400, L3380.1000, L500.2500, L509.1000, L506.1001, L100.0100 #### [facility] [address] [place], [address] Basophils/100 WBC (Bld) 0.5 % Normal 0-1 [facility] Comment on above: Performed By: #### L 501.0900, L501.1400, L3380.1000, L500.2500, L509.1000, L506.1001, L100.0100 #### [facility] [address] [place], [address] Eosinophils/100 WBC (Bld) 1.3 % Normal 0-5 [facility] Comment on above: Performed By: #### L 501.0900, L501.1400, L3380.1000, L500.2500, L509.1000, L506.1001, L100.0100 #### [facility] [address] [place], [address] Erythrocyte distribution width (RBC) [Ratio] 13.1 % Normal 11.6-14.6 [facility] Comment on above: Performed By: #### L 501.0900, L501.1400, L3380.1000, L500.2500, L509.1000, L506.1001, L100.0100 #### [facility] [address] [place], [address] Hematocrit (Bld) [Volume fraction] 34.1 % Low 40-54 [facility] Comment on above: Performed By: #### L 501.0900, L501.1400, L3380.1000, L500.2500, L509.1000, L506.1001, L100.0100 #### [facility] [address] [place], [address] Hemoglobin (Bld) [Mass/Vol] 11.1 g/dL Low 13.0-16.5 [facility] Comment on above: Performed By: #### L 501.0900, L501.1400, L3380.1000, L500.2500, L509.1000, L506.1001, L100.0100 #### [facility] [address] [place], [address] IG% 0.300 Normal 0.0-0.9 [facility] Comment on above: Result Comment: IG% - Immature Granulocytes (promyelocytes, myelocytes and metamyelocytes) > 1% indicates that a LEFT SHIFT is Present. Performed By: #### L 501.0900, L501.1400, L3380.1000, L500.2500, L509.1000, L506.1001, L100.0100 #### [facility] [address] [place], [address] Lymphocytes/100 WBC (Bld) 15.0 % Low 19-41 [facility] Comment on above: Performed By: #### L 501.0900, L501.1400, L3380.1000, L500.2500, L509.1000, L506.1001, L100.0100 #### [facility] [address] [place], [address] MCH (RBC) [Entitic mass] 28.0 pg Normal 27.0-32.0 [facility] Comment on above: Performed By: #### L 501.0900, L501.1400, L3380.1000, L500.2500, L509.1000, L506.1001, L100.0100 #### [facility] [address] [place], [address] MCHC (RBC) [Mass/Vol] 32.6 g/dL Normal 32-36 [facility] Comment on above: Performed By: #### L 501.0900, L501.1400, L3380.1000, L500.2500, L509.1000, L506.1001, L100.0100 #### [facility] [address] [place], [address] MCV (RBC) [Entitic vol] 85.9 fL Normal 80-94 [facility] Comment on above: Performed By: #### L 501.0900, L501.1400, L3380.1000, L500.2500, L509.1000, L506.1001, L100.0100 #### [facility] [address] [place], [address] Monocytes/100 WBC (Bld) 9.7 % Normal 0-10 [facility] Comment on above: Performed By: #### L 501.0900, L501.1400, L3380.1000, L500.2500, L509.1000, L506.1001, L100.0100 #### [facility] [address] [place], [address] Neutrophils/100 WBC (Bld) 73.2 % High 47-70 [facility] Comment on above: Performed By: #### L 501.0900, L501.1400, L3380.1000, L500.2500, L509.1000, L506.1001, L100.0100 #### [facility] [address] [place], [address] Nucleated RBC (Bld) [#/Vol] 0 10*3/uL Normal 0-5 [facility] Comment on above: Performed By: #### L 501.0900, L501.1400, L3380.1000, L500.2500, L509.1000, L506.1001, L100.0100 #### [facility] [address] [place], [address] Platelet mean volume (Bld) [Entitic vol] 9.8 fL Normal 6.2-12.0 [facility] Comment on above: Performed By: #### L 501.0900, L501.1400, L3380.1000, L500.2500, L509.1000, L506.1001, L100.0100 #### [facility] [address] [place], [address] Platelets (Bld) [#/Vol] 217 10*3/uL Normal 150-450 [facility] Comment on above: Performed By: #### L 501.0900, L501.1400, L3380.1000, L500.2500, L509.1000, L506.1001, L100.0100 #### [facility] [address] [place], [address] RBC (Bld) [#/Vol] 3.97 10*6/uL Low 4.6-6.2 [facility] Comment on above: Performed By: #### L 501.0900, L501.1400, L3380.1000, L500.2500, L509.1000, L506.1001, L100.0100 #### [facility] [address] [place], [address] RDW SD 40.8 fl Normal 35.1-43.9 [facility] Comment on above: Performed By: #### L 501.0900, L501.1400, L3380.1000, L500.2500, L509.1000, L506.1001, L100.0100 #### [facility] [address] [place], [address] WBC (Bld) [#/Vol] 6.1 10*3/uL Normal 4.4-11.0 [facility] Comment on above: Performed By: #### L 501.0900, L501.1400, L3380.1000, L500.2500, L509.1000, L506.1001, L100.0100 #### [facility] [address] [place], [address] PTHINon 11-23-2024 PTH 94 pg/mL High 11-61 [facility] Comment on above: Performed By: #### L 501.0900, L501.1400, L3380.1000, L500.2500, L509.1000, L506.1001, L100.0100 #### [facility] [address] [place], [address] Protein+Creatinine Ratio,Uri neon 11-23-2024 PROT:CRE RATIO 1327 mg/g CRE High 0-200 [facility] Comment on above: Performed By: #### L 501.0900, L501.1400, L3380.1000, L500.2500, L509.1000, L506.1001, L100.0100 #### [facility] [address] [place], [address] Protein (U) [Mass/Vol] 134.0 mg/dL High 0.0-12.0 [facility] Comment on above: Performed By: #### L 501.0900, L501.1400, L3380.1000, L500.2500, L509.1000, L506.1001, L100.0100 #### [facility] [address] [place], [address] UR CREAT 101.00 mg/dL Normal 39.00-259. 00 [facility] Comment on above: Performed By: #### L 501.0900, L501.1400, L3380.1000, L500.2500, L509.1000, L506.1001, L100.0100 #### [facility] [address] [place], [address] Uric Acidon 11-23-2024 URIC 7.4 mg/dL High 3.5-7.2 [facility] Comment on above: Result Comment: The drugs N-Acetylcysteine and Metamizole may falsely depress this assay. Performed By: #### L 501.0900, L501.1400, L3380.1000, L500.2500, L509.1000, L506.1001, L100.0100 #### [facility] [address] [place], [place], [address] Vitamin D,25 Hydroxyon 11-23 Vitamin D 25-OH 27.0 ng/mL Low 30-100 [facility] Comment on above: Result Comment: Renata min D Status Deficiency: <20 ng/mL (50nmol/L) Insufficiency: 20-30 ng/mL (50-75 nmol/L) Sufficiency: 30-100 ng/mL (75-250 nmol/L) Toxicity: >100 ng/mL (>250 nmol/L) Performed By: #### L 501.0900, L501.1400, L3380.1000, L500.2500, L509.1000, L506.1001, L100.0100 #### [facility] [address] [place], [place], [address] CNOVon 10-28-2024 [facility] Office Visit (ENWSTR ) -- RODRI GALE ([id number]) 1955 M Date Time Provider Department 10/28/24 8:45 AM CLARIBEL COPE ENWSTR During your visit today, we recorded the following information about you: Pulse Respiration Blood pressure Weight 55/minute 20/minute 148/68 86.7 kg Height 1.791 m Claribel Cope, RECOVERY ROOM RN.FILM PROCESSOR 10/28/2024 8:57 AM Signed OFFICE VISIT PROGRESS NOTE CC Rodri Orozcos is a 69 year old who presents today for blood sugar review, insulin dose review, adjust. HPI Diagnosed with diabetes mellitus type II, ~ 1997 Hx of dialysis ~ [address] Patient sts kidney issues are not secondary to his diabetes [place] it was related to medication overdose (BP [...] Diabetes mellitus type 2 with neurological manifestations ([facility]) 02/13/2013 Diabetic eye exam ([facility]) 10/09/2021 Last done 10/09/2021 [facility] Diabetic foot ([facility]) 06/23/2024 Sees Podiatry: Dr. 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 Normal [facility] Albumin DL <= 20 mg/L (U) [M ass/Vol]on 10-19-2024 Urine Random Microalbumin 475.0 mg/L NO RANGE EST. [facility] Anion gap in Serum or Plasma on 10-19-2024 Anion gap [Moles/Vol] 10 mmol/L - [facility] BUN/creatinine ratioon 10-19 Urea nitrogen/Creatinine [Mass ratio] 17.5 mg/mg 10- [facility] Bilirubin, totalon Bilirubin [Mass/Vol] 0.27 mg/dL 0.00-1.30 [facility] Calculated very low density lipoprotein (VLDL) cholesterol measurementon 10-19-2024 VLDL Cholesterol 26 mg/dL [facility] Carbon dioxide, total [Moles /volume] in Central venous bloodon 10-19-2024 CO2 [Moles/Vol] 21.5 mmol/L 21.0-32.0 [facility] Chloride assayon 10-19-2024 Chloride [Moles/Vol] 111 mmol/L High 98-108 [facility] Comprehensive Metabolic Prof ilon 10-19-2024 Albumin [Mass/Vol] 4.3 g/dL Normal 3.4-4.8 [facility] Comment on above: Performed By: #### L 500.2500, L501.0900 #### [facility] [address] [place], [address] Albumin/Globulin [Mass ratio] 1.9 {ratio} Normal 0.9-2.4 [facility] Comment on above: Performed By: #### L 500.2500, L501.0900 #### [facility] [address] [place], [address] ALK PHOS 48 U/L Normal 40-129 [facility] Comment on above: Performed By: #### L 500.2500, L501.0900 #### [facility] [address] [place], [address] ALT [Catalytic activity/Vol] 11 U/L Normal <=46 [facility] Comment on above: Performed By: #### L 500.2500, L501.0900 #### [facility] [address] [place], [address] AST [Catalytic activity/Vol] 19 U/L Normal <=37 [facility] Comment on above: Performed By: #### L 500.2500, L501.0900 #### [facility] [address] [place], [address] Bilirubin [Mass/Vol] 0.27 mg/dL Normal 0.00-1.30 [facility] Comment on above: Performed By: #### L 500.2500, L501.0900 #### [facility] [address] [place], [address] BUN/CRE 17.5 RATIO Normal 10-20 [facility] Comment on above: Performed By: #### L 500.2500, L501.0900 #### [facility] [address] [place], [address] Calcium [Mass/Vol] 9.4 mg/dL Normal 7.6-11.0 [facility] Comment on above: Performed By: #### L 500.2500, L501.0900 #### [facility] [address] [place], [address] Chloride [Moles/Vol] 111 mmol/L High 98-108 [facility] Comment on above: Performed By: #### L 500.2500, L501.0900 #### [facility] [address] [place], [address] CO2 [Moles/Vol] 21.5 mmol/L Normal 21.0-32.0 [facility] Comment on above: Performed By: #### L 500.2500, L501.0900 #### [facility] [address] [place], [address] Creatinine [Mass/Vol] 1.37 mg/dL High 0.70-1.20 [facility] Comment on above: Performed By: #### L 500.2500, L501.0900 #### [facility] [address] [place], [address] GAP 10 Normal 5-15 [facility] Comment on above: Performed By: #### L 500.2500, L501.0900 #### [facility] [address] [place], [address] GFR/1.73 sq M.predicted among non-blacks MDRD (S/P/Bld) [Vol rate/Area] 56 mL/min/{1.73_m2} Low >60 [facility] Comment on above: Result Comment: mL/m in/1.73m2 CKD-EPI Creatinine Equation (2020) Performed By: #### L 500.2500, L501.0900 #### [facility] [address] [place], [address] Globulin (S) [Mass/Vol] 2.3 g/dL Normal 2.2-4.2 [facility] Comment on above: Performed By: #### L 500.2500, L501.0900 #### [facility] [address] [place], [address] Glucose [Mass/Vol] 111 mg/dL High 70-99 [facility] Comment on above: Performed By: #### L 500.2500, L501.0900 #### [facility] [address] [place], [address] Potassium [Moles/Vol] 4.3 mmol/L Normal 3.3-5.1 [facility] Comment on above: Performed By: #### L 500.2500, L501.0900 #### [facility] [address] [place], [address] Sodium [Moles/Vol] 143 mmol/L Normal 133-145 [facility] Comment on above: Performed By: #### L 500.2500, L501.0900 #### [facility] [address], [address] T PROT 6.6 g/dL Normal 5.9-8.4 [facility] Comment on above: Performed By: #### L 500.2500, L501.0900 #### [facility] [address] [place], [address] Urea nitrogen [Mass/Vol] 24 mg/dL High 4-19 [facility] Comment on above: Performed By: #### L 500.2500, L501.0900 #### [facility] [address], [address] Creatinine Unsp time (U) [Ma ss/Vol]on 10-19-2024 Creatinine (U) [Mass/Vol] 97.30 mg/dL 39.00-259. 00 [facility] GFR/1.73 sq M.predicted dave g non-blacks MDRD (S/P/Bld) [Vol rate/Area]on 10-19-2024 Estimated GFR (MDRD) Non-Af Amer 56 Low >60 [facility] Comment on above: mL/min/1.73m2 CKD-EP I Creatinine Equation (2020) Hemoglobin A1con 10-19-2024 HbA1c (Bld) [Mass fraction] 6.2 % High <=5.6 [facility] Comment on above: Result Comment: Norm al < 5.7 % Prediabetic 5.7 - 6.4 % Diabetic >or= 6.5 % Please note range changes. Performed By: #### L 500.2500, L501.0900 #### [facility] [address] [place], [address] Hemoglobin A1c percentageon 10-19-2024 HbA1c (Bld) [Mass fraction] 6.2 % High <5.7 [facility] Comment on above: Normal < 5.7 % Predi abetic 5.7 - 6.4 % Diabetic >or= 6.5 % Please note range changes. LDL calc ser/plason 10-20-19 25 LDL Cholesterol, Calculated 91 mg/dL [facility] Comment on above: Nypsmoxuli=880-186 m g/dL & Higher Xvfp=419 mg/dL or greater Laboratory - Chemistry and C hemistry - challengeon 10-19-2024 AST [Catalytic activity/Vol] 19 U/L <38 [facility] Lipid Profileon 10-19-2024 CHOL:HDL 3.85 Normal [facility] Comment on above: Performed By: #### L 500.2500, L501.0900 #### [facility] [address] [place], [address] Cholesterol [Mass/Vol] 159 mg/dL Normal <=200 [facility] Comment on above: Result Comment: Chol esterol level, Desirable <200 mg/dL Borderline high cholesterol 200-239 mg/dL High cholesterol >=240 mg/dL Recommendations of the NCEP Adult Treatment Panel for the following risk-cutoff thresholds for the [place] population. Performed By: #### L 500.2500, L501.0900 #### [facility] [address] [place], [address] Cholesterol in HDL [Mass/Vol] 41 mg/dL Normal [facility] Comment on above: Result Comment: Flory onal Cholesterol Education Program (NCEP) guidelines: <40 mg/dL: Low HDL-cholesterol (major risk factor for CHD) >= 60 mg/dL: High HDL-cholesterol (negative risk factor for CHD) HDL-cholesterol is affected by a number of factors, e.g. smoking, exercise, hormones, sex and age. Performed By: #### L 500.2500, L501.0900 #### [facility] [address] [place], [address] Cholesterol in LDL [Mass/Vol] 91 mg/dL Normal [facility] Comment on above: Result Comment: Bord aqnnnj=161-456 mg/dL Higher Xlnb=369 mg/dL or greater Performed By: #### L 500.2500, L501.0900 #### [facility] [address] [place], [address] Cholesterol in VLDL [Mass/Vol] 26 mg/dL Normal 5-40 [facility] Comment on above: Performed By: #### L 500.2500, L501.0900 #### [facility] [address] [place], [address] Triglyceride [Mass/Vol] 132 mg/dL Normal [facility] Comment on above: Result Comment: The drugs N-Acetylcysteine and Metamizole may falsely depress this assay. Normal range: <150 mg/dL Borderline High: 150-199 mg/dL High: 200-499 mg/dL Very High: >500 mg/dL Performed By: #### L 500.2500, L501.0900 #### [facility] [address] [place], [address] Microalbumin/creat ratio uro n 10-19-2024 Urine Microalbumin/Creatinine Ratio 4881.8 mg/g CRE [facility] Potassium (Unsp spec) [Mass/ Vol]on 10-19-2024 Potassium [Moles/Vol] 4.3 mmol/L 3.3-5.1 [facility] Screening total cholesterol/ high density lipoprotein (HDL) cholesterol ratioon 10-19-2024 Cholesterol.total/Rachael sterol in HDL [Mass ratio] 3.85 {ratio} [facility] Serum creatinine measurement (mass/volume)on 10-19-2024 Creatinine [Mass/Vol] 1.37 mg/dL High 0.70-1.20 [facility] Serum globulin measurementon 10-19-2024 Globulin (S) [Mass/Vol] 2.3 g/dL 2.2-4.2 [facility] Serum glucose measurement (m ass/volume)on 10-19-2024 Glucose [Mass/Vol] 111 mg/dL High 70-99 [facility] Serum or plasma alanine dorado otransferase (ALT) measurementon 10-19-2024 ALT [Catalytic activity/Vol] 11 U/L <47 [facility] Serum or plasma albumin jenny urement (mass/volume)on 10-19-2024 Albumin [Mass/Vol] 4.3 g/dL 3.4-4.8 [facility] Serum or plasma albumin/glob ulin mass ratioon 10-19-2024 Albumin/Globulin [Mass ratio] 1.9 {ratio} 0.9-2.4 [facility] Serum or plasma alkaline konrad sphatase measurementon 10-19-2024 ALP [Catalytic activity/Vol] 48 U/L 40-129 [facility] Serum or plasma calcium jenny urement (mass/volume)on 10-19-2024 Calcium [Mass/Vol] 9.4 mg/dL 7.6-11.0 [facility] Serum or plasma cholesterol in HDL measurement (mass/volume)on 10-19-2024 Cholesterol in HDL [Mass/Vol] 41 mg/dL >40 [facility] Comment on above: National Cholesterol Education Program (NCEP) guidelines:<40 mg/dL: Low HDL-cholesterol (major risk factor for CHD)>= 60 mg/dL: High HDL-cholesterol (negative risk factor for CHD)HDL-cholesterol is affected by a number of factors, e.g. smoking, exercise, hormones, sex and age. Serum or plasma cholesterol measurement (mass/volume)on 10-19-2024 Cholesterol [Mass/Vol] 159 mg/dL <201 [facility] Comment on above: Cholesterol level, D esirable <200 mg/dLBorderline high cholesterol 200-239 mg/dLHigh cholesterol >=240 mg/dLRecommendations of the NCEP Adult Treatment Panel for the following risk-cutoff thresholds for the [place] population. Serum or plasma urea nitroge n measurement (mass/volume)on 10-19-2024 Urea nitrogen [Mass/Vol] 24 mg/dL High 4-19 [facility] Sodium levelon 10-19-2024 Sodium [Moles/Vol] 143 mmol/L 133-145 [facility] Total proteinon 10-19-2024 Protein [Mass/Vol] 6.6 g/dL 5.9-8.4 [facility] Triglycerides measurementon 10-19-2024 Triglyceride [Mass/Vol] 132 mg/dL <199 [facility] Comment on above: The drugs N-Acetylcy steine and Metamizole may falsely depress this assay. Normal range: <150 mg/dLBorderline High: 150-199 mg/dLHigh: 200-499 mg/dLVery High: >500 mg/dL Lise 08-28-2024 [facility] Telephone ([facility]) -- RODRI GALE ([id number]) 1955 M Date Time Provider Department 08/28/24 [facility] During your visit today, we recorded the following information about you: Rj Menard LPN 08/28/2024 7:03 AM Signed Pt's is requesting to renew pt's handicap placard. 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 ARGENIS Cody Rayanne, PA-C 08/28/2024 7:16 AM [...] tablet by mouth once daily. - Insulin [place], Disposable, (BD ULTRAFINE III MINI PEN) 31 [...] Status:Closed by CRYSTAL DARBY on 08/28/24 Normal [facility] Tacrolimus (Prograf)on 07-15 Tacrolimus (Bld) [Mass/Vol] 5.1 ng/mL Normal 2.0-20.0 [facility] Comment on above: Order Comment: Test( s) [id number]-[id number] (FK506), Bloodwas developed and its performance characteristicsdetermined by [facility]. It has not been cleared or approvedby the Food and Drug Administration. Result Comment: Trou gh (immediately following transplant) 15.0 Trough (steady state, 2 weeks or more after transplant): 3.0 - 8.0 Performed by LC-MS/MS technology. Performed at: [address] [id number] Lift Team Technician: Martínez Orellana MD, Phone: [phone] Performed By: #### L 501.0900, L501.1400, L3380.1000, L500.2500, L509.1000, L506.1001, L100.0100 #### [facility] [address] [place], [address] 45-OQ-Fxwoply Don 07-13-2024 Vitamin D 25-Hydroxy 29.9 ng/mL [facility] Comment on above: Vitamin D 25(OH) Sta tus Range Deficiency <20 ng/mL (50nmol/L) Insufficiency 20 - 30 ng/mL (50 - 75 nmol/L) Sufficiency 30 - 100 ng/mL (75 - 250 nmol/L) Toxicity >100 ng/mL (>250 nmol/L) Absolute neutrophil counton 07-13-2024 Neutrophils (Bld) [#/Vol] 4.8 10*3/uL 2.0-7.7 [facility] Basic Metabolic Profile (BMP )on 07-13-2024 BUN/CRE 18.4 RATIO Normal 10-20 [facility] Comment on above: Performed By: #### L 500.2500, L501.0900 #### [facility] [address] [place], [address] CA,Total 9.2 mg/dL Normal 8.5-10.1 [facility] Comment on above: Performed By: #### L 500.2500, L501.0900 #### [facility] [address] [place], [address] Chloride [Moles/Vol] 116 mmol/L High 98-107 [facility] Comment on above: Performed By: #### L 500.2500, L501.0900 #### [facility] [address] [place], [address] CO2 [Moles/Vol] 24.0 mmol/L Normal 21.0-32.0 [facility] Comment on above: Performed By: #### L 500.2500, L501.0900 #### [facility] [address] [place], [address] Creatinine [Mass/Vol] 1.36 mg/dL High 0.70-1.30 [facility] Comment on above: Result Comment: The validity of the calculated GFR GFRAA in patients over 70 years has not been determined. Clinical correlation is essential. Performed By: #### L 500.2500, L501.0900 #### [facility] [address] [place], [address] EST GFR - AA 67 mL/min Normal >60 [facility] Comment on above: Result Comment: Afri can [place] GFR Calc Performed By: #### L 500.2500, L501.0900 #### [facility] [address] [place], [address] GAP 4 Low 5-15 [facility] Comment on above: Performed By: #### L 500.2500, L501.0900 #### [facility] [address] [place], [address] GFR/1.73 sq M.predicted among non-blacks MDRD (S/P/Bld) [Vol rate/Area] 55 mL/min/{1.73_m2} Low >60 [facility] Comment on above: Result Comment: Non- GFR Calc Performed By: #### L 500.2500, L501.0900 #### [facility] [address] [place], [address] Glucose [Mass/Vol] 138 mg/dL High 74-106 [facility] Comment on above: Result Comment: Fast ing Glucose result greater than or equal to 126 mg/dL suggests DIABETES MELLITUS per A.D.A. criteria. Performed By: #### L 500.2500, L501.0900 #### [facility] [address] [place], [address] Potassium [Moles/Vol] 3.9 mmol/L Normal 3.5-5.1 [facility] Comment on above: Performed By: #### L 500.2500, L501.0900 #### [facility] [address] [place], [address] Sodium [Moles/Vol] 143 mmol/L Normal 136-145 [facility] Comment on above: Performed By: #### L 500.2500, L501.0900 #### [facility] [address] [place], [address] Urea nitrogen [Mass/Vol] 25 mg/dL High 7-18 [facility] Comment on above: Performed By: #### L 500.2500, L501.0900 #### [facility] [address] [place], [address] Basophil percentageon 2024 Basophils/100 WBC (Bld) 1.0 % 0-1 [facility] Blood urea nitrogen (BUN)/cr eatinine ratioon 07-13-2024 Urea nitrogen/Creatinine [Mass ratio] 18.4 mg/mg 10-20 [facility] CBC W/Diff, Automatedon Absolute Lymph 1.11 X10 3/uL Normal 0.83-4.51 [facility] Comment on above: Performed By: #### L 500.2500, L501.0900 #### [facility] [address] [place], [address] Absolute Neut 4.8 X10 3/uL Normal 2.0-7.7 [facility] Comment on above: Performed By: #### L 500.2500, L501.0900 #### [facility] [address] [place], [address] Basophils/100 WBC (Bld) 1.0 % Normal 0-1 [facility] Comment on above: Performed By: #### L 500.2500, L501.0900 #### [facility] [address] [place], [address] Eosinophils/100 WBC (Bld) 2.6 % Normal 0-5 [facility] Comment on above: Performed By: #### L 500.2500, L501.0900 #### [facility] [address] [place], [address] Erythrocyte distribution width (RBC) [Ratio] 13.2 % Normal 11.6-14.6 [facility] Comment on above: Performed By: #### L 500.2500, L501.0900 #### [facility] [address] [place], [address] Hematocrit (Bld) [Volume fraction] 38.6 % Low 40-54 [facility] Comment on above: Performed By: #### L 500.2500, L501.0900 #### [facility] [address] [place], [address] Hemoglobin (Bld) [Mass/Vol] 12.4 g/dL Low 13.0-16.5 [facility] Comment on above: Performed By: #### L 500.2500, L501.0900 #### [facility] [address] [place], [address] IG% 0.400 Normal 0.0-0.9 [facility] Comment on above: Result Comment: IG% - Immature Granulocytes (promyelocytes, myelocytes and metamyelocytes) > 1% indicates that a LEFT SHIFT is Present. Performed By: #### L 500.2500, L501.0900 #### [facility] [address] [place], [address] Lymphocytes/100 WBC (Bld) 16.2 % Low 19-41 [facility] Comment on above: Performed By: #### L 500.2500, L501.0900 #### [facility] [address] [place], [address] MCH (RBC) [Entitic mass] 27.7 pg Normal 27.0-32.0 [facility] Comment on above: Performed By: #### L 500.2500, L501.0900 #### [facility] [address] [place], [address] MCHC (RBC) [Mass/Vol] 32.1 g/dL Normal 32-36 [facility] Comment on above: Performed By: #### L 500.2500, L501.0900 #### [facility] [address] [place], [address] MCV (RBC) [Entitic vol] 86.2 fL Normal 80-94 [facility] Comment on above: Performed By: #### L 500.2500, L501.0900 #### [facility] [address] [place], [address] Monocytes/100 WBC (Bld) 9.5 % Normal 0-10 [facility] Comment on above: Performed By: #### L 500.2500, L501.0900 #### [facility] [address] [place], [address] Neutrophils/100 WBC (Bld) 70.3 % High 47-70 [facility] Comment on above: Performed By: #### L 500.2500, L501.0900 #### [facility] [address] [place], [address] Nucleated RBC (Bld) [#/Vol] 0 10*3/uL Normal 0-5 [facility] Comment on above: Performed By: #### L 500.2500, L501.0900 #### [facility] [address] [place], [address] Platelet mean volume (Bld) [Entitic vol] 10.2 fL Normal 6.2-12.0 [facility] Comment on above: Performed By: #### L 500.2500, L501.0900 #### [facility] [address] [place], [address] Platelets (Bld) [#/Vol] 240 10*3/uL Normal 150-450 [facility] Comment on above: Performed By: #### L 500.2500, L501.0900 #### [facility] [address] [place], [address] RBC (Bld) [#/Vol] 4.48 10*6/uL Low 4.6-6.2 [facility] Comment on above: Performed By: #### L 500.2500, L501.0900 #### [facility] [address] [place], [address] RDW SD 41.2 fl Normal 35.1-43.9 [facility] Comment on above: Performed By: #### L 500.2500, L501.0900 #### [facility] [address] [place], [address] WBC (Bld) [#/Vol] 6.9 10*3/uL Normal 4.4-11.0 [facility] Comment on above: Performed By: #### L 500.2500, L501.0900 #### [facility] [address] [place], [address] Carbon dioxide measurementon 07-13-2024 CO2 [Moles/Vol] 24.0 mmol/L 21.0-32.0 [facility] Chloride measurementon 07-13 Chloride [Moles/Vol] 116 mmol/L High 98-107 [facility] Eosinophil percentageon Eosinophils/100 WBC (Bld) 2.6 % 0-5 [facility] Erythrocyte distribution wid th (RBC) [Ratio]on 07-13-2024 Erythrocyte distribution width (RBC) [Entitic vol] 41.2 fL 35.1-43.9 [facility] Erythrocyte distribution wid th ratioon 07-13-2024 Erythrocyte distribution width (RBC) [Ratio] 13.2 % 11.6-14.6 [facility] Estimated glomerular filtrat ion rate (GFR) Americanon 07-13-2024 Estimated GFR (MDRD) Amer 67 mL/min >60 [facility] Comment on above: GFR Calc Glomerular filtration rate ( GFR) estimationon 07-13-2024 Estimated GFR (MDRD) Non-Af Amer 55 mL/min Low >60 [facility] Comment on above: Non- GFR Calc Glucose measurementon 2024 Glucose [Mass/Vol] 138 mg/dL High 74-106 [facility] Comment on above: Fasting Glucose resu lt greater than or equal to 126 mg/dL suggests DIABETES MELLITUS per A.D.A. criteria. Hematocrit Auto (Bld) [Volum e fraction]on 07-13-2024 Hematocrit (Bld) [Volume fraction] 38.6 % Low 40-54 [facility] Hemoglobin measurementon Hemoglobin (Bld) [Mass/Vol] 12.4 g/dL Low 13.0-16.5 [facility] Immature granulocytes/100 WB C Auto (Bld)on 07-13-2024 Immature granulocytes/100 WBC (Bld) 0.400 % 0.0-0.9 [facility] Comment on above: IG% - Immature Granu locytes (promyelocytes, myelocytes and metamyelocytes) > 1% indicates that a LEFT SHIFT is Present. Intact parathyroid hormone ( iPTH) measurementon 07-13-2024 Parathyroid Hormone (Intact) 94.1 pg/mL High 18.4-80.1 [facility] Lymphocytes Auto (Unsp spec) [#/Vol]on 07-13-2024 Lymphocytes (Bld) [#/Vol] 1.11 10*3/uL 0.83-4.51 [facility] Lymphocytes/100 WBC Auto (Un sp spec)on 07-13-2024 Lymphocytes/100 WBC (Bld) 16.2 % Low 19-41 [facility] MCV (mean corpuscular volume ) determinationon 07-13-2024 MCV (RBC) [Entitic vol] 86.2 fL 80-94 [facility] Mean corpuscular hemoglobin (MCH) determinationon 07-13-2024 MCH (RBC) [Entitic mass] 27.7 pg 27.0-32.0 [facility] Mean corpuscular hemoglobin concentration (MCHC) determinationon 07-13-2024 MCHC (RBC) [Mass/Vol] 32.1 g/dL 32-36 [facility] Mean platelet volume determi nationon 07-13-2024 Platelet mean volume (Bld) [Entitic vol] 10.2 fL 6.2-12.0 [facility] Monocyte percentageon 2024 Monocytes/100 WBC (Bld) 9.5 % 0-10 [facility] Neutrophil percentageon Neutrophils/100 WBC (Bld) 70.3 % High 47-70 [facility] Nucleated red blood cell per centageon 07-13-2024 Nucleated RBC/100 WBC (Bld) [Ratio] 0 % 0-5 [facility] PTHINon 07-13-2024 PTH 94.1 pg/mL High 18.4-80.1 [facility] Comment on above: Performed By: #### L 501.0900, L501.1400, L3380.1000, L500.2500, L509.1000, L506.1001, L100.0100 #### [facility] [address] [place], [address] Platelet counton 07-13-2024 Platelets (Bld) [#/Vol] 240 10*3/uL 150-450 [facility] Potassium measurementon Potassium [Moles/Vol] 3.9 mmol/L 3.5-5.1 [facility] Protein+Creatinine Ratio,Uri neon 07-13-2024 PROT:CRE RATIO 1030 mg/g CRE High 0-200 [facility] Comment on above: Performed By: #### L 500.2500, L501.0900 #### [facility] [address] [place], [address] Protein (U) [Mass/Vol] 118.4 mg/dL High <11.9 [facility] Comment on above: Performed By: #### L 500.2500, L501.0900 #### [facility] [address] [place], [address] UR CREAT 115.00 mg/dL Normal NO RANGE EST. [facility] Comment on above: Performed By: #### L 500.2500, L501.0900 #### [facility] [address] [place], [address] Protein/Creatinine (U) [Mass ratio]on 07-13-2024 Urine Protein/Creatinine Ratio 1030 mg/g CRE High 0-200 [facility] RBC Auto (Bld) [#/Vol]on RBC (Bld) [#/Vol] 4.48 10*6/uL Low 4.6-6.2 [facility] Random urine protein measure menton 07-13-2024 Protein (U) [Mass/Vol] 118.4 mg/dL High 0.0-11.8 [facility] Serum anion gap measuremento n 07-13-2024 Anion gap [Moles/Vol] 4 mmol/L Low 5-15 [facility] Serum or plasma calcium jenny urement (mass/volume)on 07-13-2024 Calcium [Mass/Vol] 9.2 mg/dL 8.5-10.1 [facility] Serum or plasma creatinine m easurement (mass/volume)on 07-13-2024 Creatinine [Mass/Vol] 1.36 mg/dL High 0.70-1.30 [facility] Comment on above: The validity of the calculated GFR & GFRAA in patients over 70 years has not been determined. Clinical correlation is essential. Serum or plasma urea nitroge n measurement (mass/volume)on 07-13-2024 Urea nitrogen [Mass/Vol] 25 mg/dL High 7-18 [facility] Serum or plasma uric acid me asurement (mass/volume)on 07-13-2024 Urate [Mass/Vol] 6.4 mg/dL 3.5-7.2 [facility] Comment on above: The drugs N-Acetylcy steine and Metamizole may falsely depress this assay. Sodium levelon 07-13-2024 Sodium [Moles/Vol] 143 mmol/L 136-145 [facility] Tacrolimus levelon Tacrolimus (Prograf) Level 5.1 ng/mL 2.0-20.0 [facility] Comment on above: Trough (immediately following transplant) 15.0 Trough (steady state, 2 weeks or more after transplant): 3.0 - 8.0 Performed by LC-MS/MS technology.Performed at: [address] [id number] Director: Martínez Orellana MD, Phone: [phone] Uric Acidon 07-13-2024 URIC 6.4 mg/dL Normal 3.5-7.2 [facility] Comment on above: Result Comment: The drugs N-Acetylcysteine and Metamizole may falsely depress this assay. Performed By: #### L 501.0900, L501.1400, L3380.1000, L500.2500, L509.1000, L506.1001, L100.0100 #### [facility] [address] [place], [place], [address] Urine creatinine measurement (mass/volume)on 07-13-2024 Creatinine (U) [Mass/Vol] 115.00 mg/dL NO RANGE EST. [facility] Vitamin D,25 Hydroxyon 07-13 Vitamin D 25-OH 29.9 ng/mL Normal [facility] Comment on above: Result Comment: Renata min D 25(OH) Status Range Deficiency <20 ng/mL (50nmol/L) Insufficiency 20 - 30 ng/mL (50 - 75 nmol/L) Sufficiency 30 - 100 ng/mL (75 - 250 nmol/L) Toxicity >100 ng/mL (>250 nmol/L) Performed By: #### L 501.0900, L501.1400, L3380.1000, L500.2500, L509.1000, L506.1001, L100.0100 #### [facility] [address] [place], [address] White blood cell (WBC) count on 07-13-2024 WBC (Bld) [#/Vol] 6.9 10*3/uL 4.4-11.0 [facility] 07-11-2024 CNPN Telephone (FAMPWS) -- BALJINDERRODRI Garza ([id number]) 1955 M Date Time Provider Department 07/11/24 [facility] During your visit today, we recorded the following information about you: Bianca Wahl RN 07/11/2024 8:16 AM Signed Spouse calls to request an updated referral to podiatry for Dr. Lane Rojas [facility] d/t it being a new year. Pended referral as previously ordered. Please fax to [phone]. Spouse (Pat) also requests a call once referral has been placed at [phone]. DEMETRIO Smith Jeffrey A, MD 07/12/2024 3:21 [...] [E11.8] Order(s):CONSULT TO PODIATRY [9034] Order #: [id number]: 1 FUTURE Prescriptions as of 07/13/2024 - [...] tablet by mouth once daily. - Insulin [place], Disposable, (BD ULTRAFINE III MINI PEN) 31 [...] Encounter Status:Closed by ESHA POZO on 07/13/24 [facility] [facility] 06-26-2024 CNPN Telephone (FAMPWS) -- BALJINDERRODRI Wetzel ([id number]) 1955 M Date Time Provider Department 06/26/24 [facility] During your visit today, we recorded the [...] 4,000 international unit(s) 's a day Tom Betaty RN 06/27/2024 9:36 AM Signed Left vm [...] - Swelling Date Reviewed: 06/23/2024 Reviewed by: Aol Avina MD - Fully Assessed Reason for [...] tablet by mouth once daily. - Insulin [place], Disposable, (BD ULTRAFINE III MINI PEN) 31 [...] Status:Closed by (more content not included)... Normal [facility] Vitamin D,25 Hydroxyon 06-25 Vitamin D 25-OH 24.5 ng/mL Normal [facility] Comment on above: Result Comment: Renata min D 25(OH) Status Range Deficiency <20 ng/mL (50nmol/L) Insufficiency 20 - 30 ng/mL (50 - 75 nmol/L) Sufficiency 30 - 100 ng/mL (75 - 250 nmol/L) Toxicity >100 ng/mL (>250 nmol/L) Performed By: #### L 501.0900, L501.1400, L3380.1000, L500.2500, L509.1000, L506.1001, L100.0100 #### [facility] [address] [place], [place], [id number] 88-IN-Hoxedym DOrdered By: Ricardo Avina on 06-24-2024 Vitamin D 25-Hydroxy 24.5 ng/mL [facility] Comment on above: Vitamin D 25(OH) Sta tus Range Deficiency <20 ng/mL (50nmol/L) Insufficiency 20 - 30 ng/mL (50 - 75 nmol/L) Sufficiency 30 - 100 ng/mL (75 - 250 nmol/L) Toxicity >100 ng/mL (>250 nmol/L) Absolute neutrophil countOrd ered By: Alo Avina on 06-24-2024 Neutrophils (Bld) [#/Vol] 4.4 10*3/uL 2.0-7.7 [facility] Basophil percentageOrdered B y: Alo Avina on 06-24-2024 Basophils/100 WBC (Bld) 0.9 % 0-1 [facility] CBC W/Diff, Automatedon 06-07 Absolute Lymph 1.06 X10 3/uL Normal 0.83-4.51 [facility] Comment on above: Performed By: #### L 501.0900, L501.1400, L3380.1000, L500.2500, L509.1000, L506.1001, L100.0100 #### [facility] [address] [place], [place], [id number] Absolute Neut 4.4 X10 3/uL Normal 2.0-7.7 [facility] Comment on above: Performed By: #### L 501.0900, L501.1400, L3380.1000, L500.2500, L509.1000, L506.1001, L100.0100 #### [facility] [address] [place], [address] Basophils/100 WBC (Bld) 0.9 % Normal 0-1 [facility] Comment on above: Performed By: #### L 501.0900, L501.1400, L3380.1000, L500.2500, L509.1000, L506.1001, L100.0100 #### [facility] [address] [place], [address] Eosinophils/100 WBC (Bld) 2.8 % Normal 0-5 [facility] Comment on above: Performed By: #### L 501.0900, L501.1400, L3380.1000, L500.2500, L509.1000, L506.1001, L100.0100 #### [facility] [address] [place], [address] Erythrocyte distribution width (RBC) [Ratio] 13.2 % Normal 11.6-14.6 [facility] Comment on above: Performed By: #### L 501.0900, L501.1400, L3380.1000, L500.2500, L509.1000, L506.1001, L100.0100 #### [facility] [address] [place], [address] Hematocrit (Bld) [Volume fraction] 36.8 % Low 40-54 [facility] Comment on above: Performed By: #### L 501.0900, L501.1400, L3380.1000, L500.2500, L509.1000, L506.1001, L100.0100 #### [facility] [address] [place], [address] Hemoglobin (Bld) [Mass/Vol] 11.8 g/dL Low 13.0-16.5 [facility] Comment on above: Performed By: #### L 501.0900, L501.1400, L3380.1000, L500.2500, L509.1000, L506.1001, L100.0100 #### [facility] [address] [place], [address] IG% 0.300 Normal 0.0-0.9 [facility] Comment on above: Result Comment: IG% - Immature Granulocytes (promyelocytes, myelocytes and metamyelocytes) > 1% indicates that a LEFT SHIFT is Present. Performed By: #### L 501.0900, L501.1400, L3380.1000, L500.2500, L509.1000, L506.1001, L100.0100 #### [facility] [address] [place], [address] Lymphocytes/100 WBC (Bld) 16.5 % Low 19-41 [facility] Comment on above: Performed By: #### L 501.0900, L501.1400, L3380.1000, L500.2500, L509.1000, L506.1001, L100.0100 #### [facility] [address] [place], [address] MCH (RBC) [Entitic mass] 27.6 pg Normal 27.0-32.0 [facility] Comment on above: Performed By: #### L 501.0900, L501.1400, L3380.1000, L500.2500, L509.1000, L506.1001, L100.0100 #### [facility] [address] [place], [address] MCHC (RBC) [Mass/Vol] 32.1 g/dL Normal 32-36 [facility] Comment on above: Performed By: #### L 501.0900, L501.1400, L3380.1000, L500.2500, L509.1000, L506.1001, L100.0100 #### [facility] [address] [place], [address] MCV (RBC) [Entitic vol] 86.0 fL Normal 80-94 [facility] Comment on above: Performed By: #### L 501.0900, L501.1400, L3380.1000, L500.2500, L509.1000, L506.1001, L100.0100 #### [facility] [address] [place], [address] Monocytes/100 WBC (Bld) 11.8 % High 0-10 [facility] Comment on above: Performed By: #### L 501.0900, L501.1400, L3380.1000, L500.2500, L509.1000, L506.1001, L100.0100 #### [facility] [address] [place], [address] Neutrophils/100 WBC (Bld) 67.7 % Normal 47-70 [facility] Comment on above: Performed By: #### L 501.0900, L501.1400, L3380.1000, L500.2500, L509.1000, L506.1001, L100.0100 #### [facility] [address] [place], [address] Nucleated RBC (Bld) [#/Vol] 0 10*3/uL Normal 0-5 [facility] Comment on above: Performed By: #### L 501.0900, L501.1400, L3380.1000, L500.2500, L509.1000, L506.1001, L100.0100 #### [facility] [address] [place], [address] Platelet mean volume (Bld) [Entitic vol] 10.3 fL Normal 6.2-12.0 [facility] Comment on above: Performed By: #### L 501.0900, L501.1400, L3380.1000, L500.2500, L509.1000, L506.1001, L100.0100 #### [facility] [address] [place], [address] Platelets (Bld) [#/Vol] 206 10*3/uL Normal 150-450 [facility] Comment on above: Performed By: #### L 501.0900, L501.1400, L3380.1000, L500.2500, L509.1000, L506.1001, L100.0100 #### [facility] [address] [place], [address] RBC (Bld) [#/Vol] 4.28 10*6/uL Low 4.6-6.2 [facility] Comment on above: Performed By: #### L 501.0900, L501.1400, L3380.1000, L500.2500, L509.1000, L506.1001, L100.0100 #### [facility] [address] [place], [address] RDW SD 40.9 fl Normal 35.1-43.9 [facility] Comment on above: Performed By: #### L 501.0900, L501.1400, L3380.1000, L500.2500, L509.1000, L506.1001, L100.0100 #### [facility] [address] [place], [address] WBC (Bld) [#/Vol] 6.4 10*3/uL Normal 4.4-11.0 [facility] Comment on above: Performed By: #### L 501.0900, L501.1400, L3380.1000, L500.2500, L509.1000, L506.1001, L100.0100 #### [facility] [address] [place], [address] Diagnostic total prostate sp ecific antigen (PSA) measurementOrdered By: Alo Avina on 06-24-2024 Prostate Specific Antigen Total 2.00 ng/mL 0.0-4.0 [facility] Comment on above: This test was perfor med using the TPSA assay method for the[employer] chemistry system. Values obtained with differentassay methods cannot be used interchangably.When changing PSA assays in the course of monitoring apatient, additional sequential testing should be carriedout to confirm baseline values. Eosinophil percentageOrdered By: Alo Avina on 06-24-2024 Eosinophils/100 WBC (Bld) 2.8 % 0-5 [facility] Erythrocyte distribution wid th (RBC) [Ratio]Ordered By: Alo Avina on 06-24-2024 Erythrocyte distribution width (RBC) [Entitic vol] 40.9 fL 35.1-43.9 [facility] Erythrocyte distribution wid th ratioOrdered By: Alo Avina on 06-24-2024 Erythrocyte distribution width (RBC) [Ratio] 13.2 % 11.6-14.6 [facility] Hematocrit Auto (Bld) [Volum e fraction]Ordered By: Alo Avina on 06-24-2024 Hematocrit (Bld) [Volume fraction] 36.8 % Low 40-54 [facility] Hemoglobin measurementOrdere d By: Alo Avina on 06-24-2024 Hemoglobin (Bld) [Mass/Vol] 11.8 g/dL Low 13.0-16.5 [facility] Immature granulocytes/100 WB C Auto (Bld)Ordered By: Alo Avina on 06-24-2024 Immature granulocytes/100 WBC (Bld) 0.300 % 0.0-0.9 [facility] Comment on above: IG% - Immature Granu locytes (promyelocytes, myelocytes and metamyelocytes) > 1% indicates that a LEFT SHIFT is Present. Lymphocytes Auto (Unsp spec) [#/Vol]Ordered By: Alo Avina on 06-24-2024 Lymphocytes (Bld) [#/Vol] 1.06 10*3/uL 0.83-4.51 [facility] Lymphocytes/100 WBC Auto (Un sp spec)Ordered By: Alo Avina on 06-24-2024 Lymphocytes/100 WBC (Bld) 16.5 % Low 19-41 [facility] MCV (mean corpuscular volume ) determinationOrdered By: Alo Avina on 06-24-2024 MCV (RBC) [Entitic vol] 86.0 fL 80-94 [facility] Mean corpuscular hemoglobin (MCH) determinationOrdered By: Alo Avina on 06-24-2024 MCH (RBC) [Entitic mass] 27.6 pg 27.0-32.0 [facility] Mean corpuscular hemoglobin concentration (MCHC) determinationOrdered By: Alo Avina on 06-24-2024 MCHC (RBC) [Mass/Vol] 32.1 g/dL 32-36 [facility] Mean platelet volume determi nationOrdered By: Alo Avina on 06-24-2024 Platelet mean volume (Bld) [Entitic vol] 10.3 fL 6.2-12.0 [facility] Monocyte percentageOrdered B y: Alo Avina on 06-24-2024 Monocytes/100 WBC (Bld) 11.8 % High 0-10 [facility] Neutrophil percentageOrdered By: Alo Avina on 06-24-2024 Neutrophils/100 WBC (Bld) 67.7 % 47-70 [facility] Nucleated red blood cell per centageOrdered By: Alo Avina on 06-24-2024 Nucleated RBC/100 WBC (Bld) [Ratio] 0 % 0-5 [facility] PSA,Total- Diagnosticon 06-07 PSA, DIAGNOSTIC 2.00 ng/mL Normal 0.0-4.0 [facility] Comment on above: Result Comment: This test was performed using the TPSA assay method for the [employer] chemistry system. Values obtained with different assay methods cannot be used interchangably. When changing PSA assays in the course of monitoring a patient, additional sequential testing should be carried out to confirm baseline values. Performed By: #### L 501.0900, L501.1400, L3380.1000, L500.2500, L509.1000, L506.1001, L100.0100 #### [facility] [address] [place], [address] Platelet countOrdered By: Mehrdad Avina on 06-24-2024 Platelets (Bld) [#/Vol] 206 10*3/uL 150-450 [facility] RBC Auto (Bld) [#/Vol]Ordere d By: Alo Avina on 06-24-2024 RBC (Bld) [#/Vol] 4.28 10*6/uL Low 4.6-6.2 [facility] White blood cell (WBC) count Ordered By: Alo Avina on 06-24-2024 WBC (Bld) [#/Vol] 6.4 10*3/uL 4.4-11.0 [facility] CNOVon 06-23-2024 CNOV Office Visit (FAMPWS ) -- BALJINDERRODRI Wetzel ([id number]) 1955 M Date Time Provider Department 06/23/24 8:00 AM [facility] During your visit today, we recorded [...] Judd Dey MD (Internal Medicine) Keri Day APRN.FILM PROCESSOR as Handy Worker (Family Medicine) Crystal Nation PA-C as Handy Worker (Family Medicine) Claribel Devi: Endo Optho Dr. 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 Normal [facility] CMP (EXTERNAL)on 06-16-2024 Alk Phos Total 57 U/L 45 - 117 U/L [facility] Bili Total 0.30 mg/dL 0.2 - 1 mg/dL [facility] Calcium [Mass/Vol] 9.3 mg/dL 8.5 - 10. 1 mg/dL [facility] GFR 57 mL/MIN [facility] GFR AFR AMER 69 mL/MIN [facility] Protein [Mass/Vol] 6.8 g/dL [facility] Comprehensive Metabolic Prof ilon 06-16-2024 Albumin [Mass/Vol] 3.9 g/dL Normal 3.2-5.0 [facility] Comment on above: Performed By: #### L 500.2530, L501.9985, L502.0250, L500.4050 #### [facility] [address] [place], [address] Albumin/Globulin [Mass ratio] 1.3 {ratio} Normal 0.9-2.4 [facility] Comment on above: Performed By: #### L 500.4100, L501.9985, L502.0250, L500.4050 #### [facility] [address] [place], [address] ALK P 57 U/L Normal 45-117 [facility] Comment on above: Performed By: #### L 500.4100, L501.9985, L502.0250, L500.4050 #### [facility] [address] [place], [address] ALT [Catalytic activity/Vol] 18 U/L Normal 16-61 [facility] Comment on above: Performed By: #### L 500.4100, L501.9985, L502.0250, L500.4050 #### [facility] [address] [place], [address] AST [Catalytic activity/Vol] 20 U/L Normal 15-37 [facility] Comment on above: Performed By: #### L 500.4100, L501.9985, L502.0250, L500.4050 #### [facility] [address] [place], [address] Bilirubin [Mass/Vol] 0.30 mg/dL Normal 0.20-1.00 [facility] Comment on above: Result Comment: For patients on eltrombopag therapy, use of Dimension [place] TBIL is not recommended. Performed By: #### L 500.4100, L501.9985, L502.0250, L500.4050 #### [facility] [address] [place], [address] BUN/CRE 19.5 RATIO Normal 10-20 [facility] Comment on above: Performed By: #### L 500.4100, L501.9985, L502.0250, L500.4050 #### [facility] [address] [place], [address] CA,Total 9.3 mg/dL Normal 8.5-10.1 [facility] Comment on above: Performed By: #### L 500.4100, L501.9985, L502.0250, L500.4050 #### [facility] [address] [place], [address] Chloride [Moles/Vol] 115 mmol/L High 98-107 [facility] Comment on above: Performed By: #### L 500.4100, L501.9985, L502.0250, L500.4050 #### [facility] [address] [place], [address] CO2 [Moles/Vol] 24.0 mmol/L Normal 21.0-32.0 [facility] Comment on above: Performed By: #### L 500.4100, L501.9985, L502.0250, L500.4050 #### [facility] [address] [place], [address] Creatinine [Mass/Vol] 1.33 mg/dL High 0.70-1.30 [facility] Comment on above: Result Comment: The validity of the calculated GFR GFRAA in patients over 70 years has not been determined. Clinical correlation is essential. Performed By: #### L 500.4100, L501.9985, L502.0250, L500.4050 #### [facility] [address] [place], [address] EST GFR - AA 69 mL/min Normal >60 [facility] Comment on above: Result Comment: Afri can Uzbek GFR Calc Performed By: #### L 500.4100, L501.9985, L502.0250, L500.4050 #### [facility] [address] [place], [address] GAP 5 Normal 5-15 [facility] Comment on above: Performed By: #### L 500.4100, L501.9985, L502.0250, L500.4050 #### [facility] [address] [place], [address] GFR/1.73 sq M.predicted among non-blacks MDRD (S/P/Bld) [Vol rate/Area] 57 mL/min/{1.73_m2} Low >60 [facility] Comment on above: Result Comment: Non- GFR Calc Performed By: #### L 500.4100, L501.9985, L502.0250, L500.4050 #### [facility] [address] [place], [address] Globulin (S) [Mass/Vol] 2.9 g/dL Normal 2.2-4.2 [facility] Comment on above: Performed By: #### L 500.4100, L501.9985, L502.0250, L500.4050 #### [facility] [address] [place], [address] Glucose [Mass/Vol] 130 mg/dL High 74-106 [facility] Comment on above: Result Comment: Fast ing Glucose result greater than or equal to 126 mg/dL suggests DIABETES MELLITUS per A.D.A. criteria. Performed By: #### L 500.4100, L501.9985, L502.0250, L500.4050 #### [facility] [address] [place], [address] Potassium [Moles/Vol] 4.2 mmol/L Normal 3.5-5.1 [facility] Comment on above: Performed By: #### L 500.4100, L501.9985, L502.0250, L500.4050 #### [facility] [address] [place], [address] Sodium [Moles/Vol] 144 mmol/L Normal 136-145 [facility] Comment on above: Performed By: #### L 500.4100, L501.9985, L502.0250, L500.4050 #### [facility] [address] [place], [address] T PROT 6.8 g/dL Normal 6.4-8.2 [facility] Comment on above: Performed By: #### L 500.4100, L501.9985, L502.0250, L500.4050 #### [facility] [address] [place], [address] Urea nitrogen [Mass/Vol] 26 mg/dL High 7-18 [facility] Comment on above: Performed By: #### L 500.4100, L501.9985, L502.0250, L500.4050 #### [facility] [address], [address] Hemoglobin A1con 06-16-2024 HbA1c (Bld) [Mass fraction] 6.4 % High 3.8-5.6 [facility] Comment on above: Result Comment: Norm al < 5.7 % Prediabetic 5.7 - 6.4 % Diabetic >or= 6.5 % Please note range changes. Performed By: #### L 500.2500, L501.0900 #### [facility] [address] [place], [address] LIPID PANEL (OUTSIDE)on 06-07 LDL:HDL Ratio [facility] Non-HDL Cholesterol [facility] TC:HDL Ratio [facility] VLDL Cholesterol [facility] Lipid Profileon 06-16-2024 Cholesterol [Mass/Vol] 159 mg/dL Normal 200 Cl [facility] Comment on above: Result Comment: <200 mg/dL Desirable 200-240 mg/dL Borderline >240 mg/dL High Risk Performed By: #### L 500.2500, L501.0900 #### [facility] [address] [place], [address] Cholesterol in HDL [Mass/Vol] 37 mg/dL Low [facility] Comment on above: Result Comment: The drugs N-Acetylcysteine and Metamizole may falsely depress this assay. Reference Range HDL <40 mg/dL Low HDL Cholesterol HDL >or= 60 mg/dL High HDL Cholesterol Performed By: #### L 500.2500, L501.0900 #### [facility] [address] [place], [address] Cholesterol in LDL [Mass/Vol] 90 mg/dL Normal 0-130 [facility] Comment on above: Performed By: #### L 500.2500, L501.0900 #### [facility] [address] [place], [address] Cholesterol in VLDL [Mass/Vol] 32 mg/dL Normal 5-40 [facility] Comment on above: Performed By: #### L 500.2500, L501.0900 #### [facility] [address] [place], [address] Triglyceride [Mass/Vol] 160 mg/dL Normal [facility] Comment on above: Result Comment: The drugs N-Acetylcysteine and Metamizole may falsely depress this assay. Serum Triglycerides Reference Interval Normal <150 mg/dL Borderline high 150 - 199 mg/dL High 200 - 499 mg/dL Very High > or = 500 mg/dL Performed By: #### L 500.2500, L501.0900 #### [facility] [address] [place], [address] MICROALBUMIN/CREATININE UR W RATIO (EXTERNAL)on 06-16-2024 Albumin/Creat Ratio 727 [facility] Creatinine Urine 100 [facility] Microalbumin, Random urine 727 [facility] Microalb:Creat Ratio,Random URon 06-16-2024 Creatinine [Mass/Vol] 100.00 mg/dL Normal NO RAN GE EST. [facility] Comment on above: Performed By: #### L 500.2500, L501.0900 #### [facility] [address] [place], [address] MALB:CRE 727.0 mg/g CRE High <30 mg/g CRE [facility] Comment on above: Performed By: #### L 500.2500, L501.0900 #### [facility] [address] [place], [address] MICROALBUMIN,UR 727.0 mg/L Normal NO RANGE EST. [facility] Comment on above: Performed By: #### L 500.2500, L501.0900 #### [facility] [address] [place], [address] No Panel Informationon 06-16 Interpretation and review of laboratory results Abnormal [facility] RODRI GALE ([id number]) 1955 M Date Time Provider Department 06/15/24 [...] tablet by mouth once daily. - Insulin [place], Disposable, (BD ULTRAFINE III MINI PEN) 31 [...] Encounter Status:Closed by LISANDRA VELÁSQUEZ [facility] RODRI GALE ([id number]) 1955 M Date Time Provider Department 06/05/24 ALO AVINA [facility] During your visit today, we recorded the following information about you: Clarita Thompson RN 06/05/2024 8:25 AM Signed Patient's calling and requesting patient's active lab orders be faxed to [facility] where patient will have them completed. [...] mouth two times a day. - Insulin [place], Disposable, (BD ULTRAFINE III MINI PEN) 31 [...] Status:Closed by CLARITA THOMPSON on 06/05/24 Normal [facility] Basic Metabolic Profile (BMP )on 04-20-2024 BUN/CRE 16.5 RATIO Normal 04-26 [facility] Comment on above: Performed By: #### L 500.2500, L501.0900 #### [facility] [address] [place], [address] CA,Total 9.1 mg/dL Normal 8.5-10.1 [facility] Comment on above: Performed By: #### L 500.2500, L501.0900 #### [facility] [address] [place], [address] Chloride [Moles/Vol] 112 mmol/L High 98-107 [facility] Comment on above: Performed By: #### L 500.2500, L501.0900 #### [facility] [address] [place], [address] CO2 [Moles/Vol] 22.0 mmol/L Normal 21.0-32.0 [facility] Comment on above: Performed By: #### L 500.2500, L501.0900 #### [facility] [address] [place], [address] Creatinine [Mass/Vol] 1.15 mg/dL Normal 0.70-1.30 [facility] Comment on above: Result Comment: The validity of the calculated GFR GFRAA in patients over 70 years has not been determined. Clinical correlation is essential. Performed By: #### L 500.2500, L501.0900 #### [facility] [address] [place], [address] EST GFR - AA 81 mL/min Normal >60 [facility] Comment on above: Result Comment: Afri can Uzbek GFR Calc Performed By: #### L 500.2500, L501.0900 #### [facility] [address] [place], [address] GAP 10 Normal 5-15 [facility] Comment on above: Performed By: #### L 500.2500, L501.0900 #### [facility] [address] [place], [address] GFR/1.73 sq M.predicted among non-blacks MDRD (S/P/Bld) [Vol rate/Area] 67 mL/min/{1.73_m2} Normal >60 [facility] Comment on above: Result Comment: Non- GFR Calc Performed By: #### L 500.2500, L501.0900 #### [facility] [address] [place], [address] Glucose [Mass/Vol] 86 mg/dL Normal 74-106 [facility] Comment on above: Performed By: #### L 500.2500, L501.0900 #### [facility] [address] [place], [address] Potassium [Moles/Vol] 4.1 mmol/L Normal 3.5-5.1 [facility] Comment on above: Performed By: #### L 500.2500, L501.0900 #### [facility] [address] [place], [address] Sodium [Moles/Vol] 143 mmol/L Normal 136-145 [facility] Comment on above: Performed By: #### L 500.2500, L501.0900 #### [facility] [address] [place], [address] Urea nitrogen [Mass/Vol] 19 mg/dL High 7-18 [facility] Comment on above: Performed By: #### L 500.2500, L501.0900 #### [facility] [address] [place], [address] Protein+Creatinine Ratio,Uri neon 04-20-2024 PROT:CRE RATIO 2563 mg/g CRE High 0-200 [facility] Comment on above: Performed By: #### L 500.2500, L501.0900 #### [facility] [address] [place], [address] Protein (U) [Mass/Vol] 196.8 mg/dL High <11.9 [facility] Comment on above: Performed By: #### L 500.2500, L501.0900 #### [facility] [address] [place], [address] UR CREAT 76.80 mg/dL Normal NO RANGE EST. [facility] Comment on above: Performed By: #### L 500.2500, L501.0900 #### [facility] [address] [place], [address] Basophil percentageOrdered B y: Judd Coffeysing on 09-13-2023 Chloride [Moles/Vol] 111 mmol/L 98-107 [facility] Glucose [Mass/Vol] 141 mg/dL 74-106 [facility] Comment on above: Fasting Glucose resu lt greater than or equal to 126 mg/dL suggests DIABETES MELLITUS per A.D.A. criteria. Potassium [Moles/Vol] 4.4 mmol/L 3.5-5.1 [facility] Sodium [Moles/Vol] 141 mmol/L 136-145 [facility] - Chemistry and C hemistry - challengeOrdered By: Judd Dey on 09-13-2023 CO2 [Moles/Vol] 25.0 mmol/L 21.0-32.0 [facility] Urea nitrogen/Creatinine [Mass ratio] 17.7 mg/mg 10-20 [facility] No Panel InformationOrdered By: Judd Dey on 09-13-2023 Estimated GFR (MDRD) Amer 75 mL/min >60 [facility] Comment on above: GFR Calc Estimated GFR (MDRD) Non-Af Amer 62 mL/min >60 [facility] Comment on above: Non- GFR Calc Serum or plasma calcium jenny urement (mass/volume)Ordered By: Judd Dey on 09-13-2023 Calcium [Mass/Vol] 8.9 mg/dL 8.5-10.1 [facility] Serum or plasma creatinine m easurement (mass/volume)Ordered By: Judd Dey on 09-13-2023 Creatinine [Mass/Vol] 1.24 mg/dL 0.70-1.30 [facility] Comment on above: The validity of the calculated GFR & GFRAA in patients over 70 years has not been determined. Clinical correlation is essential. Serum or plasma urea nitroge n measurement (mass/volume)Ordered By: Judd Dey on 09-13-2023 Urea nitrogen [Mass/Vol] 22 mg/dL 7-18 [facility] Thin prep Papanicolaou smear with manual screeningOrdered By: Judd Dey on 09-13-2023 Protein (U) [Mass/Vol] 49.5 mg/dL 0.0-11.8 [facility] Thin prep Papanicolaou smear with manual screening 5 5-15 [facility] Urine creatinine measurement (mass/volume)Ordered By: [facility] on 09-13-2023 Creatinine (U) [Mass/Vol] 148.00 mg/dL NO RANGE EST. [facility] Urine protein/creatinine mas s ratioOrdered By: Judd Bravoraymond on 09-13-2023 Protein/Creatinine (U) [Mass ratio] 334 mg/g CRE 0-200 [facility] Absolute lymphocyte countOrd ered By: Jim Squires on 08-14-2023 Lymphocytes Auto (Unsp spec) [#/Vol] 1.15 10*3/uL 0.83-4.51 [facility] Automated lymphocyte count a s percentage of total leukocytesOrdered By: Jim Squires on 08-14-2023 Lymphocytes/100 WBC Auto (Unsp spec) 17.3 % 19-41 [facility] Basophil percentageOrdered B y: Jim Squires on 08-14-2023 Basophil percentage 3.6 mg/dL 2.5-4.9 [facility] Basophils/100 WBC (Bld) 0.9 % 0-1 [facility] Chloride [Moles/Vol] 114 mmol/L 98-107 [facility] Eosinophils/100 WBC (Bld) 2.9 % 0-5 [facility] Glucose [Mass/Vol] 137 mg/dL 74-106 [facility] Comment on above: Fasting Glucose resu lt greater than or equal to 126 mg/dL suggests DIABETES MELLITUS per A.D.A. criteria. Hemoglobin (Bld) [Mass/Vol] 12.4 g/dL 13.0-16.5 [facility] Monocytes/100 WBC (Bld) 11.1 % 0-10 [facility] Neutrophils (Bld) [#/Vol] 4.5 10*3/uL 2.0-7.7 [facility] Neutrophils/100 WBC (Bld) 67.5 % 47-70 [facility] Potassium [Moles/Vol] 3.9 mmol/L 3.5-5.1 [facility] Sodium [Moles/Vol] 141 mmol/L 136-145 [facility] WBC (Bld) [#/Vol] 6.6 10*3/uL 4.4-11.0 [facility] Determination of erythrocyte mean corpuscular volume (MCV)Ordered By: Jim Squires on 08-14-2023 MCV (RBC) [Entitic vol] 86.6 fL 80-94 [facility] Erythrocyte distribution wid th ratioOrdered By: Jim Squires on 08-14-2023 Erythrocyte distribution width (RBC) [Ratio] 13.2 % 11.6-14.6 [facility] Erythrocyte distribution wid th standard deviationOrdered By: Jim Squires on 08-14-2023 Erythrocyte distribution width (RBC) [Entitic vol] 41.3 fL 35.1-43.9 [facility] Hematocrit Auto (Bld) [Volum e fraction]Ordered By: Jim Squires on 08-14-2023 Hematocrit (Bld) [Volume fraction] 39.4 % 40-54 [facility] Immature granulocytes/100 WB C Auto (Bld)Ordered By: Jim Squires on 08-14-2023 Immature granulocytes/100 WBC (Bld) 0.300 % 0.0-0.9 [facility] Comment on above: IG% - Immature Granu locytes (promyelocytes, myelocytes and metamyelocytes) > 1% indicates that a LEFT SHIFT is Present. Laboratory - Chemistry and C hemistry - challengeOrdered By: Jim Squires on 08-14-2023 CO2 [Moles/Vol] 23.0 mmol/L 21.0-32.0 [facility] Magnesium [Mass/Vol] 2.0 mg/dL 1.6-2.6 [facility] Urea nitrogen/Creatinine [Mass ratio] 15.8 mg/mg 10-20 [facility] - Hematology and Cell countsOrdered By: Jim Squires on 08-14-2023 MCH (RBC) [Entitic mass] 27.3 pg 27.0-32.0 [facility] MCHC (RBC) [Mass/Vol] 31.5 g/dL 32-36 [facility] Nucleated RBC/100 WBC (Bld) [Ratio] 0 % 0-5 [facility] Platelet mean volume (Bld) [Entitic vol] 10.6 fL 6.2-12.0 [facility] Platelets (Bld) [#/Vol] 244 10*3/uL 150-450 [facility] No Panel InformationOrdered By: Jim Squires on 08-14-2023 Estimated GFR (MDRD) Amer 82 mL/min >60 [facility] Comment on above: GFR Calc Estimated GFR (MDRD) Non-Af Amer 68 mL/min >60 [facility] Comment on above: Non- GFR Calc Tacrolimus (Prograf) Level 4.4 ng/mL 2.0-20.0 [facility] Comment on above: Trough (immediately following transplant) 15.0 Trough (steady state, 2 weeks or more after transplant): 3.0 - 8.0 Performed by LC-MS/MS technology.Performed at: [address] [id number] Director: Martínez Orellana MD, Phone: [phone] RBC Auto (Bld) [#/Vol]Ordere d By: Jim Squires on 08-14-2023 RBC (Bld) [#/Vol] 4.55 10*6/uL 4.6-6.2 [facility] Serum or plasma calcium jenny urement (mass/volume)Ordered By: Jim Squires on 08-14-2023 Calcium [Mass/Vol] 9.1 mg/dL 8.5-10.1 [facility] Serum or plasma creatinine m easurement (mass/volume)Ordered By: Jim Squires on 08-14-2023 Creatinine [Mass/Vol] 1.14 mg/dL 0.70-1.30 [facility] Comment on above: The validity of the calculated GFR & GFRAA in patients over 70 years has not been determined. Clinical correlation is essential. Serum or plasma urea nitroge n measurement (mass/volume)Ordered By: Jim Squires on 08-14-2023 Urea nitrogen [Mass/Vol] 18 mg/dL 7-18 [facility] Thin prep Papanicolaou smear with manual screeningOrdered By: Jim Squires on 08-14-2023 Thin prep Papanicolaou smear with manual screening 4 5-15 [facility] Absolute lymphocyte countOrd ered By: Jim Squires on 05-16-2023 Lymphocytes Auto (Unsp spec) [#/Vol] 1.27 10*3/uL 0.83-4.51 [facility] Basophil percentageOrdered B y: Jim Squires on 05-16-2023 Basophil percentage 3.3 mg/dL 2.5-4.9 [facility] Basophils/100 WBC (Bld) 0.7 % 0-1 [facility] Bilirubin [Mass/Vol] 0.40 mg/dL 0.20-1.00 [facility] Comment on above: For patients on eltr ombopag therapy, use of Dimension [place] TBIL is not recommended. Chloride [Moles/Vol] 112 mmol/L 98-107 [facility] Cholesterol [Mass/Vol] 159 mg/dL <200 [facility] Comment on above: <200 mg/dL Desirable 200-240 mg/dL Borderline >240 mg/dL High Risk Eosinophils/100 WBC (Bld) 2.2 % 0-5 [facility] Glucose [Mass/Vol] 116 mg/dL 74-106 [facility] Comment on above: Fasting Glucose resu lt from 100 to 125 mg/dL suggests IMPAIRED HOMEOSTASIS per A.D.A. criteria. Neutrophils (Bld) [#/Vol] 4.8 10*3/uL 2.0-7.7 [facility] Neutrophils/100 WBC (Bld) 69.8 % 47-70 [facility] Potassium [Moles/Vol] 3.9 mmol/L 3.5-5.1 [facility] Protein [Mass/Vol] 6.9 g/dL 6.4-8.2 [facility] Sodium [Moles/Vol] 141 mmol/L 136-145 [facility] Triglyceride [Mass/Vol] 146 mg/dL <199 [facility] Comment on above: The drugs N-Acetylcy steine and Metamizole may falsely depress this assay.Serum Triglycerides Reference Interval Normal <150 mg/dL Borderline high 150 - 199 mg/dL High 200 - 499 mg/dL Very High > or = 500 mg/dL WBC (Bld) [#/Vol] 6.9 10*3/uL 4.4-11.0 [facility] Blood erythrocytes count (nu mber/volume)Ordered By: Jim Squires on 05-16-2023 RBC (Bld) [#/Vol] 4.54 10*6/uL 4.6-6.2 [facility] Blood hemoglobin measurement (mass/volume)Ordered By: Jim Squires on 05-16-2023 Hemoglobin (Bld) [Mass/Vol] 12.4 g/dL 13.0-16.5 [facility] Blood lymphocytes/100 leukoc ytesOrdered By: Jim Squires on 05-16-2023 Lymphocytes/100 WBC (Bld) 18.3 % 19-41 [facility] Blood monocytes/100 leukocyt esOrdered By: Jim Squires on 05-16-2023 Monocytes/100 WBC (Bld) 8.6 % 0-10 [facility] Blood platelet mean volumeOr dered By: Jim Squires on 05-16-2023 Platelet mean volume (Bld) [Entitic vol] 10.3 fL 6.2-12.0 [facility] Determination of erythrocyte mean corpuscular volume (MCV)Ordered By: Jim Squires on 05-16-2023 MCV (RBC) [Entitic vol] 86.8 fL 80-94 [facility] Hematocrit Auto (Bld) [Volum e fraction]Ordered By: Jim Squires on 05-16-2023 Hematocrit (Bld) [Volume fraction] 39.4 % 40-54 [facility] Iron measurement (mass/mass) Ordered By: Jim Squires on 05-16-2023 Iron (Unsp spec) [Mass/Mass] 77 ug/dL 65-175 [facility] - Chemistry and C hemistry - challengeOrdered By: Jim Squires on 05-16-2023 ALP [Catalytic activity/Vol] 51 U/L 45-117 [facility] ALT [Catalytic activity/Vol] 16 U/L 16-61 [facility] CO2 [Moles/Vol] 25.0 mmol/L 21.0-32.0 [facility] Globulin (S) [Mass/Vol] 3.0 g/dL 2.2-4.2 [facility] Magnesium [Mass/Vol] 2.1 mg/dL 1.6-2.6 [facility] Transferrin [Mass/Vol] 192 mg/dL 177-329 [facility] Comment on above: Performed at: [address] [id number] Director: Martínez Orellana MD, Phone: [phone] at: - [facility] [id number] Director: Brad Berkowitz PhD, Phone: [phone] Urea nitrogen/Creatinine [Mass ratio] 16.8 mg/mg 10-20 [facility] - Hematology and Cell countsOrdered By: Jim Squires on 05-16-2023 Erythrocyte distribution width (RBC) [Entitic vol] 42.0 fL 35.1-43.9 [facility] Erythrocyte distribution width (RBC) [Ratio] 13.3 % 11.6-14.6 [facility] Immature granulocytes/100 WBC (Bld) 0.400 % 0.0-0.9 [facility] Comment on above: IG% - Immature Granu locytes (promyelocytes, myelocytes and metamyelocytes) > 1% indicates that a LEFT SHIFT is Present. MCH (RBC) [Entitic mass] 27.3 pg 27.0-32.0 [facility] Nucleated RBC/100 WBC (Bld) [Ratio] 0 % 0-5 [facility] MCHC Auto (RBC) [Mass/Vol]Or dered By: Jim Squires on 05-16-2023 MCHC (RBC) [Mass/Vol] 31.5 g/dL 32-36 [facility] No Panel InformationOrdered By: Jim Squires on 05-16-2023 Estimated GFR (MDRD) Amer 83 mL/min >60 [facility] Comment on above: GFR Calc Estimated GFR (MDRD) Non-Af Amer 69 mL/min >60 [facility] Comment on above: Non- GFR Calc Tacrolimus (Prograf) Level 5.5 ng/mL 2.0-20.0 [facility] Comment on above: Trough (immediately following transplant) 15.0 Trough (steady state, 2 weeks or more after transplant): 3.0 - 8.0 Performed by LC-MS/MS technology. Total Iron Binding Capacity 252 ug/dL 250-450 [facility] Urine Microalbumin/Creatinine Ratio 94.3 mg/g CRE <30 [facility] Platelets bldOrdered By: Adria Squires on 05-16-2023 Platelets (Bld) [#/Vol] 256 10*3/uL 150-450 [facility] Serum or plasma albumin jenny urement (mass/volume)Ordered By: Jim Squires on 05-16-2023 Albumin [Mass/Vol] 3.9 g/dL 3.2-5.0 [facility] Serum or plasma albumin/glob ulin mass ratioOrdered By: Jim Squires on 05-16-2023 Albumin/Globulin [Mass ratio] 1.3 {ratio} 0.9-2.4 [facility] Serum or plasma calcium jenny urement (mass/volume)Ordered By: Jim Squires on 05-16-2023 Calcium [Mass/Vol] 8.9 mg/dL 8.5-10.1 [facility] Serum or plasma cholesterol in HDL measurement (mass/volume)Ordered By: Jim Squires on 05-16-2023 Cholesterol in HDL [Mass/Vol] 42 mg/dL >40 [facility] Comment on above: The drugs N-Acetylcy steine and Metamizole may falsely depress this assay. Reference Range HDL <40 mg/dL Low HDL Cholesterol HDL >or= 60 mg/dL High HDL Cholesterol Serum or plasma cholesterol in VLDL measurement (mass/volume)Ordered By: Jim Squires on 05-16-2023 Cholesterol in VLDL [Mass/Vol] 29 mg/dL 5-40 [facility] Serum or plasma creatinine m easurement (mass/volume)Ordered By: Jim Squires on 05-16-2023 Creatinine [Mass/Vol] 1.13 mg/dL 0.70-1.30 [facility] Comment on above: The validity of the calculated GFR & GFRAA in patients over 70 years has not been determined. Clinical correlation is essential. Serum or plasma ferritin britany surement (mass/volume)Ordered By: Jim Squires on 05-16-2023 Ferritin [Mass/Vol] 575 ng/mL 26-388 [facility] Serum or plasma iron saturat ion measurement (mass fraction)Ordered By: Jim Squires on 05-16-2023 Iron saturation [Mass fraction] 30.6 % 15.0-55.0 [facility] Serum or plasma low density lipoprotein (LDL) cholesterol measurement (mass/volume)Ordered By: Jim Squires on 05-16-2023 Cholesterol in LDL [Mass/Vol] 88 mg/dL 0-130 [facility] Serum or plasma urea nitroge n measurement (mass/volume)Ordered By: Jim Squires on 05-16-2023 Urea nitrogen [Mass/Vol] 19 mg/dL 7-18 [facility] Thin prep Papanicolaou smear with manual screeningOrdered By: Jim Squires on 05-16-2023 Thin prep Papanicolaou smear with manual screening 17 U/L 15-37 [facility] Thin prep Papanicolaou smear with manual screening 4 5-15 [facility] Thin prep Papanicolaou smear with manual screening 115.0 mg/L NO RANGE EST. [facility] Urine creatinine measurement (mass/volume)Ordered By: Jim Squires on 05-16-2023 Creatinine (U) [Mass/Vol] 122.00 mg/dL NO RANGE EST. [facility] Urine protein measurement (m ass/volume)Ordered By: Jim Squires on 05-16-2023 Protein (U) [Mass/Vol] 28.6 mg/dL 0.0-11.8 [facility] Urine protein/creatinine mas s ratioOrdered By: Jim Squires on 05-16-2023 Protein/Creatinine (U) [Mass ratio] 234 mg/g CRE 0-200 [facility] Whole blood hemoglobin A1c/t otal hemoglobin ratio (mass fraction)Ordered By: Jim Squires on 05-16-2023 HbA1c (Bld) [Mass fraction] 6.2 % 3.8-5.6 [facility] Comment on above: Normal < 5.7 % Predi abetic 5.7 - 6.4 % Diabetic >or= 6.5 % Please note range changes. Absolute lymphocyte countOrd ered By: Jim Squires on 02-06-2023 Lymphocytes Auto (Unsp spec) [#/Vol] 1.77 10*3/uL 0.83-4.51 [facility] Basophil percentageOrdered B y: Jim Squires on 02-06-2023 Basophil percentage 3.4 mg/dL 2.5-4.9 [facility] Basophils/100 WBC (Bld) 0.9 % 0-1 [facility] Chloride [Moles/Vol] 111 mmol/L 98-107 [facility] Eosinophils/100 WBC (Bld) 3.2 % 0-5 [facility] Glucose [Mass/Vol] 114 mg/dL 74-106 [facility] Comment on above: Fasting Glucose resu lt from 100 to 125 mg/dL suggests IMPAIRED HOMEOSTASIS per A.D.A. criteria. Neutrophils (Bld) [#/Vol] 4.9 10*3/uL 2.0-7.7 [facility] Neutrophils/100 WBC (Bld) 63.9 % 47-70 [facility] Potassium [Moles/Vol] 4.4 mmol/L 3.5-5.1 [facility] Sodium [Moles/Vol] 141 mmol/L 136-145 [facility] WBC (Bld) [#/Vol] 7.7 10*3/uL 4.4-11.0 [facility] Blood erythrocytes count (nu mber/volume)Ordered By: Jim Squires on 02-06-2023 RBC (Bld) [#/Vol] 4.61 10*6/uL 4.6-6.2 [facility] Blood hemoglobin measurement (mass/volume)Ordered By: Jim Squires on 02-06-2023 Hemoglobin (Bld) [Mass/Vol] 12.8 g/dL 13.0-16.5 [facility] Blood lymphocytes/100 leukoc ytesOrdered By: Jim Squires on 02-06-2023 Lymphocytes/100 WBC (Bld) 22.9 % 19-41 [facility] Blood monocytes/100 leukocyt esOrdered By: Jim Squires on 02-06-2023 Monocytes/100 WBC (Bld) 8.7 % 0-10 [facility] Blood platelet mean volumeOr dered By: Jim Squires on 02-06-2023 Platelet mean volume (Bld) [Entitic vol] 10.2 fL 6.2-12.0 [facility] Determination of erythrocyte mean corpuscular volume (MCV)Ordered By: Jim Squires on 02-06-2023 MCV (RBC) [Entitic vol] 88.3 fL 80-94 [facility] Hematocrit Auto (Bld) [Volum e fraction]Ordered By: Jim Squires on 02-06-2023 Hematocrit (Bld) [Volume fraction] 40.7 % 40-54 [facility] - Chemistry and C hemistry - challengeOrdered By: Jim Squires on 02-06-2023 CO2 [Moles/Vol] 24.0 mmol/L 21.0-32.0 [facility] Magnesium [Mass/Vol] 2.2 mg/dL 1.6-2.6 [facility] Urea nitrogen/Creatinine [Mass ratio] 12.4 mg/mg 10-20 [facility] - Hematology and Cell countsOrdered By: Jim Squires on 02-06-2023 Erythrocyte distribution width (RBC) [Entitic vol] 42.3 fL 35.1-43.9 [facility] Erythrocyte distribution width (RBC) [Ratio] 13.1 % 11.6-14.6 [facility] Immature granulocytes/100 WBC (Bld) 0.400 % 0.0-0.9 [facility] Comment on above: IG% - Immature Granu locytes (promyelocytes, myelocytes and metamyelocytes) > 1% indicates that a LEFT SHIFT is Present. MCH (RBC) [Entitic mass] 27.8 pg 27.0-32.0 [facility] Nucleated RBC/100 WBC (Bld) [Ratio] 0 % 0-5 [facility] MCHC Auto (RBC) [Mass/Vol]Or dered By: Jim Squires on 02-06-2023 MCHC (RBC) [Mass/Vol] 31.4 g/dL 32-36 [facility] No Panel InformationOrdered By: Jim Squires on 02-06-2023 Estimated GFR (MDRD) Amer 71 mL/min >60 [facility] Comment on above: GFR Calc Estimated GFR (MDRD) Non-Af Amer 59 mL/min >60 [facility] Comment on above: Non- GFR Calc Tacrolimus (Prograf) Level 6.4 ng/mL 2.0-20.0 [facility] Comment on above: Trough (immediately following transplant) 15.0 Trough (steady state, 2 weeks or more after transplant): 3.0 - 8.0 Performed by LC-MS/MS technology.Performed at: [address] [id number] Director: Martínez Orellana MD, Phone: [phone] Platelets bldOrdered By: Adria Squires on 02-06-2023 Platelets (Bld) [#/Vol] 235 10*3/uL 150-450 [facility] Serum or plasma calcium jenny urement (mass/volume)Ordered By: Jim Squires on 02-06-2023 Calcium [Mass/Vol] 9.6 mg/dL 8.5-10.1 [facility] Serum or plasma creatinine m easurement (mass/volume)Ordered By: Jim Squires on 02-06-2023 Creatinine [Mass/Vol] 1.29 mg/dL 0.70-1.30 [facility] Comment on above: The validity of the calculated GFR & GFRAA in patients over 70 years has not been determined. Clinical correlation is essential. Serum or plasma urea nitroge n measurement (mass/volume)Ordered By: Jim Squires on 02-06-2023 Urea nitrogen [Mass/Vol] 16 mg/dL 7-18 [facility] Thin prep Papanicolaou smear with manual screeningOrdered By: Jim Squires on 02-06-2023 Thin prep Papanicolaou smear with manual screening 6 5-15 [facility] Absolute lymphocyte countOrd ered By: Lindsay Meza on 01-07-2023 Lymphocytes Auto (Unsp spec) [#/Vol] 0.80 10*3/uL 0.83-4.51 [facility] Basophil percentageOrdered B y: Lindsay Meza on 01-07-2023 Basophils/100 WBC (Bld) 0.4 % 0-1 [facility] Bilirubin [Mass/Vol] 0.40 mg/dL 0.20-1.00 [facility] Comment on above: For patients on eltr ombopag therapy, use of Dimension [place] TBIL is not recommended. Chloride [Moles/Vol] 112 mmol/L 98-107 [facility] Eosinophils/100 WBC (Bld) 1.3 % 0-5 [facility] Glucose [Mass/Vol] 215 mg/dL 74-106 [facility] Comment on above: Glucose result great er than or equal to 200 mg/dLsuggests DIABETES MELLITUS per A.D.A. criteria. Neutrophils (Bld) [#/Vol] 11.5 10*3/uL 2.0-7.7 [facility] Neutrophils/100 WBC (Bld) 84.4 % 47-70 [facility] Potassium [Moles/Vol] 3.3 mmol/L 3.5-5.1 [facility] Protein [Mass/Vol] 6.0 g/dL 6.4-8.2 [facility] Sodium [Moles/Vol] 139 mmol/L 136-145 [facility] WBC (Bld) [#/Vol] 13.6 10*3/uL 4.4-11.0 [facility] Blood erythrocytes count (nu mber/volume)Ordered By: Lindsay Meza on 01-07-2023 RBC (Bld) [#/Vol] 3.48 10*6/uL 4.6-6.2 [facility] Blood hemoglobin measurement (mass/volume)Ordered By: Lindsay Meza on 01-07-2023 Hemoglobin (Bld) [Mass/Vol] 9.9 g/dL 13.0-16.5 [facility] Blood lymphocytes/100 leukoc ytesOrdered By: Lindsay Meza on 01-07-2023 Lymphocytes/100 WBC (Bld) 5.9 % 19-41 [facility] Blood monocytes/100 leukocyt esOrdered By: Lindsay Meza on 01-07-2023 Monocytes/100 WBC (Bld) 7.1 % 0-10 [facility] Blood platelet mean volumeOr dered By: Lindsay Meza on 01-07-2023 Platelet mean volume (Bld) [Entitic vol] 9.9 fL 6.2-12.0 [facility] Determination of erythrocyte mean corpuscular volume (MCV)Ordered By: Lindsay Meza on 01-07-2023 MCV (RBC) [Entitic vol] 87.6 fL 80-94 [facility] Glucose Glucometer (BldC) [M ass/Vol]Ordered By: Lindsay Meza on 01-07-2023 Glucose [Mass/Vol] 230 mg/dL 74-106 [facility] Comment on above: MANAGEMENT OF PATIEN T CARE PER NURSING PROTOCOL Glucose [Mass/Vol] 221 mg/dL 74-106 [facility] Comment on above: MANAGEMENT OF PATIEN T CARE PER NURSING PROTOCOL Hematocrit Auto (Bld) [Volum e fraction]Ordered By: Lindsay Meza on 01-07-2023 Hematocrit (Bld) [Volume fraction] 30.5 % 40-54 [facility] - Chemistry and C hemistry - challengeOrdered By: Lindsay Meza on 01-07-2023 ALP [Catalytic activity/Vol] 44 U/L 45-117 [facility] ALT [Catalytic activity/Vol] 12 U/L 16-61 [facility] CO2 [Moles/Vol] 21.0 mmol/L 21.0-32.0 [facility] Globulin (S) [Mass/Vol] 3.6 g/dL 2.2-4.2 [facility] Urea nitrogen/Creatinine [Mass ratio] 8.9 mg/mg 10-20 [facility] - Hematology and Cell countsOrdered By: Lindsay Meza on 01-07-2023 Erythrocyte distribution width (RBC) [Entitic vol] 41.1 fL 35.1-43.9 [facility] Erythrocyte distribution width (RBC) [Ratio] 12.9 % 11.6-14.6 [facility] Immature granulocytes/100 WBC (Bld) 0.900 % 0.0-0.9 [facility] Comment on above: IG% - Immature Granu locytes (promyelocytes, myelocytes and metamyelocytes) > 1% indicates that a LEFT SHIFT is Present. MCH (RBC) [Entitic mass] 28.4 pg 27.0-32.0 [facility] Nucleated RBC/100 WBC (Bld) [Ratio] 0 % 0-5 [facility] MCHC Auto (RBC) [Mass/Vol]Or dered By: Lindsay Meza on 01-07-2023 MCHC (RBC) [Mass/Vol] 32.5 g/dL 32-36 [facility] No Panel InformationOrdered By: Lindsay Meza on 07-03-2023 Estimated Creatinine Clearance Calc 66.08 ml/min [facility] Estimated GFR (MDRD) Amer 84 mL/min >60 [facility] Comment on above: GFR Calc Estimated GFR (MDRD) Non-Af Amer 69 mL/min >60 [facility] Comment on above: Non- GFR Calc Platelets bldOrdered By: Joaquin Meza on 01-07-2023 Platelets (Bld) [#/Vol] 307 10*3/uL 150-450 [facility] Serum or plasma albumin jenny urement (mass/volume)Ordered By: Lindsay Meza on 01-07-2023 Albumin [Mass/Vol] 2.4 g/dL 3.2-5.0 [facility] Serum or plasma albumin/glob ulin mass ratioOrdered By: Lindsay Meza on 01-07-2023 Albumin/Globulin [Mass ratio] 0.7 {ratio} 0.9-2.4 [facility] Serum or plasma calcium jenny urement (mass/volume)Ordered By: Lindsay Meza on 01-07-2023 Calcium [Mass/Vol] 8.8 mg/dL 8.5-10.1 [facility] Serum or plasma creatinine m easurement (mass/volume)Ordered By: Lindsay Meza on 01-07-2023 Creatinine [Mass/Vol] 1.12 mg/dL 0.70-1.30 [facility] Comment on above: The validity of the calculated GFR & GFRAA in patients over 70 years has not been determined. Clinical correlation is essential. Serum or plasma urea nitroge n measurement (mass/volume)Ordered By: Lindsay Meza on 01-07-2023 Urea nitrogen [Mass/Vol] 10 mg/dL 7-18 [facility] Thin prep Papanicolaou smear with manual screeningOrdered By: Lindsay Meza on 01-07-2023 Thin prep Papanicolaou smear with manual screening 12 U/L 15-37 [facility] Thin prep Papanicolaou smear with manual screening 6 5-15 [facility] Vancomycin troughOrdered By: Lindsay Meza on 01-07-2023 Vancomycin trough [Mass/Vol] 11.7 ug/mL 5.0-15.0 [facility] Comment on above: VANCOMYCIN STANDARED DRUG THERAPY TROUGH LEVEL: 5.0 - 15.0 mg/L VANCOMYCIN HIGH INTENSITY THERAPY TROUGH LEVEL: 15.0 - 20.0 mg/L High Intensity therapy recommended for serious lifethreatening infections include:- Imrpmdscrl-Gswswugcadnf-Qkmsuqcng (Ventilator/Healtcare Associated)-Sepsis PLEASE CONTACT PHARMACY SERVICES (#4306) FOR INTERPRETATIONOF RESULTS. No Panel InformationOrdered By: Lindsay Meza on 01-06-2023 Tacrolimus (Prograf) Level 5.1 ng/mL 2.0-20.0 [facility] Comment on above: Trough (immediately following transplant) 15.0 Trough (steady state, 2 weeks or more after transplant): 3.0 - 8.0 Performed by LC-MS/MS technology.Performed at: [address] [id number] Director: Martínez Orellana MD, Phone: [phone] Acid fast bacilli (AFB) cult ureOrdered By: Lane Rojas on 01-04-2023 Mycobacterium sp identified Org specific cx Nom (Unsp spec) [facility] Bacteria identified Cx Nom ( Wound)Ordered By: Lane Rojas on 01-04-2023 Wound Culture Streptococcus mitis/ oralis [facility] Fungus cultureOrdered By: Marta Rojas on 01-04-2023 Fungus identified Cx Nom (Unsp spec) [facility] Fungus stainOrdered By: Robin Rojas on 01-04-2023 Fungus identified Fungus stain Nom (Unsp spec) [facility] Gram stain for investigation of transfusion reactionOrdered By: Lane Rojas on 01-04-2023 Microscopic observation Gram stain Nom (Unsp spec) [facility] Laboratory - Chemistry and C hemistry - challengeOrdered By: Amado Hanson on 01-04-2023 Magnesium [Mass/Vol] 2.2 mg/dL 1.6-2.6 [facility] No Panel InformationOrdered By: Amado Hanson on 01-04-2023 Troponin I High Sensitivity 14 pg/mL 3.0-78.0 [facility] Comment on above: Please Note: New Mary Ellen t Units and Gender Specific Reference Ranges. For more information see Policy Stat Procedure [place] High Sensitivity Troponin (TNIH) and attachments. Thin prep Papanicolaou smear with manual screeningOrdered By: Lane Rojas on 01-04-2023 Thin prep Papanicolaou smear with manual screening [facility] Whole blood hemoglobin A1c/t otal hemoglobin ratio (mass fraction)Ordered By: Servando Huber on 01-04-2023 HbA1c (Bld) [Mass fraction] 7.6 % 3.8-5.6 [facility] Comment on above: Normal < 5.7 % Predi abetic 5.7 - 6.4 % Diabetic >or= 6.5 % Please note range changes. Absolute lymphocyte countOrd ered By: Julius Camp on 01-03-2023 Lymphocytes Auto (Unsp spec) [#/Vol] 0.89 10*3/uL 0.83-4.51 [facility] Basophil percentageOrdered B y: Julius Camp on 01-03-2023 Basophil percentage 0-5 SEEN /hpf 0-5 [facility] Basophils/100 WBC (Bld) 0.3 % 0-1 [facility] Bilirubin [Mass/Vol] 0.50 mg/dL 0.20-1.00 [facility] Comment on above: For patients on eltr ombopag therapy, use of Dimension [place] TBIL is not recommended. Chloride [Moles/Vol] 104 mmol/L 98-107 [facility] Eosinophils/100 WBC (Bld) 0.1 % 0-5 [facility] Glucose [Mass/Vol] 185 mg/dL 74-106 [facility] Comment on above: Fasting Glucose resu lt greater than or equal to 126 mg/dL suggests DIABETES MELLITUS per A.D.A. criteria. Lactate [Moles/Vol] 1.3 mmol/L 0.4-2.0 [facility] Neutrophils (Bld) [#/Vol] 13.8 10*3/uL 2.0-7.7 [facility] Neutrophils/100 WBC (Bld) 82.9 % 47-70 [facility] Potassium [Moles/Vol] 4.0 mmol/L 3.5-5.1 [facility] Protein [Mass/Vol] 7.4 g/dL 6.4-8.2 [facility] Sodium [Moles/Vol] 137 mmol/L 136-145 [facility] WBC (Bld) [#/Vol] 16.7 10*3/uL 4.4-11.0 [facility] Bilirubin Test strip Ql (U)O rdered By: Julius Camp on 01-03-2023 Bilirubin Ql (U) Negative Negative [facility] Blood erythrocytes count (nu mber/volume)Ordered By: Julius Camp on 01-03-2023 RBC (Bld) [#/Vol] 4.16 10*6/uL 4.6-6.2 [facility] Blood hemoglobin measurement (mass/volume)Ordered By: Julius Camp on 01-03-2023 Hemoglobin (Bld) [Mass/Vol] 11.8 g/dL 13.0-16.5 [facility] Blood lymphocytes/100 leukoc ytesOrdered By: Julius Camp on 01-03-2023 Lymphocytes/100 WBC (Bld) 5.3 % 19-41 [facility] Blood manual differential co mment interpretation (narrative result)Ordered By: Julius Camp on 01-03-2023 Manual differential comment Sekou (Bld) [Interp] COMMENT [facility] Comment on above: MONOCYTOSIS. Blood monocytes/100 leukocyt esOrdered By: Julius Camp on 01-03-2023 Monocytes/100 WBC (Bld) 10.9 % 0-10 [facility] Blood platelet mean volumeOr dered By: Julius Camp on 01-03-2023 Platelet mean volume (Bld) [Entitic vol] 10.0 fL 6.2-12.0 [facility] Culture, urineOrdered By: Damir Camp on 01-03-2023 Bacteria identified Cx Nom (U) Culture exhibits no growth. [facility] Determination of erythrocyte mean corpuscular volume (MCV)Ordered By: Julius Camp on 01-03-2023 MCV (RBC) [Entitic vol] 86.3 fL 80-94 [facility] Hematocrit Auto (Bld) [Volum e fraction]Ordered By: Julius Camp on 01-03-2023 Hematocrit (Bld) [Volume fraction] 35.9 % 40-54 [facility] INR in Blood by Coagulation assayOrdered By: Julius Camp on 01-03-2023 INR Coag (Bld) [Relative time] 1.1 {INR} [facility] Ketones Test strip Ql (U)Ord ered By: Julius Camp on 01-03-2023 Ketones Ql (U) 5 mg/dl Negative [facility] Laboratory - Chemistry and C hemistry - challengeOrdered By: Julius Camp on 01-03-2023 ALP [Catalytic activity/Vol] 58 U/L 45-117 [facility] ALT [Catalytic activity/Vol] 14 U/L 16-61 [facility] CO2 [Moles/Vol] 24.0 mmol/L 21.0-32.0 [facility] Globulin (S) [Mass/Vol] 3.6 g/dL 2.2-4.2 [facility] Urea nitrogen/Creatinine [Mass ratio] 14.6 mg/mg 10-20 [facility] Laboratory - CoagulationOrde red By: Julius Camp on 01-03-2023 aPTT Coag (Bld) [Time] 27.6 s 24.1-36.2 [facility] PT Coag (PPP) [Time] 14.1 s 11.7-14.9 [facility] Laboratory - Hematology and Cell countsOrdered By: Julius Camp on 01-03-2023 Erythrocyte distribution width (RBC) [Entitic vol] 39.6 fL 35.1-43.9 [facility] Erythrocyte distribution width (RBC) [Ratio] 12.6 % 11.6-14.6 [facility] Immature granulocytes/100 WBC (Bld) 0.500 % 0.0-0.9 [facility] Comment on above: IG% - Immature Granu locytes (promyelocytes, myelocytes and metamyelocytes) > 1% indicates that a LEFT SHIFT is Present. MCH (RBC) [Entitic mass] 28.4 pg 27.0-32.0 [facility] Nucleated RBC/100 WBC (Bld) [Ratio] 0 % 0-5 [facility] Laboratory - Microbiology an d Antimicrobial susceptibilityOrdered By: Julius Camp on 01-03-2023 Bacteria identified Cx Nom (Bld) No growth in 5 days. [facility] MCHC Auto (RBC) [Mass/Vol]Or dered By: Julius Camp on 01-03-2023 MCHC (RBC) [Mass/Vol] 32.9 g/dL 32-36 [facility] Mucus LM Ql (Urine sed)Order ed By: Julius Camp on 01-03-2023 Mucus Ql (Urine sed) 0 SEEN /hpf [facility] Nitrite Test strip Ql (U)Ord ered By: Julius Camp on 01-03-2023 Nitrite Ql (U) Negative Negative [facility] No Panel InformationOrdered By: Julius Camp on 01-03-2023 Estimated Creatinine Clearance Calc 54.02 ml/min [facility] Estimated GFR (MDRD) Amer 67 mL/min >60 [facility] Comment on above: GFR Calc Estimated GFR (MDRD) Non-Af Amer 55 mL/min >60 [facility] Comment on above: Non- GFR Calc Platelets bldOrdered By: Saundra Camp on 01-03-2023 Platelets (Bld) [#/Vol] 251 10*3/uL 150-450 [facility] Protein Test strip Ql (U)Ord ered By: Julius Camp on 01-03-2023 Protein Ql (U) 30 mg/dl Negative [facility] Respiratory pathogens detect ion panel by molecular detection methodOrdered By: Julius Camp on 01-03-2023 Respiratory pathogens DNA and RNA panel JUAN+probe (Resp) [facility] Review by pathologistOrdered By: Julius Camp on 01-03-2023 Pathologist review Sekou (Unsp spec) [Interp] Ayesha sun [facility] Pathologist review Sekou (Unsp spec) [Interp] Reviewed [facility] Comment on above: Previous reported re sult: Ayesha sun Edited by: RGOOD on 01/04/23:1019Neutrophilic leukocytosis.Clinical correlation necessary.Riley Marshall M.D. 01/04/23 AMENDED REPORT 01/04/23 1019 PATH REV previously reported as: Ayesha sun Serum or plasma albumin jenny urement (mass/volume)Ordered By: Julius Camp on 01-03-2023 Albumin [Mass/Vol] 3.8 g/dL 3.2-5.0 [facility] Serum or plasma albumin/glob ulin mass ratioOrdered By: Julius Camp on 01-03-2023 Albumin/Globulin [Mass ratio] 1.1 {ratio} 0.9-2.4 [facility] Serum or plasma calcium jenny urement (mass/volume)Ordered By: Julius Camp on 01-03-2023 Calcium [Mass/Vol] 9.1 mg/dL 8.5-10.1 [facility] Serum or plasma creatinine m easurement (mass/volume)Ordered By: Julius Camp on 01-03-2023 Creatinine [Mass/Vol] 1.37 mg/dL 0.70-1.30 [facility] Comment on above: The validity of the calculated GFR & GFRAA in patients over 70 years has not been determined. Clinical correlation is essential. Serum or plasma urea nitroge n measurement (mass/volume)Ordered By: Julius Camp on 01-03-2023 Urea nitrogen [Mass/Vol] 20 mg/dL 7-18 [facility] Squamous epithelial cells de tection in urine sediment by light microscopyOrdered By: Julius Camp on 01-03-2023 Epithelial cells.squamous LM Ql (Urine sed) 0-5 SEEN /hpf 0-5 [facility] Thin prep Papanicolaou smear with manual screeningOrdered By: Julius Camp on 01-03-2023 Thin prep Papanicolaou smear with manual screening 13 U/L 15-37 [facility] Thin prep Papanicolaou smear with manual screening 9 5-15 [facility] Urine blood detectionOrdered By: Julius Camp on 01-03-2023 RBC Ql (U) Negative Negative [facility] RBC Ql (U) 0 SEEN /hpf 0-5 [facility] Urine clarityOrdered By: Saundra Camp on 01-03-2023 Clarity (U) Clear Clear [facility] Urine color determinationOrd ered By: Julius Camp on 01-03-2023 Color (U) Yellow Yellow [facility] Urine glucose detectionOrder ed By: Julius Camp on 01-03-2023 Glucose Ql (U) Normal mg/dl Normal [facility] Urine leukocyte esterase det ection by dipstickOrdered By: Julius Camp on 01-03-2023 Leukocyte esterase Test strip Ql (U) 25 /ul Negative [facility] Urine pHOrdered By: Julius ayala on 01-03-2023 pH (U) 5.0 [pH] 5.0 - 8.0 [facility] Urine sediment bacteria coun t by microscopy (number/high power field)Ordered By: Julius Camp on 01-03-2023 Bacteria LM.HPF (Urine sed) [#/Area] 0 /[HPF] None Seen [facility] Urine specific gravity measu rementOrdered By: Julius Camp on 01-03-2023 Specific gravity (U) [Rel density] 1.020 1.002-1.03 0 [facility] Urobilinogen Auto test strip Ql (U)Ordered By: Julius Camp on 01-03-2023 Urobilinogen Ql (U) Normal mg/dl Normal [facility] Absolute lymphocyte countOrd ered By: Crystal Nation on 11-28-2022 Lymphocytes Auto (Unsp spec) [#/Vol] 1.49 10*3/uL 0.83-4.51 [facility] Automated blood hematocrit ( percentage)Ordered By: Crystal Nation on 11-28-2022 Hematocrit (Bld) [Volume fraction] 41.1 % 40-54 [facility] Basophil percentageOrdered B y: Crystal Nation on 11-28-2022 Basophil percentage 0-5 SEEN /hpf 0-5 [facility] Basophils/100 WBC (Bld) 0.7 % 0-1 [facility] Bilirubin [Mass/Vol] 0.40 mg/dL 0.20-1.00 [facility] Comment on above: For patients on eltr ombopag therapy, use of Dimension [place] TBIL is not recommended. Chloride [Moles/Vol] 114 mmol/L 98-107 [facility] Cholesterol [Mass/Vol] 174 mg/dL <200 [facility] Comment on above: <200 mg/dL Desirable 200-240 mg/dL Borderline >240 mg/dL High Risk Eosinophils/100 WBC (Bld) 1.4 % 0-5 [facility] Glucose [Mass/Vol] 111 mg/dL 74-106 [facility] Comment on above: Fasting Glucose resu lt from 100 to 125 mg/dL suggests IMPAIRED HOMEOSTASIS per A.D.A. criteria. Neutrophils (Bld) [#/Vol] 5.8 10*3/uL 2.0-7.7 [facility] Neutrophils/100 WBC (Bld) 70.2 % 47-70 [facility] Potassium [Moles/Vol] 4.1 mmol/L 3.5-5.1 [facility] Protein [Mass/Vol] 7.0 g/dL 6.4-8.2 [facility] Sodium [Moles/Vol] 145 mmol/L 136-145 [facility] Triglyceride [Mass/Vol] 116 mg/dL <199 [facility] Comment on above: The drugs N-Acetylcy steine and Metamizole may falsely depress this assay.Serum Triglycerides Reference Interval Normal <150 mg/dL Borderline high 150 - 199 mg/dL High 200 - 499 mg/dL Very High > or = 500 mg/dL WBC (Bld) [#/Vol] 8.3 10*3/uL 4.4-11.0 [facility] Bilirubin Test strip Ql (U)O rdered By: Crystal Nation on 11-28-2022 Bilirubin Ql (U) Negative Negative [facility] Blood erythrocytes count (nu mber/volume)Ordered By: Crystal Nation on 11-28-2022 RBC (Bld) [#/Vol] 4.65 10*6/uL 4.6-6.2 [facility] Blood hemoglobin measurement (mass/volume)Ordered By: Crystal Nation on 11-28-2022 Hemoglobin (Bld) [Mass/Vol] 13.0 g/dL 13.0-16.5 [facility] Blood lymphocytes/100 leukoc ytesOrdered By: Crystal Nation on 11-28-2022 Lymphocytes/100 WBC (Bld) 17.9 % 19-41 [facility] Blood monocytes/100 leukocyt esOrdered By: Crystal Nation on 11-28-2022 Monocytes/100 WBC (Bld) 9.6 % 0-10 [facility] Blood platelet mean volumeOr dered By: Crystal Nation on 11-28-2022 Platelet mean volume (Bld) [Entitic vol] 10.5 fL 6.2-12.0 [facility] CBC W/DIFF/PLT (EXTERNAL LAB FE)on 11-28-2022 BASO ABSOLUTE [facility] EOS ABSOLUTE [facility] Hemoglobin (Bld) [Mass/Vol] 13 g/dL 12.6 - 17.7 g/dL [facility] Immature Gran % [facility] IMMATURE GRANS ABSOLUTE [facility] Lymphocytes (Bld) [#/Vol] 1.49 10*3/uL 0.7 - 3.1 k/uL [facility] MCH 28 Pg 26.6 - 33 Pg [facility] MONOCYTES ABSOLUTE [facility] NEUTROPHILS ABSOLUTE 5.8 k/uL 1.4 - 7 .0 k/uL [facility] CMP (EXTERNAL)on 11-28-2022 Alk Phos Total 55 U/L 45 - 117 U/L [facility] AST [Catalytic activity/Vol] 19 U/L 8 - 37 U/L [facility] Bili Total 0.4 mg/dL 0.2 - 1 mg/dL [facility] CO2 [Moles/Vol] 22 mmol/L 21 - 32 MEQ/L [facility] GFR AFR AMER 89 mL/MIN [facility] GFR/1.73 sq M.predicted among non-blacks MDRD (S/P/Bld) [Vol rate/Area] 73 mL/min/{1.73_m2} [facility] Determination of erythrocyte mean corpuscular volume (MCV)Ordered By: Crystal Nation on 11-28-2022 MCV (RBC) [Entitic vol] 88.4 fL 80-94 [facility] Ketones Test strip Ql (U)Ord ered By: Crystal Nation on 11-28-2022 Ketones Ql (U) Negative Negative [facility] LIPID PANEL (OUTSIDE)on 11-06 LDL:HDL Ratio [facility] Non-HDL Cholesterol [facility] TC:HDL Ratio [facility] VLDL Cholesterol [facility] Laboratory - Chemistry and C hemistry - challengeOrdered By: Crystal Nation on 11-28-2022 ALP [Catalytic activity/Vol] 55 U/L 45-117 [facility] ALT [Catalytic activity/Vol] 19 U/L 16-61 [facility] CO2 [Moles/Vol] 22.0 mmol/L 21.0-32.0 [facility] Globulin (S) [Mass/Vol] 3.2 g/dL 2.2-4.2 [facility] Urea nitrogen/Creatinine [Mass ratio] 13.1 mg/mg 10-20 [facility] Laboratory - Hematology and Cell countsOrdered By: Crystal Nation on 11-28-2022 Erythrocyte distribution width (RBC) [Entitic vol] 41.5 fL 35.1-43.9 [facility] Erythrocyte distribution width (RBC) [Ratio] 12.8 % 11.6-14.6 [facility] Immature granulocytes/100 WBC (Bld) 0.200 % 0.0-0.9 [facility] Comment on above: IG% - Immature Granu locytes (promyelocytes, myelocytes and metamyelocytes) > 1% indicates that a LEFT SHIFT is Present. MCH (RBC) [Entitic mass] 28.0 pg 27.0-32.0 [facility] Nucleated RBC/100 WBC (Bld) [Ratio] 0 % 0-5 [facility] MCHC [Mass/volume] by Automa jonathan countOrdered By: Crystal Nation on 11-28-2022 MCHC (RBC) [Mass/Vol] 31.6 g/dL 32-36 [facility] MICROALBUMIN/CREATININE UR W RATIO (EXTERNAL)on 11-28-2022 Albumin/Creat Ratio 47.8 Abnormal 30 [facility] Creatinine Urine 138 [facility] Microalbumin, Random urine 66 [facility] Mucus LM Ql (Urine sed)Order ed By: Crystal Nation on 11-28-2022 Mucus Ql (Urine sed) 0 SEEN /hpf [facility] Nitrite Test strip Ql (U)Ord ered By: Crystal Nation on 11-28-2022 Nitrite Ql (U) Negative Negative [facility] No Panel InformationOrdered By: Crystal Nation on 11-28-2022 Estimated GFR (MDRD) Amer 89 mL/min >60 [facility] Comment on above: GFR Calc Estimated GFR (MDRD) Non-Af Amer 73 mL/min >60 [facility] Comment on above: Non- GFR Calc Prostate Specific Antigen Screen 2.37 ng/mL 0.00-4.00 [facility] Comment on above: This test was perfor med using the TPSA assay method for the[employer] chemistry system. Values obtained with differentassay methods cannot be used interchangably.When changing PSA assays in the course of monitoring apatient, additional sequential testing should be carriedout to confirm baseline values. Urine Microalbumin/Creatinine Ratio 47.8 mg/g CRE <30 [facility] Vitamin D 25-Hydroxy 48.8 ng/mL [facility] Comment on above: Vitamin D 25(OH) Sta tus Range Deficiency <20 ng/mL (50nmol/L) Insufficiency 20 - 30 ng/mL (50 - 75 nmol/L) Sufficiency 30 - 100 ng/mL (75 - 250 nmol/L) Toxicity >100 ng/mL (>250 nmol/L) Platelets bldOrdered By: Baron Nation on 11-28-2022 Platelets (Bld) [#/Vol] 272 10*3/uL 150-450 [facility] Protein Test strip Ql (U)Ord ered By: Crystal Nation on 11-28-2022 Protein Ql (U) 30 mg/dl Negative [facility] Serum or plasma albumin jenny urement (mass/volume)Ordered By: Crystal Nation on 11-28-2022 Albumin [Mass/Vol] 3.8 g/dL 3.2-5.0 [facility] Serum or plasma albumin/glob ulin mass ratioOrdered By: Crystal Nation on 11-28-2022 Albumin/Globulin [Mass ratio] 1.2 {ratio} 0.9-2.4 [facility] Serum or plasma calcium jenny urement (mass/volume)Ordered By: Crystal Nation on 11-28-2022 Calcium [Mass/Vol] 8.9 mg/dL 8.5-10.1 [facility] Serum or plasma cholesterol in HDL measurement (mass/volume)Ordered By: Crystal Nation on 11-28-2022 Cholesterol in HDL [Mass/Vol] 43 mg/dL >40 [facility] Comment on above: The drugs N-Acetylcy steine and Metamizole may falsely depress this assay. Reference Range HDL <40 mg/dL Low HDL Cholesterol HDL >or= 60 mg/dL High HDL Cholesterol Serum or plasma cholesterol in VLDL measurement (mass/volume)Ordered By: Crystal Nation on 11-28-2022 Cholesterol in VLDL [Mass/Vol] 23 mg/dL 5-40 [facility] Serum or plasma creatinine m easurement (mass/volume)Ordered By: Crystal Nation on 11-28-2022 Creatinine [Mass/Vol] 1.07 mg/dL 0.70-1.30 [facility] Comment on above: The validity of the calculated GFR & GFRAA in patients over 70 years has not been determined. Clinical correlation is essential. Serum or plasma low density lipoprotein (LDL) cholesterol measurement (mass/volume)Ordered By: Crystal Nation on 11-28-2022 Cholesterol in LDL [Mass/Vol] 108 mg/dL 0-130 [facility] Serum or plasma urea nitroge n measurement (mass/volume)Ordered By: Crystal Nation on 11-28-2022 Urea nitrogen [Mass/Vol] 14 mg/dL 7-18 [facility] Squamous epithelial cells de tection in urine sediment by light microscopyOrdered By: Crystal Nation on 11-28-2022 Epithelial cells.squamous LM Ql (Urine sed) 0-5 SEEN /hpf 0-5 [facility] Thin prep Papanicolaou smear with manual screeningOrdered By: Crystal Nation on 11-28-2022 Thin prep Papanicolaou smear with manual screening 19 U/L 15-37 [facility] Thin prep Papanicolaou smear with manual screening 9 5-15 [facility] Thin prep Papanicolaou smear with manual screening 66.0 mg/L NO RANGE EST. [facility] Urine blood detectionOrdered By: Crystal Nation on 11-28-2022 RBC Ql (U) Negative Negative [facility] RBC Ql (U) 0 SEEN /hpf 0-5 [facility] Urine clarityOrdered By: Baron Nation on 11-28-2022 Clarity (U) Clear Clear [facility] Urine color determinationOrd ered By: Crystal Nation on 11-28-2022 Color (U) Yellow Yellow [facility] Urine creatinine measurement (mass/volume)Ordered By: Crystal Nation on 11-28-2022 Creatinine (U) [Mass/Vol] 138.00 mg/dL NO RANGE EST. [facility] Urine glucose detectionOrder ed By: Crystal Nation on 11-28-2022 Glucose Ql (U) Normal mg/dl Normal [facility] Urine leukocyte esterase det ection by dipstickOrdered By: Crystal Nation on 11-28-2022 Leukocyte esterase Test strip Ql (U) 25 /ul Negative [facility] Urine pHOrdered By: Crystal Nation on 11-28-2022 pH (U) 6.0 [pH] 5.0 - 8.0 [facility] Urine sediment bacteria coun t by microscopy (number/high power field)Ordered By: Crystal Nation on 11-28-2022 Bacteria LM.HPF (Urine sed) [#/Area] 1 /[HPF] None Seen [facility] Urine specific gravity measu rementOrdered By: Crystal Nation on 11-28-2022 Specific gravity (U) [Rel density] 1.015 1.002-1.03 0 [facility] Urobilinogen Auto test strip Ql (U)Ordered By: Crystal Nation on 11-28-2022 Urobilinogen Ql (U) Normal mg/dl Normal [facility] VITAMIN D (OUTSIDE)on 2022 VITAMIN D 48.8 ng/mL 31 - 80 ng/mL [facility] Whole blood hemoglobin A1c/t otal hemoglobin ratio (mass fraction)Ordered By: Crystal Nation on 11-28-2022 HbA1c (Bld) [Mass fraction] 8.0 % 3.8-5.6 [facility] Comment on above: Normal < 5.7 % Predi abetic 5.7 - 6.4 % Diabetic >or= 6.5 % Please note range changes. Absolute lymphocyte countOrd ered By: Dr. Squires on 11-07-2022 Lymphocytes Auto (Unsp spec) [#/Vol] 1.47 10*3/uL 0.83-4.51 [facility] Basophil percentageOrdered B y: Dr. Squires on 11-07-2022 Basophil percentage 3.3 mg/dL 2.5-4.9 [facility] [place] Bas[place]/100 WBC (Bld) 0.8 % 0-1 [facility] Chloride [Moles/Vol] 112 mmol/L 98-[address] [facility] [address] [facility] [place] Eosinophils/100 WBC (Bld) 2.0 % 0-5 [facility] Glucose [Mass/Vol] 87 mg/dL 74-106 [facility] Neutrophils (Bld) [#/Vol] 4.6 10*3/uL 2.0-7.7 [facility] Neutrophils/100 WBC (Bld) 64.6 % 47-70 [facility] Potassium [Moles/Vol] 3.8 mmol/L 3.5-5.1 [facility] Sodium [Moles/Vol] 143 mmol/L 136-145 [facility] WBC (Bld) [#/Vol] 7.1 10*3/uL 4.4-11.0 [facility] Blood erythrocytes count (nu mber/volume)Ordered By: Dr. Squires on 11-07-2022 RBC (Bld) [#/Vol] 4.62 10*6/uL 4.6-6.2 [facility] Blood hemoglobin measurement (mass/volume)Ordered By: Dr. Squires on 11-07-2022 Hemoglobin (Bld) [Mass/Vol] 13.1 g/dL 13.0-16.5 [facility] Blood lymphocytes/100 leukoc ytesOrdered By: Dr. Squires on 11-07-2022 Lymphocytes/100 WBC (Bld) 20.8 % 19-41 [facility] Blood monocytes/100 leukocyt esOrdered By: Dr. Squires on 11-07-2022 Monocytes/100 WBC (Bld) 11.5 % 0-10 [facility] Blood platelet mean volumeOr dered By: Dr. Squires on 11-07-2022 Platelet mean volume (Bld) [Entitic vol] 10.4 fL 6.2-12.0 [facility] Determination of erythrocyte mean corpuscular volume (MCV)Ordered By: Dr. Squires on 11-07-2022 MCV (RBC) [Entitic vol] 87.2 fL 80-94 [facility] Hematocrit Auto (Bld) [Volum e fraction]Ordered By: Dr. Squires on 11-07-2022 Hematocrit (Bld) [Volume fraction] 40.3 % 40-54 [facility] Laboratory - Chemistry and C hemistry - challengeOrdered By: Dr. Squires on 11-07-2022 CO2 [Moles/Vol] 24.0 mmol/L 21.0-32.0 [facility] Magnesium [Mass/Vol] 1.9 mg/dL 1.6-2.6 [facility] Laboratory - Hematology and Cell countsOrdered By: Dr. Squires on 11-07-2022 Erythrocyte distribution width (RBC) [Entitic vol] 40.2 fL 35.1-43.9 [facility] Erythrocyte distribution width (RBC) [Ratio] 12.8 % 11.6-14.6 [facility] Immature granulocytes/100 WBC (Bld) 0.300 % 0.0-0.9 [facility] Comment on above: IG% - Immature Granu locytes (promyelocytes, myelocytes and metamyelocytes) > 1% indicates that a LEFT SHIFT is Present. MCH (RBC) [Entitic mass] 28.4 pg 27.0-32.0 [facility] Nucleated RBC/100 WBC (Bld) [Ratio] 0 % 0-5 [facility] MCHC Auto (RBC) [Mass/Vol]Or dered By: Dr. Squires on 11-07-2022 MCHC (RBC) [Mass/Vol] 32.5 g/dL 32-36 [facility] No Panel InformationOrdered By: Dr. Squires on 11-07-2022 Estimated GFR (MDRD) Amer 76 mL/min >60 [facility] Comment on above: GFR Calc Estimated GFR (MDRD) Non-Af Amer 63 mL/min >60 [facility] Comment on above: Non- GFR Calc No Panel InformationOrdered By: Jim Squires on 11-07-2022 Tacrolimus (Prograf) Level See comment [facility] Comment on above: TEST RESULTS LIMITST acrolimus (FK506), Blood A, 5.1 ng/mL 2.0-20.0 Trough (immediately following transplant) 15.0 Trough (steady state, 2 weeks or more after transplant): 3.0 - 8.0 Performed by LC-MS/MS technology. [facility] ORIGINAL REPORT ON FILE IN LAB CONTAINS ADDITIONAL TEST SITE INFORMATION. Platelets bldOrdered By: Dr. Squires on 11-07-2022 Platelets (Bld) [#/Vol] 248 10*3/uL 150-450 [facility] Serum or plasma calcium jenny urement (mass/volume)Ordered By: Dr. Squires on 11-07-2022 Calcium [Mass/Vol] 9.3 mg/dL 8.5-10.1 [facility] Serum or plasma creatinine m easurement (mass/volume)Ordered By: Dr. Squires on 11-07-2022 Creatinine [Mass/Vol] 1.22 mg/dL 0.70-1.30 [facility] Comment on above: The validity of the calculated GFR & GFRAA in patients over 70 years has not been determined. Clinical correlation is essential. Serum or plasma urea nitroge n measurement (mass/volume)Ordered By: Dr. Squires on 11-07-2022 Urea nitrogen [Mass/Vol] 15 mg/dL 7-18 [facility] Thin prep Papanicolaou smear with manual screeningOrdered By: Dr. Squires on 11-07-2022 Thin prep Papanicolaou smear with manual screening 7 5-15 [facility] Glucose Glucometer (BldC) [M ass/Vol]Ordered By: Dr. Espino on 11-02-2022 Glucose [Mass/Vol] 125 mg/dL 74-106 [facility] Comment on above: MANAGEMENT OF PATIEN T CARE PER NURSING PROTOCOL Absolute lymphocyte countOrd ered By: Dr. Squires on 09-05-2022 Lymphocytes Auto (Unsp spec) [#/Vol] 1.49 10*3/uL 0.83-4.51 [facility] Basophil percentageOrdered B y: Dr. Squires on 09-05-2022 Basophil percentage 3.7 mg/dL 2.5-4.9 [facility] Basophils/100 WBC (Bld) 0.8 % 0-1 [facility] Chloride [Moles/Vol] 110 mmol/L 98-107 [facility] Eosinophils/100 WBC (Bld) 2.0 % 0-5 [facility] Glucose [Mass/Vol] 138 mg/dL 74-106 [facility] Comment on above: Fasting Glucose resu lt greater than or equal to 126 mg/dL suggests DIABETES MELLITUS per A.D.A. criteria. Neutrophils (Bld) [#/Vol] 5.0 10*3/uL 2.0-7.7 [facility] Neutrophils/100 WBC (Bld) 66.1 % 47-70 [facility] Potassium [Moles/Vol] 3.8 mmol/L 3.5-5.1 [facility] Sodium [Moles/Vol] 142 mmol/L 136-145 [facility] WBC (Bld) [#/Vol] 7.5 10*3/uL 4.4-11.0 [facility] Blood erythrocytes count (nu mber/volume)Ordered By: Dr. Squires on 09-05-2022 RBC (Bld) [#/Vol] 4.78 10*6/uL 4.6-6.2 [facility] Blood hemoglobin measurement (mass/volume)Ordered By: Dr. Squires on 09-05-2022 Hemoglobin (Bld) [Mass/Vol] 13.4 g/dL 13.0-16.5 [facility] Blood lymphocytes/100 leukoc ytesOrdered By: Dr. Squires on 09-05-2022 Lymphocytes/100 WBC (Bld) 19.9 % 19-41 [facility] Blood monocytes/100 leukocyt esOrdered By: Dr. Squires on 09-05-2022 Monocytes/100 WBC (Bld) 10.7 % 0-10 [facility] Blood platelet mean volumeOr dered By: Dr. Squires on 09-05-2022 Platelet mean volume (Bld) [Entitic vol] 10.4 fL 6.2-12.0 [facility] Determination of erythrocyte mean corpuscular volume (MCV)Ordered By: Dr. Squires on 09-05-2022 MCV (RBC) [Entitic vol] 86.4 fL 80-94 [facility] Hematocrit Auto (Bld) [Volum e fraction]Ordered By: Dr. Squires on 09-05-2022 Hematocrit (Bld) [Volume fraction] 41.3 % 40-54 [facility] Laboratory - Chemistry and C hemistry - challengeOrdered By: Dr. Squires on 09-05-2022 CO2 [Moles/Vol] 25.0 mmol/L 21.0-32.0 [facility] Magnesium [Mass/Vol] 1.7 mg/dL 1.6-2.6 [facility] Laboratory - Hematology and Cell countsOrdered By: Dr. Squires on 09-05-2022 Erythrocyte distribution width (RBC) [Entitic vol] 40.4 fL 35.1-43.9 [facility] Erythrocyte distribution width (RBC) [Ratio] 12.9 % 11.6-14.6 [facility] Immature granulocytes/100 WBC (Bld) 0.500 % 0.0-0.9 [facility] Comment on above: IG% - Immature Granu locytes (promyelocytes, myelocytes and metamyelocytes) > 1% indicates that a LEFT SHIFT is Present. MCH (RBC) [Entitic mass] 28.0 pg 27.0-32.0 [facility] Nucleated RBC/100 WBC (Bld) [Ratio] 0 % 0-5 [facility] MCHC Auto (RBC) [Mass/Vol]Or dered By: Dr. Squires on 09-05-2022 MCHC (RBC) [Mass/Vol] 32.4 g/dL 32-36 [facility] No Panel InformationOrdered By: Dr. Squires on 09-05-2022 Estimated GFR (MDRD) Amer 78 mL/min >60 [facility] Comment on above: GFR Calc Estimated GFR (MDRD) Non-Af Amer 64 mL/min >60 [facility] Comment on above: Non- GFR Calc Tacrolimus (Prograf) Level 5.6 ng/mL 2.0-20.0 [facility] Comment on above: Trough (immediately following transplant) 15.0 Trough (steady state, 2 weeks or more after transplant): 3.0 - 8.0 Performed by LC-MS/MS technology.Performed at: [address] [id number] Director: Martínez Orellana MD, Phone: [phone] Platelets bldOrdered By: Dr. Squires on 09-05-2022 Platelets (Bld) [#/Vol] 236 10*3/uL 150-450 [facility] Serum or plasma calcium jenny urement (mass/volume)Ordered By: Dr. Squires on 09-05-2022 Calcium [Mass/Vol] 9.3 mg/dL 8.5-10.1 [facility] Serum or plasma creatinine m easurement (mass/volume)Ordered By: Dr. Squires on 09-05-2022 Creatinine [Mass/Vol] 1.20 mg/dL 0.70-1.30 [facility] Comment on above: The validity of the calculated GFR & GFRAA in patients over 70 years has not been determined. Clinical correlation is essential. Serum or plasma urea nitroge n measurement (mass/volume)Ordered By: Dr. Squires on 09-05-2022 Urea nitrogen [Mass/Vol] 17 mg/dL 7-18 [facility] Thin prep Papanicolaou smear with manual screeningOrdered By: Dr. Squires on 09-05-2022 Thin prep Papanicolaou smear with manual screening 7 5-15 [facility] Absolute lymphocyte countOrd ered By: Dr. Squires on 07-18-2022 Lymphocytes Auto (Unsp spec) [#/Vol] 1.60 10*3/uL 0.83-4.51 [facility] Basophil percentageOrdered B y: Dr. Squires on 07-18-2022 Basophil percentage 3.8 mg/dL 2.5-4.9 [facility] Basophils/100 WBC (Bld) 0.6 % 0-1 [facility] Chloride [Moles/Vol] 111 mmol/L 98-107 [facility] Eosinophils/100 WBC (Bld) 1.6 % 0-5 [facility] Glucose [Mass/Vol] 125 mg/dL 74-106 [facility] Comment on above: Fasting Glucose resu lt from 100 to 125 mg/dL suggests IMPAIRED HOMEOSTASIS per A.D.A. criteria. Neutrophils (Bld) [#/Vol] 5.4 10*3/uL 2.0-7.7 [facility] Neutrophils/100 WBC (Bld) 67.6 % 47-70 [facility] Potassium [Moles/Vol] 3.9 mmol/L 3.5-5.1 [facility] Sodium [Moles/Vol] 142 mmol/L 136-145 [facility] WBC (Bld) [#/Vol] 8.0 10*3/uL 4.4-11.0 [facility] Blood erythrocytes count (nu mber/volume)Ordered By: Dr. Squires on 07-18-2022 RBC (Bld) [#/Vol] 4.99 10*6/uL 4.6-6.2 [facility] Blood hemoglobin measurement (mass/volume)Ordered By: Dr. Squires on 07-18-2022 Hemoglobin (Bld) [Mass/Vol] 14.2 g/dL 13.0-16.5 [facility] Blood lymphocytes/100 leukoc ytesOrdered By: Dr. Squires on 07-18-2022 Lymphocytes/100 WBC (Bld) 19.9 % 19-41 [facility] Blood monocytes/100 leukocyt esOrdered By: Dr. Squires on 07-18-2022 Monocytes/100 WBC (Bld) 9.8 % 0-10 [facility] Blood platelet mean volumeOr dered By: Dr. Squires on 07-18-2022 Platelet mean volume (Bld) [Entitic vol] 9.8 fL 6.2-12.0 [facility] Determination of erythrocyte mean corpuscular volume (MCV)Ordered By: Dr. Squires on 07-18-2022 MCV (RBC) [Entitic vol] 86.2 fL 80-94 [facility] Hematocrit Auto (Bld) [Volum e fraction]Ordered By: Dr. Squires on 07-18-2022 Hematocrit (Bld) [Volume fraction] 43.0 % 40-54 [facility] Laboratory - Chemistry and C hemistry - challengeOrdered By: Dr. Squires on 07-18-2022 CO2 [Moles/Vol] 25.0 mmol/L 21.0-32.0 [facility] Magnesium [Mass/Vol] 2.0 mg/dL 1.6-2.6 [facility] Laboratory - Hematology and Cell countsOrdered By: Dr. Squires on 07-18-2022 Erythrocyte distribution width (RBC) [Entitic vol] 39.6 fL 35.1-43.9 [facility] Erythrocyte distribution width (RBC) [Ratio] 12.8 % 11.6-14.6 [facility] Immature granulocytes/100 WBC (Bld) 0.500 % 0.0-0.9 [facility] Comment on above: IG% - Immature Granu locytes (promyelocytes, myelocytes and metamyelocytes) > 1% indicates that a LEFT SHIFT is Present. MCH (RBC) [Entitic mass] 28.5 pg 27.0-32.0 [facility] Nucleated RBC/100 WBC (Bld) [Ratio] 0 % 0-5 [facility] MCHC Auto (RBC) [Mass/Vol]Or dered By: Dr. Squires on 07-18-2022 MCHC (RBC) [Mass/Vol] 33.0 g/dL 32-36 [facility] No Panel InformationOrdered By: Dr. Squires on 07-18-2022 Estimated GFR (MDRD) Amer 70 mL/min >60 [facility] Comment on above: GFR Calc Estimated GFR (MDRD) Non-Af Amer 58 mL/min >60 [facility] Comment on above: Non- GFR Calc Tacrolimus (Prograf) Level 6.7 ng/mL 2.0-20.0 [facility] Comment on above: Trough (immediately following transplant) 15.0 Trough (steady state, 2 weeks or more after transplant): 3.0 - 8.0 Performed by LC-MS/MS technology.Performed at: [address] [id number] Director: Martínez Orellana MD, Phone: [phone] Platelets bldOrdered By: Dr. Squires on 07-18-2022 Platelets (Bld) [#/Vol] 277 10*3/uL 150-450 [facility] Serum or plasma calcium jenny urement (mass/volume)Ordered By: Dr. Squires on 07-18-2022 Calcium [Mass/Vol] 9.4 mg/dL 8.5-10.1 [facility] Serum or plasma creatinine m easurement (mass/volume)Ordered By: Dr. Squires on 07-18-2022 Creatinine [Mass/Vol] 1.32 mg/dL 0.70-1.30 [facility] Comment on above: The validity of the calculated GFR & GFRAA in patients over 70 years has not been determined. Clinical correlation is essential. Serum or plasma urea nitroge n measurement (mass/volume)Ordered By: Dr. Squires on 07-18-2022 Urea nitrogen [Mass/Vol] 20 mg/dL 7-18 [facility] Thin prep Papanicolaou smear with manual screeningOrdered By: Dr. Squires on 07-18-2022 Thin prep Papanicolaou smear with manual screening 6 5-15 [facility] Absolute lymphocyte counton 05-16-2022 Lymphocytes Auto (Unsp spec) [#/Vol] 1.48 10*3/uL 0.83-4.51 [facility] Work Phone: Basophil percentageon 2021 Basophil percentage 3.7 mg/dL 2.5-4.9 [facility] Work Phone: Basophils/100 WBC (Bld) 0.6 % 0-1 [facility] Work Phone: Chloride [Moles/Vol] 108 mmol/L 98-107 [facility] Work Phone: Cholesterol [Mass/Vol] 173 mg/dL <200 [facility] Work Phone: Comment on above: <200 mg/dL Desirable 200-240 mg/dL Borderline >240 mg/dL High Risk Eosinophils/100 WBC (Bld) 1.6 % 0-5 [facility] Work Phone: [phone] Glucose [Mass/Vol] 115 mg/dL 74-106 [facility] Work Phone: Comment on above: Fasting Glucose resu lt from 100 to 125 mg/dL suggests IMPAIRED HOMEOSTASIS per A.D.A. criteria. Neutrophils (Bld) [#/Vol] 5.7 10*3/uL 2.0-7.7 [facility] Work Phone: Neutrophils/100 WBC (Bld) 70.4 % 47-70 [facility] Work Phone: Potassium [Moles/Vol] 3.7 mmol/L 3.5-5.1 [facility] Work Phone: Sodium [Moles/Vol] 141 mmol/L 136-145 [facility] Work Phone: Triglyceride [Mass/Vol] 142 mg/dL <199 [facility] Work Phone: Comment on above: The drugs N-Acetylcy steine and Metamizole may falsely depress this assay.Serum Triglycerides Reference Interval Normal <150 mg/dL Borderline high 150 - 199 mg/dL High 200 - 499 mg/dL Very High > or = 500 mg/dL WBC (Bld) [#/Vol] 8.0 10*3/uL 4.4-11.0 [facility] Work Phone: Blood erythrocytes count (nu mber/volume)on 05-16-2022 RBC (Bld) [#/Vol] 4.83 10*6/uL 4.6-6.2 [facility] Work Phone: Blood hemoglobin measurement (mass/volume)on 05-16-2022 Hemoglobin (Bld) [Mass/Vol] 13.9 g/dL 13.0-16.5 [facility] Work Phone: Blood lymphocytes/100 leukoc yteson 05-16-2022 Lymphocytes/100 WBC (Bld) 18.4 % 19-41 [facility] Work Phone: Blood monocytes/100 leukocyt eson 05-16-2022 Monocytes/100 WBC (Bld) 8.8 % 0-10 [facility] Work Phone: Blood platelet mean volumeon 05-16-2022 Platelet mean volume (Bld) [Entitic vol] 10.3 fL 6.2-12.0 [facility] Work Phone: Determination of erythrocyte mean corpuscular volume (MCV)on 05-16-2022 MCV (RBC) [Entitic vol] 84.7 fL 80-94 [facility] Work Phone: Hematocrit Auto (Bld) [Volum e fraction]on 05-16-2022 Hematocrit (Bld) [Volume fraction] 40.9 % 40-54 [facility] Work Phone: Laboratory - Chemistry and C hemistry - challengeon 05-16-2022 CO2 [Moles/Vol] 26.0 mmol/L 21.0-32.0 [facility] Work Phone: Magnesium [Mass/Vol] 1.7 mg/dL 1.6-2.6 [facility] Work Phone: Laboratory - Hematology and Cell countson 05-16-2022 Erythrocyte distribution width (RBC) [Entitic vol] 37.5 fL 35.1-43.9 [facility] Work Phone: Erythrocyte distribution width (RBC) [Ratio] 12.4 % 11.6-14.6 [facility] Work Phone: Immature granulocytes/100 WBC (Bld) 0.200 % 0.0-0.9 [facility] Work Phone: Comment on above: IG% - Immature Granu locytes (promyelocytes, myelocytes and metamyelocytes) > 1% indicates that a LEFT SHIFT is Present. MCH (RBC) [Entitic mass] 28.8 pg 27.0-32.0 [facility] Work Phone: Nucleated RBC/100 WBC (Bld) [Ratio] 0 % 0-5 [facility] Work Phone: MCHC Auto (RBC) [Mass/Vol]on 05-16-2022 MCHC (RBC) [Mass/Vol] 34.0 g/dL 32-36 [facility] Work Phone: No Panel Informationon 05-16 Estimated GFR (MDRD) Amer 94 mL/min >60 [facility] Work Phone: Comment on above: GFR Calc Estimated GFR (MDRD) Non-Af Amer 78 mL/min >60 [facility] Work Phone: Comment on above: Non- GFR Calc Tacrolimus (Prograf) Level 5.9 ng/mL 2.0-20.0 [facility] Work Phone: Comment on above: Trough (immediately following transplant) 15.0 Trough (steady state, 2 weeks or more after transplant): 3.0 - 8.0 Performed by LC-MS/MS technology.Performed at: [address] [id number] Director: Martínez Orellana MD, Phone: [phone] Platelets bldon 05-16-2022 Platelets (Bld) [#/Vol] 229 10*3/uL 150-450 [facility] Work Phone: Serum or plasma calcium jenny urement (mass/volume)on 05-16-2022 Calcium [Mass/Vol] 9.1 mg/dL 8.5-10.1 [facility] Work Phone: Serum or plasma cholesterol in HDL measurement (mass/volume)on 05-16-2022 Cholesterol in HDL [Mass/Vol] 44 mg/dL >40 [facility] Work Phone: Comment on above: The drugs N-Acetylcy steine and Metamizole may falsely depress this assay. Reference Range HDL <40 mg/dL Low HDL Cholesterol HDL >or= 60 mg/dL High HDL Cholesterol Serum or plasma cholesterol in VLDL measurement (mass/volume)on 05-16-2022 Cholesterol in VLDL [Mass/Vol] 28 mg/dL 5-40 [facility] Work Phone: Serum or plasma creatinine m easurement (mass/volume)on 05-16-2022 Creatinine [Mass/Vol] 1.02 mg/dL 0.70-1.30 [facility] Work Phone: Comment on above: The validity of the calculated GFR & GFRAA in patients over 70 years has not been determined. Clinical correlation is essential. Serum or plasma low density lipoprotein (LDL) cholesterol measurement (mass/volume)on 05-16-2022 Cholesterol in LDL [Mass/Vol] 101 mg/dL 0-130 [facility] Work Phone: Serum or plasma urea nitroge n measurement (mass/volume)on 05-16-2022 Urea nitrogen [Mass/Vol] 14 mg/dL 7-18 [facility] Work Phone: Thin prep Papanicolaou smear with manual screeningon 05-16-2022 Thin prep Papanicolaou smear with manual screening 7 5-15 [facility] Work Phone: Whole blood hemoglobin A1c/t otal hemoglobin ratio (mass fraction)on 05-16-2022 HbA1c (Bld) [Mass fraction] 8.7 % 3.8-5.6 [facility] Comment on above: Normal < 5.7 % Predi abetic 5.7 - 6.4 % Diabetic >or= 6.5 % Please note range changes. Absolute lymphocyte counton 03-09-2022 Lymphocytes Auto (Unsp spec) [#/Vol] 1.42 10*3/uL 0.83-4.51 [facility] Work Phone: Basophil percentageon 2021 Basophil percentage 3.1 mg/dL 2.5-4.9 [facility] Work Phone: Basophils/100 WBC (Bld) 0.7 % 0-1 [facility] Work Phone: [phone] Chloride [Moles/Vol] 111 mmol/L 98-107 [facility] Work Phone: Eosinophils/100 WBC (Bld) 2.5 % 0-5 [facility] Work Phone: Glucose [Mass/Vol] 138 mg/dL 74-106 [facility] Work Phone: Comment on above: Fasting Glucose resu lt greater than or equal to 126 mg/dL suggests DIABETES MELLITUS per A.D.A. criteria. Neutrophils (Bld) [#/Vol] 4.5 10*3/uL 2.0-7.7 [facility] Work Phone: Neutrophils/100 WBC (Bld) 65.6 % 47-70 [facility] Work Phone: Potassium [Moles/Vol] 4.0 mmol/L 3.5-5.1 [facility] Work Phone: Sodium [Moles/Vol] 143 mmol/L 136-145 [facility] Work Phone: WBC (Bld) [#/Vol] 6.9 10*3/uL 4.4-11.0 [facility] Work Phone: Blood erythrocytes count (nu mber/volume)on 03-09-2022 RBC (Bld) [#/Vol] 4.59 10*6/uL 4.6-6.2 [facility] Work Phone: Blood hemoglobin measurement (mass/volume)on 03-09-2022 Hemoglobin (Bld) [Mass/Vol] 13.0 g/dL 13.0-16.5 [facility] Work Phone: Blood lymphocytes/100 leukoc yteson 03-09-2022 Lymphocytes/100 WBC (Bld) 20.6 % 19-41 [facility] Work Phone: Blood monocytes/100 leukocyt eson 03-09-2022 Monocytes/100 WBC (Bld) 10.2 % 0-10 [facility] Work Phone: Blood platelet mean volumeon 03-09-2022 Platelet mean volume (Bld) [Entitic vol] 10.5 fL 6.2-12.0 [facility] Work Phone: Determination of erythrocyte mean corpuscular volume (MCV)on 03-09-2022 MCV (RBC) [Entitic vol] 87.8 fL 80-94 [facility] Work Phone: Hematocrit Auto (Bld) [Volum e fraction]on 03-09-2022 Hematocrit (Bld) [Volume fraction] 40.3 % 40-54 [facility] Work Phone: Laboratory - Chemistry and C hemistry - challengeon 03-09-2022 CO2 [Moles/Vol] 26.0 mmol/L 21.0-32.0 [facility] Work Phone: Magnesium [Mass/Vol] 2.0 mg/dL 1.6-2.6 [facility] Work Phone: Laboratory - Hematology and Cell countson 03-09-2022 Erythrocyte distribution width (RBC) [Entitic vol] 41.4 fL 35.1-43.9 [facility] Work Phone: Erythrocyte distribution width (RBC) [Ratio] 12.9 % 11.6-14.6 [facility] Work Phone: Immature granulocytes/100 WBC (Bld) 0.400 % 0.0-0.9 [facility] Work Phone: Comment on above: IG% - Immature Granu locytes (promyelocytes, myelocytes and metamyelocytes) > 1% indicates that a LEFT SHIFT is Present. MCH (RBC) [Entitic mass] 28.3 pg 27.0-32.0 [facility] Work Phone: Nucleated RBC/100 WBC (Bld) [Ratio] 0 % 0-5 [facility] Work Phone: MCHC Auto (RBC) [Mass/Vol]on 03-09-2022 MCHC (RBC) [Mass/Vol] 32.3 g/dL 32-36 [facility] Work Phone: No Panel Informationon 03-09 Estimated GFR (MDRD) Amer 76 mL/min >60 [facility] Work Phone: Comment on above: GFR Calc Estimated GFR (MDRD) Non-Af Amer 62 mL/min >60 [facility] Work Phone: Comment on above: Non- GFR Calc Tacrolimus (Prograf) Level 6.7 ng/mL 2.0-20.0 [facility] Work Phone: Comment on above: Trough (immediately following transplant) 15.0 Trough (steady state, 2 weeks or more after transplant): 3.0 - 8.0 Performed by LC-MS/MS technology.Performed at: [address] [id number] Director: Martínez Orellana MD, Phone: [phone] Platelets bldon 03-09-2022 Platelets (Bld) [#/Vol] 259 10*3/uL 150-450 [facility] Work Phone: Serum or plasma calcium jenny urement (mass/volume)on 03-09-2022 Calcium [Mass/Vol] 9.4 mg/dL 8.5-10.1 [facility] Work Phone: Serum or plasma creatinine m easurement (mass/volume)on 03-09-2022 Creatinine [Mass/Vol] 1.23 mg/dL 0.70-1.30 [facility] Work Phone: Comment on above: The validity of the calculated GFR & GFRAA in patients over 70 years has not been determined. Clinical correlation is essential. Serum or plasma urea nitroge n measurement (mass/volume)on 03-09-2022 Urea nitrogen [Mass/Vol] 17 mg/dL 7-18 [facility] Work Phone: Thin prep Papanicolaou smear with manual screeningon 03-09-2022 Thin prep Papanicolaou smear with manual screening 6 5-15 [facility] Work Phone: Absolute lymphocyte counton 01-10-2022 Lymphocytes Auto (Unsp spec) [#/Vol] 1.45 10*3/uL 0.83-4.51 [facility] Work Phone: Basophil percentageon 2021 Basophil percentage 2.4 mg/dL 2.5-4.9 [facility] [place] Work Phone: Basophils/100 WBC (Bld) 0.6 % 0-1 [facility] Work Phone: Chloride [Moles/Vol] 112 mmol/L 98-107 [facility] Work Phone: Eosinophils/100 WBC (Bld) 2.5 % 0-5 [facility] Work Phone: Glucose [Mass/Vol] 129 mg/dL 74-106 [facility] Work Phone: Comment on above: Fasting Glucose resu lt greater than or equal to 126 mg/dL suggests DIABETES MELLITUS per A.D.A. criteria. Neutrophils (Bld) [#/Vol] 6.7 10*3/uL 2.0-7.7 [facility] Work Phone: Neutrophils/100 WBC (Bld) 72.8 % 47-70 [facility] Work Phone: Potassium [Moles/Vol] 3.8 mmol/L 3.5-5.1 [facility] Work Phone: Sodium [Moles/Vol] 142 mmol/L 136-145 [facility] Work Phone: WBC (Bld) [#/Vol] 9.3 10*3/uL 4.4-11.0 [facility] Work Phone: Blood erythrocytes count (nu mber/volume)on 01-10-2022 RBC (Bld) [#/Vol] 4.72 10*6/uL 4.6-6.2 [facility] Work Phone: Blood hemoglobin measurement (mass/volume)on 01-10-2022 Hemoglobin (Bld) [Mass/Vol] 13.5 g/dL 13.0-16.5 [facility] Work Phone: Blood lymphocytes/100 leukoc yteson 01-10-2022 Lymphocytes/100 WBC (Bld) 15.7 % 19-41 [facility] Work Phone: Blood monocytes/100 leukocyt eson 01-10-2022 Monocytes/100 WBC (Bld) 8.1 % 0-10 [facility] Work Phone: Blood platelet mean volumeon 01-10-2022 Platelet mean volume (Bld) [Entitic vol] 9.8 fL 6.2-12.0 [facility] Work Phone: Determination of erythrocyte mean corpuscular volume (MCV)on 01-10-2022 MCV (RBC) [Entitic vol] 86.0 fL 80-94 [facility] Work Phone: Hematocrit Auto (Bld) [Volum e fraction]on 01-10-2022 Hematocrit (Bld) [Volume fraction] 40.6 % 40-54 [facility] Work Phone: Laboratory - Chemistry and C hemistry - challengeon 01-10-2022 CO2 [Moles/Vol] 24.0 mmol/L 21.0-32.0 [facility] Work Phone: Magnesium [Mass/Vol] 2.1 mg/dL 1.6-2.6 [facility] Work Phone: Laboratory - Hematology and Cell countson 01-10-2022 Erythrocyte distribution width (RBC) [Entitic vol] 39.8 fL 35.1-43.9 [facility] Work Phone: Erythrocyte distribution width (RBC) [Ratio] 12.8 % 11.6-14.6 [facility] Work Phone: Immature granulocytes/100 WBC (Bld) 0.300 % 0.0-0.9 [facility] Work Phone: Comment on above: IG% - Immature Granu locytes (promyelocytes, myelocytes and metamyelocytes) > 1% indicates that a LEFT SHIFT is Present. MCH (RBC) [Entitic mass] 28.6 pg 27.0-32.0 [facility] Work Phone: Nucleated RBC/100 WBC (Bld) [Ratio] 0 % 0-5 [facility] Work Phone: MCHC Auto (RBC) [Mass/Vol]on 01-10-2022 MCHC (RBC) [Mass/Vol] 33.3 g/dL 32-36 [facility] Work Phone: No Panel Informationon 01-10 Estimated GFR (MDRD) Amer 85 mL/min >60 [facility] Work Phone: Comment on above: GFR Calc Estimated GFR (MDRD) Non-Af Amer 70 mL/min >60 [facility] Work Phone: Comment on above: Non- GFR Calc Tacrolimus (Prograf) Level 5.0 ng/mL 2.0-20.0 [facility] Work Phone: Comment on above: Trough (immediately following transplant) 15.0 Trough (steady state, 2 weeks or more after transplant): 3.0 - 8.0 Performed by LC-MS/MS technology.Performed at: [address] [id number] Director: Martínez Orellana MD, Phone: [phone] Platelets bldon 01-10-2022 Platelets (Bld) [#/Vol] 277 10*3/uL 150-450 [facility] Work Phone: Serum or plasma calcium jenny urement (mass/volume)on 01-10-2022 Calcium [Mass/Vol] 9.6 mg/dL 8.5-10.1 [facility] Work Phone: Serum or plasma creatinine m easurement (mass/volume)on 01-10-2022 Creatinine [Mass/Vol] 1.11 mg/dL 0.70-1.30 [facility] Work Phone: Comment on above: The validity of the calculated GFR & GFRAA in patients over 70 years has not been determined. Clinical correlation is essential. Serum or plasma urea nitroge n measurement (mass/volume)on 01-10-2022 Urea nitrogen [Mass/Vol] 13 mg/dL 7-18 [facility] Work Phone: Thin prep Papanicolaou smear with manual screeningon 01-10-2022 Thin prep Papanicolaou smear with manual screening 6 5-15 [facility] Work Phone: Absolute lymphocyte counton 11-08-2021 Lymphocytes Auto (Unsp spec) [#/Vol] 1.40 10*3/uL 0.83-4.51 [facility] Work Phone: Basophil percentageon 2021 Basophil percentage 0-5 SEEN /hpf 0-5 [facility] Work Phone: Basophils/100 WBC (Bld) 0.7 % 0-1 [facility] Work Phone: Bilirubin [Mass/Vol] 0.50 mg/dL 0.20-1.00 [facility] Work Phone: Comment on above: For patients on eltr ombopag therapy, use of Dimension [place] TBIL is not recommended. Chloride [Moles/Vol] 109 mmol/L 98-107 [facility] Work Phone: Cholesterol [Mass/Vol] 197 mg/dL <200 [facility] Work Phone: Comment on above: <200 mg/dL Desirable 200-240 mg/dL Borderline >240 mg/dL High Risk Eosinophils/100 WBC (Bld) 2.2 % 0-5 [facility] Work Phone: Glucose [Mass/Vol] 171 mg/dL 74-106 [facility] Work Phone: Comment on above: Fasting Glucose resu lt greater than or equal to 126 mg/dL suggests DIABETES MELLITUS per A.D.A. criteria. Neutrophils (Bld) [#/Vol] 4.9 10*3/uL 2.0-7.7 [facility] Work Phone: Neutrophils/100 WBC (Bld) 68.2 % 47-70 [facility] Work Phone: [phone] Potassium [Moles/Vol] 4.1 mmol/L 3.5-5.1 [facility] Work Phone: Protein [Mass/Vol] 6.9 g/dL 6.4-8.2 [facility] Work Phone: Sodium [Moles/Vol] 140 mmol/L 136-145 [facility] Work Phone: Triglyceride [Mass/Vol] 188 mg/dL <199 [facility] Work Phone: Comment on above: The drugs N-Acetylcy steine and Metamizole may falsely depress this assay.Serum Triglycerides Reference Interval Normal <150 mg/dL Borderline high 150 - 199 mg/dL High 200 - 499 mg/dL Very High > or = 500 mg/dL WBC (Bld) [#/Vol] 7.2 10*3/uL 4.4-11.0 [facility] Work Phone: Bilirubin Test strip Ql (U)o n 11-08-2021 Bilirubin Ql (U) Negative Negative [facility] Work Phone: Blood erythrocytes count (nu mber/volume)on 11-08-2021 RBC (Bld) [#/Vol] 4.89 10*6/uL 4.6-6.2 [facility] Work Phone: Blood hemoglobin measurement (mass/volume)on 11-08-2021 Hemoglobin (Bld) [Mass/Vol] 14.1 g/dL 13.0-16.5 [facility] Work Phone: Blood lymphocytes/100 leukoc yteson 11-08-2021 Lymphocytes/100 WBC (Bld) 19.4 % 19-41 [facility] Work Phone: Blood monocytes/100 leukocyt eson 11-08-2021 Monocytes/100 WBC (Bld) 8.9 % 0-10 [facility] Work Phone: Blood platelet mean volumeon 11-08-2021 Platelet mean volume (Bld) [Entitic vol] 10.2 fL 6.2-12.0 [facility] Work Phone: Determination of erythrocyte mean corpuscular volume (MCV)on 11-08-2021 MCV (RBC) [Entitic vol] 85.5 fL 80-94 [facility] Work Phone: Hematocrit Auto (Bld) [Volum e fraction]on 11-08-2021 Hematocrit (Bld) [Volume fraction] 41.8 % 40-54 [facility] Work Phone: Ketones Test strip Ql (U)on 11-08-2021 Ketones Ql (U) Negative Negative [facility] Work Phone: Laboratory - Chemistry and C hemistry - challengeon 11-08-2021 ALP [Catalytic activity/Vol] 71 U/L 45-117 [facility] Work Phone: ALT [Catalytic activity/Vol] 25 U/L 16-61 [facility] Work Phone: CO2 [Moles/Vol] 23.0 mmol/L 21.0-32.0 [facility] Work Phone: Globulin (S) [Mass/Vol] 3.0 g/dL 2.2-4.2 [facility] Work Phone: Urea nitrogen/Creatinine [Mass ratio] 12.6 mg/mg 10-20 [facility] Work Phone: Laboratory - Hematology and Cell countson 11-08-2021 Erythrocyte distribution width (RBC) [Entitic vol] 39.5 fL 35.1-43.9 [facility] Work Phone: Erythrocyte distribution width (RBC) [Ratio] 12.8 % 11.6-14.6 [facility] Work Phone: Immature granulocytes/100 WBC (Bld) 0.600 % 0.0-0.9 [facility] Work Phone: Comment on above: IG% - Immature Granu locytes (promyelocytes, myelocytes and metamyelocytes) > 1% indicates that a LEFT SHIFT is Present. MCH (RBC) [Entitic mass] 28.8 pg 27.0-32.0 [facility] Work Phone: Nucleated RBC/100 WBC (Bld) [Ratio] 0 % 0-5 [facility] Work Phone: MCHC Auto (RBC) [Mass/Vol]on 11-08-2021 MCHC (RBC) [Mass/Vol] 33.7 g/dL 32-36 [facility] Work Phone: Mucus LM Ql (Urine sed)on Mucus Ql (Urine sed) 0 SEEN /hpf [facility] Work Phone: Nitrite Test strip Ql (U)on 11-08-2021 Nitrite Ql (U) Negative Negative [facility] Work Phone: No Panel Informationon 11-08 Estimated GFR (MDRD) Amer 85 mL/min >60 [facility] Work Phone: Comment on above: GFR Calc Estimated GFR (MDRD) Non-Af Amer 70 mL/min >60 [facility] Work Phone: Comment on above: Non- GFR Calc Prostate Specific Antigen Total 2.01 ng/mL 0.0-4.0 [facility] Work Phone: Comment on above: This test was perfor med using the TPSA assay method for [employer] chemistry system. Values obtained with differentassay methods cannot be used interchangably.When changing PSA assays in the course of monitoring apatient, additional sequential testing should be carriedout to confirm baseline values. Tacrolimus (Prograf) Level 6.8 ng/mL 2.0-20.0 [facility] Work Phone: Comment on above: Trough (immediately following transplant) 15.0 Trough (steady state, 2 weeks or more after transplant): 3.0 - 8.0 Performed by LC-MS/MS technology.Performed at: [facility] [id number] Director: Martínez Orellana MD, Phone: [phone] Urine Microalbumin/Creatinine Ratio 24.1 mg/g CRE <30 [facility] Work Phone: Vitamin D 25-Hydroxy 36.2 ng/mL [facility] Work Phone: Comment on above: Vitamin D 25(OH) Sta tus Range Deficiency <20 ng/mL (50nmol/L) Insufficiency 20 - 30 ng/mL (50 - 75 nmol/L) Sufficiency 30 - 100 ng/mL (75 - 250 nmol/L) Toxicity >100 ng/mL (>250 nmol/L) Platelets bldon 11-08-2021 Platelets (Bld) [#/Vol] 240 10*3/uL 150-450 [facility] Work Phone: Protein Test strip Ql (U)on 11-08-2021 Protein Ql (U) 15 mg/dl Negative [facility] Work Phone: Serum or plasma albumin jenny urement (mass/volume)on 11-08-2021 Albumin [Mass/Vol] 3.9 g/dL 3.2-5.0 [facility] Work Phone: Serum or plasma albumin/glob ulin mass ratioon 11-08-2021 Albumin/Globulin [Mass ratio] 1.3 {ratio} 0.9-2.4 [facility] Work Phone: Serum or plasma calcium jenny urement (mass/volume)on 11-08-2021 Calcium [Mass/Vol] 8.8 mg/dL 8.5-10.1 [facility] Work Phone: Serum or plasma cholesterol in HDL measurement (mass/volume)on 11-08-2021 Cholesterol in HDL [Mass/Vol] 43 mg/dL >40 [facility] Work Phone: Comment on above: The drugs N-Acetylcy steine and Metamizole may falsely depress this assay. Reference Range HDL <40 mg/dL Low HDL Cholesterol HDL >or= 60 mg/dL High HDL Cholesterol Serum or plasma cholesterol in VLDL measurement (mass/volume)on 11-08-2021 Cholesterol in VLDL [Mass/Vol] 38 mg/dL 5-40 [facility] Work Phone: Serum or plasma creatinine m easurement (mass/volume)on 11-08-2021 Creatinine [Mass/Vol] 1.11 mg/dL 0.70-1.30 [facility] Work Phone: Comment on above: The validity of the calculated GFR & GFRAA in patients over 70 years has not been determined. Clinical correlation is essential. Serum or plasma low density lipoprotein (LDL) cholesterol measurement (mass/volume)on 11-08-2021 Cholesterol in LDL [Mass/Vol] 116 mg/dL 0-130 [facility] Work Phone: Serum or plasma urea nitroge n measurement (mass/volume)on 11-08-2021 Urea nitrogen [Mass/Vol] 14 mg/dL 7-18 [facility] Work Phone: Squamous epithelial cells de tection in urine sediment by light microscopyon 11-08-2021 Epithelial cells.squamous LM Ql (Urine sed) 0 SEEN /hpf 0-5 [facility] Work Phone: Thin prep Papanicolaou smear with manual screeningon 11-08-2021 Thin prep Papanicolaou smear with manual screening 21 U/L 15-37 [facility] Work Phone: Thin prep Papanicolaou smear with manual screening 8 5-15 [facility] Work Phone: Thin prep Papanicolaou smear with manual screening 33.3 mg/L NO RANGE EST. [facility] Work Phone: Urine blood detectionon 05-0 RBC Ql (U) Negative Negative [facility] Work Phone: RBC Ql (U) 0 SEEN /hpf 0-5 [facility] Work Phone: Urine clarityon 11-08-2021 Clarity (U) Clear Clear [facility] Work Phone: Urine color determinationon 11-08-2021 Color (U) Yellow Yellow [facility] Work Phone: Urine creatinine measurement (mass/volume)on 11-08-2021 Creatinine (U) [Mass/Vol] 138.00 mg/dL NO RANGE EST. [facility] Work Phone: Urine glucose detectionon Glucose Ql (U) Normal mg/dl Normal [facility] Work Phone: Urine leukocyte esterase det ection by dipstickon 11-08-2021 Leukocyte esterase Test strip Ql (U) 25 /ul Negative [facility] Work Phone: Urine pHon 11-08-2021 pH (U) 6.0 [pH] 5.0 - 8.0 [facility] Work Phone: Urine sediment bacteria coun t by microscopy (number/high power field)on 11-08-2021 Bacteria LM.HPF (Urine sed) [#/Area] 0 /[HPF] None Seen [facility] Work Phone: Urine specific gravity measu rementon 11-08-2021 Specific gravity (U) [Rel density] 1.015 1.002-1.03 0 [facility] Work Phone: Urobilinogen Auto test strip Ql (U)on 11-08-2021 Urobilinogen Ql (U) Normal mg/dl Normal [facility] Work Phone: Whole blood hemoglobin A1c/t otal hemoglobin ratio (mass fraction)on 11-08-2021 HbA1c (Bld) [Mass fraction] 9.0 % 3.8-5.6 [facility] Work Phone: Comment on above: Normal < 5.7 % Predi abetic 5.7 - 6.4 % Diabetic >or= 6.5 % Please note range changes. Absolute lymphocyte counton 10-11-2021 Lymphocytes Auto (Unsp spec) [#/Vol] 1.27 10*3/uL 0.83-4.51 [facility] Work Phone: Basophil percentageon 2021 Basophil percentage 2.8 mg/dL 2.5-4.9 [facility] Work Phone: Basophils/100 WBC (Bld) 0.7 % 0-1 [facility] Work Phone: Bilirubin [Mass/Vol] 0.40 mg/dL 0.20-1.00 [facility] Work Phone: Comment on above: For patients on eltr ombopag therapy, use of Dimension [place] TBIL is not recommended. Chloride [Moles/Vol] 109 mmol/L 98-107 [facility] Work Phone: Cholesterol [Mass/Vol] 175 mg/dL <200 [facility] Work Phone: Comment on above: <200 mg/dL Desirable 200-240 mg/dL Borderline >240 mg/dL High Risk Eosinophils/100 WBC (Bld) 1.9 % 0-5 [facility] Work Phone: Glucose [Mass/Vol] 176 mg/dL 74-106 [facility] Work Phone: Comment on above: Fasting Glucose resu lt greater than or equal to 126 mg/dL suggests DIABETES MELLITUS per A.D.A. criteria. Neutrophils (Bld) [#/Vol] 4.7 10*3/uL 2.0-7.7 [facility] Work Phone: Neutrophils/100 WBC (Bld) 69.0 % 47-70 [facility] Work Phone: [phone] Potassium [Moles/Vol] 4.0 mmol/L 3.5-5.1 [facility] Work Phone: Protein [Mass/Vol] 7.2 g/dL 6.4-8.2 [facility] Work Phone: Sodium [Moles/Vol] 139 mmol/L 136-145 [facility] Work Phone: Triglyceride [Mass/Vol] 153 mg/dL <199 [facility] Work Phone: Comment on above: The drugs N-Acetylcy steine and Metamizole may falsely depress this assay.Serum Triglycerides Reference Interval Normal <150 mg/dL Borderline high 150 - 199 mg/dL High 200 - 499 mg/dL Very High > or = 500 mg/dL WBC (Bld) [#/Vol] 6.8 10*3/uL 4.4-11.0 [facility] Work Phone: Blood erythrocytes count (nu mber/volume)on 10-11-2021 RBC (Bld) [#/Vol] 4.87 10*6/uL 4.6-6.2 [facility] Work Phone: Blood hemoglobin measurement (mass/volume)on 10-11-2021 Hemoglobin (Bld) [Mass/Vol] 13.7 g/dL 13.0-16.5 [facility] Work Phone: Blood lymphocytes/100 leukoc yteson 10-11-2021 Lymphocytes/100 WBC (Bld) 18.8 % 19-41 [facility] Work Phone: Blood monocytes/100 leukocyt eson 10-11-2021 Monocytes/100 WBC (Bld) 9.2 % 0-10 [facility] Work Phone: Blood platelet mean volumeon 10-11-2021 Platelet mean volume (Bld) [Entitic vol] 10.2 fL 6.2-12.0 [facility] Work Phone: Determination of erythrocyte mean corpuscular volume (MCV)on 10-11-2021 MCV (RBC) [Entitic vol] 84.4 fL 80-94 [facility] Work Phone: Hematocrit Auto (Bld) [Volum e fraction]on 10-11-2021 Hematocrit (Bld) [Volume fraction] 41.1 % 40-54 [facility] Work Phone: Iron measurement (mass/mass) on 10-11-2021 Iron (Unsp spec) [Mass/Mass] 100 ug/dL 65-175 [facility] Work Phone: Laboratory - Chemistry and C hemistry - challengeon 10-11-2021 ALP [Catalytic activity/Vol] 71 U/L 45-117 [facility] Work Phone: ALT [Catalytic activity/Vol] 24 U/L 16-61 [facility] Work Phone: CO2 [Moles/Vol] 25.0 mmol/L 21.0-32.0 [facility] Work Phone: Globulin (S) [Mass/Vol] 3.3 g/dL 2.2-4.2 [facility] Work Phone: Magnesium [Mass/Vol] 1.7 mg/dL 1.6-2.[address] [facility] Work Phone: Transferrin [Mass/Vol] 200 mg/dL 177-329 [facility] Work Phone: Comment on above: Performed at: [address] [id number] Director: Martínez Orellana MD, Phone: [phone] at: [facility] [id number] Director: Brad Berkowitz PhD, Phone: [phone] Urea nitrogen/Creatinine [Mass ratio] 14.8 mg/mg 10-20 [facility] Work Phone: Laboratory - Hematology and Cell countson 10-11-2021 Erythrocyte distribution width (RBC) [Entitic vol] 38.8 fL 35.1-43.9 [facility] Work Phone: Erythrocyte distribution width (RBC) [Ratio] 12.8 % 11.6-14.6 [facility] Work Phone: Immature granulocytes/100 WBC (Bld) 0.400 % 0.0-0.9 [facility] Work Phone: Comment on above: IG% - Immature Granu locytes (promyelocytes, myelocytes and metamyelocytes) > 1% indicates that a LEFT SHIFT is Present. MCH (RBC) [Entitic mass] 28.1 pg 27.0-32.0 [facility] Work Phone: Nucleated RBC/100 WBC (Bld) [Ratio] 0 % 0-5 [facility] Work Phone: MCHC Auto (RBC) [Mass/Vol]on 10-11-2021 MCHC (RBC) [Mass/Vol] 33.3 g/dL 32-36 [facility] Work Phone: No Panel Informationon 10-11 Estimated GFR (MDRD) Amer 88 mL/min >60 [facility] Work Phone: Comment on above: GFR Calc Estimated GFR (MDRD) Non-Af Amer 73 mL/min >60 [facility] Work Phone: Comment on above: Non- GFR Calc Miscellaneous Test See comment [facility] Work Phone: Comment on above: TEST RESULT LIMITSBK V Quant PCRBKV DNA, Quant PCR, Plasma Negative IU/mL Negative No BK DNA detected. The linear range of the assay is 22 - 100,000,000 IU/mL. _ TESTING PERFORMED AT [facility]. ORIGINAL REPORT ON FILE IN LAB CONTAINS ADDITIONAL TEST SITE INFORMATION. Tacrolimus (Prograf) Level 5.6 ng/mL 2.0-20.0 [facility] Work Phone: Comment on above: Trough (immediately following transplant) 15.0 Trough (steady state, 2 weeks or more after transplant): 3.0 - 8.0 Performed by LC-MS/MS technology. Total Iron Binding Capacity 263 ug/dL 250-450 [facility] Work Phone: Platelets bldon 10-11-2021 Platelets (Bld) [#/Vol] 242 10*3/uL 150-450 [facility] Work Phone: Serum or plasma albumin jenny urement (mass/volume)on 10-11-2021 Albumin [Mass/Vol] 3.9 g/dL 3.2-5.0 [facility] Work Phone: Serum or plasma albumin/glob ulin mass ratioon 10-11-2021 Albumin/Globulin [Mass ratio] 1.2 {ratio} 0.9-2.4 [facility] Work Phone: Serum or plasma calcium jenny urement (mass/volume)on 10-11-2021 Calcium [Mass/Vol] 9.0 mg/dL 8.5-10.1 [facility] Work Phone: Serum or plasma cholesterol in HDL measurement (mass/volume)on 10-11-2021 Cholesterol in HDL [Mass/Vol] 43 mg/dL >40 [facility] Work Phone: Comment on above: The drugs N-Acetylcy steine and Metamizole may falsely depress this assay. Reference Range HDL <40 mg/dL Low HDL Cholesterol HDL >or= 60 mg/dL High HDL Cholesterol Serum or plasma cholesterol in VLDL measurement (mass/volume)on 10-11-2021 Cholesterol in VLDL [Mass/Vol] 31 mg/dL 5-40 [facility] Work Phone: Serum or plasma creatinine m easurement (mass/volume)on 10-11-2021 Creatinine [Mass/Vol] 1.08 mg/dL 0.70-1.30 [facility] Work Phone: Comment on above: The validity of the calculated GFR & GFRAA in patients over 70 years has not been determined. Clinical correlation is essential. Serum or plasma ferritin britany surement (mass/volume)on 10-11-2021 Ferritin [Mass/Vol] 597 ng/mL 26-388 [facility] Work Phone: Serum or plasma low density lipoprotein (LDL) cholesterol measurement (mass/volume)on 10-11-2021 Cholesterol in LDL [Mass/Vol] 101 mg/dL 0-130 [facility] Work Phone: Serum or plasma urea nitroge n measurement (mass/volume)on 10-11-2021 Urea nitrogen [Mass/Vol] 16 mg/dL 7-18 [facility] Work Phone: Serum or plasma uric acid me asurement (mass/volume)on 10-11-2021 Urate [Mass/Vol] 5.9 mg/dL 3.5-7.2 [facility] Work Phone: Comment on above: The drugs N-Acetylcy steine and Metamizole may falsely depress this assay. Thin prep Papanicolaou smear with manual screeningon 10-11-2021 Thin prep Papanicolaou smear with manual screening 18 U/L 15-37 [facility] Work Phone: Thin prep Papanicolaou smear with manual screening 5 5-15 [facility] Work Phone: Urine creatinine measurement (mass/volume)on 10-11-2021 Creatinine (U) [Mass/Vol] 99.10 mg/dL NO RANGE EST. [facility] Work Phone: Urine protein measurement (m ass/volume)on 10-11-2021 Protein (U) [Mass/Vol] 15.8 mg/dL 0.0-11.8 [facility] Work Phone: Urine protein/creatinine mas s ratioon 10-11-2021 Protein/Creatinine (U) [Mass ratio] 159 mg/g CRE 0-200 [facility] Work Phone: [phone] Absolute lymphocyte counton 09-06-2021 Lymphocytes Auto (Unsp spec) [#/Vol] 1.33 10*3/uL 0.83-4.51 [facility] Work Phone: Basophil percentageon 2021 Basophils/100 WBC (Bld) 0.6 % 0-1 [facility] Work Phone: Chloride [Moles/Vol] 110 mmol/L 98-107 [facility] Work Phone: [phone] Eosinophils/100 WBC (Bld) 1.7 % 0-5 [facility] Work Phone: Glucose [Mass/Vol] 100 mg/dL 74-106 [facility] Work Phone: Comment on above: Fasting Glucose resu lt from 100 to 125 mg/dL suggests IMPAIRED HOMEOSTASIS per A.D.A. criteria. Neutrophils (Bld) [#/Vol] 4.4 10*3/uL 2.0-7.7 [facility] Work Phone: [phone] Neutrophils/100 WBC (Bld) 66.9 % 47-70 [facility] Work Phone: [phone] Potassium [Moles/Vol] 3.9 mmol/L 3.5-5.1 [facility] Work Phone: Sodium [Moles/Vol] 142 mmol/L 136-145 [facility] Work Phone: WBC (Bld) [#/Vol] 6.5 10*3/uL 4.4-11.0 [facility] Work Phone: Blood erythrocytes count (nu mber/volume)on 09-06-2021 RBC (Bld) [#/Vol] 4.85 10*6/uL 4.6-6.2 [facility] Work [facility]: Blood hemoglobin measurement (mass/volume)on 09-06-2021 Hemoglobin (Bld) [Mass/Vol] 13.9 g/dL 13.0-16.5 [facility] Work Phone: Blood lymphocytes/100 leukoc yteson 09-06-2021 Lymphocytes/100 WBC (Bld) 20.5 % 19-41 [facility] Work Phone: Blood monocytes/100 leukocyt eson 09-06-2021 Monocytes/100 WBC (Bld) 9.8 % 0-10 [facility] Work Phone: Blood platelet mean volumeon 09-06-2021 Platelet mean volume (Bld) [Entitic vol] 9.6 fL 6.2-12.0 [facility] Work Phone: Determination of erythrocyte mean corpuscular volume (MCV)on 09-06-2021 MCV (RBC) [Entitic vol] 84.5 fL 80-94 [facility] Work Phone: Hematocrit Auto (Bld) [Volum e fraction]on 09-06-2021 Hematocrit (Bld) [Volume fraction] 41.0 % 40-54 [facility] Work Phone: Laboratory - Chemistry and C hemistry - challengeon 09-06-2021 CO2 [Moles/Vol] 27.0 mmol/L 21.0-32.0 [facility] Work Phone: Laboratory - Hematology and Cell countson 09-06-2021 Erythrocyte distribution width (RBC) [Entitic vol] 38.7 fL 35.1-43.9 [facility] Work Phone: Erythrocyte distribution width (RBC) [Ratio] 12.7 % 11.6-14.6 [facility] Work Phone: Immature granulocytes/100 WBC (Bld) 0.500 % 0.0-0.9 [facility] Work Phone: Comment on above: IG% - Immature Granu locytes (promyelocytes, myelocytes and metamyelocytes) > 1% indicates that a LEFT SHIFT is Present. MCH (RBC) [Entitic mass] 28.7 pg 27.0-32.0 [facility] Work Phone: Nucleated RBC/100 WBC (Bld) [Ratio] 0 % 0-5 [facility] Work Phone: MCHC Auto (RBC) [Mass/Vol]on 09-06-2021 MCHC (RBC) [Mass/Vol] 33.9 g/dL 32-36 [facility] Work Phone: No Panel Informationon 09-06 Estimated GFR (MDRD) Amer 80 mL/min >60 [facility] Work Phone: Comment on above: GFR Calc Estimated GFR (MDRD) Non-Af Amer 66 mL/min >60 [facility] Work Phone: Comment on above: Non- GFR Calc Tacrolimus (Prograf) Level 6.2 ng/mL [facility] Work Phone: Comment on above: Trough (immediately following transplant) 15.0 Trough (steady state, 2 weeks or more after transplant): 3.0 - 8.0 Performed by LC-MS/MS technology.Performed at: [address] [id number] Director: Martínez Orellana MD, Phone: [phone] Platelets bldon 09-06-2021 Platelets (Bld) [#/Vol] 235 10*3/uL 150-450 [facility] Work Phone: Serum or plasma creatinine m easurement (mass/volume)on 09-06-2021 Creatinine [Mass/Vol] 1.17 mg/dL 0.70-1.30 [facility] Work Phone: Comment on above: The validity of the calculated GFR & GFRAA in patients over 70 years has not been determined. Clinical correlation is essential. Serum or plasma urea nitroge n measurement (mass/volume)on 09-06-2021 Urea nitrogen [Mass/Vol] 16 mg/dL 7-18 [facility] Work Phone: Thin prep Papanicolaou smear with manual screeningon 09-06-2021 Thin prep Papanicolaou smear with manual screening 5 5-15 [facility] Work Phone: Absolute lymphocyte counton 08-09-2021 Lymphocytes Auto (Unsp spec) [#/Vol] 1.44 10*3/uL 0.83-4.51 [facility] Work Phone: Basophil percentageon 2021 Basophils/100 WBC (Bld) 0.6 % 0-1 [facility] Work Phone: Chloride [Moles/Vol] 109 mmol/L 98-107 [facility] Work Phone: Eosinophils/100 WBC (Bld) 1.8 % 0-5 [facility] Work Phone: Glucose [Mass/Vol] 135 mg/dL 74-106 [facility] Work Phone: Comment on above: Fasting Glucose resu lt greater than or equal to 126 mg/dL suggests DIABETES MELLITUS per A.D.A. criteria. Neutrophils (Bld) [#/Vol] 4.3 10*3/uL 2.0-7.7 [facility] Work Phone: Neutrophils/100 WBC (Bld) 64.8 % 47-70 [facility] Work Phone: Potassium [Moles/Vol] 4.1 mmol/L 3.5-5.1 [facility] Work Phone: [phone] Sodium [Moles/Vol] 143 mmol/L 136-145 [facility] Work Phone: WBC (Bld) [#/Vol] 6.7 10*3/uL 4.4-11.0 [facility] Work Phone: Blood erythrocytes count (nu mber/volume)on 08-09-2021 RBC (Bld) [#/Vol] 4.83 10*6/uL 4.6-6.2 [facility] Work Phone: Blood hemoglobin measurement (mass/volume)on 08-09-2021 Hemoglobin (Bld) [Mass/Vol] 13.8 g/dL 13.0-16.5 [facility] Work Phone: Blood lymphocytes/100 leukoc yteson 08-09-2021 Lymphocytes/100 WBC (Bld) 21.6 % 19-41 [facility] Work Phone: Blood monocytes/100 leukocyt eson 08-09-2021 Monocytes/100 WBC (Bld) 10.8 % 0-10 [facility] Work Phone: Blood platelet mean volumeon 08-09-2021 Platelet mean volume (Bld) [Entitic vol] 10.3 fL 6.2-12.0 [facility] Work Phone: Determination of erythrocyte mean corpuscular volume (MCV)on 08-09-2021 MCV (RBC) [Entitic vol] 86.1 fL 80-94 [facility] Work Phone: Hematocrit Auto (Bld) [Volum e fraction]on 08-09-2021 Hematocrit (Bld) [Volume fraction] 41.6 % 40-54 [facility] Work Phone: Laboratory - Chemistry and C hemistry - challengeon 08-09-2021 CO2 [Moles/Vol] 26.0 mmol/L 21.0-32.0 [facility] Work Phone: Laboratory - Hematology and Cell countson 08-09-2021 Erythrocyte distribution width (RBC) [Entitic vol] 40.3 fL 35.1-43.9 [facility] Work Phone: Erythrocyte distribution width (RBC) [Ratio] 12.9 % 11.6-14.6 [facility] Work Phone: Immature granulocytes/100 WBC (Bld) 0.400 % 0.0-0.9 [facility] Work Phone: Comment on above: IG% - Immature Granu locytes (promyelocytes, myelocytes and metamyelocytes) > 1% indicates that a LEFT SHIFT is Present. MCH (RBC) [Entitic mass] 28.6 pg 27.0-32.0 [facility] Work Phone: Nucleated RBC/100 WBC (Bld) [Ratio] 0 % 0-5 [facility] Work Phone: MCHC Auto (RBC) [Mass/Vol]on 08-09-2021 MCHC (RBC) [Mass/Vol] 33.2 g/dL 32-36 [facility] Work Phone: No Panel Informationon 08-09 Estimated GFR (MDRD) Amer 88 mL/min >60 [facility] Work Phone: Comment on above: GFR Calc Estimated GFR (MDRD) Non-Af Amer 73 mL/min >60 [facility] Work Phone: Comment on above: Non- GFR Calc Tacrolimus (Prograf) Level 5.6 ng/mL [facility] Work Phone: Comment on above: Trough (immediately following transplant) 15.0 Trough (steady state, 2 weeks or more after transplant): 3.0 - 8.0 Performed by LC-MS/MS technology.Performed at: [address] [id number] Director: Martínez Orellana MD, Phone: [phone] Platelets bldon 08-09-2021 Platelets (Bld) [#/Vol] 232 10*3/uL 150-450 [facility] Work Phone: Serum or plasma creatinine m easurement (mass/volume)on 08-09-2021 Creatinine [Mass/Vol] 1.08 mg/dL 0.70-1.30 [facility] Work Phone: Comment on above: The validity of the calculated GFR & GFRAA in patients over 70 years has not been determined. Clinical correlation is essential. Serum or plasma urea nitroge n measurement (mass/volume)on 08-09-2021 Urea nitrogen [Mass/Vol] 19 mg/dL 7-18 [facility] Work Phone: Thin prep Papanicolaou smear with manual screeningon 08-09-2021 Thin prep Papanicolaou smear with manual screening 8 5-15 [facility] Work Phone: Absolute lymphocyte counton 07-11-2021 Lymphocytes Auto (Unsp spec) [#/Vol] 1.23 10*3/uL 0.83-4.51 [facility] Work Phone: Basophil percentageon 2021 Basophils/100 WBC (Bld) 0.7 % 0-1 [facility] Work Phone: Bilirubin [Mass/Vol] 0.40 mg/dL 0.20-1.00 [facility] Work Phone: Comment on above: For patients on eltr ombopag therapy, use of Dimension [place] TBIL is not recommended. Chloride [Moles/Vol] 111 mmol/L 98-107 [facility] Work Phone: Eosinophils/100 WBC (Bld) 1.9 % 0-5 [facility] Work Phone: Glucose [Mass/Vol] 148 mg/dL 74-106 [facility] Work Phone: Comment on above: Fasting Glucose resu lt greater than or equal to 126 mg/dL suggests DIABETES MELLITUS per A.D.A. criteria.Please note revised GLUCOSE reference range effective 2017. Neutrophils (Bld) [#/Vol] 5.2 10*3/uL 2.0-7.7 [facility] Work Phone: Neutrophils/100 WBC (Bld) 70.2 % 47-70 [facility] Work Phone: Potassium [Moles/Vol] 4.1 mmol/L 3.5-5.1 [facility] Work Phone: Sodium [Moles/Vol] 143 mmol/L 136-145 [facility] Work Phone: WBC (Bld) [#/Vol] 7.4 10*3/uL 4.4-11.0 [facility] Work Phone: Blood erythrocytes count (nu mber/volume)on 07-11-2021 RBC (Bld) [#/Vol] 4.66 10*6/uL 4.6-6.2 [facility] Work Phone: Blood hemoglobin measurement (mass/volume)on 07-11-2021 Hemoglobin (Bld) [Mass/Vol] 13.1 g/dL 13.0-16.5 [facility] Work Phone: Blood lymphocytes/100 leukoc yteson 07-11-2021 Lymphocytes/100 WBC (Bld) 16.7 % 19-41 [facility] Work Phone: Blood monocytes/100 leukocyt eson 07-11-2021 Monocytes/100 WBC (Bld) 10.1 % 0-10 [facility] Work Phone: Blood platelet mean volumeon 07-11-2021 Platelet mean volume (Bld) [Entitic vol] 9.7 fL 6.2-12.0 [facility] Work Phone: Determination of erythrocyte mean corpuscular volume (MCV)on 07-11-2021 MCV (RBC) [Entitic vol] 86.9 fL 80-94 [facility] Work Phone: Hematocrit Auto (Bld) [Volum e fraction]on 07-11-2021 Hematocrit (Bld) [Volume fraction] 40.5 % 40-54 [facility] Work Phone: Laboratory - Chemistry and C hemistry - challengeon 07-11-2021 ALT [Catalytic activity/Vol] 24 U/L 16-61 [facility] Work Phone: CO2 [Moles/Vol] 26.0 mmol/L 21.0-32.0 [facility] Work Phone: Magnesium [Mass/Vol] 2.0 mg/dL 1.6-2.6 [facility] Work Phone: Laboratory - Hematology and Cell countson 07-11-2021 Erythrocyte distribution width (RBC) [Entitic vol] 40.1 fL 35.1-43.9 [facility] Work Phone: Erythrocyte distribution width (RBC) [Ratio] 12.8 % 11.6-14.6 [facility] Work Phone: Immature granulocytes/100 WBC (Bld) 0.400 % 0.0-0.9 [facility] Work Phone: Comment on above: IG% - Immature Granu locytes (promyelocytes, myelocytes and metamyelocytes) > 1% indicates that a LEFT SHIFT is Present. MCH (RBC) [Entitic mass] 28.1 pg 27.0-32.0 [facility] Work Phone: Nucleated RBC/100 WBC (Bld) [Ratio] 0 % 0-5 [facility] Work Phone: MCHC Auto (RBC) [Mass/Vol]on 07-11-2021 MCHC (RBC) [Mass/Vol] 32.3 g/dL 32-36 [facility] Work Phone: No Panel Informationon 07-11 Estimated GFR (MDRD) Amer 88 mL/min >60 [facility] Work Phone: Comment on above: GFR Calc Estimated GFR (MDRD) Non-Af Amer 73 mL/min >60 [facility] Work Phone: Comment on above: Non- GFR Calc Tacrolimus (Prograf) Level 4.8 ng/mL [facility] Work Phone: Comment on above: Trough (immediately following transplant) 15.0 Trough (steady state, 2 weeks or more after transplant): 3.0 - 8.0 Performed by LC-MS/MS technology.Performed at: [address] [id number] Director: Martínez Orellana MD, Phone: [phone] Platelets bldon 07-11-2021 Platelets (Bld) [#/Vol] 237 10*3/uL 150-450 [facility] Work Phone: Serum or plasma albumin jenny urement (mass/volume)on 07-11-2021 Albumin [Mass/Vol] 3.8 g/dL 3.2-5.0 [facility] Work Phone: Serum or plasma calcium jenny urement (mass/volume)on 07-11-2021 Calcium [Mass/Vol] 9.3 mg/dL 8.5-10.1 [facility] Work Phone: Serum or plasma creatinine m easurement (mass/volume)on 07-11-2021 Creatinine [Mass/Vol] 1.08 mg/dL 0.70-1.30 [facility] Work Phone: Comment on above: The validity of the calculated GFR & GFRAA in patients over 70 years has not been determined. Clinical correlation is essential. Serum or plasma urea nitroge n measurement (mass/volume)on 07-11-2021 Urea nitrogen [Mass/Vol] 18 mg/dL 7-18 [facility] Work Phone: Thin prep Papanicolaou smear with manual screeningon 07-11-2021 Thin prep Papanicolaou smear with manual screening 15 U/L 15-37 [facility] Work Phone: Thin prep Papanicolaou smear with manual screening 6 5-15 [facility] Work Phone: HLA CLASS II SP AB ID, HDon 11-03-2019 HLA CLASS II SP AB ID,HD SEE COMMENT [facility] Comment on above: Result Comment: HLA- CLASS II SP ANTIBODY IDENTIFICATION, HIGH DEFINITION SEE SEPARATE REPORT. Performed By: #### H LHD2 #### [facility] [address] [place] [address] HLA CLASS I SP AB ID, HDon 0 10-16-2019 HLA CLASS I SP AB ID,HD SEE COMMENT [facility] Comment on above: Result Comment: HLA- CLASS I SP ANTIBODY IDENTIFICATION, HIGH DEFINITION SEE SEPARATE REPORT. Performed By: #### H LHD1 #### [facility] [address] [place] [address] HLA CLASS II AB SCREEN,FCon 10-16-2019 HLA CLASS II AB SCREEN,FC SEE COMMENT [facility] Comment on above: Result Comment: HLA CLASS II AB SCREEN,FLOW CYTOMETRY SEE SEPARATE REPORT. Performed By: #### H LAS2 #### [facility] [address] [place] [address] CROSSMATCH, FREEZEon 020 CROSSMATCH, FREEZE COMMENT [facility] Comment on above: Result Comment: SEE SEPARATE REPORT. Performed By: #### H LFXM #### [facility] [address] [place] [address] Otheron 04-09-2019 SEE COMMENT [facility]- [place] 2100 [...] reports compliance with [facility] Pt now has Medicare. Medical Independence is primary and Medicare is secondary. Pt [...] (Author) [employer] Otheron 03-12-2019 COMMENT [facility] Work Phone: Comment on above: SEE SEPARATE REPORT. Otheron 02-17-2019 Interpreted by: GILLES GEORGE02/17/19 15:40MRN: [id number] Name: RODRI GALE STUDY:CARDIAC STRESS/REST INJECTION; PART 2 STRESS OR REST (NO CHARGE);CARDIAC STRESS/REST (MYOCARDIAL PERFUSION/MIBI); 02/17/2019 3:32 pm INDICATION:pre-kidney transplant. COMPARISON:Prior nuclear medicine stress test dated 12/05/2017 [id number]; [id number] ORDERING CLINICIAN:PAOLA SALAZAR TECHNIQUE:DIVISION OF NUCLEAR MEDICINEPHARMACOLOGIC [...] Well-maintained left ventricular function. Images interpreted at [facility].Electronically signed by: SMOOTH GEORGE 02/17/19 15:40 Normal -[facility] [address] Work Phone: Comment on above: ORDER REVISED TO A C ARDIAC STRESS/REST INJECTION BY RADIOLOGIST [id number] [address] [place] [address], [address] [place] [address], [address], [place] [address]Zgd [phone] and Inmwxxe Pharmacologic Stress TestPatient Name: Rodri Gale Ordering Physician:Study Date: 02/17/2019 Reading Physician: Kamilla Morocho MDMRN/PID: [id number] Supervising Physician: Kamilla Morocho MDAccession/Order#: [id number] Referring Physician: [id number] Munoz MDDate of : 1955 PCP: FLASH Bar MDGender: M Fellow:Admission Status: Outpatient Multimedia Services Coordinator: Mary Lozoya: 177.80 cm Nurse: Alondra HarperWeight: 94.35 kg Film Processor: LAURASA: 2.12 m2 Technologist:BMI: 29.85 kg/m2 Additional Staff:Age: 63 years cc report to:Patient Location: [facility] cc report to:Stress LabStudy Type: Nuclear Stress Test PharmacologicalDiagnosis/I CD: Z01.818-Encounter for other preprocedural examinationIndication: Pretransplant evaluationProcedure/CPT: Stress Test Interpretation-[id number]; Stress Test Supervision-[id number] Risk: High: Patient has a high risk [...] separately.3. The adequate level of stress was achieved.[id number] Jamarcus Trejo MDElectronically signed on 02/17/2019 at 3:11:55 PM Final -Surgery- [facility] 2100 Work Phone: Vital Signs Date Time Vital Sign Value Performing Clinician Facility 10-28-2024 08:37-0400 Body height 179.1 cm Claribel Cioce RECOVERY ROOM RN.FILM PROCESSOR Work Phone: [facility] 10-28-2024 08:37-0400 Body mass index (BMI) [Ratio] 27.05 kg/m2 Claribel Cioce RECOVERY ROOM RN.FILM PROCESSOR Work Phone: [facility] 10-28-2024 08:37-0400 Body weight 86.73 kg Claribel Cioce RECOVERY ROOM RN.FILM PROCESSOR Work Phone: [facility] 10-28-2024 08:37-0400 Diastolic blood pressure 68 mm[Hg] Claribel Cioce RECOVERY ROOM RN.FILM PROCESSOR Work Phone: [facility] 10-28-2024 08:37-0400 Heart rate 55 /min Claribel Cioce RECOVERY ROOM RN.FILM PROCESSOR Work Phone: [facility] 10-28-2024 08:37-0400 Respiratory rate 20 /min Claribel Cioce RECOVERY ROOM RN.FILM PROCESSOR Work Phone: [facility] 10-28-2024 08:37-0400 SaO2% (BldA) [Mass fraction] 97 % Claribel Cioce RECOVERY ROOM RN.FILM PROCESSOR Work Phone: [facility] 10-28-2024 08:37-0400 Systolic blood pressure 148 mm[Hg] Claribel Cioce RECOVERY ROOM RN.FILM PROCESSOR Work Phone: [facility] 06-23-2024 08:03-0500 Body height 179.1 cm Alo Avina MD Work Phone: [facility] 06-23-2024 08:03-0500 Body mass index (BMI) [Ratio] 26.88 kg/m2 Alo Avina MD Work Phone: [facility] 06-23-2024 08:03-0500 Body weight 86.18 kg Alo Avina MD Work Phone: [facility] 06-23-2024 08:03-0500 Diastolic blood pressure 70 mm[Hg] Alo Avina MD Work Phone: [facility] 06-23-2024 08:03-0500 Heart rate 56 /min Alo Avina MD Work Phone: [facility] 06-23-2024 08:03-0500 Respiratory rate 16 /min Alo Avina MD Work Phone: [facility] 06-23-2024 08:03-0500 Systolic blood pressure 120 mm[Hg] Alo Avina MD Work Phone: [facility] 04-29-2024 09:39-0400 Body height 179.1 cm Claribel Cioce RECOVERY ROOM RN.FILM PROCESSOR Work Phone: [facility] 04-29-2024 09:39-0400 Body mass index (BMI) [Ratio] 27.64 kg/m2 Claribel Cioce RECOVERY ROOM RN.FILM PROCESSOR Work Phone: [facility] 04-29-2024 09:39-0400 Body temperature 98.29 [degF] Claribel Cioce RECOVERY ROOM RN.FILM PROCESSOR Work Phone: [facility] 04-29-2024 09:39-0400 Body weight 88.63 kg Claribel Cioce RECOVERY ROOM RN.FILM PROCESSOR Work Phone: [facility] 04-29-2024 09:39-0400 Diastolic blood pressure 76 mm[Hg] Claribel Cioce RECOVERY ROOM RN.FILM PROCESSOR Work Phone: [facility] 04-29-2024 09:39-0400 Heart rate 59 /min Claribel Cioce RECOVERY ROOM RN.FILM PROCESSOR Work Phone: [facility] 04-29-2024 09:39-0400 SaO2% (BldA) [Mass fraction] 96 % Claribel Cioce RECOVERY ROOM RN.FILM PROCESSOR Work Phone: [facility] 04-29-2024 09:39-0400 Systolic blood pressure 130 mm[Hg] Clarible Cioce RECOVERY ROOM RN.FILM PROCESSOR Work Phone: [facility] 01-20-2024 09:23-0400 Diastolic blood pressure 71 mm[Hg] Crystal Nation PA-C Work Phone: [facility] 01-20-2024 09:23-0400 Systolic blood pressure 136 mm[Hg] Crystal Nation PA-C Work Phone: [facility] 01-20-2024 07:11-0400 Body mass index (BMI) [Ratio] 27.3 kg/m2 Crystal Nation PA-C Work Phone: [facility] 01-20-2024 07:11-0400 Body temperature 97.7 [degF] Crystal Nation PA-C Work Phone: [facility] 01-20-2024 07:11-0400 Body weight 87.54 kg Crystal Nation PA-C Work Phone: [facility] 01-20-2024 07:11-0400 Heart rate 56 /min Crystal Nation PA-C Work Phone: [facility] 01-20-2024 07:11-0400 Respiratory rate 16 /min Crystal Nation PA-C Work Phone: [facility] 01-20-2024 07:11-0400 SaO2% (BldA) [Mass fraction] 97 % Crystal Nation PA-C Work Phone: [facility] 12-18-2023 07:53-0400 Diastolic blood pressure 66 mm[Hg] Crystal Nation PA-C Work Phone: [facility] Comment on above: Kenrick BP Average 12-18-2023 07:53-0400 Heart rate 55 /min Crystal Nation PA-C Work Phone: [facility] Comment on above: Kenrick BP Average 12-18-2023 07:53-0400 Systolic blood pressure 162 mm[Hg] Crystal Nation PA-C Work Phone: [facility] Comment on above: Kenrick BP Average 12-18-2023 06:56-0400 Body mass index (BMI) [Ratio] 27.73 kg/m2 Crystal Nation PA-C Work Phone: [facility] 12-18-2023 06:56-0400 Body temperature 97.11 [degF] Crystal Nation PA-C Work Phone: [facility] 12-18-2023 06:56-0400 Body weight 88.91 kg Crystal Nation PA-C Work Phone: [facility] 12-18-2023 06:56-0400 Respiratory rate 18 /min Crystal Nation PA-C Work Phone: [facility] 12-18-2023 06:56-0400 SaO2% (BldA) [Mass fraction] 99 % Crystal REICH-C Work Phone: [facility] 12-11-2023 09:05-0400 Body height 179.1 cm Claribel Cioce RECOVERY ROOM RN.FILM PROCESSOR Work Phone: [facility] 12-11-2023 09:05-0400 Body mass index (BMI) [Ratio] 27.41 kg/m2 Claribel Cioce RECOVERY ROOM RN.FILM PROCESSOR Work Phone: [facility] 12-11-2023 09:05-0400 Body temperature 97.11 [degF] Claribel Cioce RECOVERY ROOM RN.FILM PROCESSOR Work Phone: [facility] 12-11-2023 09:05-0400 Body weight 87.91 kg Claribel Cioce RECOVERY ROOM RN.FILM PROCESSOR Work Phone: [facility] 12-11-2023 09:05-0400 Diastolic blood pressure 76 mm[Hg] Claribel Cioce RECOVERY ROOM RN.FILM PROCESSOR Work Phone: [facility] 12-11-2023 09:05-0400 Heart rate 56 /min Claribel Cioce RECOVERY ROOM RN.FILM PROCESSOR Work Phone: [facility] 12-11-2023 09:05-0400 SaO2% (BldA) [Mass fraction] 97 % Claribel Cioce RECOVERY ROOM RN.FILM PROCESSOR Work Phone: [facility] 12-11-2023 09:05-0400 Systolic blood pressure 132 mm[Hg] Claribel Cioce RECOVERY ROOM RN.FILM PROCESSOR Work Phone: [facility] 11-22-2023 13:01-0400 Body mass index (BMI) [Ratio] 27.74 kg/m2 Jim Shaw MB[employer] Work Phone: [facility] 11-22-2023 13:01-0400 Body temperature 97.3 [degF] Jim Shaw MB[employer] Work Phone: [facility] 11-22-2023 13:01-0400 Body weight 87.68 kg Jim Shaw [employer] Work Phone: [facility] 11-22-2023 13:01-0400 Diastolic blood pressure 71 mm[Hg] Jim Shaw [employer] Work Phone: [facility] 11-22-2023 13:01-0400 Heart rate 54 /min Jim Shaw [employer] Work Phone: [facility] 11-22-2023 13:01-0400 Systolic blood pressure 151 mm[Hg] Jim Shaw MB[employer] Work Phone: [facility] 06-07-2023 03:55-0500 Body mass index (BMI) [Ratio] 30.8 kg/m2 [facility] 03-13-2023 08:48-0400 Body height 179.1 cm Claribel Cioce RECOVERY ROOM RN.FILM PROCESSOR Work Phone: [facility] 03-13-2023 08:48-0400 Body temperature 97.9 [degF] Claribel Cioce RECOVERY ROOM RN.FILM PROCESSOR Work Phone: [facility] 03-13-2023 08:48-0400 Body weight 84.91 kg Claribel Cioce RECOVERY ROOM RN.FILM PROCESSOR Work Phone: [facility] 03-13-2023 08:48-0400 Diastolic blood pressure 72 mm[Hg] Claribel Cioce RECOVERY ROOM RN.FILM PROCESSOR Work Phone: [facility] 03-13-2023 08:48-0400 Heart rate 70 /min Claribel Cioce RECOVERY ROOM RN.FILM PROCESSOR Work Phone: [facility] 03-13-2023 08:48-0400 SaO2% (BldA) [Mass fraction] 98 % Claribel Cioce RECOVERY ROOM RN.FILM PROCESSOR Work Phone: [facility] 03-13-2023 08:48-0400 Systolic blood pressure 118 mm[Hg] Claribel Cioce RECOVERY ROOM RN.FILM PROCESSOR Work Phone: [facility] 03-07-2023 23:17-0400 Body mass index (BMI) [Ratio] 30.8 kg/m2 [facility] 01-07-2023 13:41-0400 Body temperature 98.3 [degF] Dr. Alo Avina Work Phone: [facility] 01-07-2023 13:41-0400 Diastolic blood pressure 61 mm[Hg] Dr. Alo Avina Work Phone: [facility] 01-07-2023 13:41-0400 Heart rate 66 /min Dr. Alo Avina Work Phone: [facility] 01-07-2023 13:41-0400 Respiratory rate 18 /min Dr. Alo Avina Work Phone: 9(767)280-256452 [place] [address] 01-07-2023 13:41-0400 SaO2% (BldA) [Mass fraction] 90 % Dr. Alo Avina Work Phone: 3(745)712-579352 [place] [address] 01-07-2023 13:41-0400 Systolic blood pressure 138 mm[Hg] Dr. Alo Avina Work Phone: 6(145)512-212652 [place] [address] 01-07-2023 11:20-0400 Inhaled oxygen flow rate 2 L/min Dr. Alo Avina Work Phone: 7(044)748-871652 [place] [address] 01-06-2023 14:39-0400 Inhaled oxygen concentration 2 % Dr. Alo Avina Work Phone: 3(962)265-475552 [place] [address] 01-04-2023 09:43-0400 Body height 177.[address] Alo Avina Work Phone: 3(019)576-171752 [place] [address] 01-04-2023 09:43-0400 Body mass index (BMI) [Ratio] 27.5 kg/m2 Dr. Alo Avina Work Phone: 5(095)875-254052 [place] [address] 01-04-2023 09:43-0400 Body weight 87.[address] Alo Avina Work Phone: 0(685)444-717252 [place] [address] 01-03-2023 13:32-0400 Body temperature 98.6 [degF] Dr. Alo Avina Work Phone: 9(324)756-598352 [place] [address] 01-03-2023 13:32-0400 Diastolic blood pressure 65 mm[Hg] Dr. Alo Avina Work Phone: 3(997)618-513752 [place] [address] 01-03-2023 13:32-0400 Heart rate 67 /min Dr. Alo Avina Work Phone: 5(694)077-881852 [place] [address] 01-03-2023 13:32-0400 Respiratory rate 16 /min Dr. Alo Avina Work Phone: 6(564)157-936852 [place] [address] 01-03-2023 13:32-0400 SaO2% (BldA) [Mass fraction] 94 % Dr. Alo Avina Work Phone: [facility] 01-03-2023 13:32-0400 Systolic blood pressure 146 mm[Hg] Dr. Alo Avina Work Phone: [facility] 01-03-2023 11:02-0400 Body height 177.[address] Alo Avina Work Phone: [facility] 01-03-2023 11:02-0400 Body mass index (BMI) [Ratio] 27.8 kg/m2 Dr. Alo Avina Work Phone: 7(707)782-854896 [place] [address] 01-03-2023 11:02-0400 Body weight 87.[address] Alo Avina Work Phone: 7(331)799-440396 [place] [address] 01-03-2023 10:52-0400 Body temperature 100.4 [degF] Dr. Alo Avina Work Phone: 3(351)859-580296 [place] [address] 01-03-2023 10:52-0400 Diastolic blood pressure 60 mm[Hg] Dr. Alo Avina Work Phone: 1(182)128-091496 [place] [address] 01-03-2023 10:52-0400 Heart rate 75 /min Dr. Alo Avina Work Phone: [facility] 01-03-2023 10:52-0400 Respiratory rate 16 /min Dr. Alo Avina Work Phone: [facility] 01-03-2023 10:52-0400 SaO2% (BldA) [Mass fraction] 94 % Dr. Alo Avina Work Phone: [facility] 01-03-2023 10:52-0400 Systolic blood pressure 140 mm[Hg] Dr. Alo Avina Work Phone: [facility] 12-26-2022 07:50-0400 Body weight 87.54 kg Claribel Cope APRN.CNP Work Phone: [facility] 12-06-2022 08:34-0400 Diastolic blood pressure 58 mm[Hg] Alo Avina MD Work Phone: [facility] 12-06-2022 08:34-0400 Systolic blood pressure 138 mm[Hg] Alo Avina MD Work Phone: [facility] 12-06-2022 08:17-0400 Body mass index (BMI) [Ratio] 30.8 kg/m2 Dr. Alo Avina Work Phone: [facility] 12-06-2022 07:58-0400 Body height 179.1 cm Alo Avina MD Work Phone: [facility] 12-06-2022 07:58-0400 Body weight 87.54 kg Alo Avina MD Work Phone: 7(246)125-875309 [address] [place] [address] 12-06-2022 07:58-0400 Heart rate 60 /min Alo Avina MD Work Phone: 2(448)779-532309 [address] [place] [address] 12-06-2022 07:58-0400 Respiratory rate 14 /min Alo Avina MD Work Phone: [facility] 11-02-2022 07:05-0400 Body temperature 98.4 [degF] Dr. Alo Avina Work Phone: [facility] 11-02-2022 07:05-0400 Diastolic blood pressure 59 mm[Hg] Dr. Alo Avina Work Phone: [facility] 11-02-2022 07:05-0400 Heart rate 53 /min Dr. Alo Avina Work Phone: [facility] 11-02-2022 07:05-0400 Respiratory rate 16 /min Dr. Alo Avina Work Phone: [facility] 11-02-2022 07:05-0400 SaO2% (BldA) [Mass fraction] 99 % Dr. Alo Avina Work Phone: [facility] 11-02-2022 07:05-0400 Systolic blood pressure 120 mm[Hg] Dr. Alo Avina Work Phone: 0(072)532-975896 [place] [address] 11-02-2022 05:54-0400 Body height 177.[address] Alo Avina Work Phone: 3(066)446-659096 [place] [address] 11-02-2022 05:54-0400 Body mass index (BMI) [Ratio] 27.2 kg/m2 Dr. Alo Avina Work Phone: 1(252)182-434552 [place] [address] 11-02-2022 05:54-0400 Body weight 86.[address] Alo Avina Work Phone: 4(156)442-341252 [place] [address] 10-05-2022 23:18-0400 Body mass index (BMI) [Ratio] 30.8 kg/m2 Dr. Alo Avina Work Phone: 3(455)440-040152 [place] [address] 09-27-2022 14:05-0400 Body height 177.[address] Alo Avina Work Phone: 1(818)012-184052 [place] [address] 09-27-2022 14:05-0400 Body mass index (BMI) [Ratio] 28.5 kg/m2 Dr. Alo Avina Work Phone: 1(415)067-432952 [place] [address] 09-27-2022 14:05-0400 Body temperature 97 [degF] Dr. Alo Avina Work Phone: 9(255)733-355952 [place] [address] 09-27-2022 14:05-0400 Body weight 90.[address] Alo Avina Work Phone: 6(923)664-250152 [place] [address] 09-27-2022 14:05-0400 Diastolic blood pressure 68 mm[Hg] Dr. Alo Avina Work Phone: 7(195)611-757152 [place] [address] 09-27-2022 14:05-0400 Heart rate 65 /min Dr. Alo Avina Work Phone: 1(692)884-044096 [place] [address] 09-27-2022 14:05-0400 Respiratory rate 16 /min Dr. Alo Avina Work Phone: 9(929)578-934152 [place] [address] 09-27-2022 14:05-0400 SaO2% (BldA) [Mass fraction] 99 % Dr. Alo Avina Work Phone: 7(074)222-287896 [place] [address] 09-27-2022 14:05-0400 Systolic blood pressure 160 mm[Hg] Dr. Alo Avina Work Phone: [facility] 08-08-2022 08:39-0500 Body mass index (BMI) [Ratio] 30.8 kg/m2 Dr. Alo Avina Work Phone: [facility] 06-28-2022 08:08-0500 Diastolic blood pressure 78 mm[Hg] Keri Shay RECOVERY ROOM RN.FILM PROCESSOR Work Phone: [facility] 06-28-2022 08:08-0500 Systolic blood pressure 132 mm[Hg] Keri Day RECOVERY ROOM RN.FILM PROCESSOR Work Phone: [facility] 06-28-2022 07:47-0500 Body weight 88 kg Keri Day RECOVERY ROOM RN.FILM PROCESSOR Work Phone: [facility] 06-28-2022 07:47-0500 Heart rate 59 /min Krei Shay RECOVERY ROOM RN.FILM PROCESSOR Work Phone: [facility] 06-28-2022 07:47-0500 Respiratory rate 16 /min Keri Day RECOVERY ROOM RN.FILM PROCESSOR Work Phone: [facility] 06-07-2022 00:40-0500 Body mass index (BMI) [Ratio] 30.8 kg/m2 Dr. Alo Avina Work Phone: [facility] 05-30-2022 09:13-0500 Body weight 87.09 kg Alo Avina MD Work Phone: [facility] 05-30-2022 09:13-0500 Diastolic blood pressure 70 mm[Hg] Alo Avina MD Work Phone: [facility] 05-30-2022 09:13-0500 Heart rate 64 /min Alo Avina MD Work Phone: [facility] 05-30-2022 09:13-0500 Respiratory rate 16 /min Alo Avina MD Work Phone: [facility] 05-30-2022 09:13-0500 Systolic blood pressure 140 mm[Hg] Alo Avina MD Work Phone: [facility] 05-21-2022 12:31-0500 Body height 177.8 cm [facility] 05-21-2022 12:31-0500 Body mass index (BMI) [Ratio] 27.26 kg/m2 [facility] 05-21-2022 12:31-0500 Body temperature 97.59 [degF] [facility] 05-21-2022 12:31-0500 Body weight 86.18 kg [facility] 05-21-2022 12:31-0500 Diastolic blood pressure 66 mm[Hg] [facility] 05-21-2022 12:31-0500 Heart rate 58 /min [facility] 05-21-2022 12:31-0500 Systolic blood pressure 142 mm[Hg] [facility] 04-06-2022 22:03-0400 Body mass index (BMI) [Ratio] 30.8 kg/m2 [facility] Work Phone: 02-04-2022 02:52-0400 Body mass index (BMI) [Ratio] 30.8 kg/m2 [facility] Work Phone: 12-05-2021 21:09-0400 Body mass index (BMI) [Ratio] 30.8 kg/m2 [facility] Work Phone: 11-16-2021 09:12-0400 Body weight 88 kg Alo Avina MD Work Phone: [facility] 11-16-2021 09:12-0400 Diastolic blood pressure 68 mm[Hg] Alo Avina MD Work Phone: [facility] 11-16-2021 09:12-0400 Heart rate 60 /min Alo Avina MD Work Phone: [facility] 11-16-2021 09:12-0400 Respiratory rate 16 /min Alo Avina MD Work Phone: [facility] 11-16-2021 09:12-0400 Systolic blood pressure 116 mm[Hg] Alo Avina MD Work Phone: [facility] 11-05-2021 03:52-0400 Body mass index (BMI) [Ratio] 30.8 kg/m2 [facility] Work Phone: 10-06-2021 03:27-0400 Body mass index (BMI) [Ratio] 30.8 kg/m2 [facility] Work Phone: 09-05-2021 08:53-0500 Body mass index (BMI) [Ratio] 30.8 kg/m2 [facility] Work Phone: 08-08-2021 00:30-0500 Body mass index (BMI) [Ratio] 30.8 kg/m2 [facility] Work Phone: 07-09-2021 03:52-0500 Body mass index (BMI) [Ratio] 30.8 kg/m2 [facility] Work Phone: 04-08-2019 15:26-0400 BMI (Body Mass Index) 31.12 kg/m2 Flor Wong MG-Transpl ant-Mat her Work Phone: 04-08-2019 15:26-0400 Body weight 99.79 kg Flor Wong LI-Huvfzwtgvo-Dx t her Work Phone: 04-08-2019 15:26-0400 BP Diastolic 70 mm[Hg] Flor Wnog BW-Gftlbljjfy-Vn t her Work Phone: Comment on above: Location: RUE; Position: Sitting 04-08-2019 15:26-0400 BP Systolic 134 mm[Hg] Flor Wong HZ-Lnitjjycwc-Av t her Work Phone: Comment on above: Location: RUE; Position: Sitting 04-08-2019 15:26-0400 BSA (Body Surface Area) 2.18 m2 Flor Wong LG-Fuydgfrvkg-Ktg her Work Phone: 04-08-2019 15:26-0400 Height 179.07 cm Flor Back XX-Avywttrzrt-Mc t her Work Phone: 04-08-2019 15:26-0400 Pulse (Heart Rate) 73 /min Flor Back MG-Transplant -Mat her Work Phone: 04-08-2019 15:26-0400 Pulse Oximetry 95 % Flor Back OD-Lusqzmmqso-Ud t her Work Phone: 04-08-2019 15:26-0400 Respiratory Rate 18 /min Flor Collinsason AW-Lebvihrfvr-X at her Work Phone: 04-08-2019 12:27-0400 BMI (Body Mass Index) 31.22 kg/m2 Flor Collinsason MG-Transpl ant-Mat her Work Phone: 04-08-2019 12:27-0400 Body Temperature 98.4 [degF] Flor Back OE-Polqeqzylp-M at her Work Phone: Comment on above: Method: Oral 04-08-2019 12:27-0400 Body weight 100.11 kg Flor Back YC-Lmmkfbbqxo-Yi t her Work Phone: 04-08-2019 12:27-0400 BP Diastolic 62 mm[Hg] Flor Back EC-Ursmjpcwvy-Yj t her Work Phone: 04-08-2019 12:27-0400 BP Systolic 129 mm[Hg] Flor Collinsason WB-Qsicvpydss-Dl t her Work Phone: 04-08-2019 12:27-0400 BSA (Body Surface Area) 2.19 m2 Flor Collinsason XC-Qqlpcuzybs-Mvd her Work Phone: 04-08-2019 12:27-0400 Height 179.07 cm lFor Back LO-Hghmzvsotv-Qp t her Work Phone: 04-08-2019 12:27-0400 Pulse (Heart Rate) 75 /min Flor Collinsason MG-Transplant -Mat her Work Phone: 04-08-2019 12:27-0400 Pulse Oximetry 96 % Flor Back ET-Nvsxofveyw-Ft ron her Work Phone: Comment on above: Source: 04-08-2019 12:270400 0 1 Flor Back DT-Proqjibqjw-Nn t her Work Phone: Comment on above: Pain Scale Encounters Encounter Date Encounter Type Care Provider Facility Start: 04-07-2025 ambulatory Claribel Cioce Facility:[facility] Start: 03-17-2025 End: 03-17-2025 Chart abstracting Alo Avina MD Work Phone: [facility] Comment on above: Abstract ([facility]) Start: 02-19-2025 End: 02-19-2025 Telephone encounter Claribel C Cioce RECOVERY ROOM RN.FILM PROCESSOR Work Phone: Endocrinology Start: 01-29-2025 End: 02-02-2025 Telephone encounter Alo Avina MD Work Phone: [facility] Comment on above: Forms Start: 01-20-2025 End: 01-20-2025 Chart abstracting Alo Avina MD Work Phone: [facility] Comment on above: Abstract (Ophthalmol ogy OV) Start: 01-09-2025 End: 01-11-2025 Refill Claribel C Cioce RECOVERY ROOM RN.FILM PROCESSOR Work Phone: Endocrinology Comment on above: Refill Request Start: 12-11-2024 End: 12-11-2024 Chart abstracting Alo Avina MD Work Phone: [facility] Comment on above: Outside Ophthalmolog y Start: 11-23-2024 ambulatory [facility] acility:[facility] Start: 11-20-2024 End: 11-20-2024 Refill Alo Avina MD Work Phone: [facility] Comment on above: Refill Request Start: 11-06-2024 End: 11-06-2024 Chart abstracting Alo Avina MD Work Phone: [facility] Start: 11-06-2024 End: 11-06-2024 Ophthalmic examination and evaluation Alo Avina MD Work Phone: [facility] Start: 10-28-2024 End: 10-28-2024 Patient encounter procedure Claribel Mejía Anatoliy RECOVERY ROOM RN.FILM PROCESSOR Work Phone: Endocrinology Comment on above: Diabetes mellitus tr eated with insulin (HCC) (Primary Dx) Start: 10-28-2024 End: 10-28-2024 ambulatory ALO AVINA Facility:[facility] Start: 10-27-2024 End: 10-27-2024 Chart abstracting Alo Avina MD Work Phone: [facility] Comment on above: Outside Ophthalmolog y Start: 10-23-2024 End: 10-23-2024 Refill Alo Avina MD Work Phone: [facility] Comment on above: Refill Request Start: 10-19-2024 End: 10-19-[address] Alo Avina MD Work Phone: [facility] Work Phone: Start: 10-19-2024 End: 10-19-[address] Alo Avina MD Work Phone: -Laboratory Work Phone: Start: 10-19-2024 End: 10-19-2024 ambulatory [facility] Facility:[facility] Start: 09-24-2024 End: 09-24-2024 ambulatory Rosio Servin RN Work Phone: [employer] Management Comment on above: Initial enrollment o [facility] Start: 09-14-2024 End: 09-14-2024 Chart abstracting Katrina Mace MA [facility] Comment on above: Consult Start: 09-10-2024 End: 09-10-2024 ambulatory Maria Luisa Barnett MA [facility] Start: 09-10-2024 End: 09-10-2024 Patient encounter procedure Maria Luisa Barnett MA [facility] Comment on above: Population Health Na vigation Outreach ([employer] High Risk Attempt #1) Start: 08-28-2024 End: 08-28-2024 Telephone encounter Alo Avina MD Work Phone: [facility] Comment on above: [employer] [address] Start: 07-16-2024 End: 07-16-2024 Chart abstracting Alo Avina MD Work Phone: [facility] Comment on above: Outside Iojo-Ock-ZGF Ordered Start: 07-13-2024 End: 07-13-2024 Chart abstracting Alo Avina MD Work Phone: [facility] Comment on above: Outside Xflc-Fbb-WEP Ordered Results, Lab Start: 07-13-2024 End: 07-13-[address] Alo Avina MD Work Phone: -Laboratory Work Phone: Start: 07-13-2024 End: 07-13-2024 ambulatory [facility] Facility:[facility] Start: 07-11-2024 End: 07-13-2024 Telephone encounter Alo Avina MD Work Phone: [facility] Comment on above: Consult Start: 06-26-2024 End: 06-27-2024 Telephone encounter Katrina Mace MA [facility] Comment on above: Results Start: 06-24-2024 End: 06-24-[address] Alo Avina MD -Laboratory Work Phone: Start: 06-23-2024 End: 06-24-2024 ambulatory Alo Avina Facility:[facility] Start: 06-23-2024 End: 06-23-2024 Ophthalmic examination and evaluation Alo Avina MD Work Phone: [facility] Start: 06-23-2024 End: 06-23-2024 Patient encounter procedure Alo Avina MD Work Phone: [facility] Comment on above: Medicare annual well [...] End: 06-17-2024 Chart abstracting Katrina Mace MA [facility] Comment on above: Results (Outside lab s /) Start: 06-16-2024 End: 06-16-2024 ambulatory [facility] Facility:[facility] Start: 06-15-2024 End: 06-15-2024 Telephone encounter Claribel Cope APRN.FILM PROCESSOR Work Phone: Endocrinology Comment on above: Patient Update (Khushbu na non formulary notice ) Start: 06-05-2024 End: 06-05-2024 Telephone encounter Alo Avina MD Work Phone: [facility] Comment on above: Patient Request Refill Request Start: 05-20-2024 End: 05-20-2024 Chart abstracting Alo Avina MD Work Phone: [facility] Comment on above: Outside Ophthalmolog y Start: 04-29-2024 End: 04-29-2024 Patient encounter procedure Claribel Cope APRN.FILM PROCESSOR Work Phone: Endocrinology Comment on above: Diabetes mellitus tr eated with insulin (HCC) (Primary Dx) Start: 04-25-2024 End: 04-27-2024 Refill [place] [address] Comment on above: Refill Request Start: 04-21-2024 End: 04-21-2024 Chart abstracting Katrina Mace MA [facility] Comment on above: Results (Outside lab s /) Start: 04-20-2024 End: 04-20-2024 ambulatory Judd Dey Facility:[facility] Start: 04-10-2024 End: 04-10-2024 Telephone encounter Alo Avina MD Work Phone: [facility] Comment on above: Orders Start: 03-24-2024 End: 03-24-2024 Chart abstracting Alo Avina MD Work Phone: [facility] Comment on above: Outside Ophthalmolog y Start: 03-02-2024 End: 03-02-2024 Refill Alo Avina MD Work Phone: [facility] Comment on above: Refill Request Start: 01-20-2024 End: 01-20-2024 Patient encounter procedure Crystal Nation PA-C Work Phone: [facility] Comment on above: Essential hypertensi on, benign (Primary Dx) Start: 01-08-2024 Telephone encounter Crystal choi PA-C Work Phone: [facility] Comment on above: Patient Update Start: 12-18-2023 End: 12-18-2023 Patient encounter procedure Crystal Nation PA-C Work Phone: [facility] Comment on above: Essential hypertensi on, benign [...] present Start: 12-11-2023 Telephone encounter Claribel lainez RECOVERY ROOM RN.FILM PROCESSOR Work Phone: Endocrinology Comment on above: Results Start: 12-11-2023 End: 12-11-2023 Patient encounter procedure Claribel Cope RECOVERY ROOM RN.FILM PROCESSOR Work Phone: Endocrinology Comment on above: Diabetes mellitus tr eated with insulin (HCC) (Primary Dx) Start: 12-05-2023 Chart abstracting Alo schneider MD Work Phone: [facility] Comment on above: Outside Juty-Wmk-RRE Ordered Start: 11-25-2023 Telephone encounter Claribel lainez RECOVERY ROOM RN.FILM PROCESSOR Work Phone: Endocrinology Comment on above: Orders (Labs to be d rawn at [facility] lab) Start: 11-22-2023 End: 12-18-2023 Office outpatient visit 25 minutes Jim Squires PACO Work Phone: [facility] Comment on above: Immunosuppressed sta tus (Primary Dx); Kidney replaced by transplant; High risk medication use; Aftercare following organ transplant; Hypertension secondary to other renal disorders Start: 11-22-2023 ambulatory JIM Nydia SHAW Facility:[facility] Start: 11-11-2023 Chart abstracting Alo schneider MD Work Phone: [facility] Comment on above: Outside Mwuv-Sha-VVM Ordered Start: 11-07-2023 Chart abstracting Alo schneider MD Work Phone: [facility] Comment on above: ext document (Labs) Start: 11-06-2023 Refill Alo dobbins MD Work Phone: [facility] Comment on above: Refill Request Start: 10-30-2023 Telephone encounter Claribel lainez RECOVERY ROOM RN.FILM PROCESSOR Work Phone: Endocrinology Comment on above: Orders (Formulary ch poncho for insulin) Start: 10-23-2023 Chart abstracting Katrina Mace MA [facility] Comment on above: Consult (Opthalmolog y /) Start: 10-14-2023 Chart abstracting Alo schneider MD Work Phone: [facility] Comment on above: External / Eye exam Start: 09-23-2023 Refill Alo dobbins MD Work Phone: [facility] Comment on above: Refill Request Start: 09-18-2023 Refill Claribel Mejía Anatoliy RECOVERY ROOM RN.FILM PROCESSOR Work Phone: Endocrinology Comment on above: Refill Request Start: 09-13-2023 Chart abstracting Alo schneider MD Work Phone: [facility] Comment on above: Outside Ftbw-Jib-LGY Ordered Start: 09-13-2023 End: 09-13-2023 ambulatory [facility] Work Phone: Start: 09-13-2023 End: 09-13-2023 Patient encounter procedure [facility] Work Phone: Start: 08-28-2023 Chart abstracting Alo schneider MD Work Phone: [facility] Comment on above: Outside Ophthalmolog y Start: 08-14-2023 End: 09-05-2023 ambulatory [facility] Work Phone: Start: 08-14-2023 End: 09-05-2023 Discharged Recurring [facility] Work Phone: Start: 06-18-2023 Patient encounter procedure Alo Avina MD Work Phone: [facility] Work Phone: Start: 06-13-2023 Ophthalmic examinati on and evaluation Alo Avina MD Work Phone: [facility] Start: 05-21-2023 Chart abstracting Alo schneider MD Work Phone: [facility] Comment on above: Outside Zoua-Ffg-LEF Ordered Start: 05-16-2023 End: 06-06-2023 ambulatory [facility] Work Phone: Start: 05-16-2023 End: 06-06-2023 Discharged Recurring [facility] Work Phone: Start: 05-08-2023 Refill Alo dobbins MD Work Phone: [facility] Comment on above: Refill Request Start: 04-01-2023 Home visit Alo dobbins MD Work Phone: [facility] Comment on above: Aftercare for amputa tion stump (Primary Dx) Start: 03-25-2023 Refill Alo dobbins MD Work Phone: [facility] Comment on above: Refill Request Start: 03-13-2023 End: 03-13-2023 Patient encounter procedure Claribel Chaparrooce RECOVERY ROOM RN.FILM PROCESSOR Work Phone: Endocrinology Comment on above: Type II diabetes yesica litus with manifestations (HCC) (Primary Dx) Start: 03-12-2023 Telephone encounter Aol Avina MD Work Phone: [facility] Comment on above: Patient Update Orders Start: 03-07-2023 Telephone encounter Alo Avina MD Work Phone: [facility] Comment on above: Home Health update Start: 02-25-2023 Telephone encounter Alo Avina MD Work Phone: [facility] Comment on above: Referral Request Start: 02-13-2023 Chart abstracting Alo schneider MD Work Phone: [facility] Comment on above: Results, Lab Start: 02-06-2023 End: 02-06-[address] Alo Avina Work Phone: [facility] Work Phone: Start: 02-06-2023 End: 02-06-[address] Alo Avina Work Phone: [facility] Work Phone: Start: 02-05-2023 Telephone encounter Alo Avina MD Work Phone: [facility] Comment on above: Orders Start: 01-28-2023 Chart abstracting lAo schneider MD Work Phone: [facility] Comment on above: Results Start: 01-24-2023 Home visit Alo dobibns MD Work Phone: [facility] Comment on above: Encounter for change or removal of surgical wound dressing (Primary Dx) Start: 01-09-2023 Telephone encounter Claribel lainez RECOVERY ROOM RN.FILM PROCESSOR Work Phone: Endocrinology Comment on above: Blood Sugar Readings Start: 01-07-2023 Telephone encounter Alo Avina MD Work Phone: [facility] Comment on above: Orders Start: 01-07-2023 Non-patient / Non-visit Dr. Mehrdad Avina Work Phone: [facility] Work Phone: Start: 01-06-2023 Non-patient / Non-visit Dr. Mehrdad Avina Work Phone: [facility] Work Phone: Start: 01-05-2023 Non-patient / Non-visit Dr. Mehrdad Avina Work Phone: [facility] Work Phone: Start: 01-04-2023 Non-patient / Non-visit Dr. Mehrdad Avina Work Phone: [facility] Work Phone: Start: 01-04-2023 End: 01-04-2023 Non-patient / Non-visit Dr. Alo Avina Work Phone: [facility] Work Phone: Start: 01-03-2023 Non-patient / Non-visit Dr. Mehrdad Avina Work Phone: [facility] Work Phone: Start: 01-03-2023 End: 01-07-2023 Evaluation and management of inpatient Dr. Alo Avina Work Phone: [facility] Work Phone: Start: 01-03-2023 End: 01-03-[address] Alo Avina Work Phone: [facility] Work Phone: Start: 12-26-2022 End: 12-26-2022 Nursing evaluation of patient and report Ishaan Fortune RN Work Phone: Endocrinology Comment on above: Type 2 diabetes bianca itus with stage 2 chronic kidney disease, with long-term current use of insulin (HCC) (Primary Dx) Start: 12-26-2022 End: 12-26-2022 Patient encounter procedure Claribel Cope APRN.FILM PROCESSOR Work Phone: Endocrinology Comment on above: Type [...] 11-28-[address] Alo Avina Work Phone: [facility] Work Phone: Start: 11-28-2022 End: 11-28-[address] Alo Avina Work Phone: [facility] Start: 11-19-2022 Telephone encounter Alo Avina MD Work Phone: [facility] Comment on above: Orders Start: 11-07-2022 End: 11-07-[address] Alo Avina Work Phone: [facility] Work Phone: Start: 11-07-2022 End: 11-07-2022 Discharged Recurring Dr. Alo Avina Work Phone: [facility] Start: 11-07-[address] Keila Avina Work Phone: [facility] Start: 11-05-2022 Telephone encounter Alo Avina MD Work Phone: [facility] Comment on above: Allergies Start: 11-02-2022 Chart abstracting Alo schneider MD Work Phone: [facility] Comment on above: Colonoscopy Report Start: 11-02-2022 Non-patient / Non-visit Dr. Mehrdad Avina Work Phone: [facility] Start: 11-02-2022 End: 11-02-2022 Admission to same day surgery center Dr. Alo Avina Work Phone: [facility] Start: 11-02-2022 End: 11-02-[address] Alo Avina Work Phone: [facility] Work Phone: Start: 10-01-2022 Refill Alo dobbins MD Work Phone: [facility] Comment on above: Refill Request Referral Request Start: 09-28-2022 Chart abstracting Alo schneider MD Work Phone: [facility] Comment on above: Consult (General Rimma shannon ) Start: 09-27-2022 End: 09-27-[address] Alo Avina Work Phone: [facility] Start: 09-26-2022 Telephone encounter Alo Avina MD Work Phone: [facility] Comment on above: Rx refill; not on cu rrent med list Start: 09-11-2022 Chart abstracting Alo schneider MD Work Phone: [facility] Comment on above: Outside Labs Results Start: 09-05-2022 End: 10-05-[address] Alo Avina Work Phone: [facility] Work Phone: Start: 09-05-2022 End: 10-05-[address] Alo Avina Work Phone: [facility] Start: 08-06-2022 ambulatory Yen Huang MA [facility] Comment on above: Population Health Na vigation Outreach ([employer] care gaps) Start: 07-18-2022 End: 07-18-[address] Alo Avina Work Phone: [facility] Start: 06-28-2022 End: 06-28-2022 Patient encounter procedure Keri Day APRN.CNP Work Phone: [facility] Comment on above: Primary hypertension (Primary Dx) Start: 05-30-2022 End: 05-30-2022 Ophthalmic examination and evaluation lAo Avina MD Work Phone: [facility] Start: 05-30-2022 End: 05-30-2022 Patient encounter procedure Alo Avina MD Work Phone: [facility] Comment on above: Diabetes mellitus ty pe [...] Phone: [facility] Comment on above: At increased risk of exposure to COVID-19 virus (Primary Dx) Start: 05-16-2022 End: 06-06-2022 [facility] Work Phone: Start: 05-16-2022 End: 06-06-2022 Discharged Recurring [facility] Start: 05-14-2022 Refill Alo dobbins MD Work Phone: [facility] Comment on above: Refill Request Start: 04-20-2022 ambulatory Margie Batista MA [facility] Comment on above: Population Health Na vigation Outreach ([employer] Care Gaps ) Start: 04-11-2022 Refill Alo dobbins MD Work Phone: [facility] Comment on above: Refill Request Start: 03-09-2022 End: 03-09-2022 [facility] Work Phone: Start: 03-09-2022 End: 03-09-2022 Discharged Recurring [facility] Start: 03-05-2022 ambulatory Hortencia Davenport [facility] Comment on above: Population Health Na vigation Outreach ([employer] Medicare/) Start: 02-06-2022 Refill Alo dobbins MD Work Phone: [facility] Comment on above: Refill Request Start: 01-10-2022 End: 02-04-2022 Discharged Recurring [facility] Start: 12-21-2021 Telephone encounter Alo Avina MD Work Phone: [facility] Comment on above: Medication Request Start: 11-17-2021 End: 11-17-2021 ambulatory [facility] Prep Covid Mab Transplant [facility] Comment on above: At increased risk of exposure to COVID-19 virus (Primary Dx) Start: 11-16-2021 End: 11-16-2021 Ophthalmic examination and evaluation Alo Avina MD Work Phone: [facility] Start: 11-16-2021 End: 11-16-2021 Patient encounter procedure Alo Avina MD Work Phone: [facility] Comment on above: Medicare annual well ness [...] traumatic Start: 11-08-2021 End: 11-08-2021 Discharged Recurring [facility] Start: 11-06-2021 Telephone encounter Alo Avina MD Work Phone: [facility] Comment on above: Orders Start: 10-12-2021 Refill Alo dobbins MD Work Phone: [facility] Comment on above: Refill Request Start: 10-11-2021 End: 10-11-2021 Discharged Recurring [facility] Start: 10-09-2021 Ophthalmic examinati on and evaluation Alo Avina MD Work Phone: [facility] Start: 09-26-2021 Refill Alo dobbins MD Work Phone: [facility] Comment on above: Refill Request Start: 09-06-2021 End: 10-05-2021 Discharged Recurring [facility] Start: 08-09-2021 End: 08-09-2021 Discharged Recurring [facility] Start: 07-11-2021 End: 08-07-2021 Discharged Recurring [facility] Start: 04-28-2019 Patient encounter status [facility] Start: 04-08-2019 Patient encounter procedure Aaron Rowleyira ZE-Rohnhwxgvc-SMA Alexys Sharonda Work Phone: Start: 04-08-2019 Patient encounter procedure Flor Back EM-Ozqudabggu-Pieyxf Work Phone: Start: 02-25-2019 Patient encounter procedure Flor Back KJ-Mbztemblrx-Wzxezb Work Phone: Start: 02-17-2019 End: 02-17-2019 Telephone encounter [facility] Pre Transplant Office Comment on above: Patient Education Start: 02-10-2019 End: 02-10-2019 Chart abstracting [facility] Start: 02-10-2019 End: 02-10-2019 Telephone encounter [facility] Pre [facility]plant Office Comment on above: Appointment Start: 02-07-2019 Notes/Results Only Other Other NOTE S/RESULTS Start: 02-07-2019 End: 02-07-2019 Patient encounter procedure Other Other [facility] Start: 10-24-2017 Patient encounter procedure Clair Nation NJ-Vcbodsxpxy-Mtuxdb Work Phone: Start: 10-03-2017 Patient encounter procedure Clair Nation UQ-Cukixcjfgu-Ajpvkg Work Phone: Start: 08-23-2017 Admission to day surgery Clair riley JG-Xfytrsxalm-Ebelly Work Phone: Start: 08-23-2017 Patient encounter procedure Clair Nation II-Caiboczbdg-Htdwml Work Phone: Start: 08-23-2017 Patient encounter procedure Clair Nation ZA-Hsczfultke-Schcez Work Phone: Start: 08-23-2017 Patient encounter procedure Clair Nation BH-Zsmfjldmwf-Rzjbgy Work Phone: Procedures Date Procedure Procedure Detail [...] transplant Kidney replaced by donor transplant 10/22/2019 [facility] Prep Covid Mab Transplant [facility] Start: 04-11-2019 Follow-up visit Start: 04-08-2019 [...] of renal transplant Ara l transplant recipient Aol Avina MD Work Phone: History of renal [...] CANCER SCREENING DISCUSSION PROSTATE CANCER SCREENING DISCUSSION [facility] Start: 11-29-2027 Prostate specific antigen measurement Prostate Cancer Screening Discussion [facility] Start: 11-03-2027 Colonoscopy COLONOSCOPY [facility] Start: 11-03-2027 COLORECTAL CANCER SCREENING COLORECTAL CANCER SCREENING [facility] Start: 11-03-2027 Screening for malign ant neoplasm of colon [facility] Start: 01-24-2026 Tetanus vaccination TETANUS [facility] Start: 01-24-2026 Urine microalbumin profile [facility] Start: 01-18-2026 Glaucoma screening Dilated Retinal E xam [facility] Start: 11-06-2025 Glaucoma screening Dilated Retinal E xam [facility] Start: 10-26-2025 Glaucoma screening Dilated Retinal E xam [facility] Start: 06-23-2025 Annual PCP Team Supervisor [employer] noe Disease Visit Annual PCP Team Chronic Disease Visit [facility] Start: 06-23-2025 BP Controlled (<130/80) BP Controlle d (<130/80) [facility] Start: 06-23-2025 End: 06-23-2025 Patient encounter procedure [facility] Comment on above: Medicare wellness 8 MTH F/U DIABETES Start: 06-16-2025 Hepatitis B surface antibody level LDL Cholesterol [facility] Start: 04-07-2025 End: 07-07-2025 Comprehensive metabolic 2000 panel - Serum or Plasma COMPREHENSIVE METABOLIC PANEL Lab Routine Diabetes mellitus treated with insulin (HCC) Expected: 04/07/2025, Expires: 07/07/2025 [facility] Work Phone: Comment on above: Expected: 04/07/2025 , Expires: 07/07/2025 Start: 04-07-2025 End: 07-07-2025 Hemoglobin A1c in Blood HEMOGLOBIN A1C Lab Routine Diabetes mellitus treated with insulin (HCC) Expected: 04/07/2025, Expires: 07/07/2025 [facility] Comment on above: Expected: 04/07/2025 , Expires: 07/07/2025 Start: 04-07-2025 End: 07-07-2025 LIPID PANEL, NONFASTING LIPID PANEL, NONFASTING Lab Routine Diabetes mellitus treated with insulin (HCC) Expected: 04/07/2025, Expires: 07/07/2025 [facility] Comment on above: Expected: 04/07/2025 , Expires: 07/07/2025 Start: 04-07-2025 End: 07-07-2025 Microalbumin/Creatinine [Mass Ratio] in Urine ALBUMIN/CREATININE RATIO, URINE Lab Routine Diabetes mellitus treated with insulin (HCC) Expected: 04/07/2025, Expires: 07/07/2025 [facility] Comment on above: Expected: 04/07/2025 , Expires: 07/07/2025 Start: 03-17-2025 Glaucoma screening Dilated Retinal E xam [facility] Start: 03-08-2025 Influenza vaccination Influenza Vacc ine (#1) [facility] Start: 01-19-2025 Annual PCP Team Supervisor [employer] noe Disease Visit Annual PCP Team Chronic Disease Visit [facility] Start: 01-19-2025 Anxiety Screening Anxiety Screening [facility] Start: 01-19-2025 Depression Screening Depression Scre ening [facility] Start: 12-17-2024 Annual PCP Team Supervisor [employer] noe Disease Visit Annual PCP Team Chronic Disease Visit [facility] Start: 12-15-2024 Hemoglobin A1c measurement HbA1C [facility] Start: 11-06-2024 Complete blood count Hemoglobin/Ryder tocrit [facility] Start: 11-06-2024 Creatinine measurement Serum Creatin ine [facility] Start: 10-28-2024 End: 10-28-2024 Patient encounter procedure 10/28/2024 8:45 AM EDT Office Visit Endocrinology [address] [place] [address] Claribel Cope, RECOVERY ROOM RN.FILM PROCESSOR [address] [place] [address] 6 MTH F/U Endocrinology Comment on above: 6 MTH F/U Start: 10-06-2024 End: 01-05-2025 Comprehensive metabolic 2000 panel - Serum or Plasma COMPREHENSIVE METABOLIC PANEL Lab Routine Diabetes mellitus treated with insulin (HCC) Expected: 10/06/2024, Expires: 01/05/2025 [facility] Work Phone: Comment on above: Expected: 10/06/2024 , Expires: 01/05/2025 Start: 10-06-2024 Glaucoma screening Dilated Retinal E xam [facility] Start: 10-06-2024 End: 01-05-2025 Hemoglobin A1c in Blood HEMOGLOBIN A1C Lab Routine Diabetes mellitus treated with insulin (HCC) Expected: 10/06/2024, Expires: 01/05/2025 [facility] Comment on above: Expected: 10/06/2024 , Expires: 01/05/2025 Start: 10-06-2024 End: 01-05-2025 LIPID PANEL, NONFASTING LIPID PANEL, NONFASTING Lab Routine Diabetes mellitus treated with insulin (HCC) Expected: 10/06/2024, Expires: 01/05/2025 [facility] Comment on above: Expected: 10/06/2024 , Expires: 01/05/2025 Start: 10-06-2024 End: 01-05-2025 Microalbumin/Creatinine [Mass Ratio] in Urine ALBUMIN/CREATININE RATIO, URINE Lab Routine Diabetes mellitus treated with insulin (HCC) Expected: 10/06/2024, Expires: 01/05/2025 [facility] Comment on above: Expected: 10/06/2024 , Expires: 01/05/2025 Start: 09-27-2024 Covid-19 Vaccine (9 - Pfizer risk ) Covid-19 Vaccine (9 - Pfizer risk ) [facility] Start: 08-19-2024 Glaucoma screening Dilated Retinal E xam [facility] Start: 07-08-2024 Advance Directive Discussion Advance Directive Discussion [facility] Start: 07-08-2024 Medicare Advantage Annual Wellness Visit Medicare Advantage Annual Wellness Visit [facility] Start: 06-23-2024 End: 09-22-2024 25-hydroxyvitamin D3 [Mass/volume] in Serum or Plasma VITAMIN D 25 HYDROXY Lab Routine Vitamin D deficiency Expected: 06/23/2024, Expires: 09/22/2024 [facility] Comment on above: Expected: 06/23/2024 , [...] chronic kidney disease Expected: 06/23/2024, Expires: 09/22/2024 [facility] Comment on above: Expected: 06/23/2024 , Expires: 09/22/2024 Start: 06-23-2024 End: 09-22-2024 Prostate specific Ag [Mass/volume] in Serum or Plasma PROSTATE-SPECIFIC ANTIGEN DIAGNOSTIC Lab Routine Prostate disorder Expected: 06/23/2024, Expires: 09/22/2024 [facility] Work Phone: Comment on above: Expected: 06/23/2024 , Expires: 09/22/2024 Start: 06-23-2024 End: 06-23-2024 Patient encounter procedure 06/23/2024 8:00 AM EST Office Visit [facility] [address] [place], [place] [id number] Alo Avina MD [address] [place], [place] [id number] Medicare Wellness [facility] Comment on above: Medicare Wellness Start: 06-19-2024 BP Controlled (<130/80) BP Controlle d (<130/80) [facility] Start: 06-18-2024 Annual PCP Team Supervisor [employer] noe Disease Visit Annual PCP Team Chronic Disease Visit [facility] Start: 06-18-2024 Diabetic foot examination Diabetic Foot Exam [facility] Start: 06-17-2024 End: 06-17-2024 Patient encounter procedure 06/17/2024 9:15 AM EST Office Visit Endocrinology [address] [place], [place] [address] Claribel Cope APRN.FILM PROCESSOR [address] [place] [address] 6 MTH F/U Endocrinology Comment on above: 6 MTH F/U Start: 06-10-2024 PROSTATE CANCER SCREENING DISCUSSION PROSTATE CANCER SCREENING DISCUSSION [facility] Start: 06-07-2024 End: 09-06-2024 Comprehensive metabolic 2000 panel - Serum or Plasma COMPREHENSIVE METABOLIC PANEL Lab Routine Diabetes mellitus treated with insulin (HCC) Expected: 06/07/2024, Expires: 09/06/2024 [facility] Work Phone: Comment on above: Expected: 06/07/2024 , Expires: 09/06/2024 Start: 06-07-2024 End: 09-06-2024 Hemoglobin A1c in Blood HEMOGLOBIN A1C Lab Routine Diabetes mellitus treated with insulin (HCC) Expected: 06/07/2024, Expires: 09/06/2024 [facility] Comment on above: Expected: 06/07/2024 , Expires: 09/06/2024 Start: 06-07-2024 End: 09-06-2024 LIPID PANEL, NONFASTING LIPID PANEL, NONFASTING Lab Routine Diabetes mellitus treated with insulin (HCC) Expected: 06/07/2024, Expires: 09/06/2024 [facility] Comment on above: Expected: 06/07/2024 , Expires: 09/06/2024 Start: 06-07-2024 End: 09-06-2024 Microalbumin/Creatinine [Mass Ratio] in Urine ALBUMIN/CREATININE RATIO, URINE Lab Routine Diabetes mellitus treated with insulin ([facility]) Expected: 06/07/2024, Expires: 09/06/2024 [facility] Comment on above: Expected: 06/07/2024 , Expires: 09/06/2024 Start: 05-25-2024 Covid-19 Vaccine ( season) Covid-19 Vaccine () [facility] Start: 05-16-2024 Creatinine measurement Serum Creatin ine [facility] Start: 03-13-2024 BP CONTROLLED (<130/80) BP CONTROLLE D (<130/80) [facility] Start: 03-08-2024 Covid-19 Vaccine ( season) Covid-19 Vaccine () [facility] Start: 03-08-2024 Covid-19 Vaccine ( season) Covid-19 Vaccine () [facility] Start: 03-08-2024 Influenza vaccination Influenza Vacc ine (#1) [facility] Start: 03-05-2024 Hemoglobin A1c measurement HbA1C [facility] Start: 02-26-2024 Hepatitis C antibody , confirmatory test DILATED RETINAL EXAM [facility] Start: 01-20-2024 End: 01-20-2024 Patient encounter procedure 01/20/2024 7:20 AM EDT Office Visit [facility] [address] [facility] [place] [address] [place] Nation PA-C [address] [place] [address] BP follow up Family Wilmer Clark Comment on above: BP follow up Start: 12-27-2023 BP CONTROLLED (<130/80) BP CONTROLLE D (<130/80) [facility] Start: 12-18-2023 End: 12-18-2023 Patient encounter procedure 12/18/2023 7:00 AM EDT Office Visit [facility] Wilmer Clark [address] [place] [address] Crystal Nation PA-C [address] [place], [place] [id number] 6 month follow up Family Wilmer Clark Comment on above: 6 month follow up Start: 12-11-2023 End: 12-11-2023 Patient encounter procedure 12/11/2023 9:15 AM EDT Office Visit Endocrinology [address] [place] [address] Claribel Cope, DEMAR.FILM PROCESSOR [address] [place] [address] Follow up Endocrinology Comment on above: Follow up Start: 12-07-2023 ANNUAL PCP TEAM SURFACE MOUNT TECHNOLOGY OPERATOR NOE DISEASE VISIT ANNUAL PCP TEAM CHRONIC DISEASE VISIT [facility] Start: 11-29-2023 Hepatitis B surface antibody level LDL CHOLESTEROL [facility] Start: 11-14-2023 Hemoglobin A1c measurement HBA1C TEST [facility] Start: 09-06-2023 End: 11-06-2023 ALBUMIN/CREAT RATIO RND UR ALBUMIN/CREAT RATIO RND UR Lab Routine Type II diabetes mellitus with manifestations (HCC) Expected: 09/06/2023, Expires: 11/06/2023 [facility] Work Phone: Comment on above: Expected: 09/06/2023 , Expires: 11/06/2023 Start: 09-06-2023 End: 11-06-2023 Comprehensive metabolic 2000 panel - Serum or Plasma COMP METABOLIC PANEL Lab Routine Type II diabetes mellitus with manifestations (HCC) Expected: 09/06/2023, Expires: 11/06/2023 [facility] Work Phone: Comment on above: Expected: 09/06/2023 , Expires: 11/06/2023 Start: 09-06-2023 End: 11-06-2023 Hemoglobin A1c in Blood HGB A1C Lab Routine Type II diabetes mellitus with manifestations (HCC) Expected: 09/06/2023, Expires: 11/06/2023 [facility] Work Phone: Comment on above: Expected: 09/06/2023 , Expires: 11/06/2023 Start: 09-06-2023 End: 11-06-2023 LIPID PANEL, NONFASTING LIPID PANEL, NONFASTING Lab Routine Type II diabetes mellitus with manifestations (HCC) Expected: 09/06/2023, Expires: 11/06/2023 [facility] Work Phone: Comment on above: Expected: 09/06/2023 , Expires: 11/06/2023 Start: 08-16-2023 Hemoglobin A1c measurement HbA1C [facility] Start: 07-08-2023 Advance Directive Discussion Advance Directive Discussion [facility] Start: 07-08-2023 Behavioral Health Screening Behavioral Health Screening [facility] Start: 07-08-2023 Depression Assessment Depression Ass essment [facility] Start: 07-02-2023 Covid-19 Vaccine () Covid-19 Vaccine () [facility] Start: 06-28-2023 ANNUAL PCP TEAM SURFACE MOUNT TECHNOLOGY OPERATOR NOE DISEASE VISIT ANNUAL PCP TEAM CHRONIC DISEASE VISIT [facility] Start: 06-07-2023 End: 08-07-2023 ALBUMIN/CREAT RATIO RND UR ALBUMIN/CREAT RATIO RND UR Lab Routine Type II diabetes mellitus with manifestations (HCC) Expected: 06/07/2023, Expires: 08/07/2023 [facility] Work Phone: Comment on above: Expected: 06/07/2023 , Expires: 08/07/2023 Start: 06-07-2023 End: 08-07-2023 Comprehensive metabolic 2000 panel - Serum or Plasma COMP METABOLIC PANEL Lab Routine Type II diabetes mellitus with manifestations (HCC) Expected: 06/07/2023, Expires: 08/07/2023 [facility] Work Phone: Comment on above: Expected: 06/07/2023 , Expires: 08/07/2023 Start: 06-07-2023 End: 08-07-2023 Hemoglobin A1c in Blood HGB A1C Lab Routine Type II diabetes mellitus with manifestations (HCC) Expected: 06/07/2023, Expires: 08/07/2023 [facility] Work Phone: Comment on above: Expected: 06/07/2023 , Expires: 08/07/2023 Start: 06-07-2023 End: 08-07-2023 LIPID PANEL, NONFASTING LIPID PANEL, NONFASTING Lab Routine Type II diabetes mellitus with manifestations (HCC) Expected: 06/07/2023, Expires: 08/07/2023 [facility] Work Phone: Comment on above: Expected: 06/07/2023 , Expires: 08/07/2023 Start: 05-30-2023 ANNUAL PCP TEAM SURFACE MOUNT TECHNOLOGY OPERATOR NOE DISEASE VISIT ANNUAL PCP TEAM CHRONIC DISEASE VISIT [facility] Start: 05-24-2023 End: 07-24-2023 ALBUMIN/CREAT RATIO [...] neurological manifestations (HCC) Expected: 05/24/2023, Expires: 07/24/2023 [facility] Work Phone: Comment on above: Expected: 05/24/2023 , Expires: 07/24/2023 Start: 05-24-2023 End: 07-24-2023 CBC W Auto Differential panel - Blood CBC + DIFF Lab Routine 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 Expected: 05/24/2023, Expires: 07/24/2023 [facility] Work Phone: Comment on above: Expected: 05/24/2023 [...] benign Hyperlipidemia, mixed Expected: 05/24/2023, Expires: 07/24/2023 [facility] Work Phone: Comment on above: Expected: 05/24/2023 [...] neurological manifestations (HCC) Expected: 05/24/2023, Expires: 07/24/2023 [facility] Work Phone: Comment on above: Expected: 05/24/2023 [...] benign Hyperlipidemia, mixed Expected: 05/24/2023, Expires: 07/24/2023 [facility] Work Phone: Comment on above: Expected: 05/24/2023 , Expires: 07/24/2023 Start: 05-16-2023 Hepatitis B surface antibody level LDL CHOLESTEROL [facility] Start: 03-27-2023 Covid-19 Vaccine () Covid-19 Vaccine () [facility] Start: 03-27-2023 COVID-19 VACCINE (7 - Pfizer risk series) COVID-19 VACCINE (7 - Pfizer risk series) [facility] Start: 03-08-2023 [facility] Start: 02-28-2023 Hemoglobin A1c/Hemoglobin.total in Blood HBA1C [facility] Start: 01-12-2023 [facility] Start: 01-11-2023 [facility] Start: 01-10-2023 [facility] Start: 01-09-2023 [facility] Start: 01-08-2023 [facility] Start: 01-07-2023 Referral to service [facility] Start: 01-07-2023 Patient discharge [facility] Start: 01-07-2023 Wound care [facility] Start: 01-06-2023 Oxygen therapy [facility] Start: 01-04-2023 Referral to occupational therapist [facility] Start: 01-04-2023 Referral to service [facility] Start: 01-04-2023 Anaerobic microbial culture Anaerobic Culture [facility] Start: 01-04-2023 Blood chemistry [facility] Start: 01-03-2023 Consultation [facility] Start: 01-03-2023 Consultation for treatment [facility] Start: 01-03-2023 Following clinical pathway protocol [facility] Start: 01-03-2023 Bacteria identified in Blood by Culture Blood Culture [facility] Start: 01-03-2023 Bacteria identified in Urine by Culture Urine Culture [facility] Start: 01-03-2023 Respiratory Panel (PCR) Respiratory Panel (PCR) [facility] Start: 01-03-2023 Assessment of risk o f venous thromboembolism [facility] Start: 01-03-2023 Care regimes management [facility] Start: 01-03-2023 Insertion of cathete r into peripheral vein [facility] Start: 01-03-2023 Providing care according to standard [facility] Start: 01-03-2023 Referral to pit shovel operator [facility] Start: 01-03-2023 [facility] Start: 01-03-2023 Verification routine [facility] Start: 01-03-2023 Admission procedure [facility] Start: 01-03-2023 MRI of lower extremity Lower Ext/No Jt/w/o [facility] Start: 01-03-2023 [facility] Start: 01-03-2023 End: 01-03-2023 Blood culture [facility] Start: 11-19-2022 End: 01-19-2023 25-hydroxyvitamin D3 [Mass/volume] in Serum or Plasma VITAMIN D 25 HYDROXY Lab Routine Vitamin D deficiency Expected: 11/19/2022, Expires: 01/19/2023 [facility] Work Phone: Comment on above: Expected: 11/19/2022 , Expires: 01/19/2023 Start: 11-19-2022 End: 01-19-2023 ALBUMIN/CREAT RATIO RND UR ALBUMIN/CREAT RATIO RND UR Lab Routine 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 disease, with long-term current use of insulin (HCC) Expected: 11/19/2022, Expires: 01/19/2023 [facility] Work Phone: Comment on above: Expected: 11/19/2022 , Expires: 01/19/2023 Start: 11-19-2022 End: 01-19-2023 CBC W Auto Differential panel - Blood CBC + DIFF Lab Routine Essential hypertension, benign 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 disease, with long-term current use of insulin (HCC) Expected: 11/19/2022, Expires: 01/19/2023 [facility] Work Phone: Comment on above: Expected: 11/19/2022 , Expires: 01/19/2023 Start: 11-19-2022 End: 01-19-2023 Comprehensive metabolic 2000 panel - Serum or Plasma COMP METABOLIC PANEL Lab Routine Essential hypertension, benign 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 disease, with long-term current use of insulin (HCC) Expected: 11/19/2022, Expires: 01/19/2023 [facility] Work Phone: Comment on above: Expected: 11/19/2022 , Expires: 01/19/2023 Start: 11-19-2022 End: 01-19-2023 Hemoglobin A1c in Blood HGB A1C Lab Routine 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 disease, with long-term current use of insulin ([facility]) Expected: 11/19/2022, Expires: 01/19/2023 [facility] Work Phone: Comment on above: Expected: 11/19/2022 , Expires: 01/19/2023 Start: 11-19-2022 End: 01-19-2023 LIPID PANEL, NONFASTING LIPID PANEL, NONFASTING Lab Routine Hyperlipidemia, mixed Expected: 11/19/2022, Expires: 01/19/2023 [facility] Work Phone: Comment on above: Expected: 11/19/2022 , Expires: 01/19/2023 Start: 11-19-2022 End: 01-19-2023 Prostate specific Ag [Mass/volume] in Serum or Plasma PSA/PROSTSPECAG DIAG Lab Routine Prostate disorder Expected: 11/19/2022, Expires: 01/19/2023 [facility] Work Phone: Comment on above: Expected: 11/19/2022 , Expires: 01/19/2023 Start: 11-19-2022 End: 01-19-2023 Urinalysis complete panel - Urine URINALYSIS, WITH MICROSCOPIC Lab Routine Essential hypertension, benign 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 disease, with long-term current use of insulin ([facility]) Expected: 11/19/2022, Expires: 01/19/2023 [facility] Work Phone: Comment on above: Expected: 11/19/2022 , Expires: 01/19/2023 Start: 11-16-2022 3 comp foot exam completed DIABETIC FOOT EXAM [facility] Start: 11-16-2022 Adult depression screening assessment DEPRESSION SCREENING [facility] Start: 11-16-2022 ANNUAL PCP TEAM SURFACE MOUNT TECHNOLOGY OPERATOR NOE DISEASE VISIT ANNUAL PCP TEAM CHRONIC DISEASE VISIT [facility] Start: 11-16-2022 BP CONTROLLED (<130/80) BP CONTROLLE D (<130/80) [facility] Start: 11-16-2022 End: 11-16-2022 Patient encounter procedure 11/16/2022 Office Visit Transplant Surgery Jim Squires MBBS [address] [place] [address] [facility] Start: 11-16-2022 SHINGRIX VACCINE (3 of 3) SHINGRIX VACCINE (3 of 3) [facility] Comment on above: Postponed from 05/07 (Insurance Coverage) Start: 11-13-2022 Hemoglobin A1c measurement HBA1C TEST [facility] Start: 11-08-2022 Microalbumin measurement, urine, quantitative URINE MICROALBUMIN TEST [facility] Start: 11-08-2022 Prostate specific antigen measurement PROSTATE CANCER SCREENING DISCUSSION [facility] Start: 11-08-2022 Urine screening for protein URINE MICROALBUMIN TEST [facility] Start: 11-02-2022 Colonoscopy w/biopsy single/multiple COLONOSCOPY AND BIOPSY [facility] Start: 11-02-2022 Patient discharge [facility] Start: 10-09-2022 Hepatitis C antibody , confirmatory test DILATED RETINAL EXAM [facility] Start: 09-30-2022 Colonoscopy COLONOSCOPY [facility] Start: 09-30-2022 COLORECTAL CANCER SCREENING COLORECTAL CANCER SCREENING [facility] Start: 08-16-2022 Hemoglobin A1c/Hemoglobin.total in Blood HBA1C [facility] Start: 08-07-2022 Hepatitis C antibody , confirmatory test DILATED RETINAL EXAM [facility] Start: 07-08-2022 ADVANCE DIRECTIVE DISCUSSION ADVANCE DIRECTIVE DISCUSSION [facility] Start: 07-08-2022 DEPRESSION ASSESSMENT DEPRESSION ASS ESSMENT [facility] Start: 05-18-2022 Hepatitis B screening URINE ALBUMIN:CREATININE RATIO [facility] Start: 05-17-2022 ANNUAL PCP TEAM SURFACE MOUNT TECHNOLOGY OPERATOR NOE DISEASE VISIT ANNUAL PCP TEAM CHRONIC DISEASE VISIT [facility] Start: 05-17-2022 BP CONTROLLED (<130/80) BP CONTROLLE D (<130/80) [facility] Start: 05-17-2022 COVID-19 VACCINE (6 - Pfizer risk series) COVID-19 VACCINE (6 - Pfizer risk series) [facility] Start: 05-17-2022 Pneumococcal vaccination PNEUMOCOCCAL VACCINE SERIES (2 - PCV) [facility] Start: 05-11-2022 Hemoglobin A1c measurement HBA1C TEST [facility] Start: 05-10-2022 Hepatitis B surface antibody level LDL CHOLESTEROL [facility] Start: 05-04-2022 End: 2022 Hemoglobin A1c/Hemoglobin.total [...] of insulin (HCC) Expected: 05/04/2022, Expires: 2022 [facility] Work Phone: Comment on above: Expected: 05/04/2022 [...] benign Hyperlipidemia, mixed Expected: 05/04/2022, Expires: 2022 [facility] Work Phone: Comment on above: Expected: 05/04/2022 , Expires: 2022 Start: 03-08-2022 Influenza vaccination [facility] Start: 02-06-2022 COVID-19 VACCINE (5 - Booster for Pfizer series) COVID-19 VACCINE (5 - Booster for Pfizer series) [facility] Start: 12-02-2021 COVID-19 VACCINE (5 - Booster for Pfizer series) COVID-19 VACCINE (5 - Booster for Pfizer series) [facility] Start: 11-07-2021 Adult depression screening assessment DEPRESSION SCREENING [facility] Start: 11-06-2021 End: 01-06-2022 ALBUMIN/CREAT RATIO [...] neurological manifestations (HCC) Expected: 11/06/2021, Expires: 01/06/2022 [facility] Work Phone: Comment on above: Expected: 11/06/2021 [...] chronic kidney disease Expected: 11/06/2021, Expires: 01/06/2022 [facility] Work Phone: Comment on above: Expected: 11/06/2021 [...] neurological manifestations (HCC) Expected: 11/06/2021, Expires: 01/06/2022 [facility] Work Phone: Comment on above: Expected: 11/06/2021 [...] neurological manifestations (HCC) Expected: 11/06/2021, Expires: 01/06/2022 [facility] Work Phone: Comment on above: Expected: 11/06/2021 [...] Essential hypertension, benign Expected: 11/06/2021, Expires: 01/06/2022 [facility] Work Phone: Comment on above: Expected: 11/06/2021 , Expires: 01/06/2022 Start: 11-06-2021 End: 01-06-2022 Prostate specific Ag [Mass/volume] in Serum or Plasma PSA/PROSTSPECAG DIAG Lab Routine Prostate disorder Expected: 11/06/2021, Expires: 01/06/2022 [facility] Work Phone: Comment on above: Expected: 11/06/2021 [...] edema, with long-term current use of insulin ([facility]) Hyperlipidemia, mixed Essential hypertension, benign Diabetes mellitus type 2 with neurological manifestations ([facility]) Expected: 11/06/2021, Expires: 01/06/2022 [facility] Work Phone: Comment on above: Expected: 11/06/2021 , Expires: 01/06/2022 Start: 11-06-2021 End: 01-06-2022 VITAMIN D 25 HYDROXY VITAMIN D 25 HYDROXY Lab Routine Vitamin D deficiency Expected: 11/06/2021, Expires: 01/06/2022 [facility] Work Phone: Comment on above: Expected: 11/06/2021 , Expires: 01/06/2022 Start: 08-18-2021 Hemoglobin A1c/Hemoglobin.total in Blood HBA1C [facility] Start: 08-02-2021 COVID-19 VACCINE (4 - Booster for Pfizer series) COVID-19 VACCINE (4 - Booster for Pfizer series) [facility] Start: 07-08-2021 ADVANCE DIRECTIVE DISCUSSION ADVANCE DIRECTIVE DISCUSSION [facility] Start: 07-08-2021 DEPRESSION ASSESSMENT DEPRESSION ASS ESSMENT [facility] Start: 06-06-2021 3 comp foot exam completed DIABETIC FOOT EXAM [facility] Start: 05-12-2021 Lipid panel LIPIDS [facility] Start: 05-12-2021 LIPIDS LIPIDS [facility] Start: 2020 Abdominal aortic aneurysm screening ABDOMINAL AORTIC ANEURYSM HIGH RISK SCREEN [facility] Start: 10-31-2019 SHINGRIX VACCINE (3 of 3) SHINGRIX VACCINE (3 of 3) [facility] Start: 03-25-2019 End: 03-25-2019 Clinical Support Encounter 03/25/2019 Clinical Support Encounter [facility] Start: 03-08-2019 Influenza vaccination INFLUENZA VACC INE (#1) [facility] Start: 02-11-[address]/Rest Nuclear Med Order [facility] Work Phone: Start: 12-26-2018 Echocardiography [facility] Work Phone: Start: 09-30-2018 Colonoscopy COLORECTAL CAN CER SCREENING DISCUSSION [facility] Start: 09-30-2018 Screening for malign ant neoplasm of colon COLORECTAL CANCER SCREENING DISCUSSION [facility] Start: 11-13-2017 Hepatitis B Vaccine (2 of 3 - Risk 3-dose series) Hepatitis B Vaccine (2 of 3 - Risk 3-dose series) [facility] Start: 05-09-2017 FECAL OCCULT BLOOD FECAL OCCULT BLOO D [facility] Start: 05-09-2017 Screening for malign ant neoplasm of colon Fecal Occult Blood [facility] Start: 2015 RSV Vaccine (1 - 1-d ose 60+ series) RSV Vaccine (1 - 1-dose 60+ series) [facility] Start: 2005 Colonoscopy COLON CANCER S CREENING DISCUSSION [facility] Start: 2005 Prostate specific antigen measurement PROSTATE CANCER SCREENING DISCUSSION [facility] Start: 2005 Zoster vaccine hzv l ze for subcutaneous use ZOSTER (SHINGLES) VACCINE (1 of 2) [facility] Start: 2000 COLOGUARD (FIT-DNA) COLOGUARD (FIT-D NA) [facility] Start: [address] COLONOGRAPHY [facility] Start: 2000 Screening for malign ant neoplasm of colon [facility] Start: 2000 SIGMOIDOSCOPY SIGMOIDOSCOPY [facility] Start: 1995 Fasting lipid profile LIPID SCREENIN G [facility] Start: 1974 Third diphtheria, tetanus and acellular pertussis (DTaP) vaccination TDAP (ADULT) [facility] Start: 1973 SERUM CREATININE SERUM CREATININE Cl [facility] Start: 1973 Tetanus vaccination TETANUS [facility] Start: 1968 HIV screening HIV SCREENING DISCUSSION [facility] Start: 1955 ABDOMINAL AORTIC ANEURYSM SCREENING ABDOMINAL AORTIC ANEURYSM SCREENING [facility] Start: 1955 Diabetic foot examination DIABETIC FOOT EX[facility] Start: 1955 Diabetic retinal eye exam EYE EX[facility] Start: 1955 Glaucoma screening [facility] Start: 1955 Hepatitis C antibody , confirmatory test [facility] Acid fast bacilli culture [facility] Anion gap measurement [facility] BUN/Creatinine ratio [facility] Calcium [Mass/volume ] in Serum or Plasma [facility] Carbon dioxide, tota l [Moles/volume] in Serum or Plasma [facility] Chloride [Moles/volu me] in Serum or Plasma [facility] Creatinine [Moles/volume] in Serum or Plasma [facility] Glucose [Mass/volume ] in Serum or Plasma [facility] Hematocrit [Volume Fraction] of Blood [facility] Hemoglobin [Mass/volume] in Blood [facility] Hemoglobin A1c/Hemoglobin.total in Blood HEMOGLOBIN A1C (POC) Lab Routine Type II diabetes mellitus with manifestations (HCC) Ordered: 03/13/2023 [facility] Work Phone: Comment on above: Ordered: 03/13/2023 Leukocytes [#/volume ] in Blood [facility] Mean corpuscular hemoglobin concentration determination [facility] Mean corpuscular hemoglobin determination [facility] Measurement of renal function [facility] Mycobacterium sp identified in Unspecified specimen by Organism specific culture [facility] Neutrophil count [facility] Neutrophil percent differential count [facility] Patient Education Osteomyelitis Dc [facility] Work Phone: Patient referral [facility] Work Phone: Platelets [#/volume] in Blood [facility] Potassium [Moles/volume] in Serum or Plasma [facility] Red blood cell count [facility] Red cell distributio n width determination [facility] Respiratory pathogen s DNA and RNA panel - Respiratory specimen by JUAN with probe detection [facility] Sodium [Moles/volume ] in Serum or Plasma [facility] Tacrolimus [Mass/volume] in Blood [facility] Tacrolimus [Mass/volume] in Blood [facility] Urea nitrogen [Mass/volume] in Serum or Plasma [facility] Vancomycin [Mass/volume] in Serum or Plasma --trough [facility] NEGATED: Highlighted row has been ruled out! Planned Goals not documented [facility] Work Phone: Immunizations Immunization Date Immunization Notes Care Provider [facility] 04-12-2024 influenza, high dose seasonal, preservative-free Alo Avina MD Work Phone: [facility] 04-12-2024 influenza virus vacc ine, unspecified formulation Claribel Cioce RECOVERY ROOM RN.FILM PROCESSOR Work Phone: [facility] 04-21-2023 respiratory syncytia l virus (RSV) vaccine, adjuvanted (AREXVY) Aol Avina MD Work Phone: [facility] 04-07-2023 influenza, high dose seasonal, preservative-free Alo Avina MD Work Phone: [facility] 04-07-2023 influenza virus vacc ine, unspecified formulation Crystal Nation PA-C Work Phone: [facility] 04-07-2022 influenza, high dose seasonal, preservative-free Alo Avina MD Work Phone: [facility] 04-07-2022 influenza virus vacc ine, unspecified formulation Claribel Cioce RECOVERY ROOM RN.FILM PROCESSOR Work Phone: [facility] 12-04-2021 zoster vaccine recombinant Alo Avina MD Work Phone: [facility] 11-10-2021 pneumococcal polysaccharide vaccine, 23 valent Alo Avina MD Work Phone: [facility] 05-02-2021 COVID-19 vaccine, MR KAL, Pfizer, 0.3 ML [facility] Prep Covid Mab Transplant [facility] 04-15-2021 influenza, high-dose , quadrivalent vaccine (FLUZONE HIGH DOSE QUADRIVALENT) Alo Avina MD Work Phone: [facility] 04-15-2021 influenza virus vacc ine, unspecified formulation [facility] Prep Covid Mab Transplant [facility] 10-04-2020 COVID-19 vaccine, ag e 12+ yr (PFIZER-BIONTECH - PURPLE TOP) Alo Avina MD Work Phone: [facility] 09-12-2020 COVID-19 vaccine, ag e 12+ yr (PFIZER-BIONTECH - PURPLE TOP) Alo Avina MD Work Phone: [facility] 05-13-2020 influenza, injectabl e, quadrivalent, contains preservative Alo Avina MD Work Phone: [facility] Work Phone: 09-22-2019 pneumococcal polysaccharide vaccine, 23 valent Crystal Nation PA-C Work Phone: [facility] 08-20-2019 hepatitis B vaccine, adult dosage Crystal Nation PA-C Work Phone: [facility] 04-23-2019 hepatitis B vaccine, adult dosage Crystal Nation PA-C Work Phone: [facility] 03-30-2019 influenza, seasonal, injectable Alo Avina MD Work Phone: [facility] 03-17-2019 hepatitis B vaccine, adult dosage Crystal Nation PA-C Work Phone: [facility] 03-12-2019 zoster vaccine recombinant Alo Avina MD Work Phone: [facility] 03-11-2019 measles, mumps and rubella virus vaccine Alo Avina MD Work Phone: [facility] 02-17-2019 hepatitis B vaccine, adult dosage Crystal Nation PA-C Work Phone: [facility] 04-15-2018 hepatitis B vaccine, adult dosage Crystal Nation PA-C Work Phone: [facility] 01-14-2018 hepatitis B vaccine, adult dosage Crystal Nation PA-C Work Phone: [facility] 12-19-2017 hepatitis B vaccine, adult dosage Crystal Nation PA-C Work Phone: [facility] 11-19-2017 hepatitis B vaccine, adult dosage Crystal Nation PA-C Work Phone: [facility] 10-16-2017 hepatitis B vaccine, adult dosage Alo Avina MD Work Phone: [facility] 04-17-2017 influenza, injectabl e, quadrivalent, preservative free Alo Avina MD Work Phone: [facility] 04-17-2017 influenza, seasonal, injectable Alo Avina MD Work Phone: [facility] 09-20-2016 pneumococcal conjuga te vaccine, 13 valent Alo Avina MD Work Phone: [facility] 06-06-2016 zoster vaccine, live Alo Avina MD Work Phone: [facility] Work Phone: 01-25-2016 tetanus toxoid, redu martin diphtheria toxoid, and acellular pertussis vaccine, adsorbed Alo Avina MD Work Phone: [facility] 06-06-2015 tetanus and diphther ia toxoids, adsorbed, preservative free, for adult use (2 Lf of tetanus toxoid and 2 Lf of diphtheria toxoid) Alo Avina MD Work Phone: [facility] 06-06-2015 tetanus and diphther ia toxoids, adsorbed, preservative free, for adult use (5 Lf of tetanus toxoid and 2 Lf of diphtheria toxoid) Alo Avina MD Work Phone: [facility] 04-07-2015 influenza, injectabl e, quadrivalent, preservative free [facility] 04-07-2015 influenza, seasonal, injectable Alo Avina MD Work Phone: [facility] 05-05-2014 influenza, seasonal, injectable Alo Avina MD Work Phone: [facility] 04-19-2012 influenza virus vacc ine, unspecified formulation Alo Avina MD Work Phone: [facility] 07-08-2009 pneumococcal conjuga te vaccine, 13 valent Alo Avina MD Work Phone: [facility] 05-11-2009 novel influenza-H1N1 -09, preservative-free, injectable Alo Avina MD Work Phone: [facility] 04-02-2009 influenza virus vacc ine, unspecified formulation Alo Avina MD Work Phone: [facility] 05-05-2007 influenza virus vacc ine, unspecified formulation Alo Avina MD Work Phone: [facility] Work Phone: 02-06-2007 pneumococcal polysaccharide vaccine, 23 valent Alo Avina MD Work Phone: [facility] Work Phone: 05-11-2006 influenza virus vacc ine, unspecified formulation Alo Avina MD Work Phone: [facility] Work Phone: 11-23-2005 tetanus and diphther ia toxoids, adsorbed, preservative free, for adult use (2 Lf of tetanus toxoid and 2 Lf of diphtheria toxoid) Alo Avina MD Work Phone: [facility] Work Phone: 11-23-1991 diphtheria and tetan us toxoids, adsorbed for pediatric use Alo Avina MD Work Phone: [facility] Work Phone: Payers Date Payer Category Payer Self-pay [id number] 07-08-2020 Medicare HUMANA MEDICARE HUMANA GOLD PLUS [id number] 07/08/2020-Present [phone] [address] [address] [place] [address] O [id number] 07-08-2020 Medicare [id number] 07-08-2020 Medicare (Managed Care) HUMANA GOLD PLUS [id number] 07-08-2020 Private Health Insurance [id number] 07-08-2019 Unknown MMO MMO TPA [id number] 07/08/2019-Present [address] [place] [address] PPO [id number] 07-08-2019 Unknown [id number] 07-08-2016 Unknown [id number] 1955 Unknown [id number] Medicare [id number] Unknown [facility] COMPMANAGEME NT [facility] COMPMANAGEMENT xxxxxxxxx Effective for all dates xxxxxxxxx [id number] Unknown JODY VERA HM O PPO POS xxxxxxxxxxxx Effective for all dates xxxxxxxxxxxx [id number] Unknown [id number] Unknown [id number] Unknown [id number] Unknown [id number] Unknown [id number] Unknown [id number] Unknown [id number] Unknown [id number] Social History Date Type Detail Facility Start: 02-10-2019 End: 10-28-2024 Tobacco smoking status NHIS Former smoker [facility] Work Phone: Start: 1955 Sex Assigned At Not on file [facility] Start: 02-10-2019 Alcohol intake Not Asked [facility] Start: 07-08-1971 End: 07-08-1976 History of tobacco use Cigarette Smoker [facility] Work Phone: Start: 05-17-2021 End: 11-16-2022 Alcohol intake Current drinker of alcohol (finding) [facility] Start: 09-03-2019 End: 01-03-2023 Tobacco smoking status OKIS Unknown if ever smoked [facility] Start: 11-01-2017 [facility] Start: 11-01-2017 None [facility] Start: 10-31-2017 Spouse/ Signif icant Other [facility] Start: 11-02-2017 Cigarettes [facility] Start: 1955 Sex Assigned At Male [facility] Start: 07-08-1971 End: 07-08-1976 History of tobacco use Current smoker [facility] Start: 06-08-2019 End: 03-13-2023 Cigarettes smoked current (pack per day) - Reported 0.5 [facility] Work Phone: Start: 06-08-2019 End: 10-28-2024 Tobacco use and exposure Smokeless tobacco non-user [facility] Start: 06-08-2019 History SDOH Alcohol Frequency 2 [facility] Start: 06-08-2019 History SDOH Alcohol Std Drinks 1 [facility] Start: 11-06-2021 End: 05-30-2022 Exposure to SARS-CoV-2 (event) Not sure [facility] Start: 05-30-[address] [facility] Start: 12-06-2022 End: 03-13-2023 Tobacco use panel [facility] Work Phone: Start: 06-08-2012 Adult Depression Screening Assessment 0 [facility] Work Phone: Start: 12-18-2023 End: 10-28-2024 Alcohol intake Ex-drinker (finding) [facility] How often to you hav e a drink containing alcohol? Never [facility] Start: 10-20-2024 Sex Male (finding) [facility] History of tobacco use Passive smoker [facility] NEGATED: Highlighted row - - [facility] Work Phone: Medical Equipment Procedure Code Equipment Code Equipment Original Text Equipment Identifier Dates Putty Dbx 2.5cc - [id number] Start: 10-25-2015 Screw 2.3x12mm Co-T2312 - [id number] Start: 10-25-2015 Screw Crtx Stp Ftrd 2.4x18 - [id number] Start: 10-25-2015 Screw Crtx Stp Ftrd 2.4x14 - [id number] Start: 10-25-2015 Screw 2.3x16mm Co-T2316 - [id number] Start: 10-25-2015 Screw 2.3x20mm Co-T2320 - [id number] Start: 10-25-2015 Screw 2.3x14mm Co-T2314 - [id number] Start: 10-25-2015 Plate Long Right 70-0048 - [id number] Start: 10-25-2015 Screw Hexalobe 3.5mm X 12mm - [id number] Start: 10-25-2015 Screw Hexalobe 3.5mm X 14mm - [id number] Start: 10-25-2015 14 Mm Accumed Screw-3.5mm Locking Hexalobe, Ref# [id number], [id number] Start: 10-25-2015 Plate Lc 2.4x52 06h - [id number] Start: 10-25-2015 Screw Lck Stp Ftrd 2.4x14 - [id number] Start: 10-25-2015 Screw Lck Stp Ftrd 2.4x16 - [id number] Start: 10-25-2015 [id number], [id number], [id number], [id number], [id number], [id number], [id number] Start: 07-02-2014 End: 01-09-2025 Comment on above: [...] Ureteral Dbl J 6 X 12 - [id number] Start: 10-22-2019 Comment on above: Description: [...] Assessment Result Facility 01-07-2023 Functional status Chair Eduardo [facility] Work Phone: 04-09-2019 Are you deaf, or do you have serious difficulty hearing No 04/09/2019 1:59 PM EDT Roman Espino III, MD No [facility] 04-09-2019 Are you blind, or do you have serious difficulty seeing, even when wearing glasses No 04/09/2019 1:59 PM EDT Roman Espino III, MD No [facility] 04-09-2019 Do you have serious difficulty walking or climbing stairs No 04/09/2019 1:59 PM EDT Roman Espino III, MD No [facility] 04-09-2019 Do you have difficul ty dressing or bathing No 04/09/2019 1:59 PM EDT Roman Espino III, MD [facility] 04-09-2019 Because of a physica l, mental, or emotional condition, do you have difficulty doing errands alone such as visiting a physician's office or shopping No 04/09/2019 1:59 PM EDT Roman Espino III, MD [facility] NEGATED: Highlighted row Functional performance Functional status health issues are not documented Disease QV-Qfkpvsfhfw-Qezhkk Work Phone: Mental Status Date Assessment Result Facility 01-07-2023 Cognitive function Voice/Name [facility] Work Phone: 11-02-2022 Cognitive function Level Of Cons ciousness Sedated [facility] Work Phone: 11-02-2022 Cognitive function Patient Jacqueline elias Person;Place;Time [facility] Work Phone: 04-09-2019 Because of a physical, mental, or emotional condition, do you have serious difficulty concentrating, remembering, or making decisions No 04/09/2019 1:59 PM EDT Roman Espino III, MD [facility] NEGATED: Highlighted row Cognitive function [Interpretation] Cognitive status health issues are not documented Disease DP-Ybndjswdgt-Bugoc r Work Phone: Clinical Notes 12-05-2018 to 04-28-2025 Aurora Jules MA - 03/17/2025 12:03 PM EDTTelephone Encounter - Lisandra Velásquez MA - 02/19/2025 1:32 PM EDTTelephone Encounter - ChristenLisandra MA - 02/19/2025 1:32 PM EDT Note Date & Type Note Facility 04-28-2025 Note HNO ID: [id number] Author: ?, ?, ? Service: ? Author Type: ? Type: Progress Notes Filed: 04/28/2025 09:44 Note Text: POPULATION HEALTH NAVIGATION OUTREACH Action/FYI Patient outreach for HCCs HM due; A1c, flu Spoke with he had Flu and Covid 04/13 and 04/26. A1c orders in there has labs done at [facility] before appointment in Jun. Reason for Outreach Care Gap/HCC or Scheduling Wellness Visits Care Gaps due: HBA1C Flu Vaccine Patient Contacted: Spoke to patient/parent/or legal guardian Patient identified by name and : Yes Care Gap/HCC/Scheduling Wellness actions taken: HCC related Patient will walk in for labs Navigation Signature: Lisandra Duggan April 28, 2025 9:35 AM [facility] 04-28-2025 Note Patient Outreach (NE TNAV) RODRI GALE ([id number]) 1955 M Date Time Provider Department 04/28/25 ALO AVINA During your visit today, we recorded the following information about you: Lisandra Barahona 04/28/2025 9:44 AM Signed POPULATION HEALTH NAVIGATION OUTREACH Action/FYI Patient outreach for HCCs HM due; A1c, flu Spoke with he had Flu and Covid 04/13 and 04/26. A1c orders in there has labs done at [facility] before appointment in Jun. Reason for Outreach [...] tablet by mouth once daily. - Insulin Ferndale, Disposable, (BD ULTRAFINE III MINI PEN) 31 [...] Encounter Status:Closed by LISANDRA BARAHONA on 04/28/25 [facility] 04-23-2025 Note HNO ID: [id number] Author: RJ MENARD LPN Service: ? Author Type: Licensed Nurse Type: Progress Notes Filed: 04/23/2025 07:31 Note Text: Scan on 04/22/2025 3:26 PM by Provider, Irma PAFidelinaC: Consultation - Ophthalmology [facility] 03-29-2025 Note HNO ID: [id number] Author: ?, ?, ? Service: ? Author [...] Lisandra Duggan March 29, 2025 11:35 AM [facility] 03-29-2025 Note Patient Outreach (KELTON BRIGGSAV) RODRI GALE ([id number]) 1955 M Date Time Provider Department 03/29/25 [...] Clark Prescriptions as of 03/29/2025 - Insulin Ferndale, Disposable, (BD ULTRAFINE III MINI PEN) 31 [...] Encounter Status:Closed by LISANDRA BARAHONA on 03/29/25 [facility] 03-17-2025 Note HNO ID: [id number] Author: AURORA JULES MA Service: ? Author Type: Tailman Type: Progress Notes Filed: 03/17/2025 12:04 Note Text: Scan on 03/17/2025 10:50 AM by ProviderIrma PA-C: [facility] 03-17-2025 History of Presen t illness Narrative Scan on 03/17/2025 10:50 AM by ProviderIrma PAFidelinaC: [facility] documented in this encounter [facility] 02-19-2025 Telephone encounter Note Claribel Chaparroluiricardo ISAIAH does not complete forms for diabetic shoes. This was forwarded to PCP office. See telephone encounter dated 01/29/25. Lisandra Velásquez MA [facility] 02-19-2025 Miscellaneous Notes Claribel Cope ISAIAH does not complete forms for diabetic shoes. This was forwarded to PCP office. See telephone encounter dated 01/29/25. Lisandra Velásquez MA Jazlyn from [facility] [place] called to see if office had received forms to approve diabetic shoes. Jazlyn states that she has sent 3 time. If you have any question please call Jazlyn at [phone] select option 3. Candelaria Burrell LPN documented in this encounter [facility] 02-19-2025 Telephone encounter Note Jazlyn from [facility] [place] called to see if office had received forms to approve diabetic shoes. Jazlyn states that she has sent 3 time. If you have any question please call Jazlyn at [phone] select option 3. Candelaria Burrell LPN [facility] Work Phone: 02-02-2025 Telephone encounter Note Forms completed by PCP and faxed back to number below. Aurora Jules MA [facility] 02-02-2025 Miscellaneous Notes Forms completed by PCP and faxed back to number below. Aurora Jules MA Forms ready to be returned. Received fax from [facility] needing forms completed for Medicare Compliance fro pt's Diabetic shoes/inserts. Forms on PCP's desk. Please fax back to [phone]. Rj Menard LPN documented in this encounter [facility] 02-02-2025 Telephone encounter Note Forms ready to be returned. [facility] 01-29-2025 Telephone encounter Note Received fax from [facility] needing forms completed for Medicare Compliance fro pt's Diabetic shoes/inserts. Forms on PCP's desk. Please fax back to [phone]. Rj Menard LPN [facility] 01-20-2025 Note HNO ID: [id number] Author: AURORA JULES MA Service: ? Author Type: Tailman Type: Progress Notes Filed: 01/20/2025 08:38 Note Text: Ophthalmology OV, HM updated. Aurora Jules MA Scan on 01/19/2025 5:01 PM by ProviderIrma PAFidelinaC: Consultation - Ophthalmology [facility] 01-20-2025 History of Presen t illness Narrative Ophthalmology OV, HM updated. Aurora Jules MA Scan on 01/19/2025 5:01 PM by ProviderIrma PAFidelinaC: Consultation - Ophthalmology documented in this encounter [facility] 01-09-2025 Telephone encounter Note Prescription Refill [...] Requested Prescriptions Pending Prescriptions Disp Refills Insulin Ferndale, Disposable, (BD ULTRAFINE III MINI PEN) 31 gauge x 3/16 400 each 3 Sig: use four times/day Opal Dawn January 09, 2025 9:24 AM [facility] 01-09-2025 Miscellaneous Notes Prescription Refill Information [...] Requested Prescriptions Pending Prescriptions Disp Refills Insulin Ferndale, Disposable, (BD ULTRAFINE III MINI PEN) 31 gauge x 3/16 400 each 3 Sig: use four times/day Opal Dawn January 09, 2025 9:24 AM documented in this encounter [facility] 12-29-2024 Note HNO ID: [id number] Author: AURORA JULES MA Service: ? Author Type: Tailman Type: Progress Notes Filed: 12/29/2024 13:59 Note Text: New outside labs. View External Labs - Ur Creat MicroAlb Crea Ur [ID [id number]] [facility] 12-11-2024 Note HNO ID: [id number] Author: RJ MENARD LPN Service: ? Author Type: LICENSED NURSE Type: Progress Notes Filed: 12/11/2024 08:06 Note Text: Scan on 12/11/2024 3:09 AM by Provider, External, PA-C: Consultation - Ophthalmology [facility] 12-11-2024 History of Presen t illness Narrative Scan on 12/11/2024 3:09 AM by Irma Alvarado PA-C: Consultation - Ophthalmology documented in this encounter [facility] 11-25-2024 Note HNO ID: [id number] Author: RJ MENARD LPN Service: ? Author Type: LICENSED NURSE Type: Progress Notes Filed: 11/25/2024 07:36 Note Text: Scan on 11/25/2024 6:36 AM by ProviderIrma PA-C: Chemistry [facility] 11-20-2024 Telephone encounter Note Pt's next appt is 06/23/25 [facility] 11-20-2024 Miscellaneous Notes Pt's next appt [...] 2024 8:13 AM documented in this encounter [facility] 11-20-2024 Telephone encounter Note Prescription Refill [...] Marisabel Duggan November 20, 2024 8:13 AM [facility] Work Phone: 11-06-2024 Note HNO ID: [id number] Author: RJ MENARD LPN Service: ? Author Type: LICENSED NURSE Type: Progress Notes Filed: 11/06/2024 11:29 Note Text: Scan on 11/06/2024 9:26 AM by ProviderIrma PA-C: Consultation - Ophthalmology [facility] 11-06-2024 History of Presen t illness Narrative Scan on 11/06/2024 9:26 AM by ProviderIrma PA-C: Consultation - Ophthalmology documented in this encounter [facility] 10-28-2024 History of Presen t illness Narrative OFFICE VISIT PROGRESS NOTE CC Rodri Gale is a 69 year old who presents today for blood sugar review, insulin dose review, adjust. HPI Diagnosed with diabetes mellitus type II, ~ 1997 Hx of dialysis ~ 2 years Patient sts kidney issues are not secondary to his diabetes [place] it was related to medication overdose (BP [...] Diabetes mellitus type 2 with neurological manifestations ([facility]) 02/13/2013 Diabetic eye exam ([facility]) 10/09/2021 Last done 10/09/2021 [facility] Diabetic foot ([facility]) 06/23/2024 Sees Podiatry: Dr. 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, with long-term current use of insulin ([facility]) 09/20/2016 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 disease, with long-term current use of insulin ([facility]) 08/21/2019 Vitamin D deficiency 07/31/2017 Witnessed episode of apnea 11/23/2019 PAST SURGICAL HISTORY Procedure Laterality Date COLONOSCOPY FLX DX W/COLLJ SPEC WHEN PFRMD 09/30/2017 [facility]-Steph Espino--Repeat in 3 years-2020 FISTULA Left 09/11/2017 Radiocephalic arteriovenous fistula creation--[facility]--Steph Espino PAST SURGICAL HISTORY OF 06/07/2015 right grade II Open distal radius and ulnar shaft fracture PAST SURGICAL HISTORY OF Left 12/2022 right partial 5th metatarsal removal and 5th digit. PROSTATE SURGERY HX REM LESION TRUNK,ARM, LEG <0.5 CM 05/07/2007 Exc. piero cyst upper mid back FAMILY HISTORY Problem Relation Age of Onset Diabetes Mother Hypertension Mother Heart Mother [place] other (lung cancer) Mother bone metastasis Diabetes [...] 1 tablet by mouth once daily. Insulin Ferndale, Disposable, (BD ULTRAFINE III MINI PEN) 31 [...] Claribel Cope CNP documented in this encounter [facility] 10-28-2024 Note HNO ID: [id number] Author: CLARIBEL COPE APRN.ISAIAH Service: ? Author [...] issues are not secondary to his diabetes [place] it was related to medication overdose (BP [...] Diabetes mellitus type 2 with neurological manifestations ([facility]) 02/13/2013 Diabetic eye exam ([facility]) 10/09/2021 Last done 10/09/2021 [facility] Diabetic foot ([facility]) 06/23/2024 Sees Podiatry: Dr. 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 [facility] 10-27-2024 Note HNO ID: [id number] Author: RJ MENARD LPN Service: ? Author Type: LICENSED NURSE Type: Progress Notes Filed: 10/27/2024 07:11 Note Text: Scan on 10/26/2024 10:54 PM by ProviderIrma PA-C: Consultation - Ophthalmology [facility] 10-27-2024 History of Presen t illness Narrative Scan on 10/26/2024 10:54 PM by ProviderIrma PA-C: Consultation - Ophthalmology documented in this encounter [facility] 10-23-2024 Telephone encounter Note The following approved medication requests have been transmitted electronically. Requested Prescriptions Signed Prescriptions Disp Refills NIFEdipine ER (PROCARDIA XL) 30 mg 24 hr tablet 90 tablet 1 Sig: Take 1 tablet by mouth once daily. Authorizing Provider: ALO AVINA MD [facility] 10-23-2024 Miscellaneous Notes The following approved [...] 2024 8:17 AM documented in this encounter [facility] 10-23-2024 Telephone encounter Note The patient [...] Ybarra LPN October 23, 2024 8:17 AM [facility] 09-24-2024 Note HNO ID: [id number] Author: ROSIO SERVIN RN Service: ? Author [...] Servin RN September 24, 2024 12:09 PM [facility] 09-24-2024 History of Presen t illness Narrative [...] 2024 12:09 PM documented in this encounter [facility] 09-24-2024 Note Patient Outreach (AM BC) BALJINDERRODRI Wetzel ([id number]) 1955 M Date Time Provider Department 09/24/24 [...] tablet by mouth once daily. - Insulin Fern[place], Disposable, (BD ULTRAFINE III MINI PEN) 31 [...] 06/23/2024 Encounter Numbe (more content not included)... [facility] 09-14-2024 Note HNO ID: [id number] Author: KATRINA MACE MA Service: ? Author Type: Tailman Type: Progress Notes Filed: 09/14/2024 15:24 Note Text: Scan on 09/10/2024 10:17 PM by Provider, External, PA-C: Consultation - Ophthalmology Katrina Mace MA [facility] 09-14-2024 History of Presen t illness Narrative Scan on 09/10/2024 10:17 PM by ProviderIrma PA-C: Consultation - Ophthalmology Katrina Mace MA documented in this encounter [facility] 09-10-2024 Note HNO ID: [id number] Author: MARIA LUISA BARNETT MA Service: ? Author Type: Tailman Type: Progress Notes Filed: 09/10/2024 13:12 Note [...] Barnett MA September 10, 2024 8:45 AM [facility] 09-10-2024 History of Presen t illness Narrative [...] 2024 8:45 AM documented in this encounter [facility] 09-10-2024 Note Patient Outreach (KELTON TNAV) RODRI GALE ([id number]) 1955 M Date Time Provider Department 09/10/24 [...] tablet by mouth once daily. - Insulin Fern[place], Disposable, (BD ULTRAFINE III MINI PEN) 31 [...] Status:Closed by MARIA LUISA BARNETT on 09/10/24 [facility] 08-28-2024 Telephone encounter Note done [facility] 08-28-2024 Miscellaneous Notes done Pt's is requesting to renew pt's handicap placard. 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 Rj Menard LPN documented in this encounter [facility] 08-28-2024 Telephone encounter Note Pt's is requesting to renew pt's handicap placard. 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 Rj Menard LPN [facility] 07-16-2024 Note HNO ID: [id number] Author: RJ MENARD LPN Service: ? Author Type: LICENSED NURSE Type: Progress Notes Filed: 07/16/2024 07:37 Note Text: Scan on 07/15/2024 11:41 AM by Irma Alavrado PA-C: Chemistry [facility] 07-16-2024 History of Presen t illness Narrative Scan on 07/15/2024 11:41 AM by Irma Alvarado PA-C: Chemistry documented in this encounter [facility] 07-13-2024 Note HNO ID: [id number] Author: KATRINA MACE MA Service: ? Author Type: Tailman Type: Progress Notes Filed: 07/13/2024 16:16 Note Text: Scan on 07/13/2024 8:37 AM by Irma Alvarado PA-C: Miguel Mace MA [facility] 07-13-2024 History of Presen t illness Narrative Scan on 07/13/2024 8:37 AM by ProviderIrma PA-C: Chemistry Katrina Mace MA documented in this encounter [facility] 07-13-2024 Telephone encounter Note Pt notified. Referral, Demo, faxed. Esha Pozo MA [facility] 07-13-2024 Miscellaneous Notes Pt notified. Referral, Demo, faxed. Esha Pozo MA Referral ready to be faxed and can be notified. Spouse calls to request an updated referral to podiatry for Dr. [facility] d/t it being a new year. Pended referral as previously ordered. Please fax to [phone]. Spouse (Pat) also requests a call once referral has been placed at [phone]. Bianca Wahl RN documented in this encounter [facility] 07-13-2024 Note HNO ID: [id number] Author: RJ MENARD LPN Service: ? Author Type: LICENSED NURSE Type: Progress Notes Filed: 07/13/2024 07:27 Note Text: Scan on 07/13/2024 7:11 AM by ProviderIrma PA-C: Chemistry Scan on 07/13/2024 6:36 AM by ProviderIrma PAFiedlinaC: Hematology [facility] 07-13-2024 History of Presen t illness Narrative Scan on 07/13/2024 7:11 AM by ProviderIrma PA-C: Chemistry Scan on 07/13/2024 6:36 AM by Provider, VICTORINA Solis: Hematology documented in this encounter [facility] 07-12-2024 Telephone encounter Note Referral ready to be faxed and can be notified. [facility] 07-11-2024 Telephone encounter Note Spouse calls to request an updated referral to podiatry for Dr. [facility] d/t it being a new year. Pended referral as previously ordered. Please fax to [phone]. Spouse (Pat) also requests a call once referral has been placed at [phone]. Bianca Wahl RN [facility] 06-27-2024 Telephone encounter Note Pt returned call and given provider's message below with verbalized understanding. Pt reports he is currently taking 2000 international unit(s) Vit D daily and agreeable to increase to 4000 international unit(s) daily. [facility] 06-27-2024 Miscellaneous Notes Pt returned call [...] Katrina Mace MA documented in this encounter [facility] 06-27-2024 Telephone encounter Note Left vm for patient to return call to nurse for provider's message. [facility] 06-26-2024 Telephone encounter Note Let patient know his Prostate lab was ok. His Vit D is low. See if he is still taking Vit D 2000 international unit(s) 's a day. If not needs to restart. If he is taking it have him increase to 4,000 international unit(s) 's a day [facility] 06-26-2024 Telephone encounter Note Scan on 06/24/2024 7:36 AM by ProviderIrma PA-C: Chemistry Scan on 06/25/2024 8:14 AM by ProviderIrma PA-C: Chemistry Please review results and advise. Katrina Mace MA [facility] 06-23-2024 Instructions Alo Avina MD - [...] review all the medicines you take, even qdwa-lor-jktcezp medicines. As you get older, the way [...] certain medical conditions. documented in this encounter [facility] 06-23-2024 History of Presen t illness [...] Judd Dey MD (Internal Medicine) Keri Day APRN.ISAIAH as Handy Worker (Family Medicine) Crystal Nation PA-C as Handy Worker (Family Medicine) Claribel Devi: Endo Optho Dr. 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, with long-term current use of insulin ([facility]) 09/20/2016 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 disease, with long-term current use of insulin ([facility]) 08/21/2019 Vitamin D deficiency 07/31/2017 Witnessed episode of apnea 11/23/2019 Previous Surgical History PAST SURGICAL HISTORY Procedure Laterality Date COLONOSCOPY FLX DX W/COLLJ SPEC WHEN PFRMD 09/30/2017 [facility]Steph Espino--Repeat in 3 years-2020 FISTULA Left 09/11/2017 Radiocephalic arteriovenous fistula creation--[facility]--Steph Espino PAST SURGICAL HISTORY OF 06/07/2015 right grade II Open distal radius and ulnar shaft fracture PAST SURGICAL HISTORY OF Left 12/2022 right partial 5th metatarsal removal and 5th digit. PROSTATE SURGERY HX REM LESION TRUNK,ARM, LEG <0.5 CM 05/07/2007 Exc. piero cyst upper mid back Family History FAMILY HISTORY Problem Relation Age of Onset Diabetes Mother Hypertension Mother Heart Mother [place] other (lung cancer) Mother bone metastasis Diabetes [...] 1 tablet by mouth once daily. Insulin Fern[place], Disposable, (BD ULTRAFINE III MINI PEN) 31 [...] which included preparing to see the patient, tmvl-ev-rlgl patient care, completing clinical documentation, performing a medically appropriate examination, counseling and educating the patient/family/caregiver and ordering medications, tests, or procedures. Alo Avina MD The sensitive examination was discussed with the Patient or Patient's Authorized Bung Dropper. As applicable, any other physician, advance practice provider, medical student, or other health professional student that will be observing or involved in the sensitive examination for educational or training purposes was discussed with the Patient or Authorized Bung Dropper. The Patient or Authorized Bung Dropper has agreed to proceed with the sensitive examination. (Sensitive examination includes inspection and/or palpation of the breasts, pelvis, prostate and anorectal regions) documented in this encounter [facility] 06-23-2024 Note HNO ID: [id number] Author: ALO AVINA MD Service: ? Author [...] MD (Internal Medicine) Keri Day APRN.CNP as Handy Worker (Family Medicine) Crystal Nation PA-C as Handy Worker (Family Medicine) Claribel Devi: Endo Optho Dr. 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 [facility] 06-17-2024 Note HNO ID: [id number] Author: KATRINA MACE MA Service: ? Author Type: [place] Type: Progress Notes Filed: 06/17/2024 13:39 Note Text: Scan on 06/16/2024 8:15 AM by Irma Alvarado PA-C: Chemistry Scan on 06/16/2024 9:17 AM by Irma Alvarado PA-C: Chemistry Scan on 06/16/2024 8:09 PM by Irma Alvarado PA-C: Miguel Mace MA [facility] 06-17-2024 History of Presen t illness Narrative Scan on 06/16/2024 8:15 AM by Irma Alvarado PA-C: Chemistry Scan on 06/16/2024 9:17 AM by Irma Alvarado PA-C: Chemistry Scan on 06/16/2024 8:09 PM by Irma Alvarado PA-C: Miguel Mace MA documented in this encounter [facility] 06-15-2024 Telephone encounter Note Patients dropped off [employer] non formulary notice she received in mail. She would like provider to to consider switching to Novolog units-100 Insulin Aspart subcutaneous solution or Novolog Flexpen units-100 insulin aspart subcutaneous as per notice. [facility] 06-15-2024 Miscellaneous Notes Patients dropped off [employer] non formulary notice she received in mail. She would like provider to to consider switching to Novolog units-100 Insulin Aspart subcutaneous solution or Novolog Flexpen units-100 insulin aspart subcutaneous as per notice. documented in this encounter [facility] 06-05-2024 Telephone encounter Note Patient's calling and requesting patient's active lab orders be faxed to [facility] where patient will have them completed. Faxed as requested. Clarita Thompson RN [facility] 06-05-2024 Miscellaneous Notes Patient's calling and requesting patient's active lab orders be faxed to [facility] where patient will have them completed. Faxed as requested. Clarita Thompson RN documented in this encounter [facility] 06-05-2024 Telephone encounter Note The patient [...] two times a day. Clarita Thompson RN [facility] 06-05-2024 Miscellaneous Notes The patient has [...] Clarita Thompson RN documented in this encounter [facility] 05-20-2024 Note HNO ID: [id number] Author: RJ MENARD LPN Service: ? Author Type: LICENSED NURSE Type: Progress Notes Filed: 05/20/2024 09:04 Note Text: Scan on 05/19/2024 8:42 PM by ProviderIrma PA-C: Consultation - Ophthalmology [facility] 05-20-2024 History of Presen t illness Narrative Scan on 05/19/2024 8:42 PM by ProviderIrma PA-C: Consultation - Ophthalmology documented in this encounter [facility] 04-29-2024 History of Presen t illness Narrative OFFICE VISIT PROGRESS NOTE RACHELE Gale is a 68 year old male who presents today for blood sugar review. HPI Diagnosed with diabetes mellitus type II, ~ 1997 Hx of dialysis ~ 2 years Patient sts kidney issues are not secondary to his diabetes [place] it was related to medication overdose (BP [...] Diabetes mellitus type 2 with neurological manifestations ([facility]) 02/13/2013 Diabetic eye exam ([facility]) 10/09/2021 Last done 10/09/2021 [facility] Diabetic ulcer of toe of right foot associated with type 2 diabetes mellitus, limited to breakdown of skin ([facility]) 12/05/2018 Erectile dysfunction 02/24/2010 Essential hypertension, benign Essential tremor 09/20/2016 Ex-smoker 05/17/2021 Fistula 12/20/2017 left forearm radial to cephalic ateriovenous Hearing loss 09/10/2012 Hyperlipidemia, mixed Living will in place 11/16/2021 DPA; Reginald (son) Medicare annual wellness visit, subsequent 11/16/2021 Medicare Part B: 01/05/2018, Last done: 11/16/2021 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 ([facility]) 05/17/2021 Osteoarthritis of left knee 02/16/2011 Personal history of nicotine dependence Renal transplant recipient 11/23/2019 Restless leg syndrome 12/05/2018 Right rotator cuff tear 11/16/2021 Treated with PHYSICAL THERAPY. 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 disease, with long-term current use of insulin ([facility]) 08/21/2019 Vitamin D deficiency 07/31/2017 Witnessed episode of apnea 11/23/2019 PAST SURGICAL HISTORY Procedure Laterality Date COLONOSCOPY FLX DX W/COLLJ SPEC WHEN PFRMD 09/30/2017 [facility]-Steph Espino--Repeat in 3 years-2020 FISTULA Left 09/11/2017 Radiocephalic arteriovenous fistula creation--[facility]--Steph Espino PAST SURGICAL HISTORY OF 06/07/2015 right grade II Open distal radius and ulnar shaft fracture PAST SURGICAL HISTORY OF Left 12/2022 right partial 5th metatarsal removal and 5th digit. PROSTATE SURGERY HX REM LESION TRUNK,ARM, LEG <0.5 CM 05/07/2007 Exc. piero cyst upper mid back FAMILY HISTORY Problem Relation Age of Onset Diabetes Mother Hypertension Mother Heart Mother [place] other (lung cancer) Mother bone metastasis Diabetes [...] by mouth two times a day. Insulin [place], Disposable, (BD ULTRAFINE III MINI PEN) 31 [...] PANEL, NONFASTING, ALBUMIN/CREATININE RATIO, URINE, HEMOGLOBIN A1C lCaribel Cope CNP documented in this encounter [facility] 04-27-2024 Telephone encounter Note Prescription Refill [...] Mace MA April 27, 2024 8:48 AM [facility] 04-27-2024 Miscellaneous Notes Prescription Refill Information [...] 2024 8:05 AM documented in this encounter [facility] 04-25-2024 Telephone encounter Note Prescription Refill [...] MACO Saxena April 25, 2024 8:05 AM [facility] 04-21-2024 History of Presen t illness Narrative Scan on 04/20/2024 8:16 AM by ProviderIrma PA-C: Chemistry Scan on 04/20/2024 8:22 AM by ProviderIrma PA-C: Chemistry Katrina Mace MA documented in this encounter [facility] 04-10-2024 Telephone encounter Note Faxed. Katrina Mace MA [facility] 04-10-2024 Miscellaneous Notes Faxed. Katrina Mace MA Forms ready to be faxed. Received via fax orders for pt's diabetic shoes. Form placed on pcp's desk for review. Copy of ov with Crystal from 12/18/23 attached as well. Fax back to [facility] [place] [phone]. Rj Menard LPN documented in this encounter [facility] 04-10-2024 Telephone encounter Note Forms ready to be faxed. [facility] 04-10-2024 Telephone encounter Note Received via fax orders for pt's diabetic shoes. Form placed on pcp's desk for review. Copy of ov with Crystal from 12/18/23 attached as well. Fax back to [facility] [place] [phone]. Rj Menard LPN [facility] 03-24-2024 History of Presen t illness Narrative Scan on 03/23/2024 8:57 PM by Provider, VICTORINA Solis: Consultation - Ophthalmology documented in this encounter [facility] 03-02-2024 Telephone encounter Note Prescription Refill [...] Mace MA March 02, 2024 3:24 PM [facility] 03-02-2024 Miscellaneous Notes Prescription Refill Information [...] 2024 2:49 PM documented in this encounter [facility] 03-02-2024 Telephone encounter Note Prescription Refill [...] Mary Duggan March 02, 2024 2:49 PM [facility] 01-20-2024 History of Presen t illness 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, with long-term current use of insulin ([facility]) 09/20/2016 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 disease, with long-term current use of insulin ([facility]) 08/21/2019 Vitamin D deficiency 07/31/2017 Witnessed episode of apnea 11/23/2019 Previous Surgical History PAST SURGICAL HISTORY Procedure Laterality Date COLONOSCOPY FLX DX W/COLLJ SPEC WHEN PFRMD 09/30/2017 [facility]-Steph Espino--Repeat in 3 years-2020 FISTULA Left 09/11/2017 Radiocephalic arteriovenous fistula creation--[facility]--Steph Espino PAST SURGICAL HISTORY OF 06/07/2015 right grade II Open distal radius and ulnar shaft fracture PAST SURGICAL HISTORY OF Left 12/2022 right partial 5th metatarsal removal and 5th digit. PROSTATE SURGERY HX REM LESION TRUNK,ARM, LEG <0.5 CM 05/07/2007 Exc. piero cyst upper mid back Family History FAMILY HISTORY Problem Relation Age of Onset Diabetes Mother Hypertension Mother Heart Mother [place] other (lung cancer) Mother bone metastasis Diabetes [...] by mouth two times a day. Insulin [place], Disposable, (BD ULTRAFINE III MINI PEN) 31 [...] Will get an opinion from his new forest resource specialist on whether an Mio-I/ARB would be a good addition. Hesitant to increase labetalol due to pulse in 50s already. Patient and agreeable to plan as above. Discussed possible red flags and when to seek medical attention. Crystal Nation PA-C documented in this encounter [facility] 01-20-2024 Instructions Crystal Nation PA-C - 01/20/2024 7:54 AM EDT Blood pressure readings are borderline high. Continue to monitor at home. Document any high readings as well. See what the forest resource specialist's opinion is when you see them. Would an MIO-inhibitor or ARB be a option for better blood pressure control? documented in this encounter [facility] 01-16-2024 Telephone encounter Note Spoke with and apt booked for 01-20-24. Heather Clifton LPN [facility] 01-16-2024 Miscellaneous Notes Spoke with and [...] message for patient to contact office. Katrina aMce MA Left message for patient to contact office. Katrina Mace MA Called and left a detailed voicemail notifying patient of providers message. Clinic phone number was left for the patient to call back and answer the providers questions. Jazlyn Freire, DEMETRIO Please ask for patient's home bp readings. documented in this encounter [facility] 01-16-2024 Telephone encounter Note Left message for pt to contact office. Rj Menard LPN [facility] 01-16-2024 Telephone encounter Note Home systolic Bp readings are slightly elevated. I would like a follow up visit scheduled so we can discuss options. Have them bring home cuff to visit. Thanks. Crystal Nation PA-C [facility] 01-16-2024 Telephone encounter Note Pt's drops off pt's home bp readings. Rj Menard LPN 148/67 141/68 p 61 135/58 p 58 148/58 p 57 140/60 p 57 137/62 p 65 139/62 p 61 133/61 p 59 133/63 p 66 144/65 p 61 137/65 p 63 140/68 p 62 137/63 p 61 140/64 p 58 139/63 p 58 [facility] 01-15-2024 Telephone encounter Note Left additional message for patient to contact office. Katrina Mace MA [facility] 01-10-2024 Telephone encounter Note Left message for patient to contact office. Katrina Mace MA [facility] 01-08-2024 Telephone encounter Note Called and left a detailed voicemail notifying patient of providers message. Clinic phone number was left for the patient to call back and answer the providers questions. Jazlyn Freire, RN [facility] 01-08-2024 Telephone encounter Note Please ask for patient's home bp readings. 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, with long-term current use of insulin ([facility]) 09/20/2016 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 disease, with long-term current use of insulin ([facility]) 08/21/2019 Vitamin D deficiency 07/31/2017 Witnessed episode of apnea 11/23/2019 Previous Surgical History PAST SURGICAL HISTORY Procedure Laterality Date COLONOSCOPY FLX DX W/COLLJ SPEC WHEN PFRMD 09/30/2017 [facility]-Steph Espino--Repeat in 3 years-2020 FISTULA Left 09/11/2017 Radiocephalic arteriovenous fistula creation--[facility]--Steph Espino PAST SURGICAL HISTORY OF 06/07/2015 right grade II Open distal radius and ulnar shaft fracture PAST SURGICAL HISTORY OF Left 12/2022 right partial 5th metatarsal removal and 5th digit. PROSTATE SURGERY HX REM LESION TRUNK,ARM, LEG <0.5 CM 05/07/2007 Exc. piero cyst upper mid back Family History FAMILY HISTORY Problem Relation Age of Onset Diabetes Mother Hypertension Mother Heart Mother [place] other (lung cancer) Mother bone metastasis Diabetes Father other (BPH) Father other (pancreatic cancer) Father Diabetes Brother Diabetes Brother Patient Allergies ALLERGIES Allergen Reactions Bactrim [Sulfametho* Hives Metformin Rash Lipitor [Atorvastat* Other: See Comments myalgia Norvasc [Amlodipine* Swelling Current Medications Current Outpatient Medications on File Prior to Visit Medication Sig Insulin [place], Disposable, (BD ULTRAFINE III MINI PEN) 31 [...] Crystal Nation PA-C documented in this encounter [facility] 12-11-2023 Telephone encounter Note Updated labs from (location)[facility] Date labs collected 12-04-23 Date scanned in chart 12-11-23. Sofía Nevarez Dentistry Professor II Endocrinology & Metabolism Richardson F20-X [facility] 12-11-2023 Miscellaneous Notes Updated labs from (location)[facility] Date labs collected 12-04-23 Date scanned in chart 12-11-23. Sofía Nevarez Dentistry Professor II Endocrinology & Metabolism Richardson F20-X documented in this encounter [facility] 12-11-2023 History of Presen t illness Narrative OFFICE VISIT PROGRESS NOTE RACHELE Gale is a 68 year old male who presents today for blood sugar review. HPI Diagnosed with diabetes mellitus type II, ~ 1997 Hx of dialysis ~ 2 years Patient sts kidney issues are not secondary to his diabetes [place] it was related to medication overdose (BP [...] eye exam (HCC) 10/09/2021 Last done 10/09/2021 [facility] Diabetic ulcer of toe of right foot [...] done: 11/16/2021 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 ([facility]) 05/17/2021 Osteoarthritis of left knee 02/16/2011 Personal history of nicotine dependence Renal transplant recipient 11/23/2019 Restless leg syndrome 12/05/2018 Right rotator cuff tear 11/16/2021 Treated with PHYSICAL THERAPY. 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 disease, with long-term current use of insulin ([facility]) 08/21/2019 Vitamin D deficiency 07/31/2017 Witnessed episode of apnea 11/23/2019 PAST SURGICAL HISTORY Procedure Laterality Date COLONOSCOPY FLX DX W/COLLJ SPEC WHEN [facility]FRMD [facility] FISTULA Left 09/11/2017 Radiocephalic arteriovenous fistula creation--[facility]--Steph Espino PAST SURGICAL HISTORY OF 06/07/2015 right grade II Open distal radius and ulnar shaft fracture PAST SURGICAL HISTORY OF Left 12/2022 right partial 5th metatarsal removal and 5th digit. PROSTATE SURGERY HX REM LESION TRUNK,ARM, LEG <0.5 CM 05/07/2007 Exc. piero cyst upper mid back FAMILY HISTORY Problem Relation Age of Onset Diabetes Mother Hypertension Mother Heart Mother [place] other (lung cancer) Mother bone metastasis Diabetes [...] mL) INJECT 25 Units at bedtime Insulin [place], Disposable, (BD ULTRAFINE III MINI PEN) 31 [...] Claribel Cope CNP documented in this encounter [facility] 12-05-2023 History of Presen t illness Narrative Scan on 12/04/2023 10:10 AM by ProviderIrma PA-C: Chemistry Scan on 12/04/2023 8:33 AM by Irma Alvarado PA-C: Chemistry Scan on 12/04/2023 7:07 AM by ProviderIrma PA-C: Miscellaneous Lab documented in this encounter [facility] 11-25-2023 Telephone encounter Note Patients spouse phoned to request lab orders faxed to [facility] lab. The number she provided was [phone]. Completed through [employer]. Lisandra Velásquez MA [facility] 11-25-2023 Miscellaneous Notes Patients spouse phoned to request lab orders faxed to [facility] lab. The number she provided was [phone]. Completed through [employer]. Lisandra Velásquez MA documented in this encounter [facility] 11-22-2023 History of Presen t illness Narrative Images from the original note were not included. PREP SHEET FOR NEPHROLOGY CLINIC Patient Name: Rodri Gale Button Pusher: Monse Andrade Date of Kidney Transplant: 10/22/2019 4y Primary Disease: Diabetes Mellitus - Type II Transplant Worker'S Compensation Claims Examiner: Jim Squires Primary Care physician: Alo Avina Last Transplant Appointment: 11/17/2022 Encounter Date: 10/01/2023 Kidney Txp #1: 10/22/2019 (3y 11m) Patient set to transfer to primary forest resource specialist, Dr. Bravo after appt with Dr. Squires 11/21. Dr. Lazar office ordered two Allosure lab draws. Allosure on 09/12 was 3.9%, Allosure on 09/26 was 3.7%. Per Dr. Lazar office, patient to touch base with transplant clinic for follow-up regarding allosure test. IMMUNOSUPPRESSION AND LABS: Current Immunosuppressive Medication(s) Immunosuppressive Agents Mycophenolate sodium (MYFORTIC) [address] tablet DR Take 2 tablets by mouth every 12 hours. Tacrolimus (ENVARSUS XR) 1 MG Tab SR 24 HR Take 1 tablet by mouth daily. I/S levels: No results found for: CYCLOSPORIN, CYCLOSPORIN2, [id number], CYCLORAND No components found for: CYCLOSPORINE, 2HR [...] Rosuvastatin, Tacrolimus, aspirin, cholecalciferol, and insulin glargine [facility] - [address] [place] [address] [place] [phone] Change in lab frequency / new order today: Labs needed in clinic today? COORDINATOR NOTES: Images from the original note were not included. Nursing Assessment In Clinic Patient is accompanied to clinic today by: family Did patient require a wheelchair or medical transport for appointment: no Is patient employed: no (Needed for [employer] forms) VITALS BP Readings from Last 3 [...] by mouth daily. PREFERRED LAB AND PHARMACY: [facility] - [address] [facility] [address] [place] [address] [facility] [address] [facility] [address] [facility] [place] [id number] [address] [facility] [id number] ROS and SCREEN: Chest Pain: negative Cough: negative SOB: negative Abd Pain: negative Nausea: negative Vomiting: negative Diarrhea: negative Constipation: negative Dysuria: negative Edema: negative Tremors: positive - mild Headaches: negative Wound issues: negative Any diagnosis of cancer/malignancy (any type) in the last year: no Do you follow with a Electrical System Specialist? no Do you have a Primary Care [...] envarsus I saw Rodri Gale at the [facility] on 11/21/2022. Patient is a 68 y.o. 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 His post-transplant course was noteworthy for good allograft function. He reports no interval health issues such as hospitalizations, infections or ED visits. He does not report any active physical symptoms or health issues today. He lives in [place] with his . Wants to transfer care to Dr. Dey in [place] henceforth. Transplant Details: HLA mismatch was A1, [...] History: Procedure Laterality Date KIDNEY TRANSPLANT W/O [place] NEPHRECTOMY N/A 10/22/2019 Laterality: N/A; Surgeon: Angelo [...] being transferred to Dr. Judd Dey in [place], [place]. Please do not hesitate to contact me if you have any questions. Jim Squires MD solar energy systems engineer Division of Nephrology [facility] documented in this encounter [facility] 11-22-2023 Instructions Leah Dwyer RN - 11/22/2023 2:00 PM EDT - No medication changes- 6 month refill sent in on Envarsus. Follow up with Dr. Bravo for future refills on immunosuppression medication. - Transfer of care to Dr. Bravo - no follow up needed with Dr. Squires documented in this encounter [facility] 11-11-2023 History of Presen t illness Narrative Scan on 11/10/2023 12:35 PM by Provider, External, PAFidelinaC: Miscellaneous Lab documented in this encounter [facility] 11-07-2023 History of Presen t illness Narrative View External Labs - Chemistry [ID [id number]] documented in this encounter [facility] 11-06-2023 Telephone encounter Note The following approved medication requests have been transmitted electronically. Requested Prescriptions Signed Prescriptions Disp Refills NIFEdipine ER (PROCARDIA XL) 30 mg 24 hr tablet 90 tablet 1 Sig: Take 1 tablet by mouth once daily. Authorizing Provider: ALO AVINA MD [facility] 11-06-2023 Miscellaneous Notes The following approved [...] you. Rebekah Duggan. documented in this encounter [facility] 11-06-2023 Telephone encounter Note Patient has [...] 12/18/2023 Please advise. Thank you. Rebekah Duggan. [facility] 10-30-2023 Telephone encounter Note Fax received formulary change for insulin. He has received a transition supply. New prescriptions need to be Novolog aspart 100u/mL solution, novolog Flexpen U-100 Lisandra Velásquez MA [facility] 10-30-2023 Miscellaneous Notes Fax received formulary change for insulin. He has received a transition supply. New prescriptions need to be Novolog aspart 100u/mL solution, novolog Flexpen U-100 Lisandra Velásquez MA documented in this encounter [facility] 10-23-2023 History of Presen t illness Narrative Scan on 10/23/2023 9:17 AM by ProviderIrma PA-C: Consultation - Ophthalmology aKtrina Mace MA documented in this encounter [facility] 10-14-2023 History of Presen t illness Narrative Scan on 10/11/2023 6:02 PM by ProviderIrma PA-C: Consultation - Ophthalmology Marisabel Yepez LPN documented in this encounter [facility] 09-23-2023 Miscellaneous Notes Patient has been [...] 12/2023 Last refill: 03/2023 Pharmacy verified in [facility] Patient has been identified by name and [...] advise. Lisandra Duron [facility] Pharmacy verified in [facility] Patient has been identified by name and [...] Lisandra Duron Pss documented in this encounter [facility] 09-18-2023 Miscellaneous Notes Patient has been [...] Zandra Ybarra LPN. documented in this encounter [facility] 09-13-2023 History of Presen t illness Narrative Scan on 09/13/2023 10:25 AM by Irma Alvarado PA-C: Chemistry Scan on 09/13/2023 9:52 AM by Irma Alvarado PA-C: Chemistry documented in this encounter [facility] 08-28-2023 History of Presen t illness Narrative Scan on 08/28/2023 2:43 AM by Irma Alvarado PA-C: Consultation - Ophthalmology documented in this encounter [facility] 05-21-2023 History of Presen t illness Narrative Scan on 05/19/2023 3:35 PM by Irma Alvarado PA-C: Miscellaneous Lab Scan on 05/19/2023 3:35 PM by Irma Alvarado PA-C: Chemistry documented in this encounter [facility] 05-08-2023 Miscellaneous Notes The following approved [...] rescheduled to 06/18/2023 and faxed orders to [facility] for patient to complete before his [...] patient. Azeb Duggan documented in this encounter [facility] 04-01-2023 History of Presen t illness [...] patient. Mary Duggan documented in this encounter [facility] 03-19-2023 Miscellaneous Notes Patient seen by [...] Bianca Wahl RN documented in this encounter [facility] 03-13-2023 History of Presen t illness Narrative OFFICE VISIT PROGRESS NOTE RACHELE Gale is a 67 year old male who presents today for blood sugar review, insulin dose review/adjust. HPI Diagnosed with diabetes mellitus type II, ~ 1997 Hx of dialysis ~ 2 years Patient sts kidney issues are not secondary to his diabetes [place] it was related to medication overdose (BP [...] LABS, no A1C for review (scanned to [employer]) IN OFFICE A1C PAST MEDICAL HISTORY Diagnosis Date Advance directive discussed with patient 11/16/2021 Discussed 11/2021 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 07/12/2017 BMI 32.0-32.9,adult BPH (benign prostatic hyperplasia) 03/06/2012 Chronic pain of right knee 12/05/2018 Diabetes mellitus type 2 with neurological manifestations (HCC) 02/13/2013 Diabetic eye exam ([facility]) 10/09/2021 Last done 10/09/2021 [facility] Diabetic ulcer of toe of right foot associated with type 2 diabetes mellitus, limited to breakdown of skin ([facility]) 12/05/2018 Erectile dysfunction 02/24/2010 Essential hypertension, benign Essential tremor 09/20/2016 Ex-smoker 05/17/2021 Fistula 12/20/2017 left forearm radial to cephalic ateriovenous Hearing loss 09/10/2012 Hyperlipidemia, mixed Living will in place 11/16/2021 JC Montelongo (son) Medicare annual wellness visit, subsequent 11/16/2021 Medicare Part B: 01/05/2018, Last done: 11/16/2021 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 ([facility]) 05/17/2021 Osteoarthritis of left knee 02/16/2011 Personal history of nicotine dependence Renal transplant recipient 11/23/2019 Restless leg syndrome 12/05/2018 Right rotator cuff tear 11/16/2021 Treated with PHYSICAL THERAPY. 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 Cebul--Repeat in 3 years-2020 FISTULA Left 09/11/2017 Radiocephalic arteriovenous fistula creation--[facility]--R. Cebul PAST SURGICAL HISTORY OF 06/07/15 right grade II Open distal radius and ulnar shaft fracture PROSTATE SURGERY HX REM LESION TRUNK,ARM, LEG <0.5 CM 05/07/07 Exc. piero cyst upper mid back FAMILY HISTORY Problem Relation Age of Onset Diabetes Mother Hypertension Mother Heart Mother [place] other (lung cancer) Mother bone metastasis Diabetes [...] INSULIN INJECTIONS E11.9 Blood-Glucose Meter,Continuous (DEXCOM G7 [employer]) [facility] Dispense one corduroy cutting supervisor kit. E11.9 USE FOR CONTINUOUS GLUCOSE MONITORING. Multiple insulin injections. labetalol (TRANDATE) 100 mg tablet Take 1.5 tablets by mouth twice daily. insulin glargine (LANTUS SOLOSTAR U-100 INSULIN) 100 unit/mL (3 mL) INJECT 25 Units at bedtime Insulin [place], Disposable, (BD ULTRAFINE III MINI PEN) 31 [...] Claribel Cope CNP documented in this encounter [facility] 03-12-2023 Miscellaneous Notes Orders faxed to [facility]. Cover letter sent with message to fax results to [phone]. Lisandra Velásquez MA I don't think we can see [facility] unless they fax us the results. Phoned patient to update the address and remind him of labs and to bring logs/reader to appointment. Patient will get labs at [facility] at 6 am. Are these orders able to be seen for them? Thanks Lisandra Velásquez MA documented in this encounter [facility] 03-12-2023 Miscellaneous Notes Noted. Reina with [facility] calls to report pt was discharged from their services today. Pt saw Dr. Rojas who said the wound looked healed and he could be discharged. Shantelle Osborn LPN documented in this encounter [facility] 03-07-2023 Miscellaneous Notes Nurse Reina notified. Ok to see patient x1 next week. nurse Reina @ [facility] calling to let PCP know patient was seen by Dr. Rojas, Language Interpreter yesterday. He removed patient's sutures and instructed patient to keep dressing intact until Saturday. Reina requesting verbal okay to see patient 1 x next week to check wound prior to discharge from alf health. Her ph# [phone]. Sadia Reina RN documented in this encounter [facility] 02-25-2023 Miscellaneous Notes Patient notified and faxed info. Katrina Mace MA Consult order placed. Patient's calling and states pt would like to see a Worker'S Compensation Claims Examiner who is closer to [place] than Dr. Squires, the one pt sees in [place] currently. Asking to see Dr. Dey in [place], as recommended by Dr. Squires, if PCP agreeable to place referral. Please fax referral to Office of Dr. Dey Fax #: [phone] Attention: Shama Please call with update. Thank you. documented in this encounter [facility] 02-13-2023 History of Presen t illness Narrative Scan on 02/09/2023 1:33 PM by Provider, External, PAFidelinaC: Miscellaneous Lab Katrina Mace MA documented in this encounter [facility] 02-06-2023 Miscellaneous Notes Call placed to Fay and message left on secure voicemail. Crystal to call back if any further questions. Bianca Wahl RN I'm ok with extending Fay with [facility] HH calls to request extension of HH SN orders for SN 1 wk 1 and 2 wk 4 for continued monitoring. Podiatry will continue to give wound care orders for right foot and toe. Please phone Fay back at [phone]. Bianca Wahl RN documented in this encounter [facility] 01-28-2023 History of Presen t illness Narrative Scan on 01/27/2023 10:07 AM by Provider, External, VICTORINA: Miscellaneous Lab Katrina Mace MA documented in this encounter [facility] 01-24-2023 History of Presen t illness Narrative Patient's home health 485 form / care plan for certification period 01/09/2023 to 03/09/2023 reviewed and signed. Relevant medical records were reviewed. No changes were indicated documented in this encounter [facility] 01-07-2023 Miscellaneous Notes Left detailed message. Katrina Mace MA [phone]. yes [facility] calling will you follow for start of nursing services? Please advise. documented in this encounter [facility] 01-07-2023 Progress note Note Date/Time January 07, 2023 10:17am [facility] Medical Records Department [address] [place] [address] Progress Note - Hospitalist 01/07/23 1015 MR#: [id number] Acct: [id number] Name: RODRI GALE Rep #:[id number] : 1955 67 From: Lindsay Meza MD PCP: Dr. Alo Avina MD Status:ADM IN [facility] Reason for Visit Reason for Visit: Diagnoses [...] 84.4 H, Lymph % (Auto) 5.9 L, [place] % (Auto) 7.1, Eos % (Auto) 1.3, [...] documentation, 37minutes Charges/Coding Visit Charges Inpatient E&M: 07815 Subs Hosp L3 01/07/23 1018 <Electronically signed by Lindsay Meza MD> Cosigner Signature (if applicable): CC: ~ Signed [facility] Work Phone: 1(787) 756-567107-03-2023 Consult note Author Jaxson Mahmood [facility] January 07, 2023 10:06am Note Date/Time January 07, 2023 10:06 am [facility] Medical Records Department [address] [place] [address] Consultation - Infectious Dx 01/07/23 1002 MR#: [id number] Acct: [id number] Name: RODRI GALE Rep #:[id number] : 1955 67 From: Jaxson Mahmood MD PCP: Dr. Alo Avina MD Status:ADM IN Location: NM3 NP878-8 Assessment & Plan Assessment/Plan (1) Right foot [...] data of the right foot cultures reviewed. [facility] Medical History (Updated 01/03/23 @ 19:41 by [...] 84.4 H, Lymph % (Auto) 5.9 L, [place] % (Auto) 7.1, Eos % (Auto) 1.3, [...] Ryan Rahman MD;Dr. Smooth Jordan MD~ Signed [facility] Work Phone: 1(113) 151-877307-03-[address] [facility] January 07, 2023 8:13am Note Date/Time January 07, 2023 8:13a m [facility] Medical Records Department [address] [place] [address] Progress Note 01/07/23 0810 MR#: [id number] Acct: [id number] Name: RODRI GALE Rep #:[id number] : 1955 67 From: Lane turcios DPM PCP: Dr. Alo Avina MD Status:ADM IN Location: NM3 NE113-2 Subjective Subjective Patient seen this a.m. resting [...] 84.4 H, Lymph % (Auto) 5.9 L, [place] % (Auto) 7.1, Eos % (Auto) 1.3, [...] Jr. Ava HendersonP.M. [facility] [phone] 01/07/23812 <Electronically signed by Lane Rojas DPM> Lane Lobo Cosigner Signature (if applicable): CC: ~ Signed [facility] Work Phone: 1(145) 386-363407-02-2023 Progress note Author Lindsay Meza [facility] January 06, 2023 12:10pm Note Date/Time January 06, 2023 8:08a m [facility] Medical Records Department [address] [place] [address] Progress Note - Hospitalist 01/06/23801 MR#: [id number] Acct: [id number] Name: RODRI GALE Rep #:[id number] : 1955 67 From: Lindsay Meza MD PCP: Dr. Alo Avina MD Status:ADM IN [facility] Reason for Visit Reason for Visit: Diagnoses [...] (Auto) 86.7 H, Lymph % (Auto) 4.7L, [place] % (Auto) 7.1, Eos % (Auto) 0.2, [...] documentation, 37minutes Charges/Coding Visit Charges Inpatient E&M: 49145 Subs Hosp L3 01/06/23 1210 <Electronically signed by Lindsay Meza MD> Cosigner Signature (if applicable): CC: ~ Signed [facility] Work Phone: 1(895) 850-831907-02-2023 Progress note Author [facility] January 06, 2023 4:31am Note Date/Time January 06, 2023 4:31a [facility] Medical Records Department [address] [place] [address] Progress Note - Hospitalist 01/06/23 043 MR#: [id number] Acct: [id number] Name: RODRI GALE Rep #:[id number] : 1955 67 From: Kenya Scott MD PCP: Dr. Alo Avina MD Status:ADM IN Location: [place] [address] Hospitalist Note Patient with increased oxygenation requirements, encouraged aggressive IS, will obtain AM CXR. 01/06/23430 <Electronically signed by Kenya Scott MD> Cosigner Signature (if applicable): CC: ~ Signed [facility] Work Phone: 1(750) 278-603107-01-[address] [facility] January 05, 2023 3:01pm Note Date/Time January 05, 2023 2:58p [facility] Medical Records Department [address] [place] [address] Progress Note 01/05/23 1447 MR#: [id number] Acct: [id number] Name: RODRI GALE Rep #:[id number] : 1955 67 From: Lane turcios DPM PCP: Dr. Alo Avina MD Status:ADM IN Location: [place] [address] Subjective Subjective Patient seen this afternoon resting [...] (Auto) 82.7 H, Lymph % (Auto) 6.3L, [place] % (Auto) 9.0, Eos % (Auto) 0.9, [...] Jr. D.P.M. [facility] [phone] 01/05/23 1501 <Electronically signed by Lane Rojas DPM> Lane Lobo Cosigner Signature (if applicable): CC: ~ Signed [facility] Work Phone: 1(605) 651-410407-01-2023 Consult note Author Ryan Vázquez [facility] January 05, 2023 2:53pm Note Date/Time January 05, 2023 2:54p m [facility] Medical Records Department [address] [place] [address] Pharmacokinetic/Renal -Consult 01/05/23 1448 MR#: [id number] Acct: [id number] Name: RODRI GALE Rep #:[id number] : 1955 67 From: Ryan Lance [facility] PCP: Dr. Alo Avina MD Status:ADM IN Location: [facility] PQ034-3 Consult Antibiotic Management Pharmacy has been consulted [...] Labs: Trough: Vancomycin (01/07/23 @ 0230) 01/05/23 0053 <Electronically signed by Ryan Garcia [facility]> Date _ Ryan Mejía Gurpreet RP Cosigner Signature (if applicable): Date CC: ~ Signed [facility] Work Phone: 1(891) 459-538107-01-2023 Progress note Author Lindsay Meza [facility] January 05, 2023 11:34am Note Date/Time January 05, 2023 8:04a m [facility] Medical Records Department [address] [place] [address] Progress Note - Hospitalist 01/05/23 0759 MR#: [id number] Acct: [id number] Name: RODRI GALE Rep #:[id number] : 1955 67 From: Lindsay Meza MD PCP: Dr. Alo Avina MD Status:ADM IN Location: [place] [address]-1 Reason for Visit Reason for Visit: Diagnoses [...] (Auto) 82.7 H, Lymph % (Auto) 6.3L, [place] % (Auto) 9.0, Eos % (Auto) 0.9, [...] documentation, 37minutes Charges/Coding Visit Charges Inpatient E&M: 34705 Subs Hosp L3 01/05/23 1134 <Electronically signed by Lindsay Meza MD> Cosigner Signature (if applicable): CC: ~ Signed [facility] Work Phone: 1(942) 350-340507-01-2023 Consult note Author Mary Catherine [facility] January 05, 2023 2:13am Note Date/Time January 05, 2023 2:13a m [facility] Medical Records Department [address] [place] [address] Pharmacokinetic/Renal -Consult 01/05/23 0212 MR#: [id number] Acct: [id number] Name: RODRI GALE Rep #:[id number] : 1955 67 From: Mary Catherine PCP: Dr. Alo Avina MD Status:ADM IN Y [facility] Consult Antibiotic Management Pharmacy has been consulted [...] Signature (if applicable): Date CC: ~ Signed [facility] Work Phone: 1(775) 451-506406-30-2023 Procedure [facility] 01-04-2023 Progress note Author Smooth Jordan [facility] January 04, 2023 1:45pm Note Date/Time January 04, 2023 1:45 pm [facility] Medical Records Department [address] [place] [address] Progress Note - Infect Disease 01/04/23 1344 MR#: [id number] Acct: [id number] Name: RODRI GALE Rep #:[id number] : 1955 67 From: Smooth menchaca MD PCP: Dr. Alo Avina MD Status:ADM IN Location: [place] [address] ID ID: Route of nutrition/ use of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 encounterAultman Orrville [facility]05-12-2022 History of Present illness Narrative* Alo [...] chronic kidney disease, not on chronic dialysis ([facility]) 07/12/2017 BMI 32.0-32.9,adult BPH (benign prostatic hyperplasia) 03/06/2012 Chronic 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 ([facility]) 02/28/2015 Chronic pain of right knee 12/05/2018 Diabetes mellitus type 2 with neurological manifestations ([facility]) 02/13/2013 Diabetic ulcer of toe of right foot associated with type 2 diabetes mellitus, limited to breakdown of skin ([facility]) 12/05/2018 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 08/31/2014 Encounter for long-term (current) use of insulin ([facility]) End stage kidney disease ([facility]) 11/06/2017 Has been added to Transplant list-[facility] 12/25/2017 Enlarged prostate Erectile dysfunction 02/24/2010 Essential hypertension, benign Essential tremor 09/20/2016 Ex-smoker 05/17/2021 Fistula 12/20/2017 left forearm radial to cephalic ateriovenous Hearing loss 09/10/2012 Hypocalcemia 07/31/2017 Hypoglycemia unawareness associated with type 2 diabetes mellitus ([facility]) Kidney disease Living will in place 11/16/2021 JC Montelongo (son) Medicare annual wellness visit, subsequent 11/16/2021 Medicare Part B: 01/05/2018, Last done: 11/16/2021 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 ([facility]) 05/17/2021 Osteoarthritis of left knee 02/16/2011 Other and unspecified hyperlipidemia Pedal edema Personal history of nicotine dependence Renal transplant recipient 11/23/2019 Restless leg syndrome 12/05/2018 Retinopathy, bilateral 03/21/2018 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 disease, with long-term current use of insulin([facility]) 08/21/2019 Type 2 diabetes mellitus with stage 4 chronic kidney disease, with long-term current use of insulin(HCC) 09/20/2016 Vitamin D deficiency 07/31/2017 White coat hypertension 02/09/2014 Witnessed episode of apnea 11/23/2019 PAST SURGICAL HISTORY Procedure Laterality Date COLONOSCOPY FLX DX W/COLLJ SPEC WHEN PFRMD 09/30/2017 [facility]-Steph Espnio--Repeat in 3 years-2020 FISTULA Left 09/11/2017 Radiocephalic arteriovenous fistula creation--[facility]--Steph Espino PAST SURGICAL HISTORY OF 06/07/15 right grade II Open distal radius and ulnar shaft fracture PROSTATE SURGERY HX REM LESION TRUNK,ARM, LEG <0.5 CM 05/07/07 Exc. piero cyst upper mid back ALLERGIES: Bactrim [Sulfamethoxazole], Metformin, Lipitor [Atorvastatin Calcium], and Norvasc [Amlodipine Besylate] Medications reviewed: Yes FAMILY HISTORY Problem Relation Age of Onset Diabetes Mother Hypertension Mother Heart Mother [place] other (lung cancer) Mother bone metastasis Diabetes [...] chronic kidney disease, not on chronic dialysis ([facility]) 07/12/2017 BMI 32.0-32.9,adult BPH (benign prostatic hyperplasia) 03/06/2012 Chronic 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 ([facility]) 02/28/2015 Chronic pain of right knee 12/05/2018 Diabetes mellitus type 2 with neurological manifestations ([facility]) 02/13/2013 Diabetic ulcer of toe of right foot associated with type 2 diabetes mellitus, limited to breakdown of skin ([facility]) 12/05/2018 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 ([facility]) 08/31/2014 Encounter for long-term (current) use of insulin ([facility]) End stage kidney disease ([facility]) 11/06/2017 Has been added to Transplant list-[facility] 12/25/2017 Enlarged prostate Erectile dysfunction 02/24/2010 Essential hypertension, benign Essential tremor 09/20/2016 Ex-smoker 05/17/2021 Fistula 12/20/2017 left forearm radial to cephalic ateriovenous Hearing loss 09/10/2012 Hypocalcemia 07/31/2017 Hypoglycemia unawareness associated with type 2 diabetes mellitus ([facility]) Kidney disease 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 ([facility]) 05/17/2021 Osteoarthritis of left knee 02/16/2011 Other and unspecified hyperlipidemia Pedal edema Personal history of nicotine dependence Renal transplant recipient 11/23/2019 Restless leg syndrome 12/05/2018 Retinopathy, bilateral 03/21/2018 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 disease, with long-term current use of insulin([facility]) 08/21/2019 Type 2 diabetes mellitus with stage 4 chronic kidney disease, with long-term current use of insulin([facility]) 09/20/2016 Vitamin D deficiency 07/31/2017 White coat hypertension 02/09/2014 Witnessed episode of apnea 11/23/2019 Previous Surgical History PAST SURGICAL HISTORY Procedure Laterality Date COLONOSCOP W/ OR W/O [facility] SPEC 09/30/2017 [facility]-Steph Espino--Repeat in 3 years-2020 FISTULA Left 09/11/2017 Radiocephalic arteriovenous fistula creation--[facility]--Steph Espino PAST SURGICAL HISTORY OF 06/07/15 right grade II Open distal radius and ulnar shaft fracture PROSTATE SURGERY HX REM LESION TRUNK,ARM, LEG <0.5 CM 05/07/07 Exc. piero cyst upper mid back Family History FAMILY HISTORY Problem Relation Age of Onset Diabetes Mother Hypertension Mother Heart Mother [place] other (lung cancer) Mother bone metastasis Diabetes [...] needed for itching. Location: lower legs Insulin [place], Disposable, (BD ULTRAFINE III MINI PEN) 31 [...] Diabetes mellitus type 2 with neurological manifestations ([facility]) - ICD9: 250.60, ICD10: E11.49 - As above 6. 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 GUANAKO: No Insulin [place], Disposable, (BD ULTRAFINE III MINI PEN) 31 gauge x 3/16 400 Each 3 Sig: use four times/day GUANAKO: No F/u 6 months routine I spent a total of 40 minutes on the date of the service which included preparing to see the patient, [id number] patient care, completing clinical documentation, performing a medically appropriate examination, counseling and educating the patient/family/caregiver and ordering medications, tests, or procedures. Alo Avina MD documented in this encounterAultman [facility]05-02-2022 Miscellaneous Notes* Telephone Encounter - Katrina Mace MA - 11/06/2021 1:08 PM EDT Orders printed and faxed to [facility]. Katrina Mace MA * Telephone Encounter - Alo Avina MD - 11/06/2021 1:02 PM EDT orders printed and ready to be faxed. * Telephone Encounter - Zoë Strong Pss - 11/06/2021 12:29 PM EDT Spouse called asking if patient needs lab work for upcoming appointment, to please fax to [facility]. Patient will be having lab work there Sat or this week. documented in this encounterA[facility] Miscellaneous Notes* Telephone Encounter - Alo Avina MD - 10/12/2021 4:29 PM EDT The following approved medication requests have been transmitted electronically. Signed Prescriptions Disp Refills rosuvastatin (CRESTOR) 10 mg tablet 90 tablet 1 Sig: Take 1 tablet by mouth once daily. GUANAKO: No Authorizing Provider: ALO AVINA MD * Telephone Encounter - Zandar Ybarra LPN - 10/12/2021 3:47 PM EDT [...] you. Zandra Ybarra LPN documented in this encounterA[facility]03-[facility] Miscellaneous Notes* Telephone Encounter - Alo [...] patient. Mary Gama Pss documented in this encounterAult[facility]05[facility] History of Past illness Narrative* Problem Noted Date Resolved Date Chronic pain of right knee 12/05/201806/06 Diabetic ulcer of toe of rig ht foot associated with type 2 diabetes mellitus, limited to breakdown of skin 12/05/20182019 End stage kidney disease 11/06/2017 020 Overview: Has been added to [facility] 12/25/2017 Hypocalcemia 07/31/2017 03/07/2018 Fracture of forearm, closed 01/25/201609/05 Chronic 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 02/2806/06/2020 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 08/31/2014 08/21/2018 Sebaceous cyst 04/24/2007 09/20/2016 documented as of this encounter (statuses as of 09/26/2021) [facility] of Past illness Narrative* Problem Noted Date Resolved Date Chronic pain of right knee 12/05/201806/06 Diabetic ulcer of toe of rig ht foot associated with type 2 diabetes mellitus, limited to breakdown of skin 12/05/20182019 End stage kidney disease 11/06/2017 020 Overview: Has been added to [facility] 12/25/2017 Hypocalcemia 07/31/2017 03/07/2018 Fracture of forearm, closed 01/25/201609/05 Chronic 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 02/2806/06/2020 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 08/31/2014 08/21/2018 Sebaceous cyst 04/24/2007 09/20/2016 documented as of this encounter (statuses as of 10/12/2021) [facility] of Past illness Narrative* Problem Noted Date Resolved Date Chronic pain of right knee 12/05/201806/06 Diabetic ulcer of toe of rig ht foot associated with type 2 diabetes mellitus, limited to breakdown of skin 12/05/20182019 End stage kidney disease 11/06/2017 020 Overview: Has been added to [facility] 12/25/2017 Hypocalcemia 07/31/2017 03/07/2018 Fracture of forearm, closed 01/25/201609/05 Chronic 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 02/2806/06/2020 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 08/31/2014 08/21/2018 Sebaceous cyst 04/24/2007 09/20/2016 documented as of this encounter (statuses as of 11/06/2021) [facility] illness Narrative* Problem Noted Date Resolved Date Chronic pain of right knee 12/05/201806/06 Diabetic ulcer of toe of rig ht foot associated with type 2 diabetes mellitus, limited to breakdown of skin 12/05/20182019 End stage kidney disease 11/06/2017 020 Overview: Has been added to [facility] 12/25/2017 Hypocalcemia 07/31/2017 03/07/2018 Fracture of forearm, closed 01/25/201609/05 Chronic 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 02/2806/06/2020 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 08/31/2014 08/21/2018 Sebaceous cyst 04/24/2007 09/20/2016 documented as of this encounter (statuses as of 11/19/2021) [facility] Narrative* Problem Noted Date Resolved Date Chronic pain of right knee 12/05/201806/06 Diabetic ulcer of toe of rig ht foot associated with type 2 diabetes mellitus, limited to breakdown of skin 12/05/20182019 End stage kidney disease 11/06/2017 020 Overview: Has been added to [facility] 12/25/2017 Hypocalcemia 07/31/2017 03/07/2018 Fracture of forearm, closed 01/25/201609/05 Chronic 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 02/2806/06/2020 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 08/31/2014 08/21/2018 Sebaceous cyst 04/24/2007 09/20/2016 documented as of this encounter (statuses as of 12/21/2021) [facility] Narrative* Problem Noted Date Resolved Date Chronic pain of right knee 12/05/201806/06 Diabetic ulcer of toe of rig ht foot associated with type 2 diabetes mellitus, limited to breakdown of skin 12/05/20182019 End stage kidney disease 11/06/2017 020 Overview: Has been added to [facility] 12/25/2017 Hypocalcemia 07/31/2017 03/07/2018 Fracture of forearm, closed 01/25/201609/05 Chronic 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 02/2806/06/2020 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 08/31/2014 08/21/2018 Sebaceous cyst 04/24/2007 09/20/2016 documented as of this encounter (statuses as of 02/06/2022) [facility] Narrative* Problem Noted Date Resolved Date Chronic pain of right knee 12/05/201806/06 Diabetic ulcer of toe of rig ht foot associated with type 2 diabetes mellitus, limited to breakdown of skin 12/05/20182019 End stage kidney disease 11/06/2017 020 Overview: Has been added to [facility] 12/25/2017 Hypocalcemia 07/31/2017 03/07/2018 Fracture of forearm, closed 01/25/201609/05 Chronic 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 02/2806/06/2020 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 08/31/2014 08/21/2018 Sebaceous cyst 04/24/2007 09/20/2016 documented as of this encounter (statuses as of 03/05/2022) [facility] Narrative* Problem Noted Date Resolved Date Chronic pain of right knee 12/05/201806/06 Diabetic ulcer of toe of rig ht foot associated with type 2 diabetes mellitus, limited to breakdown of skin 12/05/20182019 End stage kidney disease 11/06/2017 020 Overview: Has been added to [facility] 12/25/2017 Hypocalcemia 07/31/2017 03/07/2018 Fracture of forearm, closed 01/25/201609/05 Chronic 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 02/2806/06/2020 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 08/31/2014 08/21/2018 Sebaceous cyst 04/24/2007 09/20/2016 documented as of this encounter (statuses as of 04/11/2022) [facility] Narrative* Problem Noted Date Resolved Date Chronic pain of right knee 12/05/201806/06 Diabetic ulcer of toe of rig ht foot associated with type 2 diabetes mellitus, limited to breakdown of skin 12/05/20182019 End stage kidney disease 11/06/2017 020 Overview: Has been added to [facility] 12/25/2017 Hypocalcemia 07/31/2017 03/07/2018 Fracture of forearm, closed 01/25/201609/05 Chronic 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 02/2806/06/2020 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 08/31/2014 08/21/2018 Sebaceous cyst 04/24/2007 09/20/2016 documented as of this encounter (statuses as of 04/23/2022) [facility] Narrative* Problem Noted Date Resolved Date Chronic pain of right knee 12/05/201806/06 Diabetic ulcer of toe of rig ht foot associated with type 2 diabetes mellitus, limited to breakdown of skin 12/05/20182019 End stage kidney disease 11/06/2017 020 Overview: Has been added to [facility] 12/25/2017 Hypocalcemia 07/31/2017 03/07/2018 Fracture of forearm, closed 01/25/201609/05 Chronic 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 02/2806/06/2020 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 08/31/2014 08/21/2018 Sebaceous cyst 04/24/2007 09/20/2016 documented as of this encounter (statuses as of 05/14/2022) [facility] Narrative* Problem Noted Date Resolved Date Chronic pain of right knee 12/05/201806/06 Diabetic ulcer of toe of rig ht foot associated with type 2 diabetes mellitus, limited to breakdown of skin 12/05/20182019 End stage kidney disease 11/06/2017 020 Overview: Has been added to [facility] 12/25/2017 Hypocalcemia 07/31/2017 03/07/2018 Fracture of forearm, closed 01/25/201609/05 Chronic 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 02/2806/06/2020 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 08/31/2014 08/21/2018 Sebaceous cyst 04/24/2007 09/20/2016 documented as of this encounter (statuses as of 06/03/2022) [facility] Narrative* Problem Noted Date Resolved Date Chronic pain of right knee 12/05/201806/06 Diabetic ulcer of toe of rig ht foot associated with type 2 diabetes mellitus, limited to breakdown of skin 12/05/20182019 End stage kidney disease 11/06/2017 020 Overview: Has been added to [facility] 12/25/2017 Hypocalcemia 07/31/2017 03/07/2018 Fracture of forearm, closed 01/25/201609/05 Chronic 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 02/2806/06/2020 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 08/31/2014 08/21/2018 Sebaceous cyst 04/24/2007 09/20/2016 documented as of this encounter (statuses as of 06/29/2022) [facility] Narrative* Problem Noted Date Resolved Date Chronic pain of right knee 12/05/201806/06 Diabetic ulcer of toe of rig ht foot associated with type 2 diabetes mellitus, limited to breakdown of skin 12/05/20182019 End stage kidney disease 11/06/2017 020 Overview: Has been added to [facility] 12/25/2017 Hypocalcemia 07/31/2017 03/07/2018 Fracture of forearm, closed 01/25/201609/05 Chronic 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 02/2806/06/2020 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 08/31/2014 08/21/2018 Sebaceous cyst 04/24/2007 09/20/2016 documented as of this encounter (statuses as of 08/06/2022) [facility] Narrative* Problem Noted Date Resolved Date Chronic pain of right knee 12/05/201806/06 Diabetic ulcer of toe of rig ht foot associated with type 2 diabetes mellitus, limited to breakdown of skin 12/05/20182019 End stage kidney disease 11/06/2017 020 Overview: Has been added to [facility] 12/25/2017 Hypocalcemia 07/31/2017 03/07/2018 Fracture of forearm, closed 01/25/201609/05 Chronic 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 02/2806/06/2020 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 08/31/2014 08/21/2018 Sebaceous cyst 04/24/2007 09/20/2016 documented as of this encounter (statuses as of 09/12/2022) [facility] Narrative* Problem Noted Date Resolved Date Chronic pain of right knee 12/05/201806/06 Diabetic ulcer of toe of rig ht foot associated with type 2 diabetes mellitus, limited to breakdown of skin 12/05/20182019 End stage kidney disease 11/06/2017 020 Overview: Has been added to [facility] 12/25/2017 Hypocalcemia 07/31/2017 03/07/2018 Fracture of forearm, closed 01/25/201609/05 Chronic 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 02/2806/06/2020 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 08/31/2014 08/21/2018 Sebaceous cyst 04/24/2007 09/20/2016 documented as of this encounter (statuses as of 09/26/2022) [facility] Narrative* Problem Noted Date Resolved Date Chronic pain of right knee 12/05/201806/06 Diabetic ulcer of toe of rig ht foot associated with type 2 diabetes mellitus, limited to breakdown of skin 12/05/20182019 End stage kidney disease 11/06/2017 020 Overview: Has been added to [facility] 12/25/2017 Hypocalcemia 07/31/2017 03/07/2018 Fracture of forearm, closed 01/25/201609/05 Chronic 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 02/2806/06/2020 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 08/31/2014 08/21/2018 Sebaceous cyst 04/24/2007 09/20/2016 documented as of this encounter (statuses as of 09/29/2022) [facility] Narrative* Problem Noted Date Resolved Date Chronic pain of right knee 12/05/201806/06 Diabetic ulcer of toe of rig ht foot associated with type 2 diabetes mellitus, limited to breakdown of skin 12/05/20182019 End stage kidney disease 11/06/2017 020 Overview: Has been added to [facility] 12/25/2017 Hypocalcemia 07/31/2017 03/07/2018 Fracture of forearm, closed 01/25/201609/05 Chronic 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 02/2806/06/2020 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 08/31/2014 08/21/2018 Sebaceous cyst 04/24/2007 09/20/2016 documented as of this encounter (statuses as of 10/01/2022) [facility] Narrative* Problem Noted Date Resolved Date Chronic pain of right knee 12/05/201806/06 Diabetic ulcer of toe of rig ht foot associated with type 2 diabetes mellitus, limited to breakdown of skin 12/05/20182019 End stage kidney disease 11/06/2017 020 Overview: Has been added to [facility] 12/25/2017 Hypocalcemia 07/31/2017 03/07/2018 Fracture of forearm, closed 01/25/201609/05 Chronic 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 02/2806/06/2020 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 08/31/2014 08/21/2018 Sebaceous cyst 04/24/2007 09/20/2016 documented as of this encounter (statuses as of 10/02/2022) [facility]arrative* Problem Noted Date Resolved Date Chronic pain of right knee 12/05/201806/06 Diabetic ulcer of toe of rig ht foot associated with type 2 diabetes mellitus, limited to breakdown of skin 12/05/20182019 End stage kidney disease 11/06/2017 020 Overview: Has been added to [facility] 12/25/2017 Hypocalcemia 07/31/2017 03/07/2018 Fracture of forearm, closed 01/25/201609/05 Chronic 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 02/2806/06/2020 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 08/31/2014 08/21/2018 Sebaceous cyst 04/24/2007 09/20/2016 documented as of this encounter (statuses as of 11/02/2022) [facility]arrative* Problem Noted Date Resolved Date Chronic pain of right knee 12/05/201806/06 Diabetic ulcer of toe of rig ht foot associated with type 2 diabetes mellitus, limited to breakdown of skin 12/05/20182019 End stage kidney disease 11/06/2017 020 Overview: Has been added to [facility] 12/25/2017 Hypocalcemia 07/31/2017 03/07/2018 Fracture of forearm, closed 01/25/201609/05 Chronic 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 02/2806/06/2020 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 08/31/2014 08/21/2018 Sebaceous cyst 04/24/2007 09/20/2016 documented as of this encounter (statuses as of 11/05/2022) [facility] Narrative* Problem Noted Date Resolved Date Chronic pain of right knee 12/05/201806/06 Diabetic ulcer of toe of rig ht foot associated with type 2 diabetes mellitus, limited to breakdown of skin 12/05/20182019 End stage kidney disease 11/06/2017 020 Overview: Has been added to [facility] 12/25/2017 Hypocalcemia 07/31/2017 03/07/2018 Fracture of forearm, closed 01/25/201609/05 Chronic 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 02/2806/06/2020 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 08/31/2014 08/21/2018 Sebaceous cyst 04/24/2007 09/20/2016 documented as of this encounter (statuses as of 11/20/2022) [facility] Narrative* Problem Noted Date Resolved Date Chronic pain of right knee 12/05/201806/06 Diabetic ulcer of toe of rig ht foot associated with type 2 diabetes mellitus, limited to breakdown of skin 12/05/20182019 End stage kidney disease 11/06/2017 020 Overview: Has been added to [facility] 12/25/2017 Hypocalcemia 07/31/2017 03/07/2018 Fracture of forearm, closed 01/25/201609/05 Chronic 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 02/2806/06/2020 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 08/31/2014 08/21/2018 Sebaceous cyst 04/24/2007 09/20/2016 documented as of this encounter (statuses as of 12/07/2022) [facility]arrative* Problem Noted Date Resolved Date Chronic pain of right knee 12/05/201806/06 Diabetic ulcer of toe of rig ht foot associated with type 2 diabetes mellitus, limited to breakdown of skin 12/05/20182019 End stage kidney disease 11/06/2017 020 Overview: Has been added to [facility] 12/25/2017 Hypocalcemia 07/31/2017 03/07/2018 Fracture of forearm, closed 01/25/201609/05 Chronic 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 02/2806/06/2020 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 08/31/2014 08/21/2018 Sebaceous cyst 04/24/2007 09/20/2016 documented as of this encounter (statuses as of 12/25/2022) [facility]arr[facility]* Problem Noted Date Resolved Date Chronic pain of right knee 12/05/201806/06 Diabetic ulcer of toe of rig ht foot associated with type 2 diabetes mellitus, limited to breakdown of skin 12/05/20182019 End stage kidney disease 11/06/2017 020 Overview: Has been added to [facility] 12/25/2017 Hypocalcemia 07/31/2017 03/07/2018 Fracture of forearm, closed 01/25/201609/05 Chronic 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 02/2806/06/2020 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 08/31/2014 08/21/2018 Sebaceous cyst 04/24/2007 09/20/2016 documented as of this encounter (statuses as of 12/26/2022) [facility]arrative* Problem Noted Date Resolved Date Chronic pain of right knee 12/05/201806/06 Diabetic ulcer of toe of rig ht foot associated with type 2 diabetes mellitus, limited to breakdown of skin 12/05/20182019 End stage kidney disease 11/06/2017 020 Overview: Has been added to [facility] 12/25/2017 Hypocalcemia 07/31/2017 03/07/2018 Fracture of forearm, closed 01/25/201609/05 Chronic 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 02/2806/06/2020 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 08/31/2014 08/21/2018 Sebaceous cyst 04/24/2007 09/20/2016 documented as of this encounter (statuses as of 12/26/2022) [facility] Narrative* Problem Noted Date Resolved Date Chronic pain of right knee 12/05/201806/06 Diabetic ulcer of toe of rig ht foot associated with type 2 diabetes mellitus, limited to breakdown of skin 12/05/20182019 End stage kidney disease 11/06/2017 020 Overview: Has been added to [facility] 12/25/2017 Hypocalcemia 07/31/2017 03/07/2018 Fracture of forearm, closed 01/25/201609/05 Chronic 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 02/2806/06/2020 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 08/31/2014 08/21/2018 Sebaceous cyst 04/24/2007 09/20/2016 documented as of this encounter (statuses as of 12/27/2022) [facility]* Problem Noted Date Resolved Date Chronic pain of right knee 12/05/201806/06 Diabetic ulcer of toe of rig ht foot associated with type 2 diabetes mellitus, limited to breakdown of skin 12/05/20182019 End stage kidney disease 11/06/2017 020 Overview: Has been added to [facility] 12/25/2017 Hypocalcemia 07/31/2017 03/07/2018 Fracture of forearm, closed 01/25/201609/05 Chronic 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 02/2806/06/2020 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 08/31/2014 08/21/2018 Sebaceous cyst 04/24/2007 09/20/2016 documented as of this encounter (statuses as of 01/08/2023) [facility]arrative* Problem Noted Date Diagnosed Date Resolved Date Chronic pain of right knee 12/05/201808/06/2019 Diabetic ulcer of toe of rig ht foot associated with type 2 diabetes mellitus, limited to breakdown of skin 12/05/2018 06/06/2020 End stage kidney disease 11/06/2017 Overview: Has been added to [facility] 12/25/2017 Hypocalcemia 07/31/2017 03/07/2018 Fracture of forearm, closed 01/25/2016 09/20/2016 Chronic 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 02/28/2015 06/06/2020 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 08/31/2014 08/21/2018 Sebaceous cyst 04/24/2007 09/20/2016 documented as of this encounter (statuses as of 01/24/2023) [facility]* Problem Noted Date Diagnosed Date Resolved Date Chronic pain of right knee 12/05/201808/06/2019 Diabetic ulcer of toe of rig ht foot associated with type 2 diabetes mellitus, limited to breakdown of skin 12/05/2018 06/06/2020 End stage kidney disease 11/06/2017 Overview: Has been added to [facility] 12/25/2017 Hypocalcemia 07/31/2017 03/07/2018 Fracture of forearm, closed 01/25/2016 09/20/2016 Chronic 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 02/28/2015 06/06/2020 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 08/31/2014 08/21/2018 Sebaceous cyst 04/24/2007 09/20/2016 documented as of this encounter (statuses as of 01/30/2023) [facility] Narrative* Problem Noted Date Diagnosed Date Resolved Date Chronic pain of right knee 12/05/2018 1 08/06/2019 Diabetic ulcer of toe of rig ht foot associated with type 2 diabetes mellitus, limited to breakdown of skin 12/05/2018 06/06/2020 End stage kidney disease 11/06/2017 Overview: Has been added to [facility] 12/25/2017 Hypocalcemia 07/31/2017 03/07/2018 Fracture of forearm, closed 01/25/2016 09/20/2016 Chronic 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 02/28/2015 06/06/2020 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 08/31/2014 08/21/2018 Sebaceous cyst 04/24/2007 09/20/2016 documented as of this encounter (statuses as of 02/06/2023) [facility] Narrative* Problem Noted Date Diagnosed Date Resolved Date Chronic pain of right knee 12/05/2018 1 08/06/2019 Diabetic ulcer of toe of rig ht foot associated with type 2 diabetes mellitus, limited to breakdown of skin 12/05/2018 06/06/2020 End stage kidney disease 11/06/2017 Overview: Has been added to [facility] 12/25/2017 Hypocalcemia 07/31/2017 03/07/2018 Fracture of forearm, closed 01/25/2016 09/20/2016 Chronic 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 02/28/2015 06/06/2020 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 08/31/2014 08/21/2018 Sebaceous cyst 04/24/2007 09/20/2016 documented as of this encounter (statuses as of 02/14/2023) [facility] Narrative* Problem Noted Date Diagnosed Date Resolved Date Chronic pain of right knee 12/05/2018 1 08/06/2019 Diabetic ulcer of toe of rig ht foot associated with type 2 diabetes mellitus, limited to breakdown of skin 12/05/2018 06/06/2020 End stage kidney disease 11/06/2017 Overview: Has been added to [facility] 12/25/2017 Hypocalcemia 07/31/2017 03/07/2018 Fracture of forearm, closed 01/25/2016 09/20/2016 Chronic 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 02/28/2015 06/06/2020 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 08/31/2014 08/21/2018 Sebaceous cyst 04/24/2007 09/20/2016 documented as of this encounter (statuses as of 02/26/2023) [facility]arr[facility]* Problem Noted Date Diagnosed Date Resolved Date Chronic pain of right knee 12/05/201808/06/2019 Diabetic ulcer of toe of rig ht foot associated with type 2 diabetes mellitus, limited to breakdown of skin 12/05/2018 06/06/2020 End stage kidney disease 11/06/2017 Overview: Has been added to [facility] 12/25/2017 Hypocalcemia 07/31/2017 03/07/2018 Fracture of forearm, closed 01/25/2016 09/20/2016 Chronic 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 02/28/2015 06/06/2020 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 08/31/2014 08/21/2018 Sebaceous cyst 04/24/2007 09/20/2016 documented as of this encounter (statuses as of 03/07/2023) [facility] History of Past illness Narrative* Problem Noted Date Diagnosed Date Resolved Date Chronic pain of right knee 12/05/2018 1 08/06/2019 Diabetic ulcer of toe of rig ht foot associated with type 2 diabetes mellitus, limited to breakdown of skin 12/05/2018 06/06/2020 End stage kidney disease 11/06/2017 Overview: Has been added to [facility] 12/25/2017 Hypocalcemia 07/31/2017 03/07/2018 Fracture of forearm, closed 01/25/2016 09/20/2016 Chronic 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 02/28/2015 06/06/2020 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 08/31/2014 08/21/2018 Sebaceous cyst 04/24/2007 09/20/2016 documented as of this encounter (statuses as of 03/13/2023) [facility] History of Past illness Narrative* Problem Noted Date Diagnosed Date Resolved Date Chronic pain of right knee 12/05/2018 1 08/06/2019 Diabetic ulcer of toe of rig ht foot associated with type 2 diabetes mellitus, limited to breakdown of skin 12/05/2018 06/06/2020 End stage kidney disease 11/06/2017 Overview: Has been added to [facility] 12/25/2017 Hypocalcemia 07/31/2017 03/07/2018 Fracture of forearm, closed 01/25/2016 09/20/2016 Chronic 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 02/28/2015 06/06/2020 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 08/31/2014 08/21/2018 Sebaceous cyst 04/24/2007 09/20/2016 documented as of this encounter (statuses as of 03/13/2023) [facility] History of Past illness Narrative* Problem Noted Date Diagnosed Date Resolved Date Chronic pain of right knee 12/05/2018 1 08/06/2019 Diabetic ulcer of toe of rig ht foot associated with type 2 diabetes mellitus, limited to breakdown of skin 12/05/2018 06/06/2020 End stage kidney disease 11/06/2017 Overview: Has been added to [facility] 12/25/2017 Hypocalcemia 07/31/2017 03/07/2018 Fracture of forearm, closed 01/25/2016 09/20/2016 Chronic 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 02/28/2015 06/06/2020 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 08/31/2014 08/21/2018 Sebaceous cyst 04/24/2007 09/20/2016 documented as of this encounter (statuses as of 03/19/2023) [facility] History of Past illness Narrative* Problem Noted Date Diagnosed Date Resolved Date Chronic pain of right knee 12/05/2018 1 08/06/2019 Diabetic ulcer of toe of rig ht foot associated with type 2 diabetes mellitus, limited to breakdown of skin 12/05/2018 06/06/2020 End stage kidney disease 11/06/2017 Overview: Has been added to [facility] 12/25/2017 Hypocalcemia 07/31/2017 03/07/2018 Fracture of forearm, closed 01/25/2016 09/20/2016 Chronic 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 02/28/2015 06/06/2020 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 08/31/2014 08/21/2018 Sebaceous cyst 04/24/2007 09/20/2016 documented as of this encounter (statuses as of 03/25/2023) [facility] History of Past illness Narrative* Problem Noted Date Diagnosed Date Resolved Date Chronic pain of right knee 12/05/2018 1 08/06/2019 Diabetic ulcer of toe of rig ht foot associated with type 2 diabetes mellitus, limited to breakdown of skin 12/05/2018 06/06/2020 End stage kidney disease 11/06/2017 Overview: Has been added to [facility] 12/25/2017 Hypocalcemia 07/31/2017 03/07/2018 Fracture of forearm, closed 01/25/2016 09/20/2016 Chronic 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 02/28/2015 06/06/2020 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 08/31/2014 08/21/2018 Sebaceous cyst 04/24/2007 09/20/2016 documented as of this encounter (statuses as of 04/01/2023) [facility] History of Past illness Narrative* Problem Noted Date Diagnosed Date Resolved Date Chronic pain of right knee 12/05/2018 1 08/06/2019 Diabetic ulcer of toe of rig ht foot associated with type 2 diabetes mellitus, limited to breakdown of skin 12/05/2018 06/06/2020 End stage kidney disease 11/06/2017 Overview: Has been added to [facility] 12/25/2017 Hypocalcemia 07/31/2017 03/07/2018 Fracture of forearm, closed 01/25/2016 09/20/2016 Chronic 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 02/28/2015 06/06/2020 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 08/31/2014 08/21/2018 Sebaceous cyst 04/24/2007 09/20/2016 documented as of this encounter (statuses as of 05/09/2023) [facility] History of Past illness Narrative* Problem Noted Date Diagnosed Date Resolved Date Chronic pain of right knee 12/05/2018 1 08/06/2019 Diabetic ulcer of toe of rig ht foot associated with type 2 diabetes mellitus, limited to breakdown of skin 12/05/2018 06/06/2020 End stage kidney disease 11/06/2017 Overview: Has been added to [facility] 12/25/2017 Hypocalcemia 07/31/2017 03/07/2018 Fracture of forearm, closed 01/25/2016 09/20/2016 Chronic 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 02/28/2015 06/06/2020 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 08/31/2014 08/21/2018 Sebaceous cyst 04/24/2007 09/20/2016 documented as of this encounter (statuses as of 05/21/2023) [facility] History of Past illness Narrative* Problem Noted Date Diagnosed Date Resolved Date Chronic pain of right knee 12/05/2018 1 08/06/2019 Diabetic ulcer of toe of rig ht foot associated with type 2 diabetes mellitus, limited to breakdown of skin 12/05/2018 06/06/2020 End stage kidney disease 11/06/2017 Overview: Has been added to [facility] 12/25/2017 Hypocalcemia 07/31/2017 03/07/2018 Fracture of forearm, closed 01/25/2016 09/20/2016 Chronic 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 02/28/2015 06/06/2020 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 08/31/2014 08/21/2018 Sebaceous cyst 04/24/2007 09/20/2016 documented as of this encounter (statuses as of 08/28/2023) [facility] History of Past illness Narrative* Problem Noted Date Diagnosed Date Resolved Date Chronic pain of right knee 12/05/2018 1 08/06/2019 Diabetic ulcer of toe of rig ht foot associated with type 2 diabetes mellitus, limited to breakdown of skin 12/05/2018 06/06/2020 End stage kidney disease 11/06/2017 Overview: Has been added to [facility] 12/25/2017 Hypocalcemia 07/31/2017 03/07/2018 Fracture of forearm, closed 01/25/2016 09/20/2016 Chronic 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 02/28/2015 06/06/2020 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 08/31/2014 08/21/2018 Sebaceous cyst 04/24/2007 09/20/2016 documented as of this encounter (statuses as of 09/13/2023) [facility] History of Past illness Narrative* Problem Noted Date Diagnosed Date Resolved Date Chronic pain of right knee 12/05/2018 1 08/06/2019 Diabetic ulcer of toe of rig ht foot associated with type 2 diabetes mellitus, limited to breakdown of skin 12/05/2018 06/06/2020 End stage kidney disease 11/06/2017 Overview: Has been added to [facility] 12/25/2017 Hypocalcemia 07/31/2017 03/07/2018 Fracture of forearm, closed 01/25/2016 09/20/2016 Chronic 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 02/28/2015 06/06/2020 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 08/31/2014 08/21/2018 Sebaceous cyst 04/24/2007 09/20/2016 documented as of this encounter (statuses as of 09/18/2023) [facility] History of Past illness Narrative* Problem Noted Date Diagnosed Date Resolved Date Chronic pain of right knee 12/05/2018 1 08/06/2019 Diabetic ulcer of toe of rig ht foot associated with type 2 diabetes mellitus, limited to breakdown of skin 12/05/2018 06/06/2020 End stage kidney disease 11/06/2017 Overview: Has been added to [facility] 12/25/2017 Hypocalcemia 07/31/2017 03/07/2018 Fracture of forearm, closed 01/25/2016 09/20/2016 Chronic 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 02/28/2015 06/06/2020 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 08/31/2014 08/21/2018 Sebaceous cyst 04/24/2007 09/20/2016 documented as of this encounter (statuses as of 09/23/2023) [facility] History of Past illness Narrative* Problem Noted Date Diagnosed Date Resolved Date Chronic pain of right knee 12/05/2018 1 08/06/2019 Diabetic ulcer of toe of rig ht foot associated with type 2 diabetes mellitus, limited to breakdown of skin 12/05/2018 06/06/2020 End stage kidney disease 11/06/2017 Overview: Has been added to [facility] 12/25/2017 Hypocalcemia 07/31/2017 03/07/2018 Fracture of forearm, closed 01/25/2016 09/20/2016 Chronic 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 02/28/2015 06/06/2020 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 08/31/2014 08/21/2018 Sebaceous cyst 04/24/2007 09/20/2016 documented as of this encounter (statuses as of 10/14/2023) [facility] History of Past illness Narrative* Problem Noted Date Diagnosed Date Resolved Date Chronic pain of right knee 12/05/2018 1 08/06/2019 Diabetic ulcer of toe of rig ht foot associated with type 2 diabetes mellitus, limited to breakdown of skin 12/05/2018 06/06/2020 End stage kidney disease 11/06/2017 Overview: Has been added to [facility] 12/25/2017 Hypocalcemia 07/31/2017 03/07/2018 Fracture of forearm, closed 01/25/2016 09/20/2016 Chronic 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 02/28/2015 06/06/2020 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 lAo Avina MD; Dr. Ryan Rahman MD;Dr. 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, with long-term current use of insulin ([facility]) 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, with long-term current use of insulin ([facility]) Hyperlipidemia, mixed Mixed hyperlipidemia Essential hypertension, benign Diabetes mellitus type 2 with neurological manifestations ([facility]) Type II or unspecified type diabetes mellitus with neurological manifestations, not stated as uncontrolled 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 Vitamin D deficiency Unspecified vitamin D deficiency Prostate disorder Unspecified disorder of prostate [facility] Diagnosis At increased risk of exposure to COVID-19 virus- Primary [facility] Diagnosis Medicare annual wellness visit, subsequent- Primary Routine general medical examination at a [facility] care facility 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, 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, with long-term current use of insulin (HCC) 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 disease, with long-term current use of insulin ([facility]) Diabetes mellitus type 2 with neurological manifestations [...] unspecified whether traumatic documented in this encounter [facility] note* Diagnosis Diabetes mellitus type 2 with neurological manifestations (HCC) Type II or unspecified type diabetes mellitus with neurological manifestations, not stated as uncontrolled documented in this encounter [facility] note* Diagnosis 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 disease, with long-term current use of insulin ([facility])- Primary documented in this encounter [facility] note* Diagnosis At increased risk of exposure to COVID-19 virus- Primary [facility] Diagnosis Diabetes mellitus type 2 with [...] forms of tremor [facility] Diagnosis Primary hypertension- Primary Unspecified essential hypertension [facility] Diagnosis Benign prostatic hyperplasia with nocturia [facility] Diagnosis Screening for colon cancer Special screening for malignant neoplasms, colon documented in this encounter [facility] note* Diagnosis Onset Date Resolution Status Personal history of colonic polyps acute [facility] Work Phone: Evaluation note* Diagnosis Hyperlipidemia, mixed- [...] vitamin D deficiency documented in this encounter [facility] note* Diagnosis Type 2 diabetes mellitus [...] Renal transplant recipient [facility]* Diagnosis Type II diabetes mellitus with [...] edema, with long-term current use of insulin ([facility]) Diabetes mellitus type 2 with neurological manifestations (HCC) Type II or unspecified type diabetes mellitus with neurological manifestations, not stated as uncontrolled [facility] Diagnosis 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 disease, with long-term current use of insulin ([facility])- Primary [facility] Diagnosis Diabetes mellitus type 2 with neurological manifestations (HCC) Type II or unspecified type diabetes mellitus with neurological manifestations, not stated as uncontrolled [facility] Diagnosis Onset Date Resolution Status Personal history of colonic polyps acute Right foot infection acute Cellulitis of foot, right ac [place] Osteomyelitis acute [facility] Work Phone: Evaluation note* Diagnosis Onset Date Resolution Status Personal history of colonic polyps acute Right foot infection acute Cellulitis of foot, right ac [place] Diabetes mellitus with diabetic polyneuropathy acute 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 layer exposed acute Osteomyelitis acute Right foot infection acute Type 2 diabetes mellitus with foot ulcer acute [facility] Work Phone: Evaluation note* Diagnosis Encounter for change or removal of surgical wound dressing- Primary documented in this encounter [facility] note* Diagnosis Chronic kidney disease (CKD), stage IV (severe) ([facility])- Primary Chronic kidney disease, Stage IV (severe) documented in this encounter [facility] note* Diagnosis Onset Date Resolution Status Right foot infection acute Diabetes mellitus with diabetic polyneuropathy acute Right foot infection acute Type 2 diabetes mellitus with foot ulcer acute [facility] Work Phone: Evaluation note* Diagnosis Type II diabetes mellitus with manifestations (HCC)- Primary Type II or unspecified type diabetes mellitus with other specified manifestations, not stated as uncontrolled [facility] Diagnosis Benign prostatic hyperplasia with nocturia [facility] Diagnosis Aftercare for amputation stump- Primary Other orthopedic aftercare [facility] Diagnosis Benign prostatic hyperplasia with nocturia [facility] Diagnosis Diabetes mellitus treated with insulin (HCC)- Primary [facility] Diagnosis Immunosuppressed status- Primary Unspecified disorder of immune mechanism Kidney replaced by transplant High risk medication use Encounter for long-term (current) use of other medications Aftercare following organ transplant Hypertension secondary to other renal disorders [facility] Diagnosis Essential hypertension, benign- Primary Hyperlipidemia, [...] tract symptoms present [facility] Diagnosis Essential hypertension, benign- Primary [facility]* Diagnosis Benign prostatic hyperplasia with nocturia [facility] Diagnosis Diabetes mellitus treated with insulin (HCC)- Primary [facility] Diagnosis Medicare annual wellness visit, subsequent- [...] stated as uncontrolled [facility] Diagnosis Diabetic foot (HCC)- Primary Type II or unspecified type diabetes mellitus with other specified manifestations, not stated as uncontrolled [facility]* Diagnosis Diabetes mellitus treated with insulin (HCC)- Primary [facility]* Diagnosis Diabetic eye exam (HCC)- Primary Type II or unspecified type diabetes mellitus without mention of complication, not stated as uncontrolled [facility]* Diagnosis Benign prostatic hyperplasia with nocturia [facility] Espino [facility] November 02, 2022 6:13am Note Date/Time November 02, 2022 6:1 3am [facility] Medical Records Department [address] [place] [address] History & Physical Exam 11/02/2212 MR#: [id number] Acct: [id number] Name: RODRI GALE Rep #:[id number] : 1955 67 From: Smooth Espino MD PCP: Dr. Alo Avina MD Status:[facility] Location: [place] [address] History and Physical Date of Admission: 11/02/22 Chief Complaint: c scope Sponge Buffer Required: No Accompanied by: Is patient in [...] [History Confirmed 09/27/22] Current gender identity: male [facility] Medical History?(Updated 09/27/22 @ 14:[address] [...] body habitus Other: Diffuse gross tremors noted HENAL Head: normal to inspection Eyes General: appearance [...] Avina MD; Dr. Smooth Espino MD~ Signed [facility] Work Phone: Reason for referral (narrative)No reason for referral information availableWMarietta Memorial Hospital Work Phone: Summary Purpose Family History No [...] Will No May 01 8:31am Power of Flame Hardening Machine Setter No May 01, 2019 8:31am Latest Code [...] Will No May 01 7:31am Power of Flame Hardening Machine Setter No May 01, 2019 7:31am Advance Directive Response Recorded Date/ Time Advance Directives No May 01, 2019 8:31am Living Will No October 29, 2022 3:40pm Power of Flame Hardening Machine Setter No October 29 3:40pm Advance Directive Response Recorded Date/ Time Advance Directives No May 01, 2019 8:31am Living Will No January 03, 2023 11:12am Power of Flame Hardening Machine Setter No January 03 11:12am Advance Directive Response Recorded Date/ Time Advance Directives No May 01, 2019 8:31am Living Will No January 03, 2023 2:39pm Power of Flame Hardening Machine Setter No January 03 2:39pm Advance Directive Response Recorded Date/ Time Advance Directives No May 01, 2019 7:31am Living Will No January 03, 2023 1:39pm Power of Flame Hardening Machine Setter No January 03 1:39pm Documents on File Type Date Recorded Patient Bung Dropper Expl anation Advance Directive(s) 06/20/2023 9:20 AM Documents on File Type Date Recorded Patient Bung Dropper Expl anation Advance Directive(s) 06/20/2023 9:20 AM [...] cancer Procedures CONSULT TO GENERAL SURGERY OFFICE/OUTPATIENT [facility] 60-74 MINUTES Alo Avina MD [address] [place] [id number] Referral ID Status Reason Start Date Expiration Date Visits Requested Visits Authorized [id number] Pending Review PCP Requested Referral 10/01/2022 10/01/2023 [...] manifestations (HCC) Procedures CONSULT TO ENDOCRINOLOGY OFFICE/OUTPATIENT [facility] 60-[place] [address] [place] [id number] Referral ID Status Reason Start Date Expiration Date Visits Requested Visits Authorized [id number] Pending Review PCP Requested Referral 12/06/2022 12/06/2023 1 1 Specialty Diagnoses / Procedures Referred By Hiro velasquez Referred To Contact Alo Avina MD [address] [place] [phone] Referral ID Status Reason Start Date Expiration Date V isits Requested Visits Authorized [id number] Pending Review 1 1 Specialty Diagnoses / Procedures Referred By Hiro velasquez Referred To Contact Diagnoses Type II diabetes mellitus with manifestations (HCC) Procedures CONSULT TO DIABETES EDUCATION DSME/MNT MEDICAL NUTRITION ASSMT&IVNTJ INDIV EACH 15 [place] MEDICAL NUTRITION ASSMT&IVNTJ INDIV EACH 15 [place] MEDICAL NUTRITION ASS[place]&IVNTJ INDIV EACH 15 [place] MEDICAL NUTRITION ASSMT&IVNTJ INDIV [place]ACH 15 [place] Claribel Cope APRN.FILM PROCESSOR [id number] [place] [address] Referral ID Status Reason Start Date Expiration Date Visits Requested Visits Authorized [id number] Pending Review PCP Requested Referral 12/26/2022 12/26/2023 1 1 Specialty Diagnoses / Procedures Referred By Contac t Referred To Contact Nephrology Diagnoses Chronic kidney disease (CKD), stage IV (severe) (HCC) Procedures CONSULT TO NEPHROLOGY OFFICE/OUTPATIENT [facility] 60-74 MINUTES Alo Avina MD [address] [place] [address] Referral ID Status Reason Start Date Expiration Date Visits Requested Visits Authorized [id number] Pending Review PCP Requested Referral 02/25/2023 02/25/2024 1 1 Specialty Diagnoses / Procedures Referred By Contac t Referred To Contact Claribel Cope APRN.FILM PROCESSOR [id number] [place] [id number] Referral ID Status Reason Start Date Expiration Date V isits Requested Visits Authorized [id number] Authorized 07/08/2023 07/07/2024 1 1 Specialty Diagnoses / Procedures Referred By Contac t Referred To Contact Podiatry Diagnoses Diabetic foot (HCC) Procedures CONSULT TO PODIATRY OFFICE/OUTPATIENT [facility] 60 MINUTES Alo Avina MD [address] [place] [address] Referral ID Status Reason Start Date Expiration Date Visits Requested Visits Authorized [id number] Authorized PCP Requested Referral 07/12/2024 07/11/2025 1 [...] Lemons MD [address] [place] [address] Referral ID Status Reason Start Date Expiration Date V isits Requested Visits Authorized [id number] New Request 10/12/2021 11/06/2022 1 1 Reason Comments Medicare Wellness Exam Specialty Diagnoses / Procedures Referred By Contac t Referred To Contact Family Practice / FAMILY MEDICINE Diagnoses Follow-up exam medicare 6 months Procedures OFFICE/OUTPATIENT ESTABLISHED MOD [facility] 30-39 MIN 4C [facility] [place] PA-C [address] [place] [address] Alo Avina MD [address] [place] [address] Referral ID Status Reason Start Date Expiration Date V isits Requested Visits Authorized [id number] Authorized 11/06/2021 07/07/2022 10 10 Reason Comments Medication Request Reason Onset Date Comments Refill Request 02/06/2022 Reason Onset Date Comments [facility] Health Navigation Outreach 03/05/2022 [employer] Medicare Reason Onset Date Comments Refill Request 04/11/2022 Reason Onset Date Comments [facility] Outreach 04/20/2022 [employer] Care Gaps Reason [...] MDM 60-74 MINUTES Alo Avina MD [address] [place] [address] Referral ID Status Reason Start Date Expiration Date Visits Requested Visits Authorized [id number] Pending Review PCP Requested Referral 12/06/2022 12/06/2023 1 1 Reason Comments Patient Update Reason Comments Results Reason Comments Results, Lab Reason Comments Home Health update Reason Comments diabetes type 2 Not using dexcom as its not covered by insurance Reason Comments Blood Sugar Readings Reason Onset Date Comments Refill Request 03/25/2023 Reason Comments Outside [id number] Ordered Reason Comments Outside Ophthalmology Reason Onset Date Comments Refill Request 09/18/2023 Reason Onset Date Comments Refill Request 09/23/2023 Reason Comments External / Eye exam Reason Comments Consult Opthalmology Reason Comments Orders Formulary change for insulin Reason Onset Date Comments Refill Request 11/06/2023 Reason Comments ext document Labs Reason Comments Orders Labs to be drawn at [facility] lab Reason Comments type 2 Diabetes [...] DATE CREATED AUTHOR AUTHOR'S ORGANIZ ATION 09/03/2020 [facility] DATE CREATED AUTHOR AUTHOR'S ORGANIZ ATION 11/15/2024 [facility] DATE CREATED AUTHOR AUTHOR'S ORGANIZ ATION 03/31/2025 [facility] DATE CREATED AUTHOR AUTHOR'S ORGANIZ ATION 04/29/2025 [facility] Source Comments (unrecognize d section and content) In the event this informatio n is protected by the Federal Confidentiality of Alcohol and Drug Abuse Patient Records regulations: The Federal rules restrict any use of the information to criminally investigate or prosecute any alcohol or drug abuse patient.[facility] the event this information is protected by the Federal Confidentiality of Alcohol and Drug Abuse Patient Records regulations: The Federal rules restrict any use of the information to criminally investigate or prosecute any alcohol or drug abuse patient.[facility]In the event this information is protected by the Federal Confidentiality of Alcohol and Drug Abuse Patient Records regulations: The Federal rules restrict any use of the information to criminally investigate or prosecute any alcohol or drug abuse patient.[facility]In the event this information is protected by the Federal Confidentiality of Alcohol and Drug Abuse Patient Records regulations: The Federal rules restrict any use of the information to criminally investigate or prosecute any alcohol or drug abuse patient.[facility]In the event this information is protected by the Federal Confidentiality of Alcohol and Drug Abuse Patient Records regulations: The Federal rules restrict any use of the information to criminally investigate or prosecute any alcohol or drug abuse patient.[facility] HospitalIn the event this information is protected by the Federal Confidentiality of Alcohol and Drug Abuse Patient Records regulations: The Federal rules restrict any use of the information to criminally investigate or prosecute any alcohol or drug abuse patient.[facility]In the event this information is protected by the Federal Confidentiality of Alcohol and Drug Abuse Patient Records regulations: The Federal rules restrict any use of the information to criminally investigate or prosecute any alcohol or drug abuse patient.[facility] HospitalIn the event this information is protected by the Federal Confidentiality of Alcohol and Drug Abuse Patient Records regulations: The Federal rules restrict any use of the information to criminally investigate or prosecute any alcohol or drug abuse patient.[facility] HospitalIn the event this information is protected by the Federal Confidentiality of Alcohol and Drug Abuse Patient Records regulations: The Federal rules restrict any use of the information to criminally investigate or prosecute any alcohol or drug abuse patient.[facility] HospitalIn the event this information is protected by the Federal Confidentiality of Alcohol and Drug Abuse Patient Records regulations: The Federal rules restrict any use of the information to criminally investigate or prosecute any alcohol or drug abuse patient.[facility] HospitalIn the event this information is protected by the Federal Confidentiality of Alcohol and Drug Abuse Patient Records regulations: The Federal rules restrict any use of the information to criminally investigate or prosecute any alcohol or drug abuse patient.[facility] HospitalIn the event this information is protected by the Federal Confidentiality of Alcohol and Drug Abuse Patient Records regulations: The Federal rules restrict any use of the information to criminally investigate or prosecute any alcohol or drug abuse patient.[facility] HospitalIn the event this information is protected by the Federal Confidentiality of Alcohol and Drug Abuse Patient Records regulations: The Federal rules restrict any use of the information to criminally investigate or prosecute any alcohol or drug abuse patient.[facility] HospitalIn the event this information is protected by the Federal Confidentiality of Alcohol and Drug Abuse Patient Records regulations: The Federal rules restrict any use of the information to criminally investigate or prosecute any alcohol or drug abuse patient.[facility] HospitalIn the event this information is protected by the Federal Confidentiality of Alcohol and Drug Abuse Patient Records regulations: The Federal rules restrict any use of the information to criminally investigate or prosecute any alcohol or drug abuse patient.[facility] HospitalIn the event this information is protected by the Federal Confidentiality of Alcohol and Drug Abuse Patient Records regulations: The Federal rules restrict any use of the information to criminally investigate or prosecute any alcohol or drug abuse patient.[facility] HospitalIn the event this information is protected by the Federal Confidentiality of Alcohol and Drug Abuse Patient Records regulations: The Federal rules restrict any use of the information to criminally investigate or prosecute any alcohol or drug abuse patient.[facility] HospitalIn the event this information is protected by the Federal Confidentiality of Alcohol and Drug Abuse Patient Records regulations: The Federal rules restrict any use of the information to criminally investigate or prosecute any alcohol or drug abuse patient.[facility] HospitalIn the event this information is protected by the Federal Confidentiality of Alcohol and Drug Abuse Patient Records regulations: The Federal rules restrict any use of the information to criminally investigate or prosecute any alcohol or drug abuse patient.[facility] HospitalIn the event this information is protected by the Federal Confidentiality of Alcohol and Drug Abuse Patient Records regulations: The Federal rules restrict any use of the information to criminally investigate or prosecute any alcohol or drug abuse patient.[facility] HospitalIn the event this information is protected by the Federal Confidentiality of Alcohol and Drug Abuse Patient Records regulations: The Federal rules restrict any use of the information to criminally investigate or prosecute any alcohol or drug abuse patient.[facility] HospitalIn the event this information is protected by the Federal Confidentiality of Alcohol and Drug Abuse Patient Records regulations: The Federal rules restrict any use of the information to criminally investigate or prosecute any alcohol or drug abuse patient.[facility] HospitalIn the event this information is protected by the Federal Confidentiality of Alcohol and Drug Abuse Patient Records regulations: The Federal rules restrict any use of the information to criminally investigate or prosecute any alcohol or drug abuse patient.[facility] HospitalIn the event this information is protected by the Federal Confidentiality of Alcohol and Drug Abuse Patient Records regulations: The Federal rules restrict any use of the information to criminally investigate or prosecute any alcohol or drug abuse patient.[facility] HospitalIn the event this information is protected by the Federal Confidentiality of Alcohol and Drug Abuse Patient Records regulations: The Federal rules restrict any use of the information to criminally investigate or prosecute any alcohol or drug abuse patient.[facility] HospitalIn the event this information is protected by the Federal Confidentiality of Alcohol and Drug Abuse Patient Records regulations: The Federal rules restrict any use of the information to criminally investigate or prosecute any alcohol or drug abuse patient.[facility] HospitalIn the event this information is protected by the Federal Confidentiality of Alcohol and Drug Abuse Patient Records regulations: The Federal rules restrict any use of the information to criminally investigate or prosecute any alcohol or drug abuse patient.[facility] HospitalIn the event this information is protected by the Federal Confidentiality of Alcohol and Drug Abuse Patient Records regulations: The Federal rules restrict any use of the information to criminally investigate or prosecute any alcohol or drug abuse patient.[facility] HospitalIn the event this information is protected by the Federal Confidentiality of Alcohol and Drug Abuse Patient Records regulations: The Federal rules restrict any use of the information to criminally investigate or prosecute any alcohol or drug abuse patient.[facility] HospitalIn the event this information is protected by the Federal Confidentiality of Alcohol and Drug Abuse Patient Records regulations: The Federal rules restrict any use of the information to criminally investigate or prosecute any alcohol or drug abuse patient.[facility] HospitalIn the event this information is protected by the Federal Confidentiality of Alcohol and Drug Abuse Patient Records regulations: The Federal rules restrict any use of the information to criminally investigate or prosecute any alcohol or drug abuse patient.[facility] HospitalIn the event this information is protected by the Federal Confidentiality of Alcohol and Drug Abuse Patient Records regulations: The Federal rules restrict any use of the information to criminally investigate or prosecute any alcohol or drug abuse patient.[facility] HospitalIn the event this information is protected by the Federal Confidentiality of Alcohol and Drug Abuse Patient Records regulations: The Federal rules restrict any use of the information to criminally investigate or prosecute any alcohol or drug abuse patient.[facility] HospitalIn the event this information is protected by the Federal Confidentiality of Alcohol and Drug Abuse Patient Records regulations: The Federal rules restrict any use of the information to criminally investigate or prosecute any alcohol or drug abuse patient.[facility] HospitalIn the event this information is protected by the Federal Confidentiality of Alcohol and Drug Abuse Patient Records regulations: The Federal rules restrict any use of the information to criminally investigate or prosecute any alcohol or drug abuse patient.[facility] HospitalIn the event this information is protected by the Federal Confidentiality of Alcohol and Drug Abuse Patient Records regulations: The Federal rules restrict any use of the information to criminally investigate or prosecute any alcohol or drug abuse patient.[facility] HospitalIn the event this information is protected by the Federal Confidentiality of Alcohol and Drug Abuse Patient Records regulations: The Federal rules restrict any use of the information to criminally investigate or prosecute any alcohol or drug abuse patient.[facility] HospitalIn the event this information is protected by the Federal Confidentiality of Alcohol and Drug Abuse Patient Records regulations: The Federal rules restrict any use of the information to criminally investigate or prosecute any alcohol or drug abuse patient.[facility] HospitalIn the event this information is protected by the Federal Confidentiality of Alcohol and Drug Abuse Patient Records regulations: The Federal rules restrict any use of the information to criminally investigate or prosecute any alcohol or drug abuse patient.[facility] HospitalIn the event this information is protected by the Federal Confidentiality of Alcohol and Drug Abuse Patient Records regulations: The Federal rules restrict any use of the information to criminally investigate or prosecute any alcohol or drug abuse patient.[facility] HospitalIn the event this information is protected by the Federal Confidentiality of Alcohol and Drug Abuse Patient Records regulations: The Federal rules restrict any use of the information to criminally investigate or prosecute any alcohol or drug abuse patient.[facility] HospitalIn the event this information is protected by the Federal Confidentiality of Alcohol and Drug Abuse Patient Records regulations: The Federal rules restrict any use of the information to criminally investigate or prosecute any alcohol or drug abuse patient.[facility] HospitalIn the event this information is protected by the Federal Confidentiality of Alcohol and Drug Abuse Patient Records regulations: The Federal rules restrict any use of the information to criminally investigate or prosecute any alcohol or drug abuse patient.[facility] HospitalIn the event this information is protected by the Federal Confidentiality of Alcohol and Drug Abuse Patient Records regulations: The Federal rules restrict any use of the information to criminally investigate or prosecute any alcohol or drug abuse patient.[facility] HospitalIn the event this information is protected by the Federal Confidentiality of Alcohol and Drug Abuse Patient Records regulations: The Federal rules restrict any use of the information to criminally investigate or prosecute any alcohol or drug abuse patient.[facility] HospitalIn the event this information is protected by the Federal Confidentiality of Alcohol and Drug Abuse Patient Records regulations: The Federal rules restrict any use of the information to criminally investigate or prosecute any alcohol or drug abuse patient.[facility] HospitalIn the event this information is protected by the Federal Confidentiality of Alcohol and Drug Abuse Patient Records regulations: The Federal rules restrict any use of the information to criminally investigate or prosecute any alcohol or drug abuse patient.[facility] HospitalIn the event this information is protected by the Federal Confidentiality of Alcohol and Drug Abuse Patient Records regulations: The Federal rules restrict any use of the information to criminally investigate or prosecute any alcohol or drug abuse patient.[facility] HospitalIn the event this information is protected by the Federal Confidentiality of Alcohol and Drug Abuse Patient Records regulations: The Federal rules restrict any use of the information to criminally investigate or prosecute any alcohol or drug abuse patient.[facility] HospitalIn the event this information is protected by the Federal Confidentiality of Alcohol and Drug Abuse Patient Records regulations: The Federal rules restrict any use of the information to criminally investigate or prosecute any alcohol or drug abuse patient.[facility] HospitalIn the event this information is protected by the Federal Confidentiality of Alcohol and Drug Abuse Patient Records regulations: The Federal rules restrict any use of the information to criminally investigate or prosecute any alcohol or drug abuse patient.[facility] HospitalIn the event this information is protected by the Federal Confidentiality of Alcohol and Drug Abuse Patient Records regulations: The Federal rules restrict any use of the information to criminally investigate or prosecute any alcohol or drug abuse patient.[facility] HospitalIn the event this information is protected by the Federal Confidentiality of Alcohol and Drug Abuse Patient Records regulations: The Federal rules restrict any use of the information to criminally investigate or prosecute any alcohol or drug abuse patient.[facility] HospitalIn the event this information is protected by the Federal Confidentiality of Alcohol and Drug Abuse Patient Records regulations: The Federal rules restrict any use of the information to criminally investigate or prosecute any alcohol or drug abuse patient.[facility] HospitalIn the event this information is protected by the Federal Confidentiality of Alcohol and Drug Abuse Patient Records regulations: The Federal rules restrict any use of the information to criminally investigate or prosecute any alcohol or drug abuse patient.[facility] HospitalIn the event this information is protected by the Federal Confidentiality of Alcohol and Drug Abuse Patient Records regulations: The Federal rules restrict any use of the information to criminally investigate or prosecute any alcohol or drug abuse patient.[facility] HospitalIn the event this information is protected by the Federal Confidentiality of Alcohol and Drug Abuse Patient Records regulations: The Federal rules restrict any use of the information to criminally investigate or prosecute any alcohol or drug abuse patient.[facility] HospitalIn the event this information is protected by the Federal Confidentiality of Alcohol and Drug Abuse Patient Records regulations: The Federal rules restrict any use of the information to criminally investigate or prosecute any alcohol or drug abuse patient.[facility] HospitalIn the event this information is protected by the Federal Confidentiality of Alcohol and Drug Abuse Patient Records regulations: The Federal rules restrict any use of the information to criminally investigate or prosecute any alcohol or drug abuse patient.[facility] HospitalIn the event this information is protected by the Federal Confidentiality of Alcohol and Drug Abuse Patient Records regulations: The Federal rules restrict any use of the information to criminally investigate or prosecute any alcohol or drug abuse patient.[facility] HospitalIn the event this information is protected by the Federal Confidentiality of Alcohol and Drug Abuse Patient Records regulations: The Federal rules restrict any use of the information to criminally investigate or prosecute any alcohol or drug abuse patient.[facility] HospitalIn the event this information is protected by the Federal Confidentiality of Alcohol and Drug Abuse Patient Records regulations: The Federal rules restrict any use of the information to criminally investigate or prosecute any alcohol or drug abuse patient.[facility] HospitalIn the event this information is protected by the Federal Confidentiality of Alcohol and Drug Abuse Patient Records regulations: The Federal rules restrict any use of the information to criminally investigate or prosecute any alcohol or drug abuse patient.[facility] HospitalIn the event this information is protected by the Federal Confidentiality of Alcohol and Drug Abuse Patient Records regulations: The Federal rules restrict any use of the information to criminally investigate or prosecute any alcohol or drug abuse patient.[facility] HospitalIn the event this information is protected by the Federal Confidentiality of Alcohol and Drug Abuse Patient Records regulations: The Federal rules restrict any use of the information to criminally investigate or prosecute any alcohol or drug abuse patient.[facility] HospitalIn the event this information is protected by the Federal Confidentiality of Alcohol and Drug Abuse Patient Records regulations: The Federal rules restrict any use of the information to criminally investigate or prosecute any alcohol or drug abuse patient.[facility] HospitalIn the event this information is protected by the Federal Confidentiality of Alcohol and Drug Abuse Patient Records regulations: The Federal rules restrict any use of the information to criminally investigate or prosecute any alcohol or drug abuse patient.[facility] HospitalIn the event this information is protected by the Federal Confidentiality of Alcohol and Drug Abuse Patient Records regulations: The Federal rules restrict any use of the information to criminally investigate or prosecute any alcohol or drug abuse patient.[facility] HospitalIn the event this information is protected by the Federal Confidentiality of Alcohol and Drug Abuse Patient Records regulations: The Federal rules restrict any use of the information to criminally investigate or prosecute any alcohol or drug abuse patient.[facility] HospitalIn the event this information is protected by the Federal Confidentiality of Alcohol and Drug Abuse Patient Records regulations: The Federal rules restrict any use of the information to criminally investigate or prosecute any alcohol or drug abuse patient.[facility] HospitalIn the event this information is protected by the Federal Confidentiality of Alcohol and Drug Abuse Patient Records regulations: The Federal rules restrict any use of the information to criminally investigate or prosecute any alcohol or drug abuse patient.[facility] HospitalIn the event this information is protected by the Federal Confidentiality of Alcohol and Drug Abuse Patient Records regulations: The Federal rules restrict any use of the information to criminally investigate or prosecute any alcohol or drug abuse patient.[facility] HospitalIn the event this information is protected by the Federal Confidentiality of Alcohol and Drug Abuse Patient Records regulations: The Federal rules restrict any use of the information to criminally investigate or prosecute any alcohol or drug abuse patient.[facility] HospitalIn the event this information is protected by the Federal Confidentiality of Alcohol and Drug Abuse Patient Records regulations: The Federal rules restrict any use of the information to criminally investigate or prosecute any alcohol or drug abuse patient.[facility] HospitalIn the event this information is protected by the Federal Confidentiality of Alcohol and Drug Abuse Patient Records regulations: The Federal rules restrict any use of the information to criminally investigate or prosecute any alcohol or drug abuse patient.[facility] HospitalIn the event this information is protected by the Federal Confidentiality of Alcohol and Drug Abuse Patient Records regulations: The Federal rules restrict any use of the information to criminally investigate or prosecute any alcohol or drug abuse patient.[facility] HospitalIn the event this information is protected by the Federal Confidentiality of Alcohol and Drug Abuse Patient Records regulations: The Federal rules restrict any use of the information to criminally investigate or prosecute any alcohol or drug abuse patient.[facility]In the event this information is protected by the Federal Confidentiality of Alcohol and Drug Abuse Patient Records regulations: The Federal rules restrict any use of the information to criminally investigate or prosecute any alcohol or drug abuse patient.[facility]In the event this information is protected by the Federal Confidentiality of Alcohol and Drug Abuse Patient Records regulations: The Federal rules restrict any use of the information to criminally investigate or prosecute any alcohol or drug abuse patient.[facility]In the event this information is protected by the Federal Confidentiality of Alcohol and Drug Abuse Patient Records regulations: The Federal rules restrict any use of the information to criminally investigate or prosecute any alcohol or drug abuse patient.[facility] HospitalIn the event this information is protected by the Federal Confidentiality of Alcohol and Drug Abuse Patient Records regulations: The Federal rules restrict any use of the information to criminally investigate or prosecute any alcohol or drug abuse patient.[facility] HospitalIn the event this information is protected by the Federal Confidentiality of Alcohol and Drug Abuse Patient Records regulations: The Federal rules restrict any use of the information to criminally investigate or prosecute any alcohol or drug abuse patient.[facility] HospitalIn the event this information is protected by the Federal Confidentiality of Alcohol and Drug Abuse Patient Records regulations: The Federal rules restrict any use of the information to criminally investigate or prosecute any alcohol or drug abuse patient.[facility] HospitalIn the event this information is protected by the Federal Confidentiality of Alcohol and Drug Abuse Patient Records regulations: The Federal rules restrict any use of the information to criminally investigate or prosecute any alcohol or drug abuse patient.[facility] HospitalIn the event this information is protected by the Federal Confidentiality of Alcohol and Drug Abuse Patient Records regulations: The Federal rules restrict any use of the information to criminally investigate or prosecute any alcohol or drug abuse patient.[facility] HospitalIn the event this information is protected by the Federal Confidentiality of Alcohol and Drug Abuse Patient Records regulations: The Federal rules restrict any use of the information to criminally investigate or prosecute any alcohol or drug abuse patient.[facility] HospitalIn the event this information is protected by the Federal Confidentiality of Alcohol and Drug Abuse Patient Records regulations: The Federal rules restrict any use of the information to criminally investigate or prosecute any alcohol or drug abuse patient.[facility] HospitalIn the event this information is protected by the Federal Confidentiality of Alcohol and Drug Abuse Patient Records regulations: The Federal rules restrict any use of the information to criminally investigate or prosecute any alcohol or drug abuse patient.[facility] HospitalIn the event this information is protected by the Federal Confidentiality of Alcohol and Drug Abuse Patient Records regulations: The Federal rules restrict any use of the information to criminally investigate or prosecute any alcohol or drug abuse patient.[facility] HospitalIn the event this information is protected by the Federal Confidentiality of Alcohol and Drug Abuse Patient Records regulations: The Federal rules restrict any use of the information to criminally investigate or prosecute any alcohol or drug abuse patient.[facility] HospitalIn the event this information is protected by the Federal Confidentiality of Alcohol and Drug Abuse Patient Records regulations: The Federal rules restrict any use of the information to criminally investigate or prosecute any alcohol or drug abuse patient.[facility] HospitalIn the event this information is protected by the Federal Confidentiality of Alcohol and Drug Abuse Patient Records regulations: The Federal rules restrict any use of the information to criminally investigate or prosecute any alcohol or drug abuse patient.[facility] Care Teams (unrecognized sec tion and content) Mattress Filling Machine Tender Relationship Specialty Start Date End Date Alo Avina MD [address] [place] [address] PCP - General Family Practice 05/17/21 Mattress Filling Machine Tender Relationship Specialty Start Date End Date Alo Avina MD [address] [place] [address] PCP - General Family Practice 05/17/21 Mattress Filling Machine Tender Relationship Specialty Start Date End Date Alo Avina MD [address] [place] [address] PCP - General Family Practice 05/17/21 Mattress Filling Machine Tender Relationship Specialty Start Date End Date Alo Avina MD [address] [place] [address] PCP - General Family Medicine 05/19/21 Abbie Rodriguez DO [address] [phone] Nephrology 11/20/19 Mattress Filling Machine Tender Relationship Specialty Start Date End Date Alo Avina MD [address] [place] [address] [place] [address] PCP - General Family Practice 05/17/21 Mattress Filling Machine Tender Relationship Specialty Start Date End Date Alo Avina MD [address] [place] [address] PCP - General Family Practice 05/17/21 Mattress Filling Machine Tender Relationship Specialty Start Date End Date Alo Avina MD [address] [place] [address] PCP - General Family Practice 05/17/21 Mattress Filling Machine Tender Relationship Specialty Start Date End Date Alo Avina MD [address] [place] [address] PCP - General Family Medicine 05/17/21 Mattress Filling Machine Tender Relationship Specialty [place] [address] [place] [address], [place] [address] PCP - General Family Medicine 05/17/21 Mattress Filling Machine Tender Relationship Specialty Start Date End Date Alo Avina MD [address] [place] [address] PCP - General Family Medicine 05/19/21 [place] [address] [place] [address] [phone] Nephrology 11/20/19 Mattress Filling Machine Tender Relationship Specialty Start Date End Date Alo Avina MD [address] [place] [address] PCP - General Family Medicine 05/17/21 Mattress Filling Machine Tender Relationship Specialty Start Date End Date Alo Avina MD [address] [place] [address] PCP - General Family Medicine 05/17/21 Mattress Filling Machine Tender Relationship Specialty [place] [address] [place] [address], [place] [address] PCP - General Family Medicine 05/17/21 Mattress Filling Machine Tender Relationship Specialty Start Date End Date Alo Avina MD [address] [place] [address] [place] [address] PCP - General Family Medicine 05/17/21 Team [...] Provid er, Referring Provider, Other Provider Active Mattress Filling Machine Tender Relationship Specialty Start Date End Date Alo Avina MD [address] [place] [address] PCP - General Family Medicine 05/17/21 Mattress Filling Machine Tender Relationship Specialty Start Date End Date Alo Avina MD [address] [place] [address] PCP - General Family Medicine 05/17/21 Team Status: Active Member Role Status Dates Dr. Jim Squires MD Attending Provider, Referring Provi gustavo Active Dr. Alo Avina MD Primary Care Provider Active Team Status: Inactive Member Role Status Dates Dr. Alo Avina MD Primary Care Provider, Attendi ng Provider Active Alo RIVERA MD Referring Provider Active Mattress Filling Machine Tender Relationship Specialty Start Date End Date Alo Avina MD [address] [place] [address] PCP - General Family Medicine 05/17/21 Mattress Filling Machine Tender Relationship Specialty Start Date End Date Alo Avina MD [address] [place] [address] PCP - General Family Medicine 05/17/21 Mattress Filling Machine Tender Relationship Specialty Start Date End Date Alo Avina MD [address] [place] [address] PCP - General Family Medicine 05/17/21 Mattress Filling Machine Tender Relationship Specialty Start Date End Date Alo Avina MD [address] [place] [address] PCP - General Family Medicine 05/17/21 Team [...] Dr. Lindsay Meza MD Attending Provider Active Mattress Filling Machine Tender Relationship Specialty Start Date End Date Alo Avina MD [address] [place] [address] PCP - General Family Medicine 05/17/21 Mattress Filling Machine Tender Relationship Specialty Start Date End Date Alo Avina MD [address] [place] [address] PCP - [facility] Medicine 05/17/21 Mattress Filling Machine Tender Relationship Specialty Start Date End Date Alo Avina MD [address] [place] [address] PCP - [facility] Medicine 05/17/21 Mattress Filling Machine Tender Relationship Specialty Start Date End Date Alo Avina MD [address] [place] [address] PCP - [facility] Medicine 05/17/21 Mattress Filling Machine Tender Relationship Specialty Start Date End Date Alo Avina MD [address] [place] [address] PCP - General Family Medicine 05/17/21 Team [...] Dr. Ryan Rahman MD Referring Provider Active Mattress Filling Machine Tender Relationship Specialty Start Date End Date Alo Avina MD [address] [place] [address] PCP - General Family Medicine 05/17/21 Mattress Filling Machine Tender Relationship Specialty Start Date End Date Alo Avina MD [address] [place] [address] PCP - General Family Medicine 05/17/21 Mattress Filling Machine Tender Relationship Specialty Start Date End Date Alo Avina MD [address] [place] [address] PCP - General Family Medicine 05/17/21 Team Status: Inactive Member Role Status Dates Dr. Jim Squires MD Attending Provider, Referring [facility] gustavo Active Dr. Alo Avina MD Primary Care Provider Active Dr. Judd Dey MD Other Provider Active Mattress Filling Machine Tender Relationship Specialty Start Date End Date Alo Avina MD [address] [place] [address] PCP - General Family Medicine 05/17/21 Team Status: Inactive Member Role Status Dates Dr. Alo Avina MD Primary Care Provider Active Dr. Judd Dey MD Attending Provider, Re [facility] Provider Active Mattress Filling Machine Tender Relationship Specialty Start Date End Date Alo Avina MD [address] [place] [address] PCP - General Family Medicine 05/17/21 Mattress Filling Machine Tender Relationship Specialty Start Date End Date Alo Avina MD [address] [place] [address] PCP - General Family Medicine 05/17/21 Mattress Filling Machine Tender Relationship Specialty Start Date End Date Alo Avina MD [address] [place] [address] PCP - General Family Medicine 05/17/21 Mattress Filling Machine Tender Relationship Specialty Start Date End Date Alo Avina MD [address] [place] [address] PCP - General Family Medicine 05/19/21 Abbie Rodriguez DO [address] [phone] Nephrology 11/20/19 Mattress Filling Machine Tender Relationship Specialty Start Date End Date Alo Avina MD [address] [place] [address] PCP - General Family Medicine 05/17/21 Mattress Filling Machine Tender Relationship Specialty Start Date End Date Alo Avina MD [address] [place] [address] PCP - General Family Medicine 05/17/21 Mattress Filling Machine Tender Relationship Specialty Start Date End Date Alo Avina MD [address] [place] [address] PCP - General Family Medicine 05/17/21 Mattress Filling Machine Tender Relationship Specialty Start Date End Date Alo Avina MD [address] [place] [address] PCP - General Family Medicine 05/17/21 Mattress Filling Machine Tender Relationship Specialty Start Date End Date Alo Avina MD [address] [place] [address] PCP - General Family Medicine 05/17/21 Mattress Filling Machine Tender Relationship Specialty Start Date End Date Alo Avina MD [address] [place] [address] PCP - General Family Medicine 05/17/21 Judd Dey MD [address] [phone] Internal Medicine 04/29/24 Mattress Filling Machine Tender Relationship Specialty Start Date End Date Alo Avina MD [address] [place], [place] 285[address]69 [phone] PCP - General Family Medicine 05/17/21 Judd Dey MD [address] [place] [address] [phone] Internal Medicine 04/29/24 Mattress Filling Machine Tender Relationship Specialty Start Date End Date Alo Avina MD [address] [place] [address] PCP - General Family Medicine 05/17/21 Judd Dey MD [address] [phone] Internal Medicine 04/29/24 Mattress Filling Machine Tender Relationship Specialty Start Date End Date Alo Avina MD [address] [place] [address] PCP - General Family Medicine 05/17/21 Judd Dey MD [address] [phone] Internal Medicine 04/29/24 Keri Day APRN.FILM PROCESSOR [address] [place], [place] [phone] [facility] 06/13/24 Crystal Nation PA-C [address] [place] [address] [facility] 06/13/24 Mattress Filling Machine Tender Relationship Specialty Start Date End Date Alo Avina MD [address] [place] [address] PCP - General Family Medicine 05/17/21 Judd Dey MD [facility] [address] [phone] Internal Medicine 04/29/24 Keri Day APRN.FILM PROCESSOR [address] [place] [address] [phone] [facility] 06/13/24 Crystal Nation PA-C [address] [place], [place] 576741 [facility] 06/13/24 Mattress Filling Machine Tender Relationship Specialty Start Date End Date Alo Avina MD [address] [place] [address] PCP - General Family Medicine 05/17/21 Judd Dey MD [facility] [address] [phone] Internal Medicine 04/29/24 Keri Day APRN.FILM PROCESSOR [address] [place] [address] Handy Worker Family [facility] 06/13/24 Crystal Nation PA-C [address] [place] [address] Handy Worker Family [facility] 06/13/24 Mattress Filling Machine Tender Relationship Specialty Start Date End Date Alo Avina MD [facility] [place] [address] PCP - General Family Medicine 05/17/21 Judd Dey MD [facility] [address] [phone] Internal Medicine 04/29/24 Keri Day, RECOVERY ROOM RN.FILM PROCESSOR [address] [place] [address] Handy Worker Family [facility] 06/13/24 Crystal Nation PA-C [address] [place] [address] Handy Worker [facility] 06/13/24 Mattress Filling Machine Tender Relationship Specialty Start Date End Date Alo Avina MD [address] [place] [address] PCP - General Family Medicine 05/17/21 Judd Dey MD [facility] [address] [phone] Internal Medicine 04/29/24 Keri Day, RECOVERY ROOM RN.FILM PROCESSOR [address] [place] [address] [place] [address] Handy Worker Family Medicine 06/13/24 Crystal Nation PA-C [address] [place] [address] Handy Worker Family [facility] 06/13/24 Mattress Filling Machine Tender Relationship Specialty Start Date End Date Alo Avina MD [address] [place] [address] PCP - General Family Medicine 05/17/21 Judd Dey MD [facility] [address] [phone] Internal Medicine 04/29/24 Keri Day APRN.FILM PROCESSOR [address] [place] [address] Handy Worker Family [facility] 06/13/24 Crystal Nation PA-C [address] [place] [address] Handy Worker Family [facility] 06/13/24 Mattress Filling Machine Tender Relationship Specialty Start Date End Date Alo Avina MD [address] [place] [address] PCP - General Family Medicine 05/17/21 Judd Dey MD [facility] [address] [phone] Internal Medicine 04/29/24 Keri Day APRN.FILM PROCESSOR [address] [place] [address] [facility] 06/13/24 Crystal Nation PA-C [address] [place], [place] 800531 [facility] 06/13/24 Mattress Filling Machine Tender Relationship Specialty Start Date End Date Alo Avina MD [address] [place], [place] [id number] PCP - General Family Medicine 05/17/21 Judd Dey MD [facility] [place] [address] [phone] Internal Medicine 04/29/24 Keri Day APRN.[facility] [address] [place] [address] 775201 [facility] 06/13/24 Crystal Nation PA-C [address] [place], [place] [phone] [facility] 06/13/24 Team Status: Active Member Role Status Dates Dr. Alo Avina MD Primary Care Provider Active Team Status: Inactive Member Role Status Dates Dr. Alo Avina MD Primary Care Provider Active Start: June 24, 2024 End: June 24, 2024 Dr. Alo Avina MD Attending Provider Active Start: June 24, [...] A pril 2024 End: October 19, 2024 Mattress Filling Machine Tender Relationship Specialty Start Date End Date Alo Avina MD [address] [place] [address] PCP - General Family Medicine 05/17/21 Judd Dey MD [facility] [address] [phone] Internal Medicine 04/29/24 Keri Day, DEMAR.FILM PROCESSOR [address] [place] [address] Handy Worker Family Medicine 06/13/24 Crystal Nation PA-C [address] [place] [address] Handy Worker Family Medicine 06/13/24 Mattress Filling Machine Tender Relationship Specialty Start Date End Date Alo Avina MD [facility] [place] [address] PCP - General Family Medicine 05/17/21 Judd Dey MD [address] [phone] Internal Medicine 04/29/24 Keri Day, RECOVERY ROOM RN.FILM PROCESSOR [address] [place] [address] Handy Worker Family Medicine 06/13/24 Crystal Nation PA-C [address] [place] [address] Handy Worker Family Medicine 06/13/24 Mattress Filling Machine Tender Relationship Specialty Start Date End Date Alo Avina MD [address] [place] [address] PCP - General Family Medicine 05/17/21 Judd Dey MD [facility] [address] [phone] Internal Medicine 04/29/24 Keri Day, DEMAR.FILM PROCESSOR [address] [place] [address] Handy Worker Family Medicine 12/07/24 Crystal Nation PA-C [address] [place] [address] Handy Worker Family [facility] 12/07/24 Mattress Filling Machine Tender Relationship Specialty [place] [address] [place] [address] PCP - General Family Medicine 05/17/21 Judd Dey MD [facility] [address] [phone] Internal Medicine 04/29/24 Keri Day, DEMAR.FILM PROCESSOR [address] [place] [address] Handy Worker Family Medicine 12/07/24 Crystal Nation PA-C [address] [place] [address] Handy Worker Family [facility] 12/07/24 Mattress Filling Machine Tender Relationship Specialty Start Date End Date Alo Avina MD [address] [place] [address] PCP - General Family Medicine 05/17/21 Judd Dey MD [address] [phone] Internal Medicine 04/29/24 Keri Day APRN.FILM PROCESSOR [address] [place] [address] Handy Worker Family [facility] 12/07/24 Crystal Nation PA-C [address] [place] [address] [facility] Mattress Filling Machine Tender Relationship Specialty Start Date End Date Alo Avina MD [address] [place] [address] PCP - General Family Medicine 05/17/21 Judd Dey MD [address] [phone] Internal Medicine 04/29/24 Keri Day APRN.FILM PROCESSOR [address] [place] [address] Handy Worker Family Medicine 12/07/24 Crystal Nation PA-C [address] [place] [address] [facility] 12/07/24 Goals (unrecognized section and content) Goals [...] BE BASED ON THE PRIMARY CLINICAL RECORDS. [facility] [employer] [facility]. provides no warranty or guarantee of the accuracy or completeness of information in this document.
[2025-06-24 08:12] LABS: PSA,Total- Diagnostic 1.82 ng/mL (0.00-4.00)
== END | disposition home or self-care (01) ==
PROVIDERS: PCP Family Medicine; Referring Provider Family Medicine; Visit Provider Family Medicine
DX: N42.9 Disorder of prostate, unspecified (principal)
CPT/HCPCS: 36415; 84153